=== PATIENT | female | born 1950 | race Caucasian/White ===

== ENCOUNTER 2021-04-09 13:44 | Emergency (ER) | payer MEDICARE, OTHER, SELFPAY ==
[2021-04-09 13:51] VITALS: BP 143/83; PULSE 114; RESP 16; TEMP 35.9; O2SAT 99; BMI 25.3
--- NOTE | 2021-04-09 14:45 | EKG12_ITS ---
Test Reason : DIZZINESS Blood Pressure : / mmHG Vent. Rate : 073 BPM Atrial Rate : 073 BPM P-R Int : 148 ms QRS Dur : 086 ms QT Int : 392 ms P-R-T Axes : 036 000 040 degrees QTc Int : 431 ms Normal sinus rhythm Low voltage QRS (Limb Leads) Confirmed by MARTIN WELSH, MARS ([id number]), social media editor RANCHO JULIAN ([id number]) on 04/13/2021 9:24:51 AM Referred By: BRANDEN Confirmed By:MARS SALAZAR MD
--- NOTE | 2021-04-09 14:46 | EX.ED.DYSGE1 ---
HPI History of Present Illness Chief Complaint: Dizziness Informant: patient Onset/Context/Timing Onset: Days (Approximately 10 days) Narrative Narrative: Patient presents with multiple complaints. She just moved from [place] to [place] 3 days ago. She reports a 10-day history of feeling lightheaded and dizzy. She reports a 20 pound weight loss and states that she has been eating well. She has noted increased urine output. She is on Lasix twice a day and this is unchanged. She complains of body pain. She denies fever, cough, congestion. Patient does state that she was packing boxes and carrying things heavier than what she should've been doing. [facility] Medical History (Updated 04/09/21 @ 16:[address] Beryl Wilde MD) Asthma Atrial fibrillation Diabetes Hypertension Allergy/AdvReac Type Severity Reaction Status Date / Time No Known Allergies Allergy Verified 04/09/21 15:09 Social History Smoking Status: Unknown if ever smoked ROS ROS ED Constitutional Constitutional ED: Denies chills or fever(s) Eyes Eyes: Denies change in vision ENT ENT ED: Denies sore throat Cardiovascular Cardiovascular: Denies chest pain Respiratory/Chest Respiratory/Chest: Reports dyspnea; Denies cough Gastrointestinal Gastrointestinal: Denies abdominal pain, diarrhea, nausea or vomiting Genitourinary Genitourinary ED: Denies dysuria Musculoskeletal Musculoskeletal: Reports arthralgias and myalgias; Denies back pain Integumentary Denies rash Neurologic Neurologic: Reports weakness; Denies headache(s) Allergic/Immunologic Allergic/Immunologic ED: Denies urticaria EXAM Physical Exam Const Vital Signs: 04/09/21 13:51 04/09/21 15:10 04/09/21 16:00 Temperature 96.6 F L Temperature Source Temporal Pulse Rate 114 H 71 Respiratory Rate 16 18 Respiratory Effort Short of Breath Blood Pressure 143/83 H 103/72 Blood Pressure Mean 103 82 Pulse Ox 99 93 Oxygen Delivery Method Room Air Room Air Positive well nourished and well developed General Appearance ED: well developed HEENT Reports normocephalic and head/scalp atraumatic Eyes PERRL and EOMs intact bilaterally Neck supple Chest Wall inspection of chest normal and palpation of chest normal Resp normal respiratory effort and clear to auscultation bilaterally Cardio regular rate and regular rhythm GI normal to inspection, nondistended, normoactive bowel sounds and non-tender Palpation: soft Extremity Extremity Narrative: Chronic venous skin changes to the bilateral lower extremity with no evidence of acute infection. No significant edema. No calf tenderness on exam. Neuro oriented x3 and no sensory deficits noted Sensorium / Orientation: alert Motor Exam: strength 5/5 throughout Psych mental status grossly normal Skin no rashes or lesions noted MDM MDM MDM Narrative Medical decision making narrative: Patient is placed on monitoring engineer. EKG, lab work, urinalysis obtained. Covid swab ordered. Lab Data Attestation: I reviewed the patient's lab results. Labs: Laboratory Results - last 24 hr 04/09/21 04/09/21 04/09/21 14:55 14:55 15:36 WBC 9.5 RBC 4.85 Hgb 13.9 Hct 42.9 MCV 88.5 MCH 28.7 MCHC 32.4 RDW Std Deviation 41.7 RDW Coeff of Dave 12.8 Plt Count 321 MPV 9.1 Immature Gran % (Auto) 0.200 Neut % (Auto) 75.8 H Lymph % (Auto) 15.[address] [facility] % (Auto) 7.6 Eos % (Auto) 0.4 Baso % (Auto) 0.4 Absolute Neuts (auto) 7.2 Absolute Lymphs (auto) 1.49 Nucleated RBC % 0 Sodium 136 Potassium 3.8 Chloride 100 Carbon Dioxide 30.0 Anion Gap 6 BUN 20 H Creatinine 0.91 Estim Creat Clear Calc 55.39 Est GFR (MDRD) Af Amer 79 Est GFR (MDRD) Non-Af 65 BUN/Creatinine Ratio 22.0 H Glucose 130 H Calcium 9.2 Total Bilirubin 0.30 Direct Bilirubin 0.09 AST 16 ALT 22 Alkaline Phosphatase 112 Total Protein 8.0 Albumin 3.7 Globulin 4.3 H Urine Color Yellow Urine Clarity Sl. Cloudy Urine pH 7.0 Ur Specific [place] 1.010 Urine Protein Negative Urine Glucose (UA) Normal Urine Ketones Negative Urine Occult Blood Negative Urine Nitrite Negative Urine Bilirubin Negative Urine Urobilinogen Normal Ur Leukocyte Esterase 25 H Urine RBC 0 SEEN Urine WBC 0-5 SEEN Ur Squamous Epith Cells 0 SEEN Urine Bacteria 0 SEEN Urine Mucus 0 SEEN Rapid Covid test negative. EKG Initial EKG: Attestation: I personally reviewed and interpreted this EKG as follows: Interpretation: Sinus Rhythm (Sinus at 73 with no acute ischemia.) Treatment and Re-Evaluation Comments:: Repeat evaluation patient resting comfortably. Test results discussed with her and she is reassured with these findings. She is scheduled to see Dr. Ludwig to establish local primary care. She is now complaining of a mild migraine. Should be given a small dose of Toradol and Benadryl prior to discharge. She is currently taking Tylenol No. 4. I cautioned her to try to avoid codeine or any other narcotic when treating headaches as this will likely cause a rebound headache. Discharge Plan Triage Chief Complaint: Dizziness ED Provider: Beryl Wilde Dx/Rx/DC Orders Clinical Impression: Weakness Instructions: ED Weakness (Uncertain Cause) Primary Care Provider: Care Physician,No Primary Referrals: Jazzy Ludwig MD [STAFF PHYSICIAN] - Keep Lisa appointment Care Physician,No Primary [Primary Care Provider] - Disposition Disposition: Home, Self Care
[2021-04-09 15:09] LABS: Absolute Lymphocyte Count 1.49 X10^3/uL (0.83-4.51); Absolute Neutrophil Count 7.2 X10^3/uL (2.0-7.7); Basophil# 0.04 X10^3/uL; Basophil% 0.4 % (0-1); Eosinophil# 0.04 X10^3/uL; Eosinophils% 0.4 % (0-5); Hematocrit 42.9 % (37-47); Hemoglobin 13.9 g/dL (12.0-15.0); Lymphocyte # 1.49 X10^3/ul (0.83-4.51); Lymphocyte % 15.6 % (19-41); Mean Corp Hgb Conc 32.4 g/dL (32-36); Mean Corpuscular Hgb 28.7 pg (27.0-32.0); Mean Corpuscular Volume 88.5 fL (81-99); Mean Platelet Vol. 9.1 fl (6.2-12.0); Monocyte# 0.72 X10^3/uL; Monocyte% 7.6 % (0-10); NRBC Flagged by Analyzer 0 % (0-5); Neutrophil # 7.22 X10^3/uL (2.7-7.7); Neutrophil % 75.8 % (47-70); Platelet Count 321 K/mm3 (150-450); RBC Distribution Width CV 12.8 % (11.6-14.6); RBC Distribution Width SD 41.7 fl (35.1-43.9); Red Blood Count 4.85 M/mm3 (4.2-5.4); White Blood Count 9.5 K/mm3 (4.4-11.0)
[2021-04-09 15:28] LABS: AST(SGOT) 16 U/L (15-37); Alanine Aminotransfer ALT/SGPT 22 U/L (13-56); Albumin, Serum 3.7 g/dL (3.2-5.0); Alkaline Phosphatase 112 U/L (45-117); Anion Gap 6 (5-15); BUN 20 mg/dL (7-18); Bilirubin, Direct 0.09 mg/dL (0.00-0.30); Calcium,Total 9.2 mg/dL (8.5-10.1); Chloride 100 mmol/L (98-107); Creatinine, Serum 0.91 mg/dL (0.55-1.02); EST Glomerular Filtration Rate 65 mL/min (>60); Est Glom Filt Rate - Afr Amer 79 mL/min (>60); Estimated Creatinine Clearance 55.39 ml/min; Globulin 4.3 g/dL (2.2-4.2); Glucose 130 mg/dL (74-106); Potassium 3.8 mmol/L (3.5-5.1); Sodium Level 136 mmol/L (136-145)
[2021-04-09 15:50] LABS: Bacteria 0 SEEN /hpf (None Seen); Mucous, Urine 0 SEEN /hpf (<or=2+); Red Blood Cells-Urine 0 SEEN /hpf (0-5); Squamous Epithelial Cells - UA 0 SEEN /hpf (5-10)
[2021-04-09 15:56] LABS: Color, Urine Yellow (Yellow); Glucose, Dipstick Normal (Normal); Ketone-Dipstick Negative (Negative); Leukocyte Esterase-Dipstick 25 /ul (Negative); Nitrite-Dipstick Negative (Negative); Occult Blood-Urine Negative /ul (Negative); Protein-Dipstick Negative (Negative); Urine Bilirubin Dipstick Negative (Negative); Urine Clarity Sl. Cloudy (Clear); Urine Urobilinogen Normal (Normal)
[2021-04-09 16:00] VITALS: BP 103/72; PULSE 71; RESP 18; O2SAT 93
[2021-04-09 16:16] LABS: White Blood Cells 0-5 SEEN /hpf (0-5)
[2021-04-09] MEDS: DiphenhydrAMINE 50 MG/ML Syringe 12.5 MG IV (16:53)
[2021-04-09] MEDS: Ketorolac 15 MG/ML Vial IV (16:53)
[2021-04-09 17:22] VITALS: BP 127/88; PULSE 70; RESP 16
== END 2021-04-09 17:30 | disposition home or self-care (01) ==
PROVIDERS: Emergency Provider Emergency Medicine
DX: R53.1 Weakness (principal); J45.909 Unspecified asthma, uncomplicated; I48.91 Unspecified atrial fibrillation; E11.9 Type 2 diabetes mellitus without complications; I10 Essential (primary) hypertension
CPT/HCPCS: 80048; 80076; 81001; 85025; 87426; 93005; 96374; 96375; 99284; A4216

== ENCOUNTER → 2021-05-05 15:25 | Outpatient (CLI) | payer MEDICARE, OTHER, SELFPAY ==
[2021-05-05 17:39] LABS: Amphetamine Urine VISTA NEGATIVE (<1000 ng/mL); Barbiturate Urine VISTA NEGATIVE (< 200 ng/mL); Benzodiazepine Urine VISTA NEGATIVE (< 200 ng/mL); Cocaine Urine VISTA NEGATIVE (< 300 ng/mL); Ecstacy Urine VISTA NEGATIVE (< 500 ng/mL); Methadone Urine VISTA NEGATIVE (< 300 ng/mL); PCP Urine VISTA NEGATIVE (< 25 ng/mL); THC Urine VISTA NEGATIVE (< 50 ng/mL); Vista UDS pH Range 7
== END ==
PROVIDERS: Visit Provider Anesthesiology Pain Medicine
DX: F11.20 Opioid dependence, uncomplicated (principal)
CPT/HCPCS: 80307

== ENCOUNTER 2021-06-16 18:11 | Emergency (ER) | payer MEDICARE, OTHER, SELFPAY ==
[2021-06-16 18:13] VITALS: BP 134/94; PULSE 121; RESP 16; TEMP 37.4; O2SAT 99; BMI 26.7
--- NOTE | 2021-06-16 19:07 | EKG12_ITS ---
Test Reason : NAUSEA Blood Pressure : / mmHG Vent. Rate : 102 BPM Atrial Rate : 102 BPM P-R Int : 134 ms QRS Dur : 086 ms QT Int : 346 ms P-R-T Axes : 033 -15 043 degrees QTc Int : 450 ms Sinus tachycardia Inferior infarct , age undetermined ,cannot be excluded Abnormal ECG Low voltage QRS (limb leads) Poor R wave Progression Confirmed by MARTIN WELSH, MARS ([id number]), editorial assistant SAW TROY ([id number]) on 06/17/2021 10:58:03 AM Referred By: NIKKI TRAVIS Confirmed By:MARS SALAZAR MD
--- NOTE | 2021-06-16 19:20 | RAD_ITS ---
INDICATION: chest pain EXAMINATION/TECHNIQUE: X-RAY - XR Chest 1 View COMPARISON: None. FINDINGS: LINES/DEVICES: None. LUNGS: Symmetric normal lung volumes. No airspace opacity or abnormal interstitial pattern. No nodule or mass. No pleural effusion or pneumothorax. MEDIASTINUM AND CARDIOVASCULAR STRUCTURES: Normal size and contour of the cardiomediastinal silhouette. No evidence of pulmonary vascular congestion. BONES AND SOFT TISSUES: Lateral curvature, convex left thoracolumbar spine. Moderate degenerative disc and endplate changes. No fracture or focal osseous lesion. Cholecystectomy surgical clips. RAD/Chest 1 View (Portable) IMPRESSION: 1. No radiographic evidence of acute cardiopulmonary disease. Electronically Signed: Donis Ochoa DO at 22:09 EST Tel , Service support ,
[2021-06-16 19:25] LABS: Absolute Lymphocyte Count 2.11 X10^3/uL (0.83-4.51); Absolute Neutrophil Count 8.2 X10^3/uL (2.0-7.7); Basophil# 0.06 X10^3/uL; Basophil% 0.5 % (0-1); Eosinophil# 0.02 X10^3/uL; Eosinophils% 0.2 % (0-5); Hematocrit 47.4 % (37-47); Hemoglobin 15.3 g/dL (12.0-15.0); Lymphocyte # 2.11 X10^3/ul (0.83-4.51); Lymphocyte % 18.6 % (19-41); Mean Corp Hgb Conc 32.3 g/dL (32-36); Mean Corpuscular Hgb 28.3 pg (27.0-32.0); Mean Corpuscular Volume 87.6 fL (81-99); Mean Platelet Vol. 8.8 fl (6.2-12.0); Monocyte# 0.85 X10^3/uL; Monocyte% 7.5 % (0-10); NRBC Flagged by Analyzer 0 % (0-5); Neutrophil # 8.24 X10^3/uL (2.7-7.7); Neutrophil % 72.8 % (47-70); Platelet Count 314 K/mm3 (150-450); RBC Distribution Width CV 13.1 % (11.6-14.6); RBC Distribution Width SD 42.3 fl (35.1-43.9); Red Blood Count 5.41 M/mm3 (4.2-5.4); White Blood Count 11.3 K/mm3 (4.4-11.0)
[2021-06-16 19:43] LABS: Anion Gap 12 (5-15); BUN 19 mg/dL (7-18); BUN/Creat Ratio 18.6 RATIO (10-20); Calcium,Total 10.5 mg/dL (8.5-10.1); Chloride 101 mmol/L (98-107); Creatinine, Serum 1.02 mg/dL (0.55-1.02); EST Glomerular Filtration Rate 57 mL/min (>60); Est Glom Filt Rate - Afr Amer 69 mL/min (>60); Estimated Creatinine Clearance 44.95 ml/min; Glucose 99 mg/dL (74-106); Potassium 3.8 mmol/L (3.5-5.1); Sodium Level 138 mmol/L (136-145); Troponin-I HS 7 pg/mL (3.0-54.0)
--- NOTE | 2021-06-16 20:21 | ED.VIS.GI ---
HPI HPI - GI History of Present Illness Chief Complaint: Nausea/Vomiting Informant: patient Abdominal Pain/Flank Pain Onset: Weeks Context: Gradual Onset Timing: Intermittent Quality: Cramping Current Severity: Mild Maximum Severity: Mild Worsened by: Nothing Relieved by: Nothing Nausea/Vomiting/Emesis GI Symptom: Positive for Nausea and Vomiting Onset: Days Quality: Negative for Blood streaks and Coffee ground Diarrhea/Melena/Hematochezia GI Symptom: Negative for Diarrhea, Melena and Hematochezia Associated Symptoms Associated Symptoms: Negative for Dysuria, Frequency, Hematuria and Urgency Narrative Narrative: 71-year-old female history of A. fib, hypertension, diabetes and renal insufficiency. States she has not felt well for the last 2 weeks. Symptoms began around May 28. States she had an ear infection was treated with a Z-Melvin. She thinks this caused her irritation of her stomach. Said it feels like when she had gastritis or colitis when she was 22 years old. Since that time she has had nausea and dry heaves. Denies any diarrhea no fever. Denies any dysuria. Prior similar symptoms: Yes Recent Illness/Hospitalization: No PFSH PFSH Medical History Arthritis Asthma Atrial fibrillation Diabetes Hypertension SOB (shortness of breath) Home Medications azithromycin 250 mg tablet See Rx Instructions PO .COMPLEX #6 tab 05/28/21 [Rx Last Taken Unknown] Allergy/AdvReac Type Severity Reaction Status Date / Time Sulfa (Sulfonamide Allergy Unknown unknown Verified 06/16/21 18:18 Antibiotics) Family History Other Cancer Diabetes Heart disease Social History Smoking Status: Former smoker ROS ROS ED ROS Narrative Abdominal pain. Nausea and dry heaves. Review of Systems ROS Unobtainable: Denies due to encephalopathy Constitutional Constitutional ED: Denies chills or fever(s) ENT ENT ED: Denies ear pain Cardiovascular Cardiovascular: Denies chest pain or palpitations Respiratory/Chest Respiratory/Chest: Denies cough or dyspnea Gastrointestinal Gastrointestinal: Reports abdominal pain, nausea and vomiting; Denies constipation or diarrhea Genitourinary Genitourinary ED: Denies dysuria or hematuria Musculoskeletal Musculoskeletal: Denies myalgias Integumentary Denies rash Neurologic Neurologic: Denies headache(s) Psychiatric Psychiatric: Denies depression Endocrine Endocrinology: Denies polyuria Hematologic/Lymphatic Hematologic/Lymphatic: Denies easy bruising Allergic/Immunologic Allergic/Immunologic ED: Denies urticaria EXAM Physical Exam Narrative Exam Narrative: 71-year-old female no acute distress. Vital signs are stable. She does not look septic or toxic. HEENT exam unremarkable. Neck nontender no lymphadenopathy. Lungs clear to auscultation. CV tachycardia rate about 102. Abdomen soft. Diffusely tender. No peritoneal signs. No signs of obstruction. No mass or pulsatile mass. She has had a prior hysterectomy, cholecystectomy and appendectomy. Moving all 4 extremities. No edema. Neurologically she is awake alert with no focal motor deficits. Back nontender. Skin unremarkable. Const Vital Signs: 06/16/21 18:13 06/16/21 20:47 06/16/21 21:46 Temperature 99.4 F H Temperature Source Oral Pulse Rate 121 H 109 H 91 Respiratory Rate 16 18 16 Blood Pressure 134/94 H 154/80 H 121/66 H Blood Pressure Mean 107 104 84 Pulse Ox 99 96 96 Oxygen Delivery Method Room Air Room Air Room Air Positive well nourished and well developed; Negative for contractures or unkempt General Appearance ED: well developed and NAD; Negative for unkempt, contractures or pallor HEENT Reports dry mucous membranes normocephalic and atraumatic Mouth ED: Yes dry mucous membranes Mouth: dry mucous membranes Eyes PERRL and EOMs intact bilaterally Neck no lymphadenopathy, supple and no JVD General: Negative for tenderness Resp normal respiratory effort and clear to auscultation bilaterally Auscultation: Negative for rales, rhonchi or wheezes Cardio regular rhythm, S1 normal heart sound, S2 normal heart sound and no murmurs Rate: tachycardic GI non-distended and no masses; Negative for non-tender Inspection: Negative for abdominal distention Auscultation: normoactive bowel sounds; Negative for hyperactive bowel sounds or hypoactive bowel sounds Palpation: soft and tender; Negative for guarding, rigid or rebound tenderness present Back/Spine no CVA tenderness General Back: Negative for CVA tenderness Extremity full ROM General Extremety ED: Negative for edema or tenderness General Extremity: Negative for edema Neuro moves all extremities Sensorium / Orientation: alert, oriented to person, oriented to place and oriented to time; Negative for orientation impaired, confused, lethargic or stuporous Motor Exam: strength 5/5 throughout Psych mental status grossly normal and thought process normal Appearance: Negative for unkempt Attitude: No agitated Mood & Affect: Negative for depressed or tearful Skin no wounds General Skin Exam: Negative for jaundice or pallor Lesions: no lesions Rashes: no rashes MDM MDM MDM Narrative Medical decision making narrative: Older female nausea vomiting for 2 weeks. Has diffuse nonspecific abdominal tenderness. Will be treated with IV fluids. Zofran. Labs and CT are pending. Patient's had a prior appendectomy, cholecystectomy and hysterectomy. Repeat exam patient doing well at 9:59 PM. Abdomen benign. Patient doing well. Awaiting CAT scan results. Repeat exam patient doing well at 10:25 PM. CAT scans unremarkable she will be discharged home. Lab Data Attestation: I reviewed the patient's lab results. Lab results narrative: CBC shows white count 9.3 hemoglobin of 15. 314 platelets. Electrolytes unremarkable gap of 12 BUN 19 and creatinine of 1. Glucose 99. Liver enzymes unremarkable. Troponin normal at 7. Urinalysis shows 5-10 white cells but no nitrites and no red cells nor bacteria. Labs: Laboratory Results - last 24 hr 06/16/21 06/16/21 06/16/21 19:15 19:15 19:15 WBC 11.3 H RBC 5.41 H Hgb 15.3 H Hct 47.4 H MCV 87.6 MCH 28.3 MCHC 32.3 RDW Std Deviation 42.3 RDW Coeff of Dave 13.1 Plt Count 314 MPV 8.8 Immature Gran % (Auto) 0.400 Neut % (Auto) 72.8 H Lymph % (Auto) 18.6 L [place] % (Auto) 7.5 Eos % (Auto) 0.2 Baso % (Auto) 0.5 Absolute Neuts (auto) 8.2 H Absolute Lymphs (auto) 2.11 Nucleated RBC % 0 Sodium 138 Potassium 3.8 Chloride 101 Carbon Dioxide 25.0 Anion Gap 12 BUN 19 H Creatinine 1.02 Estim Creat Clear Calc 44.95 Est GFR (MDRD) Af Amer 69 Est GFR (MDRD) Non-Af 57 L BUN/Creatinine Ratio 18.6 Glucose 99 Calcium 10.5 H Total Bilirubin 0.30 Direct Bilirubin 0.12 AST 25 ALT 28 Alkaline Phosphatase 126 H Troponin I High Sens 7 Total Protein 8.4 H Albumin 4.0 Globulin 4.4 H Lipase Urine Color Urine Clarity Urine pH Ur Specific [place] Urine Protein Urine Glucose (UA) Urine Ketones Urine Occult Blood Urine Nitrite Urine Bilirubin Urine Urobilinogen Ur Leukocyte Esterase Urine RBC Urine WBC Ur Squamous Epith Cells Urine Bacteria Hyaline Casts Urine Mucus 06/16/21 06/16/21 19:15 20:55 WBC RBC Hgb Hct MCV MCH MCHC RDW Std Deviation RDW Coeff of Dave Plt Count MPV Immature Gran % (Auto) Neut % (Auto) Lymph % (Auto) [place] % (Auto) Eos % (Auto) Baso % (Auto) Absolute Neuts (auto) Absolute Lymphs (auto) Nucleated RBC % Sodium Potassium Chloride Carbon Dioxide Anion Gap BUN Creatinine Estim Creat Clear Calc Est GFR (MDRD) Af Amer Est GFR (MDRD) Non-Af BUN/Creatinine Ratio Glucose Calcium Total Bilirubin Direct Bilirubin AST ALT Alkaline Phosphatase Troponin I High Sens Total Protein Albumin Globulin Lipase 69 L Urine Color Yellow Urine Clarity Clear Urine pH 5.0 Ur Specific [place] 1.020 Urine Protein Negative Urine Glucose (UA) Normal Urine Ketones 15 H Urine Occult Blood Negative Urine Nitrite Negative Urine Bilirubin Negative Urine Urobilinogen Normal Ur Leukocyte Esterase 500 H Urine RBC 0 SEEN Urine WBC 5-10 SEEN Ur Squamous Epith Cells 0 SEEN Urine Bacteria 0 SEEN Hyaline Casts 0-5 SEEN Urine Mucus 0 SEEN Radiography Diagnostic Testing: Clinical Impression(s) from Imaging Studies Chest X-Ray 06/16/21 19:20 IMPRESSION: 1. No radiographic evidence of acute cardiopulmonary disease. Electronically Signed: Donis Ochoa DO at 22:09 EST Tel , Service support , Abdomen/Pelvis CT 06/16/21 20:54 IMPRESSION: At least mild intrahepatic biliary ductal dilation with normal diameter common bile duct and no pancreatic ductal dilation. Correlate clinically for obstructive biliary pattern. Consider further evaluation with MRCP. Diverticulosis without diverticulitis. No other evidence of acute intra-abdominal pathology. Electronically Signed: Donis Ochoa DO at 22:20 EST Tel , Service support , Rhythm Strip Rhythm Strip: Sinus Rhythm Rate: 102 Ectopy: None EKG Initial EKG: Attestation: I personally reviewed and interpreted this EKG as follows: Interpretation: No Acute Injury Pattern and Sinus Tachycardia Comments: Sinus tachycardia rate of 102 no acute signs of CT nor ischemia. Discharge Plan Triage Chief Complaint: Nausea/Vomiting ED Provider: Nicolás Penn Dx/Rx/DC Orders Clinical Impression: Abdominal pain Instructions: Abdominal Pain Prescriptions: No Action azithromycin 250 mg tablet See Rx Instructions PO .COMPLEX Qty: 6 RF: 0 Primary Care Provider: Care Physician,No Primary Referrals: Anthony Terry MD [STAFF PHYSICIAN] - 3-5 Days Care Physician,No Primary [Primary Care Provider] - Activity Restrictions/Additional Instructions: Your blood work and CAT scan were unremarkable. Plenty of fluids and rest. Follow-up with your doctor if not improving or return if feeling worse. Disposition Disposition: Home, Self Care
[2021-06-16] MEDS: Ondansetron 4 MG/2 ML Vial IV (20:45)
[2021-06-16] MEDS: 0.9% Normal Saline 1,000 ML 999 ML IV (20:45)
[2021-06-16 20:47] VITALS: BP 154/80; PULSE 109; RESP 18; O2SAT 96; O2SAT 98
[2021-06-16 20:53] LABS: Lipase 69 U/L (73-393)
--- NOTE | 2021-06-16 20:54 | CT_ITS ---
INDICATION: abd pain EXAMINATION: CT ABDOMEN AND PELVIS WITH CONTRAST - CT Abdomen And Pelvis W/ Contrast Injection TECHNIQUE: Helically acquired images were obtained of the abdomen and pelvis following IV contrast. A radiation dose optimization technique was used for this scan. IV Contrast dosage and agent: 100 cc of [id number]. Oral contrast: None. COMPARISON: None. FINDINGS: LOWER CHEST: Lung bases are clear. No cardiomegaly or pericardial effusion. LIVER: Homogeneous. No focal mass. GALLBLADDER AND BILIARY TREE: Absent gallbladder. There is at least mild intrahepatic biliary ductal dilation. Visualized common bile duct appears to be within normal limits. PANCREAS: No focal cystic or solid mass. No ductal dilation. SPLEEN: Normal size without focal cystic or solid mass. ADRENAL GLANDS: No nodules. KIDNEYS AND URETERS: Normal renal size and position. No hydronephrosis. PERITONEUM: No ascites or free air. No other fluid collection. BOWEL: No evidence of acute appendicitis. No stomach or bowel distension. Diverticuli seen in the sigmoid colon. No diverticulitis. LYMPH NODES: No enlarged mesenteric or retroperitoneal lymph nodes. VESSELS: Moderate atherosclerosis abdominal aorta. No aneurysmal dilation or significant stenosis. URINARY BLADDER: Mostly collapsed, poorly evaluated. REPRODUCTIVE ORGANS: Likely surgically absent versus atrophic. ABDOMINAL WALL: No discrete abdominal or pelvic wall hernia. BONES: Dextroscoliotic curvature lumbar spine with associated moderately advanced degenerative disc and endplate changes. There is also moderate facet arthropathy. L4-5 disc protrusion and central canal stenosis. CT/Abdomen/Pelvis W IV Cont ONLY IMPRESSION: At least mild intrahepatic biliary ductal dilation with normal diameter common bile duct and no pancreatic ductal dilation. Correlate clinically for obstructive biliary pattern. Consider further evaluation with MRCP. Diverticulosis without diverticulitis. No other evidence of acute intra-abdominal pathology. Electronically Signed: Donis Ochoa DO at 22:20 EST Tel , Service support ,
[2021-06-16 20:56] LABS: AST(SGOT) 25 U/L (15-37); Alanine Aminotransfer ALT/SGPT 28 U/L (13-56); Alkaline Phosphatase 126 U/L (45-117); Bilirubin, Direct 0.12 mg/dL (0.00-0.30); Globulin 4.4 g/dL (2.2-4.2); Protein, Total 8.4 g/dL (6.4-8.2)
[2021-06-16 20:57] LABS: Bacteria 0 SEEN /hpf (None Seen); Mucous, Urine 0 SEEN /hpf (<or=2+); Red Blood Cells-Urine 0 SEEN /hpf (0-5); Squamous Epithelial Cells - UA 0 SEEN /hpf (5-10)
[2021-06-16 21:14] LABS: Color, Urine Yellow (Yellow); Glucose, Dipstick Normal (Normal); Ketone-Dipstick 15 mg/dl (Negative); Leukocyte Esterase-Dipstick 500 /ul (Negative); Nitrite-Dipstick Negative (Negative); Occult Blood-Urine Negative /ul (Negative); Protein-Dipstick Negative (Negative); Urine Bilirubin Dipstick Negative (Negative); Urine Clarity Clear (Clear); Urine Urobilinogen Normal (Normal)
[2021-06-16 21:21] LABS: Hyaline Cast 0-5 SEEN /lpf (0-5); White Blood Cells 5-10 SEEN /hpf (0-5)
[2021-06-16 21:46] VITALS: BP 121/66; PULSE 91; RESP 16; O2SAT 96
== END 2021-06-16 22:45 | disposition home or self-care (01) ==
PROVIDERS: Emergency Provider Emergency Medicine; Visit Provider Emergency Medicine
DX: R10.9 Unspecified abdominal pain (principal); I48.91 Unspecified atrial fibrillation; E11.9 Type 2 diabetes mellitus without complications; R11.2 Nausea with vomiting, unspecified; I10 Essential (primary) hypertension; Z87.891 Personal history of nicotine dependence; M19.90 Unspecified osteoarthritis, unspecified site; J45.909 Unspecified asthma, uncomplicated; Z90.49 Acquired absence of other specified parts of digestive tract
CPT/HCPCS: 71045; 74177; 80048; 80076; 81001; 83690; 84484; 85025; 93005; 96361; 96374; 99284; J7030; Q9967; J2405

== ENCOUNTER 2021-06-25 13:49 | Emergency (ER) | payer MEDICARE, OTHER, SELFPAY ==
[2021-06-25 13:49] VITALS: BP 134/62; PULSE 119; RESP 18; TEMP 36.8; O2SAT 98; BMI 25.7
--- NOTE | 2021-06-25 14:13 | RAD_ITS ---
STUDY: X-RAY CHEST REASON FOR EXAM: Female, 71 years old. Weakness TECHNIQUE: Single AP portable view of the chest. COMPARISON: Comparison is made with prior study dated 06/16/2019. FINDINGS: The lungs are clear and expanded. There is no demonstrated pleural abnormality. Normal size heart. Normal mediastinum and lorenzo. Normal visualized pulmonary arteries. There is atherosclerotic tortuosity of the aortic arch and descending thoracic aorta. There is a levoscoliosis of the thoracic spine. Normal visualized ribs, clavicles, and shoulders. There is no demonstrated abnormality of the visualized soft tissue structures of the upper abdomen. RAD/Chest 1 View (Portable) IMPRESSION: No acute abnormality is seen. Electronically Signed: Gus Ragland MD at 15:03 EST , Service support ,
--- NOTE | 2021-06-25 14:13 | EKG12_ITS ---
Test Reason : FALL Blood Pressure : / mmHG Vent. Rate : 114 BPM Atrial Rate : 114 BPM P-R Int : 146 ms QRS Dur : 086 ms QT Int : 330 ms P-R-T Axes : 043 006 048 degrees QTc Int : 454 ms Sinus tachycardia with occasional Premature ventricular complexes Low voltage QRS (Limb Leads) Confirmed by MARTIN WELSH, MARS ([id number]), make up editor RANCHO JULIAN ([id number]) on 06/28/2021 11:06:07 AM Referred By: CINDY Confirmed By:MARS SALAZAR MD
[2021-06-25 14:41] LABS: Color, Urine Yellow (Yellow); Glucose, Dipstick Normal (Normal); Leukocyte Esterase-Dipstick 500 /ul (Negative); Nitrite-Dipstick Negative (Negative); Occult Blood-Urine 10 /ul (Negative); Protein-Dipstick 30 mg/dl (Negative); Urine Bilirubin Dipstick Negative (Negative); Urine Clarity Cloudy (Clear); Urine Urobilinogen 1 mg/dl (Normal)
[2021-06-25 14:42] LABS: Absolute Lymphocyte Count 1.97 X10^3/uL (0.83-4.51); Absolute Neutrophil Count 10.1 X10^3/uL (2.0-7.7); Basophil# 0.07 X10^3/uL; Basophil% 0.5 % (0-1); Eosinophil# 0.02 X10^3/uL; Eosinophils% 0.2 % (0-5); Hematocrit 46.4 % (37-47); Hemoglobin 14.8 g/dL (12.0-15.0); Lymphocyte # 1.97 X10^3/ul (0.83-4.51); Lymphocyte % 14.9 % (19-41); Mean Corp Hgb Conc 31.9 g/dL (32-36); Mean Corpuscular Hgb 28.1 pg (27.0-32.0); Monocyte# 0.97 X10^3/uL; Monocyte% 7.4 % (0-10); NRBC Flagged by Analyzer 0 % (0-5); Neutrophil % 76.5 % (47-70); Platelet Count 354 K/mm3 (150-450); RBC Distribution Width CV 13.3 % (11.6-14.6); Red Blood Count 5.27 M/mm3 (4.2-5.4); White Blood Count 13.2 K/mm3 (4.4-11.0)
[2021-06-25 14:53] LABS: Ketone-Dipstick 150 mg/dl (Negative)
[2021-06-25 14:54] LABS: Bacteria 2+ /hpf (None Seen); Red Blood Cells-Urine 0-5 SEEN /hpf (0-5); Squamous Epithelial Cells - UA 0-5 SEEN /hpf (5-10); White Blood Cells 25-50 SEEN /hpf (0-5)
[2021-06-25 14:55] LABS: Mucous, Urine RARE /hpf (<or=2+)
[2021-06-25 14:59] LABS: ALB/GLOB Ratio 1.1 RATIO (0.9-2.4); AST(SGOT) 28 U/L (15-37); Alanine Aminotransfer ALT/SGPT 29 U/L (13-56); Alkaline Phosphatase 116 U/L (45-117); BUN 16 mg/dL (7-18); BUN/Creat Ratio 14.8 RATIO (10-20); Calcium,Total 9.6 mg/dL (8.5-10.1); Chloride 100 mmol/L (98-107); Creatinine, Serum 1.08 mg/dL (0.55-1.02); EST Glomerular Filtration Rate 53 mL/min (>60); Est Glom Filt Rate - Afr Amer 65 mL/min (>60); Estimated Creatinine Clearance 42.45 ml/min; Globulin 3.8 g/dL (2.2-4.2); Glucose 94 mg/dL (74-106); Potassium 3.5 mmol/L (3.5-5.1); Protein, Total 7.8 g/dL (6.4-8.2); Sodium Level 138 mmol/L (136-145); Troponin-I HS 8 pg/mL (3.0-54.0)
[2021-06-25 15:00] LABS: Anion Gap 15 (5-15)
--- NOTE | 2021-06-25 15:10 | EX.ED.DYSGE1 ---
HPI History of Present Illness Chief Complaint: Fatigue Narrative Narrative: 71-year-old female presenting with generalized weakness. She states has been like this for weeks. She was seen in the emergency room a couple of weeks ago and ultimately discharged home with a negative work-up. She states that she has intermittent episodes of nausea and vomiting. She is able to eat some toast and applesauce. She states she does not go to the store because her legs have been too weak since May of last year. Patient states her roommate goes to the store and buys her food but it usually for the microwave. She also relates that the microwave outlet is broken and they have not run an extension cord to the microwave because the 1 that they have is going to the freezer to keep that cold. [facility] Medical History Arthritis Asthma Atrial fibrillation Diabetes Hypertension SOB (shortness of breath) Home Medications azithromycin 250 mg tablet See Rx Instructions PO .COMPLEX #6 tab 05/28/21 [Rx Last Taken Unknown] cephalexin 500 mg PO Q12 #14 capsule 06/25/21 [Rx Last Taken Unknown] ondansetron 4 mg PO Q8H PRN PRN #20 tab 06/25/21 [Rx Last Taken Unknown] Allergy/AdvReac Type Severity Reaction Status Date / Time Sulfa (Sulfonamide Allergy Unknown unknown Verified 06/25/21 13:53 Antibiotics) Family History Other Cancer Diabetes Heart disease Social History Smoking Status: Former smoker ROS ROS ED Constitutional Constitutional ED: Denies chills, fever(s) or sweats Eyes Eyes: Denies blurry vision or diplopia ENT ENT ED: Denies rhinorrhea or sore throat Cardiovascular Cardiovascular: Denies chest pain or palpitations Respiratory/Chest Respiratory/Chest: Denies cough or dyspnea Gastrointestinal Gastrointestinal: Reports nausea and vomiting; Denies abdominal pain Genitourinary Genitourinary ED: Denies dysuria or hematuria Musculoskeletal Musculoskeletal: Denies arthralgias or myalgias Integumentary Denies abscess or rash Neurologic Neurologic: Denies headache(s) or paresthesias EXAM Physical Exam Const Vital Signs: 06/25/21 13:49 06/25/21 14:01 Temperature 98.2 F Temperature Source Oral Pulse Rate 119 H Respiratory Rate 18 Respiratory Effort Normal Non-Labored Respiratory Pattern Normal Blood Pressure 134/62 H Blood Pressure Mean 86 Pulse Ox 98 Oxygen Delivery Method Room Air Positive well nourished General Appearance ED: NAD; Negative for pallor HEENT Reports moist mucous membranes Negative for trauma Eyes PERRL and EOMs intact bilaterally Resp normal respiratory effort and clear to auscultation bilaterally GI normal to inspection, nondistended, normoactive bowel sounds Neuro oriented x3, CN's II-XII intact bilaterally and no sensory deficits noted Sensorium / Orientation: alert Motor Exam: strength 5/5 throughout Psych mental status grossly normal Skin General Skin Exam: Negative for jaundice or pallor MDM MDM MDM Narrative Medical decision making narrative: Patient presenting with nausea and vomiting which has been intermittent over weeks. She is previously been seen in the ER and had a negative work-up. Today her EKG on my interpretation shows sinus tachycardia ventricular rate of 114 bpm without sign of ischemic change. PVCs are noted. Chest x-ray my interpretation is no acute cardiopulmonary process and the radiologist does agree. High-sensitivity troponin is 8. Patient is not having any chest pain. CBC shows slight leukocytosis at 13.2 which could be from vomiting as she vomits intermittently. Hemoglobin hematocrit are stable. Prealbumin slightly elevated at 1.08. Electrolytes are normal. Patient given 500 cc of IV fluids and Zofran. I obtained a urinalysis which shows urine ketones of 150 as well as leukocyte esterase 500, white blood cells 25-50, 2+ bacteria with 0-5 squamous epithelial cells. I will send this for culture and given the symptoms of nausea I will treat her for UTI. Patient will be started on Keflex in the emergency room. Lab Data Attestation: I reviewed the patient's lab results. Labs: Laboratory Results - last 24 hr 06/25/21 06/25/21 06/25/21 14:20 14:30 14:30 WBC 13.2 H RBC 5.27 Hgb 14.8 Hct 46.4 MCV 88.0 MCH 28.1 MCHC 31.9 L RDW Std Deviation 43.0 RDW Coeff of Dave 13.3 Plt Count 354 MPV 9.0 Immature Gran % (Auto) 0.500 Neut % (Auto) 76.5 H Lymph % (Auto) 14.9 L Stephenson % (Auto) 7.4 Eos % (Auto) 0.2 Baso % (Auto) 0.5 Absolute Neuts (auto) 10.1 H Absolute Lymphs (auto) 1.97 Nucleated RBC % 0 Sodium 138 Potassium 3.5 Chloride 100 Carbon Dioxide 23.0 Anion Gap 15 BUN 16 Creatinine 1.08 H Estim Creat Clear Calc 42.45 Est GFR (MDRD) Af Amer 65 Est GFR (MDRD) Non-Af 53 L BUN/Creatinine Ratio 14.8 Glucose 94 Calcium 9.6 Total Bilirubin 0.30 AST 28 ALT 29 Alkaline Phosphatase 116 Troponin I High Sens 8 Total Protein 7.8 Albumin 4.0 Globulin 3.8 Albumin/Globulin Ratio 1.1 Urine Color Yellow Urine Clarity Cloudy Urine pH 5.0 Ur Specific [place] 1.030 Urine Protein 30 H Urine Glucose (UA) Normal Urine Ketones 150 A* Urine Occult Blood 10 H Urine Nitrite Negative Urine Bilirubin Negative Urine Urobilinogen 1 H Ur Leukocyte Esterase 500 H Urine RBC 0-5 SEEN Urine WBC 25-50 SEEN Ur Squamous Epith Cells 0-5 SEEN Urine Bacteria 2+ Urine Mucus RARE Radiography Diagnostic Testing: Clinical Impression(s) from Imaging Studies Chest X-Ray 06/25/21 14:13 IMPRESSION: No acute abnormality is seen. Electronically Signed: Gus Raglnad MD at 15:03 EST , Service support , Discharge Plan Triage Chief Complaint: Fatigue ED Provider: Shawn Avery Dx/Rx/DC Orders Prescriptions: New cephalexin 500 mg capsule 500 mg PO Q12 Qty: 14 RF: 0 ondansetron 4 mg tablet,disintegrating 4 mg PO Q8H PRN PRN (Reason: Nausea) Qty: 20 RF: 0 No Action azithromycin 250 mg tablet See Rx Instructions PO .COMPLEX Qty: 6 RF: 0 Primary Care Provider: Care Physician,No Primary Referrals: Anthony Terry MD [STAFF PHYSICIAN] - As soon as possible Care Physician,No Primary [Primary Care Provider] - Disposition Disposition: Home, Self Care
[2021-06-25] MEDS: Cephalexin 250 MG Capsule 500 MG PO (15:36)
[2021-06-25] MEDS: Ondansetron 4 MG/2 ML Vial IV (15:36)
[2021-06-25 15:48] VITALS: BP 128/74; PULSE 81; RESP 16; O2SAT 96
--- NOTE | 2021-06-27 12:12 | ED.RN ---
pt called on monday and rx was not received or filled. according to our database it was received. pt called back today and asked for rx to be sent to [facility] to be filled. Dr Avery whom seen the patient originally was able to complete this task for the pt.
== END 2021-06-25 15:49 | disposition home or self-care (01) ==
PROVIDERS: Emergency Provider Student in an Organized Health Care Education/Training Program; Visit Provider Student in an Organized Health Care Education/Training Program
DX: R53.83 Other fatigue (principal); N39.0 Urinary tract infection, site not specified; Z87.891 Personal history of nicotine dependence
CPT/HCPCS: 71045; 80053; 81001; 84484; 85025; 87426; 93005; 96361; 96374; 99285; J7040; A4216; J2405

== ENCOUNTER 2021-07-02 13:27 | Outpatient (CLI) | payer MEDICARE, OTHER, SELFPAY ==
--- NOTE | 2021-07-02 13:45 | RAD_ITS ---
STUDY: X-RAY - LUMBAR SPINE REASON FOR EXAM: Female, 71 years old. LOW BACK PAIN BACK PAIN TECHNIQUE: XR Spine Lumbar 2 or 3 Views COMPARISON: None FINDINGS: Normal lumbar lordosis. There is a dextroscoliosis of the lumbar spine. There is a normal alignment of the vertebrae. There are multiple metallic clips in the right upper quadrant. This is consistent for a cholecystectomy. Degenerative findings of the hips. There is multilevel endplate spondylosis of the lumbar vertebrae. There is multi-level degenerative disc disease with multi-level disc space narrowing. There are atherosclerotic vascular calcifications. Stool throughout the colon. RAD/Lumbar Spine 2 or 3 Views IMPRESSION: Degenerative changes of the spine, as detailed above. Constipation Electronically Signed: Yovani Kwon MD at 14:09 EST , Service support ,
== END 2021-07-02 23:59 | disposition short-term general hospital (02) ==
LOC: RAD 13:32
PROVIDERS: Referring Provider Anesthesiology Pain Medicine; Visit Provider Anesthesiology Pain Medicine
DX: M51.17 Intervertebral disc disorders with radiculopathy, lumbosacral region (principal); M47.26 Other spondylosis with radiculopathy, lumbar region; M51.16 Intervertebral disc disorders with radiculopathy, lumbar region; M48.061 Spinal stenosis, lumbar region without neurogenic claudication; K59.00 Constipation, unspecified
CPT/HCPCS: 72100

== ENCOUNTER 2021-09-20 12:30 | Outpatient (RCR) | payer MEDICARE, OTHER, SELFPAY ==
--- NOTE | 2021-08-18 16:38 | HP.PTEVAL_ITS ---
Patient's Visit Information ABIMAEL MALDONADO is a 71 year old F referred to Physical Therapy by Dr. Marisel Carter MD with a diagnosis of BACK PAIN AND NECK PAIN. Date of Evaluation: 08/18/21 Physical Therapist: Spencer Poole, PT, Cert MDT, OCS - Visit Plan Frequency: 2x /Week Duration: 4 Weeks Plan: PT INTERVETIONS POSTURAL ,CERVICAL ROM,STRENGTHENING,DLS , BLE STRENGTHENING AND MODALTIES PRN - Subjective This 71 y/o female presents to physical therapy with neck and back pain. Patient has had LBP and cervical pain for ~ 2years without predisposing factors . Patient has symmetrical low back and cervical spine to bilateral shoulders. Pat ugo has weakness in legs. Patient seen pain management had injections in neck and back last injection in the lumbar ~ 2weeks ago. MEDS: pain pain patch, narco. Aggravating symptoms in cervical sitting ,lifting. Alleviating factors rest. Denies paresthesia/tingling. Denies KAT/tinnitus/ some dizziness. Aggravating factors standing ,sitting, lifting ,bending and walking. Bowel/bladder -. Coughing/sneezing -. Patient pain affects sleeping. Patient has no h/o trauma. Patient has no prior treatment. Patient has had x-rays scoliosis. Patient also c/o weakness in legs affects balance. Patient condition affects QOL. SOCIAL: . VOCATION: retired - Pain Bilateral Back Pain Intensity (Out of 10): 6 Pain Intensity Range: 10 Neck Pain Intensity (Out of 10): 6 Pain Intensity Range: 10 - Objective POSTURE: mild forward posture. PALAPTION: tender /UT / levator. NUERO: c/o paresthesia/tingling ,reflexes C5-6-7 1/3 ,L3-4,L4-5,LL5 S1 1/3. GAIT: reciprocal pattern unsteady. SYMMTRIES: mild scoliosis. MMT(peak force ): quads 17.8/hams 15.2,hip flexion 10.2,ankle WFL. LUMBAR ROM: flexion WFL , extension mod loss, side glides mod loss,. FLEXABLITY : hamstrings min loss. CERVICAL ROM: flexion min loss ,extension mod loss , lateral flexion min loss ,rotation mod loss. BUE MMT: 4-/5 - Special Tests C/S Radiculapathy - Left Upper limb tension test: Negative C/S Radiculapathy - Right Upper limb tension test: Negative C/S Radiculapathy - Left Spurlings: Negative C/S Radiculapathy - Right Spurlings: Negative C/S Radiculapathy - Left Cervical distraction: Negative C/S Radiculapathy - Right Cervical distraction: Negative C/S Radiculapathy - Left Relief test: Negative C/S Radiculapathy - Right Relief test: Negative Sharp Jacquelin: Positive Vertebral Artery Test: Positive Alar Ligament Test: Positive L/S Slump test left side: Negative L/S Slump test right side: Negative L/S Left Straight Leg Raise: Negative L/S Right Straight Leg Raise: Negative - Balance/Special Test Scores Oswestry Low Back Score: 27 - Goals Goal 1:: I with HEP Goal Time Frame: 4-6 Weeks Goal 2:: Patient will demonstrate 50% improvement with neck and back with improved function with ADL along with decrease pain. Goal Time Frame: 4-6 Weeks Goal 3:: Patient will increase strength of quads/hams and hip 10.0 PEAK FORCE to improve gait Goal Time Frame: 4-6 Weeks Goal 4:: Patient to improve cervical and lumbar ROM for function of recovery to put on shoes and do dishes with ADL'S Goal Time Frame: 4-6 Weeks Goal 5:: Patient to improve back oswestry score by 5 points or to improve QOL and function Goal Time Frame: 4-6 Weeks - Rehabilitation Potential Physical Therapy Diagnosis: This patient has cervical pain and back pain without radiculopathy but has weakness in legs impairs gait pain with motion testing and positioning causes deficits for ADLS' and housework tasks Rehabilitation Potential: Good - Anticipated Interventions Patient/Client Instruction: Educate patient on: Condition, Plan of Care For the Purpose of:: To decrease pain, To increase ROM, To improve muscle performance and motor function, To improve ability to perform ADL's, To increase tolerance to activity/condition/position, To improve ability of physical actions for home/community/work/leisure, To improve health of tissue, To decrease soft tissue restriction, To increase flexibility/ROM, To prevent re-injury Therapeutic Exercise to Include: Strength training, Body mechanics, Postural training, Flexibilty training, Dynamic Lumbar Stabilization Comment: BLE For the Purpose of:: To decrease pain, To increase ROM, To improve muscle performance and motor function, To improve ability to perform ADL's, To increase tolerance to activity/condition/position, To improve performance and independence with ADL's, To improve ability of physical actions for home/community/work/leisure, To improve health of tissue, To decrease soft tissue restriction, To increase flexibility/ROM, To prevent re-injury TENS: Yes IF ES: Yes Cryotherapy (ice pack, ice massage): Yes Thermo therapy (hot pack): Yes For the Purpose of:: To decrease pain, To improve health of tissue, To decrease soft tissue restriction Thank you for the opportunity to evaluate your patient. For Medicare and Medicare HMO plans, please review the plan of care and approve it. It will need to be FAXED BACK to us at [phone] for Medicare purposes. For Medicare only, by signing this I certify the plan of care. Please let me know if there are questions or concerns regarding this plan of care. Physician Signature: Date:
--- NOTE | 2021-10-12 09:36 | HP.PTDCSUM ---
It has been my pleasure to treat ABIMAEL MALDONADO referred by Dr. Marisel Carter MD, with the diagnosis of BACK PAIN AND NECK PAIN for a total of 4 visit(s). Discharge Date: Please see the following information for a summary of their discharge status. Subjective: Ex's make symptoms worse Bilateral Back Pain Intensity (Out of 10): 4 Neck Pain Intensity (Out of 10): 5 Objective/Function: Modesta tx well with above ex's but modify to minimize symptoms. cont with graded ex's Goal 1:: I with HEP Goal 2:: Patient will demonstrate 50% improvement with neck and back with improved function with ADL along with decrease pain. Goal 3:: Patient will increase strength of quads/hams and hip 10.0 PEAK FORCE to improve gait Goal 4:: Patient to improve cervical and lumbar ROM for function of recovery to put on shoes and do dishes with ADL'S Goal 5:: Patient to improve back oswestry score by 5 points or to improve QOL and function Plan: PT INTERVETIONS - POSTURAL, CERVICAL ROM, STRENGTHENING, DLS, BLE STRENGTHENING AND MODALTIES PRN If there are questions or concerns regarding this patient's physical therapy, please feel free to call me at [phone]. Thank you for the referral of this patient. Sincerely, Spencer Poole, PT, Cert MDT, OCS Balance/Gait/Functional tests - Balance/Special Test Scores Oswestry Low Back Score: 27
== END 2021-09-20 19:00 | disposition home or self-care (01) ==
LOC: PT 12:30
PROVIDERS: Referring Provider Anesthesiology Pain Medicine; Visit Provider Anesthesiology Pain Medicine
DX: M54.9 Dorsalgia, unspecified (principal); M54.2 Cervicalgia
CPT/HCPCS: 97110; 97162

== ENCOUNTER 2021-10-13 16:23 | Emergency (ER) | payer MEDICARE, OTHER, SELFPAY ==
[2021-10-13 16:24] VITALS: BP 179/129; PULSE 88; RESP 16; TEMP 36.2; O2SAT 99; BMI 28.4
--- NOTE | 2021-10-13 16:36 | EX.ED.DYSGE1 ---
HPI History of Present Illness Chief Complaint: General Illness Informant: patient Onset/Context/Timing Onset: Hours Context: Sudden Onset Timing: Continuous Quality: Laceration anterior mid right leg with bleeding Current Severity: Gone Maximum Severity: Moderate Worsened by: Laceration and lymphedema Relieved by: Pressure applied by patient Associated Symptoms Associated Symptoms: None Narrative Narrative: Patient is a 71-year-old woman who has history of dependent lymphedema, congestive heart failure and what she describes as cellulitis. Patient actually has venous stasis dermatitis. Patient's tetanus status is unknown. She has a laceration the anterior mid right leg that is a back words L. She denies any paresthesia, anesthesia or motor weakness. Prior similar symptoms: No Recent Illness/Hospitalization: No PFSH PFS Medical History Arthritis Asthma Atrial fibrillation Diabetes Hypertension SOB (shortness of breath) Home Medications azithromycin 250 mg tablet See Rx Instructions PO .COMPLEX #6 tab 05/28/21 [Rx Last Taken Unknown] cephalexin 500 mg PO Q12 #14 capsule 06/25/21 [Rx Last Taken Unknown] ondansetron 4 mg PO Q8H PRN PRN #20 tab 06/25/21 [Rx Last Taken Unknown] cephalexin 500 mg PO Q12 #14 capsule 06/27/21 [Rx Last Taken Unknown] ondansetron 4 mg PO Q8H PRN PRN #14 tab 06/27/21 [Rx Last Taken Unknown] Allergy/AdvReac Type Severity Reaction Status Date / Time Sulfa (Sulfonamide Allergy Unknown unknown Verified 10/13/21 16:27 Antibiotics) Family History Other Cancer Diabetes Heart disease Social History (Updated 10/13/21 @ 16:[address] Alejandro Patel MD) household members: none Smoking Status: Former smoker substance use type: does not use ROS ROS ED Constitutional Constitutional ED: Denies chills, fever(s), subjective or sweats Musculoskeletal Musculoskeletal: Denies arthralgias, back pain, myalgias or neck pain Integumentary Reports rash and other Details: Laceration ; Denies abscess or Abrasions Neurologic Neurologic: Denies headache(s), paresthesias or weakness Hematologic/Lymphatic Hematologic/Lymphatic: Denies anemia, easy bleeding or easy bruising EXAM Physical Exam Const Vital Signs: 10/13/21 16:24 Temperature 97.2 F L Temperature Source Temporal Pulse Rate 88 Respiratory Rate 16 Blood Pressure 179/129 H Blood Pressure Mean 145 Pulse Ox 99 Oxygen Delivery Method Room Air Positive well nourished and well developed General Appearance ED: well developed and NAD; Negative for cyanotic, diaphoretic or pallor HEENT Negative for trauma or tenderness Eyes Negative for PERRL or EOMs intact bilaterally General Eye ED: Negative for pale conjunctiva Resp No normal respiratory effort Cardio regular rate and regular rhythm Neuro oriented x3, CN's II-XII intact bilaterally and no sensory deficits noted Sensorium / Orientation: alert Motor Exam: strength 5/5 throughout Psych mental status grossly normal Skin no rashes or lesions noted and No no wounds Skin Narrative: Patient has venous stasis dermatitis of the right and left leg. There is no evidence of cellulitis. There is no induration, warmth, lymphangitis, popliteal or inguinal lymphadenopathy. There is a laceration which will require repair. General Skin Exam: Negative for jaundice or pallor Procedures Other Procedures Procedure(s): Patient has a 2.5 cm laceration mid anterior right leg. Patient was prepped draped sterile manner. The wound was Nestabs without lidocaine. The wound was cleansed with serge cleansed and irrigated. A total of 4 simple interrupted sutures was placed using 5-0 Ethilon. Patient tolerated procedure well. Discharge Plan Triage Chief Complaint: General Illness ED Provider: Alejandro Patel Dx/Rx/DC Orders Clinical Impression: Laceration of right lower leg, Chronic venous stasis dermatitis Instructions: ED Laceration: All Closures Prescriptions: No Action azithromycin 250 mg tablet See Rx Instructions PO .COMPLEX Qty: 6 RF: 0 cephalexin 500 mg capsule 500 mg PO Q12 Qty: 14 RF: 0 ondansetron 4 mg tablet,disintegrating 4 mg PO Q8H PRN PRN (Reason: Nausea) Qty: 20 RF: 0 cephalexin 500 mg capsule 500 mg PO Q12 Qty: 14 RF: 0 ondansetron 4 mg tablet,disintegrating 4 mg PO Q8H PRN PRN (Reason: Nausea) Qty: 14 RF: 0 Primary Care Provider: Dajuan Eric Referrals: Dajuan Eric MD [Primary Care Provider] - 10-14 Days suture removal Disposition Disposition: Home, Self Care
[2021-10-13] MEDS: Lidocaine 1% (20 ml mdv) 20 ML Vial INFILT (17:14)
[2021-10-13] MEDS: Diphth,Pertuss(Acell),Tet Vac 0.5 ML Vial IM (17:27)
[2021-10-13 17:30] VITALS: BP 102/68; PULSE 77; RESP 16; O2SAT 95
== END 2021-10-13 17:39 | disposition home or self-care (01) ==
PROVIDERS: Emergency Provider Emergency Medicine; PCP Internal Medicine; Visit Provider Emergency Medicine
DX: S81.811A Laceration without foreign body, right lower leg, initial encounter (principal); I11.0 Hypertensive heart disease with heart failure; I50.9 Heart failure, unspecified; E11.59 Type 2 diabetes mellitus with other circulatory complications; I48.91 Unspecified atrial fibrillation; Z87.891 Personal history of nicotine dependence; I89.0 Lymphedema, not elsewhere classified; I87.8 Other specified disorders of veins; X58.XXXA Exposure to other specified factors, initial encounter
CPT/HCPCS: 12001; 90715; 99284

== ENCOUNTER → 2021-10-21 | Outpatient (CLI) | payer MEDICARE, OTHER, SELFPAY ==
[2021-10-21 11:35] LABS: Amphetamine Urine VISTA NEGATIVE (<1000 ng/mL); Barbiturate Urine VISTA NEGATIVE (< 200 ng/mL); Benzodiazepine Urine VISTA NEGATIVE (< 200 ng/mL); Cocaine Urine VISTA NEGATIVE (< 300 ng/mL); Ecstacy Urine VISTA NEGATIVE (< 500 ng/mL); Methadone Urine VISTA NEGATIVE (< 300 ng/mL); PCP Urine VISTA NEGATIVE (< 25 ng/mL); THC Urine VISTA NEGATIVE (< 50 ng/mL); Vista UDS pH Range 5
[2021-10-21 11:47] LABS: BUP Internal Control LINE = VALID (VALID); Buprenorphine Drug Screen Negative (<10 ng/mL)
== END | disposition home or self-care (01) ==
PROVIDERS: PCP Internal Medicine; Referring Provider Anesthesiology Pain Medicine; Visit Provider Anesthesiology Pain Medicine
DX: F11.20 Opioid dependence, uncomplicated (principal)
CPT/HCPCS: 80307

== ENCOUNTER → 2021-11-24 | Outpatient (CLI) | payer MEDICARE, OTHER, SELFPAY ==
--- NOTE | 2021-11-24 13:33 | STE_ITS ---
Reason For Study: CHRONIC AFIB Stress Results Protocol: Dobutamine Protocol Maximum Predicted HR: 151 bpm Target HR: 128 bpm % Maximum Predicted HR: 84 % DurationHeart Rate Stage (mm:ss) (bpm) BP Dose BASELINE 85 118/79 STAGE 1 3:00 90 122/7110.00 STAGE 2 3:00 116 144/7120.00 STAGE 3 3:00 122 135/5930.00 STAGE 4 2:10 127 125/6040.00 RECOVERY 107 132/76 Stress Duration: 11:10 mm:ss Maximum Stress HR: 127 bpm Baseline Echocardiogram Findings Stress Echo Wall motion Data Resting WM Intermediate WM Stress WM ECHO/Stress Test Echo w/o Contrast Interpretation Summary Dobutamine stress echocardiogram. Resting EKG demonstrates normal sinus rhythm with a rate of 86 bpm normal inter vals are noted. Resting blood pressure is 118/79 mmHg. Dobutamine was infused starting at 10 mc g/kg/min increasing in 3-minute aliquots to a peak of 40 mcg/kg/min. The maximum heart rate attaine d was 127 bpm which was 84% of max impacted heart rate the maximum workload was 1 metabolic equival ent. The patient maintained sinus rhythm throughout the recording. At rest there were no ST or T wave changes noted to suggest ischemia and at peak infusion nonspecific ST changes were noted. The final blood pressure was 132/76 mmHg. The test was terminated due to completion of the protocol. Stress echocardiogram. Resting echocardiographic evaluation demonstrated an ejection fraction of 50% w ith no wall motion abnormalities noted. At low dose and peak dose there was improvement in ejectio n fraction and thickening of all aguilar and reduction of ventricular cavity size. The peak ejec tion fraction was noted to be 65 to 70% with no wall motion abnormalities noted to suggest ischem ia. Conclusion: Normal dobutamine stress echocardiogram. Ordering Physician: DARRIUS ALFONSO Referring Physician: DARRIUS ALFONSO Performed By: Josiane Shaikh RDCS
== END | disposition home or self-care (01) ==
LOC: CVS 13:21
PROVIDERS: PCP Internal Medicine
DX: I48.20 Chronic atrial fibrillation, unspecified (principal); R07.9 Chest pain, unspecified
CPT/HCPCS: 93017; 93350; J7040; Q9957

== ENCOUNTER 2021-12-14 10:00 | Outpatient (RCR) | payer MEDICARE, OTHER, SELFPAY ==
--- NOTE | 2021-10-26 10:04 | HP.PTEVAL_ITS ---
Patient's Visit Information ABIMAEL MALDONADO is a 71 year old F referred to Physical Therapy by KEERTHI BOLAÑOS with a diagnosis of Vertigo. Date of Evaluation: 10/26/21 Physical Therapist: JANEL Tiwari - Visit Plan Frequency: 2x /Week Duration: 2 Months Plan: 2X/ week for 4-8 weeks for progressive VOR starting with smooth pursuit and moving toward head movements in seated and standing, vestibular inputs for balance on and off foam, functional strengthening, gait training, balance activities including gait with head turns with HEP. HEP: sitting smooth pursuit horizontal and vertical - Subjective Pt started having dizzy spells at first she would pass out and waking up 3 hours later. This happened right after October 2019. SHe did not know if it was due to stress of or something else. She chalked it up to emotions. It has lingered and it has not gone away. She had a walker and when she flew back form [place] it (rollator). She loved the rollator. She is in the process of getting a new rollator now. Dr Carter gave her the order to get a new rollator. She did not use the rollator to walk into the clinic today. Currently her symptoms are often being on a boat and she is moving up and down. Her walking had gone down hill from Jun. The Dr thinks that she had a TIA cause her L side went numb (Jun)...was not hospitalized. She feel that she is on the boat anytime of day. Sit to stand brings on the boat motion. Sometimes the room spinning will happen 4 times a week and it lasts about an hour and she sits down or holds onto things until she gets her breathing under control. She does have anxiety disorder. Her A-Fib does not help either cause her HR is all over the place. She has had 3 falls since September... Currently walking into the clinic she was a little dizzy but not dizzy sitting here in the chair. She has more dizziness in wide open spaces or busy places. She avoids the grass. She goes slow in parking lots due to uneven parking lots. Pt reports that she is af raid of falling. She does have a h/o of concussions. She lives on one floor with no stairs. She is a furniture walker. She reports that her balance is harder at night. She is always in pain.... with main pain sources in neck, thoracic, and back pain. She has lost 2 inches. November 30 pt is having cataract surgery in the R eye and L eye to follow. - Pain Spine Opdyke Pain Intensity (Out of 10): 5 Pain Intensity Range: 10 - Objective Gait: Walks with shorter strides and WBOS with increase veering. Pt would tend to lose balance if turns her head. FGA: 7. CATSIB: 95/120. VOR: Smooth Pursuit: horizontal for 30 seconds with some jumping of the eyes and increase dizziness in sitting, and vertical in sitting pt could not track the moving pen and would overshoot her gaze and did cause dizziness. LE MMT: B hip flex 3+/5, B knee ext 3+/5, B knee flex 3+/5, Supine hip abd 4-/5, Supine hip add 4-/5, Pt is able to do 1/2 normal ROM bridge. Sit to stand: ABle to stand with effort without using her arms on first attempt. Standing heel and toe raises pt is able with CGA X [address] - Balance/Special Test Scores Functional Gait Assessment Score: 7 % Disability: 76.6700 CATSIB Score (Max score 120 seconds): 95 Dizziness Score: 66 - Goals Goal 1:: I HEP Goal Time Frame: 6-8 Weeks Goal 2:: Increase CATSIB score by 10 points to decrease fall risk (score of 95 at eval) Goal Time Frame: 6-8 Weeks Goal 3:: Increase FGA score by 10 point to decrease fall risk (score of 7 at eval) Goal Time Frame: 6-8 Weeks Goal 4:: Be able to do standing smooth pursuit horizontal and vertical in standing for 30 seconds with no dizziness Goal Time Frame: 6-8 Weeks Goal 5:: Be able to sit to stand X 10 with no UE support and no dizziness with SBA Goal Time Frame: 6-8 Weeks - Rehabilitation Potential Rehabilitation Potential: Good - Anticipated Interventions Patient/Client Instruction: Educate patient on: Condition, Plan of Care For the Purpose of:: To improve muscle performance and motor function, To impr ove ability to perform ADL's, To increase tolerance to activity/condition/position, To improve performance and independence with ADL's, To improve gait and locomotor functions, To increase flexibility/ROM, To improve endurance, To improve balance, To improve safety with gait Therapeutic Exercise to Include: Strength training, Endurance training, Balance training, Coordination, Body mechanics, Postural training, Gait and locomotor training, Neuromotor development, Passive ROM, Active ROM For the Purpose of:: To improve muscle performance and motor function, To improve ability to perform ADL's, To increase tolerance to activity/condition/position, To improve performance and independence with ADL's, To decrease level of supervision to perform tasks, To improve ability of physical actions for home/community/work/leisure, To improve gait and locomotor functions, To improve health of tissue, To decrease soft tissue restriction, To increase flexibility/ROM, To improve endurance, To improve balance, To improve safety with gait Functional Training to Include: Gait training For the Purpose of:: To improve gait and locomotor functions, To improve safety with gait Thank you for the opportunity to evaluate your patient. For Medicare and Medicare HMO plans, please review the plan of care and approve it. It will need to be FAXED BACK to us at [phone] for Medicare purposes. For Medicare only, by signing this I certify the plan of care. Please let me know if there are questions or concerns regarding this plan of care. Physician Signature: Date:
--- NOTE | 2022-02-28 09:18 | HP.PT.NRP ---
ABIMAEL MALDONADO was seen in my office for initial evaluation on 10/26/21. The following Plan of Care was established for this patient: Initial Frequency: 2x /Week Initial Duration: 2 Months Patient/Client Instruction: Educate patient on: Condition, Plan of Care For the Purpose of:: To improve muscle performance and motor function, To improve ability to perform ADL's, To increase tolerance to activity/condition/position, To improve performance and independence with ADL's, To improve gait and locomotor functions, To increase flexibility/ROM, To improve endurance, To improve balance, To improve safety with gait Therapeutic Exercise to Include: Strength training, Endurance training, Balance training, Coordination, Body mechanics, Postural training, Gait and locomotor training, Neuromotor development, Passive ROM, Active ROM For the Purpose of:: To improve muscle performance and motor function, To improve ability to perform ADL's, To increase tolerance to activity/condition/position, To improve performance and independence with ADL's, To decrease level of supervision to perform tasks, To improve ability of physical actions for home/community/work/leisure, To improve gait and locomotor functions, To improve health of tissue, To decrease soft tissue restriction, To increase flexibility/ROM, To improve endurance, To improve balance, To improve safety with gait Functional Training to Include: Gait training For the Purpose of:: To improve gait and locomotor functions, To improve safety with gait This patient was last seen in our office 12/14/21. Pertinent comments regarding their Physical therapy will appear below: DC PT as pt as pt has not rescheduled since 12-14-21 At this point I will be discontinuing this patient from physical therapy. I would be happy to see this patient again in the future if found appropriate by the physician. Thank you! Carol Reina, MPT Balance/Gait/Functional tests - Balance/Special Test Scores Functional Gait Assessment Score: 7 % Disability: 76.6700 CATSIB Score (Max score 120 seconds): 95 Dizziness Score: 66
== END 2021-12-14 19:00 | disposition home or self-care (01) ==
LOC: PT 10:00
PROVIDERS: PCP Internal Medicine; Referring Provider Nurse Practitioner; Visit Provider Nurse Practitioner
DX: R42 Dizziness and giddiness (principal)
CPT/HCPCS: 97110; 97162

== ENCOUNTER 2022-08-19 20:18 | Emergency (ER) | payer MEDICARE, OTHER, SELFPAY ==
[2022-08-19 20:20] VITALS: BP 133/58; PULSE 89; RESP 16; TEMP 36.2; O2SAT 95; BMI 29.7
[2022-08-19 20:22] VITALS: BP 133/58; PULSE 89; RESP 16; TEMP 36.2; O2SAT 95
--- NOTE | 2022-08-19 20:26 | EDS_ITS ---
HPI <SUKHI Quevedo - Last Filed: 08/19/22 20:49> HPI - Female History of Present Illness Chief Complaint: Complaint Narrative Narrative: 72-year-old female has had 5 days of frequency and hematuria. She developed suprapubic and bilateral low back pain today which prompted her to come in. No fever chills or nausea or vomiting. She does have remote history of kidney stones. She is on aspirin 81 mg, no blood thinners. [facility] <SUKHI Quevedo - Last Filed: 08/19/22 20:49> [facility] Medical History ADD (attention deficit disorder) Arthritis Asthma Atrial fibrillation Chronic fatigue syndrome Diabetes Fibromyalgia Folic acid deficiency GERD (gastroesophageal reflux disease) Hypertension Hypothyroidism IBS (irritable bowel syndrome) Insomnia Intractable back pain Osteopenia SOB (shortness of breath) Type 2 diabetes mellitus without complication, with long-term current use of insulin Home Medications aspirin 81 mg tablet,delayed release 81 mg PO DAILY 01/13/22 [History Last Taken Unknown] cholecalciferol (vitamin D3) 125 mcg (5,000 unit) capsule 125 mcg PO DAILY 01/13/22 [History Last Taken Unknown] diphenoxylate-atropine 2.5 mg-0.025 mg tablet (Lomotil) 1 tab PO QHS PRN 01/13/22 [History Last Taken Unknown] famotidine 20 mg tablet 20 mg PO BID 01/13/22 [History Last Taken Unknown] furosemide 40 mg tablet 40 mg PO BID 01/13/22 [History Last Taken Unknown] gabapentin 300 mg capsule 300 mg PO TID 01/13/22 [History Last Taken Unknown] levomefolate calcium 7.5 mg tablet (L-Methylfolate) 7.5 mg PO DAILY 01/13/22 [History Last Taken Unknown] methylphenidate HCl 20 mg tablet 20 mg PO DAILY 01/13/22 [History Last Taken Unknown] montelukast 10 mg tablet 10 mg PO QPM 01/13/22 [History Last Taken Unknown] potassium chloride 20 mEq tablet,extended release 20 meq PO DAILY 01/13/22 [History Last Taken Unknown] selenium 200 mcg tablet 200 mcg PO DAILY 01/13/22 [History Last Taken Unknown] spironolactone 25 mg tablet 25 mg PO DAILY 01/13/22 [History Last Taken Unknown] tamsulosin 0.4 mg capsule 0.4 mg PO DAILY 01/13/22 [History Last Taken Unknown] thyroid (pork) 60 mg tablet ([employer] Thyroid) 60 mg PO DAILY 01/13/22 [History Last Taken Unknown] tizanidine 2 mg tablet 2 mg PO Q6H PRN 01/13/22 [History Last Taken Unknown] trazodone 50 mg tablet 50 mg PO DAILY 01/13/22 [History Last Taken Unknown] verapamil 120 mg tablet 120 mg PO BID 01/13/22 [History Last Taken Unknown] [id number] 18 mg-10 mg-45 mg-5 mg-250 mg tablet (B Complex w-Vit C) 1 tab PO DAILY 01/13/22 [History Last Taken Unknown] naloxegol 25 mg tablet (Movantik) 25 mg PO QAM #30 tabs 06/09/22 [Rx Last Taken Unknown] dicyclomine 20 mg tablet 20 mg PO BID #60 tabs 08/04/22 [Rx Last Taken Unknown] nitrofurantoin monohydrate/macrocrystals 100 mg capsule 100 mg PO Q12 #10 CAPSULES 08/19/22 [Rx Last Taken Unknown] Allergy/AdvReac Type Severity Reaction Status Date / Time Sulfa (Sulfonamide Allergy Unknown unknown Verified 10/13/21 16:27 Antibiotics) Family History Other Cancer Diabetes Heart disease Surgical History Hx of hysterectomy Hx of shoulder surgery Social History household members: none Smoking Status: Former smoker alcohol intake: former substance use type: does not use ROS <SUKHI Quevedo - Last Filed: 08/19/22 20:49> ROS ED ROS Narrative Constitutional: Negative for fever, chills, malaise. CVS: Negative for palpitations, chest pain, syncope. Respiratory: Negative for shortness of breath, cough. GI: Positive for abdominal pain. Negative for nausea, vomiting. Diarrhea, constipation, melena, hematochezia. : Positive for hematuria or frequency. Skin: Negative for rash, abscess, or wound. Musc: Negative for joint pain, swelling, trauma. EXAM <SUKHI Quevedo - Last Filed: 08/19/22 20:49> Physical Exam Narrative Exam Narrative: CONST: Patient sitting in no acute distress. EYES: Normal inspection. NECK: Normal inspection. RESP: No respiratory distress, CTAB. CVS: Regular rate and rhythm, no murmur, no gallop. ABD: Soft with suprapubic tenderness, no guarding or rebound, nondistended, no hepatosplenomegaly. Back: Normal inspection, no CVA tenderness. SKIN: Color normal, no rash, warm, dry, intact. EXTREMITIES: Normal appearance, no pedal edema. NEURO: Oriented x4. PSYCH: Normal affect. Const Vital Signs: 08/19/22 20:20 08/19/22 20:22 Temperature 97.2 F L 97.2 F L Temperature Source Oral Oral Pulse Rate 89 89 Respiratory Rate 16 16 Blood Pressure 133/58 H 133/58 H Blood Pressure Mean 83 83 Pulse Ox 95 95 Oxygen Delivery Method Room Air Room Air <Dr. Alejandro Patel MD - Last Filed: 08/19/22 21:51> Physical Exam Const Vital Signs: 08/19/22 20:20 08/19/22 20:22 Temperature 97.2 F L 97.2 F L Temperature Source Oral Oral Pulse Rate 89 89 Respiratory Rate 16 16 Blood Pressure 133/58 H 133/58 H Blood Pressure Mean 83 83 Pulse Ox 95 95 Oxygen Delivery Method Room Air Room Air MDM <SUKHI Quevedo - Last Filed: 08/19/22 20:49> [facility] Narrative Medical decision making narrative: Patient is having frequency and hematuria and today developed suprapubic and bilateral low back pain. She appears well and nontoxic with normal vital signs. On exam heart is regular with no murmurs. Lungs clear. Abdominal exam remarkable for mild suprapubic tenderness but no peritoneal signs. She has no CVA tenderness. Urinalysis is pending and case was signed over to my attending. I have personally performed a face to face assessment of the patient and have reviewed the INOCENCIO Note. I performed a substantive portion of the visit including all aspects of the following. My fitzgerald findings include: History is remarkable for hematuria, discomfort with urination and bilateral low back pain. She denies flank pain. She denies documented fever or subjective fever. She denies shaking chills. She denies nausea or vomiting. She does have history of diverticulosis and diverticulitis. She denies history of renal ureterolithiasis. Exam is patient appears in no distress. Vital signs reveal slight elevated blood pressure and temperature 97.2. HEENT was remarkable for poor dentition. Heart is regular. There is no murmur, gallop or rub. Lungs are clear auscultation. Abdomen reveals minimal tenderness suprapubic area. There is no right or left CVA tenderness. No dermatologic lesions noted. No evidence of abdominal wall trauma. Medical Decision Making patient presents with urinary tract symptoms. Will obtain UA. Patient did give a urine specimen. Urine has straw-colored appearance. Appears clear. Other additions or changes: [None] Lab Data Labs: Laboratory Results - last 24 hr 08/19/22 20:37 Urine Color Yellow Urine Clarity Clear Urine pH 7.0 Ur Specific Waldron 1.010 Urine Protein 30 H Urine Glucose (UA) 1000 H Urine Ketones Negative Urine Occult Blood 250 H Urine Nitrite Negative Urine Bilirubin Negative Urine Urobilinogen Normal Ur Leukocyte Esterase 500 H Urine RBC 0-5 SEEN Urine WBC 0-5 SEEN Ur Squamous Epith Cells 0 SEEN Urine Bacteria RARE Urine Mucus 0 SEEN <Dr. Alejandro Patel MD - Last Filed: 08/19/22 21:51> [facility] MDM Narrative Medical decision making narrative: AndPatient is having frequency and hematuria and today developed suprapubic and bilateral low back pain. She appears well and nontoxic with normal vital signs. On exam heart is regular with no murmurs. Lungs clear. Abdominal exam remarkable for mild suprapubic tenderness but no peritoneal signs. She has no CVA tenderness. Urinalysis is pending and case was signed over to my attending. I have personally performed a face to face assessment of the patient and have reviewed the INOCENCIO Note. I performed a substantive portion of the visit including all aspects of the following. My fitzgerald findings include: History is remarkable for hematuria, discomfort with urination and bilateral low back pain. She denies flank pain. She denies documented fever or subjective fever. She denies shaking chills. She denies nausea or vomiting. She does have history of diverticulosis and diverticulitis. She denies history of renal ureterolithiasis. Exam is patient appears in no distress. Vital signs reveal slight elevated blood pressure and temperature 97.2. HEENT was remarkable for poor dentition. Heart is regular. There is no murmur, gallop or rub. Lungs are clear auscultation. Abdomen reveals minimal tenderness suprapubic area. There is no right or left CVA tenderness. No dermatologic lesions noted. No evidence of abdominal wall trauma. Medical Decision Making patient presents with urinary tract symptoms. Will obtain UA. Patient did give a urine specimen. Urine has straw-colored appearance. Appears clear. Urine is positive for blood, leukoesterase or nitrites. There is glucose. There is rare bacteria with 0-5 WBCs. Since patient has frequency this may result in a unimpressive urinalysis. Since patient has allergy to sulfa with normal renal function we will treat with Macrobid. Will assess BG T to determine if blood work is needed. Other additions or changes: [None] Lab Data Labs: Laboratory Results - last 24 hr 08/19/22 20:37 Urine Color Yellow Urine Clarity Clear Urine pH 7.0 Ur Specific Waldron 1.010 Urine Protein 30 H Urine Glucose (UA) 1000 H Urine Ketones Negative Urine Occult Blood 250 H Urine Nitrite Negative Urine Bilirubin Negative Urine Urobilinogen Normal Ur Leukocyte Esterase 500 H Urine RBC 0-5 SEEN Urine WBC 0-5 SEEN Ur Squamous Epith Cells 0 SEEN Urine Bacteria RARE Urine Mucus 0 SEEN Discharge Plan Triage Chief Complaint: Complaint ED Midlevel Provider: Rebeca Prescott ED Provider: Alejandro Patel Dx/Rx/DC Orders Clinical Impression: Urinary tract infection, Hypertension, Hypothyroidism Instructions: ED Cystitis Female Adult Prescriptions: New nitrofurantoin monohyd/m-cryst [nitrofurantoin monohyd/m-cryst] 100 mg capsule 100 mg PO Q12 Qty: 10 0RF No Action trazodone 50 mg tablet 50 mg PO DAILY tamsulosin 0.4 mg capsule 0.4 mg PO DAILY montelukast 10 mg tablet 10 mg PO QPM thyroid (pork) [[employer] Thyroid] 60 mg tablet 60 mg PO DAILY furosemide 40 mg tablet 40 mg PO BID spironolactone 25 mg tablet 25 mg PO DAILY tizanidine 2 mg tablet 2 mg PO Q6H PRN verapamil 120 mg tablet 120 mg PO BID diphenoxylate-atropine [Lomotil] 2.5-0.025 mg tablet 1 tab PO QHS PRN methylphenidate HCl 20 mg tablet 20 mg PO DAILY aspirin 81 mg tablet,delayed release (DR/EC) 81 mg PO DAILY cholecalciferol (vitamin D3) 125 mcg (5,000 unit) capsule 125 mcg PO DAILY selenium 200 mcg tablet 200 mcg PO DAILY famotidine 20 mg tablet 20 mg PO BID B Complex w-Vit C [id number] mg tablet 1 tab PO DAILY levomefolate calcium [L-Methylfolate] 7.5 mg tablet 7.5 mg PO DAILY gabapentin 300 mg capsule 300 mg PO TID potassium chloride 20 mEq tablet extended release 20 meq PO DAILY Movantik 25 mg tablet 25 mg PO QAM Qty: 30 0RF Rx Instructions: must be taken on empty stomach; no food 1 hr after or 2-3 hrs before dose dicyclomine 20 mg tablet 20 mg PO BID Qty: 60 2RF Primary Care Provider: Dajuan Eric Referrals: Dajuan Eric MD [Primary Care Provider] - 3-5 Days if not improving Disposition Disposition: Home, Self Care
[2022-08-19 20:42] LABS: Mucous, Urine 0 SEEN /hpf (<or=2+); Squamous Epithelial Cells - UA 0 SEEN /hpf (5-10)
[2022-08-19 20:47] LABS: Color, Urine Yellow (Yellow); Glucose, Dipstick 1000 mg/dl (Normal); Ketone-Dipstick Negative (Negative); Leukocyte Esterase-Dipstick 500 /ul (Negative); Nitrite-Dipstick Negative (Negative); Occult Blood-Urine 250 /ul (Negative); Protein-Dipstick 30 mg/dl (Negative); Urine Bilirubin Dipstick Negative (Negative); Urine Clarity Clear (Clear); Urine Urobilinogen Normal (Normal)
[2022-08-19 20:57] LABS: Bacteria RARE /hpf (None Seen); Red Blood Cells-Urine 0-5 SEEN /hpf (0-5); White Blood Cells 0-5 SEEN /hpf (0-5)
[2022-08-19] MEDS: Nitrofurantoin Macrocrystals 100 MG Capsule PO (21:43)
[2022-08-19 22:00] VITALS: BP 124/73; PULSE 69; RESP 15; O2SAT 98
== END 2022-08-19 22:00 | disposition home or self-care (01) ==
PROVIDERS: Physician Assistant; Emergency Provider Emergency Medicine; PCP Internal Medicine; Visit Provider Emergency Medicine
DX: N39.0 Urinary tract infection, site not specified (principal); I48.91 Unspecified atrial fibrillation; E11.9 Type 2 diabetes mellitus without complications; E03.9 Hypothyroidism, unspecified; R31.9 Hematuria, unspecified; M54.50 Low back pain, unspecified; Z87.891 Personal history of nicotine dependence; I10 Essential (primary) hypertension; Z79.82 Long term (current) use of aspirin; Z87.442 Personal history of urinary calculi
CPT/HCPCS: 81001; 87086; 87088; 99284

== ENCOUNTER → 2022-09-02 | Outpatient (CLI) | payer MEDICARE, OTHER, SELFPAY ==
[2022-09-02 13:49] LABS: Bacteria 0 SEEN /hpf (None Seen); Mucous, Urine 0 SEEN /hpf (<or=2+); Red Blood Cells-Urine 0 SEEN /hpf (0-5)
[2022-09-02 14:35] LABS: Color, Urine Yellow (Yellow); Glucose, Dipstick 1000 mg/dl (Normal); Ketone-Dipstick Negative (Negative); Leukocyte Esterase-Dipstick 25 /ul (Negative); Nitrite-Dipstick Negative (Negative); Occult Blood-Urine Negative /ul (Negative); Protein-Dipstick Negative (Negative); Specific Gravity, Urine 1.005 (1.002-1.030); Urine Bilirubin Dipstick Negative (Negative); Urine Clarity Clear (Clear); Urine Urobilinogen Normal (Normal)
[2022-09-02 14:42] LABS: Squamous Epithelial Cells - UA 0-5 SEEN /hpf (5-10); White Blood Cells 0-5 SEEN /hpf (0-5)
== END | disposition home or self-care (01) ==
LOC: LAB 13:44
PROVIDERS: PCP Internal Medicine; Referring Provider Internal Medicine Gastroenterology; Visit Provider Internal Medicine Gastroenterology
DX: R19.8 Other specified symptoms and signs involving the digestive system and abdomen (principal)
CPT/HCPCS: 81001

== ENCOUNTER 2022-10-15 14:15 | Emergency (ER) | payer MEDICARE, OTHER, SELFPAY ==
[2022-10-15 14:15] VITALS: BP 98/58; PULSE 66; RESP 13; TEMP 36.4; O2SAT 96; BMI 29.1
--- NOTE | 2022-10-15 14:34 | EKG12_ITS ---
Test Reason : CHEST PAIN Blood Pressure : / mmHG Vent. Rate : 063 BPM Atrial Rate : 063 BPM P-R Int : 162 ms QRS Dur : 086 ms QT Int : 418 ms P-R-T Axes : 027 002 041 degrees QTc Int : 427 ms Normal sinus rhythm Normal ECG Confirmed by DIPAK WELSH, JESSIE ([id number]), senior technical editor RANCHO JULIAN ([id number]) on 10/17/2022 2:46:36 PM Referred By: DEDRICK Confirmed By:MARILYNN QUESADA MD
--- NOTE | 2022-10-15 14:34 | RAD_ITS ---
EXAM: XR CHEST, 1 VIEW CLINICAL INDICATION: chest pain TECHNIQUE: Frontal view of the chest. COMPARISON: XR Chest dated 06/25/2021 FINDINGS: LUNGS AND PLEURAL SPACES: Normal. No consolidation or edema. No pneumothorax. No effusion. HEART: Normal heart size. MEDIASTINUM: No mediastinal or hilar mass. BONES/JOINTS: Surgical resection of the distal portion of the right clavicle again noted. RAD/Chest 1 View (Portable) IMPRESSION: No acute cardiopulmonary abnormality. No interval change. Electronically Signed: Dylan Cantu MD at 15:25 EDT ,
--- NOTE | 2022-10-15 14:38 | ED.VIS.CHEST ---
HPI History of Present Illness Chief Complaint: Chest Pain Onset/Context/Timing Onset: Today and Hours (2) Activity at onset: sudden Timing: Continuous Quality: Positive for Heaviness Location: Left Chest and - (Left arm) Worsened By: Nothing Relieved By: NTG Associated Symptoms: Positive for Dyspnea, Lightheadedness and Palpitations; Negative for Nausea, Vomiting, Diaphoresis, Cough, Fever or Acid Reflux Narrative Narrative: Patient presents with chest pain that began today approximately 2 hours prior to arrival. Patient states she was having heaviness over the left side of her chest and pain going down into her left arm. Patient states she took some nitroglycerin at home which improved her chest pain. Patient states she is still having arm pain. Patient states her blood pressure did drop after taking the nitroglycerin tablets. Patient states nothing makes her pain worse. Patient admits to some shortness of breath with the pain. Patient states she also got very dizzy with the pain. Patient also admits to some palpitations. Patient denies any nausea or vomiting. Patient denies any diaphoresis. CVD Risk Factors: Positive for Hypertension and Family History 1' </=55; Negative for Diabetes, Hypercholesterolemia or Smoking PE Risk Factors: Positive for Recent Travel/Surgery (Patient had recent cataract surgery on her right eye.); Negative for Recent Immobilization, Prior DVT or PE, Cancer or OCP + Smoking + >/=35 PFSH PFSH Medical History ADD (attention deficit disorder) Arthritis Asthma Atrial fibrillation Chronic fatigue syndrome Essential hypertension Fibromyalgia Folic acid deficiency GERD (gastroesophageal reflux disease) Hypothyroidism IBS (irritable bowel syndrome) Insomnia Intractable back pain Osteopenia Paroxysmal atrial fibrillation SOB (shortness of breath) Type 2 diabetes mellitus without complication, with long-term current use of insulin Home Medications furosemide 40 mg tablet 40 mg PO BID 01/13/22 [History Last Taken Unknown] levomefolate calcium 7.5 mg tablet (L-Methylfolate) 7.5 mg PO DAILY 01/13/22 [History Last Taken Unknown] montelukast 10 mg tablet 10 mg PO QPM 01/13/22 [History Last Taken Unknown] potassium chloride 20 mEq tablet,extended release 20 meq PO DAILY 01/13/22 [History Last Taken Unknown] selenium 200 mcg tablet 200 mcg PO DAILY 01/13/22 [History Last Taken Unknown] spironolactone 25 mg tablet 25 mg PO DAILY 01/13/22 [History Last Taken Unknown] tamsulosin 0.4 mg capsule 0.4 mg PO DAILY 01/13/22 [History Last Taken Unknown] thyroid (pork) 60 mg tablet (KITCHEN [employer]OR Thyroid) 60 mg PO DAILY 01/13/22 [History Last Taken Unknown] dicyclomine 20 mg tablet 20 mg PO BID #60 tabs 08/04/22 [Rx Last Taken Unknown] ascorbate calcium (vitamin C) 500 mg tablet 500 mg PO DAILY 09/15/22 [History Last Taken Unknown] koayeeg-csrxscwqsmzyk-rliyseea 250 mg-250 mg-65 mg tablet (Excedrin Migraine) 1 tab PO Q6H PRN 09/15/22 [History Last Taken Unknown] buprenorphine 5 mcg/hour weekly transdermal patch 1 patch transdermal QWEEK 09/15/22 [History Last Taken Unknown] cyclobenzaprine 10 mg tablet 10 mg PO BID 09/15/22 [History Last Taken Unknown] empagliflozin 10 mg tablet (Jardiance) 10 mg PO QAM 09/15/22 [History Last Taken Unknown] gabapentin 300 mg capsule 600 mg PO TID 09/15/22 [History Last Taken Unknown] gabapentin 300 mg capsule 900 mg PO QHS 09/15/22 [History Last Taken Unknown] hydrocodone-acetaminophen 5-325mg 5mg-325mg 1 tab PO BID 09/15/22 [History Last Taken Unknown] multivitamin-ferrous fumarate-folic acid 18 mg-400 mcg tablet (Centrum Women) 1 tab PO DAILY 09/15/22 [History Last Taken Unknown] nitroglycerin 0.4 mg sublingual tablet 0.4 mg sublingual Q5-15M PRN 09/15/22 [History Last Taken Unknown] rosuvastatin 10 mg tablet 10 mg PO DAILY 09/15/22 [History Last Taken Unknown] verapamil 120 mg tablet 60 mg PO QPM 09/15/22 [History Last Taken Unknown] verapamil 120 mg tablet,extended release 120 mg PO QAM 09/15/22 [History Last Taken Unknown] albuterol sulfate 90 mcg/actuation aerosol inhaler (Ventolin HFA) 2 puff inhalation Q4H PRN shortness of breath or wheezing #18 grams 09/19/22 [Rx Last Taken Unknown] calcium carbonate 600 mg-vitamin D3 25 mcg (1,000 unit) tablet 2 tab PO Q OTHER DAY 10/05/22 [History Last Taken Unknown] dimenhydrinate 50 mg tablet (Dramamine) 50 mg PO Q4H PRN nausea and vomiting 10/05/22 [History Last Taken Unknown] diphenhydramine HCl 25 mg capsule (Allergy (diphenhydramine)) 25 mg PO ONCE PRN 10/05/22 [History Last Taken Unknown] diphenoxylate-atropine 2.5 mg-0.025 mg tablet 1 tab PO 4XD PRN 10/05/22 [History Last Taken Unknown] esomeprazole magnesium 20 mg capsule,delayed release (Nexium) 20 mg PO DAILY 10/05/22 [History Last Taken Unknown] guaifenesin 600 mg tablet, extended release 12 hr (Mucinex) 600 mg PO BID 10/05/22 [History Last Taken Unknown] lactulose 10 gram/15 mL oral solution 15 ml PO QHS 10/05/22 [History Last Taken Unknown] trazodone 150 mg tablet 150 mg PO QHS 10/05/22 [History Last Taken Unknown] vitamin B complex 1 cap PO DAILY 10/05/22 [History Last Taken Unknown] zinc sulfate 50 mg zinc (220 mg) tablet 50 mg PO DAILY 10/05/22 [History Last Taken Unknown] Allergy/AdvReac Type Severity Reaction Status Date / Time prochlorperazine Allergy Severe hallucinati Verified 10/15/22 14:18 [From Compazine] ons Sulfa (Sulfonamide Allergy Unknown unknown Verified 10/15/22 14:18 Antibiotics) Family History Other Cancer Diabetes Heart disease Surgical History History of appendectomy History of cholecystectomy History of colonoscopy History of tonsillectomy History of total abdominal hysterectomy and bilateral salpingo-oophorectomy Hx of shoulder surgery Social History household members: none Smoking Status: Former smoker how long ago did patient quit smokin alcohol intake: former year quit: 1995 substance use type: former substance user Date of last use: 1969 ROS ROS ED Constitutional Constitutional ED: Denies chills or fever(s) Eyes Eyes: Denies blurry vision or change in vision ENT ENT ED: Reports rhinorrhea; Denies sore throat Cardiovascular Cardiovascular: Reports chest pain and palpitations Respiratory/Chest Respiratory/Chest: Reports dyspnea; Denies cough Gastrointestinal Gastrointestinal: Denies abdominal pain, nausea or vomiting Genitourinary Genitourinary ED: Denies dysuria or hematuria Musculoskeletal Musculoskeletal: Reports neck pain; Denies back pain Integumentary Denies abscess or rash Neurologic Neurologic: Reports headache(s); Denies weakness Allergic/Immunologic Allergic/Immunologic ED: Denies mouth swelling or urticaria EXAM Physical Exam Const Vital Signs: 10/15/22 14:15 10/15/22 14:19 10/15/22 14:36 Temperature 97.5 F L Temperature Source Temporal Pulse Rate 66 Respiratory Rate 13 Respiratory Effort Normal Non-Labored Blood Pressure 98/58 L Blood Pressure Mean 71 Pulse Ox 96 Oxygen Delivery Method Room Air Room Air 10/15/22 15:33 Temperature Temperature Source Pulse Rate 71 Respiratory Rate 16 Respiratory Effort Blood Pressure 96/82 H Blood Pressure Mean 86 Pulse Ox 97 Oxygen Delivery Method Room Air Positive well nourished and well developed General Appearance ED: well developed and NAD HEENT normocephalic and atraumatic Neck supple and no JVD Chest Wall palpation of chest normal Resp normal respiratory effort and clear to auscultation bilaterally Effort and Inspection: Negative for respiratory distress Cardio regular rate, regular rhythm and no murmurs GI normal to inspection, nondistended, normoactive bowel sounds, soft to palpation, non-tender and non-distended Extremity normal to inspection General Extremety ED: Negative for edema or tenderness General Extremity: Negative for edema Neuro oriented x3, CN's II-XII intact bilaterally and no sensory deficits noted Sensorium / Orientation: awake and alert Motor Exam: strength 5/5 throughout Psych mental status grossly normal Heart Score History: Slightly/Non-Suspicious ECG: Normal Age: >/= 65 years Risk Factors: 1 or 2 Risk Factors Score: 3 MDM MDM MDM Narrative Medical decision making narrative: Differential diagnosis includes cardiac dysrhythmia, cardiac ischemia, pneumonia, pneumothorax, anxiety, electrolyte abnormality, and musculoskeletal pain. EKG will be obtained to assess for cardiac dysrhythmia and cardiac ischemia. Chest x-ray will be obtained to assess for pneumonia and pneumothorax. CBC will be obtained to assess for leukocytosis and anemia. Basic metabolic profile will be obtained to assess for electrolyte abnormality and renal function. High-sensitivity troponin will be obtained to assess for cardiac ischemia. 2-hour repeat high-sensitivity troponin will be obtained to assess for ongoing cardiac ischemia. Lab Data Attestation: I reviewed the patient's lab results. Lab results narrative: CBC was reviewed and was within normal limits. Basic metabolic profile was reviewed and was essentially within normal limits. High-sensitivity was reviewed and was normal at 3. Labs: Laboratory Results - last 24 hr 10/15/22 10/15/22 14:35 14:35 WBC 10.3 RBC 5.02 Hgb 14.5 Hct 44.8 MCV 89.2 MCH 28.9 MCHC 32.4 RDW Std Deviation 40.1 RDW Coeff of Dave 12.2 Plt Count 277 MPV 9.0 Immature Gran % (Auto) 0.100 Neut % (Auto) 73.5 H Lymph % (Auto) 16.7 L Linn % (Auto) 8.9 Eos % (Auto) 0.3 Baso % (Auto) 0.5 Absolute Neuts (auto) 7.6 Absolute Lymphs (auto) 1.71 Nucleated RBC % 0 Sodium 136 Potassium 4.4 Chloride 101 Carbon Dioxide 28.0 Anion Gap 7 BUN 18 Creatinine 0.93 Estim Creat Clear Calc 44.52 Est GFR (MDRD) Af Amer 77 Est GFR (MDRD) Non-Af 63 BUN/Creatinine Ratio 19.4 Glucose 122 H Calcium 9.5 Troponin I High Sens 3 Radiography Diagnostic Testing: Clinical Impression(s) from Imaging Studies Chest X-Ray 10/15/22 14:34 IMPRESSION: No acute cardiopulmonary abnormality. No interval change. Electronically Signed: Dylan Cantu MD at 15:25 EDT , Portable 1 view chest x-ray was obtained. On my independent interpretation, lung cunha are clear. There is normal cardiac silhouette. Bony thorax is normal. There is no acute process noted. Radiologist also interpreted the x-ray and agrees. EKG Initial EKG: Attestation: I personally reviewed and interpreted this EKG as follows: Interpretation: Sinus Rhythm (63) and No Acute Injury Pattern Prior EKG tracings: available for review Prior: Unchanged (10/05/2022) Treatment and Re-Evaluation :: Patient was given aspirin here. Patient was advised of her findings. Patient has a HEART score of 3. 2-hour repeat high-sensitivity troponin is pending. Care of the patient will be turned over to the oncoming physician pending results of this. If this is normal, I feel the patient could be safely discharged home. Patient was advised that she is low risk for acute cardiac event. Patient will be instructed to follow-up with her primary care physician in 5 to 7 days if her repeat troponin is normal. Patient understands and is agreeable with the plan. All questions were answered. Discharge Plan Triage Chief Complaint: Chest Pain ED Provider: Andrae Florez Dx/Rx/DC Orders Clinical Impression: Chest pain Instructions: ED Chest Pain, Uncertain Cause Prescriptions: No Action tamsulosin 0.4 mg capsule 0.4 mg PO DAILY montelukast 10 mg tablet 10 mg PO QPM thyroid (pork) [KITCHEN SUPER[employer]OR Thyroid] 60 mg tablet 60 mg PO DAILY furosemide 40 mg tablet 40 mg PO BID spironolactone 25 mg tablet 25 mg PO DAILY selenium 200 mcg tablet 200 mcg PO DAILY levomefolate calcium [L-Methylfolate] 7.5 mg tablet 7.5 mg PO DAILY potassium chloride 20 mEq tablet extended release 20 meq PO DAILY gabapentin 300 mg capsule 600 mg PO TID verapamil 120 mg tablet 60 mg PO QPM gabapentin 300 mg capsule 900 mg PO QHS cyclobenzaprine 10 mg tablet 10 mg PO BID nitroglycerin 0.4 mg tablet, sublingual 0.4 mg sublingual Q5-15M PRN Rx Instructions: do not exceed 3 doses per episode rosuvastatin 10 mg tablet 10 mg PO DAILY Centrum Women 18-400 mg-mcg tablet 1 tab PO DAILY buprenorphine 5 mcg/hour patch weekly 1 patch transdermal QWEEK Label Comments: APPLY 1 PATCH ONCE A WEEK FOR 4 WEEKS. hydrocodone-acetaminophen 5-325 mg tablet 1 tab PO BID Label Comments: TAKE 1 TABLET BY MOUTH TWICE DAILY FOR 28 DAYS Excedrin Migraine 250-250-65 mg tablet 1 tab PO Q6H PRN ascorbate calcium (vitamin C) 500 mg tablet 500 mg PO DAILY Jardiance 10 mg tablet 10 mg PO QAM Label Comments: TAKE 1 TABLET BY MOUTH ONCE DAILY WITH BREAKFAST verapamil 120 mg tablet extended release 120 mg PO QAM Label Comments: TAKE 1 TABLET BY MOUTH ONCE DAILY IN THE MORNING diphenhydramine HCl [Allergy (diphenhydramine)] 25 mg capsule 25 mg PO ONCE PRN diphenoxylate-atropine 2.5-0.025 mg tablet 1 tab PO 4XD PRN dimenhydrinate [Dramamine] 50 mg tablet 50 mg PO Q4H PRN (Reason: nausea and vomiting) guaifenesin [Mucinex] 600 mg tablet extended release 12hr 600 mg PO BID esomeprazole magnesium [Nexium] 20 mg capsule,delayed release(DR/EC) 20 mg PO DAILY trazodone 150 mg tablet 150 mg PO QHS vitamin B complex Capsule 1 cap PO DAILY zinc sulfate 50 mg zinc (220 mg) tablet 50 mg PO DAILY calcium carbonate-vitamin D3 600 mg-25 mcg (1,000 unit) tablet 2 tab PO Q OTHER DAY lactulose 10 gram/15 mL solution 15 ml PO QHS albuterol sulfate [Ventolin HFA] 90 mcg/actuation HFA aerosol inhaler 2 puff inhalation Q4H PRN (Reason: shortness of breath or wheezing) Qty: 18 6RF dicyclomine 20 mg tablet 20 mg PO BID Qty: 60 2RF Primary Care Provider: Dajuan Eric Referrals: Dajuan Eric MD [Primary Care Provider] - 5-7 Days
[2022-10-15 14:49] LABS: Absolute Lymphocyte Count 1.71 X10^3/uL (0.83-4.51); Absolute Neutrophil Count 7.6 X10^3/uL (2.0-7.7); Basophil# 0.05 X10^3/uL; Basophil% 0.5 % (0-1); Eosinophil# 0.03 X10^3/uL; Eosinophils% 0.3 % (0-5); Hematocrit 44.8 % (37-47); Hemoglobin 14.5 g/dL (12.0-15.0); Lymphocyte # 1.71 X10^3/ul (0.83-4.51); Lymphocyte % 16.7 % (19-41); Mean Corp Hgb Conc 32.4 g/dL (32-36); Mean Corpuscular Hgb 28.9 pg (27.0-32.0); Mean Corpuscular Volume 89.2 fL (81-99); Monocyte# 0.91 X10^3/uL; Monocyte% 8.9 % (0-10); NRBC Flagged by Analyzer 0 % (0-5); Neutrophil # 7.55 X10^3/uL (2.7-7.7); Neutrophil % 73.5 % (47-70); Platelet Count 277 K/mm3 (150-450); RBC Distribution Width CV 12.2 % (11.6-14.6); RBC Distribution Width SD 40.1 fl (35.1-43.9); Red Blood Count 5.02 M/mm3 (4.2-5.4); White Blood Count 10.3 K/mm3 (4.4-11.0)
[2022-10-15 15:07] LABS: Anion Gap 7 (5-15); BUN 18 mg/dL (7-18); BUN/Creat Ratio 19.4 RATIO (10-20); Calcium,Total 9.5 mg/dL (8.5-10.1); Chloride 101 mmol/L (98-107); Creatinine, Serum 0.93 mg/dL (0.55-1.02); EST Glomerular Filtration Rate 63 mL/min (>60); Est Glom Filt Rate - Afr Amer 77 mL/min (>60); Estimated Creatinine Clearance 44.52 ml/min; Glucose 122 mg/dL (74-106); Potassium 4.4 mmol/L (3.5-5.1); Sodium Level 136 mmol/L (136-145); Troponin-I HS (w/2H Reflex) 3 pg/mL (3.0-54.0)
[2022-10-15 15:33] VITALS: BP 96/82; PULSE 71; RESP 16; O2SAT 97
[2022-10-15 16:40] LABS: Reflex Troponin-HS? (from REC) Y
[2022-10-15 17:13] LABS: Troponin-I HS 4 pg/mL (3.0-54.0)
[2022-10-15 17:38] VITALS: BP 96/73; PULSE 66; RESP 16; O2SAT 95
== END 2022-10-15 17:40 | disposition home or self-care (01) ==
PROVIDERS: Emergency Medicine; Emergency Provider Emergency Medicine; PCP Internal Medicine; Visit Provider Emergency Medicine
DX: R07.9 Chest pain, unspecified (principal); E11.9 Type 2 diabetes mellitus without complications; R00.2 Palpitations; Z87.891 Personal history of nicotine dependence; I10 Essential (primary) hypertension; R06.02 Shortness of breath
CPT/HCPCS: 71045; 80048; 84484; 85025; 93005; 99285

== ENCOUNTER → 2022-11-01 | Outpatient (CLI) | payer MEDICARE, OTHER, SELFPAY | END | disposition home or self-care (01) | LOC: SL 20:13 | PROVIDERS: PCP Internal Medicine; Referring Provider Nurse Practitioner Acute Care; Visit Provider Nurse Practitioner Acute Care | DX: G47.30 Sleep apnea, unspecified (principal) | CPT/HCPCS: 95811 ==

== ENCOUNTER → 2022-11-02 | Outpatient (CLI) | payer MEDICARE, OTHER, SELFPAY ==
--- NOTE | 2022-11-02 07:59 | ECHOD_ITS ---
Reason For Study: ATRIAL FIBRILLATION Procedure This was a 2D Doppler, Color Flow transthoracic echocardiogram. The study was technically difficult. Exam performed in department. Left Ventricle Normal LV size. Left ventricular systolic function is normal. The estimated ejection fraction is 60 %. Stage 1 diastolic dysfunction. No regional wall motion abnormalities noted. Right Ventricle Normal RV size. Normal systolic function. Atria Normal left atrium. Normal right atrium. Mitral Valve There is mild to moderate mitral annular calcification. Tricuspid Valve Normal tricuspid valve. Aortic Valve Trisinus/trileaflet aortic valve. Pulmonic Valve Normal pulmonic valve. Great Vessels Normal aortic root. The pulmonary artery is normal size. Normal inferior vena cava. Pericardium/Pleural No pericardial effusion. MMode/2D Measurements & Calculations LVIDd: 3.1 cm IVSd: 0.87 cm LVOT diam: 1.8 cm LVIDs: 2.0 cm LVPWd: 0.64 cm LVOT area: 2.5 cm2 RVDd: 2.4 cm FS: 34.8 % Ao root diam: 3.4 cm LAV(MOD-bp): 21.5 ml LVAd ap4: 15.3 cm2 LAV(MOD-bp) Indexed: 12.8 ml/m2 LVLd ap4: 6.4 cm LAV(MOD-sp2): 29.7 ml EDV(MOD-sp4): 30.0 ml LAV(MOD-sp4): 14.3 ml EDV(sp4-el): 31.2 ml LVAs ap4: 9.6 cm2 LVLs ap4: 5.4 cm ESV(MOD-sp4): 13.9 ml ESV(sp4-el): 14.4 ml EF(MOD-sp4): 53.7 % EF(sp4-el): 53.8 % LVAd ap2: 17.7 cm2 SV(MOD-sp4): 16.1 ml SV(MOD-sp2): 23.7 ml LVLd ap2: 6.3 cm EDV(MOD-sp2): 41.5 ml EDV(sp2-el): 41.9 ml LVAs ap2: 10.6 cm2 LVLs ap2: 5.5 cm ESV(MOD-sp2): 17.8 ml ESV(sp2-el): 17.1 ml EF(MOD-sp2): 57.1 % SV(sp4-el): 16.8 ml LA dimension(2D): 2.6 cm LA A4 area: 7.9 cm2 RA A4 area: 9.7 cm2 Time Measurements MV dec time: 0.18 sec Doppler Measurements & Calculations MV E max naga: 67.1 cm/sec Lat Peak E' Naga: 11.2 cm/sec Med Peak E' Naga: 8.9 cm/sec MV A max naga: 102.2 cm/sec E/E' lat: 6.0 E/E' med: 7.5 MV E/A: 0.66 Ao V2 max: 94.1 cm/sec LV V1 max: 69.2 cm/sec MV dec slope: 370.3 cm/sec2 Ao max P.5 mmHg LV V1 max P.9 mmHg TELLO(V,D): 1.8 cm2 PA V2 max: 89.1 cm/sec PA max PG (full): 1.4 mmHg ECHO/Echo Complete Interpretation Summary Normal LV size. Left ventricular systolic function is normal. The estimated ejection fraction is 60 %. There is mild to moderate mitral annular calcification. Stage 1 diastolic dysfunction. Ordering Physician: Gio Villalba Referring Physician: Gio Villalba Performed By: Alicia Stephens RDCS
== END | disposition home or self-care (01) ==
LOC: CVS 07:58
PROVIDERS: PCP Internal Medicine; Referring Provider Internal Medicine Cardiovascular Disease; Visit Provider Internal Medicine Cardiovascular Disease
DX: I48.0 Paroxysmal atrial fibrillation (principal)
CPT/HCPCS: 93306

== ENCOUNTER → 2022-12-26 | Outpatient (CLI) | payer MEDICARE, OTHER, SELFPAY | END | disposition home or self-care (01) | LOC: PSN 09:12 | PROVIDERS: PCP Internal Medicine; Referring Provider Nurse Practitioner Gerontology; Visit Provider Nurse Practitioner Gerontology | DX: I48.0 Paroxysmal atrial fibrillation (principal) | CPT/HCPCS: 93225; 93226 ==

== ENCOUNTER → 2023-01-27 | Outpatient (CLI) | payer MEDICARE, OTHER, SELFPAY ==
--- NOTE | 2023-01-27 09:01 | BI_ITS ---
MAMMOGRAPHY - BILATERAL DIAGNOSTIC REASON FOR EXAM: Female, 72 years old. Right axillary lump. PERTINENT HISTORY: Non-contributory. TECHNIQUE: Digital bilateral breast jonathan (3D mammographic acquisition) in the CC and MLO projections. 2-D mediolateral oblique (MLO) and craniocaudad (CC) views of both breasts were obtained. CAD: Full Field Digital Mammography with Computer Added Detection was performed. COMPARISON: Comparison is made with prior outside examination dated September 29, 2021. FINDINGS: Breast Composition: The breasts are almost entirely fatty. There are no dominant masses or suspicious calcifications. Stable bilateral secretory calcifications. No other significant abnormalities are identified. There has been no significant change since the prior study. BI/DIAG MAMM W/CAD, BILAT IMPRESSION: Stable bilateral diagnostic mammogram. With the patient''s history of a palpable right axillary lump, correlation with ultrasound is recommended. ASSESSMENT CATEGORY: BIRADS Category 0: Incomplete. Need additional imaging evaluation. A letter regarding these results will be sent to the patient by the facility within 30 days. Approximately 10% of breast cancers are not detected by mammography. A normal mammogram should not delay biopsy of a clinically suspicious abnormality. Electronically Signed: Gus Ragland MD at 10:44 EDT ,
--- NOTE | 2023-01-27 09:02 | US_ITS ---
STUDY: ULTRASOUND BREAST - RIGHT REASON FOR EXAM: Female, 72 years old. Right axillary lump. TECHNIQUE: Axial and longitudinal images of the RIGHT breast were performed with a high resolution ultrasound transducer. # OF IMAGES: 31 COMPARISON: Comparison is made with prior mammogram done earlier in the day. FINDINGS: RIGHT Breast: The right axilla was examined with ultrasound. No sonographic abnormality is seen. US/Breast Limited Unilateral IMPRESSION: No sonographic abnormality is seen. ASSESSMENT CATEGORY: BIRADS Category 1: Negative. A letter regarding these results will be sent to the patient by the facility within 30 days. Electronically Signed: Gus Ragland MD at 11:22 EDT ,
== END | disposition home or self-care (01) ==
PROVIDERS: PCP Internal Medicine; Referring Provider Nurse Practitioner; Visit Provider Nurse Practitioner
DX: R23.1 Pallor (principal); N64.59 Other signs and symptoms in breast
CPT/HCPCS: 76642; 77062; 77066; G0279

== ENCOUNTER → 2023-01-27 | Outpatient (CLI) | payer MEDICARE, OTHER, SELFPAY | END | disposition home or self-care (01) | LOC: SL 09:09 | PROVIDERS: PCP Internal Medicine; Visit Provider Internal Medicine Critical Care Medicine | DX: G47.33 Obstructive sleep apnea (adult) (pediatric) (principal) | CPT/HCPCS: 94762 ==

== ENCOUNTER → 2023-04-04 | Outpatient (CLI) | payer MEDICARE, OTHER, SELFPAY ==
--- NOTE | 2023-04-04 10:22 | BD_ITS ---
STUDY: DUAL ENERGY X-RAY ABSORPTIOMETRY / DXA REASON FOR EXAM: Female, 72 years old. [id number] TECHNIQUE: Bone Mineral Density (BMD) measurements of lumbar spine and bilateral hips were obtained. COMPARISON: None. FINDINGS: Lumbar Spine (L1-L4): g/cm2 (1.134) / T-score (0.8) / Z-score (3.0) Findings are suggestive of normal bone density with a low fracture risk. Left Femur Total: g/cm2 (0.763) / T-score (-1.5) / Z-score (0.1) Left Femoral Neck: g/cm2 (0.616) / T-score (-2.1) / Z-score (-0.2) Right Femur Total: g/cm2 (0.753) / T-score (-1.6) / Z-score (0.0) Right Femoral Neck: g/cm2 (0.666) / T-score (-1.6) / Z-score (0.2) BD/Dexa Bone Density Study IMPRESSION: The patient is considered osteopenic as outlined below according to World Ross Organization (WHO) criteria with a high fracture risk. Reference Information: The T-score is the number of standard deviations above or below the standard which is normal for young adults at their peak bone mineral density. The World Health Organization (WHO) interprets the T-scores as follows: Above -1 Normal bone density Between -1 and -2.5 Osteopenia Equal to / or below -2.5 Osteoporosis As a practical clinical guideline, osteopenia may be graded as follows: Mild -1 through -1.5 Moderate -1.6 through -2.0 Severe -2.1 through -2.4 The Z-score is the number of standard deviations above or below age-matched controls. A Z-score of less than -1.5 would be considered abnormal. References: 1. NIH Osteoporosis and Related Bone Diseases www osteo.org 2. International Society for Clinical Densitometry www iscd.org 3. National Osteoporosis Foundation www nof.org Electronically Signed: Gus Ragland MD at 9:52 EDT ,
== END | disposition home or self-care (01) ==
LOC: OPBD 10:15
PROVIDERS: PCP Internal Medicine; Referring Provider Internal Medicine; Visit Provider Internal Medicine
DX: Z13.820 Encounter for screening for osteoporosis (principal); Z78.0 Asymptomatic menopausal state
CPT/HCPCS: 77080

== ENCOUNTER 2023-06-01 09:34 | Emergency (ER) | payer MEDICARE, OTHER, SELFPAY ==
[2023-06-01 09:35] VITALS: BP 127/109; PULSE 160; RESP 16; TEMP 36.2; O2SAT 92
--- NOTE | 2023-06-01 10:33 | RAD_ITS ---
STUDY: X-RAY CHEST REASON FOR EXAM: Female, 73 years old. Cough TECHNIQUE: PA and lateral views of the chest. COMPARISON: Comparison is made with prior study dated October 15, 2022. FINDINGS: EKG electrodes are seen. The lungs are clear and expanded. There is no demonstrated pleural abnormality. Normal size heart. Normal mediastinum and lorenzo. Normal visualized pulmonary arteries. There is atherosclerotic tortuosity of the aortic arch and descending thoracic aorta. There are degenerative changes of the visualized thoracic spine. Increased kyphosis. Stable surgical excision of the distal right clavicle. There is no demonstrated abnormality of the visualized soft tissue structures of the upper abdomen. RAD/Chest PA and Lateral IMPRESSION: No acute abnormality is present. Electronically Signed: Gus Ragland MD at 11:33 EST ,
[2023-06-01 10:51] LABS: Absolute Lymphocyte Count 2.02 X10^3/uL (0.83-4.51); Absolute Neutrophil Count 6.1 X10^3/uL (2.0-7.7); Basophil# 0.05 X10^3/uL; Basophil% 0.5 % (0-1); Eosinophil# 0.14 X10^3/uL; Eosinophils% 1.5 % (0-5); Hematocrit 46.7 % (37-47); Hemoglobin 15.2 g/dL (12.0-15.0); Lymphocyte # 2.02 X10^3/ul (0.83-4.51); Lymphocyte % 22.1 % (19-41); Mean Corp Hgb Conc 32.5 g/dL (32-36); Mean Corpuscular Hgb 29.8 pg (27.0-32.0); Mean Corpuscular Volume 91.6 fL (81-99); Mean Platelet Vol. 9.4 fl (6.2-12.0); Monocyte# 0.78 X10^3/uL; Monocyte% 8.5 % (0-10); NRBC Flagged by Analyzer 0 % (0-5); Neutrophil # 6.11 X10^3/uL (2.7-7.7); Neutrophil % 67.1 % (47-70); Platelet Count 289 K/mm3 (150-450); RBC Distribution Width CV 12.1 % (11.6-14.6); RBC Distribution Width SD 41.1 fl (35.1-43.9); White Blood Count 9.1 K/mm3 (4.4-11.0)
--- NOTE | 2023-06-01 10:53 | EKG12_ITS ---
Test Reason : REPEAT EKG Blood Pressure : / mmHG Vent. Rate : 088 BPM Atrial Rate : 088 BPM P-R Int : 144 ms QRS Dur : 088 ms QT Int : 364 ms P-R-T Axes : 044 021 041 degrees QTc Int : 440 ms Normal sinus rhythm Normal ECG Confirmed by RUMA SHAFER MD ([id number]), assistant production editor RANCHO JULIAN ([id number]) on 06/02/2023 1:57:03 PM Referred By: SHAISTA Confirmed By:RUMA SHAFER MD
--- NOTE | 2023-06-01 10:53 | EKG12_ITS ---
Test Reason : DYSRHYTHMIA Blood Pressure : / mmHG Vent. Rate : 153 BPM Atrial Rate : 000 BPM P-R Int : 000 ms QRS Dur : 086 ms QT Int : 294 ms P-R-T Axes : 000 036 051 degrees QTc Int : 469 ms Critical Test Result: High HR Atrial fibrillation with rapid ventricular response Abnormal ECG Confirmed by SONI WELSH, RUMA ([id number]), make up editor RANCHO JULIAN ([id number]) on 06/02/2023 1:57:17 PM Referred By: SHAISTA Confirmed By:RUMA SHAFER MD
[2023-06-01 10:56] VITALS: PULSE 75; RESP 11; O2SAT 91
--- NOTE | 2023-06-01 11:02 | RAD_ITS ---
STUDY: X-RAY - RIGHT HAND REASON FOR EXAM: Female, 73 years old. Pain, swelling TECHNIQUE: 3 view(s) of the hand. COMPARISON: None. FINDINGS: Normal radiocarpal articulation. Normal distal radioulnar joint. Normal visualized carpal bones. Normal carpal articulations Normal carpometacarpal articulation of the thumb. Normal second through fifth carpometacarpal joints. Normal metacarpi. Normal metacarpophalangeal joint of the thumb. Normal interphalangeal joint of the thumb. Normal proximal and distal phalanges of the thumb. Normal metacarpophalangeal joints of the second through fifth fingers. Normal proximal and distal interphalangeal joints of the second through fifth fingers. Normal phalanges of the second through fifth fingers. The soft tissue structures are unremarkable. RAD/Hand Min 3 Views IMPRESSION: Normal x-ray examination of the hand. Electronically Signed: Gus Ragland MD at 11:33 EST ,
--- NOTE | 2023-06-01 11:09 | EX.ED.UPPERE ---
HPI History of Present Illness Chief Complaint: Upper Extremity Injury Informant: patient Narrative Narrative: Patient is a 73-year-old female presenting for evaluation of unknown right hand injury with subsequent bruising and pain. It occurred sometime yesterday. She was on her way here from her cardiology office when she started feel dizzy in the elevator. She states that is consistent for when she goes in A-fib RVR. She was noted to be in A-fib with RVR. She did not take her medicines like she normally does at 9 AM this morning. Patient notes that she is not on any blood thinners because she has chronic pain and receives injections. Has been compliant with her medications. Is not sure how she actually injured her hand but think she might of hit on something. She has more pain in her wrist area but has bruising over the dorsal aspect of her right hand in the center. She does last night she felt a crunching in her hands and had to use her left hand to eat. She also notes that she has been coughing more recently. She denies any fever or chills. No significant nasal congestion. No she was exposed to COVID within the last week through a friend. Denies feeling short of breath. States she does have obstructive sleep apnea and wears CPAP at night with oxygen bleed in. She states that she does not normally wear oxygen during the day but last time she had a cold she did have to wear some supplemental oxygen during the day until she got better. Denies any abdominal pain. No other complaints or concerns at this time. [facility] Medical History Acute sinusitis, unspecified ADD (attention deficit disorder) Arthritis Asthma Atrial fibrillation Chronic fatigue syndrome Essential hypertension Fibromyalgia Folic acid deficiency GERD (gastroesophageal reflux disease) Hypothyroidism IBS (irritable bowel syndrome) Insomnia Intractable back pain Osteopenia Paroxysmal atrial fibrillation SOB (shortness of breath) Type 2 diabetes mellitus without complication, with long-term current use of insulin Home Medications levomefolate calcium 7.5 mg tablet (L-Methylfolate) 7.5 mg PO DAILY 01/13/22 [History Last Taken Unknown] montelukast 10 mg tablet 10 mg PO QPM 01/13/22 [History Last Taken Unknown] potassium chloride 20 mEq tablet,extended release 20 meq PO DAILY 01/13/22 [History Last Taken Unknown] selenium 200 mcg tablet 200 mcg PO DAILY 01/13/22 [History Last Taken Unknown] spironolactone 25 mg tablet 25 mg PO DAILY 01/13/22 [History Last Taken Unknown] tamsulosin 0.4 mg capsule 0.4 mg PO DAILY 01/13/22 [History Last Taken Unknown] thyroid (pork) 60 mg tablet (TESTING AND REGULATING TECHNICIAN Thyroid) 60 mg PO DAILY 01/13/22 [History Last Taken Unknown] ascorbate calcium (vitamin C) 500 mg tablet 500 mg PO DAILY 09/15/22 [History Last Taken Unknown] kqwtkpx-fjtesjxnzwoug-smqrzpqf 250 mg-250 mg-65 mg tablet (Excedrin Migraine) 1 tab PO Q6H PRN 09/15/22 [History Last Taken Unknown] buprenorphine 5 mcg/hour weekly transdermal patch 1 patch transdermal QWEEK 09/15/22 [History Last Taken Unknown] gabapentin 300 mg capsule 600 mg PO TID 09/15/22 [History Last Taken Unknown] gabapentin 300 mg capsule 900 mg PO QHS 09/15/22 [History Last Taken Unknown] hydrocodone-acetaminophen 5-325mg 5mg-325mg 1 tab PO BID 09/15/22 [History Last Taken Unknown] multivitamin-ferrous fumarate-folic acid 18 mg-400 mcg tablet (Centrum Women) 1 tab PO DAILY 09/15/22 [History Last Taken Unknown] nitroglycerin 0.4 mg sublingual tablet 0.4 mg sublingual Q5-15M PRN 09/15/22 [History Last Taken Unknown] rosuvastatin 10 mg tablet 10 mg PO DAILY 09/15/22 [History Last Taken Unknown] albuterol sulfate 90 mcg/actuation aerosol inhaler (Ventolin HFA) 2 puff inhalation Q4H PRN shortness of breath or wheezing #18 grams 09/19/22 [Rx Last Taken Unknown] calcium carbonate 600 mg-vitamin D3 25 mcg (1,000 unit) tablet 2 tab PO Q OTHER DAY 10/05/22 [History Last Taken Unknown] dimenhydrinate 50 mg tablet (Dramamine) 50 mg PO Q4H PRN nausea and vomiting 10/05/22 [History Last Taken Unknown] diphenhydramine HCl 25 mg capsule (Allergy (diphenhydramine)) 25 mg PO ONCE PRN 10/05/22 [History Last Taken Unknown] diphenoxylate-atropine 2.5 mg-0.025 mg tablet 1 tab PO 4XD PRN 10/05/22 [History Last Taken Unknown] esomeprazole magnesium 20 mg capsule,delayed release (Nexium) 20 mg PO DAILY 10/05/22 [History Last Taken Unknown] guaifenesin 600 mg tablet, extended release 12 hr (Mucinex) 600 mg PO BID 10/05/22 [History Last Taken Unknown] trazodone 150 mg tablet 150 mg PO QHS 10/05/22 [History Last Taken Unknown] vitamin B complex 1 cap PO DAILY 10/05/22 [History Last Taken Unknown] verapamil 120 mg tablet,extended release 120 mg PO QAM #90 tabs 11/21/22 [Rx Last Taken Unknown] verapamil 120 mg tablet 60 mg (1/2 x 120 mg) PO QPM #45 tabs 12/21/22 [Rx Last Taken Unknown] dicyclomine 20 mg tablet 20 mg PO BID #60 tabs 03/01/23 [Rx Last Taken Unknown] lactulose 10 gram/15 mL oral solution 15 ml PO QHS PRN constipation #473 mL 03/01/23 [Rx Last Taken Unknown] furosemide 40 mg tablet (Lasix) 40 mg PO DAILY #30 tabs 06/01/23 [Rx Last Taken Unknown] metoprolol tartrate 25 mg tablet 12.5 mg (1/2 x 25 mg) PO BID #30 tabs 06/01/23 [Rx Last Taken Unknown] ondansetron HCl 4 mg tablet 4 mg PO Q6H PRN 06/01/23 [History Last Taken Unknown] Allergy/AdvReac Type Severity Reaction Status Date / Time prochlorperazine Allergy Severe hallucinati Verified 06/01/23 09:46 [From Compazine] ons Sulfa (Sulfonamide Allergy Unknown unknown Verified 06/01/23 09:46 Antibiotics) ketorolac [From Toradol] Allergy Pain in Verified 06/01/23 09:46 joints Family History Other Cancer Diabetes Heart disease Surgical History H/O bilateral cataract extraction History of appendectomy History of cholecystectomy History of colonoscopy History of tonsillectomy History of total abdominal hysterectomy and bilateral salpingo-oophorectomy Hx of shoulder surgery Social History household members: none Smoking Status: Former smoker how long ago did patient quit smokin alcohol intake: former year quit: 1995 substance use type: former substance user Date of last use: 1969 ROS ROS ED Constitutional Constitutional ED: Reports other Details: + Dizziness ; Denies chills or fever(s) Eyes Eyes: Denies change in vision ENT ENT ED: Denies rhinorrhea or sore throat Cardiovascular Cardiovascular: Reports palpitations; Denies chest pain Respiratory/Chest Respiratory/Chest: Reports cough and dyspnea on exertion; Denies dyspnea Gastrointestinal Gastrointestinal: Denies abdominal pain, nausea or vomiting Musculoskeletal Musculoskeletal: Reports other Details: right hand/wrist pain ; Denies back pain or neck pain Integumentary Reports other Details: bruising to right hand Neurologic Neurologic: Denies headache(s), paresthesias or weakness Psychiatric Psychiatric: Denies anxiety Hematologic/Lymphatic Hematologic/Lymphatic: Denies easy bleeding or easy bruising EXAM Physical Exam Const Vital Signs: 06/01/23 09:35 06/01/23 10:56 Temperature 97.1 F L Temperature Source Temporal Pulse Rate 160 H 75 Respiratory Rate 16 11 L Blood Pressure 127/109 H Blood Pressure Mean 115 Pulse Ox 92 91 Oxygen Delivery Method Room Air Room Air Positive well nourished and well developed General Appearance ED: well developed and NAD HEENT Reports moist mucous membranes HEENT Narrative: Mild injection of the oropharynx with no exudate or tonsillar edema present. Normal phonation. Moist mucosal membranes. Eyes PERRL and EOMs intact bilaterally Neck full ROM and supple Neck Narrative: No JVD Chest Wall inspection of chest normal and palpation of chest normal Resp normal respiratory effort and clear to auscultation bilaterally Auscultation: Negative for rhonchi or wheezes Cardio regular rate, regular rhythm and no murmurs GI non-tender and non-distended Extremity normal to inspection and full ROM Extremity Narrative: No deformity. No pinpoint tenderness palpation and specifically of the right upper extremity. Normal range of motion of the hand. Patient does point to her right wrist and hand is a vague area of pain. Neuro oriented x3 and moves all extremities Sensorium / Orientation: alert Motor Exam: Negative for general weakness Psych mental status grossly normal Skin Skin Narrative: Approximately 3 cm circumferential area of ecchymosis noted to the dorsum of the mid right hand. No hematoma or crepitus appreciated. No active bleeding or break in the skin appreciated. MDM MDM MDM Narrative Medical decision making narrative: Patient presents to the ER for evaluation of bruising to her right hand. She started feel dizzy on her way to the ER from her cardiology office and is noted to be in atrial fibrillation with RVR upon triage. Patient did have initial EKG which did effectual A-fib RVR but self converted to normal sinus rhythm by the time I saw her. Has had some very mild cough and questionable URI symptoms and was exposed to COVID and will be tested for COVID. Will perform cardiac workup as well as evaluation for her hand with an x-ray. Suspect she sustained a contusion at some time which is what caused what appears to be bruising to the back of her hand. Patient's lab work consistent with a mildly elevation of her hemoglobin of 15.2 question she is hemoconcentrated. Her creatinine is mildly elevated from her baseline at 1.2 however she does not have an HARJINDER. TSH is normal. High since he troponin 6 and 7 respectively. X-ray of the hand as well as the chest reviewed by myself as well as radiology does not show any acute process. Patient's blood pressure is soft in the ER. She is able to walk to the bathroom however I do question if she could be intravascular depleted. She is given a 500 cc bolus and states she is feeling better. Blood pressures improved. Will discharge home. I also discussed the case with cardiology on-call given her transient episode of A-fib with RVR. He recommend starting the patient on metoprolol. Given her soft blood pressure will place her on 12.5 mg metoprolol tartrate twice daily. She is amenable to this. Again discussed with her risk and benefits of stroke and anticoagulation. She is more open to going on novel oral anticoagulation but is still concerned about bruising. Will discuss with her nurse practitioner. I did add on a BNP to her labs. I do have a page out to Karen, cardiology nurse practitioner. Patient encouraged to follow-up outpatient. She we will discuss stroke prevention with anticoagulation at her next appointment. Patient verbalized agreement understanding with this. Discharged home in stable and improved condition. After discussion with Karen, will decrease her Lasix to 40 mg daily. She will do blood pressure checks at home to keep a log and follow-up in 2 weeks for repeat check. Karen will also follow-up on the patient's BNP. Lab Data Attestation: I reviewed the patient's lab results. Lab results narrative: Laboratory Results - last 24 hr 06/01/23 06/01/23 10:12 12:55 WBC 9.1 RBC 5.10 Hgb 15.2 H Hct 46.7 MCV 91.6 MCH 29.8 MCHC 32.5 RDW Std Deviation 41.1 RDW Coeff of Dave 12.1 Plt Count 289 MPV 9.4 Immature Gran % (Auto) 0.300 Neut % (Auto) 67.1 Lymph % (Auto) 22.1 Sibley % (Auto) 8.5 Eos % (Auto) 1.5 Baso % (Auto) 0.5 Absolute Neuts (auto) 6.1 Absolute Lymphs (auto) 2.02 Nucleated RBC % 0 Sodium 138 Potassium 4.2 Chloride 100 Carbon Dioxide 29.0 Anion Gap 9 BUN 19 H Creatinine 1.20 H Est GFR (MDRD) Af Amer 57 L Est GFR (MDRD) Non-Af 47 L BUN/Creatinine Ratio 15.8 Glucose 119 H Calcium 10.2 H Total Bilirubin 0.40 AST 31 ALT 25 Alkaline Phosphatase 112 Troponin I High Sens 6 7 Total Protein 8.1 Albumin 4.0 Globulin 4.1 Albumin/Globulin Ratio 1.0 TSH 1.74 Radiography Diagnostic Testing: Diagnostic Data Chest X-Ray 06/01/23 10:33 IMPRESSION: No acute abnormality is present. Electronically Signed: Gus Ragland MD at 11:33 EST , Hand X-Ray 06/01/23 11:02 IMPRESSION: Normal x-ray examination of the hand. Electronically Signed: Gus Ragland MD at 11:33 EST , Rhythm Strip Rhythm Strip: Sinus Rhythm Rate: 88 Ectopy: None EKG Initial EKG: Attestation: I personally reviewed and interpreted this EKG as follows: Interpretation: Atrial Fibrillation Comments: Atrial fibrillation with rapid ventricular response at a rate of 153 bpm Normal axis Normal intervals Normal ST segments Compared to prior EKG on 10/15/2022 patient is now in A-fib with RVR compared to prior normal sinus rhythm Follow-up EKG: Attestation: I personally reviewed and interpreted this EKG as follows: Interpretation: Sinus Rhythm Comments: Normal sinus rhythm at a rate of 88 bpm Normal axis Normal intervals Normal ST segments Patient is no longer in atrial fibrillation compared to EKG obtained 20 minutes ago however compared to prior EKG from earlier this year, no acute changes Discharge Plan Triage Chief Complaint: Upper Extremity Injury ED Provider: Milli Jefferson Dx/Rx/DC Orders Clinical Impression: Contusion of dorsum of right hand, Paroxysmal atrial fibrillation Instructions: ED AFIB, ED Contusion, Upper Extremity Prescriptions: New metoprolol tartrate 25 mg tablet 12.5 mg PO BID Qty: 30 0RF furosemide [Lasix] 40 mg tablet 40 mg PO DAILY Qty: 30 0RF Discontinued furosemide 40 mg tablet 40 mg PO BID No Action tamsulosin 0.4 mg capsule 0.4 mg PO DAILY montelukast 10 mg tablet 10 mg PO QPM thyroid (pork) [TESTING AND REGULATING TECHNICIAN Thyroid] 60 mg tablet 60 mg PO DAILY spironolactone 25 mg tablet 25 mg PO DAILY selenium 200 mcg tablet 200 mcg PO DAILY levomefolate calcium [L-Methylfolate] 7.5 mg tablet 7.5 mg PO DAILY potassium chloride 20 mEq tablet extended release 20 meq PO DAILY gabapentin 300 mg capsule 600 mg PO TID gabapentin 300 mg capsule 900 mg PO QHS nitroglycerin 0.4 mg tablet, sublingual 0.4 mg sublingual Q5-15M PRN Rx Instructions: do not exceed 3 doses per episode rosuvastatin 10 mg tablet 10 mg PO DAILY Centrum Women 18-400 mg-mcg tablet 1 tab PO DAILY buprenorphine 5 mcg/hour patch weekly 1 patch transdermal QWEEK Patient Comments: APPLY 1 PATCH ONCE A WEEK FOR 4 WEEKS. hydrocodone-acetaminophen 5-325 mg tablet 1 tab PO BID Patient Comments: TAKE 1 TABLET BY MOUTH TWICE DAILY FOR 28 DAYS Excedrin Migraine 250-250-65 mg tablet 1 tab PO Q6H PRN ascorbate calcium (vitamin C) 500 mg tablet 500 mg PO DAILY diphenhydramine HCl [Allergy (diphenhydramine)] 25 mg capsule 25 mg PO ONCE PRN diphenoxylate-atropine 2.5-0.025 mg tablet 1 tab PO 4XD PRN dimenhydrinate [Dramamine] 50 mg tablet 50 mg PO Q4H PRN (Reason: nausea and vomiting) guaifenesin [Mucinex] 600 mg tablet extended release 12hr 600 mg PO BID esomeprazole magnesium [Nexium] 20 mg capsule,delayed release(DR/EC) 20 mg PO DAILY trazodone 150 mg tablet 150 mg PO QHS vitamin B complex Capsule 1 cap PO DAILY calcium carbonate-vitamin D3 600 mg-25 mcg (1,000 unit) tablet 2 tab PO Q OTHER DAY albuterol sulfate [Ventolin HFA] 90 mcg/actuation HFA aerosol inhaler 2 puff inhalation Q4H PRN (Reason: shortness of breath or wheezing) Qty: 18 6RF verapamil 120 mg tablet 60 mg PO QPM Qty: 45 3RF ondansetron HCl 4 mg tablet 4 mg PO Q6H PRN verapamil 120 mg tablet extended release 120 mg PO QAM Qty: 90 3RF lactulose 10 gram/15 mL solution 15 ml PO QHS PRN (Reason: constipation) Qty: 473 6RF dicyclomine 20 mg tablet 20 mg PO BID Qty: 60 6RF Primary Care Provider: Dajuan Eric Referrals: Gio Villalba MD [Med Staff - Active Staff] - 1-2 Weeks Dajuan Eric MD [Primary Care Provider] - Activity Restrictions/Additional Instructions: You do not need further labs done as they were all drawn here today. I spoke with Karen from the cardiology office. She would like to decrease her Lasix to 40 mg once a day. Please check your blood pressure at home and keep a log. Please follow-up with cardiology in 2 weeks. Please also discuss at your cardiology appointments anticoagulation for stroke prevention associated atrial fibrillation. If you have worsening symptoms please return to the emergency room.
[2023-06-01 11:15] LABS: AST(SGOT) 31 U/L (15-37); Alanine Aminotransfer ALT/SGPT 25 U/L (13-56); Alkaline Phosphatase 112 U/L (45-117); Anion Gap 9 (5-15); BUN 19 mg/dL (7-18); BUN/Creat Ratio 15.8 RATIO (10-20); Calcium,Total 10.2 mg/dL (8.5-10.1); Chloride 100 mmol/L (98-107); EST Glomerular Filtration Rate 47 mL/min (>60); Est Glom Filt Rate - Afr Amer 57 mL/min (>60); Globulin 4.1 g/dL (2.2-4.2); Glucose 119 mg/dL (74-106); Potassium 4.2 mmol/L (3.5-5.1); Protein, Total 8.1 g/dL (6.4-8.2); Sodium Level 138 mmol/L (136-145); Thyroid Stim Hormone (TSH) 1.74 uIU/mL (0.358-3.74); Troponin-I HS (w/2H Reflex) 6 pg/mL (3.0-54.0)
[2023-06-01 12:45] LABS: Reflex Troponin-HS? (from REC) Y
[2023-06-01 13:05] VITALS: BP 87/65; PULSE 88; RESP 13; O2SAT 97
[2023-06-01 13:23] LABS: Troponin-I HS 7 pg/mL (3.0-54.0)
[2023-06-01 13:58] VITALS: BP 94/67; PULSE 77
[2023-06-01 14:09] VITALS: BP 94/67; PULSE 67; RESP 26
[2023-06-01 15:26] VITALS: BP 98/60; PULSE 74; RESP 19
== END 2023-06-01 15:31 | disposition home or self-care (01) ==
PROVIDERS: Emergency Provider Emergency Medicine; PCP Internal Medicine; Visit Provider Emergency Medicine
DX: S60.221A Contusion of right hand, initial encounter (principal); I48.91 Unspecified atrial fibrillation; E11.9 Type 2 diabetes mellitus without complications; Z87.891 Personal history of nicotine dependence; I10 Essential (primary) hypertension; G89.29 Other chronic pain; E03.9 Hypothyroidism, unspecified; F98.8 Other specified behavioral and emotional disorders with onset usually occurring in childhood and adolescence; K21.9 Gastro-esophageal reflux disease without esophagitis; M79.7 Fibromyalgia; Z20.822 Contact with and (suspected) exposure to COVID-19; X58.XXXA Exposure to other specified factors, initial encounter; G47.33 Obstructive sleep apnea (adult) (pediatric); Z99.89 Dependence on other enabling machines and devices; R06.00 Dyspnea, unspecified
CPT/HCPCS: 71046; 73130; 80053; 83880; 84443; 84484; 85025; 87428; 93005; 99285; J7030; A4216

== ENCOUNTER → 2023-06-14 | Outpatient (CLI) | payer MEDICARE, OTHER, SELFPAY ==
--- NOTE | 2023-06-14 09:29 | CDU_ITS ---
Reason For Study: Dizziness Rt. Velocities/BP Lt. Velocities/BP Prox CCA 91.0/7.4 cm/sec. Prox CCA 90.4/14.2 cm/sec. Mid CCA 97.9/19.4 cm/sec. Mid CCA 90.8/18.2 cm/sec. Dist CCA 66.8/13.9 cm/sec. Dist CCA 101.8/24.8 cm/sec. Prox ICA 76.5/14.9 cm/sec. Prox ICA 88.7/19.7 cm/sec. Mid ICA 92.8/30.2 cm/sec. Mid ICA 91.9/16.0 cm/sec. Dist ICA 72.4/16.6 cm/sec. Dist ICA 97.9/22.7 cm/sec. Rt. ICA/CCA = 0.9. Lt. ICA/CCA = 1.1. Prox ECA 110.7/9.8 cm/sec. Prox ECA 74.3/9.5 cm/sec. Rt. Vert. 40.2/8.1 cm/sec. Lt. Vert. 47.4/14.2 cm/sec. Right Extracranial There is intimal thickening but no significant atherosclerotic plaque noted in the right common carotid artery. There is intimal thickening but no significant atherosclerotic plaque noted in the right internal carotid artery. There is intimal thickening but no significant atherosclerotic plaque noted in the right external carotid artery. Antegrade flow is noted in the right vertebral artery. Left Extracranial There is intimal thickening but no significant atherosclerotic plaque noted in the left common carotid artery. There is intimal thickening but no significant atherosclerotic plaque noted in the left internal carotid artery. The left internal carotid artery is very tortuous. There is intimal thickening but no significant atherosclerotic plaque noted in the left external carotid artery. Antegrade flow is noted in the left vertebral artery. Procedure Carotid Duplex [id number]. This is a Carotid Duplex examination using B-mode, color flow and specral Doppler. The exam was diagnostic. Exam performed in department. VL/Carotid Duplex Ultrasound Interpretation Summary Normal right extracranial internal carotid. Normal left extracranial internal carotid. Patent and antegrade vertebrals bilaterally. Ordering Physician: Karen Song Referring Physician: Dajuan Eric M.D. Performed By: Gian Delgado RVT
== END | disposition home or self-care (01) ==
LOC: CVS 09:28
PROVIDERS: PCP Internal Medicine; Referring Provider Nurse Practitioner Gerontology; Visit Provider Nurse Practitioner Gerontology
DX: R42 Dizziness and giddiness (principal)
CPT/HCPCS: 93880

== ENCOUNTER → 2023-06-26 | Outpatient (CLI) | payer MEDICARE, OTHER, SELFPAY ==
--- NOTE | 2023-06-26 09:00 | MRI_ITS ---
EXAM: MR LUMBAR SPINE WITHOUT INTRAVENOUS CONTRAST CLINICAL INDICATION: pain TECHNIQUE: Multiplanar and multisequence MR images of the lumbar spine without intravenous contrast. COMPARISON: Lumbar radiographs 06/08/2023, CT abdomen pelvis 06/16/2021 FINDINGS: VERTEBRAE: Accentuated lumbar lordosis unchanged from prior studies. Normal vertebral body height. No bone marrow edema. SPINAL CORD: Normal. Normal position and signal intensity of the conus medullaris. SOFT TISSUES: Normal. DISCS/SPINAL CANAL/NEURAL FORAMINA: L1-L2: Mild disc space narrowing. No disc herniation. Ligamentous hypertrophy and a set arthropathy without significant impingement on the spinal canal or neural foramina. L2-L3: Mild disc space narrowing. Mild disc protrusion, ligamentous hypertrophy and facet arthropathy results in mild narrowing of the spinal canal and moderate narrowing of the neural foramina. L3-L4: Prominent disc space narrowing with Modic type II endplate changes. Mildly prominent disc osteophyte complex, ligamentous hypertrophy and facet arthropathy results in moderate spinal stenosis and moderate right and severe left neural foraminal narrowing. L4-L5: Mild to moderate disc space narrowing. Disc bulging, prominent ligamentous hypertrophy and facet arthropathy results in severe spinal stenosis as well as severe bilateral neural foraminal narrowing. L5-S1: No significant disc space narrowing. No spinal stenosis. Moderate narrowing of the neural foramina related to uncinate joint hypertrophy. MRI/Spine Lumbar (Routine) IMPRESSION: 1. Moderate L3-4 and severe L4-5 spinal stenosis related to disc degeneration, ligamentous hypertrophy and facet arthropathy. 2. Significant neural foraminal stenoses at L3-4, L4-5 and L5-S1 related to lateral disc prominence and facet arthropathy. Electronically Signed: Dylan Cantu MD at 14:05 EST ,
--- OUTSIDE RECORDS SUMMARY | 2023-06-26 09:09 | XMS RPT_ITS | CCD ---
Author Name Unknown Address [address] [place] [address] Organization [facility] Care Team Providers Care Architect Internship Name Role Phone Unavailable Primary Care Provider Unavailleti Roach MD, Dajuan Andrew Primary Care Provider [phone] Doc WELSH, Dajuan Andrew Primary Care Provider [phone] Doc WELSH, Dajuan Andrew Primary Care Provider [phone] Darrius Alfonso APRN.CNP Unavailable DAJUAN ROACH Primary Care Unavailable KAYCE NIX Attending Unavailable DAJUAN ROACH Primary Care Unavailable DAJUAN ROACH Primary Care Unavailable DAJUAN ROACH Referring Unavailable DOC, DAJUAN Andrew Primary Care Unavailable DAJUAN ROACH Attending Unavailable DARRIUS ALFONSO Attending Unavailable DOC, DAJUAN Andrew Primary Care Unavailable DAJUAN ROACH Attending Unavailable DAJUAN ROACH Primary Care Unavailable DAJUAN ROACH Primary Care Unavailable DAJUAN ROACH Referring Unavailable DOC, DAJUAN Andrew Primary Care Unavailable DAJUAN ROACH Attending Unavailable DAJUAN ROACH Primary Care Unavailable DAJUAN ROACH Primary Care Unavailable KAYCE NIX Referring Unavailable Allergies Allergy Classification Reported Allergen(s) Allergy Type Date of Onset Reaction(s) Facility (20 sources) Sulfonamides (Antibiotic); Translations: [SULFA (SULFONAMIDE ANTIBIOTICS)] Drug Allergy 1 Anaphylaxis [facility] (16 sources) Prochlorperazine ; Translations: [PROCHLORPERAZIN E] Drug Allergy 3 Mental Status Change [facility] (13 sources) Ketorolac; Translations: [KETOROLAC] Drug Allergy 3 Other: See Comments [facility] (13 sources) pregabalin; Translations: [PREGABALIN] Drug Allergy 3 Mental Status Change [facility] (1 source) MOSQUITOS; Translations: [MOSQUITOS] Propensity to adverse reactions (disorder) 3 [facility] [place] [facility] Medications Current Medications Medication Drug Class(es) Dates Sig (Normalized) Sig (Original) amoxicillin 875 mg oral tablet (1 source) Penicillin-class Antibacterial Start: 12-26-2022 End: 12-31-2022 take 1 tablet by mouth twice daily amoxicillin (AMOXIL) 875 mg tablet Indications: Acute non-recurrent sinusitis, unspecified location Take 1 tablet by mouth twice daily for 5 days. 10 tablet 0 12/26/2022 12/31/2022 Active Completed/Discontinued Medications Medication Drug Class(es) Dates Sig (Normalized) Sig (Original) acetaminophen 250 mg / aspirin 250 mg / caffeine 65 mg oral tablet (20 sources) Platelet Aggregation Inhibitor, Nonsteroidal Anti-inflammatory Drug, Central Nervous System Stimulant, Methylxanthine take 1 tablet by mouth every six hours as needed Aspirin-Acetamino phen-Caffeine (EXCEDRIN MIGRAINE) 250-250-65 mg per tablet Take 1 tablet by mouth every 6 hours as needed for pain. 0 Active Problems Active Problems Problem Classification Problem Date Documented Da te Episodic/Chronic Abdominal pain (1 source) Pain in pelvis; Translations: [Pelvic and perineal pain] Episodic Anxiety disorders (20 sources) Mixed anxiety and depressive disorder; Translations: [Anxiety disorder, unspecified] Onset: 04-06-2022 Chronic Asthma (20 sources) Mild intermittent asthma; Translations: [Mild intermittent asthma, uncomplicated] Onset: 10-05-2021 Chronic Cardiac dysrhythmias (20 sources) Atrial fibrillation; Translations: [Unspecified atrial fibrillation] Onset: 09-08-2021 09-08-2021 Chronic Cataract (1 source) Bilateral senile combined form cataracts of eyes; Translations: [Combined forms of age-related cataract, bilateral] Chronic Chronic ulcer of skin (1 source) Pressure ulcer of sacral region, stage 1; Translations: [Pressure injury of sacral region, stage 1] Onset: 06-16-2023 Chronic Conditions associated with dizziness or vertigo (20 sources) Dizziness; Translations: [Dizziness and giddiness] Onset: 09-07-2021 Episodic Congestive heart failure; nonhypertensive (20 sources) Chronic diastolic heart failure; Translations: [Chronic diastolic (congestive) heart failure] Onset: 09-27-2021 Chronic Diabetes mellitus with complications (20 sources) Type 2 diabetes mellitus; Translations: [Type 2 diabetes mellitus with diabetic neuropathy, unspecified] Onset: 04-21-2021 Chronic Diabetes mellitus without complication (1 source) Diabetes mellitus type 2 without retinopathy; Translations: [Type 2 diabetes mellitus without complications] Chronic Disorders of lipid metabolism (20 sources) Mixed hyperlipidemia; Translations: [Mixed hyperlipidemia] Onset: 09-27-2021 Chronic Genitourinary symptoms and ill-defined conditions (1 source) Dysuria; Translations: [Dysuria] Onset: 06-16-2023 Episodic Headache; including migraine (1 source) Acute headache; Translations: [Acute nonintractable headache, unspecified headache type] Episodic Immunizations and screening for infectious disease (2 sources) Needs influenza immunization; Translations: [Encounter for immunization] Episodic Inflammation; infection of eye (except that caused by tuberculosis or sexually transmitteddisease) (1 source) Bilateral punctate keratitis of eyes; Translations: [Punctate keratitis, bilateral] Chronic Inflammation; infection of eye (except that caused by tuberculosis or sexually transmitteddisease) (1 source) Squamous blepharitis; Translations: [Squamous blepharitis right eye, upper and lower eyelids] Episodic Malaise and fatigue (1 source) Other malaise; Translations: [Malaise] Onset: 05-25-2023 Episodic Mood disorders (1 source) Mood disorders; Translations: [Anxiety and depression] Onset: 04-06-2022 Nonmalignant breast conditions (1 source) Breast problem; Translations: [Other signs and symptoms in breast] 01-24-2023 Episodic Other aftercare (1 source) Wound finding; Translations: [Encounter for other specified aftercare] Episodic Other circulatory disease (1 source) Hypotension, unspecified; Translations: [Hypotension, unspecified hypotension type] Onset: 06-16-2023 Episodic Other circulatory disease (1 source) Other specified symptoms and signs involving the circulatory and respiratory systems; Translations: [Sinus symptom] Onset: 06-16-2023 Episodic Other connective tissue disease (1 source) Swelling of lower limb; Translations: [Other specified soft tissue disorders] Episodic Other injuries and conditions due to external causes (1 source) Injury of left hand; Translations: [Unspecified injury of left wrist, hand and finger(s), initial encounter] Episodic Other injuries and conditions due to external causes (1 source) Abrasion; Translations: [Other injury of unspecified body region, initial encounter] 02-22-2023 Episodic Other skin disorders (1 source) Localized swelling, mass and lump, right upper limb; Translations: [Localized superficial swelling, mass, or lump] 01-24-2023 Episodic Other upper respiratory disease (1 source) Bleeding from nose; Translations: [Epistaxis] Episodic Other upper respiratory infections (1 source) Acute sinusitis; Translations: [Acute sinusitis, unspecified] 12-26-2022 Episodic Residual codes; unclassified (1 source) Insomnia; Translations: [Insomnia, unspecified] Episodic Residual codes; unclassified (1 source) Menopause present; Translations: [Asymptomatic menopausal state] Episodic Residual codes; unclassified (1 source) Postmenopausal state; Translations: [Asymptomatic menopausal state] Episodic Skin and subcutaneous tissue infections (1 source) Infection of skin; Translations: [Local infection of the skin and subcutaneous tissue, unspecified] 02-22-2023 Episodic Spondylosis; intervertebral disc disorders; other back problems (1 source) Degeneration of cervical intervertebral disc; Translations: [Other cervical disc degeneration, unspecified cervical region] Chronic Thyroid disorders (20 sources) Hypothyroidism; Translations: [Hypothyroidism, unspecified] Onset: 09-07-2021 09-07-2021 Chronic Transient cerebral ischemia (1 source) Cerebral ischemia; Translations: [Transient cerebral ischemic attack, unspecified] Chronic Past or Other Problems Problem Classification Problem Date Documented Da te Episodic/Chronic Other connective tissue disease (20 sources) Recurrent falls ; Translations: [Repeated falls] Onset: 09-07-2021 Episodic Other gastrointestinal disorders (16 sources) Constipation alternates with diarrhea; Translations: [Other specified symptoms and signs involving the digestive system and abdomen] Onset: 06-02-2022 Episodic Other gastrointestinal disorders (1 source) Other specified symptoms and signs involving the digestive system and abdomen; Translations: [Alternating constipation and diarrhea] Onset: 09-24-2022 Episodic Other screening for suspected conditions (not mental disorders or infectious disease) (12 sources) Patient encounter status; Translations: [Encounter for screening mammogram for malignant neoplasm of breast] Onset: 09-23-2022 Episodic Residual codes; unclassified (16 sources) Other specified personal risk factors, not elsewhere classified; Translations: [Other specified personal history presenting hazards to health] Onset: 08-07-2022 08-07-2022 Episodic Residual codes; unclassified (16 sources) Anticoagulation declined; Translations: [Procedure and treatment not carried out because of patient's decision for unspecified reasons] Onset: 08-07-2022 08-07-2022 Episodic Residual codes; unclassified (1 source) Asymptomatic menopausal state; Translations: [Asymptomatic postmenopausal status] Onset: 09-23-2022 Episodic Spondylosis; intervertebral disc disorders; other back problems (20 sources) Cervical radiculopathy; Translations: [Radiculopathy, cervical region] Onset: 09-07-2021 Episodic Results Test Name Value Interpretation Reference Range Facil ity Vital Signs Date Time Vital Sign Value Performing Clinician Nelson watson 02-22-2023 09:42-0400 Body temperature 98.29 [degF] Cindy Palmer APRN.CNP Work Phone: [facility] 02-22-2023 09:42-0400 Body weight 65.41 kg Cindy Palmer APRN.CNP Work Phone: [facility] 02-22-2023 09:42-0400 Diastolic blood pressure 76 mm[Hg] Cindy Palmer APRN.PATROL OFFICER Work Phone: [facility] 02-22-2023 09:42-0400 Heart rate 86 /min Cindy Palmer APRN.PATROL OFFICER Work Phone: [facility] 02-22-2023 09:42-0400 Respiratory rate 18 /min Cindy Palmer APRN.PATROL OFFICER Work Phone: [facility] 02-22-2023 09:42-0400 SaO2% (BldA) [Mass fraction] 96 % Cindy Palmer APRN.PATROL OFFICER Work Phone: [facility] 02-22-2023 09:42-0400 Systolic blood pressure 116 mm[Hg] Cindy Palmer CALCULATION CLERK.PATROL OFFICER Work Phone: [facility] 01-24-2023 10:00-0400 Body height 161 cm Kayce Older CALCULATION CLERK.PATROL OFFICER Work Phone: [facility] 01-24-2023 10:00-0400 Body weight 64.86 kg Kayce Older CALCULATION CLERK.PATROL OFFICER Work Phone: [facility] 01-24-2023 10:00-0400 Diastolic blood pressure 72 mm[Hg] Kayce Older CALCULATION CLERK.PATROL OFFICER Work Phone: [facility] 01-24-2023 10:00-0400 Heart rate 80 /min Kayce Older CALCULATION CLERK.PATROL OFFICER Work Phone: [facility] 01-24-2023 10:00-0400 Respiratory rate 18 /min Kayce Older CALCULATION CLERK.PATROL OFFICER Work Phone: [facility] 01-24-2023 10:00-0400 Systolic blood pressure 114 mm[Hg] Kayce Older CALCULATION CLERK.PATROL OFFICER Work Phone: [facility] 12-26-2022 10:50-0400 Body temperature 96.91 [degF] Filippo Boggs MD Work Phone: [facility] 12-26-2022 10:50-0400 Body weight 66.77 kg Filippo Boggs MD Work Phone: [facility] 12-26-2022 10:50-0400 Diastolic blood pressure 80 mm[Hg] Filippo Boggs MD Work Phone: [facility] 12-26-2022 10:50-0400 Heart rate 68 /min Filippo Boggs MD Work Phone: [facility] 12-26-2022 10:50-0400 Respiratory rate 21 /min Filippo Boggs MD Work Phone: [facility] 12-26-2022 10:50-0400 SaO2% (BldA) [Mass fraction] 98 % Filippo Boggs MD Work Phone: [facility] 12-26-2022 10:50-0400 Systolic blood pressure 120 mm[Hg] Filippo Boggs MD Work Phone: [facility] 05-25-2022 10:55-0500 Body temperature 97.39 [degF] Dajuan Roach MD Work Phone: [facility] 05-25-2022 10:55-0500 Body weight 72.12 kg Dajuan Roach MD Work Phone: [facility] 05-25-2022 10:55-0500 Diastolic blood pressure 74 mm[Hg] Dajuan Roach MD Work Phone: [facility] 05-25-2022 10:55-0500 Heart rate 104 /min Dajuan Roach MD Work Phone: [facility] 05-25-2022 10:55-0500 Respiratory rate 12 /min Dajuan Roach MD Work Phone: [facility] 05-25-2022 10:55-0500 Systolic blood pressure 120 mm[Hg] Dajuan Roach MD Work Phone: [facility] 04-06-2022 09:21-0400 Body height 160 cm Dajuan Roach MD Work Phone: [facility] 04-06-2022 09:21-0400 Body temperature 98.01 [degF] Dajuan Roach MD Work Phone: [facility] 04-06-2022 09:21-0400 Body weight 69.85 kg Dajuan Roach MD Work Phone: [facility] 04-06-2022 09:21-0400 Diastolic blood pressure 74 mm[Hg] Dajuan Roach MD Work Phone: [facility] 04-06-2022 09:21-0400 Respiratory rate 14 /min Dajuan Roach MD Work Phone: [facility] 04-06-2022 09:21-0400 Systolic blood pressure 118 mm[Hg] Dajuan Roach MD Work Phone: [facility] 01-04-2022 11:38-0400 Diastolic blood pressure 74 mm[Hg] Kayce Older CALCULATION CLERK.PATROL OFFICER Work Phone: [facility] 01-04-2022 11:38-0400 Systolic blood pressure 116 mm[Hg] Kayce Older CALCULATION CLERK.PATROL OFFICER Work Phone: [facility] 01-04-2022 11:23-0400 Body height 160.7 cm Kayce Older CALCULATION CLERK.PATROL OFFICER Work Phone: [facility] 01-04-2022 11:23-0400 Body weight 71.67 kg Kayce Older CALCULATION CLERK.PATROL OFFICER Work Phone: [facility] 01-04-2022 11:23-0400 Heart rate 88 /min Kayce Older CALCULATION CLERK.PATROL OFFICER Work Phone: [facility] 01-04-2022 11:23-0400 Respiratory rate 16 /min Kayce Older CALCULATION CLERK.PATROL OFFICER Work Phone: [facility] 10-18-2021 11:43-0400 Body temperature 98.1 [degF] Maci Athy PA-C Work Phone: [facility] 10-18-2021 11:43-0400 Body weight 72.03 kg Maci Athy PA-C Work Phone: [facility] 10-18-2021 11:43-0400 Diastolic blood pressure 68 mm[Hg] Maci Athy PA-C Work Phone: [facility] 10-18-2021 11:43-0400 Heart rate 100 /min Maci Athy PA-C Work Phone: [facility] 10-18-2021 11:43-0400 Respiratory rate 21 /min Maci Athy PA-C Work Phone: [facility] 10-18-2021 11:43-0400 SaO2% (BldA) [Mass fraction] 98 % Maci Athy PA-C Work Phone: [facility] 10-18-2021 11:43-0400 Systolic blood pressure 118 mm[Hg] Maci Athy PA-C Work Phone: [facility] 10-07-2021 08:51-0400 Body temperature 98.01 [degF] Emiliana Dahlhausen CALCULATION CLERK.PATROL OFFICER Work Phone: [facility] 10-07-2021 08:51-0400 Body weight 71.67 kg Emiliana Dahlhausen CALCULATION CLERK.PATROL OFFICER Work Phone: [facility] 10-07-2021 08:51-0400 Diastolic blood pressure 82 mm[Hg] Emiliana Dahlhausen CALCULATION CLERK.PATROL OFFICER Work Phone: [facility] 10-07-2021 08:51-0400 Heart rate 106 /min Emiliana Dahlhausen CALCULATION CLERK.PATROL OFFICER Work Phone: [facility] 10-07-2021 08:51-0400 Respiratory rate 18 /min Emiliana Dahlhausen CALCULATION CLERK.PATROL OFFICER Work Phone: [facility] 10-07-2021 08:51-0400 SaO2% (BldA) [Mass fraction] 97 % Emiliana Dahlhausen CALCULATION CLERK.PATROL OFFICER Work Phone: [facility] 10-07-2021 08:51-0400 Systolic blood pressure 132 mm[Hg] Emilaina Dahlhausen CALCULATION CLERK.PATROL OFFICER Work Phone: [facility] 10-05-2021 11:17-0400 Body temperature 97.39 [degF] Dajuan Roach MD Work Phone: [facility] 10-05-2021 11:17-0400 Body weight 72.3 kg Dajuan Roach MD Work Phone: [facility] 10-05-2021 11:17-0400 Diastolic blood pressure 74 mm[Hg] Dajuan Roach MD Work Phone: [facility] 10-05-2021 11:17-0400 Heart rate 92 /min Dajuan Roach MD Work Phone: [facility] 10-05-2021 11:17-0400 Respiratory rate 12 /min Dajuan Roach MD Work Phone: [facility] 10-05-2021 11:17-0400 SaO2% (BldA) [Mass fraction] 96 % Dajuan Roach MD Work Phone: [facility] 10-05-2021 11:17-0400 Systolic blood pressure 120 mm[Hg] Dajuan Roach MD Work Phone: [facility] 09-27-2021 09:01-0400 Body weight 72.12 kg Darriusleeann Alfonso CALCULATION CLERK.PATROL OFFICER Work Phone: [facility] 09-27-2021 09:01-0400 Diastolic blood pressure 80 mm[Hg] Darrius Alfonso CALCULATION CLERK.PATROL OFFICER Work Phone: [facility] 09-27-2021 09:01-0400 Heart rate 117 /min Darrius Alfonso CALCULATION CLERK.PATROL OFFICER Work Phone: [facility] 09-27-2021 09:01-0400 SaO2% (BldA) [Mass fraction] 96 % Darrius Alfonso CALCULATION CLERK.PATROL OFFICER Work Phone: [facility] 09-27-2021 09:01-0400 Systolic blood pressure 118 mm[Hg] Darrius Alfonso CALCULATION CLERK.PATROL OFFICER Work Phone: [facility] 09-07-2021 11:37-0400 Diastolic blood pressure 71 mm[Hg] Dajuan Roach MD Work Phone: [facility] 09-07-2021 11:37-0400 Heart rate 102 /min Dajuan Roach MD Work Phone: [facility] 09-07-2021 11:37-0400 Systolic blood pressure 108 mm[Hg] Dajuan Roach MD Work Phone: [facility] 09-07-2021 11:24-0400 Body height 162.6 cm Dajuan Roach MD Work Phone: [facility] 09-07-2021 11:24-0400 Body temperature 97.9 [degF] Dajuan Roach MD Work Phone: [facility] 09-07-2021 11:24-0400 Body weight 68.95 kg Dajuan Roach MD Work Phone: [facility] 09-07-2021 11:24-0400 Respiratory rate 16 /min Dajuan Roach MD Work Phone: [facility] Encounters Encounter Date Encounter Type Care Provider Facility Start: 06-16-2023 End: 06-17-2023 ambulatory DAJUAN ROACH Facility:[facility] Start: 05-25-2023 End: 05-26-2023 ambulatory DAJUAN ROACH Facility:[facility] Start: 05-17-2023 Refill Dajuan espinosa MD Work Phone: Internal [facility] Procedures Date Procedure Procedure Detail Performing Clinician Start: 04-06-2022 INFLUENZA SEASONAL QUADRIVALENT HIGH DOSE AGE 65+ Dajuan Roach MD Work Phone: Start: 04-06-2022 Hemoglobin A1c/Hemoglobin.total in Blood Dajuan Roach MD Work Phone: Start: 11-17-2021 Urine albumin quantitative Dajuan Roach MD Work Phone: Start: 11-17-2021 End: 11-17-2021 Comprehensive metabolic panel Darrius Alfonso CALCULATION CLERK.PATROL OFFICER Work Phone: Start: 11-17-2021 Hepatitis c antibody Vi ángel Roach MD Work Phone: Start: 10-18-2021 Urnls dip stick/tabl et rgnt auto w/o microscopy Cindy Palmer APRN.PATROL OFFICER Work Phone: Start: 09-29-2021 End: 09-29-2021 Mammography Dajuan Swift Work Phone: Start: 09-21-2021 Computerized ophthal ailyn imaging retina Theodora Rey OD Work Phone: Start: 07-14-2021 Adult depression scr eening assessment Dajuan Roach MD Work Phone: Plan of Treatment Date Care Activity Detail Author Start: 10-14-2031 Urine microalbumin profile [facility] Start: 03-07-2024 Hepatitis C antibody , confirmatory test Dilated Retinal Exam [facility] Start: 02-23-2024 Hepatitis B screening Urine Al bumin:Creatinine Ratio [facility] Start: 02-23-2024 Hepatitis B surface antibody level LDL Cholesterol [facility] Start: 01-25-2024 ANNUAL PCP TEAM [place] MADELINE DISEASE VISIT ANNUAL PCP TEAM CHRONIC DISEASE VISIT [facility] Start: 01-25-2024 SHINGRIX VACCINE (1 of 2) SAMUELS GRIX VACCINE (1 of 2) [facility] Immunizations Immunization Date Immunization Notes Care Provider Fa cili 04-06-2022 influenza, high-dose , quadrivalent vaccine (FLUZONE HIGH DOSE QUADRIVALENT) Dajuan Roach MD Work Phone: [facility] 04-06-2022 pneumococcal (PCV20) vaccine, 20 valent (PREVNAR 20) Dajuan Roach MD Work Phone: [facility] 04-06-2022 pneumococcal Conjuga te, unspecified formulation Dajuan Roach MD Work Phone: [facility] Work Phone: 04-06-2022 influenza virus vacc ine, unspecified formulation Cindy Palmer APRN.PATROL OFFICER Work Phone: [facility] 03-09-2022 COVID-19 booster vaccine, age 12+ yr, bivalent (MODERNA) Dajuan Roach MD Work Phone: [facility] Work Phone: 10-13-2021 tetanus toxoid, redu mao diphtheria toxoid, and acellular pertussis vaccine, adsorbed Darrius Alfonso CALCULATION CLERK.PATROL OFFICER Work Phone: [facility] Work Phone: 10-22-2020 COVID-19 original vaccine, booster dose, monovalent (MODERNA) Dajuan Roach MD Work Phone: [facility] Work Phone: 09-24-2020 COVID-19 original vaccine, booster dose, monovalent (MODERNA) Dajuan Roach MD Work Phone: [facility] Work Phone: 08-28-2001 TD(adult) unspecifie d formulation Darrius Daya CALCULATION CLERK.[facility] Work Phone: [facility] Work Phone: 05-17-2000 pneumococcal polysaccharide vaccine, 23 valent Darrius Daya CALCULATION CLERK.PATROL OFFICER Work Phone: [facility] Work Phone: 07-30-1993 hepatitis B vaccine, adult dosage Darrius Daya CALCULATION CLERK.PATROL OFFICER Work Phone: [facility] Work Phone: 03-04-1993 hepatitis B vaccine, adult dosage Darrius Daya CALCULATION CLERK.[facility] Work Phone: [facility] Work Phone: 02-04-1993 hepatitis B vaccine, adult dosage Darrius Daya CALCULATION CLERK.PATROL OFFICER Work Phone: [facility] Work Phone: 03-12-1992 TD(adult) unspecifie d formulation Darrius Daya CALCULATION CLERK.PATROL OFFICER Work Phone: [facility] Work Phone: Payers Date Payer Category Payer Medicare [id number] 2020 Private Health Insurance C[employer] C IGNA MEDICARE SUPPLEMENT [id number] 2020-Present [phone] [address] [place] [address] Indemnity [id number] 2020 Private Health Insurance [employer] C IGNA MEDICARE SUPPLEMENT [id number] 2020-Present [phone] [address] [place] [address] Indemnity [id number] 2017 Medicare MEDICARE MEDICAR E A AND B [id number] 2017-Present [phone] [place] [address] Medicare [id number] 2017 Medicare MEDICARE MEDICAR E A AND B [id number] 2017-Present [phone] [place] [address] Medicare [id number] 2017 Medicare [id number] Social History Date Type Detail Facility Start: 04-21-2021 End: 05-25-2022 Tobacco smoking status NHIS Ex-smoker [facility] Start: 1977 End: 12-10-1988 History of tobacco use Current smoker [facility] Start: 1977 End: 12-10-1988 History of tobacco use Cigarette Smoker [facility] Start: 04-21-2021 End: 01-24-2023 Cigarettes smoked current (pack per day) - Reported 2 [facility] Start: 04-21-2021 End: 05-25-2022 Tobacco use and exposure Smokeless tobacco non-user [facility] Start: 09-07-2021 End: 02-22-2023 Alcohol intake Ex-drinker (finding) [facility] Start: 09-07-2021 End: 01-04-2022 History SDOH Alcohol Frequency 1 [facility] Start: 09-07-2021 History SDOH Alcohol Comment none since 1995 [facility] Start: 09-07-2021 End: 05-25-2022 Tobacco Comment from age 27 [facility] Start: 1950 Sex Assigned At Not on file [facility] Start: 08-28-2021 End: 10-18-2021 Exposure to SARS-CoV-2 (event) Not sure [facility] Work Phone: Start: 1950 Sex Assigned At Female [facility] Start: 10-19-2021 End: 01-06-2022 Exposure to SARS-CoV-2 (event) Unable to assess [facility] Work Phone: Start: 01-04-2022 History SDOH Alcohol Std Drinks 98 [facility] Start: 01-04-2022 History SDOH Social Connections Phone 5 [facility] Start: 01-04-2022 End: 04-04-2022 History SDOH Social Connections Get Together 2 [facility] Start: 01-04-2022 History SDOH Social Connections Faith 3 [facility] Start: 01-04-2022 History SDOH Social Connections Living 4 [facility] Start: 01-04-2022 History SDOH Physical Activity DPW 0 [facility] Start: 01-04-2022 End: 01-24-2023 Social connection and isolation panel [facility] Do you belong to any clubs or organizations such as gnosticism groups, unions, fraternal or athletic groups, or school groups? Yes [facility] Are you now , , , , never or living with a partner? [facility] How often to you hav e a drink containing alcohol? Never [facility] How many standard dr inks containing alcohol do you have on a typical day? Patient refused [facility] How hard is it for y ou to pay for the very basics like food, housing, medical care, and heating Very hard [facility] Do you feel stress - tense, restless, nervous, or anxious, or unable to sleep at night because your mind is troubled all the time - these days [OSQ] Only a little [facility] (I/We) worried wheth er (my/our) food would run out before (I/we) got money to buy more. Sometimes true [facility] In the past 12 month s, was there a time when you were not able to pay the mortgage or rent on time? No [facility] Start: 10-07-2021 Gender identity Identifies as female gender (finding) [facility] Start: 10-07-2021 Sexual orientation Heterosexual (finding) [facility] Medical Equipment Procedure Code Equipment Code Equipment Origin al Text Equipment Identifier Dates Start: 01-04-2022 Clinical Notes 09-07-2021 to 06-16-2023 Telephone Encounter - Ree Langston LPN - 05/18/2023 12:40 PM ESTTelephone Encounter - Alex EppsJuanjoi - 05/18/2023 8:21 AM ESTTelephone Encounter - Frances Corrales - 05/17/2023 4:46 PM EST Note Date & Type Note Facility 06-16-2023 Note HNO ID: [id number] Author: DAJUAN ROACH MD Service: ? Author Type: Physician Type: Progress Notes Filed: 06/16/2023 23:04 Note Text: This note was created using [employer]riter. Subjective Patient presents with: Hospital F/U UTI Sinus Infection,frequent/recurring LESION, SKIN: fell - broke open skin between butt cheeks Abimael Nielsen is a 73 year old female here with multiple concerns. She had been getting dizzy since her ER visit 06/01 and blood pressure had been running low. She was there for right hand injury, dizziness from atrial fibrillation. She was started on metoprolol and furosemide was reduced to once daily. She developed significant edema shortly and went back to furosemide 40 mg BID. Now she was having urinary pressure. She also complained of sinus pressure and pain with nasal congestion for one week. She also fell 3 days ago and was concerned she reinjured the skin of her tailbone, where she had a prolonged wound before. Review of Systems Constitutional: Positive for fatigue. Negative for chills, fever and unexpected weight change. Eyes: Negative for visual disturbance. Respiratory: Positive for shortness of breath. Negative for cough and wheezing. Cardiovascular: Positive for leg swelling. Negative for chest pain and palpitations. Gastrointestinal: Negative for diarrhea, nausea and vomiting. Neurological: Positive for dizziness and light-headedness. Negative for syncope and headaches. ACTIVE PROBLEM LIST Type 2 Diabetes Mellitus With Diabetic Neuropathy, Without Long-Term Current Use of Insulin ([facility]) Lumbar Radiculopathy Cervical Radiculopathy Dizziness, Nonspecific Falls Frequently Hypothyroidism Paf (Paroxysmal Atrial Fibrillation) ([facility]) Mixed Hyperlipidemia Chronic Diastolic Chf (Congestive Heart Failure) ([facility]) Mild Intermittent Asthma Without Complication Anxiety and Depression At Risk for Stroke Anticoagulant Medication Declined By Patient Alternating Constipation and Diarrhea Cognitive Decline Current Outpatient Medications Medication Sig esomeprazole (NEXIUM) 20 mg capsule Take 20 mg by mouth daily at 6 am. montelukast (SINGULAIR) 10 mg tablet Take 1 tablet by mouth daily at bedtime. gabapentin (NEURONTIN) 300 mg capsule Take 2 capsules by mouth three times a day AND 3 capsules daily at bedtime. Do all this for 90 days. tamsulosin (FLOMAX) 0.4 mg Take 1 capsule by mouth once daily. ondansetron (ZOFRAN) 4 mg tablet Take 4 mg by mouth as needed. spironolactone (ALDACTONE) 25 mg tablet Take 1 tablet by mouth once daily. blood sugar diagnostic (BLOOD GLUCOSE TEST) test strip Test blood sugar(s) 1 times daily. Dx: Type 2 DM - Uncontrolled E11.65 Insulin: No dicyclomine (BENTYL) 20 mg tablet Take 1 tablet by mouth twice daily as needed. From [facility]. lactulose 10 gram/15 mL (15 mL) soln Take 10 g by mouth daily at bedtime. [facility] rosuvastatin (CRESTOR) 10 mg tablet Take 1 tablet by mouth daily at bedtime. verapamil SR (CALAN SR) 120 mg CR tablet Take 1 tablet by mouth every morning. Cholecalciferol, Vitamin D3, 125 mcg (5,000 unit) cap Take by mouth. furosemide (LASIX) 40 mg tablet Take 1 tablet by mouth twice daily. potassium chloride ER (K-DUR, KLOR-CON) 20 mEq tablet Take 1 tablet by mouth once daily. VP BIOLOGY THYROID 60 mg tablet Take 1 tablet by mouth once daily. traZODone (DESYREL) 150 mg tablet Take 2 tablets by mouth daily at bedtime. [facility] nitroglycerin sublingual (NITROSTAT) 0.4 mg SL tablet Dissolve 1 tablet under the tongue every 5 minutes as needed. Lancets lancets Test blood sugar(s) 100 times daily. Dx: Type 2 DM - Uncontrolled E11.65 Insulin: No diphenhydrAMINE (BENADRYL) 25 mg capsule Take 25 mg by mouth every 4 hours as needed. multivitamin/iron/folic acid (CENTRUM WOMEN ORAL) Take by mouth once daily. buprenorphine (BUTRANS) 5 mcg/hour Apply 1 Patch as directed one time a week. Per Dr. Carter HYDROcodone-acetaminophen (NORCO) 5-325 mg per tablet Take 1 tablet by mouth twice daily. dimenhyDRINATE (DRAMAMINE) 50 mg tablet Take 50 mg by mouth at bedtime as needed (nausea). Pplsuzs-Ewbeddvqbgboz-Mbcchgyv (EXCEDRIN MIGRAINE) 250-250-65 mg per tablet Take 1 tablet by mouth every 6 hours as needed for pain. aspirin, enteric coated (ASPIRIN, ENTERIC COATED) 81 mg EC tablet Take 1 tablet by mouth once daily. ascorbic acid, vitamin C, (VITAMIN C) 500 mg tablet Take 1 tablet by mouth once daily. selenium 200 mcg tablet Take 1 tablet by mouth once daily. metoprolol tartrate, short acting, (LOPRESSOR) 25 mg tablet Take 0.5 tablets by mouth two times a day. doxycycline (VIBRA-TABS) 100 mg tablet Take 1 tablet by mouth two times a day for 5 days. No current facility-administered medications for this visit. Objective BP 100/61 Pulse (!) 58 Resp 16 Wt 66.2 kg (146 lb) BMI 25.55 kg/m? Physical Exam Constitutional: General: She is not in acute distress. HENT (more content not included)... [facility] 05-25-2023 Note HNO ID: [id number] Author: Dajuan Roach MD Service: ? Author Type: Physician Type: Progress Notes Filed: 05/25/2023 10:14 AM Note Text: This note was created using [employer]. Subjective Abimael Nielsen is a 73 year old female. She gave a history of transient ischemic attack when she was in [place] and progressive cognitive decline since 2019. She stopped driving then because she got lost often. Memory difficulties continued and she was relying more on organization and reminders. She had burned food on the stove 2 times in the recent past, so she had to set a timer when cooking. She lived alone, and still managed her finances. She saw neurology once in 2021. Work up for TIA was negative. She could not get Jardiance due to lack of coverage and assistance. She got the RSV vaccine one week ago, and felt weak, vaguely ill, with loss of appetite. Review of Systems Constitutional: Positive for appetite change and fatigue. Negative for unexpected weight change. Respiratory: Negative for cough and shortness of breath. Cardiovascular: Positive for leg swelling. Negative for chest pain and palpitations. Gastrointestinal: Negative. Musculoskeletal: Positive for gait problem. Neurological: Negative for dizziness and headaches. ACTIVE PROBLEM LIST Type 2 Diabetes Mellitus With Diabetic Neuropathy, Without Long-Term Current Use of Insulin ([facility]) Lumbar Radiculopathy Cervical Radiculopathy Dizziness, Nonspecific Falls Frequently Hypothyroidism Paf (Paroxysmal Atrial Fibrillation) ([facility]) Mixed Hyperlipidemia Chronic Diastolic Chf (Congestive Heart Failure) ([facility]) Mild Intermittent Asthma Without Complication Anxiety and Depression At Risk for Stroke Anticoagulant Medication Declined By Patient Alternating Constipation and Diarrhea Social History Tobacco Use Smoking status: Former Packs/day: 2.00 Years: 12.00 Additional pack years: 0.00 Total pack years: 24.00 Types: Cigarettes Start date: 1977 Quit date: 12/10/1988 Years since quittin.4 Smokeless tobacco: Never Tobacco comments: from age 27 Substance Use Topics Alcohol use: Not Currently Comment: none since 1995 Drug use: Not Currently Types: Marijuana Comment: none since 1969 Current Outpatient Medications Medication Sig montelukast (SINGULAIR) 10 mg tablet Take 1 tablet by mouth daily at bedtime. gabapentin (NEURONTIN) 300 mg capsule Take 2 capsules by mouth three times a day AND 3 capsules daily at bedtime. Do all this for 90 days. tamsulosin (FLOMAX) 0.4 mg Take 1 capsule by mouth once daily. ondansetron (ZOFRAN) 4 mg tablet Take 4 mg by mouth as needed. spironolactone (ALDACTONE) 25 mg tablet Take 1 tablet by mouth once daily. verapamil 120 mg tablet Take 0.5 tablets by mouth every evening. blood sugar diagnostic (BLOOD GLUCOSE TEST) test strip Test blood sugar(s) 1 times daily. Dx: Type 2 DM - Uncontrolled E11.65 Insulin: No dicyclomine (BENTYL) 20 mg tablet Take 1 tablet by mouth twice daily as needed. From [facility] lactulose 10 gram/15 mL (15 mL) soln Take 10 g by mouth daily at bedtime. [facility] rosuvastatin (CRESTOR) 10 mg tablet Take 1 tablet by mouth daily at bedtime. verapamil SR (CALAN SR) 120 mg CR tablet Take 1 tablet by mouth every morning. Cholecalciferol, Vitamin D3, 125 mcg (5,000 unit) cap Take by mouth. famotidine (PEPCID) 20 mg tablet Take by mouth. furosemide (LASIX) 40 mg tablet Take 1 tablet by mouth twice daily. potassium chloride ER (K-DUR, KLOR-CON) 20 mEq tablet Take 1 tablet by mouth once daily. VP BIOLOGY THYROID 60 mg tablet Take 1 tablet by mouth once daily. traZODone (DESYREL) 150 mg tablet Take 2 tablets by mouth daily at bedtime. [facility]. cyclobenzaprine (FLEXERIL) 10 mg tablet Take 1 tablet by mouth twice daily. [facility] nitroglycerin sublingual (NITROSTAT) 0.4 mg SL tablet Dissolve 1 tablet under the tongue every 5 minutes as needed. Lancets lancets Test blood sugar(s) 100 times daily. Dx: Type 2 DM - Uncontrolled E11.65 Insulin: No diphenhydrAMINE (BENADRYL) 25 mg capsule Take 25 mg by mouth every 4 hours as needed. multivitamin/iron/folic acid (CENTRUM WOMEN ORAL) Take by mouth once daily. buprenorphine (BUTRANS) 5 mcg/hour Apply 1 Patch as directed one time a week. Per Dr. Carter HYDROcodone-acetaminophen (NORCO) 5-325 mg per tablet Take 1 tablet by mouth twice daily. Omeprazole Magnesium 20 mg tablet Take 20 mg by mouth once daily. dimenhyDRINATE (DRAMAMINE) 50 mg tablet Take 50 mg by mouth at bedtime as needed (nausea). guaiFENesin (MUCINEX) 600 mg 12 hr tablet Take 1,200 mg by mouth twice daily. Svfjfhu-Iqfdibclgedyd-Ryenjqop (EXCEDRIN MIGRAINE) 250-250-65 mg per tablet Take 1 tablet by mouth every 6 hours as needed for pain. aspirin, enteric coated (ASPIRIN, ENTERIC COATED) 81 mg EC tablet Take 1 tablet by mouth once daily. ascorbic acid, vitamin C, (VIT (more content not included)... [facility] 05-18-2023 Miscellaneous Notes Patient calling from pharmacy, aware rx not sent as yet. Patient does not drive, has to get a ride. Aware PCP is seeing patients may not be done until later today. She will check again tomorrow. GUNNAR: 01/24/2023 Last refill: 11/09/2022 QTY: 30 Refills: 5 Patient has been identified by name and date of : Yes Requested Prescriptions Pending Prescriptions Disp Refills montelukast (SINGULAIR) 10 mg tablet 30 tablet 5 Sig: Take 1 tablet by mouth daily at bedtime. RX INSTRUCTIONS: Patient requesting a call when RX is approved and sent to the pharmacy. Please call patient at: [phone] Frances Kathy Avery documented in this encounter [facility] 05-08-2023 Miscellaneous Notes Patient has been identified by name and date of : Yes Patient phones for refill(s): Requested Prescriptions Pending Prescriptions Disp Refills empagliflozin (JARDIANCE) 10 mg tablet 90 tablet 3 Sig: Take 1 tablet by mouth daily with breakfast. Date of last office visit in primary care: 01/24/2023 Date of next office visit in primary care: 05/25/2023 Last 2 Encounter Wt Readings: Date: Wt: 02/22/2023 65.4 kg (144 lb 3.2 oz) 01/24/2023 64.9 kg (143 lb) Previous labs/tests for medication: Diabetes: Hemoglobin A1C (%) Date Value 02/22/2023 7.1 09/23/2022 7.2 06/29/2021 6.7 04/30/2021 6.9 Hemoglobin A1C (POCT) (%) Date Value 04/06/2022 7.2 Please advise. Thank you. Bernadette Lora LPN. Abimael let her Jardiance script , because of cost. She was informed that she can get a card to help defray the cost and would like a new prescription sent in. Pharmacy verified in Epic Patient has been identified by name and date of : Yes Patient aware RX will be sent to pharmacy. No need to notify patient. Patient phones for refill(s): Requested Prescriptions Pending Prescriptions Disp Refills empagliflozin (JARDIANCE) 10 mg tablet 90 tablet 3 Sig: Take 1 tablet by mouth daily with breakfast. Date of last office visit : 01/24/2023 Date of next office visit : 05/25/2023 Last 2 Encounter Wt Readings: Date: Wt: 02/22/2023 65.4 kg (144 lb 3.2 oz) 01/24/2023 64.9 kg (143 lb) Not applicable Please advise. Beryl Avery documented in this encounter [facility] 04-14-2023 Miscellaneous Notes Patient has been identified by name and date of : Yes Patient phones for refill(s): Requested Prescriptions Pending Prescriptions Disp Refills tamsulosin (FLOMAX) 0.4 mg 90 capsule 3 Sig: Take 1 capsule by mouth once daily. Date of last office visit in primary care: 01/24/2023 Date of next office visit in primary care: 05/25/2023 Last 2 Encounter Wt Readings: Date: Wt: 02/22/2023 65.4 kg (144 lb 3.2 oz) 01/24/2023 64.9 kg (143 lb) Please advise. Thank you. YONATHAN Pozo. documented in this encounter [facility] 04-06-2023 Note HNO ID: [id number] Author: Maryjo Yarbrough LPN Service: ? Author Type: ? Type: Progress Notes Filed: 04/06/2023 12:37 PM Note Text: Scan on 04/06/2023 10:00 AM by Minal Newby PA-C: Bone Density Scan on 04/06/2023 11:04 AM by Minal Newby PA-C: Bone Density [facility] 04-06-2023 History of Present illness Narrative Scan on 04/06/2023 10:00 AM by Minal Newby PA-C: Bone Density Scan on 04/06/2023 11:04 AM by Minal Newby PA-C: Bone Density documented in this encounter [facility] 04-04-2023 Miscellaneous Notes Printed Orders faxed to [phone]. Bernadette Lora LPN Shweta from [facility] Scheduling dept calling patient has appt scheduled for Monday for mamm and bone density. They had the Mamm order but not correct, needs with micky order. And asking to have the bone density order and mamm both faxed to [phone]. Pending micky gera order needs filed and bone density order is in computer already. Please fax both when signed. Please advise documented in this encounter [facility] 02-27-2023 Miscellaneous Notes Patient notified of below results, verbalized understanding. Bernadette Lora LPN ----- Message from Kayce Jules APRN.PATROL OFFICER sent at 02/27/2023 2:01 PM EDT ----- HgbA1c 7.1, diabetes control slightly improved. The rest of her labs were normal Kayce Jules APRN.PATROL OFFICER documented in this encounter [facility] 02-24-2023 Miscellaneous Notes Patient given results and verbalized understanding of instructions given. Radha Howard Please let patient know that the wound culture revealed bacterial growth. Continue taking the antibiotic, as it is appropriate. Follow up with PCP documented in this encounter [facility] 02-22-2023 Note HNO ID: [id number] Author: Cindy Palmer APRN.GLO Service: ? Author Type: Nurse Practitioner Type: Progress Notes Filed: 02/22/2023 10:13 AM Note Text: This note was created using [employer]. Subjective Abimael Nielsen is a 72 year old female. Patient presents with ulceration and skin irritation of the gricelda cleft for two weeks. Pain is 6/10 and worse with extended periods of sitting. Patient has been using neosporin and hemorrhoid cream with no improvement of symptoms. She denies any fever, chills, or nausea. She reports that she had the same type of irritation 30 years ago that healed on its own with neosporin. She feels that today's presentation is more severe than that was. The history is provided by the patient. Review of Systems Constitutional: Negative for chills and fever. Gastrointestinal: Negative for diarrhea, nausea and vomiting. Skin: Positive for color change and wound. All other systems reviewed and are negative. Objective BP 116/76 Pulse 86 Temp 36.8 ?C (98.3 ?F) Resp 18 Wt 65.4 kg (144 lb 3.2 oz) SpO2 96% BMI 25.23 kg/m? Physical Exam Vitals reviewed. Constitutional: General: She is not in acute distress. Appearance: Normal appearance. She is normal weight. She is not ill-appearing or toxic-appearing. Cardiovascular: Rate and Rhythm: Normal rate and regular rhythm. Pulmonary: Effort: Pulmonary effort is normal. No respiratory distress. Breath sounds: Normal breath sounds. Skin: General: Skin is warm and dry. Findings: Erythema and wound present. No abscess, bruising or ecchymosis. Neurological: General: No focal deficit present. Mental Status: She is alert and oriented to person, place, and time. Mental status is at baseline. Psychiatric: Mood and Affect: Mood normal. Behavior: Behavior normal. Thought Content: Thought content normal. Judgment: Judgment normal. Assessment and Plan ASSESSMENT/PLAN: 1. Skin infection - ICD9: 686.9, ICD10: L08.9 (primary diagnosis) - Begin treatment with doxycycline - No lymphangetic streaking, this was defined for patient to watch for and to seek medical care immediately if appears - Follow up for recheck as needed - Will call with culture results - Red flags reviewed - Keep area clean and dry - NYSTATIN 100,000 UNIT/GRAM TOPICAL CREAM - DOXYCYCLINE MONOHYDRATE 100 MG TABLET - ABSCESS AND WOUND CULTURE WITH GRAM STAIN 2. Abrasion - ICD9: 919.0, ICD10: T14.8XXA - see above E Adrianna [employer] Student Supervising therapist was present and guided the care of the patient for the entire session on this date. All documentation was reviewed and agreed upon. Cindy Palmer APRN.[facility] 02-22-2023 History of Present illness Narrative Images from the original note were not included. This note was created using [employer]. Subjective Abimael Nielsen is a 72 year old female. Patient presents with ulceration and skin irritation of the gricelda cleft for two weeks. Pain is 6/10 and worse with extended periods of sitting. Patient has been using neosporin and hemorrhoid cream with no improvement of symptoms. She denies any fever, chills, or nausea. She reports that she had the same type of irritation 30 years ago that healed on its own with neosporin. She feels that today's presentation is more severe than that was. The history is provided by the patient. Review of Systems Constitutional: Negative for chills and fever. Gastrointestinal: Negative for diarrhea, nausea and vomiting. Skin: Positive for color change and wound. All other systems reviewed and are negative. Objective BP 116/76 Pulse 86 Temp 36.8 C (98.3 F) Resp 18 Wt 65.4 kg (144 lb 3.2 oz) SpO2 96% BMI 25.23 kg/m Physical Exam Vitals reviewed. Constitutional: General: She is not in acute distress. Appearance: Normal appearance. She is normal weight. She is not ill-appearing or toxic-appearing. Cardiovascular: Rate and Rhythm: Normal rate and regular rhythm. Pulmonary: Effort: Pulmonary effort is normal. No respiratory distress. Breath sounds: Normal breath sounds. Skin: General: Skin is warm and dry. Findings: Erythema and wound present. No abscess, bruising or ecchymosis. Neurological: General: No focal deficit present. Mental Status: She is alert and oriented to person, place, and time. Mental status is at baseline. Psychiatric: Mood and Affect: Mood normal. Behavior: Behavior normal. Thought Content: Thought content normal. Judgment: Judgment normal. Assessment and Plan ASSESSMENT/PLAN: 1. Skin infection - ICD9: 686.9, ICD10: L08.9 (primary diagnosis) - Begin treatment with doxycycline - No lymphangetic streaking, this was defined for patient to watch for and to seek medical care immediately if appears - Follow up for recheck as needed - Will call with culture results - Red flags reviewed - Keep area clean and dry - NYSTATIN 100,000 UNIT/GRAM TOPICAL CREAM - DOXYCYCLINE MONOHYDRATE 100 MG TABLET - ABSCESS AND WOUND CULTURE WITH GRAM STAIN 2. Abrasion - ICD9: 919.0, ICD10: T14.8XXA - see above E Adrianna [employer] Student Supervising therapist was present and guided the care of the patient for the entire session on this date. All documentation was reviewed and agreed upon. Cindy Palmer APRN.GLO documented in this encounter [facility] 01-24-2023 Note HNO ID: [id number] Author: Kayce Jules APRN.GLO Service: ? Author Type: Nurse Practitioner Type: Progress Notes Filed: 01/24/2023 10:38 AM Note Text: Abimael Nielsen is a 72 year old female here for a Medicare wellness visit. Health Risk Assessment In general, health is: Good Concerns with balance:More than half the days, ambulates with a walker Concerns with teeth or dentures:multiple missing teeth, issues with chewing Concerns with sexual function:prefers not to answer [place] anxious, stressed, angry, irritable, lonely, isolated, or had thoughts of hurting themself: More than half the days, sees psychiatry and will be seeing a counselor soon Has little interest or pleasure in doing things: Not at all Bothered by feeling down, depressed, or hopeless: Not at all Needs help with grocery shopping, cooking, housework, bathing, grooming, dressing, eating, sitting or standing, walking, using the toilet, handling finances, taking medications, using the telephone, or driving: No except she no longer drives Following safety precautions in the home environment and vehicle: removed throw rugs from floors, installed grab bars in the bathroom, handrails in stairwells, having adequate lighting, wearing seatbelt at all times?: Yes Smokes cigarettes, vapes, or chew tobacco: No Eats healthy foods including fruits, vegetables, whole grains, and fiber-rich foods: Nearly every day Number of days per week engages in exercise: limited mobility secondary to pain and vertigo. Stays as active as possible. Average alcohol consumption: Never Current Providers Specialists: I have reviewed specialist-related care of the patient in the medical record. Current care team: Patient Care Team: Dajuan Roach MD as PCP - General (Internal Medicine) Outside specialists seen: Cardiology- Dr. Villalba [facility] Immigration Associate- Dr. Arshad GI- Dr. Blas Psychiatry- [facility] Pain management- Dr. Carter Medical/Family history review Reviewed and updated problem list, medical/surgical/family/social history, medications, and allergies. Opioid use review Patient is currently using opioids. Prescribed Butrans patch and hydrocodone by Dr. Carter Does patient have risk factors for opioid abuse? No Pain overview Current pain concerns and treatment plan reviewed. Patient stable on current treatment plan. Depression screening Depression Screening PHQ-2 Score PHQ-9 Score CAROLYN-2 Total Score CAROLYN-7 Total Score 04/06/2022 0 - - - Depression screening tool completed and reviewed. Based on score and interview, patient is not at risk for depression. Screening tool discussed with patient, and I recommended no further intervention at this time. Cognitive screening Mini Cog Score: 3 Functional Observation Was the patient's timed Up AND Go test unsteady or ? 12 seconds? No Advance Care Planning End of Life planning discussed, including patient's advanced directive wishes: Yes Measurements BP 114/72 Pulse 80 Resp 18 Ht 5' 3.386 (1.61m) Wt 143 lb (64.9kg) BMI 25.02 kg/(m2). Visual acuity (required for Welcome to Medicare): follows with optometry/ophthalmology Hearing Evaluation: within normal limits Assessment/Plan Medicare annual wellness visit, subsequent (Z00.00) - Counseled on healthy diet and regular exercise - Fall avoidance - Vaccines recommended Shingrix at pharmacy - Colorectal cancer screening recommended - agrees to Cologuard - Bone density testing (scheduled at [facility]) - Opioid prescription and treatment plan review 2. Lump of axilla, right - ICD9: 782.2, ICD10: R22.31 Patient scheduled for mamm screening at [facility], will change to diagnostic mammogram with ultrasound and imaging of the right axilla 3. Type 2 diabetes mellitus with diabetic neuropathy, without long-term current use of insulin (HCC) - ICD9: 250.60, 357.2, ICD10: E11.40 - ALBUMIN/CREAT RATIO RND UR - HGB A1C - COMP METABOLIC PANEL 4. Mixed hyperlipidemia - ICD9: 272.2, ICD10: E78.2 - LIPID PANEL BASIC - COMP METABOLIC PANEL 5. Colon cancer screening - ICD9: V76.51, ICD10: Z12.11 - COLOGUARD 6. Hypothyroidism, unspecified type - ICD9: 244.9, ICD10: E03.9 - TSH BLD 7. Abnormal breast fingind See #2 Kayce Jules APRN.CNP [facility] 01-24-2023 Instructions Kayce Jules APRN.CNP - 01/24/2023 10:12 AM EDT Screening schedule The following prevention plan is recommended: SHINGRIX VACCINE(1 of 2) Never done BONE DENSITY Never done MAMMOGRAM due on 09/29/2022 COLORECTAL CANCER SCREENING due on 10/18/2022 DILATED RETINAL EXAM due on 10/19/2022 WHAT YOU CAN DO TO PREVENT FALLS Many falls can be prevented. By making some changes, you can lower your chances of falling. Four things YOU can do to prevent falls for you* and your caregiver 1. Begin a regular exercise program Exercise is one of the most important ways to lower your chances of falling. It makes you stronger and helps you feel better. Exercises that improve balance and coordination (like Conrad Chi) are the most helpful. Lack of exercise leads to weakness and increases your chances of falling. Ask your doctor or health care provider about the best type of exercise program for you. 2. Have your health care provider review your medicines Have your doctor or pharmacist review all the medicines you take, even deff-tac-tucuajv medicines. As you get older, the way medicines work in your body can change. Some medicines, or combinations of medicines, can make you sleepy or dizzy and can cause you to fall. 3. Have your vision checked Have your eyes checked by an eye doctor at least once a year. You may be wearing the wrong glasses or have a condition like glaucoma or cataracts that limits your vision. Poor vision can increase your chances of falling. 4. Make your home safer About half of all falls happen at home. To make your home safer: Remove things you can trip over (like papers, books, clothes, and shoes) from stairs and places where you walk. Remove small throw rugs or use double-sided tape to keep the rugs from slipping. Keep items you use often in cabinets you can reach easily without using a step stool. Have grab bars put in next to your toilet and in the tub or shower. Use non-slip mats in the bathtub and on shower floors. Improve the lighting in your home. As you get older, you need brighter lights to see well. Hang light-weight curtains or shades to reduce glare. Have handrails and lights put in on all staircases. Wear shoes both inside and outside the house. Avoid going barefoot or wearing slippers. For more information, contact: Centers for Disease Control and Prevention www.cdc.gov/injury * This information may not apply if you have certain medical conditions. documented in this encounter [facility] 01-24-2023 History of Present illness Narrative Abimael Nielsen is a 72 year old female here for a Medicare wellness visit. Health Risk Assessment In general, health is: Good Concerns with balance:More than half the days, ambulates with a walker Concerns with teeth or dentures:multiple missing teeth, issues with chewing Concerns with sexual function:prefers not to answer [place] anxious, stressed, angry, irritable, lonely, isolated, or had thoughts of hurting themself: More than half the days, sees psychiatry and will be seeing a counselor soon Has little interest or pleasure in doing things: Not at all Bothered by feeling down, depressed, or hopeless: Not at all Needs help with grocery shopping, cooking, housework, bathing, grooming, dressing, eating, sitting or standing, walking, using the toilet, handling finances, taking medications, using the telephone, or driving: No except she no longer drives Following safety precautions in the home environment and vehicle: removed throw rugs from floors, installed grab bars in the bathroom, handrails in stairwells, having adequate lighting, wearing seatbelt at all times?: Yes Smokes cigarettes, vapes, or chew tobacco: No Eats healthy foods including fruits, vegetables, whole grains, and fiber-rich foods: Nearly every day Number of days per week engages in exercise: limited mobility secondary to pain and vertigo. Stays as active as possible. Average alcohol consumption: Never Current Providers Specialists: I have reviewed specialist-related care of the patient in the medical record. Current care team: Patient Care Team: Dajuan Roach MD as PCP - General (Internal Medicine) Outside specialists seen: Cardiology- Dr. Villalba [facility] Immigration Associate- Dr. Arshad GI- Dr. Blas Psychiatry- [facility] Pain management- Dr. Carter Medical/Family history review Reviewed and updated problem list, medical/surgical/family/social history, medications, and allergies. Opioid use review Patient is currently using opioids. Prescribed Butrans patch and hydrocodone by Dr. Carter Does patient have risk factors for opioid abuse? No Pain overview Current pain concerns and treatment plan reviewed. Patient stable on current treatment plan. Depression screening Depression Screening PHQ-2 Score PHQ-9 Score CAROLYN-2 Total Score CAROLYN-7 Total Score 04/06/2022 0 - - - Depression screening tool completed and reviewed. Based on score and interview, patient is not at risk for depression. Screening tool discussed with patient, and I recommended no further intervention at this time. Cognitive screening Mini Cog Score: 3 Functional Observation Was the patient's timed Up & Go test unsteady or ? 12 seconds? No Advance Care Planning End of Life planning discussed, including patient's advanced directive wishes: Yes Measurements BP 114/72 Pulse 80 Resp 18 Ht 5' 3.386 (1.61m) Wt 143 lb (64.9kg) BMI 25.02 kg/(m^2). Visual acuity (required for Welcome to Medicare): follows with optometry/ophthalmology Hearing Evaluation: within normal limits Assessment/Plan Medicare annual wellness visit, subsequent (Z00.00) - Counseled on healthy diet and regular exercise - Fall avoidance - Vaccines recommended Shingrix at pharmacy - Colorectal cancer screening recommended - agrees to Cologuard - Bone density testing (scheduled at [facility]) - Opioid prescription and treatment plan review 2. Lump of axilla, right - ICD9: 782.2, ICD10: R22.31 Patient scheduled for mamm screening at [facility], will change to diagnostic mammogram with ultrasound and imaging of the right axilla 3. Type 2 diabetes mellitus with diabetic neuropathy, without long-term current use of insulin (HCC) - ICD9: 250.60, 357.2, ICD10: E11.40 - ALBUMIN/CREAT RATIO RND UR - HGB A1C - COMP METABOLIC PANEL 4. Mixed hyperlipidemia - ICD9: 272.2, ICD10: E78.2 - LIPID PANEL BASIC - COMP METABOLIC PANEL 5. Colon cancer screening - ICD9: V76.51, ICD10: Z12.11 - COLOGUARD 6. Hypothyroidism, unspecified type - ICD9: 244.9, ICD10: E03.9 - TSH BLD 7. Abnormal breast fingind See #2 Kayce Jules APRN.GLO documented in this encounter [facility] 01-06-2023 Miscellaneous Notes Patient's request for medication is as follows Requested Prescriptions Signed Prescriptions Disp Refills gabapentin (NEURONTIN) 300 mg capsule 270 capsule 2 Sig: Take 2 capsules by mouth three times daily AND 3 capsules daily at bedtime. Do all this for 90 days. Authorizing Provider: DAJUAN ROACH MD Patient has been identified by name and date of : Yes Patient phones for refill(s): Requested Prescriptions Pending Prescriptions Disp Refills gabapentin (NEURONTIN) 300 mg capsule 270 capsule 2 Sig: Take 2 capsules by mouth three times daily AND 3 capsules daily at bedtime. Do all this for 90 days. Date of last office visit in primary care: 09/23/2022 Annual Medicare: 01/24/2023 Last 2 Encounter Wt Readings: Date: Wt: 12/26/2022 66.8 kg (147 lb 3.2 oz) 07/18/2022 75.8 kg (167 lb) Previous labs/tests for medication: Not applicable Please advise. Thank you. Bernadette Lora LPN documented in this encounter [facility] 12-26-2022 Note HNO ID: [id number] Author: Filippo Boggs MD Service: ? Author Type: Physician Type: Progress Notes Filed: 12/26/2022 11:25 AM Note Text: Patient presents with: Nausea: Dizziness, fever, KAT, congestion, shaky legs, right ear pain, lump under right armpit x 1 week HPI: Feeling sick for 9 days. Positive symptoms: right Earache, sinus pressure, Fever (<100), Whole head Headache, Nausea, dizziness worse than normal, right mouth sores a couple weeks ago, Cough, Sore throat, Nasal Congestion, sneezing, body aches, lump in right axilla today Negative symptoms: Shortness of breath, Wheezing, Vomiting, Diarrhea, OTC: Ibuprofen, excedrin, dramamine, benadryl PAST MEDICAL HISTORY Diagnosis Date ADD (attention deficit disorder) Alternating constipation and diarrhea 06/02/2022 Dr. Chantell Blas, [facility] Anticoagulant medication declined by patient Anxiety and depression At risk for stroke Atrial fibrillation ([facility]) 08/30 Cellulitis of lower extremity 2019 Chronic fatigue syndrome Dizziness, nonspecific 09/07/2021 Falls frequently 09/07/2021 Fibromyalgia Folic acid deficiency GERD (gastroesophageal reflux disease) Hypothyroidism Insomnia Intractable back pain Mild intermittent asthma without complication 10/05/2021 Osteopenia Type 2 diabetes mellitus without complication, without long-term current use of insulin ([facility]) 04/21/2021 MEDICATIONS: Current Outpatient Medications Medication Sig verapamil 120 mg tablet Take 0.5 tablets by mouth every evening. blood sugar diagnostic (BLOOD GLUCOSE TEST) test strip Test blood sugar(s) 1 times daily. Dx: Type 2 DM - Uncontrolled E11.65 Insulin: No montelukast (SINGULAIR) 10 mg tablet Take 1 tablet by mouth daily at bedtime. gabapentin (NEURONTIN) 300 mg capsule Take 2 capsules by mouth three times daily AND 3 capsules daily at bedtime. Do all this for 90 days. dicyclomine (BENTYL) 20 mg tablet Take 1 tablet by mouth twice daily as needed. From [facility]. lactulose 10 gram/15 mL (15 mL) soln Take 10 g by mouth daily at bedtime. [facility]. rosuvastatin (CRESTOR) 10 mg tablet Take 1 tablet by mouth daily at bedtime. verapamil SR (CALAN SR) 120 mg CR tablet Take 1 tablet by mouth every morning. Cholecalciferol, Vitamin D3, 125 mcg (5,000 unit) cap Take by mouth. famotidine (PEPCID) 20 mg tablet Take by mouth. empagliflozin (JARDIANCE) 10 mg tablet Take 1 tablet by mouth daily with breakfast. furosemide (LASIX) 40 mg tablet Take 1 tablet by mouth twice daily. potassium chloride ER (K-DUR, KLOR-CON) 20 mEq tablet Take 1 tablet by mouth once daily. [facility] THYROID 60 mg tablet Take 1 tablet by mouth once daily. traZODone (DESYREL) 150 mg tablet Take 2 tablets by mouth daily at bedtime. [facility] cyclobenzaprine (FLEXERIL) 10 mg tablet Take 1 tablet by mouth twice daily. From [facility]. tamsulosin (FLOMAX) 0.4 mg Take 1 capsule by mouth once daily. nitroglycerin sublingual (NITROSTAT) 0.4 mg SL tablet Dissolve 1 tablet under the tongue every 5 minutes as needed. Lancets lancets Test blood sugar(s) 100 times daily. Dx: Type 2 DM - Uncontrolled E11.65 Insulin: No diphenhydrAMINE (BENADRYL) 25 mg capsule Take 25 mg by mouth every 4 hours as needed. multivitamin/iron/folic acid (CENTRUM WOMEN ORAL) Take by mouth once daily. buprenorphine (BUTRANS) 5 mcg/hour Apply 1 Patch as directed one time a week. Per Dr. Carter HYDROcodone-acetaminophen (NORCO) 5-325 mg per tablet Take 1 tablet by mouth twice daily. Omeprazole Magnesium 20 mg tablet Take 20 mg by mouth once daily. dimenhyDRINATE (DRAMAMINE) 50 mg tablet Take 50 mg by mouth at bedtime as needed (nausea). guaiFENesin (MUCINEX) 600 mg 12 hr tablet Take 1,200 mg by mouth twice daily. Rwoupkl-Ujmdlyxdzfxos-Qqygxyfx (EXCEDRIN MIGRAINE) 250-250-65 mg per tablet Take 1 tablet by mouth every 6 hours as needed for pain. aspirin, enteric coated (ASPIRIN, ENTERIC COATED) 81 mg EC tablet Take 1 tablet by mouth once daily. ascorbic acid, vitamin C, (VITAMIN C) 500 mg tablet Take 1 tablet by mouth once daily. selenium 200 mcg tablet Take 1 tablet by mouth once daily. spironolactone (ALDACTONE) 25 mg tablet Take 1 tablet by mouth once daily. methylnaltrexone 150 mg tab Take by mouth. (Patient not taking: Reported on 12/26/2022) No current facility-administered medications for this visit. ALLERGIES: ALLERGIES Allergen Reactions Sulfa (Sulfonamide * Anaphylaxis Compazine [Prochlor* Mental Status Change Lyrica [Pregabalin] Mental Status Change Toradol [Ketorolac] Other: See Comments Causes pain VITALS: BP 120/80 Pulse 68 Temp 36.1 ?C (96.9 ?F) Resp 21 Wt 66.8 kg (147 lb 3.2 oz) SpO2 98% BMI 26.08 kg/m? PHYSICAL EXAM: GEN: mildly ill appearing HEENT: PERRL, EOMI, conjunctiva clear Ears: canals clear. TMs without erythema, bulge, or effusion Sinuses: non-tender frontal sinus, tender maxillary (more content not included)... [facility] 12-26-2022 History of Present illness Narrative Patient presents with: Nausea: Dizziness, fever, KAT, congestion, shaky legs, right ear pain, lump under right armpit x 1 week HPI: Feeling sick for 9 days. Positive symptoms: right Earache, sinus pressure, Fever (<100), Whole head Headache, Nausea, dizziness worse than normal, right mouth sores a couple weeks ago, Cough, Sore throat, Nasal Congestion, sneezing, body aches, lump in right axilla today Negative symptoms: Shortness of breath, Wheezing, Vomiting, Diarrhea, OTC: Ibuprofen, excedrin, dramamine, benadryl PAST MEDICAL HISTORY Diagnosis Date ADD (attention deficit disorder) Alternating constipation and diarrhea 06/02/2022 Dr. Chantell Blas, [facility] Anticoagulant medication declined by patient Anxiety and depression At risk for stroke Atrial fibrillation (HCC) 08/30 Cellulitis of lower extremity 2019 Chronic fatigue syndrome Dizziness, nonspecific 09/07/2021 Falls frequently 09/07/2021 Fibromyalgia Folic acid deficiency GERD (gastroesophageal reflux disease) Hypothyroidism Insomnia Intractable back pain Mild intermittent asthma without complication 10/05/2021 Osteopenia Type 2 diabetes mellitus without complication, without long-term current use of insulin ([facility]) 04/21/2021 MEDICATIONS: Current Outpatient Medications Medication Sig verapamil 120 mg tablet Take 0.5 tablets by mouth every evening. blood sugar diagnostic (BLOOD GLUCOSE TEST) test strip Test blood sugar(s) 1 times daily. Dx: Type 2 DM - Uncontrolled E11.65 Insulin: No montelukast (SINGULAIR) 10 mg tablet Take 1 tablet by mouth daily at bedtime. gabapentin (NEURONTIN) 300 mg capsule Take 2 capsules by mouth three times daily AND 3 capsules daily at bedtime. Do all this for 90 days. dicyclomine (BENTYL) 20 mg tablet Take 1 tablet by mouth twice daily as needed. From [facility]. lactulose 10 gram/15 mL (15 mL) soln Take 10 g by mouth daily at bedtime. [facility]. rosuvastatin (CRESTOR) 10 mg tablet Take 1 tablet by mouth daily at bedtime. verapamil SR (CALAN SR) 120 mg CR tablet Take 1 tablet by mouth every morning. Cholecalciferol, Vitamin D3, 125 mcg (5,000 unit) cap Take by mouth. famotidine (PEPCID) 20 mg tablet Take by mouth. empagliflozin (JARDIANCE) 10 mg tablet Take 1 tablet by mouth daily with breakfast. furosemide (LASIX) 40 mg tablet Take 1 tablet by mouth twice daily. potassium chloride ER (K-DUR, KLOR-CON) 20 mEq tablet Take 1 tablet by mouth once daily. [facility] THYROID 60 mg tablet Take 1 tablet by mouth once daily. traZODone (DESYREL) 150 mg tablet Take 2 tablets by mouth daily at bedtime. [facility]. cyclobenzaprine (FLEXERIL) 10 mg tablet Take 1 tablet by mouth twice daily. From [facility]. tamsulosin (FLOMAX) 0.4 mg Take 1 capsule by mouth once daily. nitroglycerin sublingual (NITROSTAT) 0.4 mg SL tablet Dissolve 1 tablet under the tongue every 5 minutes as needed. Lancets lancets Test blood sugar(s) 100 times daily. Dx: Type 2 DM - Uncontrolled E11.65 Insulin: No diphenhydrAMINE (BENADRYL) 25 mg capsule Take 25 mg by mouth every 4 hours as needed. multivitamin/iron/folic acid (CENTRUM WOMEN ORAL) Take by mouth once daily. buprenorphine (BUTRANS) 5 mcg/hour Apply 1 Patch as directed one time a week. Per Dr. Carter HYDROcodone-acetaminophen (NORCO) 5-325 mg per tablet Take 1 tablet by mouth twice daily. Omeprazole Magnesium 20 mg tablet Take 20 mg by mouth once daily. dimenhyDRINATE (DRAMAMINE) 50 mg tablet Take 50 mg by mouth at bedtime as needed (nausea). guaiFENesin (MUCINEX) 600 mg 12 hr tablet Take 1,200 mg by mouth twice daily. Cdfhqgk-Gpwemuzqdxxlj-Liqcmdbr (EXCEDRIN MIGRAINE) 250-250-65 mg per tablet Take 1 tablet by mouth every 6 hours as needed for pain. aspirin, enteric coated (ASPIRIN, ENTERIC COATED) 81 mg EC tablet Take 1 tablet by mouth once daily. ascorbic acid, vitamin C, (VITAMIN C) 500 mg tablet Take 1 tablet by mouth once daily. selenium 200 mcg tablet Take 1 tablet by mouth once daily. spironolactone (ALDACTONE) 25 mg tablet Take 1 tablet by mouth once daily. methylnaltrexone 150 mg tab Take by mouth. (Patient not taking: Reported on 12/26/2022) No current facility-administered medications for this visit. ALLERGIES: ALLERGIES Allergen Reactions Sulfa (Sulfonamide * Anaphylaxis Compazine [Prochlor* Mental Status Change Lyrica [Pregabalin] Mental Status Change Toradol [Ketorolac] Other: See Comments Causes pain VITALS: BP 120/80 Pulse 68 Temp 36.1 C (96.9 F) Resp 21 Wt 66.8 kg (147 lb 3.2 oz) SpO2 98% BMI 26.08 kg/m PHYSICAL EXAM: GEN: mildly ill appearing HEENT: PERRL, EOMI, conjunctiva clear Ears: canals clear. TMs without erythema, bulge, or effusion Sinuses: non-tender frontal sinus, tender maxillary sinuses Throat: moist mucous membranes, mild erythema, no exudate Neck: supple, no thyromegaly, no lymphadenopathy HEART: regular rate and rhythm, no murmurs LUNGS: clear to auscultation, no wheezes or crackles, no increased WOB EXT: tender mid right axilla without appreciable mass ASSESSMENT/PLAN: 1. Acute non-recurrent sinusitis, unspecified location - ICD9: 461.9, ICD10: J01.90 - suspect viral URI and/or seasonal allergies with secondary bacterial sinusitis. - Discussed supportive care treatment. - AMOXICILLIN 875 MG TABLET Follow up with primary care if axillary mass does not resolve with resolution of this illness. Filippo Boggs MD documented in this encounter [facility] 11-08-2022 Miscellaneous Notes GUNNAR: 09/23/2022 Last refill: 05/13/2022 QTY: 30 Refills: 5 Patient's request for medication is as follows: Requested Prescriptions Pending Prescriptions Disp Refills montelukast (SINGULAIR) 10 mg tablet 30 tablet 5 Sig: Take 1 tablet by mouth daily at bedtime. Please approve the above prescription(s) to electronically send to pharmacy. Clive Johnson Ma Patient has been identified by name and date of : Yes Requested Prescriptions Pending Prescriptions Disp Refills montelukast (SINGULAIR) 10 mg tablet 30 tablet 5 Sig: Take 1 tablet by mouth daily at bedtime. RX INSTRUCTIONS: Patient aware RX will be sent to pharmacy. No need to notify patient. Mahi Glynn documented in this encounter [facility] 10-10-2022 Miscellaneous Notes Last seen pcp 09/23/22. Next appt with [facility] 01/25/23. Patient has been identified by name and date of : Yes Requested Prescriptions Pending Prescriptions Disp Refills gabapentin (NEURONTIN) 300 mg capsule 270 capsule 2 Sig: Take 2 capsules by mouth three times daily AND 3 capsules daily at bedtime. Do all this for 90 days. spironolactone (ALDACTONE) 25 mg tablet 90 tablet 0 Sig: Take 1 tablet by mouth once daily. RX INSTRUCTIONS: PLEASE send RX today for both of these as patient is completely out of this medication Please call patient to advise this has been sent to her pharmacy at [phone] Amber [employer] Electronically signed by [facility] at 10/10/2022 10:23 AM EDT documented in this encounter [facility] 09-23-2022 Miscellaneous Notes Addended by: DAJUAN ROACH on: 09/23/2022 11:40 PM Modules accepted: Orders documented in this encounter [facility] 09-23-2022 Note HNO ID: [id number] Author: Dajuan Roach MD Service: ? Author Type: Physician Type: Progress Notes Filed: 09/23/2022 11:39 PM Note Text: This note was created using Wanny[employer]. Subjective Abimael Nielsen is a 72 year old female. She transferred cardiology to Dr. Villalba. No new medications have been added to date. Her epistaxis resolved with cautery. She continued to decline anticoagulation. She sees Dr. Blas for constipation and diarrhea. There has been no discussion about colon cancer screening. Her dizziness stopped for a time but was recurring again. She preferred to do her mammogram and bone density at the local hospital. Review of Systems Constitutional: Negative for chills and fever. HENT: Negative. Respiratory: Negative for cough, shortness of breath and wheezing. Cardiovascular: Positive for leg swelling. Negative for chest pain and palpitations. Neurological: Positive for dizziness. ACTIVE PROBLEM LIST Type 2 Diabetes Mellitus With Diabetic Neuropathy, Without Long-Term Current Use of Insulin ([facility]) Lumbar Radiculopathy Cervical Radiculopathy Dizziness, Nonspecific Falls Frequently Hypothyroidism Paf (Paroxysmal Atrial Fibrillation) ([facility]) Mixed Hyperlipidemia Chronic Diastolic Chf (Congestive Heart Failure) ([facility]) Mild Intermittent Asthma Without Complication Anxiety and Depression At Risk for Stroke Anticoagulant Medication Declined By Patient Alternating Constipation and Diarrhea Current Outpatient Medications Medication Sig rosuvastatin (CRESTOR) 10 mg tablet Take 1 tablet by mouth daily at bedtime. verapamil SR (CALAN SR) 120 mg CR tablet Take 1 tablet by mouth every morning. verapamil (CALAN, ISOPTIN) 120 mg tablet Take 0.5 tablets by mouth every evening. Cholecalciferol, Vitamin D3, 125 mcg (5,000 unit) cap Take by mouth. famotidine (PEPCID) 20 mg tablet Take by mouth. methylnaltrexone 150 mg tab Take by mouth. spironolactone (ALDACTONE) 25 mg tablet Take 1 tablet by mouth once daily. empagliflozin (JARDIANCE) 10 mg tablet Take 1 tablet by mouth daily with breakfast. furosemide (LASIX) 40 mg tablet Take 1 tablet by mouth twice daily. potassium chloride ER (K-DUR, KLOR-CON) 20 mEq tablet Take 1 tablet by mouth once daily. VP BIOLOGY THYROID 60 mg tablet Take 1 tablet by mouth once daily. gabapentin (NEURONTIN) 300 mg capsule Take 2 capsules by mouth three times daily AND 3 capsules daily at bedtime. Do all this for 90 days. traZODone (DESYREL) 150 mg tablet Take 2 tablets by mouth daily at bedtime. [facility] cyclobenzaprine (FLEXERIL) 10 mg tablet Take 1 tablet by mouth twice daily. From [facility]. montelukast (SINGULAIR) 10 mg tablet Take 1 tablet by mouth daily at bedtime. tamsulosin (FLOMAX) 0.4 mg Take 1 capsule by mouth once daily. nitroglycerin sublingual (NITROSTAT) 0.4 mg SL tablet Dissolve 1 tablet under the tongue every 5 minutes as needed. Lancets lancets Test blood sugar(s) 100 times daily. Dx: Type 2 DM - Uncontrolled E11.65 Insulin: No blood sugar diagnostic (BLOOD GLUCOSE TEST) test strip Test blood sugar(s) 1 times daily. Dx: Type 2 DM - Uncontrolled E11.65 Insulin: No diphenhydrAMINE (BENADRYL) 25 mg capsule Take 25 mg by mouth every 4 hours as needed. multivitamin/iron/folic acid (CENTRUM WOMEN ORAL) Take by mouth once daily. buprenorphine (BUTRANS) 5 mcg/hour Apply 1 Patch as directed one time a week. Per Dr. Carter HYDROcodone-acetaminophen (NORCO) 5-325 mg per tablet Take 1 tablet by mouth twice daily. Omeprazole Magnesium 20 mg tablet Take 20 mg by mouth once daily. dimenhyDRINATE (DRAMAMINE) 50 mg tablet Take 50 mg by mouth at bedtime as needed (nausea). guaiFENesin (MUCINEX) 600 mg 12 hr tablet Take 1,200 mg by mouth twice daily. Wyepuoz-Qodoeujplwoku-Ejzegyiy (EXCEDRIN MIGRAINE) 250-250-65 mg per tablet Take 1 tablet by mouth every 6 hours as needed for pain. aspirin, enteric coated (ASPIRIN, ENTERIC COATED) 81 mg EC tablet Take 1 tablet by mouth once daily. ascorbic acid, vitamin C, (VITAMIN C) 500 mg tablet Take 1 tablet by mouth once daily. selenium 200 mcg tablet Take 1 tablet by mouth once daily. dicyclomine (BENTYL) 20 mg tablet Take 1 tablet by mouth twice daily as needed. From [facility]. lactulose 10 gram/15 mL (15 mL) soln Take 10 g by mouth daily at bedtime. [facility]. No current facility-administered medications for this visit. Objective BP (P) 112/70 (BP Site: Left Arm, BP Position: Sitting, BP Cuff Size: Regular Adult) Pulse (P) 78 Wt (P) 68.5 kg (151 lb) BMI (P) 26.76 kg/m? Physical Exam Constitutional: General: She is not in acute distress. HENT: Head: Normocephalic. Eyes: Conjunctiva/sclera: Conjunctivae normal. Cardiovascular: Comments: Stasis pigmentation. Abdominal: Palpations: Abdomen is soft. Tenderness: There is no abdominal tenderness. Musculoskeletal: Right lower le+ Pitting Edema present. (more content not included)... [facility] 09-23-2022 Instructions Dajuan Roach MD - 09/23/2022 11:57 AM EDT Recombinant shingles vaccine (Shingrix) is recommended; 2 doses 2-6 months apart. Please read information, check with your insurance, and schedule vaccination at your local pharmacy. A prescription is not required. If you are certain you have coverage to receive this vaccine in the office, we can schedule this for you. Non fasting blood work today. documented in this encounter [facility] 09-23-2022 History of Present illness Narrative This note was created using NoteWriter. Subjective Abimael Nielsen is a 72 year old female. She transferred cardiology to Dr. Villalba. No new medications have been added to date. Her epistaxis resolved with cautery. She continued to decline anticoagulation. She sees Dr. Blas for constipation and diarrhea. There has been no discussion about colon cancer screening. Her dizziness stopped for a time but was recurring again. She preferred to do her mammogram and bone density at the local hospital. Review of Systems Constitutional: Negative for chills and fever. HENT: Negative. Respiratory: Negative for cough, shortness of breath and wheezing. Cardiovascular: Positive for leg swelling. Negative for chest pain and palpitations. Neurological: Positive for dizziness. ACTIVE PROBLEM LIST Type 2 Diabetes Mellitus With Diabetic Neuropathy, Without Long-Term Current Use of Insulin ([facility]) Lumbar Radiculopathy Cervical Radiculopathy Dizziness, Nonspecific Falls Frequently Hypothyroidism Paf (Paroxysmal Atrial Fibrillation) ([facility]) Mixed Hyperlipidemia Chronic Diastolic Chf (Congestive Heart Failure) ([facility]) Mild Intermittent Asthma Without Complication Anxiety and Depression At Risk for Stroke Anticoagulant Medication Declined By Patient Alternating Constipation and Diarrhea Current Outpatient Medications Medication Sig rosuvastatin (CRESTOR) 10 mg tablet Take 1 tablet by mouth daily at bedtime. verapamil SR (CALAN SR) 120 mg CR tablet Take 1 tablet by mouth every morning. verapamil (CALAN, ISOPTIN) 120 mg tablet Take 0.5 tablets by mouth every evening. Cholecalciferol, Vitamin D3, 125 mcg (5,000 unit) cap Take by mouth. famotidine (PEPCID) 20 mg tablet Take by mouth. methylnaltrexone 150 mg tab Take by mouth. spironolactone (ALDACTONE) 25 mg tablet Take 1 tablet by mouth once daily. empagliflozin (JARDIANCE) 10 mg tablet Take 1 tablet by mouth daily with breakfast. furosemide (LASIX) 40 mg tablet Take 1 tablet by mouth twice daily. potassium chloride ER (K-DUR, KLOR-CON) 20 mEq tablet Take 1 tablet by mouth once daily. VP BIOLOGY THYROID 60 mg tablet Take 1 tablet by mouth once daily. gabapentin (NEURONTIN) 300 mg capsule Take 2 capsules by mouth three times daily AND 3 capsules daily at bedtime. Do all this for 90 days. traZODone (DESYREL) 150 mg tablet Take 2 tablets by mouth daily at bedtime. [facility] cyclobenzaprine (FLEXERIL) 10 mg tablet Take 1 tablet by mouth twice daily. From [facility]. montelukast (SINGULAIR) 10 mg tablet Take 1 tablet by mouth daily at bedtime. tamsulosin (FLOMAX) 0.4 mg Take 1 capsule by mouth once daily. nitroglycerin sublingual (NITROSTAT) 0.4 mg SL tablet Dissolve 1 tablet under the tongue every 5 minutes as needed. Lancets lancets Test blood sugar(s) 100 times daily. Dx: Type 2 DM - Uncontrolled E11.65 Insulin: No blood sugar diagnostic (BLOOD GLUCOSE TEST) test strip Test blood sugar(s) 1 times daily. Dx: Type 2 DM - Uncontrolled E11.65 Insulin: No diphenhydrAMINE (BENADRYL) 25 mg capsule Take 25 mg by mouth every 4 hours as needed. multivitamin/iron/folic acid (CENTRUM WOMEN ORAL) Take by mouth once daily. buprenorphine (BUTRANS) 5 mcg/hour Apply 1 Patch as directed one time a week. Per Dr. Carter HYDROcodone-acetaminophen (NORCO) 5-325 mg per tablet Take 1 tablet by mouth twice daily. Omeprazole Magnesium 20 mg tablet Take 20 mg by mouth once daily. dimenhyDRINATE (DRAMAMINE) 50 mg tablet Take 50 mg by mouth at bedtime as needed (nausea). guaiFENesin (MUCINEX) 600 mg 12 hr tablet Take 1,200 mg by mouth twice daily. Mfbywql-Zigauoyvsddyp-Utnpmmfv (EXCEDRIN MIGRAINE) 250-250-65 mg per tablet Take 1 tablet by mouth every 6 hours as needed for pain. aspirin, enteric coated (ASPIRIN, ENTERIC COATED) 81 mg EC tablet Take 1 tablet by mouth once daily. ascorbic acid, vitamin C, (VITAMIN C) 500 mg tablet Take 1 tablet by mouth once daily. selenium 200 mcg tablet Take 1 tablet by mouth once daily. dicyclomine (BENTYL) 20 mg tablet Take 1 tablet by mouth twice daily as needed. From [facility]. lactulose 10 gram/15 mL (15 mL) soln Take 10 g by mouth daily at bedtime. [facility]. No current facility-administered medications for this visit. Objective BP (P) 112/70 (BP Site: Left Arm, BP Position: Sitting, BP Cuff Size: Regular Adult) Pulse (P) 78 Wt (P) 68.5 kg (151 lb) BMI (P) 26.76 kg/m Physical Exam Constitutional: General: She is not in acute distress. HENT: Head: Normocephalic. Eyes: Conjunctiva/sclera: Conjunctivae normal. Cardiovascular: Comments: Stasis pigmentation. Abdominal: Palpations: Abdomen is soft. Tenderness: There is no abdominal tenderness. Musculoskeletal: Right lower le+ Pitting Edema present. Left lower le+ Pitting Edema present. Neurological: General: No focal deficit present. Mental Status: She is alert and oriented to person, place, and time. Comments: Ambulatory with rollator. Psychiatric: Attention and Perception: Attention normal. Mood and Affect: Mood is elated. Speech: Speech normal. Feet:Shoes and socks removed, No deformities, ulcers, calluses, normal distal pulses, and sensitive to 10 gm monofilament Assessment and Plan 1. Dizziness, nonspecific - ICD9: 780.4, ICD10: R42 (primary diagnosis) Stable. 2. Anxiety and depression - ICD9: 300.00, 311, ICD10: F41.9, F32.A Stable, [facility]. 3. Type 2 diabetes mellitus with diabetic neuropathy, without long-term current use of insulin (HCC) - ICD9: 250.60, 357.2, ICD10: E11.40 - Controlled - Continue current medications 4. Hypothyroidism, unspecified type - ICD9: 244.9, ICD10: E03.9 - continue current dose of Synthroid 5. Encounter for screening mammogram for malignant neoplasm of breast - ICD9: V76.12, ICD10: Z12.31 - GERA SCREENING 6. Encounter for screening for osteoporosis - ICD9: V82.81, ICD10: Z13.820 - DXA-AXIAL SKELETON 7. Asymptomatic postmenopausal status - ICD9: V49.81, ICD10: Z78.0 - DXA-AXIAL SKELETON Dajuan Roach MD documented in this encounter [facility] 09-05-2022 Miscellaneous Notes Last office visit: 05/25/22 Next appointment scheduled: 09/23/22 Last labs: 11/17/21 last lipid panel Patient has been identified by name and date of : Yes Requested Prescriptions Pending Prescriptions Disp Refills rosuvastatin (CRESTOR) 10 mg tablet 90 tablet 3 Sig: Take 1 tablet by mouth daily at bedtime. RX INSTRUCTIONS: Please send to [facility] Patient aware RX will be sent to pharmacy. No need to notify patient. Mahi Glynn documented in this encounter [facility] 07-18-2022 Miscellaneous Notes Refilled in another encounter Kayce Jules APRN.CNP She would like to restart due to insurance change. Patient had stopped Jardiance due to cost, noted in March. Is she going back on this? Kayce Jules APRN.CNP Patient's request for medication is as follows: Requested Prescriptions Pending Prescriptions Disp Refills empagliflozin (JARDIANCE) 10 mg tablet 30 tablet 5 Sig: Take 1 tablet by mouth once daily. Take 1 tablet once daily in the morning Please approve the above prescription(s) to electronically send to pharmacy. Clive Johnson Ma empagliflozin (JARDIANCE) 10 mg tablet (Discontinued) 30 tablet 5 02/18/2022 04/06/2022 Sig: Take 1 tablet by mouth once daily. Take 1 tablet once daily in the morning Sent to pharmacy as: empagliflozin (JARDIANCE) 10 mg tablet Class: Normal Route: ORAL Patient has changed insurance and would like Jardiance prescribed for her again. [facility] [place]. documented in this encounter [facility] 07-18-2022 Note HNO ID: [id number] Author: Darrius Alfonso APRN.PATROL OFFICER Service: ? Author Type: Nurse Practitioner Type: Progress Notes Filed: 07/18/2022 12:06 PM Note Text: Chief Complaint Patient presents with: Established Patient Follow-Up History of Present Illness: Abimael Nielsen is a pleasant 72 year old female who presents for routine follow up. She has a PMhx of chronic a-fib, fibromyalgia, hypothyroid, HTN, HLD, DM2. She was last seen in office on 09/27/2021. She continues to have intermittent palpitations she associates with A-fib. Home heart rate monitoring ranges 50s to 120s. She also endorses shortness of breath and mild chest discomfort she associates with fibromyalgia and scoliosis. She completed a recent ischemic evaluation via stress testing at [facility]. Results were requested for our records and without suggestion of ischemia. She has chronic LE swelling well controlled with diuretic therapy. We reviewed cardiac risks and modifications. We reviewed A. fib as a diagnosis, possible underlying causes and options for treatment including rate control and stroke risk reduction, antiarrhythmic medication therapy, cardioversion, ablation. She is aware she is at risk for stroke currently only taking baby ASA. PAST MEDICAL HISTORY Diagnosis Date ADD (attention deficit disorder) Anxiety and depression Atrial fibrillation (HCC) 08/30 Cellulitis of lower extremity 2019 Chronic fatigue syndrome Dizziness, nonspecific 09/07/2021 Falls frequently 09/07/2021 Fibromyalgia Folic acid deficiency GERD (gastroesophageal reflux disease) Hypothyroidism Insomnia Intractable back pain Mild intermittent asthma without complication 10/05/2021 Osteopenia Type 2 diabetes mellitus without complication, without long-term current use of insulin (HCC) 04/21/2021 PAST SURGICAL HISTORY Procedure Laterality Date APPENDECTOMY 1973 COLONOSCOPY SCREENING 08/2020, 08/2020 EXTRACTION ERUPTED TOOTH/EXR 1973 HYSTERECTOMY HX 1989 Endometriosis. Adenomyosis. Total hysterectomy, BSO LAPAROSCOPIC CHOLECYSTECTOMY 1997 LIGATE FALLOPIAN TUBE Bilateral 1989 SHOULDER SURGERY HX Right 1984 right shoulder X 3. 1978,1980,1983 TONSILLECTOMY HX 1972 FAMILY HISTORY Problem Relation Age of Onset Depression Mother Depression Father Anxiety disorder Father Social History Tobacco Use Smoking status: Former Packs/day: 2.00 Years: 12.00 Pack years: 24.00 Types: Cigarettes Start date: 1977 Quit date: 12/10/1988 Years since quittin.6 Smokeless tobacco: Never Tobacco comments: from age 27 Substance Use Topics Alcohol use: Not Currently Comment: none since 1995 Drug use: Not Currently Types: Marijuana Comment: none since 1969 ALLERGIES Allergen Reactions Sulfa (Sulfonamide * Anaphylaxis Medications: Current Outpatient Medications Medication Sig Dispense Refill VP BIOLOGY THYROID 60 mg tablet Take 1 tablet by mouth once daily. 90 tablet 3 gabapentin (NEURONTIN) 300 mg capsule Take 2 capsules by mouth three times daily AND 3 capsules daily at bedtime. Do all this for 90 days. 270 capsule 2 verapamil SR (CALAN SR) 120 mg CR tablet Take 1 tablet by mouth every morning. 90 tablet 0 verapamil (CALAN, ISOPTIN) 120 mg tablet Take 0.5 tablets by mouth every evening. 45 tablet 0 traZODone (DESYREL) 150 mg tablet Take 2 tablets by mouth daily at bedtime. [facility]. cyclobenzaprine (FLEXERIL) 10 mg tablet Take 1 tablet by mouth twice daily. From [facility]. montelukast (SINGULAIR) 10 mg tablet Take 1 tablet by mouth daily at bedtime. 30 tablet 5 tamsulosin (FLOMAX) 0.4 mg Take 1 capsule by mouth once daily. 90 capsule 3 nitroglycerin sublingual (NITROSTAT) 0.4 mg SL tablet Dissolve 1 tablet under the tongue every 5 minutes as needed. 25 tablet 2 Lancets lancets Test blood sugar(s) 100 times daily. Dx: Type 2 DM - Uncontrolled E11.65 Insulin: No 100 Each 11 blood sugar diagnostic (BLOOD GLUCOSE TEST) test strip Test blood sugar(s) 1 times daily. Dx: Type 2 DM - Uncontrolled E11.65 Insulin: No 100 Strip 3 rosuvastatin (CRESTOR) 10 mg tablet Take 1 tablet by mouth daily at bedtime. 90 tablet 3 potassium chloride ER (K-DUR, KLOR-CON) 20 mEq tablet Take 1 tablet by mouth once daily. 90 tablet 3 diphenhydrAMINE (BENADRYL) 25 mg capsule Take 25 mg by mouth every 4 hours as needed. multivitamin/iron/folic acid (CENTRUM WOMEN ORAL) Take by mouth once daily. buprenorphine (BUTRANS) 5 mcg/hour Apply 1 Patch as directed one time a week. Per Dr. Carter HYDROcodone-acetaminophen (NORCO) 5-325 mg per tablet Take 1 tablet by mouth twice daily. Omeprazole Magnesium 20 mg tablet Take 20 mg by mouth once daily. dimenhyDRINATE (DRAMAMINE) 50 mg tablet Take 50 mg by mouth at bedtime as needed (nausea). guaiFENesin (MUCINEX) 600 mg 12 hr tablet Take 1,200 mg by mouth twice daily. Ovwznag-Rijtvlwiiuyoc-Gneewwjr (EXCEDRIN MIGRAINE (more content not included)... [facility] 07-14-2022 Miscellaneous Notes Patient has been identified by name and date of : Yes, Patient phones for refill(s): Requested Prescriptions Pending Prescriptions Disp Refills VP BIOLOGY THYROID 60 mg tablet 90 tablet 1 Sig: Take 1 tablet by mouth once daily. Date of last office visit in primary care: 05/25/2022 4 month follow-up: 09/23/2022 Last 2 Encounter Wt Readings: Date: Wt: 05/25/2022 72.1 kg (159 lb) 04/06/2022 69.9 kg (154 lb) Previous labs/tests for medication: Thyroid: TSH Date Value 09/07/2021 1.290 mIU/L 06/29/2021 5.190 uU/mL Please advise. Thank you. Bernadette Lora LPN Patient has been identified by name and date of : Yes Requested Prescriptions Pending Prescriptions Disp Refills VP BIOLOGY THYROID 60 mg tablet 90 tablet 1 Sig: Take 1 tablet by mouth once daily. RX INSTRUCTIONS: Patient aware RX will be sent to pharmacy. No need to notify patient. Adrianne Werner Pss documented in this encounter [facility] 07-04-2022 Miscellaneous Notes GUNNAR: 05/25/2022 Last refill: 03/25/2022 QTY: 270 Refills: 2 Patient stated she is out of medication. Wants to know if rx can be sent today. Patient has been identified by name and date of : Yes Requested Prescriptions Pending Prescriptions Disp Refills gabapentin (NEURONTIN) 300 mg capsule 270 capsule 2 Sig: Take 2 capsules by mouth three times daily AND 3 capsules daily at bedtime. Do all this for 90 days. RX INSTRUCTIONS: Patient aware RX will be sent to pharmacy. No need to notify patient. Camille Cao Pss documented in this encounter [facility] 05-25-2022 Instructions Dajuan Roach MD - 05/25/2022 11:44 AM EST BLOOD WORK TODAY. SEE [facility]. documented in this encounter [facility] 05-25-2022 History of Present illness Narrative This note was created using Wannyi. Subjective Abimael Nielsen is a 72 year old female. She's been having recurrent nosebleeds for the past month, associated with headaches. She did not go to the ER, but she reported seeing Dr. Rdz at some point who recommended she increase fluids. She was here with a freezer bag full of blood soaked tissues, reportedly all from this morning. [facility] and I reconciled her medications. We clarified how she was taking 2 verapamil preparations. Review of Systems Constitutional: Negative for chills and fever. HENT: Negative for sinus pain and sore throat. Respiratory: Positive for cough. Negative for shortness of breath and wheezing. Cardiovascular: Negative for chest pain, palpitations and leg swelling. Gastrointestinal: Negative for blood in stool. Genitourinary: Negative for hematuria. Hematological: Does not bruise/bleed easily. ACTIVE PROBLEM LIST Type 2 Diabetes Mellitus With Diabetic Neuropathy, Without Long-Term Current Use of Insulin (Hcc) Lumbar Radiculopathy Cervical Radiculopathy Dizziness, Nonspecific Falls Frequently Hypothyroidism Paf (Paroxysmal Atrial Fibrillation) ([facility]) Mixed Hyperlipidemia Chronic Diastolic Chf (Congestive Heart Failure) ([facility]) Mild Intermittent Asthma Without Complication Anxiety and Depression Current Outpatient Medications Medication Sig montelukast (SINGULAIR) 10 mg tablet Take 1 tablet by mouth daily at bedtime. tamsulosin (FLOMAX) 0.4 mg Take 1 capsule by mouth once daily. spironolactone (ALDACTONE) 25 mg tablet Take 1 tablet by mouth once daily. gabapentin (NEURONTIN) 300 mg capsule Take 2 capsules by mouth three times daily AND 3 capsules daily at bedtime. Do all this for 90 days. nitroglycerin sublingual (NITROSTAT) 0.4 mg SL tablet Dissolve 1 tablet under the tongue every 5 minutes as needed. VP BIOLOGY THYROID 60 mg Take 1 tablet by mouth once daily. Lancets lancets Test blood sugar(s) 100 times daily. Dx: Type 2 DM - Uncontrolled E11.65 Insulin: No blood sugar diagnostic (BLOOD GLUCOSE TEST) test strip Test blood sugar(s) 1 times daily. Dx: Type 2 DM - Uncontrolled E11.65 Insulin: No rosuvastatin (CRESTOR) 10 mg tablet Take 1 tablet by mouth daily at bedtime. potassium chloride ER (K-DUR, KLOR-CON) 20 mEq tablet Take 1 tablet by mouth once daily. diphenhydrAMINE (BENADRYL) 25 mg capsule Take 25 mg by mouth every 4 hours as needed. multivitamin/iron/folic acid (CENTRUM WOMEN ORAL) Take by mouth once daily. buprenorphine (BUTRANS) 5 mcg/hour Apply 1 Patch as directed one time a week. Per Dr. Carter HYDROcodone-acetaminophen (NORCO) 5-325 mg per tablet Take 1 tablet by mouth twice daily. furosemide (LASIX) 40 mg tablet Take 1 tablet by mouth twice daily. Omeprazole Magnesium 20 mg tablet Take 20 mg by mouth once daily. dimenhyDRINATE (DRAMAMINE) 50 mg tablet Take 50 mg by mouth at bedtime as needed (nausea). guaiFENesin (MUCINEX) 600 mg 12 hr tablet Take 1,200 mg by mouth twice daily. Vpkqjpf-Wikfqxupxouqh-Tyskoyzb (EXCEDRIN MIGRAINE) 250-250-65 mg per tablet Take 1 tablet by mouth every 6 hours as needed for pain. aspirin, enteric coated (ASPIRIN, ENTERIC COATED) 81 mg EC tablet Take 1 tablet by mouth once daily. ascorbic acid, vitamin C, (VITAMIN C) 500 mg tablet Take 1 tablet by mouth once daily. selenium 200 mcg tablet Take 1 tablet by mouth once daily. verapamil SR (CALAN SR) 120 mg CR tablet Take 1 tablet by mouth every morning. verapamil (CALAN, ISOPTIN) 120 mg tablet Take 0.5 tablets by mouth every evening. traZODone (DESYREL) 150 mg tablet Take 2 tablets by mouth daily at bedtime. [facility]. methylphenidate (RITALIN) 20 mg tablet 20 mg in AM. 10 mg in PM. Per [facility]. cyclobenzaprine (FLEXERIL) 10 mg tablet Take 1 tablet by mouth twice daily. From [facility]. Current Facility-Administered Medications Medication Dose Route Frequency perflutren lipid microspheres 1.3 mL in NaCl (PF) 0.9% 10 mL injection (DEFINITY) INTRAVENOUS DIRECTED PRN sodium chloride 0.9 % (flush) 10 mL (BD POSIFLUSH) 10 mL INTRAVENOUS DIRECTED PRN Objective BP 120/74 (BP Site: Left Arm, BP Position: Sitting, BP Cuff Size: Large Adult) Pulse 104 Temp 36.3 C (97.4 F) (Temporal) Resp 12 Wt 72.1 kg (159 lb) BMI 28.17 kg/m Physical Exam Constitutional: General: She is not in acute distress. Appearance: She is not ill-appearing. HENT: Head: Atraumatic. Nose: Right Nostril: No epistaxis. Left Nostril: No epistaxis. Right Sinus: No maxillary sinus tenderness or frontal sinus tenderness. Left Sinus: No maxillary sinus tenderness or frontal sinus tenderness. Comments: Superficial erosions, no active bleeding. Mouth/Throat: Mouth: Mucous membranes are moist. Pharynx: Oropharynx is clear. Eyes: Extraocular Movements: Extraocular movements intact. Conjunctiva/sclera: Conjunctivae normal. Cardiovascular: Rate and Rhythm: Regular rhythm. Tachycardia present. Heart sounds: No murmur heard. No gallop. Pulmonary: Effort: No respiratory distress. Breath sounds: Normal breath sounds. No wheezing or rales. Neurological: General: No focal deficit present. Mental Status: She is alert. Gait: Gait normal. Assessment and Plan 1. Epistaxis - ICD9: 784.7, ICD10: R04.0 (primary diagnosis) Rule out anemia. - CBC - BASIC METABOLIC PNL - CONSULT TO ENT 2. Cervical radiculopathy - ICD9: 723.4, ICD10: M54.12 Gabapentin not due for refill. She will change pharmacies next month due to plan change. 3. Lumbar radiculopathy - ICD9: 724.4, ICD10: M54.16 See above. 4. Acute nonintractable headache, unspecified headache type - ICD9: 784.0, ICD10: R51.9 Symptom care. 5. PAF (paroxysmal atrial fibrillation) (HCC) - ICD9: 427.31, ICD10: I48.0 Refilled. - VERAPAMIL ER (SR) 120 MG TABLET,EXTENDED RELEASE. Take one(1) tablet daily in the morning. - VERAPAMIL 120 MG TABLET. Take 1/2 tablet in the evening. Dajuan Roach MD documented in this encounter [facility] 05-13-2022 Miscellaneous Notes GUNNAR: 04/06/2022 Last refill: 10/05/2021 QTY: 30 Refills: 5 Patient's request for medication is as follows: Requested Prescriptions Pending Prescriptions Disp Refills montelukast (SINGULAIR) 10 mg tablet 30 tablet 5 Sig: Take 1 tablet by mouth daily at bedtime. Please approve the above prescription(s) to electronically send to pharmacy. Clive Johnson Ma documented in this encounter [facility] 04-06-2022 History of Present illness Narrative This note was created using Wannyi. Subjective Abimael Nielsen is a 71 year old female. She was monitoring her glucose which was more or less stable. She stopped Jardiance due to cost. She was taking Verapamil SR 120 mg one and one half tablet daily reportedly per cardiology PATROL OFFICER. Her hypertension was controlled. Her asthma was stable and she needed immunizations updated. I convinced her her BMD is better done here, as well as her spirometry. [facility] and was tried on Ritalin. This is being weaned now. Review of Systems Constitutional: Negative. Respiratory: Negative. Cardiovascular: Negative. Gastrointestinal: Negative. Neurological: Negative. ACTIVE PROBLEM LIST Type 2 Diabetes Mellitus With Diabetic Neuropathy, Without Long-Term Current Use of Insulin ([facility]) Lumbar Radiculopathy Cervical Radiculopathy Dizziness, Nonspecific Falls Frequently Hypothyroidism Paf (Paroxysmal Atrial Fibrillation) ([facility]) Mixed Hyperlipidemia Chronic Diastolic Chf (Congestive Heart Failure) ([facility]) Mild Intermittent Asthma Without Complication Anxiety and Depression Current Outpatient Medications Medication Sig tamsulosin (FLOMAX) 0.4 mg Take 1 capsule by mouth once daily. spironolactone (ALDACTONE) 25 mg tablet Take 1 tablet by mouth once daily. gabapentin (NEURONTIN) 300 mg capsule Take 2 capsules by mouth three times daily AND 3 capsules daily at bedtime. Do all this for 90 days. nitroglycerin sublingual (NITROSTAT) 0.4 mg SL tablet Dissolve 1 tablet under the tongue every 5 minutes as needed. VP BIOLOGY THYROID 60 mg Take 1 tablet by mouth once daily. empagliflozin (JARDIANCE) 10 mg tablet Take 1 tablet by mouth once daily. Take 1 tablet once daily in the morning Lancets lancets Test blood sugar(s) 100 times daily. Dx: Type 2 DM - Uncontrolled E11.65 Insulin: No blood sugar diagnostic (BLOOD GLUCOSE TEST) test strip Test blood sugar(s) 1 times daily. Dx: Type 2 DM - Uncontrolled E11.65 Insulin: No rosuvastatin (CRESTOR) 10 mg tablet Take 1 tablet by mouth daily at bedtime. potassium chloride ER (K-DUR, KLOR-CON) 20 mEq tablet Take 1 tablet by mouth once daily. montelukast (SINGULAIR) 10 mg tablet Take 1 tablet by mouth daily at bedtime. diphenhydrAMINE (BENADRYL) 25 mg capsule Take 25 mg by mouth every 4 hours as needed. multivitamin/iron/folic acid (CENTRUM WOMEN ORAL) Take by mouth once daily. buprenorphine (BUTRANS) 5 mcg/hour Apply 1 Patch as directed one time a week. Per Dr. Carter HYDROcodone-acetaminophen (NORCO) 5-325 mg per tablet Take 1 tablet by mouth twice daily. cyclobenzaprine (FLEXERIL) 5 mg tablet Take 1 tablet by mouth three times daily as needed. verapamil SR (CALAN SR) 120 mg CR tablet Take 1 tablet by mouth once daily. (Patient taking differently: Take 120 mg by mouth once daily. Patient taking 1 1/2 tablets once daily to equal 180mg. ) furosemide (LASIX) 40 mg tablet Take 1 tablet by mouth twice daily. Omeprazole Magnesium (PRILOSEC OTC) 20 mg tablet Take 20 mg by mouth once daily. dimenhyDRINATE (DRAMAMINE) 50 mg tablet Take 50 mg by mouth at bedtime as needed (nausea). guaiFENesin (MUCUS RELIEF ER) 600 mg 12 hr tablet Take 1,200 mg by mouth twice daily. Hkgqnbs-Dosfteasfhldl-Ojdnhgdt (EXCEDRIN MIGRAINE) 250-250-65 mg per tablet Take 1 tablet by mouth every 6 hours as needed for pain. traZODone (DESYREL) 100 mg tablet Take 150 mg by mouth daily at bedtime. 150-200mg at bedtime diphenoxylate-atropine (LOMOTIL) 2.5-0.025 mg per tablet Take 1 tablet by mouth four times daily as needed for diarrhea for up to 30 days. aspirin, enteric coated (ASPIRIN, ENTERIC COATED) 81 mg EC tablet Take 1 tablet by mouth once daily. ascorbic acid, vitamin C, (VITAMIN C) 500 mg tablet Take 1 tablet by mouth once daily. selenium 200 mcg tablet Take 1 tablet by mouth once daily. L-Methylfolate (L-METHYLFOLATE) 7.5 mg tab Take 1 tablet by mouth once daily. Current Facility-Administered Medications Medication Dose Route Frequency perflutren lipid microspheres 1.3 mL in NaCl (PF) 0.9% 10 mL injection (DEFINITY) INTRAVENOUS DIRECTED PRN sodium chloride 0.9 % (flush) 10 mL (BD POSIFLUSH) 10 mL INTRAVENOUS DIRECTED PRN Objective BP 118/74 Temp 36.7 C (98 F) Resp 14 Ht 160 cm (5' 2.99 ) Wt 69.9 kg (154 lb) BMI 27.29 kg/m Physical Exam Constitutional: General: She is not in acute distress. Appearance: She is not diaphoretic. Cardiovascular: Rate and Rhythm: Normal rate and regular rhythm. Heart sounds: No murmur heard. No gallop. Pulmonary: Breath sounds: Normal breath sounds. No wheezing or rales. Abdominal: Palpations: Abdomen is soft. Tenderness: There is no abdominal tenderness. Musculoskeletal: Right lower leg: No edema. Left lower leg: No edema. Neurological: General: No focal deficit present. Mental Status: She is alert. Psychiatric: Attention and Perception: Attention normal. Mood and Affect: Mood is anxious. Speech: Speech is tangential. Behavior: Behavior normal. Cognition and Memory: Cognition is impaired. Assessment and Plan 1. Type 2 diabetes mellitus with diabetic neuropathy, without long-term current use of insulin ([facility]) - ICD9: 250.60, 357.2, ICD10: E11.40 (primary diagnosis) Controlled. - HEMOGLOBIN A1C (POC) - BASIC METABOLIC PNL - HGB A1C 2. PAF (paroxysmal atrial fibrillation) ([facility]) - ICD9: 427.31, ICD10: I48.0 Medication list updated as patient is taking. - VERAPAMIL ER (SR) 120 MG TABLET,EXTENDED RELEASE - CBC 3. Chronic diastolic CHF (congestive heart failure) ([facility]) - ICD9: 428.32, 428.0, ICD10: I50.32 Stable. Follow up with cardiology. 4. Mild intermittent asthma without complication - ICD9: 493.90, ICD10: J45.20 Mild intermittent Asthma stable - SPIROMETRY - BASELINE AND POST DILATOR - LUNG VOLUMES 5. Need for influenza vaccination - ICD9: V04.81, ICD10: Z23 - INFLUENZA SEASONAL QUADRIVALENT HIGH DOSE AGE 65+ 6. Need for vaccination - ICD9: V05.9, ICD10: Z23 - INFLUENZA SEASONAL QUADRIVALENT HIGH DOSE AGE 65+ - PNEUMOCOCCAL VACCINE (PREVNAR 20) 7. Hypothyroidism, unspecified type - ICD9: 244.9, ICD10: E03.9 - TSH BLD 8. Anxiety and depression - ICD9: 300.00, 311, ICD10: F41.9, F32.A [facility]. Dajuan Roach MD documented in this encounter [facility] 04-04-2022 Miscellaneous Notes Pharmacy verified in [facility] Patient has been identified by name and date of : Yes Patient aware RX will be sent to pharmacy. No need to notify patient. Patient phones for refill(s): Requested Prescriptions Pending Prescriptions Disp Refills spironolactone (ALDACTONE) 25 mg tablet 90 tablet 0 Sig: Take 1 tablet by mouth once daily. Date of last office visit : 01/04/2022 Date of next office visit : 04/06/2022 Last 2 Encounter Wt Readings: Date: Wt: 01/04/2022 71.7 kg (158 lb) 10/23/2021 71.2 kg (157 lb) Not applicable Please advise. Beryl Cooper Pss documented in this encounter [facility] 04-04-2022 Miscellaneous Notes Patient has been identified by name and date of : Yes Requested Prescriptions Pending Prescriptions Disp Refills tamsulosin (FLOMAX) 0.4 mg 90 capsule 3 Sig: Take 1 capsule by mouth once daily. RX INSTRUCTIONS: Patient aware RX will be sent to pharmacy. No need to notify patient. Frances Chavez Pss documented in this encounter [facility] 03-25-2022 Miscellaneous Notes Patient has been identified by name and date of : Yes Patient phones for refill(s): Requested Prescriptions Pending Prescriptions Disp Refills gabapentin (NEURONTIN) 300 mg capsule 270 capsule 2 Sig: Take 2 capsules by mouth three times daily AND 3 capsules daily at bedtime. Do all this for 90 days. Date of last office visit in primary care: 01/04/2022 6 month follow-up: 04/06/2022 Last 2 Encounter Wt Readings: Date: Wt: 01/04/2022 71.7 kg (158 lb) 10/23/2021 71.2 kg (157 lb) Previous labs/tests for medication: Not applicable Please advise. Thank you. Bernadette Lora LPN Patient has been identified by name and date of : Yes Last office visit in this department: 01/04/2022 RX INSTRUCTIONS: Patient aware RX will be sent to pharmacy. No need to notify patient. Pt is out of this medication, does not think she has enough for tomorrow. Patient phones requesting refills as follows: Requested Prescriptions Pending Prescriptions Disp Refills gabapentin (NEURONTIN) 300 mg capsule 270 capsule 2 Sig: Take 2 capsules by mouth three times daily AND 3 capsules daily at bedtime. Do all this for 90 days. Please review and advise. Beryl Aragon documented in this encounter [facility] 02-24-2022 Miscellaneous Notes Patient lost the bottle of Nitro in friend's car. Patient has been identified by name and date of : Yes Patient phones for refill(s): Requested Prescriptions Pending Prescriptions Disp Refills nitroglycerin sublingual (NITROSTAT) 0.4 mg SL tablet 25 tablet 2 Sig: Dissolve 1 tablet under the tongue every 5 minutes as needed. Date of last office visit in primary care: 01/04/2022 6 month follow-up: 04/06/2022 Last 2 Encounter Wt Readings: Date: Wt: 01/04/2022 71.7 kg (158 lb) 10/23/2021 71.2 kg (157 lb) Previous labs/tests for medication: Not applicable Please advise. Thank you. Bernadette Lora LPN Patient has been identified by name and date of : Yes Requested Prescriptions Pending Prescriptions Disp Refills nitroglycerin sublingual (NITROSTAT) 0.4 mg SL tablet 25 tablet 2 Sig: Dissolve 1 tablet under the tongue every 5 minutes as needed. RX INSTRUCTIONS: Patient aware RX will be sent to pharmacy. No need to notify patient. Amber M[facility] documented in this encounter [facility] 02-24-2022 Miscellaneous Notes Patient would like Dr. Roach know she can no longer afford JARDIANCE documented in this encounter [facility] 02-17-2022 Miscellaneous Notes Patient has been identified by name and date of : Yes Patient phones for refill(s): Requested Prescriptions Pending Prescriptions Disp Refills empagliflozin (JARDIANCE) 10 mg tablet 30 tablet 1 Sig: Take 1 tablet by mouth once daily. Take 1 tablet once daily in the morning Date of last office visit in primary care: 01/04/2022 6 month follow-up: 04/06/2022 Last 2 Encounter Wt Readings: Date: Wt: 01/04/2022 71.7 kg (158 lb) 10/23/2021 71.2 kg (157 lb) Previous labs/tests for medication: Diabetes: Hemoglobin A1C (%) Date Value 11/17/2021 7.2 06/29/2021 6.7 04/30/2021 6.9 Please advise. Thank you. Bernadette Lora LPN documented in this encounter [facility] 02-17-2022 Miscellaneous Notes [facility] pharmacy delivered Nitro & test strips to Patient on 01/06/2022. Patient has refills on test strips. Patient has been identified by name and date of : Yes Patient phones for refill(s): Requested Prescriptions Pending Prescriptions Disp Refills VP BIOLOGY THYROID 60 mg 90 tablet 0 Sig: Take 1 tablet by mouth once daily. Date of last office visit in primary care: 01/04/2022 6 month follow-up: 04/06/2022 Last 2 Encounter Wt Readings: Date: Wt: 01/04/2022 71.7 kg (158 lb) 10/23/2021 71.2 kg (157 lb) Previous labs/tests for medication: Thyroid: TSH Date Value 09/07/2021 1.290 mIU/L 06/29/2021 5.190 uU/mL Please advise. Thank you. Bernadette Lora LPN documented in this encounter [facility] 01-06-2022 Miscellaneous Notes Pt scheduled future appt in hopes to get moved up sooner. She said she sometimes feels as though her BP and heart rate go up and down a lot. She is fatigued a lot just getting out to an appt. She wants to be sure Darrius Alfonso was aware of how she has been feeling. documented in this encounter [facility] 01-04-2022 Instructions Kayce Jules APRN.GLO - 01/04/2022 11:40 AM EDT Recombinant shingles vaccine (Shingrix) is recommended; 2 doses 2-6 months apart. Please read information, check with your insurance, and schedule vaccination at your local pharmacy. A prescription is not required. If you are certain you have coverage to receive this vaccine in the office, we can schedule this for you. documented in this encounter [facility] 01-04-2022 History of Present illness Narrative CC: Patient presents with: Recheck: routine follow up HPI Abimael Nielsen is a 71 year old female who presents today for above. Diabetes: worsening control. She is not on diabetic medications. Previously took Metformin but made her very ill. Home blood sugar readings: patient does not have meter to check Reports increased thirst, urinary frequency, increased hunger and chronic numbness/tingling pain in BLE. Denies nocturia, fatigue, unintentional weight loss, blurred vision, ulcers or sores on feet Last Ophthalmology exam was within the past 12 months Patient's last HgA1C was Hemoglobin A1C (%) Date Value 11/17/2021 7.2 06/29/2021 6.7 04/30/2021 6.9 REVIEW OF SYSTEMS See HPI PAST MEDICAL HISTORY Diagnosis Date ADD (attention deficit disorder) Anxiety and depression Atrial fibrillation (HCC) 08/30 Cellulitis of lower extremity 2019 Chronic fatigue syndrome Dizziness, nonspecific 09/07/2021 Falls frequently 09/07/2021 Fibromyalgia Folic acid deficiency GERD (gastroesophageal reflux disease) Hypothyroidism Insomnia Intractable back pain Mild intermittent asthma without complication 10/05/2021 Osteopenia Type 2 diabetes mellitus without complication, without long-term current use of insulin (HCC) 04/21/2021 PAST SURGICAL HISTORY Procedure Laterality Date APPENDECTOMY 1973 COLONOSCOPY SCREENING 08/2020, 08/2020 EXTRACTION ERUPTED TOOTH/EXR 1973 HYSTERECTOMY HX 1989 Endometriosis. Adenomyosis. Total hysterectomy, BSO LAPAROSCOPIC CHOLECYSTECTOMY 1998 LIGATE FALLOPIAN TUBE Bilateral 1989 SHOULDER SURGERY HX Right 1984 right shoulder X 3. 1978,1980,1983 TONSILLECTOMY HX 1972 ALLERGIES Sulfa (Sulfonamide Antibiotics) MEDICATIONS spironolactone (ALDACTONE) 25 mg tablet Take 1 tablet by mouth once daily. tamsulosin (FLOMAX) 0.4 mg Take 1 capsule by mouth once daily. gabapentin (NEURONTIN) 300 mg capsule Take 2 capsules by mouth three times daily AND 3 capsules daily at bedtime. Do all this for 90 days. rosuvastatin (CRESTOR) 10 mg tablet Take 1 tablet by mouth daily at bedtime. potassium chloride ER (K-DUR, KLOR-CON) 20 mEq tablet Take 1 tablet by mouth once daily. montelukast (SINGULAIR) 10 mg tablet Take 1 tablet by mouth daily at bedtime. VP BIOLOGY THYROID 60 mg Take 1 tablet by mouth once daily. diphenhydrAMINE (BENADRYL) 25 mg capsule Take 25 mg by mouth every 4 hours as needed. multivitamin/iron/folic acid (CENTRUM WOMEN ORAL) Take by mouth once daily. buprenorphine (BUTRANS) 5 mcg/hour Apply 1 Patch as directed one time a week. Per Dr. Carter HYDROcodone-acetaminophen (NORCO) 5-325 mg per tablet Take 1 tablet by mouth twice daily. nitroglycerin sublingual (NITROSTAT) 0.4 mg SL tablet Dissolve 0.4 mg under the tongue every 5 minutes as needed. cyclobenzaprine (FLEXERIL) 5 mg tablet Take 1 tablet by mouth three times daily as needed. verapamil SR (CALAN SR) 120 mg CR tablet Take 1 tablet by mouth once daily. furosemide (LASIX) 40 mg tablet Take 1 tablet by mouth twice daily. Omeprazole Magnesium (PRILOSEC OTC) 20 mg tablet Take 20 mg by mouth once daily. dimenhyDRINATE (DRAMAMINE) 50 mg tablet Take 50 mg by mouth at bedtime as needed (nausea). guaiFENesin (MUCUS RELIEF ER) 600 mg 12 hr tablet Take 1,200 mg by mouth twice daily. Jktgutc-Bsbtzaitaknyk-Qxzarnge (EXCEDRIN MIGRAINE) 250-250-65 mg per tablet Take 1 tablet by mouth every 6 hours as needed for pain. traZODone (DESYREL) 100 mg tablet Take 150 mg by mouth daily at bedtime. 150-200mg at bedtime aspirin, enteric coated (ASPIRIN, ENTERIC COATED) 81 mg EC tablet Take 1 tablet by mouth once daily. ascorbic acid, vitamin C, (VITAMIN C) 500 mg tablet Take 1 tablet by mouth once daily. selenium 200 mcg tablet Take 1 tablet by mouth once daily. L-Methylfolate (L-METHYLFOLATE) 7.5 mg tab Take 1 tablet by mouth once daily. Cholecalciferol, Vitamin D3, 125 mcg (5,000 unit) cap Take 1 capsule by mouth once daily. albuterol HFA (VENTOLIN HFA) 90 mcg/actuation inhaler Inhale 2 Puffs as instructed every 6 hours as needed for wheezing/shortness of breath. diphenoxylate-atropine (LOMOTIL) 2.5-0.025 mg per tablet Take 1 tablet by mouth four times daily as needed for diarrhea for up to 30 days. FAMILY HISTORY Problem Relation Age of Onset Depression Mother Depression Father Anxiety disorder Father Social History Tobacco Use Smoking status: Former Smoker Packs/day: 2.00 Years: 12.00 Pack years: 24.00 Types: Cigarettes Start date: 1977 Quit date: 12/10/1988 Years since quittin.0 Smokeless tobacco: Never Used Tobacco comment: from age 27 Substance Use Topics Alcohol use: Not Currently Comment: none since 1995 Drug use: Not Currently Types: Marijuana Comment: none since 1969 PHYSICAL EXAM BP 116/74 Pulse 88 Resp 16 Ht 160.7 cm (5' 3.25 ) Wt 71.7 kg (158 lb) BMI 27.77 kg/m General Appearance: well appearing, in no acute distress, alert Lungs: Lungs clear to auscultation. No wheezing, rhonchi, rales. Heart: RRR without murmur, gallop, or rubs. No ectopy Health maintenance reviewed with patient: SPIROMETRY Never done PNEUMOCOCCAL: 65+(2 - PCV) due on 05/17/2001 SHINGRIX VACCINE(1 of 2) Never done BONE DENSITY Never done ADVANCE DIRECTIVE DISCUSSION Never done COVID-19 VACCINE(2 - Moderna series) due on 01/04/2023 INFLUENZA(1) due on 02/10/2022 HBA1C due on 05/19/2022 DEPRESSION SCREENING due on 07/14/2022 DIABETIC FOOT EXAM due on 09/07/2022 MAMMOGRAM due on 09/29/2022 COLORECTAL CANCER SCREENING due on 10/18/2022 DILATED RETINAL EXAM due on 10/19/2022 ANNUAL PCP TEAM CHRONIC DISEASE VISIT due on 10/23/2022 URINE ALBUMIN:CREATININE RATIO due on 11/17/2022 LDL CHOLESTEROL due on 11/17/2022 DTAP,TDAP,TD(2 - Td or Tdap) due on 10/14/2031 HEPATITIS C SCREENING Completed DATA REVIEWED: Most recent labs ASSESSMENT/PLAN: 1. Type 2 diabetes mellitus with diabetic neuropathy, without long-term current use of insulin (HCC) - ICD9: 250.60, 357.2, ICD10: E11.40 (primary diagnosis) worsening control - Begin Jardiance 10 mg daily. Shared Medical Decision Making was done: Benefits: Medication may help diabetes in the short term and CKD in the care home. Risks: Possible side effects were discussed including fungal infection and UTI. Possible interactions: n/a. Warnings: lower limb amputations. Approved use or off label use: n/a. Options: n/a. Cost: high, may be prohibitive. Prior approval may be needed. Duration: terminal carman. - Blood glucose monitoring on a once a day schedule - Follow up in 3 months as scheduled, sooner should any other issues arise. - Discussed diabetic education issues of care home diabetic complications, hypoglycemic symptoms, hyperglycemic symptoms, diet and medications- side effects and need for compliance with patient. 2. Screening for osteoporosis - ICD9: V82.81, ICD10: Z13.820 - DXA-AXIAL SKELETON 3. Asymptomatic menopause - ICD9: V49.81, ICD10: Z78.0 - DXA-AXIAL SKELETON Prescription instructions reviewed with patient as applicable. Potential red flag symptoms discussed with the patient. Reviewed appropriate action plan to take if red flag symptoms occur. Patient agreeable to treatment plan. Kayce Jules APRN.CNP documented in this encounter [facility] 12-28-2021 Miscellaneous Notes GUNNAR: 10/23/2021 flomax Last refill: 09/29/2021 QTY: 90 Refills: 0 aldactone Last refill: 09/29/2021 QTY: 90 Refills: 0 documented in this encounter [facility] 12-15-2021 Miscellaneous Notes Spoke with patient who informed me that she had not been experiencing rectal bleeding. I informed her that there was also a consultation to speak with a dry talc racker in her chart. The patient stated that she would prefer to speak with them instead of general surgery at this time. I informed her that [facility] no longer has gastro providers in the facility. The patient stated that she prefers to stay in [place] as she has to take public transportation. I informed her that I would send the referral over to [facility]. The patient agreed and thanked me. Referral sent to [facility] Patient is needing consult for rectal bleeding . Patient is not appropriate for open access. Please schedule office consult Asim Phan documented in this encounter [facility] 11-18-2021 Miscellaneous Notes Pt. notified of test results as per doctors interpretation. Pt having stress test on 11/24 at [facility]. Await results. Anne Jones ----- Message from Darrius Alfonso APRN.PATROL OFFICER sent at 11/18/2021 8:03 AM EDT ----- Please call patient and notify them of results. Cholesterol with much better control LDL (bad cholesterol) 91 (previously 175). Kidney function, electrolytes and liver function are stable. Thank you! documented in this encounter [facility] 11-18-2021 Miscellaneous Notes Please call patient and notify them of results. Cholesterol with much better control LDL (bad cholesterol) 91 (previously 175). Kidney function, electrolytes and liver function are stable. Thank you! documented in this encounter [facility] 10-28-2021 Miscellaneous Notes Images from the original note were not included. Iman Mendoza APRN.PATROL OFFICER You 42 minutes ago (12:30 PM) Patient had less that 1% burden of A. Fib on her recent monitor results. Stress Echo ordered due to ongoing shortness of breath and fatigue for further ischemic and heart failure evaluation. Thanks, Iman Mendoza APRN.PATROL OFFICER Message text Called and gave Jaylin message, states that they will keep order as is and nurses will assess as test is done and notify of updates. Ondina Matta LPN Dana called to clarify diagnosis for stress echo. They are unable to do test with chronic a-fib but needs nuclear instead if chronic a-fib. Please advise. Ondina Matta LPN documented in this encounter [facility] 10-18-2021 Miscellaneous Notes ASSESSMENT/PLAN: 1. Screening for colon cancer - ICD9: V76.51, ICD10: Z12.11 - FECAL OCCULT BLOOD TEST Dajuan Roach MD Patient dropped off iFobt sample, order pending. Bernadette Lora LPN documented in this encounter [facility] 10-18-2021 History of Present illness Narrative This note was created using NoteWriter. Subjective Abimael Nielsen is a 71 year old female. HPI Patient presents with multiple complaints. First she would like her sutures located on her right lower leg. On October she was seen at [facility] and had sutures placed. She just 1 to make sure it was not getting infected. No increased pain or redness. No significant drainage. Patient also would like checked for UTI. She states sometimes she gets cramping pains in her lower abdomen and wanted to make sure she did not have an infection. No frequency or urgency. She states she feels like maybe when her bladder is full she gets this pain. No blood in urine. No increased back pain. She also would like her left hand looked at. She states she had hit the hand when she was trying to put a air mattress away. She did mention at the ER but did not get an x-ray at that time. Review of Systems HENT: Negative. Gastrointestinal: Negative. Genitourinary: Positive for pelvic pain. Negative for dysuria, frequency, hematuria and urgency. Musculoskeletal: Left hand pain Skin: Suture check right lower leg All other systems reviewed and are negative. PAST MEDICAL HISTORY Diagnosis Date ADD (attention deficit disorder) Anxiety and depression Atrial fibrillation ([facility] [facility] 08/30 Cellulitis of lower extremity 2019 Chronic fatigue syndrome Dizziness, nonspecific 09/07/2021 Falls frequently 09/07/2021 Fibromyalgia Folic acid deficiency GERD (gastroesophageal reflux disease) Hypothyroidism Insomnia Intractable back pain Mild intermittent asthma without complication 10/05/2021 Osteopenia Type 2 diabetes mellitus without complication, without long-term current use of insulin ([facility]) 04/21/2021 Current Outpatient Medications Medication Sig Dispense Refill montelukast (SINGULAIR) 10 mg tablet Take 1 tablet by mouth daily at bedtime. 30 tablet 5 VP BIOLOGY THYROID 60 mg Take 1 tablet by mouth once daily. 90 tablet 0 spironolactone (ALDACTONE) 25 mg tablet Take 1 tablet by mouth once daily. 90 tablet 0 tamsulosin (FLOMAX) 0.4 mg Take 1 capsule by mouth once daily. 90 capsule 0 albuterol HFA (VENTOLIN HFA) 90 mcg/actuation inhaler Inhale 2 Puffs as instructed every 6 hours as needed for wheezing/shortness of breath. 1 Each 2 diphenhydrAMINE (BENADRYL) 25 mg capsule Take 25 mg by mouth every 4 hours as needed. multivitamin/iron/folic acid (CENTRUM WOMEN ORAL) Take by mouth once daily. buprenorphine (BUTRANS) 5 mcg/hour Apply 1 Patch as directed one time a week. Per Dr. Crater atorvastatin (LIPITOR) 20 mg tablet Take 1 tablet by mouth once daily. 90 tablet 3 HYDROcodone-acetaminophen (NORCO) 5-325 mg per tablet Take 1 tablet by mouth twice daily. nitroglycerin sublingual (NITROSTAT) 0.4 mg SL tablet Dissolve 0.4 mg under the tongue every 5 minutes as needed. gabapentin (NEURONTIN) 300 mg capsule Take 2 capsules by mouth three times daily AND 3 capsules daily at bedtime. Do all this for 90 days. 270 capsule 2 cyclobenzaprine (FLEXERIL) 5 mg tablet Take 1 tablet by mouth three times daily as needed. 90 tablet 0 potassium chloride ER (K-DUR, KLOR-CON) 20 mEq tablet Take 1 tablet by mouth once daily. 90 tablet 0 verapamil SR (CALAN SR) 120 mg CR tablet Take 1 tablet by mouth once daily. (Patient taking differently: Take 120 mg by mouth once daily. Patient taking 1 1/2 tablets once daily to equal 180mg. ) 90 tablet 3 furosemide (LASIX) 40 mg tablet Take 1 tablet by mouth twice daily. 180 tablet 3 Omeprazole Magnesium (PRILOSEC OTC) 20 mg tablet Take 20 mg by mouth once daily. dimenhyDRINATE (DRAMAMINE) 50 mg tablet Take 50 mg by mouth at bedtime as needed (nausea). guaiFENesin (MUCUS RELIEF ER) 600 mg 12 hr tablet Take 1,200 mg by mouth twice daily. Wezxkdn-Jfkrsgpwsvide-Xmnowflg (EXCEDRIN MIGRAINE) 250-250-65 mg per tablet Take 1 tablet by mouth every 6 hours as needed for pain. traZODone (DESYREL) 100 mg tablet Take 150 mg by mouth daily at bedtime. 150-200mg at bedtime aspirin, enteric coated (ASPIRIN, ENTERIC COATED) 81 mg EC tablet Take 1 tablet by mouth once daily. ascorbic acid, vitamin C, (VITAMIN C) 500 mg tablet Take 1 tablet by mouth once daily. selenium 200 mcg tablet Take 1 tablet by mouth once daily. L-Methylfolate (L-METHYLFOLATE) 7.5 mg tab Take 1 tablet by mouth once daily. diphenoxylate-atropine (LOMOTIL) 2.5-0.025 mg per tablet Take 1 tablet by mouth four times daily as needed for diarrhea for up to 30 days. Cholecalciferol, Vitamin D3, 125 mcg (5,000 unit) cap Take 1 capsule by mouth once daily. (Patient not taking: Reported on 10/07/2021 ) Current Facility-Administered Medications Medication Dose Route Frequency Provider Last Rate Last Admin perflutren lipid microspheres 1.3 mL in NaCl (PF) 0.9% 10 mL injection (DEFINITY) INTRAVENOUS DIRECTED PRN Darrius Alfonso APRN.CNP sodium chloride 0.9 % (flush) 10 mL (BD POSIFLUSH) 10 mL INTRAVENOUS DIRECTED PRN Darrius Alfonso APRN.CNP PAST SURGICAL HISTORY Procedure Laterality Date APPENDECTOMY 1973 COLONOSCOPY SCREENING 08/2020, 08/2020 EXTRACTION ERUPTED TOOTH/EXR 1973 HYSTERECTOMY HX 1989 Endometriosis. Adenomyosis. Total hysterectomy, BSO LAPAROSCOPIC CHOLECYSTECTOMY 1997 LIGATE FALLOPIAN TUBE Bilateral 1988 SHOULDER SURGERY HX Right 1983 right shoulder X 3. 1978,1980,1983 TONSILLECTOMY HX 1972 FAMILY HISTORY Problem Relation Age of Onset Depression Mother Depression Father Anxiety disorder Father Social History Tobacco Use Smoking status: Former Smoker Packs/day: 2.00 Years: 12.00 Pack years: 24.00 Types: Cigarettes Start date: 1977 Quit date: 12/10/1988 Years since quittin.8 Smokeless tobacco: Never Used Tobacco comment: from age 27 Substance Use Topics Alcohol use: Not Currently Comment: none since 1995 Drug use: Not Currently Types: Marijuana Comment: none since 1969 Objective BP 118/68 Pulse 100 Temp 36.7 C (98.1 F) Resp 21 Wt 72 kg (158 lb 12.8 oz) SpO2 98% BMI 27.26 kg/m Physical Exam Vitals reviewed. Constitutional: Appearance: Normal appearance. HENT: Head: Normocephalic and atraumatic. Cardiovascular: Rate and Rhythm: Normal rate and regular rhythm. Heart sounds: Normal heart sounds. Pulmonary: Effort: Pulmonary effort is normal. Breath sounds: Normal breath sounds. Abdominal: Comments: Mild suprapubic tenderness on palpation, no guarding or rebound. Musculoskeletal: Cervical back: Neck supple. Comments: Exam of the left hand reveals tenderness to palpation to the third MCP with pain on flexion and extension of the third digit. Normal strength and sensation against resistance on flexion extension. Cap refill brisk less than 2 seconds. No other tenderness of the hand. Skin: General: Skin is warm and dry. Comments: Exam of the right lower leg reveals a 2 and half centimeter healing laceration with sutures present in the anterior mid samuels. No sign of infection. No redness or swelling. No drainage. Appears clean. Neurological: General: No focal deficit present. Mental Status: She is alert and oriented to person, place, and time. Assessment and Plan ASSESSMENT/PLAN: ASSESSMENT/PLAN: 1. Pelvic cramping - ICD9: 625.9, ICD10: R10.2 (primary diagnosis) -Urine dip negative. Discussed follow-up with PCP if not improving. Red flags for ER discussed. Patient agreeable. - UA DIP, URINE (POC) 2. Hand injury, left, initial encounter - ICD9: 959.4, ICD10: S69.92XA X-rays negative for fracture. Likely contusion. Rest, ice, Tylenol for pain. Follow-up if not improving. Patient agreeable. - XR HAND GENERAL 3V PA/LAT/OBL LEFT 3. Visit for wound check - ICD9: V58.89, ICD10: Z51.89 Sutures appear to be in place and wound does not appear infected. Discussed keeping the sutures in 5-7 more days. She will return to have them removed. Maci Alegria PA-C documented in this encounter [facility] 10-12-2021 Miscellaneous Notes Orders for Vestibular therapy F[facility]ed to [facility] [place] patient request. Patient update via [employer]. Honey Smith LPN documented in this encounter [facility] 10-07-2021 History of Present illness Narrative Images from the original note were not included. [facility] [place] New Patient visit New Patient Consultation October 07, 2021 HPI: Ms. Nielsen presents today secondary to issues of dizziness. She states that dizziness began around 2019. Describes this is as the bed spinning such as when drinking too much. Sometimes will feel like she is on a boat moving up and down. Other times will feel like it just rushes over her and will have to hold onto something. Occasional lightheadedness. Unsure which direction the room spins. Can last for a few seconds to a half an hour. Will have to sit down or lay down. Occurs once to multiple times per day. States it depends on how tired she is as well. No known trigger and can happen at any time. Not specifically when rolling over. Has to make slow position changes. Turning head right or left does not cause worsening of symptoms. No dizziness with watching tv or watching images move. Used to use a walker with a seat to help with stability. This broke when moving to [place] from [place] and no longer uses. No workup for dizziness thus far. Hx of chronic neck pain. Upper and lower scoliosis; states she has lost 2 inches in height since 2019. Has not passed out during an event except for once in early 2020. Hx of vertigo when younger. States when she would have her menstrual cycle the pain would be so severe that she would have a syncopal episode. Also with hx of anemia at that time. Had total hysterectomy and anemia improved. Reports hearing loss and pain/pressure in her ears. Has constant tinnitus. Denies pulsatile tinnitus. States this started in the 70's. Has gotten worse over time. Hx of four concussions. First two with LOC around age 17. Most recent concussion was 2019 when she hit her head on a table. She did go to [facility] ED. Had dizziness for a few weeks following concussion. Denies COVID or other infection at onset of dizziness. Has had two falls in the past two weeks due to the dizziness. States she got up quickly. Sometimes feels lightheaded but not all the time. Notes weakness to the left arm and leg. Reports difficulty with speech; states she will forget what she is talking about. Did have a period of time where she states she was unable to talk. Will sometimes have difficulty with recall. Hx of jaw spasms during time of stress. Would have stuttering when her jaw would spasm. Currently taking gabapentin 600mg in AM, afternoon, and evening, and 900 at bedtime. Without medication states nerves are bad and would have vomiting. Has been taking since 1995. Reports hx of tension migraine headaches. Dx in 1991. Still gets migraines; not often and occur maybe once per month. Will take 2 Excedrin and a dramamine to resolve headaches. Hx of afib; dx in 2019. Taking 325mg ASA. No other anticoags d/t hx of GI bleed. Alcohol: Quit in 1995 Tobacco: Quit in 1988 Drug: Denies PAST MEDICAL HISTORY Diagnosis Date ADD (attention deficit disorder) Anxiety and depression Atrial fibrillation (HCC) 08/30 Cellulitis of lower extremity 2019 Chronic fatigue syndrome Dizziness, nonspecific 09/07/2021 Falls frequently 09/07/2021 Fibromyalgia Folic acid deficiency GERD (gastroesophageal reflux disease) Hypothyroidism Insomnia Intractable back pain Osteopenia Type 2 diabetes mellitus without complication, without long-term current use of insulin ([facility]) 04/21/2021 PAST SURGICAL HISTORY Procedure Laterality Date APPENDECTOMY 1973 COLONOSCOPY SCREENING 08/2020, 08/2020 EXTRACTION ERUPTED TOOTH/EXR 1973 HYSTERECTOMY HX 1989 Endometriosis. Adenomyosis. Total hysterectomy, BSO LAPAROSCOPIC CHOLECYSTECTOMY 1997 LIGATE FALLOPIAN TUBE Bilateral 1988 SHOULDER SURGERY HX Right 1984 right shoulder X 3. 1978,1980,1983 TONSILLECTOMY HX 1972 Current Outpatient Medications on File Prior to Visit Medication Sig albuterol HFA (VENTOLIN HFA) 90 mcg/actuation inhaler Inhale 2 Puffs as instructed every 6 hours as needed for wheezing/shortness of breath. methylphenidate (RITALIN) 20 mg tablet Take 20 mg by mouth once daily. diphenhydrAMINE (BENADRYL) 25 mg capsule Take 25 mg by mouth every 4 hours as needed. multivitamin/iron/folic acid (CENTRUM WOMEN ORAL) Take by mouth once daily. montelukast (SINGULAIR) 10 mg tablet Take 1 tablet by mouth daily at bedtime. buprenorphine (BUTRANS) 5 mcg/hour Apply 1 Patch as directed one time a week. Per Dr. Carter atorvastatin (LIPITOR) 20 mg tablet Take 1 tablet by mouth once daily. omeprazole 20 mg disintegrating tablet (PriLOSEC) Take 20 mg by mouth once daily. (Patient not taking: Reported on 09/27/2021 ) HYDROcodone-acetaminophen (NORCO) 5-325 mg per tablet Take 1 tablet by mouth twice daily. nitroglycerin sublingual (NITROSTAT) 0.4 mg SL tablet Dissolve 0.4 mg under the tongue every 5 minutes as needed. gabapentin (NEURONTIN) 300 mg capsule Take 2 capsules by mouth three times daily AND 3 capsules daily at bedtime. Do all this for 90 days. cyclobenzaprine (FLEXERIL) 5 mg tablet Take 1 tablet by mouth three times daily as needed. tamsulosin (FLOMAX) 0.4 mg Take 1 capsule by mouth once daily. potassium chloride ER (K-DUR, KLOR-CON) 20 mEq tablet Take 1 tablet by mouth once daily. VP BIOLOGY THYROID 60 mg Take 1 tablet by mouth once daily. verapamil SR (CALAN SR) 120 mg CR tablet Take 1 tablet by mouth once daily. furosemide (LASIX) 40 mg tablet Take 1 tablet by mouth twice daily. Omeprazole Magnesium (PRILOSEC OTC) 20 mg tablet Take 20 mg by mouth once daily. dimenhyDRINATE (DRAMAMINE) 50 mg tablet Take 50 mg by mouth at bedtime as needed (nausea). guaiFENesin (MUCUS RELIEF ER) 600 mg 12 hr tablet Take 1,200 mg by mouth twice daily. Enapnyw-Amsdyixtuguxo-Ftmqjpwn (EXCEDRIN MIGRAINE) 250-250-65 mg per tablet Take 1 tablet by mouth every 6 hours as needed for pain. traZODone (DESYREL) 100 mg tablet Take 150 mg by mouth daily at bedtime. 150-200mg at bedtime spironolactone (ALDACTONE) 25 mg tablet Take 1 tablet by mouth once daily. diphenoxylate-atropine (LOMOTIL) 2.5-0.025 mg per tablet Take 1 tablet by mouth four times daily as needed for diarrhea for up to 30 days. aspirin, enteric coated (ASPIRIN, ENTERIC COATED) 81 mg EC tablet Take 1 tablet by mouth once daily. Cholecalciferol, Vitamin D3, 125 mcg (5,000 unit) cap Take 1 capsule by mouth once daily. ascorbic acid, vitamin C, (VITAMIN C) 500 mg tablet Take 1 tablet by mouth once daily. selenium 200 mcg tablet Take 1 tablet by mouth once daily. L-Methylfolate (L-METHYLFOLATE) 7.5 mg tab Take 1 tablet by mouth once daily. Current Facility-Administered Medications on File Prior to Visit Medication perflutren lipid microspheres 1.3 mL in NaCl (PF) 0.9% 10 mL injection (DEFINITY) sodium chloride 0.9 % (flush) 10 mL (BD POSIFLUSH) Social History Tobacco Use Smoking status: Former Smoker Packs/day: 2.00 Years: 12.00 Pack years: 24.00 Types: Cigarettes Start date: 1977 Quit date: 12/10/1988 Years since quittin.8 Smokeless tobacco: Never Used Tobacco comment: from age 27 Substance Use Topics Alcohol use: Not Currently Comment: none since 1995 Drug use: Not Currently Types: Marijuana Comment: none since 1969 ALLERGIES Allergen Reactions Sulfa (Sulfonamide * Anaphylaxis Review of Systems: ENT: + loss of hearing, + vertigo Vision: denies + blurring vison (cataracts), double vision/diplopia Cardiopulmonary: denies + chest pain, palpitations Respiratory: denies shortness of breath Psych: denies + depression, + anxiety, +ADD Musculoskeletal: Denies + weakness, + joint ache/pain Back/spine: + low back or + cervical pains Neuro: denies tremors, loss of feeling, + dizziness, seizure, blackout, + paresthesia, facial paresthesia, facial weakness, + difficulty in speech, slurring of words, dysarthria, dysphagia, + memory concerns, + headache Physical Exam: 10/07/21 0851 BP: 132/82 Pulse: 106 Resp: 18 Temp: 36.7 C (98 F) SpO2: 97% Weight: 71.7 kg (158 lb) Orthostatic VS: Laying 145/84, HR 98 Sitting 131/85, HR 99 Standing 134/85, 106 Patient is alert and in no distress. Dress is appropriate. Mood is appropriate Breathing appears regular and unstressed Neurologic examination: Cognitively intact. No deficits. No formal MMSE performed. CN: Pupils equal and reactive to light, extraocular movements intact with no nystagmus, face is symmetric with no facial droop, facial sensation intact bilaterally to light touch. V1-3, hearing intact bilaterally, symmetric evaluation of the soft palate, tongue is midline with no deviation, shoulder shrug is symmetric. Motor exam shows 5/5 strength symmetric through the upper and lower extremities in all groups tested. Sensory intact to light touch in all extremities. Vibratory sensation is intact and symmetric all extremities. Deep tendon reflexes are symmetric at the biceps, brachioradialis, triceps, patella, and achilles bilaterally. Negative Johnson's bilaterally. Coordination: No dysmetria on finger to nose. No tremors noted. No drift seen. Gait normal in stance and pattern. Tandem with imbalance. Positive Romberg. Difficulty walking on heels and toes. Labs/studies: Outpatient Sill Worker 08/17/21: Patient had a min HR of 49 bpm, max HR of 240 bpm, and avg HR of 81 bpm. Predominant underlying rhythm was Sinus Rhythm. 9 Ventricular Tachycardia runs occurred, the run with the fastest interval lasting 6 beats with a max rate of 240 bpm, the longest lasting 7 beats with an avg rate of 194 bpm. 1 run of Supraventricular Tachycardia occurred lasting 4 beats with a max rate of 130 bpm (avg 118 bpm). Atrial Fibrillation occurred (1% burden), ranging from 100-233 bpm (avg of 168 bpm), the longest lasting 4 hours 35 mins with an avg rate of 168 bpm. Atrial Fibrillation was detected within +/- 45 seconds of symptomatic patient event(s). Isolated SVEs were rare (<1.0%), SVE Couplets were rare (<1.0%), and SVE Triplets were rare (<1.0%). Isolated VEs were rare (<1.0%, 182), VE Couplets were rare (<1.0%, 39), and VE Triplets were rare (<1.0%, 6). MD notification criteria for Rapid Atrial Fibrillation and Ventricular Tachycardia met - multiple notification attempts made and left messages on 08/17/21 ([place]). XR Cervical Spine 04/01/20: Marked reversal of the normal cervical lordosis with opening of the posterior C4-5 disc space which could indicate ligamentous injury. Degenerative disc changes from C4-5 and C6-7. Mild spondylolisthesis of C3 on C4 and C4 on C5. Right C5-6 and C6-7 mild foraminal impingement. Component Latest Ref Rng & Units 06/29/2021 09/07/2021 WBC 3.70 - 11.00 k/uL 10.86 RBC 3.90 - 5.20 m/uL 5.22 (H) Hemoglobin 11.5 - 15.5 g/dL 14.8 Hematocrit 36.0 - 46.0 % 46.9 (H) MCV 80.0 - 100.0 fL 89.8 MCH 26.0 - 34.0 pG 28.4 MCHC 30.5 - 36.0 g/dL 31.6 RDW-CV 11.5 - 15.0 % 13.5 Platelet Count 150 - 400 k/uL 384 MPV 9.0 - 12.7 fL 9.1 Neut% % 74.6 Abs Neut (ANC) 1.45 - 7.50 k/uL 8.11 (H) Lymph% % 16.8 Abs Lymph 1.00 - 4.00 k/uL 1.82 Red Willow% % 7.6 Abs [place]ow <0.87 k/uL 0.82 Eosin% % 0.4 Abs Eosin <0.46 k/uL 0.04 Baso% % 0.6 Abs Baso <0.11 k/uL 0.07 Nucleated Reds 0 /100 WBC 0.0 Absolute nRBC <0.01 k/uL <0.01 Diff Type Auto Diff Protein, Total 6.3 - 8.0 g/dL 7.4 Albumin 3.9 - 4.9 g/dL 4.3 Calcium 8.5 - 10.2 mg/dL 10.2 Bilirubin, Total 0.2 - 1.3 mg/dL <0.2 (L) Alkaline Phosphatase 34 - 123 U/L 96 AST 13 - 35 U/L 28 Glucose 74 - 99 mg/dL 90 BUN 7 - 21 mg/dL 12 Creatinine 0.58 - 0.96 mg/dL 0.94 Sodium 136 - 144 mmol/L 141 Potassium 3.7 - 5.1 mmol/L 3.6 (L) Chloride 97 - 105 mmol/L 101 CO2 22 - 30 mmol/L 29 Anion Gap 9 - 18 mmol/L 11 ALT 7 - 38 U/L 15 eGFR- >60 eGFR-All Other Races . 59 Cholesterol, Total <200 mg/dL 262 (H) Triglyceride <150 mg/dL 123 HDL Cholesterol >39 mg/dL 62 Non HDL Cholesterol <130 mg/dL 200 (H) Fasting Time hrs 15 VLDL Cholesterol <30 mg/dL 25 TC:HDL Ratio <5.10 4.23 LDL Cholesterol <100 mg/dL 175 (H) LDL:HDL Ratio <2.54 2.82 (H) Vitamin D 25 Hydroxy 31.0 - 80.0 ng/mL 61.6 TSH 0.270 - 4.200 mIU/L 1.290 Free T4 0.9 - 1.7 ng/dL 1.2 T3 79 - 165 ng/dL 168 (H) Assessment/Plan: R42 Vertigo (primary encounter diagnosis) M50.30 DDD (degenerative disc disease), cervical R42 Dizziness Comment: Patient presenting today for dizziness since 2019. Dizziness is described as a spinning sensation, sensation of being on a boat, and an occasional lightheaded feeling. Episodes can happen multiple times per day and typically last for anywhere from a few seconds to a half hour. No known triggers and no significant event or illness at time of onset. She also reports left UE and LE weakness and speech disturbance as well as pressure in the ears and constant tinnitus. Notable history of vertigo, migraine, scoliosis, DDD cervical spine, anemia, concussion x4, afib, fibromyalgia, hypothyroidism, DM 2, asthma, anxiety/depression. Exam with finding of imbalance with tandem walking. No focal weakness noted. Orthostatic VS essentially unremarkable. At this time workup will be as follows. - MRI brain WO/W to evaluate for stroke/lesion given recent afib dx at onset of symptoms as well as IAC abnormality given tinnitus, hearing loss, and fullness/pressure in the ears. - XR of cervical spine to evaluate for degree of degenerative changes (since previous imaging completed in 2019) possibly contributing to dizziness. - Vestibular therapy for possible improvement of symptoms. Note, she is currently taking gabapentin 2700mg daily, which can be used to improve vertigo sx, and at this time will not make any changes to medications. Will await above testing/interventions. If unremarkable, or no improvement after completion of vestibular therapy, will consider vestibular battery testing. Office Visit on 10/07/21 MRI BRAIN WO/W IVCON XR CERV OTHER 4V AP/LAT/OBL CONSULT TO VESTIBULAR REHAB PT Emiliana Goldman APRN.PATROL OFFICER I spent a total of 60 minutes on the date of the service which included preparing to see the patient, [id number] patient care, completing clinical documentation, obtaining and/or reviewing separately obtained history, performing a medically appropriate examination, counseling and educating the patient/family/caregiver and ordering medications, tests, or procedures. documented in this encounter [facility] 10-05-2021 History of Present illness Narrative This note was created using NoteWriter. Subjective Abimael Nielsen is a 71 year old female for follow up and 2nd visit with me. She gave a longstanding history of asthma, generally controlled. She needed refills of montelukast. ASTHMA CONTROL TEST Date: 10/05/2021 1. In the last 4 weeks, how much of the time did your asthma keep you from getting as much done at work or home that you wanted to do? A little of the time (4) 2. In the last 4 weeks, how often have you had shortness of breath? Once a day (2) 3. In the last 4 weeks, how often did your asthma symptoms (wheezing, coughing, shortness of breath, chest tightness or pain) wake you up at night or earlier than usual? Not at all (5) 4. In the last 4 weeks, how often have you used your rescue inhaler or nebulizer medication (such as Albuterol, Proventil, Ventolin, Maxair, Xoponex, or Primatene Mist)? 3 or more times per day (1) 5. In the last 4 weeks, how would you rate your asthma control? Well controlled (4) Total: 16-19 Her diabetes mellitus was diet managed and due for a recheck. She was scheduled to see neurology for dizziness and falls. ACTIVE PROBLEM LIST Type 2 Diabetes Mellitus With Diabetic Neuropathy, Without Long-Term Current Use of Insulin ([facility]) Lumbar Radiculopathy Cervical Radiculopathy Dizziness, Nonspecific Falls Frequently Hypothyroidism Paf (Paroxysmal Atrial Fibrillation) ([facility]) Mixed Hyperlipidemia Chronic Diastolic Chf (Congestive Heart Failure) ([facility]) Current Outpatient Medications Medication Sig VP BIOLOGY THYROID 60 mg Take 1 tablet by mouth once daily. spironolactone (ALDACTONE) 25 mg tablet Take 1 tablet by mouth once daily. tamsulosin (FLOMAX) 0.4 mg Take 1 capsule by mouth once daily. albuterol HFA (VENTOLIN HFA) 90 mcg/actuation inhaler Inhale 2 Puffs as instructed every 6 hours as needed for wheezing/shortness of breath. diphenhydrAMINE (BENADRYL) 25 mg capsule Take 25 mg by mouth every 4 hours as needed. multivitamin/iron/folic acid (CENTRUM WOMEN ORAL) Take by mouth once daily. montelukast (SINGULAIR) 10 mg tablet Take 1 tablet by mouth daily at bedtime. buprenorphine (BUTRANS) 5 mcg/hour Apply 1 Patch as directed one time a week. Per Dr. Carter atorvastatin (LIPITOR) 20 mg tablet Take 1 tablet by mouth once daily. HYDROcodone-acetaminophen (NORCO) 5-325 mg per tablet Take 1 tablet by mouth twice daily. nitroglycerin sublingual (NITROSTAT) 0.4 mg SL tablet Dissolve 0.4 mg under the tongue every 5 minutes as needed. gabapentin (NEURONTIN) 300 mg capsule Take 2 capsules by mouth three times daily AND 3 capsules daily at bedtime. Do all this for 90 days. cyclobenzaprine (FLEXERIL) 5 mg tablet Take 1 tablet by mouth three times daily as needed. potassium chloride ER (K-DUR, KLOR-CON) 20 mEq tablet Take 1 tablet by mouth once daily. verapamil SR (CALAN SR) 120 mg CR tablet Take 1 tablet by mouth once daily. (Patient taking differently: Take 120 mg by mouth once daily. Patient taking 1 1/2 tablets once daily to equal 180mg. ) furosemide (LASIX) 40 mg tablet Take 1 tablet by mouth twice daily. Omeprazole Magnesium (PRILOSEC OTC) 20 mg tablet Take 20 mg by mouth once daily. dimenhyDRINATE (DRAMAMINE) 50 mg tablet Take 50 mg by mouth at bedtime as needed (nausea). guaiFENesin (MUCUS RELIEF ER) 600 mg 12 hr tablet Take 1,200 mg by mouth twice daily. Fnuzviy-Wlrenwxartqyn-Ufcgwmkk (EXCEDRIN MIGRAINE) 250-250-65 mg per tablet Take 1 tablet by mouth every 6 hours as needed for pain. traZODone (DESYREL) 100 mg tablet Take 150 mg by mouth daily at bedtime. 150-200mg at bedtime diphenoxylate-atropine (LOMOTIL) 2.5-0.025 mg per tablet Take 1 tablet by mouth four times daily as needed for diarrhea for up to 30 days. aspirin, enteric coated (ASPIRIN, ENTERIC COATED) 81 mg EC tablet Take 1 tablet by mouth once daily. Cholecalciferol, Vitamin D3, 125 mcg (5,000 unit) cap Take 1 capsule by mouth once daily. ascorbic acid, vitamin C, (VITAMIN C) 500 mg tablet Take 1 tablet by mouth once daily. selenium 200 mcg tablet Take 1 tablet by mouth once daily. L-Methylfolate (L-METHYLFOLATE) 7.5 mg tab Take 1 tablet by mouth once daily. methylphenidate (RITALIN) 20 mg tablet Take 20 mg by mouth once daily. (Patient not taking: Reported on 10/05/2021) omeprazole 20 mg disintegrating tablet (PriLOSEC) Take 20 mg by mouth once daily. (Patient not taking: Reported on 09/27/2021 ) Current Facility-Administered Medications Medication Dose Route Frequency perflutren lipid microspheres 1.3 mL in NaCl (PF) 0.9% 10 mL injection (DEFINITY) INTRAVENOUS DIRECTED PRN sodium chloride 0.9 % (flush) 10 mL (BD POSIFLUSH) 10 mL INTRAVENOUS DIRECTED PRN Objective BP 120/74 (BP Site: Left Arm, BP Position: Sitting, BP Cuff Size: Large Adult) Pulse 92 Temp 36.3 C (97.4 F) (Temporal Artery) Resp 12 Wt 72.3 kg (159 lb 6.4 oz) SpO2 96% BMI 27.36 kg/m Physical Exam Constitutional: Appearance: She is not ill-appearing. Cardiovascular: Rate and Rhythm: Normal rate and regular rhythm. Pulmonary: Effort: No respiratory distress. Breath sounds: No wheezing or rales. Musculoskeletal: Right lower leg: No edema. Left lower leg: No edema. Neurological: Mental Status: She is alert. Test results pertinent to today's visit were reviewed and discussed with the patient. Assessment and Plan 1. Encounter for hepatitis C screening test for low risk patient - ICD9: V73.89, ICD10: Z11.59 (primary diagnosis) - HEP C AB IA W/CONF SCRN 2. Mild intermittent asthma without complication - ICD9: 493.90, ICD10: J45.20 PMH, problem list updated. - MONTELUKAST 10 MG TABLET 3. Type 2 diabetes mellitus with diabetic neuropathy, without long-term current use of insulin (HCC) - ICD9: 250.60, 357.2, ICD10: E11.40 Diet controlled. - BASIC METABOLIC PNL - HGB A1C - ALBUMIN/CREAT RATIO RND UR I spent 20 mostly for discussion and care coordination. Dajuan Roach MD documented in this encounter [facility] 09-29-2021 History of Present illness Narrative Radiology Service Progress Note PATIENT NAME: Abimael Nielsen DATE OF SERVICE: September 29, 2021 TIME: 9:51 AM PATIENT IDENTITY VERIFICATION COMPLETED USING TWO (2) IDENTIFIERS: Name and Date of confirmed by patient verbally. FALL SCREENING: Has the patient had 2 falls in the last year or 1 fall with injury or currently using an Ambulatory Assistive Device (Walker, Cane, Wheelchair, Crutches, etc.)? No PATIENT GENDER DATA: Female. status: : No status: NO. PATIENT RELEVANT IMPLANT DATA REVIEWED: Not Applicable RADIOLOGY DEPARTMENT: Mammography PERIPHERAL IV DATA: Not applicable SIGNED BY: RT Henrique(R) September 29, 2021 9:51 AM documented in this encounter [facility] 09-28-2021 Miscellaneous Notes Last appt with pcp 09/07/21. Next is 10/05/21 Patient is aware that there is an active script at [facility] for her spironolactone. She has requested for them to transfer it to [facility], but they haven't. Choco has requested from [facility] as well, but they won't reply to request. Wants a new script sent to [facility] in [place]. Patient has been identified by name and date of : Yes Pending Prescriptions Disp Refills [facility] THYROID 60 MG TABLET 30 tablet 0 Sig: Take 1 tablet by mouth once daily. VENTURA: Yes SPIRONOLACTONE 25 MG TABLET 90 tablet 3 Sig: Take 1 tablet by mouth once daily. VENTURA: No TAMSULOSIN 0.4 MG CAPSULE 30 capsule 0 Sig: Take 1 capsule by mouth once daily. VENTURA: No RX INSTRUCTIONS: Patient aware RX will be sent to pharmacy. No need to notify patient. Camille Avery documented in this encounter [facility] 04-18-2022 Instructions Darrius Alfonso APRN.PATROL OFFICER - 09/27/2021 9:30 AM EDT Heart Disease in Women Is heart disease a problem for women? Heart disease is the leading cause of of [place] women. More women from heart disease than from cancer. A heart attack can happen when there are problems with the blood vessels that bring blood to the heart (the coronary arteries). For example, fatty deposits called plaque may build up in the coronary arteries and make them narrower. The narrowing decreases blood flow to the heart. Plaque also increases the chance that blood clots may form and block a blood vessel, which can cause a heart attack or stroke. In the first year after a heart attack, women have an increased risk of . In the first 6 years after a heart attack, they also have a higher risk of a second heart attack. Women are at high risk often because they are older at the time of the heart attack and have other medical problems. Not everyone has the same symptoms. The most common symptoms of a heart attack include: Chest pain or pressure, squeezing, or fullness in the center of your chest that lasts more than a few minutes, or goes away and comes back (may feel like indigestion or heartburn) Pain or discomfort in one or both arms or shoulders, or in your back, neck, jaw, or stomach Trouble breathing Breaking out in a cold sweat for no known reason Along with these symptoms, you may also feel very tired, faint, or be sick to your stomach. Sometimes you can be having a heart attack and not know it. Many women have chest pain or pressure, but sometimes symptoms in women are different from men s symptoms. Or women may have additional symptoms, such as: Unexplained anxiety and nervousness Swelling of the ankles or lower legs Because they may not feel the typical pain in the left side of their chest, many women may ignore the symptoms of a heart attack. Call 911 for emergency help right away if you have these symptoms. Do not drive yourself to the hospital. Immediate emergency care improves your chances of survival and may help avoid damage to your heart. How can women lower their risk for heart disease? If you have high blood pressure, carefully follow your healthcare provider's instructions for keeping it under control. If you are a smoker, stop smoking. Try to keep a healthy weight. If you are overweight, talk to your provider about ways to lose weight. Eat a healthy diet that includes: ?Avoiding salty foods and not adding salt to food ?Increasing fiber, fruits, and vegetables ?Avoiding foods high in fat, cholesterol, and sugar Exercise according to your healthcare provider's instructions. Get enough rest and learn to use relaxation methods to help reduce stress. Treat and control medical conditions such as diabetes and high cholesterol. If you are taking hormone therapy, you and your healthcare provider should discuss the risks and benefits. Hormone therapy may increase the risk for heart disease or stroke. Talk with your provider about taking aspirin. Low-dose aspirin therapy reduces the risk of stroke for women. But it helps to lower a woman s risk of heart attack and other heart problems only if she is 65 or older. Make sure that your provider knows about any other medicines you are taking. If you decide you need to make changes in the way you live, you probably won't be able to turn your life around all at once. Try to develop healthy habits that incorporate your lifestyle goals. If you do, you will greatly decrease your chances for developing heart disease. You can get more information from: [place] [facility] Ealcrpedntm8-614-JQG-USA-1 ( )www.heart.org Developed by [employer]. Published by [employer]. Copyright 2014 [employer] and/or one of its subsidiaries. All rights reserved. documented in this encounter [facility] 09-27-2021 History of Present illness Narrative Chief Complaint Patient presents with: 6 week follow up heart monitor History of Present Illness: Abimael Nielsen is a 71 year old female who presents for routine follow up. She has a PMhx of chronic a-fib, fibromyalgia, hypothyroid, HTN, HLD. DM. She explains she has been moving her roommate out which has been physical and stressful. She continues to notice on her home pulse ox high and low heart rates. She has increased her dose of verapamil to 180 mg for better heart rate control but feels like she hasn't been taking it long enough to notice a symptom difference. She continues to endorse palpitations, fatigue, intermittent lightheadedness, shortness of breath, chronic LE swelling. Generalized pain associated with fibromyalgia. She has stress testing pending for further evaluation. We reviewed risk factors and modifications. We reviewed monitor results and risks benefits of OAC for stroke reduction in the setting of a-fib. She is high risk for bleeding d/t hx of GI bleeding. She admits to some minimal blood in stool currently. She plans to have a GI evaluation this Summer but is overwhelmed by scheduling other appointments at this time. PAST MEDICAL HISTORY Diagnosis Date ADD (attention deficit disorder) Anxiety and depression Atrial fibrillation (HCC) 08/30 Cellulitis of lower extremity 2019 Chronic fatigue syndrome Dizziness, nonspecific 09/07/2021 Falls frequently 09/07/2021 Fibromyalgia Folic acid deficiency GERD (gastroesophageal reflux disease) Hypothyroidism Insomnia Intractable back pain Osteopenia Type 2 diabetes mellitus without complication, without long-term current use of insulin ([facility]) 04/21/2021 PAST SURGICAL HISTORY Procedure Laterality Date APPENDECTOMY 1973 COLONOSCOPY SCREENING 08/2020, 08/2020 EXTRACTION ERUPTED TOOTH/EXR 1972 HYSTERECTOMY HX 1989 Endometriosis. Adenomyosis. Total hysterectomy, BSO LAPAROSCOPIC CHOLECYSTECTOMY 1997 LIGATE FALLOPIAN TUBE Bilateral 1988 SHOULDER SURGERY HX Right 1984 right shoulder X 3. 1978,1980,1983 TONSILLECTOMY HX 1972 FAMILY HISTORY Problem Relation Age of Onset Depression Mother Depression Father Anxiety disorder Father Social History Tobacco Use Smoking status: Former Smoker Packs/day: 2.00 Years: 12.00 Pack years: 24.00 Types: Cigarettes Start date: 1977 Quit date: 12/10/1988 Years since quittin.8 Smokeless tobacco: Never Used Tobacco comment: from age 27 Substance Use Topics Alcohol use: Not Currently Comment: none since 1995 Drug use: Not Currently Types: Marijuana Comment: none since 1969 ALLERGIES Allergen Reactions Sulfa (Sulfonamide * Anaphylaxis Medications: Current Outpatient Medications Medication Sig Dispense Refill albuterol HFA (VENTOLIN HFA) 90 mcg/actuation inhaler Inhale 2 Puffs as instructed every 6 hours as needed for wheezing/shortness of breath. methylphenidate (RITALIN) 20 mg tablet Take 20 mg by mouth once daily. diphenhydrAMINE (BENADRYL) 25 mg capsule Take 25 mg by mouth every 4 hours as needed. multivitamin/iron/folic acid (CENTRUM WOMEN ORAL) Take by mouth once daily. montelukast (SINGULAIR) 10 mg tablet Take 1 tablet by mouth daily at bedtime. 30 tablet 0 buprenorphine (BUTRANS) 5 mcg/hour Apply 1 Patch as directed one time a week. Per Dr. Carter atorvastatin (LIPITOR) 20 mg tablet Take 1 tablet by mouth once daily. 90 tablet 3 HYDROcodone-acetaminophen (NORCO) 5-325 mg per tablet Take 1 tablet by mouth twice daily. nitroglycerin sublingual (NITROSTAT) 0.4 mg SL tablet Dissolve 0.4 mg under the tongue every 5 minutes as needed. gabapentin (NEURONTIN) 300 mg capsule Take 2 capsules by mouth three times daily AND 3 capsules daily at bedtime. Do all this for 90 days. 270 capsule 2 cyclobenzaprine (FLEXERIL) 5 mg tablet Take 1 tablet by mouth three times daily as needed. 90 tablet 0 tamsulosin (FLOMAX) 0.4 mg Take 1 capsule by mouth once daily. 30 capsule 0 potassium chloride ER (K-DUR, KLOR-CON) 20 mEq tablet Take 1 tablet by mouth once daily. 90 tablet 0 [facility] THYROID 60 mg Take 1 tablet by mouth once daily. 30 tablet 0 verapamil SR (CALAN SR) 120 mg CR tablet Take 1 tablet by mouth once daily. 90 tablet 3 furosemide (LASIX) 40 mg tablet Take 1 tablet by mouth twice daily. 180 tablet 3 Omeprazole Magnesium (PRILOSEC OTC) 20 mg tablet Take 20 mg by mouth once daily. dimenhyDRINATE (DRAMAMINE) 50 mg tablet Take 50 mg by mouth at bedtime as needed (nausea). guaiFENesin (MUCUS RELIEF ER) 600 mg 12 hr tablet Take 1,200 mg by mouth twice daily. Lzdryfg-Orbbkokgnbvxw-Jubgxhds (EXCEDRIN MIGRAINE) 250-250-65 mg per tablet Take 1 tablet by mouth every 6 hours as needed for pain. traZODone (DESYREL) 100 mg tablet Take 150 mg by mouth daily at bedtime. 150-200mg at bedtime spironolactone (ALDACTONE) 25 mg tablet Take 1 tablet by mouth once daily. 90 tablet 3 aspirin, enteric coated (ASPIRIN, ENTERIC COATED) 81 mg EC tablet Take 1 tablet by mouth once daily. Cholecalciferol, Vitamin D3, 125 mcg (5,000 unit) cap Take 1 capsule by mouth once daily. ascorbic acid, vitamin C, (VITAMIN C) 500 mg tablet Take 1 tablet by mouth once daily. selenium 200 mcg tablet Take 1 tablet by mouth once daily. L-Methylfolate (L-METHYLFOLATE) 7.5 mg tab Take 1 tablet by mouth once daily. omeprazole 20 mg disintegrating tablet (PriLOSEC) Take 20 mg by mouth once daily. (Patient not taking: Reported on 09/27/2021 ) diphenoxylate-atropine (LOMOTIL) 2.5-0.025 mg per tablet Take 1 tablet by mouth four times daily as needed for diarrhea for up to 30 days. Current Facility-Administered Medications Medication Dose Route Frequency Provider Last Rate Last Admin perflutren lipid microspheres 1.3 mL in NaCl (PF) 0.9% 10 mL injection (DEFINITY) INTRAVENOUS DIRECTED PRN Drarius Alfonso APRN.CNP sodium chloride 0.9 % (flush) 10 mL (BD POSIFLUSH) 10 mL INTRAVENOUS DIRECTED PRN Darrius Alfonso APRN.GLO Review of Systems Constitutional: Positive for malaise/fatigue. Negative for chills, diaphoresis, fever and weight loss. HENT: Negative for congestion, ear pain, nosebleeds, sinus pain and sore throat. Eyes: Negative for pain. Respiratory: Positive for shortness of breath. Negative for cough and wheezing. Cardiovascular: Positive for palpitations and leg swelling. Negative for chest pain, orthopnea, claudication and PND. Gastrointestinal: Positive for blood in stool. Negative for abdominal pain and melena. Genitourinary: Negative for hematuria. Musculoskeletal: Positive for back pain and myalgias. Negative for falls. Neurological: Positive for dizziness (lightheaded ). Negative for tingling, sensory change, speech change, focal weakness, loss of consciousness, weakness and headaches. Brain fog Endo/Heme/Allergies: Does not bruise/bleed easily. Psychiatric/Behavioral: Negative for depression, memory loss and suicidal ideas. The patient is nervous/anxious. The patient does not have insomnia. Physical Examination: Vitals:BP 118/80 Pulse 117 Wt 159 lb (72.1kg) SpO2 96% BP w/Orthostatic Vitals Date and Time Orthostatic BP Orthostatic Pulse BP Pulse BP Position BP Site BP Cuff Size 09/27/21 0901 -- -- 118/80 117 -- -- -- Last 2 Encounter Wt Readings: Date: Wt: 09/27/2021 159 lb (72.1 kg) 09/07/2021 152 lb (68.9 kg) Physical Exam HENT: Head: Normocephalic. Eyes: Pupils: Pupils are equal, round, and reactive to light. Cardiovascular: Rate and Rhythm: Regular rhythm. Tachycardia present. Pulses: Radial pulses are 2+ on the right side and 2+ on the left side. Dorsalis pedis pulses are 2+ on the right side and 2+ on the left side. Heart sounds: Normal heart sounds, S1 normal and S2 normal. Comments: Chronic LE discoloration Pulmonary: Effort: Pulmonary effort is normal. No accessory muscle usage or respiratory distress. Breath sounds: Normal breath sounds. Abdominal: General: Bowel sounds are normal. Palpations: Abdomen is soft. Musculoskeletal: General: Normal range of motion. Cervical back: Normal range of motion. Right lower le+ Pitting Edema present. Left lower le+ Pitting Edema present. Skin: General: Skin is warm and dry. Neurological: Mental Status: She is alert and oriented to person, place, and time. Gait: Gait is intact. Psychiatric: Mood and Affect: Affect normal. Cognition and Memory: Memory normal. Judgment: Judgment normal. Most Recent Cardiac Testing Stress testing pending Monitor 07/26/2021 Patient had a min HR of 49 bpm, max HR of 240 bpm, and avg HR of 81 bpm. Predominant underlying rhythm was Sinus Rhythm. 9 Ventricular Tachycardia runs occurred, the run with the fastest interval lasting 6 beats with a max rate of 240 bpm, the longest lasting 7 beats with an avg rate of 194 bpm. 1 run of Supraventricular Tachycardia occurred lasting 4 beats with a max rate of 130 bpm (avg 118 bpm). Atrial Fibrillation occurred (1% burden), ranging from 100-233 bpm (avg of 168 bpm), the longest lasting 4 hours 35 mins with an avg rate of 168 bpm. Atrial Fibrillation was detected within +/- 45 seconds of symptomatic patient event(s). Isolated SVEs were rare (<1.0%), SVE Couplets were rare (<1.0%), and SVE Triplets were rare (<1.0%). Isolated VEs were rare (<1.0%, 182), VE Couplets were rare (<1.0%, 39), and VE Triplets were rare (<1.0%, 6). MD notification criteria for Rapid Atrial Fibrillation and Ventricular Tachycardia met Assessment and Plan: PAF -monitor completed: Atrial Fibrillation occurred (1% burden), ranging from 100-233 bpm (avg of 168 bpm), the longest lasting 4 hours 35 mins with an avg rate of 168 bpm -verapamil increased from 120 to 180 mg -CHADSVASC elevated, reviewed the risks and benefits of OAC for stroke reduction in the setting of a-fib. She will consider eliquis after GI evaluation- continues to have bleeding. Reports a hx of GI bleeding as well. filled the toilet with blood she would like to continue full strength ASA for now -TSH 06/29/21 5.190 Chest pain -atypical but has risk factors for CAD so will complete a stress echo for risk stratification HTN -118/80 -Continue current medication(s) -Encouraged dietary sodium restriction/DASH diet -Recommended regular aerobic exercise. -Recommend home blood pressure monitoring, to bring results in on next visit -Discussed need and benefit for weight loss. -Goal of BP <130/80 Chronic diastolic HF -chronic LE swelling per patient -recent BNP 152 -obtain recent echocardiogram records from [facility] -lasix 40 mg, aldactone 25 mg -recommended heart healthy, 2g low sodium diet, daily weights HLD -lipid panel 08/2021 LDL 175 -started on Lipitor 20 mg -repeat FLP/CMP in 12 weeks DM2 -A1C 04/2021 6.9 Follow up as scheduled. Patient to call with any issues or concerns prior to then. Some elements were copied from my note dated 07/26/2021, which have been updated where appropriate, and all reflect current medical decision making from today. Electronically signed by Darrius Alfonso APRN.CNP on September 27, 2021, 9:09 AM documented in this encounter [facility] 09-22-2021 Miscellaneous Notes Patient has been identified by name and date of : Yes Patient phones for refill(s): Pending Prescriptions Disp Refills MONTELUKAST 10 MG TABLET 30 tablet 0 Sig: Take 1 tablet by mouth daily at bedtime. VENTURA: No Date of last office visit in primary care: 09/07/2021 Hospital follow-up: 10/05/2021 Last 2 Encounter Wt Readings: Date: Wt: 09/07/2021 68.9 kg (152 lb) 08/27/2021 72.1 kg (159 lb) Previous labs/tests for medication: Not applicable Please advise. Thank you. Bernadette Lora LPN documented in this encounter [facility] 09-21-2021 History of Present illness Narrative 1. Type 2 diabetes mellitus without retinopathy (HCC) Risk of diabetic changes and vision loss can be minimized by tight control of blood sugar, blood pressure, and cholesterol levels. Educated patient to continue care with primary care doctor and/or readers' advisory service librarian to maintain optimum levels as they are important to avoid ocular complications. Encouraged patient to call the office immediately with any changes to vision or visual concerns. Advised to not wait until the next scheduled exam. Subtle foveal change on mac OCT left eye- possible impending lamellar hole? Will monitor 2. Squamous blepharitis of upper and lower eyelids of both eyes Advised to use lid wipes or lid scrubs twice daily 3. Punctate keratitis, bilateral Advised to use gel twice daily 4. Combined forms of age-related cataract of both eyes +visual significance -refer to Dr. Garcia for surgery evaluation Theodora Rey, OD September 21, 2021 10:49 AM documented in this encounter [facility] 09-21-2021 Instructions Theodora Rey, OD - 09/21/2021 10:41 AM EDT Use Ocusoft or Systane lid wipes 1-2x daily -OR can use Ocusoft or alternative hypochlorous spray Use Systane or Refresh gel 2-3x daily in both eyes documented in this encounter [facility] 09-09-2021 Miscellaneous Notes [facility] pharmacy called back in and notified of Darrius's response. Pharmacist voiced understanding and will prepare script. Darrius Del Real LPN Images from the original note were not included. Darrius Alfonso APRN.PATROL OFFICER Camille Faye RN 18 hours ago (2:43 PM) JN Ok thank you for the notification. She is on a lower dose of atorvastatin so we will continue with medication therapy Message text Received a call from pharmacist at [facility] sent to pharmacy today. Pharmacist indicates there is a drug interaction between atorvastatin and verapamil. Verapamil will increase the effects of atorvastatin. Camille Faye RN documented in this encounter [facility] 09-07-2021 History of Present illness Narrative This note was created using [employer]riter. Subjective Patient presents with: Establish Care: moved back from [place] last year Abimael Nielsen was here to establish formally. She had been getting medication refills here thru the family practice [facility]. She moved here from [place] last March. Her records from [place] were requested previously but I did not find any scanned records. Electronic permissions have . She was seeing Dr. Carter for pain management. She sees Joss Green for mental health. She was being evaluated by cardiology here. Her medication list was updated. She was chronically on high doses of gabapentin. She was on armour thyroid on a chronic basis as synthetic synthroid did not work for her. Review of Systems Constitutional: Negative. HENT: Negative. Eyes: Negative. Respiratory: Negative. Cardiovascular: Positive for leg swelling. Negative for chest pain and palpitations. Gastrointestinal: Negative. Genitourinary: Negative. Musculoskeletal: Positive for arthralgias, back pain, gait problem and neck pain. Neurological: Positive for numbness. Psychiatric/Behavioral: Positive for sleep disturbance. PAST MEDICAL HISTORY Diagnosis Date ADD (attention deficit disorder) Anxiety and depression Atrial fibrillation (HCC) 08/30 Cellulitis of lower extremity 2019 Chronic fatigue syndrome Dizziness, nonspecific 09/07/2021 Falls frequently 09/07/2021 Fibromyalgia Folic acid deficiency GERD (gastroesophageal reflux disease) Hypothyroidism Insomnia Intractable back pain Osteopenia Type 2 diabetes mellitus without complication, without long-term current use of insulin ([facility]) 04/21/2021 PAST SURGICAL HISTORY Procedure Laterality Date APPENDECTOMY 1973 COLONOSCOPY SCREENING 08/2020, 08/2020 EXTRACTION ERUPTED TOOTH/EXR 1973 HYSTERECTOMY HX 1989 Endometriosis. Adenomyosis. Total hysterectomy, BSO LAPAROSCOPIC CHOLECYSTECTOMY 1997 LIGATE FALLOPIAN TUBE Bilateral 1988 SHOULDER SURGERY HX Right 1984 right shoulder X 3. 1978,1980,1983 TONSILLECTOMY HX 1972 FAMILY HISTORY Problem Relation Age of Onset Depression Mother Depression Father Anxiety disorder Father Social History Tobacco Use Smoking status: Former Smoker Packs/day: 2.00 Years: 12.00 Pack years: 24.00 Types: Cigarettes Start date: 1977 Quit date: 12/10/1988 Years since quittin.7 Smokeless tobacco: Never Used Tobacco comment: from age 27 Substance Use Topics Alcohol use: Not Currently Comment: none since 1995 Drug use: Not Currently Types: Marijuana Comment: none since 1969 There is no immunization history on file for this patient. ALLERGIES Allergen Reactions Sulfa (Sulfonamide * Anaphylaxis Current Outpatient Medications Medication Sig HYDROcodone-acetaminophen (NORCO) 5-325 mg per tablet Take 1 tablet by mouth twice daily. nitroglycerin sublingual (NITROSTAT) 0.4 mg SL tablet Dissolve 0.4 mg under the tongue every 5 minutes as needed. gabapentin (NEURONTIN) 300 mg capsule Take 2 capsules by mouth three times daily AND 3 capsules daily at bedtime. Do all this for 90 days. cyclobenzaprine (FLEXERIL) 5 mg tablet Take 1 tablet by mouth three times daily as needed. tamsulosin (FLOMAX) 0.4 mg Take 1 capsule by mouth once daily. potassium chloride ER (K-DUR, KLOR-CON) 20 mEq tablet Take 1 tablet by mouth once daily. VP BIOLOGY THYROID 60 mg Take 1 tablet by mouth once daily. triamcinolone acetonide (KENALOG) 0.1 % ointment Apply to affected area twice daily. Up to 30 days. montelukast (SINGULAIR) 10 mg tablet Take 1 tablet by mouth daily at bedtime. verapamil SR (CALAN SR) 120 mg CR tablet Take 1 tablet by mouth once daily. furosemide (LASIX) 40 mg tablet Take 1 tablet by mouth twice daily. Omeprazole Magnesium (PRILOSEC OTC) 20 mg tablet Take 20 mg by mouth once daily. dimenhyDRINATE (DRAMAMINE) 50 mg tablet Take 50 mg by mouth at bedtime as needed (nausea). guaiFENesin (MUCUS RELIEF ER) 600 mg 12 hr tablet Take 1,200 mg by mouth twice daily. Lbtatxh-Jmgukdefhhemn-Yqpkyswd (EXCEDRIN MIGRAINE) 250-250-65 mg per tablet Take 1 tablet by mouth every 6 hours as needed for pain. traZODone (DESYREL) 100 mg tablet spironolactone (ALDACTONE) 25 mg tablet Take 1 tablet by mouth once daily. diphenoxylate-atropine (LOMOTIL) 2.5-0.025 mg per tablet Take 1 tablet by mouth four times daily as needed for diarrhea for up to 30 days. aspirin, enteric coated (ASPIRIN, ENTERIC COATED) 81 mg EC tablet Take 1 tablet by mouth once daily. Cholecalciferol, Vitamin D3, 125 mcg (5,000 unit) cap Take 1 capsule by mouth once daily. ascorbic acid, vitamin C, (VITAMIN C) 500 mg tablet Take 1 tablet by mouth once daily. selenium 200 mcg tablet Take 1 tablet by mouth once daily. L-Methylfolate (L-METHYLFOLATE) 7.5 mg tab Take 1 tablet by mouth once daily. buprenorphine (BUTRANS) 5 mcg/hour Apply 1 Patch as directed one time a week. Per Dr. Carter omeprazole 20 mg disintegrating tablet (PriLOSEC) Take 20 mg by mouth once daily. Current Facility-Administered Medications Medication Dose Route Frequency perflutren lipid microspheres 1.3 mL in NaCl (PF) 0.9% 10 mL injection (DEFINITY) INTRAVENOUS DIRECTED PRN sodium chloride 0.9 % (flush) 10 mL (BD POSIFLUSH) 10 mL INTRAVENOUS DIRECTED PRN Objective BP 108/71 (BP Site: Left Arm, BP Position: Supine, BP Cuff Size: Large Adult) Pulse 102 Temp 36.6 C (97.9 F) (Temporal Artery) Resp 16 Ht 162.6 cm (5' 4 ) Wt 68.9 kg (152 lb) BMI 26.09 kg/m Physical Exam Constitutional: General: She is not in acute distress. Appearance: She is not ill-appearing. HENT: Head: Normocephalic. Nose: Nose normal. Mouth/Throat: Pharynx: Oropharynx is clear. Comments: Poor dentition. Eyes: Extraocular Movements: Extraocular movements intact. Conjunctiva/sclera: Conjunctivae normal. Cardiovascular: Rate and Rhythm: Regular rhythm. Tachycardia present. Heart sounds: No murmur heard. No gallop. Pulmonary: Effort: No respiratory distress. Breath sounds: No wheezing or rales. Abdominal: Palpations: Abdomen is soft. Tenderness: There is no abdominal tenderness. Musculoskeletal: Right lower leg: No edema. Left lower leg: No edema. Lymphadenopathy: Cervical: No cervical adenopathy. Skin: Comments: Venous stasis pigmentation and wrinkly skin of both distal lower extremities. Neurological: General: No focal deficit present. Mental Status: She is alert and oriented to person, place, and time. Cranial Nerves: No cranial nerve deficit. Sensory: No sensory deficit. Motor: No weakness. Gait: Gait abnormal. Psychiatric: Mood and Affect: Mood normal. Behavior: Behavior normal. Feet:Shoes and socks removed, No deformities, ulcers, calluses, normal distal pulses and not sensitive to monofilament in some toes of both feet. Assessment and Plan 1. Cervical radiculopathy - ICD9: 723.4, ICD10: M54.12 (primary diagnosis) Refilled. Chronic high dose verified. - GABAPENTIN 300 MG CAPSULE 2. Lumbar radiculopathy - ICD9: 724.4, ICD10: M54.16 - GABAPENTIN 300 MG CAPSULE 3. Insomnia, unspecified type - ICD9: 780.52, ICD10: G47.00 [facility]. 4. Dizziness, nonspecific - ICD9: 780.4, ICD10: R42 Chronic. Scheduled to see neurology. 5. Falls frequently - ICD9: V15.88, ICD10: R29.6 As per #4. 6. Type 2 diabetes mellitus with diabetic neuropathy, without long-term current use of insulin (HCC) - ICD9: 250.60, 357.2, ICD10: E11.40 The patient is new to me. - CONSULT TO OPHTHALMOLOGY 7. Encounter for screening mammogram for malignant neoplasm of breast - ICD9: V76.12, ICD10: Z12.31 - [facility] SCREENING Dajuan Roach MD documented in this encounter [facility] Diagnosis Type 2 diabetes mellitus without retinopathy (HCC)- Primary Type II or unspecified type diabetes mellitus without mention of complication, not stated as uncontrolled Squamous blepharitis of upper and lower eyelids of both eyes Punctate keratitis, bilateral Combined forms of age-related cataract of both eyes Other and combined forms of senile cataract [facility] Diagnosis Mixed hyperlipidemia- Primary PAF (paroxysmal atrial fibrillation) (HCC) Atrial fibrillation Leg swelling Swelling of limb Chronic diastolic CHF (congestive heart failure) (HCC) Chronic diastolic heart failure Type 2 diabetes mellitus with diabetic neuropathy, without long-term current use of insulin (HCC) [facility] Diagnosis Hypothyroidism, acquired Unspecified hypothyroidism [facility]* Diagnosis Encounter for screening mammogram for malignant neoplasm of breast Other screening mammogram [facility] Diagnosis Encounter for hepatitis C screening test for low risk patient- Primary Mild intermittent asthma without complication Unspecified asthma Type 2 diabetes mellitus with diabetic neuropathy, without long-term current use of insulin ([facility]) [facility]* Diagnosis Vertigo- Primary Dizziness and giddiness Transient cerebral ischemia, unspecified type DDD (degenerative disc disease), cervical Degeneration of cervical intervertebral disc Dizziness Dizziness and giddiness [facility]* Diagnosis Pelvic cramping- Primary Unspecified symptom associated with female genital organs Hand injury, left, initial encounter Visit for wound check Encounter for other specified aftercare [facility] Diagnosis Screening for colon cancer- Primary Special screening for malignant neoplasms, colon [facility] Diagnosis Mixed hyperlipidemia Type 2 diabetes mellitus with diabetic neuropathy, without long-term current use of insulin (HCC) Encounter for hepatitis C screening test for low risk patient Combined forms of age-related cataract of both eyes Other and combined forms of senile cataract [facility] Diagnosis Type 2 diabetes mellitus with diabetic neuropathy, without long-term current use of insulin (HCC)- Primary Screening for osteoporosis Special screening for osteoporosis Asymptomatic menopause documented in this encounter [facility] note* Diagnosis Hypothyroidism, acquired Unspecified hypothyroidism documented in this encounter [facility] note* Diagnosis Hypothyroidism, acquired Unspecified hypothyroidism documented in this encounter [facility] note* Diagnosis Cervical radiculopathy Brachial neuritis or radiculitis nos Lumbar radiculopathy Thoracic or lumbosacral neuritis or radiculitis, unspecified documented in this encounter [facility] note* Diagnosis Type 2 diabetes mellitus with diabetic neuropathy, without long-term current use of insulin ([facility])- Primary PAF (paroxysmal atrial fibrillation) ([facility]) Atrial fibrillation Chronic diastolic CHF (congestive heart failure) ([facility]) Chronic diastolic heart failure Mild intermittent asthma without complication Unspecified asthma Need for influenza vaccination Need for prophylactic vaccination and inoculation against influenza Need for vaccination Need for prophylactic vaccination and inoculation against unspecified single disease Hypothyroidism, unspecified type Anxiety and depression Dysthymic disorder documented in this encounter [facility] note* Diagnosis Mild intermittent asthma without complication Unspecified asthma documented in this encounter [facility] note* Diagnosis Epistaxis- Primary Cervical radiculopathy Brachial neuritis or radiculitis nos Lumbar radiculopathy Thoracic or lumbosacral neuritis or radiculitis, unspecified Acute nonintractable headache, unspecified headache type PAF (paroxysmal atrial fibrillation) ([facility]) Atrial fibrillation documented in this encounter [facility] note* Diagnosis Cervical radiculopathy Brachial neuritis or radiculitis nos Lumbar radiculopathy Thoracic or lumbosacral neuritis or radiculitis, unspecified documented in this encounter [facility] note* Diagnosis Hypothyroidism, acquired Unspecified hypothyroidism documented in this encounter [facility] note* Diagnosis Dizziness, nonspecific- Primary Dizziness and giddiness Anxiety and depression Dysthymic disorder Type 2 diabetes mellitus with diabetic neuropathy, without long-term current use of insulin ([facility]) Hypothyroidism, unspecified type Encounter for screening mammogram for malignant neoplasm of breast Other screening mammogram Encounter for screening for osteoporosis Special screening for osteoporosis Asymptomatic postmenopausal status Alternating constipation and diarrhea Other symptoms involving digestive system documented in this encounter [facility] note* Diagnosis Cervical radiculopathy Brachial neuritis or radiculitis nos Lumbar radiculopathy Thoracic or lumbosacral neuritis or radiculitis, unspecified PAF (paroxysmal atrial fibrillation) (HCC) Atrial fibrillation [facility]* Diagnosis Mild intermittent asthma without complication Unspecified asthma [facility]* Diagnosis Acute non-recurrent sinusitis, unspecified location- Primary documented in this encounter [facility] note* Diagnosis Cervical radiculopathy Brachial neuritis or radiculitis nos Lumbar radiculopathy Thoracic or lumbosacral neuritis or radiculitis, unspecified documented [facility]* Diagnosis Medicare annual wellness visit, subsequent- Primary Routine general medical examination at a health care facility Lump of axilla, right Type 2 diabetes mellitus with diabetic neuropathy, without long-term current use of insulin (HCC) Mixed hyperlipidemia Colon cancer screening Special screening for malignant neoplasms, colon Hypothyroidism, unspecified type Abnormal breast finding Other abnormal clinical finding documented in this encounter [facility] note* Diagnosis Skin infection- Primary Unspecified local infection of skin and subcutaneous tissue Abrasion Abrasion or friction burn of other, multiple, and unspecified sites, without mention of infection documented in this encounter [facility] note* Diagnosis Screening mammogram for breast cancer- Primary documented in this encounter [facility] note* Diagnosis PAF (paroxysmal atrial fibrillation) (HCC) Atrial fibrillation documented in this encounter [facility] note* Diagnosis Mild intermittent asthma without complication Unspecified asthma documented in this encounter [facility] for referral (narrative)* Diagnostic Procedure Only (Routine) - Closed Specialty Diagnoses / Procedures Referred By Angyac t Referred To Contact [facility] Diagnoses Encounter for screening mammogram for malignant neoplasm of breast Procedures GERA SCREENING SCREENING MAMMOGRAPHY BI 2-VIEW BREAST INC CAD Dajuan Roach MD [address] [place] [address] [facility] [address] [place] [address] Referral ID Status Reason Start Date Expiration Date V isits Requested Visits Authorized [id number] Closed Auto-Generate d Referral 09/07/2021 10/07/2022 1 1 [facility] for referral (narrative)* Diagnostic Procedure Only (Routine) - Closed Specialty Diagnoses / Procedures Referred By Contac t Referred To Contact XR IMAGING Diagnoses Vertigo DDD (degenerative disc disease), cervical Procedures XR CERV OTHER 4V AP/LAT/OBL RADEX SPINE CERVICAL 4 OR 5 VIEWS Emiliana Goldman APRN.PATROL OFFICER [address] [place] [place] [id number] Xr Imaging Referral ID Status Reason Start Date Expiration Date V isits Requested Visits Authorized [id number] Closed Auto-Generate d Referral 10/07/2021 11/06/2022 1 1 * MRI/CT (Routine) - Authorized Specialty Diagnoses / Procedures Referred By Contac t Referred To Contact MR IMAGING Diagnoses Transient cerebral ischemia, unspecified type Procedures MRI BRAIN WO/W IVCON MRI BRAIN BRAIN STEM W/O W/CONTRAST MATERIAL Emiliana Goldman APRN.PATROL OFFICER [address] [place] [place] [id number] Mr Imaging Referral ID Status Reason Start Date Expiration Date Visits Requested Visits Authorized [id number] Authorized Auto-Generat ed Referral 10/07/2021 11/06/2022 1 1 [facility] for referral (narrative)* Diagnostic Procedure Only (Urgent) - Closed Specialty Diagnoses / Procedures Referred By Contac t Referred To Contact XR IMAGING Diagnoses Hand injury, left, initial encounter Procedures XR HAND GENERAL 3V PA/LAT/OBL LEFT RADEX HAND MINIMUM 3 VIEWS Maci Alegria PA-C [address] [place] [address] Xr Imaging Referral ID Status Reason Start Date Expiration Date V isits Requested Visits Authorized [id number] Closed Auto-Generate d Referral 10/18/2021 11/17/2022 1 1 [facility] for referral (narrative)* Outpatient Procedure (Routine) - Pending Review Specialty Diagnoses / Procedures Referred By Lionel donovan Referred To [facility] Diagnoses Mild intermittent asthma without complication Procedures LUNG VOLUMES Dajuan Roach MD [address] [place] [address] [address] Referral ID Status Reason Start Date Expiration Date Visits Requested Visits Authorized [id number] Pending Review Auto-Generat ed Referral 2 05/06/2023 1 1 * Outpatient Procedure (Routine) - Pending Review Specialty Diagnoses / Procedures Referred By Lionel donovan Referred [facility] Diagnoses Mild intermittent asthma without complication Procedures SPIROMETRY - BASELINE AND POST DILATOR BRNCDILAT RSPSE SPMTRY PRE&[place] [address] [place] [address] [address] Referral ID Status Reason Start Date Expiration Date Visits Requested Visits Authorized [id number] Pending Review Auto-Generat ed Referral 2 05/06/2023 1 1 [facility] for referral (narrative)* Diagnostic Procedure Only (Routine) - Pending Review Specialty Diagnoses / Procedures Referred By Lionel donovan Referred To Contact [facility] Diagnoses Encounter for screening mammogram for malignant neoplasm of breast Procedures GERA SCREENING SCREENING MAMMOGRAPHY BI 2-VIEW BREAST INC CAD Dajuan Roach MD [address] [place] [address] [facility] [address] [place] [id number] Referral ID Status Reason Start Date Expiration Date Visits Requested Visits Authorized [id number] Pending Review Auto-Generat ed Referral 09/23/2022 10/23/2023 1 1 [facility] for referral (narrative)* Diagnostic Procedure Only (Routine) - Pending Review Specialty Diagnoses / Procedures Referred By Angyac t Referred To Contact [facility] Diagnoses Lump of axilla, right Abnormal breast finding Procedures US BREAST LTD RIGHT US BREAST UNI REAL TIME WITH IMAGE LIMITED Kayce Jules APRN.PATROL OFFICER [address] [place] [address] [facility] [address] [place] [address] Referral ID Status Reason Start Date Expiration Date Visits Requested Visits Authorized [id number] Pending Review Auto-Generat ed Referral 01/24/2023 02/23/2024 1 1 * Diagnostic Procedure Only (Routine) - Pending Review Specialty Diagnoses / Procedures Referred By Lionel t Referred To Contact [facility] Diagnoses Lump of axilla, right Abnormal breast finding Procedures GERA DIAGNOSTIC BILATERAL DIAGNOSTIC MAMMOGRAPHY COMPUTER-AIDED DETCJ BI Kayce Jules APRN.PATROL OFFICER [address] [place] [address] [facility] [address] [place] [address] Referral ID Status Reason Start Date Expiration Date Visits Requested Visits Authorized [id number] Pending Review Auto-Generat ed Referral 01/24/2023 02/23/2024 1 1 [facility] for referral (narrative)* Diagnostic Procedure Only (Routine) - Pending Review Specialty Diagnoses / Procedures Referred By Lionel t Referred To Contact [facility] Diagnoses Screening mammogram for breast cancer Procedures GERA SCREENING W MICKY SCREENING DIGITAL BREAST TOMOSYNTHESIS BI SCREENING MAMMOGRAPHY BI 2-VIEW BREAST INC CAD Kayce Jules APRN.PATROL OFFICER [address] [place] [address] [facility] [address] [place] [address] Referral ID Status Reason Start Date Expiration Date Visits Requested Visits Authorized [id number] Pending Review Auto-Generat ed Referral 3 04/29/2024 1 1 [facility] Diagnostic Procedure Only (Routine) - Closed Specialty Diagnoses / Procedures Referred By Lionel donovan Referred To Contact [facility] Diagnoses Encounter for screening mammogram for malignant neoplasm of breast Procedures GERA SCREENING SCREENING MAMMOGRAPHY BI 2-VIEW BREAST INC Dajuan Kwon MD [address] [place] [address] [facility] [address] [place] [address] Referral ID Status Reason Start Date Expiration Date V isits Requested Visits Authorized [id number] Closed Auto-Generate d Referral 09/07/2021 10/07/2022 1 1 [facility] Reason for Referral Specialty Diagnoses / Procedures Referred By Lionel donovan Referred To Contact Ophthalmology Diagnoses Type 2 diabetes mellitus with diabetic neuropathy, without long-term current use of insulin (HCC) Procedures CONSULT TO OPHTHALMOLOGY OFFICE/OUTPATIENT NEW HIGH MDM 60-74 MINUTES Dajuan Roach MD [address] [place] [address] Referral ID Status Reason Start Date Expiration Date Visits Requested Visits Authorized [id number] Authorized PCP Requested Referral 09/07/2021 09/07/2022 1 1 Specialty Diagnoses / Procedures Referred By Lionel donovan Referred To Contact [facility] Diagnoses Encounter for screening mammogram for malignant neoplasm of breast Procedures GERA SCREENING SCREENING MAMMOGRAPHY BI 2-VIEW BREAST INC Dajuan Kwon MD [address] [place] [address] [place] [address] Referral ID Status Reason Start Date Expiration Date Visits Requested Visits Authorized [id number] Pending Review Auto-Generat ed Referral 09/07/2021 10/07/2022 1 1 Specialty Diagnoses / Procedures Referred By Lionel donovan Referred To Contact Ent - Otolaryngology Diagnoses Epistaxis Procedures CONSULT TO ENT Dajuan Roach MD [address] [place] [address] Referral ID Status Reason Start Date Expiration Date Visits Requested Visits Authorized [id number] Ref Not Required PCP Requested Referral 2 05/25/2023 1 1 Summary Purpose Family History No Family History Records FoundNo Family History Records Found Advance Directives No Advanced Directives Records FoundNo Advanced Directives Records Found Medications Administered Section Active Administered Medications - up to 3 most recent administrations Medication Order MAR Action Action Date Dose Rate Site fluorescein-benoxinate 0.25-0.4 % 1 Drop (FLURESS) 1 Drop, BOTH EYES, DIRECTED, Starting on Mon09/21/21 at 1000, Until Mon09/21/21 at 2159, Administer for applanation tonometry. In the event of a Fluress shortage, administer Kasson-Fluor 1 drop into both eyes as directed for applanation tonometry Given 09/21/2021 10:00 AM EDT 1 Drop PHENYLephrine 2.5 % 1 Drop (AK-DILATE, KRYSTAL-SYNEPHRINE) 1 Drop, BOTH EYES, DIRECTED, Starting on Mon09/21/21 at 1000, Until Mon09/21/21 at 2159, Administer for dilation PROTECT FROM LIGHT Given 09/21/2021 10:00 AM EDT 1 Drop tropicamide 1 % 1 Drop (MYDRIACYL) 1 Drop, BOTH EYES, DIRECTED, Starting on Mon09/21/21 at 1000, Until Mon09/21/21 at 2159, Administer for dilation Given 09/21/2021 10:00 AM EDT 1 Drop Additional Source Comments Source Comments (unrecognize d section and content) In the event this informatio n is protected by the Federal Confidentiality of Alcohol and Drug Abuse Patient Records regulations: The Federal rules restrict any use of the information to criminally investigate or prosecute any alcohol or drug abuse patient.[facility] event this information is protected by the Federal Confidentiality of Alcohol and Drug Abuse Patient Records regulations: The Federal rules restrict any use of the information to criminally investigate or prosecute any alcohol or drug abuse patient.[facility] the event this information is protected by the Federal Confidentiality of Alcohol and Drug Abuse Patient Records regulations: The Federal rules restrict any use of the information to criminally investigate or prosecute any alcohol or drug abuse patient.[facility] the event this information is protected by the Federal Confidentiality of Alcohol and Drug Abuse Patient Records regulations: The Federal rules restrict any use of the information to criminally investigate or prosecute any alcohol or drug abuse patient.[facility] the event this information is protected by the Federal Confidentiality of Alcohol and Drug Abuse Patient Records regulations: The Federal rules restrict any use of the information to criminally investigate or prosecute any alcohol or drug abuse patient.[facility] the event this information is protected by the Federal Confidentiality of Alcohol and Drug Abuse Patient Records regulations: The Federal rules restrict any use of the information to criminally investigate or prosecute any alcohol or drug abuse patient.[facility] the event this information is protected by the Federal Confidentiality of Alcohol and Drug Abuse Patient Records regulations: The Federal rules restrict any use of the information to criminally investigate or prosecute any alcohol or drug abuse patient.[facility] the event this information is protected by the Federal Confidentiality of Alcohol and Drug Abuse Patient Records regulations: The Federal rules restrict any use of the information to criminally investigate or prosecute any alcohol or drug abuse patient.[facility] HospitalIn the event this information is protected by the Federal Confidentiality of Alcohol and Drug Abuse Patient Records regulations: The Federal rules restrict any use of the information to criminally investigate or prosecute any alcohol or drug abuse patient.[facility] HospitalIn the event this information is protected by the Federal Confidentiality of Alcohol and Drug Abuse Patient Records regulations: The Federal rules restrict any use of the information to criminally investigate or prosecute any alcohol or drug abuse patient.[facility] HospitalIn the event this information is protected by the Federal Confidentiality of Alcohol and Drug Abuse Patient Records regulations: The Federal rules restrict any use of the information to criminally investigate or prosecute any alcohol or drug abuse patient.[facility] HospitalIn the event this information is protected by the Federal Confidentiality of Alcohol and Drug Abuse Patient Records regulations: The Federal rules restrict any use of the information to criminally investigate or prosecute any alcohol or drug abuse patient.[facility] HospitalIn the event this information is protected by the Federal Confidentiality of Alcohol and Drug Abuse Patient Records regulations: The Federal rules restrict any use of the information to criminally investigate or prosecute any alcohol or drug abuse patient.[facility] HospitalIn the event this information is protected by the Federal Confidentiality of Alcohol and Drug Abuse Patient Records regulations: The Federal rules restrict any use of the information to criminally investigate or prosecute any alcohol or drug abuse patient.[facility] HospitalIn the event this information is protected by the Federal Confidentiality of Alcohol and Drug Abuse Patient Records regulations: The Federal rules restrict any use of the information to criminally investigate or prosecute any alcohol or drug abuse patient.[facility] HospitalIn the event this information is protected by the Federal Confidentiality of Alcohol and Drug Abuse Patient Records regulations: The Federal rules restrict any use of the information to criminally investigate or prosecute any alcohol or drug abuse patient.[facility] HospitalIn the event this information is protected by the Federal Confidentiality of Alcohol and Drug Abuse Patient Records regulations: The Federal rules restrict any use of the information to criminally investigate or prosecute any alcohol or drug abuse patient.[facility] HospitalIn the event this information is protected by the Federal Confidentiality of Alcohol and Drug Abuse Patient Records regulations: The Federal rules restrict any use of the information to criminally investigate or prosecute any alcohol or drug abuse patient.[facility] HospitalIn the event this information is protected by the Federal Confidentiality of Alcohol and Drug Abuse Patient Records regulations: The Federal rules restrict any use of the information to criminally investigate or prosecute any alcohol or drug abuse patient.[facility] HospitalIn the event this information is protected by the Federal Confidentiality of Alcohol and Drug Abuse Patient Records regulations: The Federal rules restrict any use of the information to criminally investigate or prosecute any alcohol or drug abuse patient.[facility] HospitalIn the event this information is protected by the Federal Confidentiality of Alcohol and Drug Abuse Patient Records regulations: The Federal rules restrict any use of the information to criminally investigate or prosecute any alcohol or drug abuse patient.[facility] HospitalIn the event this information is protected by the Federal Confidentiality of Alcohol and Drug Abuse Patient Records regulations: The Federal rules restrict any use of the information to criminally investigate or prosecute any alcohol or drug abuse patient.[facility] HospitalIn the event this information is protected by the Federal Confidentiality of Alcohol and Drug Abuse Patient Records regulations: The Federal rules restrict any use of the information to criminally investigate or prosecute any alcohol or drug abuse patient.[facility] HospitalIn the event this information is protected by the Federal Confidentiality of Alcohol and Drug Abuse Patient Records regulations: The Federal rules restrict any use of the information to criminally investigate or prosecute any alcohol or drug abuse patient.[facility] HospitalIn the event this information is protected by the Federal Confidentiality of Alcohol and Drug Abuse Patient Records regulations: The Federal rules restrict any use of the information to criminally investigate or prosecute any alcohol or drug abuse patient.[facility] HospitalIn the event this information is protected by the Federal Confidentiality of Alcohol and Drug Abuse Patient Records regulations: The Federal rules restrict any use of the information to criminally investigate or prosecute any alcohol or drug abuse patient.[facility] HospitalIn the event this information is protected by the Federal Confidentiality of Alcohol and Drug Abuse Patient Records regulations: The Federal rules restrict any use of the information to criminally investigate or prosecute any alcohol or drug abuse patient.[facility] HospitalIn the event this information is protected by the Federal Confidentiality of Alcohol and Drug Abuse Patient Records regulations: The Federal rules restrict any use of the information to criminally investigate or prosecute any alcohol or drug abuse patient.[facility] HospitalIn the event this information is protected by the Federal Confidentiality of Alcohol and Drug Abuse Patient Records regulations: The Federal rules restrict any use of the information to criminally investigate or prosecute any alcohol or drug abuse patient.[facility] HospitalIn the event this information is protected by the Federal Confidentiality of Alcohol and Drug Abuse Patient Records regulations: The Federal rules restrict any use of the information to criminally investigate or prosecute any alcohol or drug abuse patient.[facility] HospitalIn the event this information is protected by the Federal Confidentiality of Alcohol and Drug Abuse Patient Records regulations: The Federal rules restrict any use of the information to criminally investigate or prosecute any alcohol or drug abuse patient.[facility] HospitalIn the event this information is protected by the Federal Confidentiality of Alcohol and Drug Abuse Patient Records regulations: The Federal rules restrict any use of the information to criminally investigate or prosecute any alcohol or drug abuse patient.[facility] HospitalIn the event this information is protected by the Federal Confidentiality of Alcohol and Drug Abuse Patient Records regulations: The Federal rules restrict any use of the information to criminally investigate or prosecute any alcohol or drug abuse patient.[facility] HospitalIn the event this information is protected by the Federal Confidentiality of Alcohol and Drug Abuse Patient Records regulations: The Federal rules restrict any use of the information to criminally investigate or prosecute any alcohol or drug abuse patient.[facility] HospitalIn the event this information is protected by the Federal Confidentiality of Alcohol and Drug Abuse Patient Records regulations: The Federal rules restrict any use of the information to criminally investigate or prosecute any alcohol or drug abuse patient.[facility] HospitalIn the event this information is protected by the Federal Confidentiality of Alcohol and Drug Abuse Patient Records regulations: The Federal rules restrict any use of the information to criminally investigate or prosecute any alcohol or drug abuse patient.[facility] HospitalIn the event this information is protected by the Federal Confidentiality of Alcohol and Drug Abuse Patient Records regulations: The Federal rules restrict any use of the information to criminally investigate or prosecute any alcohol or drug abuse patient.[facility] HospitalIn the event this information is protected by the Federal Confidentiality of Alcohol and Drug Abuse Patient Records regulations: The Federal rules restrict any use of the information to criminally investigate or prosecute any alcohol or drug abuse patient.[facility] HospitalIn the event this information is protected by the Federal Confidentiality of Alcohol and Drug Abuse Patient Records regulations: The Federal rules restrict any use of the information to criminally investigate or prosecute any alcohol or drug abuse patient.[facility] HospitalIn the event this information is protected by the Federal Confidentiality of Alcohol and Drug Abuse Patient Records regulations: The Federal rules restrict any use of the information to criminally investigate or prosecute any alcohol or drug abuse patient.[facility] HospitalIn the event this information is protected by the Federal Confidentiality of Alcohol and Drug Abuse Patient Records regulations: The Federal rules restrict any use of the information to criminally investigate or prosecute any alcohol or drug abuse patient.[facility] HospitalIn the event this information is protected by the Federal Confidentiality of Alcohol and Drug Abuse Patient Records regulations: The Federal rules restrict any use of the information to criminally investigate or prosecute any alcohol or drug abuse patient.[facility] HospitalIn the event this information is protected by the Federal Confidentiality of Alcohol and Drug Abuse Patient Records regulations: The Federal rules restrict any use of the information to criminally investigate or prosecute any alcohol or drug abuse patient.[facility] HospitalIn the event this information is protected by the Federal Confidentiality of Alcohol and Drug Abuse Patient Records regulations: The Federal rules restrict any use of the information to criminally investigate or prosecute any alcohol or drug abuse patient.[facility] HospitalIn the event this information is protected by the Federal Confidentiality of Alcohol and Drug Abuse Patient Records regulations: The Federal rules restrict any use of the information to criminally investigate or prosecute any alcohol or drug abuse patient.[facility] HospitalIn the event this information is protected by the Federal Confidentiality of Alcohol and Drug Abuse Patient Records regulations: The Federal rules restrict any use of the information to criminally investigate or prosecute any alcohol or drug abuse patient.[facility] HospitalIn the event this information is protected by the Federal Confidentiality of Alcohol and Drug Abuse Patient Records regulations: The Federal rules restrict any use of the information to criminally investigate or prosecute any alcohol or drug abuse patient.[facility] HospitalIn the event this information is protected by the Federal Confidentiality of Alcohol and Drug Abuse Patient Records regulations: The Federal rules restrict any use of the information to criminally investigate or prosecute any alcohol or drug abuse patient.[facility] HospitalIn the event this information is protected by the Federal Confidentiality of Alcohol and Drug Abuse Patient Records regulations: The Federal rules restrict any use of the information to criminally investigate or prosecute any alcohol or drug abuse patient.[facility] HospitalIn the event this information is protected by the Federal Confidentiality of Alcohol and Drug Abuse Patient Records regulations: The Federal rules restrict any use of the information to criminally investigate or prosecute any alcohol or drug abuse patient.[facility] HospitalIn the event this information is protected by the Federal Confidentiality of Alcohol and Drug Abuse Patient Records regulations: The Federal rules restrict any use of the information to criminally investigate or prosecute any alcohol or drug abuse patient.[facility] HospitalIn the event this information is protected by the Federal Confidentiality of Alcohol and Drug Abuse Patient Records regulations: The Federal rules restrict any use of the information to criminally investigate or prosecute any alcohol or drug abuse patient.[facility] HospitalIn the event this information is protected by the Federal Confidentiality of Alcohol and Drug Abuse Patient Records regulations: The Federal rules restrict any use of the information to criminally investigate or prosecute any alcohol or drug abuse patient.[facility] Reason for Visit (unrecogniz ed section and content) Reason Comments Medication Problem Reason Comments Diabetes Specialty Diagnoses / Procedures Referred By Contac t Referred To Contact Ophthalmology Diagnoses Type 2 diabetes mellitus with diabetic neuropathy, without long-term current use of insulin (HCC) Procedures CONSULT TO OPHTHALMOLOGY OFFICE/OUTPATIENT NEW HIGH MDM 60-74 MINUTES Dajuan Roach MD [address] [place] [address] Referral ID Status Reason Start Date Expiration Date V isits Requested Visits Authorized [id number] Closed PCP Requested Referral 09/07/2021 09/07/2022 1 1 Reason Comments Prescription Refills Reason Comments 6 week follow up heart monitor Reason Onset Date Comments Opened In Error 09/28/2021 Reason Onset Date Comments Refill Request 09/28/2021 Reason Comments F/U 1 month Reason Comments New Neur [place] Patient Consult for dizzines s Reason Comments Vestibular therapy Reason Comments UTI painful and frequent urination x 1 week Acute Visit left hand middle fin elida injury x 10 days Acute Visit check stitches on ri ght lower leg 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 Results Reason Comments Outpatient Colonoscopy Reason Onset Date Comments Refill Request 12/14/2021 Reason Onset Date Comments Refill Request 12/28/2021 Reason Comments Recheck routine follow up Reason Onset Date Comments Refill Request 02/17/2022 Reason Comments Patient Update Reason Comments Refill Request Reason Onset Date Comments Refill Request 04/04/2022 Reason Onset Date Comments F/U 6 months Immunizations 04/06/2022 Flu vaccination Reason Onset Date Comments Refill Request 05/13/2022 Reason Comments Epistaxis Reason Onset Date Comments Refill Request 07/04/2022 Refill Request 07/06/2022 Reason Onset Date Comments Refill Request 07/14/2022 Reason Onset Date Comments Refill Request 07/15/2022 Reason Onset Date Comments Refill Request 09/05/2022 Reason Comments Follow Up 4 month follow up Reason Onset Date Comments Refill Request 11/08/2022 Reason Comments Nausea Dizziness, fever, KAT , congestion, shaky legs, right ear pain, lump under right armpit x 1 week Reason Onset Date Comments Refill Request 01/04/2023 Reason Comments Medicare Wellness Exam With follow up - c/o lump under right armpit Reason Comments Derm Problem Skin irritation on b uttocks x2 weeks Reason Comments Orders Reason Comments outside bone density Reason Onset Date Comments Refill Request 04/13/2023 Reason Onset Date Comments Refill Request 05/08/2023 Care Teams (unrecognized sec tion and content) Architect Internship Relationship Specialty Start Date End Date Dajuan Roach MD [address] [place] [address] PCP - General Internal Medicine 09/07/21 Architect Internship Relationship Specialty Start Date End Date Dajuan Roach MD [address] [place] [address] PCP - General Internal Medicine 09/07/21 Architect Internship Relationship Specialty Start Date End Date Dajuan Roach MD [address] [place] [address] PCP - General Internal Medicine 09/07/21 Architect Internship Relationship Specialty Start Date End Date Dajuan Roach MD [address] [place] [address] PCP - General Internal Medicine 09/07/21 Architect Internship Relationship Specialty Start Date End Date Dajuan Roach MD [address] [facility] [place] [address] PCP - General Internal Medicine 09/07/21 Architect Internship Relationship Specialty Start Date End Date Dajuan Roach MD [address] [facility] [place] [address] PCP - General Internal Medicine 09/07/21 Architect Internship Relationship Specialty Start Date End Date Dajuan Roach MD [address] [facility] [place] [address] PCP - General Internal Medicine 09/07/21 Architect Internship Relationship Specialty Start Date End Date Dajuan Roach MD [address] [place] [address], [place] [address] PCP - General Internal Medicine 09/07/21 Architect Internship Relationship Specialty Start Date End Date Dajuan Roach MD [address] [facility] [place] [address] PCP - General Internal Medicine 09/07/21 Architect Internship Relationship Specialty Start Date End Date Dajuan Roach MD [facility] [place] [address] PCP - General Internal Medicine 09/07/21 Architect Internship Relationship Specialty Start Date End Date Dajuan Roach MD [address] [facility] [address] PCP - General Internal Medicine 09/07/21 Architect Internship Relationship Specialty Start Date End Date Dajuan Roach MD [address] [place] [address], [place] [address] PCP - General Internal Medicine 09/07/21 Architect Internship Relationship Specialty Start Date End Date Dajuan Roach MD [address] [facility] [place] [address] PCP - General Internal Medicine 09/07/21 Architect Internship Relationship Specialty Start Date End Date Dajuan Roach MD [facility] [place] [address] PCP - General Internal Medicine 09/07/21 Architect Internship Relationship Specialty Start Date End Date Dajuan Roach MD [facility] [place] [address] PCP - General Internal Medicine 09/07/21 Architect Internship Relationship Specialty Start Date End Date Dajuan Roach MD [address] [place] [address] PCP - General Internal Medicine 09/07/21 Architect Internship Relationship Specialty Start Date End Date Dajuan Roach MD [address] [place] [address] PCP - General Internal Medicine 09/07/21 Architect Internship Relationship Specialty Start Date End Date Dajuan Roach MD [facility] [place] [address] PCP - General Internal Medicine 09/07/21 Architect Internship Relationship Specialty Start Date End Date Dajuan Roach MD [facility] [place] [address] PCP - General Internal Medicine 09/07/21 Architect Internship Relationship Specialty Start Date End Date Dajuan Roach MD [facility] [place] [address] PCP - General Internal Medicine 09/07/21 Darrius Alfonso, CALCULATION CLERK.PATROL OFFICER [address] [address] Nurse Practitioner Cardiology 08/07/22 Architect Internship Relationship Specialty Start Date End Date Dajuan Roach MD [address] [facility] [place] [address] PCP - General Internal Medicine 09/07/21 Darrius Alfonso, CALCULATION CLERK.PATROL OFFICER [address] [place] [address] Nurse Practitioner Cardiology 08/07/22 Architect Internship Relationship Specialty Start Date End Date Dajuan Roach MD [address] [place] [address] PCP - General Internal Medicine 09/07/21 Darrius Alfonso, CALCULATION CLERK.PATROL OFFICER [address] [place] [address] Nurse Practitioner Cardiology 08/07/22 Architect Internship Relationship Specialty Start Date End Date Dajuan Roach MD [address] [place] [address] PCP - General Internal Medicine 09/07/21 Darrius Alfonso, CALCULATION CLERK.PATROL OFFICER [address] [place] [address] Nurse Practitioner Cardiology 08/07/22 Architect Internship Relationship Specialty Start Date End Date Dajuan Roach MD [address] [place] [address] PCP - General Internal Medicine 09/07/21 Darrius Alfonso, CALCULATION CLERK.PATROL OFFICER [address] [place] [address] Nurse Practitioner Cardiology 08/07/22 Architect Internship Relationship Specialty Start Date End Date Dajuan Roach MD [address] [place] [address] PCP - General Internal Medicine 09/07/21 Darrius Alfonso CALCULATION CLERK.PATROL OFFICER [address] [phone] (Fax) Nurse Practitioner Cardiology 08/07/22 Architect Internship Relationship Specialty Start Date End Date Dajuan Roach MD [address] [place] [address] PCP - General Internal Medicine 09/07/21 Darrius Alfonso, CALCULATION CLERK.PATROL OFFICER [address] [address] (Fax) Nurse Practitioner Cardiology 08/07/22 Architect Internship Relationship Specialty Start Date End Date Dajuan Roach MD [address] [place] [address] PCP - General Internal Medicine 09/07/21 Darrius Alfonso, CALCULATION CLERK.PATROL OFFICER [address] [phone] (Fax) Nurse Practitioner Cardiology 08/07/22 Architect Internship Relationship Specialty Start Date End Date Dajuan Roach MD [address] [place] [address] PCP - General Internal Medicine 09/07/21 Darrius Alfonso, CALCULATION CLERK.PATROL OFFICER [address] [phone] (Fax) Nurse Practitioner Cardiology 08/07/22 Architect Internship Relationship Specialty Start Date End Date Dajuan Roach MD [address] [place] [address] PCP - General Internal Medicine 09/07/21 Darrius Alfonso CALCULATION CLERK.PATROL OFFICER [address] [place] [phone] (Fax) Nurse Practitioner Cardiology 08/07/22 Architect Internship Relationship Specialty Start Date End Date Dajuan Roach MD [address] [place] [address] PCP - General Internal Medicine 09/07/21 Darrius Alfonso, CALCULATION CLERK.PATROL OFFICER [address] [place] [phone] (Fax) Nurse Practitioner Cardiology 08/07/22 Architect Internship Relationship Specialty Start Date End Date Dajuan Roach MD [address] [place] [address] PCP - General Internal Medicine 09/07/21 Darrius Alfonso, CALCULATION CLERK.PATROL OFFICER [address] [phone] (Fax) Nurse Practitioner Cardiology 08/07/22 Architect Internship Relationship Specialty Start Date End Date Dajuan Roach MD [address] [place] [address] PCP - General Internal Medicine 09/07/21 Darrius Alfonso, CALCULATION CLERK.PATROL OFFICER [address] [place] [phone] (Fax) Nurse Practitioner Cardiology 08/07/22 INFORMATION SOURCE (unrecogn ized section and content) DATE CREATED AUTHOR AUTHOR'S ORGANIZ ATION 06/20/2023 [facility] FOR RECORDS PERTAINING TO PATIENTS WHO ARE OR HAVE BEEN ENROLLED IN A CHEMICAL DEPENDENCY/SUBSTANCEABUSE PROGRAM, SOME INFORMATION MAY BE OMITTED. This clinical summary was aggregated from multiple sources. Caution should be exercised in using it in the provision of clinical care. This summary normalizes information from multiple sources, and as a consequence, information in this document may materially change the coding, format and clinical context of patient data. In addition, data may be omitted in some cases. CLINICAL DECISIONS SHOULD BE BASED ON THE PRIMARY CLINICAL RECORDS. [facility]. provides no warranty or guarantee of the accuracy or completeness of information in this document.
== END | disposition home or self-care (01) ==
LOC: MRI 08:40
PROVIDERS: PCP Internal Medicine; Referring Provider Orthopaedic Surgery Orthopaedic Surgery of the Spine; Visit Provider Orthopaedic Surgery Orthopaedic Surgery of the Spine
DX: M41.9 Scoliosis, unspecified (principal); M48.061 Spinal stenosis, lumbar region without neurogenic claudication
CPT/HCPCS: 72148

== ENCOUNTER 2023-08-07 07:20 | Day surgery (SDC) | payer MEDICARE, OTHER, SELFPAY ==
[2023-08-07] VITALS (29 sets, daily range): BP systolic 63–112; BP diastolic 48–79; PULSE 79–147; RESP 14–18; TEMP 36.2–36.4; O2SAT 91–99; BMI 26.2
--- OUTSIDE RECORDS SUMMARY | 2023-08-07 07:44 | XMS RPT_ITS | CCD ---
Author Name Unknown Address [address] [place] [address] Organization [facility] Care Team Providers Care Drupal Php Developer Name Role Phone Unavailable Primary Care Provider Unavailleti Roach MD, Dajuan Andrew Primary Care Provider [phone] [place] WELSH, Dajuan Andrew Primary Care Provider [phone] [place] WELSH, Dajuan Andrew Primary Care Provider [phone] Daya SOLIMAN.Taylor CODY Unavailable DAJUAN ROACH Primary Care Unavailable KAYCE NIX Attending Unavailable HERNESTO, DAJUAN Andrew Primary Care Unavailable HERNESTO, DAJUAN Andrew Primary Care Unavailable DAJUAN ROACH Referring Unavailable HERNESTO, DAJUAN Andrew Primary Care Unavailable HERNESTO, DAJUAN Andrew Attending Unavailable TAYLOR ALFONSO Attending Unavailable ROACH, DAJUAN Andrew Primary Care Unavailable ROACH, DAJUAN Andrew Attending Unavailable HERNESTO, DAJUAN Andrew Primary Care Unavailable HERNESTO, DAJUAN Andrew Primary Care Unavailable HERNESTO, DAJUAN Andrew Referring Unavailable HERNESTO, DAJUAN Andrew Primary Care Unavailable HERNESTO, DAJUAN Andrew Attending Unavailable HERNESTO, DAJUAN Andrew Primary Care Unavailable HERNESTO, DAJUAN Andrew Primary Care Unavailable KAYCE NIX Referring Unavailable Allergies Allergy Classification Reported Allergen(s) Allergy Type Date of Onset Reaction(s) Facility (20 sources) Sulfonamides (Antibiotic); Translations: [SULFA (SULFONAMIDE ANTIBIOTICS)] Drug Allergy 1 Anaphylaxis [facility] (17 sources) Prochlorperazine ; Translations: [PROCHLORPERAZIN E] Drug Allergy 3 Mental Status Change [facility] (14 sources) Ketorolac; Translations: [KETOROLAC] Drug Allergy 3 Other: See Comments [facility] (14 sources) pregabalin; Translations: [PREGABALIN] Drug Allergy 3 Mental Status Change [facility] (2 sources) MOSQUITOS; Translations: [MOSQUITOS] Propensity to adverse reactions (disorder) 3 Anaphylaxis [facility] Repository Medications Current Medications Medication Drug Class(es) [...] sacral region, stage 1] Onset: 06-16-2023 Chronic Congestive heart failure; nonhypertensive (20 sources) Chronic [...] body region, initial encounter] 02-22-2023 Episodic Other nervous system disorders (1 source) Impaired cognition; Translations: [Other symptoms and signs involving cognitive functions and awareness] Onset: 05-25-2023 05-25-2023 Episodic Other skin disorders (1 source) Localized [...] Classification Problem Date Documented Da te Episodic/Chronic Conditions associated with dizziness or vertigo (20 sources) Dizziness; Translations: [Dizziness and giddiness] Onset: 09-07-2021 Episodic Other connective tissue disease (20 sources) Recurrent falls ; Translations: [Repeated falls] Onset: 09-07-2021 Episodic Other gastrointestinal disorders (17 sources) Constipation alternates with diarrhea; Translations: [Other [...] breast] Onset: 09-23-2022 Episodic Residual codes; unclassified (17 sources) Other specified personal risk factors, not elsewhere classified; Translations: [Other specified personal history presenting hazards to health] Onset: 08-07-2022 08-07-2022 Episodic Residual codes; unclassified (17 sources) Anticoagulation declined; Translations: [Procedure and treatment [...] 98.29 [degF] Cindy Palmer APRN.CNP Work Phone: [facility] 02-22-2023 09:42-0400 Body weight 65.41 kg Cindy Palmer APRN.CNP Work Phone: [facility] 02-22-2023 09:42-0400 Diastolic blood pressure 76 mm[Hg] Cindy Palmer APRN.CNP Work Phone: [facility] 02-22-2023 09:42-0400 Heart rate 86 /min Cindy Palmer APRN.CNP Work Phone: [facility] 02-22-2023 09:42-0400 Respiratory rate 18 /min Cindy Palmer APRN.CNP Work Phone: [facility] 02-22-2023 09:42-0400 SaO2% (BldA) [Mass fraction] 96 % Cindy Palmer APRN.CNP Work Phone: [facility] 02-22-2023 09:42-0400 Systolic blood pressure 116 mm[Hg] Cindy Palmer SPEECH ASSISTANT.CONTROL MANAGER Work Phone: [facility] 01-24-2023 10:00-0400 Body height 161 cm Kayce Older SPEECH ASSISTANT.CONTROL MANAGER Work Phone: [facility] 01-24-2023 10:00-0400 Body weight 64.86 kg Kayce Older SPEECH ASSISTANT.CONTROL MANAGER Work Phone: [facility] 01-24-2023 10:00-0400 Diastolic blood pressure 72 mm[Hg] Kayce Older SPEECH ASSISTANT.CONTROL MANAGER Work Phone: [facility] 01-24-2023 10:00-0400 Heart rate 80 /min Kayce Older SPEECH ASSISTANT.CONTROL MANAGER Work Phone: [facility] 01-24-2023 10:00-0400 Respiratory rate 18 /min Kayce Older SPEECH ASSISTANT.CONTROL MANAGER Work Phone: [facility] 01-24-2023 10:00-0400 Systolic blood pressure 114 mm[Hg] Kayce Older SPEECH ASSISTANT.CONTROL MANAGER Work Phone: [facility] 12-26-2022 10:50-0400 Body temperature 96.91 [degF] Filippo Boggs MD Work Phone: [facility] 12-26-2022 10:50-0400 Body weight 66.77 kg Filippo Boggs MD Work Phone: [facility] 12-26-2022 10:50-0400 Diastolic blood pressure 80 mm[Hg] Filippo Boggs MD Work Phone: [facility] 12-26-2022 10:50-0400 Heart rate 68 /min Filippo Boggs MD Work Phone: [facility] 12-26-2022 10:50-0400 Respiratory rate 21 /min Filippo Boggs MD Work Phone: [facility] 12-26-2022 10:50-0400 SaO2% (BldA) [Mass fraction] 98 % Filippo Boggs MD Work Phone: [facility] 12-26-2022 10:50-0400 Systolic blood pressure 120 mm[Hg] Filippo Boggs MD Work Phone: [facility] 05-25-2022 10:55-0500 Body temperature 97.39 [degF] Dajuan Roach MD Work Phone: [facility] 05-25-2022 10:55-0500 Body weight 72.12 kg Dajuan Roach MD Work Phone: [facility] 05-25-2022 10:55-0500 Diastolic blood pressure 74 mm[Hg] Dajuan Roach MD Work Phone: [facility] 05-25-2022 10:55-0500 Heart rate 104 /min Dajuan Roach MD Work Phone: [facility] 05-25-2022 10:55-0500 Respiratory rate 12 /min Dajuan Roach MD Work Phone: [facility] 05-25-2022 10:55-0500 Systolic blood pressure 120 mm[Hg] Dajuan Roach MD Work Phone: [facility] 04-06-2022 09:21-0400 Body height 160 cm Dajuan Roach MD Work Phone: [facility] 04-06-2022 09:21-0400 Body temperature 98.01 [degF] Dajuan Roach MD Work Phone: [facility] 04-06-2022 09:21-0400 Body weight 69.85 kg Dajuan Roach MD Work Phone: [facility] 04-06-2022 09:21-0400 Diastolic blood pressure 74 mm[Hg] Dajuan Roach MD Work Phone: [facility] 04-06-2022 09:21-0400 Respiratory rate 14 /min Dajuan Roach MD Work Phone: [facility] 04-06-2022 09:21-0400 Systolic blood pressure 118 mm[Hg] Dajuan Roach MD Work Phone: [facility] 01-04-2022 11:38-0400 Diastolic blood pressure 74 mm[Hg] Kayce Older SPEECH ASSISTANT.CONTROL MANAGER Work Phone: [facility] 01-04-2022 11:38-0400 Systolic blood pressure 116 mm[Hg] Kayce Older SPEECH ASSISTANT.CONTROL MANAGER Work Phone: [facility] 01-04-2022 11:23-0400 Body height 160.7 cm Kayce Older SPEECH ASSISTANT.CONTROL MANAGER Work Phone: [facility] 01-04-2022 11:23-0400 Body weight 71.67 kg Kayce Older SPEECH ASSISTANT.CONTROL MANAGER Work Phone: [facility] 01-04-2022 11:23-0400 Heart rate 88 /min Kayce Older SPEECH ASSISTANT.CONTROL MANAGER Work Phone: [facility] 01-04-2022 11:23-0400 Respiratory rate 16 /min Kayce Older SPEECH ASSISTANT.CONTROL MANAGER Work Phone: [facility] 10-18-2021 11:43-0400 Body temperature 98.1 [degF] Maci Athy PA-C Work Phone: [facility] 10-18-2021 11:43-0400 Body weight 72.03 kg Maci Athy PA-C Work Phone: [facility] 10-18-2021 11:43-0400 Diastolic blood pressure 68 mm[Hg] Maci Athy PA-C Work Phone: [facility] 10-18-2021 11:43-0400 Heart rate 100 /min Maci Athy PA-C Work Phone: [facility] 10-18-2021 11:43-0400 Respiratory rate 21 /min Maci Athy PA-C Work Phone: [facility] 10-18-2021 11:43-0400 SaO2% (BldA) [Mass fraction] 98 % Maci Athy PA-C Work Phone: [facility] 10-18-2021 11:43-0400 Systolic blood pressure 118 mm[Hg] Maci Alegria PA-C Work Phone: [facility] 10-07-2021 08:51-0400 Body temperature 98.01 [degF] Emiliana Dahlhausen SPEECH ASSISTANT.CONTROL MANAGER Work Phone: [facility] 10-07-2021 08:51-0400 Body weight 71.67 kg Emiliana Dahlhausen SPEECH ASSISTANT.CONTROL MANAGER Work Phone: [facility] 10-07-2021 08:51-0400 Diastolic blood pressure 82 mm[Hg] Emiliana Dahlhausen SPEECH ASSISTANT.CONTROL MANAGER Work Phone: [facility] 10-07-2021 08:51-0400 Heart rate 106 /min Emiliana Dahlhausen SPEECH ASSISTANT.CONTROL MANAGER Work Phone: [facility] 10-07-2021 08:51-0400 Respiratory rate 18 /min Emiliana Dahlhausen SPEECH ASSISTANT.CONTROL MANAGER Work Phone: [facility] 10-07-2021 08:51-0400 SaO2% (BldA) [Mass fraction] 97 % Emiliana Dahlhausen SPEECH ASSISTANT.CONTROL MANAGER Work Phone: [facility] 10-07-2021 08:51-0400 Systolic blood pressure 132 mm[Hg] Emiliana Dahlhausen SPEECH ASSISTANT.CONTROL MANAGER Work Phone: [facility] 10-05-2021 11:17-0400 Body temperature 97.39 [degF] Dajuan Roach MD Work Phone: [facility] 10-05-2021 11:17-0400 Body weight 72.3 kg Dajuan Roach MD Work Phone: [facility] 10-05-2021 11:17-0400 Diastolic blood pressure 74 mm[Hg] Dajuan Roach MD Work Phone: [facility] 10-05-2021 11:17-0400 Heart rate 92 /min Dajuan Roach MD Work Phone: [facility] 10-05-2021 11:17-0400 Respiratory rate 12 /min Dajuan Roach MD Work Phone: [facility] 10-05-2021 11:17-0400 SaO2% (BldA) [Mass fraction] 96 % Dajuan Roach MD Work Phone: [facility] 10-05-2021 11:17-0400 Systolic blood pressure 120 mm[Hg] Dajuan Roach MD Work Phone: [facility] 09-27-2021 09:01-0400 Body weight 72.12 kg Taylor Alfonso APRN.CONTROL MANAGER Work Phone: [facility] 09-27-2021 09:01-0400 Diastolic blood pressure 80 mm[Hg] Taylor Alfonso APRN.CONTROL MANAGER Work Phone: [facility] 09-27-2021 09:01-0400 Heart rate 117 /min Taylor Alfonso APRN.CONTROL MANAGER Work Phone: [facility] 09-27-2021 09:01-0400 SaO2% (BldA) [Mass fraction] 96 % Taylor Alfnoso APRN.CONTROL MANAGER Work Phone: [facility] 09-27-2021 09:01-0400 Systolic blood pressure 118 mm[Hg] Taylor Alfonso APRN.CONTROL MANAGER Work Phone: [facility] 09-07-2021 11:37-0400 Diastolic blood pressure 71 mm[Hg] Dajuan Roach MD Work Phone: [facility] 09-07-2021 11:37-0400 Heart rate 102 /min Dajuan Roach MD Work Phone: [facility] 09-07-2021 11:37-0400 Systolic blood pressure 108 mm[Hg] Dajuan Roach MD Work Phone: [facility] 09-07-2021 11:24-0400 Body height 162.6 cm Dajuan Roach MD Work Phone: [facility] 09-07-2021 11:24-0400 Body temperature 97.9 [degF] Dajuan Roach MD Work Phone: [facility] 09-07-2021 11:24-0400 Body weight 68.95 kg Dajuan Roach MD Work Phone: [facility] 09-07-2021 11:24-0400 Respiratory rate 16 /min Dajuan Roach MD Work Phone: [facility] Encounters Encounter Date Encounter Type Care Provider Facility Start: 07-28-2023 Refill Taylor metzger SPEECH ASSISTANT.CONTROL MANAGER Work Phone: Cardiology Procedures Date Procedure Procedure Detail Performing Clinician Start: 04-06-2022 INFLUENZA SEASONAL QUADRIVALENT HIGH DOSE AGE 65+ Dajuan Roach MD Work Phone: Start: 04-06-2022 Hemoglobin A1c/Hemoglobin.total in Blood Dajuan Roach MD Work Phone: Start: 11-17-2021 Urine albumin quantitative Dajuan Roach MD Work Phone: Start: 11-17-2021 End: 11-17-2021 Comprehensive metabolic panel Taylor Alfonso SPEECH ASSISTANT.CONTROL MANAGER Work Phone: Start: 11-17-2021 Hepatitis c antibody Vi ángel Roach MD Work Phone: Start: 10-18-2021 Urnls dip stick/tabl et rgnt auto w/o microscopy Cindy Palmer SPEECH ASSISTANT.CONTROL MANAGER Work Phone: Start: 09-29-2021 End: 09-29-2021 Mammography Dajuan Swift Work Phone: Start: 09-21-2021 Computerized ophthal ailyn imaging retina Theodora Rey OD Work Phone: Start: 07-14-2021 Adult depression scr eening assessment Dajuan Roach MD Work Phone: Plan of Treatment Date Care Activity Detail Author Start: 10-14-2031 Urine microalbumin profile [facility] Start: 06-16-2024 Annual PCP Team Costume Maker alondra Disease Visit Annual PCP Team Chronic Disease Visit [facility] Start: 03-07-2024 Glaucoma screening Dilated Retinal E xam [facility] Start: 03-07-2024 Hepatitis C antibody , confirmatory test Dilated Retinal Exam [facility] Start: 02-23-2024 Hepatitis B screening Urine Al bumin:Creatinine Ratio [facility] Start: 02-23-2024 Hepatitis B surface antibody level LDL Cholesterol [facility] Start: 01-25-2024 ANNUAL PCP TEAM CROP AND SOIL TECHNICIAN ALONDRA DISEASE VISIT ANNUAL PCP TEAM CHRONIC DISEASE VISIT [facility] Start: 01-25-2024 SHINGRIX VACCINE (1 of 2) SAMUELS GRIX VACCINE (1 of 2) [facility] Immunizations Immunization Date Immunization Notes Care Provider Ann miller 05-18-2023 respiratory syncytia l virus (RSV) vaccine, bivalent (ABRYSVO) Taylor Alfonso APRN.[facility] Work Phone: [facility] Work Phone: 04-21-2023 influenza (HD-IIV4) vaccine, age 65+ yr, high dose, quadrivalent, PF (FLUZONE HIGH-DOSE) Taylor Alfonso APRN.[facility] Work Phone: [facility] Work Phone: 04-06-2022 influenza, high-dose , quadrivalent vaccine (FLUZONE HIGH DOSE QUADRIVALENT) Dajuan Roach MD Work Phone: [facility] 04-06-2022 pneumococcal (PCV20) vaccine, 20 valent (PREVNAR 20) Dajuan Roach MD Work Phone: [facility] 04-06-2022 pneumococcal Conjuga te, unspecified formulation Dajuan Roach MD Work Phone: [facility] Work Phone: 04-06-2022 influenza virus vacc ine, unspecified formulation Cindy Palmer APRN.CONTROL MANAGER Work Phone: [facility] 03-09-2022 COVID-19 booster vaccine, age 12+ yr, bivalent (MODERNA) Dajuan Roach MD Work Phone: [facility] Work Phone: 10-13-2021 tetanus toxoid, redu mao diphtheria toxoid, and acellular pertussis vaccine, adsorbed Taylor Daya SPEECH ASSISTANT.[facility] Work Phone: [facility] Work Phone: 10-22-2020 COVID-19 original vaccine, booster dose, monovalent (MODERNA) Dajuan Roach MD Work Phone: [facility] Work Phone: 09-24-2020 COVID-19 original vaccine, booster dose, monovalent (MODERNA) Dajuan Roach MD Work Phone: [facility] Work Phone: 08-28-2001 TD(adult) unspecifie d formulation Taylor Daya SPEECH ASSISTANT.[facility] Work Phone: [facility] Work Phone: 05-17-2000 pneumococcal polysaccharide vaccine, 23 valent Taylor Daya SPEECH ASSISTANT.[facility] Work Phone: [facility] Work Phone: 07-30-1993 hepatitis B vaccine, adult dosage Taylor Daya SPEECH ASSISTANT.[facility] Work Phone: [facility] Work Phone: 03-04-1993 hepatitis B vaccine, adult dosage Taylor Daya SPEECH ASSISTANT.[facility] Work Phone: [facility] Work Phone: 02-04-1993 hepatitis B vaccine, adult dosage Taylor Daya SPEECH ASSISTANT.[facility] Work Phone: [facility] Work Phone: 03-12-1992 TD(adult) unspecifie d formulation Taylor Daya SPEECH ASSISTANT.CONTROL MANAGER Work Phone: [facility] Work Phone: Payers Date Payer Category Payer Medicare [id number] 2020 Private Health Insurance [employer] MEDICARE SUPPLEMENT [id number] 2020-Present [phone] [address] [place] [address] Indemnity [id number] 2020 Private Health Insurance [employer] MEDICARE SUPPLEMENT [id number] 2020-Present [phone] [address] [place] [address] Indemnity [id number] 2017 Medicare MEDICARE MEDICAR E A AND B [id number] 2017-Present [phone] [address] [address] [place] [address] Medicare [id number] 2017 Medicare MEDICARE MEDICAR E A AND B [id number] 2017-Present [phone] [place] [address] Medicare [id number] 2017 Medicare [id number] Social History Date Type Detail Facility Start: 04-21-2021 End: 05-25-2022 Tobacco smoking status NHIS Ex-smoker [facility] Start: 1977 End: 12-10-1988 History of tobacco use Current smoker [facility] Start: 1977 End: 12-10-1988 History of tobacco use Cigarette Smoker [facility] Start: 04-21-2021 End: 01-24-2023 Cigarettes smoked current (pack per day) - Reported 2 [facility] Start: 04-21-2021 End: 05-25-2022 Tobacco use and exposure Smokeless tobacco non-user [facility] Start: 09-07-2021 End: 06-16-2023 Alcohol intake Ex-drinker (finding) [facility] Start: 09-07-2021 End: 01-04-2022 History SDOH Alcohol Frequency 1 [facility] Start: 09-07-2021 History SDOH Alcohol Comment none since 1995 [facility] Start: 09-07-2021 End: 05-25-2022 Tobacco Comment from age 27 [facility] Start: 1950 Sex Assigned At Not on file [facility] Start: 08-28-2021 End: 10-18-2021 Exposure to SARS-CoV-2 (event) Not sure [facility] Work Phone: Start: 1950 Sex Assigned At Female [facility] Start: 10-19-2021 End: 01-06-2022 Exposure to SARS-CoV-2 (event) Unable to assess [facility] Work Phone: Start: 01-04-2022 History SDOH Alcohol Std Drinks 98 [facility] Start: 01-04-2022 History SDOH Social Connections Phone 5 [facility] Start: 01-04-2022 End: 04-04-2022 History SDOH Social Connections Get Together 2 [facility] Start: 01-04-2022 History SDOH Social Connections [facility] 3 [facility] Start: 01-04-2022 History SDOH Social Connections Living 4 [facility] Start: 01-04-2022 History SDOH Physical Activity DPW 0 [facility] Start: 01-04-2022 End: 01-24-2023 Social connection and isolation panel [facility] Do you belong to any clubs or organizations such as sabianism groups, unions, fraternal or athletic groups, or school groups? Yes [facility] Are you now , , , , never or living with a partner? [facility] How often to you hav e a drink containing alcohol? Never [facility] How many standard dr inks containing alcohol do you have on a typical day? Patient refused [facility] How hard is it for y ou to pay for the very basics like food, housing, medical care, and heating Very hard [facility] Do you feel stress - tense, restless, nervous, or anxious, or unable to sleep at night because your mind is troubled all the time - these days [OSQ] Only a little [facility] (I/We) worried wheth er (my/our) food would run out before (I/we) got money to buy more. Sometimes true [facility] In the past 12 month s, was there a time when you were not able to pay the mortgage or rent on time? No [facility] Start: 10-07-2021 Gender identity Identifies as female gender (finding) [facility] Start: 10-07-2021 Sexual orientation Heterosexual (finding) [facility] Medical Equipment Procedure Code Equipment Code Equipment Origin al Text Equipment Identifier Dates Start: 01-04-2022 Clinical Notes 09-07-2021 to 07-28-2023 Telephone Encounter - Beryl Herrera LPN - 07/28/2023 10:07 AM ESTTelephone Encounter - Ree Langston LPN - 05/18/2023 12:40 PM ESTTelephone Encounter - Clive Johnson Ma - 05/18/2023 8:21 AM EST Note Date & Type Note Facility 07-28-2023 Miscellaneous Notes Patient's request for medication is as follows: Requested Prescriptions Pending Prescriptions Disp Refills potassium chloride ER (KLOR-CON) 20 mEq tablet 90 tablet 0 Sig: Take 1 tablet by mouth once daily. Last seen 07/18/2022. Follow up appointment for 01/16/2023 [place] was canceled. Prescription(s) as above. Please process accordingly. Beryl Herrera LPN documented in this encounter [facility] 06-16-2023 Note HNO ID: [id number] Author: DAJUAN ROACH MD Service: ? Author Type: Physician Type: Progress Notes Filed: 06/16/2023 23:04 Note Text: This note was created using NoteWriter. Subjective Patient presents with: Hospital F/U UTI Sinus Infection,frequent/recurring LESION, SKIN: fell - broke open skin between butt cheeks Ember Nielsen is a 73 year old female [...] Neuropathy, Without Long-Term Current Use of Insulin ([facility]) Lumbar Radiculopathy Cervical Radiculopathy Dizziness, Nonspecific Falls Frequently Hypothyroidism Paf (Paroxysmal Atrial Fibrillation) ([facility]) Mixed Hyperlipidemia Chronic Diastolic Chf (Congestive Heart Failure) ([facility]) Mild Intermittent Asthma Without Complication Anxiety and [...] by mouth twice daily as needed. From [facility] lactulose 10 gram/15 mL (15 mL) soln Take 10 g by mouth daily at bedtime. [facility] rosuvastatin (CRESTOR) 10 mg tablet Take [...] Take 1 tablet by mouth once daily. AUTO DESIGN DETAILER THYROID 60 mg tablet Take 1 tablet [...] by mouth at bedtime as needed (nausea). Kcxkrkc-Fwwxdovscnayc-Rqldzpgq (EXCEDRIN MIGRAINE) 250-250-65 mg per tablet Take [...] acute distress. HENT (more content not included)... [facility] 05-25-2023 Note HNO ID: [id number] Author: Dajuan Roach MD Service: ? Author Type: Physician Type: Progress Notes Filed: 05/25/2023 10:14 AM Note Text: This note was created using [employer] ([employer]). Subjective Ember Nielsen is a 73 year old female. She gave a history of transient ischemic attack when she was in [place] and progressive cognitive decline since 2019. She [...] Neuropathy, Without Long-Term Current Use of Insulin ([facility]) Lumbar Radiculopathy Cervical Radiculopathy Dizziness, Nonspecific Falls Frequently Hypothyroidism Paf (Paroxysmal Atrial Fibrillation) ([facility]) Mixed Hyperlipidemia Chronic Diastolic Chf (Congestive Heart Failure) ([facility]) Mild Intermittent Asthma Without Complication Anxiety and [...] by mouth twice daily as needed. From [facility] lactulose 10 gram/15 mL (15 mL) soln Take 10 g by mouth daily at bedtime. [facility] rosuvastatin (CRESTOR) 10 mg tablet Take [...] Take 1 tablet by mouth once daily. [employer] DESIGN DETAILER THYROID 60 mg tablet Take 1 tablet [...] Take 1,200 mg by mouth twice daily. Eiyuehw-Zjqoqkvzpatbd-Jxihrtzg (EXCEDRIN MIGRAINE) 250-250-65 mg per tablet Take 1 tablet by mouth every 6 hours as needed for pain. aspirin, enteric coated (ASPIRIN, ENTERIC COATED) 81 mg EC tablet Take 1 tablet by mouth once daily. ascorbic acid, vitamin C, (VIT (more content not included)... [facility] 05-18-2023 Miscellaneous Notes Patient calling from pharmacy, [...] to the pharmacy. Please call patient at: [phone] Frances Avery documented in this encounter [facility] 05-08-2023 Miscellaneous Notes Patient has been [...] Please advise. Thank you. Bernadette Lora LPN. Ember let her Jardiance script , because of cost. She was informed that she can get a card to help defray the cost and would like a new prescription sent in. Pharmacy verified in [facility] Patient has been identified by name [...] advise. Beryl Avery documented in this encounter [facility] 04-14-2023 Miscellaneous Notes Patient has been [...] you. YONATHAN Pozo. documented in this encounter [facility] 04-06-2023 Note HNO ID: [id number] Author: Maryjo Yarbrough LPN Service: ? Author Type: ? Type: Progress Notes Filed: 04/06/2023 12:37 PM Note Text: Scan on 04/06/2023 10:00 AM by ProviderMinal PA-C: Bone Density Scan on 04/06/2023 11:04 AM by ProviderMinal PA-C: Bone Density [facility] 04-06-2023 History of Present illness Narrative Scan on 04/06/2023 10:00 AM by ProviderMinal PA-C: Bone Density Scan on 04/06/2023 11:04 AM by ProviderMinal PA-C: Bone Density documented in this encounter [facility] 04-04-2023 Miscellaneous Notes Printed Orders faxed to [phone]. Bernadette Lora LPN Shweta from [facility] Scheduling dept calling patient has appt scheduled for Monday for mamm and bone density. They had the Mamm order but not correct, needs with micky order. And asking to have the bone density order and mamm both faxed to [phone]. Pending micky gera order needs filed and bone density order is in computer already. Please fax both when signed. Please advise documented in this encounter [facility] 02-27-2023 Miscellaneous Notes Patient notified of below results, verbalized understanding. Bernadette Lora LPN ----- Message from Kayce Jules APRN.CNP sent at 02/27/2023 2:01 PM EDT ----- HgbA1c 7.1, diabetes control slightly improved. The rest of her labs were normal Kayce Jules APRN.CNP documented in this encounter [facility] 02-24-2023 Miscellaneous Notes Patient given results and verbalized understanding of instructions given. Radha Howard Please let patient know that the wound culture revealed bacterial growth. Continue taking the antibiotic, as it is appropriate. Follow up with PCP documented in this encounter [facility] 02-22-2023 Note HNO ID: [id number] Author: Cindy Palmer APRN.GLO Service: ? Author Type: Nurse Practitioner Type: Progress Notes Filed: 02/22/2023 10:13 AM Note Text: This note was created using FightMeriter. Subjective Ember Nielsen is a 72 year old female. [...] T14.8XXA - see above E Adrianna [employer] Student Supervising therapist was present and guided the care of the patient for the entire session on this date. All documentation was reviewed and agreed upon. Cindy Palmer APRN.[facility] 02-22-2023 History of Present illness Narrative Images from the original note were not included. This note was created using FightMeriter. Caitlin Nielsen is a 72 year old female. Patient presents with ulceration and skin irritation of the cleft for two weeks. Pain is 6/10 [...] T14.8XXA - see above E Adrianna [employer] Student Supervising therapist was present and guided the care of the patient for the entire session on this date. All documentation was reviewed and agreed upon. Cindy Palmer APRN.CNP documented in this encounter [facility] 01-24-2023 Note HNO ID: [id number] Author: Kayce Jules APRN.CNP Service: ? Author Type: Nurse Practitioner Type: Progress Notes Filed: 01/24/2023 10:38 AM Note Text: Ember Nielsen is a 72 year old female here for a Medicare wellness visit. Health Risk Assessment In general, health is: Good Concerns with balance:More than half the days, ambulates with a walker Concerns with teeth or dentures:multiple missing teeth, issues with chewing Concerns with sexual function:prefers not to answer [place] anxious, stressed, angry, irritable, lonely, isolated, or [...] Medicine) Outside specialists seen: Cardiology- Dr. Villalba [facility] Boat Tester- Dr. Arshad GI- [facility]- [facility] Pain management- Dr. Carter Medical/Family history review [...] Cologuard - Bone density testing (scheduled at [facility]) - Opioid prescription and treatment plan review 2. Lump of axilla, right - ICD9: 782.2, ICD10: R22.31 Patient scheduled for mamm screening at [facility], will change to diagnostic mammogram with ultrasound [...] 7. Abnormal breast fingind See #2 Kayce Older, SPEECH ASSISTANT.CONTROL MANAGER [facility] 01-24-2023 Instructions Kayce JulesJOURDAN.GLO - 01/24/2023 10:12 AM EDT Screening schedule [...] review all the medicines you take, even bygt-grb-aoqyycv medicines. As you get older, the way [...] certain medical conditions. documented in this encounter [facility] 01-24-2023 History of Present illness Narrative Ember Nielsen is a 72 year old female here for a Medicare wellness visit. Health Risk Assessment In general, health is: Good Concerns with balance:More than half the days, ambulates with a walker Concerns with teeth or dentures:multiple missing teeth, issues with chewing Concerns with sexual function:prefers not to answer [place] anxious, stressed, angry, irritable, lonely, isolated, or [...] Medicine) Outside specialists seen: Cardiology- Dr. Villalba [facility] Boat Tester- Dr. Arshad GI- Dr. Blas Psychiatry- [facility] Pain management- Dr. Carter Medical/Family history review [...] Cologuard - Bone density testing (scheduled at [facility]) - Opioid prescription and treatment plan review 2. Lump of axilla, right - ICD9: 782.2, ICD10: R22.31 Patient scheduled for mamm screening at [facility], will change to diagnostic mammogram with ultrasound [...] Abnormal breast fingind See #2 Kayce Jules APRN.CONTROL MANAGER documented in this encounter [facility] 01-06-2023 Miscellaneous Notes Patient's request for [...] Bernadette Lora LPN documented in this encounter [facility] 12-26-2022 Note HNO ID: [id number] Author: Filippo Boggs MD Service: ? Author [...] constipation and diarrhea 06/02/2022 Dr. Chantell Blas, [facility] Anticoagulant medication declined by patient Anxiety and depression At risk for stroke Atrial fibrillation ([facility]) 08/30 Cellulitis of lower extremity 2019 Chronic fatigue syndrome Dizziness, nonspecific 09/07/2021 Falls frequently 09/07/2021 Fibromyalgia Folic acid deficiency GERD (gastroesophageal reflux disease) Hypothyroidism Insomnia Intractable back pain Mild intermittent asthma without complication 10/05/2021 Osteopenia Type 2 diabetes mellitus without complication, without long-term current use of insulin ([facility]) 04/21/2021 MEDICATIONS: Current Outpatient Medications Medication Sig [...] by mouth twice daily as needed. From [facility]. lactulose 10 gram/15 mL (15 mL) soln Take 10 g by mouth daily at bedtime. [facility]. rosuvastatin (CRESTOR) 10 mg tablet Take [...] Take 1 tablet by mouth once daily. AUTO DESIGN DETAILER THYROID 60 mg tablet Take 1 tablet [...] Take 1,200 mg by mouth twice daily. Kofahbi-Xwfqbpfxdvvzf-Smhqasxt (EXCEDRIN MIGRAINE) 250-250-65 mg per tablet Take [...] sinus, tender maxillary (more content not included)... [facility] 12-26-2022 History of Present illness Narrative Patient [...] constipation and diarrhea 06/02/2022 Dr. Chantell Blas, [facility] Anticoagulant medication declined by patient Anxiety and depression At risk for stroke Atrial fibrillation ([facility]) 08/30 Cellulitis of lower extremity 2019 Chronic fatigue syndrome Dizziness, nonspecific 09/07/2021 Falls frequently 09/07/2021 Fibromyalgia Folic acid deficiency GERD (gastroesophageal reflux disease) Hypothyroidism Insomnia Intractable back pain Mild intermittent asthma without complication 10/05/2021 Osteopenia Type 2 diabetes mellitus without complication, without long-term current use of insulin ([facility]) 04/21/2021 MEDICATIONS: Current Outpatient Medications Medication Sig [...] by mouth twice daily as needed. From [facility]. lactulose 10 gram/15 mL (15 mL) soln Take 10 g by mouth daily at bedtime. [facility] rosuvastatin (CRESTOR) 10 mg tablet Take [...] Take 1 tablet by mouth once daily. AUTO DESIGN DETAILER THYROID 60 mg tablet Take 1 tablet [...] Take 1,200 mg by mouth twice daily. Btiacvf-Slcuducbnfxhu-Icowkjgj (EXCEDRIN MIGRAINE) 250-250-65 mg per tablet Take [...] Filippo Boggs MD documented in this encounter [facility] 11-08-2022 Miscellaneous Notes GUNNAR: 09/23/2022 Last [...] patient. Mahi Glynn documented in this encounter [facility] 10-10-2022 Miscellaneous Notes Last seen pcp 09/23/22. Next appt with AUTO DESIGN DETAILER 01/25/23. Patient has been identified by name [...] has been sent to her pharmacy at [phone] [facility] documented in this encounter [facility] 09-23-2022 Miscellaneous Notes Addended by: DAJUAN ROACH on: 09/23/2022 11:40 PM Modules accepted: Orders documented in this encounter [facility] 09-23-2022 Note HNO ID: [id number] Author: Dajuan Roach MD Service: ? Author Type: Physician Type: Progress Notes Filed: 09/23/2022 11:39 PM Note Text: This note was created using FightMeriter. Subjective Ember Nielsen is a 72 year old female. [...] Neuropathy, Without Long-Term Current Use of Insulin ([facility]) Lumbar Radiculopathy Cervical Radiculopathy Dizziness, Nonspecific Falls Frequently Hypothyroidism Paf (Paroxysmal Atrial Fibrillation) ([facility]) Mixed Hyperlipidemia Chronic Diastolic Chf (Congestive Heart Failure) ([facility]) Mild Intermittent Asthma Without Complication Anxiety and [...] Take 1 tablet by mouth once daily. AUTO DESIGN DETAILER THYROID 60 mg tablet Take 1 tablet [...] Take 1,200 mg by mouth twice daily. Qvflbcj-Rdjsvaoewdjij-Xskpfrpz (EXCEDRIN MIGRAINE) 250-250-65 mg per tablet Take [...] by mouth twice daily as needed. From [facility] lactulose 10 gram/15 mL (15 mL) soln Take 10 g by mouth daily at bedtime. [facility]. No current facility-administered medications for this [...] Pitting Edema present. (more content not included)... [facility] 09-23-2022 Instructions aDjuan Roach MD - 09/23/2022 11:57 AM EDT [...] blood work today. documented in this encounter [facility] 09-23-2022 History of Present illness Narrative This note was created using Moncaiter. Subjective Ember Nielsen is a 72 year old female. [...] Falls Frequently Hypothyroidism Paf (Paroxysmal Atrial Fibrillation) ([facility]) Mixed Hyperlipidemia Chronic Diastolic Chf (Congestive Heart Failure) ([facility]) Mild Intermittent Asthma Without Complication Anxiety and [...] Take 1 tablet by mouth once daily. AUTO DESIGN DETAILER THYROID 60 mg tablet Take 1 tablet [...] Take 1,200 mg by mouth twice daily. Igniqdr-Cqrwboplobbbe-Xgbiwqgp (EXCEDRIN MIGRAINE) 250-250-65 mg per tablet Take [...] by mouth twice daily as needed. From [facility] lactulose 10 gram/15 mL (15 mL) soln Take 10 g by mouth daily at bedtime. [facility]. No current facility-administered medications for this [...] Dajuan Roach MD documented in this encounter [facility] 09-05-2022 Miscellaneous Notes Last office visit: 05/25/22 Next appointment scheduled: 09/23/22 Last labs: 11/17/21 last lipid panel Patient has been identified by name and date of : Yes Requested Prescriptions Pending Prescriptions Disp Refills rosuvastatin (CRESTOR) 10 mg tablet 90 tablet 3 Sig: Take 1 tablet by mouth daily at bedtime. RX INSTRUCTIONS: Please send to [facility] Patient aware RX will be sent to pharmacy. No need to notify patient. Mahi Glynn documented in this encounter [facility] 07-18-2022 Miscellaneous Notes Refilled in another [...] for her again. Please send to the [facility] in [place]. documented in this encounter [facility] 07-18-2022 Note HNO ID: [id number] Author: Taylor Alfonso APRN.CNP Service: ? Author Type: Nurse Practitioner Type: Progress Notes Filed: 07/18/2022 12:06 PM Note Text: Chief Complaint Patient presents with: Established Patient Follow-Up History of Present Illness: Ember Nielsen is a pleasant 72 year old [...] recent ischemic evaluation via stress testing at [facility]. Results were requested for our records and [...] complication, without long-term current use of insulin ([facility]) 04/21/2021 PAST SURGICAL HISTORY Procedure Laterality Date [...] Current Outpatient Medications Medication Sig Dispense Refill AUTO DESIGN DETAILER THYROID 60 mg tablet Take 1 tablet [...] Take 1,200 mg by mouth twice daily. Iieodfx-Gzdzqclosxnkl-Osxofydh (EXCEDRIN MIGRAINE (more content not included)... [facility] 07-14-2022 Miscellaneous Notes Patient has been identified by name and date of : Yes, Patient phones for refill(s): Requested Prescriptions Pending Prescriptions Disp Refills AUTO DESIGN DETAILER THYROID 60 mg tablet 90 tablet 1 [...] Yes Requested Prescriptions Pending Prescriptions Disp Refills AUTO DESIGN DETAILER THYROID 60 mg tablet 90 tablet 1 Sig: Take 1 tablet by mouth once daily. RX INSTRUCTIONS: Patient aware RX will be sent to pharmacy. No need to notify patient. Adrianne Werner Pss documented in this encounter [facility] 07-04-2022 Miscellaneous Notes GUNNAR: 05/25/2022 Last [...] Camille Cao Pss documented in this encounter [facility] 05-25-2022 Instructions Dajuan Roach MD - 05/25/2022 11:44 AM EST BLOOD WORK TODAY. SEE JACK[facility] E[facility]. documented in this encounter [facility] 05-25-2022 History of Present illness Narrative This note was created using FightMeriter. Subjective Ember Nielsen is a 72 year old female. [...] Falls Frequently Hypothyroidism Paf (Paroxysmal Atrial Fibrillation) ([facility]) Mixed Hyperlipidemia Chronic Diastolic Chf (Congestive Heart Failure) ([facility]) Mild Intermittent Asthma Without Complication Anxiety and [...] the tongue every 5 minutes as needed. AUTO DESIGN DETAILER THYROID 60 mg Take 1 tablet by [...] Take 1,200 mg by mouth twice daily. Rlcmtqf-Wxinbtqjgghqc-Folqzzuc (EXCEDRIN MIGRAINE) 250-250-65 mg per tablet Take [...] Dajuan Roach MD documented in this encounter [facility] 05-13-2022 Miscellaneous Notes GUNNAR: 04/06/2022 Last refill: 10/05/2021 QTY: 30 Refills: 5 Patient's request for medication is as follows: Requested Prescriptions Pending Prescriptions Disp Refills montelukast (SINGULAIR) 10 mg tablet 30 tablet 5 Sig: Take 1 tablet by mouth daily at bedtime. Please approve the above prescription(s) to electronically send to pharmacy. Clive Johnson Ma documented in this encounter [facility] 04-06-2022 History of Present illness Narrative This note was created using [employer] ([employer]). Subjective Ember Nielsen is a 71 year old female. She was monitoring her glucose which was more or less stable. She stopped Jardiance due to cost. She was taking Verapamil SR 120 mg one and one half tablet daily reportedly per cardiology CONTROL MANAGER. Her hypertension was controlled. Her asthma was [...] Neuropathy, Without Long-Term Current Use of Insulin ([facility]) Lumbar Radiculopathy Cervical Radiculopathy Dizziness, Nonspecific Falls Frequently Hypothyroidism Paf (Paroxysmal Atrial Fibrillation) ([facility]) Mixed Hyperlipidemia Chronic Diastolic Chf (Congestive Heart Failure) ([facility]) Mild Intermittent Asthma Without Complication Anxiety and [...] the tongue every 5 minutes as needed. AUTO DESIGN DETAILER THYROID 60 mg Take 1 tablet by [...] Take 1,200 mg by mouth twice daily. Bwwdpde-Isfxqctsvkugn-Qzlflipi (EXCEDRIN MIGRAINE) 250-250-65 mg per tablet Take [...] neuropathy, without long-term current use of insulin ([facility]) - ICD9: 250.60, 357.2, ICD10: E11.40 (primary diagnosis) Controlled. - HEMOGLOBIN A1C (POC) - BASIC METABOLIC PNL - HGB A1C 2. PAF (paroxysmal atrial fibrillation) ([facility]) - ICD9: 427.31, ICD10: I48.0 Medication list updated as patient is taking. - VERAPAMIL ER (SR) 120 MG TABLET,EXTENDED RELEASE - CBC 3. Chronic diastolic CHF (congestive heart failure) ([facility]) - ICD9: 428.32, 428.0, ICD10: I50.32 Stable. [...] Dajuan Roach MD documented in this encounter [facility] 04-04-2022 Miscellaneous Notes Pharmacy verified in Epic Patient has been [...] Beryl Cooper Pss documented in this encounter [facility] 04-04-2022 Miscellaneous Notes Patient has been identified by name and date of : Yes Requested Prescriptions Pending Prescriptions Disp Refills tamsulosin (FLOMAX) 0.4 mg 90 capsule 3 Sig: Take 1 capsule by mouth once daily. RX INSTRUCTIONS: Patient aware RX will be sent to pharmacy. No need to notify patient. Frances Chavez Pss documented in this encounter [facility] 03-25-2022 Miscellaneous Notes Patient has been [...] advise. Beryl Aragon documented in this encounter [facility] 02-24-2022 Miscellaneous Notes Patient lost the [...] to pharmacy. No need to notify patient. Anaquasec documented in this encounter [facility] 02-24-2022 Miscellaneous Notes Patient would like Dr. Roach know she can no longer afford JARDIANCE documented in this encounter [facility] 02-17-2022 Miscellaneous Notes Patient has been [...] Bernadette Lora LPN documented in this encounter [facility] 02-17-2022 Miscellaneous Notes [facility] delivered Nitro & test strips to Patient on 01/06/2022. Patient has refills on test strips. Patient has been identified by name and date of : Yes Patient phones for refill(s): Requested Prescriptions Pending Prescriptions Disp Refills AUTO DESIGN DETAILER THYROID 60 mg 90 tablet 0 Sig: [...] Bernadette Lora LPN documented in this encounter [facility] 01-06-2022 Miscellaneous Notes Pt scheduled future appt in hopes to get moved up sooner. She said she sometimes feels as though her BP and heart rate go up and down a lot. She is fatigued a lot just getting out to an appt. She wants to be sure Taylor Alfonso was aware of how she has been feeling. documented in this encounter [facility] 01-04-2022 Instructions Kayce Jules APRN.GLO - [...] this for you. documented in this encounter [facility] 01-04-2022 History of Present illness Narrative CC: Patient presents with: Recheck: routine follow up HPI Ember Nielsen is a 71 year old female [...] deficit disorder) Anxiety and depression Atrial fibrillation ([facility]) 08/30 Cellulitis of lower extremity 2019 Chronic fatigue syndrome Dizziness, nonspecific 09/07/2021 Falls frequently 09/07/2021 Fibromyalgia Folic acid deficiency GERD (gastroesophageal reflux disease) Hypothyroidism Insomnia Intractable back pain Mild intermittent asthma without complication 10/05/2021 Osteopenia Type 2 diabetes mellitus without complication, without long-term current use of insulin ([facility]) 04/21/2021 PAST SURGICAL HISTORY Procedure Laterality Date [...] 1 tablet by mouth daily at bedtime. AUTO DESIGN DETAILER THYROID 60 mg Take 1 tablet by [...] Take 1,200 mg by mouth twice daily. Buuojam-Onqzctjxbsaly-Jkmfbsss (EXCEDRIN MIGRAINE) 250-250-65 mg per tablet Take [...] the short term and CKD in the intermediate frame tender. Risks: Possible side effects were discussed including fungal infection and UTI. Possible interactions: n/a. Warnings: lower limb amputations. Approved use or off label use: n/a. Options: n/a. Cost: high, may be prohibitive. Prior approval may be needed. Duration: intermediate frame tender. - Blood glucose monitoring on a once a day schedule - Follow up in 3 months as scheduled, sooner should any other issues arise. - Discussed diabetic education issues of intermediate frame tender diabetic complications, hypoglycemic symptoms, hyperglycemic symptoms, diet [...] Patient agreeable to treatment plan. Kayce Jules APRN.GLO documented in this encounter [facility] 12-28-2021 Miscellaneous Notes GUNNAR: 10/23/2021 flomax Last refill: 09/29/2021 QTY: 90 Refills: 0 aldactone Last refill: 09/29/2021 QTY: 90 Refills: 0 documented in this encounter [facility] 12-15-2021 Miscellaneous Notes Spoke with patient who informed me that she had not been experiencing rectal bleeding. I informed her that there was also a consultation to speak with a fish cleaner in her chart. The patient stated that she would prefer to speak with them instead of general surgery at this time. I informed her that [facility] no longer has gastro providers in the facility. The patient stated that she prefers to stay in [place] as she has to take public transportation. I informed her that I would send the referral over to [facility]. The patient agreed and thanked me. Referral sent to [facility] Patient is needing consult for rectal bleeding . Patient is not appropriate for open access. Please schedule office consult Asim Phan documented in this encounter [facility] 11-18-2021 Miscellaneous Notes Pt. notified of test results as per doctors interpretation. Pt having stress test on 11/24 at [facility]. Await results. Anne Jones ----- Message from Taylor Alfonso APRN.CONTROL MANAGER sent at 11/18/2021 8:03 AM EDT ----- Please call patient and notify them of results. Cholesterol with much better control LDL (bad cholesterol) 91 (previously 175). Kidney function, electrolytes and liver function are stable. Thank you! documented in this encounter [facility] 11-18-2021 Miscellaneous Notes Please call patient and notify them of results. Cholesterol with much better control LDL (bad cholesterol) 91 (previously 175). Kidney function, electrolytes and liver function are stable. Thank you! documented in this encounter [facility] 10-28-2021 Miscellaneous Notes Images from the original note were not included. Iman Mendoza APRN.CONTROL MANAGER You 42 minutes ago (12:30 PM) Patient had less that 1% burden of A. Fib on her recent monitor results. Stress Echo ordered due to ongoing shortness of breath and fatigue for further ischemic and heart failure evaluation. Thanks, Iman Mendoza APRN.CONTROL MANAGER Message text Called and gave Jaylin message, states that they will keep order as is and nurses will assess as test is done and notify of updates. Ondina Matta LPN Dana called to clarify diagnosis for stress echo. They are unable to do test with chronic a-fib but needs nuclear instead if chronic a-fib. Please advise. Ondina Matta LPN documented in this encounter [facility] 10-18-2021 Miscellaneous Notes ASSESSMENT/PLAN: 1. Screening for colon cancer - ICD9: V76.51, ICD10: Z12.11 - FECAL OCCULT BLOOD TEST Dajuan Roach MD Patient dropped off iFobt sample, order pending. Bernadette Lora LPN documented in this encounter [facility] 10-18-2021 History of Present illness Narrative This note was created using Moncaiter. Subjective Ember Nielsen is a 71 year old female. HPI Patient presents with multiple complaints. First she would like her sutures located on her right lower leg. On October she was seen at [facility] and had sutures placed. She just 1 [...] deficit disorder) Anxiety and depression Atrial fibrillation ([facility]) 08/30 Cellulitis of lower extremity 2019 Chronic fatigue syndrome Dizziness, nonspecific 09/07/2021 Falls frequently 09/07/2021 Fibromyalgia Folic acid deficiency GERD (gastroesophageal reflux disease) Hypothyroidism Insomnia Intractable back pain Mild intermittent asthma without complication 10/05/2021 Osteopenia Type 2 diabetes mellitus without complication, without long-term current use of insulin ([facility]) 04/21/2021 Current Outpatient Medications Medication Sig Dispense Refill montelukast (SINGULAIR) 10 mg tablet Take 1 tablet by mouth daily at bedtime. 30 tablet 5 AUTO DESIGN DETAILER THYROID 60 mg Take 1 tablet by [...] Take 1,200 mg by mouth twice daily. Yvyefum-Hqxlbvnhwcbqt-Dbdlsoba (EXCEDRIN MIGRAINE) 250-250-65 mg per tablet Take [...] 10 mL injection (DEFINITY) INTRAVENOUS DIRECTED PRN Taylor Alfonso APRN.CONTROL MANAGER sodium chloride 0.9 % (flush) 10 mL (BD POSIFLUSH) 10 mL INTRAVENOUS DIRECTED PRN Taylor Alfonso APRN.CONTROL MANAGER PAST SURGICAL HISTORY Procedure Laterality Date APPENDECTOMY 1973 COLONOSCOPY SCREENING 08/2020, 08/2020 EXTRACTION ERUPTED TOOTH/EXR 1973 HYSTERECTOMY HX 1989 Endometriosis. Adenomyosis. Total hysterectomy, BSO LAPAROSCOPIC CHOLECYSTECTOMY 1997 LIGATE FALLOPIAN TUBE Bilateral 1988 SHOULDER SURGERY HX Right 1984 right shoulder X 3. 1978,1980,1984 TONSILLECTOMY HX 1972 FAMILY HISTORY Problem Relation [...] Maci Alegria PA-C documented in this encounter [facility] 10-12-2021 Miscellaneous Notes Orders for Vestibular therapy Faxed to [facility] Synerscope per patient request. Patient update via [employer]. Honey Smith LPN documented in this encounter [facility] 10-07-2021 History of Present illness Narrative Images from the original note were not included. [facility] [place] New Patient visit [...] with stability. This broke when moving to [place] from [place] and no longer uses. No workup for [...] on a table. She did go to [facility] ED. Had dizziness for a few weeks [...] complication, without long-term current use of insulin ([facility]) 04/21/2021 PAST SURGICAL HISTORY Procedure Laterality Date [...] Take 1 tablet by mouth once daily. AUTO DESIGN DETAILER THYROID 60 mg Take 1 tablet by [...] Take 1,200 mg by mouth twice daily. Ahoxppu-Vfyzbsgzwogqw-Zmprtejz (EXCEDRIN MIGRAINE) 250-250-65 mg per tablet Take [...] walking on heels and toes. Labs/studies: Outpatient Lidding Machine Operator 08/17/21: Patient had a min HR of [...] Abs Lymph 1.00 - 4.00 k/uL 1.82 Dickinson% % 7.6 Abs Dickinson <0.87 k/uL 0.82 Eosin% % 0.4 Abs [...] CONSULT TO VESTIB[facility] REHAB PT Emiliana Goldman APRN.CONTROL MANAGER I spent a total of 60 minutes on the date of the service which included preparing to see the patient, gwyt-go-lnyt patient care, completing clinical documentation, obtaining and/or reviewing separately obtained history, performing a medically appropriate examination, counseling and educating the patient/family/caregiver and ordering medications, tests, or procedures. documented in this encounter [facility] 10-05-2021 History of Present illness Narrative This note was created using [employer] ([employer]). Subjective Ember Nielsen is a 71 year old female [...] Neuropathy, Without Long-Term Current Use of Insulin ([facility]) Lumbar Radiculopathy Cervical Radiculopathy Dizziness, Nonspecific Falls Frequently Hypothyroidism Paf (Paroxysmal Atrial Fibrillation) ([facility]) Mixed Hyperlipidemia Chronic Diastolic Chf (Congestive Heart Failure) ([facility]) Current Outpatient Medications Medication Sig AUTO DESIGN DETAILER THYROID 60 mg Take 1 tablet by [...] Take 1,200 mg by mouth twice daily. Quqxsop-Bklibbrculmqa-Giwcwxhx (EXCEDRIN MIGRAINE) 250-250-65 mg per tablet Take [...] - HGB A1C - ALBUMIN/CREAT RATIO RND CHERI I spent 20 mostly for discussion and care coordination. Dajuan Roach MD documented in this encounter [facility] 09-29-2021 History of Present illness Narrative Radiology Service Progress Note PATIENT NAME: Ember Nielsen DATE OF SERVICE: September 29, 2021 [...] 2021 9:51 AM documented in this encounter [facility] 09-28-2021 Miscellaneous Notes Last appt with pcp 09/07/21. Next is 10/05/21 Patient is aware that there is an active script at [facility] for her spironolactone. She has requested for them to transfer it to [facility], but they haven't. [facility] has requested from [facility] as well, but they won't reply to request. Wants a new script sent to [facility] in [place]. Patient has been identified by name and date of : Yes Pending Prescriptions Disp Refills AUTO DESIGN DETAILER THYROID 60 MG TABLET 30 tablet 0 [...] patient. Camille Avery documented in this encounter [facility] 09-27-2021 Instructions Taylor Alfonso APRN.[facility] - 09/27/2021 9:30 AM EDT Heart Disease in Women Is heart disease a problem for women? Heart disease is the leading cause of of [place] women. More women from heart disease than [...] disease. You can get more information from: [place] [facility] Nyujlqqsidi5-080-NWX-USA-1 ( )www.heart.org Developed by [employer]. Published by [employer]. Copyright 2014 [employer] and/or one of its subsidiaries. All rights reserved. documented in this encounter [facility] 09-27-2021 History of Present illness Narrative Chief Complaint Patient presents with: 6 week follow up heart monitor History of Present Illness: Ember Nielsen is a 71 year old female [...] by mouth once daily. 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 Zuobjvd-Osponfzyjygft-Yenmotrq (EXCEDRIN MIGRAINE) 250-250-65 mg per tablet Take [...] 10 mL injection (DEFINITY) INTRAVENOUS DIRECTED PRN Taylor Alfonso APRN.GLO sodium chloride 0.9 % (flush) 10 mL (BD POSIFLUSH) 10 mL INTRAVENOUS DIRECTED PRN Taylor Alfonso, JOURDAN.CONTROL MANAGER Review of Systems Constitutional: Positive for malaise/fatigue. [...] BNP 152 -obtain recent echocardiogram records from [facility] -lasix 40 mg, aldactone 25 mg [...] decision making from today. Electronically signed by Taylor Alfonso APRN.CNP on September 27, 2021, 9:09 AM documented in this encounter [facility] 09-22-2021 Miscellaneous Notes Patient has been [...] Bernadette Lora LPN documented in this encounter [facility] 09-21-2021 History of Present illness Narrative 1. Type 2 diabetes mellitus without retinopathy (HCC) Risk of diabetic changes and vision loss can be minimized by tight control of blood sugar, blood pressure, and cholesterol levels. Educated patient to continue care with primary care doctor and/or canteen attendant to maintain optimum levels as they are [...] 2021 10:49 AM documented in this encounter [facility] 09-21-2021 Instructions Theodora Rey, OD - 09/21/2021 10:41 AM EDT Use Ocusoft or Systane lid wipes 1-2x daily -OR can use Ocusoft or alternative hypochlorous spray Use Systane or Refresh gel 2-3x daily in both eyes documented in this encounter [facility] 09-09-2021 Miscellaneous Notes [facility] pharmacy called back in and notified of Taylor's response. Pharmacist voiced understanding and will prepare script. Taylor Del Real LPN Images from the original note were not included. Taylor Alfonso APRN.CONTROL MANAGER Camille Faye RN 18 hours ago (2:43 PM) JN [place] thank you for the notification. She is on a lower dose of atorvastatin so we will continue with medication therapy Message text Received a call from pharmacist at [facility] sent to pharmacy today. Pharmacist indicates there is a drug interaction between atorvastatin and verapamil. Verapamil will increase the effects of atorvastatin. Camille Faye RN documented in this encounter [facility] 09-07-2021 History of Present illness Narrative This note was created using [employer]. Subjective Patient presents with: Establish Care: moved back from [place] last year Ember Nielsen was here to establish formally. 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 She moved here from [place] last March. Her records from [place] were requested previously but I did not [...] deficit disorder) Anxiety and depression Atrial fibrillation ([facility]) 08/30 Cellulitis of lower extremity 2019 Chronic fatigue syndrome Dizziness, nonspecific 09/07/2021 Falls frequently 09/07/2021 Fibromyalgia Folic acid deficiency GERD (gastroesophageal reflux disease) Hypothyroidism Insomnia Intractable back pain Osteopenia Type 2 diabetes mellitus without complication, without long-term current use of insulin ([facility]) 04/21/2021 PAST SURGICAL HISTORY Procedure Laterality Date [...] Take 1 tablet by mouth once daily. AUTO DESIGN DETAILER THYROID 60 mg Take 1 tablet by [...] Take 1,200 mg by mouth twice daily. Icmshjv-Dmbklvcyfsrhi-Roxafywg (EXCEDRIN MIGRAINE) 250-250-65 mg per tablet Take [...] neuropathy, without long-term current use of insulin ([facility]) - ICD9: 250.60, 357.2, ICD10: E11.40 The patient is new to me. - CONSULT TO OPHTHALMOLOGY 7. Encounter for screening mammogram for malignant neoplasm of breast - ICD9: V76.12, ICD10: Z12.31 - [facility] SCREENING Dajuan Roach MD documented in this encounter [facility]* Diagnosis Type 2 diabetes mellitus without retinopathy (HCC)- Primary Type II or unspecified type diabetes mellitus without mention of complication, not stated as uncontrolled Squamous blepharitis of upper and lower eyelids of both eyes Punctate keratitis, bilateral Combined forms of age-related cataract of both eyes Other and combined forms of senile cataract [facility] Diagnosis Mixed hyperlipidemia- Primary PAF (paroxysmal atrial fibrillation) ([facility]) Atrial fibrillation Leg swelling Swelling of limb Chronic diastolic CHF (congestive heart failure) (HCC) Chronic diastolic heart failure Type 2 diabetes mellitus with diabetic neuropathy, without long-term current use of insulin ([facility]) [facility] Diagnosis Hypothyroidism, acquired Unspecified hypothyroidism [facility]* Diagnosis Encounter for screening mammogram for malignant neoplasm of breast Other screening mammogram [facility] Diagnosis Encounter for hepatitis C screening test for low risk patient- Primary Mild intermittent asthma without complication Unspecified asthma Type 2 diabetes mellitus with diabetic neuropathy, without long-term current use of insulin (HCC) [facility] Diagnosis Vertigo- Primary Dizziness and giddiness Transient cerebral ischemia, unspecified type DDD (degenerative disc disease), cervical Degeneration of cervical intervertebral disc Dizziness Dizziness and giddiness [facility] Diagnosis Pelvic cramping- Primary Unspecified symptom associated with female genital organs Hand injury, left, initial encounter Visit for wound check Encounter for other specified aftercare [facility] Diagnosis Screening for colon cancer- Primary Special screening for malignant neoplasms, colon [facility] Diagnosis Mixed hyperlipidemia Type 2 diabetes mellitus with diabetic neuropathy, without long-term current use of insulin (HCC) Encounter for hepatitis C screening test for low risk patient Combined forms of age-related cataract of both eyes Other and combined forms of senile cataract [facility] Diagnosis Type 2 diabetes mellitus with diabetic neuropathy, without long-term current use of insulin (HCC)- Primary Screening for osteoporosis Special screening for osteoporosis Asymptomatic menopause [facility] Diagnosis Hypothyroidism, acquired Unspecified hypothyroidism [facility] Diagnosis Hypothyroidism, acquired Unspecified hypothyroidism [facility] Diagnosis Cervical radiculopathy Brachial neuritis or radiculitis nos Lumbar radiculopathy Thoracic or lumbosacral neuritis or radiculitis, unspecified [facility] Diagnosis Type 2 diabetes mellitus with diabetic neuropathy, without long-term current use of insulin (HCC)- Primary PAF (paroxysmal atrial fibrillation) (HCC) Atrial fibrillation Chronic diastolic CHF (congestive heart failure) (HCC) Chronic diastolic heart failure Mild intermittent asthma without complication Unspecified asthma Need for influenza vaccination Need for prophylactic vaccination and inoculation against influenza Need for vaccination Need for prophylactic vaccination and inoculation against unspecified single disease Hypothyroidism, unspecified type Anxiety and depression Dysthymic disorder [facility] Diagnosis Mild intermittent asthma without complication Unspecified asthma [facility]* Diagnosis Epistaxis- Primary Cervical radiculopathy Brachial neuritis or radiculitis nos Lumbar radiculopathy Thoracic or lumbosacral neuritis or radiculitis, unspecified Acute nonintractable headache, unspecified headache type PAF (paroxysmal atrial fibrillation) ([facility]) Atrial fibrillation [facility]* Diagnosis Cervical radiculopathy Brachial neuritis or radiculitis nos Lumbar radiculopathy Thoracic or lumbosacral neuritis or radiculitis, unspecified [facility]* Diagnosis Hypothyroidism, acquired Unspecified hypothyroidism [facility]* Diagnosis Dizziness, nonspecific- Primary Dizziness and giddiness Anxiety and depression Dysthymic disorder Type 2 diabetes mellitus with diabetic neuropathy, without long-term current use of insulin (HCC) Hypothyroidism, unspecified type Encounter for screening mammogram for malignant neoplasm of breast Other screening mammogram Encounter for screening for osteoporosis Special screening for osteoporosis Asymptomatic postmenopausal status Alternating constipation and diarrhea Other symptoms involving digestive system documented [facility]* Diagnosis Cervical radiculopathy Brachial neuritis or radiculitis nos Lumbar radiculopathy Thoracic or lumbosacral neuritis or radiculitis, unspecified PAF (paroxysmal atrial fibrillation) (HCC) Atrial fibrillation documented in this encounter [facility] note* Diagnosis Mild intermittent asthma without complication Unspecified asthma [facility]* Diagnosis Acute non-recurrent sinusitis, unspecified location- Primary documented [facility]* Diagnosis Cervical radiculopathy Brachial neuritis or radiculitis nos Lumbar radiculopathy Thoracic or lumbosacral neuritis or radiculitis, unspecified documented [facility]* Diagnosis Medicare annual wellness visit, subsequent- Primary Routine general medical examination at a health care facility Lump of axilla, right Type 2 diabetes mellitus with diabetic neuropathy, without long-term current use of insulin (HCC) Mixed hyperlipidemia Colon cancer screening Special screening for malignant neoplasms, colon Hypothyroidism, unspecified type Abnormal breast finding Other abnormal clinical finding [facility]* Diagnosis Skin infection- Primary Unspecified local infection of skin and subcutaneous tissue Abrasion Abrasion or friction burn of other, multiple, and unspecified sites, without mention of infection documented [facility]* Diagnosis Screening mammogram for breast cancer- Primary documented in this encounter [facility] note* Diagnosis PAF (paroxysmal atrial fibrillation) (HCC) Atrial fibrillation documented in this encounter [facility] note* Diagnosis Mild intermittent asthma without complication Unspecified asthma documented in this encounter [facility] for referral (narrative)* Diagnostic Procedure Only (Routine) - Closed Specialty Diagnoses / Procedures Referred By Contac t Referred To Contact [facility] IM[facility] Diagnoses Encounter for screening mammogram for malignant neoplasm of breast Procedures GERA SCREENING SCREENING MAMMOGRAPHY BI 2-VIEW BREAST INC CAD Dajuan Roach MD [address] [place] [address] [facility] [address] [place] [address] Referral ID Status Reason Start Date Expiration Date V isits Requested Visits Authorized [id number] Closed Auto-Generate d Referral 09/07/2021 10/07/2022 1 1 [facility] for referral (narrative)* Diagnostic Procedure Only (Routine) - Closed Specialty Diagnoses / Procedures Referred By Contac t Referred To Contact XR IMAGING Diagnoses Vertigo DDD (degenerative disc disease), cervical Procedures XR CERV OTHER 4V AP/LAT/OBL RADEX SPINE CERVICAL 4 OR 5 VIEWS Emiliana Goldman APRN.CONTROL MANAGER [address] [place] [address] Xr Imaging Referral ID Status Reason Start Date Expiration Date V isits Requested Visits Authorized [id number] Closed Auto-Generate d Referral 10/07/2021 11/06/2022 1 1 * MRI/CT (Routine) - Authorized Specialty Diagnoses / Procedures Referred By Contac t Referred To Contact MR IMAGING Diagnoses Transient cerebral ischemia, unspecified type Procedures MRI BRAIN WO/W IVCON MRI BRAIN BRAIN STEM W/O W/CONTRAST MATERIAL Emiliana Goldman APRN.CONTROL MANAGER [address] [place] [address] Mr Imaging Referral ID Status Reason Start Date Expiration Date Visits Requested Visits Authorized [id number] Authorized Auto-Generat ed Referral 10/07/2021 11/06/2022 1 1 [facility] for referral (narrative)* Diagnostic Procedure Only (Urgent) - Closed Specialty Diagnoses / Procedures Referred By Contac t Referred To Contact XR IMAGING Diagnoses Hand injury, left, initial encounter Procedures XR HAND GENERAL 3V PA/LAT/OBL LEFT RADEX HAND MINIMUM 3 VIEWS Maci Alegria PA-C [address] [place] [address] Xr Imaging Referral ID Status Reason Start Date Expiration Date V isits Requested Visits Authorized [id number] Closed Auto-Generate d Referral 10/18/2021 11/17/2022 1 1 [facility] for referral (narrative)* Outpatient Procedure (Routine) - Pending Review Specialty Diagnoses / Procedures Referred By Contac t Referred To Contact [facility] Diagnoses Mild intermittent asthma without complication Procedures LUNG VOLUMES Dajuan Roach MD [address] [place] [address] [facility] [place] [address] [place] [address] Referral ID Status Reason Start Date Expiration Date Visits Requested Visits Authorized [id number] Pending Review Auto-Generat ed Referral 05/06/2023 1 1 * Outpatient Procedure (Routine) - Pending Review Specialty Diagnoses / Procedures Referred By Contac t Referred To [facility] Diagnoses Mild intermittent asthma without complication Procedures SPIROMETRY - BASELINE AND POST DILATOR BRNCDILAT RSPSE SPMTRY PRE&POST-BRNCDILAT ADMN Dajuan Roach MD [address] [place] [address] [facility] [place] [address] [place] [address] Referral ID Status Reason Start Date Expiration Date Visits Requested Visits Authorized [id number] Pending Review Auto-Generat ed Referral 05/06/2023 1 1 [facility] for referral (narrative)* Diagnostic Procedure Only (Routine) - Pending Review Specialty Diagnoses / Procedures Referred By Lionel t Referred To Contact BR IMAGING Diagnoses Encounter for screening mammogram for malignant neoplasm of breast Procedures GERA SCREENING SCREENING MAMMOGRAPHY BI 2-VIEW BREAST INC CAD Dajuan Roach MD [address] [place] [address] [facility] [address] [place] [address] Referral ID Status Reason Start Date Expiration Date Visits Requested Visits Authorized [id number] Pending Review Auto-Generat ed Referral 09/23/2022 10/23/2023 1 1 [facility] for referral (narrative)* Diagnostic Procedure Only (Routine) - Pending Review Specialty Diagnoses / Procedures Referred By Lionel donovan Referred To Contact [facility] IMAG[facility] Diagnoses Lump of axilla, right Abnormal breast finding Procedures US BREAST LTD RIGHT US BREAST UNI REAL TIME WITH IMAGE LIMITED Kayce Jules APRN.CNP [address] [place] [address] [facility] [address] [place] [address] Referral ID Status Reason Start Date Expiration Date Visits Requested Visits Authorized [id number] Pending Review Auto-Generat ed Referral 01/24/2023 02/23/2024 1 1 * Diagnostic Procedure Only (Routine) - Pending Review Specialty Diagnoses / Procedures Referred By Lionel t Referred To Contact [facility] IMAG[facility] Diagnoses Lump of axilla, right Abnormal breast finding Procedures GERA DIAGNOSTIC BILATERAL DIAGNOSTIC MAMMOGRAPHY COMPUTER-AIDED DETCJ BI Kayce Jules, SPEECH ASSISTANT.CONTROL MANAGER [address] [place] [address] [facility] [address] [place] [address] Referral ID Status Reason Start Date Expiration Date Visits Requested Visits Authorized [id number] Pending Review Auto-Generat ed Referral 01/24/2023 02/23/2024 1 1 [facility] for referral (narrative)* Diagnostic Procedure Only (Routine) - Pending Review Specialty Diagnoses / Procedures Referred By Lionel donovan Referred To Contact [facility] Diagnoses Screening mammogram for breast cancer Procedures GERA SCREENING W MICKY SCREENING DIGITAL BREAST TOMOSYNTHESIS BI SCREENING MAMMOGRAPHY BI 2-VIEW BREAST INC CAD Kayce Jules APRN.CNP [address] [place] [address] [facility] [address] [place] [address] Referral ID Status Reason Start Date Expiration Date Visits Requested Visits Authorized [id number] Pending Review Auto-Generat ed Referral 3 04/29/2024 1 1 [facility] for visit Narrative* Diagnostic Procedure Only (Routine) - Closed Specialty Diagnoses / Procedures Referred By Lionel donovan Referred To Contact [facility] IMAGING Diagnoses Encounter for screening mammogram for malignant neoplasm of breast Procedures GERA SCREENING SCREENING MAMMOGRAPHY BI 2-VIEW BREAST INC CAD Dajuan Roach MD [address] [place] [address] [facility] [address] [place] [place] [address] Referral ID Status Reason Start Date Expiration Date V isits Requested Visits Authorized [id number] Closed Auto-Generate d Referral 09/07/2021 10/07/2022 1 1 [facility] Reason for Referral Specialty Diagnoses / Procedures Referred By Lionel donovan Referred To Contact Ophthalmology Diagnoses Type 2 diabetes mellitus with diabetic neuropathy, without long-term current use of insulin (HCC) Procedures CONSULT TO OPHTHALMOLOGY OFFICE/OUTPATIENT [facility] MDM 60-74 MINUTES Dajuan Roach MD [address] [place] [address] Referral ID Status Reason Start Date Expiration Date Visits Requested Visits Authorized [id number] Authorized PCP Requested Referral 09/07/2021 09/07/2022 1 1 Specialty Diagnoses / Procedures Referred By Lionel donovan Referred To Contact [facility] Diagnoses Encounter for screening mammogram for malignant neoplasm of breast Procedures GERA SCREENING SCREENING MAMMOGRAPHY BI 2-VIEW BREAST INC CAD Dajuan Roach MD [address] [place] [address] [facility] [address] [place] [address] Referral ID Status Reason Start Date Expiration Date Visits Requested Visits Authorized [id number] Pending Review Auto-Generat ed Referral 09/07/2021 10/07/2022 1 1 Specialty Diagnoses / Procedures Referred By Lionel donovan Referred To Contact Ent - Otolaryngology Diagnoses Epistaxis Procedures CONSULT TO ENT Dajuan Roach MD [address] [place] [address] Referral ID Status Reason Start Date Expiration Date Visits Requested Visits Authorized [id number] Ref Not Required PCP Requested Referral 2 [...] the event of a Fluress shortage, administer Williams-Fluor 1 drop into both eyes as directed [...] or prosecute any alcohol or drug abuse patient.[facility] the event this information is protected by the Federal Confidentiality of Alcohol and Drug Abuse Patient Records regulations: The Federal rules restrict any use of the information to criminally investigate or prosecute any alcohol or drug abuse patient.[facility] HospitalIn the event this information is protected by the Federal Confidentiality of Alcohol and Drug Abuse Patient Records regulations: The Federal rules restrict any use of the information to criminally investigate or prosecute any alcohol or drug abuse patient.[facility]In the event this information is protected by the Federal Confidentiality of Alcohol and Drug Abuse Patient Records regulations: The Federal rules restrict any use of the information to criminally investigate or prosecute any alcohol or drug abuse patient.[facility] HospitalIn the event this information is protected by the Federal Confidentiality of Alcohol and Drug Abuse Patient Records regulations: The Federal rules restrict any use of the information to criminally investigate or prosecute any alcohol or drug abuse patient.[facility] HospitalIn the event this information is protected by the Federal Confidentiality of Alcohol and Drug Abuse Patient Records regulations: The Federal rules restrict any use of the information to criminally investigate or prosecute any alcohol or drug abuse patient.[facility] HospitalIn the event this information is protected by the Federal Confidentiality of Alcohol and Drug Abuse Patient Records regulations: The Federal rules restrict any use of the information to criminally investigate or prosecute any alcohol or drug abuse patient.[facility] HospitalIn the event this information is protected by the Federal Confidentiality of Alcohol and Drug Abuse Patient Records regulations: The Federal rules restrict any use of the information to criminally investigate or prosecute any alcohol or drug abuse patient.[facility] HospitalIn the event this information is protected by the Federal Confidentiality of Alcohol and Drug Abuse Patient Records regulations: The Federal rules restrict any use of the information to criminally investigate or prosecute any alcohol or drug abuse patient.[facility] HospitalIn the event this information is protected by the Federal Confidentiality of Alcohol and Drug Abuse Patient Records regulations: The Federal rules restrict any use of the information to criminally investigate or prosecute any alcohol or drug abuse patient.[facility] HospitalIn the event this information is protected by the Federal Confidentiality of Alcohol and Drug Abuse Patient Records regulations: The Federal rules restrict any use of the information to criminally investigate or prosecute any alcohol or drug abuse patient.[facility] HospitalIn the event this information is protected by the Federal Confidentiality of Alcohol and Drug Abuse Patient Records regulations: The Federal rules restrict any use of the information to criminally investigate or prosecute any alcohol or drug abuse patient.[facility] HospitalIn the event this information is protected by the Federal Confidentiality of Alcohol and Drug Abuse Patient Records regulations: The Federal rules restrict any use of the information to criminally investigate or prosecute any alcohol or drug abuse patient.[facility] HospitalIn the event this information is protected by the Federal Confidentiality of Alcohol and Drug Abuse Patient Records regulations: The Federal rules restrict any use of the information to criminally investigate or prosecute any alcohol or drug abuse patient.[facility] HospitalIn the event this information is protected by the Federal Confidentiality of Alcohol and Drug Abuse Patient Records regulations: The Federal rules restrict any use of the information to criminally investigate or prosecute any alcohol or drug abuse patient.[facility] HospitalIn the event this information is protected by the Federal Confidentiality of Alcohol and Drug Abuse Patient Records regulations: The Federal rules restrict any use of the information to criminally investigate or prosecute any alcohol or drug abuse patient.[facility] HospitalIn the event this information is protected by the Federal Confidentiality of Alcohol and Drug Abuse Patient Records regulations: The Federal rules restrict any use of the information to criminally investigate or prosecute any alcohol or drug abuse patient.[facility] HospitalIn the event this information is protected by the Federal Confidentiality of Alcohol and Drug Abuse Patient Records regulations: The Federal rules restrict any use of the information to criminally investigate or prosecute any alcohol or drug abuse patient.[facility] HospitalIn the event this information is protected by the Federal Confidentiality of Alcohol and Drug Abuse Patient Records regulations: The Federal rules restrict any use of the information to criminally investigate or prosecute any alcohol or drug abuse patient.[facility] HospitalIn the event this information is protected by the Federal Confidentiality of Alcohol and Drug Abuse Patient Records regulations: The Federal rules restrict any use of the information to criminally investigate or prosecute any alcohol or drug abuse patient.[facility] HospitalIn the event this information is protected by the Federal Confidentiality of Alcohol and Drug Abuse Patient Records regulations: The Federal rules restrict any use of the information to criminally investigate or prosecute any alcohol or drug abuse patient.[facility] HospitalIn the event this information is protected by the Federal Confidentiality of Alcohol and Drug Abuse Patient Records regulations: The Federal rules restrict any use of the information to criminally investigate or prosecute any alcohol or drug abuse patient.[facility] HospitalIn the event this information is protected by the Federal Confidentiality of Alcohol and Drug Abuse Patient Records regulations: The Federal rules restrict any use of the information to criminally investigate or prosecute any alcohol or drug abuse patient.[facility] HospitalIn the event this information is protected by the Federal Confidentiality of Alcohol and Drug Abuse Patient Records regulations: The Federal rules restrict any use of the information to criminally investigate or prosecute any alcohol or drug abuse patient.[facility] HospitalIn the event this information is protected by the Federal Confidentiality of Alcohol and Drug Abuse Patient Records regulations: The Federal rules restrict any use of the information to criminally investigate or prosecute any alcohol or drug abuse patient.[facility] HospitalIn the event this information is protected by the Federal Confidentiality of Alcohol and Drug Abuse Patient Records regulations: The Federal rules restrict any use of the information to criminally investigate or prosecute any alcohol or drug abuse patient.[facility] HospitalIn the event this information is protected by the Federal Confidentiality of Alcohol and Drug Abuse Patient Records regulations: The Federal rules restrict any use of the information to criminally investigate or prosecute any alcohol or drug abuse patient.[facility] HospitalIn the event this information is protected by the Federal Confidentiality of Alcohol and Drug Abuse Patient Records regulations: The Federal rules restrict any use of the information to criminally investigate or prosecute any alcohol or drug abuse patient.[facility] HospitalIn the event this information is protected by the Federal Confidentiality of Alcohol and Drug Abuse Patient Records regulations: The Federal rules restrict any use of the information to criminally investigate or prosecute any alcohol or drug abuse patient.[facility] HospitalIn the event this information is protected by the Federal Confidentiality of Alcohol and Drug Abuse Patient Records regulations: The Federal rules restrict any use of the information to criminally investigate or prosecute any alcohol or drug abuse patient.[facility] HospitalIn the event this information is protected by the Federal Confidentiality of Alcohol and Drug Abuse Patient Records regulations: The Federal rules restrict any use of the information to criminally investigate or prosecute any alcohol or drug abuse patient.[facility] HospitalIn the event this information is protected by the Federal Confidentiality of Alcohol and Drug Abuse Patient Records regulations: The Federal rules restrict any use of the information to criminally investigate or prosecute any alcohol or drug abuse patient.[facility] HospitalIn the event this information is protected by the Federal Confidentiality of Alcohol and Drug Abuse Patient Records regulations: The Federal rules restrict any use of the information to criminally investigate or prosecute any alcohol or drug abuse patient.[facility] HospitalIn the event this information is protected by the Federal Confidentiality of Alcohol and Drug Abuse Patient Records regulations: The Federal rules restrict any use of the information to criminally investigate or prosecute any alcohol or drug abuse patient.[facility] HospitalIn the event this information is protected by the Federal Confidentiality of Alcohol and Drug Abuse Patient Records regulations: The Federal rules restrict any use of the information to criminally investigate or prosecute any alcohol or drug abuse patient.[facility] HospitalIn the event this information is protected by the Federal Confidentiality of Alcohol and Drug Abuse Patient Records regulations: The Federal rules restrict any use of the information to criminally investigate or prosecute any alcohol or drug abuse patient.[facility] HospitalIn the event this information is protected by the Federal Confidentiality of Alcohol and Drug Abuse Patient Records regulations: The Federal rules restrict any use of the information to criminally investigate or prosecute any alcohol or drug abuse patient.[facility] HospitalIn the event this information is protected by the Federal Confidentiality of Alcohol and Drug Abuse Patient Records regulations: The Federal rules restrict any use of the information to criminally investigate or prosecute any alcohol or drug abuse patient.[facility] HospitalIn the event this information is protected by the Federal Confidentiality of Alcohol and Drug Abuse Patient Records regulations: The Federal rules restrict any use of the information to criminally investigate or prosecute any alcohol or drug abuse patient.[facility] HospitalIn the event this information is protected by the Federal Confidentiality of Alcohol and Drug Abuse Patient Records regulations: The Federal rules restrict any use of the information to criminally investigate or prosecute any alcohol or drug abuse patient.[facility] HospitalIn the event this information is protected by the Federal Confidentiality of Alcohol and Drug Abuse Patient Records regulations: The Federal rules restrict any use of the information to criminally investigate or prosecute any alcohol or drug abuse patient.[facility] HospitalIn the event this information is protected by the Federal Confidentiality of Alcohol and Drug Abuse Patient Records regulations: The Federal rules restrict any use of the information to criminally investigate or prosecute any alcohol or drug abuse patient.[facility] HospitalIn the event this information is protected by the Federal Confidentiality of Alcohol and Drug Abuse Patient Records regulations: The Federal rules restrict any use of the information to criminally investigate or prosecute any alcohol or drug abuse patient.[facility] HospitalIn the event this information is protected by the Federal Confidentiality of Alcohol and Drug Abuse Patient Records regulations: The Federal rules restrict any use of the information to criminally investigate or prosecute any alcohol or drug abuse patient.[facility] HospitalIn the event this information is protected by the Federal Confidentiality of Alcohol and Drug Abuse Patient Records regulations: The Federal rules restrict any use of the information to criminally investigate or prosecute any alcohol or drug abuse patient.[facility] HospitalIn the event this information is protected by the Federal Confidentiality of Alcohol and Drug Abuse Patient Records regulations: The Federal rules restrict any use of the information to criminally investigate or prosecute any alcohol or drug abuse patient.[facility] HospitalIn the event this information is protected by the Federal Confidentiality of Alcohol and Drug Abuse Patient Records regulations: The Federal rules restrict any use of the information to criminally investigate or prosecute any alcohol or drug abuse patient.[facility] HospitalIn the event this information is protected by the Federal Confidentiality of Alcohol and Drug Abuse Patient Records regulations: The Federal rules restrict any use of the information to criminally investigate or prosecute any alcohol or drug abuse patient.[facility] HospitalIn the event this information is protected by the Federal Confidentiality of Alcohol and Drug Abuse Patient Records regulations: The Federal rules restrict any use of the information to criminally investigate or prosecute any alcohol or drug abuse patient.[facility] HospitalIn the event this information is protected by the Federal Confidentiality of Alcohol and Drug Abuse Patient Records regulations: The Federal rules restrict any use of the information to criminally investigate or prosecute any alcohol or drug abuse patient.[facility] HospitalIn the event this information is protected by the Federal Confidentiality of Alcohol and Drug Abuse Patient Records regulations: The Federal rules restrict any use of the information to criminally investigate or prosecute any alcohol or drug abuse patient.[facility] HospitalIn the event this information is protected by the Federal Confidentiality of Alcohol and Drug Abuse Patient Records regulations: The Federal rules restrict any use of the information to criminally investigate or prosecute any alcohol or drug abuse patient.[facility] HospitalIn the event this information is protected by the Federal Confidentiality of Alcohol and Drug Abuse Patient Records regulations: The Federal rules restrict any use of the information to criminally investigate or prosecute any alcohol or drug abuse patient.[facility] HospitalIn the event this information is protected by the Federal Confidentiality of Alcohol and Drug Abuse Patient Records regulations: The Federal rules restrict any use of the information to criminally investigate or prosecute any alcohol or drug abuse patient.[facility] Reason for Visit (unrecogniz ed section and content) Reason Comments Medication Problem Reason Comments Diabetes Specialty Diagnoses / Procedures Referred By Lionel donovan Referred To Contact Ophthalmology Diagnoses Type 2 diabetes mellitus with diabetic neuropathy, without long-term current use of insulin (HCC) Procedures CONSULT TO OPHTHALMOLOGY OFFICE/OUTPATIENT NEW HIGH MDM 60-74 MINUTES Dajuan Roach MD [address] [place] [address] Referral ID Status Reason Start Date Expiration Date V isits Requested Visits Authorized [id number] Closed PCP Requested Referral 09/07/2021 09/07/2022 1 1 Reason Comments Prescription Refills Reason Comments 6 week follow up heart monitor Reason Onset Date Comments Opened In Error 09/28/2021 Reason Onset Date Comments Refill Request 09/28/2021 Reason Comments F/U 1 month Reason Comments New Neur MD Patient Consult for dizzines s Reason Comments Vestibular therapy Reason Comments UTI painful and frequent urination x 1 week Acute Visit left hand middle fin elida injury x 10 days Acute Visit check stitches on ri ght lower leg Reason Comments Lab Orders Reason Comments Ccnp - Other Reason Comments Results Reason Comments [...] Reason Onset Date Comments Refill Request 05/08/2023 Reason Onset Date Comments Refill Request 07/28/2023 Care Teams (unrecognized sec tion and content) Drupal Php Developer Relationship Specialty Start Date End Date Dajuan Roach MD [address] [place] [address] PCP - General Internal Medicine 09/07/21 Drupal Php Developer Relationship Specialty Start Date End Date Dajuan Roach MD [address] [place] [address] PCP - General Internal Medicine 09/07/21 Drupal Php Developer Relationship Specialty Start Date End Date Dajuan Roach MD [address] [place] [address] PCP - General Internal Medicine 09/07/21 Drupal Php Developer Relationship Specialty Start Date End Date Dajuan Roach MD [address] [place] [address] PCP - General Internal Medicine 09/07/21 Drupal Php Developer Relationship Specialty Start Date End Date Dajuan Roach MD [address] [place] [address] PCP - General Internal Medicine 09/07/21 Drupal Php Developer Relationship Specialty Start Date End Date Dajuan Roach MD [address] [facility] [place] [address] PCP - General Internal Medicine 09/07/21 Drupal Php Developer Relationship Specialty Start Date End Date Dajuan Roach MD [address] [facility] [place] [address] PCP - General Internal Medicine 09/07/21 Drupal Php Developer Relationship Specialty Start Date End Date Dajuan Roach MD [address] [facility] [place] [address] PCP - General Internal Medicine 09/07/21 Drupal Php Developer Relationship Specialty Start Date End Date Dajuan Roach MD [address] [facility] [place] [address] PCP - General Internal Medicine 09/07/21 Drupal Php Developer Relationship Specialty Start Date End Date Dajuan Roach MD [address] [facility] [place] [address] PCP - General Internal Medicine 09/07/21 Drupal Php Developer Relationship Specialty Start Date End Date Dajuan Roach MD [address] [facility] [place] [address] PCP - General Internal Medicine 09/07/21 Drupal Php Developer Relationship Specialty Start Date End Date Dajuan Roach MD [address] [facility] [place] [address] PCP - General Internal Medicine 09/07/21 Drupal Php Developer Relationship Specialty Start Date End Date Dajuan Roach MD [address] [facility] [place] [address] PCP - General Internal Medicine 09/07/21 Drupal Php Developer Relationship Specialty Start Date End Date Dajuan Roach MD [address] [facility] [place] [address] PCP - General Internal Medicine 09/07/21 Drupal Php Developer Relationship Specialty Start Date End Date Dajuan Roach MD [address] [place] [address] PCP - General Internal Medicine 09/07/21 Drupal Php Developer Relationship Specialty Start Date End Date Dajuan Roach MD [address] [place] [address] PCP - General Internal Medicine 09/07/21 Drupal Php Developer Relationship Specialty Start Date End Date Dajuan Roach MD [address] [place] [address] PCP - General Internal Medicine 09/07/21 Drupal Php Developer Relationship Specialty Start Date End Date Dajuan Roach MD [address] [place] [address] PCP - General Internal Medicine 09/07/21 Drupal Php Developer Relationship Specialty Start Date End Date Dajuan Roach MD [address] [place] [address] PCP - General Internal Medicine 09/07/21 Drupal Php Developer Relationship Specialty Start Date End Date Dajuan Roach MD [address] [place] [address] PCP - General Internal Medicine 09/07/21 Taylor Alfonso, SPEECH ASSISTANT.CONTROL MANAGER [address] [place] [id number] Nurse Practitioner Cardiology 08/07/22 Drupal Php Developer Relationship Specialty Start Date End Date Dajuan Roach MD [address] [place] [address] PCP - General Internal Medicine 09/07/21 Taylor Alfonso, SPEECH ASSISTANT.CONTROL MANAGER [address] [place] [address] Nurse Practitioner Cardiology 08/07/22 Drupal Php Developer Relationship Specialty Start Date End Date Dajuan Roach MD [address] [place] [address] PCP - General Internal Medicine 09/07/21 Taylor Alfonso, SPEECH ASSISTANT.CONTROL MANAGER [address] [phone] (Fax) Nurse Practitioner Cardiology 08/07/22 Drupal Php Developer Relationship Specialty Start Date End Date Dajuan Roach MD [address] [place] [address] PCP - General Internal Medicine 09/07/21 Taylor Alfonso, SPEECH ASSISTANT.CONTROL MANAGER [address] [address] (Fax) Nurse Practitioner Cardiology 08/07/22 Drupal Php Developer Relationship Specialty Start Date End Date Dajuan Roach MD [address] [place] [address] PCP - General Internal Medicine 09/07/21 Taylor Alfonso, SPEECH ASSISTANT.CONTROL MANAGER [address] [phone] (Fax) Nurse Practitioner Cardiology 08/07/22 Drupal Php Developer Relationship Specialty Start Date End Date Dajuan Roach MD [address] [place] [address] PCP - General Internal Medicine 09/07/21 Taylor Alfonso, SPEECH ASSISTANT.CONTROL MANAGER [address] [place] [id number] Nurse Practitioner Cardiology 08/07/22 Drupal Php Developer Relationship Specialty Start Date End Date Dajuan Roach MD [address] [place] [address] PCP - General Internal Medicine 09/07/21 Taylor Alfonso, SPEECH ASSISTANT.CONTROL MANAGER [address] [address] (Fax) Nurse Practitioner Cardiology 08/07/22 Drupal Php Developer Relationship Specialty Start Date End Date Dajuan Roach MD [address] [place] [address] PCP - General Internal Medicine 09/07/21 Taylor Alfonso, SPEECH ASSISTANT.CONTROL MANAGER [address] [phone] (Fax) Nurse Practitioner Cardiology 08/07/22 Drupal Php Developer Relationship Specialty Start Date End Date Dajuan Roach MD [address] [place] [address] PCP - General Internal Medicine 09/07/21 Taylor Alfonso, SPEECH ASSISTANT.CONTROL MANAGER [address] [address] (Fax) Nurse Practitioner Cardiology 08/07/22 Drupal Php Developer Relationship Specialty Start Date End Date Dajuan Roach MD [address] [place] [address] PCP - General Internal Medicine 09/07/21 Taylor Alfonso SPEECH ASSISTANT.CONTROL MANAGER [address] [address] Nurse Practitioner Cardiology 08/07/22 Drupal Php Developer Relationship Specialty Start Date End Date Dajuan Roach MD [address] [place] [address] PCP - General Internal Medicine 09/07/21 Taylor Alfonso APRN.CONTROL MANAGER [address] [address] Nurse Practitioner Cardiology 08/07/22 Drupal Php Developer Relationship Specialty Start Date End Date Dajuan Roach MD [address] [place] [address] PCP - General Internal Medicine 09/07/21 Taylor Alfonso APRN.CONTROL MANAGER [address] [address] Nurse Practitioner Cardiology 08/07/22 Drupal Php Developer Relationship Specialty Start Date End Date Dajuan Roach MD [address] [place] [address] PCP - General Internal Medicine 09/07/21 Taylor Alfonso APRN.CONTROL MANAGER [address] [address] Nurse Practitioner Cardiology 08/07/22 INFORMATION SOURCE (unrecogn ized section and content) DATE CREATED AUTHOR AUTHOR'S NELSONIZ ATION 06/20/2023 [facility] FOR RECORDS PERTAINING TO PATIENTS WHO ARE [...] BE BASED ON THE PRIMARY CLINICAL RECORDS. [employer] provides no warranty or guarantee of the accuracy or completeness of information in this document.
[2023-08-07] MEDS: Lactated Ringers 1,000 ML 15 ML IV ×3 (07:58→11:55)
[2023-08-07 08:18] LABS: Bedside Glucose 81 mg/dL (74-106)
--- NOTE | 2023-08-07 08:44 | PCM.HP.BLA ---
History and Physical Date of Admission: 08/07/23 73 F who presents to the office today for PMH a-fib (baby aspirin); ADD; chronic fatigue; fibromyalgia; GERD; folic acid deficiency; hypothyroid; DMII; migraines. CT abd/pel for abdominal pain 06.16.21 with mild intrahepatic biliary ductal dilation. Diverticulosis without diverticulitis. Outside ED presentation 06.25.21 with generalized weakness for several week with nausea and emesis with weight loss and loose stools that are black and contain bright red blood with a history of a GIB s/p colonoscopy that she reported could not pass into her ?upper colon?. ? MRCP for Dilated bile duct 07.08.21 with mildly dilated intrahepatic biliary duct. *BGI established 06.02.22 with referral from PCP for evaluation of a GIB; denies issue with GIB. Several times a week she will experience abdominal spasms with subsequent loose stools which relieves discomfort. When not having this she has hard stools that she then strains to produce which will the produce a ?fissure? and will have blood. Contact start Relistor 450mg QD; not covered by ins. Start Movantik 25mg QAM per formulary. Not started r/t cost. OV 09.02.22 continues to have symptoms as noted at initial consult. She recently had steroid injections and has had increased GERD following this; Nexium OTC previously helpful and is no longer as helpful following injections. ? Urine glucose H1000, leukocyte esterase H25 OV 07.05.23 since start of Eliquis she has been having blood in her stool. History of GIB. BM have improved to daily with incomplete evacuation with use of stool to set feet upon; will have intermittent loose stools. Reports she ate an entire large cheese pizza yesterday and it will take until Monday for her body to digest this. Lactulose taken once or so a week. ROS Const Constitutional: Positive for other (Six system ROS completed with pertinent findings in HPI otherwise normal.) Exam Const General: cooperative, healthy appearing and no acute distress Nutritional Appearance: average body habitus Orientation: alert, awake and oriented x3 HENMT Head: normal to inspection Ears: hearing grossly normal bilaterally, external ears normal, TM's normal bilaterally and EAC's normal Nose: external nose normal, nares normal, septum normal and no nasal discharge Face and sinus: normal facial exam, face symmetric and sinus tenderness maxillary Mouth: oral mucosae normal, lip normal, tongue normal and oropharynx normal Throat: posterior oropharynx normal, tonsils normal, uvula midline and postnasal drainage (Purulent) Eyes General: appearance normal, both eyes and all related structures Neck Neck: normal visual inspection, full ROM, no lymphadenopathy, no meningeal signs and supple Chest Chest palpation & inspection: normal inspection of the chest Resp Effort & Inspection: normal respiratory effort, able to speak in complete sentences and no cough Auscultation: Bilateral: Clear to Auscultation Cardio Palpation: normal PMI Rate: regular rate Rhythm: regular rhythm Heart Sounds: S1 normal and S2 normal Pulses: radial pulses present Skin General: no rashes or lesions noted Neuro General: patient alert, patient awake and patient oriented x3 Cognition: normal cognition Speech: speech normal Psych Appearance: grossly normal Mental Status: mental status grossly normal Mood: congruent mood Affect: normal affect Speech and Movement: speech and movement normal Attitude: cooperative Quality Reporting Tobacco Screening ([facility] 138) Smoking Status: Former smoker Assessment and Plan Assessment and Plan (1) Alternating constipation and diarrhea: Status: Chronic Plan: She has been more constipated. I think it is been secondary to intermittent diverticular spasms in her colon associated with medication side effects that induced constipation and her. We will give her lactulose 10 mL at night. She was told if it starts to make her stools too soft she is to back off to every other day. She is okay with this plan. (2) Lower GI bleeding: Status: Acute Plan: She is having an persistent lower GI bleeding. She has a history of anal fissures and likely hemorrhoids due to the history that she provided today. Since has been over 10 years since she has had a colonoscopy we will do colonoscopy with possible biopsy injections and/or banding. She was explained alternatives, risk, benefits including outstanding bleeding, infection, sepsis, perforation, need for emergent surgery . She will have an ASA of 3. Orders: Orders Colonoscopy 07/19/23 R19.8 - Other specified symptoms and signs involving the digestive system and abdomen Medications: New ondansetron HCl 4 mg PO Q6H 30 tabs 0RF amoxicillin-pot clavulanate 500-125 mg 1 TAB PO BID 14 tabs 0RF I have examined the patient and the H&P has been reviewed. There are no clinical changes since date of exam.
[2023-08-07] MEDS: 0.9% Saline Lock 10 ML Syringe IV (09:12)
[2023-08-07] MEDS: 0.9% Normal Saline (Pres. free 10 ML Vial (09:12)
[2023-08-07] MEDS: Botulinum Toxin A 100 Units Vial IJ (09:12)
--- NOTE | 2023-08-07 09:28 | OP.CCLET_ITS ---
08/07/2023 Dajuan Eric [address] [place] [address] Re : Colonoscopy procedure for Ember Nielsen Dear Dr. Eric This procedure was performed on Monday, August 07, 2023. My impressions and recommendations are as follows: Impressions : - Anal fissure found on perianal exam. - Diverticulosis in the recto-sigmoid colon and in the sigmoid colon. - Anal fissure. Injected with botulinum toxin. - Non-bleeding internal hemorrhoids. - The examination was otherwise normal on direct and retroflexion views. - No specimens collected. Recommendations : - Discharge patient to home. - Resume previous diet. - Continue present medications. - Repeat colonoscopy in 5 years for surveillance. My findings are described in the full procedure note, which is enclosed. If I can be of further assistance, please feel free to contact me at . Sincerely, Berry Friend, 08/07/2023 9:27:47 AM This report has been signed electronically.
--- NOTE | 2023-08-07 09:28 | OP.COLON_ITS ---
Patient Name: Ember Nielsen Procedure Date: 08/07/2023 8:51 AM Date of : 1950 Age: 73 Procedure: Colonoscopy Indications: Screening for colorectal malignant neoplasm Providers: Berry Blas DO Medicines: Monitored Anesthesia Care Patient Profile: This is a 73 year old female. Refer to note in patient chart for documentation of history and physical. Last Colonoscopy: several years ago. Complications: No immediate complications. Procedure: Pre-Anesthesia Assessment: - Prior to the procedure, a History and Physical was performed, and patient medications and allergies were reviewed. The patient is competent. The risks and benefits of the procedure and the sedation options and risks were discussed with the patient. All questions were answered and informed consent was obtained. Patient identification and proposed procedure were verified by the physician in the pre-procedure area. Mental Status Examination: alert and oriented. Airway Examination: normal oropharyngeal airway and neck mobility. Respiratory Examination: clear to auscultation. CV Examination: normal. Prophylactic Antibiotics: The patient does not require prophylactic antibiotics. Prior Anticoagulants: The patient has taken no anticoagulant or antiplatelet agents. ASA Grade Assessment: III - A patient with severe systemic disease. After reviewing the risks and benefits, the patient was deemed in satisfactory condition to undergo the procedure. The anesthesia plan was to use monitored anesthesia care (MAC). Immediately prior to administration of medications, the patient was re-assessed for adequacy to receive sedatives. The heart rate, respiratory rate, oxygen saturations, blood pressure, adequacy of pulmonary ventilation, and response to care were monitored throughout the procedure. The physical status of the patient was re-assessed after the procedure. After I obtained informed consent, the scope was passed under direct vision. Throughout the procedure, the patient's blood pressure, pulse, and oxygen saturations were monitored continuously. The Colonoscope was introduced through the anus and advanced to the cecum, identified by appendiceal orifice and ileocecal valve. The colonoscopy was performed without difficulty. The patient tolerated the procedure well. The quality of the bowel preparation was adequate. The ileocecal valve, appendiceal orifice, and rectum were photographed. Scope In: 8:56:26 AM Scope Withdrawal Time 0 hours 9 minutes 52 seconds Scope Out: 9:22:09 AM Total Procedure Duration Time 0 hours 25 minutes 43 seconds Findings: An anal fissure was found on perianal exam. A few small-mouthed diverticula were found in the recto-sigmoid colon and sigmoid colon. A 7 mm anal fissure was found in the anal canal. Area was successfully injected with 100 units botulinum toxin. Non-bleeding internal hemorrhoids were found during retroflexion. The hemorrhoids were Grade I (internal hemorrhoids that do not prolapse). The exam was otherwise without abnormality on direct and retroflexion views. Impression: - Anal fissure found on perianal exam. - Diverticulosis in the recto-sigmoid colon and in the sigmoid colon. - Anal fissure. Injected with botulinum toxin. - Non-bleeding internal hemorrhoids. - The examination was otherwise normal on direct and retroflexion views. - No specimens collected. Recommendation: - Discharge patient to home. - Resume previous diet. - Continue present medications. - Repeat colonoscopy in 5 years for surveillance. Procedure Code(s): --- Professional --- 57924, Colonoscopy, flexible; with directed submucosal injection(s), any substance CPT copyright 2021 [employer]. All rights reserved. The codes documented in this report are preliminary and upon forest engineer review may be revised to meet current compliance requirements. Berry Blas DO 08/07/2023 9:27:47 AM This report has been signed electronically. Number of Addenda: 0 Note Initiated On: 08/07/2023 8:51 AM
--- NOTE | 2023-08-07 10:01 | SUR.PHASEI ---
heart rate continues to be 120s-150. Dr nichols aware, ordered EKG. Dr Nichols to consult Dr Villalba
--- NOTE | 2023-08-07 10:17 | SUR.PHASEI ---
500cc lr bolus being given, ordered per Dr Faustin
--- NOTE | 2023-08-07 10:53 | EKG12_ITS ---
Test Reason : Blood Pressure : / mmHG Vent. Rate : 134 BPM Atrial Rate : 133 BPM P-R Int : 000 ms QRS Dur : 088 ms QT Int : 346 ms P-R-T Axes : 000 029 013 degrees QTc Int : 516 ms Atrial fibrillation Low voltage QRS Abnormal ECG When compared with ECG of 01-JUN-2023 10:12, Atrial fibrillation has replaced Sinus rhythm Vent. rate has increased BY 46 BPM Confirmed by DIPAK WELSH, JESSIE ([id number]), business editor RANCHO JULIAN ([id number]) on 08/14/2023 2:12:53 PM Referred By: Berry Blas Confirmed By:MARILYNN QUESADA MD
[2023-08-07] MEDS: Metoprolol Tartrate 25 MG Tablet 12.5 MG PO (11:03)
[2023-08-07] MEDS: dilTIAZem 25 MG/5 ML Vial 5 MG IV BOLUS (11:09)
== END 2023-08-07 14:14 | disposition home or self-care (01) ==
LOC: EN 07:21 → AC 07:22
PROVIDERS: PCP Internal Medicine; Referring Provider Internal Medicine Gastroenterology; Visit Provider Internal Medicine Gastroenterology
PROC: 0DJD8ZZ Inspection of Lower Intestinal Tract, Via Natural or Artificial Opening Endoscopic (ICD-10-PCS; CPT 45378; principal; 2023-08-07 08:25)
DX: K92.2 Gastrointestinal hemorrhage, unspecified (principal); I48.91 Unspecified atrial fibrillation; E11.9 Type 2 diabetes mellitus without complications; Z79.4 Long term (current) use of insulin; R19.7 Diarrhea, unspecified; K64.0 First degree hemorrhoids; K60.2 Anal fissure, unspecified; K57.30 Diverticulosis of large intestine without perforation or abscess without bleeding; K59.09 Other constipation; Z87.891 Personal history of nicotine dependence; R19.8 Other specified symptoms and signs involving the digestive system and abdomen; G47.33 Obstructive sleep apnea (adult) (pediatric); Z79.01 Long term (current) use of anticoagulants; R23.3 Spontaneous ecchymoses; Z90.49 Acquired absence of other specified parts of digestive tract; Z98.42 Cataract extraction status, left eye; I95.9 Hypotension, unspecified
CPT/HCPCS: 45381; 82962; 93005; J7120; A4216; J0585; J2405; J3490

== ENCOUNTER → 2023-11-28 | Outpatient (CLI) | payer MEDICARE, OTHER, MEDICAID, SELFPAY ==
[2023-11-28 10:29] LABS: Absolute Lymphocyte Count 1.94 X10^3/uL (0.83-4.51); Absolute Neutrophil Count 8.5 X10^3/uL (2.0-7.7); Basophil# 0.06 X10^3/uL; Basophil% 0.5 % (0-1); Eosinophil# 0.09 X10^3/uL; Eosinophils% 0.8 % (0-5); Hematocrit 44.9 % (37-47); Hemoglobin 13.9 g/dL (12.0-15.0); Lymphocyte # 1.94 X10^3/ul (0.83-4.51); Lymphocyte % 16.5 % (19-41); Mean Corpuscular Hgb 29.4 pg (27.0-32.0); Mean Corpuscular Volume 94.9 fL (81-99); Monocyte% 9.4 % (0-10); NRBC Flagged by Analyzer 0 % (0-5); Neutrophil # 8.49 X10^3/uL (2.7-7.7); Neutrophil % 72.3 % (47-70); Platelet Count 298 K/mm3 (150-450); RBC Distribution Width SD 41.8 fl (35.1-43.9); Red Blood Count 4.73 M/mm3 (4.2-5.4); White Blood Count 11.7 K/mm3 (4.4-11.0)
[2023-11-28 10:45] LABS: BNP,B-Type NATRIURETIC PEPTIDE 78.1 pg/mL (0-100)
[2023-11-28 11:14] LABS: Anion Gap 5 (5-15); BUN 25 mg/dL (7-18); BUN/Creat Ratio 27.2 RATIO (10-20); Calcium,Total 10.3 mg/dL (8.5-10.1); Chloride 107 mmol/L (98-107); Creatinine, Serum 0.92 mg/dL (0.55-1.02); EST Glomerular Filtration Rate 64 mL/min (>60); Est Glom Filt Rate - Afr Amer 77 mL/min (>60); Glucose 147 mg/dL (74-106); Potassium 5.3 mmol/L (3.5-5.1); Sodium Level 141 mmol/L (136-145)
== END | disposition home or self-care (01) ==
PROVIDERS: PCP Internal Medicine; Referring Provider Nurse Practitioner Gerontology; Visit Provider Nurse Practitioner Gerontology
DX: R06.09 Other forms of dyspnea (principal)
CPT/HCPCS: 36415; 80048; 83880; 85025

== ENCOUNTER → 2023-12-05 | Outpatient (CLI) | payer MEDICARE, MEDICAID, SELFPAY | END | disposition home or self-care (01) | PROVIDERS: PCP Internal Medicine; Referring Provider Anesthesiology Pain Medicine; Visit Provider Anesthesiology Pain Medicine | DX: F11.20 Opioid dependence, uncomplicated (principal) ==

== ENCOUNTER → 2023-12-06 | Outpatient (REF) | payer MEDICARE, OTHER, MEDICAID, SELFPAY ==
[2023-12-06 07:43] LABS: Hematocrit 38.6 % (37-47); Hemoglobin 11.8 g/dL (12.0-15.0); Mean Corp Hgb Conc 30.6 g/dL (32-36); Mean Corpuscular Hgb 29.3 pg (27.0-32.0); Mean Corpuscular Volume 95.8 fL (81-99); Mean Platelet Vol. 9.2 fl (6.2-12.0); Platelet Count 232 K/mm3 (150-450); RBC Distribution Width CV 12.2 % (11.6-14.6); RBC Distribution Width SD 42.2 fl (35.1-43.9); Red Blood Count 4.03 M/mm3 (4.2-5.4); White Blood Count 8.5 K/mm3 (4.4-11.0)
[2023-12-06 08:07] LABS: Anion Gap 3 (5-15); BUN 21 mg/dL (7-18); BUN/Creat Ratio 25.7 RATIO (10-20); Chloride 107 mmol/L (98-107); Creatinine, Serum 0.82 mg/dL (0.55-1.02); EST Glomerular Filtration Rate 73 mL/min (>60); Est Glom Filt Rate - Afr Amer 89 mL/min (>60); Glucose 132 mg/dL (74-106); Potassium 4.5 mmol/L (3.5-5.1); Sodium Level 139 mmol/L (136-145)
== END ==
LOC: OLS.SWAL 05:00
PROVIDERS: PCP Internal Medicine; Visit Provider Nurse Practitioner Gerontology
DX: I48.91 Unspecified atrial fibrillation (principal); I10 Essential (primary) hypertension
CPT/HCPCS: 36415; 80048; 85027

== ENCOUNTER → 2024-04-29 | Outpatient (CLI) | payer MEDICARE, MEDICAID, SELFPAY ==
--- NOTE | 2024-04-29 14:32 | MRI_ITS ---
STUDY: MRI CERVICAL SPINE WITHOUT CONTRAST REASON FOR EXAM: Female, 74 years old. Radiculopathy TECHNIQUE: Standardized fat and water weighted pulse sequences were obtained in the sagittal and axial planes. COMPARISON: None FINDINGS: Normal foramen magnum and brainstem-cervical cord junction. Normal craniovertebral junction. Normal anterior atlantoaxial articulation. Normal odontoid process. There is reversal of the normal cervical lordosis. No fracture or compression deformity is present. No aggressive lesions are seen. There is no evidence of infection. C2-3: Normal endplates. Diffuse disc desiccation with mild posterior disc space narrowing and slight annular bulging with mass effect on the thecal sac and cord and mild central canal stenosis. Mild right foraminal stenosis. Normal left neural foramen. C3-4: Diffuse disc desiccation with mild posterior disc space narrowing and annular bulging causing compression across the anterior aspect of the cord and combined with moderate hypertrophy of the ligamenta flava causing moderate central canal stenosis and slight flattening of the cord. Severe left foraminal stenosis with nerve root compression due to severe facet joint hypertrophy. Normal right neural foramen. C4-5: Moderate to severe disc space narrowing with a diffuse disc bulge/spur complex causing compression on anterior aspect of the cord a superimposed large left paracentral disc protrusion is present measuring 8.6 mm in diameter with additional compression on left anterior aspect of the cord and flattening of the cord. Mild to moderate central canal stenosis is present. Severe left foraminal stenosis due to severe facet joint hypertrophy and mild uncovertebral hypertrophy. Mild right foraminal stenosis. Anterolisthesis of C4 on C5 of 2 to 3 mm. C5-6: Severe disc space narrowing without posterior disc herniation or bulging. Mild anterior endplate spurring. Moderate bilateral foraminal stenosis with nerve root compression due to uncovertebral facet joint hypertrophy. Normal central canal. C6-7: Diffuse disc desiccation with moderate disc space narrowing and a diffuse disc bulge/spur complex with mild central canal stenosis. Mild right foraminal stenosis. Moderate to severe left foraminal stenosis with nerve root compression due to severe facet joint and uncovertebral hypertrophy. C7-T1: Normal endplates. Normal disc height, signal and morphology. Normal central canal and intervertebral neural foramina. Normal cervical cord. No demyelinating lesions or syrinx formation of the cord are present. No intramedullary tumor or cyst is present. Normal visualized soft tissue structures. MRI/Spine Cervical (Routine) IMPRESSION: 1. Multilevel degenerative changes, as described above. Electronically Signed: Ted Lai MD at 9:32 EST ,
== END | disposition home or self-care (01) ==
PROVIDERS: PCP Internal Medicine; Referring Provider Anesthesiology Pain Medicine; Visit Provider Anesthesiology Pain Medicine
DX: M54.12 Radiculopathy, cervical region (principal)
CPT/HCPCS: 72141

== ENCOUNTER → 2024-05-13 | Outpatient (REF) | payer MEDICARE, OTHER, MEDICAID, SELFPAY ==
[2024-05-14 08:11] LABS: Bacteria 0 SEEN /hpf (None Seen); Mucous, Urine 0 SEEN /hpf (<or=2+); Red Blood Cells-Urine 0 SEEN /hpf (0-5); Squamous Epithelial Cells - UA 0 SEEN /hpf (5-10)
[2024-05-14 08:29] LABS: Color, Urine Yellow (Yellow); Glucose, Dipstick 1000 mg/dl (Normal); Ketone-Dipstick Negative (Negative); Leukocyte Esterase-Dipstick 25 /ul (Negative); Nitrite-Dipstick Negative (Negative); Occult Blood-Urine Negative /ul (Negative); Protein-Dipstick 15 mg/dl (Negative); Urine Bilirubin Dipstick Negative (Negative); Urine Clarity Sl. Cloudy (Clear); Urine Urobilinogen Normal (Normal); Urine pH 6.5 (5.0 - 8.0)
[2024-05-14 08:38] LABS: White Blood Cells 5-10 SEEN /hpf (0-5)
== END ==
LOC: OLS.SWAL 20:00
PROVIDERS: PCP Internal Medicine; Visit Provider Internal Medicine
DX: N39.0 Urinary tract infection, site not specified (principal)
CPT/HCPCS: 81001; 87086; 87088; 87186

== ENCOUNTER → 2024-06-04 | Outpatient (CLI) | payer MEDICARE, MEDICAID, SELFPAY ==
--- NOTE | 2024-06-04 10:24 | RAD_ITS ---
STUDY: X-RAY CHEST REASON FOR EXAM: Female, 74 years old. shorntess of breath TECHNIQUE: PA and lateral views of the chest. COMPARISON: 06/01/2023 FINDINGS: The lungs are clear and expanded. There is no demonstrated pleural abnormality. Normal size heart. Normal mediastinum and lorenzo. Normal visualized pulmonary arteries. Normal visualized aortic arch and descending thoracic aorta. There is a levoscoliosis of the thoracic spine. Normal visualized ribs, clavicles, and shoulders. There is no demonstrated abnormality of the visualized soft tissue structures of the upper abdomen. RAD/Chest PA and Lateral IMPRESSION: No active disease. Electronically Signed: Mono Leary MD at 14:13 EST ,
[2024-06-04 11:08] LABS: Absolute Lymphocyte Count 1.73 X10^3/uL (0.83-4.51); Absolute Neutrophil Count 7.8 X10^3/uL (2.0-7.7); Basophil# 0.06 X10^3/uL; Basophil% 0.6 % (0-1); Eosinophil# 0.05 X10^3/uL; Eosinophils% 0.5 % (0-5); Hematocrit 42.6 % (37-47); Hemoglobin 13.3 g/dL (12.0-15.0); Lymphocyte # 1.73 X10^3/ul (0.83-4.51); Lymphocyte % 15.9 % (19-41); Mean Corp Hgb Conc 31.2 g/dL (32-36); Mean Corpuscular Hgb 29.2 pg (27.0-32.0); Mean Corpuscular Volume 93.4 fL (81-99); Mean Platelet Vol. 9.3 fl (6.2-12.0); Monocyte# 1.23 X10^3/uL; Monocyte% 11.3 % (0-10); NRBC Flagged by Analyzer 0 % (0-5); Neutrophil # 7.75 X10^3/uL (2.7-7.7); Neutrophil % 71.4 % (47-70); Platelet Count 257 K/mm3 (150-450); RBC Distribution Width CV 12.5 % (11.6-14.6); RBC Distribution Width SD 42.9 fl (35.1-43.9); Red Blood Count 4.56 M/mm3 (4.2-5.4); White Blood Count 10.9 K/mm3 (4.4-11.0)
[2024-06-04 11:35] LABS: BNP,B-Type NATRIURETIC PEPTIDE 76.4 pg/mL (0-100)
[2024-06-04 14:40] LABS: Anion Gap 1 (5-15); BUN 26 mg/dL (7-18); BUN/Creat Ratio 29.9 RATIO (10-20); Calcium,Total 9.3 mg/dL (8.5-10.1); Chloride 106 mmol/L (98-107); Creatinine, Serum 0.87 mg/dL (0.55-1.02); EST Glomerular Filtration Rate 68 mL/min (>60); Est Glom Filt Rate - Afr Amer 82 mL/min (>60); Glucose 123 mg/dL (74-106); Potassium 4.4 mmol/L (3.5-5.1); Sodium Level 140 mmol/L (136-145)
== END | disposition home or self-care (01) ==
PROVIDERS: PCP Internal Medicine; Referring Provider Nurse Practitioner Family; Visit Provider Nurse Practitioner Family
DX: R06.02 Shortness of breath (principal); I48.0 Paroxysmal atrial fibrillation; R06.09 Other forms of dyspnea; R00.2 Palpitations; I10 Essential (primary) hypertension
CPT/HCPCS: 36415; 71046; 80048; 83880; 84443; 85025

== ENCOUNTER → 2024-07-23 | Outpatient (CLI) | payer MEDICARE, MEDICAID, SELFPAY ==
--- NOTE | 2024-07-23 12:57 | ECHOCS_ITS ---
Reason For Study Reason For Study: Dyspnea/SOB Procedure This was a 2D Doppler, Color Flow transthoracic echocardiogram. Contrast injection was performed. Exam performed in department. Left Ventricle Normal LV size. Left ventricular systolic function is normal. The left ventricular ejection fraction is 60 %. No regional wall motion abnormalities noted. Right Ventricle Normal RV size. Normal systolic function. Atria Normal left atrium. Normal right atrium. Mitral Valve There is mild to moderate mitral annular calcification. Tricuspid Valve Normal tricuspid valve. Aortic Valve Trisinus/trileaflet aortic valve. Mild focal aortic valve calcification. Pulmonic Valve Normal pulmonic valve. Great Vessels Mildly calcified aortic root. The pulmonary artery is normal size. Inferior vena cava collapse with respiration. Pericardium/Pleural No pericardial effusion. Medication Diluted definity 2ml given slow IV push to enhance endocardial definition. MMode/2D Measurements & Calculations LVIDd: 3.5 cm IVSd: 1.0 cm Ao root diam: 2.8 cm LVIDs: 2.4 cm LVPWd: 0.89 cm RVDd: 2.7 cm FS: 32.2 % LAV(MOD-bp): 41.1 ml LVAd ap4: 24.0 cm2 SV(MOD-sp4): 47.0 ml LAV(MOD-bp) Indexed: 24.3 ml/m2 LVLd ap4: 6.8 cm SI(MOD-sp4): 27.8 ml/m2 LAV(MOD-sp2): 39.0 ml EDV(MOD-sp4): 69.3 ml LAV(MOD-sp4): 36.8 ml EDV(sp4-el): 71.6 ml LVAs ap4: 12.0 cm2 LVLs ap4: 5.4 cm ESV(MOD-sp4): 22.3 ml ESV(sp4-el): 22.5 ml EF(MOD-sp4): 67.8 % EF(sp4-el): 68.6 % SV(sp4-el): 49.2 ml LA A4 area: 17.0 cm2 LA dimension(2D): 4.2 cm RA A4 area: 13.6 cm2 TAPSE: 2.2 cm Time Measurements MV dec time: 0.28 sec Doppler Measurements & Calculations MV E max naga: 74.8 cm/sec Lat Peak E' Naga: 12.0 cm/sec Med Peak E' Naga: 8.1 cm/sec MV A max naga: 87.6 cm/sec E/E' lat: 6.2 E/E' med: 9.2 MV E/A: 0.85 MV dec slope: 263.7 cm/sec2 Ao V2 max: 166.4 cm/sec LV V1 max: 106.7 cm/sec Ao max P.1 mmHg LV V1 max P.6 mmHg Ao V2 mean: 108.2 cm/sec LV V1 mean P.4 mmHg Ao mean P.4 mmHg LV V1 mean: 71.3 cm/sec Ao V2 VTI: 37.1 cm LV V1 VTI: 24.9 cm AV (velocity ratio): 0.67 PA V2 max: 76.4 cm/sec PI end-d naga: 84.3 cm/sec TR max naga: 192.9 cm/sec TR max P.9 mmHg ECHO/Echo Complete W/ Contrast Interpretation Summary Normal LV size. Left ventricular systolic function is normal. The left ventricular ejection fraction is 60 %. Mildly calcified aortic root. Ordering Physician: Anthony Juarez Referring Physician: Anthony Juarez Performed By: Vicky Juarez, DULCE, RVT
== END | disposition home or self-care (01) ==
LOC: CVS 12:57
PROVIDERS: PCP Internal Medicine; Referring Provider Nurse Practitioner Family; Visit Provider Nurse Practitioner Family
DX: R06.02 Shortness of breath (principal)
CPT/HCPCS: 93306; Q9957; A4216; C8929

== ENCOUNTER → 2024-08-27 | Outpatient (CLI) | payer MEDICARE, MEDICAID, SELFPAY ==
[2024-08-27 13:02] LABS: Absolute Lymphocyte Count 2.06 X10^3/uL (0.83-4.51); Absolute Neutrophil Count 9.2 X10^3/uL (2.0-7.7); Basophil# 0.06 X10^3/uL; Basophil% 0.5 % (0-1); Eosinophil# 0.07 X10^3/uL; Eosinophils% 0.6 % (0-5); Hematocrit 41.5 % (37-47); Hemoglobin 13.3 g/dL (12.0-15.0); Lymphocyte # 2.06 X10^3/ul (0.83-4.51); Lymphocyte % 16.3 % (19-41); Mean Corpuscular Hgb 29.5 pg (27.0-32.0); Mean Platelet Vol. 9.3 fl (6.2-12.0); Monocyte% 9.5 % (0-10); NRBC Flagged by Analyzer 0 % (0-5); Neutrophil # 9.18 X10^3/uL (2.7-7.7); Neutrophil % 72.8 % (47-70); Platelet Count 256 K/mm3 (150-450); RBC Distribution Width CV 12.1 % (11.6-14.6); Red Blood Count 4.51 M/mm3 (4.2-5.4); White Blood Count 12.6 K/mm3 (4.4-11.0)
[2024-08-27 13:38] LABS: Anion Gap 6 (5-15); BUN 24 mg/dL (4-19); BUN/Creat Ratio 34.1 RATIO (10-20); Calcium,Total 9.3 mg/dL (7.6-11.0); Carbon Dioxide 28.1 mmol/L (21.0-32.0); Chloride 104 mmol/L (98-108); Creatinine, Serum 0.71 mg/dL (0.70-1.20); EST Glomerular Filtration Rate 90 (>60); Glucose 120 mg/dL (70-99); Magnesium 2.2 mg/dL (1.5-2.2); Potassium 4.2 mmol/L (3.3-5.1); Sodium Level 139 mmol/L (133-145)
== END | disposition home or self-care (01) ==
LOC: LAB 12:27
PROVIDERS: PCP Internal Medicine; Referring Provider Nurse Practitioner Family; Visit Provider Nurse Practitioner Family
DX: I10 Essential (primary) hypertension (principal); I48.0 Paroxysmal atrial fibrillation
CPT/HCPCS: 36415; 80048; 83735; 84439; 84443; 85025

== ENCOUNTER → 2024-09-02 | Outpatient (CLI) | payer MEDICARE, MEDICAID, SELFPAY | END | disposition home or self-care (01) | PROVIDERS: PCP Internal Medicine; Referring Provider Nurse Practitioner Family; Visit Provider Nurse Practitioner Family | DX: R05.9 Cough, unspecified (principal) | CPT/HCPCS: 94060; 94726; 94729 ==

== ENCOUNTER → 2024-09-04 | Outpatient (REF) | payer MEDICARE, MEDICAID, SELFPAY ==
[2024-09-04 17:15] LABS: Color, Urine Yellow (Yellow); Glucose, Dipstick 1000 mg/dl (Normal); Ketone-Dipstick Negative (Negative); Leukocyte Esterase-Dipstick 25 /ul (Negative); Nitrite-Dipstick Negative (Negative); Occult Blood-Urine 10 /ul (Negative); Protein-Dipstick 15 mg/dl (Negative); Urine Bilirubin Dipstick Negative (Negative); Urine Clarity Clear (Clear); Urine Urobilinogen Normal (Normal)
== END ==
LOC: OLS.SWAL 16:47
PROVIDERS: PCP Internal Medicine; Referring Provider Internal Medicine; Visit Provider Internal Medicine
DX: N39.0 Urinary tract infection, site not specified (principal)
CPT/HCPCS: 81002; 87086; 87088; 87186

== ENCOUNTER 2024-09-05 19:24 | Observation (INO) | payer MEDICARE, MEDICAID, SELFPAY ==
[2024-09-05] VITALS (7 sets, daily range): BP systolic 89–119; BP diastolic 64–91; PULSE 113–141; RESP 12–22; TEMP 36.9; O2SAT 94–98; BMI 26.8
--- NOTE | 2024-09-05 20:02 | EKG12_ITS ---
Test Reason : PALPITATIONS Blood Pressure : */* mmHG Vent. Rate : 133 BPM Atrial Rate : * BPM P-R Int : * ms QRS Dur : 86 ms QT Int : 274 ms P-R-T Axes : * -7 9 degrees QTcB Int : 407 ms Atrial fibrillation with rapid ventricular response Inferior infarct , age undetermined Anterior infarct , age undetermined Abnormal ECG Confirmed by SONI WELSH, RUMA ([id number]), editor book SAW TROY ([id number]) on 09/06/2024 8:22:06 AM Referred By: NIKKI PHYS Confirmed By: RUMA SHAFER MD
--- NOTE | 2024-09-05 20:02 | RAD_ITS ---
PROCEDURE: CHEST 1 VIEW (PORTABLE) 09/05/2024 REASON FOR EXAM: 74-year-old female, chest pain. TECHNIQUE: Frontal view of the chest. COMPARISON: Chest radiograph 06/04/2024. FINDINGS: The patient is slightly rotated. Hardware: None. Heart: Cardiac and mediastinal contours are stable. Lungs: No focal consolidation, pleural effusion or pneumothorax. Bones: Degenerative changes are identified within the thoracic spine. RAD/Chest 1 View (Portable) IMPRESSION: No Acute Findings. Reading Location: [id number]
[2024-09-05 20:12] LABS: Absolute Lymphocyte Count 2.18 X10^3/uL (0.83-4.51); Absolute Neutrophil Count 6.1 X10^3/uL (2.0-7.7); Basophil# 0.04 X10^3/uL; Basophil% 0.4 % (0-1); Eosinophil# 0.07 X10^3/uL; Eosinophils% 0.7 % (0-5); Hematocrit 41.4 % (37-47); Hemoglobin 13.4 g/dL (12.0-15.0); Lymphocyte # 2.18 X10^3/ul (0.83-4.51); Lymphocyte % 23.2 % (19-41); Mean Corp Hgb Conc 32.4 g/dL (32-36); Mean Corpuscular Hgb 29.9 pg (27.0-32.0); Mean Corpuscular Volume 92.4 fL (81-99); Mean Platelet Vol. 9.4 fl (6.2-12.0); Monocyte# 0.98 X10^3/uL; Monocyte% 10.4 % (0-10); NRBC Flagged by Analyzer 0 % (0-5); Neutrophil # 6.08 X10^3/uL (2.7-7.7); Platelet Count 225 K/mm3 (150-450); RBC Distribution Width SD 41.4 fl (35.1-43.9); Red Blood Count 4.48 M/mm3 (4.2-5.4); White Blood Count 9.4 K/mm3 (4.4-11.0)
--- NOTE | 2024-09-05 20:12 | ED.VIS.CHEST ---
HPI History of Present Illness Chief Complaint: Palpitations Informant: patient Onset/Context/Timing Onset: Today and Hours Timing: Continuous Current Severity: Mild Maximum Severity: Mild Narrative Narrative: 74-year-old female history of A-fib TIA currently on Eliquis and metoprolol for A-fib. Sees cardiology at the hospital. States she has had palpitations since about 1 PM today. She has had intermittent A-fib the last several days. Denies any significant chest pain just feels weak and intermittently short of breath. Prior Similar Symptoms: Yes Recent Illness/Hospitalization: No CVD Risk Factors: Negative for Hypertension, Diabetes or Hypercholesterolemia PE Risk Factors: Negative for Recent Travel/Surgery, Recent Immobilization, Prior DVT or PE, Cancer or OCP + Smoking + >/=35 TAD Risk Factors: Negative for Marfan's Syndrome or Hypertension [facility] Medical History Atelectasis Wears glasses Depression Anxiety Easy bruising TIA (transient ischemic attack) Difficulty swallowing Chronic cough Former smoker CPAP (continuous positive airway pressure) dependence History of echocardiogram History of stress test Cardiology follow-up encounter Acute sinusitis, unspecified Paroxysmal atrial fibrillation Essential hypertension IBS (irritable bowel syndrome) Type 2 diabetes mellitus without complication, with long-term current use of insulin Osteopenia Intractable back pain Insomnia Hypothyroidism GERD (gastroesophageal reflux disease) Folic acid deficiency Fibromyalgia Chronic fatigue syndrome ADD (attention deficit disorder) SOB (shortness of breath) Arthritis Asthma Atrial fibrillation Home Medications ?Medication ?Instructions ?Recorded ?Last Taken ?Type montelukast 10 mg tablet 10 mg PO QPM 01/13/22 Unknown History tamsulosin 0.4 mg capsule 0.4 mg PO DAILY 01/13/22 Unknown History thyroid (pork) 60 mg tablet ([employer] 60 mg PO DAILY 01/13/22 Unknown History Thyroid) ascorbate calcium (vitamin C) 500 500 mg PO DAILY 09/15/22 Unknown History mg tablet gsapzdc-exaecylgthtdo-ttrklqfc 250 1 tab PO Q6H PRN pain 09/15/22 Unknown History mg-250 mg-65 mg tablet (Excedrin Migraine) gabapentin 300 mg capsule 600 mg PO TID 09/15/22 Unknown History gabapentin 300 mg capsule 900 mg PO QHS 09/15/22 Unknown History multivitamin-ferrous 1 tab PO DAILY 09/15/22 07/16/23 History fumarate-folic acid 18 mg-400 mcg tablet (Centrum Women) nitroglycerin 0.4 mg sublingual 0.4 mg sublingual Q5-15M PRN chest 09/15/22 Unknown History tablet pain rosuvastatin 10 mg tablet 10 mg PO DAILY 09/15/22 Unknown History albuterol sulfate 90 mcg/actuation 2 puff inhalation Q4H PRN 09/19/22 Unknown Rx aerosol inhaler (Ventolin HFA) shortness of breath or wheezing #18 grams apixaban 5 mg tablet (Eliquis) 5 mg PO BID #60 tabs 06/23/23 08/03/23 Rx metoprolol tartrate 25 mg tablet 12.5 mg PO BID 07/17/23 Unknown History dicyclomine 20 mg tablet 20 mg PO BID #60 tabs 09/18/23 Unknown Rx esomeprazole magnesium 40 mg 40 mg PO QDAY #90 caps 04/10/24 Unknown Rx capsule,delayed release linaclotide 290 mcg capsule 290 mcg PO QAM #90 caps 04/10/24 Unknown Rx (Linzess) ondansetron 4 mg disintegrating 4 mg PO Q8H PRN nausea and 04/10/24 Unknown Rx tablet vomiting #20 tabs acetaminophen 325 mg tablet 650 mg PO Q4H PRN 06/04/24 Unknown History bisacodyl 10 mg rectal suppository 10 mg OK QDAY PRN 06/04/24 Unknown History buprenorphine 10 mcg/hour weekly 1 patch topical QWEEK 06/04/24 Unknown History transdermal patch cholecalciferol (vitamin D3) 125 125 mcg PO QDAY 06/04/24 Unknown History mcg (5,000 unit) tablet dimenhydrinate 50 mg tablet 50 mg PO ONCE PRN nausea and 06/04/24 Unknown History (Dramamine) vomiting diphenhydramine HCl 25 mg capsule 25 mg PO Q4H PRN allergic reaction 06/04/24 Unknown History (Allergy (diphenhydramine)) empagliflozin 25 mg tablet 25 mg PO QDAY 06/04/24 Unknown History (Jardiance) furosemide 40 mg tablet (Lasix) 40 mg PO QDAY PRN SOB, Edema 06/04/24 Unknown History glipizide 2.5 mg tablet, extended 2.5 mg PO QDAY 06/04/24 Unknown History release 24 hr hydrocodone-acetaminophen 5-325mg 1 tab PO TID 06/04/24 Unknown History 5mg-325mg ipratropium 0.5 mg-albuterol 3 mg 3 ml inhalation Q6H PRN 06/04/24 Unknown History (2.5 mg base)/3 mL nebulization soln levomefolate 7.5 mg-algal oil 2 cap PO QDAY 06/04/24 Unknown History 90.314 mg capsule (Deplin (algal oil)) magnesium oxide 400 mg PO QDAY 06/04/24 Unknown History simethicone 80 mg chewable tablet 80 mg PO 4-6XD PRN 06/04/24 Unknown History (Gas Relief (simethicone)) tizanidine 2 mg capsule 4 mg PO QHS 06/04/24 Unknown History trazodone 150 mg tablet 300 mg PO QHS 06/04/24 Unknown History acetaminophen 500 mg tablet 1,000 mg PO Q12H PRN 07/26/24 Unknown History (Tylenol Extra Strength) aluminum-mag hydroxide-simethicone 30 ml PO Q4H PRN 07/26/24 Unknown History 200 mg-200 mg-20 mg/5 mL oral susp amoxicillin 875 mg tablet mg PO 07/26/24 07/26/24 08:00 History dextrose 40 % oral gel (Glucose 10 g PO Q15M PRN 07/26/24 Unknown History Gel) fluticasone furoate 200 1 inh inhalation Q24H #30 ea 07/26/24 Unknown Rx mcg/actuation blister powder for inhalation (Arnuity Ellipta) guaifenesin 1,200 mg tablet, 1,200 mg PO .QD #30 tabs 07/26/24 Unknown Rx extended release 12 hr (Mucinex) magnesium hydroxide 400 mg/5 mL 30 ml PO ONCE PRN 07/26/24 Unknown History oral suspension (Milk of Magnesia) potassium chloride 20 mEq 20 meq PO ONCE With Lasix 07/26/24 Unknown History tablet,extended release Allergy/AdvReac Type Severity Reaction Status Date / Time Environmental Allergies: Allergy Severe Anaphylaxis Verified 09/05/24 19:34 Uncoded pregabalin (From Lyrica) Allergy Severe Suicidal Verified 09/05/24 19:34 ideations prochlorperazine (From Allergy Severe hallucinati Verified 09/05/24 19:34 Compazine) ons metformin Allergy Unknown stomach Verified 09/05/24 19:34 cramping Sulfa (Sulfonamide Allergy Unknown unknown Verified 09/05/24 19:34 Antibiotics) ketorolac (From Toradol) Allergy Pain in Verified 09/05/24 19:34 joints doxycycline AdvReac Unknown Nausea/Vom/ Verified 09/05/24 19:34 Diarrhea Family History Other Cancer Diabetes Heart disease Surgical History H/O bilateral cataract extraction History of tonsillectomy History of total abdominal hysterectomy and bilateral salpingo-oophorectomy History of cholecystectomy History of colonoscopy History of appendectomy Hx of shoulder surgery Social History household members: none Smoking Status: Former smoker how long ago did patient quit smokin alcohol intake: former year quit: 1995 substance use type: former substance user Date of last use: 1969 ROS ROS ED ROS Narrative Denies recent illness. Palpitations. Accelerated heart rate. Shortness of breath. Constitutional Constitutional ED: Denies chills or fever(s) Eyes Eyes: Reports none ENT ENT ED: Denies ear pain Cardiovascular Cardiovascular: Reports as per HPI, palpitations and racing heartbeat Respiratory/Chest Respiratory/Chest: Reports dyspnea; Denies cough Gastrointestinal Gastrointestinal: Denies abdominal pain Genitourinary Genitourinary ED: Denies dysuria or hematuria Musculoskeletal Musculoskeletal: Denies arthralgias or back pain Integumentary Denies abscess Neurologic Neurologic: Denies headache(s) Psychiatric Psychiatric: Denies anxiety Endocrine Endocrinology: Denies cold intolerance Hematologic/Lymphatic Hematologic/Lymphatic: Denies easy bleeding, easy bruising or lymphadenopathy Allergic/Immunologic Allergic/Immunologic ED: Denies mouth swelling, tongue swelling or urticaria EXAM Physical Exam Narrative Exam Narrative: 74-year-old female in A-fib rate 1 40-1 50 on the monitor. Otherwise sitting upright in bed. No acute distress otherwise. No family present in room. H EENT exam pupils round reactive light. Moist mucous membranes. Neck nontender no JVD. Lungs clear to auscultation bilaterally. Heart A-fib RVR rate about 150. Chest wall ribs nontender. Abdomen soft nontender. Moving all 4 extremities. Normal strength. Nontender no edema. Neurologically she is awake and alert no focal motor deficits. Back nontender. Const Vital Signs: 09/05/24 19:24 09/05/24 19:25 09/05/24 20:05 Temperature 98.4 F Temperature Source Oral Pulse Rate 140 H Respiratory Rate 19 H Blood Pressure 119/91 H Blood Pressure Mean 100 Pulse Ox 96 Oxygen Delivery Method Room Air Room Air Room Air Oxygen Flow Rate (L/min) 94 09/05/24 20:20 09/05/24 21:00 09/05/24 22:00 Temperature Temperature Source Pulse Rate 134 H 113 H 123 H Respiratory Rate 20 H 18 22 H Blood Pressure 100/64 103/64 97/68 Blood Pressure Mean 76 77 77 Pulse Ox 98 95 97 Oxygen Delivery Method Room Air Room Air Room Air Oxygen Flow Rate (L/min) 09/05/24 22:42 Temperature Temperature Source Pulse Rate 136 H Respiratory Rate 12 Blood Pressure 99/81 H Blood Pressure Mean 87 Pulse Ox 94 Oxygen Delivery Method Oxygen Flow Rate (L/min) Positive well nourished and well developed; Negative for cachectic, contractures or unkempt General Appearance ED: well developed; Negative for unkempt, cachectic, contractures or pallor Nutritional Appearance: Negative for cachectic HEENT Reports moist mucous membranes normocephalic and atraumatic Eyes PERRL and EOMs intact bilaterally Neck no lymphadenopathy, supple and no JVD Chest Wall inspection of chest normal and palpation of chest normal Resp normal respiratory effort and clear to auscultation bilaterally Cardio S1 normal heart sound, S2 normal heart sound and no murmurs; Negative for regular rate Rate: tachycardic and other Other Details: A-fib RVR rate 150. GI normal to inspection, nondistended, normoactive bowel sounds, soft to palpation, non-tender, non-distended and no masses Back/Spine no CVA tenderness and no thoracic nor lumbar tenderness Extremity normal to inspection General Extremety ED: Negative for edema or tenderness General Extremity: Negative for edema Neuro oriented x3 and CN's II-XII intact bilaterally Sensorium / Orientation: awake, alert, oriented to person, oriented to place and oriented to time; Negative for confused, lethargic or stuporous Psych mental status grossly normal Appearance: Negative for unkempt Attitude: No agitated Mood & Affect: Negative for depressed, anxious or tearful Skin no rashes or lesions noted and no wounds General Skin Exam: Negative for jaundice or pallor Rashes: No rashes noted Trauma: Negative for abrasion or laceration MDM MDM MDM Narrative Medical decision making narrative: 74-year-old female history of A-fib on Eliquis currently in A-fib RVR. Will be given IV Cardizem 20 mg slow push. Undergo cardiac workup. If we get her A-fib controlled under 100 consistently she may be able to be discharged home if we cannot she will go on a Cardizem drip and be admitted. Repeat exam the initial dose of Cardizem brought her heart rate down a little bit but she still in the 07/02/1927 range. She was started on Cardizem drip. She was given fluid bolus due to her borderline hypotension. Patient is tolerating this well at 10:45 PM. She understands she will be admitted. History & Record Review Discussion w/independent historian: Patient Additional record(s) reviewed:: Prior inpatient record, Prior outpatient record, Prior ED visit and Prior labs Lab Data Attestation: I reviewed the patient's lab results. Lab results narrative: CBC shows white count 9. H&H 13 and 41. Platelets 225. Electrolytes show gap 14. Normal BUN of 19 creatinine of 1. Glucose 157. Initial troponin 13. Chest x-ray negative. Labs: Laboratory Results - last 24 hr 09/05/24 19:33 WBC 9.4 RBC 4.48 Hgb 13.4 Hct 41.4 MCV 92.4 MCH 29.9 MCHC 32.4 RDW Std Deviation 41.4 RDW Coeff of Dave 12.0 Plt Count 225 MPV 9.4 Immature Gran % (Auto) 0.300 Neut % (Auto) 65.0 Lymph % (Auto) 23.2 [place] % (Auto) 10.4 H Eos % (Auto) 0.7 Baso % (Auto) 0.4 Absolute Neuts (auto) 6.1 Absolute Lymphs (auto) 2.18 Nucleated RBC % 0 Sodium 139 Potassium 4.2 Chloride 104 Carbon Dioxide 21.6 Anion Gap 14 BUN 19 Creatinine 1.01 Estim Creat Clear Calc 46.80 L Est GFR (MDRD) Non-Af 59 L BUN/Creatinine Ratio 18.3 Glucose 157 H Calcium 8.7 Troponin T High Sens 13 Radiography Chest X-Ray - ED: 1 View, Read by ED Physician, Read by Radiologist, Normal, Heart, Lungs, Mediastinum, Bony Structures, No Acute Disease and Chronic Changes Diagnostic Testing: Clinical Impression(s) from Imaging Studies Chest X-Ray 09/05/24 20:02 IMPRESSION: No Acute Findings. Reading Location: [facility] Chest x-ray, portable, single view, interpreted by myself and radiologist shows no acute abnormality. Normal cardiac silhouette. Normal lung cunha. Chronic changes. Rhythm Strip Rhythm Strip: A-fib Rate: 133 Ectopy: None EKG Initial EKG: Attestation: I personally reviewed and interpreted this EKG as follows: Interpretation: No Acute Injury Pattern and Atrial Fibrillation Comments: A-fib RVR rate 133. No acute signs of TN. Critical Care Time Critical Care Time: Yes Critical care time (excluding procedures): 30-74 minutes, Including time spent:, Discussing w/Patient &/or Family/Professional Tutor, Discussing w/Consultants, Arranging Admission or Transfer, Performing Direct Patient Care at Bedside and - (36 minutes) Discharge Plan Triage Chief Complaint: Palpitations ED Provider: Nicolás Penn Dx/Rx/DC Orders Clinical Impression: Atrial fibrillation with rapid ventricular response, Chronic anticoagulation, History of TIAs Prescriptions: No Action tamsulosin 0.4 mg capsule 0.4 mg PO DAILY montelukast 10 mg tablet 10 mg PO QPM thyroid (pork) [[employer] Thyroid] 60 mg tablet 60 mg PO DAILY gabapentin 300 mg capsule 600 mg PO TID gabapentin 300 mg capsule 900 mg PO QHS nitroglycerin 0.4 mg tablet, sublingual 0.4 mg sublingual Q5-15M PRN (Reason: chest pain) Rx Instructions: do not exceed 3 doses per episode rosuvastatin 10 mg tablet 10 mg PO DAILY Centrum Women 18-400 mg-mcg tablet 1 tab PO DAILY Excedrin Migraine 250-250-65 mg tablet 1 tab PO Q6H PRN (Reason: pain) ascorbate calcium (vitamin C) 500 mg tablet 500 mg PO DAILY diphenhydramine HCl [Allergy (diphenhydramine)] 25 mg capsule 25 mg PO Q4H PRN (Reason: allergic reaction) dimenhydrinate [Dramamine] 50 mg tablet 50 mg PO ONCE PRN (Reason: nausea and vomiting) hydrocodone-acetaminophen 5-325 mg tablet 1 tab PO TID Patient Comments: TAKE 1 TABLET BY MOUTH TWICE DAILY FOR 28 DAYS trazodone 150 mg tablet 300 mg PO QHS albuterol sulfate [Ventolin HFA] 90 mcg/actuation HFA aerosol inhaler 2 puff inhalation Q4H PRN (Reason: shortness of breath or wheezing) Qty: 18 6RF Eliquis 5 mg tablet 5 mg PO BID Qty: 60 11RF furosemide [Lasix] 40 mg tablet 40 mg PO QDAY PRN (Reason: SOB, Edema) amoxicillin 875 mg tablet PO dextrose [Glucose Gel] 40 % gel 10 g PO Q15M PRN Rx Instructions: until symptoms of low blood sugar are controlled acetaminophen [Tylenol Extra Strength] 500 mg tablet 1,000 mg PO Q12H PRN magnesium hydroxide [Milk of Magnesia] 400 mg/5 mL suspension 30 ml PO ONCE PRN alum-mag hydroxide-simeth 200-200-20 mg/5 mL suspension 30 ml PO Q4H PRN potassium chloride 20 mEq tablet extended release 20 meq PO ONCE guaifenesin [Mucinex] 1,200 mg tablet extended release 12hr 1,200 mg PO .QD Qty: 30 1RF Arnuity Ellipta 200 mcg/actuation blister with device 1 inh inhalation Q24H Qty: 30 5RF acetaminophen 325 mg tablet 650 mg PO Q4H PRN bisacodyl 10 mg suppository 10 mg OK QDAY PRN cholecalciferol (vitamin D3) 125 mcg (5,000 unit) tablet 125 mcg PO QDAY buprenorphine 10 mcg/hour patch weekly 1 patch topical QWEEK Deplin (algal oil) 7.5-90.314 mg capsule 2 cap PO QDAY glipizide 2.5 mg tablet extended release 24hr 2.5 mg PO QDAY ipratropium-albuterol 0.5 mg-3 mg(2.5 mg base)/3 mL solution for nebulization 3 ml inhalation Q6H PRN Jardiance 25 mg tablet 25 mg PO QDAY magnesium oxide 400 mg magnesium tablet 400 mg PO QDAY simethicone [Gas Relief (simethicone)] 80 mg tablet,chewable 80 mg PO 4-6XD PRN tizanidine 2 mg capsule 4 mg PO QHS esomeprazole magnesium 40 mg capsule,delayed release(DR/EC) 40 mg PO QDAY Qty: 90 3RF Linzess 290 mcg capsule 290 mcg PO QAM Qty: 90 3RF ondansetron 4 mg tablet,disintegrating 4 mg PO Q8H PRN (Reason: nausea and vomiting) Qty: 20 3RF metoprolol tartrate 25 mg tablet 12.5 mg PO BID dicyclomine 20 mg tablet 20 mg PO BID Qty: 60 6RF Primary Care Provider: Dajuan Eric Referrals: Dajuan Eric MD [Primary Care Provider] - Print Language: Polish Disposition Disposition: Acute Care Hospital [facility]
[2024-09-05] MEDS: 0.9% Normal Saline (250mL Bag) 250 ML 999 ML IV (20:20)
[2024-09-05] MEDS: dilTIAZem 25 MG/5 ML Vial 20 MG IV BOLUS (20:22)
[2024-09-05 20:39] LABS: Anion Gap 14 (5-15); BUN 19 mg/dL (4-19); BUN/Creat Ratio 18.3 RATIO (10-20); Calcium,Total 8.7 mg/dL (7.6-11.0); Carbon Dioxide 21.6 mmol/L (21.0-32.0); Chloride 104 mmol/L (98-108); Creatinine, Serum 1.01 mg/dL (0.70-1.20); EST Glomerular Filtration Rate 59 (>60); Glucose 157 mg/dL (70-99); Potassium 4.2 mmol/L (3.3-5.1); Sodium Level 139 mmol/L (133-145); Troponin T High Sensitivity 13 ng/L (<=14)
[2024-09-05] MEDS: Diltiazem 125 MG in Dextrose 5%-Water (100mL Bag) 100 ML IV (22:42)
[2024-09-05] MEDS: 0.9% Normal Saline (500mL Bag) 500 ML 999 ML IV (22:42)
--- NOTE | 2024-09-05 22:49 | ED.RN ---
HS MEDICATIONS SENT WITH PATIENT FROM [facility]. ALL MEDICATIONS WASTED IN PHARMACEUTICAL WASTE CONTAINER, NORCO TABLET WASTED IN CONTROLLED SUBSTANCE WASTE CONTAINER WITH NARGIS MARSH RN WITNESS.
--- NOTE | 2024-09-05 22:53 | ED.RN ---
This nurse witnessed Whitney Doherty RN waste narcotic tablet sent from patient's snf.
--- NOTE | 2024-09-05 22:54 | PCM.HP.STD ---
[facility] - General General Date of Admission: 09/05/24 Date of Service: 09/05/24 Chief Complaint: Palpitations. HPI Narrative ABIMAEL MALDONADO, is a 74 F with a past medical history of essential hypertension; on metoprolol and furosemide, hyperlipidemia; on rosuvastatin, hypothyroidism; on replacement, overweight; with BMI of 26.8 this admission, RIVKA; on CPAP, former tobacco abuse (quit 1988), history of asthma (since age 25); on montelukast, fluticasone and prn albuterol, DM-2; on empagliflozin and glipizide, diabetic neuropathy and fibromyalgia; on gabapentin TID/HS, paroxysmal atrial fibrillation; on apixaban followed by [facility], history of TIA (2020), history of ADD, history of migraine headaches; on prn Excedrin q. 6 hours, history of folate deficiency; on replacement, history of Right shoulder surgery x 3, history of LINH-BSO, history of cholecystectomy, history of appendectomy, history of IBS; primarily of constipation-type on linaclotide, GERD; on esomeprazole, depression with anxiety; on trazodone, history of muscle spasms; on prn tizanidine, osteoporosis and OA; with chronic back pain syndrome on hydrocodone-acetaminophen TID who presents to [facility] ER complaining of palpitations. Ms. Maldonado reports her acute symptoms began at ~1:00 PM today with the abrupt-onset of palpitations that have been persistent since that time so she decided to come in for further evaluation and treatment. She admits to intermittently going in and out of atrial fibrillation for the past few days. She also endorses a history of generalized weakness and SEYMOUR that are typical of her previous bouts of atrial fibrillation; with RVR. She denies associated chest pain, fever, chills, nausea, vomiting, diarrhea, constipation, abdominal pain, chest pain, lower extremity edema, headache or rash. In the ER she was noted to have EKG evidence of Atrial Fibrillation; with RVR at ~140 bpm and she was then admitted to the PCU under observation status for ongoing care for a stay that is expected to be less than 2 midnights. [facility] Medical History Atelectasis Wears glasses Depression Anxiety Easy bruising TIA (transient ischemic attack) Difficulty swallowing Chronic cough Former smoker CPAP (continuous positive airway pressure) dependence History of echocardiogram History of stress test Cardiology follow-up encounter Acute sinusitis, unspecified Paroxysmal atrial fibrillation Essential hypertension IBS (irritable bowel syndrome) Type 2 diabetes mellitus without complication, with long-term current use of insulin Osteopenia Intractable back pain Insomnia Hypothyroidism GERD (gastroesophageal reflux disease) Folic acid deficiency Fibromyalgia Chronic fatigue syndrome ADD (attention deficit disorder) SOB (shortness of breath) Arthritis Asthma Atrial fibrillation Home Medications ?Medication ?Instructions ?Recorded ?Last Taken ?Type thyroid (pork) 60 mg tablet (LAP WINDER 60 mg PO DAILY 01/13/22 Unknown History Thyroid) ascorbate calcium (vitamin C) 500 500 mg PO DAILY 09/15/22 Unknown History mg tablet tlktaxv-foploppxdoqgh-lewcrjmx 250 1 tab PO Q6H PRN pain 09/15/22 Unknown History mg-250 mg-65 mg tablet (Excedrin Migraine) gabapentin 300 mg capsule 600 mg PO TID 09/15/22 Unknown History gabapentin 300 mg capsule 900 mg PO QHS 09/15/22 09/05/24 History multivitamin-ferrous 1 tab PO DAILY 09/15/22 07/16/23 History fumarate-folic acid 18 mg-400 mcg tablet (Centrum Women) albuterol sulfate 90 mcg/actuation 2 puff inhalation Q4H PRN 09/19/22 Unknown Rx aerosol inhaler (Ventolin HFA) shortness of breath or wheezing #18 grams apixaban 5 mg tablet (Eliquis) 5 mg PO BID #60 tabs 06/23/23 08/03/23 Rx metoprolol tartrate 25 mg tablet 12.5 mg PO BID 07/17/23 Unknown History dicyclomine 20 mg tablet 20 mg PO BID #60 tabs 09/18/23 Unknown Rx esomeprazole magnesium 40 mg 40 mg PO QDAY #90 caps 04/10/24 Unknown Rx capsule,delayed release linaclotide 290 mcg capsule 290 mcg PO QAM #90 caps 04/10/24 Unknown Rx (Linzess) acetaminophen 325 mg tablet 650 mg PO Q4H PRN fever or pain 06/04/24 Unknown History buprenorphine 10 mcg/hour weekly 1 patch topical QWEEK 06/04/24 08/31/24 History transdermal patch dimenhydrinate 50 mg tablet 50 mg PO ONCE PRN nausea and 06/04/24 Unknown History (Dramamine) vomiting empagliflozin 25 mg tablet 25 mg PO QDAY 06/04/24 Unknown History (Jardiance) furosemide 40 mg tablet (Lasix) 40 mg PO QDAY PRN SOB, Edema 06/04/24 Unknown History glipizide 2.5 mg tablet, extended 2.5 mg PO QDAY 06/04/24 09/05/24 History release 24 hr hydrocodone-acetaminophen 5-325mg 1 tab PO TID 06/04/24 09/05/24 History 5mg-325mg ipratropium 0.5 mg-albuterol 3 mg 3 ml inhalation Q6H PRN shortness 06/04/24 Unknown History (2.5 mg base)/3 mL nebulization of breath or wheezing soln levomefolate 7.5 mg-algal oil 1 cap PO QDAY 06/04/24 Unknown History 90.314 mg capsule (Deplin (algal oil)) magnesium oxide 400 mg PO QDAY 06/04/24 Unknown History simethicone 80 mg chewable tablet 80 mg PO 4-6XD PRN abdominal 06/04/24 Unknown History (Gas Relief (simethicone)) distention tizanidine 2 mg capsule 4 mg PO QHS 06/04/24 Unknown History trazodone 150 mg tablet 300 mg PO QHS 06/04/24 Unknown History aluminum-mag hydroxide-simethicone 30 ml PO Q4H PRN dyspepsia 07/26/24 Unknown History 200 mg-200 mg-20 mg/5 mL oral susp dextrose 40 % oral gel (Glucose 10 g PO Q15M PRN hypoglycemia 07/26/24 Unknown History Gel) fluticasone furoate 200 1 inh inhalation Q24H #30 ea 07/26/24 Unknown Rx mcg/actuation blister powder for inhalation (Arnuity Ellipta) magnesium hydroxide 400 mg/5 mL 30 ml PO ONCE PRN stomach upset 07/26/24 Unknown History oral suspension (Milk of Magnesia) ascorbic acid (vitamin C) 500 mg 1 g PO DAILY 09/05/24 Unknown History chewable tablet (Acerola C) diphenhydramine HCl 25 mg capsule 25 mg PO Q4H PRN allergy symptoms 09/05/24 Unknown History (Allergy (diphenhydramine)) fluticasone furoate 200 1 inh inhalation DAILY 09/05/24 Unknown History mcg/actuation blister powder for inhalation montelukast 10 mg tablet 10 mg PO QHS 09/05/24 Unknown History (Singulair) ondansetron HCl 8 mg tablet 8 mg PO Q8H 09/05/24 Unknown History potassium chloride 20 mEq 20 meq PO DAILY PRN supplement 09/05/24 Unknown History tablet,extended release(part/cryst) (Klor-Con M) rosuvastatin 10 mg tablet (Crestor) 10 mg PO QHS 09/05/24 Unknown History tamsulosin 0.4 mg capsule (Flomax) 0.4 mg PO DAILY 09/05/24 Unknown History guaifenesin 1,200 mg tablet, 1,200 mg PO DAILY 09/06/24 09/05/24 History extended release 12 hr (Mucinex) Allergy/AdvReac Type Severity Reaction Status Date / Time Environmental Allergies: Allergy Severe Anaphylaxis Verified 09/05/24 19:34 Uncoded pregabalin (From Lyrica) Allergy Severe Suicidal Verified 09/05/24 19:34 ideations prochlorperazine (From Allergy Severe hallucinati Verified 09/05/24 19:34 Compazine) ons metformin Allergy Unknown stomach Verified 09/05/24 19:34 cramping Sulfa (Sulfonamide Allergy Unknown unknown Verified 09/05/24 19:34 Antibiotics) ketorolac (From Toradol) Allergy Pain in Verified 09/05/24 19:34 joints doxycycline AdvReac Unknown Nausea/Vom/ Verified 09/05/24 19:34 Diarrhea Family History Other Cancer Diabetes Heart disease Surgical History H/O bilateral cataract extraction History of tonsillectomy History of total abdominal hysterectomy and bilateral salpingo-oophorectomy History of cholecystectomy History of colonoscopy History of appendectomy Hx of shoulder surgery Social History household members: none Smoking Status: Former smoker how long ago did patient quit smokin alcohol intake: former year quit: 1995 substance use type: former substance user Date of last use: 1969 ROS ROS Narrative Review of Systems: Constitutional: Patient denies fever or chills. Eyes: Patient denies changes in vision or discharge from eyes. ENT: Patient denies runny nose, sore throat or ear pain. Resp: Patient admits to SEYMOUR with chronic cough. CV: Patient admits to palpitations but she denies chest pain or LE edema. GI: Patient denies abdominal pain, nausea, vomiting, diarrhea or constipation. : Patient denies dysuria or hematuria. MSK: Patient admits to generalized weakness but she denies arthralgias or myalgias. Skin: Patient denies rash, abscess, wounds or jaundice. Psych: Patient denies symptoms of uncontrolled depression or anxiety. Neuro: Patient denies headache, paresthesias or focal neurologic deficits. Allergy: Patient denies lip swelling, tongue swelling or urticaria. Hematology: Patient admits to easy bleeding and bruising on apixaban. Endocrinology: Patient denies polyuria, polydipsia, polyphagia or heat/cold intolerance. 14 point ROS otherwise negative except for positives noted above in HPI. Vital Signs Vital Signs Vital Signs: 09/05/24 19:24 09/05/24 19:25 09/05/24 20:05 Temperature 98.4 F Temperature Source Oral Pulse Rate 140 H Respiratory Rate 19 H Blood Pressure 119/91 H Blood Pressure Mean 100 Pulse Ox 96 Oxygen Delivery Method Room Air Room Air Room Air Oxygen Flow Rate (L/min) 94 09/05/24 20:20 09/05/24 21:00 09/05/24 22:00 Temperature Temperature Source Pulse Rate 134 H 113 H 123 H Respiratory Rate 20 H 18 22 H Blood Pressure 100/64 103/64 97/68 Blood Pressure Mean 76 77 77 Pulse Ox 98 95 97 Oxygen Delivery Method Room Air Room Air Room Air Oxygen Flow Rate (L/min) 09/05/24 22:42 Temperature Temperature Source Pulse Rate 136 H Respiratory Rate 12 Blood Pressure 99/81 H Blood Pressure Mean 87 Pulse Ox 94 Oxygen Delivery Method Oxygen Flow Rate (L/min) Weight Weight: 151 lb 3.794 oz Body Mass Index (BMI) 26.8 Physical Exam Const alert, oriented x3, no apparent distress, average body habitus and healthy appearing General Appearance: cooperative HEENT normocephalic, head/scalp atraumatic, hearing grossly normal bilaterally and moist oral mucous membranes Eyes PERRL and EOMs intact bilaterally Neck no lymphadenopathy and supple Resp normal respiratory effort, no retractions, no use of accessory muscles and clear to auscultation bilaterally Cardio Cardio Narrative: Irregularly irregular. GI normal to inspection, nondistended, normoactive bowel sounds, soft to palpation, non-tender and non-distended Extremity normal to inspection, full ROM and no clubbing, cyanosis or edema Skin Skin Narrative: Patient has no evidence of rash, abscess, wounds or jaundice. Neuro oriented x3, CN's II-XII intact bilaterally, moves all extremities and no focal motor deficits Sensorium / Orientation: awake, alert, oriented to person, oriented to place and oriented to time Speech: speech normal Psych affect normal Results Medical Records Data Attestation: I reviewed the patient's medical records Lab / Micro Data Attestation: I reviewed the patient's lab results. 09/06/24 02:54 09/06/24 02:54 Labs: Laboratory Results - last 24 hr 09/05/24 19:33: WBC 9.4, RBC 4.48, Hgb 13.4, Hct 41.4, MCV 92.4, MCH 29.9, MCHC 32.4, RDW Std Deviation 41.4, RDW Coeff of Dave 12.0, Plt Count 225, MPV 9.4, Immature Gran % (Auto) 0.300, Neut % (Auto) 65.0, Lymph % (Auto) 23.2, Marshall % (Auto) 10.4 H, Eos % (Auto) 0.7, Baso % (Auto) 0.4, Absolute Neuts (auto) 6.1, Absolute Lymphs (auto) 2.18, Nucleated RBC % 0, Sodium 139, Potassium 4.2, Chloride 104, Carbon Dioxide 21.6, Anion Gap 14, BUN 19, Creatinine 1.01, Estim Creat Clear Calc 46.80 L, Est GFR (MDRD) Non-Af 59 L, BUN/Creatinine Ratio 18.3, Glucose 157 H, Calcium 8.7, Troponin T High Sens 13 Rhythm Strip Rhythm Strip: A-fib Rate: 133 Ectopy: None Imaging Radiology Impression Chest X-Ray 09/05/24 20:02 IMPRESSION: No Acute Findings. Reading Location: [facility] Assessment & Plan Assessment/Plan (1) Atrial fibrillation with rapid ventricular response: (2) Chronic anticoagulation: (3) Generalized weakness: (4) Dyspnea on exertion: (5) Essential hypertension: PLAN: Plan 1. Atrial Fibrillation; with RVR at ~140 bpm; recurrent and paroxysmal in nature - Admit to PCU under observation status. We had to stop IV diltiazem begun in the ER due to hypotension so she was treated with one dose of IV digoxin with conversion back to NSR. Resume apixaban as previous. Check TSH and serialize troponin. Give acetaminophen prn for [id number] (level 1-5/10) pain or fever. Finally, we will consult [facility] to see this patient on-rounds in the AM for further recommendations with help appreciated in advance. 2. Generalized Weakness with SEYMOUR due to #1 - PT/OT and Case Management to consult and treat on-rounds in the AM for further recommendations with help appreciated in advance. 3. Essential Hypertension; on metoprolol and furosemide - Maintain current regimen. 4. Hyperlipidemia; on rosuvastatin - Resume statin and check Lipid Profile. 5. Hypothyroidism; on replacement - Continue current therapy plus check TSH. 6. Overweight; with BMI of 26.8 this admission plus RIVKA; on CPAP - Weight loss will be recommended. Resume nocturnal CPAP. 7. Former tobacco abuse (quit 1988) - Noted. 8. History of asthma (since age 25); on montelukast, fluticasone and prn albuterol - Maintain current treatment. 9. DM-2; on empagliflozin and glipizide - Hold oral hypoglycemics. Give ADA/cardiac diet. FSBS q. AC/HS plus lowest-intensity SSI. Check HgbA1c to objectively assess quality of diabetic control. 10. Diabetic neuropathy and fibromyalgia; on gabapentin TID/HS - Continue gabapentin as before. 11. History of TIA (2020) - Noted. 12. History of ADD - Noted with patient currently not on treatment. 13. History of migraine headaches; on prn Excedrin q. 6 hours - Stable with no complaints of headache at this time. 14. History of folate deficiency; on replacement - Check folic acid level and continue replacement. 15. History of Right shoulder surgery x 3 - Noted. 16. History of LINH-BSO - Noted for the sake of completeness. 17. History of cholecystectomy - Noted. 18. History of appendectomy - Noted. 19. History of IBS; primarily of constipation-type on linaclotide - Maintain current treatment. 20. GERD; on esomeprazole - Continue PPI as before. 21. Depression with anxiety; on trazodone - Resume trazodone as previous. 22. History of muscle spasms; on prn tizanidine - Maintain current regimen. 23. Osteoporosis - Stable. 24. OA; with chronic back pain syndrome on hydrocodone-acetaminophen TID - Continue this agent for severe (level 6-10/10) pain. 25. DVT prophylaxis - Patient already on apixaban for #1 which will be continued. Total time: Approximately (but not less than) 70 minutes. Charges/Coding Visit Charges OBSV E&M: 38758 Observ/hosp same date L2
[2024-09-05 23:19] LABS: Troponin T High Sens 2 HR 14 ng/L (<=14)
[2024-09-06] VITALS (9 sets, daily range): BP systolic 85–125; BP diastolic 54–83; PULSE 57–140; RESP 14–18; TEMP 36.2–36.8; O2SAT 93–98; BMI 26.7; BMI 26.8
[2024-09-06] MEDS: Digoxin 250 MCG/ML Ampul IV (00:06)
--- NOTE | 2024-09-06 00:14 | ED.RN ---
Notified Dr. Deleon for pt BP 84/56 HR 140s. Given order to Ford Hussein RN for 250mg digoxin IVP and to discontinue cartcaterinam erma.
[2024-09-06] MEDS: APIXABAN 5 MG TABLET PO ×2 (01:41→10:30)
[2024-09-06] MEDS: traZODone 100 MG Tablet 300 MG PO (01:42)
[2024-09-06] MEDS: Metoprolol Tartrate 25 MG Tablet 12.5 MG PO ×2 (01:43→10:30)
[2024-09-06] MEDS: Tamsulosin HCl 0.4 MG Capsule PO (01:43)
[2024-09-06 01:46] LABS: Bedside Glucose 132 mg/dL (74-106)
[2024-09-06] MEDS: Montelukast 10 MG Tablet PO (01:46)
[2024-09-06] MEDS: tiZANidine HCl 2 MG Tablet 4 MG PO (01:46)
[2024-09-06] MEDS: Gabapentin 300 MG Capsule 900 MG PO (01:52)
[2024-09-06] MEDS: 0.9% Normal Saline (1000mL) 1,000 ML 50 ML IV (01:54)
[2024-09-06 02:15] LABS: Hemoglobin A1c 6.7 % (<=5.6)
[2024-09-06 03:30] LABS: Basophil# 0.05 X10^3/uL; Basophil% 0.6 % (0-1); Eosinophil# 0.07 X10^3/uL; Eosinophils% 0.8 % (0-5); Hematocrit 38.1 % (37-47); Hemoglobin 12.3 g/dL (12.0-15.0); Lymphocyte % 18.6 % (19-41); Mean Corp Hgb Conc 32.3 g/dL (32-36); Mean Corpuscular Hgb 29.4 pg (27.0-32.0); Mean Corpuscular Volume 91.1 fL (81-99); Mean Platelet Vol. 9.1 fl (6.2-12.0); Monocyte# 0.83 X10^3/uL; Monocyte% 9.7 % (0-10); NRBC Flagged by Analyzer 0 % (0-5); Neutrophil # 6.01 X10^3/uL (2.7-7.7); Neutrophil % 70.1 % (47-70); Platelet Count 206 K/mm3 (150-450); RBC Distribution Width CV 12.1 % (11.6-14.6); RBC Distribution Width SD 40.6 fl (35.1-43.9); Red Blood Count 4.18 M/mm3 (4.2-5.4); White Blood Count 8.6 K/mm3 (4.4-11.0)
[2024-09-06 03:36] LABS: Troponin T High Sens 4 HR 14 ng/L (<=14)
[2024-09-06 05:40] LABS: AST(SGOT) 17 U/L (<=31); Alanine Aminotransfer ALT/SGPT 19 U/L (<=34); Albumin, Serum 3.1 g/dL (3.4-4.8); Alkaline Phosphatase 77 U/L (35-104); Anion Gap 11 (5-15); BUN 19 mg/dL (4-19); BUN/Creat Ratio 24.7 RATIO (10-20); Calcium,Total 8.1 mg/dL (7.6-11.0); Carbon Dioxide 22.2 mmol/L (21.0-32.0); Chloride 107 mmol/L (98-108); Creatinine, Serum 0.77 mg/dL (0.70-1.20); EST Glomerular Filtration Rate 82 (>60); Estimated Creatinine Clearance 56.82 ml/min (50-250); Globulin 1.6 g/dL (2.2-4.2); Glucose 146 mg/dL (70-99); Potassium 4.2 mmol/L (3.3-5.1); Protein, Total 4.7 g/dL (5.9-8.4); Sodium Level 141 mmol/L (133-145); Total Bilirubin < 0.15 mg/dL (0.00-1.30)
[2024-09-06 06:06] LABS: Cholesterol 129 mg/dL (<=200); High Density Lipoprotein 58 mg/dL; Low Density Lipoprotein Calc. 59 mg/dL; Phosphorus 2.8 mg/dL (2.7-4.5); Triglycerides 63 mg/dL; Very Low Density Lipoprotein 13 mg/dL (5-40); cholesterol:hdl ratio screen 2.24
[2024-09-06 06:45] LABS: Bedside Glucose 122 mg/dL (74-106)
[2024-09-06] MEDS: HYDROcodone Bitartrate/Apap 5/325 Tablet PO ×2 (08:06→14:35)
[2024-09-06] MEDS: Gabapentin 600 MG Tablet PO ×3 (08:06→16:28)
[2024-09-06] MEDS: Pantoprazole Sodium 40 MG Tablet PO (08:07)
[2024-09-06] MEDS: Thyroid 60 MG Tablet PO (08:07)
[2024-09-06] MEDS: Dicyclomine 10 MG Capsule 20 MG PO (08:07)
--- NOTE | 2024-09-06 09:05 | PCM.CONS.C ---
Documented by User: Jodie ISBELL, PA 09/06/24 09:15 Assessment & Plan Assessment/Plan (1) Chronic anticoagulation: (2) Atrial fibrillation with rapid ventricular response: HPI Consult Data Date of Consult: 09/06/24 HPI Narrative HPI Narrative: ABIMAEL MALDONADO, is a 74 F who presented to [facility] yesterday with atrial fibrillation with RVR. Troponins were negative. Patient's heart rates were in the 140s. She was given IV diltiazem however she became hypotensive. She was then given 1 dose of digoxin and she did convert to normal sinus rhythm. She has a cardiac history of hypertension and paroxysmal atrial fibrillation. She had undergone a dobutamine stress echo in November of 2021 which was noted to be normal. She did have a 14-day event monitor placed which demonstrated a minimum heart rate of 49 bpm and maximum of 240 bpm which was an atrial tachycardia and an average heart rate of 81 bpm in sinus rhythm. Atrial fibrillation burden occurred at approximately 1%. Echocardiogram in July 2024 demonstrated a preserved ejection fraction of 60%. Mildly calcified aortic root. She currently resides at [facility]. [facility] Medical History Atelectasis Wears glasses Depression Anxiety Easy bruising TIA (transient ischemic attack) Difficulty swallowing Chronic cough Former smoker CPAP (continuous positive airway pressure) dependence History of echocardiogram History of stress test Cardiology follow-up encounter Acute sinusitis, unspecified Paroxysmal atrial fibrillation Essential hypertension IBS (irritable bowel syndrome) Type 2 diabetes mellitus without complication, with long-term current use of insulin Osteopenia Intractable back pain Insomnia Hypothyroidism GERD (gastroesophageal reflux disease) Folic acid deficiency Fibromyalgia Chronic fatigue syndrome ADD (attention deficit disorder) SOB (shortness of breath) Arthritis Asthma Atrial fibrillation Home Medications ?Medication ?Instructions ?Recorded ?Last Taken ?Type thyroid (pork) 60 mg tablet (DRAFTER MARINE 60 mg PO DAILY 01/13/22 Unknown History Thyroid) ascorbate calcium (vitamin C) 500 500 mg PO DAILY 09/15/22 Unknown History mg tablet qxooqaz-ddehchlvbstxe-btypxecb 250 1 tab PO Q6H PRN pain 09/15/22 Unknown History mg-250 mg-65 mg tablet (Excedrin Migraine) gabapentin 300 mg capsule 600 mg PO TID 09/15/22 Unknown History gabapentin 300 mg capsule 900 mg PO QHS 09/15/22 09/05/24 History multivitamin-ferrous 1 tab PO 1700 Supplement 09/15/22 07/16/23 History fumarate-folic acid 18 mg-400 mcg tablet (Centrum Women) albuterol sulfate 90 mcg/actuation 2 puff inhalation Q4H PRN 09/19/22 Unknown Rx aerosol inhaler (Ventolin HFA) shortness of breath or wheezing #18 grams apixaban 5 mg tablet (Eliquis) 5 mg PO BID #60 tabs 06/23/23 08/03/23 Rx metoprolol tartrate 25 mg tablet 12.5 mg PO BID 07/17/23 Unknown History dicyclomine 20 mg tablet 20 mg PO BID #60 tabs 09/18/23 Unknown Rx linaclotide 290 mcg capsule 290 mcg PO QAM #90 caps 04/10/24 Unknown Rx (Linzess) acetaminophen 325 mg tablet 650 mg PO Q4H PRN fever or pain 06/04/24 Unknown History buprenorphine 10 mcg/hour weekly 1 patch topical QWEEK 06/04/24 08/31/24 History transdermal patch dimenhydrinate 50 mg tablet 50 mg PO ONCE PRN nausea and 06/04/24 Unknown History (Dramamine) vomiting empagliflozin 25 mg tablet 25 mg PO QDAY 06/04/24 Unknown History (Jardiance) furosemide 40 mg tablet (Lasix) 40 mg PO QDAY PRN SOB, Edema 06/04/24 Unknown History glipizide 2.5 mg tablet, extended 2.5 mg PO QDAY 06/04/24 09/05/24 History release 24 hr hydrocodone-acetaminophen 5-325mg 1 tab PO TID 06/04/24 09/05/24 History 5mg-325mg ipratropium 0.5 mg-albuterol 3 mg 3 ml inhalation Q6H PRN shortness 06/04/24 Unknown History (2.5 mg base)/3 mL nebulization of breath or wheezing soln levomefolate 7.5 mg-algal oil 1 cap PO QDAY 06/04/24 Unknown History 90.314 mg capsule (Deplin (algal oil)) magnesium oxide 400 mg PO QHS Supplement 06/04/24 Unknown History simethicone 80 mg chewable tablet 80 mg PO 4-6XD PRN abdominal 06/04/24 Unknown History (Gas Relief (simethicone)) distention tizanidine 2 mg capsule 4 mg PO QHS 06/04/24 Unknown History trazodone 150 mg tablet 300 mg PO QHS 06/04/24 Unknown History aluminum-mag hydroxide-simethicone 30 ml PO Q4H PRN dyspepsia 07/26/24 Unknown History 200 mg-200 mg-20 mg/5 mL oral susp dextrose 40 % oral gel (Glucose 10 g PO Q15M PRN hypoglycemia 07/26/24 Unknown History Gel) fluticasone furoate 200 1 inh inhalation Q24H #30 ea 07/26/24 Unknown Rx mcg/actuation blister powder for inhalation (Arnuity Ellipta) magnesium hydroxide 400 mg/5 mL 30 ml PO ONCE PRN stomach upset 07/26/24 Unknown History oral suspension (Milk of Magnesia) ascorbic acid (vitamin C) 500 mg 1 g PO 1700 Supplement 09/05/24 Unknown History chewable tablet (Acerola C) diphenhydramine HCl 25 mg capsule 25 mg PO Q4H PRN allergy symptoms 09/05/24 Unknown History (Allergy (diphenhydramine)) fluticasone furoate 200 1 inh inhalation DAILY 09/05/24 Unknown History mcg/actuation blister powder for inhalation montelukast 10 mg tablet 10 mg PO QHS 09/05/24 Unknown History (Singulair) ondansetron HCl 8 mg tablet 8 mg PO Q8H 09/05/24 Unknown History potassium chloride 20 mEq 20 meq PO DAILY PRN supplement 09/05/24 Unknown History tablet,extended release(part/cryst) (Klor-Con M) rosuvastatin 10 mg tablet (Crestor) 10 mg PO QHS 09/05/24 Unknown History tamsulosin 0.4 mg capsule (Flomax) 0.4 mg PO DAILY 09/05/24 Unknown History esomeprazole magnesium 40 mg 40 mg PO DAILY Supplement 09/06/24 Unknown History capsule,delayed release guaifenesin 1,200 mg tablet, 1,200 mg PO DAILY 09/06/24 09/05/24 History extended release 12 hr (Mucinex) Allergy/AdvReac Type Severity Reaction Status Date / Time Environmental Allergies: Allergy Severe Anaphylaxis Verified 09/05/24 19:34 Uncoded pregabalin (From Lyrica) Allergy Severe Suicidal Verified 09/05/24 19:34 ideations prochlorperazine (From Allergy Severe hallucinati Verified 09/05/24 19:34 Compazine) ons metformin Allergy Unknown stomach Verified 09/05/24 19:34 cramping Sulfa (Sulfonamide Allergy Unknown unknown Verified 09/05/24 19:34 Antibiotics) ketorolac (From Toradol) Allergy Pain in Verified 09/05/24 19:34 joints doxycycline AdvReac Unknown Nausea/Vom/ Verified 09/05/24 19:34 Diarrhea Family History Other Cancer Diabetes Heart disease Surgical History H/O bilateral cataract extraction History of tonsillectomy History of total abdominal hysterectomy and bilateral salpingo-oophorectomy History of cholecystectomy History of colonoscopy History of appendectomy Hx of shoulder surgery Social History household members: none Smoking Status: Former smoker how long ago did patient quit smokin alcohol intake: former year quit: 1995 substance use type: former substance user Date of last use: 1969 ROS ROS Narrative Review of Systems: Constitutional: Patient denies fever or chills. Eyes: Patient denies changes in vision or discharge from eyes. ENT: Patient denies runny nose, sore throat or ear pain. Resp: Patient admits to [facility] with chronic cough. CV: Patient admits to palpitations but she denies chest pain or LE edema. GI: Patient denies abdominal pain, nausea, vomiting, diarrhea or constipation. : Patient denies dysuria or hematuria. MSK: Patient admits to generalized weakness but she denies arthralgias or myalgias. Skin: Patient denies rash, abscess, wounds or jaundice. Psych: Patient denies symptoms of uncontrolled depression or anxiety. Neuro: Patient denies headache, paresthesias or focal neurologic deficits. Hematology: Patient admits to easy bleeding and bruising on apixaban. Risk Stratification Risk Stratification Applicable: No Objective Data Vital Signs: Vital Signs Temp Pulse Resp BP Pulse Ox O2 Del Method O2 Flow Rate 97.1 F L 57 L 18 116/65 93 Room Air 94 09/06/24 07:06 09/06/24 07:06 09/06/24 07:06 09/06/24 07:06 09/06/24 07:06 09/06/24 08:10 09/05/24 20:05 Oxygen Flow Rate (L/min) 94 Oxygen Delivery Method Room Air Weight: 146 lb 13.246 oz Body Mass Index (BMI) 26.8 Intake & Output: Intake and Output for Last 24 Hours 09/04/24 09/05/24 09/06/24 23:59 23:59 23:59 Intake Total 753.17 / 759.84 315.84 / 315.84 Output Total 500 / 500 Balance 753.17 / 759.84 -184.16 / -184.16 Lab / Micro Data 09/06/24 02:54 09/06/24 02:54 Labs: Laboratory Results - last 24 hr 09/05/24 19:13: Hemoglobin A1c 6.7 09/05/24 19:33: WBC 9.4, RBC 4.48, Hgb 13.4, Hct 41.4, MCV 92.4, MCH 29.9, MCHC 32.4, RDW Std Deviation 41.4, RDW Coeff of Dave 12.0, Plt Count 225, MPV 9.4, Immature Gran % (Auto) 0.300, Neut % (Auto) 65.0, Lymph % (Auto) 23.2, Cascade % (Auto) 10.4 H, Eos % (Auto) 0.7, Baso % (Auto) 0.4, Absolute Neuts (auto) 6.1, Absolute Lymphs (auto) 2.18, Nucleated RBC % 0, Sodium 139, Potassium 4.2, Chloride 104, Carbon Dioxide 21.6, Anion Gap 14, BUN 19, Creatinine 1.01, Estim Creat Clear Calc 46.80 L, Est GFR (MDRD) Non-Af 59 L, BUN/Creatinine Ratio 18.3, Glucose 157 H, Calcium 8.7, Troponin T High Sens 13 09/05/24 22:16: Magnesium 2.0, Troponin T Hi Sens 2 Hr 14, TSH 1.550 09/06/24 00:12: Serum Folate 19.00 09/06/24 01:27: POC Glucose 132 H 09/06/24 02:54: WBC 8.6, RBC 4.18 L, Hgb 12.3, Hct 38.1, MCV 91.1, MCH 29.4, MCHC 32.3, RDW Std Deviation 40.6, RDW Coeff of Dave 12.1, Plt Count 206, MPV 9.1, Immature Gran % (Auto) 0.200, Neut % (Auto) 70.1 H, Lymph % (Auto) 18.6 L, Cascade % (Auto) 9.7, Eos % (Auto) 0.8, Baso % (Auto) 0.6, Absolute Neuts (auto) 6.0, Absolute Lymphs (auto) 1.60, Nucleated RBC % 0, Sodium 141, Potassium 4.2, Chloride 107, Carbon Dioxide 22.2, Anion Gap 11, BUN 19, Creatinine 0.77, Estim Creat Clear Calc 56.82, Est GFR (MDRD) Non-Af 82, BUN/Creatinine Ratio 24.7 H, Glucose 146 H, Calcium 8.1, Phosphorus 2.8, Total Bilirubin < 0.15, AST 17, ALT 19, Alkaline Phosphatase 77, Troponin T Hi Sens 4Hr 14, Total Protein 4.7 L, Albumin 3.1 L, Globulin 1.6 L, Albumin/Globulin Ratio 2.0, Triglycerides 63, Cholesterol 129, LDL Cholesterol, Calc 59, VLDL Cholesterol 13, HDL Cholesterol 58, Cholesterol/HDL Ratio 2.24 09/06/24 06:24: POC Glucose 122 H Rhythm Strip Rhythm Strip: A-fib Rate: 133 Ectopy: None Cardiology Labs/Tests 09/05/24 19:13: Hemoglobin A1c 6.7 09/05/24 19:33: WBC 9.4, RBC 4.48, Hgb 13.4, Hct 41.4, MCV 92.4, MCH 29.9, MCHC 32.4, Plt Count 225, MPV 9.4, Immature Gran % (Auto) 0.300, Neut % (Auto) 65.0, Lymph % (Auto) 23.2, Cascade % (Auto) 10.4 H, Eos % (Auto) 0.7, Baso % (Auto) 0.4, Absolute Neuts (auto) 6.1, Nucleated RBC % 0, Sodium 139, Potassium 4.2, Chloride 104, Carbon Dioxide 21.6, Anion Gap 14, BUN 19, Creatinine 1.01, Est GFR (MDRD) Non-Af 59 L, BUN/Creatinine Ratio 18.3, Glucose 157 H, Calcium 8.7 09/05/24 22:16: Magnesium 2.0 09/06/24 02:54: WBC 8.6, RBC 4.18 L, Hgb 12.3, Hct 38.1, MCV 91.1, MCH 29.4, MCHC 32.3, Plt Count 206, MPV 9.1, Immature Gran % (Auto) 0.200, Neut % (Auto) 70.1 H, Lymph % (Auto) 18.6 L, Cascade % (Auto) 9.7, Eos % (Auto) 0.8, Baso % (Auto) 0.6, Absolute Neuts (auto) 6.0, Nucleated RBC % 0, Sodium 141, Potassium 4.2, Chloride 107, Carbon Dioxide 22.2, Anion Gap 11, BUN 19, Creatinine 0.77, Est GFR (MDRD) Non-Af 82, BUN/Creatinine Ratio 24.7 H, Glucose 146 H, Calcium 8.1, Phosphorus 2.8, Total Bilirubin < 0.15, Triglycerides 63, Cholesterol 129, VLDL Cholesterol 13, HDL Cholesterol 58, Cholesterol/HDL Ratio 2.24 Rhythm: EKG: ECHO: Stress Test: Cardiac Cath: PCI: CT Surgery: Holter monitor: EPS: PPM: CXR: Chest CT Scan: Radiography Diagnostic Testing: Radiology Impression Chest X-Ray 09/05/24 20:02 IMPRESSION: No Acute Findings. Reading Location: [id number] Documented by User: Dr. John Fofana MD 09/06/24 13:19 Assessment & Plan Assessment/Plan (1) Chronic anticoagulation: (2) Atrial fibrillation with rapid ventricular response: PLAN: Plan 74-year-old patient Brought into ED from assisted-living facility With palpitation Noted patient is in atrial fibrillation with rapid ventricular rate Started on diltiazem which dropped her blood pressure And subsequently given digoxin and converted to normal sinus rhythm She is known to have history of paroxysmal A-fib and she was on anticoagulation with Eliquis As well she follow-up with her primary dye feeder at [facility] 1 Other medical problem include history of GERD Obstructive sleep apnea Essential hypertension Cardiac care plan; Patient has been in sinus rhythm and stable clinically She can be discharged With the plan of follow-up with her primary dye feeder for continuation of cardiac care. HPI Consult Data Date of Consult: 09/06/24 [facility] Medical History Atelectasis Wears glasses Depression Anxiety Easy bruising TIA (transient ischemic attack) Difficulty swallowing Chronic cough Former smoker CPAP (continuous positive airway pressure) dependence History of echocardiogram History of stress test Cardiology follow-up encounter Acute sinusitis, unspecified Paroxysmal atrial fibrillation Essential hypertension IBS (irritable bowel syndrome) Type 2 diabetes mellitus without complication, with long-term current use of insulin Osteopenia Intractable back pain Insomnia Hypothyroidism GERD (gastroesophageal reflux disease) Folic acid deficiency Fibromyalgia Chronic fatigue syndrome ADD (attention deficit disorder) SOB (shortness of breath) Arthritis Asthma Atrial fibrillation Home Medications ?Medication ?Instructions ?Recorded ?Last Taken ?Type thyroid (pork) 60 mg tablet (DRAFTER MARINE 60 mg PO DAILY 01/13/22 Unknown History Thyroid) ascorbate calcium (vitamin C) 500 500 mg PO DAILY 09/15/22 Unknown History mg tablet lvlksac-nawugoboyyjnm-lneenvev 250 1 tab PO Q6H PRN pain 09/15/22 Unknown History mg-250 mg-65 mg tablet (Excedrin Migraine) gabapentin 300 mg capsule 600 mg PO TID 09/15/22 Unknown History gabapentin 300 mg capsule 900 mg PO QHS 09/15/22 09/05/24 History multivitamin-ferrous 1 tab PO 1700 Supplement 09/15/22 07/16/23 History fumarate-folic acid 18 mg-400 mcg tablet (Centrum Women) albuterol sulfate 90 mcg/actuation 2 puff inhalation Q4H PRN 09/19/22 Unknown Rx aerosol inhaler (Ventolin HFA) shortness of breath or wheezing #18 grams apixaban 5 mg tablet (Eliquis) 5 mg PO BID #60 tabs 06/23/23 08/03/23 Rx metoprolol tartrate 25 mg tablet 12.5 mg PO BID 07/17/23 Unknown History dicyclomine 20 mg tablet 20 mg PO BID #60 tabs 09/18/23 Unknown Rx linaclotide 290 mcg capsule 290 mcg PO QAM #90 caps 04/10/24 Unknown Rx (Linzess) acetaminophen 325 mg tablet 650 mg PO Q4H PRN fever or pain 06/04/24 Unknown History buprenorphine 10 mcg/hour weekly 1 patch topical QWEEK 06/04/24 08/31/24 History transdermal patch dimenhydrinate 50 mg tablet 50 mg PO ONCE PRN nausea and 06/04/24 Unknown History (Dramamine) vomiting empagliflozin 25 mg tablet 25 mg PO QDAY 06/04/24 Unknown History (Jardiance) furosemide 40 mg tablet (Lasix) 40 mg PO QDAY PRN SOB, Edema 06/04/24 Unknown History glipizide 2.5 mg tablet, extended 2.5 mg PO QDAY 06/04/24 09/05/24 History release 24 hr hydrocodone-acetaminophen 5-325mg 1 tab PO TID 06/04/24 09/05/24 History 5mg-325mg ipratropium 0.5 mg-albuterol 3 mg 3 ml inhalation Q6H PRN shortness 06/04/24 Unknown History (2.5 mg base)/3 mL nebulization of breath or wheezing soln levomefolate 7.5 mg-algal oil 1 cap PO QDAY 06/04/24 Unknown History 90.314 mg capsule (Deplin (algal oil)) magnesium oxide 400 mg PO QHS Supplement 06/04/24 Unknown History simethicone 80 mg chewable tablet 80 mg PO 4-6XD PRN abdominal 06/04/24 Unknown History (Gas Relief (simethicone)) distention tizanidine 2 mg capsule 4 mg PO QHS 06/04/24 Unknown History trazodone 150 mg tablet 300 mg PO QHS 06/04/24 Unknown History aluminum-mag hydroxide-simethicone 30 ml PO Q4H PRN dyspepsia 07/26/24 Unknown History 200 mg-200 mg-20 mg/5 mL oral susp dextrose 40 % oral gel (Glucose 10 g PO Q15M PRN hypoglycemia 07/26/24 Unknown History Gel) fluticasone furoate 200 1 inh inhalation Q24H #30 ea 07/26/24 Unknown Rx mcg/actuation blister powder for inhalation (Arnuity Ellipta) magnesium hydroxide 400 mg/5 mL 30 ml PO ONCE PRN stomach upset 07/26/24 Unknown History oral suspension (Milk of Magnesia) ascorbic acid (vitamin C) 500 mg 1 g PO 1700 Supplement 09/05/24 Unknown History chewable tablet (Acerola C) diphenhydramine HCl 25 mg capsule 25 mg PO Q4H PRN allergy symptoms 09/05/24 Unknown History (Allergy (diphenhydramine)) fluticasone furoate 200 1 inh inhalation DAILY 09/05/24 Unknown History mcg/actuation blister powder for inhalation montelukast 10 mg tablet 10 mg PO QHS 09/05/24 Unknown History (Singulair) ondansetron HCl 8 mg tablet 8 mg PO Q8H 09/05/24 Unknown History potassium chloride 20 mEq 20 meq PO DAILY PRN supplement 09/05/24 Unknown History tablet,extended release(part/cryst) (Klor-Con M) rosuvastatin 10 mg tablet (Crestor) 10 mg PO QHS 09/05/24 Unknown History tamsulosin 0.4 mg capsule (Flomax) 0.4 mg PO DAILY 09/05/24 Unknown History esomeprazole magnesium 40 mg 40 mg PO DAILY Supplement 09/06/24 Unknown History capsule,delayed release guaifenesin 1,200 mg tablet, 1,200 mg PO DAILY 09/06/24 09/05/24 History extended release 12 hr (Mucinex) Allergy/AdvReac Type Severity Reaction Status Date / Time Environmental Allergies: Allergy Severe Anaphylaxis Verified 09/05/24 19:34 Uncoded pregabalin (From Lyrica) Allergy Severe Suicidal Verified 09/05/24 19:34 ideations prochlorperazine (From Allergy Severe hallucinati Verified 09/05/24 19:34 Compazine) ons metformin Allergy Unknown stomach Verified 09/05/24 19:34 cramping Sulfa (Sulfonamide Allergy Unknown unknown Verified 09/05/24 19:34 Antibiotics) ketorolac (From Toradol) Allergy Pain in Verified 09/05/24 19:34 joints doxycycline AdvReac Unknown Nausea/Vom/ Verified 09/05/24 19:34 Diarrhea Family History Other Cancer Diabetes Heart disease Surgical History H/O bilateral cataract extraction History of tonsillectomy History of total abdominal hysterectomy and bilateral salpingo-oophorectomy History of cholecystectomy History of colonoscopy History of appendectomy Hx of shoulder surgery Social History household members: none Smoking Status: Former smoker how long ago did patient quit smokin alcohol intake: former year quit: 1995 substance use type: former substance user Date of last use: 1969 Physical Exam Cardio Cardio Narrative: Patient seen and evaluated and examined in the progressive care unit Review of the cardiac telemetry showed normal sinus rhythm She had an episode of atrial fibrillation on admission Cardiac exam essentially normal S1-S2 is regular Chest exam clear to auscultation bilateral Examination lower extremity no lower extremity edema. Lab / Micro Data 09/06/24 02:54 09/06/24 02:54
--- NOTE | 2024-09-06 09:29 | CASEMGMT ---
Discharge Planning Per clary Springer resides at [facility]. SW updated. Rosalia Paulino DC Planning Asst.
[2024-09-06] MEDS: guaiFENesin 1,200 MG Tablet 1200 MG PO (10:30)
[2024-09-06] MEDS: Empagliflozin 25 MG Tablet PO (10:30)
--- NOTE | 2024-09-06 11:14 | CASEMGMT ---
Discharge Planning Updates sent to [facility] with not that pt could possibly return today. Rosalia Paulino DC Planning Asst
--- NOTE | 2024-09-06 11:45 | CASEMGMT ---
Per physician patient plans on returning to [facility] at d/c. Patient also said she will need transportation back. Mary BEASLEY
[2024-09-06] MEDS: Insulin Lispro 100 UNIT/ML INSULN.PEN SC (12:02)
[2024-09-06 12:11] LABS: Bedside Glucose 232 mg/dL (74-106)
--- NOTE | 2024-09-06 13:33 | PCM.DC.SUM ---
Providers Date of Admission: 09/05/24 Date of Discharge: 09/06/24 Primary Care Physician: Dr. Dajuan Eric MD Consultations 09/06/24 00:33 Consult: Cardiology Routine Consulting Provider: [facility] Reason for Consult: AFIB; with RVR - recurrent and paroxysmal in nature. EMERGENT Consult: No MD Notified: Yes Date Notified: 09/06/24 Time Notified: 07:10 Method of Notification: Text Method of Consult:: In-Person Reason For Visit: AFIB WITH RVR, RECURRENT & PAROXMYSMAL IN Diagnosis Discharge Diagnosis (1) Chronic anticoagulation: Status: Acute Code(s): Z79.01 - prison (current) use of anticoagulants (2) Atrial fibrillation with rapid ventricular response: Status: Acute Code(s): I48.91 - Unspecified atrial fibrillation Medications at Discharge Home Medications thyroid (pork) 60 mg tablet (PIERCING MACHINE OPERATOR Thyroid) 60 mg PO DAILY 01/13/22 ascorbate calcium (vitamin C) 500 mg tablet 500 mg PO DAILY 09/15/22 flllmzq-ksxuklipkonfw-nkdsiici 250 mg-250 mg-65 mg tablet (Excedrin Migraine) 1 tab PO Q6H PRN pain 09/15/22 gabapentin 300 mg capsule 600 mg PO TID 09/15/22 gabapentin 300 mg capsule 900 mg PO QHS 09/15/22 multivitamin-ferrous fumarate-folic acid 18 mg-400 mcg tablet (Centrum Women) 1 tab PO 1700 Supplement 09/15/22 albuterol sulfate 90 mcg/actuation aerosol inhaler (Ventolin HFA) 2 puff inhalation Q4H PRN shortness of breath or wheezing #18 grams 09/19/22 apixaban 5 mg tablet (Eliquis) 5 mg PO BID #60 tabs 06/23/23 metoprolol tartrate 25 mg tablet 12.5 mg PO BID 07/17/23 dicyclomine 20 mg tablet 20 mg PO BID #60 tabs 09/18/23 linaclotide 290 mcg capsule (Linzess) 290 mcg PO QAM #90 caps 04/10/24 acetaminophen 325 mg tablet 650 mg PO Q4H PRN fever or pain 06/04/24 buprenorphine 10 mcg/hour weekly transdermal patch 1 patch topical QWEEK 06/04/24 dimenhydrinate 50 mg tablet (Dramamine) 50 mg PO ONCE PRN nausea and vomiting 06/04/24 empagliflozin 25 mg tablet (Jardiance) 25 mg PO QDAY 06/04/24 furosemide 40 mg tablet (Lasix) 40 mg PO QDAY PRN SOB, Edema 06/04/24 glipizide 2.5 mg tablet, extended release 24 hr 2.5 mg PO QDAY 06/04/24 hydrocodone-acetaminophen 5-325mg 5mg-325mg 1 tab PO TID 06/04/24 ipratropium 0.5 mg-albuterol 3 mg (2.5 mg base)/3 mL nebulization soln 3 ml inhalation Q6H PRN shortness of breath or wheezing 06/04/24 levomefolate 7.5 mg-algal oil 90.314 mg capsule (Deplin (algal oil)) 1 cap PO QDAY 06/04/24 magnesium oxide 400 mg PO QHS Supplement 06/04/24 simethicone 80 mg chewable tablet (Gas Relief (simethicone)) 80 mg PO 4-6XD PRN abdominal distention 06/04/24 tizanidine 2 mg capsule 4 mg PO QHS 06/04/24 trazodone 150 mg tablet 300 mg PO QHS 06/04/24 aluminum-mag hydroxide-simethicone 200 mg-200 mg-20 mg/5 mL oral susp 30 ml PO Q4H PRN dyspepsia 07/26/24 dextrose 40 % oral gel (Glucose Gel) 10 g PO Q15M PRN hypoglycemia 07/26/24 fluticasone furoate 200 mcg/actuation blister powder for inhalation (Arnuity Ellipta) 1 inh inhalation Q24H #30 ea 07/26/24 magnesium hydroxide 400 mg/5 mL oral suspension (Milk of Magnesia) 30 ml PO ONCE PRN stomach upset 07/26/24 ascorbic acid (vitamin C) 500 mg chewable tablet (Acerola C) 1 g PO 1700 Supplement 09/05/24 diphenhydramine HCl 25 mg capsule (Allergy (diphenhydramine)) 25 mg PO Q4H PRN allergy symptoms 09/05/24 fluticasone furoate 200 mcg/actuation blister powder for inhalation 1 inh inhalation DAILY 09/05/24 montelukast 10 mg tablet (Singulair) 10 mg PO QHS 03/27/25 ondansetron HCl 8 mg tablet 8 mg PO Q8H 09/05/24 potassium chloride 20 mEq tablet,extended release(part/cryst) (Klor-Con M) 20 meq PO DAILY PRN supplement 09/05/24 rosuvastatin 10 mg tablet (Crestor) 10 mg PO QHS 09/05/24 tamsulosin 0.4 mg capsule (Flomax) 0.4 mg PO DAILY 09/05/24 esomeprazole magnesium 40 mg capsule,delayed release 40 mg PO DAILY Supplement 09/06/24 guaifenesin 1,200 mg tablet, extended release 12 hr (Mucinex) 1,200 mg PO DAILY 09/06/24 Hospital Course Operations None Procedures EKG and - (Chest x-ray) Summary of Care Provided Minutes Spent on Discharge: 25 Hospital Course: Mrs. Nielsen is a 19-year-old female who presented emergency department [facility] on 09/05/2024 with a chief complaint of palpitations. Patient has a history of atrial fibrillation with RVR and is on metoprolol and Eliquis at baseline. She reported she began having palpitations about 1 PM and they did not go away so she decided to present to the emergency department. It was abrupt onset. She feels that she has been intermittently going in and out of atrial fibrillation for the past few days. She also complained of generalized weakness and some dyspnea on exertion when she was having her palpitations. She denied chest pain. EKG in the emergency department showed A-fib with RVR with a heart rate of about 140 bpm. Vital signs otherwise showed a temperature of 98.4, respiratory rate is 19, blood pressure was 119/91, and pulse ox of 96% on room air. CBC was unremarkable. Chemistry panel was unremarkable. Liver functions were normal. Lipids were normal. TSH 1.55. Folate was 19. Chest x-ray was unremarkable. She was initially placed on a Cardizem drip in the emergency department however this dropped her blood pressure. She was given a one-time dose of digoxin which helped bring her blood pressure down and then she spontaneously converted back to normal sinus rhythm. Cardiology was consulted and felt no changes were required at this time and she could be discharged back home on her's same medications. She will need follow-up with cardiology within the next 1 to 2 weeks and that this was indicated on her discharge paperwork. Patient is to call Monday to set up an appointment. I have also asked that she follow-up with her primary care physician within the next 1 to 2 weeks. Patient was able to be discharged home in stable condition on 09/06/2024. Discharge diagnoses: A-fib with RVR-resolved History of paroxysmal atrial fibrillation Shortness of breath-resolved Fatigue-resolved Chronic anticoagulation for A-fib Essential hypertension Hyperlipidemia Hypothyroidism History of tobacco abuse Asthma DM-2 Diabetic neuropathy Fibromyalgia TIA History of ADD Migraine headaches History IBS GERD Depression/anxiety Osteoporosis Physical Exam Const alert, oriented x3, no apparent distress, no limitations and well nourished Constitutional Narrative: Overweight, older, white female, sitting up in bed, appears comfortable, nontoxic, nursing at bedside General Appearance: cooperative, comfortable, well kempt and well developed Exam Limitations: no limitations Nutritional Appearance: overweight HEENT normocephalic, hearing grossly normal bilaterally and moist oral mucous membranes HEENT Narrative: Dentition is poor, Mallampati 2, no thrush Resp normal respiratory effort, no retractions, no use of accessory muscles and clear to auscultation bilaterally Auscultation: Negative for rales, rhonchi or wheezes Cardio regular rate, regular rhythm, S1 normal heart sound, S2 normal heart sound, no murmurs, no rub, no gallops and no clicks GI normal to inspection, nondistended, normoactive bowel sounds, soft to palpation and non-tender Extremity no clubbing, cyanosis or edema Extremity Narrative: Pedal and radial pulses are 2+ Neuro oriented x3, moves all extremities and no focal motor deficits Speech: speech normal Psych affect normal Psych Narrative: Very pleasant, eye contact is good, patient interacts appropriately Weight / BMI Weight Weight: 66.6 kg Body Mass Index (BMI) 26.8 ABG / Lab / Microbiology Data 09/06/24 02:54 09/06/24 02:54 Laboratory: Laboratory Results - last 24 hr 09/05/24 19:13: Hemoglobin A1c 6.7 09/05/24 19:33: WBC 9.4, RBC 4.48, Hgb 13.4, Hct 41.4, MCV 92.4, MCH 29.9, MCHC 32.4, RDW Std Deviation 41.4, RDW Coeff of Dave 12.0, Plt Count 225, MPV 9.4, Immature Gran % (Auto) 0.300, Neut % (Auto) 65.0, Lymph % (Auto) 23.2, Sharp % (Auto) 10.4 H, Eos % (Auto) 0.7, Baso % (Auto) 0.4, Absolute Neuts (auto) 6.1, Absolute Lymphs (auto) 2.18, Nucleated RBC % 0, Sodium 139, Potassium 4.2, Chloride 104, Carbon Dioxide 21.6, Anion Gap 14, BUN 19, Creatinine 1.01, Estim Creat Clear Calc 46.80 L, Est GFR (MDRD) Non-Af 59 L, BUN/Creatinine Ratio 18.3, Glucose 157 H, Calcium 8.7, Troponin T High Sens 13 09/05/24 22:16: Magnesium 2.0, Troponin T Hi Sens 2 Hr 14, TSH 1.550 09/06/24 00:12: Serum Folate 19.00 09/06/24 01:27: POC Glucose 132 H 09/06/24 02:54: WBC 8.6, RBC 4.18 L, Hgb 12.3, Hct 38.1, MCV 91.1, MCH 29.4, MCHC 32.3, RDW Std Deviation 40.6, RDW Coeff of Dave 12.1, Plt Count 206, MPV 9.1, Immature Gran % (Auto) 0.200, Neut % (Auto) 70.1 H, Lymph % (Auto) 18.6 L, Sharp % (Auto) 9.7, Eos % (Auto) 0.8, Baso % (Auto) 0.6, Absolute Neuts (auto) 6.0, Absolute Lymphs (auto) 1.60, Nucleated RBC % 0, Sodium 141, Potassium 4.2, Chloride 107, Carbon Dioxide 22.2, Anion Gap 11, BUN 19, Creatinine 0.77, Estim Creat Clear Calc 56.82, Est GFR (MDRD) Non-Af 82, BUN/Creatinine Ratio 24.7 H, Glucose 146 H, Calcium 8.1, Phosphorus 2.8, Total Bilirubin < 0.15, AST 17, ALT 19, Alkaline Phosphatase 77, Troponin T Hi Sens 4Hr 14, Total Protein 4.7 L, Albumin 3.1 L, Globulin 1.6 L, Albumin/Globulin Ratio 2.0, Triglycerides 63, Cholesterol 129, LDL Cholesterol, Calc 59, VLDL Cholesterol 13, HDL Cholesterol 58, Cholesterol/HDL Ratio 2.24 09/06/24 06:24: POC Glucose 122 H 09/06/24 11:48: POC Glucose 232 H Radiography Diagnostic Testing: Radiology Impression Chest X-Ray 09/05/24 20:02 IMPRESSION: No Acute Findings. Reading Location: [facility] D/C Instructions Discharge Diet: Low fat / Low cholesterol and 1800 Calorie Control Diet Discharge Activity: Return to Normal Activity DC O2, CPAP, BIPAP Needs Home O2 Discharge instructions: No Meaningful Use Info Meaningful Use Meaningful Use Diagnoses (Choose all that apply): None applicable Ischemic Stroke Statin Dosing Therapy Reference: STATIN DOSE THERAPY REFERENCE: * Patients > 75 years receive moderate or high dose statin therapy. * Patients 75 years or YOUNGER should receive HIGH intensity statin dose unless contraindicated. You will be required to document reason for non-treatment if statin daily dose does not meet guidelines. HIGH DOSE STATIN THERAPY DAILY Atorvastatin > than or = to 40 mg Rosuvastatin > than or = to 20 mg Amlodipine + Atorvastatin > than or = to 2.5/40 mg Ezetimibe + Simvastatin 10/80 mg Simvastatin 80mg Discharge Plan Admission Admit Date/Time: 09/05/24 23:40 Primary Reason for Your Visit: Palpitations Attending Provider: Karine Naranjo Primary Care Provider: Dajuan Eric Consulting Providers: Jairo Ram; Morena Cruz; Judd Higgins; Dorita Mcmanus; Vidal Wang; Gio Villalba; John Fofana; Donis Schmitz; Sae Tam; Harry Guzman; Kendall Jack; Anthony Juarez NP; Jodie Whitaker PA; Arvin Verdin Instructions Additional Instructions / Restrictions: 1. At cardiology did not recommend any changes in medication at this time 2. Please follow-up with cardiology as noted below if you have any more symptoms please call the office Discharge Orders/Prescriptions Prescriptions: Continued thyroid (pork) [PIERCING MACHINE OPERATOR Thyroid] 60 mg tablet 60 mg PO DAILY gabapentin 300 mg capsule 600 mg PO TID gabapentin 300 mg capsule 900 mg PO QHS Centrum Women 18-400 mg-mcg tablet 1 tab PO 1700 Excedrin Migraine 250-250-65 mg tablet 1 tab PO Q6H PRN (Reason: pain) ascorbate calcium (vitamin C) 500 mg tablet 500 mg PO DAILY dimenhydrinate [Dramamine] 50 mg tablet 50 mg PO ONCE PRN (Reason: nausea and vomiting) hydrocodone-acetaminophen 5-325 mg tablet 1 tab PO TID Patient Comments: TAKE 1 TABLET BY MOUTH TWICE DAILY FOR 28 DAYS trazodone 150 mg tablet 300 mg PO QHS albuterol sulfate [Ventolin HFA] 90 mcg/actuation HFA aerosol inhaler 2 puff inhalation Q4H PRN (Reason: shortness of breath or wheezing) Qty: 18 6RF Eliquis 5 mg tablet 5 mg PO BID Qty: 60 11RF furosemide [Lasix] 40 mg tablet 40 mg PO QDAY PRN (Reason: SOB, Edema) dextrose [Glucose Gel] 40 % gel 10 g PO Q15M PRN (Reason: hypoglycemia) Rx Instructions: until symptoms of low blood sugar are controlled magnesium hydroxide [Milk of Magnesia] 400 mg/5 mL suspension 30 ml PO ONCE PRN (Reason: stomach upset) alum-mag hydroxide-simeth 200-200-20 mg/5 mL suspension 30 ml PO Q4H PRN (Reason: dyspepsia) Arnuity Ellipta 200 mcg/actuation blister with device 1 inh inhalation Q24H Qty: 30 5RF acetaminophen 325 mg tablet 650 mg PO Q4H PRN (Reason: fever or pain) buprenorphine 10 mcg/hour patch weekly 1 patch topical QWEEK Patient Comments: next dose on monday Deplin (algal oil) 7.5-90.314 mg capsule 1 cap PO QDAY glipizide 2.5 mg tablet extended release 24hr 2.5 mg PO QDAY ipratropium-albuterol 0.5 mg-3 mg(2.5 mg base)/3 mL solution for nebulization 3 ml inhalation Q6H PRN (Reason: shortness of breath or wheezing) Jardiance 25 mg tablet 25 mg PO QDAY magnesium oxide 400 mg magnesium tablet 400 mg PO QHS simethicone [Gas Relief (simethicone)] 80 mg tablet,chewable 80 mg PO 4-6XD PRN (Reason: abdominal distention) tizanidine 2 mg capsule 4 mg PO QHS Linzess 290 mcg capsule 290 mcg PO QAM Qty: 90 3RF metoprolol tartrate 25 mg tablet 12.5 mg PO BID fluticasone furoate 200 mcg/actuation blister with device 1 inh inhalation DAILY ascorbic acid (vitamin C) [Acerola C] 500 mg tablet,chewable 1 g PO 1700 diphenhydramine HCl [Allergy (diphenhydramine)] 25 mg capsule 25 mg PO Q4H PRN (Reason: allergy symptoms) rosuvastatin [Crestor] 10 mg tablet 10 mg PO QHS tamsulosin [Flomax] 0.4 mg capsule 0.4 mg PO DAILY potassium chloride [Klor-Con M20] 20 mEq tablet,ER particles/crystals 20 meq PO DAILY PRN (Reason: supplement) Patient Comments: only when pt takes lasix. montelukast [Singulair] 10 mg tablet 10 mg PO QHS ondansetron HCl 8 mg tablet 8 mg PO Q8H Rx Instructions: 1st dose 1-2 hr before radiation guaifenesin [Mucinex] 1,200 mg tablet extended release 12hr 1,200 mg PO DAILY esomeprazole magnesium 40 mg capsule,delayed release(DR/EC) 40 mg PO DAILY dicyclomine 20 mg tablet 20 mg PO BID Qty: 60 6RF Referrals / Follow Up: Dajuan Eric MD [Primary Care Provider] - Jodie Whitaker PA [Med Staff - [facility] Practice Prof] - 09/26/24 1:30 pm Disposition Disposition (needs filled in before D/C Order can be placed): Home, Self Care Charges/Coding Visit Charges Inpatient E&M: 15168 Disch Hosp
--- NOTE | 2024-09-06 14:26 | CASEMGMT ---
SHAHRAM met with patient and confirmed her plans is to return to [facility]. Patient does need transport. SHAHRAM asked Rosalia to check in with [facility] to see if they can molded goods spot picker patient and if not could she set up transport. Mary Mayo FIREWORKS ASSEMBLY SUPERVISOR RAMOS
--- NOTE | 2024-09-06 14:48 | CASEMGMT ---
Discharge Planning Discharge summary and transport time sent to [facility]. [facility] will transport pt by wheelchair at 5:30. Pt states that she will update her family. SW and nursing updated. Rosalia Paulino DC Planning Asst.
[2024-09-06 14:55] LABS: Bedside Glucose 139 mg/dL (74-106)
--- NOTE | 2024-09-06 15:28 | CHAPLAIN ---
Type of Pastoral Visit _x__ Initial Visit ___ Follow-up Visit ___ On-call Visit ___ General Patient Visit ___ Spiritual Assessment ___ Family Conference ___ Bereavement ___ Rapid Response ___ Code Blue ___ Other (describe below) Pastoral Care Referral From _x__ Patient ___ Family ___ Nurse ___ Physician ___ Mixing Picker Tender ___ Civil Preparedness Officer ___ Other (describe below) Sacrament/Intervention _x__ Active listening ___ Anointing ___ Yazidi ___ Bereavement ___ Communion _x__ Cami exploration ___ _x__ Life review _x__ Prayer ___ Reconciliation ___ Sacrament of Sick ___ Supportive presence ___ Wedding ___ Other (describe below) Pastoral Comments patient gives some life review and speaks of how much better she is feeling today than yesterday; pt is expecting to be discharged and is looking forward to returning to her group home community; pt has a strong cami in God and this provides her with encouragement and strength; pt is given presence, time to be heard, and prayer
--- NOTE | 2024-09-06 15:55 | NURSING ---
Called Jean Garcia in attempt to give report on patient. No answer, voicemail left at this time.
--- NOTE | 2024-09-06 18:41 | NURSING ---
Report called to ROHIT Xiao. [facility] here to transport patient back to [facility] at this time.
== END 2024-09-06 14:05 | disposition home or self-care (01) ==
LOC: ED 22:54 → PCU 09-06 00:02
PROVIDERS: Admitting Provider Internal Medicine; Emergency Provider Emergency Medicine; PCP Internal Medicine; Visit Provider Internal Medicine
DX: I48.91 Unspecified atrial fibrillation (principal); E11.40 Type 2 diabetes mellitus with diabetic neuropathy, unspecified; M79.7 Fibromyalgia; G47.00 Insomnia, unspecified; E66.3 Overweight; I95.9 Hypotension, unspecified; E78.5 Hyperlipidemia, unspecified; M54.9 Dorsalgia, unspecified; G89.29 Other chronic pain; I10 Essential (primary) hypertension; Z68.26 Body mass index [BMI] 26.0-26.9, adult; I47.19 Other supraventricular tachycardia; E03.9 Hypothyroidism, unspecified; J45.909 Unspecified asthma, uncomplicated; M81.0 Age-related osteoporosis without current pathological fracture; G43.909 Migraine, unspecified, not intractable, without status migrainosus; K58.0 Irritable bowel syndrome with diarrhea; K21.9 Gastro-esophageal reflux disease without esophagitis; G47.33 Obstructive sleep apnea (adult) (pediatric); F32.A Depression, unspecified; F41.9 Anxiety disorder, unspecified; Z79.01 Long term (current) use of anticoagulants; Z79.84 Long term (current) use of oral hypoglycemic drugs; Z79.890 Hormone replacement therapy; Z86.73 Personal history of transient ischemic attack (TIA), and cerebral infarction without residual deficits; Z87.891 Personal history of nicotine dependence
CPT/HCPCS: 36415; 71045; 80048; 80053; 80061; 82746; 82962; 83036; 83735; 84100; 84443; 84484; 85025; 93005; 94640; 94668; 96365; 96366; 96375; 96376; 97161; 99221; 99285; A4216; G0378

== ENCOUNTER → 2024-09-17 10:45 | Outpatient (REF) | payer MEDICARE, MEDICAID, SELFPAY ==
[2024-09-18 08:05] LABS: Bacteria 0 SEEN /hpf (None Seen); Mucous, Urine 0 SEEN /hpf (<or=2+); Red Blood Cells-Urine 0 SEEN /hpf (0-5); Squamous Epithelial Cells - UA 0 SEEN /hpf (5-10)
[2024-09-18 09:46] LABS: Color, Urine Yellow (Yellow); Glucose, Dipstick 1000 mg/dl (Normal); Ketone-Dipstick Negative (Negative); Leukocyte Esterase-Dipstick 25 /ul (Negative); Nitrite-Dipstick Negative (Negative); Occult Blood-Urine Negative /ul (Negative); Protein-Dipstick 15 mg/dl (Negative); Urine Bilirubin Dipstick Negative (Negative); Urine Clarity Clear (Clear); Urine Urobilinogen Normal (Normal)
[2024-09-18 10:52] LABS: White Blood Cells 0-5 SEEN /hpf (0-5)
== END ==
LOC: OLS.SWAL 10:45
PROVIDERS: PCP Internal Medicine; Visit Provider Internal Medicine
DX: N39.0 Urinary tract infection, site not specified (principal)
CPT/HCPCS: 81001; 87086

== ENCOUNTER → 2024-10-03 | Outpatient (CLI) | payer MEDICARE, MEDICAID, SELFPAY ==
[2024-10-03 13:10] LABS: Amphetamine Urine NEGATIVE (<1000 ng/mL); Barbiturate Urine NEGATIVE (< 200 ng/mL); Benzodiazepine Urine NEGATIVE (< 200 ng/mL); Buprenorphine Urine NEGATIVE (< 200 ng/mL); Cocaine Urine NEGATIVE (< 300 ng/mL); Fentanyl, Urine NEGATIVE; Methadone Urine NEGATIVE (< 300 ng/mL); Opiates Urine PRESUMPTIVE POSITIVE (< 300 ng/mL); Oxycodone, Urine NEGATIVE (< 100 ng/mL); PCP Urine NEGATIVE (< 25 ng/mL); THC Urine NEGATIVE (< 50 ng/mL)
== END | disposition home or self-care (01) ==
LOC: LAB 11:07
PROVIDERS: PCP Internal Medicine; Referring Provider Anesthesiology Pain Medicine; Visit Provider Anesthesiology Pain Medicine
DX: F11.20 Opioid dependence, uncomplicated (principal)
CPT/HCPCS: 80307

== ENCOUNTER → 2024-12-18 | Outpatient (CLI) | payer MEDICARE, MEDICAID, SELFPAY ==
--- NOTE | 2024-12-18 07:59 | CT_ITS ---
PROCEDURE: BRAIN/HEAD WITHOUT CONTRAST 12/18/2024 REASON FOR EXAM: DIZZINESS TECHNIQUE: BRAIN/HEAD WITHOUT CONTRAST Coronal and Sagittal reconstruction series were provided. One or more dose reduction techniques were used (e.g., Automated exposure control, adjustment of the mA and/or kV according to patient size, use of iterative reconstruction technique. RADIATION DOSE SUMMARY: CTDlvol: 44.99 mGy DLP: 812.98 mGycm COMPARISON: None FINDINGS: Brain: Low density in the periventricular white matter suggests mild chronic small vessel ischemic changes. CSF Spaces: Mild generalized cerebral atrophy Sinuses/Mastoids: 10.4 mm polyp or retention cyst in the anterior aspect of the left sphenoid sinus. Bones: Unremarkable CT/Brain/Head without Contrast IMPRESSION: CHRONIC CHANGES. NO ACUTE FINDINGS. Reading Location: [place] [id number]
== END | disposition home or self-care (01) ==
LOC: CT 07:57
PROVIDERS: PCP Internal Medicine; Referring Provider Internal Medicine; Visit Provider Internal Medicine
DX: R47.89 Other speech disturbances (principal); R42 Dizziness and giddiness
CPT/HCPCS: 70450

== ENCOUNTER → 2025-03-02 | Outpatient (REF) | payer MEDICARE, MEDICAID, SELFPAY ==
[2025-03-06 08:41] LABS: Mucous, Urine 0 SEEN /hpf (<or=2+); Red Blood Cells-Urine 0 SEEN /hpf (0-5)
[2025-03-06 09:29] LABS: Color, Urine Yellow (Yellow); Glucose, Dipstick 1000 mg/dl (Normal); Ketone-Dipstick Negative (Negative); Leukocyte Esterase-Dipstick 25 /ul (Negative); Nitrite-Dipstick Negative (Negative); Occult Blood-Urine Negative /ul (Negative); Protein-Dipstick 15 mg/dl (Negative); Specific Gravity, Urine 1.010 (1.002-1.030); Urine Bilirubin Dipstick Negative (Negative)
[2025-03-06 09:37] LABS: Squamous Epithelial Cells - UA 0-5 SEEN /hpf (5-10)
== END ==
LOC: OLS.SWAL 18:30
PROVIDERS: PCP Internal Medicine; Visit Provider Internal Medicine
DX: N39.0 Urinary tract infection, site not specified (principal)
CPT/HCPCS: 81001; 87077; 87086; 87088; 87186

== ENCOUNTER 2025-03-14 00:01 | Emergency (ER) | payer MEDICARE, MEDICAID, SELFPAY ==
[2025-03-14] VITALS (10 sets, daily range): BP systolic 91–132; BP diastolic 50–76; PULSE 48–84; RESP 12–25; TEMP 36.6; O2SAT 91–100; BMI 25.6
[2025-03-14] MEDS: 0.9% Normal Saline (1000mL) 1,000 ML 999 ML IV (00:36)
[2025-03-14 00:40] LABS: Hematocrit 39.0 % (37-47); Hemoglobin 12.3 g/dL (12.0-15.0); Immature Granulocytes Count 0.030 X10^3/uL (0.0-0.0); Mean Corp Hgb Conc 31.5 g/dL (32-36); Mean Corpuscular Volume 92.0 fL (81-99); Mean Platelet Vol. 9.1 fl (6.2-12.0); NRBC Flagged by Analyzer 0 % (0-5); Platelet Count 179 K/mm3 (150-450); RBC Distribution Width CV 12.7 % (11.6-14.6); RBC Distribution Width SD 42.6 fl (35.1-43.9); Red Blood Count 4.24 M/mm3 (4.2-5.4); White Blood Count 7.9 K/mm3 (4.4-11.0)
--- OUTSIDE RECORDS SUMMARY | 2025-03-14 01:03 | XMS RPT_ITS | CCD ---
Author Organization [facility] Care Team Providers Care Furniture Repair Technician Name Role Phone Unavailable Primary Care Provider Dajuan Chadwick MD Primary Care Provider Dr. Dajuan Eric Primary Care Provider Dr. Gio Villalba Attending Provider [phone] Dajuan Eric MD Primary Care Provider Dajuan Eric MD Primary Care Provider Dr. Dajuan Eric Primary Care Provider Dr. Dajuan Eric Referring Provider Dr. Berry Blas Attending Provider Daya BAG WORKER.TECHNICAL SERVICES COORDINATOR, Taylor E Unavailable Dr. Dajuan Eric Primary Care Provider Dr. Dajuan Eric Referring Provider Dr. Berry Blas Attending Provider Dr. Dajuan Eric Primary Care Provider Dr. Dajuan Eric Referring Provider Dr. Berry Blas Attending Provider David PREDATOR CONTROL TRAPPER, BEATRIZ Wade Attending Provider Dr. Gio Villalba Attending Provider Dr. Gio Villalba Referring Provider Duncan PREDATOR CONTROL TRAPPER, PREDATOR CONTROL TRAPPER-C Karen Attending Provider Dr. Dajuan Eric Primary Care Provider Dr. Dajuan Eric Referring Provider Lawanda ISBELL PA Wade Ferro Attending Provider Dr. Rafi Arshad Attending Provider Dr. Dajuan Eric Primary Care Provider Dr. Dajuan Eric Referring Provider Lawanda ISBELL PA Wade Ferro Attending Provider Hernesto, Dr. Graff Primary Care Provider Hernesto, Dr. Graff Referring Provider Duncan BYRD, PREDATOR CONTROL TRAPPER-C Karen Attending Provider Dr. Saji Parker Attending Provider Dr. Gio Villalba Attending Provider Dr. Andrae Seaman Attending Provider Dajuan Eric MD Primary Care Provider Unavailable Primary Care Provider Unavailleti Nix APRN.GLO, Kayce M Unavailable Dr. Dajuan Eric MD Primary Care Provider Dajuan Eric MD Attending Provider Unavaila ble Dr. Dajuan Eric MD Referring Provider Roof PREDATOR CONTROL TRAPPER-C, Anthony H Attending Provider Ann PREDATOR CONTROL TRAPPER-C, Anthony H Referring Provider Di Jefferson Attending Provider Dr. Saji Parker MD Attending Provider Dr. Gio Villalba MD Attending Provider Tiff BYRD-CChio Attending Provider Tiff BYRD-CChio Referring Provider Fili WELSH Dr. Nicolás Emergency Provider de Lew DO, Dr. Gill Admit Provider Unavail able de Lew AUGUST, Dr. Gill Attending Provider Unav ailable de Lew AUGUST, Dr. Gill Other Provider Unavail able Jose A AUGUST, Dr. Milton Attending Provider Anthony WELSH, Dr. Berg Other Provider Unavailable Ronaldo WELSH, Dr. Whaley Other Provider Yonathan WELSH, Dr. Kevin Other Provider Felipe WELSH, Dr. Drake Other Provider Orly WELSH, Dr. Powers Other Provider Ct WELSH, Dr. Lopez Other Provider Nadir WELSH, Dr. Dykes Other Provider Yonatan WELSH, Dr. Quevedo Other Provider Megan WELSH, Dr. Mcdonald Other Provider Marcie WELSH, Dr. Argueta Other Provider Roof PREDATOR CONTROL TRAPPER-C, Anthony H Other Provider Jodie Couch Other Provider Arvin Rosado Other Provider Jose A AUGUST, Dr. Milotn Other Provider Hernesto WELSH, Dr. Graff Primary Care Provider Herensto WELSH, Dr. Graff Referring Provider Roof PREDATOR CONTROL TRAPPER-C, Anthony H Attending Provider Roof PREDATOR CONTROL TRAPPER-C, Anthony H Referring Provider Dajuan Eric MD Attending Provider Unavaila sandhya Eric MD, Dajuan Referring Provider Unavaila ble Jose A AUGUST, Dr. Milton Other Provider Ct WELSH, Dr. Lopez Attending Provider Jodie Couch Attending Provider Raul WELSH, Dr. Joiner Attending Provider Raul WELSH, Dr. Joiner Referring Provider Hernesto WELSH, Dr. Graff Primary Care Provider Hernesto WELSH, Dr. Graff Referring Provider Roof PREDATOR CONTROL TRAPPER-C, Anthony Kamran Attending Provider Roof PREDATOR CONTROL TRAPPER-C, Anthony Kamran Referring Provider [facility] PREDATOR CONTROL TRAPPER-C, Chio Ferro Attending Provider Jeancarlos AUGUST, Dr. Mckee Attending Provider Ct WELSH, Dr. Lopez Other Provider Ct WELSH, Dr. Lopez Attending Provider Wallace Giles MD Attending Provider Orly WELSH, Dr. Powers Attending Provider Di Jefferson Attending Provider Hernesto WELSH, Dr. Graff Attending Provider HERNESTO, DAJUAN Andrew Primary Care Unavailable EZIO, HONEY Referring Unavailable ERIC, GUEVARA Primary Care Unavailable KNOBLE, HONEY Referring Unavailable ERIC, GUEVARA Primary Care Unavailable GEORGIAOBLE, HONEY Attending Unavailable ERIC, GUEVARA Referring Unavailable ERIC, GUEVARA Primary Care Unavailable ERIC, GUEVARA Attending Unavailable ERIC, GUEVARA Primary Care Unavailable ERIC, GUEVARA Attending Unavailable ERIC, GUEVARA Primary Care Unavailable ERIC, GUEVARA Attending Unavailable ERIC, GUEVARA Primary Care Unavailable ERIC, GUEVARA Primary Care Unavailable ERIC, GUEVARA Primary Care Unavailable KAYCE NIX Referring Unavailable ERIC, DAJUAN Andrew Attending Unavailable ERIC, GUEVARA Primary Care Unavailable ERIC, GUEVARA Attending Unavailable ERIC, GUEVARA Primary Care Unavailable ERIC, GUEVARA Primary Care Unavailable Hernesto WELSH, Dr. Graff Primary Care Physician Hernesto WELSH, Dr. Graff Referring Provider Wallace Giles MD Attending Physician Orly WELSH, Dr. Powers Attending Physician Di Jefferson Attending Physician [phone] Hernesto WELSH, Dr. Graff Attending Physician Ann PREDATOR CONTROL TRAPPER-C, Anthony Andrew Attending Physician Dajuan Barba Attending Unavailabl e Eric, Dajuan Primary Care Unavailable Eric, Dajuan Primary Care Unavailable Saji Parker Attending Unavailable Karine Naranjo Attending Unavailable Eric, Dajuan Primary Care Unavailable Jairo Ram Consulting Unavailable Jairo Ram Admitting Unavailable Amro, Ahmed Consulting Unavailable Mostafa, Judd Consulting Unavailable Yonathan, Dorita Consulting Unavailable Vidal Wang Consulting Unavailable Orly, Lawnside Consulting Unavailable Belbabak, Adityaouk Consulting Unavailable Donis Schmitz Consulting Unavailable PhillipaPhillip oglesbyapradee Consulting UnavailLizette Olivonivasa Consulting Unavailable Kendall Jack Consulting Unavailable Ann PREDATOR CONTROL TRAPPER, Anthony Andrew Consulting Unavailable Jodie Couch Consulting Unavail able Arvin Verdin Consulting Unavailable Dajuan Barba Referring Unavailleti e Hernesto HALE, Dajuan Attending Unavailabl e Eric, Dajuan Primary Care Unavailable Roof PREDATOR CONTROL TRAPPER, Anthony Andrew Referring Unavailable Ann PREDATOR CONTROL TRAPPER, Anthony Andrew Attending Unavailable Eric, Dajuan Primary Care Unavailable Marisel Carter Referring Unavailable Eric, Dajuan Primary Care Unavailable Marisel Carter Attending Unavailable Gio Villalba Attending Unavailable Eric, Dajuan Primary Care Unavailable Chio Matthew Referring Unavailable Rafi Arshad Attending Unavailable Eric, Dajuan Primary Care Unavailable Eric, Dajuan Primary Care Unavailable Eric, Dajuan Referring Unavailable Saji Parker Attending Unavailable Karine Naranjo Attending Unavailable Jairo Ram Admitting Unavailable Eric, Dajuan Primary Care Unavailable Jairo Ram Consulting Unavailable Amrmaria ines, Ahmed Consulting Unavailable Mostafa, Judd Consulting Unavailable Yonathan, Dorita Consulting Unavailable Vidal Wang Consulting Unavailable Orly, Gio Consulting Unavailable Belal, Farouk Consulting Unavailable Donis Schmitz Consulting Unavailable Nagajothi, Nagapradee Consulting Unavailabl e Satmari, Harry Consulting Unavailable Kendall Jack Consulting Unavailable Roof PREDATOR CONTROL TRAPPER, Anthony Andrew Consulting Unavailable Julianne ISBELL, Jodie Ferro Consulting Unavail able Arvin Verdin Consulting Unavailable Karine Naranjo Consulting Unavailable Eric OLS, Dajuan Attending Unavailabl e Eric, Dajuan Primary Care Unavailable Chio Matthew Attending Unavailable Chio Matthew Referring Unavailable Eric, Dajuan Primary Care Unavailable Eric, Dajuan Primary Care Unavailable Eric Dajuan HALE Attending Unavailabl e Roof PREDATOR CONTROL TRAPPER, Anthony Andrew Referring Unavailable Roof PREDATOR CONTROL TRAPPER, Anthony Andrew Attending Unavailable Eric, Dajuan Primary Care Unavailable Roof PREDATOR CONTROL TRAPPER, Anthony Andrew Attending Unavailable Eric, Dajuan Primary Care Unavailable Eric, Dajuan Referring Unavailable Eric, Dajuan Primary Care Unavailable Eric, Dajuan Referring Unavailable Saji Parker Attending Unavailable Eric, Dajuan Primary Care Unavailable Eric, Dajuan Referring Unavailable iD Nina Attending Unavailable Eric, Dajuan Primary Care Unavailable Di Nina Attending Unavailable EricDajuan espinosa Referring Unavailable Roof PREDATOR CONTROL TRAPPER, Anthony Andrew Attending Unavailable Eric, Dajuan Primary Care Unavailable Eric, Dajuan Referring Unavailable Eric, Dajuan Primary Care Unavailable Eric, Dajuan Referring Unavailable Chio Matthew Attending Unavailable Roof PREDATOR CONTROL TRAPPER, Anthony Andrew Referring Unavailable Roof PREDATOR CONTROL TRAPPER, Anthony Andrew Attending Unavailable Eric, Dajuan Primary Care Unavailable Eric, Victor Attending Unavailable Eric, Dajuan Primary Care Unavailable EricDajuan espinosa Referring Unavailable BasaliMarisel Referring Unavailable BasalMarisel martinez Attending Unavailable Eric, Dajuan Primary Care Unavailable John Fofana Attending Unavailable Jairo Ram Attending Unavailable Gio Villalba Attending Unavailable Eric, Dajuan Primary Care Unavailable Roof PREDATOR CONTROL TRAPPER, Anthony Andrew Attending Unavailable Dajuan Eric Referring Unavailable Eric, Dajuan Primary Care Unavailable Gio Villalba Attending Unavailable Eric, Dajuan Primary Care Unavailable Eric, Dajuan Referring Unavailable Wallace Giles Attending Unavailable Eric, Dajuan Primary Care Unavailable Di Nina Attending Unavailable Eric, Dajuan Primary Care Unavailable Eric, Dajuan Referring Unavailable Julianne ISBELL, Jodie Ferro Attending Unavail able Dajuan Eric Referring Unavailable Dajuan Eric Primary Care Unavailable Dajuan Eric Referring Unavailable Hernesto, Dajuan Primary Care Unavailable Jodie Couch Attending Unavail able Chio Matthew Referring Unavailable Hernesto, Dajuan Primary Care Unavailable Chio Matthew Attending Unavailable Dajuan Eric Primary Care Unavailable Dajuan Eric Referring Unavailable Chio Matthew Attending Unavailable Allergies Allergy Classification Reported Allergen(s) Allergy Type Date of Onset Reaction(s) Facility (20 sources) Sulfonamides (Antibiotic); Translations: [SULFA (SULFONAMIDE ANTIBIOTICS)] Drug Allergy 04-21-20 21 Anaphylaxis [facility] (20 sources) Sulfonamides (Antibiotic) Allergy to substance 10-14-19 22 unknown [facility] (20 sources) Prochlorperazine; Translations: [PROCHLORPERAZINE] Drug Allergy 09-24-19 23 Mental Status Change [facility] (20 sources) Ketorolac; Translations: [KETOROLAC] Drug Allergy 12-22-19 23 Other: See Comments [facility] (20 sources) pregabalin; Translations: [PREGABALIN] Drug Allergy 12-27-19 23 Mental Status Change [facility] (20 sources) Mosquitos; Translations: [MOSQUITOS] Allergy to substance 05-25-20 23 Anaphylaxis [facility] (20 sources) metFORMIN; Translations: [METFORMIN] Drug Allergy 09-22-19 24 GI Upset [facility] (10 sources) Doxycycline Drug Allergy 08-28-19 25 Nausea/Vom/Danyelle rrhea [facility] (11 sources) Environmental Allergies: Uncoded; Translations: [Environmental Allergies: Uncoded] Allergy to substance 08-28-19 25 Anaphylaxis [facility] Comment on above: Certain mosquitoes (1 source) Doxycycline Drug Allergy 02-28-20 25 [facility] (1 source) Ketorolac Drug Allergy 02-28-20 25 [facility] (1 source) metFORMIN Drug Allergy 02-28-20 25 [facility] (1 source) pregabalin Drug Allergy 02-28-20 25 [facility] (1 source) Prochlorperazine Drug Allergy 02-28-20 25 [facility] (1 source) Sulfonamides (Antibiotic) Drug allergy (disorder) 02-28-20 [facility] Medications Current Medications Medication Drug Class(es) Dates Sig (Normalized) Sig (Original) acetaminophen 250 mg / aspirin 250 mg / caffeine 65 mg oral tablet (20 sources) Platelet Aggregation Inhibitor, Nonsteroidal Anti-inflammatory Drug, Central Nervous System Stimulant, Methylxanthine Start: 09-15-2022 Aspirin-Acetamin ophen-Caffeine (Excedrin Migraine) 250-250-65 mg tablet Active 1 {tbl} PO EVERY 6 HOURS as needed for pain September 15, 2022 12:00am Complies with drug therapy Comment on above: Take 1 tablet by stoney th every 6 hours as needed for pain. acetaminophen 325 mg / HYDROcodone bitartrate 5 mg oral tablet (20 sources) Opioid Agonist Start: 02-27-2025 Hydrocodone-Acet aminophen 5-325 mg tablet Active 1 {tbl} PO 4 TIMES DAILY 0 February 27, 2025 9:44am pain Complies with drug therapy Start: 01-16-2025 take 1 tablet by stoney th every twelve hours HYDROcodone-acetaminophen (NORCO) 5-325 mg per tablet Indications: Cervical radiculopathy Take 1 tablet by mouth every [address] Diana Carter. 01/16/2025 Active Start: 06-04-2024 End: 02-27-2025 Hydrocodone-Acetaminophen 5- 325 mg tablet Discontinued 1 {tbl} PO THREE TIMES A DAY 0 June 04, 2024 10:16am February 27, 2025 9:46am pain Start: 09-15-2022 End: 09-13-2024 Hydrocodone-Acetaminophen 5- 325 mg tablet Discontinued 1 {tbl} PO TWICE A DAY 0 September 15, 2022 12:00am June 04, 2024 10:23am Start: 09-15-2022 take 1 tablet by stoney th twice daily Hydrocodone-Acetaminophen Active 1 TABLE T PO TWICE A DAY September 14, 2022 11:00pm Comment on above: Take 1 tablet by stoney th twice daily. [id number] 200 actuat albuterol 0.09 mg/actuat metered dose inhaler (20 sources) beta2-Adrenergic Agonist Start: End: take 2 puff(s) by inhalation every six hours as needed for wheezing albuterol HFA (PROVENTIL HFA, VENTOLIN HFA) 90 mcg/actuation inhaler Indications: Mild intermittent asthma without complication (HCC) Inhale 2 Puffs as instructed every 6 hours as needed for wheezing/shortness of breath. 1 Each 3 07/18/2024 Active Start: 09-19-2022 End: 02-23-2024 albuterol HFA (PROVENTIL HFA , VENTOLIN HFA) 90 mcg/actuation inhaler Inhale as instructed. 09/19/2022 02/23/2024 Discontinued Start: 09-19-2022 Albuterol Sulf ate (Ventolin Hfa) 90 mcg/actuation HFA aerosol inhaler Active 2 NMA INHALATION Q4H as needed for shortness of breath or wheezing 27 11September 19, 2022 12:00am Complies with drug therapy Start: 09-19-2022 take 1 puff(s) by in halation every four hours Albuterol Sulfate (Ventolin Hfa) 90 mcg/actuation HFA aerosol inhaler Active 2 PUFF INHALATION Q4H September 18, 2022 11:00pm Start: 09-29-2021 End: 01-04-2022 take 2 puff(s) by inhalation every six hours as needed for wheezing albuterol HFA (VENTOLIN HFA) 90 mcg/actuation inhaler Inhale 2 Puffs as instructed every 6 hours as needed for wheezing/shortness of breath. 1 Each 2 09/29/2021 01/04/2022 Discontinued (Course of therapy completed) Comment on above: Inhale 2 Puffs as in structed every 6 hours as needed for wheezing/shortness of breath. Inhale as instructed . albuterol 0.833 mg/ml / ipratropium bromide 0.167 mg/ml inhalation solution (20 sources) Anticholinergic, beta2-Adrenergic Agonist Start: take 1 mL by inhalation every six hours as needed for wheezing Ipratropium-Albute rol 0.5 mg-3 mg(2.5 mg base)/3 mL solution for nebulization Active 3 mL INHALATION EVERY 6 HOURS as needed for shortness of breath or wheezing June 04, 2024 1:00am Complies with drug therapy Alum-Mag Hydroxide-Simeth 200-200-20 mg/5 mL suspension (9 sources) Start: take 1 mL by mouth every four hours as needed Alum-Mag Hydroxide-Simeth 200-200-20 mg/5 mL suspension Active 30 mL PO Q4H as needed for dyspepsia July 26, 2024 1:00am Start: 07-26-2024 take 1 mL by mouth e very four hours as needed Alum-Mag Hydroxide-Simeth 200-200-20 mg/5 mL suspension Active 30 mL PO Q4H as needed July 26, 2024 1:00am aluminum hydroxide 40 mg/ml / magnesium hydroxide 40 mg/ml oral suspension (13 sources) Start: 05-29-2024 take 30 mL by mouth every four hours as needed aluminum-magnesium hydroxide (MAG-AL) 200-200 mg/5 mL suspension Take 30 mL by mouth every 4 hours as needed (GI distress). 05/29/2024 Active aluminum hydroxide 40 mg/ml / magnesium hydroxide 40 mg/ml / simethicone 4 mg/ml oral suspension (12 sources) Start: 07-26-2024 take 1 mL by mouth every four hours as needed Alum-Mag Hydroxide-Simeth 200-200-20 mg/5 mL suspension Active 30 mL PO Q4H as needed for dyspepsia July 26, 2024 1:00am Complies with drug therapy End: 05-29-2024 take 30 mL by mouth every four hours as needed aluminum-magnesium hydroxide-simethicone (MAALOX,MYLANTA,MAG-AL PLUS) 200-200-20 mg/5 mL suspension Take 30 mL by mouth every 4 hours as needed. 05/29/2024 Discontinued (Erroneous entry) amiodarone hydrochloride 200 mg oral tablet (11 sources) Antiarrhythmic Start: 10-22-2024 take 1 tablet by mouth once daily amiodarone (PACERONE) 200 mg tablet Indications: PAF (paroxysmal atrial fibrillation) ([facility]) Take 200 mg by mouth once daily. 10/22/2024 Active Start: 09-26-2024 Amiodarone 200 mg tablet Active 100 mg PO daily 26 04September 26, 2024 12:00am Complies with drug therapy amoxicillin 875 mg oral tablet (16 sources) Penicillin-class Antibacterial Start: 11-06-2024 End: 11-13-2024 take 1 tablet by mouth twice daily amoxicillin (AMOXIL) 875 mg tablet Indications: Acute non-recurrent maxillary sinusitis Take 1 tablet by mouth two times a day for 7 days. 14 tablet 11/06/2024 11/13/2024 Active Start: 07-18-2024 End: 09-06-2024 Amoxicillin 875 mg tablet Discontinued mg PO July 26, 2024 1:00am September 06, 2024 12:40am Start: 04-09-2024 End: 04-19-2024 take 1 tablet by mouth twice daily amoxicillin (AMOXIL) 875 mg tablet Indications: Acute non-recurrent sinusitis, unspecified location Take 1 tablet by mouth two times a day for 10 days. 20 tablet 04/09/2024 04/19/2024 Active Start: 12-26-2022 End: 12-31-2022 take 1 tablet by mouth twice daily amoxicillin (AMOXIL) 875 mg tablet Indications: Acute non-recurrent sinusitis, unspecified location Take 1 tablet by mouth twice daily for 5 days. 10 tablet 0 12/26/2022 12/31/2022 Active Comment on above: Take 1 tablet by [facility] twice daily for 5 days. amoxicillin 875 mg / clavulanate 125 mg oral tablet (20 sources) Penicillin-class Antibacterial Start: End: take 1 tablet by mouth twice daily amoxicillin-clavul anate potassium (AUGMENTIN) 875-125 mg per tablet Indications: Dental infection Take 1 tablet by mouth two times a day for 5 days. 10 tablet 0 09/22/2023 09/27/2023 Active Start: 07-05-2023 End: 07-17-2023 Amoxicillin-Pot Clavulanate 500-125 mg tablet Discontinued 1 {tbl} PO TWICE A DAY July 05, 2023 1:00am July 17, 2023 10:36am Start: 01-03-2023 End: 01-20-2023 Amoxicillin-Pot Clavulanate 875-125 mg tablet Discontinued 1 {tbl} PO TWICE A DAY January 03, 2023 12:00am January 20, 2023 10:20am Start: 01-03-2023 End: 01-20-2023 take 1 tablet by mouth twice daily Amoxicillin-Pot Clavulanate Discontinued 1 TABLET PO TWICE A DAY January 02, 2023 11:00pm January 20, 2023 9:20am Comment on above: Take 1 tablet by stoney th two times a day for 5 days. apixaban 5 mg oral tablet (20 sources) Factor Xa Inhibitor Start: 06-23-2023 take 1 tablet by mouth twice daily Apixaban (Eliquis) 5 mg tablet Active 5 mg PO TWICE A DAY 60 June 23, 2023 1:00am blood thinner Complies with drug therapy Comment on above: Take 1 tablet by stoney th two times a day. [facility] ascorbic acid 500 mg chewable tablet (20 sources) Vitamin C Start: 09-05-2024 End: 02-27-2025 Ascorbic Acid (Vitamin C) (Acerola C) 500 mg tablet,chewable Active 500 mg PO 1699February 27, 2025 9:27am Supplement Complies with drug therapy Start: 04-21-2021 take 1 tablet by stoney th once daily ascorbic acid, vitamin C, (VITAMIN C) 500 mg tablet Take 1 tablet by mouth once daily. 04/21/2021 Active Comment on above: Take 1 tablet by stoney once daily. benoxinate hydrochloride 4 mg/ml / fluorescein sodium 2.5 mg/ml ophthalmic solution (1 source) Diagnostic Dye Start: 09-21-2021 End: 09-21-2021 fluorescein-benoxinate 0.25-0.4 % 1 Drop (FLURESS) bisacodyl 10 mg rectal suppository (20 sources) Stimulant Laxative Start: 10-10-2024 Bisacodyl 10 mg suppository Active 10 mg RC daily as needed October 10, 2024 12:00am Complies with drug therapy Start: 05-29-2024 End: 09-06-2024 Bisacodyl 10 mg suppository Discontinued 10 mg RC daily as needed for constipation June 04, 2024 1:00am September 06, 2024 12:42am Start: 11-23-2023 End: 06-04-2024 take 1 tablet by mouth once daily as needed for constipation Bisacodyl 5 mg tablet,delayed release (DR/EC) Discontinued 5 mg PO DAILY as needed for constipation November 23, 2023 12:00am June 04, 2024 10:23am Blood-Glucose Meter monitoring kit (1 source) Start: 01-04-2022 End: 01-05-2022 Blood-Glucose Meter monitoring kit Glucose Meter Kit (choose brand covered by insurance) - Dx: Type 2 DM - Uncontrolled E11.65 1 Each 0 01/04/2022 01/05/2022 Active Comment on above: Glucose Meter Kit (c hoose brand covered by insurance) - Dx: Type 2 DM - Uncontrolled E11.65 168 hr buprenorphine 0.01 mg/hr transdermal system (20 sources) Partial Opioid Agonist Start: 09-13-2024 apply 1 dose transdermal route every week buprenorphine (BUTRANS) 10 mcg/hour transdermal patch Apply 1 patch as directed one time a week. 09/13/2024 Active Start: 06-04-2024 End: 02-27-2025 apply 10 ug topically every week Buprenorphine 10 mcg/ hour patch weekly Discontinued 1 NMA TOPICAL EVERY WEEK June 04, 2024 1:00am February 27, 2025 9:44am Start: 09-15-2022 End: 06-04-2024 apply 5 ug transdermal route every week Buprenorphine 5 mcg/hour patch weekly Discontinued 1 NMA TD EVERY WEEK September 15, 2022 12:00am June 04, 2024 10:17am Start: 08-27-2021 End: 09-13-2024 apply 1 dose transdermal route every hour buprenorphine (BUTRANS) 5 mcg/hour Apply 1 Patch as directed one time a week. Per Dr. Carter 08/27/2021 09/13/2024 Discontinued (Duplicate Entry) Comment on above: Apply 1 Patch as dir ected one time a week. Per Dr. Carter Calcium Carbonate / vitamin D3 (8 sources) Start: 10-05-2022 take 2 tablets by mouth every other day Calcium Carbonate-Vitamin D3 Active 2 TABLET PO every other day October 04, 2022 11:00pm Start: 10-05-2022 take 2 tablets by mo uth every other day Calcium Carbonate-Vitamin D3 Active 2 TABLET PO every other day October 05, 2022 12:00am Diaper,Brief, Adult,Disposab le (20 sources) Start: 12-13-2023 Diaper,Brief, Adult,Disposable Indications: Incontinence without sensory awareness Size Medium, 1-2 times a day 60 Each 11 12/13/2023 Active dimenhyDRINATE 50 mg oral ta blet (20 sources) Start: 10-10-2024 Dimenhydrinate (Dramamine) 50 mg tablet Active 50 mg PO .COMPLEX as needed for nausea and vomiting October 10, 2024 9:54am 50 mg orally Q18 hours PRN; Complies with drug therapy Start: 06-04-2024 End: 10-10-2024 take 1 tablet by mouth once as needed for nausea and vomiting Dimenhydrinate (Dramamine) 50 mg tablet Discontinued 50 mg PO ONCE as needed for nausea and vomiting June 04, 2024 10:13am October 10, 2024 10:02am Start: 09-15-2022 End: 10-05-2022 take 1 tablet by mouth at bedtime as needed for nausea and vomiting Dimenhydrinate (Dramamine) 50 mg tablet Discontinued 50 mg PO AT BEDTIME as needed for nausea and vomiting September 15, 2022 12:00am October 05, 2022 1:42pm Start: 09-15-2022 End: 06-04-2024 take 1 tablet by mouth every four hours as needed for nausea and vomiting Dimenhydrinate (Dramamine) 50 mg tablet Discontinued 50 mg PO Q4H as needed for nausea and vomiting October 05, 2022 1:32pm June 04, 2024 10:23am Comment on above: Take 50 mg by mouth at bedtime as needed (nausea). diphenhydrAMINE hydrochloride 25 mg oral capsule (20 sources) Histamine-1 Receptor Antagonist Start: 06-04-20 End: 09-07-19 take 1 capsule by mouth every four hours as needed Diphenhydramine Hcl (Allergy (Diphenhydramine)) 25 mg capsule Active 25 mg PO Q4H as needed for allergy symptoms September 05, 2024 12:00am Complies with drug therapy Start: 10-05-2022 End: 06-04-2024 take 1 capsule by mouth once as needed Diphenhydramine Hcl (Allergy (Diphenhydramine)) 25 mg capsule Discontinued 25 mg PO ONCE as needed for allergic reaction October 05, 2022 1:31pm June 04, 2024 10:23am Start: 09-15-2022 End: 10-05-2022 take 1 capsule by mouth every four hours as needed Diphenhydramine Hcl (Allergy (Diphenhydramine)) 25 mg capsule Discontinued 25 mg PO Q4H as needed September 15, 2022 12:00am October 05, 2022 1:42pm Comment on above: Take 25 mg by mouth every 4 hours as needed. doxycycline hyclate 100 mg oral tablet (4 sources) Tetracycline-clas s Drug Start: 03-27-2024 End: 04-03-2024 take 1 tablet by mouth twice daily doxycycline (VIBRA-TABS) 100 mg tablet Take 1 tablet by mouth two times a day for 7 days. 14 tablet 03/27/2024 04/03/2024 Active Start: 02-22-2023 End: 03-01-2023 take 1 tablet by mouth twice daily doxycycline monohydrate 100 mg tablet Indications: Skin infection Take 1 tablet by mouth twice daily for 7 days. 14 tablet 0 02/22/2023 03/01/2023 Active Comment on above: Take 1 tablet by stoney th twice daily for 7 days. empagliflozin 25 mg oral tablet (20 sources) Sodium-Glucose Cotransporter 2 Inhibitor Start: 06-04-20 take 1 tablet by mouth once daily Empagliflozin (Jardiance) 25 mg tablet Active 25 mg PO daily June 04, 2024 1:00am diabetes Complies with drug therapy Start: 05-29-2024 End: 05-29-2024 take 1 tablet by mouth once daily Empagliflozin (Jardiance) 25 mg tablet Active 25 mg PO daily June 04, 2024 1:00am diabetes Start: 07-18-2022 End: 06-04-2024 take 1 tablet by mouth once daily Empagliflozin (Jardiance) 10 mg tablet Discontinued 10 mg PO DAILY November 28, 2023 12:00am June 04, 2024 10:17am Start: 01-04-2022 End: 04-06-2022 take 1 tablet by mouth once daily, then take 1 tablet by mouth once daily in the morning empagliflozin (JARDIANCE) 10 mg tablet Take 1 tablet by mouth once daily. Take 1 tablet once daily in the morning 30 tablet 5 02/18/2022 04/06/2022 Discontinued (Cost of medication) Comment on above: Take 1 tablet by stoney th once daily. Take 1 tablet once daily in the morning Take 1 tablet by stoney th daily with breakfast. esomeprazole 40 mg delayed release oral capsule (20 sources) Proton Pump Inhibitor Start: End: take 1 capsule by mouth once daily esomeprazole (NEXIUM) 40 mg capsule Take 1 capsule by mouth once daily. 09/13/2024 Active Start: 10-05-2022 End: 09-13-2024 take 1 capsule by mouth once daily Esomeprazole Magnesium (Nexium) 20 mg capsule,delayed release(DR/EC) Discontinued 20 mg PO DAILY October 05, 2022 12:00am June 04, 2024 10:20am Comment on above: Take 20 mg by mouth daily at 6 am. 30 actuat fluticasone furoate 0.2 mg/actuat dry powder inhaler (20 sources) Corticosteroid Start: 09-14-19 take 1 puff(s) by inhalation once daily fluticasone furoate (ARNUITY ELLIPTA) 200 mcg/actuation inhaler Inhale 1 puff as instructed once daily. 09/13/2024 Active Start: 09-05-2024 End: 02-27-2025 Fluticasone Furoate 200 mcg/actuation blister with device Discontinued 1 NMA INHALATION DAILY September 05, 2024 12:00am February 27, 2025 9:46am breathing Start: 09-05-2024 Fluticasone Fu roate 200 mcg/actuation blister with device Active 1 NMA INHALATION DAILY September 05, 2024 12:00am breathing Start: 09-05-2024 Fluticasone Fu roate 200 mcg/actuation blister with device Active 1 NMA INHALATION DAILY September 05, 2024 12:00am Start: 07-26-2024 take 200 ug by inhal ation every twenty-four hours Fluticasone Furoate (Arnuity Ellipta) 200 mcg/actuation blister with device Active 1 NMA INHALATION Q24H 30 July 26, 2024 1:00am Cough Cough, unspecified Complies with drug therapy Start: 07-26-2024 take 200 ug by inhal ation every twenty-four hours Fluticasone Furoate (Arnuity Ellipta) 200 mcg/actuation blister with device Active 1 NMA INHALATION Q24H 30 July 26, 2024 1:00am Cough Cough, unspecified Start: 07-26-2024 take 200 ug by inhal ation every twenty-four hours Fluticasone Furoate (Arnuity Ellipta) 200 mcg/actuation blister with device Active 1 NMA INHALATION Q24H July 26, 2024 1:00am gabapentin 300 mg oral capsule (20 sources) Anti-epileptic Agent Start: 09-15-2022 take 600 mg by mouth three times daily Gabapentin Active 600 MG PO THREE TIMES A DAY September 15, 2022 2:00pm Start: 09-15-2022 take 3 capsules by m outh at bedtime Gabapentin 300 mg capsule Active 900 mg PO AT BEDTIME September 15, 2022 12:00am nerve pain Complies with drug therapy Start: 09-15-2022 take 900 mg by mouth at bedtim e Gabapentin Active 900 MG PO AT BEDTIME September 14, 2022 11:00pm Start: 07-06-2022 End: 07-15-2025 take 2 capsules by mouth three times daily Gabapentin 300 mg capsule Active 600 mg PO THREE TIMES A DAY September 15, 2022 3:00pm Complies with drug therapy Start: 01-13-2022 End: 09-15-2022 take 1 capsule by mouth three times daily Gabapentin 300 mg capsule Discontinued 300 mg PO THREE TIMES A DAY January 13, 2022 12:00am September 15, 2022 3:14pm Start: 09-07-2021 End: 07-04-2022 take 2 capsules by mouth three times daily, then take 3 capsules by mouth once daily at bedtime gabapentin (NEURONTIN) 300 mg capsule Indications: Cervical radiculopathy , Lumbar radiculopathy Take 2 capsules by mouth three times daily AND 3 capsules daily at bedtime. Do all this for 90 days. 270 capsule 2 03/25/2022 07/04/2022 Discontinued Start: 08-02-2021 End: 09-07-2021 gabapentin (NEURONTIN) 300 m g capsule Take 1 tablets three times a day and 3 tablets at bedtime 270 capsule 0 08/02/2021 09/07/2021 Discontinued Comment on above: Take 2 capsules by m outh three times daily AND 3 capsules daily at bedtime. Do all this for 90 days. Take 1 tablets three times a day and 3 tablets at bedtime Take 2 capsules by m outh three times a day AND 3 capsules daily at bedtime. Do all this for 90 days. glipiZIDE er 2.5 mg 24 hr extended release oral tablet (20 sources) Sulfonylurea Start: 06-04-2024 take 1 tablet by mouth once daily Glipizide 2.5 mg tablet extended release 24hr Active 2.5 mg PO daily June 04, 2024 1:00am diabetes Complies with drug therapy take 2.5 mg by mouth once daily GLIPIZIDE ORAL Take 2.5 mg by mouth once daily. Active GLIPIZIDE ORAL [place] by mouth. Active glucose 0.4 mg/mg oral gel (10 sources) Start: 07-26-2024 Dextrose (Gluc ose Gel) 40 % gel Active 10 g PO Q15M as needed for hypoglycemia July 26, 2024 1:00am until symptoms of low blood sugar are controlled Complies with drug therapy 12 hr guaiFENesin 600 mg extended release oral tablet (20 sources) Start: 02-27-2025 take 1 tablet by mouth twice daily, then take 1 tablet by mouth every twelve hours Guaifenesin (Mucinex) 600 mg tablet extended release 12hr Active 600 mg PO TWICE A DAY February 27, 2025 12:00am Complies with drug therapy Start: 11-26-2024 End: 02-27-2025 take 1 tablet by mouth once daily, then take 1 tablet by mouth every twelve hours Guaifenesin (Mucinex) 1,200 mg tablet extended release 12hr Discontinued 1200 mg PO .QD 90 3 November 26, 2024 12:00am February 27, 2025 9:30am Start: 07-26-2024 End: 10-10-2024 take 1 tablet by mouth once daily, then take 1 tablet by mouth every twelve hours Guaifenesin (Mucinex) 1,200 mg tablet extended release 12hr Discontinued 1200 mg PO DAILY September 06, 2024 12:00am October 10, 2024 10:00am cough Start: 06-04-2024 End: 07-26-2024 take 200 mg by mouth every four hours as needed Guaifenesin 100 mg/5 mL liquid Discontinued 200 mg PO Q4H as needed June 04, 2024 1:00am July 26, 2024 10:19am Start: 10-05-2022 End: 06-23-2023 take 1 tablet by mouth twice daily, then take 1 tablet by mouth every twelve hours Guaifenesin (Mucinex) 600 mg tablet extended release 12hr Discontinued 600 mg PO TWICE A DAY October 05, 2022 1:35pm June 23, 2023 3:18pm Start: 09-15-2022 End: 10-05-2022 take 2 tablets by mouth twice daily, then take 1 tablet by mouth every twelve hours Guaifenesin (Mucinex) 600 mg tablet extended release 12hr Discontinued 1200 mg PO TWICE A DAY September 15, 2022 12:00am October 05, 2022 1:42pm take 10 mL by mouth every four hours as needed GUAIFENESIN ORAL Take 10 mL by mouth every 4 hours as needed. Active End: 06-16-2023 guaiFENesin (MUCINEX) 600 mg 12 hr tablet Take 1,200 mg by mouth twice daily. 06/16/2023 Discontinued Comment on above: Take 1,200 mg by stoney th twice daily. Inhalational Spacing Device (1 source) Start: End: Inhalational Spacing Device Indications: SEYMOUR (dyspnea on exertion) , Sore throat 1 Device one time only for 1 dose. 1 Each 02/23/2024 02/23/2024 Active levomefolate (DEPLIN) 7.5 mg capsule (20 sources) Start: take 2 capsules by mouth once daily levomefolate (DEPLIN) 7.5 mg capsule Take 2 capsules by mouth once daily. 09/15/2023 Active Start: 09-15-2023 take 2 capsules by m outh once daily levomefolate (DEPLIN) 7.5 mg capsule Take 2 capsules by mouth once daily. 0 09/15/2023 Active Comment on above: Take 2 capsules by m outh once daily. Levomefolate-Algal Oil (Deplin (Algal Oil)) 7.5-90.314 mg capsule (11 sources) Start: 02-27-2025 take 7.5-90.314 mg by mouth once daily Levomefolate-Algal Oil (Deplin (Algal Oil)) 7.5-90.314 mg capsule Active 2 NMA PO daily February 27, 2025 9:28am Complies with drug therapy Start: 06-04-2024 End: 02-27-2025 take 7.5-90.314 mg by mouth once daily Levomefolate-Algal Oil (Deplin (Algal Oil)) 7.5-90.314 mg capsule Discontinued 1 NMA PO daily June 04, 2024 1:00am February 27, 2025 9:36am Start: 06-04-2024 take 7.5-90.314 mg b y mouth once daily Levomefolate-Algal Oil (Deplin (Algal Oil)) 7.5-90.314 mg capsule Active 1 NMA PO daily June 04, 2024 1:00am Start: 06-04-2024 take 7.5-90.314 mg b y mouth once daily Levomefolate-Algal Oil (Deplin (Algal Oil)) 7.5-90.314 mg capsule Active 2 NMA PO daily June 04, 2024 1:00am lidocaine 0.04 mg/mg medicated patch (13 sources) Antiarrhythmic, Amide Local Anesthetic Start: 09-20-2024 Lidocaine 4 % adhesi ve patch,medicated Active 1 NMA TOPICAL daily September 20, 2024 12:00am Complies with drug therapy Start: 09-13-2024 apply 1 dose transde rmal route once daily, then apply 1 dose transdermal route every twelve hours lidocaine (LIDODERM) 5 % Apply 1 patch as directed once daily. to affected area. Remove patch after 12 hours. 09/13/2024 Active linaclotide 0.29 mg oral capsule (20 sources) Guanylate Cyclase-C Agonist Start: 04-10-2024 End: 12-04-2024 take 1 capsule by mouth once daily in the morning Linaclotide (Linzess) 290 mcg capsule Active 290 ug PO EVERY MORNING 90 December 04, 2024 9:49am stomach Complies with drug therapy Start: 11-28-2023 End: 09-13-2024 take 1 capsule by mouth once daily Linaclotide (Linzess) 145 mcg capsule Discontinued 145 ug PO DAILY 90 December 07, 2023 8:42am June 04, 2024 10:18am magnesium hydroxide 80 mg/ml oral suspension (20 sources) Start: 07-26-2024 take 1 mL by mouth once as needed Magnesium Hydroxide (Milk Of Magnesia) 400 mg/5 mL suspension Active 30 mL PO ONCE as needed for stomach upset July 26, 2024 1:00am Complies with drug therapy Start: 07-26-2024 take 1 mL by mouth o nce as needed Magnesium Hydroxide (Milk Of Magnesia) 400 mg/5 mL suspension Active 30 mL PO ONCE as needed for stomach upset July 26, 2024 1:00am Start: 07-26-2024 take 1 mL by mouth o nce as needed Magnesium Hydroxide (Milk Of Magnesia) 400 mg/5 mL suspension Active 30 mL PO ONCE as needed July 26, 2024 1:00am take 30 mL by mouth once daily as needed magnesium hydroxide (MILK OF MAGNESIA) 400 mg/5 mL suspension Take 30 mL by mouth once daily as needed. Active magnesium oxide 400 mg oral tablet (20 sources) Start: 06-04-2024 take 1 tablet by mouth at bedtime Magnesium Oxide 400 mg magnesium tablet Active 400 mg PO AT BEDTIME June 04, 2024 1:00am Supplement Complies with drug therapy meloxicam 7.5 mg oral tablet (20 sources) Nonsteroidal Anti-inflammatory Drug Start: 10-10-2024 End: 02-27-2025 take 1 tablet by mouth once daily Meloxicam 7.5 mg tablet Active 7.5 mg PO daily February 27, 2025 9:32am Complies with drug therapy Start: 09-05-2024 End: 09-06-2024 take 1 tablet by mouth at bedtime Meloxicam 7.5 mg tablet Discontinued 7.5 mg PO AT BEDTIME September 05, 2024 12:00am September 06, 2024 12:52am Start: 05-29-2024 End: 07-26-2024 take 1 tablet by mouth once daily Meloxicam 7.5 mg tablet Discontinued 7.5 mg PO daily June 04, 2024 1:00am July 26, 2024 9:54am Qfkwuxoswicj-Ofer-Kxvwf Acid (Centrum Women) 18-400 mg-mcg tablet (18 sources) Start: 09-15-2022 Multivitamin-I jennifer-Folic Acid (Centrum Women) 18-400 mg-mcg tablet Active 1 {tbl} PO 1699September 15, 2022 12:00am Supplement Complies with drug therapy Start: 09-15-2022 Multivitamin-I jennifer-Folic Acid (Centrum Women) 18-400 mg-mcg tablet Active 1 {tbl} PO 1699September 15, 2022 12:00am Supplement Start: 09-15-2022 Multivitamin-I jennifer-Folic Acid (Centrum Women) 18-400 mg-mcg tablet Active 1 {tbl} PO 1700 September 15, 2022 12:00am Start: 09-15-2022 Multivitamin-I jennifer-Folic Acid (Centrum Women) 18-400 mg-mcg tablet Active 1 {tbl} PO DAILY September 15, 2022 12:00am Start: 09-15-2022 take 1 tablet by stoney th once daily Fwdgbpzpufab-Nxmv-Hrttk Acid (Centrum Women) 18-400 mg-mcg tablet Active 1 TABLET PO DAILY September 14, 2022 11:00pm Start: 09-15-2022 take 1 tablet by stoney th once daily Nfbgeglgbfdy-Vwuf-Pqadk Acid (Centrum Women) 18-400 mg-mcg tablet Active 1 TABLET PO DAILY September 15, 2022 12:00am multivitamin/iron/folic acid (CENTRUM WOMEN ORAL) (20 sources) multivitamin/iro n/folic acid (CENTRUM WOMEN ORAL) Take by mouth once daily. Active multivitamin/iro n/folic acid (CENTRUM WOMEN ORAL) Take by mouth once daily. 0 Active Comment on above: Take by mouth once d aily. nitroglycerin 0.4 mg sublingual tablet (20 sources) Nitrate Vasodilator Start: 09-20-2024 Nitroglycerin 0.4 mg tablet, sublingual Active 0.4 mg SL Q5M as needed September 20, 2024 12:00am do not exceed 3 doses per episode Complies with drug therapy Start: 01-04-2022 End: 09-06-2024 Nitroglycerin 0.4 mg tablet, sublingual Discontinued 0.4 mg SL every 5 to 15 minutes as needed for chest pain September 15, 2022 12:00am September 06, 2024 12:54am do not exceed 3 doses per episode Comment on above: Dissolve 0.4 mg unde r the tongue every 5 minutes as needed. Dissolve 1 tablet un isabella the tongue every 5 minutes as needed. nystatin [id number] unt/ml topical cream (3 sources) Polyene Antifungal Start: 3 End: 3 nystatin (MYCOSTATIN) cream Indications: Skin infection Apply to affected area twice daily for 14 days. 30 g 0 02/22/2023 03/08/2023 Active Comment on above: Apply to affected ar ea twice daily for 14 days. ondansetron 4 mg oral tablet (20 sources) Serotonin-3 Receptor Antagonist Start: take 1 tablet by mouth every eight hours as needed Ondansetron Hcl 4 mg tablet Active 4 mg PO Q8H as needed February 27, 2025 12:00am Complies with drug therapy Start: 09-05-2024 End: 02-27-2025 take 1 tablet by mouth every eight hours Ondansetron Hcl 8 mg tablet Discontinued 8 mg PO Q8H September 05, 2024 12:00am February 27, 2025 9:33am 1st dose 1-2 hr before radiation Start: 05-29-2024 ondansetron (Z OFRAN) 4 mg tablet Take by mouth every 8 hours as needed for nausea/vomiting. 05/29/2024 Active Start: 04-10-2024 End: 09-05-2024 take 1 tablet by mouth every eight hours as needed for nausea and vomiting Ondansetron 4 mg tablet,disintegrating Discontinued 4 mg PO Q8H as needed for nausea and vomiting 29 08April 10, 2024 12:00am September 05, 2024 11:36pm Start: 01-12-2023 End: 11-28-2023 take 1 tablet by mouth every six hours as needed for nausea and vomiting Ondansetron Hcl 4 mg tablet Discontinued 4 mg PO EVERY 6 HOURS as needed for nausea and vomiting June 01, 2023 9:53am November 28, 2023 9:25am Comment on above: Take 4 mg by mouth a s needed. phenylephrine hydrochloride 25 mg/ml ophthalmic solution (1 source) alpha-1 Adrenergic Agonist Start: 09-21-2021 End: 09-21-2021 PHENYLephrine 2.5 % 1 Drop (AK-DILATE, KRYSTAL-SYNEPHRINE) microencapsulated potassium chloride 20 meq extended release oral tablet (20 sources) Start: 09-05-2024 Potassium Chloride (Klor-Con M20) 20 mEq tablet,ER particles/crystals Active 20 meq PO DAILY as needed for supplement September 05, 2024 12:00am Complies with drug therapy Start: 11-28-2023 End: 09-05-2024 take 1 tablet by mouth once as needed Potassium Chloride 20 mEq tablet extended release Discontinued 20 meq PO ONCE as needed for With Lasix 30 0 November 28, 2023 2:23pm July 26, 2024 9:59am Start: 01-13-2022 End: 11-23-2023 take 1 tablet by mouth once daily Potassium Chloride 20 mEq tablet extended release Discontinued 20 meq PO DAILY January 13, 2022 12:00am November 23, 2023 10:52am Start: 08-27-2021 End: 05-29-2024 Potassium Chloride (Klor-Con M20) 20 mEq tablet,ER particles/crystals Active 20 meq PO DAILY as needed for supplement September 05, 2024 12:00am Comment on above: Take 1 tablet by stoney th once daily. Selenium (11 sources) Start: 01-13-2022 take 200 ug by mouth once daily Selenium Active 200 MCG PO DAILY January 12, 2022 11:00pm Start: 01-13-2022 take 200 ug by mouth once cleve y Selenium Active 200 MCG PO DAILY January 13, 2022 12:00am simethicone 80 mg chewable tablet (20 sources) Start: 06-04-2024 End: 12-04-2024 Simethicone (Gas Relief (Simethicone)) 80 mg tablet,chewable Active 80 mg PO 4 to 6 times per day as needed for abdominal distention 60 0 December 04, 2024 9:50am Complies with drug therapy Start: 05-29-2024 take 1 tablet by stoney th every six hours as needed simethicone, chewable (MYLICON) 80 mg chewable tablet Take 1 tablet by mouth four times a day as needed (gas, bloating). 05/29/2024 Active Thyroid (Pork) (Track Moving Machine Operator Thyroid) 60 mg tablet (7 sources) Start: 01-13-2022 take 1 tablet by mouth once daily Thyroid (Pork) (Track Moving Machine Operator Thyroid) 60 mg tablet Active 60 mg PO DAILY January 13, 2022 12:00am thyroid Start: 01-13-2022 take 1 tablet by mouth once da inderjit Thyroid (Pork) (Track Moving Machine Operator Thyroid) 60 mg tablet Active 60 mg PO DAILY January 13, 2022 12:00am thyroid (assisted) 60 mg oral tablet (20 sources) Start: 01-16-2025 take 1 tablet by mouth once daily PREDATOR CONTROL TRAPPER THYROID 60 mg tablet Indications: Hypothyroidism, unspecified type Take 1 tablet by mouth once daily. 90 tablet 3 01/16/2025 Active Start: 08-27-2021 End: 07-14-2022 take 1 tablet by mouth once daily PREDATOR CONTROL TRAPPER THYROID 60 mg tablet Indications: Hypothyroidism, acquired Take 1 tablet by mouth once daily. 90 tablet 3 07/05/2023 Active Comment on above: Take 1 tablet by stoney once daily. tiZANidine 2 mg oral capsule (20 sources) Central alpha-2 Adrenergic Agonist Start: take 2 capsules by mouth at bedtime Tizanidine 2 mg capsule Active 4 mg PO AT BEDTIME June 04, 2024 1:00am muscle spasms Complies with drug therapy Start: 01-13-2022 End: 09-23-2022 take 1 tablet by mouth every six hours as needed Tizanidine 2 mg tablet Discontinued 2 mg PO EVERY 6 HOURS as needed January 13, 2022 12:00am September 02, 2022 12:56pm Comment on above: Take by mouth. traZODone hydrochloride 150 mg oral tablet (20 sources) Serotonin Reuptake Inhibitor Start: take 2 tablets by mouth at bedtime Trazodone 150 mg tablet Active 300 mg PO AT BEDTIME June 04, 2024 10:21am sleep Complies with drug therapy Start: 10-05-2022 End: 06-04-2024 Trazodone 150 mg tablet Disc ontinued 150 mg PO AT BEDTIME August 04, 2023 12:26pm June 04, 2024 10:23am Takes 1 and 2/3 of a tablet Start: 09-15-2022 End: 10-05-2022 take 300 mg by mouth at bedtime Trazodone Discontinued 300 MG PO AT BEDTIME September 14, 2022 11:00pm October 05, 2022 12:42pm Start: 09-02-2022 End: 09-15-2022 take 4 tablets by mouth once daily Trazodone 50 mg tablet Discontinued 200 mg PO DAILY September 02, 2022 12:56pm September 15, 2022 3:03pm Start: 09-02-2022 End: 09-15-2022 take 200 mg by mouth once daily Trazodone Discontinued 200 MG PO DAILY September 02, 2022 11:56am September 15, 2022 2:03pm Start: 05-25-2022 End: 10-05-2022 take 2 tablets by mouth at bedtime Trazodone 150 mg tablet Discontinued 300 mg PO AT BEDTIME September 15, 2022 12:00am October 05, 2022 1:42pm Start: 01-13-2022 End: 09-02-2022 take 1 tablet by mouth once daily Trazodone 50 mg tablet Discontinued 50 mg PO DAILY January 13, 2022 12:00am September 02, 2022 12:57pm Start: 07-13-2021 End: 05-25-2022 traZODone (DESYREL) 100 mg t ablet Take 150 mg by mouth daily at bedtime. 150-200mg at bedtime 07/13/2021 05/25/2022 Discontinued (Duplicate Entry) Start: 07-13-2021 traZODone (MELI YREL) 100 mg tablet Start: 06-25-2021 End: 09-07-2021 take 1 tablet by mouth once daily at bedtime traZODone (DESYREL) 50 mg tablet Take 1 tablet by mouth daily at bedtime. 30 tablet 0 06/25/2021 09/07/2021 Discontinued (Discontinued by another Health Care Provider) Comment on above: Take 1 tablet by stoney th daily at bedtime. Take 150 mg by mouth daily at bedtime. 150-200mg at bedtime Take 2 tablets by mo uth daily at bedtime. [facility] triamcinolone acetonide 0.001 mg/mg topical ointment (4 sources) Corticosteroid Start: End: triamcinolone acetonide (KENALOG) 0.1 % ointment Apply to affected area twice daily. Up to 30 days. 15 g 0 08/27/2021 09/26/2021 Active Comment on above: Apply to affected ar ea twice daily. Up to 30 days. tropicamide 10 mg/ml ophthalmic solution (1 source) Anticholinergic Start: End: tropicamide 1 % 1 Drop (MYDRIACYL) Vitamin B Complex (8 sources) Start: take 1 capsule by mouth once daily Vitamin B Complex Active 1 CAP PO DAILY October 04, 2022 11:00pm Start: 10-05-2022 take 1 capsule by mouth once d aily Vitamin B Complex Active 1 CAP PO DAILY October 05, 2022 12:00am Completed/Discontinued Medications Medication Drug Class(es) Dates Sig (Normalized) Sig (Original) acetaminophen 500 mg oral tablet (20 sources) Start: 09-20-2024 End: 09-26-2024 take 2 tablets by mouth twice daily as needed for pain Acetaminophen (Tylenol Extra Strength) 500 mg tablet Discontinued 1000 mg PO TWICE A DAY as needed for pain September 20, 2024 12:00am September 26, 2024 1:10pm Start: 07-26-2024 End: 09-06-2024 take 2 tablets by mouth every twelve hours as needed Acetaminophen (Tylenol Extra Strength) 500 mg tablet Discontinued 1000 mg PO Q12H as needed July 26, 2024 1:00am September 06, 2024 12:38am Start: 06-04-2024 take 2 tablets by mo ut every four hours as needed for pain Acetaminophen 325 mg tablet Active 650 mg PO Q4H as needed for fever or pain June 04, 2024 1:00am Complies with drug therapy Start: 11-28-2023 End: 06-04-2024 take 1 capsule by mouth once as needed Acetaminophen 325 mg capsule Discontinued 325 mg PO ONCE as needed November 28, 2023 12:00am June 04, 2024 10:05am End: 11-06-2024 acetaminophen (TYLENOL) 325 mg tablet 650 mg every 4 hours. As needed for elevated temperature DO NOT EXCEED 4GM in 24 HOURS 11/06/2024 Discontinued aspirin 81 mg delayed release oral tablet (20 sources) Platelet Aggregation Inhibitor, Nonsteroidal Anti-inflammatory Drug Start: 04-21-2021 End: 09-15-2023 take 1 tablet by mouth once daily Aspirin 81 mg tablet,delayed release (DR/EC) Discontinued 81 mg PO DAILY January 13, 2022 12:00am October 05, 2022 2:26pm Comment on above: Take 1 tablet by stoney once daily. atorvastatin 20 mg oral tablet (20 sources) HMG-CoA Reductase Inhibitor Start: 09-08-2021 End: 09-08-2022 take 1 tablet by mouth once daily atorvastatin (LIPITOR) 20 mg tablet Indications: Mixed hyperlipidemia Take 1 tablet by mouth once daily. 90 tablet 3 09/08/2021 12/02/2021 Discontinued Comment on above: Take 1 tablet by stoney th once daily. atropine sulfate 0.025 mg / diphenoxylate hydrochloride 2.5 mg oral tablet (20 sources) Anticholinergic, Cholinergic Muscarinic Antagonist, Antidiarrheal Start: 10-05-2022 End: 07-05-2023 Diphenoxylate-Atrop ine 2.5-0.025 mg tablet Discontinued 1 {tbl} PO 4 times daily as needed October 05, 2022 12:00am July 05, 2023 12:12pm Start: 10-05-2022 take 1 tablet by stoney th four times daily Diphenoxylate-Atropine Active 1 TABLET P O 4 times daily October 04, 2022 11:00pm Start: 01-13-2022 End: 09-23-2022 diphenoxylate-atropine (LOMO TIL) 2.5-0.025 mg per tablet Take by mouth. 0 01/13/2022 09/23/2022 Discontinued Start: 01-13-2022 End: 09-02-2022 Diphenoxylate-Atropine (Lomo til) 2.5-0.025 mg tablet Discontinued 1 {tbl} PO AT BEDTIME as needed January 13, 2022 12:00am September 02, 2022 12:55pm Start: 04-21-2021 End: 05-25-2022 take 1 tablet by mouth every six hours as needed diphenoxylate-atropine (LOMOTIL) 2.5-0.025 mg per tablet Take 1 tablet by mouth four times daily as needed for diarrhea for up to 30 days. 04/21/2021 05/25/2022 Discontinued Comment on above: Take 1 tablet by stoney th four times daily as needed for diarrhea for up to 30 days. Take by mouth. calcium ascorbate 500 mg oral tablet (18 sources) Start: 09-15-2022 End: 09-20-2024 take 1 tablet by mouth once daily Ascorbate Calcium (Vitamin C) 500 mg tablet Discontinued 500 mg PO DAILY September 15, 2022 12:00am September 20, 2024 1:26pm Calcium Carbonate-Vitamin D3 600 mg-25 mcg (1,000 unit) tablet (20 sources) Start: 06-23-2023 End: 06-04-2024 Calcium Carbonate-Vitamin D3 600 mg-25 mcg (1,000 unit) tablet Discontinued 1 {tbl} PO every other day June 23, 2023 3:12pm June 04, 2024 10:22am Start: 10-05-2022 End: 06-23-2023 Calcium Carbonate-Vitamin D3 600 mg-25 mcg (1,000 unit) tablet Discontinued 2 {tbl} PO every other day October 05, 2022 12:00am June 23, 2023 3:23pm cetirizine hydrochloride 10 mg oral tablet (6 sources) Histamine-1 Receptor Antagonist Start: 09-20-2024 End: 10-10-2024 take 1 tablet by mouth once daily as needed Cetirizine (Zyrtec) 10 mg tablet Discontinued 10 mg PO daily as needed for allergy symptoms 30 September 20, 2024 12:00am October 10, 2024 10:02am Cough Chronic cough cholecalciferol 0.125 mg oral tablet (20 sources) Vitamin D Start: 06-04-2024 End: 09-06-2024 take 1 tablet by mouth once daily Cholecalciferol (Vitamin D3) 125 mcg (5,000 unit) tablet Discontinued 125 ug PO daily June 04, 2024 1:00am September 06, 2024 12:44am Start: 01-13-2022 End: 09-13-2024 take 1 capsule by mouth once daily Cholecalciferol (Vitamin D3) 125 mcg (5,000 unit) capsule Discontinued 125 ug PO DAILY January 13, 2022 12:00am October 05, 2022 1:41pm Start: 04-21-2021 End: 01-04-2022 take 1 capsule by mouth once daily Cholecalciferol, Vitamin D3, 125 mcg (5,000 unit) cap Take 1 capsule by mouth once daily. 04/21/2021 12/14/2021 Discontinued Comment on above: [facility] Take by mouth. clindamycin 300 mg oral capsule (1 source) Lincosamide Antibacterial Start: End: take 1 capsule by mouth twice daily clindamycin (CLEOCIN) 300 mg capsule Indications: Cellulitis of skin Take 1 capsule by mouth twice daily. 14 capsule 0 07/27/2021 09/07/2021 Discontinued Comment on above: Take 1 capsule by [facility] twice daily. cyclobenzaprine hydrochloride 10 mg oral tablet (20 sources) Muscle Relaxant Start: 022 End: 023 take 1 tablet by mouth twice daily Cyclobenzaprine 10 mg tablet Discontinued 10 mg PO TWICE A DAY September 15, 2022 12:00am December 21, 2022 8:37am Start: 09-01-2021 End: 05-25-2022 take 1 tablet by mouth every eight hours as needed cyclobenzaprine (FLEXERIL) 5 mg tablet Take 1 tablet by mouth three times daily as needed. 90 tablet 09/01/2021 05/25/2022 Discontinued (Discontinued by another Health Care Provider) Comment on above: Take 1 tablet by stoney three times daily as needed. Take 1 tablet by stoney twice daily. From [facility]. dicyclomine hydrochloride 20 mg oral tablet (20 sources) Anticholinergic Start: 06-02-20 End: 09-18-19 take 1 tablet by mouth twice daily Dicyclomine 20 mg tablet Discontinued 20 mg PO TWICE A DAY 60 6 March 01, 2023 3:28pm September 18, 2023 11:07am Comment on above: [facility] From [facility]. famotidine 20 mg oral tablet (20 sources) Histamine-2 Receptor Antagonist Start: 01-14-20 End: 09-03-19 take 1 tablet by mouth twice daily Famotidine 20 mg tablet Discontinued 20 mg PO TWICE A DAY January 13, 2022 12:00am September 02, 2022 12:55pm Start: 04-21-2021 End: 09-07-2021 take 1 tablet by mouth twice daily famotidine (PEPCID) 20 mg tablet Take 1 tablet by mouth twice daily. 0 04/21/2021 09/07/2021 Discontinued Comment on above: Take 1 tablet by stoney twice daily. Take by mouth. furosemide 40 mg oral tablet (20 sources) Loop Diuretic Start: 07-05-2023 End: 07-18-2024 Furosemide (Lasix) 40 mg tablet Discontinued 40 mg PO .PRN as needed for SOB, Edema August 04, 2023 12:41pm June 04, 2024 10:23am Start: 06-01-2023 End: 06-23-2023 take 1 tablet by mouth once daily Furosemide (Lasix) 40 mg tablet Discontinued 40 mg PO DAILY June 23, 2023 3:15pm June 23, 2023 3:39pm Has been taking it twice a day since 06/02/23 Start: 08-10-2021 End: 09-15-2023 take 1 tablet by mouth twice daily Furosemide (Lasix) 40 mg tablet Discontinued 40 mg PO TWICE A DAY June 23, 2023 4:00pm July 05, 2023 1:47pm Comment on above: Take 1 tablet by stoney th twice daily. Take 1 tablet by stoney th once daily as needed. iv contrast (will be provided with radiology test) (2 sources) Start: 2 End: 2 inject 1 dose intravenously once iv contrast (will be provided with radiology test) MRI Brain Inject, intravenously, once for 1 dose.No IV access, insert saline lock prior to beginning of sedation, infusion, injection of imaging exam.Discontinue saline lock post exam. If Pt. has a central line or IVAD, may access for administration according to line specific nursing protocol.Once exam is complete flush line and de-access according to line specific nursing protocol in the MR contrast administration guidelines link 1 Each 10/07/2021 10/08/2021 Start: 10-07-2021 End: 10-08-2021 inject 1 dose intravenously once iv contrast (will be provided with radiology test) MRI Brain Inject, intravenously, once for 1 dose.No IV access, insert saline lock prior to beginning of sedation, infusion, injection of imaging exam.Discontinue saline lock post exam. If Pt. has a central line or IVAD, may access for administration according to line specific nursing protocol.Once exam is complete flush line and de-access according to line specific nursing protocol in the MR contrast administration guidelines link 1 Each 0 10/07/2021 10/08/2021 Active Comment on above: MRI Brain Inject, intravenously, once fo r 1 dose.No IV access, insert saline lock prior to beginning of sedation, infusion, injection of imaging exam.Discontinue saline lock post exam. If Pt. has a central line or IVAD, may access for administration according to line specific nursing protocol.Once exam is complete flush line and de-access according to line specific nursing protocol in the MR contrast administration guidelines link L-Methylfolate (L-METHYLFOLATE) 7.5 mg tab (20 sources) Start: End: 2 take 1 tablet by mouth once daily L-Methylfolate (L-METHYLFOLATE) 7.5 mg tab Take 1 tablet by mouth once daily. 04/21/2021 05/25/2022 Discontinued Start: 04-21-2021 End: 05-25-2022 take 1 tablet by mouth once daily L-Methylfolate (L-METHYLFOLATE) 7.5 mg tab Take 1 tablet by mouth once daily. 0 04/21/2021 05/25/2022 Discontinued Start: 04-21-2021 take 1 tablet by stoney th once daily L-Methylfolate (L-METHYLFOLATE) 7.5 mg tab Take 1 tablet by mouth once daily. 0 04/21/2021 Active Comment on above: Take 1 tablet by stoney th once daily. lactulose 667 mg/ml oral solution (20 sources) Osmotic Laxative Start: 3 End: take 1 mL by mouth at bedtime as needed for constipation Lactulose 10 gram/15 mL solution Discontinued 15 mL PO AT BEDTIME as needed for constipation 473 6 March 01, 2023 3:27pm November 23, 2023 10:50am Start: 03-01-2023 End: 11-23-2023 take 1 mL by mouth at bedtime as needed for constipation Lactulose 10 gram/15 mL solution Discontinued 15 mL PO AT BEDTIME as needed for constipation 473 March 01, 2023 3:27pm November 23, 2023 10:50am Start: 03-01-2023 take 1 mL by mouth at bedtime Lactulose Active 15 ML PO AT BEDTIME 473 March 01, 2023 2:27pm Start: 03-01-2023 take 1 mL by mouth at bedtime Lactulose Active 15 ML PO AT BEDTIME 473 March 01, 2023 3:27pm Start: 09-02-2022 End: 11-23-2023 take 1 mL by mouth at bedtime as needed for constipation Lactulose 10 gram/15 mL solution Discontinued 15 mL PO AT BEDTIME as needed for constipation 473 6 March 01, 2023 3:27pm November 23, 2023 10:50am Comment on above: Take 10 g by mouth d aily at bedtime. [facility]. levomefolate (20 sources) Start: 11-28-2023 End: 06-04-2024 take 1 tablet by mouth once daily Levomefolate Calcium 7.5 mg tablet Discontinued 7.5 mg PO DAILY November 28, 2023 12:00am June 04, 2024 10:12am Start: 01-13-2022 End: 11-23-2023 take 1 tablet by mouth once daily Levomefolate Calcium (L-Methylfolate) 7.5 mg tablet Discontinued 7.5 mg PO DAILY January 13, 2022 12:00am November 23, 2023 10:51am Start: 01-13-2022 take 1 tablet by stoney th once daily Levomefolate Calcium (L-Methylfolate) 7.5 mg tablet Active 7.5 MG PO DAILY January 12, 2022 11:00pm Start: 01-13-2022 take 1 tablet by stoney th once daily Levomefolate Calcium (L-Methylfolate) 7.5 mg tablet Active 7.5 MG PO DAILY January 13, 2022 12:00am methylnaltrexone bromide 150 mg oral tablet (20 sources) Opioid Antagonist Start: 06-02-2022 End: 01-24-2023 take 1 tablet by mouth once daily in the morning Methylnaltrexone (Relistor) 150 mg tablet Discontinued 450 mg PO EVERY MORNING 90 30 0 June 02, 2022 1:00am July 01, 2022 1:00am June 09, 2022 11:05am Comment on above: Take by mouth. methylphenidate hydrochloride 20 mg oral tablet (20 sources) Central Nervous System Stimulant Start: 09-15-2022 End: 10-05-2022 take 1 tablet by mouth once daily in the evening Methylphenidate Hcl (Ritalin) 10 mg tablet Discontinued 10 mg PO EVERY EVENING 0 September 15, 2022 12:00am October 05, 2022 1:42pm Start: 09-15-2022 End: 10-05-2022 take 1 tablet by mouth once daily in the morning Methylphenidate Hcl (Ritalin) 20 mg tablet Discontinued 20 mg PO EVERY MORNING 0 September 15, 2022 12:00am October 05, 2022 1:42pm Start: 01-13-2022 End: 09-02-2022 take 1 tablet by mouth once daily Methylphenidate Hcl 20 mg tablet Discontinued 20 mg PO DAILY 0 January 13, 2022 12:00am September 02, 2022 12:56pm End: 10-05-2021 take 1 tablet by mouth once daily methylphenidate (RITALIN) 20 mg tablet Take 20 mg by mouth once daily. 0 10/05/2021 Discontinued Comment on above: Take 20 mg by mouth once daily. 20 mg in AM. 10 mg i n PM[facility] metoprolol tartrate 25 mg oral tablet (20 sources) beta-Adrenergic Alana Start: 07-17-2023 End: 02-27-2025 Metoprolol Tartrate 25 mg tablet Discontinued 12.5 mg PO TWICE A DAY July 17, 2023 1:00am February 27, 2025 9:45am blood pressure Start: 06-23-2023 End: 07-17-2023 Metoprolol Tartrate 25 mg ta blet Discontinued 12.5 mg PO DAILY 45 90 July 05, 2023 1:50pm July 17, 2023 10:41am Has only been taking it daily Start: 06-01-2023 End: 11-06-2024 take 0.5 tablet by mouth twice daily metoprolol tartrate, short acting, (LOPRESSOR) 25 mg tablet Indications: PAF (paroxysmal atrial fibrillation) (HCC) Take 0.5 tablets by mouth two times a day. 06/01/2023 11/06/2024 Discontinued (Discontinued by another Health Care Provider) Start: 06-01-2023 End: 06-23-2023 Metoprolol Tartrate 25 mg ta blet Discontinued 12.5 mg PO TWICE A DAY June 23, 2023 3:18pm June 23, 2023 3:37pm Has only been taking it daily Start: 06-01-2023 take 12.5 mg by mout h twice daily Metoprolol Tartrate Active 12.5 MG PO TWICE A DAY June 01, 2023 12:00am Comment on above: Take 0.5 tablets by mouth two times a day. mfolate calcium-mecobalamin 25,000 mcg DFE- 2,000 mcg cap (1 source) Start: 09-15-19 End: 09-15-19 mfolate calcium-mecobalamin 25,000 mcg DFE- 2,000 mcg cap Take by mouth. 0 09/15/2023 09/15/2023 Discontinued (Duplicate Entry) Comment on above: Take by mouth. montelukast 10 mg oral tablet (20 sources) Leukotriene Receptor Antagonist Start: 08-26-19 End: 11-07-19 take 1 tablet by mouth once daily in the evening Montelukast 10 mg tablet Discontinued 10 mg PO EVERY EVENING January 13, 2022 12:00am September 05, 2024 11:37pm Comment on above: Take 1 tablet by stoney th daily at bedtime. naloxegol 25 mg oral tablet (20 sources) Opioid Antagonist Start: 06-09-20 End: 09-03-19 take 1 tablet by mouth once daily in the morning Naloxegol (Movantik) 25 mg tablet Discontinued 25 mg PO EVERY MORNING 30 0 June 09, 2022 1:00am September 02, 2022 12:54pm must be taken on empty stomach; no food 1 hr after or 2-3 hrs before dose nitrofurantoin, macrocrystals 25 mg / nitrofurantoin, monohydrate 75 mg oral capsule (20 sources) Nitrofuran Antibacterial Start: 08-20-19 End: 09-03-19 take 1 capsule by mouth every twelve hours Nitrofurantoin Monohyd/M-Cryst 100 mg capsule Discontinued 100 mg PO EVERY 12 HOURS 10 August 19, 2022 1:00am September 02, 2022 12:56pm omeprazole 20 mg delayed release oral capsule (20 sources) Proton Pump Inhibitor Start: 09-16-19 End: 10-06-19 take 1 capsule by mouth once daily Omeprazole 20 mg capsule,delayed release(DR/EC) Discontinued 20 mg PO DAILY September 15, 2022 12:00am October 05, 2022 1:35pm End: 06-16-2023 take 1 tablet by mouth once daily Omeprazole Magnesium 20 mg tablet Take 20 mg by mouth once daily. 06/16/2023 Discontinued End: 10-05-2021 take 1 tablet by mouth once daily omeprazole 20 mg disintegrating tablet (PriLOSEC) Take 20 mg by mouth once daily. 0 10/05/2021 Discontinued Comment on above: Take 20 mg by mouth once daily. perflutren lipid microspheres 1.3 mL in NaCl (PF) 0.9% 10 mL injection (DEFINITY) (20 sources) Start: 07-26-2021 End: 09-23-2022 perflutren lipid microspheres 1.3 mL in NaCl (PF) 0.9% 10 mL injection (DEFINITY) Start: 07-26-2021 End: 10-25-2022 perflutren lipid microsphere s 1.3 mL in NaCl (PF) 0.9% 10 mL injection (DEFINITY) polyethylene glycol 3350 976214 mg / potassium chloride 2970 mg / sodium bicarbonate 6740 mg / sodium chloride 5860 mg / sodium sulfate 23693 mg powder for oral solution (10 sources) Osmotic Laxative Start: 07-05-2023 End: 11-23-2023 Peg 3350-Electrolytes (Golytely) 236-22.74-6.74 -5.86 gram recon soln Discontinued 240 mL PO Q10M 4000 0 July 05, 2023 1:00am November 23, 2023 10:52am until fecal effluent is clear rosuvastatin calcium 10 mg oral tablet (20 sources) HMG-CoA Reductase Inhibitor Start: 12-02-2021 End: 07-18-2025 take 1 tablet by mouth once daily Rosuvastatin 10 mg tablet Discontinued 10 mg PO DAILY September 15, 2022 12:00am September 05, 2024 11:36pm Comment on above: Take 1 tablet by stoney th daily at bedtime. selenium 200 mcg tablet (20 sources) Start: 04-21-2021 End: 01-16-2024 take 1 tablet by mouth once daily selenium 200 mcg tablet Take 1 tablet by mouth once daily. 04/21/2021 01/16/2024 Discontinued Start: 04-21-2021 End: 01-16-2024 take 1 tablet by mouth once daily selenium 200 mcg tablet Take 1 tablet by mouth once daily. 0 04/21/2021 01/16/2024 Discontinued Start: 04-21-2021 take 1 tablet by stoney th once daily selenium 200 mcg tablet Take 1 tablet by mouth once daily. 0 04/21/2021 Active Comment on above: Take 1 tablet by stoney th once daily. Selenium 200 mcg tablet (10 sources) Start: 01-14-20 End: 06-04-20 take 1 tablet by mouth once daily Selenium 200 mcg tablet Discontinued 200 ug PO DAILY January 13, 2022 12:00am June 04, 2024 10:23am 125 ml sodium chloride 9 mg/ml prefilled syringe (20 sources) Start: 07-26-19 End: 10-26-19 sodium chloride 0.9 % (flush) 10 mL (BD POSIFLUSH) spironolactone 25 mg oral tablet (20 sources) Aldosterone Antagonist Start: 04-30-20 End: 09-15-19 24 take 1 tablet by mouth once daily Spironolactone 25 mg tablet Discontinued 25 mg PO DAILY January 13, 2022 12:00am June 23, 2023 4:00pm Comment on above: Take 1 tablet by [facility] once daily. tamsulosin hydrochloride 0.4 mg oral capsule (20 sources) alpha-Adrenergic Alana Start: 08-28-19 End: 09-06-19 take 1 capsule by mouth once daily Tamsulosin 0.4 mg capsule Discontinued 0.4 mg PO DAILY January 13, 2022 12:00am September 05, 2024 11:36pm Comment on above: [facility]. verapamil hydrochloride 120 mg oral tablet (20 sources) Calcium Channel Alana Start: 12-16-19 take 0.5 tablet by mouth once daily in the evening verapamil 120 mg tablet Indications: PAF (paroxysmal atrial fibrillation) (HCC) Take 0.5 tablets by mouth every evening. 45 tablet 1 12/15/2022 Active Start: 09-15-2022 End: 06-23-2023 Verapamil 120 mg tablet Disc ontinued 60 mg PO EVERY EVENING 45 3 December 21, 2022 8:48am June 23, 2023 3:39pm Start: 09-15-2022 End: 09-15-2022 take 1 tablet by mouth once daily in the morning, then take 0.5 tablet by mouth once daily in the evening Verapamil 120 mg tablet Discontinued 0 PO .COMPLEX September 15, 2022 3:01pm September 15, 2022 3:19pm Take 1 tablet QAM, 0.5 tablet QPM orally; Start: 09-15-2022 End: 12-21-2022 take 60 mg by mouth once daily in the evening Verapamil Discontinued 60 MG PO EVERY EVENING September 15, 2022 2:18pm December 21, 2022 7:49am Start: 08-16-2022 End: 09-15-2022 take 1 tablet by mouth once daily in the morning, then take 0.5 tablet by mouth once daily in the evening Verapamil Discontinued 0 PO .COMPLEX September 15, 2022 2:01pm September 15, 2022 2:19pm Take 1 tablet QAM, 0.5 tablet QPM orally; Start: 05-25-2022 take 0.5 tablet by m outh once daily in the evening verapamil (CALAN, ISOPTIN) 120 mg tablet Indications: PAF (paroxysmal atrial fibrillation) ([facility]) Take 0.5 tablets by mouth every evening. 45 tablet 0 05/25/2022 Active Start: 04-06-2022 End: 04-06-2023 take 1.5 tablets by mouth once daily verapamil SR (CALAN SR) 120 mg CR tablet Indications: PAF (paroxysmal atrial fibrillation) ([facility]) Take 1.5 tablets by mouth once daily. 0 04/06/2022 05/25/2022 Discontinued (Duplicate Entry) Start: 01-13-2022 End: 09-15-2022 take 1 tablet by mouth twice daily Verapamil 120 mg tablet Discontinued 120 mg PO TWICE A DAY January 13, 2022 12:00am September 15, 2022 3:14pm Start: 08-19-2021 End: 09-15-2023 take 1 tablet by mouth once daily in the morning Verapamil 120 mg tablet extended release Discontinued 120 mg PO EVERY MORNING 90 3 November 21, 2022 4:16pm July 05, 2023 1:47pm Comment on above: Take 1 tablet by stoney th once daily. Take 1.5 tablets by mouth once daily. Take 1 tablet by stoney th every morning. Take 0.5 tablets by mouth every evening. vit B1 [id number]-C-F A (B COMPLEX W-VIT C) 05-85-44-5-250 mg tab (1 source) Start: 04-21-2021 End: 09-07-2021 vit B1 [id number]-C-FA (B COMPLEX W-VIT C) 38-87-79-5-250 mg tab Take 1 tablet by mouth once daily. 0 04/21/2021 09/07/2021 Discontinued Comment on above: Take 1 tablet by stoney th once daily. Vit B1 [id number]-J4-O7-R76-C-F a (B Complex W-Vit C) 20-70-21-5-250 mg tablet (20 sources) Start: 01-13-2022 End: 09-15-2022 Vit B1 Lw-U4-B3-O1-U6-R72-C-Fa (B Complex W-Vit C) 61-53-91-5-250 mg tablet Discontinued 1 {tbl} PO DAILY January 13, 2022 12:00am September 15, 2022 3:11pm Start: 01-13-2022 End: 09-15-2022 Vit B1 Dv-Y0-P4-H4-R8-V33-C- Fa (B Complex W-Vit C) 83-12-35-5-250 mg tablet Discontinued 1 TABLET PO DAILY January 12, 2022 11:00pm September 15, 2022 2:11pm Start: 01-13-2022 End: 09-15-2022 Vit B1 Ii-C0-T8-Z4-K4-D51-C- Fa (B Complex W-Vit C) 80-07-50-5-250 mg tablet Discontinued 1 TABLET PO DAILY January 13, 2022 12:00am September 15, 2022 3:11pm Start: 01-13-2022 Vit B1 Mn-B2-B 3-M5-O5-J72-P-Ti (B Complex W-Vit C) 33-66-32-5-250 mg tablet Active 1 TABLET PO DAILY January 12, 2022 11:00pm Start: 01-13-2022 Vit B1 Mn-B2-B 3-V8-U1-Z99-U-Tp (B Complex W-Vit C) 18-58-11-5-250 mg tablet Active 1 TABLET PO DAILY January 13, 2022 12:00am Vitamin B Complex capsule (20 sources) Start: 08-04-2023 End: 11-28-2023 Vitamin B Complex capsule Discontinued 1 NMA PO TWICE A WEEK August 04, 2023 12:27pm November 28, 2023 9:25am Start: 07-25-2023 End: 08-04-2023 Vitamin B Complex capsule Di scontinued 1 NMA PO 3 TIMES A WEEK July 25, 2023 10:40am August 04, 2023 12:28pm Start: 06-23-2023 End: 07-25-2023 Vitamin B Complex capsule Di scontinued 1 NMA PO 4 times per week June 23, 2023 3:22pm July 25, 2023 10:40am Start: 10-05-2022 End: 06-23-2023 Vitamin B Complex capsule Di scontinued 1 NMA PO DAILY October 05, 2022 12:00am June 23, 2023 3:23pm zinc sulfate 220 mg oral tablet (18 sources) Start: 10-05-2022 End: 12-21-2022 take 1 tablet by mouth once daily Zinc Sulfate 50 mg zinc (220 mg) tablet Discontinued 50 mg PO DAILY October 05, 2022 12:00am December 21, 2022 8:38am Problems Active Problems Problem Classification Problem Date Documented Da te Episodic/Chronic Abdominal pain (20 sources) Abdominal pain; Translations: [Unspecified abdominal pain] Episodic Anxiety disorders (20 sources) Mixed anxiety and depressive disorder; Translations: [Anxiety disorder, unspecified] Onset: 2 Chronic Asthma (20 sources) Mild intermittent asthma; Translations: [Mild intermittent asthma, uncomplicated] Onset: 2 Chronic Cardiac dysrhythmias (20 sources) Atrial fibrillation; Translations: [Unspecified atrial fibrillation] Onset: 2 09-08-2021 Chronic Cataract (1 source) Bilateral senile combined form cataracts of eyes; Translations: [Combined forms of age-related cataract, bilateral] Chronic Congestive heart failure; nonhypertensive (20 sources) Chronic diastolic heart failure; Translations: [Chronic diastolic (congestive) heart failure] Onset: 2 Chronic Developmental disorders (2 sources) 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 Diabetes mellitus with complications (20 sources) Type 2 diabetes mellitus; Translations: [Type 2 diabetes mellitus with diabetic neuropathy, unspecified] Onset: 1 Chronic Diabetes mellitus without complication (1 source) Diabetes mellitus type 2 without retinopathy; Translations: [Type 2 diabetes mellitus without complications] Chronic Disorders of lipid metabolism (20 sources) Mixed hyperlipidemia; Translations: [Mixed hyperlipidemia] Onset: 2 Chronic Disorders of teeth and jaw (1 source) Infection of tooth; Translations: [Periapical abscess without sinus] 09-22-2023 Episodic Esophageal disorders (20 sources) Gastroesophageal reflux disease; Translations: [Gastro-esophageal reflux disease without esophagitis] Onset: 5 06-25-2024 Chronic Essential hypertension (20 sources) Hypertensive disorder; Translations: [Essential (primary) hypertension] Onset: 5 08-19-2022 Chronic Gastrointestinal hemorrhage (10 sources) Lower gastrointestinal hemorrhage; Translations: [Gastrointestinal hemorrhage, unspecified] 07-05-2023 Episodic Genitourinary symptoms and ill-defined conditions (20 sources) Incontinence without sensory awareness; Translations: [Incontinence without sensory awareness] Onset: 4 12-13-2023 Chronic Headache; including migraine (1 source) Acute headache; Translations: [Acute nonintractable headache, unspecified headache type] Episodic Immunizations and screening for infectious disease (4 sources) Needs influenza immunization; Translations: [Encounter for immunization] Episodic Inflammation; infection of eye (except that caused by tuberculosis or sexually transmitteddisease) (1 source) Bilateral punctate keratitis of eyes; Translations: [Punctate keratitis, bilateral] Chronic Inflammation; infection of eye (except that caused by tuberculosis or sexually transmitteddisease) (1 source) Squamous blepharitis; Translations: [Squamous blepharitis right eye, upper and lower eyelids] Episodic Mood disorders (1 source) Mood disorders; Translations: [Anxiety and depression] Onset: 2 Nonmalignant breast conditions (1 source) Breast problem; Translations: [Other signs and symptoms in breast] 01-24-2023 Episodic Nonspecific chest pain (18 sources) Chest pain; Translations: [Chest pain, unspecified] 10-15-2022 Episodic Nutritional deficiencies (2 sources) Vitamin D deficiency; Translations: [Vitamin D deficiency, unspecified] Onset: 5 07-18-2024 Chronic Open wounds of extremities (20 sources) Laceration of right lower leg; Translations: [Laceration without foreign body, right lower leg, initial encounter] 10-21-2021 Episodic Other acquired deformities (11 sources) Scoliosis of lumbar spine; Translations: [Scoliosis, unspecified] 06-08-2023 Chronic Other acquired deformities (11 sources) Kyphosis of thoracic spine; Translations: [Unspecified kyphosis, thoracic region] 06-08-2023 Chronic Other acquired deformities (1 source) Scoliosis, unspecified; Translations: [Scoliosis [and kyphoscoliosis], idiopathic] 06-08-2023 Chronic Other acquired deformities (1 source) Unspecified kyphosis, thoracic region; Translations: [Kyphosis (acquired) (postural)] 06-08-2023 Chronic Other acquired deformities (15 sources) Cervical kyphosis; Translations: [Unspecified kyphosis, cervical region] 07-09-2024 Chronic Other aftercare (1 source) Wound finding; Translations: [Encounter for other specified aftercare] Episodic Other aftercare (17 sources) Long-term current use of anticoagulant; Translations: [assisted (current) use of anticoagulants] 09-05-2024 Episodic Other bone disease and musculoskeletal deformities (6 sources) Costal chondritis; Translations: [Chondrocostal junction syndrome [Tietze]] 09-26-2024 Episodic Other circulatory disease (10 sources) Low blood pressure; Translations: [Hypotension, unspecified] 06-23-2023 Episodic Other circulatory disease (9 sources) History of transient ischemic attack; Translations: [Personal history of transient ischemic attack (TIA), and cerebral infarction without residual deficits] 09-05-2024 Episodic Other connective tissue disease (1 source) Swelling of lower limb; Translations: [Other specified soft tissue disorders] Episodic Other connective tissue disease (1 source) Pain in both feet; Translations: [Pain in right foot] 08-03-2024 Episodic Other diseases of veins and lymphatics (20 sources) Stasis dermatitis; Translations: [Venous insufficiency (chronic) (peripheral)] 10-21-2021 Episodic Other gastrointestinal disorders (20 sources) Constipation alternates with diarrhea; Translations: [Other specified symptoms and signs involving the digestive system and abdomen] Onset: 06-02-2022 Episodic Other gastrointestinal disorders (7 sources) Other specified symptoms and signs involving the digestive system and abdomen; Translations: [Other symptoms involving digestive system] 06-02-2022 Episodic Other gastrointestinal disorders (18 sources) Constipation; Translations: [Constipation, unspecified] 04-10-2024 Episodic Other injuries and conditions due to external causes (2 sources) Injury of left hand; Translations: [Unspecified injury of left wrist, hand and finger(s), initial encounter] Episodic Other injuries and conditions due to external causes (1 source) Abrasion; Translations: [Other injury of unspecified body region, initial encounter] 02-22-2023 Episodic Other lower respiratory disease (20 sources) Dyspnea on exertion; Translations: [Other forms of dyspnea] 06-01-2023 Episodic Other lower respiratory disease (12 sources) Dyspnea; Translations: [Shortness of breath] 02-23-2024 Episodic Other lower respiratory disease (15 sources) Cough; Translations: [Cough] 07-26-2024 Episodic Other nervous system disorders (15 sources) Cervical myelopathy; Translations: [Disease of spinal cord, unspecified] 07-09-2024 Chronic Other nervous system disorders (1 source) Articulatory dyspraxia; 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] 11-06-2024 Episodic Other nervous system disorders (2 sources) Other speech disturbances; Translations: [Articulatory dyspraxia] Onset: Episodic Other nutritional; endocrine; and metabolic disorders (18 sources) Overweight in adulthood with body mass index of 25 or more but less than 30; Translations: [Body mass index (BMI) 27.0-27.9, adult] 09-19-2022 Episodic Other nutritional; endocrine; and metabolic disorders (4 sources) Body mass index (BMI) 27.0-27.9, adult; Translations: [Body Mass Index 27.0-27.9, adult] 09-19-2022 Episodic Other nutritional; endocrine; and metabolic disorders (1 source) Weight loss; Translations: [Abnormal weight loss] 04-21-2021 Episodic Other screening for suspected conditions (not mental disorders or infectious disease) (11 sources) Patient encounter status; Translations: [Encounter for screening mammogram for malignant neoplasm of breast] Episodic Other skin disorders (1 source) Localized swelling, mass and lump, right upper limb; Translations: [Localized superficial swelling, mass, or lump] 01-24-2023 Episodic Other upper respiratory disease (1 source) Bleeding from nose; Translations: [Epistaxis] Episodic Other upper respiratory infections (1 source) Bacterial sinusitis; Translations: [Chronic sinusitis, unspecified] 03-27-2024 Chronic Other upper respiratory infections (20 sources) Acute upper respiratory infection; Translations: [Acute upper respiratory infection, unspecified] Onset: 05-28-2021 Episodic Residual codes; unclassified (20 sources) Sleep apnea; Translations: [Sleep apnea, unspecified] 09-19-2022 Chronic Residual codes; unclassified (10 sources) Sleep apnea, unspecified; Translations: [Unspecified sleep apnea] Onset: 5 09-19-2022 Chronic Residual codes; unclassified (20 sources) Obstructive sleep apnea syndrome; Translations: [Obstructive sleep apnea (adult) (pediatric)] 01-20-2023 Chronic Comment on above: AHI is 15 Residual codes; unclassified (2 sources) Obstructive sleep apnea (adult) (pediatric); Translations: [Obstructive sleep apnea (adult)(pediatric)] 01-20-2023 Chronic Residual codes; unclassified (1 source) Insomnia; Translations: [Insomnia, unspecified] Episodic Residual codes; unclassified (1 source) Menopause present; Translations: [Asymptomatic menopausal state] Episodic Residual codes; unclassified (1 source) Postmenopausal state; Translations: [Asymptomatic menopausal state] Episodic Skin and subcutaneous tissue infections (1 source) Infection of skin; Translations: [Local infection of the skin and subcutaneous tissue, unspecified] 02-22-2023 Episodic Spondylosis; intervertebral disc disorders; other back problems (2 sources) Degeneration of cervical intervertebral disc; Translations: [Other cervical disc degeneration, unspecified cervical region] Chronic Substance-related disorders (1 source) Opioid dependence, uncomplicated; Translations: [Opioid dependence, uncomplicated] Onset: 5 Chronic Superficial injury; contusion (12 sources) Contusion of right hand, initial encounter; Translations: [Contusion of dorsum of right hand] 06-01-2023 Episodic Thyroid disorders (20 sources) Hypothyroidism; Translations: [Hypothyroidism, unspecified] Onset: 2 09-07-2021 Chronic Transient cerebral ischemia (1 source) Cerebral ischemia; Translations: [Transient cerebral ischemic attack, unspecified] Chronic Unclassified (2 sources) Cough, unspecified; Translations: [Cough, unspecified] Onset: 5 Past or Other Problems Problem Classification Problem Date Documented Da te Episodic/Chronic Cardiac dysrhythmias (1 source) Palpitations; Translations: [Palpitations] Onset: 06-13-2024 Episodic Conditions associated with dizziness or vertigo (20 sources) Dizziness; Translations: [Dizziness and giddiness] Onset: 09-07-2021 Episodic Malaise and fatigue (20 sources) Asthenia; Translations: [Weakness] Onset: 02-23-2024 04-17-2021 Episodic Nausea and vomiting (1 source) Nausea with vomiting, unspecified; Translations: [Nausea with vomiting, unspecified] Onset: 04-30-2024 Episodic Other aftercare (1 source) Encounter for therapeutic drug level monitoring; Translations: [Encounter for therapeutic drug level monitoring] Onset: 10-10-2024 Episodic Other aftercare (1 source) assisted (current) use of anticoagulants; Translations: [assisted (current) use of anticoagulants] Onset: 09-16-2024 Episodic Other bone disease and musculoskeletal deformities (20 sources) Osteopenia; Translations: [Other specified disorders of bone density and structure, unspecified site] Onset: 01-16-2024 01-16-2024 Episodic Other circulatory disease (1 source) Personal history of transient ischemic attack (TIA), and cerebral infarction without residual deficits; Translations: [Personal history of transient ischemic attack (TIA), and cerebral infarction without residual deficits] Onset: 09-16-2024 Episodic Other connective tissue disease (20 sources) Recurrent falls ; Translations: [Repeated falls] Onset: 09-07-2021 Episodic Other connective tissue disease (1 source) Repeated falls; Translations: [Frequent falls] Onset: 02-23-2024 Episodic Other gastrointestinal disorders (1 source) Constipation, unspecified; Translations: [Constipation, unspecified] Onset: 12-04-2024 Episodic Other lower respiratory disease (5 sources) Other forms of dyspnea; Translations: [Other respiratory abnormalities] Onset: 02-23-2024 06-01-2023 Episodic Other lower respiratory disease (2 sources) Shortness of breath; Translations: [SOB (shortness of breath)] Onset: 02-23-2024 Episodic Other lower respiratory disease (1 source) Chronic cough; Translations: [Chronic cough] Onset: 09-20-2024 Episodic Other nervous system disorders (20 sources) Impaired cognition; Translations: [Other symptoms and signs involving cognitive functions and awareness] Onset: 05-25-2023 05-25-2023 Episodic Other nervous system disorders (1 source) Other symptoms and signs involving cognitive functions and awareness; Translations: [Cognitive decline] Onset: 12-14-2023 Episodic Other non-traumatic joint disorders (11 sources) Pain in right shoulder; Translations: [Right shoulder pain] Onset: 12-02-2024 12-02-2024 Episodic Residual codes; unclassified (20 sources) Other specified personal risk factors, not elsewhere classified; Translations: [Other specified personal history presenting hazards to health] Onset: 08-07-2022 Resolved: 09-16-2023 08-07-2022 Episodic Residual codes; unclassified (20 sources) Anticoagulation declined; Translations: [Procedure and treatment not carried out because of patient's decision for unspecified reasons] Onset: 08-07-2022 Resolved: 09-16-2023 08-07-2022 Episodic Spondylosis; intervertebral disc disorders; other back problems (20 sources) Cervical radiculopathy; Translations: [Radiculopathy, cervical region] Onset: 09-07-2021 Episodic Urinary tract infections (20 sources) Urinary tract infectious disease; Translations: [Urinary tract infection, site not specified] Onset: 09-17-2024 08-19-2022 Episodic Results Test Name Value Interpretation Reference Range Facility Urine Cultureon 03-07-2025 U[facility] Identification and sensitivity to follow. GNR lactose vice president network [place] Count >100,000 Normal [facility] Comment on above: Performed By: #### M 100.2200, L400.0001 ####[facility] [address], [address] Urinalysis, Completeon 03-06 EPI,SQUAMOUS 0-5 SEEN Normal 5-10 [facility] Comment on above: Order Comment: CLEAN CATCH Performed By: #### M 100.2200, L400.0001 ####[facility] [address] [place], [address] WBC 0-5 SEEN Normal 0-5 [facility] Comment on above: Order Comment: CLEAN CATCH Performed By: #### M 100.2200, L400.0001 ####[facility] [address] [place], [address] BACTERIA 0 SEEN Normal None Seen [facility] Comment on above: Order Comment: CLEAN CATCH Performed By: #### M 100.2200, L400.0001 ####[facility] [address] [place], [address] Mucus Ql (Urine sed) 0 SEEN Normal [facility] Comment on above: Order Comment: CLEAN CATCH Performed By: #### M 100.2200, L400.0001 ####[facility] [address] [place], [address] RBC 0 SEEN Normal 0-5 [facility] Comment on above: Order Comment: CLEAN CATCH Performed By: #### M 100.2200, L400.0001 ####[facility] [address] [place], [address] Cardiology Visit Reporton Cardiology Visit Report Normal [facility] ALBUMIN/CREATININE RATIO, UR INEon 01-16-2025 Albumin DL <= 20 mg/L (U) [Mass/Vol] 16.1 mg/L Normal [facility] Comment on above: Order Comment: Speci men Type: URINE SPECIMENOrdering Facility: [facility] Address: [address] [place] [address] Performed By: #### U ACR ####[facility] [id number] [place] [address] [place] Albumin/Creatinine (U) [Mass ratio] 22 mg/g Normal <30 [facility] Comment on above: Order Comment: Speci men Type: URINE SPECIMENOrdering Facility: [facility] Address: [address] [place] [address] Result Comment: Adul t Male and Female Nephrotic Criteria: <30 mg/g is considered normal to mildly increased 30-300 mg/g is considered moderately increased >300 mg/g is considered severely increased KDIGO. (2013). KDIGO 2012 Clinical Practice Guideline for the Evaluation and Management of Chronic Kidney Disease. Official Journal of the International Society of Nephrology, 3(1), 1-150. Performed By: #### U ACR ####[facility] [id number] [address] [place] Creatinine (U) [Mass/Vol] 72.9 mg/dL Normal 20.0-300.0 [facility] Comment on above: Order Comment: Speci men Type: URINE SPECIMENOrdering Facility: [facility] Address: [address] [place] [address] Performed By: #### U ACR ####[facility] [id number] [place] [address] [place] CBC panel Auto (Bld)on 01-16 Erythrocyte distribution width (RBC) [Ratio] 12.3 % Normal 11.5-15.0 [facility] Comment on above: Order Comment: Speci men Type: BLOOD SPECIMEN Ordering Facility: [facility] Address: [address] [place] [address] Performed By: #### 5 5454-3 #### [facility] CLIA [id number] [address] [place] [address] [place] Hematocrit (Bld) [Volume fraction] 43.2 % Normal 36.0-46.0 [facility] Comment on above: Order Comment: Speci men Type: BLOOD SPECIMEN Ordering Facility: [facility] Address: [address] [place] [address] Performed By: #### 5 5454-3 #### [facility] CLIA [id number] [address] [place] [address] [place] Hemoglobin (Bld) [Mass/Vol] 13.4 g/dL Normal 11.5-15.5 [facility] Comment on above: Order Comment: Speci men Type: BLOOD SPECIMEN Ordering Facility: [facility] Address: [address] [place] [address] Performed By: #### 5 5454-3 #### [facility] CLIA [id number] [address] [place] [address] [place] MCH (RBC) [Entitic mass] 29.1 pg Normal 26.0-34.0 [facility] Comment on above: Order Comment: Speci men Type: BLOOD SPECIMEN Ordering Facility: [facility] Address: [address] [place] [address] Performed By: #### 5 5454-3 #### [facility] CLIA [id number] [address] [place] [address] [place] MCHC (RBC) [Mass/Vol] 31.0 g/dL Normal 30.5-36.0 [facility] Comment on above: Order Comment: Speci men Type: BLOOD SPECIMEN Ordering Facility: [facility] Address: [address] [place] [address] Performed By: #### 5 5454-3 #### [facility] CLIA [id number] [address] [place] [address] [place] MCV (RBC) [Entitic vol] 93.7 fL Normal 80.0-100.0 [facility] Comment on above: Order Comment: Speci men Type: BLOOD SPECIMEN Ordering Facility: [facility] Address: [address] [place] [address] Performed By: #### 5 5454-3 #### [facility] CLIA [id number] [address] [place] [address] [place] Nucleated RBC (Bld) [#/Vol] 10*3/uL Normal <0.01 [facility] Comment on above: Order Comment: Speci men Type: BLOOD SPECIMEN Ordering Facility: [facility] Address: [address] [place] [address] Performed By: #### 5 5454-3 #### [facility] CLIA [id number] [address] [place] [address] [place] Platelet mean volume (Bld) [Entitic vol] 9.4 fL Normal 9.0-12.7 [facility] Comment on above: Order Comment: Speci men Type: BLOOD SPECIMEN Ordering Facility: [facility] Address: [address] [place] [address] Performed By: #### 5 5454-3 #### [facility] CLIA [id number] [address] [place] [address] [place] Platelets (Bld) [#/Vol] 297 10*3/uL Normal 150-400 [facility] Comment on above: Order Comment: Speci men Type: BLOOD SPECIMEN Ordering Facility: [facility] Address: [address] [place] [address] Performed By: #### 5 5454-3 #### [facility] CLIA [id number] [address] [place] [address] [place] RBC (Bld) [#/Vol] 4.61 10*6/uL Normal 3.90-5.20 [facility] Comment on above: Order Comment: Speci men Type: BLOOD SPECIMEN Ordering Facility: [facility] Address: [address] [place] [address] Performed By: #### 5 5454-3 #### [facility] CLIA [id number] [address] [place] [address] [place] WBC (Bld) [#/Vol] 10.05 10*3/uL Normal 3.70-11.00 [facility] Comment on above: Order Comment: Speci men Type: BLOOD SPECIMEN Ordering Facility: [facility] Address: [address] [place] [address] Performed By: #### 5 5454-3 #### [facility] CLIA [id number] [address] [place] [address] [place] CNOVon 01-16-2025 CNOV Office Visit (INTMWS ) ERICA,EMBER ([id number]) 1950 F Date Time Provider Department 01/16/25 9:20 AM DAJUAN ERIC INTMWS During your visit today, we recorded the following information about you: Pulse Respiration Blood pressure Weight 60/minute 16/minute 104/60 66.6 kg Height 1.626 m Dajuan Eric MD 01/16/2025 10:07 AM Signed Ember Maldonado is a 74 year old female here for a Medicare wellness visit. Medicare Health Risk Assessment General Health Fair Exercise: Minutes/Day 30 min Exercise: Days/Week 5 days Alcohol: Daily Use Never Alcohol: Drinks/Day Patient does not drink Alcohol: 6 or more drinks Never Feel off balance Yes Concerns: Teeth/Dentures No Concerns: Sexual function No Troubled by feelings Anxious; Stressed; Angry; Irritable Frequency: Eating healthy diet Several days ADLs requiring help Grocery shopping; Cooking; Housework; Managing urine leakage; Handling finances; Driving Safety precautions in home/vehicle Yes Smoke, vape, chews tobacco No Difficulty hearing No Difficulty seeing No Current Providers Specialists: I have reviewed specialist-related care of the patient in the medical record. Current care team: Patient Care Team: Dajuan Eric MD as PCP - General (Internal Medicine) Taylor Alfonso APRN.TECHNICAL SERVICES COORDINATOR as Nurse Practitioner (Cardiology) Kayce Nix APRN.CNP as Reroller Hand (Internal Medicine) Outside specialists seen: Cardiology- Dr. Powers [facility] [place]- Dr. Scotty Jackson. Environmental Safety Specialist- Dr. Rafi Arshad - Dr. Charles Blas Pain management- Dr. Marisel Carter Orthopedics: Dr. Saji Parker. Neurology: Dr. John Mills. Medical/Family history review Reviewed and updated problem list, medical/surgical/family/soc ial history, medications, and allergies. Opioid use review Opioid Medications (last 90 days) 11/06/2024 10:21 01/16/2025 09:06 Opioid Medications hydrocodone/acetaminophen Take 1 tablet by mouth three times a day. From Dr. Diana Carter. [address] Diana Carter. PO Patient taking differently: 1 Tab BID as of 01/16/2025 9:06 AM buprenorphine Apply 1 patch as directed one time a week. 1 patch 1/WK TD Details Medication marked as long-term Patient taking differently or Patient-reported Prescribed No opioid use on file in the last 90 days Does patient have risk factors for opioid abuse? No Pain overview Current pain concerns and treatment plan reviewed. Patient under the care of a specialist. Anxiety/Depression screening Recommendation: continuing current treatment plan Cognitive screening Mini Cog Score: 3 Cognitive screening reviewed and No further action needed (score 3-5). Functional Observation Was the patient's Timed Up AND Go test unsteady or >= 12 seconds? No Advance Care Planning Patient did not wish or was not able to name a surrogate decision maker or provide an advance care plan Measurements BP 104/60 (BP Site: Left Arm, BP Position: Sitting, BP Cuff Size: Large Adult) Pulse 60 Resp 16 Ht 162.6 cm (5' 4) Wt 66.6 kg (146 lb 13.2 oz) BMI 25.20 kg/m? Vision Screening: Follows with optometry/ophthalmology Right: 20/40 Left: 20/ 40 Both: 20/50 Assessment/Plan Medicare annual wellness visit, subsequent (Z00.00) - Counseled on healthy diet and regular exercise - Fall avoidance information provided - Personalized prevention plan provided Dajuna Eric MD 01/16/2025 9:44 AM Signed Screening schedule The following prevention plan is recommended: Mammogram Screening due on 09/29/2022 Shingrix Vaccine(2 of 2) due on 02/23/2024 Advance Directive Discussion due on 06/12/2024 Medicare Advantage Annual Wellness Visit due on 06/12/2024 HbA1C due on 01/15/2025 Urine Albumin:Creatinine Ratio due on 01/15/2025 LDL Cholesterol due on 01/15/2025 Diabetic Foot Exam due on 01/15/2025 WHAT YOU CAN DO TO PREVENT FALLS [...] review all the medicines you take, even [id number]-[id number] medicines. As you get older, the way medicines work in your body can change. Some medicines, or combinations of medicines, can make you sleepy or dizzy and can cause you to fall. 3. Have your vision checked Have your eyes checked by an (more content not included)... Normal [facility] Comprehensive metabolic 2000 panelon 01-16-2025 Albumin [Mass/Vol] 3.8 g/dL Low 3.9-4.9 [facility] Comment on above: Order Comment: Speci men Type: BLOOD SPECIMEN [facility] Address: [address] [place] [address] Performed By: #### 5 5454-3 #### [facility] CLIA [id number] [address] [place] [address] [place] ALP [Catalytic activity/Vol] 96 U/L Normal 34-123 [facility] Comment on above: Order Comment: Speci men Type: BLOOD SPECIMEN [facility]: [facility] Address: [address] [place] [address] Performed By: #### 5 5454-3 #### [facility] CLIA [id number] [address] [place] [address] [place] ALT [Catalytic activity/Vol] 28 U/L Normal 7-38 [facility] Comment on above: Order Comment: Speci men Type: BLOOD SPECIMEN Ordering Facility: [facility] Address: [address] [place] [address] Performed By: #### 5 5454-3 #### [facility] CLIA [id number] [address] [place] [address] [place] Anion gap [Moles/Vol] 9 mmol/L Normal 8-15 [facility] Comment on above: Order Comment: Speci men Type: BLOOD SPECIMEN Ordering Facility: [facility] Address: [address] [place] [address] Performed By: #### 5 5454-3 #### [facility] CLIA [id number] [address] [place] [address] [place] AST [Catalytic activity/Vol] 31 U/L Normal 13-35 [facility] Comment on above: Order Comment: Speci men Type: BLOOD SPECIMEN Order[facility]: [facility] Address: [address] [place] [address] Performed By: #### 5 5454-3 #### [facility] CLIA [id number] [address] [place] [address] [place] Bilirubin [Mass/Vol] 0.2 mg/dL Normal 0.2-1.3 [facility] Comment on above: Order Comment: Speci men Type: BLOOD SPECIMEN Ordering Facility: [facility] Address: [address] [place] [address] Performed By: #### 5 5454-3 #### [facility] CLIA [id number] [address] [place] [address] [place] Calcium [Mass/Vol] 9.3 mg/dL Normal 8.5-10.2 [facility] Comment on above: Order Comment: Speci men Type: BLOOD SPECIMEN Order[facility] Facility: [facility] Address: [address] [place] [address] Performed By: #### 5 5454-3 #### [facility] CLIA [id number] [address] [place], [place] [id number] [place] Chloride [Moles/Vol] 103 mmol/L Normal 98-107 [facility] Comment on above: Order Comment: Speci men Type: BLOOD SPECIMEN Order[facility] Facility: [facility] Address: [address] [place] [address] Performed By: #### 5 5454-3 #### [facility] CLIA [id number] [address] [place] [address] [place] CO2 [Moles/Vol] 27 mmol/L Normal 22-30 [facility] Comment on above: Order Comment: Speci men Type: BLOOD SPECIMEN Ordering Facility: [facility] Address: [address] [place] [address] Performed By: #### 5 5454-3 #### [facility] CLIA [id number] [address] [place] [address] [place] Creatinine [Mass/Vol] 0.73 mg/dL Normal 0.58-0.96 [facility] Comment on above: Order Comment: Speci men Type: BLOOD SPECIMEN Ordering Facility: [facility] Address: [address] [place] [address] Performed By: #### 5 5454-3 #### [facility] CLIA [id number] [address] [place] [address] [place] eGFRcr SerPlBld CKD-EPI 2020 88 mL/min/1.73m??? Normal >=60 [facility] Comment on above: Order Comment: Speci men Type: BLOOD SPECIMEN Ordering Facility: [facility] Address: [address] [place] [address] Result Comment: Trang mated Glomerular Filtration Rate (eGFR) is calculated using the 2020 CKD-EPI creatinine equation. This equation utilizes serum creatinine, sex, and age as parameters. The creatinine assay has traceable calibration to isotope dilution-mass spectrometry. Refer to KDIGO guidelines for clinical interpretation. In patients with unstable renal function, e.g. those with acute kidney injury, the eGFR may not accurately reflect actual GFR. Performed By: #### 5 5454-3 #### [facility] CLIA [id number] [address] [place] [address] [place] Glucose [Mass/Vol] 130 mg/dL High 74-99 [facility] Comment on above: Order Comment: Speci men Type: BLOOD SPECIMEN Ordering Facility: [facility] Address: [address] [place] [address] Result Comment: The [place] Diabetes Association (ADA) provides guidance for cutoff values for fasting glucose and random glucose. The ADA defines fasting as no caloric intake for at least 8 hours. Fasting plasma glucose results between 100 to 125 mg/dL indicate increased risk for diabetes (prediabetes). Fasting plasma glucose results greater than or equal to 126 mg/dL meet the criteria for diagnosis of diabetes. In the absence of unequivocal hyperglycemia, results should be confirmed by repeat testing. In a patient with classic symptoms of hyperglycemia or hyperglycemic crisis, random plasma glucose results greater than or equal to 200 mg/dL meet the criteria for diagnosis of diabetes. Reference: Standards of Medical Care in Diabetes 2016, [place] Diabetes Association. Diabetes Care. 2016.39(Suppl 1). Performed By: #### 5 5454-3 #### [facility] CLIA [id number] [address] [place] [address] [place] Potassium [Moles/Vol] 4.2 mmol/L Normal 3.7-5.1 [facility] Comment on above: Order Comment: Speci men Type: BLOOD SPECIMEN Ordering Facility: [facility] Address: [address] [place] [address] Performed By: #### 5 5454-3 #### [facility] CLIA [id number] [address] [place] [address] [place] Protein [Mass/Vol] 6.4 g/dL Normal 6.3-8.0 [facility] Comment on above: Order Comment: Speci men Type: BLOOD SPECIMEN Ordering Facility: [facility] Address: [address] [place] [address] Performed By: #### 5 5454-3 #### [facility] CLIA [id number] [address] [place] [address] [place] Sodium [Moles/Vol] 139 mmol/L Normal 136-144 [facility] Comment on above: Order Comment: Speci men Type: BLOOD SPECIMEN Ordering Facility: [facility] Address: [address] [place] [address] Performed By: #### 5 5454-3 #### [facility] CLIA [id number] [address] [place] [address] [place] Urea nitrogen [Mass/Vol] 16 mg/dL Normal 7-21 [facility] Comment on above: Order Comment: Jorge Luis coreas Type: BLOOD SPECIMEN Ordering Facility: [facility] Address: [address] [place] [address] Performed By: #### 5 5454-3 #### [facility] CLIA [id number] [address] [place] [address] [place] HbA1c (Bld)on 01-16-2025 Average glucose Estimated from glycated hemoglobin (Bld) [Mass/Vol] 151 mg/dL Normal [facility] Comment on above: Order Comment: Jorge Luis coreas Type: BLOOD SPECIMEN Ordering Facility: [facility] Address: [address] [place] [address] Result Comment: eAG: (Estimated average glucose) is a calculated value from HgbA1c and is manufacturers service representative of the average blood glucose level in the last 2-3 month period. Performed By: #### 5 5454-3 #### [facility] CLIA [id number] [address] [place] [address] [place] HbA1c (Bld) [Mass fraction] 6.9 % High 4.3-5.6 [facility] Comment on above: Order Comment: Jorge Luis coreas Type: BLOOD SPECIMEN Ordering Facility: [facility] Address: [address] [place] [address] Result Comment: [place] Diabetes Association guidelines indicate that patients with HgbA1c in the range 5.7-6.4% are at increased risk for development of diabetes, and intervention by lifestyle modification may be beneficial. HgbA1c greater or equal to 6.5% is considered diagnostic of diabetes. Performed By: #### 5 5454-3 #### [facility] CLIA [id number] [address] [place], [place] [id number] [place] LIPID PANEL, NONFASTINGon Cholesterol [Mass/Vol] 144 mg/dL Normal <200 [facility] Comment on above: Order Comment: Speci men Type: BLOOD SPECIMEN Ordering Facility: [facility] Address: [address] [place] [address] Result Comment: <200 mg/dL, Desirable 200-239 mg/dL, Borderline high >239 mg/dL, High Performed By: #### 5 5454-3 #### [facility] CLIA [id number] [address] [place] [address] [place] HDL CHOLESTEROL, NF 58 mg/dL Normal >39 [facility] Comment on above: Order Comment: Speci men Type: BLOOD SPECIMEN Ordering Facility: [facility] Address: [address] [place] [address] Result Comment: 40-5 9 mg/dL, Acceptable >59 mg/dL, High: Negative risk factor for coronary heart disease <40 mg/dL, Low: Positive risk factor for coronary heart disease Performed By: #### 5 5454-3 #### [facility] CLIA [id number] [address] [place] [address] LDL CHOLESTEROL CALCULATED, NF 70 mg/dL Normal <100 [facility] Comment on above: Order Comment: Jorge Luis lyudmila Type: BLOOD SPECIMEN Ordering Facility: [facility] Address: [address] [place] [address] Result Comment: <100 mg/dL, Optimal 100-129 mg/dL, Near optimal/above optimal 130-159 mg/dL, Borderline high 160-189 mg/dL, High >189 mg/dL, Very high Secondary prevention optimal LDL Cholesterol levels are recommended to be <70 mg/dL LDL cholesterol is calculated using the Kendrick-NIH equation. Performed By: #### 5 5454-3 #### [facility] CLIA [id number] [address] [place] [address] [place] LDL/HDL RATIO, NF 1.21 mg/dL Normal <2.54 [facility] Comment on above: Order Comment: Jorge Luis coreas Type: BLOOD SPECIMEN Ordering Facility: [facility] Address: [address] [place] [address] Result Comment: Refe rence: 1. National Cholesterol Education Program ATP III Guideline At-A-Glance Quick Desk Reference: National Heart, Lung, and Blood [place]. National Institutes of Health. 2001: NIH Publication No. 01-3305. 2. An International Atherosclerosis Society position paper: global recommendations for the management of dyslipidemia: executive summary, Atherosclerosis. 2014: 232(2):410-413. Performed By: #### 5 5454-3 #### [facility] CLIA [id number] [address] [place] [address] [place] NON HDL CHOL, NF 86 mg/dL Normal <130 [facility] Comment on above: Order Comment: Speci men Type: BLOOD SPECIMEN Ordering Facility: [facility] Address: [address] [place] [address] Result Comment: <130 mg/dL, Optimal 130-159 mg/dL, Near optimal/above optimal 160-189 mg/dL, Borderline high 190-219 mg/dL, High >219 mg/dL, Very high Secondary prevention optimal non HDL Cholesterol levels are recommended to be <100 mg/dL Performed By: #### 5 5454-3 #### [facility] CLIA [id number] [address] [place] [address] [place] T CHOL/HDL RATIO NF 2.48 mg/dL Normal <5.10 [facility] Comment on above: Order Comment: Jorge Luis coreas Type: BLOOD SPECIMEN Ordering Facility: [facility] Address: [address] [place] [address] Performed By: #### 5 5454-3 #### [facility] CLIA [id number] [address] [place] [address] [place] TRIGLYCERIDES, NF 83 mg/dL Normal <150 [facility] Comment on above: Order Comment: Jorge Luis coreas Type: BLOOD SPECIMEN Ordering Facility: [facility] Address: [address] [place] [address] Result Comment: <150 mg/dL, Normal 150-199 mg/dL, Borderline high 200-499 mg/dL, High >499 mg/dL, Very high Performed By: #### 5 5454-3 #### [facility] CLIA [id number] [address] [place] [address] [place] VLDL CHOLESTEROL, NF 12 mg/dL Normal <30 [facility] Comment on above: Order Comment: Speci men Type: BLOOD SPECIMEN Ordering Facility: [facility] Address: [address] [place] [address] Performed By: #### 5 5454-3 #### [facility] IA [id number] [address] [place] [address] [place] T4 Free SerPl-mCncon 025 Free T4 [Mass/Vol] 1.3 ng/dL Normal 0.9-1.7 [facility] Comment on above: Order Comment: Speci men Type: BLOOD SPECIMEN Ordering Facility: [facility] Address: [address] [place] [address] Performed By: #### 5 5454-3 #### [facility] IA [id number] [address] [place] [address] [place] TSH SerPl-aCncon 01-16-2025 TSH Qn 1.770 m[IU]/L Normal 0.270-4.200 [facility] Comment on above: Order Comment: Speci men Type: BLOOD SPECIMEN Ordering Facility: [facility] Address: [address] [place] [address] Performed By: #### 5 5454-3 #### [facility] IA [id number] [address] [place] [address] [place] Brain/Head without Contrasto n 12-18-2024 Brain/Head without Contrast Normal [facility] CNPRita 12-18-2024 CNPN Telephone (INTMWS) EMBER MALDONADO ([id number]) 1950 F Date Time Provider Department 12/18/24 DAJUAN ERIC INTMWS During your visit today, we recorded the following information about you: Summer Hood LPN 12/18/2024 11:44 AM Addendum Pt completed CT at [facility]. Please review. View External Imaging - CT Scan [ID [id number]] Dajuan Eric MD 12/19/2024 12:[address] scan with no acute findings of concern. Did she see neurology? Bernadette Lora LPN 12/19/2024 1:28 PM Signed Patient notified of results. Scheduled to see Dr. Mills/[facility] @ 04/22 Bernadette Lora LPN Allergies As of Date: 12/18/2024 Noted Allergy Reaction SULFA (SULFONAMIDE ANTIBIOTICS) 04/21/2021 10 - Anaphylaxis COMPAZINE (PROCHLORPERAZINE) 09/23/2022 1 - Mental Status Change LYRICA (PREGABALIN) 12/26/2022 1 - Mental Status Change METFORMIN 09/22/2023 8 - GI Upset Comments: Severe stomach pain MOSQUITOS 05/25/2023 10 - Anaphylaxis TORADOL (KETOROLAC) 12/26/2022 14 - Other: See Comments Comments: Causes pain Date Reviewed: 11/06/2024 Reviewed by: Bernadette Lora LPN - Fully Assessed Reason for Visit: Results [95] Prescriptions as of 12/19/2024 - amiodarone (PACERONE) 200 mg tablet Take 200 mg by mouth once daily. - gabapentin (NEURONTIN) 300 mg capsule Take 2 capsules by mouth three times a day AND 3 capsules daily at bedtime. Do all this for 90 days. - montelukast (SINGULAIR) 10 mg tablet Take 1 tablet by mouth daily at bedtime. - linaCLOtide (LINZESS) 290 mcg capsule Take 1 capsule by mouth daily at 6 am. Take capsule on an empty stomach at least 30 minutes before a meal at the same time each day. Capsule should be swallowed whole. DO NOT chew or crush. - HYDROcodone-acetaminophen (NORCO) 5-325 mg per tablet Take 1 tablet by mouth three times a day. From Dr. Diana Carter. - buprenorphine (BUTRANS) 10 mcg/hour transdermal patch Apply 1 patch as directed one time a week. - esomeprazole (NEXIUM) 40 mg capsule Take 1 capsule by mouth once daily. - lidocaine (LIDODERM) 5 % Apply 1 patch as directed once daily. to affected area. Remove patch after 12 hours. - fluticasone furoate (ARNUITY ELLIPTA) 200 mcg/actuation inhaler Inhale 1 puff as instructed once daily. - GUAIFENESIN ORAL Take 10 mL by mouth every 4 hours as needed. - rosuvastatin (CRESTOR) 10 mg tablet Take 1 tablet by mouth daily at bedtime. - furosemide (LASIX) 40 mg tablet Take 1 tablet by mouth once daily as needed. - albuterol HFA (PROVENTIL HFA, VENTOLIN HFA) 90 mcg/actuation inhaler Inhale 2 Puffs as instructed every 6 hours as needed for wheezing/shortness of breath. - empagliflozin (JARDIANCE) 25 mg tablet Take 1 tablet by mouth daily with breakfast. - potassium chloride ER (KLOR-CON) 20 mEq tablet Take 1 tablet by mouth once daily as needed (with furosemide). - ondansetron (ZOFRAN) 4 mg tablet Take by mouth every 8 hours as needed for nausea/vomiting. - tiZANidine HCl (ZANAFLEX) 2 mg capsule Take 1 capsule by mouth daily at bedtime. For muscle spasms. - bisacodyl (DULCOLAX) 10 mg supp 1 Suppository by RECTAL route once daily as needed for constipation. If MOM ineffective. - aluminum-magnesium hydroxide (MAG-AL) 200-200 mg/5 mL suspension Take 30 mL by mouth every 4 hours as needed (GI distress). - simethicone, chewable (MYLICON) 80 mg chewable tablet Take 1 tablet by mouth four times a day as needed (gas, bloating). - tamsulosin (FLOMAX) 0.4 mg Take 1 capsule by mouth once daily. - GLIPIZIDE ORAL Take 2.5 mg by mouth once daily. - ipratropium-albuterol (DUONEB) 0.5 mg-3 mg(2.5 mg base)/3 mL nebu Inhale 3 mL as instructed every 6 hours as needed for wheezing/shortness of breath. - magnesium oxide 400 mg magnesium tab Take 1 tablet by mouth at bedtime as needed (for leg cramps). - magnesium hydroxide (MILK OF MAGNESIA) 400 mg/5 mL suspension Take 30 mL by mouth once daily as needed. - Diaper,Brief, Adult,Disposable Size Medium, 1-2 times a day - apixaban (ELIQUIS) 5 mg tab(s) Take 1 tablet by mouth two times a day. [facility] - levomefolate (DEPLIN) 7.5 mg capsule Take 2 capsules by mouth once daily. - PREDATOR CONTROL TRAPPER THYROID 60 mg tablet Take 1 tablet by mouth once daily. - blood sugar diagnostic (BLOOD GLUCOSE TEST) test strip Test blood sugar(s) 1 times daily. Dx: Type 2 DM - Uncontrolled E11.65 Insulin: No - dicyclomine (BENTYL) 20 mg tablet Take 1 tablet by mouth twice daily as needed. From [facility]. - traZODone (DESYREL) 150 mg tablet Take 2 tablets by mouth daily at bedtime. [facility] - nitroglycerin sublingual (NITROSTAT) 0.4 mg SL tablet Dissolve 1 tablet under the tongue every 5 minutes as needed. - Lancets lancets Test blood sugar(s) 100 times daily. Dx: Type 2 DM - Uncontrolled E11.65 Insulin: No - diphenhydrAMINE (BENADRYL) 25 mg capsu (more content not included)... Normal [facility] Gastroenterology Visit Repor ton 12-04-2024 Gastroenterology Visit Report Normal [facility] Orthopedic Visit Reporton Orthopedic Visit Report Normal [facility] Shoulder min 2 Viewson 12-02 Shoulder min 2 Views Normal [facility] CNPNon 11-18-2024 CNPN Telephone (INTMWS) EMBER MALDONADO ([id number]) 1950 F Date Time Provider Department 11/18/24 DAJUAN ERIC INTMWS During your visit today, we recorded the following information about you: Kenyatta Rolle RN 11/18/2024 1:37 PM Signed Radha from [facility] calls and states that patient had the first shingle shot December 2023. Radha asking if patient will have to start series over or can they just give patient the send immunization? Please review and advise, Can leave a detailed message on phone MELANY Baxter Victor H, MD 11/19/2024 1:13 PM Signed Give 2nd dose. Andressa Ceballos MA 11/19/2024 5:24 PM Signed Left detailed message on confidential vm at nurse station Andressa Ceballos MA Allergies As of Date: 11/18/2024 Noted Allergy Reaction SULFA (SULFONAMIDE ANTIBIOTICS) 04/21/2021 10 - Anaphylaxis COMPAZINE (PROCHLORPERAZINE) 09/23/2022 1 - Mental Status Change LYRICA (PREGABALIN) 12/26/2022 1 - Mental Status Change METFORMIN 09/22/2023 8 - GI Upset Comments: Severe stomach pain MOSQUITOS 05/25/2023 10 - Anaphylaxis TORADOL (KETOROLAC) 12/26/2022 14 - Other: See Comments Comments: Causes pain Date Reviewed: 11/06/2024 Reviewed by: Bernadette Lora LPN - Fully Assessed Reason for Visit: Patient Question [1097] Prescriptions as of 11/19/2024 - amiodarone (PACERONE) 200 mg tablet Take 200 mg by mouth once daily. - gabapentin (NEURONTIN) 300 mg capsule Take 2 capsules by mouth three times a day AND 3 capsules daily at bedtime. Do all this for 90 days. - montelukast (SINGULAIR) 10 mg tablet Take 1 tablet by mouth daily at bedtime. - linaCLOtide (LINZESS) 290 mcg capsule Take 1 capsule by mouth daily at 6 am. Take capsule on an empty stomach at least 30 minutes before a meal at the same time each day. Capsule should be swallowed whole. DO NOT chew or crush. - HYDROcodone-acetaminophen (NORCO) 5-325 mg per tablet Take 1 tablet by mouth three times a day. From Dr. Diana Carter. - buprenorphine (BUTRANS) 10 mcg/hour transdermal patch Apply 1 patch as directed one time a week. - esomeprazole (NEXIUM) 40 mg capsule Take 1 capsule by mouth once daily. - lidocaine (LIDODERM) 5 % Apply 1 patch as directed once daily. to affected area. Remove patch after 12 hours. - fluticasone furoate (ARNUITY ELLIPTA) 200 mcg/actuation inhaler Inhale 1 puff as instructed once daily. - GUAIFENESIN ORAL Take 10 mL by mouth every 4 hours as needed. - rosuvastatin (CRESTOR) 10 mg tablet Take 1 tablet by mouth daily at bedtime. - furosemide (LASIX) 40 mg tablet Take 1 tablet by mouth once daily as needed. - albuterol HFA (PROVENTIL HFA, VENTOLIN HFA) 90 mcg/actuation inhaler Inhale 2 Puffs as instructed every 6 hours as needed for wheezing/shortness of breath. - empagliflozin (JARDIANCE) 25 mg tablet Take 1 tablet by mouth daily with breakfast. - potassium chloride ER (KLOR-CON) 20 mEq tablet Take 1 tablet by mouth once daily as needed (with furosemide). - ondansetron (ZOFRAN) 4 mg tablet Take by mouth every 8 hours as needed for nausea/vomiting. - tiZANidine HCl (ZANAFLEX) 2 mg capsule Take 1 capsule by mouth daily at bedtime. For muscle spasms. - bisacodyl (DULCOLAX) 10 mg supp 1 Suppository by RECTAL route once daily as needed for constipation. If MOM ineffective. - aluminum-magnesium hydroxide (MAG-AL) 200-200 mg/5 mL suspension Take 30 mL by mouth every 4 hours as needed (GI distress). - simethicone, chewable (MYLICON) 80 mg chewable tablet Take 1 tablet by mouth four times a day as needed (gas, bloating). - tamsulosin (FLOMAX) 0.4 mg Take 1 capsule by mouth once daily. - GLIPIZIDE ORAL Take 2.5 mg by mouth once daily. - ipratropium-albuterol (DUONEB) 0.5 mg-3 mg(2.5 mg base)/3 mL nebu Inhale 3 mL as instructed every 6 hours as needed for wheezing/shortness of breath. - magnesium oxide 400 mg magnesium tab Take 1 tablet by mouth at bedtime as needed (for leg cramps). - magnesium hydroxide (MILK OF MAGNESIA) 400 mg/5 mL suspension Take 30 mL by mouth once daily as needed. - Diaper,Brief, Adult,Disposable Size Medium, 1-2 times a day - apixaban (ELIQUIS) 5 mg tab(s) Take 1 tablet by mouth two times a day. [facility] - levomefolate (DEPLIN) 7.5 mg capsule Take 2 capsules by mouth once daily. - PREDATOR CONTROL TRAPPER THYROID 60 mg tablet Take 1 tablet by mouth once daily. - blood sugar diagnostic (BLOOD GLUCOSE TEST) test strip Test blood sugar(s) 1 times daily. Dx: Type 2 DM - Uncontrolled E11.65 Insulin: No - dicyclomine (BENTYL) 20 mg tablet Take 1 tablet by mouth twice daily as needed. From [facility]. - traZODone (DESYREL) 150 mg tablet Take 2 tablets by mouth daily at bedtime. [facility]. - nitroglycerin sublingual (NITROSTAT) 0.4 mg SL tablet Dissolve 1 tablet under the tongue every 5 minutes as needed. - L (more content not included)... [facility] E[facility] MAL[facility] ([id number]) 1950 F Date Time Provider Department 11/12/24 DAJUAN ERIC INTMWS During your visit today, we recorded the following information about you: Mary Jo Gonzalez RN 11/12/2024 10:57 AM Signed Patient calls to request referral to neurology and CT Brain be faxed to [facility]. Faxed as requested to [facility] and referral to neurology to [facility]. Submitted Prior Auth for Brain CT Scan. Mary Jo Gonzalez RN Allergies As of Date: 11/12/2024 Noted Allergy Reaction SULFA (SULFONAMIDE ANTIBIOTICS) 04/21/2021 10 - Anaphylaxis COMPAZINE (PROCHLORPERAZINE) 09/23/2022 1 - Mental Status Change LYRICA (PREGABALIN) 12/26/2022 1 - Mental Status Change METFORMIN 09/22/2023 8 - GI Upset Comments: Severe stomach pain MOSQUITOS 05/25/2023 10 - Anaphylaxis TORADOL (KETOROLAC) 12/26/2022 14 - Other: See Comments Comments: Causes pain Date Reviewed: 11/06/2024 Reviewed by: Bernadette Lora LPN - Fully Assessed Reason for Visit: Orders [681] Prescriptions as of 11/12/2024 - amiodarone (PACERONE) 200 mg tablet Take 200 mg by mouth once daily. - gabapentin (NEURONTIN) 300 mg capsule Take 2 capsules by mouth three times a day AND 3 capsules daily at bedtime. Do all this for 90 days. - montelukast (SINGULAIR) 10 mg tablet Take 1 tablet by mouth daily at bedtime. - amoxicillin (AMOXIL) 875 mg tablet Take 1 tablet by mouth two times a day for 7 days. - linaCLOtide (LINZESS) 290 mcg capsule Take 1 capsule by mouth daily at 6 am. Take capsule on an empty stomach at least 30 minutes before a meal at the same time each day. Capsule should be swallowed whole. DO NOT chew or crush. - HYDROcodone-acetaminophen (NORCO) 5-325 mg per tablet Take 1 tablet by mouth three times a day. From Dr. Diana Carter. - buprenorphine (BUTRANS) 10 mcg/hour transdermal patch Apply 1 patch as directed one time a week. - esomeprazole (NEXIUM) 40 mg capsule Take 1 capsule by mouth once daily. - lidocaine (LIDODERM) 5 % Apply 1 patch as directed once daily. to affected area. Remove patch after 12 hours. - fluticasone furoate (ARNUITY ELLIPTA) 200 mcg/actuation inhaler Inhale 1 puff as instructed once daily. - GUAIFENESIN ORAL Take 10 mL by mouth every 4 hours as needed. - rosuvastatin (CRESTOR) 10 mg tablet Take 1 tablet by mouth daily at bedtime. - furosemide (LASIX) 40 mg tablet Take 1 tablet by mouth once daily as needed. - albuterol HFA (PROVENTIL HFA, VENTOLIN HFA) 90 mcg/actuation inhaler Inhale 2 Puffs as instructed every 6 hours as needed for wheezing/shortness of breath. - empagliflozin (JARDIANCE) 25 mg tablet Take 1 tablet by mouth daily with breakfast. - potassium chloride ER (KLOR-CON) 20 mEq tablet Take 1 tablet by mouth once daily as needed (with furosemide). - ondansetron (ZOFRAN) 4 mg tablet Take by mouth every 8 hours as needed for nausea/vomiting. - tiZANidine HCl (ZANAFLEX) 2 mg capsule Take 1 capsule by mouth daily at bedtime. For muscle spasms. - bisacodyl (DULCOLAX) 10 mg supp 1 Suppository by RECTAL route once daily as needed for constipation. If MOM ineffective. - aluminum-magnesium hydroxide (MAG-AL) 200-200 mg/5 mL suspension Take 30 mL by mouth every 4 hours as needed (GI distress). - simethicone, chewable (MYLICON) 80 mg chewable tablet Take 1 tablet by mouth four times a day as needed (gas, bloating). - tamsulosin (FLOMAX) 0.4 mg Take 1 capsule by mouth once daily. - GLIPIZIDE ORAL Take 2.5 mg by mouth once daily. - ipratropium-albuterol (DUONEB) 0.5 mg-3 mg(2.5 mg base)/3 mL nebu Inhale 3 mL as instructed every 6 hours as needed for wheezing/shortness of breath. - magnesium oxide 400 mg magnesium tab Take 1 tablet by mouth at bedtime as needed (for leg cramps). - magnesium hydroxide (MILK OF MAGNESIA) 400 mg/5 mL suspension Take 30 mL by mouth once daily as needed. - Diaper,Brief, Adult,Disposable Size Medium, 1-2 times a day - apixaban (ELIQUIS) 5 mg tab(s) Take 1 tablet by mouth two times a day. [facility] - levomefolate (DEPLIN) 7.5 mg capsule Take 2 capsules by mouth once daily. - PREDATOR CONTROL TRAPPER THYROID 60 mg tablet Take 1 tablet by mouth once daily. - blood sugar diagnostic (BLOOD GLUCOSE TEST) test strip Test blood sugar(s) 1 times daily. Dx: Type 2 DM - Uncontrolled E11.65 Insulin: No - dicyclomine (BENTYL) 20 mg tablet Take 1 tablet by mouth twice daily as needed. From [facility]. - traZODone (DESYREL) 150 mg tablet Take 2 tablets by mouth daily at bedtime. [facility] - nitroglycerin sublingual (NITROSTAT) 0.4 mg SL tablet Dissolve 1 tablet under the tongue every 5 minutes as needed. - Lancets lancets Test blood sugar(s) 100 times daily. Dx: Type 2 DM - Uncontrolled E11.65 Insulin: No - diphenhydrAMINE (BENADRYL) 25 mg capsule Take 25 mg by mouth every 4 hours as needed. - multiv (more content not included)... Normal [facility] CNOVon 11-06-2024 CNOV Office Visit (INTMWS ) EMBER MALDONADO ([id number]) 1950 F Date Time Provider Department 11/06/24 10:20 AM DAJUAN ERIC INTMWS During your visit today, we recorded the following information about you: Pulse Respiration Blood pressure Weight 68/minute 16/minute 106/58 68.8 kg Dajuan Eric MD 11/06/2024 12:57 PM Signed This note was created using [employer]. Subjective Patient presents with: Preop clearance Consultation requested by Dr. Parker for an opinion regarding preoperative examination and optimization. My final recommendations will be communicated back to the requesting physician by way of shared Medical record or facsimile with accompanying form. Recording using [employer] software for draft documentation of the visit was discussed with the patient/authorized manufacturers service representative; all questions welcomed and answered. Patient/authorized manufacturers service representative agreed to proceed Patient is scheduled for anterior cervical disc fusion C3-C4 and C4-C5 on November 27. Anesthesia: general anesthesia I. Cardiovascular risk factors: Hypertension? 2. Smoking? 3. High cholesterol? 4. Diabetes? 5. Obesity? 6. Family history of premature CAD? Yes II. Cardiovascular Disease or Symptoms? Yes CAD? No CHF? Yes PAD? No CVA? Yes If I and II NEGATIVE, okay to proceed with surgery. If POSITIVE, step III. III. If POSITIVE, does patient have any of the following? Acute coronary syndrome? Unstable arrhythmias? Decompensated CHF? Yes. Recent If III POSITIVE, refer for consultation(s) and multidisciplinary team discussion. If III NEGATIVE, step IV. IV. Does patient have any of the following risk modifiers? Severe valvular heart disease. Severe pulmonary hypertension . Elevated risk congenital heart disease. Prior coronary stents or CABG. Recent stroke. CIED (Pacemaker/ICD) Frailty. Yes If risk modifiers POSITIVE, refer for consultation(s), multidisciplinary team discussion. REFERRED TO NEUROLOGY. REFERRED TO CARDIOLOGY. Ember is a 74-year-old female presenting for a pre-operative evaluation, with additional concerns about a possible TIA and sinus infection. Ember reports experiencing symptoms she attributes to a possible TIA, including tremors, jaw tremors, and dysarthria, which began in early October. She did not seek medical attention at the time, hoping the symptoms would resolve on their own. She also reports nausea and jaw locking, as well as increased drooling. She notes a significant worsening of her speech and tremors, which are noticeable to others. She denies facial or eyelid ptosis, but reports a decline in vision. She also reports intermittent weakness, primarily on the right side, and occasional numbness in the right hand. She has a history of vertigo, which has worsened this month. She also reports increased sensitivity to cold temperatures. Ember also reports a sinus infection, with symptoms of a bubble sensation in her head, hearing loss, and nausea. She has been experiencing yellow mucus and occasional epistaxis since early October. She denies fever. Ember has a history of severe headaches, which have worsened this month. She previously had nerve ablation in the occipital region, which provided temporary relief. She also reports a recent tooth loss and soreness in the area. Ember was recently admitted in late August for atrial fibrillation with RVR. She saw cardiology for follow up on October 10, and metoprolol was discontinued, since she was back in sinus rhythm. There was no statement about cardiac clearance for surgery. Review of Systems Constitutional: (-) fever Head: (+) headaches Eyes: (+) visual disturbances Ears/Nose/Mouth/Throat: (+) hearing changes, (+) congestion, (+) bloody nasal discharge, (+) jaw locking Gastrointestinal: (+) nausea Neurological: (+) tremors, (+) speech disturbance, (+) right-sided weakness, (+) left-sided weakness, (+) right-sided numbness, (+) vertigo Endocrine: (+) cold intolerance Objective BP 106/58 Pulse 68 Resp 16 Wt 68.8 kg (151 lb 10.8 oz) BMI 27.74 kg/m? Physical Exam Constitutional: General: She is not in acute distress. Appearance: She is not ill-appearing. HENT: Head: Atraumatic. Right Ear: Tympanic membrane normal. Left Ear: Tympanic membrane normal. Nose: Congestion and rhinorrhea present. Rhinorrhea is bloody. Left Nostril: Epistaxis present. Right Turbinates: Swollen. Left Turbinates: Swollen. Right Sinus: Maxillary sinus tenderness present. Left Sinus: Maxillary sinus tenderness present. Mouth/Throat: Pharynx: Oropharynx is clear. Uvula midline. No oropharyngeal exudate or posterior oropharyngeal erythema. Eyes: General: No visual field deficit. Neck: Vascular: No carotid bruit. Cardiovascular: Rate and Rhythm: Normal rate and regular rhythm. Heart sounds: S1 norm (more content not included)... Normal [facility] Cardiology Visit Reporton Cardiology Visit Report Normal [facility] [id number] 10-08-2024 [facility] Misc. COMMENT Normal . [facility] Comment on above: Order Comment: [id number] Result Comment: Test Ordered: [id number] K73-Oxjwgp+XV3Tgbnxefsystg Screen, Urine Negative ng/mL UI Reference Range: Lhynqi=471Lsbnokfcbfa test includes Amphetamine and Methamphetamine.Barbiturates Negative ng/mL UI Reference Range: Cfnwcs=179Lcfrzkejywfinko Negative ng/mL UI Reference Range: Zcvrnw=319Oprjzkg (Metab.), Urine Negative ng/mL UI Reference Range: Pxawjf=351Idkvwft Note: ng/mL UI See Final Results Reference Range: Ymblxj=565Amxjtu test includes Codeine, Morphine, Hydromorphone, Hydrocodone.Opiates Positive [A ] UI Reference Range: Pyzwio=127Bjaypi test includes Codeine, Morphine, Hydromorphone, Hydrocodone.Codeine Negative UI Reference Range: Enpmoz=440Mgrtycag Negative UI Reference Range: Gfadgz=279Gxbefctjuecxk Negative UI Reference Range: Wuoavg=375Dypgoxfdnds Positive [A ] UI Reference Range: .Hydrocodone Conf, MS, UR 1079 ng/mL UI Reference Range: Uiuscm=9135-Xxuuuptzfsdhbr, Urine Negative ng/mL UI Reference Range: Cutoff=10Oxycodone/Oxymorphone, Urine Negative ng/mL UI Reference Range: Oegtgh=856Gzib includes Oxycodone and OxymorphonePCP, Urine Negative ng/mL UI Reference Range: Cutoff=25Methadone Screen, Urine Negative ng/mL UI Reference Range: Qhsywh=096Tgqmnccxbthb, Urine Negative ng/mL UI Reference Range: Ymjcvs=859Qdbghkok, Urine Negative ng/mL UI Reference Range: Cutoff=2.0Test includes Fentanyl and NorfentanylThis test was developed and its performance characteristicsdetermined by [facility]. It has not been cleared orapproved by the Food and Drug Administration.Tramadol Negative ng/mL UI Reference Range: Rsgnen=470Nkwmkvhwvwifg, Urine Negative ng/mL UI Reference Range: Cutoff=10Creatinine, Urine 46.7 mg/dL UI Reference Range: 20.0-300.0pH, Urine 5.3 UI Reference Range: 4.5-8.9Performed at: - [facility] [id number] [place], [place] [id number] Director: Rohit Urena PhD, Phone: [phone] at: [facility] [id number] Director: Michael Parra PhD, Phone: [phone] Performed By: #### L 505.5000, L3410.9992 ####[facility] [address] [place], [address] Amphetamine detection with 1 000 ng/mL as cutoffOrdered By: Marisel Carter on 10-03-2024 Amphetamines Screen method >1000 ng/mL Ql (U) Negative < 200 ng/mL [facility] Amphetamines Screen method > 1000 ng/mL Ql (U)Ordered By: Marisel Carter on 10-03-2024 Amphetamines Ql (U) Negative <1000 ng/mL [facility] Urine Barbiturates Screen Negative < 200 ng/mL [facility] Methadone, urineOrdered By: Marisel Carter on 10-03-2024 Urine Methadone Screen Negative < 300 ng/mL [facility] Miscellaneous procedureOrder ed By: Marisel Carter on 10-03-2024 Miscellaneous Test COMMENT . [facility] Comment on above: Test Ordered: [id number] D52-Ihzjqi+TE2Ldvblrozwpot Screen, Urine Negative ng/mL UI Reference Range: Pefqyy=561Nswvoprdqvl test includes Amphetamine and Methamphetamine.Barbiturates Negative ng/mL UI Reference Range: Juzcof=865Kmtqdggcljpclnu Negative ng/mL UI Reference Range: Gcosou=552Mvmsfcd (Metab.), Urine Negative ng/mL UI Reference Range: Wlyltl=006Nzbsymz Note: ng/mL UI See Final Results Reference Range: Eefgqi=146Acutzp test includes Codeine, Morphine, Hydromorphone, Hydrocodone.Opiates Positive [A ] UI Reference Range: Ueiucs=120Nfpnjq test includes Codeine, Morphine, Hydromorphone, Hydrocodone.Codeine Negative UI Reference Range: Wnbkpf=741Rystesbo Negative UI Reference Range: Hbcjme=160Odnzwceqflwxd Negative UI Reference Range: Uttmfk=069Mmnknnhmxuh Positive [A ] UI Reference Range: .Hydrocodone Conf, MS, UR 1079 ng/mL UI Reference Range: Keovxo=5611-Esuihdfcykafkf, Urine Negative ng/mL UI Reference Range: Cutoff=10Oxycodone/Oxymorphone, Urine Negative ng/mL UI Reference Range: Tclqkj=268Gozx includes Oxycodone and OxymorphonePCP, Urine Negative ng/mL UI Reference Range: Cutoff=25Methadone Screen, Urine Negative ng/mL UI Reference Range: Itlfgm=143Dgxytdqdbwlv, Urine Negative ng/mL UI Reference Range: Vkqcix=721Ynumojag, Urine Negative ng/mL UI Reference Range: Cutoff=2.0Test includes Fentanyl and NorfentanylThis test was developed and its performance characteristicsdetermined by [facility]. It has not been cleared orapproved by the Food and Drug Administration.Tramadol Negative ng/mL UI Reference Range: Vzkbmo=949Gjtonbxawezom, Urine Negative ng/mL UI Reference Range: Cutoff=10Creatinine, Urine 46.7 mg/dL UI Reference Range: 20.0-300.0pH, Urine 5.3 UI Reference Range: 4.5-8.9Performed at: UI - [facility] [id number] [place], [place] [id number] Director: Rohit Urena PhD, Phone: [phone] at: - [facility] [id number] Director: Michael Parra PhD, Phone: [phone] No Panel InformationOrdered By: Marisel Carter on 10-03-2024 Urine Buprenorphine Qualitative Negative < 200 ng/mL [facility] Urine Oxycodone Screen Negative < 100 ng/mL [facility] Quantitative urine opiates m easurementOrdered By: Marisel Carter on 10-03-2024 Opiates Ql (U) Positive < 300 ng/mL [facility] Comment on above: If confirmation test ing is needed, a separate order will be required to send out testing to the reference laboratory. Screening urine fentanyl ismael surementOrdered By: Marisel Carter on 10-03-2024 fentaNYL Screen Ql (U) Negative [facility] Urine Drug Screen (VISTA)on 10-03-2024 AMPHETAMINES Negative Normal <1000 ng/mL [facility] Comment on above: Order Comment: MEDTO X Performed By: #### L 505.5000, L3410.9992 ####[facility] [address] [facility] [id number] BARBITIURATES Negative Normal < 200 ng/mL [facility] Comment on above: Order Comment: MEDTO X Performed By: #### L 505.5000, L3410.9992 ####[facility] [address] [facility] [id number] BENZODIAZIPINE Negative Normal < 200 ng/mL [facility] Comment on above: Order Comment: MEDTO X Performed By: #### L 505.5000, L3410.9992 ####[facility] [address] [place], [address] BUP Ur Drug Scr Negative Normal < 200 ng/mL [facility] Comment on above: Order Comment: MEDTO X Performed By: #### L 505.5000, L3410.9992 ####[facility] [address] [place], [address] COCAINE Negative Normal < 300 ng/mL [facility] Comment on above: Order Comment: MEDTO X Performed By: #### L 505.5000, L3410.9992 ####[facility] [address] [place], [address] Fentanyl Negative Normal [facility] Comment on above: Order Comment: MEDTO X Performed By: #### L 505.5000, L3410.9992 ####[facility] [address] [place], [address] METHADONE Negative Normal < 300 ng/mL [facility] Comment on above: Order Comment: MEDTO X Performed By: #### L 505.5000, L3410.9992 ####[facility] [address] [place], [address] OPIATES Positive Normal < 300 ng/mL [facility] Comment on above: Order Comment: MEDTO X Result Comment: If c onfirmation testing is needed, a separate order will berequired to send out testing to the reference laboratory. Performed By: #### L 505.5000, L3410.9992 ####[facility] [address] [place], [address] OXYCODONE Negative Normal < 100 ng/mL [facility] Comment on above: Order Comment: MEDTO X Performed By: #### L 505.5000, L3410.9992 ####[facility] [address] [place], [address] PCP Negative Normal < 25 ng/mL [facility] Comment on above: Order Comment: MEDTO X Performed By: #### L 505.5000, L3410.9992 ####[facility] [address] [place], [address] THC Negative Normal < 50 ng/mL [facility] Comment on above: Order Comment: MEDTO X Performed By: #### L 505.5000, L3410.9992 ####[facility] [address] [place], [address] Urine benzodiazepine levelOr dered By: Ayman Basali on 10-03-2024 Benzodiazepines Ql (U) Negative < 200 ng/mL [facility] Urine cocaine levelOrdered B y: Ayman Basali on 10-03-2024 Cocaine Ql (U) Negative < 300 ng/mL [facility] Urine fnkvo-3-pfwebqohptivib abinol (THC) measurementOrdered By: Marisel Basali on 10-03-2024 Cannabinoids Screen Ql (U) Negative < 50 ng/mL [facility] Urine phencyclidine (PCP) de tectionOrdered By: Marisel Basali on 10-03-2024 Phencyclidine Ql (U) Negative < 25 ng/mL [facility] fentaNYL Screen Ql (U)Ordere d By: Ayman Basali on 10-03-2024 Urine Fentanyl Screen Negative [facility] Cardiology Visit Reporton Cardiology Visit Report Normal [facility] Pulmonary Visit Reporton Pulmonary Visit Report Normal [facility] Urine Cultureon 09-19-2024 [facility] Culture exhibits no growth. Normal [facility] Comment on above: Performed By: #### M 100.2200, L400.0001 ####[facility] [address] [place], [address] Urinalysis, Completeon 09-18 WBC 0-5 SEEN Normal 0-5 [facility] Comment on above: Order Comment: CLEAN CATCH Performed By: #### M 100.2200, L400.0001 ####[facility] [address] [place], [address] BACTERIA 0 SEEN Normal None Seen [facility] Comment on above: Order Comment: CLEAN CATCH Performed By: #### M 100.2200, L400.0001 ####[facility] [address] [place], [address] EPI,SQUAMOUS 0 SEEN Normal 5-10 [facility] Comment on above: Order Comment: CLEAN CATCH Performed By: #### M 100.2200, L400.0001 ####[facility] [address] [place], [address] Mucus Ql (Urine sed) 0 SEEN Normal [facility] Comment on above: Order Comment: CLEAN CATCH Performed By: #### M 100.2200, L400.0001 ####[facility] [address] [place], [address] RBC 0 SEEN Normal 0-5 [facility] Comment on above: Order Comment: CLEAN CATCH Performed By: #### M 100.2200, L400.0001 ####[facility] [address] [place], [address] Bilirubin Test strip Ql (U)O rdered By: Dajuan Eric on 09-17-2024 Bilirubin Ql (U) Negative Negative [facility] Epithelial cells.squamous LM Ql (Urine sed)Ordered By: Dajuan Eric on 09-17-2024 Epithelial cells.squamous LM.HPF (Urine sed) [#/Area] 0 /[HPF] 5-10 [facility] Glucose Ql (U)Ordered By: Michelle Eric on 09-17-2024 Glucose (U) [Mass/Vol] 1000 mg/dL High Normal [facility] Ketones Test strip Ql (U)Ord ered By: Dajuan Eric on 09-17-2024 Ketones Ql (U) Negative Negative [facility] Microscopic analysis of urin e for red blood cells (RBC)Ordered By: Dajuan Eric on 09-17-2024 Microscopic analysis of urine for red blood cells (RBC) 0 SEEN /hpf 0-5 [facility] Urine RBC 0 SEEN /hpf 0-5 [facility] Mucus LM Ql (Urine sed)Order ed By: Dajuan Eric on 09-17-2024 Mucus Ql (Urine sed) 0 SEEN /hpf [facility] Nitrite Test strip Ql (U)Ord ered By: Dajuan Eric on 09-17-2024 Nitrite Ql (U) Negative Negative [facility] Protein Test strip Ql (U)Ord ered By: Dajuan Eric on 09-17-2024 Protein Ql (U) 15 mg/dl High Negative [facility] Squamous epithelial cells de tection in urine sediment by light microscopyOrdered By: Dajuan Eric on 09-17-2024 Epithelial cells.squamous LM Ql (Urine sed) 0 SEEN /hpf 5-10 [facility] Urine blood detectionOrdered By: Dajuan Eric on 09-17-2024 Urine Occult Blood Negative Negative [facility] Urine clarityOrdered By: Cesar Eric on 09-17-2024 Clarity (U) Clear Clear [facility] Urine color determinationOrd ered By: Dajuan Eric on 09-17-2024 Color (U) Yellow Yellow [facility] Urine cultureOrdered By: Cesar Eric on 09-17-2024 Bacteria identified Cx Nom (U) Culture exhibits no growth. [facility] Urine glucose detectionOrder ed By: Daujan Eric on 09-17-2024 Glucose Ql (U) 1000 mg/dl High Normal [facility] Urine leukocyte esterase det ection by dipstickOrdered By: Dajuan Eric on 09-17-2024 Leukocyte esterase Test strip Ql (U) 25 /ul High Negative [facility] Urine pHOrdered By: Dajuan jasmine on 09-17-2024 pH (U) 6.0 [pH] 5.0 - 8.0 [facility] Urine sediment bacteria coun t by microscopy (number/high power field)Ordered By: Dajuan Eric on 09-17-2024 Bacteria LM.HPF (Urine sed) [#/Area] 0 /[HPF] None Seen [facility] Urine specific gravity measu rementOrdered By: Dajuan Eric on 09-17-2024 Specific gravity (U) [Rel density] 1.010 1.002-1.030 [facility] Urine urobilinogen measureme ntOrdered By: Dajuan Eric on 09-17-2024 Urobilinogen Ql (U) Normal mg/dl Normal [facility] Urobilinogen Ql (U)Ordered B y: Dajuan Eric on 09-17-2024 Urine Urobilinogen Normal mg/dl Normal [facility] White blood cell countOrdere d By: Dajuan Eric on 09-17-2024 Urine WBC 0-5 SEEN /hpf 0-5 [facility] White blood cell count 0-5 SEEN /hpf 0-5 [facility] CNPNon 09-16-2024 CNPN Telephone (FAMPWS) EMBER MALDONADO ([id number]) 1950 F Date Time Provider Department 09/16/24 DAJUAN ERIC [facility] During your visit today, we recorded the following information about you: Sylvia Harley LPN 09/16/2024 11:16 AM Signed Radha with [facility] calls to report that pt has been complaining over the weekend of burning and itching with urination. Radha reports she did a multi-stick on pt and urine was positive for leuks and neg for blood and nitrates. Radha report on 09/02 urine was neg for leuks and positive for blood. Radha is asking what dr would like them to do. Call Radha with 's message. Ok to leave detailed message on nurse's vm. ROHIT Doherty Victor H, MD 09/16/2024 1:05 PM Signed Send urine for culture and sensitivity. Bernadette Lora LPN 09/16/2024 3:39 PM Signed Below recommendation left on identified nurse vm. Will wait for the results. Bernadette Lora LPN Allergies As of Date: 09/16/2024 Noted Allergy Reaction SULFA (SULFONAMIDE ANTIBIOTICS) 04/21/2021 10 - Anaphylaxis COMPAZINE (PROCHLORPERAZINE) 09/23/2022 1 - Mental Status Change LYRICA (PREGABALIN) 12/26/2022 1 - Mental Status Change METFORMIN 09/22/2023 8 - GI Upset Comments: Severe stomach pain MOSQUITOS 05/25/2023 10 - Anaphylaxis TORADOL (KETOROLAC) 12/26/2022 14 - Other: See Comments Comments: Causes pain Date Reviewed: 09/13/2024 Reviewed by: Fransisca Jordan LPN - Fully Assessed Reason for Visit: Dysuria [1085] Prescriptions as of 09/17/2024 - linaCLOtide (LINZESS) 290 mcg capsule Take 1 capsule by mouth daily at 6 am. Take capsule on an empty stomach at least 30 minutes before a meal at the same time each day. Capsule should be swallowed whole. DO NOT chew or crush. - HYDROcodone-acetaminophen (NORCO) 5-325 mg per tablet Take 1 tablet by mouth three times a day. From Dr. Diana Carter. - buprenorphine (BUTRANS) 10 mcg/hour transdermal patch Apply 1 patch as directed one time a week. - esomeprazole (NEXIUM) 40 mg capsule Take 1 capsule by mouth once daily. - lidocaine (LIDODERM) 5 % Apply 1 patch as directed once daily. to affected area. Remove patch after 12 hours. - fluticasone furoate (ARNUITY ELLIPTA) 200 mcg/actuation inhaler Inhale 1 puff as instructed once daily. - GUAIFENESIN ORAL Take 10 mL by mouth every 4 hours as needed. - rosuvastatin (CRESTOR) 10 mg tablet Take 1 tablet by mouth daily at bedtime. - furosemide (LASIX) 40 mg tablet Take 1 tablet by mouth once daily as needed. - albuterol HFA (PROVENTIL HFA, VENTOLIN HFA) 90 mcg/actuation inhaler Inhale 2 Puffs as instructed every 6 hours as needed for wheezing/shortness of breath. - empagliflozin (JARDIANCE) 25 mg tablet Take 1 tablet by mouth daily with breakfast. - potassium chloride ER (KLOR-CON) 20 mEq tablet Take 1 tablet by mouth once daily as needed (with furosemide). - ondansetron (ZOFRAN) 4 mg tablet Take by mouth every 8 hours as needed for nausea/vomiting. - tiZANidine HCl (ZANAFLEX) 2 mg capsule Take 1 capsule by mouth daily at bedtime. For muscle spasms. - bisacodyl (DULCOLAX) 10 mg supp 1 Suppository by RECTAL route once daily as needed for constipation. If MOM ineffective. - aluminum-magnesium hydroxide (MAG-AL) 200-200 mg/5 mL suspension Take 30 mL by mouth every 4 hours as needed (GI distress). - simethicone, chewable (MYLICON) 80 mg chewable tablet Take 1 tablet by mouth four times a day as needed (gas, bloating). - gabapentin (NEURONTIN) 300 mg capsule Take 2 capsules by mouth three times a day AND 3 capsules daily at bedtime. Do all this for 90 days. Patient should start on May 02, 2024. - tamsulosin (FLOMAX) 0.4 mg Take 1 capsule by mouth once daily. - GLIPIZIDE ORAL Take 2.5 mg by mouth once daily. - ipratropium-albuterol (DUONEB) 0.5 mg-3 mg(2.5 mg base)/3 mL nebu Inhale 3 mL as instructed every 6 hours as needed for wheezing/shortness of breath. - acetaminophen (TYLENOL) 325 mg tablet 650 mg every 4 hours. As needed for elevated temperature DO NOT EXCEED 4GM in 24 HOURS - magnesium oxide 400 mg magnesium tab Take 1 tablet by mouth at bedtime as needed (for leg cramps). - magnesium hydroxide (MILK OF MAGNESIA) 400 mg/5 mL suspension Take 30 mL by mouth once daily as needed. - Diaper,Brief, Adult,Disposable Size Medium, 1-2 times a day - apixaban (ELIQUIS) 5 mg tab(s) Take 1 tablet by mouth two times a day. [facility] - levomefolate (DEPLIN) 7.5 mg capsule Take 2 capsules by mouth once daily. - PREDATOR CONTROL TRAPPER THYROID 60 mg tablet Take 1 tablet by mouth once daily. - metoprolol tartrate, short acting, (LOPRESSOR) 25 mg tablet Take 0.5 tablets by mouth two times a day. - montelukast (SINGULAIR) 10 mg tablet Take 1 tablet by mouth daily at bedtime. - blood sugar diagnostic (BLOOD GLUCOSE TEST) test strip Test blood sugar(s) 1 ti (more content not included)... Normal [facility] CNOVon 09-13-2024 CNOV Office Visit (INTMWS ) EMBER MALDONADO ([id number]) 1950 F Date Time Provider Department 09/13/24 11:00 AM DAJUAN ERIC INTMWS During your visit today, we recorded the following information about you: Temperature Pulse Respiration Blood pressure 98 degrees 57/minute 12/minute 100/52 Weight Height 66.6 kg 1.575 m Dajuan Eric MD 09/13/2024 1:41 PM Signed This note was created using Presstler[employer]. Subjective Patient presents with: Hospital F/U: Chris Maldonado is a 74 year old female. She was admitted 09/05 to 09/06/24 for atrial fibrillation with RVR. She was given IV diltiazem with no improvement and with hypotension, and converted to NSR with IV digoxin. She was seen by Dr. Fofana (cardiology), and no medication changes were made. She was much better. Occasional palpitations was still noted. Outside specialists seen: Cardiology- Dr. Powers [facility]- Dr. Scotty Jackson. Pulmonary/Sleep Medicine- Dr. Rafi Arshad GI- Dr. Charles Blas Pain management- Dr. Marisel Carter Spine surgery- Dr. Saji Parker DME: [employer]. Review of Systems Constitutional: Negative for fatigue, fever and unexpected weight change. Respiratory: Negative for cough, shortness of breath and wheezing. Cardiovascular: Positive for palpitations and leg swelling. Negative for chest pain. Gastrointestinal: Negative for abdominal pain, diarrhea, nausea and vomiting. Neurological: Negative for dizziness and headaches. ACTIVE PROBLEM LIST Type 2 Diabetes Mellitus With Diabetic Neuropathy, Without Long-Term Current Use of Insulin (Hcc) Lumbar Radiculopathy Cervical Radiculopathy Dizziness, Nonspecific Falls Frequently Hypothyroidism Paf (Paroxysmal Atrial Fibrillation) (Hcc) Mixed Hyperlipidemia Chronic Diastolic Chf (Congestive Heart Failure) ([facility]) Mild Intermittent Asthma Without Complication ([facility]) Anxiety and Depression Alternating Constipation and Diarrhea Cognitive Decline Mixed Incontinence Osteopenia Social History Tobacco Use Smoking status: Former Current packs/day: 0.00 Average packs/day: 2.0 packs/day for 12.0 years (24.1 ttl pk-yrs) Types: Cigarettes Start date: 1977 Quit date: 12/10/1988 Years since quittin.7 Smokeless tobacco: Never Tobacco comments: from age 27 Substance Use Topics Alcohol use: Not Currently Comment: none since 1995 Drug use: Not Currently Types: Marijuana Comment: none since 1969 Current Outpatient Medications Medication Sig GUAIFENESIN ORAL Take 10 mL by mouth every 4 hours as needed. rosuvastatin (CRESTOR) 10 mg tablet Take 1 tablet by mouth daily at bedtime. furosemide (LASIX) 40 mg tablet Take 1 tablet by mouth once daily as needed. albuterol HFA (PROVENTIL HFA, VENTOLIN HFA) 90 mcg/actuation inhaler Inhale 2 Puffs as instructed every 6 hours as needed for wheezing/shortness of breath. empagliflozin (JARDIANCE) 25 mg tablet Take 1 tablet by mouth daily with breakfast. potassium chloride ER (KLOR-CON) 20 mEq tablet Take 1 tablet by mouth once daily as needed (with furosemide). ondansetron (ZOFRAN) 4 mg tablet Take by mouth every 8 hours as needed for nausea/vomiting. tiZANidine HCl (ZANAFLEX) 2 mg capsule Take 1 capsule by mouth daily at bedtime. For muscle spasms. bisacodyl (DULCOLAX) 10 mg supp 1 Suppository by RECTAL route once daily as needed for constipation. If MOM ineffective. simethicone, chewable (MYLICON) 80 mg chewable tablet Take 1 tablet by mouth four times a day as needed (gas, bloating). gabapentin (NEURONTIN) 300 mg capsule Take 2 capsules by mouth three times a day AND 3 capsules daily at bedtime. Do all this for 90 days. Patient should start on May 02, 2024. tamsulosin (FLOMAX) 0.4 mg Take 1 capsule by mouth once daily. GLIPIZIDE ORAL Take 2.5 mg by mouth once daily. ipratropium-albuterol (DUONEB) 0.5 mg-3 mg(2.5 mg base)/3 mL nebu Inhale 3 mL as instructed every 6 hours as needed for wheezing/shortness of breath. acetaminophen (TYLENOL) 325 mg tablet 650 mg every 4 hours. As needed for elevated temperature DO NOT EXCEED 4GM in 24 HOURS magnesium oxide 400 mg magnesium tab Take 1 tablet by mouth at bedtime as needed (for leg cramps). magnesium hydroxide (MILK OF MAGNESIA) 400 mg/5 mL suspension Take 30 mL by mouth once daily as needed. Diaper,Brief, Adult,Disposable Size Medium, 1-2 times a day apixaban (ELIQUIS) 5 mg tab(s) Take 1 tablet by mouth two times a day. [facility] levomefolate (DEPLIN) 7.5 mg capsule Take 2 capsules by mouth once daily. PREDATOR CONTROL TRAPPER THYROID 60 mg tablet Take 1 tablet by mouth once daily. metoprolol tartrate, short acting, (LOPRESSOR) 25 mg tablet Take 0.5 tablets by mouth two times a day. montelukast (SINGULAIR) 10 mg tablet Take 1 tablet by mouth daily at bedtime. blood sugar diagnostic (BLOOD GLUCOSE TEST) test strip Test bloo (more content not included)... Normal [facility] Urine Cultureon 09-07-2024 URC Normal [facility] Comment on above: Performed By: #### M 100.2200, L400.2010 ####[facility] [address] [place], [address] Absolute lymphocyte countOrd ered By: Jairo Hackett on 09-06-2024 Lymphocytes Auto (Unsp spec) [#/Vol] 1.60 10*3/uL 0.83-4.51 [facility] Absolute neutrophil countOrd ered By: Jairo Hackett on 09-06-2024 Neutrophils (Bld) [#/Vol] 6.0 10*3/uL 2.0-7.7 [facility] Anion gap in Serum or Plasma Ordered By: Jairo Hackett on 09-06-2024 Anion gap [Moles/Vol] 11 mmol/L 5-15 [facility] Automated lymphocyte count a s percentage of total leukocytesOrdered By: Jairo Hackett on 09-06-2024 Lymphocytes/100 WBC Auto (Unsp spec) 18.6 % Low 19-41 [facility] BUN/creatinine ratioOrdered By: Jairo Ochoaenzo on 09-06-2024 Urea nitrogen/Creatinine [Mass ratio] 24.7 mg/mg High 10-20 [facility] Basophil percentageOrdered B y: Jairo Hackett on 09-06-2024 Basophils/100 WBC (Bld) 0.6 % 0-1 [facility] Bedside Glucoseon 09-06-2024 FINGERSTICK GLU 139 mg/dL High 74-106 [facility] Comment on above: Result Comment: SHORTY GEMENT OF PATIENT CARE PER NURSING PROTOCOL Performed By: #### L 501.080 ####[facility] [address] [facility] [address] FINGERSTICK GLU 232 mg/dL High [facility]106 [facility] Comment on above: Result Comment: SHORTY GEMENT OF PATIENT CARE PER NURSING PROTOCOL Performed By: #### L 501.080 ####[facility] [address] [facility] [address] FINGERSTICK GLU 122 mg/dL High [facility]106 [facility] Comment on above: Result Comment: SHORTY GEMENT OF PATIENT CARE PER NURSING PROTOCOL Performed By: #### L 501.080 ####[facility] [address] [place], [address] FINGERSTICK GLU 132 mg/dL High [facility]106 [facility] Comment on above: Result Comment: SHORTY GEMENT OF PATIENT CARE PER NURSING PROTOCOL Performed By: #### L 501.080 ####[facility] [address] [facility] [address] Bilirubin, totalOrdered By: Jairo Hackett on 09-06-2024 Bilirubin [Mass/Vol] mg/dL 0.00-1.30 [facility] CBC W/Diff, Automatedon 08-11 Absolute Lymph 1.60 X10 3/uL Normal 0.83-4.51 [facility] Comment on above: Performed By: #### L 100.0100, L501.2300, L500.4100, L500.4050 ####[facility] [address] [place], [address] Absolute Neut 6.0 X10 3/uL Normal 2.0-7.7 [facility] Comment on above: Performed By: #### L 100.0100, L501.2300, L500.4100, L500.4050 ####[facility] [address] [place], [address] Basophils/100 WBC (Bld) 0.6 % Normal 0-1 [facility] Comment on above: Performed By: #### L 100.0100, L501.2300, L500.4100, L500.4050 ####[facility] [address] [place], [address] Eosinophils/100 WBC (Bld) 0.8 % Normal 0-5 [facility] Comment on above: Performed By: #### L 100.0100, L501.2300, L500.4100, L500.4050 ####[facility] [address] [place], [address] Erythrocyte distribution width (RBC) [Ratio] 12.1 % Normal 11.6-14.6 [facility] Comment on above: Performed By: #### L 100.0100, L501.2300, L500.4100, L500.4050 ####[facility] [address] [place], [address] Hematocrit (Bld) [Volume fraction] 38.1 % Normal 37-47 [facility] Comment on above: Performed By: #### L 100.0100, L501.2300, L500.4100, L500.4050 ####[facility] [address] [place], [address] Hemoglobin (Bld) [Mass/Vol] 12.3 g/dL Normal 12.0-15.0 [facility] Comment on above: Performed By: #### L 100.0100, L501.2300, L500.4100, L500.4050 ####[facility] [address] [place], [address] IG% 0.200 Normal 0.0-0.9 [facility] Comment on above: Result Comment: IG% - Immature Granulocytes (promyelocytes, myelocytes andmetamyelocytes) > 1% indicates that a LEFT SHIFT is Present. Performed By: #### L 100.0100, L501.2300, L500.4100, L500.4050 ####[facility] [address] [place], [address] Lymphocytes/100 WBC (Bld) 18.6 % Low 19-41 [facility] Comment on above: Performed By: #### L 100.0100, L501.2300, L500.4100, L500.4050 ####[facility] [address] [place], [address] MCH (RBC) [Entitic mass] 29.4 pg Normal 27.0-32.0 [facility] Comment on above: Performed By: #### L 100.0100, L501.2300, L500.4100, L500.4050 ####[facility] [address] [place], [address] MCHC (RBC) [Mass/Vol] 32.3 g/dL Normal 32-36 [facility] Comment on above: Performed By: #### L 100.0100, L501.2300, L500.4100, L500.4050 ####[facility] [address] [place], [address] MCV (RBC) [Entitic vol] 91.1 fL Normal 81-99 [facility] Comment on above: Performed By: #### L 100.0100, L501.2300, L500.4100, L500.4050 ####[facility] [address] [place], [address] Monocytes/100 WBC (Bld) 9.7 % Normal 0-10 [facility] Comment on above: Performed By: #### L 100.0100, L501.2300, L500.4100, L500.4050 ####[facility] [address] [place], [address] Neutrophils/100 WBC (Bld) 70.1 % High 47-70 [facility] Comment on above: Performed By: #### L 100.0100, L501.2300, L500.4100, L500.4050 ####[facility] [address] [place], [address] Nucleated RBC (Bld) [#/Vol] 0 10*3/uL Normal 0-5 [facility] Comment on above: Performed By: #### L 100.0100, L501.2300, L500.4100, L500.4050 ####[facility] [address] [place], [address] Platelet mean volume (Bld) [Entitic vol] 9.1 fL Normal 6.2-12.0 [facility] Comment on above: Performed By: #### L 100.0100, L501.2300, L500.4100, L500.4050 ####[facility] [address] [place], [address] Platelets (Bld) [#/Vol] 206 10*3/uL Normal 150-450 [facility] Comment on above: Performed By: #### L 100.0100, L501.2300, L500.4100, L500.4050 ####[facility] [address] [place], [address] RBC (Bld) [#/Vol] 4.18 10*6/uL Low 4.2-5.4 [facility] Comment on above: Performed By: #### L 100.0100, L501.2300, L500.4100, L500.4050 ####[facility] [address] [place], [address] RDW SD 40.6 fl Normal 35.1-43.9 [facility] Comment on above: Performed By: #### L 100.0100, L501.2300, L500.4100, L500.4050 ####[facility] [address] [place], [address] WBC (Bld) [#/Vol] 8.6 10*3/uL Normal 4.4-11.0 [facility] Comment on above: Performed By: #### L 100.0100, L501.2300, L500.4100, L500.4050 ####[facility] [address] [place], [address] Calculated very low density lipoprotein (VLDL) cholesterol measurementOrdered By: Jairo Hackett on 09-06-2024 Calculated very low density lipoprotein (VLDL) cholesterol measurement 13 mg/dL [facility] VLDL Cholesterol 13 mg/dL [facility] Carbon dioxide, total [Moles /volume] in Central venous bloodOrdered By: Jairo Hackett on 09-06-2024 CO2 [Moles/Vol] 22.2 mmol/L 21.0-32.0 [facility] Chloride assayOrdered By: Kole Hackett on 09-06-2024 Chloride [Moles/Vol] 107 mmol/L 98-108 [facility] Comprehensive Metabolic Prof ilon 09-06-2024 Albumin [Mass/Vol] 3.1 g/dL Low 3.4-4.8 [facility] Comment on above: Performed By: #### L 100.0100, L501.2300, L500.4100, L500.4050 ####[facility] [address] [place], [address] Albumin/Globulin [Mass ratio] 2.0 {ratio} Normal 0.9-2.4 [facility] Comment on above: Performed By: #### L 100.0100, L501.2300, L500.4100, L500.4050 ####[facility] [address] [place], [address] ALK PHOS 77 U/L Normal 35-104 [facility] Comment on above: Performed By: #### L 100.0100, L501.2300, L500.4100, L500.4050 ####[facility] [address] [place], [address] ALT [Catalytic activity/Vol] 19 U/L Normal <=34 [facility] Comment on above: Performed By: #### L 100.0100, L501.2300, L500.4100, L500.4050 ####[facility] [address] [place], [address] AST [Catalytic activity/Vol] 17 U/L Normal <=31 [facility] Comment on above: Performed By: #### L 100.0100, L501.2300, L500.4100, L500.4050 ####[facility] [address] [place], [address] BUN/CRE 24.7 RATIO High 10-20 [facility] Comment on above: Performed By: #### L 100.0100, L501.2300, L500.4100, L500.4050 ####[facility] [address] [place], [address] Calcium [Mass/Vol] 8.1 mg/dL Normal 7.6-11.0 [facility] Comment on above: Performed By: #### L 100.0100, L501.2300, L500.4100, L500.4050 ####[facility] [address] [place], [address] Chloride [Moles/Vol] 107 mmol/L Normal 98-108 [facility] Comment on above: Performed By: #### L 100.0100, L501.2300, L500.4100, L500.4050 ####[facility] [address] [place], [address] CO2 [Moles/Vol] 22.2 mmol/L Normal 21.0-32.0 [facility] Comment on above: Performed By: #### L 100.0100, L501.2300, L500.4100, L500.4050 ####[facility] [address] [place], [address] Creatinine [Mass/Vol] 0.77 mg/dL Normal 0.70-1.20 [facility] Comment on above: Performed By: #### L 100.0100, L501.2300, L500.4100, L500.4050 ####[facility] [address] [place], [address] ECRCL 56.82 ml/min Normal 50-250 [facility] Comment on above: Performed By: #### L 100.0100, L501.2300, L500.4100, L500.4050 ####[facility] [address] [place], [address] GAP 11 Normal 5-15 [facility] Comment on above: Performed By: #### L 100.0100, L501.2300, L500.4100, L500.4050 ####[facility] [address] [place], [address] GFR/1.73 sq M.predicted among non-blacks MDRD (S/P/Bld) [Vol rate/Area] 82 mL/min/{1.73_m2} Normal >60 [facility] Comment on above: Result Comment: mL/m in/1.73m2 CKD-EPI Creatinine Equation (2020) Performed By: #### L 100.0100, L501.2300, L500.4100, L500.4050 ####[facility] [address] [place], [address] Globulin (S) [Mass/Vol] 1.6 g/dL Low 2.2-4.2 [facility] Comment on above: Performed By: #### L 100.0100, L501.2300, L500.4100, L500.4050 ####[facility] [address] [place], [address] Glucose [Mass/Vol] 146 mg/dL High 70-99 [facility] Comment on above: Performed By: #### L 100.0100, L501.2300, L500.4100, L500.4050 ####[facility] [address] [place], [address] Potassium [Moles/Vol] 4.2 mmol/L Normal 3.3-5.1 [facility] Comment on above: Performed By: #### L 100.0100, L501.2300, L500.4100, L500.4050 ####[facility] [address] [place], [address] Sodium [Moles/Vol] 141 mmol/L Normal 133-145 [facility] Comment on above: Performed By: #### L 100.0100, L501.2300, L500.4100, L500.4050 ####[facility] [address] [place], [address] T BILI < 0.15 Normal 0.00-1.30 [facility] Comment on above: Performed By: #### L 100.0100, L501.2300, L500.4100, L500.4050 ####[facility] [address] [place], [address] T PROT 4.7 g/dL Low 5.9-8.4 [facility] Comment on above: Performed By: #### L 100.0100, L501.2300, L500.4100, L500.4050 ####[facility] [address] [place], [address] Urea nitrogen [Mass/Vol] 19 mg/dL Normal 4-19 [facility] Comment on above: Performed By: #### L 100.0100, L501.2300, L500.4100, L500.4050 ####[facility] [address] [place], [address] Consultation - Cardiologyon 09-06-2024 Consultation - Cardiology Normal [facility] Electrocardiogram reportOrde red By: Gio Villalba on 09-06-2024 EKG study [facility] Cardiovascular Services [address] [place] [address] 12 Lead EKG 09/05/243 MR#: [id number] Acct: [id number] Name: EMBER MALDONADO Rep #:[id number] : 1950 74 From: Gio Villalba MD Attending Dr: DO Meidna Villagomez tatus: ADM JESSICA Ordering Dr: Nicolás Penn MD Date: Location: U Sex: F C Admitted: 09/05/24 Test Reason : PALPITATIONS Blood Pressure : */* mmHG Vent. Rate : 133 BPM Atrial Rate : * BPM P-R Int : * ms QRS Dur : 86 ms QT Int : 274 ms P-R-T Axes : * -7 9 degrees QTcB Int : 407 ms Atrial fibrillation with rapid ventricular response Inferior infarct , age undetermined Anterior infarct , age undetermined Abnormal ECG Confirmed by GIO VILLALBA MD ([id number]), fashion editor SAW TROY ([id number]) on 09/06/2024 8:22:06 AM Referred By: NIKKI TRAVIS Confirmed By: GIO VILLALBA MD 09/06/24 0822 Date _ Gio Villalba MD CC: Dr. Nicolás Penn MD; Dr. Karine Naranjo DO; Dr. Dajuan Eric MD ~ Signed [facility] Work Phone: Eosinophil percentageOrdered By: Jairo Hackett on 09-06-2024 Eosinophils/100 WBC (Bld) 0.8 % 0-5 [facility] Erythrocyte distribution wid th ratioOrdered By: Jairo Hackett on 09-06-2024 Erythrocyte distribution width (RBC) [Ratio] 12.1 % 11.6-14.6 [facility] Erythrocyte distribution wid th standard deviationOrdered By: Jairo Hackett on 09-06-2024 Erythrocyte distribution width (RBC) [Entitic vol] 40.6 fL 35.1-43.9 [facility] Erythrocyte distribution width (RBC) [Ratio] 40.6 fl 35.1-43.9 [facility] Estimation of creatinine nichelle aranceOrdered By: Jairo Hackett on 09-06-2024 Estimated Creatinine Clearance Calc 56.82 ml/min 50-250 [facility] FOLATES,SERUM (FOLIC ACID)on 09-06-2024 FOLATES,SERUM 19.00 ng/mL Normal 4.60-34.80 [facility] Comment on above: Result Comment: Hemo lysis, Results will be affected, Requires Recollection. Performed By: #### L 501.5200, L506.0200 ####[facility] [address], [place], [id number] Folate [Moles/Vol]Ordered By : Jairo Hackett on 09-06-2024 Serum Folate 19.00 ng/mL 4.60-34.80 [facility] Comment on above: Hemolysis, Results w ill be affected, Requires Recollection. Folate [Moles/volume] in Ser um or PlasmaOrdered By: Jairo Hackett on 09-06-2024 Folate [Moles/Vol] 19.00 ng/mL 4.60-34.80 [facility] Comment on above: Hemolysis, Results w ill be affected, Requires Recollection. GFR/1.73 sq M.predicted areli g non-blacks MDRD (S/P/Bld) [Vol rate/Area]Ordered By: Jairo Hackett on 09-06-2024 Estimated GFR (MDRD) Non-Af Amer 82 >60 [facility] Comment on above: mL/min/1.73m2 CKD-EP I Creatinine Equation (2020) Glomerular filtration rate ( GFR) estimation/1.73 sq m using serum, plasma, or whole bOrdered By: Jairo Hackett on 09-06-2024 GFR/1.73 sq M.predicted among non-blacks MDRD (S/P/Bld) [Vol rate/Area] 82 mL/min/{1.73_m2} >60 [facility] Comment on above: mL/min/1.73m2 CKD-EP I Creatinine Equation (2020) [facility] deOrdered By: Karine Naranjo on 09-06-2024 Bedside Glucose (Misc Panel) 139 mg/dL [facility] 74-106 [facility] Comment on above: MANAGEMENT OF PATIEN T CARE PER NURSING PROTOCOL Glucose [Mass/Vol] 139 mg/dL High 74-106 [facility] Comment on above: MANAGEMENT OF PATIEN T CARE PER NURSING PROTOCOL Hematocrit Auto (Bld) [Volum e fraction]Ordered By: Jairo Hackett on 09-06-2024 Hematocrit (Bld) [Volume fraction] 38.1 % 37-47 [facility] Hemoglobin A1con 09-06-2024 HbA1c (Bld) [Mass fraction] 6.7 % Normal <=5.6 [facility] Comment on above: Performed By: #### L 501.9520, L501.9985 ####[facility] [address] [place], [place], [id number] Hemoglobin measurementOrdere d By: Jairo Hackett on 09-06-2024 Hemoglobin (Bld) [Mass/Vol] 12.3 g/dL 12.0-15.0 [facility] Immature granulocytes/100 WB C Auto (Bld)Ordered By: Jairo Hackett on 09-06-2024 Immature granulocytes/100 WBC (Bld) 0.200 % 0.0-0.9 [facility] Comment on above: IG% - Immature Granu locytes (promyelocytes, myelocytes and metamyelocytes) > 1% indicates that a LEFT SHIFT is Present. L499.0043on 09-06-2024 Trop T High Sen 14 ng/L Normal <=14 [facility] Comment on above: Performed By: #### L 499.0043 ####[facility] [address] [place], [address] LDL calc ser/plasOrdered By: Jairo Hackett on 09-06-2024 Cholesterol in LDL [Mass/Vol] 59 mg/dL [facility] Comment on above: Edzumnfzzz=202-796 m g/dL & Higher Viik=881 mg/dL or greater LDL Cholesterol, Calculated 59 mg/dL [facility] Comment on above: Cktrcrrpeq=400-993 m g/dL & Higher Dvhk=612 mg/dL or greater Laboratory - Chemistry and C hemistry - challengeOrdered By: Jairo Hackett on 09-06-2024 AST [Catalytic activity/Vol] 17 U/L <32 [facility] Lipid Profileon 09-06-2024 CHOL:HDL 2.24 Normal [facility] Comment on above: Performed By: #### L 100.0100, L501.2300, L500.4100, L500.4050 ####[facility] [address] [place], [address] Cholesterol [Mass/Vol] 129 mg/dL Normal <=200 [facility] Comment on above: Result Comment: Chol esterol level, Desirable <200 mg/dLBorderline high cholesterol 200-239 mg/dLHigh cholesterol >=240 mg/dLRecommendations of the NCEP Adult Treatment Panel for thefollowing risk-cutoff thresholds for the [place] Americanpopulation. Performed By: #### L 100.0100, L501.2300, L500.4100, L500.4050 ####[facility] [address] [place], [address] Cholesterol in HDL [Mass/Vol] 58 mg/dL Normal [facility] Comment on above: Result Comment: Dagmar onal Cholesterol Education Program (NCEP) guidelines:<40 mg/dL: Low HDL-cholesterol (major risk factor for CHD)>= 60 mg/dL: High HDL-cholesterol (negative risk factor forCHD)HDL-cholesterol is affected by a number of factors, e.g.smoking, exercise, hormones, sex and age. Performed By: #### L 100.0100, L501.2300, L500.4100, L500.4050 ####[facility] [address] [place], [address] Cholesterol in LDL [Mass/Vol] 59 mg/dL Normal [facility] Comment on above: Result Comment: Bord dyvtht=669-407 mg/dL Higher Kqtz=765 mg/dL or greater Performed By: #### L 100.0100, L501.2300, L500.4100, L500.4050 ####[facility] [address] [place], [address] Cholesterol in VLDL [Mass/Vol] 13 mg/dL Normal 5-40 [facility] Comment on above: Performed By: #### L 100.0100, L501.2300, L500.4100, L500.4050 ####[facility] [address] [place], [address] Triglyceride [Mass/Vol] 63 mg/dL Normal [facility] Comment on above: Result Comment: The drugs N-Acetylcysteine and Metamizole may falselydepress this assay.Normal range: <150 mg/dLBorderline High: 150-199 mg/dLHigh: 200-499 mg/dLVery High: >500 mg/dL Performed By: #### L 100.0100, L501.2300, L500.4100, L500.4050 ####[facility] [address] [place], [address] Lymphocytes Auto (Unsp spec) [#/Vol]Ordered By: Jairo Hackett on 09-06-2024 Lymphocytes (Bld) [#/Vol] 1.60 10*3/uL 0.83-4.51 [facility] Lymphocytes/100 WBC Auto (Un sp spec)Ordered By: Jairo Hackett on 09-06-2024 Lymphocytes/100 WBC (Bld) 18.6 % Low 19-41 [facility] MCV (mean corpuscular volume ) determinationOrdered By: Jairo Hackett on 09-06-2024 MCV (RBC) [Entitic vol] 91.1 fL 81-99 [facility] Magnesiumon 09-06-2024 Magnesium [Mass/Vol] 2.0 mg/dL Normal 1.5-2.2 [facility] Comment on above: Performed By: #### L 501.5200, L506.0200 ####[facility] [address] [place], [address] Mean corpuscular hemoglobin (MCH) determinationOrdered By: Jairo Hackett on 09-06-2024 MCH (RBC) [Entitic mass] 29.4 pg 27.0-32.0 [facility] Mean corpuscular hemoglobin concentration (MCHC) determinationOrdered By: Jairo Hackett on 09-06-2024 MCHC (RBC) [Mass/Vol] 32.3 g/dL 32-36 [facility] Mean platelet volume determi nationOrdered By: Jairo Hackett on 09-06-2024 Platelet mean volume (Bld) [Entitic vol] 9.1 fL 6.2-12.0 [facility] Monocyte percentageOrdered B y: Jairo Hackett on 09-06-2024 Monocytes/100 WBC (Bld) 9.7 % 0-10 [facility] Neutrophil percentageOrdered By: Jairo Hackett on 09-06-2024 Neutrophils/100 WBC (Bld) 70.1 % High 47-70 [facility] Nucleated red blood cell per centageOrdered By: Jairo Hackett on 09-06-2024 Nucleated RBC/100 WBC (Bld) [Ratio] 0 % 0-5 [facility] Phosphoruson 09-06-2024 Phosphate [Mass/Vol] 2.8 mg/dL Normal 2.7-4.5 [facility] Comment on above: Result Comment: AMENDED REPORT 09/06/24 0606 PHOS previously reported as: 2.6 L mg/dL Performed By: #### L 100.0100, L501.2300, L500.4100, L500.4050 ####[facility] [address] [place], [address] Platelet countOrdered By: Kole Hackett on 09-06-2024 Platelets (Bld) [#/Vol] 206 10*3/uL 150-450 [facility] Potassium (Unsp spec) [Mass/ Vol]Ordered By: Jairo Hackett on 09-06-2024 Potassium [Moles/Vol] 4.2 mmol/L 3.3-5.1 [facility] Potassium measurement (mass/ volume)Ordered By: Jairo Hackett on 09-06-2024 Potassium (Unsp spec) [Mass/Vol] 4.2 mmol/L 3.3-5.1 [facility] RBC Auto (Bld) [#/Vol]Ordere d By: Jairo Hackett on 09-06-2024 RBC (Bld) [#/Vol] 4.18 10*6/uL Low 4.2-5.4 [facility] Screening total cholesterol/ high density lipoprotein (HDL) cholesterol ratioOrdered By: Jairo Hackett on 09-06-2024 Cholesterol.total/Chol esterol in HDL [Mass ratio] 2.24 {ratio} [facility] Serum creatinine measurement (mass/volume)Ordered By: Jairo Hackett on 09-06-2024 Creatinine [Mass/Vol] 0.77 mg/dL 0.70-1.20 [facility] Serum globulin measurementOr dered By: Jairo Hackett on 09-06-2024 Globulin (S) [Mass/Vol] 1.6 g/dL Low 2.2-4.2 [facility] Serum glucose measurement (m ass/volume)Ordered By: Jairo Hackett on 09-06-2024 Glucose [Mass/Vol] 146 mg/dL High 70-99 [facility] Serum or plasma alanine cruz otransferase (ALT) measurementOrdered By: Jairo Hackett on 09-06-2024 ALT [Catalytic activity/Vol] 19 U/L <35 [facility] Serum or plasma albumin garrett urement (mass/volume)Ordered By: Jairo Hackett on 09-06-2024 Albumin [Mass/Vol] 3.1 g/dL Low 3.4-4.8 [facility] Serum or plasma albumin/glob ulin mass ratioOrdered By: Jairo Hackett on 09-06-2024 Albumin/Globulin [Mass ratio] 2.0 {ratio} 0.9-2.4 [facility] Serum or plasma alkaline rosette sphatase measurementOrdered By: Jairo Hackett on 09-06-2024 ALP [Catalytic activity/Vol] 77 U/L 35-104 [facility] Serum or plasma calcium garrett urement (mass/volume)Ordered By: Jairo Hackett on 09-06-2024 Calcium [Mass/Vol] 8.1 mg/dL 7.6-11.0 [facility] Serum or plasma cholesterol in HDL measurement (mass/volume)Ordered By: Jairo Hackett on 09-06-2024 Cholesterol in HDL [Mass/Vol] 58 mg/dL >40 [facility] Comment on above: National Cholesterol Education Program (NCEP) guidelines:<40 mg/dL: Low HDL-cholesterol (major risk factor for CHD)>= 60 mg/dL: High HDL-cholesterol (negative risk factor for CHD)HDL-cholesterol is affected by a number of factors, e.g. smoking, exercise, hormones, sex and age. Serum or plasma cholesterol measurement (mass/volume)Ordered By: Jairo Hackett on 09-06-2024 Cholesterol [Mass/Vol] 129 mg/dL <201 [facility] Comment on above: Cholesterol level, D esirable <200 mg/dLBorderline high cholesterol 200-239 mg/dLHigh cholesterol >=240 mg/dLRecommendations of the NCEP Adult Treatment Panel for the following risk-cutoff thresholds for the [place] population. Serum or plasma urea nitroge n measurement (mass/volume)Ordered By: Jairo Hackett on 09-06-2024 Urea nitrogen [Mass/Vol] 19 mg/dL 4-19 [facility] Serum phosphorus measurement Ordered By: Jairo Hackett on 09-06-2024 Phosphorus Level 2.8 mg/dL 2.7-4.5 [facility] Comment on above: Previous reported re sult: 2.6 mg/dLEdited by: AUTOINS on 09/06/24:0606 AMENDED REPORT 09/06/24 0606 PHOS previously reported as: 2.6 L mg/dL Sodium levelOrdered By: Wang Hackett on 09-06-2024 Sodium [Moles/Vol] 141 mmol/L 133-145 [facility] Thyroid Stim Hormone (TSH)on 09-06-2024 TSH 1.550 uIU/mL Normal 0.300-4.200 [facility] Comment on above: Performed By: #### L 501.9520, L501.9985 ####[facility] [address] [place], [place], [address] Total proteinOrdered By: Byron Hackett on 09-06-2024 Protein [Mass/Vol] 4.7 g/dL Low 5.9-8.4 [facility] Triglycerides measurementOrd ered By: Jairo Hackett on 09-06-2024 Triglyceride [Mass/Vol] 63 mg/dL <199 [facility] Comment on above: The drugs N-Acetylcy steine and Metamizole may falsely depress this assay. Normal range: <150 mg/dLBorderline High: 150-199 mg/dLHigh: 200-499 mg/dLVery High: >500 mg/dL Troponin T.cardiac High sens itivity method [Mass/Vol]Ordered By: Nicolás Penn on 09-06-2024 Troponin T High Sensitivity 4 Hour 14 ng/L <14 [facility] Troponin T.cardiac [Mass/vol ume] in Serum or Plasma by High sensitivity methodOrdered By: Nicolás Penn on 09-06-2024 Troponin T.cardiac High sensitivity method [Mass/Vol] 14 ng/L <14 [facility] White blood cell (WBC) count Ordered By: Jairo Hackett on 09-06-2024 WBC (Bld) [#/Vol] 8.6 10*3/uL 4.4-11.0 [facility] 12 Lead EKGon 09-05-2024 12 Lead EKG Normal [facility] Absolute neutrophil countOrd ered By: Nicolás Penn on 09-05-2024 Neutrophils (Bld) [#/Vol] 6.1 10*3/uL 2.0-7.7 [facility] Anion gap in Serum or Plasma Ordered By: Nicolás Penn on 09-05-2024 Anion gap [Moles/Vol] 14 mmol/L 10-24 [facility] BUN/creatinine ratioOrdered By: Nicolás Penn on 09-05-2024 Urea nitrogen/Creatinine [Mass ratio] 18.3 mg/mg 03-31 [facility] Basic Metabolic Profile (BMP )on 09-05-2024 BUN/CRE 18.3 RATIO Normal 03-31 [facility] Comment on above: Performed By: #### L 100.0100, L501.4021, L500.2500 ####[facility] [address] [place], [address] Calcium [Mass/Vol] 8.7 mg/dL Normal 7.6-11.0 [facility] Comment on above: Performed By: #### L 100.0100, L501.4021, L500.2500 ####[facility] [address] [place], [address] Chloride [Moles/Vol] 104 mmol/L Normal 98-108 [facility] Comment on above: Performed By: #### L 100.0100, L501.4021, L500.2500 ####[facility] [address] [place], [address] CO2 [Moles/Vol] 21.6 mmol/L Normal 21.0-32.0 [facility] Comment on above: Performed By: #### L 100.0100, L501.4021, L500.2500 ####[facility] [address] [place], [address] Creatinine [Mass/Vol] 1.01 mg/dL Normal 0.70-1.20 [facility] Comment on above: Performed By: #### L 100.0100, L501.4021, L500.2500 ####[facility] [address] [place], [address] ECRCL 46.80 ml/min Low 50-250 [facility] Comment on above: Performed By: #### L 100.0100, L501.4021, L500.2500 ####[facility] [address] [place], [address] GAP 14 Normal 5-15 [facility] Comment on above: Performed By: #### L 100.0100, L501.4021, L500.2500 ####[facility] [address] [place], [address] GFR/1.73 sq M.predicted among non-blacks MDRD (S/P/Bld) [Vol rate/Area] 59 mL/min/{1.73_m2} Low >60 [facility] Comment on above: Result Comment: mL/m in/1.73m2 CKD-EPI Creatinine Equation (2020) Performed By: #### L 100.0100, L501.4021, L500.2500 ####[facility] [address] [place], [address] Glucose [Mass/Vol] 157 mg/dL High 70-99 [facility] Comment on above: Performed By: #### L 100.0100, L501.4021, L500.2500 ####[facility] [address] [place], [address] Potassium [Moles/Vol] 4.2 mmol/L Normal 3.3-5.1 [facility] Comment on above: Performed By: #### L 100.0100, L501.4021, L500.2500 ####[facility] [address] [place], [address] Sodium [Moles/Vol] 139 mmol/L Normal 133-145 [facility] Comment on above: Performed By: #### L 100.0100, L501.4021, L500.2500 ####[facility] [address] [place], [address] Urea nitrogen [Mass/Vol] 19 mg/dL Normal 4-19 [facility] Comment on above: Performed By: #### L 100.0100, L501.4021, L500.2500 ####[facility] [address] [place], [address] Basophil percentageOrdered B y: Nicolás Penn on 09-05-2024 Basophils/100 WBC (Bld) 0.4 % 0-1 [facility] CBC W/Diff, Automatedon 08-11 Absolute Lymph 2.18 X10 3/uL Normal 0.83-4.51 [facility] Comment on above: Performed By: #### L 100.0100, L501.4021, L500.2500 ####[facility] [address] [place], [address] Absolute Neut 6.1 X10 3/uL Normal 2.0-7.7 [facility] Comment on above: Performed By: #### L 100.0100, L501.4021, L500.2500 ####[facility] [address] [place], [address] Basophils/100 WBC (Bld) 0.4 % Normal 0-1 [facility] Comment on above: Performed By: #### L 100.0100, L501.4021, L500.2500 ####[facility] [address] [place], [address] Eosinophils/100 WBC (Bld) 0.7 % Normal 0-5 [facility] Comment on above: Performed By: #### L 100.0100, L501.4021, L500.2500 ####[facility] [address] [place], [address] Erythrocyte distribution width (RBC) [Ratio] 12.0 % Normal 11.6-14.6 [facility] Comment on above: Performed By: #### L 100.0100, L501.4021, L500.2500 ####[facility] [address] [place], [address] Hematocrit (Bld) [Volume fraction] 41.4 % Normal 37-47 [facility] Comment on above: Performed By: #### L 100.0100, L501.4021, L500.2500 ####[facility] [address] [place], [address] Hemoglobin (Bld) [Mass/Vol] 13.4 g/dL Normal 12.0-15.0 [facility] Comment on above: Performed By: #### L 100.0100, L501.4021, L500.2500 ####[facility] [address] [place], [address] IG% 0.300 Normal 0.0-0.9 [facility] Comment on above: Result Comment: IG% - Immature Granulocytes (promyelocytes, myelocytes andmetamyelocytes) > 1% indicates that a LEFT SHIFT is Present. Performed By: #### L 100.0100, L501.4021, L500.2500 ####[facility] [address] [place], [address] Lymphocytes/100 WBC (Bld) 23.2 % Normal 19-41 [facility] Comment on above: Performed By: #### L 100.0100, L501.4021, L500.2500 ####[facility] [address] [place], [address] MCH (RBC) [Entitic mass] 29.9 pg Normal 27.0-32.0 [facility] Comment on above: Performed By: #### L 100.0100, L501.4021, L500.2500 ####[facility] [address] [place], [address] MCHC (RBC) [Mass/Vol] 32.4 g/dL Normal 32-36 [facility] Comment on above: Performed By: #### L 100.0100, L501.4021, L500.2500 ####[facility] [address] [place], [address] MCV (RBC) [Entitic vol] 92.4 fL Normal 81-99 [facility] Comment on above: Performed By: #### L 100.0100, L501.4021, L500.2500 ####[facility] [address] [place], [address] Monocytes/100 WBC (Bld) 10.4 % High 0-10 [facility] Comment on above: Performed By: #### L 100.0100, L501.4021, L500.2500 ####[facility] [address] [place], [address] Neutrophils/100 WBC (Bld) 65.0 % Normal 47-70 [facility] Comment on above: Performed By: #### L 100.0100, L501.4021, L500.2500 ####[facility] [address] [place], [address] Nucleated RBC (Bld) [#/Vol] 0 10*3/uL Normal 0-5 [facility] Comment on above: Performed By: #### L 100.0100, L501.4021, L500.2500 ####[facility] [address] [place], [address] Platelet mean volume (Bld) [Entitic vol] 9.4 fL Normal 6.2-12.0 [facility] Comment on above: Performed By: #### L 100.0100, L501.4021, L500.2500 ####[facility] [address] [place], [address] Platelets (Bld) [#/Vol] 225 10*3/uL Normal 150-450 [facility] Comment on above: Performed By: #### L 100.0100, L501.4021, L500.2500 ####[facility] [address] [place], [address] RBC (Bld) [#/Vol] 4.48 10*6/uL Normal 4.2-5.4 [facility] Comment on above: Performed By: #### L 100.0100, L501.4021, L500.2500 ####[facility] [address] [place], [address] RDW SD 41.4 fl Normal 35.1-43.9 [facility] Comment on above: Performed By: #### L 100.0100, L501.4021, L500.2500 ####[facility] [address] [place], [address] WBC (Bld) [#/Vol] 9.4 10*3/uL Normal 4.4-11.0 [facility] Comment on above: Performed By: #### L 100.0100, L501.4021, L500.2500 ####[facility] [address] [place], [address] Carbon dioxide, total [Moles /volume] in Central venous bloodOrdered By: Nicolás Penn on 09-05-2024 CO2 [Moles/Vol] 21.6 mmol/L 21.0-32.0 [facility] Chest 1 View (Portable)on Chest 1 View (Portable) Normal [facility] Chloride assayOrdered By: José Miguel Penn on 09-05-2024 Chloride [Moles/Vol] 104 mmol/L 98-108 [facility] Emergency Department Summary on 09-05-2024 Emergency Department Summary Normal [facility] Eosinophil percentageOrdered By: Nicolás Penn on 09-05-2024 Eosinophils/100 WBC (Bld) 0.7 % 0-5 [facility] Erythrocyte distribution wid th ratioOrdered By: Nicolás Penn on 09-05-2024 Erythrocyte distribution width (RBC) [Ratio] 12.0 % 11.6-14.6 [facility] Erythrocyte distribution wid th standard deviationOrdered By: Nicolás Penn on 09-05-2024 Erythrocyte distribution width (RBC) [Entitic vol] 41.4 fL 35.1-43.9 [facility] Estimation of creatinine nichelle aranceOrdered By: Nicolás Penn on 09-05-2024 Estimated Creatinine Clearance Calc 46.80 ml/min Low 50-250 [facility] GFR/1.73 sq M.predicted areli g non-blacks MDRD (S/P/Bld) [Vol rate/Area]Ordered By: Nicolás Penn on 09-05-2024 Estimated GFR (MDRD) Non-Af Amer 59 Low >60 [facility] Comment on above: mL/min/1.73m2 CKD-EP I Creatinine Equation (2020) H AND P Exam - Hospital[facility] 09-05-2024 H&P Exam - Hospitalist Normal [facility] Hematocrit Auto (Bld) [Volum e fraction]Ordered By: Nicolás Penn on 09-05-2024 Hematocrit (Bld) [Volume fraction] 41.4 % 37-47 [facility] Hemoglobin A1c percentageOrd ered By: Jairo Hackett on 09-05-2024 HbA1c (Bld) [Mass fraction] 6.7 % >5.7 [facility] Hemoglobin measurementOrdere d By: Nicolás Penn on 09-05-2024 Hemoglobin (Bld) [Mass/Vol] 13.4 g/dL 12.0-15.0 [facility] Immature granulocytes/100 WB C Auto (Bld)Ordered By: Nicolás Penn on 09-05-2024 Immature granulocytes/100 WBC (Bld) 0.300 % 0.0-0.9 [facility] Comment on above: IG% - Immature Granu locytes (promyelocytes, myelocytes and metamyelocytes) > 1% indicates that a LEFT SHIFT is Present. L499.0042on 09-05-2024 Trop T High Sen 14 ng/L Normal <=14 [facility] Comment on above: Performed By: #### L 499.0042 ####[facility] [address] [place], [address] L501.4021on 09-05-2024 Trop T High Sen 13 ng/L Normal <=14 [facility] Comment on above: Performed By: #### L 100.0100, L501.4021, L500.2500 ####[facility] [address] [place], [address] Lymphocytes Auto (Unsp spec) [#/Vol]Ordered By: Nicolás Penn on 09-05-2024 Lymphocytes (Bld) [#/Vol] 2.18 10*3/uL 0.83-4.51 [facility] Lymphocytes/100 WBC Auto (Un sp spec)Ordered By: Nicolás Penn on 09-05-2024 Lymphocytes/100 WBC (Bld) 23.2 % 19-41 [facility] MCV (mean corpuscular volume ) determinationOrdered By: Nicolás Penn on 09-05-2024 MCV (RBC) [Entitic vol] 92.4 fL 81-99 [facility] Magnesium (Unsp spec) [Mass/ Vol]Ordered By: Jairo Hackett on 09-05-2024 Magnesium [Mass/Vol] 2.0 mg/dL 1.5-2.2 [facility] Magnesium measurement (mass/ volume)Ordered By: Jairo Hackett on 09-05-2024 Magnesium (Unsp spec) [Mass/Vol] 2.0 mg/dL 1.5-2.2 [facility] Mean corpuscular hemoglobin (MCH) determinationOrdered By: Nicolás Penn on 09-05-2024 MCH (RBC) [Entitic mass] 29.9 pg 27.0-32.0 [facility] Mean corpuscular hemoglobin concentration (MCHC) determinationOrdered By: Nicolás Penn on 09-05-2024 MCHC (RBC) [Mass/Vol] 32.4 g/dL 32-36 [facility] Mean platelet volume determi nationOrdered By: Nicolás Penn on 09-05-2024 Platelet mean volume (Bld) [Entitic vol] 9.4 fL 6.2-12.0 [facility] Monocyte percentageOrdered B y: Nicolás Penn on 09-05-2024 Monocytes/100 WBC (Bld) 10.4 % High 0-10 [facility] Neutrophil percentageOrdered By: Nicolás Penn on 09-05-2024 Neutrophils/100 WBC (Bld) 65.0 % 47-70 [facility] No Panel InformationOrdered By: Nicolás Penn on 09-05-2024 Troponin T High Sensitivity 13 ng/L <14 [facility] Nucleated red blood cell per centageOrdered By: Nicolás Penn on 09-05-2024 Nucleated RBC/100 WBC (Bld) [Ratio] 0 % 0-5 [facility] Platelet countOrdered By: José Miguel Penn on 09-05-2024 Platelets (Bld) [#/Vol] 225 10*3/uL 150-450 [facility] Potassium (Unsp spec) [Mass/ Vol]Ordered By: Nicolás Penn on 09-05-2024 Potassium [Moles/Vol] 4.2 mmol/L 3.3-5.1 [facility] RBC Auto (Bld) [#/Vol]Ordere d By: Nicolás Penn on 09-05-2024 RBC (Bld) [#/Vol] 4.48 10*6/uL 4.2-5.4 [facility] Serum creatinine measurement (mass/volume)Ordered By: Nicolás Penn on 09-05-2024 Creatinine [Mass/Vol] 1.01 mg/dL 0.70-1.20 [facility] Serum glucose measurement (m ass/volume)Ordered By: Nicolás Penn on 09-05-2024 Glucose [Mass/Vol] 157 mg/dL High 70-99 [facility] Serum or plasma calcium garrett urement (mass/volume)Ordered By: Nicolás Penn on 09-05-2024 Calcium [Mass/Vol] 8.7 mg/dL 7.6-11.0 [facility] Serum or plasma urea nitroge n measurement (mass/volume)Ordered By: Nicolás Penn on 09-05-2024 Urea nitrogen [Mass/Vol] 19 mg/dL 4-19 [facility] Sodium levelOrdered By: Nicolás Penn on 09-05-2024 Sodium [Moles/Vol] 139 mmol/L 133-145 [facility] TSH DL <= 0.005 mIU/L QnOrde red By: Jairo Hackett on 09-05-2024 Thyroid Stimulating Hormone (TSH) 1.550 uIU/mL 0.300-4.200 [facility] TSH Qn 1.550 uIU/mL 0.300-4.200 [facility] Troponin T.cardiac High sens itivity method [Mass/Vol]Ordered By: Nicolás Penn on 09-05-2024 Troponin T High Sensitivity 2 Hour 14 ng/L <14 [facility] Troponin T.cardiac [Mass/vol ume] in Serum or Plasma by High sensitivity methodOrdered By: Nicolás Penn on 09-05-2024 Troponin T.cardiac High sensitivity method [Mass/Vol] 14 ng/L <14 [facility] White blood cell (WBC) count Ordered By: Nicolás Penn on 09-05-2024 WBC (Bld) [#/Vol] 9.4 10*3/uL 4.4-11.0 [facility] Bilirubin Test strip Ql (U)O rdered By: Dajuan Eric on 09-04-2024 Bilirubin Ql (U) Negative Negative [facility] Glucose Ql (U)Ordered By: Michelle Eric on 09-04-2024 Glucose (U) [Mass/Vol] 1000 mg/dL High Normal [facility] Ketones Test strip Ql (U)Ord ered By: Dajuan Eric on 09-04-2024 Ketones Ql (U) Negative Negative [facility] Nitrite Test strip Ql (U)Ord ered By: Dajuan Eric on 09-04-2024 Nitrite Ql (U) Negative Negative [facility] Protein Test strip Ql (U)Ord ered By: Dajuan Eric on 09-04-2024 Protein Ql (U) 15 mg/dl High Negative [facility] Urinalysis, Routine (Dipstic k)on 09-04-2024 BILIRUBIN URINE Negative Normal Negative [facility] Comment on above: Order Comment: Urine , Random Performed By: #### M 100.0, L4 ####[facility] [address] [place], [place], [address] Clarity (U) Clear Normal Clear [facility] Comment on above: Order Comment: Urine , Random Performed By: #### M 100.0, L4 ####[facility] [address] [place], [address] Color (U) Yellow Normal Yellow [facility] Comment on above: Order Comment: Urine , Random Performed By: #### M .2199, ####[facility] [address] [place], [address] GLUCOSE, UR 1000 mg/dl Abnormal Normal [facility] Comment on above: Order Comment: Urine , Random Performed By: #### M , ####[facility] [address] [place], [address] KETONE UR Negative Normal Negative [facility] Comment on above: Order Comment: Urine , Random Performed By: #### M , ####[facility] [address] [place], [address] LEUK ESTERASE 25 /ul Abnormal Negative [facility] Comment on above: Order Comment: Urine , Random Performed By: #### M , ####[facility] [address] [place], [address] Nitrite Ql (U) Negative Normal Negative [facility] Comment on above: Order Comment: Urine , Random Performed By: #### M , ####[facility] [address] [place], [address] OCCULT BLOOD-UR 10 /ul Abnormal Negative [facility] Comment on above: Order Comment: Urine , Random Performed By: #### M , L4 ####[facility] [address] [place], [address] pH UR 6.0 Normal 5.0 - 8.0 [facility] Comment on above: Order Comment: Urine , Random Performed By: #### M , L4 ####[facility] [address] [place], [address] PROT DIPSTX 15 mg/dl Abnormal Negative [facility] Comment on above: Order Comment: Urine , Random Performed By: #### M 100.2200, L4.2010 ####[facility] [address] [place], [address] SP.GR. DIPSTX 1.010 Normal 1.002-1.030 [facility] Comment on above: Order Comment: Urine , Random Performed By: #### M 100.2200, L4.2010 ####[facility] [address] [place], [address] UROBILI Normal Normal Normal [facility] Comment on above: Order Comment: Urine , Random Performed By: #### M 100.0, L4.2010 ####[facility] [address] [place], [address] Urine blood detectionOrdered By: Dajuan Eric on 09-04-2024 Urine Occult Blood 10 /ul High Negative [facility] Urine clarityOrdered By: Cesar rEic on 09-04-2024 Clarity (U) Clear Clear [facility] Urine color determinationOrd ered By: Dajuan Eric on 09-04-2024 Color (U) Yellow Yellow [facility] Urine cultureOrdered By: Cesar Eric on 09-04-2024 Bacteria identified Cx Nom (U) Presumptive E. coli Abnormal [facility] Urine glucose detectionOrder ed By: Dajuan Eric on 09-04-2024 Glucose Ql (U) 1000 mg/dl High Normal [facility] Urine leukocyte esterase det ection by dipstickOrdered By: Dajuan Eric on 09-04-2024 Leukocyte esterase Test strip Ql (U) 25 /ul High Negative [facility] Urine pHOrdered By: Dajuan jasmine on 09-04-2024 pH (U) 6.0 [pH] 5.0 - 8.0 [facility] Urine specific gravity measu rementOrdered By: Dajuan Eric on 09-04-2024 Specific gravity (U) [Rel density] 1.010 1.002-1.030 [facility] Urine urobilinogen measureme ntOrdered By: Dajuan Hernesto on 09-04-2024 Urobilinogen Ql (U) Normal mg/dl Normal [facility] Urobilinogen Ql (U)Ordered B y: Dajuan Hernesto on 09-04-2024 Urine Urobilinogen Normal mg/dl Normal [facility] 12 Lead EKG performed by BMS on 08-27-2024 12 Lead EKG performed by [facility] Normal [facility] Absolute lymphocyte countOrd ered By: Anthony Juarez on 08-27-2024 Lymphocytes Auto (Unsp spec) [#/Vol] 2.06 10*3/uL 0.83-4.51 [facility] Absolute neutrophil countOrd ered By: Anthony Juarez on 08-27-2024 Neutrophils (Bld) [#/Vol] 9.2 10*3/uL High 2.0-7.7 [facility] Anion gap in Serum or Plasma Ordered By: Anthony Juarez on 08-27-2024 Anion gap [Moles/Vol] 6 mmol/L 5-15 [facility] Automated lymphocyte count a s percentage of total leukocytesOrdered By: Anthony Juarez on 08-27-2024 Lymphocytes/100 WBC Auto (Unsp spec) 16.3 % Low 19-41 [facility] BUN/creatinine ratioOrdered By: Anthony Juarez on 08-27-2024 Urea nitrogen/Creatinine [Mass ratio] 34.1 mg/mg High 10-20 [facility] Basic Metabolic Profile (BMP )on 08-27-2024 BUN/CRE 34.1 RATIO High 10-20 [facility] Comment on above: Performed By: #### L 506.0400, L500.2500, L100.0100, L501.5200, L501.9520 ####[facility] [address] [place], [place], [id number] Calcium [Mass/Vol] 9.3 mg/dL Normal 7.6-11.0 [facility] Comment on above: Performed By: #### L 506.0400, L500.2500, L100.0100, L501.5200, L501.9520 ####[facility] [address] [place], [address] Chloride [Moles/Vol] 104 mmol/L Normal 98-108 [facility] Comment on above: Performed By: #### L 506.0400, L500.2500, L100.0100, L501.5200, L501.9520 ####[facility] [address] [place], [address] CO2 [Moles/Vol] 28.1 mmol/L Normal 21.0-32.0 [facility] Comment on above: Performed By: #### L 506.0400, L500.2500, L100.0100, L501.5200, L501.9520 ####[facility] [address] [place], [address] Creatinine [Mass/Vol] 0.71 mg/dL Normal 0.70-1.20 [facility] Comment on above: Performed By: #### L 506.0400, L500.2500, L100.0100, L501.5200, L501.9520 ####[facility] [address] [place], [address] GAP 6 Normal 5-15 [facility] Comment on above: Performed By: #### L 506.0400, L500.2500, L100.0100, L501.5200, L501.9520 ####[facility] [address] [place], [address] GFR/1.73 sq M.predicted among non-blacks MDRD (S/P/Bld) [Vol rate/Area] 90 mL/min/{1.73_m2} Normal >60 [facility] Comment on above: Result Comment: mL/m in/1.73m2 CKD-EPI Creatinine Equation (2020) Performed By: #### L 506.0400, L500.2500, L100.0100, L501.5200, L501.9520 ####[facility] [address] [place], [address] Glucose [Mass/Vol] 120 mg/dL High 70-99 [facility] Comment on above: Performed By: #### L 506.0400, L500.2500, L100.0100, L501.5200, L501.9520 ####[facility] [address] [place], [address] Potassium [Moles/Vol] 4.2 mmol/L Normal 3.3-5.1 [facility] Comment on above: Performed By: #### L 506.0400, L500.2500, L100.0100, L501.5200, L501.9520 ####[facility] [address] [place], [address] Sodium [Moles/Vol] 139 mmol/L Normal 133-145 [facility] Comment on above: Performed By: #### L 506.0400, L500.2500, L100.0100, L501.5200, L501.9520 ####[facility] [address] [place], [address] Urea nitrogen [Mass/Vol] 24 mg/dL High 4-19 [facility] Comment on above: Performed By: #### L 506.0400, L500.2500, L100.0100, L501.5200, L501.9520 ####[facility] [address] [place], [address] Basophil percentageOrdered B y: Anthony Juarez on 08-27-2024 Basophils/100 WBC (Bld) 0.5 % 0- [facility] CBC W/Diff, Automatedon 08-10 Absolute Lymph 2.06 X10 3/uL Normal 0.83-4.51 [facility] Comment on above: Performed By: #### L 506.0400, L500.2500, L100.0100, L501.5200, L501.9520 ####[facility] [address] [place], [address] Absolute Neut 9.2 X10 3/uL High 2.0-7.7 [facility] Comment on above: Performed By: #### L 506.0400, L500.2500, L100.0100, L501.5200, L501.9520 ####[facility] [address] [place], [address] Basophils/100 WBC (Bld) 0.5 % Normal 0-1 [facility] Comment on above: Performed By: #### L 506.0400, L500.2500, L100.0100, L501.5200, L501.9520 ####[facility] [address] [place], [address] Eosinophils/100 WBC (Bld) 0.6 % Normal 0-5 [facility] Comment on above: Performed By: #### L 506.0400, L500.2500, L100.0100, L501.5200, L501.9520 ####[facility] [address] [place], [address] Erythrocyte distribution width (RBC) [Ratio] 12.1 % Normal 11.6-14.6 [facility] Comment on above: Performed By: #### L 506.0400, L500.2500, L100.0100, L501.5200, L501.9520 ####[facility] [address] [place], [address] Hematocrit (Bld) [Volume fraction] 41.5 % Normal 37-47 [facility] Comment on above: Performed By: #### L 506.0400, L500.2500, L100.0100, L501.5200, L501.9520 ####[facility] [address] [place], [address] Hemoglobin (Bld) [Mass/Vol] 13.3 g/dL Normal 12.0-15.0 [facility] Comment on above: Performed By: #### L 506.0400, L500.2500, L100.0100, L501.5200, L501.9520 ####[facility] [address] [place], [address] IG% 0.300 Normal 0.0-0.9 [facility] Comment on above: Result Comment: IG% - Immature Granulocytes (promyelocytes, myelocytes andmetamyelocytes) > 1% indicates that a LEFT SHIFT is Present. Performed By: #### L 506.0400, L500.2500, L100.0100, L501.5200, L501.9520 ####[facility] [address] [place], [address] Lymphocytes/100 WBC (Bld) 16.3 % Low 19-41 [facility] Comment on above: Performed By: #### L 506.0400, L500.2500, L100.0100, L501.5200, L501.9520 ####[facility] [address] [place], [address] MCH (RBC) [Entitic mass] 29.5 pg Normal 27.0-32.0 [facility] Comment on above: Performed By: #### L 506.0400, L500.2500, L100.0100, L501.5200, L501.9520 ####[facility] [address] [place], [address] MCHC (RBC) [Mass/Vol] 32.0 g/dL Normal 32-36 [facility] Comment on above: Performed By: #### L 506.0400, L500.2500, L100.0100, L501.5200, L501.9520 ####[facility] [address] [place], [address] MCV (RBC) [Entitic vol] 92.0 fL Normal 81-99 [facility] Comment on above: Performed By: #### L 506.0400, L500.2500, L100.0100, L501.5200, L501.9520 ####[facility] [address] [place], [address] Monocytes/100 WBC (Bld) 9.5 % Normal 0-10 [facility] Comment on above: Performed By: #### L 506.0400, L500.2500, L100.0100, L501.5200, L501.9520 ####[facility] [address] [place], [address] Neutrophils/100 WBC (Bld) 72.8 % High 47-70 [facility] Comment on above: Performed By: #### L 506.0400, L500.2500, L100.0100, L501.5200, L501.9520 ####[facility] [address] [place], [address] Nucleated RBC (Bld) [#/Vol] 0 10*3/uL Normal 0-5 [facility] Comment on above: Performed By: #### L 506.0400, L500.2500, L100.0100, L501.5200, L501.9520 ####[facility] [address] [place], [address] Platelet mean volume (Bld) [Entitic vol] 9.3 fL Normal 6.2-12.0 [facility] Comment on above: Performed By: #### L 506.0400, L500.2500, L100.0100, L501.5200, L501.9520 ####[facility] [address] [place], [address] Platelets (Bld) [#/Vol] 256 10*3/uL Normal 150-450 [facility] Comment on above: Performed By: #### L 506.0400, L500.2500, L100.0100, L501.5200, L501.9520 ####[facility] [address] [place], [address] RBC (Bld) [#/Vol] 4.51 10*6/uL Normal 4.2-5.4 [facility] Comment on above: Performed By: #### L 506.0400, L500.2500, L100.0100, L501.5200, L501.9520 ####[facility] [address] [place], [address] RDW SD 41.0 fl Normal 35.1-43.9 [facility] Comment on above: Performed By: #### L 506.0400, L500.2500, L100.0100, L501.5200, L501.9520 ####[facility] [address] [place], [address] WBC (Bld) [#/Vol] 12.6 10*3/uL High 4.4-11.0 [facility] Comment on above: Performed By: #### L 506.0400, L500.2500, L100.0100, L501.5200, L501.9520 ####[facility] [address] [place], [address] Carbon dioxide, total [Moles /volume] in Central venous bloodOrdered By: Anthony Juarez on 08-27-2024 CO2 [Moles/Vol] 28.1 mmol/L 21.0-32.0 [facility] Cardiology Visit Reporton Cardiology Visit Report Normal [facility] Chloride assayOrdered By: Joanne Juarez on 08-27-2024 Chloride [Moles/Vol] 104 mmol/L 98-108 [facility] Eosinophil percentageOrdered By: Anthony Juarez on 08-27-2024 Eosinophils/100 WBC (Bld) 0.6 % 0-5 [facility] Erythrocyte distribution wid th ratioOrdered By: Anthony Juarez on 08-27-2024 Erythrocyte distribution width (RBC) [Ratio] 12.1 % 11.6-14.6 [facility] Erythrocyte distribution wid th standard deviationOrdered By: Anthony Juarez on 08-27-2024 Erythrocyte distribution width (RBC) [Entitic vol] 41.0 fL 35.1-43.9 [facility] Erythrocyte distribution width (RBC) [Ratio] 41.0 fl 35.1-43.9 [facility] GFR/1.73 sq M.predicted areli g non-blacks MDRD (S/P/Bld) [Vol rate/Area]Ordered By: Anthony Juarez on 08-27-2024 Estimated GFR (MDRD) Non-Af Amer 90 >60 [facility] Comment on above: mL/min/1.73m2 CKD-EP I Creatinine Equation (2020) Glomerular filtration rate ( GFR) estimation/1.73 sq m using serum, plasma, or whole bOrdered By: Anthony Juarez on 08-27-2024 GFR/1.73 sq M.predicted among non-blacks MDRD (S/P/Bld) [Vol rate/Area] 90 mL/min/{1.73_m2} >60 [facility] Comment on above: mL/min/1.73m2 CKD-EP I Creatinine Equation (2020) Hematocrit Auto (Bld) [Volum e fraction]Ordered By: Anthony Juarez on 08-27-2024 Hematocrit (Bld) [Volume fraction] 41.5 % 37-47 [facility] Hemoglobin measurementOrdere d By: Anthony Juarez on 08-27-2024 Hemoglobin (Bld) [Mass/Vol] 13.3 g/dL 12.0-15.0 [facility] Immature granulocytes/100 WB C Auto (Bld)Ordered By: Anthony Juarez on 08-27-2024 Immature granulocytes/100 WBC (Bld) 0.300 % 0.0-0.9 [facility] Comment on above: IG% - Immature Granu locytes (promyelocytes, myelocytes and metamyelocytes) > 1% indicates that a LEFT SHIFT is Present. Lymphocytes Auto (Unsp spec) [#/Vol]Ordered By: Anthony Juarez on 08-27-2024 Lymphocytes (Bld) [#/Vol] 2.06 10*3/uL 0.83-4.51 [facility] Lymphocytes/100 WBC Auto (Un sp spec)Ordered By: Anthony Juarez on 08-27-2024 Lymphocytes/100 WBC (Bld) 16.3 % Low 19-41 [facility] MCV (mean corpuscular volume ) determinationOrdered By: Anthony Juarez on 08-27-2024 MCV (RBC) [Entitic vol] 92.0 fL 81-99 [facility] Magnesiumon 08-27-2024 Magnesium [Mass/Vol] 2.2 mg/dL Normal 1.5-2.2 [facility] Comment on above: Performed By: #### L 506.0400, L500.2500, L100.0100, L501.5200, L501.9520 ####[facility] [address] [place], [place], [id number] Magnesium (Unsp spec) [Mass/ Vol]Ordered By: Anthony Juarez on 08-27-2024 Magnesium [Mass/Vol] 2.2 mg/dL 1.5-2.2 [facility] Magnesium measurement (mass/ volume)Ordered By: Anthony Juarez on 08-27-2024 Magnesium (Unsp spec) [Mass/Vol] 2.2 mg/dL 1.5-2.2 [facility] Mean corpuscular hemoglobin (MCH) determinationOrdered By: Anthony Juarez on 08-27-2024 MCH (RBC) [Entitic mass] 29.5 pg 27.0-32.0 [facility] Mean corpuscular hemoglobin concentration (MCHC) determinationOrdered By: Anthony Juarez on 08-27-2024 MCHC (RBC) [Mass/Vol] 32.0 g/dL 32-36 [facility] Mean platelet volume determi nationOrdered By: Anthony Juarez on 08-27-2024 Platelet mean volume (Bld) [Entitic vol] 9.3 fL 6.2-12.0 [facility] Monocyte percentageOrdered B y: Anthony Juarez on 08-27-2024 Monocytes/100 WBC (Bld) 9.5 % 0-10 [facility] Neutrophil percentageOrdered By: Anthony Juarez on 08-27-2024 Neutrophils/100 WBC (Bld) 72.8 % High 47-70 [facility] Nucleated red blood cell per centageOrdered By: Anthony Juarez on 08-27-2024 Nucleated RBC/100 WBC (Bld) [Ratio] 0 % 0-5 [facility] Platelet countOrdered By: Joanne Juarez on 08-27-2024 Platelets (Bld) [#/Vol] 256 10*3/uL 150-450 [facility] Potassium (Unsp spec) [Mass/ Vol]Ordered By: Anthony Juarez on 08-27-2024 Potassium [Moles/Vol] 4.2 mmol/L 3.3-5.1 [facility] Potassium measurement (mass/ volume)Ordered By: Anthony Juarez on 08-27-2024 Potassium (Unsp spec) [Mass/Vol] 4.2 mmol/L 3.3-5.1 [facility] RBC Auto (Bld) [#/Vol]Ordere d By: Anthony Juarez on 08-27-2024 RBC (Bld) [#/Vol] 4.51 10*6/uL 4.2-5.4 [facility] Serum creatinine measurement (mass/volume)Ordered By: Anthony Juarez on 08-27-2024 Creatinine [Mass/Vol] 0.71 mg/dL 0.70-1.20 [facility] Serum glucose measurement (m ass/volume)Ordered By: Anthony Juarez on 08-27-2024 Glucose [Mass/Vol] 120 mg/dL High 70-99 [facility] Serum or plasma calcium garrett urement (mass/volume)Ordered By: Anthony Juarez on 08-27-2024 Calcium [Mass/Vol] 9.3 mg/dL 7.6-11.0 [facility] Serum or plasma urea nitroge n measurement (mass/volume)Ordered By: Anthony Juarez on 08-27-2024 Urea nitrogen [Mass/Vol] 24 mg/dL High 4-19 [facility] Sodium levelOrdered By: Anthony Juarez on 08-27-2024 Sodium [Moles/Vol] 139 mmol/L 133-145 [facility] T4 Free Directon 08-27-2024 T4 FREE DIRECT 1.10 ng/dL Normal 0.76-1.46 [facility] Comment on above: Performed By: #### L 506.0400, L500.2500, L100.0100, L501.5200, L501.9520 ####[facility] [address] [place], [place], [id number] T4 freeOrdered By: Anthony Juarez on 08-27-2024 Free T4 [Mass/Vol] 1.10 ng/dL 0.76-1.46 [facility] TSH DL <= 0.005 mIU/L QnOrde red By: Anthony Juarez on 08-27-2024 Thyroid Stimulating Hormone (TSH) 1.090 uIU/mL 0.300-4.200 [facility] TSH Qn 1.090 uIU/mL 0.300-4.200 [facility] Thyroid Stim Hormone (TSH)on 08-27-2024 TSH 1.090 uIU/mL Normal 0.300-4.200 [facility] Comment on above: Performed By: #### L 506.0400, L500.2500, L100.0100, L501.5200, L501.9520 ####[facility] [address] [place], [place], [id number] White blood cell (WBC) count Ordered By: Anthony Juarez on 08-27-2024 WBC (Bld) [#/Vol] 12.6 10*3/uL High 4.4-11.0 [facility] CNOVon 08-03-2024 CNOV Office Visit (UCWSTR ) ERICAEMBER Latham ([id number]) 1950 F Date Time Provider Department 08/03/24 1:30 PM [place] [facility] During your visit today, we recorded the following information about you: Temperature Pulse Respiration Blood pressure 98.7 degrees 65/minute 20/minute 120/58 Weight 69 kg Thompson Pedraza APRN.TECHNICAL SERVICES COORDINATOR 08/03/2024 1:58 PM Signed This note was created using NoteWriter. Subjective Ember Maldonado is a 74 year old female. HPI Pt had been walking with no difficulty but about three days ago developed stabbing pain in her bilateral feet. It feels like here previous episodes of nerve damage. Currently taking Neurontin and also [place] 3 times a day. She denies any recent strain or trauma to her feet. Review of Systems As above Objective BP 120/58 Pulse 65 Temp 37.1 ?C (98.7 ?F) Resp 20 Wt 69 kg (152 lb 1.9 oz) SpO2 95% BMI 27.29 kg/m? Physical Exam Vitals and nursing note reviewed. Constitutional: General: She is not in acute distress. Appearance: Normal appearance. She is not ill-appearing. HENT: Head: Normocephalic. Pulmonary: Effort: Pulmonary effort is normal. Musculoskeletal: Cervical back: Normal range of motion. Comments: Diffuse tenderness across patient's bilateral feet with no obvious swelling, deformities, or erythema noted. Skin: General: Skin is warm and dry. Neurological: General: No focal deficit present. Mental Status: She is alert. Psychiatric: Mood and Affect: Mood normal. Behavior: Behavior normal. Assessment and Plan ASSESSMENT/PLAN: 1. Foot pain, bilateral - ICD9: 729.5, ICD10: M79.671, M79.672 No obvious concerning issues noted on physical exam. I did discuss with patient whether her shoes are no longer giving her appropriate support in her feet and I recommended follow-up podiatry. Patient is known to local podiatry and will follow-up with them. I also recommended follow-up with her PCP to discuss her current gabapentin dosing. Patient comfortable with plan. TRAM Johnson Tim, APRN.CNP 08/03/2024 1:55 PM Signed I am concerned that possibly your shoes are not as supportive as they should be causing a flareup of your nerve pain in your feet. I would recommend that you follow-up with your family doctor and discuss the dosing of your gabapentin and I would also recommend a follow-up with podiatry, a foot doctor, to see if whether inserts in your shoes may help with the symptoms. Allergies As of Date: 08/03/2024 Noted Allergy Reaction SULFA (SULFONAMIDE ANTIBIOTICS) 04/21/2021 10 - Anaphylaxis COMPAZINE (PROCHLORPERAZINE) 09/23/2022 1 - Mental Status Change LYRICA (PREGABALIN) 12/26/2022 1 - Mental Status Change METFORMIN 09/22/2023 8 - GI Upset Comments: Severe stomach pain MOSQUITOS 05/25/2023 10 - Anaphylaxis TORADOL (KETOROLAC) 12/26/2022 14 - Other: See Comments Comments: Causes pain Date Reviewed: 08/03/2024 Reviewed by: Thompson Pedraza APRN.TECHNICAL SERVICES COORDINATOR - Fully Assessed Reason for Visit: Pain (foot) [760] Cmt: DORIAN foot pain, trouble walking x 3-5 days Primary Visit Diagnosis:Foot pain, bilateral [M79.671, M79.672] Prescriptions as of 08/03/2024 - GUAIFENESIN ORAL Take 10 mL by mouth every 4 hours as needed. - rosuvastatin (CRESTOR) 10 mg tablet Take 1 tablet by mouth daily at bedtime. - furosemide (LASIX) 40 mg tablet Take 1 tablet by mouth once daily as needed. - albuterol HFA (PROVENTIL HFA, VENTOLIN HFA) 90 mcg/actuation inhaler Inhale 2 Puffs as instructed every 6 hours as needed for wheezing/shortness of breath. - empagliflozin (JARDIANCE) 25 mg tablet Take 1 tablet by mouth daily with breakfast. - potassium chloride ER (KLOR-CON) 20 mEq tablet Take 1 tablet by mouth once daily as needed (with furosemide). - ondansetron (ZOFRAN) 4 mg tablet Take by mouth every 8 hours as needed for nausea/vomiting. - tiZANidine HCl (ZANAFLEX) 2 mg capsule Take 1 capsule by mouth daily at bedtime. For muscle spasms. - bisacodyl (DULCOLAX) 10 mg supp 1 Suppository by RECTAL route once daily as needed for constipation. If MOM ineffective. - aluminum-magnesium hydroxide (MAG-AL) 200-200 mg/5 mL suspension Take 30 mL by mouth every 4 hours as needed (GI distress). - simethicone, chewable (MYLICON) 80 mg chewable tablet Take 1 tablet by mouth four times a day as needed (gas, bloating). - gabapentin (NEURONTIN) 300 mg capsule Take 2 capsules by mouth three times a day AND 3 capsules daily at bedtime. Do all this for 90 days. Patient should start on May 02, 2024. - tamsulosin (FLOMAX) 0.4 mg Take 1 capsule by mouth once daily. - GLIPIZIDE ORAL Take 2.5 mg by mouth once daily. - ipratropium-albuterol (DUONEB) 0.5 mg-3 mg(2.5 mg base)/3 mL nebu Inhale 3 mL as instructed every 6 hours as needed for wheezing/shortness of breath. - acetaminophen (TYLENOL) 325 mg tablet 650 mg every 4 hours. As nee (more content not included)... Normal [facility] Pulmonary Visit Reporton Pulmonary Visit Report Normal [facility] CNPNon 07-24-2024 CNPN Telephone (INTMWS) EMBER MALDONADO ([id number]) 1950 F Date Time Provider Department 07/24/24 DAJUAN ERIC INTMWS During your visit today, we recorded the following information about you: Summer Hood LPN 07/24/2024 12:04 PM Signed Fax rec'd from Dr. Parker's office.pt has been scheduled for anterior disc fusion C3-4 and C4-5. This is scheduled for 09/25/24. Pt will need a 40 minute pre op appt with pcp or [facility] [employer] within 30 days of scheduled surgery. Called pt's home number with no answer. Summer Hood LPN 07/25/2024 10:37 AM Signed Called pt's home number with no answer. Called pts mobile and message left to return call to arrange 40 minute pre op clearance appt with in 30 days of scheduled surgery Summer Hood LPN 08/09/2024 11:06 AM Signed Called pt again and appt with pcp arranged for 09/09/24. Allergies As of Date: 07/24/2024 Noted Allergy Reaction SULFA (SULFONAMIDE ANTIBIOTICS) 04/21/2021 10 - Anaphylaxis COMPAZINE (PROCHLORPERAZINE) 09/23/2022 1 - Mental Status Change LYRICA (PREGABALIN) 12/26/2022 1 - Mental Status Change METFORMIN 09/22/2023 8 - GI Upset Comments: Severe stomach pain MOSQUITOS 05/25/2023 10 - Anaphylaxis TORADOL (KETOROLAC) 12/26/2022 14 - Other: See Comments Comments: Causes pain Date Reviewed: 07/18/2024 Reviewed by: Bernadette Lora LPN - Fully Assessed Reason for Visit: Pre-Op Exam [87] Prescriptions as of 08/09/2024 - GUAIFENESIN ORAL Take 10 mL by mouth every 4 hours as needed. - rosuvastatin (CRESTOR) 10 mg tablet Take 1 tablet by mouth daily at bedtime. - furosemide (LASIX) 40 mg tablet Take 1 tablet by mouth once daily as needed. - albuterol HFA (PROVENTIL HFA, VENTOLIN HFA) 90 mcg/actuation inhaler Inhale 2 Puffs as instructed every 6 hours as needed for wheezing/shortness of breath. - empagliflozin (JARDIANCE) 25 mg tablet Take 1 tablet by mouth daily with breakfast. - potassium chloride ER (KLOR-CON) 20 mEq tablet Take 1 tablet by mouth once daily as needed (with furosemide). - ondansetron (ZOFRAN) 4 mg tablet Take by mouth every 8 hours as needed for nausea/vomiting. - tiZANidine HCl (ZANAFLEX) 2 mg capsule Take 1 capsule by mouth daily at bedtime. For muscle spasms. - bisacodyl (DULCOLAX) 10 mg supp 1 Suppository by RECTAL route once daily as needed for constipation. If MOM ineffective. - aluminum-magnesium hydroxide (MAG-AL) 200-200 mg/5 mL suspension Take 30 mL by mouth every 4 hours as needed (GI distress). - simethicone, chewable (MYLICON) 80 mg chewable tablet Take 1 tablet by mouth four times a day as needed (gas, bloating). - gabapentin (NEURONTIN) 300 mg capsule Take 2 capsules by mouth three times a day AND 3 capsules daily at bedtime. Do all this for 90 days. Patient should start on May 02, 2024. - tamsulosin (FLOMAX) 0.4 mg Take 1 capsule by mouth once daily. - GLIPIZIDE ORAL Take 2.5 mg by mouth once daily. - ipratropium-albuterol (DUONEB) 0.5 mg-3 mg(2.5 mg base)/3 mL nebu Inhale 3 mL as instructed every 6 hours as needed for wheezing/shortness of breath. - acetaminophen (TYLENOL) 325 mg tablet 650 mg every 4 hours. As needed for elevated temperature DO NOT EXCEED 4GM in 24 HOURS - linaclotide (LINZESS) 145 mcg capsule Take 145 mcg by mouth daily at 6 am. - magnesium oxide 400 mg magnesium tab Take 1 tablet by mouth at bedtime as needed (for leg cramps). - magnesium hydroxide (MILK OF MAGNESIA) 400 mg/5 mL suspension Take 30 mL by mouth once daily as needed. - Diaper,Brief, Adult,Disposable Size Medium, 1-2 times a day - apixaban (ELIQUIS) 5 mg tab(s) Take 1 tablet by mouth two times a day. [facility] - levomefolate (DEPLIN) 7.5 mg capsule Take 2 capsules by mouth once daily. - [facility] [employer] TRAPPER THYROID 60 mg tablet Take 1 tablet by mouth once daily. - esomeprazole (NEXIUM) 20 mg capsule Take 20 mg by mouth daily at 6 am. - metoprolol tartrate, short acting, (LOPRESSOR) 25 mg tablet Take 0.5 tablets by mouth two times a day. - montelukast (SINGULAIR) 10 mg tablet Take 1 tablet by mouth daily at bedtime. - blood sugar diagnostic (BLOOD GLUCOSE TEST) test strip Test blood sugar(s) 1 times daily. Dx: Type 2 DM - Uncontrolled E11.65 Insulin: No - dicyclomine (BENTYL) 20 mg tablet Take 1 tablet by mouth twice daily as needed. From [facility]. - Cholecalciferol, Vitamin D3, 125 mcg (5,000 unit) cap Take by mouth. - traZODone (DESYREL) 150 mg tablet Take 2 tablets by mouth daily at bedtime. [facility]. - nitroglycerin sublingual (NITROSTAT) 0.4 mg SL tablet Dissolve 1 tablet under the tongue every 5 minutes as needed. - Lancets lancets Test blood sugar(s) 100 times daily. Dx: Type 2 DM - Uncontrolled E11.65 Insulin: No - diphenhydrAMINE (BENADRYL) 25 mg capsule Take 25 mg by mouth every 4 hours as needed. - multivitamin/iron/folic acid (CENTRUM WOMEN ORAL) (more content not included)... Normal [facility] Echo Complete W/ Contraston 07-23-2024 Echo Complete W/ Contrast Normal [facility] 25(OH)D3 SerPl-mCncon 2024 25-hydroxyvitamin D3 [Mass/Vol] 112.0 ng/mL High 31.0-80.0 [facility] Comment on above: Order Comment: Speci men Type: BLOOD SPECIMEN Ordering Facility: [facility] Address: [address] [place] [address] Result Comment: Clas sification of 25 [place] Vitamin D status: Deficiency/Insufficiency: < or = 30 ng/ml. Sufficiency/Optimal Levels: 31-80 ng/mL Toxicity: > 100 ng/mL. Test performed by chemiluminescent immunoassay. Performed By: #### 5 [id number] #### [facility] CLIA [id number] [address] [place] [address] OF [facility] CNOVon 07-18-2024 CNOV Office Visit (INTMWS ) EMBER MALDONADO ([id number]) 1950 F Date Time Provider Department 07/18/24 9:00 AM DAJUAN ERIC INTMWS During your visit today, we recorded the following information about you: Temperature Pulse Blood pressure Weight 97.6 degrees 53/minute 92/58 68.3 kg Dajuan Eric MD 07/18/2024 10:55 AM Signed This note was created using NoteWriter. Subjective Ember Maldonado is a 74 year old female. She was scheduled for an echocardiogram and A1C. She was scheduled to see cardiology ([facility]) and Dr. Parker (spine surgery). There was discussion about possible cervical spine surgery. She complained of ongoing sinus pain, yellow drainage, nosebleeds, and sneezing since June and requested another course of antibiotic similar to March. She declined referral to ENT. She gave a history of vitamin D deficiency, not checked recently. She has osteopenia. Review of Systems Constitutional: Negative for chills and fever. HENT: Negative for sore throat. Respiratory: Negative for cough and shortness of breath. Cardiovascular: Negative for chest pain, palpitations and leg swelling. Gastrointestinal: Negative. Musculoskeletal: Positive for neck pain. ACTIVE PROBLEM LIST Type 2 Diabetes Mellitus With Diabetic Neuropathy, Without Long-Term Current Use of Insulin ([facility]) Lumbar Radiculopathy Cervical Radiculopathy Dizziness, Nonspecific Falls Frequently Hypothyroidism Paf (Paroxysmal Atrial Fibrillation) ([facility]) Mixed Hyperlipidemia Chronic Diastolic Chf (Congestive Heart Failure) ([facility]) Mild Intermittent Asthma Without Complication Anxiety and Depression Alternating Constipation and Diarrhea Cognitive Decline Mixed Incontinence Osteopenia Social History Tobacco Use Smoking status: Former Current packs/day: 0.00 Average packs/day: 2.0 packs/day for 12.0 years (24.1 ttl pk-yrs) Types: Cigarettes Start date: 1977 Quit date: 12/10/1988 Years since quittin.6 Smokeless tobacco: Never Tobacco comments: from age 27 Substance Use Topics Alcohol use: Not Currently Comment: none since 1995 Drug use: Not Currently Types: Marijuana Comment: none since 1969 Current Outpatient Medications Medication Sig GUAIFENESIN ORAL Take 10 mL by mouth every 4 hours as needed. empagliflozin (JARDIANCE) 25 mg tablet Take 1 tablet by mouth daily with breakfast. potassium chloride ER (KLOR-CON) 20 mEq tablet Take 1 tablet by mouth once daily as needed (with furosemide). ondansetron (ZOFRAN) 4 mg tablet Take by mouth every 8 hours as needed for nausea/vomiting. tiZANidine HCl (ZANAFLEX) 2 mg capsule Take 1 capsule by mouth daily at bedtime. For muscle spasms. bisacodyl (DULCOLAX) 10 mg supp 1 Suppository by RECTAL route once daily as needed for constipation. If MOM ineffective. aluminum-magnesium hydroxide (MAG-AL) 200-200 mg/5 mL suspension Take 30 mL by mouth every 4 hours as needed (GI distress). simethicone, chewable (MYLICON) 80 mg chewable tablet Take 1 tablet by mouth four times a day as needed (gas, bloating). gabapentin (NEURONTIN) 300 mg capsule Take 2 capsules by mouth three times a day AND 3 capsules daily at bedtime. Do all this for 90 days. Patient should start on May 02, 2024. tamsulosin (FLOMAX) 0.4 mg Take 1 capsule by mouth once daily. GLIPIZIDE ORAL Take 2.5 mg by mouth once daily. ipratropium-albuterol (DUONEB) 0.5 mg-3 mg(2.5 mg base)/3 mL nebu Inhale 3 mL as instructed every 6 hours as needed for wheezing/shortness of breath. albuterol HFA (PROVENTIL HFA, VENTOLIN HFA) 90 mcg/actuation inhaler Inhale 2 Puffs as instructed every 6 hours as needed for wheezing/shortness of breath. acetaminophen (TYLENOL) 325 mg tablet 650 mg every 4 hours. As needed for elevated temperature DO NOT EXCEED 4GM in 24 HOURS linaclotide (LINZESS) 145 mcg capsule Take 145 mcg by mouth daily at 6 am. magnesium oxide 400 mg magnesium tab Take 1 tablet by mouth at bedtime as needed (for leg cramps). magnesium hydroxide (MILK OF MAGNESIA) 400 mg/5 mL suspension Take 30 mL by mouth once daily as needed. Diaper,Brief, Adult,Disposable Size Medium, 1-2 times a day furosemide (LASIX) 40 mg tablet Take 1 tablet by mouth once daily as needed. apixaban (ELIQUIS) 5 mg tab(s) Take 1 tablet by mouth two times a day. [facility] levomefolate (DEPLIN) 7.5 mg capsule Take 2 capsules by mouth once daily. rosuvastatin (CRESTOR) 10 mg tablet Take 1 tablet by mouth daily at bedtime. PREDATOR CONTROL TRAPPER THYROID 60 mg tablet Take 1 tablet by mouth once daily. esomeprazole (NEXIUM) 20 mg capsule Take 20 mg by mouth daily at 6 am. metoprolol tartrate, short acting, (LOPRESSOR) 25 mg tablet Take 0.5 tablets by mouth two times a day. montelukast (SINGULAIR) 10 mg tablet Take 1 tablet by mouth daily at bedtime. blood sugar diagnostic (BLOOD GLUCOSE TEST) test strip Test blood sugar(s) (more content not included)... Normal [facility] HbA1c (Bld)on 07-18-2024 Average glucose Estimated from glycated hemoglobin (Bld) [Mass/Vol] 146 mg/dL Normal [facility] Comment on above: Order Comment: Jorge Luis coreas Type: BLOOD SPECIMEN Ordering Facility: [facility] Address: [address] [place] [address] Result Comment: eAG: (Estimated average glucose) is a calculated value from HgbA1c and is manufacturers service representative of the average blood glucose level in the last 2-3 month period. Performed By: #### 5 5454-3 #### [facility] CLIA [id number] [address] [place] [address] [place] HbA1c (Bld) [Mass fraction] 6.7 % High 4.3-5.6 [facility] Comment on above: Order Comment: Jorge Luis coreas Type: BLOOD SPECIMEN Ordering Facility: [facility] Address: [address] [place] [address] Result Comment: Ramandeep ican Diabetes Association guidelines indicate that patients with HgbA1c in the range 5.7-6.4% are at increased risk for development of diabetes, and intervention by lifestyle modification may be beneficial. HgbA1c greater or equal to 6.5% is considered diagnostic of diabetes. Performed By: #### 5 5454-3 #### [facility] CLIA [id number] [address] [place] [address] [place] Paulina 07-08-2024 CNPN Telephone (INTMWS) EMBER MALDONADO ([id number]) 1950 F Date Time Provider Department 07/08/24 DAJUAN ERIC INTMWS During your visit today, we recorded the following information about you: Dana Abrams, MELANY 07/08/2024 4:20 PM Signed Paula with [facility] called in to see what Pts most recent A1C was and I let her know on 01/16/24 it was 6.6. She was asking if provider had an upcoming appointment with Pt, and I told her she has a 6 month f/u on 07/18/24. She was asking if provider would be able to put in an A1C for Pt or if they could send orders over for it. Provider over there wants a more recent one for upcoming surgery. Please add any other labs provider would like done. Please call Pt once labs are ordered. Dana Abrams RN 07/09/2024 9:16 AM Signed Called Pt and no answer. Pt did not have voicemail set up. Will need to call back and let Pt know that A1C was ordered. MLEANY Mayes Helen E, LPN 07/09/2024 1:56 PM Signed Patient notified, she is wanting A1C order to be faxed to [facility], Patient is in Assisted Living. Order printed/faxed. Bernadette Lora LPN Allergies As of Date: 07/08/2024 Noted Allergy Reaction SULFA (SULFONAMIDE ANTIBIOTICS) 04/21/2021 10 - Anaphylaxis COMPAZINE (PROCHLORPERAZINE) 09/23/2022 1 - Mental Status Change LYRICA (PREGABALIN) 12/26/2022 1 - Mental Status Change METFORMIN 09/22/2023 8 - GI Upset Comments: Severe stomach pain MOSQUITOS 05/25/2023 10 - Anaphylaxis TORADOL (KETOROLAC) 12/26/2022 14 - Other: See Comments Comments: Causes pain Date Reviewed: 04/09/2024 Reviewed by: Bernadette Lora LPN - Fully Assessed Reason for Visit: Results [95] Primary Visit Diagnosis:Type 2 diabetes mellitus with diabetic neuropathy, without long-term current use of insulin (HCC) [E11.40] Order(s):HEMOGLOBIN A1C [DZGTH8V] Order #: [id number] FUTURE Prescriptions as of 07/09/2024 - empagliflozin (JARDIANCE) 25 mg tablet Take 1 tablet by mouth daily with breakfast. - potassium chloride ER (KLOR-CON) 20 mEq tablet Take 1 tablet by mouth once daily as needed (with furosemide). - meloxicam (MOBIC) 7.5 mg tablet Take 1 tablet by mouth daily at bedtime. For pain. - ondansetron (ZOFRAN) 4 mg tablet Take by mouth every 8 hours as needed for nausea/vomiting. - tiZANidine HCl (ZANAFLEX) 2 mg capsule Take 1 capsule by mouth daily at bedtime. For muscle spasms. - bisacodyl (DULCOLAX) 10 mg supp 1 Suppository by RECTAL route once daily as needed for constipation. If MOM ineffective. - aluminum-magnesium hydroxide (MAG-AL) 200-200 mg/5 mL suspension Take 30 mL by mouth every 4 hours as needed (GI distress). - simethicone, chewable (MYLICON) 80 mg chewable tablet Take 1 tablet by mouth four times a day as needed (gas, bloating). - gabapentin (NEURONTIN) 300 mg capsule Take 2 capsules by mouth three times a day AND 3 capsules daily at bedtime. Do all this for 90 days. Patient should start on May 02, 2024. - tamsulosin (FLOMAX) 0.4 mg Take 1 capsule by mouth once daily. - GLIPIZIDE ORAL Take 2.5 mg by mouth once daily. - ipratropium-albuterol (DUONEB) 0.5 mg-3 mg(2.5 mg base)/3 mL nebu Inhale 3 mL as instructed every 6 hours as needed for wheezing/shortness of breath. - albuterol HFA (PROVENTIL HFA, VENTOLIN HFA) 90 mcg/actuation inhaler Inhale 2 Puffs as instructed every 6 hours as needed for wheezing/shortness of breath. - acetaminophen (TYLENOL) 325 mg tablet 650 mg every 4 hours. As needed for elevated temperature DO NOT EXCEED 4GM in 24 HOURS - linaclotide (LINZESS) 145 mcg capsule Take 145 mcg by mouth daily at 6 am. - magnesium oxide 400 mg magnesium tab Take 1 tablet by mouth at bedtime as needed (for leg cramps). - magnesium hydroxide (MILK OF MAGNESIA) 400 mg/5 mL suspension Take 30 mL by mouth once daily as needed. - Diaper,Brief, Adult,Disposable Size Medium, 1-2 times a day - furosemide (LASIX) 40 mg tablet Take 1 tablet by mouth once daily as needed. - apixaban (ELIQUIS) 5 mg tab(s) Take 1 tablet by mouth two times a day. [facility] - levomefolate (DEPLIN) 7.5 mg capsule Take 2 capsules by mouth once daily. - rosuvastatin (CRESTOR) 10 mg tablet Take 1 tablet by mouth daily at bedtime. - PREDATOR CONTROL TRAPPER THYROID 60 mg tablet Take 1 tablet by mouth once daily. - esomeprazole (NEXIUM) 20 mg capsule Take 20 mg by mouth daily at 6 am. - metoprolol tartrate, short acting, (LOPRESSOR) 25 mg tablet Take 0.5 tablets by mouth two times a day. - montelukast (SINGULAIR) 10 mg tablet Take 1 tablet by mouth daily at bedtime. - blood sugar diagnostic (BLOOD GLUCOSE TEST) test strip Test blood sugar(s) 1 times daily. Dx: Type 2 DM - Uncontrolled E11.65 Insulin: No - dicyclomine (BENTYL) 20 mg tablet Take 1 tablet by mouth twice daily as needed. From [facility]. - Cholecalciferol, Vitamin D3, 125 mcg (5,0 (more content not included)... Normal [facility] Cerv Spine 4 or 5 Viewson Cerv Spine 4 or 5 Views Normal [facility] Orthopedic Visit Reporton Orthopedic Visit Report Normal [facility] Gastroenterology Visit Repor ton 06-25-2024 Gastroenterology Visit Report Normal [facility] 12 Lead EKG performed by [facility] [place] 06-04-2024 12 Lead EKG performed by [facility] Absolute neutrophil countOrd ered By: Anthony Juarez on 06-04-2024 Neutrophils (Bld) [#/Vol] 7.8 10*3/uL High 2.0-7.7 [facility] BNP (brain natriuretic pepti de measurement)Ordered By: Anthony Juarez on 06-04-2024 Natriuretic peptide B (Bld) [Mass/Vol] 76.4 pg/mL 0-100 [facility] BNP,B-Type NATRIURETIC PEPTI Anay 06-04-2024 Natriuretic peptide B (Bld) [Mass/Vol] 76.4 pg/mL Normal 0-100 [facility] Comment on above: Performed By: #### L 500.2500, L501.9520, L100.0100, L503.6620 ####[facility] [address] [place], [address] Basic Metabolic Profile (BMP )on 06-04-2024 BUN/CRE 29.9 RATIO High 10-20 [facility] Comment on above: Performed By: #### L 500.2500, L501.9520, L100.0100, L503.6620 ####[facility] [address] [place], [address] CA,Total 9.3 mg/dL Normal 8.5-10.1 [facility] Comment on above: Performed By: #### L 500.2500, L501.9520, L100.0100, L503.6620 ####[facility] [address] [place], [address] Chloride [Moles/Vol] 106 mmol/L Normal 98-107 [facility] Comment on above: Performed By: #### L 500.2500, L501.9520, L100.0100, L503.6620 ####[facility] [address] [place], [address] CO2 [Moles/Vol] 33.0 mmol/L High 21.0-32.0 [facility] Comment on above: Performed By: #### L 500.2500, L501.9520, L100.0100, L503.6620 ####[facility] [address] [place], [address] Creatinine [Mass/Vol] 0.87 mg/dL Normal 0.55-1.02 [facility] Comment on above: Result Comment: The validity of the calculated GFR GFRAA in patients over70 years has not been determined. Clinical correlation isessential. Performed By: #### L 500.2500, L501.9520, L100.0100, L503.6620 ####[facility] [address] [place], [address] EST GFR - AA 82 mL/min Normal >60 [facility] Comment on above: Result Comment: Afri can [place] GFR Calc Performed By: #### L 500.2500, L501.9520, L100.0100, L503.6620 ####[facility] [address] [place], [address] GAP 1 Low 5-15 [facility] Comment on above: Performed By: #### L 500.2500, L501.9520, L100.0100, L503.6620 ####[facility] [address] [place], [address] GFR/1.73 sq M.predicted among non-blacks MDRD (S/P/Bld) [Vol rate/Area] 68 mL/min/{1.73_m2} Normal >60 [facility] Comment on above: Result Comment: Non- GFR Calc Performed By: #### L 500.2500, L501.9520, L100.0100, L503.6620 ####[facility] [address] [place], [address] Glucose [Mass/Vol] 123 mg/dL High 74-106 [facility] Comment on above: Result Comment: Fast ing Glucose result from 100 to 125 mg/dLsuggests IMPAIRED HOMEOSTASIS per A.D.A. criteria. Performed By: #### L 500.2500, L501.9520, L100.0100, L503.6620 ####[facility] [address] [place], [address] Potassium [Moles/Vol] 4.4 mmol/L Normal 3.5-5.1 [facility] Comment on above: Performed By: #### L 500.2500, L501.9520, L100.0100, L503.6620 ####[facility] [address] [place], [address] Sodium [Moles/Vol] 140 mmol/L Normal 136-145 [facility] Comment on above: Performed By: #### L 500.2500, L501.9520, L100.0100, L503.6620 ####[facility] [address] [place], [address] Urea nitrogen [Mass/Vol] 26 mg/dL High - [facility] Comment on above: Performed By: #### L 500.2500, L501.9520, L100.0100, L503.6620 ####[facility] [address] [place], [address] Basophil percentageOrdered B y: Anthony Juarez on 06-04-2024 Basophils/100 WBC (Bld) 0.6 % 0-1 [facility] Blood urea nitrogen (BUN)/cr eatinine ratioOrdered By: Anthony Juarez on 06-04-2024 Urea nitrogen/Creatinine [Mass ratio] 29.9 mg/mg High - [facility] CBC W/Diff, Automatedon 05-13 Absolute Lymph 1.73 X10 3/uL Normal 0.83-4.51 [facility] Comment on above: Performed By: #### L 500.2500, L501.9520, L100.0100, L503.6620 ####[facility] [address] [place], [address] Absolute Neut 7.8 X10 3/uL High 2.0-7.7 [facility] Comment on above: Performed By: #### L 500.2500, L501.9520, L100.0100, L503.6620 ####[facility] [address] [place], [address] Basophils/100 WBC (Bld) 0.6 % Normal 0-1 [facility] Comment on above: Performed By: #### L 500.2500, L501.9520, L100.0100, L503.6620 ####[facility] [address] [place], [address] Eosinophils/100 WBC (Bld) 0.5 % Normal 0-5 [facility] Comment on above: Performed By: #### L 500.2500, L501.9520, L100.0100, L503.6620 ####[facility] [address] [place], [address] Erythrocyte distribution width (RBC) [Ratio] 12.5 % Normal 11.6-14.6 [facility] Comment on above: Performed By: #### L 500.2500, L501.9520, L100.0100, L503.6620 ####[facility] [address] [place], [address] Hematocrit (Bld) [Volume fraction] 42.6 % Normal 37-47 [facility] Comment on above: Performed By: #### L 500.2500, L501.9520, L100.0100, L503.6620 ####[facility] [address] [place], [address] Hemoglobin (Bld) [Mass/Vol] 13.3 g/dL Normal 12.0-15.0 [facility] Comment on above: Performed By: #### L 500.2500, L501.9520, L100.0100, L503.6620 ####[facility] [address] [place], [address] IG% 0.300 Normal 0.0-0.9 [facility] Comment on above: Result Comment: IG% - Immature Granulocytes (promyelocytes, myelocytes andmetamyelocytes) > 1% indicates that a LEFT SHIFT is Present. Performed By: #### L 500.2500, L501.9520, L100.0100, L503.6620 ####[facility] [address] [place], [address] Lymphocytes/100 WBC (Bld) 15.9 % Low 19-41 [facility] Comment on above: Performed By: #### L 500.2500, L501.9520, L100.0100, L503.6620 ####[facility] [address] [place], [address] MCH (RBC) [Entitic mass] 29.2 pg Normal 27.0-32.0 [facility] Comment on above: Performed By: #### L 500.2500, L501.9520, L100.0100, L503.6620 ####[facility] [address] [place], [address] MCHC (RBC) [Mass/Vol] 31.2 g/dL Low 32-36 [facility] Comment on above: Performed By: #### L 500.2500, L501.9520, L100.0100, L503.6620 ####[facility] [address] [place], [address] MCV (RBC) [Entitic vol] 93.4 fL Normal 81-99 [facility] Comment on above: Performed By: #### L 500.2500, L501.9520, L100.0100, L503.6620 ####[facility] [address] [place], [address] Monocytes/100 WBC (Bld) 11.3 % High 0-10 [facility] Comment on above: Performed By: #### L 500.2500, L501.9520, L100.0100, L503.6620 ####[facility] [address] [place], [address] Neutrophils/100 WBC (Bld) 71.4 % High 47-70 [facility] Comment on above: Performed By: #### L 500.2500, L501.9520, L100.0100, L503.6620 ####[facility] [address] [place], [address] Nucleated RBC (Bld) [#/Vol] 0 10*3/uL Normal 0-5 [facility] Comment on above: Performed By: #### L 500.2500, L501.9520, L100.0100, L503.6620 ####[facility] [address] [place], [address] Platelet mean volume (Bld) [Entitic vol] 9.3 fL Normal 6.2-12.0 [facility] Comment on above: Performed By: #### L 500.2500, L501.9520, L100.0100, L503.6620 ####[facility] [address] [place], [address] Platelets (Bld) [#/Vol] 257 10*3/uL Normal 150-450 [facility] Comment on above: Performed By: #### L 500.2500, L501.9520, L100.0100, L503.6620 ####[facility] [address] [place], [address] RBC (Bld) [#/Vol] 4.56 10*6/uL Normal 4.2-5.4 [facility] Comment on above: Performed By: #### L 500.2500, L501.9520, L100.0100, L503.6620 ####[facility] [address] [place], [address] RDW SD 42.9 fl Normal 35.1-43.9 [facility] Comment on above: Performed By: #### L 500.2500, L501.9520, L100.0100, L503.6620 ####[facility] [address] [place], [address] WBC (Bld) [#/Vol] 10.9 10*3/uL Normal 4.4-11.0 [facility] Comment on above: Performed By: #### L 500.2500, L501.9520, L100.0100, L503.6620 ####[facility] [address] [place], [address] Carbon dioxide measurementOr dered By: Anthony Juarez on 06-04-2024 CO2 [Moles/Vol] 33.0 mmol/L High 21.0-32.0 [facility] Cardiology Visit Reporton Cardiology Visit Report Normal [facility] Chest PA and Lateralon 06-04 Chest PA and Lateral Normal [facility] Chloride measurementOrdered By: Anthony Juarez on 06-04-2024 Chloride [Moles/Vol] 106 mmol/L 98-107 [facility] Eosinophil percentageOrdered By: Anthony Juarez on 06-04-2024 Eosinophils/100 WBC (Bld) 0.5 % 0-5 [facility] Erythrocyte distribution wid th ratioOrdered By: Anthony Juarez on 06-04-2024 Erythrocyte distribution width (RBC) [Ratio] 12.5 % 11.6-14.6 [facility] Erythrocyte distribution wid th standard deviationOrdered By: Anthony Juarez on 06-04-2024 Erythrocyte distribution width (RBC) [Entitic vol] 42.9 fL 35.1-43.9 [facility] Estimated glomerular filtrat ion rate (GFR) AmericanOrdered By: Anthony Juarez on 06-04-2024 Estimated GFR (MDRD) Amer 82 mL/min >60 [facility] Comment on above: GFR Calc Glomerular filtration rate ( GFR) estimationOrdered By: Anthony Juarez on 06-04-2024 Estimated GFR (MDRD) Non-Af Amer 68 mL/min >60 [facility] Comment on above: Non- GFR Calc Glucose measurementOrdered B y: Anthony Juarez on 06-04-2024 Glucose [Mass/Vol] 123 mg/dL High 74-106 [facility] Comment on above: Fasting Glucose resu lt from 100 to 125 mg/dL suggests IMPAIRED HOMEOSTASIS per A.D.A. criteria. Hematocrit Auto (Bld) [Volum e fraction]Ordered By: Anthony Juarez on 06-04-2024 Hematocrit (Bld) [Volume fraction] 42.6 % 37-47 [facility] Hemoglobin measurementOrdere d By: Anthony Juarez on 06-04-2024 Hemoglobin (Bld) [Mass/Vol] 13.3 g/dL 12.0-15.0 [facility] Immature granulocytes/100 WB C Auto (Bld)Ordered By: Anthony Juarez on 06-04-2024 Immature granulocytes/100 WBC (Bld) 0.300 % 0.0-0.9 [facility] Comment on above: IG% - Immature Granu locytes (promyelocytes, myelocytes and metamyelocytes) > 1% indicates that a LEFT SHIFT is Present. Lymphocytes Auto (Unsp spec) [#/Vol]Ordered By: Anthony Juarez on 06-04-2024 Lymphocytes (Bld) [#/Vol] 1.73 10*3/uL 0.83-4.51 [facility] Lymphocytes/100 WBC Auto (Un sp spec)Ordered By: Anthony Juarez on 06-04-2024 Lymphocytes/100 WBC (Bld) 15.9 % Low 19-41 [facility] MCV (mean corpuscular volume ) determinationOrdered By: Anthony Juarez on 06-04-2024 MCV (RBC) [Entitic vol] 93.4 fL 81-99 [facility] Mean corpuscular hemoglobin (MCH) determinationOrdered By: Anthony Juarez on 06-04-2024 MCH (RBC) [Entitic mass] 29.2 pg 27.0-32.0 [facility] Mean corpuscular hemoglobin concentration (MCHC) determinationOrdered By: Anthony Juarez on 06-04-2024 MCHC (RBC) [Mass/Vol] 31.2 g/dL Low 32-36 [facility] Mean platelet volume determi nationOrdered By: Anthony Juarez on 06-04-2024 Platelet mean volume (Bld) [Entitic vol] 9.3 fL 6.2-12.0 [facility] Monocyte percentageOrdered B y: Anthony Juarez on 06-04-2024 Monocytes/100 WBC (Bld) 11.3 % High 0-10 [facility] Neutrophil percentageOrdered By: Anthony Juarez on 06-04-2024 Neutrophils/100 WBC (Bld) 71.4 % High 47-70 [facility] Nucleated red blood cell per centageOrdered By: Anthony Juarez on 06-04-2024 Nucleated RBC/100 WBC (Bld) [Ratio] 0 % 0-5 [facility] Platelet countOrdered By: Joanne Juarez on 06-04-2024 Platelets (Bld) [#/Vol] 257 10*3/uL 150-450 [facility] Potassium measurementOrdered By: Anthony Juarez on 06-04-2024 Potassium [Moles/Vol] 4.4 mmol/L 3.5-5.1 [facility] RBC Auto (Bld) [#/Vol]Ordere d By: Anthony Juarez on 06-04-2024 RBC (Bld) [#/Vol] 4.56 10*6/uL 4.2-5.4 [facility] Serum anion gap measurementO rdered By: Anthony Juarez on 06-04-2024 Anion gap [Moles/Vol] 1 mmol/L Low 5-15 [facility] Serum or plasma calcium garrett urement (mass/volume)Ordered By: Anthony Juarez on 06-04-2024 Calcium [Mass/Vol] 9.3 mg/dL 8.5-10.1 [facility] Serum or plasma creatinine m easurement (mass/volume)Ordered By: Anthony Juarez on 06-04-2024 Creatinine [Mass/Vol] 0.87 mg/dL 0.55-1.02 [facility] Comment on above: The validity of the calculated GFR & GFRAA in patients over 70 years has not been determined. Clinical correlation is essential. Serum or plasma urea nitroge n measurement (mass/volume)Ordered By: Anthony Juarez on 06-04-2024 Urea nitrogen [Mass/Vol] 26 mg/dL High 7-18 [facility] Sodium levelOrdered By: Anthony Juarez on 06-04-2024 Sodium [Moles/Vol] 140 mmol/L 136-145 [facility] TSH QnOrdered By: Anthony Juarez on 06-04-2024 Thyroid Stimulating Hormone (TSH) 1.460 uIU/mL 0.358-3.740 [facility] Thyroid Stim Hormone (TSH)on 06-04-2024 TSH 1.460 uIU/mL Normal 0.358-3.740 [facility] Comment on above: Performed By: #### L 500.2500, L501.9520, L100.0100, L503.6620 ####[facility] [id number] [place], [place], [id number] White blood cell (WBC) count Ordered By: Anthony Juarez on 06-04-2024 WBC (Bld) [#/Vol] 10.9 10*3/uL 4.4-11.0 [facility] 05-29-2024 CNPN Telephone (INTMWS) EMBER MALDONADO ([id number]) 1950 F Date Time Provider Department 05/29/24 DAJUAN ERIC INTMWS During your visit today, we recorded the following information about you: Mary Jo Gonzalez RN 05/29/2024 12:51 PM Signed Patient calls to ask if provider's office has received order request for simethicone that was faxed from [facility] for gas and bloating. She reports they are not able to provide her with medication without the order from provider and she is in need. Patient has been taking medication as needed for years. MELANY Loomis Elizabeth, MA 05/29/2024 1:15 PM Signed Please see patient message no does not appear recent order received and do not see medication ever prescribed by pcp. Please send rx and have staff print TE and will fax to [phone]. HALEY Klein Victor H, MD 05/29/2024 6:03 PM Signed Ordered via fax. Allergies As of Date: 05/29/2024 Noted Allergy Reaction SULFA (SULFONAMIDE ANTIBIOTICS) 04/21/2021 10 - Anaphylaxis COMPAZINE (PROCHLORPERAZINE) 09/23/2022 1 - Mental Status Change LYRICA (PREGABALIN) 12/26/2022 1 - Mental Status Change METFORMIN 09/22/2023 8 - GI Upset Comments: Severe stomach pain MOSQUITOS 05/25/2023 10 - Anaphylaxis TORADOL (KETOROLAC) 12/26/2022 14 - Other: See Comments Comments: Causes pain Date Reviewed: 04/09/2024 Reviewed by: Bernadette Lora LPN - Fully Assessed Reason for Visit: Orders [681] Primary Visit Diagnosis:Type 2 diabetes mellitus with diabetic neuropathy, without long-term current use of insulin (HCC) [E11.40] Order(s):empagliflozin (JARDIANCE) 25 mg tabletTake 1 tablet by mouth daily with breakfast.Disp: Rfl: simethicone, chewable (MYLICON) 80 mg chewable tabletTake 1 tablet by mouth four times a day as needed (gas, bloating).Disp: Rfl: Prescriptions as of 05/29/2024 - empagliflozin (JARDIANCE) 25 mg tablet Take 1 tablet by mouth daily with breakfast. - potassium chloride ER (KLOR-CON) 20 mEq tablet Take 1 tablet by mouth once daily as needed (with furosemide). - meloxicam (MOBIC) 7.5 mg tablet Take 1 tablet by mouth daily at bedtime. For pain. - ondansetron (ZOFRAN) 4 mg tablet Take by mouth every 8 hours as needed for nausea/vomiting. - tiZANidine HCl (ZANAFLEX) 2 mg capsule Take 1 capsule by mouth daily at bedtime. For muscle spasms. - bisacodyl (DULCOLAX) 10 mg supp 1 Suppository by RECTAL route once daily as needed for constipation. If MOM ineffective. - aluminum-magnesium hydroxide (MAG-AL) 200-200 mg/5 mL suspension Take 30 mL by mouth every 4 hours as needed (GI distress). - simethicone, chewable (MYLICON) 80 mg chewable tablet Take 1 tablet by mouth four times a day as needed (gas, bloating). - gabapentin (NEURONTIN) 300 mg capsule Take 2 capsules by mouth three times a day AND 3 capsules daily at bedtime. Do all this for 90 days. Patient should start on May 02, 2024. - tamsulosin (FLOMAX) 0.4 mg Take 1 capsule by mouth once daily. - GLIPIZIDE ORAL Take 2.5 mg by mouth once daily. - ipratropium-albuterol (DUONEB) 0.5 mg-3 mg(2.5 mg base)/3 mL nebu Inhale 3 mL as instructed every 6 hours as needed for wheezing/shortness of breath. - albuterol HFA (PROVENTIL HFA, VENTOLIN HFA) 90 mcg/actuation inhaler Inhale 2 Puffs as instructed every 6 hours as needed for wheezing/shortness of breath. - acetaminophen (TYLENOL) 325 mg tablet 650 mg every 4 hours. As needed for elevated temperature DO NOT EXCEED 4GM in 24 HOURS - linaclotide (LINZESS) 145 mcg capsule Take 145 mcg by mouth daily at 6 am. - magnesium oxide 400 mg magnesium tab Take 1 tablet by mouth at bedtime as needed (for leg cramps). - magnesium hydroxide (MILK OF MAGNESIA) 400 mg/5 mL suspension Take 30 mL by mouth once daily as needed. - Diaper,Brief, Adult,Disposable Size Medium, 1-2 times a day - furosemide (LASIX) 40 mg tablet Take 1 tablet by mouth once daily as needed. - apixaban (ELIQUIS) 5 mg tab(s) Take 1 tablet by mouth two times a day. [facility] - levomefolate (DEPLIN) 7.5 mg capsule Take 2 capsules by mouth once daily. - rosuvastatin (CRESTOR) 10 mg tablet Take 1 tablet by mouth daily at bedtime. - PREDATOR CONTROL TRAPPER THYROID 60 mg tablet Take 1 tablet by mouth once daily. - esomeprazole (NEXIUM) 20 mg capsule Take 20 mg by mouth daily at 6 am. - metoprolol tartrate, short acting, (LOPRESSOR) 25 mg tablet Take 0.5 tablets by mouth two times a day. - montelukast (SINGULAIR) 10 mg tablet Take 1 tablet by mouth daily at bedtime. - blood sugar diagnostic (BLOOD GLUCOSE TEST) test strip Test blood sugar(s) 1 times daily. Dx: Type 2 DM - Uncontrolled E11.65 Insulin: No - dicyclomine (BENTYL) 20 mg tablet Take 1 tablet by mouth twice daily as needed. From [facility]. - Cholecalciferol, Vitamin D3, 125 mcg (5,000 unit) cap Take by mouth (more content not included)... Normal [facility] Urine Cultureon 05-16-2024 URC Normal [facility] Comment on above: Performed By: #### L 400.0001, M100.2200 ####[facility] [address] [place], [place], [id number] Urinalysis, Completeon 05-14 WBC 5-10 SEEN Normal 0-5 [facility] Comment on above: Order Comment: CLEAN CATCH Performed By: #### L 400.0001, M100.2200 ####[facility] [address] [place], [address] BACTERIA 0 SEEN Normal None Seen [facility] Comment on above: Order Comment: CLEAN CATCH Performed By: #### L 400.0001, M100.2200 ####[facility] [address] [place], [address] EPI,SQUAMOUS 0 SEEN Normal 5-10 [facility] Comment on above: Order Comment: CLEAN CATCH Performed By: #### L 400.0001, M100.2200 ####[facility] [address] [place], [address] Mucus Ql (Urine sed) 0 SEEN Normal [facility] Comment on above: Order Comment: CLEAN CATCH Performed By: #### L 400.0001, M100.2200 ####[facility] [address] [place], [address] RBC 0 SEEN Normal 0-5 [facility] Comment on above: Order Comment: CLEAN CATCH Performed By: #### L 400.0001, M100.2200 ####[facility] [address] [place], [address] Bilirubin Test strip Ql (U)O rdered By: Dajuan Eric on 05-13-2024 Bilirubin Ql (U) Negative Negative [facility] Epithelial cells.squamous LM Ql (Urine sed)Ordered By: Dajuan Eric on 05-13-2024 Epithelial cells.squamous LM.HPF (Urine sed) [#/Area] 0 /[HPF] 5-10 [facility] Glucose Ql (U)Ordered By: Michelle Eric on 05-13-2024 Glucose (U) [Mass/Vol] 1000 mg/dL High Normal [facility] Ketones Test strip Ql (U)Ord ered By: Dajuan Eric on 05-13-2024 Ketones Ql (U) Negative Negative [facility] Microscopic analysis of urin e for red blood cells (RBC)Ordered By: Dajuan Eric on 05-13-2024 Urine RBC 0 SEEN /hpf 0-5 [facility] Mucus LM Ql (Urine sed)Order ed By: Dajuan Eric on 05-13-2024 Mucus Ql (Urine sed) 0 SEEN /hpf [facility] Nitrite Test strip Ql (U)Ord ered By: Dajuan Eric on 05-13-2024 Nitrite Ql (U) Negative Negative [facility] Protein Test strip Ql (U)Ord ered By: Dajuan Eric on 05-13-2024 Protein Ql (U) 15 mg/dl High Negative [facility] Urine blood detectionOrdered By: Dajuan Eric on 05-13-2024 Urine Occult Blood Negative Negative [facility] Urine clarityOrdered By: Cesar Eric on 05-13-2024 Clarity (U) Sl. Cloudy Clear [facility] Urine color determinationOrd ered By: Dajuan Eric on 05-13-2024 Color (U) Yellow Yellow [facility] Urine cultureOrdered By: Cesar Eric on 05-13-2024 Bacteria identified Cx Nom (U) Presumptive E. coli Abnormal [facility] Urine leukocyte esterase det ection by dipstickOrdered By: Dajuan Eric on 05-13-2024 Leukocyte esterase Test strip Ql (U) 25 /ul High Negative [facility] Urine pHOrdered By: Dajuan jasmine on 05-13-2024 pH (U) 6.5 [pH] 5.0 - 8.0 [facility] Urine sediment bacteria coun t by microscopy (number/high power field)Ordered By: Dajuan Eric on 05-13-2024 Bacteria LM.HPF (Urine sed) [#/Area] 0 /[HPF] None Seen [facility] Urine specific gravity measu rementOrdered By: Dajuan Eric on 05-13-2024 Specific gravity (U) [Rel density] 1.010 1.002-1.030 [facility] Urobilinogen Ql (U)Ordered B y: Dajuan Eric on 05-13-2024 Urine Urobilinogen Normal mg/dl Normal [facility] White blood cell countOrdere d By: Dajuan Eric on 05-13-2024 Urine WBC 5-10 SEEN /hpf 0-5 [facility] Spine Cervical (Routine)on 06-29-2023 Spine Cervical (Routine) Normal [facility] Gastroenterology Visit Repor ton 04-10-2024 Gastroenterology Visit Report Normal [facility] CNOVon 04-09-2024 CNOV Office Visit (INTMWS ) EMBER MALDONADO ([id number]) 1950 F Date Time Provider Department 04/09/24 11:00 AM DAJUAN ERIC INTMWS During your visit today, we recorded the following information about you: Temperature Pulse Blood pressure Weight 98.5 degrees 60/minute 126/64 70.6 kg Dajuan Eric MD 04/09/2024 12:59 PM Signed This note was created using [employer]. Subjective Ember Maldonado is a 73 year old female. She had sinus symptoms for almost one month now. She had frontal and maxillary pressure, brown nasal drainage, occasional nosebleeds, postnasal drainage related cough. She was treated at 03/27/24 with temporary improvement, but symptoms recurred shortly after doxycycline finished. Review of Systems Constitutional: Positive for fatigue. Negative for chills, diaphoresis and fever. HENT: Negative for ear pain, sore throat and trouble swallowing. Eyes: Negative for visual disturbance. Respiratory: Negative for cough, shortness of breath and wheezing. Gastrointestinal: Negative for diarrhea, nausea and vomiting. Genitourinary: Negative for difficulty urinating. Neurological: Negative for dizziness. ACTIVE PROBLEM LIST Type 2 Diabetes Mellitus With Diabetic Neuropathy, Without Long-Term Current Use of Insulin ([facility]) Lumbar Radiculopathy Cervical Radiculopathy Dizziness, Nonspecific Falls Frequently Hypothyroidism Paf (Paroxysmal Atrial Fibrillation) ([facility]) Mixed Hyperlipidemia Chronic Diastolic Chf (Congestive Heart Failure) ([facility]) Mild Intermittent Asthma Without Complication Anxiety and Depression Alternating Constipation and Diarrhea Cognitive Decline Mixed Incontinence Osteopenia Current Outpatient Medications Medication Sig GLIPIZIDE ORAL Take 2.5 mg by mouth once daily. ipratropium-albuterol (DUONEB) 0.5 mg-3 mg(2.5 mg base)/3 mL nebu Inhale 3 mL as instructed every 6 hours as needed for wheezing/shortness of breath. albuterol HFA (PROVENTIL HFA, VENTOLIN HFA) 90 mcg/actuation inhaler Inhale 2 Puffs as instructed every 6 hours as needed for wheezing/shortness of breath. acetaminophen (TYLENOL) 325 mg tablet 650 mg every 4 hours. As needed for elevated temperature DO NOT EXCEED 4GM in 24 HOURS aluminum-magnesium hydroxide-simethicone (MAALOX,MYLANTA,MAG-AL PLUS) 200-200-20 mg/5 mL suspension Take 30 mL by mouth every 4 hours as needed. linaclotide (LINZESS) 145 mcg capsule Take 145 mcg by mouth daily at 6 am. magnesium oxide 400 mg magnesium tab Take 1 tablet by mouth at bedtime as needed (for leg cramps). magnesium hydroxide (MILK OF MAGNESIA) 400 mg/5 mL suspension Take 30 mL by mouth once daily as needed. Diaper,Brief, Adult,Disposable Size Medium, 1-2 times a day furosemide (LASIX) 40 mg tablet Take 1 tablet by mouth once daily as needed. apixaban (ELIQUIS) 5 mg tab(s) Take 1 tablet by mouth two times a day. [facility] levomefolate (DEPLIN) 7.5 mg capsule Take 2 capsules by mouth once daily. potassium chloride ER (KLOR-CON) 20 mEq tablet Take 1 tablet by mouth once daily. rosuvastatin (CRESTOR) 10 mg tablet Take 1 tablet by mouth daily at bedtime. PREDATOR CONTROL TRAPPER THYROID 60 mg tablet Take 1 tablet by mouth once daily. esomeprazole (NEXIUM) 20 mg capsule Take 20 mg by mouth daily at 6 am. metoprolol tartrate, short acting, (LOPRESSOR) 25 mg tablet Take 0.5 tablets by mouth two times a day. montelukast (SINGULAIR) 10 mg tablet Take 1 tablet by mouth daily at bedtime. blood sugar diagnostic (BLOOD GLUCOSE TEST) test strip Test blood sugar(s) 1 times daily. Dx: Type 2 DM - Uncontrolled E11.65 Insulin: No dicyclomine (BENTYL) 20 mg tablet Take 1 tablet by mouth twice daily as needed. From [facility]. Cholecalciferol, Vitamin D3, 125 mcg (5,000 unit) cap Take by mouth. traZODone (DESYREL) 150 mg tablet Take 2 [...] by mouth at bedtime as needed (nausea). Dmrjwkj-Bxwehcmrkncie-Tpxui ine (EXCEDRIN MIGRAINE) 250-250-65 mg per tablet Take 1 tablet by mouth every 6 hours as needed for pain. ascorbic acid, vitamin C, (VITAMIN C) 500 mg tablet Take 1 tablet by mouth once daily. [START ON 05/02/2024] gabapentin (NEURONTIN) 300 mg capsule Take 2 capsules by mouth three times a day AND 3 capsu (more content not included)... Normal [facility] CNOVon 03-27-2024 CNOV Office Visit (UCWSTR ) EMBER MALDONADO ([id number]) 1950 F Date Time Provider Department 03/27/24 2:00 PM SCOTTY BAEZ [facility] During your visit today, we recorded the following information about you: Temperature Pulse Respiration Blood pressure 98.2 degrees 68/minute 18/minute 128/78 Weight 73.5 kg Scotty Baez APRN.CNP 03/27/2024 2:33 PM Signed Subjective HPI Nontoxic-appearing female presents urgent care chief plaint possible sinus infection. Duration of symptoms 2 weeks. Associated symptoms sinus pressure drainage. History of sinus infections this feels similar. OTC medication little to no success. Denies any fevers. Past medical history prescription medications allergies reviewed. .Patient presents with: Cough: Cough, KAT, sinus, nausea x 2 weeks PAST MEDICAL HISTORY Diagnosis Date ADD (attention deficit disorder) Alternating constipation and diarrhea 06/02/2022 Dr. Chantell Blas, [facility] Anticoagulant medication declined by patient Anxiety and depression At risk for stroke Atrial fibrillation (HCC) 08/30 Cellulitis of lower extremity 2019 Chronic fatigue syndrome Dizziness, nonspecific 09/07/2021 Falls frequently 09/07/2021 Fibromyalgia Folic acid deficiency GERD (gastroesophageal reflux disease) Hypothyroidism Insomnia Intractable back pain Mild intermittent asthma without complication 10/05/2021 Mixed incontinence 12/13/2023 Osteopenia Type 2 diabetes mellitus without complication, without long-term current use of insulin (HCC) 04/21/2021 PAST SURGICAL HISTORY Procedure Laterality Date APPENDECTOMY 1973 COLONOSCOPY SCREENING 08/2020, 08/2020 COLONOSCOPY SCREENING 08/07/2023 Dr. Blas. Recheck 5 years. No biopsy. EXTRACTION ERUPTED TOOTH/EXR 1972 HYSTERECTOMY HX 1989 Endometriosis. Adenomyosis. Total hysterectomy, BSO LAPAROSCOPIC CHOLECYSTECTOMY 1997 LIGATE FALLOPIAN TUBE Bilateral 1988 SHOULDER SURGERY HX Right 1983 right shoulder X 3. 1978,1980,1983 TONSILLECTOMY HX 1971 ALLERGIES Sulfa (Sulfonamide Antibiotics), Compazine [Prochlorperazine], Lyrica [Pregabalin], Metformin, Mosquitos, and Toradol [Ketorolac] MEDICATIONS GLIPIZIDE ORAL Take by mouth. ipratropium-albuterol (DUONEB) 0.5 mg-3 mg(2.5 mg base)/3 mL nebu Inhale 3 mL as instructed every 6 hours as needed for wheezing/shortness of breath. albuterol HFA (PROVENTIL HFA, VENTOLIN HFA) 90 mcg/actuation inhaler Inhale 2 Puffs as instructed every 6 hours as needed for wheezing/shortness of breath. acetaminophen (TYLENOL) 325 mg tablet 650 mg every 4 hours. As needed for elevated temperature DO NOT EXCEED 4GM in 24 HOURS aluminum-magnesium hydroxide-simethicone (MAALOX,MYLANTA,MAG-AL PLUS) 200-200-20 mg/5 mL suspension Take 30 mL by mouth every 4 hours as needed. linaclotide (LINZESS) 145 mcg capsule Take 145 mcg by mouth daily at 6 am. magnesium oxide 400 mg magnesium tab Take 1 tablet by mouth at bedtime as needed (for leg cramps). magnesium hydroxide (MILK OF MAGNESIA) 400 mg/5 mL suspension Take 30 mL by mouth once daily as needed. Diaper,Brief, Adult,Disposable Size Medium, 1-2 times a day furosemide (LASIX) 40 mg tablet Take 1 tablet by mouth once daily as needed. apixaban (ELIQUIS) 5 mg tab(s) Take 1 tablet by mouth two times a day. [facility] levomefolate (DEPLIN) 7.5 mg capsule Take 2 capsules by mouth once daily. potassium chloride ER (KLOR-CON) 20 mEq tablet Take 1 tablet by mouth once daily. rosuvastatin (CRESTOR) 10 mg tablet Take 1 tablet by mouth daily at bedtime. PREDATOR CONTROL TRAPPER THYROID 60 mg tablet Take 1 tablet by mouth once daily. esomeprazole (NEXIUM) 20 mg capsule Take 20 mg by mouth daily at 6 am. metoprolol tartrate, short acting, (LOPRESSOR) 25 mg tablet Take 0.5 tablets by mouth two times a day. montelukast (SINGULAIR) 10 mg tablet Take 1 tablet by mouth daily at bedtime. tamsulosin (FLOMAX) 0.4 mg Take 1 capsule by mouth once daily. blood sugar diagnostic (BLOOD GLUCOSE TEST) test strip Test blood sugar(s) 1 times daily. Dx: Type 2 DM - Uncontrolled E11.65 Insulin: No dicyclomine (BENTYL) 20 mg tablet Take 1 tablet by mouth twice daily as needed. From [facility]. Cholecalciferol, Vitamin D3, 125 mcg (5,000 unit) cap Take by mouth. traZODone (DESYREL) 150 mg tablet Take 2 [...] time a week. Per Dr. Carter HYDROcodone-acetaminophen (N (more content not included)... Normal [facility] 03-25-2024 [facility] Telephone (FAMP) EMBER MALDONADO ([id number]) 1950 F Date Time Provider Department 03/25/24 DAJUAN ERIC [facility] During your visit today, we recorded the following information about you: Camille Diane LPN 03/25/2024 11:29 AM Signed Pt. has facial pain ,headache, nasal congestion x 2 weeks. She would like antibiotic called in. Reminded her that Express care is available. Kayce Nix APRN.[facility] 03/25/2024 11:39 AM Signed Needs to be seen in office or Express [facility] Kayce Nix APRN.[facility] Clive Johnson MA 03/25/2024 11:53 AM Signed Patient notified, verbalized understanding. States she will call for a ride and go to express care. Allergies As of Date: 03/25/2024 Noted Allergy Reaction SULFA (SULFONAMIDE ANTIBIOTICS) 04/21/2021 10 - Anaphylaxis COMPAZINE (PROCHLORPERAZINE) 09/23/2022 1 - Mental Status Change LYRICA (PREGABALIN) 12/26/2022 1 - Mental Status Change METFORMIN 09/22/2023 8 - GI Upset Comments: Severe stomach pain MOSQUITOS 05/25/2023 10 - Anaphylaxis TORADOL (KETOROLAC) 12/26/2022 14 - Other: See Comments Comments: Causes pain Date Reviewed: 02/23/2024 Reviewed by: Arely Mcdermott MA - Fully Assessed Reason for Visit: Sinusitis [127] Prescriptions as of 03/25/2024 - ipratropium-albuterol (DUONEB) 0.5 mg-3 mg(2.5 mg base)/3 mL nebu Inhale 3 mL as instructed every 6 hours as needed for wheezing/shortness of breath. - albuterol HFA (PROVENTIL HFA, VENTOLIN HFA) 90 mcg/actuation inhaler Inhale 2 Puffs as instructed every 6 hours as needed for wheezing/shortness of breath. - acetaminophen (TYLENOL) 325 mg tablet 650 mg every 4 hours. As needed for elevated temperature DO NOT EXCEED 4GM in 24 HOURS - aluminum-magnesium hydroxide-simethicone (MAALOX,MYLANTA,MAG-AL PLUS) 200-200-20 mg/5 mL suspension Take 30 mL by mouth every 4 hours as needed. - empagliflozin (JARDIANCE) 25 mg tablet Take 25 mg by mouth daily with breakfast. - linaclotide (LINZESS) 145 mcg capsule Take 145 mcg by mouth daily at 6 am. - magnesium oxide 400 mg magnesium tab Take 1 tablet by mouth at bedtime as needed (for leg cramps). - magnesium hydroxide (MILK OF MAGNESIA) 400 mg/5 mL suspension Take 30 mL by mouth once daily as needed. - Diaper,Brief, Adult,Disposable Size Medium, 1-2 times a day - furosemide (LASIX) 40 mg tablet Take 1 tablet by mouth once daily as needed. - apixaban (ELIQUIS) 5 mg tab(s) Take 1 tablet by mouth two times a day. [facility] - levomefolate (DEPLIN) 7.5 mg capsule Take 2 capsules by mouth once daily. - potassium chloride ER (KLOR-CON) 20 mEq tablet Take 1 tablet by mouth once daily. - rosuvastatin (CRESTOR) 10 mg tablet Take 1 tablet by mouth daily at bedtime. - gabapentin (NEURONTIN) 300 mg capsule Take 2 capsules by mouth three times a day AND 3 capsules daily at bedtime. Do all this for 90 days. - PREDATOR CONTROL TRAPPER THYROID 60 mg tablet Take 1 tablet by mouth once daily. - esomeprazole (NEXIUM) 20 mg capsule Take 20 mg by mouth daily at 6 am. - metoprolol tartrate, short acting, (LOPRESSOR) 25 mg tablet Take 0.5 tablets by mouth two times a day. - montelukast (SINGULAIR) 10 mg tablet Take 1 tablet by mouth daily at bedtime. - tamsulosin (FLOMAX) 0.4 mg Take 1 capsule by mouth once daily. - blood sugar diagnostic (BLOOD GLUCOSE TEST) test strip Test blood sugar(s) 1 times daily. Dx: Type 2 DM - Uncontrolled E11.65 Insulin: No - dicyclomine (BENTYL) 20 mg tablet Take 1 tablet by mouth twice daily as needed. From [facility]. - Cholecalciferol, Vitamin D3, 125 mcg (5,000 unit) cap Take by mouth. - traZODone (DESYREL) 150 mg tablet Take 2 tablets by mouth daily at bedtime. [facility] - nitroglycerin sublingual (NITROSTAT) 0.4 mg SL tablet Dissolve 1 tablet under the tongue every 5 minutes as needed. - Lancets lancets Test blood sugar(s) 100 times daily. Dx: Type 2 DM - Uncontrolled E11.65 Insulin: No - diphenhydrAMINE (BENADRYL) 25 mg capsule Take 25 mg by mouth every 4 hours as needed. - multivitamin/iron/folic acid (CENTRUM WOMEN ORAL) Take by mouth once daily. - buprenorphine (BUTRANS) 5 mcg/hour Apply 1 Patch as directed one time a week. Per Dr. Carter - HYDROcodone-acetaminophen (NORCO) 5-325 mg per tablet Take 1 tablet by mouth twice daily. - dimenhyDRINATE (DRAMAMINE) 50 mg tablet Take 50 mg by mouth at bedtime as needed (nausea). - Uidpebj-Ldqyqvvmhaujf-Iegpl ine (EXCEDRIN MIGRAINE) 250-250-65 mg per tablet Take 1 tablet by mouth every 6 hours as needed for pain. - ascorbic acid, vitamin C, (VITAMIN C) 500 mg tablet Take 1 tablet by mouth once daily. 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 Normal [facility]ina 02-26-2024 [facility] Telephone (FAMWS) EMBER MALDONADO ([id number]) 1950 F Date Time Provider Department 02/26[facility] During your visit today, we recorded the following information about you: Annamaria Morgan MA 02/26/2024 10:57 AM Signed ----- Message from Honey Holguin APRN.TECHNICAL SERVICES COORDINATOR sent at 02/26/2024 10:51 AM EDT ----- Please let patient know her strep and viral panel are negative Annamaria Morgan MA 02/26/2024 11:09 AM Addendum Call to pt and notified of results below. Pt has question about her lungs, feels she has a lot of mucous or a plug. Is requesting a Rx for her Nebulizer machine to use to help break things up. Feels she needs this. Requesting this to go to [facility] through [facility]. Asking for x-ray order to be faxed to [facility] for her to complete there, due to difficulty with transportation. Asked for fax number, gave [phone] ATTN: Donis Tamayo who's the Director where she lives. This has been faxed within [employer]. Annamaria Morgan MA Notified her of this as well. Honey Holguin APRN.TECHNICAL SERVICES COORDINATOR [address] [facility] Please let patient know her BNP is slightly elevated but still acceptable. Allergies As of Date: 02/26/2024 Noted Allergy Reaction SULFA (SULFONAMIDE ANTIBIOTICS) 04/21/2021 10 - Anaphylaxis COMPAZINE (PROCHLORPERAZINE) 09/23/2022 1 - Mental Status Change LYRICA (PREGABALIN) 12/26/2022 1 - Mental Status Change METFORMIN 09/22/2023 8 - GI Upset Comments: Severe stomach pain MOSQUITOS 05/25/2023 10 - Anaphylaxis TORADOL (KETOROLAC) 12/26/2022 14 - Other: See Comments Comments: Causes pain Date Reviewed: 02/23/2024 Reviewed by: Arely Mcdermott MA - Fully Assessed Reason for Visit: Results [95] Primary Visit Diagnosis:Mild intermittent asthma without complication [J45.20] Order(s):ipratropium-albute rol (DUONEB) 0.5 mg-3 mg(2.5 mg base)/3 mL nebuInhale 3 mL as instructed every 6 hours as needed for wheezing/shortness of breath.Disp: 300 mLRfl: 0 Prescriptions as of 02/26/2024 - ipratropium-albuterol (DUONEB) 0.5 mg-3 mg(2.5 mg base)/3 mL nebu Inhale 3 mL as instructed every 6 hours as needed for wheezing/shortness of breath. - albuterol HFA (PROVENTIL HFA, VENTOLIN HFA) 90 mcg/actuation inhaler Inhale 2 Puffs as instructed every 6 hours as needed for wheezing/shortness of breath. - acetaminophen (TYLENOL) 325 mg tablet 650 mg every 4 hours. As needed for elevated temperature DO NOT EXCEED 4GM in 24 HOURS - aluminum-magnesium hydroxide-simethicone (MAALOX,MYLANTA,MAG-AL PLUS) 200-200-20 mg/5 mL suspension Take 30 mL by mouth every 4 hours as needed. - empagliflozin (JARDIANCE) 25 mg tablet Take 25 mg by mouth daily with breakfast. - linaclotide (LINZESS) 145 mcg capsule Take 145 mcg by mouth daily at 6 am. - magnesium oxide 400 mg magnesium tab Take 1 tablet by mouth at bedtime as needed (for leg cramps). - magnesium hydroxide (MILK OF MAGNESIA) 400 mg/5 mL suspension Take 30 mL by mouth once daily as needed. - Diaper,Brief, Adult,Disposable Size Medium, 1-2 times a day - furosemide (LASIX) 40 mg tablet Take 1 tablet by mouth once daily as needed. - apixaban (ELIQUIS) 5 mg tab(s) Take 1 tablet by mouth two times a day. [facility] - levomefolate (DEPLIN) 7.5 mg capsule Take 2 capsules by mouth once daily. - potassium chloride ER (KLOR-CON) 20 mEq tablet Take 1 tablet by mouth once daily. - rosuvastatin (CRESTOR) 10 mg tablet Take 1 tablet by mouth daily at bedtime. - gabapentin (NEURONTIN) 300 mg capsule Take 2 capsules by mouth three times a day AND 3 capsules daily at bedtime. Do all this for 90 days. - PREDATOR CONTROL TRAPPER THYROID 60 mg tablet Take 1 tablet by mouth once daily. - esomeprazole (NEXIUM) 20 mg capsule Take 20 mg by mouth daily at 6 am. - metoprolol tartrate, short acting, (LOPRESSOR) 25 mg tablet Take 0.5 tablets by mouth two times a day. - montelukast (SINGULAIR) 10 mg tablet Take 1 tablet by mouth daily at bedtime. - tamsulosin (FLOMAX) 0.4 mg Take 1 capsule by mouth once daily. - blood sugar diagnostic (BLOOD GLUCOSE TEST) test strip Test blood sugar(s) 1 times daily. Dx: Type 2 DM - Uncontrolled E11.65 Insulin: No - dicyclomine (BENTYL) 20 mg tablet Take 1 tablet by mouth twice daily as needed. From [facility]. - Cholecalciferol, Vitamin D3, 125 mcg (5,000 unit) cap Take by mouth. - traZODone (DESYREL) 150 mg tablet Take 2 tablets by mouth daily at bedtime. [facility] - nitroglycerin sublingual (NITROSTAT) 0.4 mg SL tablet Dissolve 1 tablet under the tongue every 5 minutes as needed. - Lancets lancets Test blood sugar(s) 100 times daily. Dx: Type 2 DM - Uncontrolled E11.65 Insulin: No - diphenhydrAMINE (BENADRYL) 25 mg capsule Take 25 mg by mouth every 4 hours as needed. - multivitamin/iron/folic acid (CENTRUM WOMEN ORAL) Take by mouth once daily. - buprenorphine (BUTRANS) 5 mcg/h (more content not included)... Normal [facility] CNOVon 02-23-2024 CNOV Office Visit (FAMPWS ) EMBER MALDONADO ([id number]) 1950 F Date Time Provider Department 02/23/24 11:00 AM HONEY HOLGUIN During your visit today, we recorded the following information about you: Temperature Pulse Respiration Blood pressure 98 degrees 59/minute 14/minute 108/66 Weight 73 kg Honey Holguin, BAG WORKER.TECHNICAL SERVICES COORDINATOR 02/23/2024 11:34 AM Signed Chief Complaint Patient presents with: Sore Throat: X 5 days falls: More frequent fallsX 1 week HPI Ember Maldonado is a 73 year old female who presents here today for Above Complaints.. Patient presents for sore throat, congestion, cough, and increased falls x 1 week. Patient concerned for strep throat. Patient also reports generalized weakness to bilat lower legs. Also reports increased edema to bilat lower legs. Hx of CHF. Past medical history, appointments, medications, allergies reviewed. Previous Medical History PAST MEDICAL HISTORY Diagnosis Date ADD (attention deficit disorder) Alternating constipation and diarrhea 06/02/2022 Dr. Chantell Blas, [place] [facility] Anticoagulant medication declined by patient Anxiety and depression At risk for stroke Atrial fibrillation ([facility]) 08/30 Cellulitis of lower extremity 2019 Chronic fatigue syndrome Dizziness, nonspecific 09/07/2021 Falls frequently 09/07/2021 Fibromyalgia Folic acid deficiency GERD (gastroesophageal reflux disease) Hypothyroidism Insomnia Intractable back pain Mild intermittent asthma without complication 10/05/2021 Mixed incontinence 12/13/2023 Osteopenia Type 2 diabetes mellitus without complication, without long-term current use of insulin ([facility]) 04/21/2021 Previous Surgical History PAST SURGICAL HISTORY Procedure Laterality Date APPENDECTOMY 1973 COLONOSCOPY SCREENING 08/2020, 08/2020 COLONOSCOPY SCREENING 08/07/2023 Dr. Blas. Recheck 5 years. No biopsy. EXTRACTION ERUPTED TOOTH/EXR 1973 HYSTERECTOMY HX 1989 Endometriosis. Adenomyosis. Total hysterectomy, BSO LAPAROSCOPIC CHOLECYSTECTOMY 1997 LIGATE FALLOPIAN TUBE Bilateral 1988 SHOULDER SURGERY HX Right 1984 right shoulder X 3. 1978,1980,1983 TONSILLECTOMY HX 1971 Family History FAMILY HISTORY Problem Relation Age of Onset Depression Mother Depression Father Anxiety disorder Father Patient Allergies ALLERGIES Allergen Reactions Sulfa (Sulfonamide * Anaphylaxis Compazine [Prochlor* Mental Status Change Lyrica [Pregabalin] Mental Status Change Metformin GI Upset Severe stomach pain [place] Anaphylaxis Toradol [Ketorolac] Other: See Comments Causes pain Current Medications Current Outpatient Medications on File Prior to Visit Medication Sig acetaminophen (TYLENOL) 325 mg tablet 650 mg every 4 hours. As needed for elevated temperature DO NOT EXCEED 4GM in 24 HOURS aluminum-magnesium hydroxide-simethicone (MAALOX,MYLANTA,MAG-AL PLUS) 200-200-20 mg/5 mL suspension Take 30 mL by mouth every 4 hours as needed. empagliflozin (JARDIANCE) 25 mg tablet Take 25 mg by mouth daily with breakfast. linaclotide (LINZESS) 145 mcg capsule Take 145 mcg by mouth daily at 6 am. magnesium oxide 400 mg magnesium tab Take 1 tablet by mouth at bedtime as needed (for leg cramps). magnesium hydroxide (MILK OF MAGNESIA) 400 mg/5 mL suspension Take 30 mL by mouth once daily as needed. Diaper,Brief, Adult,Disposable Size Medium, 1-2 times a day furosemide (LASIX) 40 mg tablet Take 1 tablet by mouth once daily as needed. apixaban (ELIQUIS) 5 mg tab(s) Take 1 tablet by mouth two times a day. [facility] albuterol HFA (PROVENTIL HFA, VENTOLIN HFA) 90 mcg/actuation inhaler Inhale as instructed. levomefolate (DEPLIN) 7.5 mg capsule Take 2 capsules by mouth once daily. potassium chloride ER (KLOR-CON) 20 mEq tablet Take 1 tablet by mouth once daily. rosuvastatin (CRESTOR) 10 mg tablet Take 1 tablet by mouth daily at bedtime. gabapentin (NEURONTIN) 300 mg capsule Take 2 capsules by mouth three times a day AND 3 capsules daily at bedtime. Do all this for 90 days. PREDATOR CONTROL TRAPPER THYROID 60 mg tablet Take 1 tablet by mouth once daily. esomeprazole (NEXIUM) 20 mg capsule Take 20 mg by mouth daily at 6 am. metoprolol tartrate, short acting, (LOPRESSOR) 25 mg tablet Take 0.5 tablets by mouth two times a day. montelukast (SINGULAIR) 10 mg tablet Take 1 tablet by mouth daily at bedtime. tamsulosin (FLOMAX) 0.4 mg Take 1 capsule by mouth once daily. blood sugar diagnostic (BLOOD GLUCOSE TEST) test strip Test blood sugar(s) 1 times daily. Dx: Type 2 DM - Uncontrolled E11.65 Insulin: No dicyclomine (BENTYL) 20 mg tablet Take 1 tablet by mouth twice daily as needed. From [facility]. Cholecalciferol, Vitamin D3, 125 mcg (5,000 unit) cap Take by mouth. traZODone (DESYREL) 150 mg tablet Take 2 tablets by mouth daily at bedtime. [facility]. nitroglycerin sublingual (NITROSTAT) 0.4 (more content not included)... [facility] EMB[facility] MALDONADO ([id number]) 1950 F Date Time Provider Department 02/23/24 HONEY HOLGUIN [facility] During your visit today, we recorded the following information about you: Honey Holguin APRN.[facility] 02/23/2024 3:14 PM Signed Please let patient know her xray shows focal atelectasis in her left lung. I would encourage her to cough and deep breath 10 times an hour while awake. I also sent in a prescription for an inhaler. I would like to have her repeat her chest xray in 1 week. Karine Hurtado MA 02/23/2024 3:45 PM Signed Pt notified and voiced understanding. Karine Hurtado MA Allergies As of Date: 02/23/2024 Noted Allergy Reaction SULFA (SULFONAMIDE ANTIBIOTICS) 04/21/2021 10 - Anaphylaxis COMPAZINE (PROCHLORPERAZINE) 09/23/2022 1 - Mental Status Change LYRICA (PREGABALIN) 12/26/2022 1 - Mental Status Change METFORMIN 09/22/2023 8 - GI Upset Comments: Severe stomach pain MOSQUITOS 05/25/2023 10 - Anaphylaxis TORADOL (KETOROLAC) 12/26/2022 14 - Other: See Comments Comments: Causes pain Date Reviewed: 02/23/2024 Reviewed by: Arely Mcdermott MA - Fully Assessed Reason for Visit: Results [95] Primary Visit Diagnosis:SEYMOUR (dyspnea on exertion) [R06.09] Other Visit Diagnosis:Sore throat [J02.9] Order(s):albuterol HFA (PROVENTIL HFA, VENTOLIN HFA) 90 mcg/actuation inhalerInhale 2 Puffs as instructed every 6 hours as needed for wheezing/shortness of breath.Disp: 1 EachRfl: 0 Inhalational Spacing Device1 Device one time only for 1 dose.Disp: 1 EachRfl: 0 XR CHEST 2V FRONTAL/LAT [[id number]] Order #: [id number] FUTURE Prescriptions as of 02/23/2024 - albuterol HFA (PROVENTIL HFA, VENTOLIN HFA) 90 mcg/actuation inhaler Inhale 2 Puffs as instructed every 6 hours as needed for wheezing/shortness of breath. - Inhalational Spacing Device 1 Device one time only for 1 dose. - acetaminophen (TYLENOL) 325 mg tablet 650 mg every 4 hours. As needed for elevated temperature DO NOT EXCEED 4GM in 24 HOURS - aluminum-magnesium hydroxide-simethicone (MAALOX,MYLANTA,MAG-AL PLUS) 200-200-20 mg/5 mL suspension Take 30 mL by mouth every 4 hours as needed. - empagliflozin (JARDIANCE) 25 mg tablet Take 25 mg by mouth daily with breakfast. - linaclotide (LINZESS) 145 mcg capsule Take 145 mcg by mouth daily at 6 am. - magnesium oxide 400 mg magnesium tab Take 1 tablet by mouth at bedtime as needed (for leg cramps). - magnesium hydroxide (MILK OF MAGNESIA) 400 mg/5 mL suspension Take 30 mL by mouth once daily as needed. - Diaper,Brief, Adult,Disposable Size Medium, 1-2 times a day - furosemide (LASIX) 40 mg tablet Take 1 tablet by mouth once daily as needed. - apixaban (ELIQUIS) 5 mg tab(s) Take 1 tablet by mouth two times a day. [facility] - levomefolate (DEPLIN) 7.5 mg capsule Take 2 capsules by mouth once daily. - potassium chloride ER (KLOR-CON) 20 mEq tablet Take 1 tablet by mouth once daily. - rosuvastatin (CRESTOR) 10 mg tablet Take 1 tablet by mouth daily at bedtime. - gabapentin (NEURONTIN) 300 mg capsule Take 2 capsules by mouth three times a day AND 3 capsules daily at bedtime. Do all this for 90 days. - PREDATOR CONTROL TRAPPER THYROID 60 mg tablet Take 1 tablet by mouth once daily. - esomeprazole (NEXIUM) 20 mg capsule Take 20 mg by mouth daily at 6 am. - metoprolol tartrate, short acting, (LOPRESSOR) 25 mg tablet Take 0.5 tablets by mouth two times a day. - montelukast (SINGULAIR) 10 mg tablet Take 1 tablet by mouth daily at bedtime. - tamsulosin (FLOMAX) 0.4 mg Take 1 capsule by mouth once daily. - blood sugar diagnostic (BLOOD GLUCOSE TEST) test strip Test blood sugar(s) 1 times daily. Dx: Type 2 DM - Uncontrolled E11.65 Insulin: No - dicyclomine (BENTYL) 20 mg tablet Take 1 tablet by mouth twice daily as needed. From [facility]. - Cholecalciferol, Vitamin D3, 125 mcg (5,000 unit) cap Take by mouth. - traZODone (DESYREL) 150 mg tablet Take 2 tablets by mouth daily at bedtime. [facility]. - nitroglycerin sublingual (NITROSTAT) 0.4 mg SL tablet Dissolve 1 tablet under the tongue every 5 minutes as needed. - Lancets lancets Test blood sugar(s) 100 times daily. Dx: Type 2 DM - Uncontrolled E11.65 Insulin: No - diphenhydrAMINE (BENADRYL) 25 mg capsule Take 25 mg by mouth every 4 hours as needed. - multivitamin/iron/folic acid (CENTRUM WOMEN ORAL) Take by mouth once daily. - buprenorphine (BUTRANS) 5 mcg/hour Apply 1 Patch as directed one time a week. Per Dr. Carter - HYDROcodone-acetaminophen (NORCO) 5-325 mg per tablet Take 1 tablet by mouth twice daily. - dimenhyDRINATE (DRAMAMINE) 50 mg tablet Take 50 mg by mouth at bedtime as needed (nausea). - Aqphxcy-Mvjziswxdcrdp-Jrwab ine (EXCEDRIN MIGRAINE) 250-250-65 mg per tablet Take 1 tablet by mouth every 6 hours as needed for pain. - ascorbic acid, vitamin C, (VITAMIN C) 500 mg tab (more content not included)... Normal [facility] COVID AND INFLUENZA A/B AND RSV PCR, ROUTINEon 02-23-2024 SARS-CoV-2 (COVID-19) RNA KAYLYNN+probe Ql (Unsp spec) SARS-COV-2 (AGENT OF COVID-19) RNA: Not detected INFLUENZA A RNA: Not detected INFLUENZA B RNA: Not detected RESPIRATORY SYNCYTIAL VIRUS (RSV) RNA: Not detected Normal [facility] Comment on above: Performed By: #### C VFLRS ####[facility] LABIA [id number] [place] [address] [place] NT-proBNP [facility] Natriuretic peptide.B prohormone N-Terminal [Mass/Vol] 344 pg/mL High <125 [facility] Comment on above: Order Comment: Speci men Type: BLOOD SPECIMENOrdering Facility: [facility] Address: [address] [place] [address] Performed By: #### 3 [id number] ####[facility] LABIA [id number] [place] [address] [place] STREP A MOLECULAR (POC)on Procedural Control Valid [facility] Strep A (POCT) Negative Negative [facility] UA DIP, URINE (POC)on 2023 BILIRUBIN UA (POCT) Negative Negative [facility] CLARITY UA (POCT) [facility] COLOR UA (POCT) Yellow [facility] GLUCOSE UA (POCT) 500 mg/dL [facility]normal [facility] Hemoglobin Ql (U) Negative [facility] Interpretation and review of laboratory results Abnormal [facility] KETONE UA (POCT) Negative Negative mg/dL [facility] LEUKOCYTES UA (POCT) Negative Negative [facility] NITRITE UA (POCT) Negative Negative [facility] PH UA (POCT) 6.0 4.5 - 8.0 [facility] Protein Ql (U) Negative Negative mg/dL [facility] SPECIFIC GRAVITY UA (POCT) 1.010 1.005 - 1.030 [facility] UROBILINOGEN UA (POCT) 0.2 Edie l E.U./dL [facility] Location:[facility], [address] [place] [address], [place], [place], [id number] [place] [address] POINT OF CARE [facility] XR CHEST 2V FRONTAL/LATon XR CHEST 2V FRONTAL/LAT * * *Final Report* * * DATE OF EXAM: Feb 23 2024 12:09PM WOX [id number] - XR CHEST 2V FRONTAL/LAT / PROCEDURE REASON: multiple diagnoses * * * * Physician Interpretation * * * * EXAMINATION: CHEST RADIOGRAPH (2 VIEW FRONTAL and LATERAL) CLINICAL HISTORY: SOB (shortness of breath) SEYMOUR (dyspnea on exertion) MQ: XC2_6 EXAM DATE/TIME: 02/23/2024 12:09 PM COMPARISON: Chest x-ray on 04/21/2021 RESULT: Lines, tubes, and devices: None. Lungs and pleura: Focal atelectasis seen in the left lower lung. No consolidation. No lung mass. No pleural effusion. No pneumothorax. Cardiomediastinal silhouette: Normal cardiomediastinal silhouette. Bones and soft tissues: There are degenerative changes in the spine. IMPRESSION: Focal atelectasis in the left lower lung. Banquet Manager: [place] Transcribe Date/Time: Feb 23 2024 12:33P Dictated by : DORIS JHA MD This examination was interpreted and the report reviewed and electronically signed by: DORIS JHA MD on Feb 23 2024 12:34PM EST [id number] Normal [facility] XR Chest PA and Lateralon IMPRESSION: Focal atelectasis in the left lower lung. Banquet Manager: PSCB Transcribe Date/Time: Feb 23 2024 12:33P Dictated by : DORIS JHA MD This examination was interpreted and the report reviewed and electronically signed by: DORIS JHA MD on Feb 23 2024 12:34PM EST DIVISION OF RADIOLOGY * * *Final Report* * * DATE OF EXAM: Feb 23 2024 12:09PM WOX [id number] - XR CHEST 2V FRONTAL/LAT / PROCEDURE REASON: multiple diagnoses * * * * Physician Interpretation * * * * EXAMINATION: CHEST RADIOGRAPH (2 VIEW FRONTAL & LATERAL) CLINICAL HISTORY: SOB (shortness of breath) SEYMOUR (dyspnea on exertion) MQ: XC2_6 EXAM DATE/TIME: 02/23/2024 12:09 PM COMPARISON: Chest x-ray on 04/21/2021 RESULT: Lines, tubes, and devices: None. Lungs and pleura: Focal atelectasis seen in the left lower lung. No consolidation. No lung mass. No pleural effusion. No pneumothorax. Cardiomediastinal silhouette: Normal cardiomediastinal silhouette. Bones and soft tissues: There are degenerative changes in the spine. DIVISION OF RADIOLOGY Provider, [facility] - 02/23/2024 * * *Final Report* * * DATE OF EXAM: Feb 23 2024 12:09PM WOX [id number] - XR CHEST 2V FRONTAL/LAT / PROCEDURE REASON: multiple diagnoses * * * * Physician Interpretation * * * * EXAMINATION: CHEST RADIOGRAPH (2 VIEW FRONTAL & LATERAL) CLINICAL HISTORY: SOB (shortness of breath) SEYMOUR (dyspnea on exertion) MQ: XC2_6 EXAM DATE/TIME: 02/23/2024 12:09 PM COMPARISON: Chest x-ray on 04/21/2021 RESULT: Lines, tubes, and devices: None. Lungs and pleura: Focal atelectasis seen in the left lower lung. No consolidation. No lung mass. No pleural effusion. No pneumothorax. Cardiomediastinal silhouette: Normal cardiomediastinal silhouette. Bones and soft tissues: There are degenerative changes in the spine. IMPRESSION IMPRESSION: Focal atelectasis in the left lower lung. Banquet Manager: PSCB Transcribe Date/Time: Feb 23 2024 12:33P Dictated by : DORIS JHA MD This examination was interpreted and the report reviewed and electronically signed by: DORIS JHA MD on Feb 23 2024 12:34PM EST [facility] Radiology Study observation (narrative) [facility] XR Chest PA and LateralOrder ed By: [facility] Provider on 02-23-2024 [facility] Basic metabolic 2000 panelon 09-15-2023 Anion gap [Moles/Vol] 13 mmol/L 9 - 18 mmol/L [facility] Calcium [Mass/Vol] 9.9 mg/dL 8.5 - 10. 2 mg/dL [facility] Chloride [Moles/Vol] 95 mmol/L Low 97 - 10 5 mmol/L [facility] CO2 [Moles/Vol] 26 mmol/L 22 - 30 mmol/L [facility] Creatinine [Mass/Vol] 0.93 mg/dL 0.58 - 0.96 mg/dL [facility] Estimated Glomerular Filtration Rate 66 mL/min/1.73m >=60 mL/min/1.73 m [facility] Glucose [Mass/Vol] 103 mg/dL High 74 - 99 mg/dL [facility] Potassium [Moles/Vol] 4.6 mmol/L 3.7 - 5.1 mmol/L [facility] Sodium [Moles/Vol] 134 mmol/L Low 136 - 144 mmol/L [facility] Urea nitrogen [Mass/Vol] 20 mg/dL 7 - 21 mg/dL [facility] HbA1c (Bld)on 09-15-2023 Average glucose Estimated from glycated hemoglobin (Bld) [Mass/Vol] 154 mg/dL [facility] HbA1c (Bld) [Mass fraction] 7.0 % High 4.3 - 5.6 % [facility] Absolute lymphocyte countOrd ered By: Millinegrita Jefferson on 06-01-2023 Lymphocytes Auto (Unsp spec) [#/Vol] 2.02 10*3/uL 0.83-4.51 [facility] Basophil percentageOrdered B y: Milli Sharmaelsa on 06-01-2023 Basophils/100 WBC (Bld) 0.5 % 0-1 [facility] Bilirubin [Mass/Vol] 0.40 mg/dL 0.20-1.00 [facility] Comment on above: For patients on eltr ombopag therapy, use of Dimension [place] TBIL is not recommended. Chloride [Moles/Vol] 100 mmol/L 98-107 [facility] Eosinophils/100 WBC (Bld) 1.5 % 0-5 [facility] Glucose [Mass/Vol] 119 mg/dL 74-106 [facility] Comment on above: Fasting Glucose resu lt from 100 to 125 mg/dL suggests IMPAIRED HOMEOSTASIS per A.D.A. criteria. Neutrophils (Bld) [#/Vol] 6.1 10*3/uL 2.0-7.7 [facility] Neutrophils/100 WBC (Bld) 67.1 % 47-70 [facility] Potassium [Moles/Vol] 4.2 mmol/L 3.5-5.1 [facility] Comment on above: Moderate Hemolysis, Result may be falsely increased. Protein [Mass/Vol] 8.1 g/dL 6.4-8.2 [facility] Sodium [Moles/Vol] 138 mmol/L 136-145 [facility] WBC (Bld) [#/Vol] 9.1 10*3/uL 4.4-11.0 [facility] Blood erythrocytes count (nu mber/volume)Ordered By: Milli Jefferson on 06-01-2023 RBC (Bld) [#/Vol] 5.10 10*6/uL 4.2-5.4 [facility] Blood hemoglobin measurement (mass/volume)Ordered By: Milli Jefferson on 06-01-2023 Hemoglobin (Bld) [Mass/Vol] 15.2 g/dL 12.0-15.0 [facility] Blood lymphocytes/100 leukoc ytesOrdered By: Milli Jefferson on 06-01-2023 Lymphocytes/100 WBC (Bld) 22.1 % 19-41 [facility] Blood monocytes/100 leukocyt esOrdered By: Milli Jefferson on 06-01-2023 Monocytes/100 WBC (Bld) 8.5 % 0-10 [facility] Blood platelet mean volumeOr dered By: Milli Jefferson on 06-01-2023 Platelet mean volume (Bld) [Entitic vol] 9.4 fL 6.2-12.0 [facility] Determination of erythrocyte mean corpuscular volume (MCV)Ordered By: Milli Jefferson on 06-01-2023 MCV (RBC) [Entitic vol] 91.6 fL 81-99 [facility] Hematocrit Auto (Bld) [Volum e fraction]Ordered By: Milli Jefferson on 06-01-2023 Hematocrit (Bld) [Volume fraction] 46.7 % 37-47 [facility] Influenza virus A and B and SARS-CoV-2 (COVID-19) Ag panel - Upper respiratory specimOrdered By: Milli Jefferson on 06-01-2023 SARS-CoV-2 (COVID-19) RNA KAYLYNN+probe Ql (Resp) [facility] Laboratory - Chemistry and C hemistry - challengeOrdered By: Milli Jefferson on 06-01-2023 ALP [Catalytic activity/Vol] 112 U/L 45-117 [facility] ALT [Catalytic activity/Vol] 25 U/L 13-56 [facility] CO2 [Moles/Vol] 29.0 mmol/L 21.0-32.0 [facility] Globulin (S) [Mass/Vol] 4.1 g/dL 2.2-4.2 [facility] Natriuretic peptide B (Bld) [Mass/Vol] 32.0 pg/mL 0-100 [facility] Urea nitrogen/Creatinine [Mass ratio] 15.8 mg/mg 10-20 [facility] - Hematology and Cell countsOrdered By: Milli Jefferson on 06-01-2023 Erythrocyte distribution width (RBC) [Entitic vol] 41.1 fL 35.1-43.9 [facility] Erythrocyte distribution width (RBC) [Ratio] 12.1 % 11.6-14.6 [facility] Immature granulocytes/100 WBC (Bld) 0.300 % 0.0-0.9 [facility] Comment on above: IG% - Immature Granu locytes (promyelocytes, myelocytes and metamyelocytes) > 1% indicates that a LEFT SHIFT is Present. MCH (RBC) [Entitic mass] 29.8 pg 27.0-32.0 [facility] Nucleated RBC/100 WBC (Bld) [Ratio] 0 % 0-5 [facility] MCHC Auto (RBC) [Mass/Vol]Or dered By: Milli Jefferson on 06-01-2023 MCHC (RBC) [Mass/Vol] 32.5 g/dL 32-36 [facility] No Panel InformationOrdered By: Milli Jefferson on 06-01-2023 Troponin I High Sensitivity 7 pg/mL 3.0-54.0 [facility] Comment on above: Please Note: New Bruno t Units and Gender Specific Reference Ranges. For more information see Policy Stat Procedure [facility] High Sensitivity Troponin (TNIH) and attachments. Estimated GFR (MDRD) Amer 57 mL/min >60 [facility] Comment on above: GFR Calc Estimated GFR (MDRD) Non-Af Amer 47 mL/min >60 [facility] Comment on above: Non- GFR Calc Thyroid Stimulating Hormone (TSH) 1.74 uIU/mL 0.358-3.74 [facility] Platelets bldOrdered By: Mavis Jefferson on 06-01-2023 Platelets (Bld) [#/Vol] 289 10*3/uL 150-450 [facility] Serum or plasma albumin garrett urement (mass/volume)Ordered By: Milli Jefferson on 06-01-2023 Albumin [Mass/Vol] 4.0 g/dL 3.2-5.0 [facility] Serum or plasma albumin/glob ulin mass ratioOrdered By: Milli Jefferson on 06-01-2023 Albumin/Globulin [Mass ratio] 1.0 {ratio} 0.9-2.4 [facility] Serum or plasma calcium garrett urement (mass/volume)Ordered By: Milli Jefferson on 06-01-2023 Calcium [Mass/Vol] 10.2 mg/dL 8.5-10.1 [facility] Serum or plasma creatinine m easurement (mass/volume)Ordered By: Milli Jefferson on 06-01-2023 Creatinine [Mass/Vol] 1.20 mg/dL 0.55-1.02 [facility] Comment on above: The validity of the calculated GFR & GFRAA in patients over 70 years has not been determined. Clinical correlation is essential. Serum or plasma urea nitroge n measurement (mass/volume)Ordered By: Milli Jefferson on 06-01-2023 Urea nitrogen [Mass/Vol] 19 mg/dL 7-18 [facility] Thin prep Papanicolaou smear with manual screeningOrdered By: Milli Jefferson on 06-01-2023 Thin prep Papanicolaou smear with manual screening 31 U/L 15-37 [facility] Comment on above: Moderate Hemolysis, Result may be falsely increased. Thin prep Papanicolaou smear with manual screening 9 5-15 [facility] Absolute lymphocyte countOrd ered By: Dr. Florez on 10-15-2022 Lymphocytes Auto (Unsp spec) [#/Vol] 1.71 10*3/uL 0.83-4.51 [facility] Basophil percentageOrdered B y: Dr. Florez on 10-15-2022 Basophils/100 WBC (Bld) 0.5 % 0-1 [facility] Chloride [Moles/Vol] 101 mmol/L 98-107 [facility] Eosinophils/100 WBC (Bld) 0.3 % 0-5 [facility] Glucose [Mass/Vol] 122 mg/dL 74-106 [facility] Comment on above: Fasting Glucose resu lt from 100 to 125 mg/dL suggests IMPAIRED HOMEOSTASIS per A.D.A. criteria. Neutrophils (Bld) [#/Vol] 7.6 10*3/uL 2.0-7.7 [facility] Neutrophils/100 WBC (Bld) 73.5 % 47-70 [facility] Potassium [Moles/Vol] 4.4 mmol/L 3.5-5.1 [facility] Sodium [Moles/Vol] 136 mmol/L 136-145 [facility] WBC (Bld) [#/Vol] 10.3 10*3/uL 4.4-11.0 [facility] Blood erythrocytes count (nu mber/volume)Ordered By: Dr. Florez on 10-15-2022 RBC (Bld) [#/Vol] 5.02 10*6/uL 4.2-5.4 [facility] Blood hemoglobin measurement (mass/volume)Ordered By: Dr. Florze on 10-15-2022 Hemoglobin (Bld) [Mass/Vol] 14.5 g/dL 12.0-15.0 [facility] Blood lymphocytes/100 leukoc ytesOrdered By: Dr. Florez on 10-15-2022 Lymphocytes/100 WBC (Bld) 16.7 % 19-41 [facility] Blood monocytes/100 leukocyt esOrdered By: Dr. Florez on 10-15-2022 Monocytes/100 WBC (Bld) 8.9 % 0-10 [facility] Blood platelet mean volumeOr dered By: Dr. Florez on 10-15-2022 Platelet mean volume (Bld) [Entitic vol] 9.0 fL 6.2-12.0 [facility] Determination of erythrocyte mean corpuscular volume (MCV)Ordered By: Dr. Florez on 10-15-2022 MCV (RBC) [Entitic vol] 89.2 fL 81-99 [facility] Hematocrit Auto (Bld) [Volum e fraction]Ordered By: Dr. Florez on 10-15-2022 Hematocrit (Bld) [Volume fraction] 44.8 % 37-47 [facility] Laboratory - Chemistry and C hemistry - challengeOrdered By: Dr. Florez on 10-15-2022 CO2 [Moles/Vol] 28.0 mmol/L 21.0-32.0 [facility] Urea nitrogen/Creatinine [Mass ratio] 19.4 mg/mg 10-20 [facility] - Hematology and Cell countsOrdered By: Dr. Florez on 10-15-2022 Erythrocyte distribution width (RBC) [Entitic vol] 40.1 fL 35.1-43.9 [facility] Erythrocyte distribution width (RBC) [Ratio] 12.2 % 11.6-14.6 [facility] Immature granulocytes/100 WBC (Bld) 0.100 % 0.0-0.9 [facility] Comment on above: IG% - Immature Granu locytes (promyelocytes, myelocytes and metamyelocytes) > 1% indicates that a LEFT SHIFT is Present. MCH (RBC) [Entitic mass] 28.9 pg 27.0-32.0 [facility] Nucleated RBC/100 WBC (Bld) [Ratio] 0 % 0-5 [facility] MCHC Auto (RBC) [Mass/Vol]Or dered By: Dr. Florez on 10-15-2022 MCHC (RBC) [Mass/Vol] 32.4 g/dL 32-36 [facility] No Panel InformationOrdered By: Dr. Florez on 10-15-2022 Troponin I High Sensitivity 4 pg/mL 3.0-54.0 [facility] Comment on above: Please Note: New Bruno t Units and Gender Specific Reference Ranges. For more information see Policy Stat Procedure [place] High Sensitivity Troponin (TNIH) and attachments. Estimated Creatinine Clearance Calc 44.52 ml/min [facility] Estimated GFR (MDRD) Amer 77 mL/min >60 [facility] Comment on above: GFR Calc Estimated GFR (MDRD) Non-Af Amer 63 mL/min >60 [facility] Comment on above: Non- GFR Calc Platelets bldOrdered By: Dr. Florez on 10-15-2022 Platelets (Bld) [#/Vol] 277 10*3/uL 150-450 [facility] Serum or plasma calcium garrett urement (mass/volume)Ordered By: Dr. Florez on 10-15-2022 Calcium [Mass/Vol] 9.5 mg/dL 8.5-10.1 [facility] Serum or plasma creatinine m easurement (mass/volume)Ordered By: Dr. Florez on 10-15-2022 Creatinine [Mass/Vol] 0.93 mg/dL 0.55-1.02 [facility] Comment on above: The validity of the calculated GFR & GFRAA in patients over 70 years has not been determined. Clinical correlation is essential. Serum or plasma urea nitroge n measurement (mass/volume)Ordered By: Dr. Florez on 10-15-2022 Urea nitrogen [Mass/Vol] 18 mg/dL 7-18 [facility] Thin prep Papanicolaou smear with manual screeningOrdered By: Dr. Florez on 10-15-2022 Thin prep Papanicolaou smear with manual screening 7 5-15 [facility] Basophil percentageOrdered B y: Berry Blas on 09-02-2022 Basophil percentage 0-5 SEEN /hpf 0-5 [facility] Bilirubin Test strip Ql (U)O rdered By: Berry Blas on 09-02-2022 Bilirubin Ql (U) Negative Negative [facility] Ketones Test strip Ql (U)Ord ered By: Berry Blas on 09-02-2022 Ketones Ql (U) Negative Negative [facility] Mucus LM Ql (Urine sed)Order ed By: Berry Blas on 09-02-2022 Mucus Ql (Urine sed) 0 SEEN /hpf [facility] Nitrite Test strip Ql (U)Ord ered By: Berry Blas on 09-02-2022 Nitrite Ql (U) Negative Negative [facility] Protein Test strip Ql (U)Ord ered By: Berry Blas on 09-02-2022 Protein Ql (U) Negative Negative [facility] Squamous epithelial cells de tection in urine sediment by light microscopyOrdered By: Berry Blas on 09-02-2022 Epithelial cells.squamous LM Ql (Urine sed) 0-5 SEEN /hpf 5-10 [facility] Urine blood detectionOrdered By: Berry Blas on 09-02-2022 RBC Ql (U) Negative Negative [facility] RBC Ql (U) 0 SEEN /hpf 0-5 [facility] Urine clarityOrdered By: Guerrero Blas on 09-02-2022 Clarity (U) Clear Clear [facility] Urine color determinationOrd ered By: Berry Blas on 09-02-2022 Color (U) Yellow Yellow [facility] Urine glucose detectionOrder ed By: Berry Blas on 09-02-2022 Glucose Ql (U) 1000 mg/dl Normal [facility] Urine leukocyte esterase det ection by dipstickOrdered By: Berry Blas on 09-02-2022 Leukocyte esterase Test strip Ql (U) 25 /ul Negative [facility] Urine pHOrdered By: Berry Blas on 09-02-2022 pH (U) 7.0 [pH] 5.0 - 8.0 [facility] Urine sediment bacteria coun t by microscopy (number/high power field)Ordered By: Berry Blas on 09-02-2022 Bacteria LM.HPF (Urine sed) [#/Area] 0 /[HPF] None Seen [facility] Urine specific gravity measu rementOrdered By: Berry Blas on 09-02-2022 Specific gravity (U) [Rel density] 1.005 1.002-1.030 [facility] Urobilinogen Auto test strip Ql (U)Ordered By: Berry Blas on 09-02-2022 Urobilinogen Ql (U) Normal mg/dl Normal [facility] Culture, urineOrdered By: Dr Harjinder Patel on 08-21-2022 Bacteria identified Cx Nom (U) Positive [facility] Basophil percentageOrdered B y: Rebeca Prescott on 08-19-2022 Basophil percentage 0-5 SEEN /hpf 0-5 [facility] Bilirubin Test strip Ql (U)O rdered By: Rebeca Prescott on 08-19-2022 Bilirubin Ql (U) Negative Negative [facility] Ketones Test strip Ql (U)Ord ered By: Rebeca Prescott on 08-19-2022 Ketones Ql (U) Negative Negative [facility] Mucus LM Ql (Urine sed)Order ed By: Rebeca Prescott on 08-19-2022 Mucus Ql (Urine sed) 0 SEEN /hpf [facility] Nitrite Test strip Ql (U)Ord ered By: Rebeca Prescott on 08-19-2022 Nitrite Ql (U) Negative Negative [facility] Protein Test strip Ql (U)Ord ered By: Rebeca Prescott on 08-19-2022 Protein Ql (U) 30 mg/dl Negative [facility] Squamous epithelial cells de tection in urine sediment by light microscopyOrdered By: Rebeca Prescott on 08-19-2022 Epithelial cells.squamous LM Ql (Urine sed) 0 SEEN /hpf 5-10 [facility] Urine blood detectionOrdered By: Rebeca Prescott on 08-19-2022 RBC Ql (U) 250 /ul Negative [facility] RBC Ql (U) 0-5 SEEN /hpf 0-5 [facility] Urine clarityOrdered By: Silvana Prescott on 08-19-2022 Clarity (U) Clear Clear [facility] Urine color determinationOrd ered By: Rebeca Prescott on 08-19-2022 Color (U) Yellow Yellow [facility] Urine glucose detectionOrder ed By: Rebeca Prescott on 08-19-2022 Glucose Ql (U) 1000 mg/dl Normal [facility] Urine leukocyte esterase det ection by dipstickOrdered By: Rebeca Prescott on 08-19-2022 Leukocyte esterase Test strip Ql (U) 500 /ul Negative [facility] Urine pHOrdered By: Rebeca farnsworth on 08-19-2022 pH (U) 7.0 [pH] 5.0 - 8.0 [facility] Urine sediment bacteria coun t by microscopy (number/high power field)Ordered By: Rebeca Prescott on 08-19-2022 Bacteria LM.HPF (Urine sed) [#/Area] RARE /hpf None Seen [facility] Urine specific gravity measu rementOrdered By: Rebeca Prescott on 08-19-2022 Specific gravity (U) [Rel density] 1.010 1.002-1.030 [facility] Urobilinogen Auto test strip Ql (U)Ordered By: Rebeca Prescott on 08-19-2022 Urobilinogen Ql (U) Normal mg/dl Normal [facility] HEMOGLOBIN A1C (POC)on 04-06 HbA1c (Bld) [Mass fraction] 7.2 % Abnormal 4.2 - 5.6 % [facility] ALBUMIN/CREAT RATIO RND URon 11-17-2021 Albumin DL <= 20 mg/L (U) [Mass/Vol] mg/dL [facility] Albumin/Creatinine (U) [Mass ratio] <19 <30 mg/g [facility] Creatinine (U) [Mass/Vol] 62.5 mg/dL 20.0 - 300.0 mg/dL [facility] Comprehensive metabolic 2000 panelon 11-17-2021 Albumin [Mass/Vol] 4.2 g/dL 3.9 - 4.9 g/dL [facility] ALP [Catalytic activity/Vol] 108 U/L 34 - 123 U/L [facility] ALT [Catalytic activity/Vol] 23 U/L 7 - 38 U/L [facility] Anion gap [Moles/Vol] 9 mmol/L 9 - 18 mmol/L [facility] AST [Catalytic activity/Vol] 26 U/L 13 - 35 U/L [facility] Bilirubin [Mass/Vol] 0.2 mg/dL 0.2 - 1 .3 mg/dL [facility] Calcium [Mass/Vol] 9.9 mg/dL 8.5 - 10. 2 mg/dL [facility] Chloride [Moles/Vol] 97 mmol/L 97 - 10 5 mmol/L [facility] CO2 [Moles/Vol] 33 mmol/L High 22 - 30 mmol/L [facility] Creatinine [Mass/Vol] 0.66 mg/dL 0.58 - 0.96 mg/dL [facility] Estimated Glomerular Filtration Rate 95 mL/min/1.73m >=60 mL/min/1.73 m [facility] Glucose [Mass/Vol] 117 mg/dL High 74 - 99 mg/dL [facility] Potassium [Moles/Vol] 4.1 mmol/L 3.7 - 5.1 mmol/L [facility] Protein [Mass/Vol] 7.3 g/dL 6.3 - 8.0 g/dL [facility] Sodium [Moles/Vol] 139 mmol/L 136 - 144 mmol/L [facility] Urea nitrogen [Mass/Vol] 14 mg/dL 7 - 21 mg/dL [facility] HEP C AB IA W/CONF SCRNon HCV Ab Ql (S) Negative Negative [facility] HbA1c (Bld)on 11-17-2021 Average glucose Estimated from glycated hemoglobin (Bld) [Mass/Vol] 160 mg/dL [facility] HbA1c (Bld) [Mass fraction] 7.2 % High 4.3 - 5.6 % [facility] Lipid 1996 panelon Cholesterol [Mass/Vol] 168 mg/dL <200 mg/dL [facility] Cholesterol in HDL [Mass/Vol] 53 mg/dL >39 mg/dL [facility] Cholesterol in LDL [Mass/Vol] 91 mg/dL <100 mg/dL [facility] Cholesterol in LDL/Cholesterol in HDL [Mass ratio] 1.72 {ratio} <2.54 [facility] Cholesterol in VLDL [Mass/Vol] 24 mg/dL <30 mg/dL [facility] Cholesterol non HDL [Mass/Vol] 115 mg/dL <130 mg/dL [facility] Cholesterol.total/Chol esterol in HDL [Mass ratio] 3.17 {ratio} <5.10 [facility] Fasting Time 12 hrs [facility] Triglyceride [Mass/Vol] 118 mg/dL <150 mg/dL [facility] Laboratory - Drug toxicology on 10-21-2021 Amphetamines Ql (U) Negative <1000 ng/mL [facility] Work Phone: Benzodiazepines Ql (U) Negative < 200 ng/mL [facility] Work Phone: Cannabinoids Screen Ql (U) Negative < 50 ng/mL [facility] Work Phone: Cocaine Ql (U) Negative < 300 ng/mL [facility] Work Phone: Opiates Ql (U) Positive < 300 ng/mL [facility] Work Phone: No Panel Informationon 10-21 MDMA (Ecstasy) Screen Negative < 500 ng/mL [facility] Work Phone: Miscellaneous Test See comment [facility] Work Phone: Comment on above: [id number]+OXYCODONE-B UND (ng/mL) DRUG RESULT SCREEN CUTOFF____ Amphetamines,Urine Negative ng/mL 1000 Amphetamine test includes Amphetamine and Methamphetamine.Barbiturates Negative ng/mL 200Benzodiazepines Negative ng/mL 200Cannabinoid Negative ng/mL 20Cocaine (Metab) Negative ng/mL 300Opiates Positive ng/mL 300 Opiates test includes Codeine, Morphine, Hydromorphone, Hydrocodone. Please Note: Confirmation performed by Mass Spectrometry Codeine Negative 300 Morphine Negative 300 Hydromorphone Negative 300 Hydrocodone Positive Hydrocodone Conf, MS, UR 768 ng/mL 300 Oxycodone/Oxymorphone,Urine Negative ng/mL 300 Test includes Oxydodone and Oxymorphone. TESTING PERFORMED AT [facility]. ORIGINAL REPORT ON FILE IN LAB CONTAINS ADDITIONAL TEST SITE INFORMATION. Urine Barbiturates Screen Negative < 200 ng/mL [facility] Work Phone: Urine Drug Screen Comment [facility] Work Phone: Comment on above: CONFIRMATORY TESTING FOR ALL POSITIVE URINE DRUG SCREENRESULTS WILL ONLY BE SENT OUT UPON PHYSICIAN ORDER. The results of Urine Drug Screen methods provide only preliminary analytical test results. A more specific alternate chemical method must be used in order to obtain a confirmed analytical result. Gas chromatography/mass spectrometery (GC/MS) is the preferred confirmatory method. Clinical consideration and professional judgement should be applied to any drug of abuse test result, particularly whenpreliminary positive results are used. Urine Methadone Screen Negative < 300 ng/mL [facility] Work Phone: Screening buprenorphine dete ctionon 10-21-2021 Buprenorphine Screen Ql (Unsp spec) Negative <10 ng/mL [facility] Work Phone: Urine phencyclidine (PCP) de tectionon 10-21-2021 Phencyclidine Ql (U) Negative < 25 ng/mL [facility] Work Phone: UA DIP, URINE (POC)on 2021 BILIRUBIN UA (POCT) Negative Negative [facility] CLARITY UA (POCT) Clear [facility] COLOR UA (POCT) Yellow [facility] GLUCOSE UA (POCT) Negative Negative mg/dL [facility] HEMOGLOBIN/BLOOD UA (POCT) Negative Negative [facility] KETONE UA (POCT) Negative Negative mg/dL [facility] LEUKOCYTES UA (POCT) Negative Negative [facility] NITRITE UA (POCT) Negative Negative [facility] PH UA (POCT) 5.5 4.5 - 8.0 [facility] Protein Ql (U) Negative Negative mg/dL [facility] SPECIFIC GRAVITY UA (POCT) 1.020 1.005 - 1.030 [facility] UROBILINOGEN UA (POCT) 0.2 E.U./dL Edie l E.U./dL [facility] XR HAND GENERAL 3V PA/LAT/OB L LEFTon 10-18-2021 [facility] XR Hand - left PA and Latera l and Obliqueon 10-18-2021 * * *Final Report* * * DATE OF EXAM: Oct 18 2021 12:12PM WOX [id number] - XR HAND 3V PA/LAT/OBL LT / PROCEDURE REASON: Hand injury, left, initial encounter * * * * Physician Interpretation * * * * Indication: Left hand pain after injury Comparison: None 3 views of the left hand are obtained. There is no acute fracture or dislocation. 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 Impression: 1. No acute fracture or dislocation. Banquet Manager: [place] Transcribe Date/Time: Oct 18 2021 12:16P Dictated by : MEGA DUNCAN MD This examination was interpreted and the report reviewed and electronically signed by: MEGA DUNCAN MD on Oct 18 2021 12:21PM EST KEYSHA_DO_NOT _USE_DIVIS ION OF RADIOLOGY Provider, nabila Philip - 10/18/2021 * * *Final Report* * * DATE OF EXAM: Oct 18 2021 12:12PM WOX [id number] - XR HAND 3V PA/LAT/OBL LT / PROCEDURE REASON: Hand injury, left, initial encounter * * * * Physician Interpretation * * * * Indication: Left hand pain after injury Comparison: None 3 views of the left hand are obtained. There is no acute fracture or dislocation. 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 Impression: 1. No acute fracture or dislocation. Banquet Manager: [place] Transcribe Date/Time: Oct 18 2021 12:16P Dictated by : MEGA DUNCAN MD This examination was interpreted and the report reviewed and electronically signed by: MEGA DUNCAN MD on Oct 18 2021 12:21PM EST [facility] Radiology Study observation (narrative) [facility] XR Hand - left PA and Latera l and ObliqueOrdered By: Ccf Provider on 10-18-2021 [facility] XR CERV OTHER 4V AP/LAT/OBLo n 10-07-2021 [facility] XR Cervical spine AP and Lat eral and obliqueon 10-07-2021 IMPRESSION: 1. No acute fracture 2. Grade 1 anterolisthesis of C4 on C5. Reversal of cervical lordosis. 3. Degenerative disease of the cervical spine Banquet Manager: PSCB Transcribe Date/Time: Oct 07 2021 1:35P Dictated by : MEGA DUNCAN MD This examination was interpreted and the report reviewed and electronically signed by: MEGA DUNCAN MD on Oct 07 2021 1:37PM EST KEYSHA_DO_NOT _USE_DIVIS ION OF RADIOLOGY * * *Final Report* * * DATE OF EXAM: Oct 07 2021 10:17AM WOX [id number] - XR CERVICAL 4V AP/LAT/OBL / PROCEDURE REASON: multiple diagnoses * * * * Physician Interpretation * * * * X-ray cervical spine, AP, lateral and oblique views Indication: Neck pain Counting reference: Craniocervical junction Anatomic variant: None No acute fracture or destructive osseous lesion. Grade 1 anterolisthesis of C4 on C5. Reversal of cervical lordosis. Degenerative disc disease at multiple levels of the cervical spine with endplate sclerosis, intervertebral disc space narrowing and osteophyte formation. There is no prevertebral soft tissue swelling. ZZZ_DO_NOT _USE_DIVIS ION OF RADIOLOGY Provider, Itzel Philip - 10/07/2021 * * *Final Report* * * DATE OF EXAM: Oct 07 2021 10:17AM WOX [id number] - XR CERVICAL 4V AP/LAT/OBL / PROCEDURE REASON: multiple diagnoses * * * * Physician Interpretation * * * * X-ray cervical spine, AP, lateral and oblique views Indication: Neck pain Counting reference: Craniocervical junction Anatomic variant: None No acute fracture or destructive osseous lesion. Grade 1 anterolisthesis of C4 on C5. Reversal of cervical lordosis. Degenerative disc disease at multiple levels of the cervical spine with endplate sclerosis, intervertebral disc space narrowing and osteophyte formation. There is no prevertebral soft tissue swelling. IMPRESSION IMPRESSION: 1. No acute fracture 2. Grade 1 anterolisthesis of C4 on C5. Reversal of cervical lordosis. 3. Degenerative disease of the cervical spine Banquet Manager: [facility] Transcribe Date/Time: Oct 07 2021 1:35P Dictated by : MEGA DUNCAN MD This examination was interpreted and the report reviewed and electronically signed by: MEGA DUNCAN MD on Oct 07 2021 1:37PM EST [facility] Radiology Study observation (narrative) [facility] XR Cervical spine AP and Lat eral and obliqueOrdered By: Ccf Provider on 10-07-2021 [facility] GERA SCREENINGon 09-29-2021 [facility] CNPNon 09-08-2021 CNPN Telephone (AGCARDPOB ) EMBER MALDONADO ([id number]) 1950 F Date Time Provider Department 09/08/21 TAYLOR ALFONSO During your visit today, we recorded the following information about you: Camille Faye RN 09/08/2021 1:24 PM Signed Received a call from pharmacist at [facility] sent to pharmacy today. Pharmacist indicates there is a drug interaction between atorvastatin and verapamil. Verapamil will increase the effects of atorvastatin. MELANY Ng LPN 09/09/2021 9:18 AM Signed Taylor Alfonso APRN.TECHNICAL SERVICES COORDINATOR Camille Faye RN 18 hours ago (2:43 PM) JN Dillon thank you for the notification. She is on a lower dose of atorvastatin so we will continue with medication therapy Message text Taylor March LPN 09/09/2021 9:18 AM Signed [facility] pharmacy called back in and notified of Taylor's response. Pharmacist voiced understanding and will prepare script. Taylor March LPN Allergies As of Date: 09/08/2021 Noted Allergy Reaction SULFA (SULFONAMIDE ANTIBIOTICS) 04/21/2021 10 - Anaphylaxis Date Reviewed: 09/07/2021 Reviewed by: Bernadette Lora LPN - Fully Assessed Reason for Visit: Medication Problem [65] Prescriptions as of 09/09/2021 - buprenorphine (BUTRANS) 5 mcg/hour Apply 1 Patch as directed one time a week. Per Dr. Carter - atorvastatin (LIPITOR) 20 mg tablet Take 1 tablet by mouth once daily. - omeprazole 20 mg disintegrating tablet (PriLOSEC) Take 20 mg by mouth once daily. - HYDROcodone-acetaminophen (NORCO) 5-325 mg per tablet Take 1 tablet by mouth twice daily. - nitroglycerin sublingual (NITROSTAT) 0.4 mg SL tablet Dissolve 0.4 mg under the tongue every 5 minutes as needed. - gabapentin (NEURONTIN) 300 mg capsule Take 2 capsules by mouth three times daily AND 3 capsules daily at bedtime. Do all this for 90 days. - cyclobenzaprine (FLEXERIL) 5 mg tablet Take 1 tablet by mouth three times daily as needed. - tamsulosin (FLOMAX) 0.4 mg Take 1 capsule by mouth once daily. - potassium chloride ER (K-DUR, KLOR-CON) 20 mEq tablet Take 1 tablet by mouth once daily. - PREDATOR CONTROL TRAPPER THYROID 60 mg Take 1 tablet by mouth once daily. - triamcinolone acetonide (KENALOG) 0.1 % ointment Apply to affected area twice daily. Up to 30 days. - montelukast (SINGULAIR) 10 mg tablet Take 1 tablet by mouth daily at bedtime. - verapamil SR (CALAN SR) 120 mg CR tablet Take 1 tablet by mouth once daily. - furosemide (LASIX) 40 mg tablet Take 1 tablet by mouth twice daily. - Omeprazole Magnesium (PRILOSEC OTC) 20 mg tablet Take 20 mg by mouth once daily. - dimenhyDRINATE (DRAMAMINE) 50 mg tablet Take 50 mg by mouth at bedtime as needed (nausea). - guaiFENesin (MUCUS RELIEF ER) 600 mg 12 hr tablet Take 1,200 mg by mouth twice daily. - Jlxjmhl-Vaiwzpgapheyu-Psief ine (EXCEDRIN MIGRAINE) 250-250-65 mg per tablet Take 1 tablet by mouth every 6 hours as needed for pain. - traZODone (DESYREL) 100 mg tablet - spironolactone (ALDACTONE) 25 mg tablet Take 1 tablet by mouth once daily. - diphenoxylate-atropine (LOMOTIL) 2.5-0.025 mg per tablet Take 1 tablet by mouth four times daily as needed for diarrhea for up to 30 days. - aspirin, enteric coated (ASPIRIN, ENTERIC COATED) 81 mg EC tablet Take 1 tablet by mouth once daily. - Cholecalciferol, Vitamin D3, 125 mcg (5,000 unit) cap Take 1 capsule by mouth once daily. - ascorbic acid, vitamin C, (VITAMIN C) 500 mg tablet Take 1 tablet by mouth once daily. - selenium 200 mcg tablet Take 1 tablet by mouth once daily. - L-Methylfolate (L-METHYLFOLATE) 7.5 mg tab Take 1 tablet by mouth once daily. 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 Lumbar radiculopathy [M54.16] 09/07/2021 Cervical radiculopathy [M54.12] 09/07/2021 Dizziness, nonspecific [R42] 09/07/2021 Falls frequently [R29.6] 09/07/2021 Hypothyroidism [E03.9] 09/07/2021 Atrial fibrillation (HCC) [I48.91] 09/08/2021 Encounter Status:Closed by TAYLOR MARCH on 09/09/21 Normal [facility] Absolute lymphocyte counton 06-25-2021 Lymphocytes Auto (Unsp spec) [#/Vol] 1.97 10*3/uL 0.83-4.51 [facility] Work Phone: Basophil percentageon 2021 Basophils/100 WBC (Bld) 0.5 % 0-1 [facility] Work Phone: Bilirubin [Mass/Vol] 0.30 mg/dL 0.20-1.00 [facility] Work Phone: Comment on above: For patients on eltr ombopag therapy, use of Dimension Blanchard TBIL is not recommended. Chloride [Moles/Vol] 100 mmol/L 98-107 [facility] Work Phone: Eosinophils/100 WBC (Bld) 0.2 % 0-5 [facility] Work Phone: Glucose [Mass/Vol] 94 mg/dL 74-106 [facility] Work Phone: Neutrophils (Bld) [#/Vol] 10.1 10*3/uL 2.0-7.7 [facility] Work Phone: Neutrophils/100 WBC (Bld) 76.5 % 47-70 [facility] Work Phone: Potassium [Moles/Vol] 3.5 mmol/L 3.5-5.1 [facility] Work Phone: Protein [Mass/Vol] 7.8 g/dL 6.4-8.2 [facility] Work Phone: [phone] Sodium [Moles/Vol] 138 mmol/L 136-145 [facility] Work Phone: WBC (Bld) [#/Vol] 13.2 10*3/uL 4.4-11.0 [facility] Work Phone: [phone] Basophil percentage 25-50 SEEN /hpf [facility] Work Phone: [phone] Bilirubin Test strip Ql (U)o n 06-25-2021 Bilirubin Ql (U) Negative Negative [facility] Work Phone: [phone] Blood erythrocytes count (nu mber/volume)on 06-25-2021 RBC (Bld) [#/Vol] 5.27 10*6/uL 4.2-5.4 [facility] Work Phone: [phone] Blood hemoglobin measurement (mass/volume)on 06-25-2021 Hemoglobin (Bld) [Mass/Vol] 14.8 g/dL 12.0-15.0 [facility] Work Phone: Blood lymphocytes/100 leukoc yteson 06-25-2021 Lymphocytes/100 WBC (Bld) 14.9 % 19-41 [facility] Work Phone: Blood monocytes/100 leukocyt eson 06-25-2021 Monocytes/100 WBC (Bld) 7.4 % 0-10 [facility] Work Phone: Blood platelet mean volumeon 06-25-2021 Platelet mean volume (Bld) [Entitic vol] 9.0 fL 6.2-12.0 [facility] Work Phone: [phone] Determination of erythrocyte mean corpuscular volume (MCV)on 06-25-2021 MCV (RBC) [Entitic vol] 88.0 fL 81-99 [facility] Work Phone: Hematocrit Auto (Bld) [Volum e fraction]on 06-25-2021 Hematocrit (Bld) [Volume fraction] 46.4 % 37-47 [facility] Work Phone: Ketones Test strip Ql (U)on 06-25-2021 Ketones Ql (U) 150 mg/dl Negative [facility] Work Phone: Comment on above: CRITICAL VALUE VERIF IED. CALLED TO NAI CADET06/25/21 1453 Marcial Guerra.RESULTS READ BACK BY SAME . CRITICAL VALUE *H Laboratory - Chemistry and C hemistry - challengeon 06-25-2021 ALP [Catalytic activity/Vol] 116 U/L 45-117 [facility] Work Phone: ALT [Catalytic activity/Vol] 29 U/L 13-56 [facility] Work Phone: [phone] CO2 [Moles/Vol] 23.0 mmol/L 21.0-32.0 [facility] Work Phone: Globulin (S) [Mass/Vol] 3.8 g/dL 2.2-4.2 [facility] Work Phone: Urea nitrogen/Creatinine [Mass ratio] 14.8 mg/mg 10-20 [facility] Work Phone: Laboratory - Hematology and Cell countson 06-25-2021 Erythrocyte distribution width (RBC) [Entitic vol] 43.0 fL 35.1-43.9 [facility] Work Phone: Erythrocyte distribution width (RBC) [Ratio] 13.3 % 11.6-14.6 [facility] Work Phone: Immature granulocytes/100 WBC (Bld) 0.500 % 0.0-0.9 [facility] Work Phone: Comment on above: IG% - Immature Granu locytes (promyelocytes, myelocytes and metamyelocytes) > 1% indicates that a LEFT SHIFT is Present. MCH (RBC) [Entitic mass] 28.1 pg 27.0-32.0 [facility] Work Phone: Nucleated RBC/100 WBC (Bld) [Ratio] 0 % 0-5 [facility] Work Phone: MCHC Auto (RBC) [Mass/Vol]on 06-25-2021 MCHC (RBC) [Mass/Vol] 31.9 g/dL 32-36 [facility] Work Phone: Mucus LM Ql (Urine sed)on Mucus Ql (Urine sed) RARE /hpf os [facility] Work Phone: Nitrite Test strip Ql (U)on 06-25-2021 Nitrite Ql (U) Negative Negative [facility] Work Phone: No Panel Informationon 06-25 Estimated Creatinine Clearance Calc 42.45 ml/min [facility] Work Phone: Estimated GFR (MDRD) Amer 65 mL/min >60 [facility] Work Phone: Comment on above: GFR Calc Estimated GFR (MDRD) Non-Af Amer 53 mL/min >60 [facility] Work Phone: Comment on above: Non- GFR Calc Troponin I High Sensitivity 8 pg/mL 3.0-54.0 [facility] Work Phone: Comment on above: Please Note: New Bruno t Units and Gender Specific Reference Ranges. For more information see Policy Stat Procedure Blanchard High Sensitivity Troponin (TNIH) and attachments. SARS-CoV-2 Antigen (Rapid) [facility] Work Phone: Platelets bldon 06-25-2021 Platelets (Bld) [#/Vol] 354 10*3/uL 150-450 [facility] Work Phone: Protein Test strip Ql (U)on 06-25-2021 Protein Ql (U) 30 mg/dl Negative [facility] Work Phone: Serum or plasma albumin garrett urement (mass/volume)on 06-25-2021 Albumin [Mass/Vol] 4.0 g/dL 3.2-5.0 [facility] Work Phone: Serum or plasma albumin/glob ulin mass ratioon 06-25-2021 Albumin/Globulin [Mass ratio] 1.1 {ratio} 0.9-2.4 [facility] Work Phone: Serum or plasma calcium garrett urement (mass/volume)on 06-25-2021 Calcium [Mass/Vol] 9.6 mg/dL 8.5-10.1 [facility] Work Phone: Serum or plasma creatinine m easurement (mass/volume)on 06-25-2021 Creatinine [Mass/Vol] 1.08 mg/dL 0.55-1.02 [facility] Work Phone: Comment on above: The validity of the calculated GFR & GFRAA in patients over 70 years has not been determined. Clinical correlation is essential. Serum or plasma urea nitroge n measurement (mass/volume)on 06-25-2021 Urea nitrogen [Mass/Vol] 16 mg/dL 7-18 [facility] Work Phone: Squamous epithelial cells de tection in urine sediment by light microscopyon 06-25-2021 Epithelial cells.squamous LM Ql (Urine sed) 0-5 SEEN /hpf [facility] Work Phone: Thin prep Papanicolaou smear with manual screeningon 06-25-2021 Thin prep Papanicolaou smear with manual screening 28 U/L 15-37 [facility] Work Phone: Thin prep Papanicolaou smear with manual screening 15 5-15 [facility] Work Phone: Urine blood detectionon 06-12 RBC Ql (U) 10 /ul Negative [facility] Work Phone: RBC Ql (U) 0-5 SEEN /hpf [facility] Work Phone: Urine clarityon 06-25-2021 Clarity (U) Cloudy Clear [facility] Work Phone: Urine color determinationon 06-25-2021 Color (U) Yellow Yellow [facility] Work Phone: Urine glucose detectionon Glucose Ql (U) Normal mg/dl Normal [facility] Work Phone: Urine leukocyte esterase det ection by dipstickon 01-14-2022 Leukocyte esterase Test strip Ql (U) 500 /ul Negative [facility] Work Phone: [phone] Urine pHon 06-25-2021 pH (U) 5.0 [pH] [facility] Work Phone: Urine sediment bacteria coun t by microscopy (number/high power field)on 06-25-2021 Bacteria LM.HPF (Urine sed) [#/Area] 2 /[HPF] None Seen [facility] Work Phone: [phone] Urine specific gravity measu rementon 06-25-2021 Specific gravity (U) [Rel density] 1.030 [facility] Work Phone: [phone] Urobilinogen Auto test strip Ql (U)on 06-25-2021 Urobilinogen Ql (U) 1 mg/dl Normal [facility] Work Phone: Absolute lymphocyte counton 06-16-2021 Lymphocytes Auto (Unsp spec) [#/Vol] 2.11 10*3/uL 0.83-4.51 [facility] Work Phone: Basophil percentageon 2021 Basophil percentage 5-10 SEEN /hpf [facility] Work Phone: [phone] Basophils/100 WBC (Bld) 0.5 % 0-1 [facility] Work Phone: Bilirubin [Mass/Vol] 0.30 mg/dL 0.20-1.00 [facility] Work Phone: Comment on above: For patients on eltr ombopag therapy, use of Dimension Blanchard TBIL is not recommended. Chloride [Moles/Vol] 101 mmol/L 98-107 [facility] Work Phone: Eosinophils/100 WBC (Bld) 0.2 % 0-5 [facility] Work Phone: Glucose [Mass/Vol] 99 mg/dL 74-106 [facility] Work Phone: Comment on above: Please note revised GLUCOSE reference range effective 2017. Neutrophils (Bld) [#/Vol] 8.2 10*3/uL 2.0-7.7 [facility] Work Phone: Neutrophils/100 WBC (Bld) 72.8 % 47-70 [facility] Work Phone: Potassium [Moles/Vol] 3.8 mmol/L 3.5-5.1 [facility] Work Phone: Protein [Mass/Vol] 8.4 g/dL 6.4-8.2 [facility] Work Phone: Sodium [Moles/Vol] 138 mmol/L 136-145 [facility] Work Phone: WBC (Bld) [#/Vol] 11.3 10*3/uL 4.4-11.0 [facility] Work Phone: [phone] Bilirubin Test strip Ql (U)o n 06-16-2021 Bilirubin Ql (U) Negative Negative [facility] Work Phone: [phone] Blood erythrocytes count (nu mber/volume)on 06-16-2021 RBC (Bld) [#/Vol] 5.41 10*6/uL 4.2-5.4 [facility] Work Phone: [phone] Blood hemoglobin measurement (mass/volume)on 06-16-2021 Hemoglobin (Bld) [Mass/Vol] 15.3 g/dL 12.0-15.0 [facility] Work Phone: Blood lymphocytes/100 leukoc yteson 06-16-2021 Lymphocytes/100 WBC (Bld) 18.6 % 19-41 [facility] Work Phone: Blood monocytes/100 leukocyt eson 06-16-2021 Monocytes/100 WBC (Bld) 7.5 % 0-10 [facility] Work Phone: Blood platelet mean volumeon 06-16-2021 Platelet mean volume (Bld) [Entitic vol] 8.8 fL 6.2-12.0 [facility] Work Phone: [phone] Determination of erythrocyte mean corpuscular volume (MCV)on 06-16-2021 MCV (RBC) [Entitic vol] 87.6 fL 81-99 [facility] Work [phone] Direct bilirubinon 2 Bilirubin.direct [Mass/Vol] 0.12 mg/dL 0.00-0.30 [facility] Work Phone: Hematocrit Auto (Bld) [Volum e fraction]on 06-16-2021 Hematocrit (Bld) [Volume fraction] 47.4 % 37-47 [facility] Work Phone: Hyaline casts LM.LPF (Urine sed) [#/Area]on 06-16-2021 Hyaline casts (Urine sed) [#/Area] 0 /[LPF] [facility] Work Phone: [phone] Ketones Test strip Ql (U)on 06-16-2021 Ketones Ql (U) 15 mg/dl Negative [facility] Work Phone: [phone] Laboratory - Chemistry and C hemistry - challengeon 06-16-2021 ALP [Catalytic activity/Vol] 126 U/L 45-117 [facility] Work Phone: [phone] ALT [Catalytic activity/Vol] 28 U/L 13-56 [facility] Work Phone: [phone] CO2 [Moles/Vol] 25.0 mmol/L 21.0-32.0 [facility] Work Phone: [phone] Globulin (S) [Mass/Vol] 4.4 g/dL 2.2-4.2 [facility] Work Phone: [phone] Lipase [Catalytic activity/Vol] 69 U/L 73-393 [facility] Work Phone: [phone] Urea nitrogen/Creatinine [Mass ratio] 18.6 mg/mg 10-20 [facility] Work Phone: [phone] Laboratory - Hematology and Cell countson 06-16-2021 Erythrocyte distribution width (RBC) [Entitic vol] 42.3 fL 35.1-43.9 [facility] Work Phone: [phone] Erythrocyte distribution width (RBC) [Ratio] 13.1 % 11.6-14.6 [facility] Work Phone: Immature granulocytes/100 WBC (Bld) 0.400 % 0.0-0.9 [facility] Work Phone: Comment on above: IG% - Immature Granu locytes (promyelocytes, myelocytes and metamyelocytes) > 1% indicates that a LEFT SHIFT is Present. MCH (RBC) [Entitic mass] 28.3 pg 27.0-32.0 [facility] Work Phone: Nucleated RBC/100 WBC (Bld) [Ratio] 0 % 0-5 [facility] Work Phone: MCHC Auto (RBC) [Mass/Vol]on 06-16-2021 MCHC (RBC) [Mass/Vol] 32.3 g/dL 32-36 [facility] Work Phone: Mucus LM Ql (Urine sed)on Mucus Ql (Urine sed) 0 SEEN /hpf [facility] Work Phone: Nitrite Test strip Ql (U)on 06-16-2021 Nitrite Ql (U) Negative Negative [facility] Work Phone: No Panel Informationon 06-16 Estimated Creatinine Clearance Calc 44.95 ml/min [facility] Work Phone: Estimated GFR (MDRD) Amer 69 mL/min >60 [facility] Work Phone: Comment on above: GFR Calc Estimated GFR (MDRD) Non-Af Amer 57 mL/min >60 [facility] Work Phone: Comment on above: Non- GFR Calc Troponin I High Sensitivity 7 pg/mL 3.0-54.0 [facility] Work Phone: Comment on above: Please Note: New Bruno t Units and Gender Specific Reference Ranges. For more information see Policy Stat Procedure Blanchard High Sensitivity Troponin (TNIH) and attachments. Platelets bldon 06-16-2021 Platelets (Bld) [#/Vol] 314 10*3/uL 150-450 [facility] Work Phone: Protein Test strip Ql (U)on 06-16-2021 Protein Ql (U) Negative Negative [facility] Work Phone: Serum or plasma albumin garrett urement (mass/volume)on 06-16-2021 Albumin [Mass/Vol] 4.0 g/dL 3.2-5.0 [facility] Work Phone: Serum or plasma calcium garrett urement (mass/volume)on 06-16-2021 Calcium [Mass/Vol] 10.5 mg/dL 8.5-10.1 [facility] Work Phone: Serum or plasma creatinine m easurement (mass/volume)on 06-16-2021 Creatinine [Mass/Vol] 1.02 mg/dL 0.55-1.02 [facility] Work Phone: Comment on above: The validity of the calculated GFR & GFRAA in patients over 70 years has not been determined. Clinical correlation is essential. Serum or plasma urea nitroge n measurement (mass/volume)on 06-16-2021 Urea nitrogen [Mass/Vol] 19 mg/dL 7-18 [facility] Work Phone: Squamous epithelial cells de tection in urine sediment by light microscopyon 06-16-2021 Epithelial cells.squamous LM Ql (Urine sed) 0 SEEN /hpf [facility] Work Phone: Thin prep Papanicolaou smear with manual screeningon 06-16-2021 Thin prep Papanicolaou smear with manual screening 25 U/L 15-37 [facility] Work Phone: Thin prep Papanicolaou smear with manual screening 12 5-15 [facility] Work Phone: Urine blood detectionon RBC Ql (U) Negative Negative [facility] Work Phone: RBC Ql (U) 0 SEEN /hpf [facility] Work Phone: Urine clarityon 06-16-2021 Clarity (U) Clear Clear [facility] Work Phone: Urine color determinationon 06-16-2021 Color (U) Yellow Yellow [facility] Work Phone: Urine glucose detectionon Glucose Ql (U) Normal mg/dl Normal [facility] Work Phone: Urine leukocyte esterase det ection by dipstickon 06-16-2021 Leukocyte esterase Test strip Ql (U) 500 /ul Negative [facility] Work Phone: [phone] Urine pHon 06-16-2021 pH (U) 5.0 [pH] [facility] Work Phone: Urine sediment bacteria coun t by microscopy (number/high power field)on 06-16-2021 Bacteria LM.HPF (Urine sed) [#/Area] 0 /[HPF] None Seen [facility] Work Phone: Urine specific gravity measu rementon 06-16-2021 Specific gravity (U) [Rel density] 1.020 [facility] Work Phone: Urobilinogen Auto test strip Ql (U)on 06-16-2021 Urobilinogen Ql (U) Normal mg/dl Normal [facility] Work Phone: XR Chest PA and Lateralon IMPRESSION: No acute radiographic abnormality. Banquet Manager: FRANCE Transcribe Date/Time: Apr 21 2021 10:43A Dictated by : ELIZABETH GROVES MD This examination was interpreted and the report reviewed and electronically signed by: ELIZABETH GROVES MD on Apr 21 2021 10:44AM [facility] DIVISION OF RADIOLOGY * * *Final Report* * * DATE OF EXAM: Apr 21 2021 9:33AM WOX [id number] - XR CHEST 2V FRONTAL/LAT / PROCEDURE REASON: Weight loss * * * * Physician Interpretation * * * * EXAMINATION: CHEST RADIOGRAPH (2 VIEW FRONTAL & LATERAL) CLINICAL HISTORY: Weight loss MQ: XC2_6 EXAM DATE/TIME: 04/21/2021 9:33 AM COMPARISON: No relevant prior studies available. RESULT: Lines, tubes, and devices: None. Lungs and pleura: No consolidation. No lung mass. No pleural effusion. No pneumothorax. Cardiomediastinal silhouette: Normal cardiomediastinal silhouette. Bones and soft tissues: Kyphosis of the thoracic spine with mild midthoracic intervertebral joint space narrowing and marginal spurring. DIVISION OF RADIOLOGY Provider, Itzel Philip - 04/21/2021 * * *Final Report* * * DATE OF EXAM: Apr 21 2021 9:33AM WOX [id number] - XR CHEST 2V FRONTAL/LAT / PROCEDURE REASON: Weight loss * * * * Physician Interpretation * * * * EXAMINATION: CHEST RADIOGRAPH (2 VIEW FRONTAL & LATERAL) CLINICAL HISTORY: Weight loss MQ: XC2_6 EXAM DATE/TIME: 04/21/2021 9:33 AM COMPARISON: No relevant prior studies available. RESULT: Lines, tubes, and devices: None. Lungs and pleura: No consolidation. No lung mass. No pleural effusion. No pneumothorax. Cardiomediastinal silhouette: Normal cardiomediastinal silhouette. Bones and soft tissues: Kyphosis of the thoracic spine with mild midthoracic intervertebral joint space narrowing and marginal spurring. IMPRESSION IMPRESSION: No acute radiographic abnormality. Banquet Manager: PSCB Transcribe Date/Time: Apr 21 2021 10:43A Dictated by : ELIZABETH GROVES MD This examination was interpreted and the report reviewed and electronically signed by: ELIZABETH GROVES MD on Apr 21 2021 10:44AM EST [facility] Radiology Study observation (narrative) [facility] XR Chest PA and LateralOrder ed By: [facility] Provider on 04-21-2021 [facility] OCT MACULA CIRRUS OU (BOTH E YES) [facility] Vital Signs Date Time Vital Sign Value Performing Clinician Facility 02-27-2025 09:26-0400 Body height 160.[address] Dajuan Eric MD Work Phone: [facility] 02-27-2025 09:26-0400 Body mass index (BMI) [Ratio] 25.4 kg/m2 Dr. Dajuan Eric MD Work Phone: [facility] 02-27-2025 09:26-0400 Body weight 65.[address] Dajuan Eric MD Work Phone: [facility] 02-27-2025 09:26-0400 Diastolic blood pressure 70 mm[Hg] Dr. Dajuan Eric MD Work Phone: [facility] 02-27-2025 09:26-0400 Heart rate 79 /min Dr. Dajuan Eric MD Work Phone: [facility] 02-27-2025 09:26-0400 Respiratory rate 16 /min Dr. Dajuan Eric MD Work Phone: [facility] 02-27-2025 09:26-0400 Systolic blood pressure 115 mm[Hg] Dr. Dajuan Eric MD Work Phone: 8(741)983-426248 [address] 12-02-2024 09:24-0400 Body height 160.[address] Dajuan Eric MD Work Phone: 9(908)471-506824 [place] [address] 12-02-2024 09:24-0400 Body mass index (BMI) [Ratio] 26.4 kg/m2 Dr. Dajuan Eric MD Work Phone: [facility] 12-02-2024 09:24-0400 Body weight 67.[address] Dajuan Eric MD Work Phone: [facility] 11-06-2024 10:26-0400 Body mass index (BMI) [Ratio] 27.74 kg/m2 Dajuan Eric MD Work Phone: [facility] 11-06-2024 10:26-0400 Body weight 68.8 kg Dajuan Eric MD Work Phone: [facility] 11-06-2024 10:26-0400 Diastolic blood pressure 58 mm[Hg] Dajuan Eric MD Work Phone: [facility] 11-06-2024 10:26-0400 Heart rate 68 /min Dajuan Eric MD Work Phone: [facility] 11-06-2024 10:26-0400 Respiratory rate 16 /min Dajuan Eric MD Work Phone: [facility] 11-06-2024 10:26-0400 Systolic blood pressure 106 mm[Hg] Dajuan Eric MD Work Phone: [facility] 10-10-2024 09:46-0400 Body mass index (BMI) [Ratio] 26.7 kg/m2 Dr. Dajuan Eric MD Work Phone: [facility] 10-10-2024 09:46-0400 Body weight 68.[address] Dajuan Eric MD Work Phone: [facility] 10-10-2024 09:46-0400 Diastolic blood pressure 59 mm[Hg] Dr. Dajuan Eric MD Work Phone: 3(572)810-439024 [place] [address] 10-10-2024 09:46-0400 Heart rate 60 /min Dr. Dajuan Eric MD Work Phone: 8(308)283-675924 [place] [address] 10-10-2024 09:46-0400 Respiratory rate 16 /min Dr. Dajuan Eric MD Work Phone: 6(599)839-147948 [address] 10-10-2024 09:46-0400 Systolic blood pressure 106 mm[Hg] Dr. Dajuan Eric MD Work Phone: 0(508)081-188624 [place] [address] 09-26-2024 11:53-0400 Body height 160.[address] Dajuan Eric MD Work Phone: 7(712)887-100124 [place] [address] 09-26-2024 11:53-0400 Body mass index (BMI) [Ratio] 26.2 kg/m2 Dr. Dajuan Eric MD Work Phone: 0(236)380-404164 [place] [address] 09-26-2024 11:53-0400 Body weight 67.[address] Dajuan Eric MD Work Phone: 9(272)988-435024 [place] [address] 09-26-2024 11:53-0400 Diastolic blood pressure 64 mm[Hg] Dr. Dajuan Eric MD Work Phone: 4(064)989-248324 [place] [address] 09-26-2024 11:53-0400 Heart rate 56 /min Dr. Dajuan Eric MD Work Phone: 4(374)157-123624 [place] [address] 09-26-2024 11:53-0400 Respiratory rate 16 /min Dr. Dajuan Eric MD Work Phone: [facility] 09-26-2024 11:53-0400 Systolic blood pressure 114 mm[Hg] Dr. Dajuan Eric MD Work Phone: [facility] 09-20-2024 09:37-0400 Body mass index (BMI) [Ratio] 25.7 kg/m2 Dr. Dajuan Eric MD Work Phone: [facility] 09-20-2024 09:37-0400 Body temperature 97.3 [degF] Dr. Dajuan Eric MD Work Phone: 3(257)292-588164 [place] [address] 09-20-2024 09:37-0400 Body weight 65.[address] Dajuan Eric MD Work Phone: 3(630)228-049524 [place] [address] 09-20-2024 09:37-0400 Diastolic blood pressure 52 mm[Hg] Dr. Dajuan Eric MD Work Phone: 8(574)487-407038 [place] [address] 09-20-2024 09:37-0400 Heart rate 59 /min Dr. Dajuan Eric MD Work Phone: [facility] 09-20-2024 09:37-0400 Respiratory rate 20 /min Dr. Dajuan Eric MD Work Phone: [facility] 09-20-2024 09:37-0400 SaO2% (BldA) [Mass fraction] 94 % Dr. Dajuan Eric MD Work Phone: [facility] 09-20-2024 09:37-0400 Systolic blood pressure 107 mm[Hg] Dr. Dajuan Eric MD Work Phone: [facility] 09-13-2024 10:54-0400 Body height 157.5 cm Dajuan Eric MD Work Phone: [facility] 09-13-2024 10:54-0400 Body mass index (BMI) [Ratio] 26.85 kg/m2 Dajuan Eric MD Work Phone: [facility] 09-13-2024 10:54-0400 Body temperature 98.01 [degF] Dajuan Eric MD Work Phone: [facility] 09-13-2024 10:54-0400 Body weight 66.6 kg Dajuan Eric MD Work Phone: [facility] 09-13-2024 10:54-0400 Diastolic blood pressure 52 mm[Hg] Dajuan Eric MD Work Phone: [facility] 09-13-2024 10:54-0400 Heart rate 57 /min Dajuan Eric MD Work Phone: [facility] 09-13-2024 10:54-0400 Respiratory rate 12 /min Dajuan Eric MD Work Phone: [facility] 09-13-2024 10:54-0400 SaO2% (BldA) [Mass fraction] 95 % Dajuan Eric MD Work Phone: [facility] 09-13-2024 10:54-0400 Systolic blood pressure 100 mm[Hg] Dajuan Eric MD Work Phone: [facility] 09-06-2024 14:33-0400 Body temperature 98.3 [degF] Dr. Dajuan Eric MD Work Phone: [facility] 09-06-2024 14:33-0400 Diastolic blood pressure 57 mm[Hg] Dr. Dajuan Eric MD Work Phone: [facility] 09-06-2024 14:33-0400 Heart rate 61 /min Dr. Dajuan Eric MD Work Phone: [facility] 09-06-2024 14:33-0400 Respiratory rate 16 /min Dr. Dajuan Eric MD Work Phone: [facility] 09-06-2024 14:33-0400 SaO2% (BldA) [Mass fraction] 95 % Dr. Dajuan Eric MD Work Phone: 0(751)783-024724 [place] [address] 09-06-2024 14:33-0400 Systolic blood pressure 108 mm[Hg] Dr. Dajuan Eric MD Work Phone: 6(876)015-65[address] [place] [address] 09-06-2024 06:00-0400 Body mass index (BMI) [Ratio] 26.8 kg/m2 Dr. Dajuan Eric MD Work Phone: 0(637)691-161524 [place] [address] 09-06-2024 06:00-0400 Body weight 66.[address] Dajuan Eric MD Work Phone: 1(478)904-405524 [place] [address] 09-06-2024 00:07-0400 Body temperature 97.6 [degF] Dr. Dajuan Eric MD Work Phone: 7(187)604-055724 [place] [address] 09-06-2024 00:07-0400 Diastolic blood pressure 54 mm[Hg] Dr. Dajuan Eric MD Work Phone: 1(216)653-766924 [place] [address] 09-06-2024 00:07-0400 Heart rate 130 /min Dr. Dajuan Eric MD Work Phone: 8(216)790-048624 [place] [address] 09-06-2024 00:07-0400 Respiratory rate 17 /min Dr. Dajuan Eric MD Work Phone: 1(433)564-808224 [place] [address] 09-06-2024 00:07-0400 SaO2% (BldA) [Mass fraction] 97 % Dr. Dajuan Eric MD Work Phone: 5(095)081-751124 [place] [address] 09-06-2024 00:07-0400 Systolic blood pressure 85 mm[Hg] Dr. aDjuan Eric MD Work Phone: 1(484)099-118824 [place] [address] 09-05-2024 20:05-0400 Inhaled oxygen flow rate 94 L/min Dr. Dajuan Eric MD Work Phone: 5(223)358-838924 [place] [address] 09-05-2024 19:25-0400 Body height 160.[address] Dajuan Eric MD Work Phone: 1(434)876-926824 [place] [address] 09-05-2024 19:25-0400 Body mass index (BMI) [Ratio] 26.8 kg/m2 Dr. Dajuan Eric MD Work Phone: 4(802)239-388564 [place] [address] 09-05-2024 19:25-0400 Body weight 68.[address] Dajuan Eric MD Work Phone: 5(778)067-568124 [place] [address] 08-27-2024 10:21-0400 Body mass index (BMI) [Ratio] 26 kg/m2 Dr. Dajuan Eric MD Work Phone: 4(541)025-738448 [address] 08-27-2024 10:21-0400 Body weight 66.[address] Dajuan Eric MD Work Phone: 1(896)038-945624 [place] [address] 08-27-2024 10:21-0400 Diastolic blood pressure 71 mm[Hg] Dr. Dajuan Eric MD Work Phone: 1(744)999-175424 [place] [address] 08-27-2024 10:21-0400 Heart rate 56 /min Dr. Dajuan Eric MD Work Phone: 3(058)412-999264 [place] [address] 08-27-2024 10:21-0400 Respiratory rate 18 /min Dr. Dajuan Eric MD Work Phone: 5(807)135-079464 [place] [address] 08-27-2024 10:21-0400 SaO2% (BldA) [Mass fraction] 94 % Dr. Dajuan Eric MD Work Phone: [facility] 08-27-2024 10:21-0400 Systolic blood pressure 116 mm[Hg] Dr. Dajuan Eric MD Work Phone: [facility] 08-03-2024 13:46-0500 Body mass index (BMI) [Ratio] 27.29 kg/m2 Thompson Moomaw BAG WORKER.TECHNICAL SERVICES COORDINATOR Work Phone: [facility] 08-03-2024 13:46-0500 Body temperature 98.71 [degF] Thompson Moomaw BAG WORKER.TECHNICAL SERVICES COORDINATOR Work Phone: [facility] 08-03-2024 13:46-0500 Body weight 69 kg Thompson Moomaw BAG WORKER.TECHNICAL SERVICES COORDINATOR Work Phone: [facility] 08-03-2024 13:46-0500 Diastolic blood pressure 58 mm[Hg] Thompson Moomaw BAG WORKER.TECHNICAL SERVICES COORDINATOR Work Phone: [facility] 08-03-2024 13:46-0500 Heart rate 65 /min Thompson Moomaw BAG WORKER.TECHNICAL SERVICES COORDINATOR Work Phone: [facility] 08-03-2024 13:46-0500 Respiratory rate 20 /min Thompson Moomaw BAG WORKER.TECHNICAL SERVICES COORDINATOR Work Phone: [facility] 08-03-2024 13:46-0500 SaO2% (BldA) [Mass fraction] 95 % Thompson Moomaw BAG WORKER.TECHNICAL SERVICES COORDINATOR Work Phone: [facility] 08-03-2024 13:46-0500 Systolic blood pressure 120 mm[Hg] Thompson Moomaw BAG WORKER.TECHNICAL SERVICES COORDINATOR Work Phone: [facility] 07-26-2024 07:50-0500 Body mass index (BMI) [Ratio] 26.4 kg/m2 Dr. Dajuan Eric MD Work Phone: [facility] 07-26-2024 07:50-0500 Body temperature 97.4 [degF] Dr. Dajuan Eric MD Work Phone: [facility] 07-26-2024 07:50-0500 Body weight 67.[address] Dajuan Eric MD Work Phone: [facility] 07-26-2024 07:50-0500 Diastolic blood pressure 50 mm[Hg] Dr. Dajuan Eric MD Work Phone: [facility] 07-26-2024 07:50-0500 Heart rate 67 /min Dr. Dajuan Eric MD Work Phone: [facility] 07-26-2024 07:50-0500 Respiratory rate 18 /min Dr. Dajuan Eric MD Work Phone: [facility] 07-26-2024 07:50-0500 SaO2% (BldA) [Mass fraction] 95 % Dr. Dajuan Eric MD Work Phone: [facility] 07-26-2024 07:50-0500 Systolic blood pressure 108 mm[Hg] Dr. Dajuan Eric MD Work Phone: [facility] 07-18-2024 10:15-0500 Diastolic blood pressure 58 mm[Hg] Dajuan Eric MD Work Phone: [facility] 07-18-2024 10:15-0500 Heart rate 53 /min Dajuan Eric MD Work Phone: [facility] 07-18-2024 10:15-0500 Systolic blood pressure 92 mm[Hg] Dajuan Eric MD Work Phone: [facility] 07-18-2024 10:02-0500 Body mass index (BMI) [Ratio] 27.02 kg/m2 Dajuan Eric MD Work Phone: [facility] 07-18-2024 10:02-0500 Body temperature 97.59 [degF] Dajuan Eric MD Work Phone: [facility] 07-18-2024 10:02-0500 Body weight 68.3 kg Dajuan Eric MD Work Phone: [facility] 06-04-2024 09:31-0500 Body height 160.[address] Dajuan Eric MD Work Phone: [facility] 06-04-2024 09:31-0500 Body mass index (BMI) [Ratio] 27.1 kg/m2 Dr. Dajuan Eric MD Work Phone: [facility] 06-04-2024 09:31-0500 Body weight 69.[address] Dajuan Eric MD Work Phone: [facility] 06-04-2024 09:31-0500 Diastolic blood pressure 60 mm[Hg] Dr. Dajuan Eric MD Work Phone: [facility] 06-04-2024 09:31-0500 Heart rate 60 /min Dr. Dajuan Eric MD Work Phone: [facility] 06-04-2024 09:31-0500 Respiratory rate 16 /min Dr. Dajuan Eric MD Work Phone: [facility] 06-04-2024 09:31-0500 Systolic blood pressure 98 mm[Hg] Dr. Dajuan Eric MD Work Phone: [facility] 04-09-2024 11:19-0400 Body mass index (BMI) [Ratio] 27.92 kg/m2 Dajuan Eric MD Work Phone: [facility] 04-09-2024 11:19-0400 Body temperature 98.49 [degF] Dajuan Eric MD Work Phone: [facility] 04-09-2024 11:19-0400 Body weight 70.6 kg Dajuan Eric MD Work Phone: [facility] 04-09-2024 11:19-0400 Diastolic blood pressure 64 mm[Hg] Dajuan Eric MD Work Phone: [facility] 04-09-2024 11:19-0400 Heart rate 60 /min Dajuan Erci MD Work Phone: [facility] 04-09-2024 11:19-0400 Systolic blood pressure 126 mm[Hg] Dajuan Eric MD Work Phone: [facility] 03-27-2024 14:05-0400 Body mass index (BMI) [Ratio] 29.07 kg/m2 Scotty Baez APRN.TECHNICAL SERVICES COORDINATOR Work Phone: [facility] 03-27-2024 14:05-0400 Body temperature 98.2 [degF] Scotty Baez APRN.TECHNICAL SERVICES COORDINATOR Work Phone: [facility] 03-27-2024 14:05-0400 Body weight 73.5 kg Scotty Baez APRN.TECHNICAL SERVICES COORDINATOR Work Phone: [facility] 03-27-2024 14:05-0400 Diastolic blood pressure 78 mm[Hg] Scotty Baez BAG WORKER.TECHNICAL SERVICES COORDINATOR Work Phone: [facility] 03-27-2024 14:05-0400 Heart rate 68 /min Scotty Baez BAG WORKER.TECHNICAL SERVICES COORDINATOR Work Phone: [facility] 03-27-2024 14:05-0400 Respiratory rate 18 /min Scotty Baez BAG WORKER.TECHNICAL SERVICES COORDINATOR Work Phone: [facility] 03-27-2024 14:05-0400 SaO2% (BldA) [Mass fraction] 98 % Scotty Baez BAG WORKER.TECHNICAL SERVICES COORDINATOR Work Phone: [facility] 03-27-2024 14:05-0400 Systolic blood pressure 128 mm[Hg] Scotty Baez BAG WORKER.TECHNICAL SERVICES COORDINATOR Work Phone: [facility] 02-23-2024 10:51-0400 Body mass index (BMI) [Ratio] 28.89 kg/m2 Honey Holguin APRN.TECHNICAL SERVICES COORDINATOR Work Phone: [facility] 02-23-2024 10:51-0400 Body temperature 98.01 [degF] Honey Holguin APRN.TECHNICAL SERVICES COORDINATOR Work Phone: [facility] 02-23-2024 10:51-0400 Body weight 73.03 kg Honey Holguin APRN.TECHNICAL SERVICES COORDINATOR Work Phone: [facility] 02-23-2024 10:51-0400 Diastolic blood pressure 66 mm[Hg] Honey Holguin APRN.TECHNICAL SERVICES COORDINATOR Work Phone: [facility] 02-23-2024 10:51-0400 Heart rate 59 /min Honey Holguin APRN.TECHNICAL SERVICES COORDINATOR Work Phone: [facility] 02-23-2024 10:51-0400 Respiratory rate 14 /min Honey Holguin APRN.TECHNICAL SERVICES COORDINATOR Work Phone: [facility] 02-23-2024 10:51-0400 Systolic blood pressure 108 mm[Hg] Honey Holguin APRN.TECHNICAL SERVICES COORDINATOR Work Phone: [facility] 01-16-2024 10:11-0400 Body height 159 cm Dajuan Eric MD Work Phone: [facility] 01-16-2024 [id number] Body mass index (BMI) [Ratio] 28.72 kg/m2 Dajuan Eric MD Work Phone: [facility] 01-16-2024 10:11-0400 Body temperature 97.7 [degF] Dajuan Eric MD Work Phone: [facility] 01-16-2024 [id number] Body weight 72.6 kg Dajuan Eric MD Work Phone: [facility] 01-16-2024 [id number] Diastolic blood pressure 60 mm[Hg] Dajuan Eric MD Work Phone: [facility] 01-16-2024 10:11-0400 Heart rate 60 /min Dajuan Eric MD Work Phone: [facility] 01-16-2024 10:11-0400 Respiratory rate 12 /min Dajuan Eric MD Work Phone: [facility] 01-16-2024 10:11-0400 Systolic blood pressure 98 mm[Hg] Dajuan Eric MD Work Phone: [facility] 09-22-2023 11:29-0400 Body temperature 97.39 [degF] Dajuan Eric MD Work Phone: [facility] 09-22-2023 11:29-0400 Body weight 67.13 kg Dajuan Eric MD Work Phone: [facility] 09-22-2023 11:29-0400 Diastolic blood pressure 70 mm[Hg] Dajuan Eric MD Work Phone: [facility] 09-22-2023 11:29-0400 Heart rate 56 /min Dajuan Eric MD Work Phone: [facility] 09-22-2023 11:29-0400 Respiratory rate 16 /min Dajuan Eric MD Work Phone: [facility] 09-22-2023 11:29-0400 SaO2% (BldA) [Mass fraction] 94 % Dajuan Eric MD Work Phone: [facility] 09-22-2023 11:29-0400 Systolic blood pressure 104 mm[Hg] Dajuan Eric MD Work Phone: [facility] 09-15-2023 09:44-0400 Body temperature 97.3 [degF] Dajuan Eric MD Work Phone: [facility] 09-15-2023 09:44-0400 Body weight 67.13 kg Dajuan Eric MD Work Phone: [facility] 09-15-2023 09:44-0400 Diastolic blood pressure 78 mm[Hg] Dajuan Eric MD Work Phone: [facility] 09-15-2023 09:44-0400 Heart rate 57 /min Dajuan Eric MD Work Phone: [facility] 09-15-2023 09:44-0400 Respiratory rate 16 /min Dajuan Eric MD Work Phone: [facility] 09-15-2023 09:44-0400 SaO2% (BldA) [Mass fraction] 92 % Dajuan Eric MD Work Phone: [facility] 09-15-2023 09:44-0400 Systolic blood pressure 128 mm[Hg] Dajuan Eric MD Work Phone: [facility] 06-08-2023 08:36-0500 Body height 160.[address] Dajuan Eric Work Phone: [facility] 06-08-2023 08:36-0500 Body mass index (BMI) [Ratio] 25.8 kg/m2 Dr. Dajuan Eric Work Phone: [facility] 06-08-2023 08:36-0500 Body weight 66.[address] Dajuan Eric Work Phone: [facility] 06-01-2023 15:26-0500 Diastolic blood pressure 60 mm[Hg] Dr. Dajuan Eric Work Phone: 4(368)536-283024 [place] [address] 06-01-2023 15:26-0500 Heart rate 74 /min Dr. Dajuan Eric Work Phone: 5(858)800-662124 [place] [address] 06-01-2023 15:26-0500 Respiratory rate 19 /min Dr. Dajuan Eric Work Phone: 3(707)686-358124 [place] [address] 06-01-2023 15:26-0500 Systolic blood pressure 98 mm[Hg] Dr. Dajuan Eric Work Phone: 3(256)546-967024 [place] [address] 06-01-2023 13:05-0500 SaO2% (BldA) [Mass fraction] 97 % Dr. Dajuan Eric Work Phone: 7(035)494-823424 [place] [address] 06-01-2023 09:35-0500 Body height 160.[address] Dajuan Eric Work Phone: 8(539)514-630124 [place] [address] 06-01-2023 09:35-0500 Body temperature 97.1 [degF] Dr. Dajuan Eric Work Phone: 2(501)934-808624 [place] [address] 06-01-2023 08:33-0500 Body mass index (BMI) [Ratio] 25.9 kg/m2 Dr. Dajuan Eric Work Phone: 4(384)284-881724 [place] [address] 06-01-2023 08:33-0500 Body weight 64.[address] Dajuan Eric Work Phone: 3(401)656-098424 [place] [address] 06-01-2023 08:33-0500 Diastolic blood pressure 72 mm[Hg] Dr. Dajuan Eric Work Phone: 4(048)918-619224 [place] [address] 06-01-2023 08:33-0500 Heart rate 96 /min Dr. Dajuan Eric Work Phone: 8(215)466-912224 [place] [address] 06-01-2023 08:33-0500 Respiratory rate 16 /min Dr. Dajuan Eric Work Phone: 7(806)586-071724 [place] [address] 06-01-2023 08:33-0500 Systolic blood pressure 110 mm[Hg] Dr. Dajuan Eric Work Phone: [facility] 02-22-2023 09:42-0400 Body temperature 98.29 [degF] Cindy Palmer APRN.TECHNICAL SERVICES COORDINATOR Work Phone: [facility] 02-22-2023 09:42-0400 Body weight 65.41 kg Cindy Palmer APRN.TECHNICAL SERVICES COORDINATOR Work Phone: [facility] 02-22-2023 09:42-0400 Diastolic blood pressure 76 mm[Hg] Cindy Palmer APRN.TECHNICAL SERVICES COORDINATOR Work Phone: [facility] 02-22-2023 09:42-0400 Heart rate 86 /min Cindy Palmer APRN.TECHNICAL SERVICES COORDINATOR Work Phone: [facility] 02-22-2023 09:42-0400 Respiratory rate 18 /min Cindy Palmer APRN.TECHNICAL SERVICES COORDINATOR Work Phone: [facility] 02-22-2023 09:42-0400 SaO2% (BldA) [Mass fraction] 96 % Cindy Palmer APRN.TECHNICAL SERVICES COORDINATOR Work Phone: [facility] 02-22-2023 09:42-0400 Systolic blood pressure 116 mm[Hg] Cindy Palmer APRN.TECHNICAL SERVICES COORDINATOR Work Phone: [facility] 01-24-2023 10:00-0400 Body height 161 cm Kayce Older BAG WORKER.TECHNICAL SERVICES COORDINATOR Work Phone: [facility] 01-24-2023 10:00-0400 Body weight 64.86 kg Kayce Older BAG WORKER.TECHNICAL SERVICES COORDINATOR Work Phone: [facility] 01-24-2023 10:00-0400 Diastolic blood pressure 72 mm[Hg] Kayce Older BAG WORKER.TECHNICAL SERVICES COORDINATOR Work Phone: [facility] 01-24-2023 10:00-0400 Heart rate 80 /min Kayce Older BAG WORKER.TECHNICAL SERVICES COORDINATOR Work Phone: [facility] 01-24-2023 10:00-0400 Respiratory rate 18 /min Kayce Older BAG WORKER.TECHNICAL SERVICES COORDINATOR Work Phone: [facility] 01-24-2023 10:00-0400 Systolic blood pressure 114 mm[Hg] Kayce Older BAG WORKER.TECHNICAL SERVICES COORDINATOR Work Phone: [facility] 01-20-2023 07:46-0400 Body height 157.[address] Dajuan Eric Work Phone: [facility] 01-20-2023 07:46-0400 Body mass index (BMI) [Ratio] 26.5 kg/m2 Dr. Dajuan Eric Work Phone: 4(579)468-409664 [place] [address] 01-20-2023 07:46-0400 Body temperature 97.6 [degF] Dr. Dajuan Eric Work Phone: [facility] 01-20-2023 07:46-0400 Body weight 65.[address] Dajuan Eric Work Phone: 4(332)886-244364 [place] [address] 01-20-2023 07:46-0400 Diastolic blood pressure 60 mm[Hg] Dr. Dajuan Eric Work Phone: 8(485)720-432964 [place] [address] 01-20-2023 07:46-0400 Heart rate 74 /min Dr. Dajuan Eric Work Phone: [facility] 01-20-2023 07:46-0400 Respiratory rate 18 /min Dr. Dajuan Eric Work Phone: [facility] 01-20-2023 07:46-0400 SaO2% (BldA) [Mass fraction] 95 % Dr. Dajuan Eric Work Phone: [facility] 01-20-2023 07:46-0400 Systolic blood pressure 101 mm[Hg] Dr. Dajuan Eric Work Phone: 4(488)135-968164 [place] [address] 01-03-2023 16:35-0400 Body mass index (BMI) [Ratio] 26.3 kg/m2 Dr. Dajuan Eric Work Phone: 9(030)713-395564 [place] [address] 01-03-2023 16:35-0400 Body temperature 98.4 [degF] Dr. Dajuan Eric Work Phone: 5(600)832-568364 [place] [address] 01-03-2023 16:35-0400 Body weight 65.[address] Dajuan Eric Work Phone: 8(873)688-023764 [place] [address] 01-03-2023 16:35-0400 Diastolic blood pressure 64 mm[Hg] Dr. Dajuan Eric Work Phone: 1(832)195-573964 [place] [address] 01-03-2023 16:35-0400 Heart rate 78 /min Dr. Dajuan Eric Work Phone: 1(438)272-896064 [place] [address] 01-03-2023 16:35-0400 Respiratory rate 16 /min Dr. Dajuan Eric Work Phone: 6(111)212-779364 [place] [address] 01-03-2023 16:35-0400 SaO2% (BldA) [Mass fraction] 99 % Dr. Dajuan Erci Work Phone: 4(582)224-305864 [place] [address] 01-03-2023 16:35-0400 Systolic blood pressure 122 mm[Hg] Dr. Dajuan Eric Work Phone: 2(823)689-642264 [place] [address] 12-26-2022 10:50-0400 Body temperature 96.91 [degF] Filippo Boggs MD Work Phone: [facility] 12-26-2022 10:50-0400 Body weight 66.77 kg Filippo Boggs MD Work Phone: [facility] 12-26-2022 10:50-0400 Diastolic blood pressure 80 mm[Hg] Filippo Boggs MD Work Phone: [facility] 12-26-2022 10:50-0400 Heart rate 68 /min Fiilppo Boggs MD Work Phone: [facility] 12-26-2022 10:50-0400 Respiratory rate 21 /min Filippo Boggs MD Work Phone: [facility] 12-26-2022 10:50-0400 SaO2% (BldA) [Mass fraction] 98 % Filippo Boggs MD Work Phone: [facility] 12-26-2022 10:50-0400 Systolic blood pressure 120 mm[Hg] Filippo Boggs MD Work Phone: [facility] 12-21-2022 08:29-0400 Body height 157.[address] Dajuan Eric Work Phone: 5(622)926-271764 [place] [address] 12-21-2022 08:29-0400 Body mass index (BMI) [Ratio] 26.5 kg/m2 Dr. Dajuan Eric Work Phone: 6(346)252-632224 [place] [address] 12-21-2022 08:29-0400 Body weight 65.[address] Dajuan Eric Work Phone: 4(760)694-042624 [place] [address] 12-21-2022 08:29-0400 Diastolic blood pressure 70 mm[Hg] Dr. Dajuan Eric Work Phone: 9(276)193-365124 [place] [address] 12-21-2022 08:29-0400 Heart rate 81 /min Dr. Dajuan Eric Work Phone: 9(190)856-562524 [place] [address] 12-21-2022 08:29-0400 Respiratory rate 16 /min Dr. Dajuan Eric Work Phone: 1(738)680-084924 [place] [address] 12-21-2022 08:29-0400 SaO2% (BldA) [Mass fraction] 95 % Dr. Dajuan Eric Work Phone: 1(505)745-063264 [place] [address] 12-21-2022 08:29-0400 Systolic blood pressure 108 mm[Hg] Dr. Dajuan Eric Work Phone: 7(707)961-236624 [place] [address] 10-15-2022 17:38-0400 Diastolic blood pressure 73 mm[Hg] Dr. Dajuan Eric Work Phone: 0(543)541-276524 [place] [address] 10-15-2022 17:38-0400 Heart rate 66 /min Dr. Dajuan Eric Work Phone: 4(550)428-806424 [place] [address] 10-15-2022 17:38-0400 Respiratory rate 16 /min Dr. Dajuan Eric Work Phone: 4(832)727-575264 [place] [address] 10-15-2022 17:38-0400 SaO2% (BldA) [Mass fraction] 95 % Dr. Dajuan Eric Work Phone: 0(133)772-754824 [place] [address] 10-15-2022 17:38-0400 Systolic blood pressure 96 mm[Hg] Dr. Dajaun Eric Work Phone: 9(144)846-040324 [place] [address] 10-15-2022 14:15-0400 Body height 157.[address] Dajuan Eric Work Phone: 6(810)081-983624 [place] [address] 10-15-2022 14:15-0400 Body mass index (BMI) [Ratio] 29.1 kg/m2 Dr. Dajuan Eric Work Phone: 5(664)233-084824 [place] [address] 10-15-2022 14:15-0400 Body temperature 97.5 [degF] Dr. Dajuan Eric Work Phone: 6(948)099-443024 [place] [address] 10-15-2022 14:15-0400 Body weight 72.[address] Dajuan Eric Work Phone: 8(684)239-237124 [place] [address] 10-05-2022 13:17-0400 Body mass index (BMI) [Ratio] 27.8 kg/m2 Dr. Dajuan Eric Work Phone: 6(962)486-879524 [place] [address] 10-05-2022 13:17-0400 Body weight 71.[address] Dajuan Eric Work Phone: 0(721)754-298024 [place] [address] 10-05-2022 13:17-0400 Diastolic blood pressure 55 mm[Hg] Dr. Dajuan Eric Work Phone: 8(341)871-116124 [place] [address] 10-05-2022 13:17-0400 Heart rate 64 /min Dr. Dajuan Eric Work Phone: 5(886)061-190224 [place] [address] 10-05-2022 13:17-0400 Respiratory rate 18 /min Dr. Dajuan Eric Work Phone: 1(440)672-858324 [place] [address] 10-05-2022 13:17-0400 Systolic blood pressure 99 mm[Hg] Dr. Dajuan Eric Work Phone: 7(657)822-638924 [place] [address] 09-19-2022 09:12-0400 Body mass index (BMI) [Ratio] 27.3 kg/m2 Dr. Dajuan Eric Work Phone: 3(467)566-176224 [place] [address] 09-19-2022 09:12-0400 Body temperature 95.8 [degF] Dr. Dajuan Eric Work Phone: 3(999)767-596624 [place] [address] 09-19-2022 09:12-0400 Body weight 69.[address] Dajuan Eric Work Phone: 0(899)527-640524 [place] [address] 09-19-2022 09:12-0400 Diastolic blood pressure 75 mm[Hg] Dr. Dajuan Eric Work Phone: 0(597)476-456524 [place] [address] 09-19-2022 09:12-0400 Heart rate 92 /min Dr. Dajuan Eric Work Phone: 4(339)630-069624 [place] [address] 09-19-2022 09:12-0400 Respiratory rate 18 /min Dr. Dajuan Eric Work Phone: 6(123)460-978324 [place] [address] 09-19-2022 09:12-0400 SaO2% (BldA) [Mass fraction] 95 % Dr. Dajuan Eric Work Phone: 6(165)165-804824 [place] [address] 09-19-2022 09:12-0400 Systolic blood pressure 120 mm[Hg] Dr. Dajuan Eric Work Phone: 0(318)216-229124 [place] [address] 08-19-2022 22:00-0500 Diastolic blood pressure 73 mm[Hg] Dr. Dajuan Eric Work Phone: 6(811)452-468324 [place] [address] 08-19-2022 22:00-0500 Heart rate 69 /min Dr. Dajuan Eric Work Phone: 2(857)417-487224 [place] [address] 08-19-2022 22:00-0500 Respiratory rate 15 /min Dr. Dajuan Eric Work Phone: 7(281)967-582324 [place] [address] 08-19-2022 22:00-0500 SaO2% (BldA) [Mass fraction] 98 % Dr. Dajuan Eric Work Phone: [facility] 08-19-2022 22:00-0500 Systolic blood pressure 124 mm[Hg] Dr. Dajuan Eric Work Phone: [facility] 08-19-2022 20:22-0500 Body temperature 97.2 [degF] Dr. Dajuan Eric Work Phone: [facility] 08-19-2022 20:20-0500 Body height 160.[address] Dajuan Eric Work Phone: [facility] 08-19-2022 20:20-0500 Body mass index (BMI) [Ratio] 29.7 kg/m2 Dr. Dajuan Eric Work Phone: [facility] 08-19-2022 20:20-0500 Body weight [address] Dajuan Eric Work Phone: [facility] 05-25-2022 10:55-0500 Body temperature 97.39 [degF] Dajuan Eric MD Work Phone: [facility] 05-25-2022 10:55-0500 Body weight 72.12 kg Dajuan Eric MD Work Phone: [facility] 05-25-2022 10:55-0500 Diastolic blood pressure 74 mm[Hg] Dajuan Eric MD Work Phone: [facility] 05-25-2022 10:55-0500 Heart rate 104 /min Dajuan Eric MD Work Phone: [facility] 05-25-2022 10:55-0500 Respiratory rate 12 /min Dajuan Eric MD Work Phone: [facility] 05-25-2022 10:55-0500 Systolic blood pressure 120 mm[Hg] Dajuan Eric MD Work Phone: [facility] 04-06-2022 09:21-0400 Body height 160 cm Dajuan Eric MD Work Phone: [facility] 04-06-2022 09:21-0400 Body temperature 98.01 [degF] Dajuan Eric MD Work Phone: [facility] 04-06-2022 09:21-0400 Body weight 69.85 kg Dajuan Eric MD Work Phone: [facility] 04-06-2022 09:21-0400 Diastolic blood pressure 74 mm[Hg] Dajuan Eric MD Work Phone: [facility] 04-06-2022 09:21-0400 Respiratory rate 14 /min Dajuan Eric MD Work Phone: [facility] 04-06-2022 09:21-0400 Systolic blood pressure 118 mm[Hg] Dajuan Eric MD Work Phone: [facility] 01-04-2022 11:38-0400 Diastolic blood pressure 74 mm[Hg] Kayce Older BAG WORKER.TECHNICAL SERVICES COORDINATOR Work Phone: [facility] 01-04-2022 11:38-0400 Systolic blood pressure 116 mm[Hg] Kayce Older BAG WORKER.TECHNICAL SERVICES COORDINATOR Work Phone: [facility] 01-04-2022 11:23-0400 Body height 160.7 cm Kayce Older BAG WORKER.TECHNICAL SERVICES COORDINATOR Work Phone: [facility] 01-04-2022 11:23-0400 Body weight 71.67 kg Kayce Older BAG WORKER.TECHNICAL SERVICES COORDINATOR Work Phone: [facility] 01-04-2022 11:23-0400 Heart rate 88 /min Kayce Older BAG WORKER.TECHNICAL SERVICES COORDINATOR Work Phone: [facility] 01-04-2022 11:23-0400 Respiratory rate 16 /min Kayce Older BAG WORKER.TECHNICAL SERVICES COORDINATOR Work Phone: [facility] 10-18-2021 11:43-0400 Body temperature 98.1 [degF] Maci Alegria PA-C Work Phone: [facility] 10-18-2021 11:43-0400 Body weight 72.03 kg Maci Athy PA-C Work Phone: [facility] 10-18-2021 11:43-0400 Diastolic blood pressure 68 mm[Hg] Maci Athy PA-C Work Phone: [facility] 10-18-2021 11:43-0400 Heart rate 100 /min Maci Athy PA-C Work Phone: [facility] 10-18-2021 11:43-0400 Respiratory rate 21 /min Maci Athy PA-C Work Phone: [facility] 10-18-2021 11:43-0400 SaO2% (BldA) [Mass fraction] 98 % Maci Athy PA-C Work Phone: [facility] 10-18-2021 11:43-0400 Systolic blood pressure 118 mm[Hg] Maci Athy PA-C Work Phone: [facility] 10-13-2021 17:30-0400 Diastolic blood pressure 68 mm[Hg] [facility] Work Phone: 10-13-2021 17:30-0400 Heart rate 77 /min [facility] Work Phone: 10-13-2021 17:30-0400 Respiratory rate 16 /min [facility] Work Phone: 10-13-2021 17:30-0400 SaO2% (BldA) [Mass fraction] 95 % [facility] Work Phone: 10-13-2021 17:30-0400 Systolic blood pressure 102 mm[Hg] [facility] Work Phone: 10-13-2021 16:24-0400 Body height 162.56 cm [facility] Work Phone: 10-13-2021 16:24-0400 Body mass index (BMI) [Ratio] 28.4 kg/m2 [facility] Work Phone: 10-13-2021 16:24-0400 Body temperature 97.2 [degF] [facility] Work Phone: 10-13-2021 16:24-0400 Body weight 75.2 kg [facility] Work Phone: 10-07-2021 08:51-0400 Body temperature 98.01 [degF] Emiliana Dahlhausen BAG WORKER.TECHNICAL SERVICES COORDINATOR Work Phone: [facility] 10-07-2021 08:51-0400 Body weight 71.67 kg Emiliana Dahlhausen BAG WORKER.TECHNICAL SERVICES COORDINATOR Work Phone: [facility] 10-07-2021 08:51-0400 Diastolic blood pressure 82 mm[Hg] Emiliana Dahlhausen BAG WORKER.TECHNICAL SERVICES COORDINATOR Work Phone: [facility] 10-07-2021 08:51-0400 Heart rate 106 /min Emiliana Dahlhausen BAG WORKER.TECHNICAL SERVICES COORDINATOR Work Phone: [facility] 10-07-2021 08:51-0400 Respiratory rate 18 /min Emiliana Dahlhausen BAG WORKER.TECHNICAL SERVICES COORDINATOR Work Phone: [facility] 10-07-2021 08:51-0400 SaO2% (BldA) [Mass fraction] 97 % Emiliana Dahlhausen BAG WORKER.TECHNICAL SERVICES COORDINATOR Work Phone: [facility] 10-07-2021 08:51-0400 Systolic blood pressure 132 mm[Hg] Emiliana Dahlhausen BAG WORKER.TECHNICAL SERVICES COORDINATOR Work Phone: [facility] 10-05-2021 11:17-0400 Body temperature 97.39 [degF] Dajuan Eric MD Work Phone: [facility] 10-05-2021 11:17-0400 Body weight 72.3 kg Dajuan Eric MD Work Phone: [facility] 10-05-2021 11:17-0400 Diastolic blood pressure 74 mm[Hg] Dajuan Eric MD Work Phone: [facility] 10-05-2021 11:17-0400 Heart rate 92 /min Dajuan Eric MD Work Phone: [facility] 10-05-2021 11:17-0400 Respiratory rate 12 /min Dajuan Eric MD Work Phone: [facility] 10-05-2021 11:17-0400 SaO2% (BldA) [Mass fraction] 96 % Dajuan Eric MD Work Phone: [facility] 10-05-2021 11:17-0400 Systolic blood pressure 120 mm[Hg] Dajuan Eric MD Work Phone: [facility] 09-27-2021 09:01-0400 Body weight 72.12 kg Taylor Alfonso APRN.TECHNICAL SERVICES COORDINATOR Work Phone: [facility] 09-27-2021 09:01-0400 Diastolic blood pressure 80 mm[Hg] Taylor Alfonso APRN.TECHNICAL SERVICES COORDINATOR Work Phone: [facility] 09-27-2021 09:01-0400 Heart rate 117 /min Taylor Alfonso APRN.TECHNICAL SERVICES COORDINATOR Work Phone: [facility] 09-27-2021 09:01-0400 SaO2% (BldA) [Mass fraction] 96 % Taylor Alfonso APRN.TECHNICAL SERVICES COORDINATOR Work Phone: [facility] 09-27-2021 09:01-0400 Systolic blood pressure 118 mm[Hg] Taylor Alfonso APRN.TECHNICAL SERVICES COORDINATOR Work Phone: [facility] 09-07-2021 11:37-0400 Diastolic blood pressure 71 mm[Hg] Dajuan Eric MD Work Phone: [facility] 09-07-2021 11:37-0400 Heart rate 102 /min Dajuan Eric MD Work Phone: [facility] 09-07-2021 11:37-0400 Systolic blood pressure 108 mm[Hg] Dajuan Eric MD Work Phone: [facility] 09-07-2021 11:24-0400 Body height 162.6 cm Dajuan Eric MD Work Phone: [facility] 09-07-2021 11:24-0400 Body temperature 97.9 [degF] Dajuan Eric MD Work Phone: [facility] 09-07-2021 11:24-0400 Body weight 68.95 kg Dajuan Eric MD Work Phone: [facility] 09-07-2021 11:24-0400 Respiratory rate 16 /min Dajuan Eric MD Work Phone: [facility] 06-25-2021 14:48-0500 Diastolic blood pressure 74 mm[Hg] [facility] Work Phone: 06-25-2021 14:48-0500 Heart rate 81 /min [facility] Work Phone: 06-25-2021 14:48-0500 Respiratory rate 16 /min [facility] Work Phone: 06-25-2021 14:48-0500 SaO2% (BldA) [Mass fraction] 96 % [facility] Work Phone: 06-25-2021 14:48-0500 Systolic blood pressure 128 mm[Hg] [facility] Work Phone: 06-25-2021 12:49-0500 Body mass index (BMI) [Ratio] 25.7 kg/m2 [facility] Work Phone: 06-25-2021 12:49-0500 Body temperature 98.2 [degF] [facility] Work Phone: 06-25-2021 12:49-0500 Body weight 67.9 kg [facility] Work Phone: 06-16-2021 20:46-0500 Diastolic blood pressure 66 mm[Hg] [facility] Work Phone: 06-16-2021 20:46-0500 Heart rate 91 /min [facility] Work Phone: 06-16-2021 20:46-0500 Respiratory rate 16 /min [facility] Work Phone: 06-16-2021 20:46-0500 SaO2% (BldA) [Mass fraction] 96 % [facility] Work Phone: 06-16-2021 20:46-0500 Systolic blood pressure 121 mm[Hg] [facility] Work Phone: 06-16-2021 17:13-0500 Body mass index (BMI) [Ratio] 26.7 kg/m2 [facility] Work Phone: 06-16-2021 17:13-0500 Body temperature 99.4 [degF] [facility] Work Phone: 06-16-2021 17:13-0500 Body weight 70.76 kg [facility] Work Phone: Encounters Encounter Date Encounter Type Care Provider Facility Start: 03-02-2025 ambulatory Dajuan HALE Facility:[facility] Start: 02-27-2025 End: 02-27-2025 Patient encounter procedure Anthony Juarez NP-Elijah -[facility] Work Phone: Start: 02-27-2025 End: 02-27-[address] Dajuan Eric MD Work Phone: -[facility] Start: 01-23-2025 End: 01-23-2025 Follow-up encounter Dajuan Eric MD Work Phone: [facility] [place] Start: 01-16-2025 End: 01-16-2025 ambulatory DAJUAN ERIC Facility:[facility] Start: 01-16-2025 End: 01-16-2025 ambulatory DAJUAN ERIC Facility:[facility] Start: 01-16-2025 Patient encounter procedure DAJUAN ERIC [facility] Start: 12-18-2024 End: 12-19-2024 Telephone encounter Dajuan Eric MD Work Phone: [facility] [place] Comment on above: Results Start: 12-18-2024 End: 12-18-[address] Dajuan Eric MD Work Phone: -[facility] Start: 12-18-2024 End: 12-18-[address] Dajuan Eric MD -[facility] Work Phone: Start: 12-18-2024 End: 12-18-2024 ambulatory Dajuan Eric Facility:[facility] Start: 12-04-2024 End: 12-04-2024 Patient encounter procedure Di ISBELL -[facility] Work Phone: Start: 12-04-2024 End: 12-04-[address] Dajuan Eric MD Work Phone: [facility] [employer] Work Phone: Start: 12-02-2024 End: 12-02-[address] Gio Villalba MD -[facility] Start: 12-02-2024 End: 12-02-[address] Dajuan Eric MD Work Phone: [place] [facility] Work Phone: Start: 11-21-2024 ambulatory Dajuan Florence ty:[facility] Start: 11-18-2024 End: 11-19-2024 Telephone encounter Dajuan Eric MD Work Phone: [facility] [place] Comment on above: Patient Question Start: 11-13-2024 ambulatory Dajuan Florence ty:[facility] Start: 11-12-2024 End: 11-12-2024 Telephone encounter Dajuan Eric MD Work Phone: [facility] [place] Comment on above: Orders Start: 11-06-2024 End: 11-06-2024 Office outpatient visit 25 minutes Dajuan Eric MD Work Phone: [facility] [place] Comment on above: Articulatory dysprax ia (Primary Dx); Cervical radiculopathy; Lumbar radiculopathy; Mild intermittent asthma without complication ([facility]); Dizziness, nonspecific; Acute non-recurrent maxillary sinusitis; PAF (paroxysmal atrial fibrillation) ([facility]) Start: 11-06-2024 End: 11-06-2024 ambulatory DAJUAN ERIC Facility:[facility] Start: 10-10-2024 End: 10-10-2024 Patient encounter procedure Jodie ISBELL -[facility] Work Phone: Start: 10-10-2024 End: 10-10-2024 ambulatory Jodie ISBELL [facility] Start: 10-03-2024 End: 10-03-[address] Dajuan Eric MD Work Phone: [facility] Work Phone: Start: 10-03-2024 End: 10-03-[address] Marisel Carter MD -Laboratory Work Phone: Start: 10-03-2024 End: 10-03-2024 ambulatory Mairsel Carter Facility:[facility] Start: 09-26-2024 End: 09-26-2024 Patient encounter procedure Jodie ISBELL -[facility] Work Phone: Start: 09-26-2024 End: 09-26-2024 ambulatory Dajuan Eric Facility[facility] Start: 09-20-2024 End: 09-20-2024 Patient encounter procedure CARSON Matthew [facility] Pulmonary [facility] Work Phone: Start: 09-20-2024 End: 09-20-2024 ambulatory Dajuan Eric Facility:[facility] Start: 09-17-2024 ambulatory Dajuan HALE Facility:[facility] Start: 09-17-2024 Registered Referred Dajuan Eric MD -[facility] Work Phone: Start: 09-16-2024 End: 09-17-2024 Telephone encounter Dajuan Eric MD Work Phone: [facility] Comment on above: Dysuria Start: 09-13-2024 End: 09-13-2024 ambulatory DAJUAN ERIC Facility:[facility] Start: 09-13-2024 End: 09-13-2024 Office outpatient visit 25 minutes Dajuan Eric MD Work Phone: [facility] [place] Comment on above: Atrial fibrillation with RVR (HCC) (Primary Dx); PAF (paroxysmal atrial fibrillation) (HCC); Type 2 diabetes mellitus with diabetic neuropathy, without long-term current use of insulin (HCC); Cervical radiculopathy; Lumbar radiculopathy; Gastroesophageal reflux disease, unspecified whether esophagitis present; Mild intermittent asthma without complication ([facility]) Start: 09-10-2024 ambulatory Chio Landeros ty:[facility] Start: 09-06-2024 Non-patient / Non-visit Dr. Karine Naranjo -[facility] Work Phone: Start: 09-06-2024 Non-patient / Non-visit Dr. John watts MD -[facility] Start: 09-05-2024 End: 09-06-2024 ambulatory Karine Naranjo Facility:[facility] Start: 09-05-2024 End: 09-06-2024 Evaluation and management of inpatient Dr. Jairo Ram DO [facility] Work Phone: Start: 09-05-2024 End: 09-06-[address] Dajuan Eric MD Work Phone: [facility] Work Phone: Start: 09-04-2024 End: 09-04-2024 Departed Referred Dajuan Eric MD -[facility] Work Phone: Start: 09-04-2024 Registered Referred Dajuan Eric MD -[facility] Work Phone: Start: 09-04-2024 End: 09-04-2024 ambulatory Dajuan HALE Facility:[facility] Start: 09-02-2024 Non-patient / Non-visit Dr. Rafi najera DO -[facility] Start: 09-02-2024 End: 09-02-[address] Dajuan Eric MD Work Phone: [facility] Work Phone: Start: 09-02-2024 End: 09-02-2024 Patient encounter procedure PREDATOR CONTROL TRAPPER Chio Matthew -Pulmonary Services/Neurology Work Phone: Start: 09-02-2024 End: 09-02-2024 ambulatory Chio Matthew Facility:[facility] Start: 08-27-2024 End: 08-27-2024 Patient encounter procedure Anthony Juarez PREDATOR CONTROL TRAPPER-C -[facility] Work Phone: Start: 08-27-2024 End: 08-27-[address] Dajuan Eric MD Work Phone: [facility] Work Phone: Start: 08-27-2024 End: 08-27-2024 ambulatory Anthony Juarez NP Facility:[facility] Start: 08-03-2024 End: 08-03-2024 ambulatory DAJUAN ERIC Facility:[facility] Start: 08-03-2024 End: 08-03-2024 Patient encounter procedure Thompson Pedraza TECHNICAL SERVICES COORDINATOR Work Phone: [facility] Comment on above: Foot pain, bilateral (Primary Dx) Start: 07-26-2024 End: 07-26-2024 Patient encounter procedure CARSON Matthew -[facility] Work Phone: Start: 07-26-2024 End: 07-26-2024 ambulatory Dajuan Eric Facility:[facility] Start: 07-24-2024 End: 08-09-2024 Telephone encounter Dajuan Eric MD Work Phone: [facility] [place] Comment on above: Pre-Op Exam Start: 07-23-2024 ambulatory Gio Villalba Facility:[facility] Start: 07-23-2024 Non-patient / Non-visit Dr. Kwesi WELSH -[facility] Start: 07-23-2024 End: 07-23-2024 Patient encounter procedure Anthony Juarez PREDATOR CONTROL TRAPPER-C -Cardiovascular Services Work Phone: Start: 07-23-2024 End: 07-23-2024 ambulatory Anthony Juarez NP Facility:[facility] Start: 07-22-2024 End: 09-21-2024 Follow-up encounter Dajuan Eric MD Work Phone: [facility] [place] Start: 07-18-2024 End: 07-18-2024 ambulatory DAJUAN ERIC Facility:[facility] Start: 07-18-2024 End: 07-18-2024 Office outpatient visit 25 minutes Dajuan Eric MD Work Phone: [facility] [place] Comment on above: Mild intermittent as thma without complication (Primary Dx); Chronic diastolic CHF (congestive heart failure) ([facility]); Mixed hyperlipidemia; Type 2 diabetes mellitus with diabetic neuropathy, without long-term current use of insulin (HCC); PAF (paroxysmal atrial fibrillation) ([facility]); Dizziness, nonspecific; Cervical radiculopathy; Hypothyroidism, unspecified type; Vitamin D deficiency; Subacute sinusitis, unspecified location Start: 07-08-2024 End: 07-09-2024 Telephone encounter Dajuan Eric MD Work Phone: [facility] [place] Comment on above: Results Start: 07-08-2024 End: 07-08-[address] Saji Parker MD -[facility] Work Phone: Start: 07-08-2024 End: 07-08-2024 ambulatory Dajuan Eric Facility:[facility] Start: 06-25-2024 End: 06-25-2024 Patient encounter procedure Di ISBELL -[facility] Work Phone: Start: 06-25-2024 End: 06-25-2024 ambulatory Dajuan Eric Facility:[facility] Start: 06-04-2024 End: 06-04-2024 Patient encounter procedure Anthony Juarez NP-C -Radiology, [facility] Work Phone: Start: 06-04-2024 End: 06-04-2024 Patient encounter procedure Anthony Juarez NP-C -[facility] Work Phone: Start: 06-04-2024 End: 06-04-2024 ambulatory Anthony H Roof PREDATOR CONTROL TRAPPER [facility] Start: 06-04-2024 End: 06-04-2024 ambulatory Anthony H Roof PREDATOR CONTROL TRAPPER Facility:[facility] Start: 05-29-2024 End: 05-29-2024 Telephone encounter Dajuan Eric MD Work Phone: [facility] [place] Comment on above: Orders Start: 05-13-2024 End: 05-13-2024 Departed Referred Dajuan Eric MD -[facility] Work Phone: Start: 05-13-2024 End: 05-13-2024 ambulatory Dajuan Eric Facility:[facility] Start: 04-29-2024 End: 04-29-2024 [facility] Start: 04-16-2024 End: 04-16-2024 Refill Dajuan Eric MD Work Phone: [facility] [place] Comment on above: Refill Request Start: 04-10-2024 End: 04-10-2024 ambulatory Dajuan Eric [facility] Start: 04-09-2024 End: 04-09-2024 ambulatory DAJUAN ERIC Facility:[facility] Start: 04-09-2024 End: 04-09-2024 Office outpatient visit 25 minutes Dajuan Eric MD Work Phone: [facility] [place] Comment on above: Acute non-recurrent sinusitis, unspecified location (Primary Dx); Cervical radiculopathy; Lumbar radiculopathy; Mixed incontinence; Need for influenza vaccination Start: 03-27-2024 End: 03-27-2024 ambulatory DAJUAN ERIC Facility:[facility] Start: 03-27-2024 End: 03-27-2024 Office outpatient visit 25 minutes Scotty Baez APRN.CNP Work Phone: [facility] Comment on above: Bacterial sinusitis (Primary Dx) Start: 03-25-2024 End: 03-25-2024 Telephone encounter Dajuan Eric MD Work Phone: [facility] [place] Comment on above: Sinusitis Start: 03-13-2024 End: 03-18-2024 ambulatory Dajuan Eric MD Work Phone: [facility] [place] Start: 02-26-2024 End: 02-26-2024 Telephone encounter Honey Holguin APRN.TECHNICAL SERVICES COORDINATOR Work Phone: [facility] Comment on above: Results Start: 02-23-2024 End: 02-23-2024 Telephone encounter Honey Holguin APRN.TECHNICAL SERVICES COORDINATOR Work Phone: [facility] Comment on above: Results Start: 02-23-2024 End: 02-23-2024 Subsequent hospital visit by physician Raul [facility] Work Phone: Radiology Comment on above: SOB (shortness of br eath) [R06.02] Start: 02-23-2024 End: 02-23-2024 Patient encounter procedure Honey Holguin APRN.TECHNICAL SERVICES COORDINATOR Work Phone: [facility] Comment on above: Sore throat (Primary Dx); Generalized weakness; Frequent falls; SOB (shortness of breath); SEYMOUR (dyspnea on exertion) Start: 02-23-2024 End: 02-23-2024 ambulatory DAJUAN ERIC Facility:[facility] Start: 01-16-2024 End: 01-16-2024 Patient encounter procedure Dajuan Eric MD Work Phone: [facility] [place] Comment on above: Medicare annual well ness visit, subsequent (Primary Dx); Type 2 diabetes mellitus with diabetic neuropathy, without long-term current use of insulin (HCC); Hypothyroidism, unspecified type; Mixed hyperlipidemia; Chronic diastolic CHF (congestive heart failure) ([facility]); Mild intermittent asthma without complication; Need for COVID-19 vaccine; Osteopenia, unspecified location Start: 12-13-2023 Telephone encounter Dajuan jasmine MD Work Phone: [facility] [place] Comment on above: Orders Start: 09-28-2023 Telephone encounter Dajuan jasmine MD Work Phone: [facility] [place] Comment on above: Forms Start: 09-22-2023 End: 09-22-2023 Patient encounter procedure Dajuan Eric MD Work Phone: [facility] [place] Comment on above: Cognitive decline (P rimary Dx); Falls frequently; Chronic diastolic CHF (congestive heart failure) ([facility]); Type 2 diabetes mellitus with diabetic neuropathy, without long-term current use of insulin ([facility]); Dental infection Start: 09-18-2023 Telephone encounter Dajuan jasmine MD Work Phone: [facility] Comment on above: Results; gum swellin g; Sore Throat Start: 09-15-2023 End: 09-15-2023 Patient encounter procedure Dajuan Eric MD Work Phone: [facility] [place] Comment on above: Cognitive decline (P rimary Dx); Falls frequently; Dizziness, nonspecific; Lumbar radiculopathy; Chronic diastolic CHF (congestive heart failure) ([facility]); PAF (paroxysmal atrial fibrillation) ([facility]); Type 2 diabetes mellitus with diabetic neuropathy, without long-term current use of insulin ([facility]) Start: 07-28-2023 Refill Taylor metzger APRN.CNP Work Phone: Cardiology Comment on above: Refill Request Start: 06-15-2023 Non-patient / Non-visit Dr. Michelle Eric Work Phone: [facility] Work Phone: Start: 06-15-2023 Non-patient / Non-visit Dr. Michelle Eric Work Phone: [facility] Work Phone: Start: 06-14-2023 Non-patient / Non-visit Dr. Michelle Eric Work Phone: [facility] Start: 06-14-2023 End: 06-14-[address] Dajuan Eric Work Phone: [facility] Work Phone: Start: 06-14-2023 End: 06-14-[address] [facility] Start: 06-08-2023 End: 06-08-[address] Dajuan Eric Work Phone: [facility] Work Phone: Start: 06-01-2023 End: 06-01-2023 Emergency department patient visit Dr. Dajuan Eric Work Phone: [facility]-Emergency Department Work Phone: Start: 06-01-2023 End: 06-01-[address] Dajuan Eric Work Phone: [facility] Work Phone: Start: 05-17-2023 Refill Dajuan espinosa MD Work Phone: [facility] [place] Comment on above: Refill Request Start: 05-08-2023 Refill Dajuan espinosa MD Work Phone: [facility] [place] Comment on above: Refill Request Start: 04-13-2023 Refill Kayce GrandeTECHNICAL SERVICES COORDINATOR Work Phone: [facility] [place] Comment on above: Refill Request Start: 04-06-2023 Chart abstracting Dajuan Wahl MD Work Phone: [facility] [place] Comment on above: outside bone density Start: 04-04-2023 End: 04-04-[address] Dajuan Eric Work Phone: [facility] Work Phone: Start: 04-04-2023 End: 04-04-[address] Dajuan Eric Work Phone: [facility]-Outpatient Bone Densitometry Work Phone: Start: 03-31-2023 Telephone encounter Dajuan jasmine MD Work Phone: [facility] [place] Comment on above: Orders Start: 02-27-2023 Telephone encounter Dajuan jasmine MD Work Phone: [facility] [place] Comment on above: Results Start: 02-24-2023 Telephone encounter Taylor Silva glenny BAG WORKER.TECHNICAL SERVICES COORDINATOR Work Phone: [facility] Comment on above: Results Start: 02-22-2023 End: 02-22-2023 Patient encounter procedure Cindy Palmer BAG WORKER.TECHNICAL SERVICES COORDINATOR Work Phone: [facility] Comment on above: Skin infection (Prim jarad Dx); Abrasion Start: 01-30-2023 ambulatory Kayce Jules BAG WORKER .TECHNICAL SERVICES COORDINATOR Work Phone: [facility] [place] Comment on above: mammogram/ultrasound results Start: 01-30-2023 E-mail encounter fro m caregiver Kayce Jules BAG WORKER.TECHNICAL SERVICES COORDINATOR [facility] Start: 01-27-2023 End: 01-27-[address] Dajuan Eric Work Phone: [facility] Work Phone: Start: 01-27-2023 End: 01-27-[address] Dajuan Eric Work Phone: [facility]-Sleep Lab Work Phone: Start: 01-24-2023 End: 01-24-2023 Patient encounter procedure Kayce Jules APRN.TECHNICAL SERVICES COORDINATOR Work Phone: [facility] [place] Comment on above: Medicare annual well ness visit, subsequent (Primary Dx); Lump of axilla, right; Type 2 diabetes mellitus with diabetic neuropathy, without long-term current use of insulin (HCC); Mixed hyperlipidemia; Colon cancer screening; Hypothyroidism, unspecified type; Abnormal breast finding Start: 01-20-2023 End: 01-20-[address] Dajuan Eric Work Phone: [facility]-Pulmonary Medicine [facility] Work Phone: Start: 01-04-2023 Refill Kayce Jules APRN HarjinderTECHNICAL SERVICES COORDINATOR Work Phone: [facility] [place] Comment on above: Refill Request Start: 01-03-2023 End: 01-03-[address] Dajuan Eric Work Phone: [facility] Work Phone: Start: 12-26-2022 End: 12-26-2022 Patient encounter procedure Filippo Boggs MD Work Phone: [facility] Comment on above: Acute non-recurrent sinusitis, unspecified location (Primary Dx) Start: 12-26-2022 End: 12-26-[address] Dajuan Eric Work Phone: [facility] Work Phone: Start: 12-26-2022 End: 12-26-[address] Dajuan Eric Work Phone: [facility]-Pulmonary Services/Neurology Work Phone: Start: 12-21-2022 End: 12-21-[address] Dajuan Eric Work Phone: [facility] Work Phone: Start: 11-08-2022 Refill Dajuan espinosa MD Work Phone: [facility] [place] Comment on above: Refill Request Start: 11-02-2022 Non-patient / Non-visit Dr. Michelle Eric Work Phone: [facility] Start: 11-02-2022 End: 11-02-[address] Dajuan Eric Work Phone: [facility] Work Phone: Start: 11-02-2022 End: 11-02-[address] Dajuan Eric Work Phone: [facility]Cardi[facility] Services Start: 11-01-2022 End: 11-01-[address] Dajuan Eric Work Phone: [facility] Work Phone: Start: 11-01-2022 End: 11-01-[address] Dajuan Eric Work Phone: [facility]-Sleep [facility] Start: 10-15-2022 End: 10-15-2022 Emergency department patient visit Dr. Dajuan Eric Work Phone: [facility] [facility] Start: 10-10-2022 Refill Dajuan espinosa MD Work Phone: [facility] Comment on above: Refill Request Start: 10-05-2022 End: 10-05-2022 Admission to same day surgery center Dr. Dajuan Eric Work Phone: [facility] Start: 10-05-2022 End: 10-05-[address] Dajuan Eric Work Phone: [facility] Start: 10-05-[address] Dajuan Eric Work Phone: [facility] Start: 09-23-2022 End: 09-23-2022 Patient encounter procedure Dajuan Eric MD Work Phone: [facility] [place] Comment on above: Dizziness, nonspecif ic (Primary Dx); Anxiety and depression; Type 2 diabetes mellitus with diabetic neuropathy, without long-term current use of insulin (HCC); Hypothyroidism, unspecified type; Encounter for screening mammogram for malignant neoplasm of breast; Encounter for screening for osteoporosis; Asymptomatic postmenopausal status; Alternating constipation and diarrhea Start: 09-19-2022 End: 09-19-[address] Dajuan Eric Work Phone: [facility] Start: 09-05-2022 Refill Dajuan espinosa MD Work Phone: [facility] [place] Comment on above: Refill Request Start: 09-02-2022 End: 09-02-[address] Dajuan Eric Work Phone: [facility] Work Phone: Start: 09-02-2022 End: 09-02-[address] Dajuan Eric Work Phone: [facility] Start: 09-02-2022 End: 09-02-[address] Dajuan Eric Work Phone: [facility] Start: 08-19-2022 End: 08-19-2022 Emergency department patient visit Dr. Dajuan Eric Work Phone: [facility] Start: 07-15-2022 Refill Dajuan espinosa MD Work Phone: [facility] [place] Comment on above: Refill Request Start: 07-14-2022 Refill Dajuan espinosa MD Work Phone: [facility] [place] Comment on above: Refill Request Start: 07-04-2022 Refill Dajuan espinosa MD Work Phone: [facility] [place] Comment on above: Refill Request; Refi ll Request Start: 06-02-2022 End: 06-02-[address] Dajuan Eric Work Phone: [facility] Start: 05-25-2022 End: 05-25-2022 Patient encounter procedure Dajuan Eric MD Work Phone: [facility] [place] Comment on above: Epistaxis (Primary D x); Cervical radiculopathy; Lumbar radiculopathy; Acute nonintractable headache, unspecified headache type; PAF (paroxysmal atrial fibrillation) ([facility]) Start: 05-13-2022 Refill Dajuan espinosa MD Work Phone: [facility] [place] Comment on above: Refill Request Start: 04-06-2022 End: 04-06-2022 Patient encounter procedure Dajuan Eric MD Work Phone: [facility] [place] Comment on above: Type 2 diabetes buatista itus with diabetic neuropathy, without long-term current use of insulin ([facility]) (Primary Dx); PAF (paroxysmal atrial fibrillation) ([facility]); Chronic diastolic CHF (congestive heart failure) ([facility]); Mild intermittent asthma without complication; Need for influenza vaccination; Need for vaccination; Hypothyroidism, unspecified type; Anxiety and depression Start: 04-04-2022 Refill Dajuan espinosa MD Work Phone: [facility] [place] Comment on above: Refill Request Start: 03-25-2022 Refill Dajuan espinosa MD Work Phone: [facility] [place] Comment on above: Refill Request Start: 02-24-2022 Telephone encounter Dajuan jasmine MD Work Phone: [facility] Comment on above: Patient Update Refill Request Start: 02-17-2022 Refill Kayce Older BAG WORKER .TECHNICAL SERVICES COORDINATOR Work Phone: [facility] [place] Comment on above: Refill Request Start: 01-06-2022 Telephone encounter [place] Alfonso BAG WORKER.TECHNICAL SERVICES COORDINATOR Work Phone: Cardiology Comment on above: Patient Update Start: 01-04-2022 End: 01-04-2022 Patient encounter procedure Kayce Older BAG WORKER.TECHNICAL SERVICES COORDINATOR Work Phone: [facility] [place] Comment on above: Type 2 diabetes bautista itus with diabetic neuropathy, without long-term current use of insulin ([facility]) (Primary Dx); Screening for osteoporosis; Asymptomatic menopause Start: 12-28-2021 Refill Kayce Older BAG WORKER .TECHNICAL SERVICES COORDINATOR Work Phone: [facility] [place] Comment on above: Refill Request Start: 12-15-2021 Telephone encounter Dajuan jasmine MD Work Phone: General Surgery Comment on above: Outpatient [place] [facility] Start: 12-14-2021 End: 12-14-2021 Refill Lurdes Marie BAG WORKER.TECHNICAL SERVICES COORDINATOR Work Phone: [facility] [place] Comment on above: Refill Request Start: 12-14-2021 End: 12-14-[address] [facility] Start: 12-14-[address] Ciarra [facility] Start: 11-30-2021 ambulatory Taylortony Aparicio y BAG WORKER.TECHNICAL SERVICES COORDINATOR Work Phone: Cardiology Comment on above: Atorvastatin Calcium 20mg caplets Start: 11-28-2021 ambulatory [place] E Markus y BAG WORKER.TECHNICAL SERVICES COORDINATOR Work Phone: Cardiology Comment on above: Dobutin Echo Stress Start: 11-24-2021 Non-patient / Non-visit Dr. Michelle Eric Work Phone: [facility] Start: 11-24-2021 End: 11-24-[address] Dajuan Eric Work Phone: [facility] Start: 11-18-2021 Telephone encounter [place] Alfonso APRN.TECHNICAL SERVICES COORDINATOR Work Phone: Cardiology Comment on above: Results Start: 11-17-2021 End: 11-17-2021 Patient encounter procedure Lab [facility] Work Phone: Laboratory Medicine Comment on above: Mixed hyperlipidemia ; Type 2 diabetes mellitus with diabetic neuropathy, without long-term current use of insulin (HCC); Encounter for hepatitis C screening test for low risk patient Start: 11-11-[address] Ciarra [facility] Start: 10-28-2021 Telephone encounter [place] Alfonso APRN.TECHNICAL SERVICES COORDINATOR Work Phone: Cardiology Comment on above: Borderer - O ther Start: 10-21-2021 End: 10-21-2021 Patient encounter procedure [facility] Start: 10-18-2021 Telephone encounter Dajuan jasmine MD Work Phone: [facility] [place] Comment on above: Lab Orders Start: 10-18-2021 End: 10-18-2021 Subsequent hospital visit by physician Xr [facility] Work Phone: Radiology Comment on above: Hand injury, left, i nitial encounter [S69.92XA] Start: 10-18-2021 End: 10-18-2021 Patient encounter procedure Maci Alegria PA-C Work Phone: [facility] Comment on above: Pelvic cramping (Felicia suraj Dx); Hand injury, left, initial encounter; Visit for wound check Start: 10-17-2021 ambulatory Dajuan espinosa MD Work Phone: [facility] [place] Comment on above: Stitches in leg at [facility], on October 13. Start: 10-13-2021 End: 10-13-2021 Emergency department patient visit [facility] Start: 10-12-2021 Telephone encounter Emiliana Robins APRN.TECHNICAL SERVICES COORDINATOR Work Phone: Neurology Comment on above: Vestibular therapy Start: 10-07-2021 End: 10-07-2021 Subsequent hospital visit by physician Raul [facility] Work Phone: Radiology Comment on above: Vertigo [R42] Start: 10-07-2021 End: 10-07-2021 Patient encounter procedure Emiliana Goldman APRN.TECHNICAL SERVICES COORDINATOR Work Phone: Neurology Comment on above: Vertigo (Primary Dx) ; Transient cerebral ischemia, unspecified type; DDD (degenerative disc disease), cervical; Dizziness Start: 10-05-2021 End: 10-05-2021 Patient encounter procedure Dajuan Eric MD Work Phone: [facility] [place] Comment on above: Encounter for hepati tis C screening test for low risk patient (Primary Dx); Mild intermittent asthma without complication; Type 2 diabetes mellitus with diabetic neuropathy, without long-term current use of insulin (HCC) Start: 09-29-2021 End: 09-29-2021 Subsequent hospital visit by physician Screen Mammo [facility] Comment on above: Encounter for screen ing mammogram for malignant neoplasm of breast [Z12.31] Start: 09-28-2021 Refill Dajuan espinosa MD Work Phone: [facility] [place] Comment on above: Opened In Error Refill Request Start: 09-27-2021 End: 09-27-2021 Patient encounter procedure [place] Alfonso APRN.TECHNICAL SERVICES COORDINATOR Work Phone: Cardiology Comment on above: Mixed hyperlipidemia (Primary Dx); PAF (paroxysmal atrial fibrillation) (HCC); Leg swelling; Chronic diastolic CHF (congestive heart failure) (HCC); Type 2 diabetes mellitus with diabetic neuropathy, without long-term current use of insulin (HCC) Start: 09-22-2021 Refill Dajuan espinosa MD Work Phone: [facility] [place] Comment on above: Prescription Refills Start: 09-21-2021 End: 09-21-2021 Patient encounter procedure Theodora Rey OD Work Phone: Ophthalmology Comment on above: Type 2 diabetes bautista itus without retinopathy (HCC) (Primary Dx); Squamous blepharitis of upper and lower eyelids of both eyes; Punctate keratitis, bilateral; Combined forms of age-related cataract of both eyes Start: 09-20-2021 End: 09-20-[address] [facility] Start: 09-20-2021 [facility] Start: 09-08-2021 Telephone encounter [place] Alfonso APRN.TECHNICAL SERVICES COORDINATOR Work Phone: [facility] Cardiology [place] Comment on above: Medication Problem Start: 09-07-2021 End: 09-07-2021 Patient encounter procedure Dajuan Eric MD Work Phone: [facility] [place] Comment on above: Cervical radiculopat hy (Primary Dx); Lumbar radiculopathy; Insomnia, unspecified type; Dizziness, nonspecific; Falls frequently; Type 2 diabetes mellitus with diabetic neuropathy, without long-term current use of insulin ([facility]); Encounter for screening mammogram for malignant neoplasm of breast Start: 07-02-2021 End: 07-02-2021 Patient encounter procedure [facility], [facility] Start: 06-25-2021 End: 06-25-2021 Emergency department patient visit [facility] Start: 06-16-2021 End: 06-16-2021 Emergency department patient visit [facility] Start: 04-21-2021 End: 04-21-2021 Subsequent hospital visit by physician Xr [facility] Work Phone: Radiology Comment on above: Weight loss [R63.4] Procedures Date Procedure Procedure Detail Performing Clinician Start: 12-18-2024 CT of head without contrast Dr. Dajuan Eric MD Work Phone: Start: 12-02-2024 Plain X-ray of shoulder Dr. Dajuan Eric MD Work Phone: Start: 10-03-2024 Methadone measurement, urine Dr. Dajuan Eric MD Work Phone: Start: 10-03-[address] Dajuan Eric MD Work Phone: Comment on above: Test Ordered: [id number] Z06-Xlqfpr+YV4Ixovgpnaoebd Screen, Urine Negative ng/mL UI Reference Range: Tvzvzy=288Akljjbltdhj test includes Amphetamine and Methamphetamine.Barbiturates Negative ng/mL UI Reference Range: Xlmqjy=433Qdurddljyjgtcrs Negative ng/mL UI Reference Range: Osvgfp=815Vrvhulp (Metab.), Urine Negative ng/mL UI Reference Range: Ggwbsy=769Qmssqeb Note: ng/mL UI See Final Results Reference Range: Lrhnbg=221Thnhxg test includes Codeine, Morphine, Hydromorphone, Hydrocodone.Opiates Positive [A ] UI Reference Range: Wztqze=780Gozaqi test includes Codeine, Morphine, Hydromorphone, Hydrocodone.Codeine Negative UI Reference Range: Xdhqkr=673Ggnogdum Negative UI Reference Range: Lcsmyt=874Daqpwkdomaipq Negative UI Reference Range: Uxegir=054Qsxdgnbfedw Positive [A ] UI Reference Range: .Hydrocodone Conf, MS, UR 1079 ng/mL UI Reference Range: Cebjip=3924-Xkhwchmjyqxbzv, Urine Negative ng/mL UI Reference Range: Cutoff=10Oxycodone/Oxymorphone, Urine Negative ng/mL UI Reference Range: Gfmntu=778Fssz includes Oxycodone and OxymorphonePCP, Urine Negative ng/mL UI Reference Range: Cutoff=25Methadone Screen, Urine Negative ng/mL UI Reference Range: Byxete=121Ftkrcypddhjh, Urine Negative ng/mL UI Reference Range: Bmnscp=175Hcontkwp, Urine Negative ng/mL UI Reference Range: Cutoff=2.0Test includes Fentanyl and NorfentanylThis test was developed and its performance characteristicsdetermined by [facility]. It has not been cleared orapproved by the Food and Drug Administration.Tramadol Negative ng/mL UI Reference Range: Olrkjs=062Pnupqudcgnmsd, Urine Negative ng/mL UI Reference Range: Cutoff=10Creatinine, Urine 46.7 mg/dL UI Reference Range: 20.0-300.0pH, Urine 5.3 UI Reference Range: 4.5-8.9Performed at: [facility] [id number] [place], [place] [id number] Director: Rohit Urena PhD, Phone: [phone] at: [address] [id number] Director: Michael Parra PhD, Phone: [phone] Start: 09-17-[address] Ciarra Eric MD Work Phone: Start: 09-17-2024 Urnls dip stick/tabl et reagent auto microscopy Dr. Dajuan Eric MD Work Phone: Start: 09-06-[address] Dajuan Eric MD Work Phone: Start: 09-06-2024 Serum inorganic phos phate measurement Dr. Dajuan Eric MD Work Phone: Comment on above: Previous reported re sult: 2.6 mg/dLEdited by: AUTOINS on 09/06/24:0606 AMENDED REPORT 09/06/24 0606 PHOS previously reported as: 2.6 L mg/dL Start: 09-05-2024 Plain chest X-ray Dr. Deandra Eric MD Work Phone: Start: 09-04-2024 Urnls dip stick/tabl et reagent auto microscopy Dr. Dajuan Eric MD Work Phone: Start: 09-04-[address] Ciarra Eric MD Work Phone: Start: 08-27-2024 Evaluation of diagno stic study results Dr. Dajuan Eric MD Work Phone: Start: 07-08-2024 X-ray of cervical spine Dr. Dajuan Eric MD Work Phone: Start: 06-04-2024 X-ray of chest, PA a nd lateral views Dr. Dajuan Eric MD Work Phone: Start: 06-04-2024 Evaluation of diagno stic study results Dr. Dajuan Eric MD Work Phone: Start: 05-13-[address] Ciarra Eric MD Work Phone: Start: 02-23-2024 Radiologic exam ches t 2 views Honey Holguin BAG WORKER.TECHNICAL SERVICES COORDINATOR Work Phone: Start: 02-23-2024 Urnls dip stick/tabl et rgnt auto w/o microscopy Honey Holguin BAG WORKER.TECHNICAL SERVICES COORDINATOR Work Phone: Start: 02-23-2024 STREP A MOLECULAR (POC) Honey Holguin APRN.TECHNICAL SERVICES COORDINATOR Work Phone: Start: 01-16-2024 [email or web address] COVI D-19 VACCINE ( SEASON) AGE 12+ YR Dajuan Eric MD Work Phone: Start: 06-08-2023 Complete x-ray serie s of lumbar spine with bending views Dr. Dajuan Eric Work Phone: Start: 06-01-2023 SARS-CoV-2 & FLU Ant igen (Rapid) Dr. Dajuan Eric Work Phone: Start: 06-01-2023 Plain x-ray of hand Dr. Dajuan Eric Work Phone: Start: 06-01-2023 Plain chest X-ray Dr. Deandra Eric Work Phone: Start: 04-04-2023 Dual energy X-ray absorptiometry Dr. Dajuan Eric Work Phone: Start: 01-27-[address] Dajuan Eric Work Phone: Start: 01-27-2023 Bilateral mammography Jamison Eric Work Phone: Start: 10-15-2022 Plain chest X-ray Dr. Deandra Eric Work Phone: Start: 04-06-2022 INFLUENZA SEASONAL QUADRIVALENT HIGH DOSE AGE 65+ Dajuan Eric MD Work Phone: Start: 04-06-2022 Hemoglobin A1c/Hemoglobin.total in Blood Dajuan Eric MD Work Phone: Start: 11-17-2021 Urine albumin quantitative Dajuan Eric MD Work Phone: Start: 11-17-2021 End: 11-17-2021 Comprehensive metabolic panel [place] Alfonso BAG WORKER.TECHNICAL SERVICES COORDINATOR Work Phone: Start: 11-17-2021 Hepatitis c antibody Vi ángel Eric MD Work Phone: Start: 10-18-2021 Radex hand minimum 3 views Maci Bambi Alegria PA-C Work Phone: Start: 10-18-2021 Urnls dip stick/tabl et rgnt auto w/o microscopy Cindy Palmer BAG WORKER.TECHNICAL SERVICES COORDINATOR Work Phone: Start: 10-07-2021 Radex spine cervical 4 or 5 views Emiliana Goldman BAG WORKER.TECHNICAL SERVICES COORDINATOR Work Phone: Start: 09-29-2021 End: 09-29-2021 Mammography Dajuan Swift Work Phone: Start: 09-21-2021 Computerized ophthal ailyn imaging retina Theodora Rey OD Work Phone: Start: 07-14-2021 Adult depression scr eening assessment Dajuan Eric MD Work Phone: Start: 07-02-2021 X-ray of lumbar spin e, two or three views Start: 06-25-2021 Plain chest X-ray Start: 06-25-2021 SARS-CoV-2 Antigen (Rapid) Start: 06-16-2021 Computed tomography of abdomen and pelvis with intravenous contrast Start: 06-16-2021 Plain chest X-ray Start: 04-21-2021 Radiologic exam ches t 2 views Lurdes Marie BAG WORKER.TECHNICAL SERVICES COORDINATOR Work Phone: Urine culture Dr. Dajuan Wahl Work Phone: Plan of Treatment Date Care Activity Detail Author Start: 10-14-2031 Urine microalbumin profile [facility] Start: 08-07-2028 Screening for malign ant neoplasm of colon [facility] Start: 01-16-2026 Annual PCP Team Account Services Manager alondra Disease Visit Annual PCP Team Chronic Disease Visit [facility] Start: 01-16-2026 Diabetic foot examination Diabetic F oot Exam [facility] Start: 01-16-2026 Hepatitis B screening Urine Albumin:Creatinine Ratio [facility] Start: 01-16-2026 Hepatitis B surface antibody level LDL Cholesterol [facility] Start: 01-16-2026 Medicare Annual Well ness Visit Medicare Annual Wellness Visit [facility] Start: 11-22-2025 Glaucoma screening Dilated Retinal E xam [facility] Start: 11-06-2025 Annual PCP Team Account Services Manager alondra Disease Visit Annual PCP Team Chronic Disease Visit [facility] Start: 09-13-2025 Annual PCP Team Account Services Manager alondra Disease Visit Annual PCP Team Chronic Disease Visit [facility] Start: 07-19-2025 Hemoglobin A1c measurement HbA1C [facility] Start: 07-18-2025 Annual PCP Team Account Services Manager alondra Disease Visit Annual PCP Team Chronic Disease Visit [facility] Start: 07-17-2025 End: 07-17-2025 Patient encounter procedure 07/17/2025 10:40 AM EST Office Visit [facility] [address] [place] [address] Dajuan Eric MD [address] [place] [address] 6 month follow-up [facility] Comment on above: 6 month follow-up Start: 04-09-2025 Annual PCP Team Account Services Manager alondra Disease Visit Annual PCP Team Chronic Disease Visit [facility] Start: 04-09-2025 Covid-19 Vaccine () Covid-19 Vaccine () [facility] Comment on above: Postponed from 03/12 (Declined at this time) Start: 02-27-2025 End: 02-27-2025 Evaluation of diagnostic study results [facility] Start: 02-22-2025 Annual PCP Team Account Services Manager alondra Disease Visit Annual PCP Team Chronic Disease Visit [facility] Start: 02-10-2025 Influenza vaccination Influenza Vacc ine (#1) [facility] Start: 01-28-2025 End: 01-28-2025 Patient encounter procedure 01/28/2025 7:30 AM EDT Office Visit Neurology [address] [place] [address] Jenae Gutierrez PA-C [address] [place] [address] 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] Neurology Comment on above: Articulatory dysprax ia [R47.89] Start: 01-16-2025 End: 01-16-2025 Patient encounter procedure 01/16/2025 9:20 AM EDT Office Visit [facility] [address] [place] [address] Dajuan Eric MD [address] [place], [place] [id number] Annual Medicare w/6 month follow-up [facility] Comment on above: Annual Medicare w/6 month follow-up Start: 01-15-2025 Annual PCP Team Account Services Manager alondra Disease Visit Annual PCP Team Chronic Disease Visit [facility] Start: 01-15-2025 Diabetic foot examination Diabetic F oot Exam [facility] Start: 01-15-2025 Hemoglobin A1c measurement HbA1C [facility] Start: 01-15-2025 Hepatitis B screening Urine Albumin:Creatinine Ratio [facility] Start: 01-15-2025 Hepatitis B surface antibody level LDL Cholesterol [facility] Start: 01-10-2025 End: 04-11-2025 Comprehensive metabolic 2000 panel - Serum or Plasma COMPREHENSIVE METABOLIC PANEL Lab Routine Mixed hyperlipidemia Expected: 01/10/2025, Expires: 04/11/2025 [facility] Comment on above: Expected: 01/10/2025 , Expires: 04/11/2025 Start: 01-10-2025 End: 04-11-2025 Hemoglobin A1c in Blood HEMOGLOBIN A1C Lab Routine Type 2 diabetes mellitus with diabetic neuropathy, without long-term current use of insulin (HCC) Expected: 01/10/2025, Expires: 04/11/2025 [facility] Comment on above: Expected: 01/10/2025 , Expires: 04/11/2025 Start: 01-10-2025 End: 04-11-2025 Lipid 1996 panel - Serum or Plasma LIPID PANEL BASIC Lab Routine Mixed hyperlipidemia Expected: 01/10/2025, Expires: 04/11/2025 [facility] Comment on above: Expected: 01/10/2025 , Expires: 04/11/2025 Start: 01-10-2025 End: 04-11-2025 Microalbumin/Creatinine [Mass Ratio] in Urine ALBUMIN/CREATININE RATIO, URINE Lab Routine Type 2 diabetes mellitus with diabetic neuropathy, without long-term current use of insulin (HCC) Expected: 01/10/2025, Expires: 04/11/2025 [facility] Comment on above: Expected: 01/10/2025 , Expires: 04/11/2025 Start: 01-10-2025 End: 04-11-2025 Thyrotropin [Units/volume] in Serum or Plasma THYROID STIMULATING HORMONE Lab Routine Hypothyroidism, unspecified type Expected: 01/10/2025, Expires: 04/11/2025 [facility] Comment on above: Expected: 01/10/2025 , Expires: 04/11/2025 Start: 12-02-2024 Plain X-ray of shoulder Shoulder min 2 Views [facility] Start: 12-02-2024 XR Shoulder GE 2 Views [facility] Start: 11-12-2024 End: 11-12-2024 Patient encounter procedure 11/12/2024 11:40 AM EDT Appointment Cat Scan [address] [place] [address] 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] Cat Scan Comment on above: Articulatory dysprax ia [R47.89] Start: 11-06-2024 End: 11-06-2024 Patient encounter procedure 11/06/2024 10:20 AM EDT [facility] [place] [address] [facility] [place] [address] Dajuan Eric MD [address] [place] [address] preop clearance for surgery on November 27 neck sugery [facility] [place] Comment on above: preop clearance for surgery on November 27, neck sugery Start: 10-10-2024 Evaluation of diagno stic study results [facility] Start: 09-21-2024 Annual PCP Team Account Services Manager alondra Disease Visit Annual PCP Team Chronic Disease Visit [facility] Start: 09-14-2024 Annual PCP Team Account Services Manager alondra Disease Visit Annual PCP Team Chronic Disease Visit [facility] Start: 09-10-2024 Walking distance 6 minutes [facility] Start: 09-09-2024 End: 09-09-2024 Patient encounter procedure 09/09/2024 1:00 PM EDT Office Visit [facility] [place] [address] [facility] [place] [address] Dajuan Eric MD [address] [place] [address] D eLa Cruz surgery is 09/25/24. [facility] [place] Comment on above: pre op per Dr. De La Cruz surgery is 09/25/24. Start: 09-07-2024 Serum inorganic phos phate measurement [facility] Start: 09-07-2024 [facility] Start: 09-06-2024 Patient discharge [facility] Start: 09-06-2024 Serum inorganic phos phate measurement [facility] Start: 09-06-2024 Following clinical p athway protocol [facility] Start: 09-06-2024 Assessment of risk o f venous thromboembolism [facility] Start: 09-06-2024 Care regimes management [facility] Start: 09-06-2024 Incentive spirometry [facility] Start: 09-06-2024 Insertion of cathete r into peripheral vein [facility] Start: 09-06-2024 Measuring intake and output [facility] Start: 09-06-2024 Notification of physician [facility] Start: 09-06-2024 Oxygen therapy [facility] Start: 09-06-2024 Providing care accor ding to standard [facility] Start: 09-06-2024 Provision of activit y privileges [facility] Start: 09-06-2024 Referral to steak sauce maker [facility] Start: 09-06-2024 Referral to service [facility] Start: 09-06-2024 Thyroid stimulating hormone measurement [facility] Start: 09-06-2024 End: 09-06-2024 [facility] Start: 09-05-2024 Verification routine [facility] Start: 09-05-2024 Admission procedure [facility] Start: 09-05-2024 [facility] Start: 09-05-2024 End: 09-06-2024 [facility] Start: 09-04-2024 Bacteria identified in Urine by Culture Urine Culture [facility] Start: 09-04-2024 Urine culture Urine Culture [facility] Start: 09-04-2024 [facility] Start: 07-18-2024 End: 10-17-2024 25-hydroxyvitamin D3 [Mass/volume] in Serum or Plasma [facility] Work Phone: Comment on above: Expected: 07/18/2024 , Expires: 10/17/2024 Start: 07-18-2024 Hemoglobin A1c measurement HbA1C [facility] Start: 07-18-2024 End: 07-18-2024 Patient encounter procedure 07/18/2024 9:00 AM EST Office Visit Internal Medicine [facility] [address] [place] [id number] Dajuan Eric MD [address] [facility] [place] [address] 6 mo recheck follow up [facility] Comment on above: 6 mo recheck follow up Start: 07-09-2024 End: 10-08-2024 Hemoglobin A1c in Blood HEMOGLOBIN A1C Lab Routine Type 2 diabetes mellitus with diabetic neuropathy, without long-term current use of insulin (HCC) Expected: 07/09/2024, Expires: 10/08/2024 [facility] Work Phone: Comment on above: Expected: 07/09/2024 , Expires: 10/08/2024 Start: 06-16-2024 Annual PCP Team Account Services Manager alondra Disease Visit Annual PCP Team Chronic Disease Visit [facility] Start: 06-12-2024 Advance Directive Discussion Advance Directive Discussion [facility] Start: 06-12-2024 Medicare Advantage A nnual Wellness Visit Medicare Advantage Annual Wellness Visit [facility] Start: 03-16-2024 Hemoglobin A1c measurement HbA1C [facility] Start: 03-12-2024 Covid-19 Vaccine ( season) Covid-19 Vaccine () [facility] Start: 03-07-2024 Glaucoma screening Dilated Retinal E xam [facility] Start: 03-07-2024 Hepatitis C antibody , confirmatory test Dilated Retinal Exam [facility] Start: 03-01-2024 End: 03-24-2025 XR Chest PA and Lateral XR CHEST 2V FRONTAL/LAT Radiology Routine [place] (dyspnea on exertion) Expected: 03/01/2024, Expires: 03/24/2025 [facility] Work Phone: Comment on above: Expected: 03/01/2024 , Expires: 03/24/2025 Start: 02-23-2024 Hepatitis B screening Urine Albumin:Creatinine Ratio [facility] Start: 02-23-2024 Hepatitis B surface antibody level LDL Cholesterol [facility] Start: 02-23-2024 End: 05-24-2024 Natriuretic peptide.B prohormone N-Terminal [Mass/volume] in Serum or Plasma [facility] Comment on above: Expected: 02/23/2024 , Expires: 05/24/2024 Start: 02-23-2024 Shingrix Vaccine (2 of 2) Malagon grix Vaccine (2 of 2) [facility] Start: 02-11-2024 Influenza vaccination Influenza Vacc ine (#1) [facility] Start: 01-25-2024 ANNUAL PCP TEAM [employer] ALONDRA DISEASE VISIT ANNUAL PCP TEAM CHRONIC DISEASE VISIT [facility] Start: 01-25-2024 SHINGRIX VACCINE (1 of 2) MALAGON GRIX VACCINE (1 of 2) [facility] Comment on above: Postponed from 04/23 (Declined at this time) Start: 01-16-2024 End: 04-16-2024 Comprehensive metabolic 2000 panel - Serum or Plasma [facility] Work Phone: Comment on above: Expected: 01/16/2024 , Expires: 04/16/2024 Start: 01-16-2024 End: 04-16-2024 Hemoglobin A1c in Blood [facility] Comment on above: Expected: 01/16/2024 , Expires: 04/16/2024 Start: 01-16-2024 End: 04-16-2024 LIPID PANEL, NONFASTING [facility] Comment on above: Expected: 01/16/2024 , Expires: 04/16/2024 Start: 01-16-2024 End: 04-16-2024 Microalbumin/Creatinine [Mass Ratio] in Urine [facility] Comment on above: Expected: 01/16/2024 , Expires: 04/16/2024 Start: 01-16-2024 End: 04-16-2024 Thyrotropin [Units/volume] in Serum or Plasma [facility] Comment on above: Expected: 01/16/2024 , Expires: 04/16/2024 Start: 01-16-2024 End: 01-16-2024 Patient encounter procedure 01/16/2024 10:00 AM EDT Office Visit Internal Medicine [facility] [address] [place] [id number] Dajuan Eric MD [address] [place] [address] Medicare Wellness/4 month follow up [facility] Comment on above: Medicare Wellness/4 month follow up Start: 11-24-2023 Hemoglobin A1c measurement HbA1C [facility] Start: 09-24-2023 3 comp foot exam completed DIABETIC FOOT EXAM [facility] Start: 09-24-2023 ANNUAL PCP TEAM [employer] ALONDRA DISEASE VISIT ANNUAL PCP TEAM CHRONIC DISEASE VISIT [facility] Start: 09-24-2023 Diabetic foot examination Diabetic F oot Exam [facility] Start: 09-19-2023 End: 12-19-2023 CBC panel - Blood by Automated count CBC Lab Routine Sorethroat Expected: 09/19/2023, Expires: 12/19/2023 [facility] Work Phone: Comment on above: Expected: 09/19/2023 , Expires: 12/19/2023 Start: 08-23-2023 Hemoglobin A1c/Hemoglobin.total in Blood HbA1C [facility] Start: 08-12-2023 Covid-19 Vaccine () Covid-19 Vaccine () [facility] Start: 06-12-2023 Advance Directive Discussion Advance Directive Discussion [facility] Start: 06-01-2023 [facility] Start: 06-01-2023 Brain natriuretic pe ptide measurement [facility] Start: 05-25-2023 ANNUAL PCP TEAM [employer] ALONDRA DISEASE VISIT ANNUAL PCP TEAM CHRONIC DISEASE VISIT [facility] Start: 04-20-2023 Screening for malign ant neoplasm of colon Cologuard (FIT-DNA) [facility] Start: 04-06-2023 ANNUAL PCP TEAM [employer] ALONDRA DISEASE VISIT ANNUAL PCP TEAM CHRONIC DISEASE VISIT [facility] Start: 03-25-2023 Hemoglobin A1c/Hemoglobin.total in Blood HBA1C [facility] Start: 03-09-2023 COVID-19 VACCINE (2 - Moderna series) COVID-19 VACCINE (2 - Moderna series) [facility] Comment on above: Postponed from 03/09 (Not Currently Available) Start: 03-09-2023 COVID-19 VACCINE (3 - Moderna series) COVID-19 VACCINE (3 - Moderna series) [facility] Comment on above: Postponed from 07/09 (Not Currently Available) Start: 02-22-2023 End: 04-24-2023 Bacteria identified in Wound by Culture [facility] Work Phone: Comment on above: Expected: 02/22/2023 , Expires: 04/24/2023 Start: 02-10-2023 Covid-19 Vaccine () Covid-19 Vaccine () [facility] Start: 02-10-2023 Influenza vaccination [facility] Start: 01-24-2023 End: 03-26-2023 ALBUMIN/CREAT RATIO RND UR ALBUMIN/CREAT RATIO RND UR Lab Routine Type 2 diabetes mellitus with diabetic neuropathy, without long-term current use of insulin (HCC) Expected: 01/24/2023, Expires: 03/26/2023 [facility] Work Phone: Comment on above: Expected: 01/24/2023 , Expires: 03/26/2023 Start: 01-24-2023 End: 03-26-2023 Comprehensive metabolic 2000 panel - Serum or Plasma COMP METABOLIC PANEL Lab Routine Type 2 diabetes mellitus with diabetic neuropathy, without long-term current use of insulin (HCC) Mixed hyperlipidemia Expected: 01/24/2023, Expires: 03/26/2023 [facility] Work Phone: Comment on above: Expected: 01/24/2023 , Expires: 03/26/2023 Start: 01-24-2023 End: 03-26-2023 Hemoglobin A1c in Blood HGB A1C Lab Routine Type 2 diabetes mellitus with diabetic neuropathy, without long-term current use of insulin (HCC) Expected: 01/24/2023, Expires: 03/26/2023 [facility] Work Phone: Comment on above: Expected: 01/24/2023 , Expires: 03/26/2023 Start: 01-24-2023 End: 03-26-2023 Lipid 1996 panel - Serum or Plasma LIPID PANEL BASIC Lab Routine Mixed hyperlipidemia Expected: 01/24/2023, Expires: 03/26/2023 [facility] Work Phone: Comment on above: Expected: 01/24/2023 , Expires: 03/26/2023 Start: 01-24-2023 End: 03-26-2023 Thyrotropin [Units/volume] in Serum or Plasma TSH BLD Lab Routine Hypothyroidism, unspecified type Expected: 01/24/2023, Expires: 03/26/2023 [facility] Work Phone: Comment on above: Expected: 01/24/2023 , Expires: 03/26/2023 Start: 01-04-2023 ANNUAL PCP TEAM [employer] ALONDRA DISEASE VISIT ANNUAL PCP TEAM CHRONIC DISEASE VISIT [facility] Start: 01-04-2023 COVID-19 VACCINE (2 - Moderna series) COVID-19 VACCINE (2 - Moderna series) [facility] Comment on above: Postponed from 06/16 (Declined at this time) Start: 01-04-2023 PNEUMOCOCCAL: 65+ (2 - PCV) PNEUMOCOCCAL: 65+ (2 - PCV) [facility] Comment on above: Postponed from 05/17 (Declined at this time) Start: 01-04-2023 SHINGRIX VACCINE (1 of 2) MALAGON GRIX VACCINE (1 of 2) [facility] Comment on above: Postponed from 04/23 (Declined at this time) Start: 11-17-2022 Hepatitis B screening URINE ALBUMIN:CREATININE RATIO [facility] Start: 11-17-2022 Hepatitis B surface antibody level LDL CHOLESTEROL [facility] Start: 10-23-2022 ANNUAL PCP TEAM [employer] ALONDRA DISEASE VISIT ANNUAL PCP TEAM CHRONIC DISEASE VISIT [facility] Start: 10-19-2022 Hepatitis C antibody , confirmatory test DILATED RETINAL EXAM [facility] Start: 10-18-2022 COLORECTAL CANCER SCREENING COLORECTAL CANCER SCREENING [facility] Start: 10-18-2022 FECAL OCCULT BLOOD FECAL OCCULT BLOO D [facility] Start: 10-18-2022 Screening for malign ant neoplasm of colon [facility] Start: 10-15-2022 [facility] Start: 10-05-2022 ANNUAL PCP TEAM [employer] ALONDRA DISEASE VISIT ANNUAL PCP TEAM CHRONIC DISEASE VISIT [facility] Start: 10-05-2022 End: 12-05-2022 Basic metabolic 2000 panel - Serum or Plasma BASIC METABOLIC PNL Lab Routine Type 2 diabetes mellitus with diabetic neuropathy, without long-term current use of insulin (HCC) Expected: 10/05/2022, Expires: 12/05/2022 [facility] Work Phone: Comment on above: Expected: 10/05/2022 , Expires: 12/05/2022 Start: 10-05-2022 End: 12-05-2022 CBC panel - Blood by Automated count CBC Lab Routine PAF (paroxysmal atrial fibrillation) (HCC) Expected: 10/05/2022, Expires: 12/05/2022 [facility] Work Phone: Comment on above: Expected: 10/05/2022 , Expires: 12/05/2022 Start: 10-05-2022 End: 12-05-2022 Hemoglobin A1c in Blood HGB A1C Lab Routine Type 2 diabetes mellitus with diabetic neuropathy, without long-term current use of insulin ([facility]) Expected: 10/05/2022, Expires: 12/05/2022 [facility] Work Phone: Comment on above: Expected: 10/05/2022 , Expires: 12/05/2022 Start: 10-05-2022 Hemoglobin A1c/Hemoglobin.total in Blood HBA1C [facility] Start: 10-05-2022 End: 12-05-2022 Thyrotropin [Units/volume] in Serum or Plasma TSH BLD Lab Routine Hypothyroidism, unspecified type Expected: 10/05/2022, Expires: 12/05/2022 [facility] Work Phone: Comment on above: Expected: 10/05/2022 , Expires: 12/05/2022 Start: 09-29-2022 Mammography [facility] Start: 09-29-2022 Screening for malign ant neoplasm of breast Mammogram Screening [facility] Start: 09-21-2022 Hepatitis C antibody , confirmatory test DILATED RETINAL EXAM [facility] Start: 09-07-2022 3 comp foot exam completed DIABETIC FOOT EXAM [facility] Start: 09-07-2022 ANNUAL PCP TEAM [employer] ALONDRA DISEASE VISIT ANNUAL PCP TEAM CHRONIC DISEASE VISIT [facility] Start: 09-07-2022 Hepatitis B surface antibody level LDL CHOLESTEROL [facility] Start: 08-19-2022 [facility] Start: 07-14-2022 Adult depression scr eening assessment DEPRESSION SCREENING [facility] Start: 06-12-2022 ADVANCE DIRECTIVE DISCUSSION ADVANCE DIRECTIVE DISCUSSION [facility] Start: 05-25-2022 End: 07-25-2022 Basic metabolic 2000 panel - Serum or Plasma [facility] Work Phone: Comment on above: Expected: 05/25/2022 , Expires: 07/25/2022 Start: 05-25-2022 End: 07-25-2022 CBC panel - Blood by Automated count [facility] Work Phone: Comment on above: Expected: 05/25/2022 , Expires: 07/25/2022 Start: 05-19-2022 Hemoglobin A1c/Hemoglobin.total in Blood HBA1C [facility] Start: 03-09-2022 COVID-19 VACCINE (2 - Moderna series) COVID-19 VACCINE (2 - Moderna series) [facility] Start: 02-10-2022 Influenza vaccination [facility] Start: 12-27-2021 Hemoglobin A1c/Hemoglobin.total in Blood HBA1C [facility] Start: 10-19-2021 Screening for malign ant neoplasm of colon Colorectal Cancer Screening [facility] Start: 10-13-2021 Simple repair scalp/neck/ax/genit/trunk 2.5cm/< RPR S/N/AX/GEN/TRNK 2.5CM/< [facility] Work Phone: Start: 10-05-2021 End: 12-05-2021 ALBUMIN/CREAT RATIO RND UR ALBUMIN/CREAT RATIO RND UR Lab Routine Type 2 diabetes mellitus with diabetic neuropathy, without long-term current use of insulin (HCC) Expected: 10/05/2021, Expires: 12/05/2021 [facility] Work Phone: Comment on above: Expected: 10/05/2021 , Expires: 12/05/2021 Start: 10-05-2021 End: 12-05-2021 Basic metabolic 2000 panel - Serum or Plasma BASIC METABOLIC PNL Lab Routine Type 2 diabetes mellitus with diabetic neuropathy, without long-term current use of insulin (HCC) Expected: 10/05/2021, Expires: 12/05/2021 [facility] Work Phone: Comment on above: Expected: 10/05/2021 , Expires: 12/05/2021 Start: 10-05-2021 End: 06-26-2022 Hemoglobin A1c/Hemoglobin.total in Blood HGB A1C Lab Routine Type 2 diabetes mellitus with diabetic neuropathy, without long-term current use of insulin (HCC) Expected: 10/05/2021, Expires: 12/05/2021 [facility] Work Phone: Comment on above: Expected: 10/05/2021 , Expires: 12/05/2021 Start: 10-05-2021 End: 12-05-2021 Hepatitis C virus Ab [Presence] in Serum HEP C AB IA W/CONF SCRN Lab Routine Encounter for hepatitis C screening test for low risk patient Expected: 10/05/2021, Expires: 12/05/2021 [facility] Work Phone: Comment on above: Expected: 10/05/2021 , Expires: 12/05/2021 Start: 06-16-2021 COVID-19 VACCINE (2 - Moderna series) COVID-19 VACCINE (2 - Moderna series) [facility] Start: 06-12-2021 ADVANCE DIRECTIVE DISCUSSION ADVANCE DIRECTIVE DISCUSSION [facility] Start: 06-12-2021 DEPRESSION ASSESSMENT DEPRESSION ASS ESSMENT [facility] Start: 02-10-2021 Influenza vaccination INFLUENZA (#1) [facility] Start: 2017 BONE DENSITY BONE DENSITY [facility] Start: 2017 Bone Density Screening Bone Density Screening [facility] Start: 2017 PNEUMOVAX AGE 65 AND OVER WITH 5YR LOOKBACK (#1) PNEUMOVAX AGE 65 AND OVER WITH 5YR LOOKBACK (#1) [facility] Start: 2017 Screening for osteoporosis Bone Dens ity Screening [facility] Start: 2012 RSV Vaccine (1 - 1-d ose 60+ series) RSV Vaccine (1 - 1-dose 60+ series) [facility] Start: 2002 SHINGRIX VACCINE (1 of 2) MALAGON GRIX VACCINE (1 of 2) [facility] Start: 05-17-2001 PNEUMOCOCCAL: 65+ (2 - PCV) PNEUMOCOCCAL: 65+ (2 - PCV) [facility] Start: 1997 COLOGUARD (FIT-DNA) COLOGUARD (FIT-D NA) [facility] Start: 1997 Colonoscopy COLONOSCOPY [facility] Start: 1997 COLORECTAL CANCER SCREENING COLORECTAL CANCER SCREENING [facility] Start: [address] COLONOGRAPHY [facility] Start: 1997 FECAL OCCULT BLOOD FECAL OCCULT BLOO D [facility] Start: 1997 Screening for malign ant neoplasm of colon [facility] Start: 1997 SIGMOIDOSCOPY SIGMOIDOSCOPY [facility] Start: 1992 Mammography MAMMOGRAM [facility] Start: 1971 Urine microalbumin profile DTAP,TDAP ,TD (1 - Tdap) [facility] Start: 1970 ANNUAL PCP TEAM [employer] ALONDRA DISEASE VISIT ANNUAL PCP TEAM CHRONIC DISEASE VISIT [facility] Start: 1970 HEPATITIS C SCREENING HEPATITIS C SC REENING [facility] Start: 1970 SPIROMETRY SPIROMETRY [facility] Start: 1962 Hepatitis B screening URINE ALBUMIN:CREATININE RATIO [facility] Start: 1962 Hepatitis C antibody , confirmatory test DILATED RETINAL EXAM [facility] Start: 1957 COVID-19 VACCINE (#1) COVID-19 VACCI NE (#1) [facility] Start: 1957 COVID-19 VACCINE (1) COVID-19 VACCIN E (1) [facility] Alanine aminotransfe rase [Enzymatic activity/volume] in Serum or Plasma [facility] Albumin [Mass/volume ] in Serum or Plasma [facility] Alkaline phosphatase [Enzymatic activity/volume] in Serum or Plasma [facility] Anion gap in Serum o r Plasma [facility] Bacteria identified in Urine by Culture Urine Culture [facility] Bilirubin, total measurement [facility] Blood chemistry [facility] Brain natriuretic pe ptide measurement [facility] BUN/Creatinine ratio [facility] Calcium [Mass/volume ] in Serum or Plasma [facility] Carbon dioxide, tota l [Moles/volume] in Central venous blood [facility] CBC W Auto Different ial panel - Blood [facility] Cholesterol [Mass/vo lume] in Serum or Plasma [facility] Cholesterol in HDL [Mass/volume] in Serum or Plasma [facility] COLOGUARD COLOGUARD Lab Ro utine Colon cancer screening Ordered: 01/24/2023 [facility] Work Phone: Comment on above: Ordered: 01/24/2023 COVID & INFLUENZA A/ B & RSV PCR, ROUTINE COVID & INFLUENZA A/B & RSV PCR, ROUTINE Microbiology Routine Sore throat Ordered: 02/23/2024 [facility] Work Phone: Comment on above: Ordered: 02/23/2024 Creatinine [Mass/vol ume] in Serum or Plasma [facility] End: 12-06-2025 CT Head WO contrast CT BRAIN WO IVCON Radiology Routine Articulatory dyspraxia Dizziness, nonspecific 1 Occurrences starting 11/06/2024 until 12/06/2025 [facility] Work Phone: Comment on above: 1 Occurrences starti ng 11/06/2024 until 12/06/2025 End: 04-12-2025 DBT Breast - bilateral screening GERA SCREENING W MICKY Radiology Routine Encounter for screening mammogram for breast cancer 1 Occurrences starting 03/13/2024 until 04/12/2025 [facility] Work Phone: Comment on above: 1 Occurrences starti ng 03/13/2024 until 04/12/2025 End: 02-03-2023 Dxa bone density study 1/> sites axial skel DXA-AXIAL SKELETON Radiology Routine Screening for osteoporosis Asymptomatic menopause 1 Occurrences starting 01/04/2022 until 02/03/2023 [facility] Work Phone: Comment on above: 1 Occurrences starti ng 01/04/2022 until 02/03/2023 End: 10-23-2023 DXA-AXIAL SKELETON DXA-AXIAL SKELETON Radiology Routine Encounter for screening for osteoporosis Asymptomatic postmenopausal status 1 Occurrences starting 09/23/2022 until 10/23/2023 [facility] Work Phone: Comment on above: 1 Occurrences starti ng 09/23/2022 until 10/23/2023 Erythrocyte mean corpuscular volume determination [facility] Folate [Moles/volume ] in Serum or Plasma [facility] Glucose [Mass/volume ] in Serum or Plasma [facility] Hematocrit [Volume Fraction] of Blood [facility] Hemoglobin [Mass/vol ume] in Blood [facility] Hemoglobin A1c/Hemoglobin.total in Blood [facility] Hemoglobin.gastroint estina l.lower [Presence] in Stool by Immunoassay FECAL OCCULT BLOOD TEST Lab Routine Screening for colon cancer 10/18/2021 1:34 PM EDT [facility] Work Phone: Leukocytes [#/volume ] in Blood [facility] Low density lipoprot ein cholesterol measurement [facility] End: 05-06-2023 LUNG VOLUMES LUNG VOLUMES PFT Routine Mild intermittent asthma without complication 1 Occurrences starting 04/06/2022 until 05/06/2023 [facility] Work Phone: Comment on above: 1 Occurrences starti ng 04/06/2022 until 05/06/2023 End: 02-23-2024 GERA DIAGNOSTIC BILATERAL GERA DIAGNOSTIC BILATERAL Radiology Routine Lump of axilla, right Abnormal breast finding 1 Occurrences starting 01/24/2023 until 02/23/2024 [facility] Work Phone: Comment on above: 1 Occurrences starti ng 01/24/2023 until 02/23/2024 End: 10-23-2023 GERA SCREENING GERA SCREENING Radiology Routine Encounter for screening mammogram for malignant neoplasm of breast 1 Occurrences starting 09/23/2022 until 10/23/2023 [facility] Work Phone: Comment on above: 1 Occurrences starti ng 09/23/2022 until 10/23/2023 End: 04-29-2024 GERA SCREENING W MICKY GERA SCREENING W MICKY Radiology Routine Screening mammogram for breast cancer 1 Occurrences starting 04/04/2023 until 04/29/2024 [facility] Work Phone: Comment on above: 1 Occurrences starti ng 04/04/2023 until 04/29/2024 Mean corpuscular hemoglobin concentration determination [facility] Mean corpuscular hemoglobin determination [facility] Measurement of renal function [facility] MR Lumbar spine [facility] End: 11-06-2022 Mri brain brain stem w/o w/contrast material MRI BRAIN WO/W IVCON Radiology Routine Transient cerebral ischemia, unspecified type 1 Occurrences starting 10/07/2021 until 11/06/2022 [facility] Work Phone: Comment on above: 1 Occurrences starti ng 10/07/2021 until 11/06/2022 Neutrophil count [facility] Neutrophil percent differential count [facility] Patient Education [facility] Work Phone: Patient referral [facility] Work Phone: Platelets [#/volume] in Blood [facility] Potassium measurement [facility] Red blood cell count [facility] Red cell distributio n width determination [facility] End: 10-07-2022 Screening mammography bi 2-view breast inc cad GERA SCREENING Radiology Routine Encounter for screening mammogram for malignant neoplasm of breast 1 Occurrences starting 09/07/2021 until 10/07/2022 [facility] Work Phone: Comment on above: 1 Occurrences starti ng 09/07/2021 until 10/07/2022 Serum chloride measurement [facility] Sodium measurement [facility] End: 05-06-2023 SPIROMETRY - BASELINE AND POST DILATOR SPIROMETRY - BASELINE AND POST DILATOR PFT Routine Mild intermittent asthma without complication 1 Occurrences starting 04/06/2022 until 05/06/2023 [facility] Work Phone: Comment on above: 1 Occurrences starti ng 04/06/2022 until 05/06/2023 Thyroid stimulating hormone measurement [facility] Total cholesterol:HD L ratio measurement [facility] Total protein measurement [facility] Triglycerides measurement [facility] Troponin T.cardiac [Mass/volume] in Serum or Plasma by High sensitivity method [facility] Urea nitrogen [Mass/volume] in Serum or Plasma [facility] Urine culture [facility] End: 02-23-2024 US BREAST LTD RIGHT US BREAST LTD RIGHT Radiology Routine Lump of axilla, right Abnormal breast finding 1 Occurrences starting 01/24/2023 until 02/23/2024 [facility] Work Phone: Comment on above: 1 Occurrences starti ng 01/24/2023 until 02/23/2024 US Carotid arteries [facility] US Heart [facility] VLDL cholesterol measurement [facility] Walking distance 6 minutes [facility] [place] [facility] Immunizations Immunization Date Immunization Notes Care Provider [facility] 04-09-2024 influenza, high dose seasonal, preservative-free Dajuan Eric MD Work Phone: [facility] 04-09-2024 influenza virus vacc ine, unspecified formulation Dajuan Eric MD Work Phone: [facility] 01-16-2024 COVID-19 vaccine, ag e 12+ yr, season (FlowBelow Aero) Dajuan Eric MD Work Phone: [facility] 12-29-2023 zoster vaccine recombinant Dajuan Eric MD Work Phone: [facility] 12-13-2023 zoster RZV vaccine, PF, (SHINGRIX, PF,) 50 mcg/0.5 mL injection Dajuan Eric MD Work Phone: [facility] 05-18-2023 respiratory syncytia l virus (RSV) vaccine, bivalent (ABRYSVO) Taylor Alfonso APRN.[facility] Work Phone: [facility] Work Phone: 04-21-2023 influenza (HD-IIV4) vaccine, age 65+ yr, high dose, quadrivalent, PF (FLUZONE HIGH-DOSE) Taylor Alfonso APRN.TECHNICAL SERVICES COORDINATOR Work Phone: [facility] Work Phone: 04-21-2023 influenza virus vacc ine, unspecified formulation Dajuan Eric MD Work Phone: [facility] 04-06-2022 influenza, high-dose , quadrivalent vaccine (FLUZONE HIGH DOSE QUADRIVALENT) Dajuan Eric MD Work Phone: [facility] 04-06-2022 pneumococcal (PCV20) vaccine, 20 valent (PREVNAR 20) Dajuan Eric MD Work Phone: [facility] 04-06-2022 pneumococcal Conjuga te, unspecified formulation Dajuan Eric MD Work Phone: [facility] Work Phone: 04-06-2022 influenza virus vacc ine, unspecified formulation Cindy Palmer APRN.TECHNICAL SERVICES COORDINATOR Work Phone: [facility] 03-09-2022 COVID-19 booster vaccine, age 12+ yr, bivalent (MODERNA) Dajuan Eric MD Work Phone: [facility] Work Phone: 10-13-2021 tetanus toxoid, redu mao diphtheria toxoid, and acellular pertussis vaccine, adsorbed [facility] Work Phone: 10-22-2020 COVID-19 original vaccine, booster dose, monovalent (MODERNA) Dajuan Eric MD Work Phone: [facility] Work Phone: 09-24-2020 COVID-19 original vaccine, booster dose, monovalent (MODERNA) Dajuan Eric MD Work Phone: [facility] Work Phone: 08-28-2001 TD(adult) unspecifie d formulation Taylor Alfonso APRN.TECHNICAL SERVICES COORDINATOR Work Phone: [facility] Work Phone: 05-17-2000 pneumococcal polysaccharide vaccine, 23 valent Taylor Alfonso APRN.TECHNICAL SERVICES COORDINATOR Work Phone: [facility] Work Phone: 07-30-1993 hepatitis B vaccine, adult dosage Taylor Alfonso APRN.TECHNICAL SERVICES COORDINATOR Work Phone: [facility] Work Phone: 03-04-1993 hepatitis B vaccine, adult dosage Taylor Alfonso APRN.TECHNICAL SERVICES COORDINATOR Work Phone: [facility] Work Phone: 02-04-1993 hepatitis B vaccine, adult dosage Taylor Alfonso BAG WORKER.TECHNICAL SERVICES COORDINATOR Work Phone: [facility] Work Phone: 03-12-1992 TD(adult) unspecifie d formulation Taylor Alfonso BAG WORKER.TECHNICAL SERVICES COORDINATOR Work Phone: [facility] Work Phone: Payers Date Payer Category Payer Unknown 2024 Self-pay [id number] 2024 Medicaid [id number] 2024 Medicaid [id number] 2024 Medicare (Managed Care) [facility] [id number] 2024 Unknown [id number] 2020 Private Health Insurance [employer]ET[employer]A [employer] MEDICARE SUPPLEMENT [id number] 2020-Present [phone] [address] [place] [address] Indemnity [id number] 2020 Private Health Insurance [id number] 2017 Medicare MEDICARE MEDICAR E A AND B [id number] 2017-Present [phone] [place] [address] Medicare [id number] 2017 Medicare [id number]. [id number] Medicare [id number] Private Health Insurance [id number] Unknown [id number] 2.16.840.1.081062.3.579.2. 462 Unknown [id number] 2.16.840.1.004153.3.579.2. 462 Unknown [id number] 2.16.840.1.236467.3.579.2. 462 Unknown [id number] 2.16.840.1.178513.3.579.2. 462 Unknown [id number] 2.16.840.1.410846.3.579.2. 462 Unknown [id number] 2.16.840.1.968868.3.579.2. 462 Unknown [id number] 2.16.840.1.198839.3.579.2. 462 Unknown [id number] 2.16.840.1.022811.3.579.2. 462 Unknown [id number] 2.16.840.1.090474.3.579.2. 462 Unknown [id number] 2.16.840.1.117987.3.579.2. 462 Unknown [id number] 2.16.840.1.465277.3.579.2. 462 Unknown [id number] 2.16.840.1.309327.3.579.2. 462 Unknown [id number] 2.16.840.1.618743.3.579.2. 462 Unknown [id number] 2.16.840.1.498765.3.579.2. 462 Unknown [id number] 2.16.840.1.881056.3.579.2. 462 Unknown [id number] 2.16.840.1.025004.3.579.2. 462 Unknown [id number] 2.16.840.1.853371.3.579.2. 462 Unknown [id number] 2.16.840.1.529074.3.579.2. 462 Unknown [id number] 2.16.840.1.099431.3.579.2. 462 Unknown [id number] 2.16.840.1.651605.3.579.2. 462 Unknown [id number] 2.16.840.1.884161.3.579.2. 462 Unknown [id number] 2.16.840.1.563848.3.579.2. 462 Unknown [id number] 2.16.840.1.263111.3.579.2. 462 Unknown [id number] 2.16.840.1.440639.3.579.2. 462 Unknown [id number] 2.16.840.1.407566.3.579.2. 462 Unknown [id number] 2.16.840.1.193982.3.579.2. 462 Unknown [id number] 2.16.840.1.687735.3.579.2. 462 Unknown [id number] 2.16.840.1.110816.3.579.2. 462 Unknown [id number] 2.16.840.1.261666.3.579.2. 462 Unknown [id number] 2.16.840.1.448615.3.579.2. 462 Unknown [id number] 2.16.840.1.127913.3.579.2. 462 Unknown [id number] 2.16840.1.760210.3.579.2. 462 Unknown [id number] 2.16.840.1.420515.3.579.2. 462 Unknown [id number] 2.840.1.371066.3.579.2. 462 Social History Date Type Detail Facility Start: 04-21-2021 End: 09-06-2024 Tobacco smoking status NHIS Ex-smoker [facility] Start: 1977 End: 12-10-1988 History of tobacco use Current smoker [facility] Start: 1977 End: 12-10-1988 History of tobacco use Cigarette Smoker [facility] Start: 04-21-2021 End: 01-24-2023 Cigarettes smoked current (pack per day) - Reported 2 [facility] Start: 04-21-2021 End: 03-27-2024 Tobacco use and exposure Smokeless tobacco non-user [facility] Start: 09-07-2021 End: 11-06-2024 Alcohol intake Ex-drinker (finding) [facility] Start: 09-07-2021 End: 01-04-2022 History SDOH Alcohol Frequency 1 [facility] Start: 09-07-2021 History SDOH Alcohol Comment none since 1995 [facility] Start: 09-07-2021 End: 05-25-2022 Tobacco Comment from age 27 [facility] Start: 1950 Sex Assigned At Not on file [facility] Start: 03-22-2021 End: 10-18-2021 Exposure to SARS-CoV-2 (event) Not sure [facility] Work Phone: Start: 1950 Sex Assigned At Female [facility] Start: 10-13-2021 End: 06-08-2023 Tobacco smoking status [facility] Unknown if ever smoked [facility] Start: 10-19-2021 End: 01-06-2022 Exposure to SARS-CoV-2 (event) Unable to assess [facility] Work Phone: Start: 01-04-2022 History SDOH Alcohol Std Drinks 98 [facility] Start: 01-04-2022 History SDOH Social Connections Phone 5 [facility] Start: 01-04-2022 End: 04-04-2022 History SDOH Social Connections Get Together 2 [facility] Start: 01-04-2022 History SDOH Social Connections Jainism 3 [facility] Start: 01-04-2022 History SDOH Social Connections Living 4 [facility] Start: 01-04-2022 History SDOH Physical Activity DPW 0 [facility] Start: 01-04-2022 End: 01-24-2023 Social connection and isolation panel [facility] Do you belong to any clubs or organizations such as oriental orthodox groups, unions, fraternal or athletic groups, or school groups? Yes [facility] Are you now , , , , never or living with a partner? [facility] How often to you hav e a drink containing alcohol? Never [facility] Start: 05-13-2012 How many standard drinks containing alcohol do you have on a typical day? Patient refused [facility] How hard is it for y ou to pay for the very basics like food, housing, medical care, and heating Very hard [facility] Do you feel stress - tense, restless, nervous, or anxious, or unable to sleep at night because your mind is troubled all the time - these days [OSQ] Only a little [facility] (I/We) worried wheth er (my/our) food would run out before (I/we) got money to buy more. Sometimes true [facility] In the past 12 month s, was there a time when you were not able to pay the mortgage or rent on time? No [facility] Start: 10-07-2021 Gender identity Identifies as female gender (finding) [facility] Start: 10-07-2021 Sexual orientation Heterosexual (finding) [facility] Start: 09-05-2024 End: 10-08-2024 Sex Female (finding) [facility] Medical Equipment Procedure Code Equipment Code Equipment Original Text Equipment Identifier Dates [id number], [id number] Start: 01-04-2022 Comment on above: Test blood sugar(s) 1 times daily. Dx: Type 2 DM - Uncontrolled E11.65 Insulin: No Test blood sugar(s) 100 times daily. Dx: Type 2 DM - Uncontrolled E11.65 Insulin: No Functional Status Date Assessment Result Facility 09-06-2024 Functional status Activity Abili ty Standby Assist [facility] Work Phone: Mental Status Date Assessment Result Facility 09-06-2024 Cognitive function Voice/Name [facility] Work Phone: 09-05-2024 Cognitive function Voice/Name [facility] Work Phone: 10-15-2022 Cognitive function Awake;Alert;Appropriat e [facility] Work Phone: 10-13-2021 Cognitive function Level Of Cons ciousness Awake;Alert;Appropriate;Follow s Commands [facility] Work Phone: 06-25-2021 Cognitive function Level Of Cons ciousness Awake;Appropriate;Follows Commands [facility] Work Phone: Clinical Notes 04-21-2021 to 01-16-2025 Telephone Encounter - Bernadette Lora DEMONSTRATOR KNITTING - 12/19/2024 1:27 PM EDTTelephone Encounter - Bernadette Lora DEMONSTRATOR KNITTING - 12/19/2024 1:27 PM EDT Note Date & Type Note Facility 01-16-2025 Note HNO ID: [id number] Author: DAJUAN ERIC MD Service: ? Author Type: Physician Type: Progress Notes Filed: 01/16/2025 10:07 Note Text: Caitlin Maldonado is a 74 year old female. She was doing reasonably well. Neck fusion was postponed. She was scheduled to see Dr. Mills in April. She had no recent TIA symptoms or headache. Her chronic conditions appeared to be stable. She will have laser surgery for some build up on her intraocular lens. ACTIVE PROBLEM LIST Type 2 Diabetes Mellitus With Diabetic Neuropathy, Without Long-Term Current Use of Insulin ([facility]) Lumbar Radiculopathy Cervical Radiculopathy Dizziness, Nonspecific Falls Frequently Hypothyroidism Paf (Paroxysmal Atrial Fibrillation) ([facility]) Mixed Hyperlipidemia Chronic Diastolic Chf (Congestive Heart Failure) ([facility]) Mild Intermittent Asthma Without Complication ([facility]) Anxiety and Depression Alternating Constipation and Diarrhea Cognitive Decline Mixed Incontinence Osteopenia Gerd (Gastroesophageal Reflux Disease) Current Outpatient Medications Medication Sig amiodarone (PACERONE) 200 mg tablet Take 200 mg by mouth once daily. linaCLOtide (LINZESS) 290 mcg capsule Take 1 capsule by mouth daily at 6 am. Take capsule on an empty stomach at least 30 minutes before a meal at the same time each day. Capsule should be swallowed whole. DO NOT chew or crush. buprenorphine (BUTRANS) 10 mcg/hour transdermal patch Apply 1 patch as directed one time a week. esomeprazole (NEXIUM) 40 mg capsule Take 1 capsule by mouth once daily. lidocaine (LIDODERM) 5 % Apply 1 patch as directed once daily. to affected area. Remove patch after 12 hours. fluticasone furoate (ARNUITY ELLIPTA) 200 mcg/actuation inhaler Inhale 1 puff as instructed once daily. GUAIFENESIN ORAL Take 10 mL by mouth every 4 hours as needed. rosuvastatin (CRESTOR) 10 mg tablet Take 1 tablet by mouth daily at bedtime. furosemide (LASIX) 40 mg tablet Take 1 tablet by mouth once daily as needed. albuterol HFA (PROVENTIL HFA, VENTOLIN HFA) 90 mcg/actuation inhaler Inhale 2 Puffs as instructed every 6 hours as needed for wheezing/shortness of breath. empagliflozin (JARDIANCE) 25 mg tablet Take 1 tablet by mouth daily with breakfast. potassium chloride ER (KLOR-CON) 20 mEq tablet Take 1 tablet by mouth once daily as needed (with furosemide). ondansetron (ZOFRAN) 4 mg tablet Take by mouth every 8 hours as needed for nausea/vomiting. tiZANidine HCl (ZANAFLEX) 2 mg capsule Take 1 capsule by mouth daily at bedtime. For muscle spasms. bisacodyl (DULCOLAX) 10 mg supp 1 Suppository by RECTAL route once daily as needed for constipation. If MOM ineffective. aluminum-magnesium hydroxide (MAG-AL) 200-200 mg/5 mL suspension Take 30 mL by mouth every 4 hours as needed (GI distress). simethicone, chewable (MYLICON) 80 mg chewable tablet Take 1 tablet by mouth four times a day as needed (gas, bloating). GLIPIZIDE ORAL Take 2.5 mg by mouth once daily. ipratropium-albuterol (DUONEB) 0.5 mg-3 mg(2.5 mg base)/3 mL nebu Inhale 3 mL as instructed every 6 hours as needed for wheezing/shortness of breath. magnesium oxide 400 mg magnesium tab Take 1 tablet by mouth at bedtime as needed (for leg cramps). magnesium hydroxide (MILK OF MAGNESIA) 400 mg/5 mL suspension Take 30 mL by mouth once daily as needed. Diaper,Brief, Adult,Disposable Size Medium, 1-2 times a day apixaban (ELIQUIS) 5 mg tab(s) Take 1 tablet by mouth two times a day. [facility] levomefolate (DEPLIN) 7.5 mg capsule Take 2 capsules by mouth once daily. blood sugar diagnostic (BLOOD GLUCOSE TEST) test strip Test blood sugar(s) 1 times daily. Dx: Type 2 DM - Uncontrolled E11.65 Insulin: No dicyclomine (BENTYL) 20 mg tablet Take 1 tablet by mouth twice daily as needed. From [facility]. traZODone (DESYREL) 150 mg tablet Take 2 [...] WOMEN ORAL) Take by mouth once daily. dimenhyDRINATE (DRAMAMINE) 50 mg tablet Take 50 mg by mouth at bedtime as needed (nausea). Zmyvour-Apuwiarzfhapc-Olgwcsuj (EXCEDRIN MIGRAINE) 250-250-65 mg per tablet Take 1 tablet by mouth every 6 hours as needed for pain. ascorbic acid, vitamin C, (VITAMIN C) 500 mg tablet Take 1 tablet by mouth once daily. gabapentin (NEURONTIN) 300 mg capsule Take 2 capsules by mouth three times a day AND 3 capsules daily at bedtime. Do all this for 180 days. PREDATOR CONTROL TRAPPER THYROID 60 mg tablet Take 1 tablet by mouth once daily. tamsulosin (FLOMAX) 0.4 mg Take 1 capsule by mouth once daily. montelukast (SINGULAIR) 10 mg tablet Take 1 tablet by (more content not included)... [facility] 01-16-2025 Note HNO ID: [id number] Author: DAJUAN ERIC MD Service: ? Author Type: Physician Type: Progress Notes Filed: 01/16/2025 10:07 Note Text: Ember Maldonado is a 74 year old female here for a Medicare wellness visit. Medicare Health Risk Assessment General Health Fair Exercise: Minutes/Day 30 min Exercise: Days/Week 5 days Alcohol: Daily Use Never Alcohol: Drinks/Day Patient does not drink Alcohol: 6 or more drinks Never Feel off balance Yes Concerns: Teeth/Dentures No Concerns: Sexual function No Troubled by feelings Anxious; Stressed; Angry; Irritable Frequency: Eating healthy diet Several days ADLs requiring help Grocery shopping; Cooking; Housework; Managing urine leakage; Handling finances; Driving Safety precautions in home/vehicle Yes Smoke, vape, chews tobacco No Difficulty hearing No Difficulty seeing No Current Providers Specialists: I have reviewed specialist-related care of the patient in the medical record. Current care team: Patient Care Team: Dajuan Eric MD as PCP - General (Internal Medicine) Taylor Alfonso APRN.CNP as Nurse Practitioner (Cardiology) Kayce Nix APRN.CNP as Reroller Hand (Internal Medicine) Outside specialists seen: Cardiology- Dr. Powers [facility]- Dr. Scotty Jackson. Environmental Safety Specialist- Dr. Rafi Arshad - Dr. Charles Blas Pain management- Dr. Marisel Carter Orthopedics: Dr. Saji Parker. Neurology: Dr. John Mills. Medical/Family history review Reviewed and updated problem list, medical/surgical/family/social history, medications, and allergies. Opioid use review Opioid Medications (last 90 days) 11/06/2024 10:21 01/16/2025 09:06 Opioid Medications hydrocodone/acetaminophen Take 1 tablet by mouth three times a day. From Dr. Diana Carter. [address] Diana Carter. PO Patient taking differently: 1 Tab BID as of 01/16/2025 9:06 AM buprenorphine Apply 1 patch as directed one time a week. 1 patch 1/WK TD Details Medication marked as long-term Patient taking differently or Patient-reported Prescribed No opioid use on file in the last 90 days Does patient have risk factors for opioid abuse? No Pain overview Current pain concerns and treatment plan reviewed. Patient under the care of a specialist. Anxiety/Depression screening Recommendation: continuing current treatment plan Cognitive screening Mini Cog Score: 3 Cognitive screening reviewed and No further action needed (score 3-5). Functional Observation Was the patient's Timed Up AND Go test unsteady or >= 12 seconds? No Advance Care Planning Patient did not wish or was not able to name a surrogate decision maker or provide an advance care plan Measurements BP 104/60 (BP Site: Left Arm, BP Position: Sitting, BP Cuff Size: Large Adult) Pulse 60 Resp 16 Ht 162.6 cm (5' 4) Wt 66.6 kg (146 lb 13.2 oz) BMI 25.20 kg/m? Vision Screening: Follows with optometry/ophthalmology Right: 2040 Left: 20/ 40 Both: 2050 Assessment/Plan Medicare annual wellness visit, subsequent (Z00.00) - Counseled on healthy diet and regular exercise - Fall avoidance information provided - Personalized prevention plan provided [facility] 12-19-2024 Telephone encounter Note Patient notified of results. Scheduled to see Dr. Mills/[facility] @ 04/22 Bernadette Lora LPN [facility] 12-19-2024 Miscellaneous Notes Patient notified of results. Scheduled to see Dr. Mills/[facility] @ 04/[address] scan with no acute findings of concern. Did she see neurology? Pt completed CT at [facility]. Please review. View External Imaging - CT Scan [ID [id number]] documented in this encounter [facility] 12-19-[address] scan with no acute findings of concern. Did she see neurology? [facility] 12-18-2024 Telephone encounter Note Pt completed CT at [facility]. Please review. View External Imaging - CT Scan [ID [id number]] [facility] 12-18-2024 Radiology Diagnostic study note [facility] Imaging Services [address] [place] [address] [id number] Brain/Head without Contrast MR#: [id number] Acct: [id number] Name: EMBER MALDONADO Rep #: [id number] : 1950 F 74 From: Doroteo Ragland MD PCP: Dr. Dajuan Eric MD Status: R EG CLI Study:Brain/Head without Contrast Date of Exa m: 12/18/24 Exam# [id number] Ordering Dr: Dajuan Cassidy MD PROCEDURE: BRAIN/HEAD WITHOUT CONTRAST 12/18/2024 REASON FOR EXAM: DIZZINESS TECHNIQUE: BRAIN/HEAD WITHOUT CONTRAST Coronal and Sagittal reconstruction series were provided. One or more dose reduction techniques were used (e.g., Automated exposure control, adjustment of the mA and/or kV according to patient size, use of iterative reconstruction technique. RADIATION DOSE SUMMARY: CTDlvol: 44.99 mGy DLP: 812.98 mGycm COMPARISON: None FINDINGS: Brain: Low density in the periventricular white matter suggests mild chronic small vessel ischemic changes. CSF Spaces: Mild generalized cerebral atrophy Sinuses/Mastoids: 10.4 mm polyp or retention cyst in the anterior aspect of the left sphenoid sinus. Bones: Unremarkable CT/Brain/Head without Contrast IMPRESSION: CHRONIC CHANGES. NO ACUTE FINDINGS. Reading Location: [facility] CC: Dr. Dajuan Eric MD ~ Banquet Manager: Signed [facility] 12-04-2024 Progress note [facility] 12-02-2024 Evaluation note Diagnosis Onset Date Resolution Right shoulder pain acute December 02, 2024 9:22am Constipation acute December 04, 2 025 9:11am GERD (gastroesophageal reflux disease) acute December 04, 2024 9:11am Hyperlipidemia acute February 27, 2025 8:46am Paroxysmal atrial fibrillation acute February 27, 2025 8:46am Sleep apnea chronic February 8:46am [facility] Work Phone: 1(145) 997-798906-23-2025 Progress [facility] [address] [place] [address] [address] [place] [address] OFFICE VISIT Date of Service: 12/02/24 MR#: [id number] Acct: [id number] Name: EMBER MALDONADO Rep #: [id number] : 1950 Provider: Dr. Kalyan Giles MD Age/Sex: 74/F Location[place] [facility] Status: Signed Intake Vital Signs 10/10/24 09:46 12/02/24 09:24 Height 5 ft 3 in 5 ft 3 in Weight: 151 lb 149 lb BMI 26.7 26.4 BP 106/59 L Blood Pressure Location Lt brachial Position Sitting Respiration 16 Pulse 60 Pulse Source NIBP Intake Visit Reasons: RIGHT SHOULDER Chief Complaint: Right shoulder and elbow pain Accompanied by: Self Is patient in pain?: Yes Pain scale (1-10): 6 Allergies Environmental Allergies: Uncoded Allergy (Severe, Verified 12/02/24 09:27) Anaphylaxis pregabalin (From Lyrica) Allergy (Severe, Verified 12/02/24 09:27) Suicidal ideations prochlorperazine (From Compazine) Allergy (Severe, Verified 12/02/24 09:27) hallucinations metformin Allergy (Unknown, Verified 12/02/24 09:27) stomach cramping Sulfa (Sulfonamide Antibiotics) Allergy (Unknown, Verified 12/02/24 09:27) unknown ketorolac (From Toradol) Allergy (Verified 12/02/24 09:27) Pain in joints doxycycline Adverse Reaction (Unknown, Verified 12/02/24 09:27) Nausea/Vom/Diarrhea Medications ?Medication ?Instructions ?Recorded ?Confirmed ?Type thyroid (pork) 60 mg tablet (PREDATOR CONTROL TRAPPER 60 mg PO DAILY thyroid 01/13/22 12/02/24 History Thyroid) ejhsndc-tkglnadfmjgmt-ugkzcdww 250 1 tab PO Q6H PRN pa in 09/15/22 12/02/24 History mg-250 mg-65 mg tablet (Excedrin Migraine) gabapentin 300 mg capsule 600 mg PO TID 09/15/2212/02 History gabapentin 300 mg capsule 900 mg PO QHS nerve pain 12/0212/02/24 History multivitamin-ferrous 1 tab PO 1700 Supplement 12/0212/02/24 History fumarate-folic acid 18 mg-400 mcg tablet (Centrum Women) albuterol sulfate 90 mcg/actuation 2 puff inhalation Q 4H PRN 09/19/22 12/02/24 Rx aerosol inhaler (Ventolin HFA) shortness of breath or wheezing #18 grams apixaban 5 mg tablet (Eliquis) 5 mg PO BID blood thinn er #60 tabs 06/23/23 12/02/24 Rx metoprolol tartrate 25 mg tablet 12.5 mg PO BID blood pressure 07/17/23 12/02/24 History dicyclomine 20 mg tablet 20 mg PO BID stomach #60 tab s 09/18/23 12/02/24 Rx linaclotide 290 mcg capsule 290 mcg PO QAM stomach #90 caps 04/10/24 12/02/24 Rx (Linzess) acetaminophen 325 mg tablet 650 mg PO Q4H PRN fever or pain 06/04/24 12/02/24 History buprenorphine 10 mcg/hour weekly 1 patch topical QWEEK 06/04/24 12/02/24 History transdermal patch empagliflozin 25 mg tablet 25 mg PO QDAY diabetes 05/1312/02/24 History (Jardiance) furosemide 40 mg tablet (Lasix) 40 mg PO QDAY PRN SOB, Edema 06/04/24 12/02/24 History glipizide 2.5 mg tablet, extended 2.5 mg PO QDAY diabe bruno 06/04/24 12/02/24 History release 24 hr hydrocodone-acetaminophen 5-325mg 1 tab PO TID pain 12/02/24 History 5mg-325mg ipratropium 0.5 mg-albuterol 3 mg 3 ml inhalation Q6H PRN shortness 06/04/24 12/02/24 History (2.5 mg base)/3 mL nebulization of breath or wheezing soln levomefolate 7.5 mg-algal oil 1 cap PO QDAY 06/04/24 0 12/02/24 History 90.314 mg capsule (Deplin (algal oil)) magnesium oxide 400 mg PO QHS Supplement 12/02/24 History simethicone 80 mg chewable tablet 80 mg PO 4-6XD PRN a bdominal 06/04/24 12/02/24 History (Gas Relief (simethicone)) distention tizanidine 2 mg capsule 4 mg PO QHS muscle spasms 12/02/24 History trazodone 150 mg tablet 300 mg PO QHS sleep 06/04/24 12/02/24 History aluminum-mag hydroxide-simethicone 30 ml PO Q4H PRN dy spepsia 07/26/24 12/02/24 History 200 mg-200 mg-20 mg/5 mL oral susp dextrose 40 % oral gel (Glucose 10 g PO Q15M PRN hypog lycemia 07/26/24 12/02/24 History Gel) fluticasone furoate 200 1 inh inhalation Q24H #30 ea 07/26/24 12/02/24 Rx mcg/actuation blister powder for inhalation (Arnuity Ellipta) magnesium hydroxide 400 mg/5 mL 30 ml PO ONCE PRN stom ach upset 07/26/24 12/02/24 History oral suspension (Milk of Magnesia) ascorbic acid (vitamin C) 500 mg 1 g PO 1700 Supplemen t 09/05/24 12/02/24 History chewable tablet (Acerola C) diphenhydramine HCl 25 mg capsule 25 mg PO Q4H PRN all ergy symptoms 09/05/24 12/02/24 History (Allergy (diphenhydramine)) fluticasone furoate 200 1 inh inhalation DAILY breat melly 09/05/24 12/02/24 History mcg/actuation blister powder for inhalation montelukast 10 mg tablet 10 mg PO QHS allergies 09/0512/02/24 History (Singulair) ondansetron HCl 8 mg tablet 8 mg PO Q8H 09/05/2412/02 History potassium chloride 20 mEq 20 meq PO DAILY PRN suppleme nt 09/05/24 12/02/24 History tablet,extended release(part/cryst) (Klor-Con M) rosuvastatin 10 mg tablet (Crestor) 10 mg PO QHS trevor sterol 09/05/24 12/02/24 History tamsulosin 0.4 mg capsule (Flomax) 0.4 mg PO DAILY pro state 09/05/24 12/02/24 History esomeprazole magnesium 40 mg 40 mg PO DAILY Supplement 09/06/24 12/02/24 History capsule,delayed release lidocaine 4 % topical patch 1 patch topical QDAY 09/2012/02/24 History nitroglycerin 0.4 mg sublingual 0.4 mg sublingual Q5M PRN 09/20/24 12/02/24 History tablet amiodarone 200 mg tablet 100 mg (1/2 x 200 mg) PO QDA Y #15 09/26/24 12/02/24 Rx tabs bisacodyl 10 mg rectal suppository 10 mg UT QDAY PRN 0 10/10/24 12/02/24 History dimenhydrinate 50 mg tablet 50 mg PO .COMPLEX PRN naus ea and 10/10/24 12/02/24 History (Dramamine) vomiting meloxicam 7.5 mg tablet 7.5 mg PO QDAY PRN 10/10/24 12/02/24 History guaifenesin 1,200 mg tablet, 1,200 mg PO .QD #90 tabs 11/26/24 12/02/24 Rx extended release 12 hr (Mucinex) Have you fallen in the past year?: Yes [facility] Medical History Right shoulder pain Hyperlipidemia Costochondritis Chronic anticoagulation Atelectasis Wears glasses Depression Anxiety Easy bruising TIA (transient ischemic attack) Difficulty swallowing Chronic cough Former smoker CPAP (continuous positive airway pressure) dependence History of echocardiogram History of stress test Cardiology follow-up encounter Acute sinusitis, unspecified Paroxysmal atrial fibrillation Essential hypertension IBS (irritable bowel syndrome) Type 2 diabetes mellitus without complication, with long-term current use of insulin Osteopenia Intractable back pain Insomnia Hypothyroidism GERD (gastroesophageal reflux disease) Folic acid deficiency Fibromyalgia Chronic fatigue syndrome ADD (attention deficit disorder) SOB (shortness of breath) Arthritis Asthma Atrial fibrillation Surgical History H/O bilateral cataract extraction History of tonsillectomy History of total abdominal hysterectomy and bilateral salpingo-oophorectomy History of cholecystectomy History of colonoscopy History of appendectomy Hx of shoulder surgery Family History Other Cancer Diabetes Heart disease Social History household members: none Smoking Status: Former smoker how long ago did patient quit smokin alcohol intake: former year quit: 1995 substance use type: former substance user Date of last use: 1969 HPI RIGHT SHOULDER Details: This documentation accurately reflects the service provided and the decisions made by me, Dr. Phyllis MD 12/02/24 0826. Part of today?s visit was documented by [ ], acting as scribe. EMBER MALDONADO is a 74 year old F here today for R shoulder pain. RHD. Patient was putting together some0 gravity chair as the shoulder began hurting no pop no acute injury patient has had chronic pain in the shoulder has had 3 shoulder operations in the past open surgeries the last 1 was in the 1980s.Has pain laterally and anteriorly worse with lifting. The patient [id number]. Lives in a assisted in [facility]. No recent treatments. Supplemental Info xr 4 view R shoulder -joint space well-maintained. Signs of a prior decompression and distal clavicle excision. No acute abnormalities. Coding Level of Care Code Attention Lens Blocker Diagnoses Right shoulder pain M25.511 Comment 78265 and CPT inject major joint Assessment and Plan Assessment and Plan (1) Right shoulder pain: Status: Acute Plan: EMBER MALDONADO is a 74 year old F here today for R shoulder pain. Wide differentialfor diagnosis for this could be impingement syndrome bursitis tendinitis tendinosis or pain from rotator cuff tear given the patient's age as well as prior 3 surgeries on the shoulder. I suggested conservative management andrés morales is on Eliquis with diabetes and lives in a assisted fairly low demand patient. They would like to start with cortisone injection will follow-up in 6 weeks timeor as needed we can do these every 3 months she understands no further questionsor concerns. Pros and cons risks and benefits of a right shoulder subacromial steroid injection were discussed. Patient wished to proceed. Risks include but not limited to infection, pain, stiffness, damage to other structures, neurovascularinjury, wear further tear of the tendon and other structures such as the skin, bleeding, allergic reaction, acute flare reaction and other risks. Obtained informed consent for injection. Posterior lateral aspect of the shoulder was prepped with chlorhexidine solutionallowed to thoroughly dry over 3 minutes. Used Gebauer spray per bottle instructions. Using sterile technique, injectedthe right subacromial joint with a 4cc 0.25% bupivacaine and 2cc 40 mg/mL kenalog. Bandage placed. The patient tolerated the injection well without any noted complication. Red flag symptoms were discussed such as redness, swelling, discharge, drainage, pain worsens or if they have any concerns to present to the ED or to call the clinic immediately. Patient counselled on non-operative and operative means of treating shoulder pain. Conservative options include but not limited to: 1. Rest and Activity Modification: Giving your shoulder time to heal by avoidingmovements that cause pain can help. This may involve limiting overhead activities or heavy lifting. 2. Physical Therapy: A physical therapist can guide you through exercises that strengthen the muscles around the shoulder, improve flexibility, and reduce strain on the rotator cuff tendon. 3. Ice and Heat Therapy: Applying ice to the shoulder can help reduce swelling and pain, especiallyafter activity. Heat can be helpful to relax tense muscles and improve blood flow before exercises. 4. Anti-Inflammatory Medications: Hcmk-qwc-hrzjibj medications like ibuprofen ornaproxen can help reduce pain and inflammation in the tendon. 5. Corticosteroid Injections: If the pain is more severe, a steroid injection can reduce inflammation in the shoulder and provide relief for a longer period. 6. Platelet-Rich Plasma (PRP) Injection: This treatment involves using your own blood to promote healing in the tendon. The plasma is rich in growth factors that can encourage tissue repair. 7. TENS (Transcutaneous Electrical Nerve Stimulation): This therapy uses a smallelectrical current to help manage pain and promote healing by stimulating nerves. Orders: Orders Shoulder min 2 Views Today M25.511 - Pain in right shoulder Clinical Quality Measures Falls Risk Screening/Assistive Devices Have you fallen in the past year?: Yes Ortho Exam General General: Yes no acute distress Neurologic: Yes alert and Yes oriented x3 Psychologic: Yes reasonable and appropriate Right Shoulder Skin/Wound: Yes CDI, No ecchymosis, No erythema and No swelling Testing: Positive Hawkin's, Neer's, empty can and belly press normal; Negative Speed's, TTP Biceps, TTP AC Joint, Drop Arm, cross arm or scapular winging SHOULDER: normal motor and sens to ax nerve, and MRU and AIN/PIN Active forward elevation 90 degrees passively 120 degrees. External rotation 35degrees. Strength inforward elevation 4+ strength in external rotation 5. Positive painful arc. 12/02/24 0955 n MD> Date _ Wallace Giles [facility] Signature: Date (if applicable) CC: ~ [facility]06-23-2025 Progress note Author Wallace Giles [facility] Note Date/Time December 02, 2024 9:[address] [facility] [address] [place] [address] [place] [id number] OFFICE VISIT Date of Service: 12/02/24 MR#: [id number] Acct: [id number] Name: EMBER MALDONADO Rep #: [id number] : 1950 Provider: Dr. Kalyan Giles MD Age/Sex: 74/F Location[place] [facility] Status: Signed Intake Vital Signs 10/10/24 09:46 12/02/24 09:24 Height 5 ft 3 in 5 ft 3 in Weight: 151 lb 149 lb BMI 26.7 26.4 BP 106/59 L Blood Pressure Location Lt brachial Position Sitting Respiration 16 Pulse 60 Pulse Source NIBP Intake Visit Reasons: RIGHT SHOULDER Chief Complaint: Right shoulder and elbow pain Accompanied by: Self Is patient in pain?: Yes Pain scale (1-10): 6 Allergies Environmental Allergies: Uncoded Allergy (Severe, Verified 12/02/24 09:27) Anaphylaxis pregabalin (From Lyrica) Allergy (Severe, Verified 12/02/24 09:27) Suicidal ideations prochlorperazine (From Compazine) Allergy (Severe, Verified 12/02/24 09:27) hallucinations metformin Allergy (Unknown, Verified 12/02/24 09:27) stomach cramping Sulfa (Sulfonamide Antibiotics) Allergy (Unknown, Verified 12/02/24 09:27) unknown ketorolac (From Toradol) Allergy (Verified 12/02/24 09:27) Pain in joints doxycycline Adverse Reaction (Unknown, Verified 12/02/24 09:27) Nausea/Vom/Diarrhea Medications ?Medication ?Instructions ?Recorded ?Confirmed ?Type thyroid (pork) 60 mg tablet (PREDATOR CONTROL TRAPPER 60 mg PO DAILY thyroid 01/13/22 12/02/24 History Thyroid) rzawkpg-ttfqdhhaoncmf-tixqpqsy 250 1 tab PO Q6H PRN pa in 09/15/22 12/02/24 History mg-250 mg-65 mg tablet (Excedrin Migraine) gabapentin 300 mg capsule 600 mg PO TID 09/15/2212/02 History gabapentin 300 mg capsule 900 mg PO QHS nerve pain 12/0212/02/24 History multivitamin-ferrous 1 tab PO 1700 Supplement 12/0212/02/24 History fumarate-folic acid 18 mg-400 mcg tablet (Centrum Women) albuterol sulfate 90 mcg/actuation 2 puff inhalation Q 4H PRN 09/19/22 12/02/24 Rx aerosol inhaler (Ventolin HFA) shortness of breath or wheezing #18 grams apixaban 5 mg tablet (Eliquis) 5 mg PO BID blood thinn er #60 tabs 06/23/23 12/02/24 Rx metoprolol tartrate 25 mg tablet 12.5 mg PO BID blood pressure 07/17/23 12/02/24 History dicyclomine 20 mg tablet 20 mg PO BID stomach #60 tab s 09/18/23 12/02/24 Rx linaclotide 290 mcg capsule 290 mcg PO QAM stomach #90 caps 04/10/24 12/02/24 Rx (Linzess) acetaminophen 325 mg tablet 650 mg PO Q4H PRN fever or pain 06/04/24 12/02/24 History buprenorphine 10 mcg/hour weekly 1 patch topical QWEEK 06/04/24 12/02/24 History transdermal patch empagliflozin 25 mg tablet 25 mg PO QDAY diabetes 05/1312/02/24 History (Jardiance) furosemide 40 mg tablet (Lasix) 40 mg PO QDAY PRN SOB, Edema 06/04/24 12/02/24 History glipizide 2.5 mg tablet, extended 2.5 mg PO QDAY diabe bruno 06/04/24 12/02/24 History release 24 hr hydrocodone-acetaminophen 5-325mg 1 tab PO TID pain 12/02/24 History 5mg-325mg ipratropium 0.5 mg-albuterol 3 mg 3 ml inhalation Q6H PRN shortness 06/04/24 12/02/24 History (2.5 mg base)/3 mL nebulization of breath or wheezing soln levomefolate 7.5 mg-algal oil 1 cap PO QDAY 06/04/24 0 12/02/24 History 90.314 mg capsule (Deplin (algal oil)) magnesium oxide 400 mg PO QHS Supplement 12/02/24 History simethicone 80 mg chewable tablet 80 mg PO 4-6XD PRN a bdominal 06/04/24 12/02/24 History (Gas Relief (simethicone)) distention tizanidine 2 mg capsule 4 mg PO QHS muscle spasms 12/02/24 History trazodone 150 mg tablet 300 mg PO QHS sleep 06/04/24 12/02/24 History aluminum-mag hydroxide-simethicone 30 ml PO Q4H PRN dy spepsia 07/26/24 12/02/24 History 200 mg-200 mg-20 mg/5 mL oral susp dextrose 40 % oral gel (Glucose 10 g PO Q15M PRN hypog lycemia 07/26/24 12/02/24 History Gel) fluticasone furoate 200 1 inh inhalation Q24H #30 ea 07/26/24 12/02/24 Rx mcg/actuation blister powder for inhalation (Arnuity Ellipta) magnesium hydroxide 400 mg/5 mL 30 ml PO ONCE PRN stom ach upset 07/26/24 12/02/24 History oral suspension (Milk of Magnesia) ascorbic acid (vitamin C) 500 mg 1 g PO 1700 Supplemen t 09/05/24 12/02/24 History chewable tablet (Acerola C) diphenhydramine HCl 25 mg capsule 25 mg PO Q4H PRN all ergy symptoms 09/05/24 12/02/24 History (Allergy (diphenhydramine)) fluticasone furoate 200 1 inh inhalation DAILY breat melly 09/05/24 12/02/24 History mcg/actuation blister powder for inhalation montelukast 10 mg tablet 10 mg PO QHS allergies 09/0512/02/24 History (Singulair) ondansetron HCl 8 mg tablet 8 mg PO Q8H 09/05/2412/02 History potassium chloride 20 mEq 20 meq PO DAILY PRN suppleme nt 09/05/24 12/02/24 History tablet,extended release(part/cryst) (Klor-Con M) rosuvastatin 10 mg tablet (Crestor) 10 mg PO QHS trevor sterol 09/05/24 12/02/24 History tamsulosin 0.4 mg capsule (Flomax) 0.4 mg PO DAILY pro state 09/05/24 12/02/24 History esomeprazole magnesium 40 mg 40 mg PO DAILY Supplement 09/06/24 12/02/24 History capsule,delayed release lidocaine 4 % topical patch 1 patch topical QDAY 09/2012/02/24 History nitroglycerin 0.4 mg sublingual 0.4 mg sublingual Q5M PRN 09/20/24 12/02/24 History tablet amiodarone 200 mg tablet 100 mg (1/2 x 200 mg) PO QDA Y #15 09/26/24 12/02/24 Rx tabs bisacodyl 10 mg rectal suppository 10 mg UT QDAY PRN 0 10/10/24 12/02/24 History dimenhydrinate 50 mg tablet 50 mg PO .COMPLEX PRN naus ea and 10/10/24 12/02/24 History (Dramamine) vomiting meloxicam 7.5 mg tablet 7.5 mg PO QDAY PRN 10/10/24 12/02/24 History guaifenesin 1,200 mg tablet, 1,200 mg PO .QD #90 tabs 11/26/24 12/02/24 Rx extended release 12 hr (Mucinex) Have you fallen in the past year?: Yes PFSH Medical History Right shoulder pain Hyperlipidemia Costochondritis Chronic anticoagulation Atelectasis Wears glasses Depression Anxiety Easy bruising TIA (transient ischemic attack) Difficulty swallowing Chronic cough Former smoker CPAP (continuous positive airway pressure) dependence History of echocardiogram History of stress test Cardiology follow-up encounter Acute sinusitis, unspecified Paroxysmal atrial fibrillation Essential hypertension IBS (irritable bowel syndrome) Type 2 diabetes mellitus without complication, with long-term current use of insulin Osteopenia Intractable back pain Insomnia Hypothyroidism GERD (gastroesophageal reflux disease) Folic acid deficiency Fibromyalgia Chronic fatigue syndrome ADD (attention deficit disorder) SOB (shortness of breath) Arthritis Asthma Atrial fibrillation Surgical History H/O bilateral cataract extraction History of tonsillectomy History of total abdominal hysterectomy and bilateral salpingo-oophorectomy History of cholecystectomy History of colonoscopy History of appendectomy Hx of shoulder surgery Family History Other Cancer Diabetes Heart disease Social History household members: none Smoking Status: Former smoker how long ago did patient quit smokin alcohol intake: former year quit: 1995 substance use type: former substance user Date of last use: 1969 HPI RIGHT SHOULDER Details: This documentation accurately reflects the service provided and the decisions made by me, Dr. Wallace Giles MD 12/02/24 8254. Part of today?s visit was documented by [ ], acting as scribe. EMBER MALDONADO is a 74 year old F here today for R shoulder pain. RHD. Patient was putting together some 0 gravity chair as the shoulder began hurting no pop no acute injury patient has had chronic pain in the shoulder has had 3 shoulder operations in the past open surgeries the last 1 was in the 1980s. Has pain laterally and anteriorly worse with lifting. The patient [id number]. Lives in a assisted in [facility]. No recent treatments. Supplemental Info xr 4 view R shoulder -joint space well-maintained. Signs of a prior decompression and distal clavicle excision. No acute abnormalities. Coding Level of Care Code Attention Lens Blocker Diagnoses Right shoulder pain M25.511 Comment 50432 and CPT inject major joint Assessment and Plan Assessment and Plan (1) Right shoulder pain: Status: Acute Plan: EMBER MALDONADO is a 74 year old F here today for R shoulder pain. Wide differentialfor diagnosis for this could be impingement syndrome bursitis tendinitis tendinosis or pain from rotator cuff tear given the patient's age as well as prior 3 surgeries on the shoulder. I suggested conservative management patient is on Eliquis with diabetes and lives in a assisted fairly low demand patient. They would like to start with cortisone injection will follow-up in 6 weeks timeor as needed we can do these every 3 months she understands no further questionsor concerns. Pros and cons risks and benefits of a right shoulder subacromial steroid injection were discussed. Patient wished to proceed. Risks include but not limited to infection, pain, stiffness, damage to other structures, neurovascularinjury, wear further tear of the tendon and other structures such as the skin, bleeding, allergic reaction, acute flare reaction and other risks. Obtained informed consent for injection. Posterior lateral aspect of the shoulder was prepped with chlorhexidine solutionallowed to thoroughly dry over 3 minutes. Used Gebauer spray per bottle instructions. Using sterile technique, injected the right subacromial joint with a 4cc 0.25% bupivacaine and 2cc 40 mg/mL kenalog. Bandage placed. The patient tolerated the injection well without any noted complication. Red flag symptoms were discussed such as redness, swelling, discharge, drainage, pain worsens or if they have any concerns to present to the ED or to call the clinic immediately. Patient counselled on non-operative and operative means of treating shoulder pain. Conservative options include but not limited to: 1. Rest and Activity Modification: Giving your shoulder time to heal by avoidingmovements that cause pain can help. This may involve limiting overhead activities or heavy lifting. 2. Physical Therapy: A physical therapist can guide you through exercises that strengthen the muscles around the shoulder, improve flexibility, and reduce strain on the rotator cuff tendon. 3. Ice and Heat Therapy: Applying ice to the shoulder can help reduce swelling and pain, especially after activity. Heat can be helpful to relax tense muscles and improve blood flow before exercises. 4. Anti-Inflammatory Medications: Wrem-arv-qjxcsao medications like ibuprofen ornaproxen can help reduce pain and inflammation in the tendon. 5. Corticosteroid Injections: If the pain is more severe, a steroid injection can reduce inflammation in the shoulder and provide relief for a longer period. 6. Platelet-Rich Plasma (PRP) Injection: This treatment involves using your own blood to promote healing in the tendon. The plasma is rich in growth factors that can encourage tissue repair. 7. TENS (Transcutaneous Electrical Nerve Stimulation): This therapy uses a smallelectrical current to help manage pain and promote healing by stimulating nerves. Orders: Orders Shoulder min 2 Views Today M25.511 - Pain in right shoulder Clinical Quality Measures Falls Risk Screening/Assistive Devices Have you fallen in the past year?: Yes Ortho Exam General General: Yes no acute distress Neurologic: Yes alert and Yes oriented x3 Psychologic: Yes reasonable and appropriate Right Shoulder Skin/Wound: Yes CDI, No ecchymosis, No erythema and No swelling Testing: Positive Hawkin's, Neer's, empty can and belly press normal; Negative Speed's, TTP Biceps, TTP AC Joint, Drop Arm, cross arm or scapular winging SHOULDER: normal motor and sens to ax nerve, and MRU and AIN/PIN Active forward elevation 90 degrees passively 120 degrees. External rotation 35degrees. Strength in forward elevation 4+ strength in external rotation 5. Positive painful arc. 12/02/24 0955 <Electronically signed by Wallace watson MD> Date _ Wallace Giles MD Cosigner Signature: Date (if applicable) CC: ~ [facility] [employer] [facility] Work Phone: [phone] Telephone encounter Note* Telephone Encounter - Andressa Ceballos MA - 11/19/2024 5:24 PM EDT Left detailed message on confidential vm at nurse station Andressa Ceballos MA [facility]06-10-2025 Miscellaneous Notes* Telephone Encounter - Andressa Ceballos MA - 11/19/2024 5:24 PM EDT Left detailed message on confidential vm at nurse station Andressa Ceballos MA * Telephone Encounter - Dajuan Eric MD - 11/19/2024 1:13 PM EDT Give 2nd dose. * Telephone Encounter - Kenyatta Rolle RN - 11/18/2024 1:35 PM EDT Radha from [facility] calls and states that patient had the first shingle shot December 2023. Radha asking if patient will have to start series over or can they just give patient thesend immunization? Please review and advise, Can leave a detailed message on phone Kenyatta Rolle RN [facility] Telephone encounter Note * Telephone Encounter - Dajuan Eric MD - 11/19/2024 1:13 PM EDT Give 2nd dose. [facility]06-09-2025 Telephone encounter Note* Telephone Encounter - Kenyatta Rolle RN - 11/18/2024 1:35 PM EDT Radha from [facility] calls and states that patient had the first shingle shot December 2023. Radha asking if patient will have to start series over or can they just give patient thesend immunization? Please review and advise, Can leave a detailed message on phone Kenyatta Rolle RN [facility]06-03-2025 Telephone encounter Note* Telephone Encounter - Mary Jo Gonzalez RN - 11/12/2024 10:49 AM EDT Patient calls to request referral to neurology and CT Brain be faxed to [facility]. Faxed as requested to [facility] and referral to neurology to [facility]. Submitted Prior Auth for Brain CT Scan. Mary Jo Gonzalez RN [facility]06-03-2025 Miscellaneous Notes* Telephone Encounter - Mary Jo Gonzalez RN - 11/12/2024 10:49 AM EDT Patient calls to request referral to neurology and CT Brain be faxed to [facility]. Faxed as requested to [facility] and referral to neurology to [facility]. Submitted Prior Auth for Brain CT Scan. Mary Jo Gonzalez RN documented in [facility] NoteHNO ID: [id number] Author: DAJUAN ERIC MD Service: ? Author Type: Physician Type: Progress Notes Filed: 11/06/2024 12:57 Note Text: This note was created using NoteWriter. Subjective Patient presents with: Preop clearance Consultation requested by Dr. Parker for an opinion regarding preoperative examination and optimization. My final recommendations will be communicated back to the requesting physician by way of shared Medical record or facsimile with accompanying form. Recording using [employer]-TEX software for draft documentation of the visit was discussed with the patient/authorized manufacturers service representative; all questions welcomed and answered. Patient/authorized manufacturers service representative agreed to proceed Patient is scheduled for anterior cervical disc fusion C3-C4 and C4-C5 on November 27. Anesthesia: general anesthesia I. Cardiovascular risk factors: Hypertension? 2. Smoking? 3. High cholesterol? 4. Diabetes? 5. Obesity? 6. Family history of premature CAD? Yes II. Cardiovascular Disease or Symptoms? Yes CAD? No CHF? Yes PAD? No CVA? Yes If I and II NEGATIVE, okay to proceed with surgery. If POSITIVE, step III. III. If POSITIVE, does patient have any of the following? Acute coronary syndrome? Unstable arrhythmias? Decompensated CHF? Yes. Recent If III POSITIVE, refer for consultation(s) and multidisciplinary team discussion. If III NEGATIVE, step IV. IV. Does patient have any of the following risk modifiers? Severe valvular heart disease. Severe pulmonary hypertension . Elevated risk congenital heart disease. Prior coronary stents or CABG. Recent stroke. CIED (Pacemaker/ICD) Frailty. Yes If risk modifiers POSITIVE, refer for consultation(s), multidisciplinary team discussion. REFERRED TO NEUROLOGY. REFERRED TO CARDIOLOGY. Ember is a 74-year-old female presenting for a pre-operative evaluation, with additional concerns about a possible TIA and sinus infection. Ember reports experiencing symptoms she attributes to a possible TIA, including tremors, jaw tremors, and dysarthria, which began in early October. She did not seek medical attention at the time, hoping the symptoms would resolve on their own. She also reports nausea and jaw locking, as well as increased drooling. She notes a significant worsening of her speech and tremors, which are noticeable to others. She denies facial or eyelid ptosis, but reports a decline in vision. She also reports intermittent weakness, primarily on the right side, and occasional numbness in the right hand. She has a history of vertigo, which has worsened this month. She also reports increased sensitivity to cold temperatures. Ember also reports a sinus infection, with symptoms of a bubble sensation in her head, hearing loss, and nausea. She has been experiencing yellow mucus and occasional epistaxis since early October. She denies fever. Ember has a history of severe headaches, which have worsened this month. She previously had nerve ablation in the occipital region, which provided temporary relief. She also reports a recent tooth loss and soreness in the area. Ember was recently admitted in late August for atrial fibrillation with RVR. She saw cardiology for follow up on October 10, and metoprolol was discontinued, since she was back in sinus rhythm. There was no statement about cardiac clearance for surgery. Review of Systems Constitutional: (-) fever Head: (+) headaches Eyes: (+) visual disturbances Ears/Nose/Mouth/Throat: (+) hearing changes, (+) congestion, (+) bloody nasal discharge, (+) jaw locking Gastrointestinal: (+) nausea Neurological: (+) tremors, (+) speech disturbance, (+) right-sided weakness, (+) left-sided weakness, (+) right-sided numbness, (+) vertigo Endocrine: (+) cold intolerance Objective BP 106/58 Pulse 68 Resp 16 Wt 68.8 kg (151 lb 10.8 oz) BMI 27.74 kg/m? Physical Exam Constitutional: General: She is not in acute distress. Appearance: She is not ill-appearing. HENT: Head: Atraumatic. Right Ear: Tympanic membrane normal. Left Ear: Tympanic membrane normal. Nose: Congestion and rhinorrhea present. Rhinorrhea is bloody. Left Nostril: Epistaxis present. Right Turbinates: Swollen. Left Turbinates: Swollen. Right Sinus: Maxillary sinus tenderness present. Left Sinus: Maxillary sinus tenderness present. Mouth/Throat: Pharynx: Oropharynx is clear. Uvula midline. No oropharyngeal exudate or posterior oropharyngeal erythema. Eyes: General: No visual field deficit. Neck: Vascular: No carotid bruit. Cardiovascular: Rate and Rhythm: Normal rate and regular rhythm. Heart sounds: S1 normal and S2 normal. No murmur heard. Pulmonary: Effort: No respiratory distress. Breath sounds: No wheezing or rales. Musculoskeletal: Right lower leg: No edema. Left lower leg: No edema. Lymphadenopathy: Cervical: No cervical adenopathy. Neurological: Menta (more content not included)...[facility]05-28-2025 History of Present illness Narrative* Dajuan Eric MD - 11/06/2024 10:54 AM EDT This note was created using Presstlerriter. Subjective Patient presents with: Preop clearance Consultation requested by Dr. Parker for an opinion regarding preoperative examination and optimization. My final recommendations will be communicated back to the requesting physician by way of sharedMedical record or facsimile with accompanying form. Recording using A-TEX software for draft documentation of the visit was discussed with the patient/authorized manufacturers service representative; all questions welcomed and answered. Patient/authorized manufacturers service representative agreed to proceed Patient is scheduled for anterior cervical disc fusion C3-C4 and C4-C5 on November 27. Anesthesia: general anesthesia I. Cardiovascular risk factors: Hypertension? 2. Smoking? 3. High cholesterol? 4. Diabetes? 5. Obesity? 6. Family history of premature CAD? Yes II. Cardiovascular Disease or Symptoms? Yes CAD? No CHF? Yes PAD? No CVA? Yes If I and II NEGATIVE, okay to proceed with surgery. If POSITIVE, step III. III. If POSITIVE, does patient have any of the following? Acute coronary syndrome? Unstable arrhythmias? Decompensated CHF? Yes. Recent If III POSITIVE, refer for consultation(s) and multidisciplinary team discussion. If III NEGATIVE, step IV. IV. Does patient have any of the following risk modifiers? Severe valvular heart disease. Severe pulmonary hypertension . Elevated risk congenital heart disease. Prior coronary stents or CABG. Recent stroke. CIED (Pacemaker/ICD) Frailty. Yes If risk modifiers POSITIVE, refer for consultation(s), multidisciplinary team discussion. REFERRED TO NEUROLOGY. REFERRED TO CARDIOLOGY. Ember is a 74-year-old female presenting for a pre-operative evaluation, with additional concerns about a possible TIA and sinus infection. Ember reports experiencing symptoms she attributes to a possible TIA, including tremors, jaw tremors, and dysarthria, which began in early October. She did not seek medical attention at the time, hoping the symptoms would resolve on their own. She also reports nausea and jaw locking, as well as increased drooling. She notes a significant worsening of her speech and tremors, which are noticeable to others. She denies facial or eyelid ptosis, but reports a decline in vision. She also reports intermittent weakness, primarily on the right side, and occasional numbness in the right hand. She has a history of vertigo, which has worsened this month. She also reports increased sensitivity to cold temperatures. Ember also reports a sinus infection, with symptoms of a bubble sensation in her head, hearing loss, and nausea. She has been experiencing yellow mucus and occasional epistaxis since early October. Shedenies fever. Ember has a history of severe headaches, which have worsened this month. She previously had nerve ablation in the occipital region, which provided temporary relief. She also reports a recent tooth loss and soreness in the area. Ember was recently admitted in late August for atrial fibrillation with RVR. She saw cardiology for follow up on October 10, and metoprolol was discontinued, since she was back in sinus rhythm. There was no statement about cardiac clearance for surgery. Review of Systems Constitutional: (-) fever Head: (+) headaches Eyes: (+) visual disturbances Ears/Nose/Mouth/Throat: (+) hearing changes, (+) congestion, (+) bloody nasal discharge, (+) jaw locking Gastrointestinal: (+) nausea Neurological: (+) tremors, (+) speech disturbance, (+) right-sided weakness, (+) left-sided weakness, (+) right-sided numbness, (+) vertigo Endocrine: (+) cold intolerance Objective BP 106/58 Pulse 68 Resp 16 Wt 68.8 kg (151 lb 10.8 oz) BMI 27.74 kg/m Physical Exam Constitutional: General: She is not in acute distress. Appearance: She is not ill-appearing. HENT: Head: Atraumatic. Right Ear: Tympanic membrane normal. Left Ear: Tympanic membrane normal. Nose: Congestion and rhinorrhea present. Rhinorrhea is bloody. Left Nostril: Epistaxis present. Right Turbinates: Swollen. Left Turbinates: Swollen. Right Sinus: Maxillary sinus tenderness present. Left Sinus: Maxillary sinus tenderness present. Mouth/Throat: Pharynx: Oropharynx is clear. Uvula midline. No oropharyngeal exudate or posterior oropharyngeal erythema. Eyes: General: No visual field deficit. Neck: Vascular: No carotid bruit. Cardiovascular: Rate and Rhythm: Normal rate and regular rhythm. Heart sounds: S1 normal and S2 normal. No murmur heard. Pulmonary: Effort: No respiratory distress. Breath sounds: No wheezing or rales. Musculoskeletal: Right lower leg: No edema. Left lower leg: No edema. Lymphadenopathy: Cervical: No cervical adenopathy. Neurological: Mental Status: She is alert and oriented to person, place, and time. Cranial Nerves: Dysarthria present. No cranial nerve deficit or facial asymmetry. Sensory: Sensory deficit (subjective decreased sensation in right upper and lower extremities.) present. Motor: No weakness, tremor, abnormal muscle tone or pronator drift. Coordination: Romberg sign positive. Frwbpo-Inft-Yqssns Test and Heel to [place] Test normal. Gait: Gait abnormal. Deep Tendon Reflexes: Reflexes are normal and symmetric. Babinski sign absent on the right side. Babinski sign absent on the left side. Comments: Using a rollator walker. 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 Cervical radiculopathy - ICD9: 723.4, ICD10: M54.12 Stable. - GABAPENTIN 300 MG CAPSULE 3. Lumbar radiculopathy - ICD9: 724.4, ICD10: M54.16 Chronic low back pain Stable. - GABAPENTIN 300 MG CAPSULE 4. Mild intermittent asthma without complication (HCC) - ICD9: 493.90, ICD10: J45.20 - Mild intermittent asthma stable - MONTELUKAST 10 MG TABLET 5. Dizziness, nonspecific - ICD9: 780.4, ICD10: R42 Worse. - CT BRAIN WO IVCON - CONSULT TO NEUROLOGY 6. Acute non-recurrent maxillary sinusitis - ICD9: 461.0, ICD10: J01.00 - Will begin treatment with as per antibiotic as written, see orders - AMOXICILLIN 875 MG TABLET 7. PAF (paroxysmal atrial fibrillation) ([facility]) - ICD9: 427.31, ICD10: I48.0 - Patient will need CARDIOLOGY CLEARANCE as well. - AMIODARONE 200 MG TABLET We discussed your concerns about a possible mini-stroke and associated symptoms: - I am ordering a CT scan of your brain to evaluate your symptoms. This is the quickest imaging option available. - I am referring you to a neurologist for further evaluation of your symptoms, including shaking, difficulty speaking, vertigo, and headaches. - Please monitor your symptoms closely. If you experience worsening weakness, facial drooping, or other concerning changes, go to the emergency room immediately. We discussed your sinus infection: - I am prescribing Amoxicillin for 7 days to treat your sinus infection. [facility] - Please take the medication as directed and let me know if your symptoms do not improve or worsen. We discussed your pre-operative evaluation: - Due to your recent symptoms and history of atrial fibrillation (AFib), I cannot clear you for surgery at this time. - I recommend that you follow up with your steak sauce maker for a pre-operative assessment. Next steps: - Complete the CT scan as soon as it is scheduled. - Follow up with the neurologist for further evaluation of your symptoms. - Contact your steak sauce maker to discuss your pre-operative clearance. - Take Amoxicillin as prescribed for your sinus infection. Please let us know if you have any new or worsening symptoms or if you have difficulty scheduling your appointments. Dajuan Eric MD [facility] encounter Note * Telephone Encounter - Bernadette Lora LPN - 09/16/2024 3:38 PM EDT Below recommendation left on identified nurse vm. Will wait for the results. Bernadette Lora LPN [facility]04-07-2025 Miscellaneous Notes* Telephone Encounter - Bernadette Lora LPN - 09/16/2024 3:38 PM EDT Below recommendation left on identified nurse vm. Will wait for the results. Bernadette Lora LPN * Telephone Encounter - Dajuan Eric MD - 09/16/2024 1:05 PM EDT Send urine for culture and sensitivity. * Telephone Encounter - Sylvia Harley LPN - 09/16/2024 11:12 AM EDT Radha with [facility] calls to report that pt has been complaining over the weekend of burning and itching with urination. Radha reports she did a multi-stick on pt and urine was positive forleuks and neg for blood and nitrates. Radha report on 3/24 urine was neg for leuks and positive for blood. Radha is asking what dr would like them to do. Call Radha with 's message. Ok to leave detailed message on nurse's vm. Sylvia Harley LPN [facility] Telephone encounter Note * Telephone Encounter - Dajuan Eric MD - 09/16/2024 1:05 PM EDT Send urine for culture and sensitivity. [facility]04-07[facility] Telephone encounter Note* Telephone Encounter - Sylvia Harley LPN - 09/16/2024 11:12 AM EDT Radha with [facility] calls to report that pt has been complaining over the weekend of burning and itching with urination. Radha reports she did a multi-stick on pt and urine was positive forleuks and neg for blood and nitrates. Radha report on 324 urine was neg for leuks and positive for blood. Radha is asking what dr would like them to do. Call Radha with 's message. Ok to leave detailed message on nurse's vm. Sylvia Harley LPN [facility]04-04-[facility]25 NoteHNO ID: [id number] Author: DAJUAN ERIC MD Service: ? Author Type: Physician Type: Progress Notes Filed: 09/13/2024 13:41 Note Text: This note was created using Presstlerriter. Subjective Patient presents with: Hospital F/U: Chris Maldonado is a 74 year old female. She was admitted 09/05 to 09/06/24 for atrial fibrillation with RVR. She was given IV diltiazem with no improvement and with hypotension, and converted to NSR with IV digoxin. She was seen by Dr. Fofana (cardiology), and no medication changes were made. She was much better. Occasional palpitations was still noted. Outside specialists seen: Cardiology- Dr. Powers [facility]- Dr. Scotty Jackson. Pulmonary/Sleep Medicine- Dr. Rafi Arshad GI- Dr. Soto Friend Pain management- Dr. Marisel Carter Spine surgery- Dr. Saji Parker DME: [employer]. Review of Systems Constitutional: Negative for fatigue, fever and unexpected weight change. Respiratory: Negative for cough, shortness of breath and wheezing. Cardiovascular: Positive for palpitations and leg swelling. Negative for chest pain. Gastrointestinal: Negative for abdominal pain, diarrhea, nausea and vomiting. Neurological: Negative for dizziness and headaches. ACTIVE PROBLEM LIST Type 2 Diabetes Mellitus With Diabetic Neuropathy, Without Long-Term Current Use of Insulin (Hcc) Lumbar Radiculopathy Cervical Radiculopathy Dizziness, Nonspecific Falls Frequently Hypothyroidism Paf (Paroxysmal Atrial Fibrillation) ([facility]) Mixed Hyperlipidemia Chronic Diastolic Chf (Congestive Heart Failure) (Hcc) Mild Intermittent Asthma Without Complication (Hcc) Anxiety and Depression Alternating Constipation and Diarrhea Cognitive Decline Mixed Incontinence Osteopenia Social History Tobacco Use Smoking status: Former Current packs/day: 0.00 Average packs/day: 2.0 packs/day for 12.0 years (24.1 ttl pk-yrs) Types: Cigarettes Start date: 1977 Quit date: 12/10/1988 Years since quittin.7 Smokeless tobacco: Never Tobacco comments: from age 27 Substance Use Topics Alcohol use: Not Currently Comment: none since 1995 Drug use: Not Currently Types: Marijuana Comment: none since 1969 Current Outpatient Medications Medication Sig GUAIFENESIN ORAL Take 10 mL by mouth every 4 hours as needed. rosuvastatin (CRESTOR) 10 mg tablet Take 1 tablet by mouth daily at bedtime. furosemide (LASIX) 40 mg tablet Take 1 tablet by mouth once daily as needed. albuterol HFA (PROVENTIL HFA, VENTOLIN HFA) 90 mcg/actuation inhaler Inhale 2 Puffs as instructed every 6 hours as needed for wheezing/shortness of breath. empagliflozin (JARDIANCE) 25 mg tablet Take 1 tablet by mouth daily with breakfast. potassium chloride ER (KLOR-CON) 20 mEq tablet Take 1 tablet by mouth once daily as needed (with furosemide). ondansetron (ZOFRAN) 4 mg tablet Take by mouth every 8 hours as needed for nausea/vomiting. tiZANidine HCl (ZANAFLEX) 2 mg capsule Take 1 capsule by mouth daily at bedtime. For muscle spasms. bisacodyl (DULCOLAX) 10 mg supp 1 Suppository by RECTAL route once daily as needed for constipation. If MOM ineffective. simethicone, chewable (MYLICON) 80 mg chewable tablet Take 1 tablet by mouth four times a day as needed (gas, bloating). gabapentin (NEURONTIN) 300 mg capsule Take 2 capsules by mouth three times a day AND 3 capsules daily at bedtime. Do all this for 90 days. Patient should start on May 02, 2024. tamsulosin (FLOMAX) 0.4 mg Take 1 capsule by mouth once daily. GLIPIZIDE ORAL Take 2.5 mg by mouth once daily. ipratropium-albuterol (DUONEB) 0.5 mg-3 mg(2.5 mg base)/3 mL nebu Inhale 3 mL as instructed every 6 hours as needed for wheezing/shortness of breath. acetaminophen (TYLENOL) 325 mg tablet 650 mg every 4 hours. As needed for elevated temperature DO NOT EXCEED 4GM in 24 HOURS magnesium oxide 400 mg magnesium tab Take 1 tablet by mouth at bedtime as needed (for leg cramps). magnesium hydroxide (MILK OF MAGNESIA) 400 mg/5 mL suspension Take 30 mL by mouth once daily as needed. Diaper,Brief, Adult,Disposable Size Medium, 1-2 times a day apixaban (ELIQUIS) 5 mg tab(s) Take 1 tablet by mouth two times a day. [facility] levomefolate (DEPLIN) 7.5 mg capsule Take 2 capsules by mouth once daily. PREDATOR CONTROL TRAPPER THYROID 60 mg tablet Take 1 tablet by mouth once daily. metoprolol tartrate, short acting, (LOPRESSOR) 25 mg tablet Take 0.5 tablets by mouth two times a day. montelukast (SINGULAIR) 10 mg tablet Take 1 tablet by mouth daily at bedtime. blood sugar diagnostic (BLOOD GLUCOSE TEST) test strip Test blood sugar(s) 1 times daily. Dx: Type 2 DM - Uncontrolled E11.65 Insulin: No dicyclomine (BENTYL) 20 mg tablet Take 1 tablet by mouth twice daily as needed. From [facility]. traZODone (DESYREL) 150 mg tablet Take 2 tablets by mouth daily at bedtime. [facility] nitroglycerin sublingual (N (more content not included)...[facility]04-04-[facility] History of Present illness Narrative* Dajuan Eric MD - 09/13/2024 11:23 AM EDT This note was created using Presstlerriter. Subjective Patient presents with: Hospital F/U: Chris Maldonado is a 74 year old female. She was admitted 09/05 to 09/06/24 for atrial fibrillation with RVR. She was given IV diltiazem with no improvement and with hypotension, and converted to NSR with IVdigoxin. She was seen by Dr. Fofana (cardiology), and no medication changes were made. She was much better. Occasional palpitations was still noted. Outside specialists seen: Cardiology- Dr. Powers [facility]- Dr. Scotty Jackson. Pulmonary/Sleep Medicine- Dr. Rafi Arshad GI- Dr. Charles Blas Pain management- Dr. Marisel Carter Spine surgery- Dr. Saji Parker DME: [employer]. Review of Systems Constitutional: Negative for fatigue, fever and unexpected weight change. Respiratory: Negative for cough, shortness of breath and wheezing. Cardiovascular: Positive for palpitations and leg swelling. Negative for chest pain. Gastrointestinal: Negative for abdominal pain, diarrhea, nausea and vomiting. Neurological: Negative for dizziness and headaches. ACTIVE PROBLEM LIST Type 2 Diabetes Mellitus With Diabetic Neuropathy, Without Long-Term Current Use of Insulin (Hcc) Lumbar Radiculopathy Cervical Radiculopathy Dizziness, Nonspecific Falls Frequently Hypothyroidism Paf (Paroxysmal Atrial Fibrillation) ([facility]) Mixed Hyperlipidemia Chronic Diastolic Chf (Congestive Heart Failure) (Hcc) Mild Intermittent Asthma Without Complication (Hcc) Anxiety and Depression Alternating Constipation and Diarrhea Cognitive Decline Mixed Incontinence Osteopenia Social History Tobacco Use Smoking status: Former Current packs/day: 0.00 Average packs/day: 2.0 packs/day for 12.0 years (24.1 ttl pk-yrs) Types: Cigarettes Start date: 1977 Quit date: 12/10/1988 Years since quittin.7 Smokeless tobacco: Never Tobacco comments: from age 27 Substance Use Topics Alcohol use: Not Currently Comment: none since 1995 Drug use: Not Currently Types: Marijuana Comment: none since 1969 Current Outpatient Medications Medication Sig GUAIFENESIN ORAL Take 10 mL by mouth every 4 hours as needed. rosuvastatin (CRESTOR) 10 mg tablet Take 1 tablet by mouth daily at bedtime. furosemide (LASIX) 40 mg tablet Take 1 tablet by mouth once daily as needed. albuterol HFA (PROVENTIL HFA, VENTOLIN HFA) 90 mcg/actuation inhaler Inhale 2 Puffs as instructed every 6 hours as needed for wheezing/shortness of breath. empagliflozin (JARDIANCE) 25 mg tablet Take 1 tablet by mouth daily with breakfast. potassium chloride ER (KLOR-CON) 20 mEq tablet Take 1 tablet by mouth once daily as needed (with furosemide). ondansetron (ZOFRAN) 4 mg tablet Take by mouth every 8 hours as needed for nausea/vomiting. tiZANidine HCl (ZANAFLEX) 2 mg capsule Take 1 capsule by mouth daily at bedtime. For muscle spasms. bisacodyl (DULCOLAX) 10 mg supp 1 Suppository by RECTAL route once daily as needed for constipation. If MOM ineffective. simethicone, chewable (MYLICON) 80 mg chewable tablet Take 1 tablet by mouth four times a day as needed (gas, bloating). gabapentin (NEURONTIN) 300 mg capsule Take 2 capsules by mouth three times a day AND 3 capsules daily at bedtime. Do all this for 90 days. Patient should start on May 02, 2024. tamsulosin (FLOMAX) 0.4 mg Take 1 capsule by mouth once daily. GLIPIZIDE ORAL Take 2.5 mg by mouth once daily. ipratropium-albuterol (DUONEB) 0.5 mg-3 mg(2.5 mg base)/3 mL nebu Inhale 3 mL as instructed every 6hours as needed for wheezing/shortness of breath. acetaminophen (TYLENOL) 325 mg tablet 650 mg every 4 hours. As needed for elevated temperature DO NOT EXCEED 4GM in 24 HOURS magnesium oxide 400 mg magnesium tab Take 1 tablet by mouth at bedtime as needed (for leg cramps). magnesium hydroxide (MILK OF MAGNESIA) 400 mg/5 mL suspension Take 30 mL by mouth once daily as needed. Diaper,Brief, Adult,Disposable Size Medium, 1-2 times a day apixaban (ELIQUIS) 5 mg tab(s) Take 1 tablet by mouth two times a day. [facility] levomefolate (DEPLIN) 7.5 mg capsule Take 2 capsules by mouth once daily. PREDATOR CONTROL TRAPPER THYROID 60 mg tablet Take 1 tablet by mouth once daily. metoprolol tartrate, short acting, (LOPRESSOR) 25 mg tablet Take 0.5 tablets by mouth two times a day. montelukast (SINGULAIR) 10 mg tablet Take 1 tablet by mouth daily at bedtime. blood sugar diagnostic (BLOOD GLUCOSE TEST) test strip Test blood sugar(s) 1 times daily. Dx: Type 2 DM - Uncontrolled E11.65 Insulin: No dicyclomine (BENTYL) 20 mg tablet Take 1 tablet by mouth twice daily as needed. From [facility]. traZODone (DESYREL) 150 mg tablet Take 2 [...] WOMEN ORAL) Take by mouth once daily. dimenhyDRINATE (DRAMAMINE) 50 mg tablet Take 50 mg by mouth at bedtime as needed (nausea). Cqzlkau-Gawsndpardlhw-Ikpjzomo (EXCEDRIN MIGRAINE) 250-250-65 mg per tablet Take 1 tablet by mouth every 6 hours as needed for pain. ascorbic acid, vitamin C, (VITAMIN C) 500 mg tablet Take 1 tablet by mouth once daily. linaCLOtide (LINZESS) 290 mcg capsule Take 1 capsule by mouth daily at 6 am. Take capsule on an empty stomach at least 30 minutes before a meal at the same time each day. Capsule should be swallowed whole. DO NOT chew or crush. HYDROcodone-acetaminophen (NORCO) 5-325 mg per tablet Take 1 tablet by mouth three times a day. From Dr. Diana Carter. buprenorphine (BUTRANS) 10 mcg/hour transdermal patch Apply 1 patch as directed one time a week. esomeprazole (NEXIUM) 40 mg capsule Take 1 capsule by mouth once daily. lidocaine (LIDODERM) 5 % Apply 1 patch as directed once daily. to affected area. Remove patch after12 hours. fluticasone furoate (ARNUITY ELLIPTA) 200 mcg/actuation inhaler Inhale 1 puff as instructed once daily. aluminum-magnesium hydroxide (MAG-AL) 200-200 mg/5 mL suspension Take 30 mL by mouth every 4 hours as needed (GI distress). Cholecalciferol, Vitamin D3, 125 mcg (5,000 unit) cap Take by mouth. (Patient not taking: Reported on 09/13/2024) No current facility-administered medications for this visit. Objective BP 100/52 (BP Site: Left Arm, BP Position: Sitting, BP Cuff Size: Large Adult) Pulse (!) 57 Temp 36.7 C (98 F) (Temporal) Resp 12 Ht 157.5 cm (5' 2) Wt 66.6 kg (146 lb 13.2 oz) SpO2 95% BMI 26.85 kg/m Physical Exam Constitutional: General: She is not in acute distress. Appearance: She is not ill-appearing. HENT: Nose: No congestion or rhinorrhea. Eyes: Conjunctiva/sclera: Conjunctivae normal. Cardiovascular: Rate and Rhythm: Normal rate and regular rhythm. Heart sounds: No murmur heard. No gallop. Pulmonary: Breath sounds: Normal breath sounds. Abdominal: Tenderness: There is no abdominal tenderness. Musculoskeletal: Right lower leg: No edema. Left lower leg: No edema. Neurological: General: No focal deficit present. Mental Status: She is alert. Comments: Ambulatory with walker. Assessment and Plan 1. Atrial fibrillation with RVR ([facility]) - ICD9: 427.31, ICD10: I48.91 (primary diagnosis) Resolved. 2. PAF (paroxysmal atrial fibrillation) ([facility]) - ICD9: 427.31, ICD10: I48.0 Continue medications. 3. Type 2 diabetes mellitus with diabetic neuropathy, without long-term current use of insulin ([facility]) - ICD9: 250.60, 357.2, ICD10: E11.40 - Controlled - Continue current medications 4. Cervical radiculopathy - ICD9: 723.4, ICD10: M54.12 Medication list updated. - HYDROCODONE 5 MG-ACETAMINOPHEN 325 MG TABLET 5. Lumbar radiculopathy - ICD9: 724.4, ICD10: M54.16 Chronic low back pain Medication list updated. 6. Gastroesophageal reflux disease, unspecified whether esophagitis present - ICD9: 530.81, ICD10: K21.9 Medication list updated. 7. Mild intermittent asthma without complication (HCC) - ICD9: 493.90, ICD10: J45.20 - Mild intermittent asthma stable Medication list updated. On medication reconciliation, a fair number of her historical medications and specialty medicationshave transitioned to being refilled under my name at pharmacy used by [facility]. Dajuan Eric MD [facility] Discharge summary Author Karine Naranjo [facility] Note Date/Time September 06, 2024 2:0 5pm [facility] Medical Records Department [address] [place] [address] Discharge Summary 09/06/24 1333 MR#: [id number] Acct: [id number] Name: EMBER MALDONADO Rep #:[id number] : 1950 74 From: Karine Naranjo DO PCP: Dr. Dajuan Eric MD Status:A DM [facility] Location: [place] [address] 1 Providers Date of Admission: 09/05/24 Date of Discharge: 09/06/24 Primary Care Physician: Dr. Dajuan Eric MD Consultations 09/06/24 00:33 Consult: Cardiology Routine Consulting Provider: [facility] Reason for Consult: AFIB; with RVR - recurrent and paroxysmal in nature. EMERGENT Consult: No MD Notified: Yes Date Notified: 09/06/24 Time Notified: 07:10 Method of Notification: Text Method of Consult:: In-Person Reason For Visit: AFIB WITH RVR, RECURRENT & PAROXMYSMAL IN Diagnosis Discharge Diagnosis (1) Chronic anticoagulation: Status: Acute Code(s): Z79.01 - emt intermediate (current) use of anticoagulants (2) Atrial fibrillation with rapid ventricular response: Status: Acute Code(s): I48.91 - Unspecified atrial fibrillation Medications at Discharge Home Medications thyroid (pork) 60 mg tablet (PREDATOR CONTROL TRAPPER Thyroid) 60 mg PO DAILY 01/13/22 ascorbate calcium (vitamin C) 500 mg tablet 500 mg PO DAILY 09/15/22 oeswhde-wbdoyybvbeoiw-yzpbhzbv 250 mg-250 mg-65 mg tablet (Excedrin Migraine) 1 tab PO Q6H PRN pain 09/15/22 gabapentin 300 mg capsule 600 mg PO TID 09/15/22 gabapentin 300 mg capsule 900 mg PO QHS 09/15/22 multivitamin-ferrous fumarate-folic acid 18 mg-400 mcg tablet (Centrum Women) 1 tab PO 1700 Supplement 09/15/22 albuterol sulfate 90 mcg/actuation aerosol inhaler (Ventolin HFA) 2 puff inhalation Q4H PRN shortness of breath or wheezing #18 grams 09/19/22 apixaban 5 mg tablet (Eliquis) 5 mg PO BID #60 tabs 06/23/23 metoprolol tartrate 25 mg tablet 12.5 mg PO BID 07/17/23 dicyclomine 20 mg tablet 20 mg PO BID #60 tabs 09/18/23 linaclotide 290 mcg capsule (Linzess) 290 mcg PO QAM #90 caps 04/10/24 acetaminophen 325 mg tablet 650 mg PO Q4H PRN fever or pain 06/04/24 buprenorphine 10 mcg/hour weekly transdermal patch 1 patch topical QWEEK 06/04/24 dimenhydrinate 50 mg tablet (Dramamine) 50 mg PO ONCE PRN nausea and vomiting 06/04/24 empagliflozin 25 mg tablet (Jardiance) 25 mg PO QDAY 06/04/24 furosemide 40 mg tablet (Lasix) 40 mg PO QDAY PRN SOB, Edema 06/04/24 glipizide 2.5 mg tablet, extended release 24 hr 2.5 mg PO QDAY 06/04/24 hydrocodone-acetaminophen 5-325mg 5mg-325mg 1 tab PO TID 06/04/24 ipratropium 0.5 mg-albuterol 3 mg (2.5 mg base)/3 mL nebulization soln 3 ml inhalation Q6H PRN shortness of breath or wheezing 06/04/24 levomefolate 7.5 mg-algal oil 90.314 mg capsule (Deplin (algal oil)) 1 cap PO QDAY 06/04/24 magnesium oxide 400 mg PO QHS Supplement 06/04/24 simethicone 80 mg chewable tablet (Gas Relief (simethicone)) 80 mg PO 4-6XD PRN abdominal distention 06/04/24 tizanidine 2 mg capsule 4 mg PO QHS 06/04/24 trazodone 150 mg tablet 300 mg PO QHS 06/04/24 aluminum-mag hydroxide-simethicone 200 mg-200 mg-20 mg/5 mL oral susp 30 ml PO Q4H PRN dyspepsia 07/26/24 dextrose 40 % oral gel (Glucose Gel) 10 g PO Q15M PRN hypoglycemia 07/26/24 fluticasone furoate 200 mcg/actuation blister powder for inhalation (Arnuity Ellipta) 1 inh inhalation Q24H #30 ea 07/26/24 magnesium hydroxide 400 mg/5 mL oral suspension (Milk of Magnesia) 30 ml PO ONCEPRN stomach upset 07/26/24 ascorbic acid (vitamin C) 500 mg chewable tablet (Acerola C) 1 g PO 1700 Supplement 09/05/24 diphenhydramine HCl 25 mg capsule (Allergy (diphenhydramine)) 25 mg PO Q4H PRN allergy symptoms 09/05/24 fluticasone furoate 200 mcg/actuation blister powder for inhalation 1 inh inhalation DAILY 09/05/24 montelukast 10 mg tablet (Singulair) 10 mg PO QHS 09/05/24 ondansetron HCl 8 mg tablet 8 mg PO Q8H 09/05/24 potassium chloride 20 mEq tablet,extended release(part/cryst) (Klor-Con M) 20 meq PO DAILY PRN supplement 09/05/24 rosuvastatin 10 mg tablet (Crestor) 10 mg PO QHS 09/05/24 tamsulosin 0.4 mg capsule (Flomax) 0.4 mg PO DAILY 09/05/24 esomeprazole magnesium 40 mg capsule,delayed release 40 mg PO DAILY Supplement 09/06/24 guaifenesin 1,200 mg tablet, extended release 12 hr (Mucinex) 1,200 mg PO DAILY 09/06/24 Hospital Course Operations None Procedures EKG and - (Chest x-ray) Summary of Care Provided Minutes Spent on Discharge: 25 Hospital Course: Mrs. Maldonado is a 19-year-old female who presented emergency department [facility] on 09/05/2024 with a chief complaint of palpitations. Patienthas a history of atrial fibrillation with RVR and is on metoprolol and Eliquis at baseline. She reported she began having palpitations about 1 PM and they didnot go away so she decided to present to the emergency department. It was abrupt onset. She feels that she has been intermittently going in and out of atrial fibrillation for the past few days. She also complained of generalized weakness and some dyspnea on exertion when she was having her palpitations. Shedenied chest pain. EKG in the emergency department showed A-fib with RVR with aheart rate of about 140 bpm. Vital signs otherwise showed a temperature of 98.4, respiratory rate is 19, blood pressure was 119/91, and pulse ox of 96% on room air. CBC was unremarkable. Chemistry panel was unremarkable. Liver functions were normal. Lipids were normal. TSH 1.55. Folate was 19. Chest x-raywas unremarkable. She was initially placed on a Cardizem drip in the emergency department however this dropped her blood pressure. She was given a one-time dose of digoxin which helped bring her blood pressure down and then she spontaneously converted back to normal sinus rhythm. Cardiology was consulted and felt no changes were required at this time and she could be discharged back home on her's same medications. She will need follow-up with cardiology within the next 1 to 2 weeks and that this was indicated on her discharge paperwork. Patient is to call Monday to set up an appointment. I have also asked that she follow-up with her primary care physician within the next 1 to 2 weeks. Patientwas able to be discharged home in stable condition on 09/06/2024. Discharge diagnoses: A-fib with RVR-resolved History of paroxysmal atrial fibrillation Shortness of breath-resolved Fatigue-resolved Chronic anticoagulation for A-fib Essential hypertension Hyperlipidemia Hypothyroidism History of tobacco abuse Asthma DM-2 Diabetic neuropathy Fibromyalgia TIA History of ADD Migraine headaches History IBS GERD Depression/anxiety Osteoporosis Physical Exam Const alert, oriented x3, no apparent distress, no limitations and well nourished Constitutional Narrative: Overweight, older, white female, sitting up in bed, appears comfortable, nontoxic, nursing at bedside General Appearance: cooperative, comfortable, well kempt and well developed Exam Limitations: no limitations Nutritional Appearance: overweight HEENT normocephalic, hearing grossly normal bilaterally and moist oral mucous membranes HEENT Narrative: Dentition is poor, Mallampati 2, no thrush Resp normal respiratory effort, no retractions, no use of accessory muscles and clearto auscultation bilaterally Auscultation: Negative for rales, rhonchi or wheezes Cardio regular rate, regular rhythm, S1 normal heart sound, S2 normal heart sound, no murmurs, no rub, no gallops and no clicks GI normal to inspection, nondistended, normoactive bowel sounds, soft to palpation and non-tender Extremity no clubbing, cyanosis or edema Extremity Narrative: Pedal and radial pulses are 2+ Neuro oriented x3, moves all extremities and no focal motor deficits Speech: speech normal Psych affect normal Psych Narrative: Very pleasant, eye contact is good, patient interacts appropriately Weight / BMI Weight Weight: 66.6 kg Body Mass Index (BMI) 26.8 ABG / Lab / Microbiology Data 09/06/24 02:54 09/06/24 02:54 Laboratory: Laboratory Results - last 24 hr 09/05/24 19:13: Hemoglobin A1c 6.7 09/05/24 19:33: WBC 9.4, RBC 4.48, Hgb 13.4, Hct 41.4, MCV 92.4, MCH 29.9, MCHC 32.4, RDW Std Deviation 41.4, RDW Coeff of Dave 12.0, Plt Count 225, MPV 9.4, Immature Gran % (Auto) 0.300, Neut % (Auto) 65.0, Lymph % (Auto) 23.2, [place] % (Auto) 10.4 H, Eos % (Auto) 0.7, Baso % (Auto) 0.4, Absolute Neuts (auto) 6.1, Absolute Lymphs (auto) 2.18, Nucleated RBC % 0, Sodium 139, Potassium 4.2, Chloride 104, Carbon Dioxide 21.6, Anion Gap 14, BUN 19, Creatinine 1.01, Estim Creat Clear Calc 46.80 L, Est GFR (MDRD) Non-Af 59 L, BUN/Creatinine Ratio 18.3,Glucose 157 H, Calcium 8.7, Troponin T High Sens 13 09/05/24 22:16: Magnesium 2.0, Troponin T Hi Sens 2 Hr 14, TSH 1.550 09/06/24 00:12: Serum Folate 19.00 09/06/24 01:27: POC Glucose 132 H 09/06/24 02:54: WBC 8.6, RBC 4.18 L, Hgb 12.3, Hct 38.1, MCV 91.1, MCH 29.4, MCHC 32.3, RDW Std Deviation 40.6, RDW Coeff of Dave 12.1, Plt Count 206, MPV 9.1, Immature Gran % (Auto) 0.200, Neut % (Auto) 70.1 H, Lymph % (Auto) 18.6 L, [place] % (Auto) 9.7, Eos % (Auto) 0.8, Baso % (Auto) 0.6, Absolute Neuts (auto) 6.0, Absolute Lymphs (auto) 1.60, Nucleated RBC % 0, Sodium 141, Potassium 4.2, Chloride 107, Carbon Dioxide 22.2, Anion Gap 11, BUN 19, Creatinine 0.77, Estim Creat Clear Calc 56.82, Est GFR (MDRD) Non-Af 82, BUN/Creatinine Ratio 24.7 H, Glucose 146 H, Calcium 8.1, Phosphorus 2.8, Total Bilirubin < 0.15, AST 17, ALT 19, Alkaline Phosphatase 77, Troponin T Hi Sens 4Hr 14, Total Protein 4.7 L, Albumin 3.1 L, Globulin 1.6 L, Albumin/Globulin Ratio 2.0, Triglycerides 63, Cholesterol 129, LDL Cholesterol, Calc 59, VLDL Cholesterol 13, HDL Cholesterol 58, Cholesterol/HDL Ratio 2.24 09/06/24 06:24: POC Glucose 122 H 09/06/24 11:48: POC Glucose 232 H Radiography Diagnostic Testing: Radiology Impression Chest X-Ray 09/05/24 20:02 IMPRESSION: No Acute Findings. Reading Location: [id number] D/C Instructions Discharge Diet: Low fat / Low cholesterol and 1800 Calorie Control Diet Discharge Activity: Return to Normal Activity DC O2, CPAP, BIPAP Needs Home O2 Discharge instructions: No Meaningful Use Info Meaningful Use Meaningful Use Diagnoses (Choose all that apply): None applicable Ischemic Stroke Statin Dosing Therapy Reference: STATIN DOSE THERAPY REFERENCE: * Patients > 75 years receive moderate or high dose statin therapy. * Patients 75 years or YOUNGER should receive HIGH intensity statin dose unless contraindicated. You will be required to document reason for non-treatment if statin daily dose does not meet guidelines. HIGH DOSE STATIN THERAPY DAILY Atorvastatin > than or = to 40 mg Rosuvastatin > than or = to 20 mg Amlodipine + Atorvastatin > than or = to 2.5/40 mg Ezetimibe + Simvastatin 10/80 mg Simvastatin 80mg Discharge Plan Admission Admit Date/Time: 09/05/24 23:40 Primary Reason for Your Visit: Palpitations Attending Provider: Karine Naranjo Primary Care Provider: Dajuan Eric Consulting Providers: Jairo Ram; Morena Cruz; Judd Higgins; Dorita Mcmanus; Vidal Wang; Gio Villalba; John Fofana; Donis Schmitz; Sae Tam; Harry Guzman; Kendall Jack; Anthony Juarez NP; Jodie Whitaker PA; Arvin Verdin Instructions Additional Instructions / Restrictions: 1. At cardiology did not recommend any changes in medication at this time 2. Please follow-up with cardiology as noted below if you have any more symptoms please call the office Discharge Orders/Prescriptions Prescriptions: Continued thyroid (pork) [PREDATOR CONTROL TRAPPER Thyroid] 60 mg tablet 60 mg PO DAILY gabapentin 300 mg capsule 600 mg PO TID gabapentin 300 mg capsule 900 mg PO QHS Centrum Women 18-400 mg-mcg tablet 1 tab PO 1700 Excedrin Migraine 250-250-65 mg tablet 1 tab PO Q6H PRN (Reason: pain) ascorbate calcium (vitamin C) 500 mg tablet 500 mg PO DAILY dimenhydrinate [Dramamine] 50 mg tablet 50 mg PO ONCE PRN (Reason: nausea and vomiting) hydrocodone-acetaminophen 5-325 mg tablet 1 tab PO TID Patient Comments: TAKE 1 TABLET BY MOUTH TWICE DAILY FOR 28 DAYS trazodone 150 mg tablet 300 mg PO QHS albuterol sulfate [Ventolin HFA] 90 mcg/actuation HFA aerosol inhaler 2 puff inhalation Q4H PRN (Reason: shortness of breath or wheezing) Qty: 18 6RF Eliquis 5 mg tablet 5 mg PO BID Qty: 60 11RF furosemide [Lasix] 40 mg tablet 40 mg PO QDAY PRN (Reason: SOB, Edema) dextrose [Glucose Gel] 40 % gel 10 g PO Q15M PRN (Reason: hypoglycemia) Rx Instructions: until symptoms of low blood sugar are controlled magnesium hydroxide [Milk of Magnesia] 400 mg/5 mL suspension 30 ml PO ONCE PRN (Reason: stomach upset) alum-mag hydroxide-simeth 200-200-20 mg/5 mL suspension 30 ml PO Q4H PRN (Reason: dyspepsia) Arnuity Ellipta 200 mcg/actuation blister with device 1 inh inhalation Q24H Qty: 30 5RF acetaminophen 325 mg tablet 650 mg PO Q4H PRN (Reason: fever or pain) buprenorphine 10 mcg/hour patch weekly 1 patch topical QWEEK Patient Comments: next dose on monday Deplin (algal oil) 7.5-90.314 mg capsule 1 cap PO QDAY glipizide 2.5 mg tablet extended release 24hr 2.5 mg PO QDAY ipratropium-albuterol 0.5 mg-3 mg(2.5 mg base)/3 mL solution for nebulization 3 ml inhalation Q6H PRN (Reason: shortness of breath or wheezing) Jardiance 25 mg tablet 25 mg PO QDAY magnesium oxide 400 mg magnesium tablet 400 mg PO QHS simethicone [Gas Relief (simethicone)] 80 mg tablet,chewable 80 mg PO 4-6XD PRN (Reason: abdominal distention) tizanidine 2 mg capsule 4 mg PO QHS Linzess 290 mcg capsule 290 mcg PO QAM Qty: 90 3RF metoprolol tartrate 25 mg tablet 12.5 mg PO BID fluticasone furoate 200 mcg/actuation blister with device 1 inh inhalation DAILY ascorbic acid (vitamin C) [Acerola C] 500 mg tablet,chewable 1 g PO 1700 diphenhydramine HCl [Allergy (diphenhydramine)] 25 mg capsule 25 mg PO Q4H PRN (Reason: allergy symptoms) rosuvastatin [Crestor] 10 mg tablet 10 mg PO QHS tamsulosin [Flomax] 0.4 mg capsule 0.4 mg PO DAILY potassium chloride [Klor-Con M20] 20 mEq tablet,ER particles/crystals 20 meq PO DAILY PRN (Reason: supplement) Patient Comments: only when pt takes lasix. montelukast [Singulair] 10 mg tablet 10 mg PO QHS ondansetron HCl 8 mg tablet 8 mg PO Q8H Rx Instructions: 1st dose 1-2 hr before radiation guaifenesin [Mucinex] 1,200 mg tablet extended release 12hr 1,200 mg PO DAILY esomeprazole magnesium 40 mg capsule,delayed release(DR/EC) 40 mg PO DAILY dicyclomine 20 mg tablet 20 mg PO BID Qty: 60 6RF Referrals / Follow Up: Dajuan Eric MD [Primary Care Provider] - Jodie Whitaker PA [Med Staff - [facility]] - 09/26/24 1:30 pm Disposition Disposition (needs filled in before D/C Order can be placed): Home, Self Care Charges/Coding Visit Charges Inpatient E&M: 80162 Disch Hosp 09/06/24 1404 <Electronically signed by Karine Naranjo DO> Cosigner Signature (if applicable): CC: Dr. Karine Naranjo DO; Dr. Dajuan Eric MD; SUKHI Novak~ Signed [facility] Work Phone: [phone] Discharge summary [facility] Medical Records Department [address] [place] [address] Discharge Summary 09/06/24 1333 MR#: [id number] Acct: [id number] Name: EMBER MALDONADO Rep #:[id number] : 1950 74 From: Karine Naranjo DO PCP: Dr. Dajuan Eric MD Status:A DM [facility] Location: [place] [address] Providers Date of Admission: 09/05/24 Date of Discharge: 09/06/24 Primary Care Physician: Dr. Dajuan Eric MD Consultations 09/06/24 00:33 Consult: Cardiology Routine Consulting Provider: [facility] Reason for Consult: AFIB; with RVR - recurrent and paroxysmal in nature. EMERGENT Consult: No MD Notified: Yes Date Notified: 09/06/24 Time Notified: 07:10 Method of Notification: Text Method of Consult:: In-Person Reason For Visit: AFIB WITH RVR, RECURRENT & PAROXMYSMAL IN Diagnosis Discharge Diagnosis (1) Chronic anticoagulation: Status: Acute Code(s): Z79.01 - emt intermediate (current) use of anticoagulants (2) Atrial fibrillation with rapid ventricular response: Status: Acute Code(s): I48.91 - Unspecified atrial fibrillation Medications at Discharge Home Medications thyroid (pork) 60 mg tablet (PREDATOR CONTROL TRAPPER Thyroid) 60 mg PO DAILY 01/13/22 ascorbate calcium (vitamin C) 500 mg tablet 500 mg PO DAILY 09/15/22 senqisp-pblsfavxjfvvg-lscdmjze 250 mg-250 mg-65 mg tablet (Excedrin Migraine) 1 tab PO Q6H PRN pain09/15/22 gabapentin 300 mg capsule 600 mg PO TID 09/15/22 gabapentin 300 mg capsule 900 mg PO QHS 09/15/22 multivitamin-ferrous fumarate-folic acid 18 mg-400 mcg tablet (Centrum Women) 1 tab PO 1700 Supplement 09/15/22 albuterol sulfate 90 mcg/actuation aerosol inhaler (Ventolin HFA) 2 puff inhalation Q4H PRN shortness of breath or wheezing #18 grams 09/19/22 apixaban 5 mg tablet (Eliquis) 5 mg PO BID #60 tabs 06/23/23 metoprolol tartrate 25 mg tablet 12.5 mg PO BID 07/17/23 dicyclomine 20 mg tablet 20 mg PO BID #60 tabs 09/18/23 linaclotide 290 mcg capsule (Linzess) 290 mcg PO QAM #90 caps 04/10/24 acetaminophen 325 mg tablet 650 mg PO Q4H PRN fever or pain 06/04/24 buprenorphine 10 mcg/hour weekly transdermal patch 1 patch topical QWEEK 06/04/24 dimenhydrinate 50 mg tablet (Dramamine) 50 mg PO ONCE PRN nausea and vomiting 06/04/24 empagliflozin 25 mg tablet (Jardiance) 25 mg PO QDAY 06/04/24 furosemide 40 mg tablet (Lasix) 40 mg PO QDAY PRN SOB, Edema 06/04/24 glipizide 2.5 mg tablet, extended release 24 hr 2.5 mg PO QDAY 06/04/24 hydrocodone-acetaminophen 5-325mg 5mg-325mg 1 tab PO TID 06/04/24 ipratropium 0.5 mg-albuterol 3 mg (2.5 mg base)/3 mL nebulization soln 3 ml inhalation Q6H PRN shortness of breath or wheezing 06/04/24 levomefolate 7.5 mg-algal oil 90.314 mg capsule (Deplin (algal oil)) 1 cap PO QDAY 06/04/24 magnesium oxide 400 mg PO QHS Supplement 06/04/24 simethicone 80 mg chewable tablet (Gas Relief (simethicone)) 80 mg PO 4-6XD PRN abdominal distention 06/04/24 tizanidine 2 mg capsule 4 mg PO QHS 06/04/24 trazodone 150 mg tablet 300 mg PO QHS 06/04/24 aluminum-mag hydroxide-simethicone 200 mg-200 mg-20 mg/5 mL oral susp 30 ml PO Q4H PRN dyspepsia 07/26/24 dextrose 40 % oral gel (Glucose Gel) 10 g PO Q15M PRN hypoglycemia 07/26/24 fluticasone furoate 200 mcg/actuation blister powder for inhalation (Arnuity Ellipta) 1 inh inhalation Q24H #30 ea 07/26/24 magnesium hydroxide 400 mg/5 mL oral suspension (Milk of Magnesia) 30 ml PO ONCEPRN stomach upset 07/26/24 ascorbic acid (vitamin C) 500 mg chewable tablet (Acerola C) 1 g PO 1700 Supplement 09/05/24 diphenhydramine HCl 25 mg capsule (Allergy (diphenhydramine)) 25 mg PO Q4H PRN allergy symptoms 09/05/24 fluticasone furoate 200 mcg/actuation blister powder for inhalation 1 inh inhalation DAILY 09/05/24 montelukast 10 mg tablet (Singulair) 10 mg PO QHS 09/05/24 ondansetron HCl 8 mg tablet 8 mg PO Q8H 09/05/24 potassium chloride 20 mEq tablet,extended release(part/cryst) (Klor-Con M) 20 meq PO DAILY PRN supplement 09/05/24 rosuvastatin 10 mg tablet (Crestor) 10 mg PO QHS 09/05/24 tamsulosin 0.4 mg capsule (Flomax) 0.4 mg PO DAILY 09/05/24 esomeprazole magnesium 40 mg capsule,delayed release 40 mg PO DAILY Supplement 09/06/24 guaifenesin 1,200 mg tablet, extended release 12 hr (Mucinex) 1,200 mg PO DAILY 09/06/24 Hospital Course Operations None Procedures EKG and - (Chest x-ray) Summary of Care Provided Minutes Spent on Discharge: 25 Hospital Course: Mrs. Maldonado is a 19-year-old female who presented emergency department [facility] on 09/05/2024 with a chief complaint of palpitations. Patienthas a history of atrial fibrillation with RVR and is on metoprolol and Eliquis at baseline. She reported she began having palpitations about 1 PM and they didnot go away so she decided to present to the emergency department. It was abrupt onset. She feels that she has been intermittently going in and out of atrial fibrillation for the past few days. She also complained of generalized weakness and some dyspnea on exertion when she was havingher palpitations. Shedenied chest pain. EKG in the emergency department showed A-fib with RVR with aheart rate of about 140 bpm. Vital signs otherwise showed a temperature of 98.4, respiratory rate is 19, blood pressure was 119/91, and pulse ox of 96% on room air. CBC was unremarkable. Chemistry panel was unremarkable. Liver functions were normal. Lipids were normal. TSH 1.55. Folate was 19. Chest x- raywas unremarkable. She was initially placed on a Cardizem drip in the emergency department however this dropped her blood pressure. She was given a one-time dose of digoxin which helped bring her blood pressure down and then she spontaneously converted back to normal sinus rhythm. Cardiology was consulted and felt no changes were required at this time and she could be discharged back home onher's same medications. She will need follow-up with cardiology within the next 1 to 2 weeks and that this was indicated on her discharge paperwork. Patient is to call Monday to set up an appointment. I have also asked that she follow-up with her primary care physician within the next 1 to 2 weeks. Patientwas able to be discharged home in stable condition on 09/06/2024. Discharge diagnoses: A-fib with RVR-resolved History of paroxysmal atrial fibrillation Shortness of breath-resolved Fatigue-resolved Chronic anticoagulation for A-fib Essential hypertension Hyperlipidemia Hypothyroidism History of tobacco abuse Asthma DM-2 Diabetic neuropathy Fibromyalgia TIA History of ADD Migraine headaches History IBS GERD Depression/anxiety Osteoporosis Physical Exam Const alert, oriented x3, no apparent distress, no limitations and well nourished Constitutional Narrative: Overweight, older, white female, sitting up in bed, appears comfortable, nontoxic, nursing at bedside General Appearance: cooperative, comfortable, well kempt and well developed Exam Limitations: no limitations Nutritional Appearance: overweight HEENT normocephalic, hearing grossly normal bilaterally and moist oral mucous membranes HEENT Narrative: Dentition is poor, Mallampati 2, no thrush Resp normal respiratory effort, no retractions, no use of accessory muscles and clearto auscultation bilaterally Auscultation: Negative for rales, rhonchi or wheezes Cardio regular rate, regular rhythm, S1 normal heart sound, S2 normal heart sound, no murmurs, no rub, no gallops and no clicks GI normal to inspection, nondistended, normoactive bowel sounds, soft to palpation and non-tender Extremity no clubbing, cyanosis or edema Extremity Narrative: Pedal and radial pulses are 2+ Neuro oriented x3, moves all extremities and no focal motor deficits Speech: speech normal Psych affect normal Psych Narrative: Very pleasant, eye contact is good, patient interacts appropriately Weight / BMI Weight Weight: 66.6 kg Body Mass Index (BMI) 26.8 ABG / Lab / Microbiology Data 09/06/24 02:54 09/06/24 02:54 Laboratory: Laboratory Results - last 24 hr 09/05/24 19:13: Hemoglobin A1c 6.7 09/05/24 19:33: WBC 9.4, RBC 4.48, Hgb 13.4, Hct 41.4, MCV 92.4, MCH 29.9, MCHC 32.4, RDW Std Deviation 41.4, RDW Coeff of Dave 12.0, Plt Count 225, MPV 9.4, Immature Gran % (Auto) 0.300, Neut % (Auto) 65.0, Lymph % (Auto) 23.2, [place] % (Auto) 10.4 H, Eos % (Auto) 0.7, Baso % (Auto) 0.4, Absolute Neuts (auto) 6.1, Absolute Lymphs (auto) 2.18, Nucleated RBC % 0, Sodium 139, Potassium 4.2, Chloride 104, Carbon Dioxide 21.6, Anion Gap 14, BUN 19, Creatinine 1.01, Estim Creat Clear Calc 46.80 L, Est GFR (MDRD) Non-Af 59 L, BUN/Creatinine Ratio 18.3,Glucose 157 H, Calcium 8.7, Troponin T High Sens 13 09/05/24 22:16: Magnesium 2.0, Troponin T Hi Sens 2 Hr 14, TSH 1.550 09/06/24 00:12: Serum Folate 19.00 09/06/24 01:27: POC Glucose 132 H 09/06/24 02:54: WBC 8.6, RBC 4.18 L, Hgb 12.3, Hct 38.1, MCV 91.1, MCH 29.4, MCHC 32.3, RDW Std Deviation 40.6, RDW Coeff of Dave 12.1, Plt Count 206, MPV 9.1, Immature Gran % (Auto) 0.200, Neut % (Auto) 70.1 H, Lymph % (Auto) 18.6 L, [place] % (Auto) 9.7, Eos % (Auto) 0.8, Baso % (Auto) 0.6, Absolute Neuts (auto) 6.0, Absolute Lymphs (auto) 1.60, Nucleated RBC % 0, Sodium 141, Potassium 4.2, Chloride 107, Carbon Dioxide 22.2, Anion Gap 11, BUN 19, Creatinine 0.77, Estim Creat Clear Calc 56.82, EstGFR (MDRD) Non-Af 82, BUN/Creatinine Ratio 24.7 H, Glucose 146 H, Calcium 8.1, Phosphorus 2.8, Total Bilirubin < 0.15, AST 17, ALT 19, Alkaline Phosphatase 77, Troponin T Hi Sens 4Hr 14, Total Protein 4.7 L, Albumin 3.1 L, Globulin 1.6 L, Albumin/Globulin Ratio 2.0, Triglycerides 63, [id number], LDL Cholesterol, Calc 59, VLDL Cholesterol 13, HDL Cholesterol 58, Cholesterol/HDL Ratio 2.24 09/06/24 06:24: POC Glucose 122 H 09/06/24 11:48: POC Glucose 232 H Radiography Diagnostic Testing: Radiology Impression Chest X-Ray 09/05/24 20:02 IMPRESSION: No Acute Findings. Reading Location: [facility] D/C Instructions Discharge Diet: Low fat / Low cholesterol and 1800 Calorie Control Diet Discharge Activity: Return to Normal Activity DC O2, CPAP, BIPAP Needs Home O2 Discharge instructions: No Meaningful Use Info Meaningful Use Meaningful Use Diagnoses (Choose all that apply): None applicable Ischemic Stroke Statin Dosing Therapy Reference: STATIN DOSE THERAPY REFERENCE: * Patients > 75 years receive moderate or high dose statin therapy. * Patients 75 years or YOUNGER should receive HIGH intensity statin dose unless contraindicated. You will be required to document reason for non-treatment if statin daily dose does not meet guidelines. HIGH DOSE STATIN THERAPY DAILY Atorvastatin > than or = to 40 mg Rosuvastatin > than or = to 20 mg Amlodipine + Atorvastatin > than or = to 2.5/40 mg Ezetimibe + Simvastatin 10/80 mg Simvastatin 80mg Discharge Plan Admission Admit Date/Time: 09/05/24 23:40 Primary Reason for Your Visit: Palpitations Attending Provider: Karine Naranjo Primary Care Provider: Dajuan Eric Consulting Providers: Jairo Ram; Morena Cruz; Judd Higgins; Dorita Mcmanus; Vidal Wang; Gio Villalba; John Fofana; Donis Schmitz; Sae Tam; Harry Guzman; Kendall Jack; Anthony Juarez [employer]ATOR [employer]PER; Jodie Whitaker PA; Arvin Verdin Instructions Additional Instructions / Restrictions: 1. At cardiology did not recommend any changes in medication at this time 2. Please follow-up with cardiology as noted below if you have any more symptoms please call the office Discharge Orders/Prescriptions Prescriptions: Continued thyroid (pork) [PREDATOR [employer] TRAPPER Thyroid] 60 mg tablet 60 mg PO DAILY gabapentin 300 mg capsule 600 mg PO TID gabapentin 300 mg capsule 900 mg PO QHS Centrum Women 18-400 mg-mcg tablet 1 tab PO 1700 Excedrin Migraine 250-250-65 mg tablet 1 tab PO Q6H PRN (Reason: pain) ascorbate calcium (vitamin C) 500 mg tablet 500 mg PO DAILY dimenhydrinate [Dramamine] 50 mg tablet 50 mg PO ONCE PRN (Reason: nausea and vomiting) hydrocodone-acetaminophen 5-325 mg tablet 1 tab PO TID Patient Comments: TAKE 1 TABLET BY MOUTH TWICE DAILY FOR 28 DAYS trazodone 150 mg tablet 300 mg PO QHS albuterol sulfate [Ventolin HFA] 90 mcg/actuation HFA aerosol inhaler 2 puff inhalation Q4H PRN (Reason: shortness of breath or wheezing) Qty: 18 6RF Eliquis 5 mg tablet 5 mg PO BID Qty: 60 11RF furosemide [Lasix] 40 mg tablet 40 mg PO QDAY PRN (Reason: SOB, Edema) dextrose [Glucose Gel] 40 % gel 10 g PO Q15M PRN (Reason: hypoglycemia) Rx Instructions: until symptoms of low blood sugar are controlled magnesium hydroxide [Milk of Magnesia] 400 mg/5 mL suspension 30 ml PO ONCE PRN (Reason: stomach upset) alum-mag hydroxide-simeth 200-200-20 mg/5 mL suspension 30 ml PO Q4H PRN (Reason: dyspepsia) Arnuity Ellipta 200 mcg/actuation blister with device 1 inh inhalation Q24H Qty: 30 5RF acetaminophen 325 mg tablet 650 mg PO Q4H PRN (Reason: fever or pain) buprenorphine 10 mcg/hour patch weekly 1 patch topical QWEEK Patient Comments: next dose on monday Deplin (algal oil) 7.5-90.314 mg capsule 1 cap PO QDAY glipizide 2.5 mg tablet extended release 24hr 2.5 mg PO QDAY ipratropium-albuterol 0.5 mg-3 mg(2.5 mg base)/3 mL solution for nebulization 3 ml inhalation Q6H PRN (Reason: shortness of breath or wheezing) Jardiance 25 mg tablet 25 mg PO QDAY magnesium oxide 400 mg magnesium tablet 400 mg PO QHS simethicone [Gas Relief (simethicone)] 80 mg tablet,chewable 80 mg PO 4-6XD PRN (Reason: abdominal distention) tizanidine 2 mg capsule 4 mg PO QHS Linzess 290 mcg capsule 290 mcg PO QAM Qty: 90 3RF metoprolol tartrate 25 mg tablet 12.5 mg PO BID fluticasone furoate 200 mcg/actuation blister with device 1 inh inhalation DAILY ascorbic acid (vitamin C) [Acerola C] 500 mg tablet,chewable 1 g PO 1700 diphenhydramine HCl [Allergy (diphenhydramine)] 25 mg capsule 25 mg PO Q4H PRN (Reason: allergy symptoms) rosuvastatin [Crestor] 10 mg tablet 10 mg PO QHS tamsulosin [Flomax] 0.4 mg capsule 0.4 mg PO DAILY potassium chloride [Klor-Con M20] 20 mEq tablet,ER particles/crystals 20 meq PO DAILY PRN (Reason: supplement) Patient Comments: only when pt takes lasix. montelukast [Singulair] 10 mg tablet 10 mg PO QHS ondansetron HCl 8 mg tablet 8 mg PO Q8H Rx Instructions: 1st dose 1-2 hr before radiation guaifenesin [Mucinex] 1,200 mg tablet extended release 12hr 1,200 mg PO DAILY esomeprazole magnesium 40 mg capsule,delayed release(DR/EC) 40 mg PO DAILY dicyclomine 20 mg tablet 20 mg PO BID Qty: 60 6RF Referrals / Follow Up: Dajuan Eric MD [Primary Care Provider] - Jodie Whitaker PA [Med Staff - [facility]] - 09/26/24 1:30 pm Disposition Disposition (needs filled in before D/C Order can be placed): Home, Self Care Charges/Coding Visit Charges Inpatient E&M: 23547 Disch Hosp 09/06/24 1405 Cosigner Signature (if applicable): CC: Dr. Karine Naranjo DO; Dr. Dajuan Eric MD; SUKHI Novak~ Signed [facility]03-28-[address] [facility] History and physical note Author Jairo Hackett [facility] Note Date/Time September 06, 2024 6:3 4am [facility] Medical Records Department [address] [place] [address] H&P Exam - Hospitalist 09/05/24 4558 MR#: [id number] Acct: [id number] Name: EMBER MALDONADO Rep #:[id number] : 1950 74 From: Jairo Jones DO PCP: Dr. Dajuan Eric MD Status:A DM [facility] Location: [place] [address] HPI - General General Date of Admission: 09/05/24 Date of Service: 09/05/24 Chief Complaint: Palpitations. MACIE MALDONADO, is a 74 F with a past medical history of essential hypertension; on metoprolol and furosemide, hyperlipidemia; on rosuvastatin, hypothyroidism; on replacement, overweight; with BMI of 26.8 this admission, RIVKA; on CPAP, former tobacco abuse (quit 1988), history of asthma (since age 25); on montelukast, fluticasone and prn albuterol, DM-2; on empagliflozin and glipizide, diabetic neuropathy and fibromyalgia; on gabapentin TID/HS, paroxysmal atrial fibrillation; on apixaban followed by [facility], history of TIA (2020), history of ADD, history of migraine headaches; on prn Excedrin q. 6 hours, history of folate deficiency; on replacement, history of Right shoulder surgery x 3, history of LINH-BSO, history of cholecystectomy, history of appendectomy, history of IBS; primarily of constipation-type on linaclotide, GERD; on esomeprazole, depression with anxiety; on trazodone, history of muscle spasms; on prn tizanidine, osteoporosis and OA; with chronic back pain syndrome on hydrocodone-acetaminophen TID who presents to [facility] ER complaining of palpitations. Ms. Maldonado reports her acute symptoms began at ~1:00 PM today with the abrupt- onsetof palpitations that have been persistent since that time so she decided to comein for further evaluation and treatment. She admits to intermittently going in and out of atrial fibrillation for the past few days. She also endorses a history of generalized weakness and SEYMOUR that are typical of her previous bouts of atrial fibrillation; with RVR. She denies associated chest pain, fever, chills, nausea, vomiting, diarrhea, constipation, abdominal pain, chest pain, lower extremity edema, headache or rash. In the ER she was noted to have EKG evidence of Atrial Fibrillation; with RVR at ~140 bpm and she was then admitted to the PCU under observation status for ongoing care for a stay that is expectedto be less than 2 midnights. [facility] Medical History Atelectasis Wears glasses Depression Anxiety Easy bruising TIA (transient ischemic attack) Difficulty swallowing Chronic cough Former smoker CPAP (continuous positive airway pressure) dependence History of echocardiogram History of stress test Cardiology follow-up encounter Acute sinusitis, unspecified Paroxysmal atrial fibrillation Essential hypertension IBS (irritable bowel syndrome) Type 2 diabetes mellitus without complication, with long-term current use of insulin Osteopenia Intractable back pain Insomnia Hypothyroidism GERD (gastroesophageal reflux disease) Folic acid deficiency Fibromyalgia Chronic fatigue syndrome ADD (attention deficit disorder) SOB (shortness of breath) Arthritis Asthma Atrial fibrillation Home Medications ?Medication ?Instructions ?Recorded ?Last Taken ?Type thyroid (pork) 60 mg tablet ([employer] TRAPPER 60 mg PO DAILY 2 Unknown History Thyroid) ascorbate calcium (vitamin C) 500 500 mg PO DAILY 12/02 Unknown History mg tablet [id number]-agueiqifreahb-beiabvwa 250 1 tab PO Q6H PRN pa in 09/15/22 Unknown History mg-250 mg-65 mg tablet (Excedrin Migraine) gabapentin 300 mg capsule 600 mg PO TID 09/15/22 Unkno wn History gabapentin 300 mg capsule 900 mg PO QHS 09/15/2209/05 History multivitamin-ferrous 1 tab PO DAILY 09/15/2210/03 History fumarate-folic acid 18 mg-400 mcg tablet (Centrum Women) albuterol sulfate 90 mcg/actuation 2 puff inhalation Q 4H PRN 09/19/22 Unknown Rx aerosol inhaler (Ventolin HFA) shortness of breath or wheezing #18 grams apixaban 5 mg tablet (Eliquis) 5 mg PO BID #60 tabs 08/03/23 Rx metoprolol tartrate 25 mg tablet 12.5 mg PO BID Unknown History dicyclomine 20 mg tablet 20 mg PO BID #60 tabs Unknown Rx esomeprazole magnesium 40 mg 40 mg PO QDAY #90 caps Unknown Rx capsule,delayed release linaclotide 290 mcg capsule 290 mcg PO QAM #90 caps Unknown Rx (Linzess) acetaminophen 325 mg tablet 650 mg PO Q4H PRN fever or pain 06/04/24 Unknown History buprenorphine 10 mcg/hour weekly 1 patch topical QWEEK 06/04/24 08/31/24 History transdermal patch dimenhydrinate 50 mg tablet 50 mg PO ONCE PRN nausea a nd 06/04/24 Unknown History (Dramamine) vomiting empagliflozin 25 mg tablet 25 mg PO QDAY 06/04/24 Unkn own History (Jardiance) furosemide 40 mg tablet (Lasix) 40 mg PO QDAY PRN SOB, Edema 06/04/24 Unknown History glipizide 2.5 mg tablet, extended 2.5 mg PO QDAY 06/0409/05/24 History release 24 hr hydrocodone-acetaminophen 5-325mg 1 tab PO TID 4 09/05/24 History 5mg-325mg ipratropium 0.5 mg-albuterol 3 mg 3 ml inhalation Q6H PRN shortness 06/04/24 Unknown History (2.5 mg base)/3 mL nebulization of breath or wheezing soln levomefolate 7.5 mg-algal oil 1 cap PO QDAY 06/04/24 U nknown History 90.314 mg capsule (Deplin (algal oil)) magnesium oxide 400 mg PO QDAY 06/04/24 Unkn own History simethicone 80 mg chewable tablet 80 mg PO 4-6XD PRN a bdominal 06/04/24 Unknown History (Gas Relief (simethicone)) distention tizanidine 2 mg capsule 4 mg PO QHS 06/04/24 Unknown History trazodone 150 mg tablet 300 mg PO QHS 06/04/24 Unkno wn History aluminum-mag hydroxide-simethicone 30 ml PO Q4H PRN dy spepsia 07/26/24 Unknown History 200 mg-200 mg-20 mg/5 mL oral susp dextrose 40 % oral gel (Glucose 10 g PO Q15M PRN hypog lycemia 07/26/24 Unknown History Gel) fluticasone furoate 200 1 inh inhalation Q24H #30 ea 07/26/24 Unknown Rx mcg/actuation blister powder for inhalation (Arnuity Ellipta) magnesium hydroxide 400 mg/5 mL 30 ml PO ONCE PRN stom ach upset 07/26/24 Unknown History oral suspension (Milk of Magnesia) ascorbic acid (vitamin C) 500 mg 1 g PO DAILY 09/05/24 Unknown History chewable tablet (Acerola C) diphenhydramine HCl 25 mg capsule 25 mg PO Q4H PRN all ergy symptoms 09/05/24 Unknown History (Allergy (diphenhydramine)) fluticasone furoate 200 1 inh inhalation DAILY 09/05 Unknown History mcg/actuation blister powder for inhalation montelukast 10 mg tablet 10 mg PO QHS 09/05/24 Unknow n History (Singulair) ondansetron HCl 8 mg tablet 8 mg PO Q8H 09/05/24 Unkno wn History potassium chloride 20 mEq 20 meq PO DAILY PRN suppleme nt 09/05/24 Unknown History tablet,extended release(part/cryst) (Klor-Con M) rosuvastatin 10 mg tablet (Crestor) 10 mg PO QHS 09/05 Unknown History tamsulosin 0.4 mg capsule (Flomax) 0.4 mg PO DAILY Unknown History guaifenesin 1,200 mg tablet, 1,200 mg PO DAILY 5 09/05/24 History extended release 12 hr (Mucinex) Allergy/AdvReac Type Severity Reaction Status Date / Time Environmental Allergies: Allergy Severe Anaphylaxis Verified 09/05/24 19:34 Uncoded pregabalin (From Lyrica) Allergy Severe Suicidal Verified 09/05/24 19:34 ideations prochlorperazine (From Allergy Severe hallucinati Verified 09/05/24 19:34 Compazine) ons metformin Allergy Unknown stomach Verified 09/05/24 19:34 cramping Sulfa (Sulfonamide Allergy Unknown unknown Verified 09/05/24 19:34 Antibiotics) ketorolac (From Toradol) Allergy Pain in Verified 09/05/24 19:34 joints doxycycline AdvReac Unknown Nausea/Vom/ Verified 09/05/24 19:34 Diarrhea Family History Other Cancer Diabetes Heart disease Surgical History H/O bilateral cataract extraction History of tonsillectomy History of total abdominal hysterectomy and bilateral salpingo-oophorectomy History of cholecystectomy History of colonoscopy History of appendectomy Hx of shoulder surgery Social History household members: none Smoking Status: Former smoker how long ago did patient quit smokin alcohol intake: former year quit: 1995 substance use type: former substance user Date of last use: 1969 ROS ROS Narrative Review of Systems: Constitutional: Patient denies fever or chills. Eyes: Patient denies changes in vision or discharge from eyes. ENT: Patient denies runny nose, sore throat or ear pain. Resp: Patient admits to SEYMOUR with chronic cough. CV: Patient admits to palpitations but she denies chest pain or LE edema. GI: Patient denies abdominal pain, nausea, vomiting, diarrhea or constipation. : Patient denies dysuria or hematuria. MSK: Patient admits to generalized weakness but she denies arthralgias or myalgias. Skin: Patient denies rash, abscess, wounds or jaundice. Psych: Patient denies symptoms of uncontrolled depression or anxiety. Neuro: Patient denies headache, paresthesias or focal neurologic deficits. Allergy: Patient denies lip swelling, tongue swelling or urticaria. Hematology: Patient admits to easy bleeding and bruising on apixaban. Endocrinology: Patient denies polyuria, polydipsia, polyphagia or heat/cold intolerance. 14 point ROS otherwise negative except for positives noted above in HPI. Vital Signs Vital Signs Vital Signs: 09/05/24 19:24 09/05/24 19:25 09/05/24 20:05 Temperature 98.4 F Temperature Source Oral Pulse Rate 140 H Respiratory Rate 19 H Blood Pressure 119/91 H Blood Pressure Mean 100 Pulse Ox 96 Oxygen Delivery Method Room Air Room Air Room Air Oxygen Flow Rate (L/min) 94 09/05/24 20:20 09/05/24 21:00 09/05/24 22:00 Temperature Temperature Source Pulse Rate 134 H 113 H 123 H Respiratory Rate 20 H 18 22 H Blood Pressure 100/64 103/64 97/68 Blood Pressure Mean 76 77 77 Pulse Ox 98 95 97 Oxygen Delivery Method Room Air Room Air Room Air Oxygen Flow Rate (L/min) 09/05/24 22:42 Temperature Temperature Source Pulse Rate 136 H Respiratory Rate 12 Blood Pressure 99/81 H Blood Pressure Mean 87 Pulse Ox 94 Oxygen Delivery Method Oxygen Flow Rate (L/min) Weight Weight: 151 lb 3.794 oz Body Mass Index (BMI) 26.8 Physical Exam Const alert, oriented x3, no apparent distress, average body habitus and healthy appearing General Appearance: cooperative HEENT normocephalic, head/scalp atraumatic, hearing grossly normal bilaterally and moist oral mucous membranes Eyes PERRL and EOMs intact bilaterally Neck no lymphadenopathy and supple Resp normal respiratory effort, no retractions, no use of accessory muscles and clearto auscultation bilaterally Cardio Cardio Narrative: Irregularly irregular. GI normal to inspection, nondistended, normoactive bowel sounds, soft to palpation,non-tender and non-distended Extremity normal to inspection, full ROM and no clubbing, cyanosis or edema Skin Skin Narrative: Patient has no evidence of rash, abscess, wounds or jaundice. Neuro oriented x3, CN's II-XII intact bilaterally, moves all extremities and no focal motor deficits Sensorium / Orientation: awake, alert, oriented to person, oriented to place andoriented to time Speech: speech normal Psych affect normal Results Medical Records Data Attestation: I reviewed the patient's medical records Lab / Micro Data Attestation: I reviewed the patient's lab results. 09/06/24 02:54 09/06/24 02:54 Labs: Laboratory Results - last 24 hr 09/05/24 19:33: WBC 9.4, RBC 4.48, Hgb 13.4, Hct 41.4, MCV 92.4, MCH 29.9, MCHC 32.4, RDW Std Deviation 41.4, RDW Coeff of Dave 12.0, Plt Count 225, MPV 9.4, Immature Gran % (Auto) 0.300, Neut % (Auto) 65.0, Lymph % (Auto) 23.2, [place] % (Auto) 10.4 H, Eos % (Auto) 0.7, Baso % (Auto) 0.4, Absolute Neuts (auto) 6.1, Absolute Lymphs (auto) 2.18, Nucleated RBC % 0, Sodium 139, Potassium 4.2, Chloride 104, Carbon Dioxide 21.6, Anion Gap 14, BUN 19, Creatinine 1.01, Estim Creat Clear Calc 46.80 L, Est GFR (MDRD) Non-Af 59 L, BUN/Creatinine Ratio 18.3,Glucose 157 H, Calcium 8.7, Troponin T High Sens 13 Rhythm Strip Rhythm Strip: A-fib Rate: 133 Ectopy: None Imaging Radiology Impression Chest X-Ray 09/05/24 20:02 IMPRESSION: No Acute Findings. Reading Location: [facility] Assessment & Plan Assessment/Plan (1) Atrial fibrillation with rapid ventricular response: (2) Chronic anticoagulation: (3) Generalized weakness: (4) Dyspnea on exertion: (5) Essential hypertension: PLAN: Plan 1. Atrial Fibrillation; with RVR at ~140 bpm; recurrent and paroxysmal in nature - Admit to PCU under observation status. We had to stop IV diltiazem begun in the ER due to hypotension so she was treated with one dose of IV digoxin with conversion back to NSR. Resume apixaban as previous. Check TSH and serialize troponin. Give acetaminophen prn for [id number] (level 1-5/10) pain or fever. Finally, we will consult [facility] to see this patient on-rounds in the AM for further recommendations with help appreciated inadvance. 2. Generalized Weakness with SEYMOUR due to #1 - PT/OT and Case Management to consult and treat on-rounds in the AM for further recommendations with help appreciated in advance. 3. Essential Hypertension; on metoprolol and furosemide - Maintain current regimen. 4. Hyperlipidemia; on rosuvastatin - Resume statin and check Lipid Profile. 5. Hypothyroidism; on replacement - Continue current therapy plus check TSH. 6. Overweight; with BMI of 26.8 this admission plus RIVKA; on CPAP - Weight loss will be recommended. Resume nocturnal CPAP. 7. Former tobacco abuse (quit 1988) - Noted. 8. History of asthma (since age 25); on montelukast, fluticasone and prn albuterol - Maintain current treatment. 9. DM-2; on empagliflozin and glipizide - Hold oral hypoglycemics. Give ADA/cardiac diet. FSBS q. AC/HS plus lowest-intensity SSI. Check HgbA1c to objectively assess quality of diabetic control. 10. Diabetic neuropathy and fibromyalgia; on gabapentin TID/HS - Continue gabapentin as before. 11. History of TIA (2020) - Noted. 12. History of ADD - Noted with patient currently not on treatment. 13. History of migraine headaches; on prn Excedrin q. 6 hours - Stable with no complaints of headache at this time. 14. History of folate deficiency; on replacement - Check folic acid level and continue replacement. 15. History of Right shoulder surgery x 3 - Noted. 16. History of LINH-BSO - Noted for the sake of completeness. 17. History of cholecystectomy - Noted. 18. History of appendectomy - Noted. 19. History of IBS; primarily of constipation-type on linaclotide - Maintain current treatment. 20. GERD; on esomeprazole - Continue PPI as before. 21. Depression with anxiety; on trazodone - Resume trazodone as previous. 22. History of muscle spasms; on prn tizanidine - Maintain current regimen. 23. Osteoporosis - Stable. 24. OA; with chronic back pain syndrome on hydrocodone-acetaminophen TID - Continue this agent for severe (level 6-10/10) pain. 25. DVT prophylaxis - Patient already on apixaban for #1 which will be continued. Total time: Approximately (but not less than) 70 minutes. Charges/Coding Visit Charges OBSV E&M: 64483 Observ/hosp same date L2 09/06/24 0634 <Electronically signed by Jairo Ram DO> Cosigner Signature (if applicable): CC: Dr. Jairo Ram DO; Dr. Dajuan Eric MD~ Signed [facility] Work Phone: [phone] 317-153603-28-2025 History and physical note [facility] Medical Records Department [address] [place] [id number] H&P Exam - Hospitalist 09/05/24 3588 MR#: [id number] Acct: [id number] Name: EMBER MALDONADO Rep #:[id number] : 1950 74 From: Jairo Jones DO PCP: Dr. Dajuan Eric MD Status:A DM JESSICA Location: [place] [address] HPI - General General Date of Admission: 09/05/24 Date of Service: 09/05/24 Chief Complaint: Palpitations. HPI Narrative EMBER MALDONADO, is a 74 F with a past medical history of essential hypertension; on metoprolol and furosemide, hyperlipidemia; on rosuvastatin, hypothyroidism; on replacement, overweight; with BMI of 26.8this admission, RIVKA; on CPAP, former tobacco abuse (quit 1988), history of asthma (since age 25); on montelukast, fluticasone and prn albuterol, DM-2; on empagliflozin and glipizide, diabetic neuropathy and fibromyalgia; on gabapentin TID/HS, paroxysmal atrial fibrillation; on apixaban followed by [facility], history of TIA (2020), history of ADD, history of migraine headaches; on prn Excedrin q. 6 hours, history of folate deficiency; on replacement, history of Right shoulder surgery x3, history of LINH-BSO, history of cholecystectomy, history of appendectomy, history of IBS; primarily of constipation-type on linaclotide, GERD; on esomeprazole, depression with anxiety; on trazodone, history of muscle spasms; on prn tizanidine, osteoporosis and OA; with chronic back pain syndrome on hydrocodone-acetaminophen TID who presents to [facility] ER complaining of palpitations. Ms. Maldonado reports her acute symptoms began at ~1:00 PM today with the abrupt- onsetof palpitations that have been persistent since that time so she decided to comein for further evaluation and treatment. She admits to intermittently going in and out of atrial fibrillation for the past few days. She also endorses a history of generalized weakness and SEYMOUR that are typical of her previous bouts of atrial fibrillation; with RVR. She denies associated chest pain, fever, chills, nausea, vomiting, diarrhea, constipation, abdominal pain, chest pain, lower extremity edema, headache or rash. In the ER shewas noted to have EKG evidence of Atrial Fibrillation; with RVR at ~140 bpm and she was then admitted to the PCU under observation status for ongoing care for a stay that is expectedto be less than 2midnights. [facility] Medical History Atelectasis Wears glasses Depression Anxiety Easy bruising TIA (transient ischemic attack) Difficulty swallowing Chronic cough Former smoker CPAP (continuous positive airway pressure) dependence History of echocardiogram History of stress test Cardiology follow-up encounter Acute sinusitis, unspecified Paroxysmal atrial fibrillation Essential hypertension IBS (irritable bowel syndrome) Type 2 diabetes mellitus without complication, with long-term current use of insulin Osteopenia Intractable back pain Insomnia Hypothyroidism GERD (gastroesophageal reflux disease) Folic acid deficiency Fibromyalgia Chronic fatigue syndrome ADD (attention deficit disorder) SOB (shortness of breath) Arthritis Asthma Atrial fibrillation Home Medications ?Medication ?Instructions ?Recorded ?Last Taken ?Type thyroid (pork) 60 mg tablet (PREDATOR CONTROL TRAPPER 60 mg PO DAILY 2 Unknown History Thyroid) ascorbate calcium (vitamin C) 500 500 mg PO DAILY 12/02 Unknown History mg tablet pdvwzck-lpfaeywkzyoch-phhpbvdn 250 1 tab PO Q6H PRN pa in 09/15/22 Unknown History mg-250 mg-65 mg tablet (Excedrin Migraine) gabapentin 300 mg capsule 600 mg PO TID 09/15/22 Unkno wn History gabapentin 300 mg capsule 900 mg PO QHS 09/15/2209/05 History multivitamin-ferrous 1 tab PO DAILY 09/15/2210/03 History fumarate-folic acid 18 mg-400 mcg tablet (Centrum Women) albuterol sulfate 90 mcg/actuation 2 puff inhalation Q 4H PRN 09/19/22 Unknown Rx aerosol inhaler (Ventolin HFA) shortness of breath or wheezing #18 grams apixaban 5 mg tablet (Eliquis) 5 mg PO BID #60 tabs 08/03/23 Rx metoprolol tartrate 25 mg tablet 12.5 mg PO BID Unknown History dicyclomine 20 mg tablet 20 mg PO BID #60 tabs Unknown Rx esomeprazole magnesium 40 mg 40 mg PO QDAY #90 caps Unknown Rx capsule,delayed release linaclotide 290 mcg capsule 290 mcg PO QAM #90 caps Unknown Rx (Linzess) acetaminophen 325 mg tablet 650 mg PO Q4H PRN fever or pain 06/04/24 Unknown History buprenorphine 10 mcg/hour weekly 1 patch topical QWEEK 06/04/24 08/31/24 History transdermal patch dimenhydrinate 50 mg tablet 50 mg PO ONCE PRN nausea a nd 06/04/24 Unknown History (Dramamine) vomiting empagliflozin 25 mg tablet 25 mg PO QDAY 06/04/24 Unkn own History (Jardiance) furosemide 40 mg tablet (Lasix) 40 mg PO QDAY PRN SOB, Edema 06/04/24 Unknown History glipizide 2.5 mg tablet, extended 2.5 mg PO QDAY 06/0409/05/24 History release 24 hr hydrocodone-acetaminophen 5-325mg 1 tab PO TID 4 09/05/24 History 5mg-325mg ipratropium 0.5 mg-albuterol 3 mg 3 ml inhalation Q6H PRN shortness 06/04/24 Unknown History (2.5 mg base)/3 mL nebulization of breath or wheezing soln levomefolate 7.5 mg-algal oil 1 cap PO QDAY 06/04/24 U nknown History 90.314 mg capsule (Deplin (algal oil)) magnesium oxide 400 mg PO QDAY 06/04/24 Unkn own History simethicone 80 mg chewable tablet 80 mg PO 4-6XD PRN a bdominal 06/04/24 Unknown History (Gas Relief (simethicone)) distention tizanidine 2 mg capsule 4 mg PO QHS 06/04/24 Unknown History trazodone 150 mg tablet 300 mg PO QHS 06/04/24 Unkno wn History aluminum-mag hydroxide-simethicone 30 ml PO Q4H PRN dy spepsia 07/26/24 Unknown History 200 mg-200 mg-20 mg/5 mL oral susp dextrose 40 % oral gel (Glucose 10 g PO Q15M PRN hypog lycemia 07/26/24 Unknown History Gel) fluticasone furoate 200 1 inh inhalation Q24H #30 ea 07/26/24 Unknown Rx mcg/actuation blister powder for inhalation (Arnuity Ellipta) magnesium hydroxide 400 mg/5 mL 30 ml PO ONCE PRN stom ach upset 07/26/24 Unknown History oral suspension (Milk of Magnesia) ascorbic acid (vitamin C) 500 mg 1 g PO DAILY 09/05/24 Unknown History chewable tablet (Acerola C) diphenhydramine HCl 25 mg capsule 25 mg PO Q4H PRN all ergy symptoms 09/05/24 Unknown History (Allergy (diphenhydramine)) fluticasone furoate 200 1 inh inhalation DAILY 09/05 Unknown History mcg/actuation blister powder for inhalation montelukast 10 mg tablet 10 mg PO QHS 09/05/24 Unknow n History (Singulair) ondansetron HCl 8 mg tablet 8 mg PO Q8H 09/05/24 Unkno wn History potassium chloride 20 mEq 20 meq PO DAILY PRN suppleme nt 09/05/24 Unknown History tablet,extended release(part/cryst) (Klor-Con M) rosuvastatin 10 mg tablet (Crestor) 10 mg PO QHS 09/05 Unknown History tamsulosin 0.4 mg capsule (Flomax) 0.4 mg PO DAILY Unknown History guaifenesin 1,200 mg tablet, 1,200 mg PO DAILY 5 09/05/24 History extended release 12 hr (Mucinex) Allergy/AdvReac Type Severity Reaction Status Date / Time Environmental Allergies: Allergy Severe Anaphylaxis Verified 09/05/24 19:34 Uncoded pregabalin (From Lyrica) Allergy Severe Suicidal Verified 09/05/24 19:34 ideations prochlorperazine (From Allergy Severe hallucinati Verified 09/05/24 19:34 Compazine) ons metformin Allergy Unknown stomach Verified 09/05/24 19:34 cramping Sulfa (Sulfonamide Allergy Unknown unknown Verified 09/05/24 19:34 Antibiotics) ketorolac (From Toradol) Allergy Pain in Verified 09/05/24 19:34 joints doxycycline AdvReac Unknown Nausea/Vom/ Verified 09/05/24 19:34 Diarrhea Family History Other Cancer Diabetes Heart disease Surgical History H/O bilateral cataract extraction History of tonsillectomy History of total abdominal hysterectomy and bilateral salpingo-oophorectomy History of cholecystectomy History of colonoscopy History of appendectomy Hx of shoulder surgery Social History household members: none Smoking Status: Former smoker how long ago did patient quit smokin alcohol intake: former year quit: 1995 substance use type: former substance user Date of last use: 1969 ROS ROS Narrative Review of Systems: Constitutional: Patient denies fever or chills. Eyes: Patient denies changes in vision or discharge from eyes. ENT: Patient denies runny nose, sore throat or ear pain. Resp: Patient admits to SEYMOUR with chronic cough. CV: Patient admits to palpitations but she denies chest pain or LE edema. GI: Patient denies abdominal pain, nausea, vomiting, diarrhea or constipation. : Patient denies dysuria or hematuria. MSK: Patient admits to generalized weakness but she denies arthralgias or myalgias. Skin: Patient denies rash, abscess, wounds or jaundice. Psych: Patient denies symptoms of uncontrolled depression or anxiety. Neuro: Patient denies headache, paresthesias or focal neurologic deficits. Allergy: Patient denies lip swelling, tongue swelling or urticaria. Hematology: Patient admits to easy bleeding and bruising on apixaban. Endocrinology: Patient denies polyuria, polydipsia, polyphagia or heat/cold intolerance. 14 point ROS otherwise negative except for positives noted above in HPI. Vital Signs Vital Signs Vital Signs: 09/05/24 19:24 09/05/24 19:25 09/05/24 20:05 Temperature 98.4 F Temperature Source Oral Pulse Rate 140 H Respiratory Rate 19 H Blood Pressure 119/91 H Blood Pressure Mean 100 Pulse Ox 96 Oxygen Delivery Method Room Air Room Air Room Air Oxygen Flow Rate (L/min) 94 09/05/24 20:20 09/05/24 21:00 09/05/24 22:00 Temperature Temperature Source Pulse Rate 134 H 113 H 123 H Respiratory Rate 20 H 18 22 H Blood Pressure 100/64 103/64 97/68 Blood Pressure Mean 76 77 77 Pulse Ox 98 95 97 Oxygen Delivery Method Room Air Room Air Room Air Oxygen Flow Rate (L/min) 09/05/24 22:42 Temperature Temperature Source Pulse Rate 136 H Respiratory Rate 12 Blood Pressure 99/81 H Blood Pressure Mean 87 Pulse Ox 94 Oxygen Delivery Method Oxygen Flow Rate (L/min) Weight Weight: 151 lb 3.794 oz Body Mass Index (BMI) 26.8 Physical Exam Const alert, oriented x3, no apparent distress, average body habitus and healthy appearing General Appearance: cooperative HEENT normocephalic, head/scalp atraumatic, hearing grossly normal bilaterally and moist oral mucous membranes Eyes PERRL and EOMs intact bilaterally Neck no lymphadenopathy and supple Resp normal respiratory effort, no retractions, no use of accessory muscles and clearto auscultation bilaterally Cardio Cardio Narrative: Irregularly irregular. GI normal to inspection, nondistended, normoactive bowel sounds, soft to palpation,non-tender and non-distended Extremity normal to inspection, full ROM and no clubbing, cyanosis or edema Skin Skin Narrative: Patient has no evidence of rash, abscess, wounds or jaundice. Neuro oriented x3, CN's II-XII intact bilaterally, moves all extremities and no focal motor deficits Sensorium / Orientation: awake, alert, oriented to person, oriented to place andoriented to time Speech: speech normal Psych affect normal Results Medical Records Data Attestation: I reviewed the patient's medical records Lab / Micro Data Attestation: I reviewed the patient's lab results. 09/06/24 02:54 09/06/24 02:54 Labs: Laboratory Results - last 24 hr 09/05/24 19:33: WBC 9.4, RBC 4.48, Hgb 13.4, Hct 41.4, MCV 92.4, MCH 29.9, MCHC 32.4, RDW Std Deviation 41.4, RDW Coeff of Dave 12.0, Plt Count 225, MPV 9.4, Immature Gran % (Auto) 0.300, Neut % (Auto) 65.0, Lymph % (Auto) 23.2, [place] % (Auto) 10.4 H, Eos % (Auto) 0.7, Baso % (Auto) 0.4, Absolute Neuts (auto) 6.1, Absolute Lymphs (auto) 2.18, Nucleated RBC % 0, Sodium 139, Potassium 4.2, Chloride 104, Carbon Dioxide 21.6, Anion Gap 14, BUN 19, Creatinine 1.01, Estim Creat Clear Calc 46.80 L, Est GFR (MDRD) Non-Af 59 L, BUN/Creatinine Ratio 18.3,Glucose 157 H, Calcium 8.7, Troponin T High Sens 13 Rhythm Strip Rhythm Strip: A-fib Rate: 133 Ectopy: None Imaging Radiology Impression Chest X-Ray 09/05/24 20:02 IMPRESSION: No Acute Findings. Reading Location: [facility] Assessment & Plan Assessment/Plan (1) Atrial fibrillation with rapid ventricular response: (2) Chronic anticoagulation: (3) Generalized weakness: (4) Dyspnea on exertion: (5) Essential hypertension: PLAN: Plan 1. Atrial Fibrillation; with RVR at ~140 bpm; recurrent and paroxysmal in nature - Admit to PCU under observation status. We had to stop IV diltiazem begun in the ER due to hypotension so she was treated with one dose of IV digoxin with conversion back to NSR. Resume apixaban as previous. Check TSHand serialize troponin. Give acetaminophen prn for pnvk-iz-czrecjyt (level 1-5/10) pain or fever. Finally, we will consult [facility] to see this patient on- rounds in the AM for further recommendations with help appreciated inadvance. 2. Generalized Weakness with SEYMOUR due to #1 - PT/OT and Case Management to consult and treat on-rounds in the AM for further recommendations with help appreciated in advance. 3. Essential Hypertension; on metoprolol and furosemide - Maintain current regimen. 4. Hyperlipidemia; on rosuvastatin - Resume statin and check Lipid Profile. 5. Hypothyroidism; on replacement - Continue current therapy plus check TSH. 6. Overweight; with BMI of 26.8 this admission plus RIVKA; on CPAP - Weight loss will be recommended.Resume nocturnal CPAP. 7. Former tobacco abuse (quit 1988) - Noted. 8. History of asthma (since age 25); on montelukast, fluticasone and prn albuterol - Maintain current treatment. 9. DM-2; on empagliflozin and glipizide - Hold oral hypoglycemics. Give ADA/cardiac diet. FSBS q. AC/HS plus lowest-intensity SSI. Check HgbA1c to objectively assess quality of diabetic control. 10. Diabetic neuropathy and fibromyalgia; on gabapentin TID/HS - Continue gabapentin as before. 11. History of TIA (2020) - Noted. 12. History of ADD - Noted with patient currently not on treatment. 13. History of migraine headaches; on prn Excedrin q. 6 hours - Stable with no complaints of headache at this time. 14. History of folate deficiency; on replacement - Check folic acid level and continue replacement. 15. History of Right shoulder surgery x 3 - Noted. 16. History of LINH-BSO - Noted for the sake of completeness. 17. History of cholecystectomy - Noted. 18. History of appendectomy - Noted. 19. History of IBS; primarily of constipation-type on linaclotide - Maintain current treatment. 20. GERD; on esomeprazole - Continue PPI as before. 21. Depression with anxiety; on trazodone - Resume trazodone as previous. 22. History of muscle spasms; on prn tizanidine - Maintain current regimen. 23. Osteoporosis - Stable. 24. OA; with chronic back pain syndrome on hydrocodone-acetaminophen TID - Continue this agent for severe (level 6-10/10) pain. 25. DVT prophylaxis - Patient already on apixaban for #1 which will be continued. Total time: Approximately (but not less than) 70 minutes. Charges/Coding Visit Charges OBSV E&M: 44290 Observ/hosp same date L2 09/06/24 0634 Cosigner Signature (if applicable): CC: Dr. Jairo Ram DO; Dr. Dajuan Eric MD~ Signed [facility]03-28-2025 Discharge summary Author Nicolás Penn [facility] Note Date/Time September 05, 2024 10: 53pm [facility] Medical Records Department [address] [place] [address] Emergency Department Summary 09/05/24 MR#: [id number] Acct: [id number] Name: EMBER MALDONADO Rep #:[id number] : 1950 74 From: Nicolás Penn MD PCP: Dr. Dajuan Eric MD Status:R EG ER Location: ED HPI History of Present Illness Chief Complaint: Palpitations Informant: patient Onset/Context/Timing Onset: Today and Hours Timing: Continuous Current Severity: Mild Maximum Severity: Mild Narrative Narrative: 74-year-old female history of A-fib TIA currently on Eliquis and metoprolol for A-fib. Sees cardiology at the hospital. States she has had palpitations since about 1 PM today. She has had intermittent A-fib the last several days. Deniesany significant chest pain just feels weak and intermittently short of breath. Prior Similar Symptoms: Yes Recent Illness/Hospitalization: No CVD Risk Factors: Negative for Hypertension, Diabetes or Hypercholesterolemia PE Risk Factors: Negative for Recent Travel/Surgery, Recent Immobilization, Prior DVT or PE, Cancer or OCP + Smoking + >/=35 TAD Risk Factors: Negative for Marfan's Syndrome or Hypertension [facility] Medical History Atelectasis Wears glasses Depression Anxiety Easy bruising TIA (transient ischemic attack) Difficulty swallowing Chronic cough Former smoker CPAP (continuous positive airway pressure) dependence History of echocardiogram History of stress test Cardiology follow-up encounter Acute sinusitis, unspecified Paroxysmal atrial fibrillation Essential hypertension IBS (irritable bowel syndrome) Type 2 diabetes mellitus without complication, with long-term current use of insulin Osteopenia Intractable back pain Insomnia Hypothyroidism GERD (gastroesophageal reflux disease) Folic acid deficiency Fibromyalgia Chronic fatigue syndrome ADD (attention deficit disorder) SOB (shortness of breath) Arthritis Asthma Atrial fibrillation Home Medications ?Medication ?Instructions ?Recorded ?Last Taken ?Type montelukast 10 mg tablet 10 mg PO QPM 01/13/22 Unknow n History tamsulosin 0.4 mg capsule 0.4 mg PO DAILY 01/13/22 Unk nown History thyroid (pork) 60 mg tablet (PREDATOR CONTROL TRAPPER 60 mg PO DAILY 2 Unknown History Thyroid) ascorbate calcium (vitamin C) 500 500 mg PO DAILY 12/02 Unknown History mg tablet vjvpwsl-cejhdnycigchi-okfxafcq 250 1 tab PO Q6H PRN pa in 09/15/22 Unknown History mg-250 mg-65 mg tablet (Excedrin Migraine) gabapentin 300 mg capsule 600 mg PO TID 09/15/22 Unkno wn History gabapentin 300 mg capsule 900 mg PO QHS 09/15/22 Unkno wn History multivitamin-ferrous 1 tab PO DAILY 09/15/2210/03 History fumarate-folic acid 18 mg-400 mcg tablet (Centrum Women) nitroglycerin 0.4 mg sublingual 0.4 mg sublingual Q5-1 5M PRN chest 09/15/22 Unknown History tablet pain rosuvastatin 10 mg tablet 10 mg PO DAILY 09/15/22 Unkn own History albuterol sulfate 90 mcg/actuation 2 puff inhalation Q 4H PRN 09/19/22 Unknown Rx aerosol inhaler (Ventolin HFA) shortness of breath or wheezing #18 grams apixaban 5 mg tablet (Eliquis) 5 mg PO BID #60 tabs 08/03/23 Rx metoprolol tartrate 25 mg tablet 12.5 mg PO BID Unknown History dicyclomine 20 mg tablet 20 mg PO BID #60 tabs Unknown Rx esomeprazole magnesium 40 mg 40 mg PO QDAY #90 caps Unknown Rx capsule,delayed release linaclotide 290 mcg capsule 290 mcg PO QAM #90 caps Unknown Rx (Linzess) ondansetron 4 mg disintegrating 4 mg PO Q8H PRN nausea and 04/10/24 Unknown Rx tablet vomiting #20 tabs acetaminophen 325 mg tablet 650 mg PO Q4H PRN 06/04/24 Unknown History bisacodyl 10 mg rectal suppository 10 mg UT QDAY PRN 1 08/05/23 Unknown History buprenorphine 10 mcg/hour weekly 1 patch topical QWEEK 06/04/24 Unknown History transdermal patch cholecalciferol (vitamin D3) 125 125 mcg PO QDAY 06/04 Unknown History mcg (5,000 unit) tablet dimenhydrinate 50 mg tablet 50 mg PO ONCE PRN nausea a nd 06/04/24 Unknown History (Dramamine) vomiting diphenhydramine HCl 25 mg capsule 25 mg PO Q4H PRN all ergic reaction 06/04/24 Unknown History (Allergy (diphenhydramine)) empagliflozin 25 mg tablet 25 mg PO QDAY 06/04/24 Unkn own History (Jardiance) furosemide 40 mg tablet (Lasix) 40 mg PO QDAY PRN SOB, Edema 06/04/24 Unknown History glipizide 2.5 mg tablet, extended 2.5 mg PO QDAY 06/04 Unknown History release 24 hr hydrocodone-acetaminophen 5-325mg 1 tab PO TID 4 Unknown History 5mg-325mg ipratropium 0.5 mg-albuterol 3 mg 3 ml inhalation Q6H PRN 06/04/24 Unknown History (2.5 mg base)/3 mL nebulization soln levomefolate 7.5 mg-algal oil 2 cap PO QDAY 06/04/24 U nknown History 90.314 mg capsule (Deplin (algal oil)) magnesium oxide 400 mg PO QDAY 06/04/24 Unkn own History simethicone 80 mg chewable tablet 80 mg PO 4-6XD PRN 1 08/05/23 Unknown History (Gas Relief (simethicone)) tizanidine 2 mg capsule 4 mg PO QHS 06/04/24 Unknown History trazodone 150 mg tablet 300 mg PO QHS 06/04/24 Unkno wn History acetaminophen 500 mg tablet 1,000 mg PO Q12H PRN 07/26 Unknown History (Tylenol Extra Strength) aluminum-mag hydroxide-simethicone 30 ml PO Q4H PRN Unknown History 200 mg-200 mg-20 mg/5 mL oral susp amoxicillin 875 mg tablet mg PO 07/26/24 07/26/24 08:0 0 History dextrose 40 % oral gel (Glucose 10 g PO Q15M PRN 07/26 Unknown History Gel) fluticasone furoate 200 1 inh inhalation Q24H #30 ea 07/26/24 Unknown Rx mcg/actuation blister powder for inhalation (Arnuity Ellipta) guaifenesin 1,200 mg tablet, 1,200 mg PO .QD #30 tabs 07/26/24 Unknown Rx extended release 12 hr (Mucinex) magnesium hydroxide 400 mg/5 mL 30 ml PO ONCE PRN 07/13 10/04 Unknown History oral suspension (Milk of Magnesia) potassium chloride 20 mEq 20 meq PO ONCE With Lasix Unknown History tablet,extended release Allergy/AdvReac Type Severity Reaction Status Date / Time Environmental Allergies: Allergy Severe Anaphylaxis Verified 09/05/24 19:34 Uncoded pregabalin (From Lyrica) Allergy Severe Suicidal Verified 09/05/24 19:34 ideations prochlorperazine (From Allergy Severe hallucinati Verified 09/05/24 19:34 Compazine) ons metformin Allergy Unknown stomach Verified 09/05/24 19:34 cramping Sulfa (Sulfonamide Allergy Unknown unknown Verified 09/05/24 19:34 Antibiotics) ketorolac (From Toradol) Allergy Pain in Verified 09/05/24 19:34 joints doxycycline AdvReac Unknown Nausea/Vom/ Verified 09/05/24 19:34 Diarrhea Family History Other Cancer Diabetes Heart disease Surgical History H/O bilateral cataract extraction History of tonsillectomy History of total abdominal hysterectomy and bilateral salpingo-oophorectomy History of cholecystectomy History of colonoscopy History of appendectomy Hx of shoulder surgery Social History household members: none Smoking Status: Former smoker how long ago did patient quit smokin alcohol intake: former year quit: 1995 substance use type: former substance user Date of last use: 1969 ROS ROS ED ROS Narrative Denies recent illness. Palpitations. Accelerated heart rate. Shortness of breath. Constitutional Constitutional ED: Denies chills or fever(s) Eyes Eyes: Reports none ENT ENT ED: Denies ear pain Cardiovascular Cardiovascular: Reports as per HPI, palpitations and racing heartbeat Respiratory/Chest Respiratory/Chest: Reports dyspnea; Denies cough Gastrointestinal Gastrointestinal: Denies abdominal pain Genitourinary Genitourinary ED: Denies dysuria or hematuria Musculoskeletal Musculoskeletal: Denies arthralgias or back pain Integumentary Denies abscess Neurologic Neurologic: Denies headache(s) Psychiatric Psychiatric: Denies anxiety Endocrine Endocrinology: Denies cold intolerance Hematologic/Lymphatic Hematologic/Lymphatic: Denies easy bleeding, easy bruising or lymphadenopathy Allergic/Immunologic Allergic/Immunologic ED: Denies mouth swelling, tongue swelling or urticaria EXAM Physical Exam Narrative Exam Narrative: 74-year-old female in A-fib rate 1 40-1 50 on the monitor. Otherwise sitting upright in bed. No acute distress otherwise. No family present in room. H EENT exam pupils round reactive light. Moist mucous membranes. Neck nontender no JVD. Lungs clear to auscultation bilaterally. Heart A-fib RVR rate about 150. Chest wall ribs nontender. Abdomen soft nontender. Moving all 4 extremities. Normal strength. Nontender no edema. Neurologically she is awakeand alert no focal motor deficits. Back nontender. Const Vital Signs: 09/05/24 19:24 09/05/24 19:25 09/05/24 20:05 Temperature 98.4 F Temperature Source Oral Pulse Rate 140 H Respiratory Rate 19 H Blood Pressure 119/91 H Blood Pressure Mean 100 Pulse Ox 96 Oxygen Delivery Method Room Air Room Air Room Air Oxygen Flow Rate (L/min) 94 09/05/24 20:20 09/05/24 21:00 09/05/24 22:00 Temperature Temperature Source Pulse Rate 134 H 113 H 123 H Respiratory Rate 20 H 18 22 H Blood Pressure 100/64 103/64 97/68 Blood Pressure Mean 76 77 77 Pulse Ox 98 95 97 Oxygen Delivery Method Room Air Room Air Room Air Oxygen Flow Rate (L/min) 09/05/24 22:42 Temperature Temperature Source Pulse Rate 136 H Respiratory Rate 12 Blood Pressure 99/81 H Blood Pressure Mean 87 Pulse Ox 94 Oxygen Delivery Method Oxygen Flow Rate (L/min) Positive well nourished and well developed; Negative for cachectic, contracturesor unkempt General Appearance ED: well developed; Negative for unkempt, cachectic, contractures or pallor Nutritional Appearance: Negative for cachectic HEENT Reports moist mucous membranes normocephalic and atraumatic Eyes PERRL and EOMs intact bilaterally Neck no lymphadenopathy, supple and no JVD Chest Wall inspection of chest normal and palpation of chest normal Resp normal respiratory effort and clear to auscultation bilaterally Cardio S1 normal heart sound, S2 normal heart sound and no murmurs; Negative for regular rate Rate: tachycardic and other Other Details: A-fib RVR rate 150. GI normal to inspection, nondistended, normoactive bowel sounds, soft to palpation,non-tender, non-distended and no masses Back/Spine no CVA tenderness and no thoracic nor lumbar tenderness Extremity normal to inspection General Extremety ED: Negative for edema or tenderness General Extremity: Negative for edema Neuro oriented x3 and CN's II-XII intact bilaterally Sensorium / Orientation: awake, alert, oriented to person, oriented to place andoriented to time; Negative for confused, lethargic or stuporous Psych mental status grossly normal Appearance: Negative for unkempt Attitude: No agitated Mood & Affect: Negative for depressed, anxious or tearful Skin no rashes or lesions noted and no wounds General Skin Exam: Negative for jaundice or pallor Rashes: No rashes noted Trauma: Negative for abrasion or laceration MDM MDM MDM Narrative Medical decision making narrative: 74-year-old female history of A-fib on Eliquis currently in A-fib RVR. Will be given IV Cardizem 20 mg slow push. Undergo cardiac workup. If we get her A- fibcontrolled under 100 consistently she may be able to be discharged home if we cannot she will go on a Cardizem drip and be admitted. Repeat exam the initial dose of Cardizem brought her heart rate down a little bit but she still in the 07/02/1929 range. She was started on Cardizem drip. She was given fluid bolus due to her borderline hypotension. Patient is tolerating this well at 10:45 PM. She understands she will be admitted. History & Record Review Discussion w/independent historian: Patient Additional record(s) reviewed:: Prior inpatient record, Prior outpatient record,Prior ED visit and Prior labs Lab Data Attestation: I reviewed the patient's lab results. Lab results narrative: CBC shows white count 9. H&H 13 and 41. Platelets 225. Electrolytes show gap 14. Normal BUN of 19 creatinine of 1. Glucose 157. Initial troponin 13. Chest x-ray negative. Labs: Laboratory Results - last 24 hr 09/05/24 19:33 WBC 9.4 RBC 4.48 Hgb 13.4 Hct 41.4 MCV 92.4 MCH 29.9 MCHC 32.4 RDW Std Deviation 41.4 RDW Coeff of Dave 12.0 Plt Count 225 MPV 9.4 Immature Gran % (Auto) 0.300 Neut % (Auto) 65.0 Lymph % (Auto) 23.2 [place] % (Auto) 10.4 H Eos % (Auto) 0.7 Baso % (Auto) 0.4 Absolute Neuts (auto) 6.1 Absolute Lymphs (auto) 2.18 Nucleated RBC % 0 Sodium 139 Potassium 4.2 Chloride 104 Carbon Dioxide 21.6 Anion Gap 14 BUN 19 Creatinine 1.01 Estim Creat Clear Calc 46.80 L Est GFR (MDRD) Non-Af 59 L BUN/Creatinine Ratio 18.3 Glucose 157 H Calcium 8.7 Troponin T High Sens 13 Radiography Chest X-Ray - ED: 1 View, Read by ED Physician, Read by Radiologist, Normal, Heart, Lungs, Mediastinum, Bony Structures, No Acute Disease and Chronic Changes Diagnostic Testing: Clinical Impression(s) from Imaging Studies Chest X-Ray 09/05/24 20:02 IMPRESSION: No Acute Findings. Reading Location: [facility] Chest x-ray, portable, single view, interpreted by myself and radiologist shows no acute abnormality. Normal cardiac silhouette. Normal lung cunha. Chronic changes. Rhythm Strip Rhythm Strip: A-fib Rate: 133 Ectopy: None EKG Initial EKG: Attestation: I personally reviewed and interpreted this EKG as follows: Interpretation: No Acute Injury Pattern and Atrial Fibrillation Comments: A-fib RVR rate 133. No acute signs of OR. Critical Care Time Critical Care Time: Yes Critical care time (excluding procedures): 30-74 minutes, Including time spent:,Discussing w/Patient &/or Family/Sales Representative [employer], Discussing w/Consultants, ArrangingAdmission or Transfer, Performing Direct Patient Care at Bedside and - (36 minutes) Discharge Plan Triage Chief Complaint: Palpitations ED Provider: Nicolás Penn Dx/Rx/DC Orders Clinical Impression: Atrial fibrillation with rapid ventricular response, Chronic anticoagulation, History of TIAs Prescriptions: No Action tamsulosin 0.4 mg capsule 0.4 mg PO DAILY montelukast 10 mg tablet 10 mg PO QPM thyroid (pork) [PREDATOR CONTROL TRAPPER Thyroid] 60 mg tablet 60 mg PO DAILY gabapentin 300 mg capsule 600 mg PO TID gabapentin 300 mg capsule 900 mg PO QHS nitroglycerin 0.4 mg tablet, sublingual 0.4 mg sublingual Q5-15M PRN (Reason: chest pain) Rx Instructions: do not exceed 3 doses per episode rosuvastatin 10 mg tablet 10 mg PO DAILY Centrum Women 18-400 mg-mcg tablet 1 tab PO DAILY Excedrin Migraine 250-250-65 mg tablet 1 tab PO Q6H PRN (Reason: pain) ascorbate calcium (vitamin C) 500 mg tablet 500 mg PO DAILY diphenhydramine HCl [Allergy (diphenhydramine)] 25 mg capsule 25 mg PO Q4H PRN (Reason: allergic reaction) dimenhydrinate [Dramamine] 50 mg tablet 50 mg PO ONCE PRN (Reason: nausea and vomiting) hydrocodone-acetaminophen 5-325 mg tablet 1 tab PO TID Patient Comments: TAKE 1 TABLET BY MOUTH TWICE DAILY FOR 28 DAYS trazodone 150 mg tablet 300 mg PO QHS albuterol sulfate [Ventolin HFA] 90 mcg/actuation HFA aerosol inhaler 2 puff inhalation Q4H PRN (Reason: shortness of breath or wheezing) Qty: 18 6RF Eliquis 5 mg tablet 5 mg PO BID Qty: 60 11RF furosemide [Lasix] 40 mg tablet 40 mg PO QDAY PRN (Reason: SOB, Edema) amoxicillin 875 mg tablet PO dextrose [Glucose Gel] 40 % gel 10 g PO Q15M PRN Rx Instructions: until symptoms of low blood sugar are controlled acetaminophen [Tylenol Extra Strength] 500 mg tablet 1,000 mg PO Q12H PRN magnesium hydroxide [Milk of Magnesia] 400 mg/5 mL suspension 30 ml PO ONCE PRN alum-mag hydroxide-simeth 200-200-20 mg/5 mL suspension 30 ml PO Q4H PRN potassium chloride 20 mEq tablet extended release 20 meq PO ONCE guaifenesin [Mucinex] 1,200 mg tablet extended release 12hr 1,200 mg PO .QD Qty: 30 1RF Arnuity Ellipta 200 mcg/actuation blister with device 1 inh inhalation Q24H Qty: 30 5RF acetaminophen 325 mg tablet 650 mg PO Q4H PRN bisacodyl 10 mg suppository 10 mg UT QDAY PRN cholecalciferol (vitamin D3) 125 mcg (5,000 unit) tablet 125 mcg PO QDAY buprenorphine 10 mcg/hour patch weekly 1 patch topical QWEEK Deplin (algal oil) 7.5-90.314 mg capsule 2 cap PO QDAY glipizide 2.5 mg tablet extended release 24hr 2.5 mg PO QDAY ipratropium-albuterol 0.5 mg-3 mg(2.5 mg base)/3 mL solution for nebulization 3 ml inhalation Q6H PRN Jardiance 25 mg tablet 25 mg PO QDAY magnesium oxide 400 mg magnesium tablet 400 mg PO QDAY simethicone [Gas Relief (simethicone)] 80 mg tablet,chewable 80 mg PO 4-6XD PRN tizanidine 2 mg capsule 4 mg PO QHS esomeprazole magnesium 40 mg capsule,delayed release(DR/EC) 40 mg PO QDAY Qty: 90 3RF Linzess 290 mcg capsule 290 mcg PO QAM Qty: 90 3RF ondansetron 4 mg tablet,disintegrating 4 mg PO Q8H PRN (Reason: nausea and vomiting) Qty: 20 3RF metoprolol tartrate 25 mg tablet 12.5 mg PO BID dicyclomine 20 mg tablet 20 mg PO BID Qty: 60 6RF Primary Care Provider: Dajuan Eric Referrals: Dajuan Eric MD [Primary Care Provider] - Print Language: Syrian Disposition Disposition: Acute Care Hospital [facility] What to do if you have Problems For any increased pain, shortness of breath, bleeding, nausea or vomiting, chestpain, or any unexpected problems, contact your Primary Care Provider. Call [facility] ([phone]) or report to the closest Emergency Room. Call 911 if necessary. 09/05/24 3148 <Electronically signed by Nicolás Penn MD> Cosigner Signature (if applicable): CC: Dr. Dajuan Eric MD ~ Signed [facility] Work Phone: [phone] Discharge summary [facility] Medical Records Department [address] [place] [address] Emergency Department Summary 09/05/24 MR#: [id number] Acct: [id number] Name: EMBER MALDONADO Rep #:[id number] : 1950 74 From: Nicolás Penn MD PCP: Dr. Dajuan Eric MD Status:R EG ER Location: ED HPI History of Present Illness Chief Complaint: Palpitations Informant: patient Onset/Context/Timing Onset: Today and Hours Timing: Continuous Current Severity: Mild Maximum Severity: Mild Narrative Narrative: 74-year-old female history of A-fib TIA currently on Eliquis and metoprolol for A-fib. Sees cardiology at the hospital. States she has had palpitations since about 1 PM today. She has had intermittent A-fib the last several days. Deniesany significant chest pain just feels weak and intermittently short of breath. Prior Similar Symptoms: Yes Recent Illness/Hospitalization: No CVD Risk Factors: Negative for Hypertension, Diabetes or Hypercholesterolemia PE Risk Factors: Negative for Recent Travel/Surgery, Recent Immobilization, Prior DVT or PE, Canceror OCP + Smoking + >/=35 TAD Risk Factors: Negative for Marfan's Syndrome or Hypertension [facility] Medical History Atelectasis Wears glasses Depression Anxiety Easy bruising TIA (transient ischemic attack) Difficulty swallowing Chronic cough Former smoker CPAP (continuous positive airway pressure) dependence History of echocardiogram History of stress test Cardiology follow-up encounter Acute sinusitis, unspecified Paroxysmal atrial fibrillation Essential hypertension IBS (irritable bowel syndrome) Type 2 diabetes mellitus without complication, with long-term current use of insulin Osteopenia Intractable back pain Insomnia Hypothyroidism GERD (gastroesophageal reflux disease) Folic acid deficiency Fibromyalgia Chronic fatigue syndrome ADD (attention deficit disorder) SOB (shortness of breath) Arthritis Asthma Atrial fibrillation Home Medications ?Medication ?Instructions ?Recorded ?Last Taken ?Type montelukast 10 mg tablet 10 mg PO QPM 01/13/22 Unknow n History tamsulosin 0.4 mg capsule 0.4 mg PO DAILY 01/13/22 Unk nown History thyroid (pork) 60 mg tablet (PREDATOR CONTROL TRAPPER 60 mg PO DAILY 2 Unknown History Thyroid) ascorbate calcium (vitamin C) 500 500 mg PO DAILY 12/02 Unknown History mg tablet [id number] 250 1 tab PO Q6H PRN pa in 09/15/22 Unknown History mg-250 mg-65 mg tablet (Excedrin Migraine) gabapentin 300 mg capsule 600 mg PO TID 09/15/22 Unkno wn History gabapentin 300 mg capsule 900 mg PO QHS 09/15/22 Unkno wn History multivitamin-ferrous 1 tab PO DAILY 09/15/2210/03 History fumarate-folic acid 18 mg-400 mcg tablet (Centrum Women) nitroglycerin 0.4 mg sublingual 0.4 mg sublingual Q5-1 5M PRN chest 09/15/22 Unknown History tablet pain rosuvastatin 10 mg tablet 10 mg PO DAILY 09/15/22 Unkn own History albuterol sulfate 90 mcg/actuation 2 puff inhalation Q 4H PRN 09/19/22 Unknown Rx aerosol inhaler (Ventolin HFA) shortness of breath or wheezing #18 grams apixaban 5 mg tablet (Eliquis) 5 mg PO BID #60 tabs 08/03/23 Rx metoprolol tartrate 25 mg tablet 12.5 mg PO BID Unknown History dicyclomine 20 mg tablet 20 mg PO BID #60 tabs Unknown Rx esomeprazole magnesium 40 mg 40 mg PO QDAY #90 caps Unknown Rx capsule,delayed release linaclotide 290 mcg capsule 290 mcg PO QAM #90 caps Unknown Rx (Linzess) ondansetron 4 mg disintegrating 4 mg PO Q8H PRN nausea and 04/10/24 Unknown Rx tablet vomiting #20 tabs acetaminophen 325 mg tablet 650 mg PO Q4H PRN 06/04/24 Unknown History bisacodyl 10 mg rectal suppository 10 mg UT QDAY PRN 1 08/05/23 Unknown History buprenorphine 10 mcg/hour weekly 1 patch topical QWEEK 06/04/24 Unknown History transdermal patch cholecalciferol (vitamin D3) 125 125 mcg PO QDAY 06/04 Unknown History mcg (5,000 unit) tablet dimenhydrinate 50 mg tablet 50 mg PO ONCE PRN nausea a nd 06/04/24 Unknown History (Dramamine) vomiting diphenhydramine HCl 25 mg capsule 25 mg PO Q4H PRN all ergic reaction 06/04/24 Unknown History (Allergy (diphenhydramine)) empagliflozin 25 mg tablet 25 mg PO QDAY 06/04/24 Unkn own History (Jardiance) furosemide 40 mg tablet (Lasix) 40 mg PO QDAY PRN SOB, Edema 06/04/24 Unknown History glipizide 2.5 mg tablet, extended 2.5 mg PO QDAY 06/04 Unknown History release 24 hr hydrocodone-acetaminophen 5-325mg 1 tab PO TID 4 Unknown History 5mg-325mg ipratropium 0.5 mg-albuterol 3 mg 3 ml inhalation Q6H PRN 06/04/24 Unknown History (2.5 mg base)/3 mL nebulization soln levomefolate 7.5 mg-algal oil 2 cap PO QDAY 06/04/24 U nknown History 90.314 mg capsule (Deplin (algal oil)) magnesium oxide 400 mg PO QDAY 06/04/24 Unkn own History simethicone 80 mg chewable tablet 80 mg PO 4-6XD PRN 1 08/05/23 Unknown History (Gas Relief (simethicone)) tizanidine 2 mg capsule 4 mg PO QHS 06/04/24 Unknown History trazodone 150 mg tablet 300 mg PO QHS 06/04/24 Unkno wn History acetaminophen 500 mg tablet 1,000 mg PO Q12H PRN 07/26 Unknown History (Tylenol Extra Strength) aluminum-mag hydroxide-simethicone 30 ml PO Q4H PRN Unknown History 200 mg-200 mg-20 mg/5 mL oral susp amoxicillin 875 mg tablet mg PO 07/26/24 07/26/24 08:0 0 History dextrose 40 % oral gel (Glucose 10 g PO Q15M PRN 07/26 Unknown History Gel) fluticasone furoate 200 1 inh inhalation Q24H #30 ea 07/26/24 Unknown Rx mcg/actuation blister powder for inhalation (Arnuity Ellipta) guaifenesin 1,200 mg tablet, 1,200 mg PO .QD #30 tabs 07/26/24 Unknown Rx extended release 12 hr (Mucinex) magnesium hydroxide 400 mg/5 mL 30 ml PO ONCE PRN 07/13 10/04 Unknown History oral suspension (Milk of Magnesia) potassium chloride 20 mEq 20 meq PO ONCE With Lasix Unknown History tablet,extended release Allergy/AdvReac Type Severity Reaction Status Date / Time Environmental Allergies: Allergy Severe Anaphylaxis Verified 09/05/24 19:34 Uncoded pregabalin (From Lyrica) Allergy Severe Suicidal Verified 09/05/24 19:34 ideations prochlorperazine (From Allergy Severe hallucinati Verified 09/05/24 19:34 Compazine) ons metformin Allergy Unknown stomach Verified 09/05/24 19:34 cramping Sulfa (Sulfonamide Allergy Unknown unknown Verified 09/05/24 19:34 Antibiotics) ketorolac (From Toradol) Allergy Pain in Verified 09/05/24 19:34 joints doxycycline AdvReac Unknown Nausea/Vom/ Verified 09/05/24 19:34 Diarrhea Family History Other Cancer Diabetes Heart disease Surgical History H/O bilateral cataract extraction History of tonsillectomy History of total abdominal hysterectomy and bilateral salpingo-oophorectomy History of cholecystectomy History of colonoscopy History of appendectomy Hx of shoulder surgery Social History household members: none Smoking Status: Former smoker how long ago did patient quit smokin alcohol intake: former year quit: 1995 substance use type: former substance user Date of last use: 1969 ROS ROS ED ROS Narrative Denies recent illness. Palpitations. Accelerated heart rate. Shortness of breath. Constitutional Constitutional ED: Denies chills or fever(s) Eyes Eyes: Reports none ENT ENT ED: Denies ear pain Cardiovascular Cardiovascular: Reports as per HPI, palpitations and racing heartbeat Respiratory/Chest Respiratory/Chest: Reports dyspnea; Denies cough Gastrointestinal Gastrointestinal: Denies abdominal pain Genitourinary Genitourinary ED: Denies dysuria or hematuria Musculoskeletal Musculoskeletal: Denies arthralgias or back pain Integumentary Denies abscess Neurologic Neurologic: Denies headache(s) Psychiatric Psychiatric: Denies anxiety Endocrine Endocrinology: Denies cold intolerance Hematologic/Lymphatic Hematologic/Lymphatic: Denies easy bleeding, easy bruising or lymphadenopathy Allergic/Immunologic Allergic/Immunologic ED: Denies mouth swelling, tongue swelling or urticaria EXAM Physical Exam Narrative Exam Narrative: 74-year-old female in A-fib rate 1 40-1 50 on the monitor. Otherwise sitting upright in bed. No acute distress otherwise. No family present in room. H EENT exam pupils round reactive light. Moist mucous membranes. Neck nontender no JVD. Lungs clear to auscultation bilaterally. Heart A-fib RVR rate about 150. Chest wall ribs nontender. Abdomen soft nontender. Moving all 4 extremities. Normal strength. Nontender no edema. Neurologically she is awakeand alert no focal motor deficits. Back nontender. Const Vital Signs: 09/05/24 19:24 09/05/24 19:25 09/05/24 20:05 Temperature 98.4 F Temperature Source Oral Pulse Rate 140 H Respiratory Rate 19 H Blood Pressure 119/91 H Blood Pressure Mean 100 Pulse Ox 96 Oxygen Delivery Method Room Air Room Air Room Air Oxygen Flow Rate (L/min) 94 09/05/24 20:20 09/05/24 21:00 09/05/24 22:00 Temperature Temperature Source Pulse Rate 134 H 113 H 123 H Respiratory Rate 20 H 18 22 H Blood Pressure 100/64 103/64 97/68 Blood Pressure Mean 76 77 77 Pulse Ox 98 95 97 Oxygen Delivery Method Room Air Room Air Room Air Oxygen Flow Rate (L/min) 09/05/24 22:42 Temperature Temperature Source Pulse Rate 136 H Respiratory Rate 12 Blood Pressure 99/81 H Blood Pressure Mean 87 Pulse Ox 94 Oxygen Delivery Method Oxygen Flow Rate (L/min) Positive well nourished and well developed; Negative for cachectic, contracturesor unkempt General Appearance ED: well developed; Negative for unkempt, cachectic, contractures or pallor Nutritional Appearance: Negative for cachectic HEENT Reports moist mucous membranes normocephalic and atraumatic Eyes PERRL and EOMs intact bilaterally Neck no lymphadenopathy, supple and no JVD Chest Wall inspection of chest normal and palpation of chest normal Resp normal respiratory effort and clear to auscultation bilaterally Cardio S1 normal heart sound, S2 normal heart sound and no murmurs; Negative for regular rate Rate: tachycardic and other Other Details: A-fib RVR rate 150. GI normal to inspection, nondistended, normoactive bowel sounds, soft to palpation,non-tender, non-distended and no masses Back/Spine no CVA tenderness and no thoracic nor lumbar tenderness Extremity normal to inspection General Extremety ED: Negative for edema or tenderness General Extremity: Negative for edema Neuro oriented x3 and CN's II-XII intact bilaterally Sensorium / Orientation: awake, alert, oriented to person, oriented to place andoriented to time; Negative for confused, lethargic or stuporous Psych mental status grossly normal Appearance: Negative for unkempt Attitude: No agitated Mood & Affect: Negative for depressed, anxious or tearful Skin no rashes or lesions noted and no wounds General Skin Exam: Negative for jaundice or pallor Rashes: No rashes noted Trauma: Negative for abrasion or laceration MDM MDM MDM Narrative Medical decision making narrative: 74-year-old female history of A-fib on Eliquis currently in A-fib RVR. Will be given IV Cardizem 20mg slow push. Undergo cardiac workup. If we get her A- fibcontrolled under 100 consistently she may be able to be discharged home if we cannot she will go on a Cardizem drip and be admitted. Repeat exam the initial dose of Cardizem brought her heart rate down a little bit but she still in the 07/02/1929 range. She was started on Cardizem drip. She was given fluid bolus due to her borderline hypotension. Patient is tolerating this well at 10:45 PM. She understands she will be admitted. History & Record Review Discussion w/independent historian: Patient Additional record(s) reviewed:: Prior inpatient record, Prior outpatient record,Prior ED visit and Prior labs Lab Data Attestation: I reviewed the patient's lab results. Lab results narrative: CBC shows white count 9. H&H 13 and 41. Platelets 225. Electrolytes show gap 14. Normal BUN of 19 creatinine of 1. Glucose 157. Initial troponin 13. Chest x-ray negative. Labs: Laboratory Results - last 24 hr 09/05/24 19:33 WBC 9.4 RBC 4.48 Hgb 13.4 Hct 41.4 MCV 92.4 MCH 29.9 MCHC 32.4 RDW Std Deviation 41.4 RDW Coeff of Dave 12.0 Plt Count 225 MPV 9.4 Immature Gran % (Auto) 0.300 Neut % (Auto) 65.0 Lymph % (Auto) 23.2 [place] % (Auto) 10.4 H Eos % (Auto) 0.7 Baso % (Auto) 0.4 Absolute Neuts (auto) 6.1 Absolute Lymphs (auto) 2.18 Nucleated RBC % 0 Sodium 139 Potassium 4.2 Chloride 104 Carbon Dioxide 21.6 Anion Gap 14 BUN 19 Creatinine 1.01 Estim Creat Clear Calc 46.80 L Est GFR (MDRD) Non-Af 59 L BUN/Creatinine Ratio 18.3 Glucose 157 H Calcium 8.7 Troponin T High Sens 13 Radiography Chest X-Ray - ED: 1 View, Read by ED Physician, Read by Radiologist, Normal, Heart, Lungs, Mediastinum, Bony Structures, No Acute Disease and Chronic Changes Diagnostic Testing: Clinical Impression(s) from Imaging Studies Chest X-Ray 09/05/24 20:02 IMPRESSION: No Acute Findings. Reading Location: [facility] Chest x-ray, portable, single view, interpreted by myself and radiologist shows no acute abnormality. Normal cardiac silhouette. Normal lung cunha. Chronic changes. Rhythm Strip Rhythm Strip: A-fib Rate: 133 Ectopy: None EKG Initial EKG: Attestation: I personally reviewed and interpreted this EKG as follows: Interpretation: No Acute Injury Pattern and Atrial Fibrillation Comments: A-fib RVR rate 133. No acute signs of OR. Critical Care Time Critical Care Time: Yes Critical care time (excluding procedures): 30-74 minutes, Including time spent:,Discussing w/Patient &/or Family/Sales Representative [employer], Discussing w/Consultants, ArrangingAdmission or Transfer, Performing Direct Patient Care at Bedside and - (36 minutes) Discharge Plan Triage Chief Complaint: Palpitations ED Provider: Nicolás Penn Dx/Rx/DC Orders Clinical Impression: Atrial fibrillation with rapid ventricular response, Chronic anticoagulation, History of TIAs Prescriptions: No Action tamsulosin 0.4 mg capsule 0.4 mg PO DAILY montelukast 10 mg tablet 10 mg PO QPM thyroid (pork) [PREDATOR CONTROL TRAPPER Thyroid] 60 mg tablet 60 mg PO DAILY gabapentin 300 mg capsule 600 mg PO TID gabapentin 300 mg capsule 900 mg PO QHS nitroglycerin 0.4 mg tablet, sublingual 0.4 mg sublingual Q5-15M PRN (Reason: chest pain) Rx Instructions: do not exceed 3 doses per episode rosuvastatin 10 mg tablet 10 mg PO DAILY Centrum Women 18-400 mg-mcg tablet 1 tab PO DAILY Excedrin Migraine 250-250-65 mg tablet 1 tab PO Q6H PRN (Reason: pain) ascorbate calcium (vitamin C) 500 mg tablet 500 mg PO DAILY diphenhydramine HCl [Allergy (diphenhydramine)] 25 mg capsule 25 mg PO Q4H PRN (Reason: allergic reaction) dimenhydrinate [Dramamine] 50 mg tablet 50 mg PO ONCE PRN (Reason: nausea and vomiting) hydrocodone-acetaminophen 5-325 mg tablet 1 tab PO TID Patient Comments: TAKE 1 TABLET BY MOUTH TWICE DAILY FOR 28 DAYS trazodone 150 mg tablet 300 mg PO QHS albuterol sulfate [Ventolin HFA] 90 mcg/actuation HFA aerosol inhaler 2 puff inhalation Q4H PRN (Reason: shortness of breath or wheezing) Qty: 18 6RF Eliquis 5 mg tablet 5 mg PO BID Qty: 60 11RF furosemide [Lasix] 40 mg tablet 40 mg PO QDAY PRN (Reason: SOB, Edema) amoxicillin 875 mg tablet PO dextrose [Glucose Gel] 40 % gel 10 g PO Q15M PRN Rx Instructions: until symptoms of low blood sugar are controlled acetaminophen [Tylenol Extra Strength] 500 mg tablet 1,000 mg PO Q12H PRN magnesium hydroxide [Milk of Magnesia] 400 mg/5 mL suspension 30 ml PO ONCE PRN alum-mag hydroxide-simeth 200-200-20 mg/5 mL suspension 30 ml PO Q4H PRN potassium chloride 20 mEq tablet extended release 20 meq PO ONCE guaifenesin [Mucinex] 1,200 mg tablet extended release 12hr 1,200 mg PO .QD Qty: 30 1RF Arnuity Ellipta 200 mcg/actuation blister with device 1 inh inhalation Q24H Qty: 30 5RF acetaminophen 325 mg tablet 650 mg PO Q4H PRN bisacodyl 10 mg suppository 10 mg UT QDAY PRN cholecalciferol (vitamin D3) 125 mcg (5,000 unit) tablet 125 mcg PO QDAY buprenorphine 10 mcg/hour patch weekly 1 patch topical QWEEK Deplin (algal oil) 7.5-90.314 mg capsule 2 cap PO QDAY glipizide 2.5 mg tablet extended release 24hr 2.5 mg PO QDAY ipratropium-albuterol 0.5 mg-3 mg(2.5 mg base)/3 mL solution for nebulization 3 ml inhalation Q6H PRN Jardiance 25 mg tablet 25 mg PO QDAY magnesium oxide 400 mg magnesium tablet 400 mg PO QDAY simethicone [Gas Relief (simethicone)] 80 mg tablet,chewable 80 mg PO 4-6XD PRN tizanidine 2 mg capsule 4 mg PO QHS esomeprazole magnesium 40 mg capsule,delayed release(DR/EC) 40 mg PO QDAY Qty: 90 3RF Linzess 290 mcg capsule 290 mcg PO QAM Qty: 90 3RF ondansetron 4 mg tablet,disintegrating 4 mg PO Q8H PRN (Reason: nausea and vomiting) Qty: 20 3RF metoprolol tartrate 25 mg tablet 12.5 mg PO BID dicyclomine 20 mg tablet 20 mg PO BID Qty: 60 6RF Primary Care Provider: Dajuan Eric Referrals: Dajuan Eric MD [Primary Care Provider] - Print Language: Syrian Disposition Disposition: Acute Care Hospital [facility] What to do if you have Problems For any increased pain, shortness of breath, bleeding, nausea or vomiting, chestpain, or any unexpected problems, contact your Primary Care Provider. Call [facility] ([phone]) or report tothe closest Emergency Room. Call 911 if necessary. 09/05/24 [id number] Cosigner Signature (if applicable): CC: Dr. Dajuan Eric MD ~ Signed [facility]03-27-2025 Radiology Diagnostic study note [facility] Imaging Services [address] [place], [place] [id number] Chest 1 View (Portable) MR#: [id number] Acct: [id number] Name: EMBER MALDONADO Rep #: [id number] : 1950 F 74 From: Lorri Templeton MD PCP: Dr. Dajuan Eric MD Status: R EG ER Study:Chest 1 View (Portable) Date of Exam: 09/05/24 Exam# [id number] Ordering Dr: Yimi Penn MD PROCEDURE: CHEST 1 VIEW (PORTABLE) 09/05/2024 REASON FOR EXAM: 74-year-old female, chest pain. TECHNIQUE: Frontal view of the chest. COMPARISON: Chest radiograph 06/04/2024. FINDINGS: The patient is slightly rotated. Hardware: None. Heart: Cardiac and mediastinal contours are stable. Lungs: No focal consolidation, pleural effusion or pneumothorax. Bones: Degenerative changes are identified within the thoracic spine. RAD/Chest 1 View (Portable) IMPRESSION: No Acute Findings. Reading Location: [id number] CC: Dr. Nicolás Penn MD; Dr. Dajuan Eric MD ~ Banquet Manager: Signed [facility]03-18-2025 Evaluation note* Diagnosis Onset Date Resolution Status Admit Date Paroxysmal atrial fibrillation acute August 27, 2024 11:23am Sleep apnea chronic August 27 11:23am Essential hypertension inactive [facility] 2024 11:23am Atrial fibrillation with rap id ventricular response resolved September 05, 2024 11:40pm Dyspnea on exertion resolved September 05, 2024 11:40pm Generalized weakness resolved [facility] 2024 11:40pm Chronic anticoagulation inactive [facility] 2024 11:40pm Essential hypertension inactive [facility] 2024 11:40pm Asthma acute September 20 12:31pm RIVKA (obstructive sleep apnea) chroni c September 20, 2024 12:31pm Hyperlipidemia acute September 12:53pm Paroxysmal atrial fibrillation acute September 26, 2024 12:53pm Sleep apnea chronic September 26 12:53pm Essential hypertension inactive [facility] 2024 12:53pm Hyperlipidemia acute October 10 9:14am Paroxysmal atrial fibrillation acute October 10, 2024 9:14am Sleep apnea chronic October 10, 2024 9:14am Right shoulder pain acute December 02, 2024 9:22am [facility] Work Phone: 1(448) 780-878003-18-2025 Evaluation note* Diagnosis Onset Date Resolution Status Admit Date Paroxysmal atrial fibrillation acute August 27, 2024 11:23am Sleep apnea chronic August 27, 2 025 11:23am Essential hypertension inactive [facility] 2024 11:23am Atrial fibrillation with rap id ventricular response resolved September 05, 2024 11:40pm Dyspnea on exertion resolved September 05, 2024 11:40pm Generalized weakness resolved [facility] 2024 11:40pm Chronic anticoagulation inactive [facility] 2024 11:40pm Essential hypertension inactive [facility] 2024 11:40pm Asthma acute September 20 12:31pm RIVKA (obstructive sleep apnea) chroni c September 20, 2024 12:31pm Hyperlipidemia acute September 12:53pm Paroxysmal atrial fibrillation acute September 26, 2024 12:53pm Sleep apnea chronic September 26 025 12:53pm Essential hypertension inactive [facility] 2024 12:53pm Hyperlipidemia acute October 10, 025 9:14am Paroxysmal atrial fibrillation acute October 10, 2024 9:14am Sleep apnea chronic October 10, 2024 9:14am Right shoulder pain acute December 02, 2024 9:22am Constipation acute December 04, 025 9:11am GERD (gastroesophageal reflu x disease) acute December 04, 2024 9:11am [facility] Work Phone: 1(168) 141-751502-28-2025 Telephone encounter Note* Telephone Encounter - Summer Hood LPN - 08/09/2024 11:06 AM EST Called pt again and appt with pcp arranged for 09/09/24. [facility]02-28-2025 Miscellaneous Notes* Telephone Encounter - Summer Hood LPN - 08/09/2024 11:06 AM EST Called pt again and appt with pcp arranged for 09/09/24. * Telephone Encounter - Summer Hood LPN - 07/25/2024 10:37 AM EST Called pt's home number with no answer. Called pts mobile and message left to return call to arrange 40 minute pre op clearance appt with in 30 days of scheduled surgery * Telephone Encounter - Summer Hood LPN - 07/24/2024 11:58 AM EST Fax rec'd from Dr. Parker's office.pt has been scheduled for anterior disc fusion C3-4 and C4-5. This is scheduled for 09/25/24. Pt will need a 40 minute pre op appt with pcp or [facility] within 30 days of scheduled surgery. Called pt's home number with no answer. documented in this encounter[facility] Instructions* Patient Instructions* Thompson Pedraza APRN.CNP - 08/03/2024 1:55 PM EST I am concerned that possibly your shoes are not as supportive as they should be causing a flareup of your nerve pain in your feet. I would recommend that you follow-up with your family doctor and discuss the dosing of your gabapentin and I would also recommend a follow-up with podiatry, a foot doctor, to see if whether inserts in your shoes may help with the symptoms. documented in this encounterMercy [facility]02-22-2025 NoteHNO ID: [id number] Author: THOMPSON PEDRAZA APRN.GLO Service: ? Author Type: Nurse Practitioner Type: Progress Notes Filed: 08/03/2024 13:58 Note Text: This note was created using Presstlerriter. Caitlin Maldonado is a 74 year old female. HPI Pt had been walking with no difficulty but about three days ago developed stabbing pain in her bilateral feet. It feels like here previous episodes of nerve damage. Currently taking Neurontin and also [place] 3 times a day. She denies any recent strain or trauma to her feet. Review of Systems As above Objective BP 120/58 Pulse 65 Temp 37.1 ?C (98.7 ?F) Resp 20 Wt 69 kg (152 lb 1.9 oz) SpO2 95% BMI 27.29 kg/m? Physical Exam Vitals and nursing note reviewed. Constitutional: General: She is not in acute distress. Appearance: Normal appearance. She is not ill-appearing. HENT: Head: Normocephalic. Pulmonary: Effort: Pulmonary effort is normal. Musculoskeletal: Cervical back: Normal range of motion. Comments: Diffuse tenderness across patient's bilateral feet with no obvious swelling, deformities, or erythema noted. Skin: General: Skin is warm and dry. Neurological: General: No focal deficit present. Mental Status: She is alert. Psychiatric: Mood and Affect: Mood normal. Behavior: Behavior normal. Assessment and Plan ASSESSMENT/PLAN: 1. Foot pain, bilateral - ICD9: 729.5, ICD10: M79.671, M79.672 No obvious concerning issues noted on physical exam. I did discuss with patient whether her shoes are no longer giving her appropriate support in her feet and I recommended follow-up podiatry. Patient is known to local podiatry and will follow-up with them. I also recommended follow-up with her PCP to discuss her current gabapentin dosing. Patient comfortable with plan. [facility] History of Present illness Narrative* Thompson Pedraza APRN.GLO - 08/03/2024 1:48 PM EST This note was created using Presstlerriter. Subjective Ember Maldonado is a 74 year old female. HPI Pt had been walking with no difficulty but about three days ago developed stabbing pain in her bilateral feet. It feels like here previous episodes of nerve damage. Currently taking Neurontin and also [place] 3 times a day. She denies any recent strain or trauma to her feet. Review of Systems As above Objective BP 120/58 Pulse 65 Temp 37.1 C (98.7 F) Resp 20 Wt 69 kg (152 lb 1.9 oz) SpO2 95% BMI 27.29 kg/m Physical Exam Vitals and nursing note reviewed. Constitutional: General: She is not in acute distress. Appearance: Normal appearance. She is not ill-appearing. HENT: Head: Normocephalic. Pulmonary: Effort: Pulmonary effort is normal. Musculoskeletal: Cervical back: Normal range of motion. Comments: Diffuse tenderness across patient's bilateral feet with no obvious swelling, deformities,or erythema noted. Skin: General: Skin is warm and dry. Neurological: General: No focal deficit present. Mental Status: She is alert. Psychiatric: Mood and Affect: Mood normal. Behavior: Behavior normal. Assessment and Plan ASSESSMENT/PLAN: 1. Foot pain, bilateral - ICD9: 729.5, ICD10: M79.671, M79.672 No obvious concerning issues noted on physical exam. I did discuss with patient whether her shoes are no longer giving her appropriate support in her feet and I recommended follow-up podiatry. Patient is known to local podiatry and will follow-up with them. I also recommended follow-up with her PCPto discuss her current gabapentin dosing. Patient comfortable with plan. Thompson Pedraza APRN.GLO documented in this encounterMer[facility]02-13-2025 Telephone encounter Note * Telephone Encounter - Summer Hood LPN - 07/25/2024 10:37 AM EST Called pt's home number with no answer. Called pts mobile and message left to return call to arrange 40 minute pre op clearance appt with in 30 days of scheduled surgery [facility]02-12-2025 Telephone encounter Note* Telephone Encounter - Summer Hood LPN - 07/24/2024 11:58 AM EST Fax rec'd from Dr. Parker's office.pt has been scheduled for anterior disc fusion C3-4 and C4-5. This is scheduled for 09/25/24. Pt will need a 40 minute pre op appt with pcp or [facility] within 30 days of scheduled surgery. Called pt's home number with no answer. [facility]02-06-2025 NoteHNO ID: [id number] Author: DAJUAN ERIC MD Service: ? Author Type: Physician Type: Progress Notes Filed: 07/18/2024 10:55 Note Text: This note was created using Presstlerriter. Subjective Ember Maldonado is a 74 year old female. She was scheduled for an echocardiogram and A1C. She was scheduled to see [facility]ology ([facility]) and Dr. Parker (spine surgery). There was discussion about possible cervical spine surgery. She complained of ongoing sinus pain, yellow drainage, nosebleeds, and sneezing since June and requested another course of antibiotic similar to March. She declined referral to ENT. She gave a history of vitamin D deficiency, not checked recently. She has osteopenia. Review of Systems Constitutional: Negative for chills and fever. HENT: Negative for sore throat. Respiratory: Negative for cough and shortness of breath. Cardiovascular: Negative for chest pain, palpitations and leg swelling. Gastrointestinal: Negative. Musculoskeletal: Positive for neck pain. ACTIVE PROBLEM LIST Type 2 Diabetes Mellitus With Diabetic Neuropathy, Without Long-Term Current Use of Insulin ([facility]) Lumbar Radiculopathy Cervical Radiculopathy Dizziness, Nonspecific Falls Frequently Hypothyroidism Paf (Paroxysmal Atrial Fibrillation) ([facility]) Mixed Hyperlipidemia Chronic Diastolic Chf (Congestive Heart Failure) ([facility]) Mild Intermittent Asthma Without Complication Anxiety and Depression Alternating Constipation and Diarrhea Cognitive Decline Mixed Incontinence Osteopenia Social History Tobacco Use Smoking status: Former Current packs/day: 0.00 Average packs/day: 2.0 packs/day for 12.0 years (24.1 ttl pk-yrs) Types: Cigarettes Start date: 1977 Quit date: 12/10/1988 Years since quittin.6 Smokeless tobacco: Never Tobacco comments: from age 27 Substance Use Topics Alcohol use: Not Currently Comment: none since 1995 Drug use: Not Currently Types: Marijuana Comment: none since 1969 Current Outpatient Medications Medication Sig GUAIFENESIN ORAL Take 10 mL by mouth every 4 hours as needed. empagliflozin (JARDIANCE) 25 mg tablet Take 1 tablet by mouth daily with breakfast. potassium chloride ER (KLOR-CON) 20 mEq tablet Take 1 tablet by mouth once daily as needed (with furosemide). ondansetron (ZOFRAN) 4 mg tablet Take by mouth every 8 hours as needed for nausea/vomiting. tiZANidine HCl (ZANAFLEX) 2 mg capsule Take 1 capsule by mouth daily at bedtime. For muscle spasms. bisacodyl (DULCOLAX) 10 mg supp 1 Suppository by RECTAL route once daily as needed for constipation. If MOM ineffective. aluminum-magnesium hydroxide (MAG-AL) 200-200 mg/5 mL suspension Take 30 mL by mouth every 4 hours as needed (GI distress). simethicone, chewable (MYLICON) 80 mg chewable tablet Take 1 tablet by mouth four times a day as needed (gas, bloating). gabapentin (NEURONTIN) 300 mg capsule Take 2 capsules by mouth three times a day AND 3 capsules daily at bedtime. Do all this for 90 days. Patient should start on May 02, 2024. tamsulosin (FLOMAX) 0.4 mg Take 1 capsule by mouth once daily. GLIPIZIDE ORAL Take 2.5 mg by mouth once daily. ipratropium-albuterol (DUONEB) 0.5 mg-3 mg(2.5 mg base)/3 mL nebu Inhale 3 mL as instructed every 6 hours as needed for wheezing/shortness of breath. albuterol HFA (PROVENTIL HFA, VENTOLIN HFA) 90 mcg/actuation inhaler Inhale 2 Puffs as instructed every 6 hours as needed for wheezing/shortness of breath. acetaminophen (TYLENOL) 325 mg tablet 650 mg every 4 hours. As needed for elevated temperature DO NOT EXCEED 4GM in 24 HOURS linaclotide (LINZESS) 145 mcg capsule Take 145 mcg by mouth daily at 6 am. magnesium oxide 400 mg magnesium tab Take 1 tablet by mouth at bedtime as needed (for leg cramps). magnesium hydroxide (MILK OF MAGNESIA) 400 mg/5 mL suspension Take 30 mL by mouth once daily as needed. Diaper,Brief, Adult,Disposable Size Medium, 1-2 times a day furosemide (LASIX) 40 mg tablet Take 1 tablet by mouth once daily as needed. apixaban (ELIQUIS) 5 mg tab(s) Take 1 tablet by mouth two times a day. [facility] levomefolate (DEPLIN) 7.5 mg capsule Take 2 capsules by mouth once daily. rosuvastatin (CRESTOR) 10 mg tablet Take 1 tablet by mouth daily at bedtime. PREDATOR CONTROL TRAPPER THYROID 60 mg tablet Take 1 tablet by mouth once daily. esomeprazole (NEXIUM) 20 mg capsule Take 20 mg by mouth daily at 6 am. metoprolol tartrate, short acting, (LOPRESSOR) 25 mg tablet Take 0.5 tablets by mouth two times a day. montelukast (SINGULAIR) 10 mg tablet Take 1 tablet by mouth daily at bedtime. blood sugar diagnostic (BLOOD GLUCOSE TEST) test strip Test blood sugar(s) 1 times daily. Dx: Type 2 DM - Uncontrolled E11.65 Insulin: No dicyclomine (BENTYL) 20 mg tablet Take 1 tablet by mouth twice daily as needed. From [facility]. Cholecalciferol, Vitamin D3, 125 mcg (5,000 unit) cap Take by mouth. traZODone (DESYREL) 150 mg ta (more content not included)...[facility]02-06-2025 History of Present illness Narrative* Dajuan Eric MD - 07/18/2024 9:48 AM EST This note was created using Presstlerriter. Subjective Ember Maldonado is a 74 year old female. She was scheduled for an echocardiogram and A1C. She was scheduled to see cardiology ([facility]) and Dr. Parker (spine surgery). There was discussion about possible cervical spine surgery. She complained of ongoing sinus pain, yellow drainage, nosebleeds, and sneezing since June and requested another course of antibiotic similar to March. She declined referral to ENT. She gave a history of vitamin D deficiency, not checked recently. She has osteopenia. Review of Systems Constitutional: Negative for chills and fever. HENT: Negative for sore throat. Respiratory: Negative for cough and shortness of breath. Cardiovascular: Negative for chest pain, palpitations and leg swelling. Gastrointestinal: Negative. Musculoskeletal: Positive for neck pain. ACTIVE PROBLEM LIST Type 2 Diabetes Mellitus With Diabetic Neuropathy, Without Long-Term Current Use of Insulin ([facility]) Lumbar Radiculopathy Cervical Radiculopathy Dizziness, Nonspecific Falls Frequently Hypothyroidism Paf (Paroxysmal Atrial Fibrillation) ([facility]) Mixed Hyperlipidemia Chronic Diastolic Chf (Congestive Heart Failure) ([facility]) Mild Intermittent Asthma Without Complication Anxiety and Depression Alternating Constipation and Diarrhea Cognitive Decline Mixed Incontinence Osteopenia Social History Tobacco Use Smoking status: Former Current packs/day: 0.00 Average packs/day: 2.0 packs/day for 12.0 years (24.1 ttl pk-yrs) Types: Cigarettes Start date: 1977 Quit date: 12/10/1988 Years since quittin.6 Smokeless tobacco: Never Tobacco comments: from age 27 Substance Use Topics Alcohol use: Not Currently Comment: none since 1995 Drug use: Not Currently Types: Marijuana Comment: none since 1969 Current Outpatient Medications Medication Sig GUAIFENESIN ORAL Take 10 mL by mouth every 4 hours as needed. empagliflozin (JARDIANCE) 25 mg tablet Take 1 tablet by mouth daily with breakfast. potassium chloride ER (KLOR-CON) 20 mEq tablet Take 1 tablet by mouth once daily as needed (with furosemide). ondansetron (ZOFRAN) 4 mg tablet Take by mouth every 8 hours as needed for nausea/vomiting. tiZANidine HCl (ZANAFLEX) 2 mg capsule Take 1 capsule by mouth daily at bedtime. For muscle spasms. bisacodyl (DULCOLAX) 10 mg supp 1 Suppository by RECTAL route once daily as needed for constipation. If MOM ineffective. aluminum-magnesium hydroxide (MAG-AL) 200-200 mg/5 mL suspension Take 30 mL by mouth every 4 hours as needed (GI distress). simethicone, chewable (MYLICON) 80 mg chewable tablet Take 1 tablet by mouth four times a day as needed (gas, bloating). gabapentin (NEURONTIN) 300 mg capsule Take 2 capsules by mouth three times a day AND 3 capsules daily at bedtime. Do all this for 90 days. Patient should start on May 02, 2024. tamsulosin (FLOMAX) 0.4 mg Take 1 capsule by mouth once daily. GLIPIZIDE ORAL Take 2.5 mg by mouth once daily. ipratropium-albuterol (DUONEB) 0.5 mg-3 mg(2.5 mg base)/3 mL nebu Inhale 3 mL as instructed every 6hours as needed for wheezing/shortness of breath. albuterol HFA (PROVENTIL HFA, VENTOLIN HFA) 90 mcg/actuation inhaler Inhale 2 Puffs as instructed every 6 hours as needed for wheezing/shortness of breath. acetaminophen (TYLENOL) 325 mg tablet 650 mg every 4 hours. As needed for elevated temperature DO NOT EXCEED 4GM in 24 HOURS linaclotide (LINZESS) 145 mcg capsule Take 145 mcg by mouth daily at 6 am. magnesium oxide 400 mg magnesium tab Take 1 tablet by mouth at bedtime as needed (for leg cramps). magnesium hydroxide (MILK OF MAGNESIA) 400 mg/5 mL suspension Take 30 mL by mouth once daily as needed. Diaper,Brief, Adult,Disposable Size Medium, 1-2 times a day furosemide (LASIX) 40 mg tablet Take 1 tablet by mouth once daily as needed. apixaban (ELIQUIS) 5 mg tab(s) Take 1 tablet by mouth two times a day. [facility] levomefolate (DEPLIN) 7.5 mg capsule Take 2 capsules by mouth once daily. rosuvastatin (CRESTOR) 10 mg tablet Take 1 tablet by mouth daily at bedtime. PREDATOR CONTROL TRAPPER THYROID 60 mg tablet Take 1 tablet by mouth once daily. esomeprazole (NEXIUM) 20 mg capsule Take 20 mg by mouth daily at 6 am. metoprolol tartrate, short acting, (LOPRESSOR) 25 mg tablet Take 0.5 tablets by mouth two times a day. montelukast (SINGULAIR) 10 mg tablet Take 1 tablet by mouth daily at bedtime. blood sugar diagnostic (BLOOD GLUCOSE TEST) test strip Test blood sugar(s) 1 times daily. Dx: Type 2 DM - Uncontrolled E11.65 Insulin: No dicyclomine (BENTYL) 20 mg tablet Take 1 tablet by mouth twice daily as needed. From [facility]. Cholecalciferol, Vitamin D3, 125 mcg (5,000 unit) cap Take by mouth. traZODone (DESYREL) 150 mg tablet Take 2 [...] by mouth at bedtime as needed (nausea). Zqqetlj-Bfleiyysoaadd-Qtsrxbvc (EXCEDRIN MIGRAINE) 250-250-65 mg per tablet Take 1 tablet by mouth every 6 hours as needed for pain. ascorbic acid, vitamin C, (VITAMIN C) 500 mg tablet Take 1 tablet by mouth once daily. No current facility-administered medications for this visit. Objective BP 92/58 (BP Site: Left Arm, BP Position: Sitting, BP Cuff Size: Large Adult) Pulse (!) 53 Temp36.4 C (97.6 F) (Temporal) Wt 68.3 kg (150 lb 9.2 oz) BMI 27.02 kg/m Physical Exam Constitutional: General: She is not in acute distress. Appearance: She is not ill-appearing or diaphoretic. HENT: Nose: Congestion present. No rhinorrhea. Right Nostril: No epistaxis. Left Nostril: No epistaxis. Right Turbinates: Not swollen or pale. Left Turbinates: Not swollen or pale. Right Sinus: No maxillary sinus tenderness or frontal sinus tenderness. Left Sinus: No maxillary sinus tenderness or frontal sinus tenderness. Mouth/Throat: Pharynx: Oropharynx is clear. No oropharyngeal exudate or posterior oropharyngeal erythema. Cardiovascular: Rate and Rhythm: Normal rate and regular rhythm. Heart sounds: No murmur heard. Pulmonary: Breath sounds: Normal breath sounds. No wheezing or rales. Musculoskeletal: Right lower leg: No edema. Left lower leg: No edema. Neurological: Mental Status: She is alert. Assessment and Plan 1. Mild intermittent asthma without complication - ICD9: 493.90, ICD10: J45.20 (primary diagnosis) - Mild intermittent asthma stable - ALBUTEROL SULFATE HFA 90 MCG/ACTUATION AEROSOL INHALER 2. Chronic diastolic CHF (congestive heart failure) (HCC) - ICD9: 428.32, 428.0, ICD10: I50.32 - Compensated - Continue current medications - FUROSEMIDE 40 MG TABLET 3. Mixed hyperlipidemia - ICD9: 272.2, ICD10: E78.2 - Controlled - Continue current medications - Counseled on healthy diet and regular exercise - ROSUVASTATIN 10 MG TABLET - COMPREHENSIVE METABOLIC PANEL - LIPID PANEL BASIC 4. Type 2 diabetes mellitus with diabetic neuropathy, without long-term current use of insulin (HCC) - ICD9: 250.60, 357.2, ICD10: E11.40 - Controlled - Continue current medications - HEMOGLOBIN A1C - ALBUMIN/CREATININE RATIO, URINE 5. PAF (paroxysmal atrial fibrillation) (HCC) - ICD9: 427.31, ICD10: I48.0 - Controlled. Anticoagulated per [facility]. 6. Dizziness, nonspecific - ICD9: 780.4, ICD10: R42 - Chronic, stable. She will review blood pressure with her steak sauce maker. 7. Cervical radiculopathy - ICD9: 723.4, ICD10: M54.12 - Seeing Dr. Saji Parker. 8. Hypothyroidism, unspecified type - ICD9: 244.9, ICD10: E03.9 - continue current dose of Synthroid - THYROID STIMULATING HORMONE 9. Vitamin D deficiency - ICD9: 268.9, ICD10: E55.9 - Check. - VITAMIN D 25 HYDROXY 10. Subacute sinusitis, unspecified location - ICD9: 461.9, ICD10: J01.90 - Shared medical decision making was done. ENT referral declined. We agreed to empiric 7 days of amoxicillin. Findings were not as notable as before. - AMOXICILLIN 875 MG TABLET Dajuan Eric MD documented in [facility] encounter[facility] Telephone encounter Note * Telephone Encounter - Bernadette Lora LPN - 07/09/2024 1:55 PM EST Patient notified, she is wanting A1C order to be faxed to [facility], Patient is in Assisted Living. Order printed/faxed. Bernadette Lora LPN [facility]01-28-2025 Miscellaneous Notes* Telephone Encounter - Bernadette Lora LPN - 07/09/2024 1:55 PM EST Patient notified, she is wanting A1C order to be faxed to [facility], Patient is in Assisted Living. Order printed/faxed. Bernadette Lora LPN * Telephone Encounter - Dana Abrams RN - 07/09/2024 9:15 AM EST Called Pt and no answer. Pt did not have voicemail set up. Will need to call back and let Pt know that A1C was ordered. Dana Abrams RN * Telephone Encounter - Dana Abrams RN - 07/08/2024 4:17 PM EST Paula with [facility] called in to see what Pts most recent A1C was and I let her know on 01/16/24 it was 6.6. She was asking if provider had an upcoming appointment with Pt, and I told hershe has a 6 month f/u on 07/18/24. She was asking if provider would be able to put in an A1C for Pt or if they could send orders over for it. Provider over there wants a more recent one for upcoming surgery. Please add any other labs provider would like done. Please call Pt once labs are ordered. [facility] Telephone encounter Note * Telephone Encounter - Dana Abrams RN - 07/09/2024 9:15 AM EST Called Pt and no answer. Pt did not have voicemail set up. Will need to call back and let Pt know that A1C was ordered. Dana Abrams RN [facility]01-27-[facility] Telephone encounter Note* Telephone Encounter - Dana Abrams RN - 07/08/2024 4:17 PM EST Paula with [facility] called in to see what Pts most recent A1C was and I let her know on 01/16/24 it was 6.6. She was asking if provider had an upcoming appointment with Pt, and I told hershe has a 6 month f/u on 07/18/24. She was asking if provider would be able to put in an A1C for Pt or if they could send orders over for it. Provider over there wants a more recent one for upcoming surgery. Please add any other labs provider would like done. Please call Pt once labs are ordered. [facility] Evaluation note* Diagnosis Onset Date Resolution Status Admit Date Constipation acute June 8:42am GERD (gastroesophageal reflu x disease) acute June 25 8:42am Cervical kyphosis acute July 08, 2024 1:59pm Cervical myelopathy acute 2024 1:59pm Cough acute July 26, 2024 8:31am RIVKA (obstructive sleep apnea) chroni c July 26, 2024 8:31am Paroxysmal atrial fibrillation acute August 27, 2024 11:23am Sleep apnea chronic August 27 025 11:23am Essential hypertension inactive [facility] 2024 11:23am Atrial fibrillation with rap id ventricular response resolved September 05, 2024 11:40pm Dyspnea on exertion resolved September 05, 2024 11:40pm Generalized weakness resolved [facility] 2024 11:40pm Chronic anticoagulation inactive [facility] 2024 11:40pm Essential hypertension inactive [facility] 2024 11:40pm Asthma acute September 20 12:31pm RIVKA (obstructive sleep apnea) chroni c September 20, 2024 12:31pm Hyperlipidemia acute September 12:53pm Paroxysmal atrial fibrillation acute September 26, 2024 12:53pm Sleep apnea chronic September 26 025 12:53pm Essential hypertension inactive [facility] 2024 12:53pm [facility] Work Phone: 1(350) 934-192212-24-2024 Evaluation note* Diagnosis Onset Date Resolution Status Admit Date Paroxysmal atrial fibrillation acute June 04, 2024 8:39am SEYMOUR (dyspnea on exertion) chronic June 04, 2024 8:39am Essential hypertension chronic 2023 8:39am Sleep apnea chronic May 8:39am Constipation acute June 8:42am GERD (gastroesophageal reflu x disease) acute June 25 8:42am Cervical kyphosis acute July 08, 2024 1:59pm Cervical myelopathy acute 2024 1:59pm Cough acute July 26, 2024 8:31am RIVKA (obstructive sleep apnea) chroni c July 26, 2024 8:31am Paroxysmal atrial fibrillation acute August 27, 2024 11:23am Essential hypertension chronic [facility] 2024 11:23am Sleep apnea chronic August 27 025 11:23am [facility] Work Phone: 1(699) 869-946312-24-2024 Evaluation note* Diagnosis Onset Date Resolution Status Admit Date Paroxysmal atrial fibrillation acute June 04, 2024 8:39am SEYMOUR (dyspnea on exertion) chronic June 04, 2024 8:39am Essential hypertension 2023 8:39am Sleep apnea chronic May 8:39am Constipation acute June 8:42am GERD (gastroesophageal reflu x disease) acute June 25 8:42am Cervical kyphosis acute July 08, 2024 1:59pm Cervical myelopathy acute 2024 1:59pm Cough acute July 26, 2024 8:31am RIVKA (obstructive sleep apnea) chroni c July 26, 2024 8:31am Paroxysmal atrial fibrillation acute August 27, 2024 11:23am Essential hypertension chronic [facility] 2024 11:23am Sleep apnea chronic August 27, 2 025 11:23am Atrial fibrillation with rap id ventricular response acute September 05, 2024 11:40pm Chronic anticoagulation acute [facility] 2024 11:40pm Dyspnea on exertion acute September 05, 2024 11:40pm Generalized weakness acute [facility] 2024 11:40pm Essential hypertension chronic [facility] 2024 11:40pm [facility] Work Phone: 1(535) 597-508412-18-2024 Telephone encounter Note* Telephone Encounter - Dajuan Eric MD - 05/29/2024 6:02 PM EST Ordered via fax. [facility] Miscellaneous Notes* Telephone Encounter - Dajuan Eric MD - 05/29/2024 6:02 PM EST Ordered via fax. * Telephone Encounter - Andressa Ceballos MA - 05/29/2024 1:11 PM EST Please see patient message no does not appear recent order received and do not see medication ever prescribed by pcp. Please send rx and have staff print TE and will fax to [phone]. Andressa Ceballos MA * Telephone Encounter - Mary Jo Gonzalez RN - 05/29/2024 12:48 PM EST Patient calls to ask if provider's office has received order request for simethicone that was faxedfrom [facility] for gas and bloating. She reports they are not able to provide her with medication without the order from provider and she is in need. Patient has been taking medication as needed for years. Mary Jo Gonzalez RN documented [facility]12-[facility]24 Telephone encounter Note * Telephone Encounter - Andressa Ceballos MA - 05/29/2024 1:11 PM EST Please see patient message no does not appear recent order received and do not see medication ever prescribed by pcp. Please send rx and have staff print TE and will fax to [phone]. Andressa Ceballos MA [facility]12-18-[facility]24 Telephone encounter Note* Telephone Encounter - Mary Jo Gonzalez RN - 05/29/2024 12:48 PM EST Patient calls to ask if provider's office has received order request for simethicone that was fax[facility]from [facility] for gas and bloating. She reports they are not able to provide her with medication without the order from provider and she is in need. Patient has been taking medication as needed for years. Mary Jo Gonzalez RN [facility]11-05-[facility]24 Telephone encounter Note* Telephone Encounter - Anne Chavez LPN - 04/16/2024 3:53 PM EST Left a detailed message at the nurses station with message below. Called [phone] call went to [facility] and they transferred me to [facility] and got a voicemail. Anne Chavez LPN [facility]11-05-[facility]24 Miscellaneous Notes* Telephone Encounter - Anne Chavez LPN - 04/16/2024 3:53 PM EST Left a detailed message at the nurses station with message below. Called [phone] call went to [facility] and they transferred me to [facility] and got a voicemail. Anne Chavez LPN * Telephone Encounter - Kayce Nix APRN.TECHNICAL SERVICES COORDINATOR - 04/16/2024 1:20 PM EST This is prescribed by Dr. Raul Nix APRN.TECHNICAL SERVICES COORDINATOR * Telephone Encounter - Bernadette Lora LPN - 04/16/2024 12:26 PM EST [facility] asking for new RX for Hydrocodone-Acetaminophen ([place]) 5-325mg to be escripted to [facility]illed [facility]. Bernadette Lora LPN documented in [facility]11-[facility]-2024 Telephone encounter Note * Telephone Encounter - Kayce Nix APRN.CNP - 04/16/2024 1:20 PM EST This is prescribed by Dr. Raul Nix APRN.TECHNICAL SERVICES COORDINATOR [facility] Telephone encounter Note* Telephone Encounter - Bernadette Lora LPN - 04/16/2024 12:26 PM EST [facility] asking for new RX for Hydrocodone-Acetaminophen ([place]) 5-325mg to be escripted to [facility]. Bernadette Lora LPN [facility]10-29-[facility]24 NoteHNO ID: [id number] Author: DAJUAN ERIC MD Service: ? Author Type: Physician Type: Progress Notes Filed: 04/09/2024 12:59 Note Text: This note was created using [employer]. Subjective Ember Maldonado is a 73 year old female. She had sinus symptoms for almost one month now. She had frontal and maxillary pressure, brown nasal drainage, occasional nosebleeds, postnasal drainage related cough. She was treated at 03/27/24 with temporary improvement, but symptoms recurred shortly after doxycycline finished. Review of Systems Constitutional: Positive for fatigue. Negative for chills, diaphoresis and fever. HENT: Negative for ear pain, sore throat and trouble swallowing. Eyes: Negative for visual disturbance. Respiratory: Negative for cough, shortness of breath and wheezing. Gastrointestinal: Negative for diarrhea, nausea and vomiting. Genitourinary: Negative for difficulty urinating. Neurological: Negative for dizziness. ACTIVE PROBLEM LIST Type 2 Diabetes Mellitus With Diabetic Neuropathy, Without Long-Term Current Use of Insulin ([facility]) Lumbar Radiculopathy Cervical Radiculopathy Dizziness, Nonspecific Falls Frequently Hypothyroidism Paf (Paroxysmal Atrial Fibrillation) ([facility]) Mixed Hyperlipidemia Chronic Diastolic Chf (Congestive Heart Failure) ([facility]) Mild Intermittent Asthma Without Complication Anxiety and Depression Alternating Constipation and Diarrhea Cognitive Decline Mixed Incontinence Osteopenia Current Outpatient Medications Medication Sig GLIPIZIDE ORAL Take 2.5 mg by mouth once daily. ipratropium-albuterol (DUONEB) 0.5 mg-3 mg(2.5 mg base)/3 mL nebu Inhale 3 mL as instructed every 6 hours as needed for wheezing/shortness of breath. albuterol HFA (PROVENTIL HFA, VENTOLIN HFA) 90 mcg/actuation inhaler Inhale 2 Puffs as instructed every 6 hours as needed for wheezing/shortness of breath. acetaminophen (TYLENOL) 325 mg tablet 650 mg every 4 hours. As needed for elevated temperature DO NOT EXCEED 4GM in 24 HOURS aluminum-magnesium hydroxide-simethicone (MAALOX,MYLANTA,MAG-AL PLUS) 200-200-20 mg/5 mL suspension Take 30 mL by mouth every 4 hours as needed. linaclotide (LINZESS) 145 mcg capsule Take 145 mcg by mouth daily at 6 am. magnesium oxide 400 mg magnesium tab Take 1 tablet by mouth at bedtime as needed (for leg cramps). magnesium hydroxide (MILK OF MAGNESIA) 400 mg/5 mL suspension Take 30 mL by mouth once daily as needed. Diaper,Brief, Adult,Disposable Size Medium, 1-2 times a day furosemide (LASIX) 40 mg tablet Take 1 tablet by mouth once daily as needed. apixaban (ELIQUIS) 5 mg tab(s) Take 1 tablet by mouth two times a day. [facility] levomefolate (DEPLIN) 7.5 mg capsule Take 2 capsules by mouth once daily. potassium chloride ER (KLOR-CON) 20 mEq tablet Take 1 tablet by mouth once daily. rosuvastatin (CRESTOR) 10 mg tablet Take 1 tablet by mouth daily at bedtime. PREDATOR CONTROL TRAPPER THYROID 60 mg tablet Take 1 tablet by mouth once daily. esomeprazole (NEXIUM) 20 mg capsule Take 20 mg by mouth daily at 6 am. metoprolol tartrate, short acting, (LOPRESSOR) 25 mg tablet Take 0.5 tablets by mouth two times a day. montelukast (SINGULAIR) 10 mg tablet Take 1 tablet by mouth daily at bedtime. blood sugar diagnostic (BLOOD GLUCOSE TEST) test strip Test blood sugar(s) 1 times daily. Dx: Type 2 DM - Uncontrolled E11.65 Insulin: No dicyclomine (BENTYL) 20 mg tablet Take 1 tablet by mouth twice daily as needed. From [facility]. Cholecalciferol, Vitamin D3, 125 mcg (5,000 unit) cap Take by mouth. traZODone (DESYREL) 150 mg tablet Take 2 [...] by mouth at bedtime as needed (nausea). Bjpzfvt-Zgnnnmqoypgib-Tmxduaxu (EXCEDRIN MIGRAINE) 250-250-65 mg per tablet Take 1 tablet by mouth every 6 hours as needed for pain. ascorbic acid, vitamin C, (VITAMIN C) 500 mg tablet Take 1 tablet by mouth once daily. [START ON 05/02/2024] gabapentin (NEURONTIN) 300 mg capsule Take 2 capsules by mouth three times a day AND 3 capsules daily at bedtime. Do all this for 90 days. Patient should start on May 02, 2024. tamsulosin (FLOMAX) 0.4 mg Take 1 capsule by mouth once daily. amoxicillin (AMOXIL) 875 mg tablet Take 1 tablet by mouth two times a day for 10 days. empagliflozin (JARDIANCE) 25 (more content not included)...[facility]10-29-2024 History of Present illness Narrative* Dajuan Eric MD - 04/09/2024 12:04 PM EDT This note was created using [employer]. Subjective Ember Maldonado is a 73 year old female. She had sinus symptoms for almost one month now. She had frontal and maxillary pressure, brown nasal drainage, occasional nosebleeds, postnasal drainage related cough. She was treated at 03/27/24 with temporary improvement, but symptoms recurred shortly after doxycycline finished. Review of Systems Constitutional: Positive for fatigue. Negative for chills, diaphoresis and fever. HENT: Negative for ear pain, sore throat and trouble swallowing. Eyes: Negative for visual disturbance. Respiratory: Negative for cough, shortness of breath and wheezing. Gastrointestinal: Negative for diarrhea, nausea and vomiting. Genitourinary: Negative for difficulty urinating. Neurological: Negative for dizziness. ACTIVE PROBLEM LIST Type 2 Diabetes Mellitus With Diabetic Neuropathy, Without Long-Term Current Use of Insulin ([facility]) Lumbar Radiculopathy Cervical Radiculopathy Dizziness, Nonspecific Falls Frequently Hypothyroidism Paf (Paroxysmal Atrial Fibrillation) ([facility]) Mixed Hyperlipidemia Chronic Diastolic Chf (Congestive Heart Failure) ([facility]) Mild Intermittent Asthma Without Complication Anxiety and Depression Alternating Constipation and Diarrhea Cognitive Decline Mixed Incontinence Osteopenia Current Outpatient Medications Medication Sig GLIPIZIDE ORAL Take 2.5 mg by mouth once daily. ipratropium-albuterol (DUONEB) 0.5 mg-3 mg(2.5 mg base)/3 mL nebu Inhale 3 mL as instructed every 6hours as needed for wheezing/shortness of breath. albuterol HFA (PROVENTIL HFA, VENTOLIN HFA) 90 mcg/actuation inhaler Inhale 2 Puffs as instructed every 6 hours as needed for wheezing/shortness of breath. acetaminophen (TYLENOL) 325 mg tablet 650 mg every 4 hours. As needed for elevated temperature DO NOT EXCEED 4GM in 24 HOURS aluminum-magnesium hydroxide-simethicone (MAALOX,MYLANTA,MAG-AL PLUS) 200-200-20 mg/5 mL suspensionTake 30 mL by mouth every 4 hours as needed. linaclotide (LINZESS) 145 mcg capsule Take 145 mcg by mouth daily at 6 am. magnesium oxide 400 mg magnesium tab Take 1 tablet by mouth at bedtime as needed (for leg cramps). magnesium hydroxide (MILK OF MAGNESIA) 400 mg/5 mL suspension Take 30 mL by mouth once daily as needed. Diaper,Brief, Adult,Disposable Size Medium, 1-2 times a day furosemide (LASIX) 40 mg tablet Take 1 tablet by mouth once daily as needed. apixaban (ELIQUIS) 5 mg tab(s) Take 1 tablet by mouth two times a day. [facility] levomefolate (DEPLIN) 7.5 mg capsule Take 2 capsules by mouth once daily. potassium chloride ER (KLOR-CON) 20 mEq tablet Take 1 tablet by mouth once daily. rosuvastatin (CRESTOR) 10 mg tablet Take 1 tablet by mouth daily at bedtime. PREDATOR CONTROL TRAPPER THYROID 60 mg tablet Take 1 tablet by mouth once daily. esomeprazole (NEXIUM) 20 mg capsule Take 20 mg by mouth daily at 6 am. metoprolol tartrate, short acting, (LOPRESSOR) 25 mg tablet Take 0.5 tablets by mouth two times a day. montelukast (SINGULAIR) 10 mg tablet Take 1 tablet by mouth daily at bedtime. blood sugar diagnostic (BLOOD GLUCOSE TEST) test strip Test blood sugar(s) 1 times daily. Dx: Type 2 DM - Uncontrolled E11.65 Insulin: No dicyclomine (BENTYL) 20 mg tablet Take 1 tablet by mouth twice daily as needed. From [facility]. Cholecalciferol, Vitamin D3, 125 mcg (5,000 unit) cap Take by mouth. traZODone (DESYREL) 150 mg tablet Take 2 [...] by mouth at bedtime as needed (nausea). Orjhdza-Nolxtzqcakplp-Stlvwfgp (EXCEDRIN MIGRAINE) 250-250-65 mg per tablet Take 1 tablet by mouth every 6 hours as needed for pain. ascorbic acid, vitamin C, (VITAMIN C) 500 mg tablet Take 1 tablet by mouth once daily. [START ON 05/02/2024] gabapentin (NEURONTIN) 300 mg capsule Take 2 capsules by mouth three times a day AND 3 capsules daily at bedtime. Do all this for 90 days. Patient should start on May 02, 2024. tamsulosin (FLOMAX) 0.4 mg Take 1 capsule by mouth once daily. amoxicillin (AMOXIL) 875 mg tablet Take 1 tablet by mouth two times a day for 10 days. empagliflozin (JARDIANCE) 25 mg tablet Take 25 mg by mouth daily with breakfast. (Patient not taking: Reported on 03/27/2024) No current facility-administered medications for this visit. Objective BP 126/64 (BP Site: Left Arm, BP Position: Sitting, BP Cuff Size: Large Adult) Pulse 60 Temp 36.9 C (98.5 F) (Temporal) Wt 70.6 kg (155 lb 10.3 oz) BMI 27.92 kg/m Physical Exam Constitutional: General: She is not in acute distress. Appearance: She is not ill-appearing or diaphoretic. HENT: Right Ear: Tympanic membrane and ear canal normal. Left Ear: Tympanic membrane and ear canal normal. Nose: Congestion present. Right Nostril: No epistaxis. Left Nostril: No epistaxis. Right Turbinates: Swollen. Left Turbinates: Swollen. Right Sinus: Maxillary sinus tenderness and frontal sinus tenderness present. Left Sinus: Maxillary sinus tenderness and frontal sinus tenderness present. Mouth/Throat: Mouth: Mucous membranes are moist. Pharynx: Posterior oropharyngeal erythema present. No oropharyngeal exudate. Cardiovascular: Rate and Rhythm: Normal rate and regular rhythm. Heart sounds: No murmur heard. No gallop. Pulmonary: Breath sounds: Normal breath sounds. Musculoskeletal: Cervical back: No tenderness. Lymphadenopathy: Cervical: No cervical adenopathy. Neurological: Mental Status: She is alert. Assessment and Plan 1. Acute non-recurrent sinusitis, unspecified location - ICD9: 461.9, ICD10: J01.90 (primary diagnosis) - Will begin treatment with as per antibiotic as written, see orders - AMOXICILLIN 875 MG TABLET 2. Cervical radiculopathy - ICD9: 723.4, ICD10: M54.12 Stable. Refilled. - GABAPENTIN 300 MG CAPSULE 3. Lumbar radiculopathy - ICD9: 724.4, ICD10: M54.16 Chronic low back pain Stable. Refilled. Follows with pain management as well. - GABAPENTIN 300 MG CAPSULE 4. Mixed incontinence - ICD9: 788.33, ICD10: N39.46 Controlled. Refilled. - TAMSULOSIN 0.4 MG CAPSULE 5. Need for influenza vaccination - ICD9: V04.81, ICD10: Z23 - INFLUENZA VACCINE, PRSV FREE, AGE 65+ YR, HIGH DOSE, TRIVALENT (FLUZONE HIGH-DOSE) Dajuan Eric MD documented in this encounter[facility]10-[facility]24 NoteHNO ID: [id number] Author: SCOTTY BAEZ APRN.TECHNICAL SERVICES COORDINATOR Service: ? Author Type: Nurse Practitioner Type: Progress Notes Filed: 03/27/2024 14:33 Note Text: Subjective HPI Nontoxic-appearing female presents urgent care chief plaint possible sinus infection. Duration of symptoms 2 weeks. Associated symptoms sinus pressure drainage. History of sinus infections this feels similar. OTC medication little to no success. Denies any fevers. Past medical history prescription medications allergies reviewed. .Patient presents with: Cough: Cough, KAT, sinus, nausea x 2 weeks PAST MEDICAL HISTORY Diagnosis Date ADD (attention deficit disorder) Alternating constipation and diarrhea 06/02/2022 Dr. Chantell Blas, [facility] Anticoagulant medication declined by patient Anxiety and depression At risk for stroke Atrial fibrillation (HCC) 08/30 Cellulitis of lower extremity 2019 Chronic fatigue syndrome Dizziness, nonspecific 09/07/2021 Falls frequently 09/07/2021 Fibromyalgia Folic acid deficiency GERD (gastroesophageal reflux disease) Hypothyroidism Insomnia Intractable back pain Mild intermittent asthma without complication 10/05/2021 Mixed incontinence 12/13/2023 Osteopenia Type 2 diabetes mellitus without complication, without long-term current use of insulin ([facility]) 04/21/2021 PAST SURGICAL HISTORY Procedure Laterality Date APPENDECTOMY 1973 COLONOSCOPY SCREENING 08/2020, 08/2020 COLONOSCOPY SCREENING 08/07/2023 Dr. Blas. [place] 5 years. No biopsy. EXTRACTION ERUPTED TOOTH/EXR 1973 HYSTERECTOMY HX 1989 Endometriosis. Adenomyosis. Total hysterectomy, BSO LAPAROSCOPIC CHOLECYSTECTOMY 1997 LIGATE FALLOPIAN TUBE Bilateral 1989 SHOULDER SURGERY HX Right 1984 right shoulder X 3. 1978,1980,1983 TONSILLECTOMY HX 1971 ALLERGIES Sulfa (Sulfonamide Antibiotics), Compazine [Prochlorperazine], Lyrica [Pregabalin], Metformin, [place], and Toradol [Ketorolac] MEDICATIONS GLIPIZIDE ORAL Take by mouth. ipratropium-albuterol (DUONEB) 0.5 mg-3 mg(2.5 mg base)/3 mL nebu Inhale 3 mL as instructed every 6 hours as needed for wheezing/shortness of breath. albuterol HFA (PROVENTIL HFA, VENTOLIN HFA) 90 mcg/actuation inhaler Inhale 2 Puffs as instructed every 6 hours as needed for wheezing/shortness of breath. acetaminophen (TYLENOL) 325 mg tablet 650 mg every 4 hours. As needed for elevated temperature DO NOT EXCEED 4GM in 24 HOURS aluminum-magnesium hydroxide-simethicone (MAALOX,MYLANTA,MAG-AL PLUS) 200-200-20 mg/5 mL suspension Take 30 mL by mouth every 4 hours as needed. linaclotide (LINZESS) 145 mcg capsule Take 145 mcg by mouth daily at 6 am. magnesium oxide 400 mg magnesium tab Take 1 tablet by mouth at bedtime as needed (for leg cramps). magnesium hydroxide (MILK OF MAGNESIA) 400 mg/5 mL suspension Take 30 mL by mouth once daily as needed. Diaper,Brief, Adult,Disposable Size Medium, 1-2 times a day furosemide (LASIX) 40 mg tablet Take 1 tablet by mouth once daily as needed. apixaban (ELIQUIS) 5 mg tab(s) Take 1 tablet by mouth two times a day. [facility] levomefolate (DEPLIN) 7.5 mg capsule Take 2 capsules by mouth once daily. potassium chloride ER (KLOR-CON) 20 mEq tablet Take 1 tablet by mouth once daily. rosuvastatin (CRESTOR) 10 mg tablet Take 1 tablet by mouth daily at bedtime. PREDATOR CONTROL TRAPPER THYROID 60 mg tablet Take 1 tablet by mouth once daily. esomeprazole (NEXIUM) 20 mg capsule Take 20 mg by mouth daily at 6 am. metoprolol tartrate, short acting, (LOPRESSOR) 25 mg tablet Take 0.5 tablets by mouth two times a day. montelukast (SINGULAIR) 10 mg tablet Take 1 tablet by mouth daily at bedtime. tamsulosin (FLOMAX) 0.4 mg Take 1 capsule by mouth once daily. blood sugar diagnostic (BLOOD GLUCOSE TEST) test strip Test blood sugar(s) 1 times daily. Dx: Type 2 DM - Uncontrolled E11.65 Insulin: No dicyclomine (BENTYL) 20 mg tablet Take 1 tablet by mouth twice daily as needed. From [facility]. Cholecalciferol, Vitamin D3, 125 mcg (5,000 unit) cap Take by mouth. traZODone (DESYREL) 150 mg tablet Take 2 [...] by mouth at bedtime as needed (nausea). Pqrglii-Ryniskkwxgjyt-Zjmfhmyk (EXCEDRIN MIGRAINE) 250-250-65 mg per tablet Take 1 tablet by mouth every 6 hours as needed for pa (more content not included)...[facility]10-16-2024 History of Present illness Narrative* Scotty Baez, JOURDAN.TECHNICAL SERVICES COORDINATOR - 03/27/2024 2:15 PM EDT Subjective HPI Nontoxic-appearing female presents urgent care chief plaint possible sinus infection. Duration of symptoms 2 weeks. Associated symptoms sinus pressure drainage. History of sinus infections this feelssimilar. OTC medication little to no success. Denies any fevers. Past medical history prescription medications allergies reviewed. .Patient presents with: Cough: Cough, KAT, sinus, nausea x 2 weeks PAST MEDICAL HISTORY Diagnosis Date ADD (attention deficit disorder) Alternating constipation and diarrhea 06/02/2022 Dr. Chantell Blas, [facility] Anticoagulant medication declined by patient Anxiety and depression At risk for stroke Atrial fibrillation (HCC) 08/30 Cellulitis of lower extremity 2019 Chronic fatigue syndrome Dizziness, nonspecific 09/07/2021 Falls frequently 09/07/2021 Fibromyalgia Folic acid deficiency GERD (gastroesophageal reflux disease) Hypothyroidism Insomnia Intractable back pain Mild intermittent asthma without complication 10/05/2021 Mixed incontinence 12/13/2023 Osteopenia Type 2 diabetes mellitus without complication, without long-term current use of insulin (HCC) 04/21/2021 PAST SURGICAL HISTORY Procedure Laterality Date APPENDECTOMY 1973 COLONOSCOPY SCREENING 08/2020, 08/2020 COLONOSCOPY SCREENING 08/07/2023 Dr. Blas. Recheck 5 years. No biopsy. EXTRACTION ERUPTED TOOTH/EXR 1972 HYSTERECTOMY HX 1989 Endometriosis. Adenomyosis. Total hysterectomy, BSO LAPAROSCOPIC CHOLECYSTECTOMY 1997 LIGATE FALLOPIAN TUBE Bilateral 1988 SHOULDER SURGERY HX Right 1984 right shoulder X 3. 1978,1980,1983 TONSILLECTOMY HX 1972 ALLERGIES Sulfa (Sulfonamide Antibiotics), Compazine [Prochlorperazine], Lyrica [Pregabalin], Metformin, Mosquitos, and Toradol [Ketorolac] MEDICATIONS GLIPIZIDE ORAL Take by mouth. ipratropium-albuterol (DUONEB) 0.5 mg-3 mg(2.5 mg base)/3 mL nebu Inhale 3 mL as instructed every 6hours as needed for wheezing/shortness of breath. albuterol HFA (PROVENTIL HFA, VENTOLIN HFA) 90 mcg/actuation inhaler Inhale 2 Puffs as instructed every 6 hours as needed for wheezing/shortness of breath. acetaminophen (TYLENOL) 325 mg tablet 650 mg every 4 hours. As needed for elevated temperature DO NOT EXCEED 4GM in 24 HOURS aluminum-magnesium hydroxide-simethicone (MAALOX,MYLANTA,MAG-AL PLUS) 200-200-20 mg/5 mL suspensionTake 30 mL by mouth every 4 hours as needed. linaclotide (LINZESS) 145 mcg capsule Take 145 mcg by mouth daily at 6 am. magnesium oxide 400 mg magnesium tab Take 1 tablet by mouth at bedtime as needed (for leg cramps). magnesium hydroxide (MILK OF MAGNESIA) 400 mg/5 mL suspension Take 30 mL by mouth once daily as needed. Diaper,Brief, Adult,Disposable Size Medium, 1-2 times a day furosemide (LASIX) 40 mg tablet Take 1 tablet by mouth once daily as needed. apixaban (ELIQUIS) 5 mg tab(s) Take 1 tablet by mouth two times a day. [facility] levomefolate (DEPLIN) 7.5 mg capsule Take 2 capsules by mouth once daily. potassium chloride ER (KLOR-CON) 20 mEq tablet Take 1 tablet by mouth once daily. rosuvastatin (CRESTOR) 10 mg tablet Take 1 tablet by mouth daily at bedtime. PREDATOR CONTROL TRAPPER THYROID 60 mg tablet Take 1 tablet by mouth once daily. esomeprazole (NEXIUM) 20 mg capsule Take 20 mg by mouth daily at 6 am. metoprolol tartrate, short acting, (LOPRESSOR) 25 mg tablet Take 0.5 tablets by mouth two times a day. montelukast (SINGULAIR) 10 mg tablet Take 1 tablet by mouth daily at bedtime. tamsulosin (FLOMAX) 0.4 mg Take 1 capsule by mouth once daily. blood sugar diagnostic (BLOOD GLUCOSE TEST) test strip Test blood sugar(s) 1 times daily. Dx: Type 2 DM - Uncontrolled E11.65 Insulin: No dicyclomine (BENTYL) 20 mg tablet Take 1 tablet by mouth twice daily as needed. From [facility]. Cholecalciferol, Vitamin D3, 125 mcg (5,000 unit) cap Take by mouth. traZODone (DESYREL) 150 mg tablet Take 2 [...] by mouth at bedtime as needed (nausea). Siiqzpo-Rnbqkhtydriso-Jgqowwff (EXCEDRIN MIGRAINE) 250-250-65 mg per tablet Take 1 tablet by mouth every 6 hours as needed for pain. ascorbic acid, vitamin C, (VITAMIN C) 500 mg tablet Take 1 tablet by mouth once daily. empagliflozin (JARDIANCE) 25 mg tablet Take 25 mg by mouth daily with breakfast. (Patient not taking: Reported on 03/27/2024) gabapentin (NEURONTIN) 300 mg capsule Take 2 capsules by mouth three times a day AND 3 capsules daily at bedtime. Do all this for 90 days. FAMILY HISTORY Problem Relation Age of Onset Depression Mother Depression Father Anxiety disorder Father Social History Tobacco Use Smoking status: Former Current packs/day: 0.00 Average packs/day: 2.0 packs/day for 12.0 years (24.1 ttl pk-yrs) Types: Cigarettes Start date: 1977 Quit date: 12/10/1988 Years since quittin.3 Smokeless tobacco: Never Tobacco comments: from age 27 Substance Use Topics Alcohol use: Not Currently Comment: none since 1995 Drug use: Not Currently Types: Marijuana Comment: none since 1969 BP 128/78 Pulse 68 Temp 36.8 C (98.2 F) (Tympanic) Resp 18 Wt 73.5 kg (162 lb 0.6 oz) SpO2 98% BMI 29.07 kg/m Review of Systems Constitutional: Negative for chills, fever and malaise/fatigue. HENT: Positive for congestion and sinus pain. Negative for ear discharge, ear pain and sore throat. Eyes: Negative for blurred vision, pain, discharge and redness. Respiratory: Negative for cough, hemoptysis, sputum production, shortness of breath, wheezing and stridor. Cardiovascular: Negative for chest pain. Gastrointestinal: Negative for abdominal pain, diarrhea, nausea and vomiting. Musculoskeletal: Negative for myalgias. Skin: Negative for itching and rash. Neurological: Negative for dizziness and headaches. Objective Physical Exam Constitutional: General: She is not in acute distress. Appearance: She is not diaphoretic. HENT: Head: Normocephalic. Jaw: No trismus, tenderness, swelling or pain on movement. Nose: Congestion present. Right Sinus: Maxillary sinus tenderness and frontal sinus tenderness present. Left Sinus: Maxillary sinus tenderness and frontal sinus tenderness present. Mouth/Throat: Mouth: Mucous membranes are moist. Pharynx: Oropharynx is clear. Uvula midline. No pharyngeal swelling, oropharyngeal exudate, posterior oropharyngeal erythema or uvula swelling. Eyes: Conjunctiva/sclera: Conjunctivae normal. Pupils: Pupils are equal, round, and reactive to light. Cardiovascular: Rate and Rhythm: Normal rate and regular rhythm. Heart sounds: Normal heart sounds. Pulmonary: Effort: Pulmonary effort is normal. No tachypnea, accessory muscle usage or respiratory distress. Breath sounds: Normal breath sounds. No stridor. No wheezing, rhonchi or rales. Musculoskeletal: Cervical back: Normal range of motion and neck supple. No edema, erythema, rigidity or tenderness. No pain with movement. Normal range of motion. Lymphadenopathy: Cervical: No cervical adenopathy. Skin: General: Skin is warm and dry. Neurological: Mental Status: She is alert and oriented to person, place, and time. ASSESSMENT/PLAN: 1. Bacterial sinusitis - ICD9: 473.9, 041.9, ICD10: J32.9, B96.89 Diagnosed with bacterial sinusitis. Placed on doxycycline. Patient was educated on supportive therapies. Patient will follow up with primary care provider 2 to 3 days symptoms do not improve. Patientwas instructed to immediately proceed to emergency room for any new, worsening, or symptoms lastinglonger than anticipated. The patient's clinical presentation is otherwise unremarkable at this time. Based on exam and clinical finding, the patient is stable for discharge. Plan of care was discussed with patient. Patient verbalizes understanding and agrees to plan of care. This note was generatedusing Corpora software. It may contain errors in wording, punctuation, or spelling. Scotty Baez APRN.TECHNICAL SERVICES COORDINATOR documented in [facility] encounterMer[facility] Telephone encounter Note * Telephone Encounter - Clive Johnson MA - 03/25/2024 11:53 AM EDT Patient notified, verbalized understanding. States she will call for a ride and go to express care. [facility] Miscellaneous Notes* Telephone Encounter - Clive Johnson MA - 03/25/2024 11:53 AM EDT Patient notified, verbalized understanding. States she will call for a ride and go to express care. * Telephone Encounter - Kayce Nix APRN.CNP - 03/25/2024 11:39 AM EDT Needs to be seen in office or Express Care Kayce Nix APRN.TECHNICAL SERVICES COORDINATOR * Telephone Encounter - Camille Diane LPN - 03/25/2024 11:26 AM EDT Pt. has facial pain ,headache, nasal congestion x 2 weeks. She would like antibiotic called in. Reminded her that Express care is available. documented in this encounterMer[facility]10-14-2024 Telephone encounter Note * Telephone Encounter - Kayce Nix APRN.CNP - 03/25/2024 11:39 AM EDT Needs to be seen in office or Express Care Kayce Nix APRN.TECHNICAL SERVICES COORDINATOR [facility] Telephone encounter Note* Telephone Encounter - Camille Diane LPN - 03/25/2024 11:26 AM EDT Pt. has facial pain ,headache, nasal congestion x 2 weeks. She would like antibiotic called in. Reminded her that Express care is available. [facility] Work Phone: 1(727) 510-256910-02-2024 NotePatient Outreach (INTMMN) EMBER MALDONADO ([id number]) 1950 F Date Time Provider Department 03/13/24 DAJUAN ERIC INTMMN During your visit today, we recorded the following information about you: Allergies As of Date: 03/13/2024 Noted Allergy Reaction SULFA (SULFONAMIDE ANTIBIOTICS) 04/21/2021 10 - Anaphylaxis COMPAZINE (PROCHLORPERAZINE) 09/23/2022 1 - Mental Status Change LYRICA (PREGABALIN) 12/26/2022 1 - Mental Status Change METFORMIN 09/22/2023 8 - GI Upset Comments: Severe stomach pain MOSQUITOS 05/25/2023 10 - Anaphylaxis TORADOL (KETOROLAC) 12/26/2022 14 - Other: See Comments Comments: Causes pain Date Reviewed: 02/23/2024 Reviewed by: Arely Mcdermott MA - Fully Assessed Visit Diagnosis:Encounter for screening mammogram for breast cancer [Z12.31] Order(s):GERA SCREENING W MICKY [[id number]] Order #: [id number] FUTURE Prescriptions as of 03/18/2024 - ipratropium-albuterol (DUONEB) 0.5 mg-3 mg(2.5 mg base)/3 mL nebu Inhale 3 mL as instructed every 6 hours as needed for wheezing/shortness of breath. - albuterol HFA (PROVENTIL HFA, VENTOLIN HFA) 90 mcg/actuation inhaler Inhale 2 Puffs as instructed every 6 hours as needed for wheezing/shortness of breath. - acetaminophen (TYLENOL) 325 mg tablet 650 mg every 4 hours. As needed for elevated temperature DO NOT EXCEED 4GM in 24 HOURS - aluminum-magnesium hydroxide-simethicone (MAALOX,MYLANTA,MAG-AL PLUS) 200-200-20 mg/5 mL suspension Take 30 mL by mouth every 4 hours as needed. - empagliflozin (JARDIANCE) 25 mg tablet Take 25 mg by mouth daily with breakfast. - linaclotide (LINZESS) 145 mcg capsule Take 145 mcg by mouth daily at 6 am. - magnesium oxide 400 mg magnesium tab Take 1 tablet by mouth at bedtime as needed (for leg cramps). - magnesium hydroxide (MILK OF MAGNESIA) 400 mg/5 mL suspension Take 30 mL by mouth once daily as needed. - Diaper,Brief, Adult,Disposable Size Medium, 1-2 times a day - furosemide (LASIX) 40 mg tablet Take 1 tablet by mouth once daily as needed. - apixaban (ELIQUIS) 5 mg tab(s) Take 1 tablet by mouth two times a day. [facility] - levomefolate (DEPLIN) 7.5 mg capsule Take 2 capsules by mouth once daily. - potassium chloride ER (KLOR-CON) 20 mEq tablet Take 1 tablet by mouth once daily. - rosuvastatin (CRESTOR) 10 mg tablet Take 1 tablet by mouth daily at bedtime. - gabapentin (NEURONTIN) 300 mg capsule Take 2 capsules by mouth three times a day AND 3 capsules daily at bedtime. Do all this for 90 days. - PREDATOR CONTROL TRAPPER THYROID 60 mg tablet Take 1 tablet by mouth once daily. - esomeprazole (NEXIUM) 20 mg capsule Take 20 mg by mouth daily at 6 am. - metoprolol tartrate, short acting, (LOPRESSOR) 25 mg tablet Take 0.5 tablets by mouth two times a day. - montelukast (SINGULAIR) 10 mg tablet Take 1 tablet by mouth daily at bedtime. - tamsulosin (FLOMAX) 0.4 mg Take 1 capsule by mouth once daily. - blood sugar diagnostic (BLOOD GLUCOSE TEST) test strip Test blood sugar(s) 1 times daily. Dx: Type 2 DM - Uncontrolled E11.65 Insulin: No - dicyclomine (BENTYL) 20 mg tablet Take 1 tablet by mouth twice daily as needed. From [facility]. - Cholecalciferol, Vitamin D3, 125 mcg (5,000 unit) cap Take by mouth. - traZODone (DESYREL) 150 mg tablet Take 2 tablets by mouth daily at bedtime. [facility] - nitroglycerin sublingual (NITROSTAT) 0.4 mg SL tablet Dissolve 1 tablet under the tongue every 5 minutes as needed. - Lancets lancets Test blood sugar(s) 100 times daily. Dx: Type 2 DM - Uncontrolled E11.65 Insulin: No - diphenhydrAMINE (BENADRYL) 25 mg capsule Take 25 mg by mouth every 4 hours as needed. - multivitamin/iron/folic acid (CENTRUM WOMEN ORAL) Take by mouth once daily. - buprenorphine (BUTRANS) 5 mcg/hour Apply 1 Patch as directed one time a week. Per Dr. Carter - HYDROcodone-acetaminophen (NORCO) 5-325 mg per tablet Take 1 tablet by mouth twice daily. - dimenhyDRINATE (DRAMAMINE) 50 mg tablet Take 50 mg by mouth at bedtime as needed (nausea). - Nvswjgb-Asdzkjbrtqiyz-Wwratkgw (EXCEDRIN MIGRAINE) 250-250-65 mg per tablet Take 1 tablet by mouth every 6 hours as needed for pain. - ascorbic acid, vitamin C, (VITAMIN C) 500 mg tablet Take 1 tablet by mouth once daily. 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 Lumbar radiculopathy [M54.16] 09/07/2021 Cervical radiculopathy [M54.12] 09/07/2021 Dizziness, nonspecific [R42] 09/07/2021 Falls frequently [R29.6] 09/07/2021 Hypothyroidism [E03.9] 09/07/2021 PAF (paroxysmal atrial fibrillation) (HCC) [I48*09/08/2021 Mixed hyperlipidemia [E78.2] 09/27/2021 Chronic diastolic CHF (congestive heart failure*09/27/2021 Mild intermittent asthma without complication [*10/05/2021 Anxiety and depression [F41.9, F32.A] 04/06/2022 At risk for stroke (more content not included)...[facility] 02-26-2024 Telephone encounter Note* Telephone Encounter - Annamaria Morgan MA - 02/26/2024 10:58 AM EDT Images from the original note were not included. Call to pt and notified of results below. Pt has question about her lungs, feels she has a lot of mucous or a plug. Is requesting a Rx for her Nebulizer machine to use to help break things up. Feels she needs this. Requesting this to go to [facility] through [employer]. Asking for x-ray order to be fax[facility] to [facility] for her to complete there, due to difficulty with transportation. Asked for fax number, gave [phone] ATTN: Donis Tamayo who's the Director where she lives. This has been faxed within [employer]. Annamaria Morgan MA Notified her of this as well. Honey Holguin, JOURDAN.TECHNICAL SERVICES COORDINATOR [facility] Please let patient know her BNP is slightly elevated but still acceptable. [facility]09-16-[facility] Miscellaneous Notes* Telephone Encounter - Annamaria Morgan MA - 02/26/2024 10:58 AM EDT Images from the original note were not included. Call to pt and notified of results below. Pt has question about her lungs, feels she has a lot of mucous or a plug. Is requesting a Rx for her Nebulizer machine to use to help break things up. Feels she needs this. Requesting this to go to [facility] through [facility]. Asking for x-ray order to be faxed to [facility] for her to complete there, due to difficulty with transportation. Asked for fax number, gave [phone] ATTN: Donis Tamayo who's the Director where she lives. This has been faxed within [employer]. Annamaria Morgan MA Notified her of this as well. Honey Holguin APRN.CNP [facility] Please let patient know her BNP is slightly elevated but still acceptable. * Telephone Encounter - Annamaria Morgan MA - 02/26/2024 10:57 AM EDT ----- Message from Honey Holguin APRN.TECHNICAL SERVICES COORDINATOR sent at 02/26/2024 10:51 AM EDT ----- Please let patient know her strep and viral panel are negative documented in this encounterMer[facility]09-16-2024 Telephone encounter Note * Telephone Encounter - Annamaria Morgan MA - 02/26/2024 10:57 AM EDT ----- Message from Honey Holguin APRN.TECHNICAL SERVICES COORDINATOR sent at 02/26/2024 10:51 AM EDT ----- Please let patient know her strep and viral panel are negative [facility]09-13-[facility] Telephone encounter Note* Telephone Encounter - Karine Hurtado MA - 02/23/2024 3:44 PM EDT Pt notified and voiced understanding. Karine Hurtado MA [facility]09-13-2024 Miscellaneous Notes* Telephone Encounter - Karine Hurtado MA - 02/23/2024 3:44 PM EDT Pt notified and voiced understanding. Karine Hurtado MA * Telephone Encounter - Honey Holguin APRN.CNP - 02/23/2024 3:04 PM EDT Please let patient know her xray shows focal atelectasis in her left lung. I would encourage her tocough and deep breath 10 times an hour while awake. I also sent in a prescription for an inhaler. Iwould like to have her repeat her chest xray in 1 week. documented in this encounterMer[facility]09-13-2024 Telephone encounter Note * Telephone Encounter - Honey Holguin APRN.CNP - 02/23/2024 3:04 PM EDT Please let patient know her xray shows focal atelectasis in her left lung. I would encourage her tocough and deep breath 10 times an hour while awake. I also sent in a prescription for an inhaler. Iwould like to have her repeat her chest xray in 1 week. [facility]09-13-[facility] History of Present illness Narrative* Judy Lu, RT(R) - 02/23/2024 12:00 PM EDT Radiology Service Progress Note PATIENT NAME: Ember Maldonado DATE OF SERVICE: February 23, 2024 TIME: 12:01 PM PATIENT IDENTITY VERIFICATION COMPLETED USING TWO (2) IDENTIFIERS: Name and Date of confirmedby patient verbally. FALL SCREENING: Has the patient had 2 falls in the last year or 1 fall with injury or currently using an Ambulatory Assistive Device (Walker, Cane, Wheelchair, Crutches, etc.)? Yes, Patient High Riskfor Falls What interventions were put in place to prevent falls during this visit? Instructed Patient to Callfor Help if Needed, Offered Assistance with Transfers/Clothing, and Increased Observations by Caregivers PATIENT GENDER DATA: Female. status: : No status: NO. PATIENT RELEVANT IMPLANT DATA REVIEWED: Yes PATIENT PRESENTS WITH AN IMPLANTABLE OR ATTACHED WORKFORCE SERVICES REPRESENTATIVE: No RADIOLOGY DEPARTMENT: General X-ray: Exam(s) Completed: Chest X-Ray PERIPHERAL IV DATA: Not applicable SIGNED BY: RT Paulina(R) February 23, 2024 12:01 PM documented in this encounterMercy [facility]09-13-2024 NoteHNO ID: [id number] Author: JUDY LU RT(R) Service: Radiology Author Type: Technologist Type: Progress Notes Filed: 02/23/2024 12:09 Note Text: Radiology Service Progress Note PATIENT NAME: Ember Maldonado DATE OF SERVICE: February 23, 2024 TIME: 12:01 PM PATIENT IDENTITY VERIFICATION COMPLETED USING TWO (2) IDENTIFIERS: Name and Date of confirmed by patient verbally. FALL SCREENING: Has the patient had 2 falls in the last year or 1 fall with injury or currently using an Ambulatory Assistive Device (Walker, Cane, Wheelchair, Crutches, etc.)? Yes, Patient High Risk for Falls What interventions were put in place to prevent falls during this visit? Instructed Patient to Call for Help if Needed, Offered Assistance with Transfers/Clothing, and Increased Observations by Caregivers PATIENT GENDER DATA: Female. status: : No status: NO. PATIENT RELEVANT IMPLANT DATA REVIEWED: Yes PATIENT PRESENTS WITH AN IMPLANTABLE OR ATTACHED WORKFORCE SERVICES REPRESENTATIVE: No RADIOLOGY DEPARTMENT: General X-ray: Exam(s) Completed: Chest X-Ray PERIPHERAL IV DATA: Not applicable SIGNED BY: RT Paulina(Bambi) February 23, 2024 12:01 [facility]09-13-2024 NoteHNO ID: [id number] Author: HONEY HOLGUIN APRN.TECHNICAL SERVICES COORDINATOR Service: ? Author Type: Nurse Practitioner Type: Progress Notes Filed: 02/23/2024 11:34 Note Text: Chief Complaint Patient presents with: Sore Throat: X 5 days falls: More frequent fallsX 1 week HPI Ember Maldonado is a 73 year old female who presents here today for Above Complaints.. Patient presents for sore throat, congestion, cough, and increased falls x 1 week. Patient concerned for strep throat. Patient also reports generalized weakness to bilat lower legs. Also reports increased edema to bilat lower legs. Hx of CHF. Past medical history, appointments, medications, allergies reviewed. Previous Medical History PAST MEDICAL HISTORY Diagnosis Date ADD (attention deficit disorder) Alternating constipation and diarrhea 06/02/2022 Dr. Chantell Blas, [place] [facility] Anticoagulant medication declined by patient Anxiety and depression At risk for stroke Atrial fibrillation ([facility]) 08/30 Cellulitis of lower extremity 2019 Chronic fatigue syndrome Dizziness, nonspecific 09/07/2021 Falls frequently 09/07/2021 Fibromyalgia Folic acid deficiency GERD (gastroesophageal reflux disease) Hypothyroidism Insomnia Intractable back pain Mild intermittent asthma without complication 10/05/2021 Mixed incontinence 12/13/2023 Osteopenia Type 2 diabetes mellitus without complication, without long-term current use of insulin ([facility]) 04/21/2021 Previous Surgical History PAST SURGICAL HISTORY Procedure Laterality Date APPENDECTOMY 1973 COLONOSCOPY SCREENING 08/2020, 08/2020 COLONOSCOPY SCREENING 08/07/2023 Dr. Blas. Recheck 5 years. No biopsy. EXTRACTION ERUPTED TOOTH/EXR 1972 HYSTERECTOMY HX 1989 Endometriosis. Adenomyosis. Total hysterectomy, BSO LAPAROSCOPIC CHOLECYSTECTOMY 1997 LIGATE FALLOPIAN TUBE Bilateral 1988 SHOULDER SURGERY HX Right 1983 right shoulder X 3. 1978,1980,1983 TONSILLECTOMY HX 1972 Family History FAMILY HISTORY Problem Relation Age of Onset Depression Mother Depression Father Anxiety disorder Father Patient Allergies ALLERGIES Allergen Reactions Sulfa (Sulfonamide * Anaphylaxis Compazine [Prochlor* Mental Status Change Lyrica [Pregabalin] Mental Status Change Metformin GI Upset Severe stomach pain Mosquitos Anaphylaxis Toradol [Ketorolac] Other: See Comments Causes pain Current Medications Current Outpatient Medications on File Prior to Visit Medication Sig acetaminophen (TYLENOL) 325 mg tablet 650 mg every 4 hours. As needed for elevated temperature DO NOT EXCEED 4GM in 24 HOURS aluminum-magnesium hydroxide-simethicone (MAALOX,MYLANTA,MAG-AL PLUS) 200-200-20 mg/5 mL suspension Take 30 mL by mouth every 4 hours as needed. empagliflozin (JARDIANCE) 25 mg tablet Take 25 mg by mouth daily with breakfast. linaclotide (LINZESS) 145 mcg capsule Take 145 mcg by mouth daily at 6 am. magnesium oxide 400 mg magnesium tab Take 1 tablet by mouth at bedtime as needed (for leg cramps). magnesium hydroxide (MILK OF MAGNESIA) 400 mg/5 mL suspension Take 30 mL by mouth once daily as needed. Diaper,Brief, Adult,Disposable Size Medium, 1-2 times a day furosemide (LASIX) 40 mg tablet Take 1 tablet by mouth once daily as needed. apixaban (ELIQUIS) 5 mg tab(s) Take 1 tablet by mouth two times a day. [facility] albuterol HFA (PROVENTIL HFA, VENTOLIN HFA) 90 mcg/actuation inhaler Inhale as instructed. levomefolate (DEPLIN) 7.5 mg capsule Take 2 capsules by mouth once daily. potassium chloride ER (KLOR-CON) 20 mEq tablet Take 1 tablet by mouth once daily. rosuvastatin (CRESTOR) 10 mg tablet Take 1 tablet by mouth daily at bedtime. gabapentin (NEURONTIN) 300 mg capsule Take 2 capsules by mouth three times a day AND 3 capsules daily at bedtime. Do all this for 90 days. PREDATOR CONTROL TRAPPER THYROID 60 mg tablet Take 1 tablet by mouth once daily. esomeprazole (NEXIUM) 20 mg capsule Take 20 mg by mouth daily at 6 am. metoprolol tartrate, short acting, (LOPRESSOR) 25 mg tablet Take 0.5 tablets by mouth two times a day. montelukast (SINGULAIR) 10 mg tablet Take 1 tablet by mouth daily at bedtime. tamsulosin (FLOMAX) 0.4 mg Take 1 capsule by mouth once daily. blood sugar diagnostic (BLOOD GLUCOSE TEST) test strip Test blood sugar(s) 1 times daily. Dx: Type 2 DM - Uncontrolled E11.65 Insulin: No dicyclomine (BENTYL) 20 mg tablet Take 1 tablet by mouth twice daily as needed. From [facility]. Cholecalciferol, Vitamin D3, 125 mcg (5,000 unit) cap Take by mouth. traZODone (DESYREL) 150 mg tablet Take 2 [...] by mouth every 4 hours as needed. multivitamin (more content not included)...[facility]09-13-2024 History of Present illness Narrative* Honey Holguin APRN.TECHNICAL SERVICES COORDINATOR - 02/23/2024 10:54 AM EDT Chief Complaint Patient presents with: Sore Throat: X 5 days falls: More frequent fallsX 1 week HPI Ember Maldonado is a 73 year old female who presents here today for Above Complaints.. Patient presents for sore throat, congestion, cough, and increased falls x 1 week. Patient concerned for strep throat. Patient also reports generalized weakness to bilat lower legs. Also reports increased edema to bilat lower legs. Hx of CHF. Past medical history, appointments, medications, allergies reviewed. Previous Medical History PAST MEDICAL HISTORY Diagnosis Date ADD (attention deficit disorder) Alternating constipation and diarrhea 06/02/2022 Dr. Chantell Blas, [place] [facility] Anticoagulant medication declined by patient Anxiety and depression At risk for stroke Atrial fibrillation ([facility]) 08/30 Cellulitis of lower extremity 2019 Chronic fatigue syndrome Dizziness, nonspecific 09/07/2021 Falls frequently 09/07/2021 Fibromyalgia Folic acid deficiency GERD (gastroesophageal reflux disease) Hypothyroidism Insomnia Intractable back pain Mild intermittent asthma without complication 10/05/2021 Mixed incontinence 12/13/2023 Osteopenia Type 2 diabetes mellitus without complication, without long-term current use of insulin ([facility]) 04/21/2021 Previous Surgical History PAST SURGICAL HISTORY Procedure Laterality Date APPENDECTOMY 1973 COLONOSCOPY SCREENING 08/2020, 08/2020 COLONOSCOPY SCREENING 08/07/2023 Dr. Blas. Recheck 5 years. No biopsy. EXTRACTION ERUPTED TOOTH/EXR 1972 HYSTERECTOMY HX 1989 Endometriosis. Adenomyosis. Total hysterectomy, BSO LAPAROSCOPIC CHOLECYSTECTOMY 1997 LIGATE FALLOPIAN TUBE Bilateral 1988 SHOULDER SURGERY HX Right 1984 right shoulder X 3. 1978,1980,1983 TONSILLECTOMY HX 1972 Family History FAMILY HISTORY Problem Relation Age of Onset Depression Mother Depression Father Anxiety disorder Father Patient Allergies ALLERGIES Allergen Reactions Sulfa (Sulfonamide * Anaphylaxis Compazine [Prochlor* Mental Status Change Lyrica [Pregabalin] Mental Status Change Metformin GI Upset Severe stomach pain [place] Anaphylaxis Toradol [Ketorolac] Other: See Comments Causes pain Current Medications Current Outpatient Medications on File Prior to Visit Medication Sig acetaminophen (TYLENOL) 325 mg tablet 650 mg every 4 hours. As needed for elevated temperature DO NOT EXCEED 4GM in 24 HOURS aluminum-magnesium hydroxide-simethicone (MAALOX,MYLANTA,MAG-AL PLUS) 200-200-20 mg/5 mL suspensionTake 30 mL by mouth every 4 hours as needed. empagliflozin (JARDIANCE) 25 mg tablet Take 25 mg by mouth daily with breakfast. linaclotide (LINZESS) 145 mcg capsule Take 145 mcg by mouth daily at 6 am. magnesium oxide 400 mg magnesium tab Take 1 tablet by mouth at bedtime as needed (for leg cramps). magnesium hydroxide (MILK OF MAGNESIA) 400 mg/5 mL suspension Take 30 mL by mouth once daily as needed. Diaper,Brief, Adult,Disposable Size Medium, 1-2 times a day furosemide (LASIX) 40 mg tablet Take 1 tablet by mouth once daily as needed. apixaban (ELIQUIS) 5 mg tab(s) Take 1 tablet by mouth two times a day. [facility] albuterol HFA (PROVENTIL HFA, VENTOLIN HFA) 90 mcg/actuation inhaler Inhale as instructed. levomefolate (DEPLIN) 7.5 mg capsule Take 2 capsules by mouth once daily. potassium chloride ER (KLOR-CON) 20 mEq tablet Take 1 tablet by mouth once daily. rosuvastatin (CRESTOR) 10 mg tablet Take 1 tablet by mouth daily at bedtime. gabapentin (NEURONTIN) 300 mg capsule Take 2 capsules by mouth three times a day AND 3 capsules daily at bedtime. Do all this for 90 days. PREDATOR CONTROL TRAPPER THYROID 60 mg tablet Take 1 tablet by mouth once daily. esomeprazole (NEXIUM) 20 mg capsule Take 20 mg by mouth daily at 6 am. metoprolol tartrate, short acting, (LOPRESSOR) 25 mg tablet Take 0.5 tablets by mouth two times a day. montelukast (SINGULAIR) 10 mg tablet Take 1 tablet by mouth daily at bedtime. tamsulosin (FLOMAX) 0.4 mg Take 1 capsule by mouth once daily. blood sugar diagnostic (BLOOD GLUCOSE TEST) test strip Test blood sugar(s) 1 times daily. Dx: Type 2 DM - Uncontrolled E11.65 Insulin: No dicyclomine (BENTYL) 20 mg tablet Take 1 tablet by mouth twice daily as needed. From [facility]. Cholecalciferol, Vitamin D3, 125 mcg (5,000 unit) cap Take by mouth. traZODone (DESYREL) 150 mg tablet Take 2 [...] by mouth at bedtime as needed (nausea). Tyaoafg-Yfkkotqrbvsti-Ozywsppk (EXCEDRIN MIGRAINE) 250-250-65 mg per tablet Take 1 tablet by mouth every 6 hours as needed for pain. ascorbic acid, vitamin C, (VITAMIN C) 500 mg tablet Take 1 tablet by mouth once daily. No current facility-administered medications on file prior to visit. Social History Social History Tobacco Use Smoking status: Former Current packs/day: 0.00 Average packs/day: 2.0 packs/day for 12.0 years (24.1 ttl pk-yrs) Types: Cigarettes Start date: 1977 Quit date: 12/10/1988 Years since quittin.2 Smokeless tobacco: Never Tobacco comments: from age 27 Substance Use Topics Alcohol use: Not Currently Comment: none since 1995 Drug use: Not Currently Types: Marijuana Comment: none since 1969 Review of Symptoms REVIEW OF SYSTEMS SEE HPI EXAM: BP 108/66 Pulse (!) 59 Temp 36.7 C (98 F) Resp 14 Wt 73 kg (161 lb) BMI 28.89 kg/m General Appearance: Well appearing, alert, in no acute distress, well-hydrated, well nourished.. Lungs: Lungs clear to auscultation. No wheezing, rhonchi, rales.. Heart: RRR without murmur, gallop, or rubs. No ectopy. Extremities: Pulses: 2+, Edema: 1+ pitting edema to bilateral lower legs. Peripheral Pulses: Normal. Health Maintenance List Colorectal Cancer Screening due on 10/19/2021 Mammogram Screening due on 09/29/2022 Influenza Vaccine(1) due on 02/11/2024 Shingrix Vaccine(2 of 2) due on 02/23/2024 Dilated Retinal Exam due on 03/07/2024 HbA1C due on 07/18/2024 Urine Albumin:Creatinine Ratio due on 01/15/2025 LDL Cholesterol due on 01/15/2025 Diabetic Foot Exam due on 01/15/2025 Annual PCP Team Chronic Disease Visit due on 01/15/2025 DTaP,Tdap,Td Vaccine(2 - Td or Tdap) due on 10/14/2031 Bone Density Screening Completed Advance Directive Discussion Completed RSV Vaccine Completed Hepatitis C Screening Completed Covid-19 Vaccine Completed Pneumococcal Vaccine: 65+ Completed Spirometry Discontinued ASSESSMENT/PLAN: 1. Sore throat - ICD9: 462, ICD10: J02.9 (primary diagnosis) - RAPID STREP TEST B/O - COVID & INFLUENZA A/B & RSV PCR, ROUTINE 2. Generalized weakness - ICD9: 780.79, ICD10: R53.1 - UA DIP, URINE (POC) 3. Frequent falls - ICD9: V15.88, ICD10: R29.6 - UA DIP, URINE (POC) 4. SOB (shortness of breath) - ICD9: 786.05, ICD10: R06.02 - XR CHEST 2V FRONTAL/LAT 5. [place] (dyspnea on exertion) - ICD9: 786.09, ICD10: R06.09 - XR CHEST 2V FRONTAL/LAT - NT PRO BNP Honey Holguin APRN.TECHNICAL SERVICES COORDINATOR documented in this encounterMer[facility]24 Instructions* Patient Instructions* Dajuan Eric MD - 01/16/2024 10:59 AM EDT BLOOD WORK TODAY. documented in this encounterMercy [facility]08-06-2024 History of Present illness Narrative* Dajuan Eric MD - 01/16/2024 10:44 AM EDT This note was created using NoteWriter. Caitlin Maldonado is a 73 year old female was here for follow up. She was doing well at this time, and the move to [facility] has been good for her QOL. She reported occasional falls, but I do not recall any faxed reports of falls. She participated in activities in the [facility]. Review of Systems Constitutional: Negative for appetite change, fatigue, fever and unexpected weight change. HENT: Positive for congestion and sinus pressure. Negative for sore throat. Respiratory: Negative for cough and shortness of breath. Cardiovascular: Negative for chest pain, palpitations and leg swelling. Gastrointestinal: Negative for abdominal pain and constipation. Genitourinary: Positive for urgency. Negative for dysuria and flank pain. Musculoskeletal: Positive for back pain and gait problem. Neurological: Positive for numbness. Psychiatric/Behavioral: Negative. ACTIVE PROBLEM LIST Type 2 Diabetes Mellitus With Diabetic Neuropathy, Without Long-Term Current Use of Insulin ([facility]) Lumbar Radiculopathy Cervical Radiculopathy Dizziness, Nonspecific Falls Frequently Hypothyroidism Paf (Paroxysmal Atrial Fibrillation) ([facility]) Mixed Hyperlipidemia Chronic Diastolic Chf (Congestive Heart Failure) ([facility]) Mild Intermittent Asthma Without Complication Anxiety and Depression Alternating Constipation and Diarrhea Cognitive Decline Mixed Incontinence Social History Tobacco Use Smoking status: Former Packs/day: 2.00 Years: 12.00 Additional pack years: 0.00 Total pack years: 24.00 Types: Cigarettes Start date: 1977 Quit date: 12/10/1988 Years since quittin.1 Smokeless tobacco: Never Tobacco comments: from age 27 Substance Use Topics Alcohol use: Not Currently Comment: none since 1995 Drug use: Not Currently Types: Marijuana Comment: none since 1969 Current Outpatient Medications Medication Sig acetaminophen (TYLENOL) 325 mg tablet 650 mg every 4 hours. As needed for elevated temperature DO NOT EXCEED 4GM in 24 HOURS empagliflozin (JARDIANCE) 25 mg tablet Take 25 mg by mouth daily with breakfast. linaclotide (LINZESS) 145 mcg capsule Take 145 mcg by mouth daily at 6 am. Diaper,Brief, Adult,Disposable Size Medium, 1-2 times a day furosemide (LASIX) 40 mg tablet Take 1 tablet by mouth once daily as needed. apixaban (ELIQUIS) 5 mg tab(s) Take 1 tablet by mouth two times a day. [facility] albuterol HFA (PROVENTIL HFA, VENTOLIN HFA) 90 mcg/actuation inhaler Inhale as instructed. levomefolate (DEPLIN) 7.5 mg capsule Take 2 capsules by mouth once daily. potassium chloride ER (KLOR-CON) 20 mEq tablet Take 1 tablet by mouth once daily. rosuvastatin (CRESTOR) 10 mg tablet Take 1 tablet by mouth daily at bedtime. gabapentin (NEURONTIN) 300 mg capsule Take 2 capsules by mouth three times a day AND 3 capsules daily at bedtime. Do all this for 90 days. PREDATOR CONTROL TRAPPER THYROID 60 mg tablet Take 1 tablet by mouth once daily. esomeprazole (NEXIUM) 20 mg capsule Take 20 mg by mouth daily at 6 am. metoprolol tartrate, short acting, (LOPRESSOR) 25 mg tablet Take 0.5 tablets by mouth two times a day. montelukast (SINGULAIR) 10 mg tablet Take 1 tablet by mouth daily at bedtime. tamsulosin (FLOMAX) 0.4 mg Take 1 capsule by mouth once daily. blood sugar diagnostic (BLOOD GLUCOSE TEST) test strip Test blood sugar(s) 1 times daily. Dx: Type 2 DM - Uncontrolled E11.65 Insulin: No dicyclomine (BENTYL) 20 mg tablet Take 1 tablet by mouth twice daily as needed. From [facility]. Cholecalciferol, Vitamin D3, 125 mcg (5,000 unit) cap Take by mouth. traZODone (DESYREL) 150 mg tablet Take 2 [...] by mouth at bedtime as needed (nausea). Koigbsw-Pdzupoduncayp-Ztsqolcw (EXCEDRIN MIGRAINE) 250-250-65 mg per tablet Take 1 tablet by mouth every 6 hours as needed for pain. ascorbic acid, vitamin C, (VITAMIN C) 500 mg tablet Take 1 tablet by mouth once daily. aluminum-magnesium hydroxide-simethicone (MAALOX,MYLANTA,MAG-AL PLUS) 200-200-20 mg/5 mL suspensionTake 30 mL by mouth every 4 hours as needed. magnesium oxide 400 mg magnesium tab Take 1 tablet by mouth at bedtime as needed (for leg cramps). magnesium hydroxide (MILK OF MAGNESIA) 400 mg/5 mL suspension Take 30 mL by mouth once daily as needed. No current facility-administered medications for this visit. Objective BP 98/60 (BP Site: Left Arm, BP Position: Sitting, BP Cuff Size: Large Adult) Pulse 60 Temp 36.5 C (97.7 F) (Temporal) Resp 12 Ht 159 cm (5' 2.6) Wt 72.6 kg (160 lb 0.9 oz) BMI 28.72 kg/m Physical Exam HENT: Head: Normocephalic. Nose: No mucosal edema, congestion or rhinorrhea. Right Turbinates: Swollen and pale. Left Turbinates: Swollen and pale. Right Sinus: No maxillary sinus tenderness or frontal sinus tenderness. Left Sinus: No maxillary sinus tenderness or frontal sinus tenderness. Mouth/Throat: Pharynx: Oropharynx is clear. Cardiovascular: Rate and Rhythm: Normal rate and regular rhythm. Heart sounds: No murmur heard. No gallop. Pulmonary: Breath sounds: Normal breath sounds. Abdominal: Tenderness: There is no abdominal tenderness. Musculoskeletal: Right lower le+ Pitting Edema present. Left lower le+ Pitting Edema present. Neurological: General: No focal deficit present. Mental Status: She is alert. Gait: Gait abnormal. Comments: Ambulatory with rollator walker. Psychiatric: Mood and Affect: Mood normal. Behavior: Behavior normal. Feet:Shoes and socks removed, No deformities, ulcers, calluses, normal distal pulses, not sensitiveto monofilament in toes and forefeet, and nails notable for Hypertrophic Assessment and Plan 1. Medicare annual wellness visit, subsequent - ICD9: V70.0, ICD10: Z00.00 (primary diagnosis) - See wellness note. 2. Type 2 diabetes mellitus with diabetic neuropathy, without long-term current use of insulin (HCC) - ICD9: 250.60, 357.2, ICD10: E11.40 - Control undetermined, due for labs - Continue current medications - COMPREHENSIVE METABOLIC PANEL - HEMOGLOBIN A1C - ALBUMIN/CREATININE RATIO, URINE 3. Hypothyroidism, unspecified type - ICD9: 244.9, ICD10: E03.9 - continue current dose of Synthroid. - THYROID STIMULATING HORMONE 4. Mixed hyperlipidemia - ICD9: 272.2, ICD10: E78.2 - Control undetermined, due for labs - Continue current medications - LIPID PANEL, NONFASTING 5. Chronic diastolic CHF (congestive heart failure) (HCC) - ICD9: 428.32, 428.0, ICD10: I50.32 - Compensated. - Continue current medications 6. Mild intermittent asthma without complication - ICD9: 493.90, ICD10: J45.20 - Mild intermittent asthma stable - Continue current medications 7. Need for COVID-19 vaccine - ICD9: V04.89, ICD10: Z23 - [email or web address] COVID-19 VACCINE ( SEASON) AGE 12+ YR 8. Osteopenia, unspecified location - ICD9: 733.90, ICD10: M85.80 - Reviewed the need for Calcium and Vitamin D supplements and weight bearing exercise as tolerated Dajuan Eric MD * Dajuan Eric MD - 01/16/2024 10:26 AM EDT Images from the original note were not included. Ember Maldonado is a 73 year old female here for a Medicare wellness visit. Medicare Health Risk Assessment General Health Good Exercise: Minutes/Day 10 min Exercise: Days/Week 7 days Alcohol: Daily Use Never Alcohol: Drinks/Day Patient does not drink Alcohol: 6 or more drinks Never Feel off balance Yes Concerns: Teeth/Dentures No Concerns: Sexual function No Troubled by feelings Anxious; Irritable Frequency: Eating healthy diet More than half the days ADLs requiring help Grocery shopping; Cooking; Housework; Managing urine leakage; Taking medications; Driving; Handling finances Safety precautions in home/vehicle Yes Smoke, vape, chews tobacco No Difficulty hearing No Difficulty seeing No Current Providers Specialists: I have reviewed specialist-related care of the patient in the medical record. Current care team: Patient Care Team: Dajuan Eric MD as PCP - General (Internal Medicine) Outside specialists seen: Cardiology- Dr. Powers [facility]- Dr. Scotty Jackson. Environmental Safety Specialist- Dr. Rafi Arshad - Dr. Soto Friend Pain management- Dr. Carter Medical/Family history review Reviewed and updated problem list, medical/surgical/family/social history, medications, and allergies. Opioid use review Opioid Medications (last 90 days) 01/16/2024 Opioid Medications hydrocodone/acetaminophen 1 tablet BID ORAL (5-325 mg tab) No sig buprenorphine 1 Patch 1/WK Per Dr. Carter TRANSDERM. (5 mcg/hour ptwk) No sig Details Medication marked as long-term Patient-reported medication Prescribed No opioid use on file in the last 90 days Does patient have risk factors for opioid abuse? No Pain overview Current pain concerns and treatment plan reviewed. Patient under the care of a specialist. Anxiety/Depression screening Recommendation: continuing current treatment plan Cognitive screening Cognitive screening reviewed and No further action needed (score 3-5). Functional Observation Was the patient's Timed Up & Go test unsteady or ? 12 seconds? No Advance Care Planning Patient did not wish or was not able to name a surrogate decision maker or provide an advance care plan Measurements BP 98/60 (BP Site: Left Arm, BP Position: Sitting, BP Cuff Size: Large Adult) Pulse 60 Temp 36.5 C (97.7 F) (Temporal) Resp 12 Ht 159 cm (5' 2.6) Wt 72.6 kg (160 lb 0.9 oz) BMI 28.72 kg/m Vision Screening: Follows with optometry/ophthalmology Right: 20/50 Left: 20/ 40 Both: 20/50 Assessment/Plan Medicare annual wellness visit, subsequent (Z00.00) - Counseled on healthy diet and regular exercise - Fall avoidance information provided - Personalized prevention plan provided - Vaccine recommended: Covid booster Shingrix administered at the [facility] x 1. documented in this encounterMer[facility]07-[facility]-2024 Telephone encounter Note * Telephone Encounter - Clive Johnson MA - 12/13/2023 2:22 PM EDT Faxed to number provided as requested. [facility] Miscellaneous Notes* Telephone Encounter - Clive Johnson MA - 12/13/2023 2:22 PM EDT Faxed to number provided as requested. * Telephone Encounter - Bernadette Lora LPN - 12/13/2023 1:27 PM EDT Patient uses 1-2 Depends daily. Bernadette Lora LPN * Telephone Encounter - Kayce Nix APRN.CNP - 12/13/2023 1:19 PM EDT I need to know approximately how many she uses a day Kayce Nix APRN.TECHNICAL SERVICES COORDINATOR * Telephone Encounter - Kenyatta Rolle RN - 12/13/2023 10:44 AM EDT Patient calls and states the assisted living she is living in needs orders for Shingrix vaccine as well as depends size medium. Patient asking if orders can be faxed to [facility] [phone]. Please review and advise, Kenyatta Rolle RN documented in this encounterMercy [facility]07-03-2024 Telephone encounter Note * Telephone Encounter - Bernadette Lora LPN - 12/13/2023 1:27 PM EDT Patient uses 1-2 Depends daily. Bernadette Lora LPN [facility]07-03-[facility] Telephone encounter Note* Telephone Encounter - Kayce Nix APRN.CNP - 12/13/2023 1:19 PM EDT I need to know approximately how many she uses a day Kayce Nix APRN.TECHNICAL SERVICES COORDINATOR [facility]-03-[facility] Telephone encounter Note* Telephone Encounter - Kenyatta Rolle RN - 12/13/2023 10:44 AM EDT Patient calls and states the assisted living she is living in needs orders for Shingrix vaccine as well as depends size medium. Patient asking if orders can be faxed to [facility] [phone]. Please review and advise, Kenyatta Rolle RN [facility]04-19-2024 Miscellaneous Notes* Telephone Encounter - Summer Hood LPN - 09/29/2023 11:48 AM EDT this has been faxed already on 09/22/23. It was faxed again today. Pt notified. * Telephone Encounter - Kenyatta Rolle RN - 09/28/2023 10:59 AM EDT Patient called and states that she had form to be completed at appointment last Monday. Patient asking if form was faxed to [facility]? Patient asking if it wasn't if it could be faxed to [phone]? Please review and advise, Kenyatta Rolle RN documented in this encounterMercy Health [facility] Hospital04-12-2024 History of Present illness Narrative* Dajuan Eric MD - 09/22/2023 11:52 AM EDT This note was created using Presstlerriter. Subjective Patient presents with: Physical: Assisted living admission forms. Dental Problem Ember Maldonado is a 73 year old female was here for above. She's also had increased pain and swelling ofher upper gums and dental caries. Review of Systems Constitutional: Positive for fatigue. Negative for fever. HENT: Positive for dental problem. Eyes: Negative for visual disturbance. Respiratory: Negative for cough, shortness of breath and wheezing. Cardiovascular: Negative for chest pain, palpitations and leg swelling. Gastrointestinal: Positive for constipation. Negative for abdominal pain and diarrhea. Genitourinary: Positive for urgency. Negative for dysuria. Musculoskeletal: Positive for arthralgias, back pain, gait problem and neck pain. Neurological: Positive for weakness. Negative for dizziness and headaches. Psychiatric/Behavioral: Positive for dysphoric mood. The patient is nervous/anxious. ACTIVE PROBLEM LIST Type 2 Diabetes Mellitus With Diabetic Neuropathy, Without Long-Term Current Use of Insulin ([facility]) Lumbar Radiculopathy Cervical Radiculopathy Dizziness, Nonspecific Falls Frequently Hypothyroidism Paf (Paroxysmal Atrial Fibrillation) ([facility]) Mixed Hyperlipidemia Chronic Diastolic Chf (Congestive Heart Failure) ([facility]) Mild Intermittent Asthma Without Complication Anxiety and Depression Alternating Constipation and Diarrhea Cognitive Decline PAST MEDICAL HISTORY Diagnosis Date ADD (attention deficit disorder) Alternating constipation and diarrhea 06/02/2022 Dr. Chantell Blas, [facility] Anticoagulant medication declined by patient Anxiety and depression At risk for stroke Atrial fibrillation ([facility]) 08/30 Cellulitis of lower extremity 2019 Chronic fatigue syndrome Dizziness, nonspecific 09/07/2021 Falls frequently 09/07/2021 Fibromyalgia Folic acid deficiency GERD (gastroesophageal reflux disease) Hypothyroidism Insomnia Intractable back pain Mild intermittent asthma without complication 10/05/2021 Osteopenia Type 2 diabetes mellitus without complication, without long-term current use of insulin ([facility]) 04/21/2021 PAST SURGICAL HISTORY Procedure Laterality Date APPENDECTOMY 1973 COLONOSCOPY SCREENING 08/2020, 08/2020 COLONOSCOPY SCREENING 08/07/2023 Dr. Blas. Recheck 5 years. No biopsy. EXTRACTION ERUPTED TOOTH/EXR 1973 HYSTERECTOMY HX 1989 Endometriosis. Adenomyosis. Total hysterectomy, BSO LAPAROSCOPIC CHOLECYSTECTOMY 1997 LIGATE FALLOPIAN TUBE Bilateral 1988 SHOULDER SURGERY HX Right 1983 right shoulder X 3. 1978,1980,1983 TONSILLECTOMY HX 1972 Social History Tobacco Use Smoking status: Former Packs/day: 2.00 Years: 12.00 Additional pack years: 0.00 Total pack years: 24.00 Types: Cigarettes Start date: 1977 Quit date: 12/10/1988 Years since quittin.8 Smokeless tobacco: Never Tobacco comments: from age 27 Substance Use Topics Alcohol use: Not Currently Comment: none since 1995 Drug use: Not Currently Types: Marijuana Comment: none since 1969 ALLERGIES Allergen Reactions Sulfa (Sulfonamide * Anaphylaxis Compazine [Prochlor* Mental Status Change Lyrica [Pregabalin] Mental Status Change Metformin GI Upset Severe stomach pain [place] Anaphylaxis Toradol [Ketorolac] Other: See Comments Causes pain Current Outpatient Medications Medication Sig apixaban (ELIQUIS) 5 mg tab(s) Take 1 tablet by mouth two times a day. [facility] albuterol HFA (PROVENTIL HFA, VENTOLIN HFA) 90 mcg/actuation inhaler Inhale as instructed. levomefolate (DEPLIN) 7.5 mg capsule Take 2 capsules by mouth once daily. potassium chloride ER (KLOR-CON) 20 mEq tablet Take 1 tablet by mouth once daily. furosemide (LASIX) 40 mg tablet Take 1 tablet by mouth once daily as needed. rosuvastatin (CRESTOR) 10 mg tablet Take 1 tablet by mouth daily at bedtime. gabapentin (NEURONTIN) 300 mg capsule Take 2 capsules by mouth three times a day AND 3 capsules daily at bedtime. Do all this for 90 days. PREDATOR CONTROL TRAPPER THYROID 60 mg tablet Take 1 tablet by mouth once daily. esomeprazole (NEXIUM) 20 mg capsule Take 20 mg by mouth daily at 6 am. metoprolol tartrate, short acting, (LOPRESSOR) 25 mg tablet Take 0.5 tablets by mouth two times a day. montelukast (SINGULAIR) 10 mg tablet Take 1 tablet by mouth daily at bedtime. tamsulosin (FLOMAX) 0.4 mg Take 1 capsule by mouth once daily. blood sugar diagnostic (BLOOD GLUCOSE TEST) test strip Test blood sugar(s) 1 times daily. Dx: Type 2 DM - Uncontrolled E11.65 Insulin: No dicyclomine (BENTYL) 20 mg tablet Take 1 tablet by mouth twice daily as needed. From [facility]. Cholecalciferol, Vitamin D3, 125 mcg (5,000 unit) cap Take by mouth. traZODone (DESYREL) 150 mg tablet Take 2 [...] by mouth at bedtime as needed (nausea). Wmjjodi-Xjgznymssgqyd-Vwynzgso (EXCEDRIN MIGRAINE) 250-250-65 mg per tablet Take 1 tablet by mouth every 6 hours as needed for pain. ascorbic acid, vitamin C, (VITAMIN C) 500 mg tablet Take 1 tablet by mouth once daily. selenium 200 mcg tablet Take 1 tablet by mouth once daily. No current facility-administered medications for this visit. Objective Blood Pressure 104/70 Pulse (Abnormal) 56 Temperature 36.3 C (97.4 F) Respiration 16 Pgzjcq11.1 kg (148 lb) Oxygen Saturation 94% Body Mass Index 25.90 kg/m Physical Exam Constitutional: General: She is not in acute distress. Appearance: She is not ill-appearing. HENT: Head: Normocephalic. Right Ear: External ear normal. Left Ear: External ear normal. Nose: Nose normal. Mouth/Throat: Comments: Gingival swelling upper mandible. Poor dentition. Cardiovascular: Rate and Rhythm: Regular rhythm. Bradycardia present. Heart sounds: No murmur heard. No gallop. Pulmonary: Effort: No respiratory distress. Breath sounds: No wheezing or rales. Abdominal: General: There is no distension. Palpations: Abdomen is soft. Tenderness: There is no abdominal tenderness. Musculoskeletal: Right lower leg: No edema. Left lower leg: No edema. Neurological: General: No focal deficit present. Mental Status: She is alert. Mental status is at baseline. Gait: Gait abnormal. Comments: Ambulatory with rollator walker. Psychiatric: Attention and Perception: Attention normal. Mood and Affect: Mood normal. Behavior: Behavior normal. Immunization History Administered Date(s) Administered COVID-19 original vaccine, booster dose, monovalent (MODERNA) 09/24/2020 10/22/2020 COVID-19 original vaccine, full dose, monovalent (MODERNA) 05/19/2021 COVID-19 vaccine, age 12+ yr, 2022- season (MODERNA) 04/13/2023 COVID-19 vaccine, age 12+ yr, bivalent (MODERNA) 03/09/2022 hepatitis B (HepB) vaccine, 3-dose series, age 20+ yr (ENGERIX-B, RECOMBIVAX HB) 02/04/1993 03/04/1993 07/30/1993 influenza (HD-IIV4) vaccine, age 65+ yr, high dose, quadrivalent, PF (FLUZONE HIGH-DOSE) 04/06/2022 04/21/2023 pneumococcal conjugate (PCV20) vaccine, 20 valent (PREVNAR 20) 04/06/2022 pneumococcal polysaccharide (PPV23) vaccine, 23 valent (PNEUMOVAX 23) 05/17/2000 respiratory syncytial virus (RSV) vaccine, bivalent (ABRYSVO) 05/18/2023 tetanus diphtheria (Td) vaccine, adult, unspecified formulation 03/12/1992 08/28/2001 tetanus diphtheria pertussis (Tdap) vaccine, age 7+ yr (ADACEL, BOOSTRIX) 10/13/2021 Assessment and Plan 1. Cognitive decline - ICD9: 294.9, ICD10: R41.89 (primary diagnosis) Form for assisted living signed. This note will be attached. 2. Falls frequently - ICD9: V15.88, ICD10: R29.6 Fall precautions. 3. Chronic diastolic CHF (congestive heart failure) (HCC) - ICD9: 428.32, 428.0, ICD10: I50.32 Stable. - FUROSEMIDE 40 MG TABLET 4. Type 2 diabetes mellitus with diabetic neuropathy, without long-term current use of insulin (HCC) - ICD9: 250.60, 357.2, ICD10: E11.40 - Controlled - Continue current medications 5. Dental infection - ICD9: 522.4, ICD10: K04.7 - See dentist. Discussed medication dosage, usage, goals of therapy, and side effects. - AMOXICILLIN 875 MG-POTASSIUM CLAVULANATE 125 MG TABLET Dajuan Eric MD documented [facility] Miscellaneous Notes* Telephone Encounter - Dana Abrams RN - 09/18/2023 12:42 PM EDT Pt called and is notified of providers message and instructions. Pt voices understanding. Dana Abrams RN * Telephone Encounter - Dajuan Eric MD - 09/18/2023 10:50 AM EDT CBC ordered. She can do this if she is still not better after seeing dentist. * Telephone Encounter - Liliana Leger RN - 09/18/2023 10:17 AM EDT Pt returned call and is notified of lab results. Pt is confused as she states she came in to see Dr. Eric for a sore throat this past Monday and he told her that he was going to check her white blood cell count to see if she had any infection going on. But she notes that wasn't ordered. Pt states that on Monday, she had some swelling of her upper gum in the front. It was so painful that she took her fingernails and scraped the area open. States she squeezed and squeezed the area until she got a bunch of black stuff out. Then states it bled and it took awhile before she got the bleeding to stop. Encouraged pt to follow up with a dentist. Pt denies fever over 100 although states hertemp is normally 97.4 and she was running 99s. Pt also still c/o sore throat. Offered appt today but she states she has a follow up with Dr. Eric on Monday and will go to the dentist or EC as needed prior to that. * Telephone Encounter - Anne Chavez LPN - 09/18/2023 8:02 AM EDT Left a message for pt to call the office and ask to speak to a nurse. Anne Chaevz LPN * Telephone Encounter - Anne Chavez LPN - 09/18/2023 8:01 AM EDT ----- Message from Dajuan Eric MD sent at 09/16/2023 11:02 AM EDT ----- Potassium normal. Diabetes controlled. documented in this encounterMer[facility]04-05-2024 History of Present illness Narrative* Dajuan Eric MD - 09/15/2023 10:01 AM EDT This note was created using Presstlerriter. Subjective Patient presents with: Acute Visit: Started on Monday with sore throat, cough, low grade temp; feeling better now except for headache and nausea Recheck: 3 month follow up Ember Maldonado is a 73 year old female. She was on the tail end of a viral upper respiratory infection that started Monday. She did not seek medical attention was much better. She had hypotension issues, so I stopped verapamil prescribed here, and her steak sauce maker stopped verapamil SR. Furosemide was changed to once daily prn edema. Her BP was now normal. PAF was controlled. Not listed was that she agreed to anticoagulation, and was now on apixiban. Diabetes was reportedly controlled. She had colonoscopy in July negative for polyps, positive for diverticulosis, and hemorrhoids. She was also found to have an anal fissure treated with botulinum toxin injection. She was increasingly finding it difficult to care for herself at home. She is working with her grain roaster to find an assisted living facility. Medicare Health Risk Assessment ADLs requiring help Grocery shopping; Taking medications; Cooking; Housework; Driving; Dressing Review of Systems Constitutional: Negative for chills, fatigue and fever. HENT: Negative for congestion, postnasal drip, sinus pain and sore throat. Cardiovascular: Negative for chest pain, palpitations and leg swelling. Gastrointestinal: Negative for abdominal pain, blood in stool, constipation and diarrhea. Musculoskeletal: Positive for gait problem. Neurological: Negative for dizziness, syncope and headaches. ACTIVE PROBLEM LIST Type 2 Diabetes Mellitus With Diabetic Neuropathy, Without Long-Term Current Use of Insulin ([facility]) Lumbar Radiculopathy Cervical Radiculopathy Dizziness, Nonspecific Falls Frequently Hypothyroidism Paf (Paroxysmal Atrial Fibrillation) ([facility]) Mixed Hyperlipidemia Chronic Diastolic Chf (Congestive Heart Failure) ([facility]) Mild Intermittent Asthma Without Complication Anxiety and Depression At Risk for Stroke Anticoagulant Medication Declined By Patient Alternating Constipation and Diarrhea Cognitive Decline PAST SURGICAL HISTORY Procedure Laterality Date APPENDECTOMY 1972 COLONOSCOPY SCREENING 08/2020, 08/2020 COLONOSCOPY SCREENING 08/07/2023 Dr. Blas. Recheck 5 years. No biopsy. EXTRACTION ERUPTED TOOTH/EXR 1972 HYSTERECTOMY HX 1989 Endometriosis. Adenomyosis. Total hysterectomy, BSO LAPAROSCOPIC CHOLECYSTECTOMY 1997 LIGATE FALLOPIAN TUBE Bilateral 1988 SHOULDER SURGERY HX Right 1984 right shoulder X 3. 1978,1980,1983 TONSILLECTOMY HX 1972 Social History Tobacco Use Smoking status: Former Packs/day: 2.00 Years: 12.00 Additional pack years: 0.00 Total pack years: 24.00 Types: Cigarettes Start date: 1977 Quit date: 12/10/1988 Years since quittin.7 Smokeless tobacco: Never Tobacco comments: from age 27 Substance Use Topics Alcohol use: Not Currently Comment: none since 1995 Drug use: Not Currently Types: Marijuana Comment: none since 1969 Current Outpatient Medications Medication Sig albuterol HFA (PROVENTIL HFA, VENTOLIN HFA) 90 mcg/actuation inhaler Inhale as instructed. rosuvastatin (CRESTOR) 10 mg tablet Take 1 tablet by mouth daily at bedtime. gabapentin (NEURONTIN) 300 mg capsule Take 2 capsules by mouth three times a day AND 3 capsules daily at bedtime. Do all this for 90 days. PREDATOR CONTROL TRAPPER THYROID 60 mg tablet Take 1 tablet by mouth once daily. esomeprazole (NEXIUM) 20 mg capsule Take 20 mg by mouth daily at 6 am. metoprolol tartrate, short acting, (LOPRESSOR) 25 mg tablet Take 0.5 tablets by mouth two times a day. montelukast (SINGULAIR) 10 mg tablet Take 1 tablet by mouth daily at bedtime. tamsulosin (FLOMAX) 0.4 mg Take 1 capsule by mouth once daily. blood sugar diagnostic (BLOOD GLUCOSE TEST) test strip Test blood sugar(s) 1 times daily. Dx: Type 2 DM - Uncontrolled E11.65 Insulin: No dicyclomine (BENTYL) 20 mg tablet Take 1 tablet by mouth twice daily as needed. From [facility]. Cholecalciferol, Vitamin D3, 125 mcg (5,000 unit) cap Take by mouth. traZODone (DESYREL) 150 mg tablet Take 2 [...] by mouth at bedtime as needed (nausea). Vdjnxsj-Quahmgblbhzvm-Mkqdiclm (EXCEDRIN MIGRAINE) 250-250-65 mg per tablet Take 1 tablet by mouth every 6 hours as needed for pain. ascorbic acid, vitamin C, (VITAMIN C) 500 mg tablet Take 1 tablet by mouth once daily. selenium 200 mcg tablet Take 1 tablet by mouth once daily. apixaban (ELIQUIS) 5 mg tab(s) Take 1 tablet by mouth two times a day. [facility] levomefolate (DEPLIN) 7.5 mg capsule Take 2 capsules by mouth once daily. potassium chloride ER (KLOR-CON) 20 mEq tablet Take 1 tablet by mouth once daily. furosemide (LASIX) 40 mg tablet Take 1 tablet by mouth once daily as needed. No current facility-administered medications for this visit. Objective Blood Pressure 128/78 Pulse (Abnormal) 57 Temperature 36.3 C (97.3 F) Respiration 16 [place]68.1 kg (148 lb) Oxygen Saturation 92% Body Mass Index 25.90 kg/m Physical Exam Constitutional: General: She is not in acute distress. Appearance: She is not ill-appearing. HENT: Head: Normocephalic. Nose: No congestion or rhinorrhea. Mouth/Throat: Mouth: Mucous membranes are moist. Pharynx: Oropharynx is clear. Eyes: Conjunctiva/sclera: Conjunctivae normal. Cardiovascular: Rate and Rhythm: Regular rhythm. Bradycardia present. Heart sounds: No murmur heard. No gallop. Pulmonary: Effort: No respiratory distress. Breath sounds: No wheezing or rales. Abdominal: General: There is no distension. Palpations: Abdomen is soft. Tenderness: There is no abdominal tenderness. Musculoskeletal: Right lower leg: No edema. Left lower leg: No edema. Neurological: General: No focal deficit present. Mental Status: She is alert and oriented to person, place, and time. Gait: Gait abnormal. Comments: Using a walker. Psychiatric: Mood and Affect: Mood normal. Behavior: Behavior normal. ASSESSMENT/PLAN: 1. Cognitive decline - ICD9: 294.9, ICD10: R41.89 (primary diagnosis) - She was looking for assisted living. Home Health assisting. 2. Falls frequently - ICD9: V15.88, ICD10: R29.6 - As above. Fall precautions. 3. Dizziness, nonspecific - ICD9: 780.4, ICD10: R42 - Improved. 4. Lumbar radiculopathy - ICD9: 724.4, ICD10: M54.16 Chronic low back pain - Continue per pain management. 5. Chronic diastolic CHF (congestive heart failure) (HCC) - ICD9: 428.32, 428.0, ICD10: I50.32 - HFpEF 50+ - Continue current medications 6. PAF (paroxysmal atrial fibrillation) ([facility]) - ICD9: 427.31, ICD10: I48.0 - DOAC prescribed by her steak sauce maker. - APIXABAN 5 MG TABLET 7. Type 2 diabetes mellitus with diabetic neuropathy, without long-term current use of insulin ([facility]) - ICD9: 250.60, 357.2, ICD10: E11.40 - Control TBD. No current medication. - BASIC METABOLIC PNL - HGB A1C Dajuan Eric MD documented in this encounterMer[facility]02-16-2024 Miscellaneous Notes* Telephone Encounter - Beryl Herrera LPN - 07/28/2023 10:07 AM EST Patient's request for medication is as follows: Requested Prescriptions Pending Prescriptions Disp Refills potassium chloride ER (KLOR-CON) 20 mEq tablet 90 tablet 0 Sig: Take 1 tablet by mouth once daily. Last seen 07/18/2022. Follow up appointment for 01/16/2023 Jackie was canceled. Prescription(s) as above. Please process accordingly. Beryl Herrera LPN documented in this encounterMer[facility]12-21-2023 Discharge summary Author [facility] June 01, 2023 3:23pm Note Date/Time June 01, 2023 11:16am [facility] Medical Records Department [address] [place] [id number] Emergency Department Summary 06/01/23 MR#: [id number] Acct: [id number] Name: EMBER MALDONADO Rep #:[id number] : 1950 73 From: [facility] PCP: Dr. Dajuan Eric MD Status:R EG ER Location: ED HPI History of Present Illness Chief Complaint: Upper Extremity Injury Informant: patient Narrative Narrative: Patient is a 73-year-old female presenting for evaluation of unknown right hand injury with subsequent bruising and pain. It occurred sometime yesterday. She was on her way here from her cardiology office when she started feel dizzy in the elevator. She states that is consistent for when she goes in A-fib RVR. She was noted to be in A-fib with RVR. She did not take her medicines like she normally does at 9 AM this morning. Patient notes that she is not on any blood thinners because she has chronic pain and receives injections. Has been compliant with her medications. Is not sure how she actually injured her hand but think she might of hit on something. She has more pain in her wrist area but has bruising over the dorsal aspect of her right hand in the center. She does last night she felt a crunching in her hands and had to use her left hand to eat. She also notes that she has been coughing more recently. She denies any fever or chills. No significant nasal congestion. No she was exposed to COVID within the last week through a friend. Denies feeling short of breath. States she does have obstructive sleep apnea and wears CPAP at night with oxygenbleed in. She states that she does not normally wear oxygen during the day but last time she had a cold she did have to wear some supplemental oxygen during the day until she got better. Denies any abdominal pain. No other complaints or concerns at this time. [facility] Medical History Acute sinusitis, unspecified ADD (attention deficit disorder) Arthritis Asthma Atrial fibrillation Chronic fatigue syndrome Essential hypertension Fibromyalgia Folic acid deficiency GERD (gastroesophageal reflux disease) Hypothyroidism IBS (irritable bowel syndrome) Insomnia Intractable back pain Osteopenia Paroxysmal atrial fibrillation SOB (shortness of breath) Type 2 diabetes mellitus without complication, with long-term current use of insulin Home Medications levomefolate calcium 7.5 mg tablet (L-Methylfolate) 7.5 mg PO DAILY 01/13/22 [History Last Taken Unknown] montelukast 10 mg tablet 10 mg PO QPM 01/13/22 [History Last Taken Unknown] potassium chloride 20 mEq tablet,extended release 20 meq PO DAILY 01/13/22 [History Last Taken Unknown] selenium 200 mcg tablet 200 mcg PO DAILY 01/13/22 [History Last Taken Unknown] spironolactone 25 mg tablet 25 mg PO DAILY 01/13/22 [History Last Taken Unknown] tamsulosin 0.4 mg capsule 0.4 mg PO DAILY 01/13/22 [History Last Taken Unknown] thyroid (pork) 60 mg tablet (PREDATOR CONTROL TRAPPER Thyroid) 60 mg PO DAILY 01/13/22 [History Last Taken Unknown] ascorbate calcium (vitamin C) 500 mg tablet 500 mg PO DAILY 09/15/22 [History Last Taken Unknown] bxhxigk-lnddhpdhhgnec-qbslxpwu 250 mg-250 mg-65 mg tablet (Excedrin Migraine) 1 tab PO Q6H PRN 09/15/22 [History Last Taken Unknown] buprenorphine 5 mcg/hour weekly transdermal patch 1 patch transdermal QWEEK 09/15/22 [History Last Taken Unknown] gabapentin 300 mg capsule 600 mg PO TID 09/15/22 [History Last Taken Unknown] gabapentin 300 mg capsule 900 mg PO QHS 09/15/22 [History Last Taken Unknown] hydrocodone-acetaminophen 5-325mg 5mg-325mg 1 tab PO BID 09/15/22 [History Last Taken Unknown] multivitamin-ferrous fumarate-folic acid 18 mg-400 mcg tablet (Centrum Women) 1 tab PO DAILY 09/15/22 [History Last Taken Unknown] nitroglycerin 0.4 mg sublingual tablet 0.4 mg sublingual Q5-15M PRN 09/15/22 [History Last Taken Unknown] rosuvastatin 10 mg tablet 10 mg PO DAILY 09/15/22 [History Last Taken Unknown] albuterol sulfate 90 mcg/actuation aerosol inhaler (Ventolin HFA) 2 puff inhalation Q4H PRN shortness of breath or wheezing #18 grams 09/19/22 [Rx Last Taken Unknown] calcium carbonate 600 mg-vitamin D3 25 mcg (1,000 unit) tablet 2 tab PO Q OTHER DAY 10/05/22 [History Last Taken Unknown] dimenhydrinate 50 mg tablet (Dramamine) 50 mg PO Q4H PRN nausea and vomiting 10/05/22 [History Last Taken Unknown] diphenhydramine HCl 25 mg capsule (Allergy (diphenhydramine)) 25 mg PO ONCE PRN 10/05/22 [History Last Taken Unknown] diphenoxylate-atropine 2.5 mg-0.025 mg tablet 1 tab PO 4XD PRN 10/05/22 [History Last Taken Unknown] esomeprazole magnesium 20 mg capsule,delayed release (Nexium) 20 mg PO DAILY 10/05/22 [History Last Taken Unknown] guaifenesin 600 mg tablet, extended release 12 hr (Mucinex) 600 mg PO BID 10/05/22 [History Last Taken Unknown] trazodone 150 mg tablet 150 mg PO QHS 10/05/22 [History Last Taken Unknown] vitamin B complex 1 cap PO DAILY 10/05/22 [History Last Taken Unknown] verapamil 120 mg tablet,extended release 120 mg PO QAM #90 tabs 11/21/22 [Rx Last Taken Unknown] verapamil 120 mg tablet 60 mg (1/2 x 120 mg) PO QPM #45 tabs 12/21/22 [Rx Last Taken Unknown] dicyclomine 20 mg tablet 20 mg PO BID #60 tabs 03/01/23 [Rx Last Taken Unknown] lactulose 10 gram/15 mL oral solution 15 ml PO QHS PRN constipation #473 mL 03/01/23 [Rx Last Taken Unknown] furosemide 40 mg tablet (Lasix) 40 mg PO DAILY #30 tabs 06/01/23 [Rx Last Taken Unknown] metoprolol tartrate 25 mg tablet 12.5 mg (1/2 x 25 mg) PO BID #30 tabs 06/01/23 [Rx Last Taken Unknown] ondansetron HCl 4 mg tablet 4 mg PO Q6H PRN 06/01/23 [History Last Taken Unknown] Allergy/AdvReac Type Severity Reaction Status Date / Time prochlorperazine Allergy Severe hallucinati Verified 06/01/23 09:46 [From Compazine] ons Sulfa (Sulfonamide Allergy Unknown unknown Verified 06/01/23 09:46 Antibiotics) ketorolac [From Toradol] Allergy Pain in Verified 06/01/23 09:46 joints Family History Other Cancer Diabetes Heart disease Surgical History H/O bilateral cataract extraction History of appendectomy History of cholecystectomy History of colonoscopy History of tonsillectomy History of total abdominal hysterectomy and bilateral salpingo-oophorectomy Hx of shoulder surgery Social History household members: none Smoking Status: Former smoker how long ago did patient quit smokin alcohol intake: former year quit: 1995 substance use type: former substance user Date of last use: 1969 ROS ROS ED Constitutional Constitutional ED: Reports other Details: + Dizziness ; Denies chills or fever(s) Eyes Eyes: Denies change in vision ENT ENT ED: Denies rhinorrhea or sore throat Cardiovascular Cardiovascular: Reports palpitations; Denies chest pain Respiratory/Chest Respiratory/Chest: Reports cough and dyspnea on exertion; Denies dyspnea Gastrointestinal Gastrointestinal: Denies abdominal pain, nausea or vomiting Musculoskeletal Musculoskeletal: Reports other Details: right hand/wrist pain ; Denies back pain or neck pain Integumentary Reports other Details: bruising to right hand Neurologic Neurologic: Denies headache(s), paresthesias or weakness Psychiatric Psychiatric: Denies anxiety Hematologic/Lymphatic Hematologic/Lymphatic: Denies easy bleeding or easy bruising EXAM Physical Exam Const Vital Signs: 06/01/23 09:35 06/01/23 10:56 Temperature 97.1 F L Temperature Source Temporal Pulse Rate 160 H 75 Respiratory Rate 16 11 L Blood Pressure 127/109 H Blood Pressure Mean 115 Pulse Ox 92 91 Oxygen Delivery Method Room Air Room Air Positive well nourished and well developed General Appearance ED: well developed and NAD HEENT Reports moist mucous membranes HEENT Narrative: Mild injection of the oropharynx with no exudate or tonsillar edema present. Normal phonation. Moist mucosal membranes. Eyes PERRL and EOMs intact bilaterally Neck full ROM and supple Neck Narrative: No JVD Chest Wall inspection of chest normal and palpation of chest normal Resp normal respiratory effort and clear to auscultation bilaterally Auscultation: Negative for rhonchi or wheezes Cardio regular rate, regular rhythm and no murmurs GI non-tender and non-distended Extremity normal to inspection and full ROM Extremity Narrative: No deformity. No pinpoint tenderness palpation and specifically of the right upper extremity. Normal range of motion of the hand. Patient does point to herright wrist and hand is a vague area of pain. Neuro oriented x3 and moves all extremities Sensorium / Orientation: alert Motor Exam: Negative for general weakness Psych mental status grossly normal Skin Skin Narrative: Approximately 3 cm circumferential area of ecchymosis noted to the dorsum of themid right hand. No hematoma or crepitus appreciated. No active bleeding or break in the skin appreciated. MDM MDM MDM Narrative Medical decision making narrative: Patient presents to the ER for evaluation of bruising to her right hand. She started feel dizzy on her way to the ER from her cardiology office and is noted to be in atrial fibrillation with RVR upon triage. Patient did have initial EKGwhich did effectual A-fib RVR but self converted to normal sinus rhythm by the time I saw her. Has had some very mild cough and questionable URI symptoms and was exposed to COVID and will be tested for COVID. Will perform cardiac workup as well as evaluation for her hand with an x-ray. Suspect she sustained a contusion at some time which is what caused what appears to be bruising to the back of her hand. Patient's lab work consistent with a mildly elevation of her hemoglobin of 15.2 question she is hemoconcentrated. Her creatinine is mildly elevated from her baseline at 1.2 however she does not have an HARJINDER. TSH is normal. High since hetroponin 6 and 7 respectively. X-ray of the hand as well as the chest reviewed by myself as well as radiology does not show any acute process. Patient's blood pressure is soft in the ER. She is able to walk to the bathroomhowever I do question if she could be intravascular depleted. She is given a 500 cc bolus and states she is feeling better. Blood pressures improved. Will discharge home. I also discussed the case with cardiology on-call given her transient episode of A-fib with RVR. He recommend starting the patient on metoprolol. Given her soft blood pressure will place her on 12.5 mg metoprolol tartrate twice daily. She is amenable to this. Again discussed with her risk and benefits of stroke and anticoagulation. She is more open to going on novel oral anticoagulation but is still concerned about bruising. Will discuss with her nurse practitioner. I did add on a BNP to her labs. I do have a page out to Karen, cardiology nurse practitioner. Patient encouraged to follow-up outpatient. She we will discuss stroke prevention with anticoagulation at her next appointment. Patient verbalized agreement understanding with this. Discharged home in stable and improved condition. After discussion with Karen, will decrease her Lasix to 40 mg daily. She will do blood pressure checks at home to keep a log and follow-up in 2 weeks for repeat check. Karen will also follow-up on the patient's BNP. Lab Data Attestation: I reviewed the patient's lab results. Lab results narrative: Laboratory Results - last 24 hr 06/01/23 06/01/23 10:12 12:55 WBC 9.1 RBC 5.10 Hgb 15.2 H Hct 46.7 MCV 91.6 MCH 29.8 MCHC 32.5 RDW Std Deviation 41.1 RDW Coeff of Dave 12.1 Plt Count 289 MPV 9.4 Immature Gran % (Auto) 0.300 Neut % (Auto) 67.1 Lymph % (Auto) 22.1 [place] % (Auto) 8.5 Eos % (Auto) 1.5 Baso % (Auto) 0.5 Absolute Neuts (auto) 6.1 Absolute Lymphs (auto) 2.02 Nucleated RBC % 0 Sodium 138 Potassium 4.2 Chloride 100 Carbon Dioxide 29.0 Anion Gap 9 BUN 19 H Creatinine 1.20 H Est GFR (MDRD) Af Amer 57 L Est GFR (MDRD) Non-Af 47 L BUN/Creatinine Ratio 15.8 Glucose 119 H Calcium 10.2 H Total Bilirubin 0.40 AST 31 ALT 25 Alkaline Phosphatase 112 Troponin I High Sens 6 7 Total Protein 8.1 Albumin 4.0 Globulin 4.1 Albumin/Globulin Ratio 1.0 TSH 1.74 Radiography Diagnostic Testing: Diagnostic Data Chest X-Ray 06/01/23 10:33 IMPRESSION: No acute abnormality is present. Electronically Signed: Gus Ragland MD at 11:33 EST , Hand X-Ray 06/01/23 11:02 IMPRESSION: Normal x-ray examination of the hand. Electronically Signed: Gus Ragland MD at 11:33 EST , Rhythm Strip Rhythm Strip: Sinus Rhythm Rate: 89 Ectopy: None EKG Initial EKG: Attestation: I personally reviewed and interpreted this EKG as follows: Interpretation: Atrial Fibrillation Comments: Atrial fibrillation with rapid ventricular response at a rate of153 bpm Normal axis Normal intervals Normal ST segments Compared to prior EKG on 10/15/2022 patient is now in A-fib with RVR compared to prior normal sinus rhythm Follow-up EKG: Attestation: I personally reviewed and interpreted this EKG as follows: Interpretation: Sinus Rhythm Comments: Normal sinus rhythm at a rate of 88 bpm Normal axis Normal intervals Normal ST segments Patient is no longer in atrial fibrillation compared to EKG obtained 20 minutes ago however compared to prior EKG from earlier this year, no acute changes Discharge Plan Triage Chief Complaint: Upper Extremity Injury ED Provider: Milli Jefferson Dx/Rx/DC Orders Clinical Impression: Contusion of dorsum of right hand, Paroxysmal atrial fibrillation Instructions: ED AFIB, ED Contusion, Upper Extremity Prescriptions: New metoprolol tartrate 25 mg tablet 12.5 mg PO BID Qty: 30 0RF furosemide [Lasix] 40 mg tablet 40 mg PO DAILY Qty: 30 0RF Discontinued furosemide 40 mg tablet 40 mg PO BID No Action tamsulosin 0.4 mg capsule 0.4 mg PO DAILY montelukast 10 mg tablet 10 mg PO QPM thyroid (pork) [PREDATOR CONTROL TRAPPER Thyroid] 60 mg tablet 60 mg PO DAILY spironolactone 25 mg tablet 25 mg PO DAILY selenium 200 mcg tablet 200 mcg PO DAILY levomefolate calcium [L-Methylfolate] 7.5 mg tablet 7.5 mg PO DAILY potassium chloride 20 mEq tablet extended release 20 meq PO DAILY gabapentin 300 mg capsule 600 mg PO TID gabapentin 300 mg capsule 900 mg PO QHS nitroglycerin 0.4 mg tablet, sublingual 0.4 mg sublingual Q5-15M PRN Rx Instructions: do not exceed 3 doses per episode rosuvastatin 10 mg tablet 10 mg PO DAILY Centrum Women 18-400 mg-mcg tablet 1 tab PO DAILY buprenorphine 5 mcg/hour patch weekly 1 patch transdermal QWEEK Patient Comments: APPLY 1 PATCH ONCE A WEEK FOR 4 WEEKS. hydrocodone-acetaminophen 5-325 mg tablet 1 tab PO BID Patient Comments: TAKE 1 TABLET BY MOUTH TWICE DAILY FOR 28 DAYS Excedrin Migraine 250-250-65 mg tablet 1 tab PO Q6H PRN ascorbate calcium (vitamin C) 500 mg tablet 500 mg PO DAILY diphenhydramine HCl [Allergy (diphenhydramine)] 25 mg capsule 25 mg PO ONCE PRN diphenoxylate-atropine 2.5-0.025 mg tablet 1 tab PO 4XD PRN dimenhydrinate [Dramamine] 50 mg tablet 50 mg PO Q4H PRN (Reason: nausea and vomiting) guaifenesin [Mucinex] 600 mg tablet extended release 12hr 600 mg PO BID esomeprazole magnesium [Nexium] 20 mg capsule,delayed release(DR/EC) 20 mg PO DAILY trazodone 150 mg tablet 150 mg PO QHS vitamin B complex Capsule 1 cap PO DAILY calcium carbonate-vitamin D3 600 mg-25 mcg (1,000 unit) tablet 2 tab PO Q OTHER DAY albuterol sulfate [Ventolin HFA] 90 mcg/actuation HFA aerosol inhaler 2 puff inhalation Q4H PRN (Reason: shortness of breath or wheezing) Qty: 18 6RF verapamil 120 mg tablet 60 mg PO QPM Qty: 45 3RF ondansetron HCl 4 mg tablet 4 mg PO Q6H PRN verapamil 120 mg tablet extended release 120 mg PO QAM Qty: 90 3RF lactulose 10 gram/15 mL solution 15 ml PO QHS PRN (Reason: constipation) Qty: 473 6RF dicyclomine 20 mg tablet 20 mg PO BID Qty: 60 6RF Primary Care Provider: Dajuan Eric Referrals: Gio Villalba MD [Med Staff - Active Staff] - 1-2 Weeks Dajuan Eric MD [Primary Care Provider] - Activity Restrictions/Additional Instructions: You do not need further labs done as they were all drawn here today. I spoke with Karen from the cardiology office. She would like to decrease her Lasix to 40 mg once a day. Please check your blood pressure at home and keep a log. Please follow-up with cardiology in 2 weeks. Please also discuss at your cardiology appointments anticoagulation for stroke prevention associated atrial fibrillation. If you have worsening symptoms please return to the emergency room. What to do if you have Problems For any increased pain, shortness of breath, bleeding, nausea or vomiting, chestpain, or any unexpected problems, contact your Primary Care Provider. Call [facility] ([phone]) or report to the closest Emergency Room. Call 911 if necessary. 06/01/23 1523 <Electronically signed by Milli Jefferson DO> Cosigner Signature (if applicable): CC: Dr. Dajuan Eric MD ~ Signed [facility] Work Phone: 1(902) 746-919512-07-2023 Miscellaneous Notes* Telephone Encounter - Ree Langston ROHIT - 05/18/2023 12:40 PM EST Patient calling from pharmacy, aware rx not sent as yet. Patient does not drive, has to get a ride.Aware PCP is seeing patients may not be done until later today. She will check again tomorrow. * Telephone Encounter - Clive Johnson Ma - 05/18/2023 8:21 AM EST GUNNAR: 01/24/2023 Last refill: 11/09/2022 QTY: 30 Refills: 5 * Telephone Encounter - Frances Corrales - 05/17/2023 4:46 PM EST Patient has been identified by name and date of : Yes Requested Prescriptions Pending Prescriptions Disp Refills montelukast (SINGULAIR) 10 mg tablet 30 tablet 5 Sig: Take 1 tablet by mouth daily at bedtime. RX INSTRUCTIONS: Patient requesting a call when RX is approved and sent to the pharmacy. Please call patient at: [phone] Frances Avery documented in this encounterMer[facility]11-27-2023 Miscellaneous Notes* Telephone Encounter - Bernadette Lora LPN - 05/08/2023 2:59 PM EST Patient has been identified by name and [...] Please advise. Thank you. Bernadette Lora LPN. * Telephone Encounter - Beryl Julien - 05/08/2023 2:49 PM EST Ember let her Jardiance script , because of cost. She was informed that she can get a card tohelp defray the cost and would like a new prescription sent in. * Telephone Encounter - Beryl Julien - 05/08/2023 2:48 PM EST Pharmacy verified in Epic Patient has been [...] (143 lb) Not applicable Please advise. Beryl [facility] documented in this encounterMer[facility]11-03-2023 Miscellaneous Notes* Telephone Encounter - Silvia Jimenez OCCA - 04/14/2023 7:33 AM EDT Patient has been identified by name and [...] Thank you. YONATHAN Pozo. documented in this encounterMercy [facility]10-26-2023 History of Present illness Narrative* Maryjo Yarbrough LPN - 04/06/2023 12:32 PM EDT Scan on 04/06/2023 10:00 AM by Provider, VIRGIL Fontaine: Bone Density Scan on 04/06/2023 11:04 AM by Provider, External, VIRGIL: Bone Density documented in this encounterMercy [facility] Hospital10-24-2023 Miscellaneous Notes* Telephone Encounter - Bernadette Lora LPN - 04/04/2023 3:32 PM EDT Printed Orders faxed to [phone]. Bernadette Lora LPN * Telephone Encounter - Ree Langston LPN - 03/31/2023 9:09 AM EDT Shweta from [facility] Scheduling dept calling patient has appt scheduled for Monday for mamm and bone density. They had the Mamm order but not correct, needs with micky order. And asking to have the bone density order and mamm both faxed to [phone]. Pending micky gera order needs filed and bone density order is in computer already. Please fax both when signed. Please advise documented in this encounterMercy [facility] Hospital09-18-2023 Miscellaneous Notes* Telephone Encounter - Bernadette Lora LPN - 02/27/2023 2:06 PM EDT Patient notified of below results, verbalized understanding. Bernadette Lora LPN * Telephone Encounter - Bernadette Lora LPN - 02/27/2023 2:05 PM EDT ----- Message from Kayce Jules APRN.CNP sent at 02/27/2023 2:01 PM EDT ----- HgbA1c 7.1, diabetes control slightly improved. The rest of her labs were normal Kayce Jules APRN.CNP documented in this encounterMercy Health [facility] Hospital09-15-2023 Miscellaneous Notes* Telephone Encounter - Radha Howard - 02/24/2023 11:32 AM EDT Patient given results and verbalized understanding of instructions given. Radha Howard * Telephone Encounter - Taylor Lala APRN.CNP - 02/24/2023 10:54 AM EDT Please let patient know that the wound culture revealed bacterial growth. Continue taking the antibiotic, as it is appropriate. Follow up with PCP documented in this encounterMercy Health [facility] Hospital09-13-2023 History of Present illness Narrative* Cindy Palmer APRN.CNP - 02/22/2023 9:56 AM EDT Images from the original note were not included. This note was created using Presstlerriter. Caitlin Maldonado is a 72 year old female. Patient presents with ulceration and skin irritation of the gricelda cleft for two weeks. Pain is 6/10and worse with extended periods of sitting. Patient has been using neosporin and hemorrhoid cream with no improvement of symptoms. She denies any fever, chills, or nausea. She reports that she had the same type of irritation 30 years ago that healed on its own with neosporin. She feels that today'spresentation is more severe than that was. The [...] kg (144 lb 3.2 oz) SpO2 96% BMI25.23 kg/m Physical Exam Vitals reviewed. Constitutional: General: [...] T14.8XXA - see above E Adrianna [employer] PERSONAL COUNSELOR Student Supervising therapist was present and guided the care of the patient for the entire session on thisdate. All documentation was reviewed and agreed upon. Cindy Plamer APRN.TECHNICAL SERVICES COORDINATOR documented in this encounterMercy Health Anderson Hospital08-15-2023 Instructions* Patient Instructions* Kayce Jules APRN.CNP - 01/24/2023 10:12 AM [...] review all the medicines you take, even ucnp-gll-wnxrhup medicines. As you get older, the way medicines work in your body can change. Some medicines, or combinations of medicines, can make you sleepy or dizzy andcan cause you to fall. 3. Have your [...] have certain medical conditions. documented in this encounterMercy Health Anderson Hospital08-15-2023 History of Present illness Narrative* Kayce Jules APRN.CNP - 01/24/2023 10:10 AM EDT Ember Maldonado is a 72 year old female here for a Medicare wellness visit. Health Risk Assessment In general, health is: Good Concerns with balance:More than half the days, ambulates with a walker Concerns with teeth or dentures:multiple missing teeth, issues with chewing Concerns with sexual function:prefers not to answer Jefferson anxious, stressed, angry, irritable, lonely, isolated, or [...] Current care team: Patient Care Team: Dajuan Eric MD as PCP - General (Internal Medicine) Outside specialists seen: Cardiology- Dr. Villalba [facility] Environmental Safety Specialist- Dr. Arshad GI- Dr. Blas Psychiatry- [facility] Pain management- Dr. Carter Medical/Family history [...] with patient, and I recommended no further interventionat this time. Cognitive screening Mini Cog Score: [...] Cologuard - Bone density testing (scheduled at [facility]) - Opioid prescription and treatment plan review 2. Lump of axilla, right - ICD9: 782.2, ICD10: R22.31 Patient scheduled for mamm screening at [facility], will change to diagnostic mammogram [...] Abnormal breast fingind See #2 Kayce Jules APRN.TECHNICAL SERVICES COORDINATOR documented in this encounterMercy Health [facility] Hospital07-28-2023 Miscellaneous Notes* Telephone Encounter - Dajuan Eric MD - 01/06/2023 12:45 PM EDT Patient's request for medication is as follows Requested Prescriptions Signed Prescriptions Disp Refills gabapentin (NEURONTIN) 300 mg capsule 270 capsule 2 Sig: Take 2 capsules by mouth three times daily AND 3 capsules daily at bedtime. Do all this for 90days. Authorizing Provider: DAJUAN ERIC MD * Telephone Encounter - Bernadette Lora LPN - 01/05/2023 3:50 PM EDT Patient has been identified by name and date of : Yes Patient phones for refill(s): Requested Prescriptions Pending Prescriptions Disp Refills gabapentin (NEURONTIN) 300 mg capsule 270 capsule 2 Sig: Take 2 capsules by mouth three times daily AND 3 capsules daily at bedtime. Do all this for 90days. Date of last office visit in primary care: 09/23/2022 Annual Medicare: 01/24/2023 Last 2 Encounter Wt Readings: Date: Wt: 12/26/2022 66.8 kg (147 lb 3.2 oz) 07/18/2022 75.8 kg (167 lb) Previous labs/tests for medication: Not applicable Please advise. Thank you. Bernadette Lora LPN documented in this encounterMercy Health [facility] Hospital07-17-2023 History of Present illness Narrative* Filippo Boggs MD - 12/26/2022 10:59 AM EDT Patient presents with: Nausea: Dizziness, fever, KAT, [...] constipation and diarrhea 06/02/2022 Dr. Chantell Blas, [facility] Anticoagulant medication declined by patient Anxiety and depression At risk for stroke Atrial fibrillation ([facility]) 08/30 Cellulitis of lower extremity 2019 Chronic fatigue syndrome Dizziness, nonspecific 09/07/2021 Falls frequently 09/07/2021 Fibromyalgia Folic acid deficiency GERD (gastroesophageal reflux disease) Hypothyroidism Insomnia Intractable back pain Mild intermittent asthma without complication 10/05/2021 Osteopenia Type 2 diabetes mellitus without complication, without long-term current use of insulin ([facility]) 04/21/2021 MEDICATIONS: Current Outpatient Medications Medication Sig [...] by mouth twice daily as needed. From [facility] lactulose 10 gram/15 mL (15 mL) soln Take 10 g by mouth daily at bedtime. [facility] rosuvastatin (CRESTOR) 10 mg tablet Take [...] Take 1 tablet by mouth once daily. PREDATOR CONTROL TRAPPER THYROID 60 mg tablet Take 1 tablet [...] Take 1,200 mg by mouth twice daily. Vwlezda-Whpxbobwwvklv-Lzpycaht (EXCEDRIN MIGRAINE) 250-250-65 mg per tablet Take [...] kg (147 lb 3.2 oz) SpO2 98% BMI26.08 kg/m PHYSICAL EXAM: GEN: mildly ill appearing [...] illness. Filippo Boggs MD documented in this encounterMercy Health [facility] Hospital05-30-2023 Miscellaneous Notes* Telephone Encounter - Clive Johnson Ma - 11/08/2022 1:59 PM EDT GUNNAR: 09/23/2022 Last refill: 05/13/2022 QTY: 30 Refills: 5 Patient's request for medication is as follows: Requested Prescriptions Pending Prescriptions Disp Refills montelukast (SINGULAIR) 10 mg tablet 30 tablet 5 Sig: Take 1 tablet by mouth daily at bedtime. Please approve the above prescription(s) to electronically send to pharmacy. Clive Johnson Ma * Telephone Encounter - Mahi Glynn - 11/08/2022 12:48 PM EDT Patient has been identified by name and date of : Yes Requested Prescriptions Pending Prescriptions Disp Refills montelukast (SINGULAIR) 10 mg tablet 30 tablet 5 Sig: Take 1 tablet by mouth daily at bedtime. RX INSTRUCTIONS: Patient aware RX will be sent to pharmacy. No need to notify patient. Mahi Glynn documented in this encounterMercy Health Anderson Hospital05-06-[address] [facility] October 15, 2022 5:29pm Note Date/Time October 15, 2022 2:44pm [facility] Medical Records Department [address] [place] [address] Emergency Department Summary 10/15/22 MR#: [id number] Acct: [id number] Name: EMBER MALDONADO Rep #:[id number] : 1950 72 From: Andrae Hitchcock PCP: Dr. Dajuan Eric MD Status:R EG ER Location: ED HPI History of Present Illness Chief Complaint: Chest Pain Onset/Context/Timing Onset: Today and Hours (2) Activity at onset: sudden Timing: Continuous Quality: Positive for Heaviness Location: Left Chest and - (Left arm) Worsened By: Nothing Relieved By: NTG Associated Symptoms: Positive for Dyspnea, Lightheadedness and Palpitations; Negative for Nausea, Vomiting, Diaphoresis, Cough, Fever or Acid Reflux Narrative Narrative: Patient presents with chest pain that began today approximately 2 hours prior toarrival. Patient states she was having heaviness over the left side of her chest and pain going down into her left arm. Patient states she took some nitroglycerin at home which improved her chest pain. Patient states she is still having arm pain. Patient states her blood pressure did drop after taking the nitroglycerin tablets. Patient states nothing makes her pain worse. Patient admits to some shortness of breath with the pain. Patient states she also got very dizzy with the pain. Patient also admits to some palpitations. Patient denies any nausea or vomiting. Patient denies any diaphoresis. CVD Risk Factors: Positive for Hypertension and Family History 1' </=55; Negative for Diabetes, Hypercholesterolemia or Smoking PE Risk Factors: Positive for Recent Travel/Surgery (Patient had recent cataractsurgery on her right eye.); Negative for Recent Immobilization, Prior DVT or PE,Cancer or OCP + Smoking + >/=35 PFSH PFSH Medical History ADD (attention deficit disorder) Arthritis Asthma Atrial fibrillation Chronic fatigue syndrome Essential hypertension Fibromyalgia Folic acid deficiency GERD (gastroesophageal reflux disease) Hypothyroidism IBS (irritable bowel syndrome) Insomnia Intractable back pain Osteopenia Paroxysmal atrial fibrillation SOB (shortness of breath) Type 2 diabetes mellitus without complication, with long-term current use of insulin Home Medications furosemide 40 mg tablet 40 mg PO BID 01/13/22 [History Last Taken Unknown] levomefolate calcium 7.5 mg tablet (L-Methylfolate) 7.5 mg PO DAILY 01/13/22 [History Last Taken Unknown] montelukast 10 mg tablet 10 mg PO QPM 01/13/22 [History Last Taken Unknown] potassium chloride 20 mEq tablet,extended release 20 meq PO DAILY 01/13/22 [History Last Taken Unknown] selenium 200 mcg tablet 200 mcg PO DAILY 01/13/22 [History Last Taken Unknown] spironolactone 25 mg tablet 25 mg PO DAILY 01/13/22 [History Last Taken Unknown] tamsulosin 0.4 mg capsule 0.4 mg PO DAILY 01/13/22 [History Last Taken Unknown] thyroid (pork) 60 mg tablet (PREDATOR CONTROL TRAPPER Thyroid) 60 mg PO DAILY 01/13/22 [History Last Taken Unknown] dicyclomine 20 mg tablet 20 mg PO BID #60 tabs 08/04/22 [Rx Last Taken Unknown] ascorbate calcium (vitamin C) 500 mg tablet 500 mg PO DAILY 09/15/22 [History Last Taken Unknown] uhjxddx-uitemvxwbljsu-nncblgjx 250 mg-250 mg-65 mg tablet (Excedrin Migraine) 1 tab PO Q6H PRN 09/15/22 [History Last Taken Unknown] buprenorphine 5 mcg/hour weekly transdermal patch 1 patch transdermal QWEEK 09/15/22 [History Last Taken Unknown] cyclobenzaprine 10 mg tablet 10 mg PO BID 09/15/22 [History Last Taken Unknown] empagliflozin 10 mg tablet (Jardiance) 10 mg PO QAM 09/15/22 [History Last Taken Unknown] gabapentin 300 mg capsule 600 mg PO TID 09/15/22 [History Last Taken Unknown] gabapentin 300 mg capsule 900 mg PO QHS 09/15/22 [History Last Taken Unknown] hydrocodone-acetaminophen 5-325mg 5mg-325mg 1 tab PO BID 09/15/22 [History Last Taken Unknown] multivitamin-ferrous fumarate-folic acid 18 mg-400 mcg tablet (Centrum Women) 1 tab PO DAILY 09/15/22 [History Last Taken Unknown] nitroglycerin 0.4 mg sublingual tablet 0.4 mg sublingual Q5-15M PRN 09/15/22 [History Last Taken Unknown] rosuvastatin 10 mg tablet 10 mg PO DAILY 09/15/22 [History Last Taken Unknown] verapamil 120 mg tablet 60 mg PO QPM 09/15/22 [History Last Taken Unknown] verapamil 120 mg tablet,extended release 120 mg PO QAM 09/15/22 [History Last Taken Unknown] albuterol sulfate 90 mcg/actuation aerosol inhaler (Ventolin HFA) 2 puff inhalation Q4H PRN shortness of breath or wheezing #18 grams 09/19/22 [Rx Last Taken Unknown] calcium carbonate 600 mg-vitamin D3 25 mcg (1,000 unit) tablet 2 tab PO Q OTHER DAY 10/05/22 [History Last Taken Unknown] dimenhydrinate 50 mg tablet (Dramamine) 50 mg PO Q4H PRN nausea and vomiting 10/05/22 [History Last Taken Unknown] diphenhydramine HCl 25 mg capsule (Allergy (diphenhydramine)) 25 mg PO ONCE PRN 10/05/22 [History Last Taken Unknown] diphenoxylate-atropine 2.5 mg-0.025 mg tablet 1 tab PO 4XD PRN 10/05/22 [History Last Taken Unknown] esomeprazole magnesium 20 mg capsule,delayed release (Nexium) 20 mg PO DAILY 10/05/22 [History Last Taken Unknown] guaifenesin 600 mg tablet, extended release 12 hr (Mucinex) 600 mg PO BID 10/05/22 [History Last Taken Unknown] lactulose 10 gram/15 mL oral solution 15 ml PO QHS 10/05/22 [History Last Taken Unknown] trazodone 150 mg tablet 150 mg PO QHS 10/05/22 [History Last Taken Unknown] vitamin B complex 1 cap PO DAILY 10/05/22 [History Last Taken Unknown] zinc sulfate 50 mg zinc (220 mg) tablet 50 mg PO DAILY 10/05/22 [History Last Taken Unknown] Allergy/AdvReac Type Severity Reaction Status Date / Time prochlorperazine Allergy Severe hallucinati Verified 10/15/22 14:18 [From Compazine] ons Sulfa (Sulfonamide Allergy Unknown unknown Verified 10/15/22 14:18 Antibiotics) Family History Other Cancer Diabetes Heart disease Surgical History History of appendectomy History of cholecystectomy History of colonoscopy History of tonsillectomy History of total abdominal hysterectomy and bilateral salpingo-oophorectomy Hx of shoulder surgery Social History household members: none Smoking Status: Former smoker how long ago did patient quit smokin alcohol intake: former year quit: 1995 substance use type: former substance user Date of last use: 1969 ROS ROS ED Constitutional Constitutional ED: Denies chills or fever(s) Eyes Eyes: Denies blurry vision or change in vision ENT ENT ED: Reports rhinorrhea; Denies sore throat Cardiovascular Cardiovascular: Reports chest pain and palpitations Respiratory/Chest Respiratory/Chest: Reports dyspnea; Denies cough Gastrointestinal Gastrointestinal: Denies abdominal pain, nausea or vomiting Genitourinary Genitourinary ED: Denies dysuria or hematuria Musculoskeletal Musculoskeletal: Reports neck pain; Denies back pain Integumentary Denies abscess or rash Neurologic Neurologic: Reports headache(s); Denies weakness Allergic/Immunologic Allergic/Immunologic ED: Denies mouth swelling or urticaria EXAM Physical Exam Const Vital Signs: 10/15/22 14:15 10/15/22 14:19 10/15/22 14:36 Temperature 97.5 F L Temperature Source Temporal Pulse Rate 66 Respiratory Rate 13 Respiratory Effort Normal Non-Labored Blood Pressure 98/58 L Blood Pressure Mean 71 Pulse Ox 96 Oxygen Delivery Method Room Air Room Air 10/15/22 15:33 Temperature Temperature Source Pulse Rate 71 Respiratory Rate 16 Respiratory Effort Blood Pressure 96/82 H Blood Pressure Mean 86 Pulse Ox 97 Oxygen Delivery Method Room Air Positive well nourished and well developed General Appearance ED: well developed and NAD HEENT normocephalic and atraumatic Neck supple and no JVD Chest Wall palpation of chest normal Resp normal respiratory effort and clear to auscultation bilaterally Effort and Inspection: Negative for respiratory distress Cardio regular rate, regular rhythm and no murmurs GI normal to inspection, nondistended, normoactive bowel sounds, soft to palpation,non-tender and non-distended Extremity normal to inspection General Extremety ED: Negative for edema or tenderness General Extremity: Negative for edema Neuro oriented x3, CN's II-XII intact bilaterally and no sensory deficits noted Sensorium / Orientation: awake and alert Motor Exam: strength 5/5 throughout Psych mental status grossly normal Heart Score History: Slightly/Non-Suspicious ECG: Normal Age: >/= 65 years Risk Factors: 1 or 2 Risk Factors Score: 3 MDM MDM MDM Narrative Medical decision making narrative: Differential diagnosis includes cardiac dysrhythmia, cardiac ischemia, pneumonia, pneumothorax, anxiety, electrolyte abnormality, and musculoskeletal pain. EKG will be obtained to assess for cardiac dysrhythmia and cardiac ischemia. Chest x-ray will be obtained to assess for pneumonia and pneumothorax. CBC will be obtained to assess for leukocytosis and anemia. Basic metabolic profile will be obtained to assess for electrolyte abnormality and renal function. High-sensitivity troponin will be obtained to assess for cardiac ischemia. 2-hour repeat high-sensitivity troponin will be obtained to assess for ongoing cardiac ischemia. Lab Data Attestation: I reviewed the patient's lab results. Lab results narrative: CBC was reviewed and was within normal limits. Basic metabolic profile was reviewed and was essentially within normal limits. High-sensitivity was reviewed and was normal at 3. Labs: Laboratory Results - last 24 hr 10/15/22 10/15/22 14:35 14:35 WBC 10.3 RBC 5.02 Hgb 14.5 Hct 44.8 MCV 89.2 MCH 28.9 MCHC 32.4 RDW Std Deviation 40.1 RDW Coeff of Dave 12.2 Plt Count 277 MPV 9.0 Immature Gran % (Auto) 0.100 Neut % (Auto) 73.5 H Lymph % (Auto) 16.7 L [place] % (Auto) 8.9 Eos % (Auto) 0.3 Baso % (Auto) 0.5 Absolute Neuts (auto) 7.6 Absolute Lymphs (auto) 1.71 Nucleated RBC % 0 Sodium 136 Potassium 4.4 Chloride 101 Carbon Dioxide 28.0 Anion Gap 7 BUN 18 Creatinine 0.93 Estim Creat Clear Calc 44.52 Est GFR (MDRD) Af Amer 77 Est GFR (MDRD) Non-Af 63 BUN/Creatinine Ratio 19.4 Glucose 122 H Calcium 9.5 Troponin I High Sens 3 Radiography Diagnostic Testing: Clinical Impression(s) from Imaging Studies Chest X-Ray 10/15/22 14:34 IMPRESSION: No acute cardiopulmonary abnormality. No interval change. Electronically Signed: Dylan Cantu MD at 15:25 EDT , Portable 1 view chest x-ray was obtained. On my independent interpretation, lung cunah are clear. There is normal cardiac silhouette. Bony thorax is normal. There is no acute process noted. Radiologist also interpreted the x-ray and agrees. EKG Initial EKG: Attestation: I personally reviewed and interpreted this EKG as follows: Interpretation: Sinus Rhythm (63) and No Acute Injury Pattern Prior EKG tracings: available for review Prior: Unchanged (10/05/2022) Treatment and Re-Evaluation :: Patient was given aspirin here. Patient was advised of her findings. Patient has a HEART score of 3. 2-hour repeat high-sensitivity troponin is pending. Care of the patient will be turned over to the oncoming physician pending results of this. If this is normal, I feel the patient could be safely discharged home. Patient was advised that she is low risk for acute cardiac event. Patient will be instructed to follow-up with her primary care physician in 5 to 7 days if her repeat troponin is normal. Patient understands and is agreeable with the plan. All questions were answered. Discharge Plan Triage Chief Complaint: Chest Pain ED Provider: Andrae Florez Dx/Rx/DC Orders Clinical Impression: Chest pain Instructions: ED Chest Pain, Uncertain Cause Prescriptions: No Action tamsulosin 0.4 mg capsule 0.4 mg PO DAILY montelukast 10 mg tablet 10 mg PO QPM thyroid (pork) [[facility] CONTR[employer] TRAPPER Thyroid] 60 mg tablet 60 mg PO DAILY furosemide 40 mg tablet 40 mg PO BID spironolactone 25 mg tablet 25 mg PO DAILY selenium 200 mcg tablet 200 mcg PO DAILY levomefolate calcium [L-Methylfolate] 7.5 mg tablet 7.5 mg PO DAILY potassium chloride 20 mEq tablet extended release 20 meq PO DAILY gabapentin 300 mg capsule 600 mg PO TID verapamil 120 mg tablet 60 mg PO QPM gabapentin 300 mg capsule 900 mg PO QHS cyclobenzaprine 10 mg tablet 10 mg PO BID nitroglycerin 0.4 mg tablet, sublingual 0.4 mg sublingual Q5-15M PRN Rx Instructions: do not exceed 3 doses per episode rosuvastatin 10 mg tablet 10 mg PO DAILY Centrum Women 18-400 mg-mcg tablet 1 tab PO DAILY buprenorphine 5 mcg/hour patch weekly 1 patch transdermal QWEEK Label Comments: APPLY 1 PATCH ONCE A WEEK FOR 4 WEEKS. hydrocodone-acetaminophen 5-325 mg tablet 1 tab PO BID Label Comments: TAKE 1 TABLET BY MOUTH TWICE DAILY FOR 28 DAYS Excedrin Migraine 250-250-65 mg tablet 1 tab PO Q6H PRN ascorbate calcium (vitamin C) 500 mg tablet 500 mg PO DAILY Jardiance 10 mg tablet 10 mg PO QAM Label Comments: TAKE 1 TABLET BY MOUTH ONCE DAILY WITH BREAKFAST verapamil 120 mg tablet extended release 120 mg PO QAM Label Comments: TAKE 1 TABLET BY MOUTH ONCE DAILY IN THE MORNING diphenhydramine HCl [Allergy (diphenhydramine)] 25 mg capsule 25 mg PO ONCE PRN diphenoxylate-atropine 2.5-0.025 mg tablet 1 tab PO 4XD PRN dimenhydrinate [Dramamine] 50 mg tablet 50 mg PO Q4H PRN (Reason: nausea and vomiting) guaifenesin [Mucinex] 600 mg tablet extended release 12hr 600 mg PO BID esomeprazole magnesium [Nexium] 20 mg capsule,delayed release(DR/EC) 20 mg PO DAILY trazodone 150 mg tablet 150 mg PO QHS vitamin B complex Capsule 1 cap PO DAILY zinc sulfate 50 mg zinc (220 mg) tablet 50 mg PO DAILY calcium carbonate-vitamin D3 600 mg-25 mcg (1,000 unit) tablet 2 tab PO Q OTHER DAY lactulose 10 gram/15 mL solution 15 ml PO QHS albuterol sulfate [Ventolin HFA] 90 mcg/actuation HFA aerosol inhaler 2 puff inhalation Q4H PRN (Reason: shortness of breath or wheezing) Qty: 18 6RF dicyclomine 20 mg tablet 20 mg PO BID Qty: 60 2RF Primary Care Provider: Dajuan Eric Referrals: Dajuan Eric MD [Primary Care Provider] - 5-7 Days What to do if you have Problems For any increased pain, shortness of breath, bleeding, nausea or vomiting, chestpain, or any unexpected problems, contact your Primary Care Provider. Call [facility] ([phone]) or report to the closest Emergency Room. Call 911 if necessary. 10/15/22 1556 <Electronically signed by Andrae Florez DO> Cosigner Signature (if applicable): CC: Dr. Dajuan Eric MD ~ Signed ADDENDUM by Dr. Italo Mendenhall MD on 10/15/22 at 1728 Patient was turned over to me pending repeat troponin. This came back at 4. Still negative. I went to talk to the patient. She feels well now. She statesshe did feel lightheaded after she took nitroglycerin at home. But we have manyblood pressures here that are running about 110/70. She feels better now. Her heart rate is about 60- 65 but this is likely due to being on verapamil. She states her steak sauce maker is going to try to get her off of this because she gets very weak and tired on it. But she did not tolerate beta-blockers either. But she would like to go home. She has no chest pain or dyspnea now. She feels back to normal. 10/15/22 [id number]<Electronically signed by Italo Mendenhall MD> Cosigner Signature (if applicable): cc: Dr. Dajuan Eric MD ~* Signed [facility] Work Phone: 1(288) 523-433305-01-2023 Miscellaneous Notes* Telephone Encounter - Summer Hood LPN - 10/10/2022 10:34 AM EDT Last seen pcp 09/23/22. Next appt with [facility] TRAPPER 01/25/23. * Telephone Encounter - Amber Gibson [facility] - 10/10/2022 10:16 AM EDT Patient has been identified by name and date of : Yes Requested Prescriptions Pending Prescriptions Disp Refills gabapentin (NEURONTIN) 300 mg capsule 270 capsule 2 Sig: Take 2 capsules by mouth three times daily AND 3 capsules daily at bedtime. Do all this for 90days. spironolactone (ALDACTONE) 25 mg tablet 90 tablet 0 Sig: Take 1 tablet by mouth once daily. RX INSTRUCTIONS: PLEASE send RX today for both of these as patient is completely out of this medication Please call patient to advise this has been sent to her pharmacy at [phone] [facility] Miscellaneous Notes* Addendum Note - Dajuan Eric MD - 09/23/2022 11:40 PM EDTAddended by: DAJUAN ERIC on: 09/23/2022 11:40 PM Modules accepted: Orders documented in this encounterMer[facility]04-14-2023 Instructions* Patient Instructions* Dajuan Eric MD - 09/23/2022 11:57 AM EDT Recombinant [...] fasting blood work today. documented in this [facility]Mer[facility]04-14-2023 History of Present illness Narrative* Dajuan Eric MD - 09/23/2022 11:43 AM EDT This note was created using Presstlerriter. Subjective Ember Maldonado is a 72 year old female. She transferred cardiology to Dr. Villalba. No new medications have been added to date. Her epistaxis resolved with cautery. She continued to decline anticoagulation. She sees Dr. Blas for constipation and diarrhea. There has been no discussion about colon cancer screening. Her dizziness stopped fora time but was recurring again. She preferred [...] Neuropathy, Without Long-Term Current Use of Insulin ([facility]) Lumbar Radiculopathy Cervical Radiculopathy Dizziness, Nonspecific Falls Frequently Hypothyroidism Paf (Paroxysmal Atrial Fibrillation) ([facility]) Mixed Hyperlipidemia Chronic Diastolic Chf (Congestive Heart Failure) ([facility]) Mild Intermittent Asthma Without Complication [...] Take 1 tablet by mouth once daily. PREDATOR CONTROL TRAPPER THYROID 60 mg tablet Take 1 tablet [...] Take 1,200 mg by mouth twice daily. Nwppuoc-Lbggaeklwlqlr-Pjmfaagn (EXCEDRIN MIGRAINE) 250-250-65 mg per tablet Take [...] by mouth twice daily as needed. From [facility]. lactulose 10 gram/15 mL (15 mL) soln Take 10 g by mouth daily at bedtime. [facility]. No current facility-administered medications for this [...] deformities, ulcers, calluses, normal distal pulses, and sensitiveto 10 gm monofilament Assessment and Plan 1. [...] V49.81, ICD10: Z78.0 - DXA-AXIAL SKELETON Dajuan Eric MD documented in [facility]Mer[facility]03-27-2023 Miscellaneous Notes* Telephone Encounter - Peggy Holcomb LPN - 09/05/2022 3:42 PM EDT Last office visit: 05/25/22 Next appointment scheduled: 09/23/22 Last labs: 11/17/21 last lipid panel * Telephone Encounter - Mahi Armstrongentine - 09/05/2022 10:54 AM EDT Patient has been identified by name and date of : Yes Requested Prescriptions Pending Prescriptions Disp Refills rosuvastatin (CRESTOR) 10 mg tablet 90 tablet 3 Sig: Take 1 tablet by mouth daily at bedtime. RX INSTRUCTIONS: Please send to [facility] Patient aware RX will be sent to pharmacy. No need to notify patient. Mahi Glynn documented in this encounterMer[facility]03-10-[address] Patel [facility] August 19, 2022 9:51pm Note Date/Time August 19, 2022 8:2 9pm [facility] Medical Records Department [address] [place] [address] Emergency Department Summary 08/19/22 MR#: [id number] Acct: [id number] Name: EMBER MALDONADO Rep #:[id number] : 1950 72 From: Rebeca ISBELL PCP: Dr. Dajuan Eric MD Status:R EG ER Location: ED HPI <SUKHI Quevedo - Last Filed: 08/19/22 20:49> HPI - Female History of Present Illness Chief Complaint: Complaint Narrative Narrative: 72-year-old female has had 5 days of frequency and hematuria. She developed suprapubic and bilateral low back pain today which prompted her to come in. No fever chills or nausea or vomiting. She does have remote history of kidney stones. She is on aspirin 81 mg, no blood thinners. PFSH <SUKHI Quevedo - Last Filed: 08/19/22 20:49> [facility] Medical History ADD (attention deficit disorder) Arthritis Asthma Atrial fibrillation Chronic fatigue syndrome Diabetes Fibromyalgia Folic acid deficiency GERD (gastroesophageal reflux disease) Hypertension Hypothyroidism IBS (irritable bowel syndrome) Insomnia Intractable back pain Osteopenia SOB (shortness of breath) Type 2 diabetes mellitus without complication, with long-term current use of insulin Home Medications aspirin 81 mg tablet,delayed release 81 mg PO DAILY 01/13/22 [History Last Taken Unknown] cholecalciferol (vitamin D3) 125 mcg (5,000 unit) capsule 125 mcg PO DAILY 01/13/22 [History Last Taken Unknown] diphenoxylate-atropine 2.5 mg-0.025 mg tablet (Lomotil) 1 tab PO QHS PRN 01/13/22 [History Last Taken Unknown] famotidine 20 mg tablet 20 mg PO BID 01/13/22 [History Last Taken Unknown] furosemide 40 mg tablet 40 mg PO BID 01/13/22 [History Last Taken Unknown] gabapentin 300 mg capsule 300 mg PO TID 01/13/22 [History Last Taken Unknown] levomefolate calcium 7.5 mg tablet (L-Methylfolate) 7.5 mg PO DAILY 01/13/22 [History Last Taken Unknown] methylphenidate HCl 20 mg tablet 20 mg PO DAILY 01/13/22 [History Last Taken Unknown] montelukast 10 mg tablet 10 mg PO QPM 01/13/22 [History Last Taken Unknown] potassium chloride 20 mEq tablet,extended release 20 meq PO DAILY 01/13/22 [History Last Taken Unknown] selenium 200 mcg tablet 200 mcg PO DAILY 01/13/22 [History Last Taken Unknown] spironolactone 25 mg tablet 25 mg PO DAILY 01/13/22 [History Last Taken Unknown] tamsulosin 0.4 mg capsule 0.4 mg PO DAILY 01/13/22 [History Last Taken Unknown] thyroid (pork) 60 mg tablet ([employer] TRAPPER Thyroid) 60 mg PO DAILY 01/13/22 [History Last Taken Unknown] tizanidine 2 mg tablet 2 mg PO Q6H PRN 01/13/22 [History Last Taken Unknown] trazodone 50 mg tablet 50 mg PO DAILY 01/13/22 [History Last Taken Unknown] verapamil 120 mg tablet 120 mg PO BID 01/13/22 [History Last Taken Unknown] [id number] 18 mg-10 mg-45 mg-5 mg-250 mg tablet (B Complex w-Vit C) 1 tab PO DAILY 01/13/22 [History Last Taken Unknown] naloxegol 25 mg tablet (Movantik) 25 mg PO QAM #30 tabs 06/09/22 [Rx Last Taken Unknown] dicyclomine 20 mg tablet 20 mg PO BID #60 tabs 08/04/22 [Rx Last Taken Unknown] nitrofurantoin monohydrate/macrocrystals 100 mg capsule 100 mg PO Q12 #10 CAPSULES 08/19/22 [Rx Last Taken Unknown] Allergy/AdvReac Type Severity Reaction Status Date / Time Sulfa (Sulfonamide Allergy Unknown unknown Verified 10/13/21 16:27 Antibiotics) Family History Other Cancer Diabetes Heart disease Surgical History Hx of hysterectomy Hx of shoulder surgery Social History household members: none Smoking Status: Former smoker alcohol intake: former substance use type: does not use ROS <SUKHI Quevedo - Last Filed: 08/19/22 20:49> ROS ED ROS Narrative Constitutional: Negative for fever, chills, malaise. CVS: Negative for palpitations, chest pain, syncope. Respiratory: Negative for shortness of breath, cough. GI: Positive for abdominal pain. Negative for nausea, vomiting. Diarrhea, constipation, melena, hematochezia. : Positive for hematuria or frequency. Skin: Negative for rash, abscess, or wound. Musc: Negative for joint pain, swelling, trauma. EXAM <SUKHI Quevedo - Last Filed: 08/19/22 20:49> Physical Exam Narrative Exam Narrative: CONST: Patient sitting in no acute distress. EYES: Normal inspection. NECK: Normal inspection. RESP: No respiratory distress, CTAB. CVS: Regular rate and rhythm, no murmur, no gallop. ABD: Soft with suprapubic tenderness, no guarding or rebound, nondistended, no hepatosplenomegaly. Back: Normal inspection, no CVA tenderness. SKIN: Color normal, no rash, warm, dry, intact. EXTREMITIES: Normal appearance, no pedal edema. NEURO: Oriented x4. PSYCH: Normal affect. Const Vital Signs: 08/19/22 20:20 08/19/22 20:22 Temperature 97.2 F L 97.2 F L Temperature Source Oral Oral Pulse Rate 89 89 Respiratory Rate 16 16 Blood Pressure 133/58 H 133/58 H Blood Pressure Mean 83 83 Pulse Ox 95 95 Oxygen Delivery Method Room Air Room Air <Dr. Alejandro Patel MD - Last Filed: 08/19/22 21:51> Physical Exam Const Vital Signs: 08/19/22 20:20 08/19/22 20:22 Temperature 97.2 F L 97.2 F L Temperature Source Oral Oral Pulse Rate 89 89 Respiratory Rate 16 16 Blood Pressure 133/58 H 133/58 H Blood Pressure Mean 83 83 Pulse Ox 95 95 Oxygen Delivery Method Room Air Room Air MDM <SUKHI Quevedo - Last Filed: 08/19/22 20:49> [facility] Narrative Medical decision making narrative: Patient is having frequency and hematuria and today developed suprapubic and bilateral low back pain. She appears well and nontoxic with normal vital signs. On exam heart is regular with no murmurs. Lungs clear. Abdominal exam remarkable for mild suprapubic tenderness but no peritoneal signs. She has no CVA tenderness. Urinalysis is pending and case was signed over to my attending. I have personally performed a face to face assessment of the patient and have reviewed the INOCENCIO Note. I performed a substantive portion of the visit including all aspects of the following. My fitzgerald findings include: History is remarkable for hematuria, discomfort with urination and bilateral lowback pain. She denies flank pain. She denies documented fever or subjective fever. She denies shaking chills. She denies nausea or vomiting. She does have history of diverticulosis and diverticulitis. She denies history of renal ureterolithiasis. Exam is patient appears in no distress. Vital signs reveal slight elevated blood pressure and temperature 97.2. HEENT was remarkable for poor dentition. Heart is regular. There is no murmur, gallop or rub. Lungs are clear auscultation. Abdomen reveals minimal tenderness suprapubic area. There is no right or left CVA tenderness. No dermatologic lesions noted. No evidence of abdominal wall trauma. Medical Decision Making patient presents with urinary tract symptoms. Will obtain UA. Patient did give a urine specimen. Urine has straw-colored appearance. Appears clear. Other additions or changes: [None] Lab Data Labs: Laboratory Results - last 24 hr 08/19/22 20:37 Urine Color Yellow Urine Clarity Clear Urine pH 7.0 Ur Specific [place] 1.010 Urine Protein 30 H Urine Glucose (UA) 1000 H Urine Ketones Negative Urine Occult Blood 250 H Urine Nitrite Negative Urine Bilirubin Negative Urine Urobilinogen Normal Ur Leukocyte Esterase 500 H Urine RBC 0-5 SEEN Urine WBC 0-5 SEEN Ur Squamous Epith Cells 0 SEEN Urine Bacteria RARE Urine Mucus 0 SEEN <Dr. Alejandro Patel MD - Last Filed: 08/19/22 21:51> MDM MDM Narrative Medical decision making narrative: AndPatient is having frequency and hematuria and today developed suprapubic and bilateral low back pain. She appears well and nontoxic with normal vital signs. On exam heart is regular with no murmurs. Lungs clear. Abdominal exam remarkable for mild suprapubic tenderness but no peritoneal signs. She has no CVA tenderness. Urinalysis is pending and case was signed over to my attending. I have personally performed a face to face assessment of the patient and have reviewed the INOCENCIO Note. I performed a substantive portion of the visit including all aspects of the following. My fitzgerald findings include: History is remarkable for hematuria, discomfort with urination and bilateral lowback pain. She denies flank pain. She denies documented fever or subjective fever. She denies shaking chills. She denies nausea or vomiting. She does have history of diverticulosis and diverticulitis. She denies history of renal ureterolithiasis. Exam is patient appears in no distress. Vital signs reveal slight elevated blood pressure and temperature 97.2. HEENT was remarkable for poor dentition. Heart is regular. There is no murmur, gallop or rub. Lungs are clear auscultation. Abdomen reveals minimal tenderness suprapubic area. There is no right or left CVA tenderness. No dermatologic lesions noted. No evidence of abdominal wall trauma. Medical Decision Making patient presents with urinary tract symptoms. Will obtain UA. Patient did give a urine specimen. Urine has straw-colored appearance. Appears clear. Urine is positive for blood, leukoesterase or nitrites. There is glucose. There is rare bacteria with 0-5 WBCs. Since patient has frequency this may result in a unimpressive urinalysis. Since patient has allergy to sulfa with normal renal function we will treat with Macrobid. Will assess BG T to determine if blood work is needed. Other additions or changes: [None] Lab Data Labs: Laboratory Results - last 24 hr 08/19/22 20:37 Urine Color Yellow Urine Clarity Clear Urine pH 7.0 Ur Specific [place] 1.010 Urine Protein 30 H Urine Glucose (UA) 1000 H Urine Ketones Negative Urine Occult Blood 250 H Urine Nitrite Negative Urine Bilirubin Negative Urine Urobilinogen Normal Ur Leukocyte Esterase 500 H Urine RBC 0-5 SEEN Urine WBC 0-5 SEEN Ur Squamous Epith Cells 0 SEEN Urine Bacteria RARE Urine Mucus 0 SEEN Discharge Plan Triage Chief Complaint: Complaint ED Midlevel Provider: Rebeca Prescott ED Provider: Alejandro Patel Dx/Rx/DC Orders Clinical Impression: Urinary tract infection, Hypertension, Hypothyroidism Instructions: ED Cystitis Female Adult Prescriptions: New nitrofurantoin monohyd/m-cryst [nitrofurantoin monohyd/m-cryst] 100 mg capsule 100 mg PO Q12 Qty: 10 0RF No Action trazodone 50 mg tablet 50 mg PO DAILY tamsulosin 0.4 mg capsule 0.4 mg PO DAILY montelukast 10 mg tablet 10 mg PO QPM thyroid (pork) [[employer]ED[employer] CONTROL TRAPPER Thyroid] 60 mg tablet 60 mg PO DAILY furosemide 40 mg tablet 40 mg PO BID spironolactone 25 mg tablet 25 mg PO DAILY tizanidine 2 mg tablet 2 mg PO Q6H PRN verapamil 120 mg tablet 120 mg PO BID diphenoxylate-atropine [Lomotil] 2.5-0.025 mg tablet 1 tab PO QHS PRN methylphenidate HCl 20 mg tablet 20 mg PO DAILY aspirin 81 mg tablet,delayed release (DR/EC) 81 mg PO DAILY cholecalciferol (vitamin D3) 125 mcg (5,000 unit) capsule 125 mcg PO DAILY selenium 200 mcg tablet 200 mcg PO DAILY famotidine 20 mg tablet 20 mg PO BID B Complex w-Vit C 36-80-95-5-250 mg tablet 1 tab PO DAILY levomefolate calcium [L-Methylfolate] 7.5 mg tablet 7.5 mg PO DAILY gabapentin 300 mg capsule 300 mg PO TID potassium chloride 20 mEq tablet extended release 20 meq PO DAILY Movantik 25 mg tablet 25 mg PO QAM Qty: 30 0RF Rx Instructions: must be taken on empty stomach; no food 1 hr after or 2-3 hrs before dose dicyclomine 20 mg tablet 20 mg PO BID Qty: 60 2RF Primary Care Provider: Dajuan Eric Referrals: Dajuan Eric MD [Primary Care Provider] - 3-5 Days if not improving Disposition Disposition: Home, Self Care What to do if you have Problems For any increased pain, shortness of breath, bleeding, nausea or vomiting, chestpain, or any unexpected problems, contact your Primary Care Provider. Call [facility] ([phone]) or report to the closest Emergency Room. Call 911 if necessary. 08/19/222048 <Electronically signed by Rebeca ISBELL> Cosigner Signature (if applicable): 08/19/222150 <Electronically signed by Gustavo WELSH> CC: Dr. Dajuan Eric MD ~ Signed [facility] Work Phone: 1(143) 820-185802-26-2023 History of Past illness Narrative* Problem Noted Date Diagnosed Date Resolved Date At risk for stroke 08/07/2022 4 Anticoagulant medication declined by patient 3 09/16/2023 documented as of this encounter (statuses as of 09/16/2023) [facility] History of Past illness Narrative* Problem Noted Date Diagnosed Date Resolved Date At risk for stroke 08/07/2022 4 Anticoagulant medication declined by patient 3 09/16/2023 documented as of this encounter (statuses as of 09/18/2023) [facility] History of Past illness Narrative* Problem Noted Date Diagnosed Date Resolved Date At risk for stroke 08/07/2022 4 Anticoagulant medication declined by patient 3 09/16/2023 documented as of this encounter (statuses as of 09/22/2023) [address]26-2023 History of Past illness Narrative* Problem Noted Date Diagnosed Date Resolved Date At risk for stroke 08/07/2022 4 Anticoagulant medication declined by patient 3 09/16/2023 documented as of this encounter (statuses as of 09/29/2023) [facility] Miscellaneous Notes* Telephone Encounter - Kayce Jules APRN.CNP - 07/18/2022 12:32 PM EST Refilled in another encounter Kayce Jules APRN.CNP * Telephone Encounter - Clive Johnson Ma - 07/18/2022 12:03 PM EST She would like to restart due to insurance change. * Telephone Encounter - Kayce Jules APRN.CNP - 07/18/2022 8:28 AM EST Patient had stopped Jardiance due to cost, noted in March. Is she going back on this? Kayce Jules APRN.CNP * Telephone Encounter - Clive Johnson Ma - 07/15/2022 10:12 AM EST Patient's request for medication is as follows: Requested Prescriptions Pending Prescriptions Disp Refills empagliflozin (JARDIANCE) 10 mg tablet 30 tablet 5 Sig: Take 1 tablet by mouth once daily. Take 1 tablet once daily in the morning Please approve the above prescription(s) to electronically send to pharmacy. Clive Johnson Ma * Telephone Encounter - Beryl Cooper Pss - 07/15/2022 9:32 AM EST empagliflozin (JARDIANCE) 10 mg tablet (Discontinued) 30 tablet 5 02/18/2022 04/06/2022 Sig: Take 1 tablet by mouth once daily. Take 1 tablet once daily in the morning Sent to pharmacy as: empagliflozin (JARDIANCE) 10 mg tablet Class: Normal Route: ORAL Patient has changed insurance and would like Jardiance prescribed for her again. Please send to the [facility] in [place]. documented in [facility] Miscellaneous Notes* Telephone Encounter - Bernadette Lora LPN - 07/14/2022 4:55 PM EST Patient has been identified by name and date of : Yes, Patient phones for refill(s): Requested Prescriptions Pending Prescriptions Disp Refills PREDATOR CONTROL TRAPPER THYROID 60 mg tablet 90 tablet 1 [...] Please advise. Thank you. Bernadette Lora LPN * Telephone Encounter - Adrianne Avery - 07/14/2022 2:45 PM EST Patient has been identified by name and date of : Yes Requested Prescriptions Pending Prescriptions Disp Refills PREDATOR CONTROL TRAPPER THYROID 60 mg tablet 90 tablet 1 Sig: Take 1 tablet by mouth once daily. RX INSTRUCTIONS: Patient aware RX will be sent to pharmacy. No need to notify patient. Adrianne Avery documented in this encounterMercy Health Anderson Hospital01-23-2023 Miscellaneous Notes* Telephone Encounter - Clive Johnson Ma - 07/04/2022 9:56 AM EST GUNNAR: 05/25/2022 Last refill: 03/25/2022 QTY: 270 Refills: 2 * Telephone Encounter - Camille Avery - 07/04/2022 8:57 AM EST Patient stated she is out of medication. Wants to know if rx can be sent today. * Telephone Encounter - Camille Avery - 07/04/2022 8:56 AM EST Patient has been identified by name and date of : Yes Requested Prescriptions Pending Prescriptions Disp Refills gabapentin (NEURONTIN) 300 mg capsule 270 capsule 2 Sig: Take 2 capsules by mouth three times daily AND 3 capsules daily at bedtime. Do all this for 90days. RX INSTRUCTIONS: Patient aware RX will be sent to pharmacy. No need to notify patient. Camille Cao Pss documented in this encounterMercy Health Anderson Hospital12-14-2022 Instructions* Patient Instructions* Dajuan Eric MD - 05/25/2022 11:44 AM EST BLOOD WORK TODAY. SEE JACKIE ENT. documented in this encounterMercy Health Anderson Hospital12-14-2022 History of Present illness Narrative* Dajuan Eric MD - 05/25/2022 11:19 AM EST This note was created using [employer]. Subjective Ember Maldonado is a 72 year old female. She's been having recurrent nosebleeds for the past month, associated with headaches. She did not go to the ER, but she reported seeing Dr. Rdz at some point whorecommended she increase fluids. She was here with [...] Hyperlipidemia Chronic Diastolic Chf (Congestive Heart Failure) ([facility]) Mild Intermittent Asthma Without Complication [...] the tongue every 5 minutes as needed. PREDATOR CONTROL TRAPPER THYROID 60 mg Take 1 tablet by [...] Take 1,200 mg by mouth twice daily. Iuguabg-Yveoahcncouhe-Zucyicjt (EXCEDRIN MIGRAINE) 250-250-65 mg per tablet Take [...] Take 1/2 tablet in the evening. Dajuan Eric MD documented in this encounterMercy Health Anderson Hospital12-02-2022 Miscellaneous Notes* Telephone Encounter - Clive Johnson Ma - 05/13/2022 1:01 PM EST GUNNAR: 04/06/2022 Last refill: 10/05/2021 QTY: 30 Refills: 5 Patient's request for medication is as follows: Requested Prescriptions Pending Prescriptions Disp Refills montelukast (SINGULAIR) 10 mg tablet 30 tablet 5 Sig: Take 1 tablet by mouth daily at bedtime. Please approve the above prescription(s) to electronically send to pharmacy. Clive Johnson Ma documented in this encounterMercy Health Anderson Hospital10-26-2022 History of Present illness Narrative* Dajuan Eric MD - 04/06/2022 9:29 AM EDT This note was created using [employer]. Subjective Ember Maldonado is a 71 year old female. She was monitoring her glucose which was more or less stable. She stopped Jardiance due to cost. She was taking Verapamil SR 120 mg one and one half tablet daily reportedly per cardiology TECHNICAL SERVICES COORDINATOR. Her hypertension was controlled. Her asthma was [...] Neuropathy, Without Long-Term Current Use of Insulin ([facility]) Lumbar Radiculopathy Cervical Radiculopathy Dizziness, Nonspecific Falls Frequently Hypothyroidism Paf (Paroxysmal Atrial Fibrillation) ([facility]) Mixed Hyperlipidemia Chronic Diastolic Chf (Congestive Heart Failure) ([facility]) Mild Intermittent Asthma Without Complication [...] the tongue every 5 minutes as needed. PREDATOR CONTROL TRAPPER THYROID 60 mg Take 1 tablet by [...] Take 1,200 mg by mouth twice daily. Egmocxl-Fgnbburhhlsli-Ioxxmrzf (EXCEDRIN MIGRAINE) 250-250-65 mg per tablet Take 1 tablet by mouth every 6 hours as needed for pain. traZODone (DESYREL) 100 mg tablet Take 150 mg by mouth daily at bedtime. 150- 200mg at bedtime diphenoxylate-atropine (LOMOTIL) 2.5-0.025 mg per tablet Take 1 tablet by mouth four times daily asneeded for diarrhea for up to 30 days. [...] F) Resp 14 Ht 160 cm (5' 2.99) Wt 69.9 kg (154 lb) BMI 27.29 [...] neuropathy, without long-term current use of insulin ([facility]) - ICD9: 250.60, 357.2, ICD10: E11.40 (primary diagnosis) Controlled. - HEMOGLOBIN A1C (POC) - BASIC METABOLIC PNL - HGB A1C 2. PAF (paroxysmal atrial fibrillation) ([facility]) - ICD9: 427.31, ICD10: I48.0 Medication list updated as patient is taking. - VERAPAMIL ER (SR) 120 MG TABLET,EXTENDED RELEASE - CBC 3. Chronic diastolic CHF (congestive heart failure) ([facility]) - ICD9: 428.32, 428.0, ICD10: I50.32 Stable. [...] ICD10: F41.9, F32.A [facility]. Dajuan Eric MD documented in this encounterMercy Health Anderson Hospital10-24-2022 Miscellaneous Notes* Telephone Encounter - Beryl Cooper [facility] - 04/04/2022 11:56 AM EDT Pharmacy verified in [facility] Patient has been identified by name [...] advise. Beryl Cooper Pss documented in this encounterMercy Health Anderson Hospital10-24-2022 Miscellaneous Notes* Telephone Encounter - Frances Chavez Pss - 04/04/2022 11:39 AM EDT Patient has been identified by name and date of : Yes Requested Prescriptions Pending Prescriptions Disp Refills tamsulosin (FLOMAX) 0.4 mg 90 capsule 3 Sig: Take 1 capsule by mouth once daily. RX INSTRUCTIONS: Patient aware RX will be sent to pharmacy. No need to notify patient. Frances Chavez Pss documented in this encounterMercy Health Anderson Hospital10-14-2022 Miscellaneous Notes* Telephone Encounter - Bernadette Lora LPN - 03/25/2022 3:41 PM EDT Patient has been identified by name and date of : Yes Patient phones for refill(s): Requested Prescriptions Pending Prescriptions Disp Refills gabapentin (NEURONTIN) 300 mg capsule 270 capsule 2 Sig: Take 2 capsules by mouth three times daily AND 3 capsules daily at bedtime. Do all this for 90days. Date of last office visit in primary care: 01/04/2022 6 month follow-up: 04/06/2022 Last 2 Encounter Wt Readings: Date: Wt: 01/04/2022 71.7 kg (158 lb) 10/23/2021 71.2 kg (157 lb) Previous labs/tests for medication: Not applicable Please advise. Thank you. Bernadette Lora LPN * Telephone Encounter - Beryl Aragon - 03/25/2022 3:15 PM EDT Patient has been identified by name and [...] daily at bedtime. Do all this for 90days. Please review and advise. Beryl Aragon documented in this encounterMercy Health Anderson Hospital09-15-2022 Miscellaneous Notes* Telephone Encounter - Bernadette Lora LPN - 02/24/2022 4:53 PM EDT Patient lost the bottle of Nitro in [...] Please advise. Thank you. Bernadette Lora LPN * Telephone Encounter - Amber Gibson [facility] - 02/24/2022 4:18 PM EDT Patient has been identified by name and date of : Yes Requested Prescriptions Pending Prescriptions Disp Refills nitroglycerin sublingual (NITROSTAT) 0.4 mg SL tablet 25 tablet 2 Sig: Dissolve 1 tablet under the tongue every 5 minutes as needed. RX INSTRUCTIONS: Patient aware RX will be sent to pharmacy. No need to notify patient. Amber Gibson [facility] documented in this encounterMercy Health Anderson Hospital09-15-2022 Miscellaneous Notes* Telephone Encounter - Amber Gibson [facility] - 02/24/2022 4:22 PM EDT Patient would like Dr. Eric know she can no longer afford JARDIANCE documented in this encounterMercy Health Anderson Hospital09-08-2022 Miscellaneous Notes* Telephone Encounter - Bernadette Lora LPN - 02/17/2022 2:33 PM EDT Patient has been identified by name and [...] you. Bernadette Lora LPN documented in this encounterMercy Health Anderson Hospital09-08-2022 Miscellaneous Notes* Telephone Encounter - Bernadette Lora LPN - 02/17/2022 2:28 PM EDT [facility] Nitro & test strips to Patient on 01/06/2022. Patient has refills on test strips. Patient has been identified by name and date of : Yes Patient phones for refill(s): Requested Prescriptions Pending Prescriptions Disp Refills PREDATOR CONTROL TRAPPER THYROID 60 mg 90 tablet 0 Sig: [...] you. Bernadette Lora LPN documented in this encounterMercy Health Anderson Hospital07-28-2022 Miscellaneous Notes* Telephone Encounter - Beryl Aragon - 01/06/2022 5:14 PM EDT Pt scheduled future appt in hopes to get moved up sooner. She said she sometimes feels as though her BP and heart rate go up and down a lot. She is fatigued a lot just getting out to an appt. She wants to be sure Taylor Alfonso was aware of how she has been feeling. documented in this encounterMercy Health Anderson Hospital07-26-2022 Instructions* Patient Instructions* Kayce Jules APRN.CNP - 01/04/2022 11:40 AM EDT Recombinant shingles vaccine (Shingrix) is recommended; 2 doses 2-6 months apart. Please read information, check with your insurance, and schedule vaccination at your local pharmacy. A prescription is not required. If you are certain you have coverage to receive this vaccine in the office, we can schedule this for you. documented in this encounterMercy Health Anderson Hospital07-26-2022 History of Present illness Narrative* Kayce Older, BAG WORKER.TECHNICAL SERVICES COORDINATOR - 01/04/2022 11:29 AM EDT CC: Patient presents with: Recheck: routine follow up HPI Ember Maldonado is a 71 year old female who presents today for above. Diabetes: worsening control. She is not on diabetic medications. Previously took Metformin but madeher very ill. Home blood sugar readings: patient does not have meter to check Reports increased thirst, urinary frequency, increased hunger and chronic numbness/tingling pain inBLE. Denies nocturia, fatigue, unintentional weight loss, blurred [...] complication, without long-term current use of insulin ([facility]) 04/21/2021 PAST SURGICAL HISTORY Procedure Laterality Date [...] 1 tablet by mouth daily at bedtime. PREDATOR CONTROL TRAPPER THYROID 60 mg Take 1 tablet by [...] Take 1,200 mg by mouth twice daily. Ifcndas-Timahsohkopgw-Chjtylhb (EXCEDRIN MIGRAINE) 250-250-65 mg per tablet Take 1 tablet by mouth every 6 hours as needed for pain. traZODone (DESYREL) 100 mg tablet Take 150 mg by mouth daily at bedtime. 150- 200mg at bedtime aspirin, enteric coated (ASPIRIN, ENTERIC [...] 2 Puffs as instructed every 6 hours asneeded for wheezing/shortness of breath. diphenoxylate-atropine (LOMOTIL) 2.5-0.025 mg per tablet Take 1 tablet by mouth four times daily asneeded for diarrhea for up to 30 days. [...] 88 Resp 16 Ht 160.7 cm (5' 3.25) Wt 71.7 kg (158 lb) BMI 27.77 [...] the short term and CKD in the remote computer terminal operator. Risks: Possible side effects were discussed including fungal infection and UTI. Possible interactions: n/a. Warnings: lower limb amputations.Approved use or off label use: n/a. Options: n/a. Cost: high, may be prohibitive. Prior approval may be needed. 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 - Blood glucose monitoring on a once a day schedule - Follow up in 3 months as scheduled, sooner should any other issues arise. - Discussed diabetic education issues of custodial diabetic complications, hypoglycemic symptoms, hyperglycemic symptoms, diet [...] plan. Kayce Jules APRN.GLO documented in this encounterMercy Health Anderson Hospital07-19-2022 Miscellaneous Notes* Telephone Encounter - Clive Johnson Ma - 12/28/2021 12:35 PM EDT GUNNAR: 10/23/2021 flomax Last refill: 09/29/2021 QTY: 90 Refills: 0 aldactone Last refill: 09/29/2021 QTY: 90 Refills: 0 documented in this encounterMercy Health Anderson Hospital07-06-2022 Miscellaneous Notes* Telephone Encounter - Maddison Blanc - 12/15/2021 2:19 PM EDT Spoke with patient who informed me that she had not been experiencing rectal bleeding. I informed her that there was also a consultation to speak with a hims clerk in her chart. The patient stated that she would prefer to speak with them instead of general surgery at this time. I informed her that [facility] no longer has gastro providers in the facility. The patient stated that she prefers to stay in [place] as she has to take public transportation. I informed her that I would send thereferral over to [facility]. The patient agreed and thanked me. Referral sent to [facility] * Telephone Encounter - Asim Emilie - 12/15/2021 1:27 PM EDT Patient is needing consult for rectal bleeding . Patient is not appropriate for open access. Pleaseschedule office consult Asim Phan documented in this encounterMercy Health Anderson Hospital06-09-2022 Miscellaneous Notes* Telephone Encounter - Anne Jones - 11/18/2021 8:54 AM EDT Pt. notified of test results as per doctors interpretation. Pt having stress test on 11/24 at [facility]. Await results. Anne Jones * Telephone Encounter - Anne Jones - 11/18/2021 8:52 AM EDT ----- Message from Taylor Alfonso APRN.CNP sent at 11/18/2021 8:03 AM EDT ----- Please call patient and notify them of results. Cholesterol with much better control LDL (bad cholesterol) 91 (previously 175). Kidney function, electrolytes and liver function are stable. Thank you! documented in this encounterMercy Health Anderson Hospital06-09-2022 Miscellaneous Notes* Result QuickNote - Taylor Alfonso APRN.CNP - 11/18/2021 8:03 AM EDT Please call patient and notify them of results. Cholesterol with much better control LDL (bad cholesterol) 91 (previously 175). Kidney function, electrolytes and liver function are stable. Thank you! documented in this encounterMercy Health Anderson Hospital05-19-2022 Miscellaneous Notes* Telephone Encounter - Ondina Matta LPN - 10/28/2021 1:14 PM EDT Images from the original note were not included. Iman Mendoza APRN.TECHNICAL SERVICES COORDINATOR You 42 minutes ago (12:30 PM) Patient had less that 1% burden of A. Fib on her recent monitor results. Stress Echo ordered due toongoing shortness of breath and fatigue for further ischemic and heart failure evaluation. Thanks, Iman Mendoza, JOURDAN.TECHNICAL SERVICES COORDINATOR Message text Called and gave Jaylin message, states that they will keep order as is and nurses will assess as test is done and notify of updates. Ondina Matta LPN * Telephone Encounter - Ondina Matta LPN - 10/28/2021 10:54 AM EDT Dana called to clarify diagnosis for stress echo. They are unable to do test with chronic a-fib but needs nuclear instead if chronic a-fib. Please advise. Ondina Matta LPN documented in this encounterMercy Health Anderson Hospital05-09-2022 Miscellaneous Notes* Telephone Encounter - Dajuan Eric MD - 10/18/2021 1:17 PM EDT ASSESSMENT/PLAN: 1. Screening for colon cancer - ICD9: V76.51, ICD10: Z12.11 - FECAL OCCULT BLOOD TEST Dajuan Eric MD * Telephone Encounter - Bernadette Lora LPN - 10/18/2021 12:29 PM EDT Patient dropped off iFobt sample, order pending. Bernadette Lora LPN documented in this encounterMercy Health Anderson Hospital05-09-2022 History of Present illness Narrative* Maci Alegria PA-C - 10/18/2021 12:34 PM EDT This note was created using [employer]. Subjective Ember Maldonado is a 71 year old female. HPI Patient presents with multiple complaints. First she would like her sutures located on her right lower leg. On October she was seen at [facility] and had sutures placed. She just 1to make sure it was not getting infected. [...] complication, without long-term current use of insulin ([facility]) 04/21/2021 Current Outpatient Medications Medication Sig Dispense Refill montelukast (SINGULAIR) 10 mg tablet Take 1 tablet by mouth daily at bedtime. 30 tablet 5 PREDATOR CONTROL TRAPPER THYROID 60 mg Take 1 tablet by mouth once daily. 90 tablet 0 spironolactone (ALDACTONE) 25 mg tablet Take 1 tablet by mouth once daily. 90 tablet 0 tamsulosin (FLOMAX) 0.4 mg Take 1 capsule by mouth once daily. 90 capsule 0 albuterol HFA (VENTOLIN HFA) 90 mcg/actuation inhaler Inhale 2 Puffs as instructed every 6 hours asneeded for wheezing/shortness of breath. 1 Each 2 [...] Take 1,200 mg by mouth twice daily. Agpljyu-Ufmtrkxipcqgj-Rfbfhddy (EXCEDRIN MIGRAINE) 250-250-65 mg per tablet Take 1 tablet by mouth every 6 hours as needed for pain. traZODone (DESYREL) 100 mg tablet Take 150 mg by mouth daily at bedtime. 150- 200mg at bedtime aspirin, enteric coated (ASPIRIN, ENTERIC [...] 1 tablet by mouth four times daily asneeded for diarrhea for up to 30 days. Cholecalciferol, Vitamin D3, 125 mcg (5,000 unit) cap Take 1 capsule by mouth once daily. (Patient not taking: Reported on 10/07/2021 ) Current Facility-Administered Medications Medication Dose Route Frequency Provider Last Rate Last Admin perflutren lipid microspheres 1.3 mL in NaCl (PF) 0.9% 10 mL injection (DEFINITY) INTRAVENOUS DIRECTED PRN Taylor Alfonso APRN.CNP sodium chloride 0.9 % (flush) 10 mL (BD POSIFLUSH) 10 mL INTRAVENOUS DIRECTED PRN Taylor Alfonso APRN.GLO PAST SURGICAL HISTORY Procedure Laterality Date APPENDECTOMY [...] kg (158 lb 12.8 oz) SpO2 98% BMI27.26 kg/m Physical Exam Vitals reviewed. Constitutional: Appearance: [...] with sutures present in the anterior mid malagon. No sign of infection. No redness or [...] removed. Maci Alegria PA-C documented in this encounterMercy Health Anderson Hospital05-09-2022 History of Present illness Narrative* Autumn Wall RT(R) - 10/18/2021 12:10 PM EDT Radiology Service Progress Note PATIENT NAME: Ember Maldonado DATE OF SERVICE: October 18, 2021 TIME: 12:04 PM PATIENT IDENTITY VERIFICATION COMPLETED USING TWO (2) IDENTIFIERS: Name and Date of confirmedby patient verbally. FALL SCREENING: Has the patient had 2 falls in the last year or 1 fall with injury or currently using an Ambulatory Assistive Device (Walker, Cane, Wheelchair, Crutches, etc.)? No PATIENT GENDER DATA: Female. status: : No status: NO. PATIENT RELEVANT IMPLANT DATA REVIEWED: Not Applicable RADIOLOGY DEPARTMENT: General X-ray: Exam(s) Completed: Upper Extremity X- Ray(s): Hand, left PERIPHERAL IV DATA: Not applicable SIGNED BY: RT Vasyl(R) October 18, 2021 12:04 PM documented in this encounterMercy Health Anderson Hospital05-03-2022 Miscellaneous Notes* Telephone Encounter - Honey Smith LPN - 10/12/2021 9:10 AM EDT Orders for Vestibular therapy Faxed to [facility] per patient request. Patient update via [employer]. Honey Smith LPN documented in this encounterMercy Health Anderson Hospital04-28-2022 History of Present illness Narrative* Judy Lu RT(R) - 10/07/2021 10:00 AM EDT Radiology Service Progress Note PATIENT NAME: Ember Maldonado DATE OF SERVICE: October 07, 2021 TIME: 9:59 AM PATIENT IDENTITY VERIFICATION COMPLETED USING TWO (2) IDENTIFIERS: Name and Date of confirmedby patient verbally. FALL SCREENING: Has the patient had 2 falls in the last year or 1 fall with injury or currently using an Ambulatory Assistive Device (Walker, Cane, Wheelchair, Crutches, etc.)? No PATIENT GENDER DATA: Female. status: : No status: NO. PATIENT RELEVANT IMPLANT DATA REVIEWED: Yes RADIOLOGY DEPARTMENT: General X-ray: Exam(s) Completed: Spine X-Ray(s): Cervical AP / LAT / OBL PERIPHERAL IV DATA: Not applicable SIGNED BY: RT Paulina(R) October 07, 2021 9:59 AM documented in this encounterMercy Health Anderson Hospital04-28-2022 History of Present illness Narrative* Emiliana Goldman APRN.TECHNICAL SERVICES COORDINATOR - 10/07/2021 9:00 AM EDT Images from the original note were not included. [facility] [place] New Patient visit New Patient Consultation October 07, 2021 HPI: Ms. Maldonado presents today secondary to issues of dizziness. [...] down or lay down. Occurs once to multipletimes per day. States it depends on how [...] with stability. This broke when moving to [place] from [place] and no longer uses. No workup for [...] on a table. She did go to [facility] ED. Had dizziness for a few weeks following concussion. Denies COVID or other infection at onset of dizziness. Has had two falls in the past two weeks due to the dizziness. States she got up quickly. Sometimes feels lightheaded but not all the time. Notes weakness to the left arm and leg. Reports difficulty with speech; states she will forget whatshe is talking about. Did have a period [...] deficit disorder) Anxiety and depression Atrial fibrillation ([facility]) 08/30 Cellulitis of lower extremity 2019 Chronic fatigue syndrome Dizziness, nonspecific 09/07/2021 Falls frequently 09/07/2021 Fibromyalgia Folic acid deficiency GERD (gastroesophageal reflux disease) Hypothyroidism Insomnia Intractable back pain Osteopenia Type 2 diabetes mellitus without complication, without long-term current use of insulin ([facility]) 04/21/2021 PAST SURGICAL HISTORY Procedure Laterality Date APPENDECTOMY 1973 COLONOSCOPY SCREENING 08/2020 EXTRACTION ERUPTED TOOTH/EXR 1973 HYSTERECTOMY HX 1989 Endometriosis. Adenomyosis. Total hysterectomy, BSO LAPAROSCOPIC CHOLECYSTECTOMY 1997 LIGATE FALLOPIAN TUBE Bilateral 1988 SHOULDER SURGERY HX Right 1983 right shoulder X 3. 1978,1980,1983 TONSILLECTOMY HX 1972 Current Outpatient Medications on File Prior to Visit Medication Sig albuterol HFA (VENTOLIN HFA) 90 mcg/actuation inhaler Inhale 2 Puffs as instructed every 6 hours asneeded for wheezing/shortness of breath. methylphenidate (RITALIN) 20 [...] Take 1 tablet by mouth once daily. PREDATOR CONTROL TRAPPER THYROID 60 mg Take 1 tablet by [...] Take 1,200 mg by mouth twice daily. Atwnjer-Yxahvwdhqpwpi-Fpwpxrhg (EXCEDRIN MIGRAINE) 250-250-65 mg per tablet Take 1 tablet by mouth every 6 hours as needed for pain. traZODone (DESYREL) 100 mg tablet Take 150 mg by mouth daily at bedtime. 150- 200mg at bedtime spironolactone (ALDACTONE) 25 mg tablet Take 1 tablet by mouth once daily. diphenoxylate-atropine (LOMOTIL) 2.5-0.025 mg per tablet Take 1 tablet by mouth four times daily asneeded for diarrhea for up to 30 days. [...] walking on heels and toes. Labs/studies: Outpatient Courtesy Car Driver 08/17/21: Patient had a min HR of [...] Abs Lymph 1.00 - 4.00 k/uL 1.82 [place]% % 7.6 Abs [place] <0.87 k/uL 0.82 Eosin% % 0.4 Abs [...] She also reports left UE and LE weaknessand speech disturbance as well as pressure in [...] dx at onset of symptoms as well asIAC abnormality given tinnitus, hearing loss, and fullness/pressure in the ears. - XR of cervical spine to evaluate for degree of degenerative changes (since previous imaging completed in 2019) possibly contributing to dizziness. - Vestibular therapy for possible improvement of symptoms. Note, she is currently taking gabapentin 2700mg daily, which can be used to improve vertigo sx, andat this time will not make any changes to medications. Will await above testing/interventions. If unremarkable, or no improvement after completion of vestibular therapy, will consider vestibular battery testing. Office Visit on 10/07/21 MRI BRAIN WO/W IVCON XR CERV OTHER 4V AP/LAT/OBL CONSULT TO VESTIBULAR REHAB PT Emiliana Goldman APRN.TECHNICAL SERVICES COORDINATOR I spent a total of 60 minutes on the date of the service which included preparing to see the patient, [id number] patient care, completing clinical documentation, obtaining and/or reviewing separately obtained history, performing a medically appropriate examination, counseling and educating the pat ient/family/caregiver and ordering medications, tests, or procedures. documented in this encounterMercy Health Anderson Hospital04-26-2022 History of Present illness Narrative* Dajuan Eric MD - 10/05/2021 11:31 AM EDT This note was created using [employer]. Subjective Ember Maldonado is a 71 year old female for [...] Falls Frequently Hypothyroidism Paf (Paroxysmal Atrial Fibrillation) ([facility]) Mixed Hyperlipidemia Chronic Diastolic Chf (Congestive Heart Failure) ([facility]) Current Outpatient Medications Medication Sig PREDATOR CONTROL TRAPPER THYROID 60 mg Take 1 tablet by mouth once daily. spironolactone (ALDACTONE) 25 mg tablet Take 1 tablet by mouth once daily. tamsulosin (FLOMAX) 0.4 mg Take 1 capsule by mouth once daily. albuterol HFA (VENTOLIN HFA) 90 mcg/actuation inhaler Inhale 2 Puffs as instructed every 6 hours asneeded for wheezing/shortness of breath. diphenhydrAMINE (BENADRYL) 25 [...] Take 1,200 mg by mouth twice daily. Erilfop-Mbujudtzuhhqc-Esrkatgq (EXCEDRIN MIGRAINE) 250-250-65 mg per tablet Take 1 tablet by mouth every 6 hours as needed for pain. traZODone (DESYREL) 100 mg tablet Take 150 mg by mouth daily at bedtime. 150- 200mg at bedtime diphenoxylate-atropine (LOMOTIL) 2.5-0.025 mg per tablet Take 1 tablet by mouth four times daily asneeded for diarrhea for up to 30 days. [...] mostly for discussion and care coordination. Dajuan Eric MD documented in this encounterMer[facility]04-20-2022 History of Present illness Narrative* RT Henrique(R) - 09/29/2021 10:10 AM EDT Radiology Service Progress Note PATIENT NAME: Ember Maldonado DATE OF SERVICE: September 29, 2021 TIME: 9:51 AM PATIENT IDENTITY VERIFICATION COMPLETED USING TWO (2) IDENTIFIERS: Name and Date of confirmedby patient verbally. FALL SCREENING: Has the patient [...] 29, 2021 9:51 AM documented in this encounterMercy [facility]04-19-2022 Miscellaneous Notes* Telephone Encounter - Summer Hood LPN - 09/28/2021 4:20 PM EDT Last appt with pcp 09/07/21. Next is 10/05/21 * Telephone Encounter - Camille Avery - 09/28/2021 2:27 PM EDT Patient is aware that there is an active script at [facility] for her spironolactone. She has requested for them to transfer it to [facility], but they haven't. [facility] has requested from [facility] as well, but they won't reply to request. Wants a new script sent to [facility] in [place]. * Telephone Encounter - Camille Avery - 09/28/2021 2:26 PM EDT Patient has been identified by name and date of : Yes Pending Prescriptions Disp Refills PREDATOR CONTROL TRAPPER THYROID 60 MG TABLET 30 tablet 0 [...] notify patient. Camille Avery documented in this encounterMercy [facility]04-18-2022 Instructions* Patient Instructions* Taylor Alfonso APRN.TECHNICAL SERVICES COORDINATOR - 09/27/2021 9:30 AM EDT Heart Disease in Women Is heart disease a problem for women? Heart disease is the leading cause of of [place] women. More women from heart disease than [...] vessel, which can cause a heart attack orstroke. In the first year after a heart attack, women have an increased risk of . In the first 6 yearsafter a heart attack, they also have a higher risk of a second heart attack. Women are at high riskoften because they are older at the time [...] it. Many women have chest pain or pressure,but sometimes symptoms in women are different from [...] right away if you have these symptoms. Donot drive yourself to the hospital. Immediate emergency [...] you are taking. If you decide you needto make changes in the way you live, you probably won't be able to turn your life around all at once. Try to develop healthy habits that incorporate your lifestyle goals. If you do, you will greatly decrease your chances for developing heart disease. You can get more information from: [place] [facility] Wlbkdpxctyv6-382-QLU-USA-1 ( )www.heart.org Developed by [employer]. Published by [employer]. Copyright 2014 [employer] and/or one of its subsidiaries. All rights reserved. documented in this encounterMercy Health Anderson Hospital04-18-2022 History of Present illness Narrative* Taylor Alfonso APRN.CNP - 09/27/2021 9:09 AM EDT Chief Complaint Patient presents with: 6 week follow up heart monitor History of Present Illness: Ember Maldonado is a 71 year old female who presents for routine follow up. She has a PMhx of chronic a-fib, fibromyalgia, hypothyroid, HTN, HLD. DM. She explains she has been moving her roommate out whichhas been physical and stressful. She continues to [...] results and risks benefits of OAC for strokereduction in the setting of a-fib. She is [...] 2 Puffs as instructed every 6 hours asneeded for wheezing/shortness of breath. methylphenidate (RITALIN) 20 [...] by mouth once daily. 90 tablet 0 [facility]ATOR [facility] THYROID 60 mg Take 1 tablet by [...] Take 1,200 mg by mouth twice daily. Axutfcx-Mfeablpxisvss-Vbevphhp (EXCEDRIN MIGRAINE) 250-250-65 mg per tablet Take 1 tablet by mouth every 6 hours as needed for pain. traZODone (DESYREL) 100 mg tablet Take 150 mg by mouth daily at bedtime. 150- 200mg at bedtime spironolactone (ALDACTONE) 25 mg tablet [...] 1 tablet by mouth four times daily asneeded for diarrhea for up to 30 days. Current Facility-Administered Medications Medication Dose Route Frequency Provider Last Rate Last Admin perflutren lipid microspheres 1.3 mL in NaCl (PF) 0.9% 10 mL injection (DEFINITY) INTRAVENOUS DIRECTED PRN Taylor Alfonso APRN.GLO sodium chloride 0.9 % (flush) 10 mL (BD POSIFLUSH) 10 mL INTRAVENOUS DIRECTED PRN Taylor Alfonso, BAG WORKER.TECHNICAL SERVICES COORDINATOR Review of Systems Constitutional: Positive for malaise/fatigue. [...] Atrial Fibrillation occurred (1% burden), ranging from 100- 233 bpm (avg of 168 bpm), the longest lasting 4 hours 35 mins with an avg rate of 168 bpm -verapamil increased from 120 to 180 mg -CHADSVASC elevated, reviewed the risks and benefits of OAC for stroke reduction in the setting of a-fib. She will consider eliquis after GI evaluation- continues to have bleeding. Reports a hx of GIbleeding as well. filled the toilet with blood [...] BNP 152 -obtain recent echocardiogram records from [facility] -lasix 40 mg, aldactone 25 mg -recommended [...] 27, 2021, 9:09 AM documented in this encounterMercy [facility] Hospital04-13-2022 Miscellaneous Notes* Telephone Encounter - Bernadette Lora LPN - 09/22/2021 11:13 AM EDT Patient has been identified by name and date of : Yes Patient phones for refill(s): Pending Prescriptions Disp Refills MONTELUKAST 10 MG TABLET 30 tablet 0 Sig: Take 1 tablet by mouth daily at bedtime. VENUTRA: No Date of last office visit in primary care: 09/07/2021 Hospital follow-up: 10/05/2021 Last 2 Encounter Wt Readings: Date: Wt: 09/07/2021 68.9 kg (152 lb) 08/27/2021 72.1 kg (159 lb) Previous labs/tests for medication: Not applicable Please advise. Thank you. Bernadette Lora LPN documented in this encounterMercy Health [facility] Hospital04-12-2022 History of Present illness Narrative* Theodora Rey OD - 09/21/2021 10:49 AM EDT 1. Type 2 diabetes mellitus without retinopathy (HCC) Risk of diabetic changes and vision loss can be minimized by tight control of blood sugar, blood pressure, and cholesterol levels. Educated patient to continue care with primary care doctor and/or certified registered locksmith to maintain optimum levels as they are [...] 21, 2021 10:49 AM documented in this encounterMercy Health [facility] Hospital04-12-2022 Instructions* Patient Instructions* Theodora Rey, OD - 09/21/2021 10:41 AM EDT Use Ocusoft or Systane lid wipes 1-2x daily -OR can use Ocusoft or alternative hypochlorous spray Use Systane or Refresh gel 2-3x daily in both eyes documented in this encounterMercy Health [facility] Hospital03-31-2022 Miscellaneous Notes* Telephone Encounter - Taylor March LPN - 09/09/2021 9:17 AM EDT [facility] pharmacy called back in and notified of Taylor's response. Pharmacist voiced understanding and will prepare script. Taylor March LPN * Telephone Encounter - Taylor March LPN - 09/09/2021 9:17 AM EDT Images from the original note were not included. Taylor Alfonso APRN.GLO Faye, RN 18 hours ago (2:43 PM) JN Ok thank you for the notification. She is on a lower dose of atorvastatin so we will continue with medication therapy Message text * Telephone Encounter - Camille Faye RN - 09/08/2021 1:22 PM EDT Received a call from pharmacist at [facility], atorvastatin sent to pharmacy today. Pharmacist indicates there is a drug interaction between atorvastatin and verapamil. Verapamil will increase the effects of atorvastatin. Camille Faye RN documented in this encounterMercy Health [facility] Hospital03-29-2022 History of Present illness Narrative* Dajuan Eric MD - 09/07/2021 11:41 AM EDT This note was created using Presstlerriter. Subjective Patient presents with: Establish Care: moved back from [place] last year Ember Maldonado was here to establish formally. She had been getting medication refills here thru the family practice [facility]. She moved here from [place] last March. Her records from [place] were requested previously but I did not find any scanned records. Electronic permissions have . She was seeing Dr. Carter for pain management. She sees J[facility] for mental health. She was being evaluated by cardiology here. Her medication list was updated. She was chronically on high doses of gabapentin. She was on armourthyroid on a chronic basis as synthetic synthroid [...] deficit disorder) Anxiety and depression Atrial fibrillation ([facility]) 08/30 Cellulitis of lower extremity 2019 Chronic fatigue syndrome Dizziness, nonspecific 09/07/2021 Falls frequently 09/07/2021 Fibromyalgia Folic acid deficiency GERD (gastroesophageal reflux disease) Hypothyroidism Insomnia Intractable back pain Osteopenia Type 2 diabetes mellitus without complication, without long-term current use of insulin ([facility]) 04/21/2021 PAST SURGICAL HISTORY Procedure Laterality Date [...] Take 1 tablet by mouth once daily. PREDATOR CONTROL TRAPPER THYROID 60 mg Take 1 tablet by [...] Take 1,200 mg by mouth twice daily. Yggqzed-Lxnuqfboqhjag-Gawagyan (EXCEDRIN MIGRAINE) 250-250-65 mg per tablet Take 1 tablet by mouth every 6 hours as needed for pain. traZODone (DESYREL) 100 mg tablet spironolactone (ALDACTONE) 25 mg tablet Take 1 tablet by mouth once daily. diphenoxylate-atropine (LOMOTIL) 2.5-0.025 mg per tablet Take 1 tablet by mouth four times daily asneeded for diarrhea for up to 30 days. [...] Artery) Resp 16 Ht 162.6 cm (5' 4) Wt 68.9 kg (152 lb) BMI 26.09 [...] ICD10: E11.40 The [place] new to [place]. - CONSULT TO OPHTHALMOLOGY 7. Encounter for screening mammogram for malignant neoplasm of breast - ICD9: V76.12, ICD10: Z12.31 - [facility] SCREENING Dajuan Eric MD documented in this encounterMercy [facility] Hospital11-10-2021 History of Present illness Narrative* Autumn Wall RT(R) - 04/21/2021 9:10 AM EST Radiology Service Progress Note PATIENT NAME: Ember Maldonado DATE OF SERVICE: April 21, 2021 TIME: 9:13 AM PATIENT IDENTITY VERIFICATION COMPLETED USING TWO (2) IDENTIFIERS: Name and Date of confirmedby patient verbally. FALL SCREENING: Has the patient had 2 falls in the last year or 1 fall with injury or currently using an Ambulatory Assistive Device (Walker, Cane, Wheelchair, Crutches, etc.)? No PATIENT GENDER DATA: Female. status: : No status: NO. PATIENT RELEVANT IMPLANT DATA REVIEWED: Not Applicable RADIOLOGY DEPARTMENT: General X-ray: Exam(s) Completed: Chest X-Ray PERIPHERAL IV DATA: Not applicable SIGNED BY: RT Vasyl(R) April 21, 2021 9:13 AM documented in this encounterUC [facility] note* Diagnosis Cervical radiculopathy- Primary Brachial neuritis or radiculitis nos Lumbar radiculopathy Thoracic or lumbosacral neuritis or radiculitis, unspecified Insomnia, unspecified type Dizziness, nonspecific Dizziness and giddiness Falls frequently Personal history of fall Type 2 diabetes mellitus with diabetic neuropathy, without long-term current use of insulin ([facility]) Encounter for screening mammogram for malignant neoplasm of breast Other screening mammogram [facility]* Diagnosis Type 2 diabetes mellitus without retinopathy ([facility])- Primary Type II or unspecified type diabetes mellitus without mention of complication, not stated as uncontrolled Squamous blepharitis of upper and lower eyelids of both eyes Punctate keratitis, bilateral Combined forms of age-related cataract of both eyes Other and combined forms of senile cataract documented in this encounter [facility] note* Diagnosis Mixed hyperlipidemia- Primary PAF (paroxysmal atrial fibrillation) ([facility]) Atrial fibrillation Leg swelling Swelling of limb Chronic diastolic CHF (congestive heart failure) ([facility]) Chronic diastolic heart failure Type 2 diabetes mellitus with diabetic neuropathy, without long-term current use of insulin ([facility]) [facility]* Diagnosis Hypothyroidism, acquired Unspecified hypothyroidism documented in this encounter [facility] note* Diagnosis Encounter for screening mammogram for malignant neoplasm of breast Other screening mammogram documented in this encounter [facility] note* Diagnosis Encounter for hepatitis C screening test for low risk patient- Primary Mild intermittent asthma without complication Unspecified asthma Type 2 diabetes mellitus with diabetic neuropathy, without long-term current use of insulin (HCC) documented in this encounter [facility] note* Diagnosis Vertigo- Primary Dizziness and giddiness Transient cerebral ischemia, unspecified type DDD (degenerative disc disease), cervical Degeneration of cervical intervertebral disc Dizziness Dizziness and giddiness documented in this encounter [facility] noteNo assessment information availableWDunlap [facility] Work Phone: [facility] note* Diagnosis Pelvic cramping- Primary Unspecified symptom associated with female genital organs Hand injury, left, initial encounter Visit for wound check Encounter for other specified aftercare documented in this encounter [facility] note* Diagnosis Screening for colon cancer- Primary Special screening for malignant neoplasms, colon documented in this encounter [facility] note* Diagnosis Mixed hyperlipidemia Type 2 diabetes mellitus with diabetic neuropathy, without long-term current use of insulin ([facility]) Encounter for hepatitis C screening test for low risk patient Combined forms of age-related cataract of both eyes Other and combined forms of senile cataract documented in this encounter [facility] note* Diagnosis Type 2 diabetes mellitus with diabetic neuropathy, without long-term current use of insulin (HCC)- Primary Screening for osteoporosis Special screening for osteoporosis Asymptomatic menopause documented in this encounter [facility] note* Diagnosis Hypothyroidism, acquired Unspecified hypothyroidism documented in this encounter [facility] note* Diagnosis Hypothyroidism, acquired Unspecified hypothyroidism documented in this encounter [facility] note* Diagnosis Cervical radiculopathy Brachial neuritis or radiculitis nos Lumbar radiculopathy Thoracic or lumbosacral neuritis or radiculitis, unspecified documented in this encounter [facility] note* Diagnosis Type 2 diabetes mellitus with [...] depression Dysthymic disorder documented in this encounter [facility] note* Diagnosis Mild intermittent asthma without complication Unspecified asthma documented in this encounter [facility] note* Diagnosis Epistaxis- Primary Cervical radiculopathy Brachial neuritis or radiculitis nos Lumbar radiculopathy Thoracic or lumbosacral neuritis or radiculitis, unspecified Acute nonintractable headache, unspecified headache type PAF (paroxysmal atrial fibrillation) ([facility]) Atrial fibrillation documented in this encounter [facility] note* Diagnosis Cervical radiculopathy Brachial neuritis or radiculitis nos Lumbar radiculopathy Thoracic or lumbosacral neuritis or radiculitis, unspecified documented in this encounter [facility] note* Diagnosis Hypothyroidism, acquired Unspecified hypothyroidism documented in this encounter [facility] note* Diagnosis Onset Date Resolution Status Alternating constipation and diarrhea [facility] Work Phone: Evaluation note* Diagnosis Onset Date Resolution Status Alternating constipation and diarrhea chronic Alternating constipation and diarrhea [facility] Work Phone: Evaluation note* Diagnosis Dizziness, nonspecific- Primary Dizziness and giddiness Anxiety and depression Dysthymic disorder Type 2 diabetes mellitus with diabetic neuropathy, without long-term current use of insulin ([facility]) Hypothyroidism, unspecified type Encounter for screening mammogram for malignant neoplasm of breast Other screening mammogram Encounter for screening for osteoporosis Special screening for osteoporosis Asymptomatic postmenopausal status Alternating constipation and diarrhea Other symptoms involving digestive system documented in this encounter [facility] note* Diagnosis Cervical radiculopathy Brachial neuritis or radiculitis nos Lumbar radiculopathy Thoracic or lumbosacral neuritis or radiculitis, unspecified PAF (paroxysmal atrial fibrillation) ([facility]) Atrial fibrillation [facility]* Diagnosis Onset Date Resolution Status Alternating constipation and diarrhea chronic BMI 27.0-27.9,adult chronic 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 Sleep apnea chronic Essential hypertension acute Paroxysmal atrial fibrillation acute Preop cardiovascular exam ac [place] [facility] Work Phone: Evaluation note* Diagnosis Mild intermittent asthma without complication Unspecified asthma documented in this encounter [facility] note* Diagnosis Acute non-recurrent sinusitis, unspecified location- Primary documented [facility] encounter [facility]* Diagnosis Onset Date Resolution Status Alternating constipation and diarrhea chronic BMI 27.0-27.9,adult chronic 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 Sleep apnea chronic Essential hypertension acute Paroxysmal atrial fibrillation acute Preop cardiovascular exam ac [place] Essential hypertension acute Paroxysmal atrial fibrillation acute Sleep apnea [facility] Work Phone: Evaluation note* Diagnosis Cervical radiculopathy Brachial neuritis or radiculitis nos Lumbar radiculopathy Thoracic or lumbosacral neuritis or radiculitis, unspecified documented in this encounter [facility]Evaluation [facility]* Diagnosis Medicare annual wellness visit, subsequent- Primary Routine general medical examination at a health care facility Lump of axilla, right Type 2 diabetes mellitus with diabetic neuropathy, without long-term current use of insulin (HCC) Mixed hyperlipidemia Colon cancer screening Special screening for malignant neoplasms, colon Hypothyroidism, unspecified type Abnormal breast finding Other abnormal clinical finding documented in this encounter [facility]* Diagnosis Onset Date Resolution Status Essential hypertension acute Paroxysmal atrial fibrillation acute Preop cardiovascular exam ac [place] Essential hypertension acute Paroxysmal atrial fibrillation acute Sleep apnea chronic Acute sinusitis, unspecified acute RIVKA (obstructive sleep apnea) [facility] Work Phone: Evaluation note* Diagnosis Skin infection- Primary Unspecified local infection of skin and subcutaneous tissue Abrasion Abrasion or friction burn of other, multiple, and unspecified sites, without mention of infection documented in this encounter [facility]* Diagnosis Screening mammogram for breast cancer- Primary documented [facility] encounter [facility]* Diagnosis Onset Date Resolution Status Essential hypertension acute Paroxysmal atrial fibrillation acute Sleep apnea chronic Acute sinusitis, unspecified acute RIVKA (obstructive sleep apnea) [facility] Work Phone: Evaluation note* Diagnosis PAF (paroxysmal atrial fibrillation) (HCC) Atrial fibrillation documented in this encounter [facility]Eval[facility]* Diagnosis Mild intermittent asthma without complication Unspecified asthma [facility] encounter [facility]* Diagnosis Onset Date Resolution Status SEYMOUR (dyspnea on exertion) ac [place] Essential hypertension acute Fatigue acute Paroxysmal atrial fibrillation acute Sleep apnea [facility] Work Phone: Evaluation note* Diagnosis Onset Date Resolution Status SEYMOUR (dyspnea on exertion) [place] Essential hypertension acute Fatigue acute Paroxysmal atrial fibrillation acute Sleep apnea chronic Lumbar scoliosis acute Thoracic kyphosis acute [facility] Work Phone: Evaluation note* Diagnosis Cognitive decline- Primary Unspecified persistent mental disorders due to conditions classified elsewhere Falls frequently Personal history of fall Dizziness, nonspecific Dizziness and giddiness Lumbar radiculopathy Thoracic or lumbosacral neuritis or radiculitis, unspecified Chronic diastolic CHF (congestive heart failure) (HCC) Chronic diastolic heart failure PAF (paroxysmal atrial fibrillation) (HCC) Atrial fibrillation Type 2 diabetes mellitus with diabetic neuropathy, without long-term current use of insulin ([facility]) [facility] encounter [facility]* Diagnosis Sorethroat- Primary Acute pharyngitis documented in this encounter [facility]* Diagnosis Cognitive decline- Primary Unspecified persistent mental disorders due to conditions classified elsewhere Falls frequently Personal history of fall Chronic diastolic CHF (congestive heart failure) (HCC) Chronic diastolic heart failure Type 2 diabetes mellitus with diabetic neuropathy, without long-term current use of insulin ([facility]) Dental infection Acute apical periodontitis of pulpal origin documented [facility] this encounter [facility]* Diagnosis Incontinence without sensory awareness- Primary documented [facility] this encounter [facility]* Diagnosis Medicare annual wellness visit, subsequent- Primary Routine general medical examination at a health care facility Type 2 diabetes mellitus with diabetic neuropathy, without long-term current use of insulin ([facility]) Hypothyroidism, unspecified type Mixed hyperlipidemia Chronic diastolic CHF (congestive heart failure) (HCC) Chronic diastolic heart failure Mild intermittent asthma without complication Unspecified asthma Need for COVID-19 vaccine Osteopenia, unspecified location documented [facility] this encounter [facility]* Diagnosis Sore throat- Primary Acute pharyngitis Generalized weakness Other malaise and fatigue Frequent falls Personal history of fall SOB (shortness of breath) Shortness of breath SEYMOUR (dyspnea on exertion) Other dyspnea and respiratory abnormality SOB (shortness of breath) Shortness of breath SEYMOUR (dyspnea on exertion) Other dyspnea and respiratory abnormality [facility] encounter [facility]* Diagnosis SEYMOUR (dyspnea on exertion)- Primary Other dyspnea and respiratory abnormality Sore throat Acute pharyngitis [facility]* Diagnosis SOB (shortness of breath) Shortness of breath SEYMOUR (dyspnea on exertion) Other dyspnea and respiratory abnormality [facility] encounter [facility]* Diagnosis Mild intermittent asthma without complication- Primary Unspecified asthma [facility] encounter [facility]* Diagnosis Vertigo Dizziness and giddiness DDD (degenerative disc disease), cervical Degeneration of cervical intervertebral disc [facility] encounter [facility]* Diagnosis Hand injury, left, initial encounter documented in this encounter [facility]* Diagnosis Weight loss Loss of weight documented in this encounter [facility] note* Diagnosis Encounter for screening mammogram for breast cancer documented in this [facility] Diagnosis Bacterial sinusitis- Primary Unspecified sinusitis (chronic) documented in this encounter [facility] note* Diagnosis Acute non-recurrent sinusitis, unspecified location- Primary Cervical radiculopathy Brachial neuritis or radiculitis nos Lumbar radiculopathy Thoracic or lumbosacral neuritis or radiculitis, unspecified Mixed incontinence Mixed incontinence urge and stress (male)(female) Need for influenza vaccination Need for prophylactic vaccination and inoculation against influenza [facility]* Diagnosis Type 2 diabetes mellitus with diabetic neuropathy, without long-term current use of insulin ([facility])- Primary documented in this encounter [facility]* Diagnosis Type 2 diabetes mellitus with diabetic neuropathy, without long-term current use of insulin ([facility])- Primary documented in this encounter [facility]* Diagnosis Mild intermittent asthma without complication- Primary Unspecified asthma Chronic diastolic CHF (congestive heart failure) (HCC) Chronic diastolic heart failure Mixed hyperlipidemia Type 2 diabetes mellitus with diabetic neuropathy, without long-term current use of insulin ([facility]) PAF (paroxysmal atrial fibrillation) ([facility]) Atrial fibrillation Dizziness, nonspecific Dizziness and giddiness Cervical radiculopathy Brachial neuritis or radiculitis nos Hypothyroidism, unspecified type Vitamin D deficiency Unspecified vitamin D deficiency Subacute sinusitis, unspecified location [facility] Diagnosis Foot pain, bilateral- Primary Pain in limb documented in this encounter [facility]* Diagnosis Atrial fibrillation with RVR ([facility])- Primary Atrial fibrillation PAF (paroxysmal atrial fibrillation) ([facility]) Atrial fibrillation Type 2 diabetes mellitus with diabetic neuropathy, without long-term current use of insulin ([facility]) Cervical radiculopathy Brachial neuritis or radiculitis nos Lumbar radiculopathy Thoracic or lumbosacral neuritis or radiculitis, unspecified Gastroesophageal reflux disease, unspecified whether esophagitis present Mild intermittent asthma without complication (HCC) Unspecified asthma [facility] Diagnosis Articulatory dyspraxia- Primary Other symbolic dysfunction Cervical radiculopathy Brachial neuritis or radiculitis nos Lumbar radiculopathy Thoracic or lumbosacral neuritis or radiculitis, unspecified Mild intermittent asthma without complication (HCC) Unspecified asthma Dizziness, nonspecific Dizziness and giddiness Acute non-recurrent maxillary sinusitis PAF (paroxysmal atrial fibrillation) (HCC) Atrial fibrillation [facility] Work Phone: Hospital Discharge instructions Additional Instructions You do not need further labs done as they were all drawn here today. I spoke with Karen from the cardiology office. She would like to decrease her Lasix to 40 mg once a day. Please check your blood pressure at home and keep a log. Please follow-up with cardiology in 2 weeks. Please also discuss at your cardiology appointments anticoagulation for stroke prevention associated atrial fibrillation. If you have worsening symptoms please return to the emergency room.[facility] Work Phone: Progress note Author Di Nina [facility] Note Date/Time December 04, 2024 9:[address] [facility] [address] [place] [address] OFFICE VISIT Date of Service: 12/04/24 MR#: [id number] Acct: [id number] Name: EMBER MALDONADO Rep #: [id number] : 1950 Provider: SUKHI Almeida Age/Sex: 74/F [place] [facility] [place] Status: Signed Intake Vital Signs 06/04/24 09:31 10/10/24 09:46 12/02/24 09:24 Height 5 ft 3 in 5 ft 3 in 5 ft 3 in Intake Visit Reasons: 6 M FU Chief Complaint: constipation Allergies Environmental Allergies: Uncoded Allergy (Severe, Verified 12/02/24 09:27) Anaphylaxis pregabalin (From Lyrica) Allergy (Severe, Verified 12/02/24 09:27) Suicidal ideations prochlorperazine (From Compazine) Allergy (Severe, Verified 12/02/24 09:27) hallucinations metformin Allergy (Unknown, Verified 12/02/24 09:27) stomach cramping Sulfa (Sulfonamide Antibiotics) Allergy (Unknown, Verified 12/02/24 09:27) unknown ketorolac (From Toradol) Allergy (Verified 12/02/24 09:27) Pain in joints doxycycline Adverse Reaction (Unknown, Verified 12/02/24 09:27) Nausea/Vom/Diarrhea Medications ?Medication ?Instructions ?Recorded ?Confirmed ?Type thyroid (pork) 60 mg tablet (PREDATOR CONTROL TRAPPER 60 mg PO DAILY thyroid 01/13/22 12/02/24 History Thyroid) joqwidn-xlbncfjkiawop-qruqgnaa 250 1 tab PO Q6H PRN pa in 09/15/22 12/02/24 History mg-250 mg-65 mg tablet (Excedrin Migraine) gabapentin 300 mg capsule 600 mg PO TID 09/15/2212/04 History gabapentin 300 mg capsule 900 mg PO QHS nerve pain 12/0212/04/24 History multivitamin-ferrous 1 tab PO 1700 Supplement 12/0212/02/24 History fumarate-folic acid 18 mg-400 mcg tablet (Centrum Women) albuterol sulfate 90 mcg/actuation 2 puff inhalation Q 4H PRN 09/19/22 12/02/24 Rx aerosol inhaler (Ventolin HFA) shortness of breath or wheezing #18 grams apixaban 5 mg tablet (Eliquis) 5 mg PO BID blood thinn er #60 tabs 06/23/23 12/04/24 Rx metoprolol tartrate 25 mg tablet 12.5 mg PO BID blood pressure 07/17/23 12/02/24 History dicyclomine 20 mg tablet 20 mg PO BID stomach #60 tab s 09/18/23 12/02/24 Rx acetaminophen 325 mg tablet 650 mg PO Q4H PRN fever or pain 06/04/24 12/02/24 History buprenorphine 10 mcg/hour weekly 1 patch topical QWEEK 06/04/24 12/02/24 History transdermal patch empagliflozin 25 mg tablet 25 mg PO QDAY diabetes 05/1312/04/24 History (Jardiance) furosemide 40 mg tablet (Lasix) 40 mg PO QDAY PRN SOB, Edema 06/04/24 12/04/24 History glipizide 2.5 mg tablet, extended 2.5 mg PO QDAY diabe bruno 06/04/24 12/04/24 History release 24 hr hydrocodone-acetaminophen 5-325mg 1 tab PO TID pain 12/02/24 History 5mg-325mg ipratropium 0.5 mg-albuterol 3 mg 3 ml inhalation Q6H PRN shortness 06/04/24 12/02/24 History (2.5 mg base)/3 mL nebulization of breath or wheezing soln levomefolate 7.5 mg-algal oil 1 cap PO QDAY 06/04/24 0 12/02/24 History 90.314 mg capsule (Deplin (algal oil)) magnesium oxide 400 mg PO QHS Supplement 12/04/24 History tizanidine 2 mg capsule 4 mg PO QHS muscle spasms 12/02/24 History trazodone 150 mg tablet 300 mg PO QHS sleep 06/04/24 12/02/24 History aluminum-mag hydroxide-simethicone 30 ml PO Q4H PRN dy spepsia 07/26/24 12/02/24 History 200 mg-200 mg-20 mg/5 mL oral susp dextrose 40 % oral gel (Glucose 10 g PO Q15M PRN hypog lycemia 07/26/24 12/02/24 History Gel) fluticasone furoate 200 1 inh inhalation Q24H #30 ea 07/26/24 12/04/24 Rx mcg/actuation blister powder for inhalation (Arnuity Ellipta) magnesium hydroxide 400 mg/5 mL 30 ml PO ONCE PRN stom ach upset 07/26/24 12/04/24 History oral suspension (Milk of Magnesia) ascorbic acid (vitamin C) 500 mg 1 g PO 1700 Supplemen t 09/05/24 12/02/24 History chewable tablet (Acerola C) diphenhydramine HCl 25 mg capsule 25 mg PO Q4H PRN all ergy symptoms 09/05/24 12/02/24 History (Allergy (diphenhydramine)) fluticasone furoate 200 1 inh inhalation DAILY breat melly 09/05/24 12/02/24 History mcg/actuation blister powder for inhalation montelukast 10 mg tablet 10 mg PO QHS allergies 09/0512/02/24 History (Singulair) ondansetron HCl 8 mg tablet 8 mg PO Q8H 09/05/2412/02 History potassium chloride 20 mEq 20 meq PO DAILY PRN suppleme nt 09/05/24 12/02/24 History tablet,extended release(part/cryst) (Klor-Con M) rosuvastatin 10 mg tablet (Crestor) 10 mg PO QHS trevor sterol 09/05/24 12/02/24 History tamsulosin 0.4 mg capsule (Flomax) 0.4 mg PO DAILY pro state 09/05/24 12/02/24 History esomeprazole magnesium 40 mg 40 mg PO DAILY Supplement 09/06/24 12/04/24 History capsule,delayed release lidocaine 4 % topical patch 1 patch topical QDAY 09/2012/04/24 History nitroglycerin 0.4 mg sublingual 0.4 mg sublingual Q5M PRN 09/20/24 12/02/24 History tablet amiodarone 200 mg tablet 100 mg (1/2 x 200 mg) PO QDA Y #15 09/26/24 12/02/24 Rx tabs bisacodyl 10 mg rectal suppository 10 mg UT QDAY PRN 0 10/10/24 12/02/24 History dimenhydrinate 50 mg tablet 50 mg PO .COMPLEX PRN naus ea and 10/10/24 12/04/24 History (Dramamine) vomiting meloxicam 7.5 mg tablet 7.5 mg PO QDAY PRN 10/10/24 12/02/24 History guaifenesin 1,200 mg tablet, 1,200 mg PO .QD #90 tabs 11/26/24 12/04/24 Rx extended release 12 hr (Mucinex) linaclotide 290 mcg capsule 290 mcg PO QAM stomach #90 caps 12/04/24 12/04/24 Rx (Linzess) simethicone 80 mg chewable tablet 80 mg PO 4-6XD PRN a bdominal 12/04/24 12/04/24 Rx (Gas Relief (simethicone)) distention #60 tabs Have you fallen in the past year?: Yes Nurse's Note: OV 12/04/24 Pt here for a f/u and reports nausea, diarrhea, constipation, abdominal pain, gas and bloating. [facility] Right shoulder pain Hyperlipidemia Costochondritis Chronic anticoagulation Atelectasis Wears glasses Depression Anxiety Easy bruising TIA (transient ischemic attack) Difficulty swallowing Chronic cough Former smoker CPAP (continuous positive airway pressure) dependence History of echocardiogram History of stress test Cardiology follow-up encounter Acute sinusitis, unspecified Paroxysmal atrial fibrillation Essential hypertension IBS (irritable bowel syndrome) Type 2 diabetes mellitus without complication, with long-term current use of insulin Osteopenia Intractable back pain Insomnia Hypothyroidism GERD (gastroesophageal reflux disease) Folic acid deficiency Fibromyalgia Chronic fatigue syndrome ADD (attention deficit disorder) SOB (shortness of breath) Arthritis Asthma Atrial fibrillation Surgical History H/O bilateral cataract extraction History of tonsillectomy History of total abdominal hysterectomy and bilateral salpingo-oophorectomy History of cholecystectomy History of colonoscopy History of appendectomy Hx of shoulder surgery Family History Other Cancer Diabetes Heart disease Social History household members: none Smoking Status: Former smoker how long ago did patient quit smokin alcohol intake: former year quit: 1995 substance use type: former substance user Date of last use: 1969 HPI HPI Chief Complaint: constipation Details: EMBER MALDONADO, is a 74 F who presents to the office today for f/u. PMH a-fib (baby aspirin); ADD; chronic fatigue; fibromyalgia; GERD; folic acid deficiency; hypothyroid; DMII; migraines. CT abd/pel for abdominal pain 06.16.21 with mild intrahepatic biliary ductal dilation. Diverticulosis without diverticulitis. Outside ED presentation 06.25.21 with generalized weakness for several week with nausea and emesis with weight loss and loose stools that are black and contain bright red blood with a history of a GIB s/p colonoscopy that she reported couldnot pass into her ?upper colon?. MRCP for Dilated bile duct 1.27.22 with mildly dilated intrahepatic biliary duct. *BGI established 06.02.22 with referral from PCP for evaluation of a GIB; deniesissue with GIB. Several times a week she will experience abdominal spasms with subsequent loose stools which relieves discomfort. When not having this she has hard stools that she then strains to produce which will the produce a ?fissure? and will have blood. Contact start Relistor 450mg QD; not covered by ins. Start Movantik 25mgQAM per formulary. Not started r/t cost. OV 09.02.22 continues to have symptoms as noted at initial consult. She recently had steroid injections and has had increased GERD following this; Nexium OTC previously helpful and is no longer as helpful following injections. Urine glucose H1000, leukocyte esterase H25 OV 07.05.23 since start of Eliquis she has been having blood in her stool. History of GIB. BM have improved to daily with incomplete evacuation with use ofstool to set feet upon; will have intermittent loose stools. Reports she ate an entire large cheese pizza yesterday and it will take until Monday for her bodyto digest this. Lactulose taken once or so a week. Colonoscopy 08.07.23 Anal fissure found on perianal exam. Diverticulosis in the recto-sigmoid colon and in the sigmoid colon. Anal fissure. Injected with botulinum toxin. Non-bleeding internal hemorrhoids. The examination was otherwise normal on direct and retroflexion views. No specimens collected. OV 6..24 pt reports continued constipation; denies blood in the stool. Pt reports that she has a bm every 4 days; normal bm followed by 2-3 days of diarrhea. Pt reports taking daily prune juice and once she feels she really needs to have a bm she will take 15mg bisacodyl. pt reports symptoms of abdominal pain, gas/bloating, and heartburn related to constipation. OV 10.30.24 Pt is here today for continued issues with constipation. She feels the Maktoob has stopped working over the past couple of months. She has bowel movements daily but they are hard and small. She feels very bloated. She has almost daily nausea that she feels is related to the greasy food at the assistedliving facility. SHe has been taking Dramamine but this is really trying out hermucosus membranes. *increase Linzess to 290 mcg daily *increase PPI 1.14.25 Pt has been doing well since last visit. She is now having a bm daily which is much improved. SHe is happy with the increased dose of Linzess. If she is constipated she takes milk of mag PRN. Her heartburn has decreased since increasing her PPI. She still has some nausea on occasion if the food she eats is greasy. OV 6.25.25 Pt doing well today. She feels the Linzess has helped with the constipation. She is having a bm daily to every three days. She does have intermittent diarrhea when she is constipated for a long time. ROS Const Constitutional: Positive for fatigue, frequent falls, weakness and weight change; No fever(s) ENT ENT: No difficulty swallowing Cardio Cardiology: Positive for leg pain with exertion Gastro GI: Positive for abdominal pain, bloating, constipation, diarrhea, excessive flatus and nausea/dyspepsia; No belching, change in bowel habits, change in stool character, coffee ground emesis, cramping, heartburn, difficulty swallowing, feeling full early, incontinent of stools, Vomiting blood/hematemesis, Blood in stool, loose stools,Black,tarry stools, pain with swallowing, vomiting or other Musc Musculoskeletal: Positive for abnormal gait, joint pain, back pain, joint swelling, muscle cramps, muscle weakness, numbness, stiffness, tingling, Arthritis, sciatica and leg pain with exertion Skin Skin: Positive for dry skin; No yellowing of the eye or itchy eyes Neuro Neurology: Positive for abnormal gait, abnormal movements, unsteady gait/balance, dizziness, weakness, frequent falls, lack of coordination, numbness, tingling, tremor(s) and seizures Psych Psychiatric: Positive for anxiety, Positive for depression, Positive for hyperactivity and Positive for inattentiveness Endo Endocrine: Positive for fatigue and weight change Aller/Imm Allergy/Immunologic: No itchy eyes Jose/Lymp Hematologic/Lymphatic: Positive for easy bruising; No easy bleeding Exam Const General: cooperative, healthy appearing and comfortable Nutritional Appearance: average body habitus [facility] Head: normal to inspection Eyes General: appearance normal, both eyes and all related structures Neck Neck: normal visual inspection Chest Chest palpation & inspection: normal inspection of the chest Resp Effort & Inspection: normal respiratory effort Cardio Rate: regular rate Rhythm: regular rhythm GI Inspection: normal to inspection Auscultation: normal bowel sounds Percussion: normal to percussion Assessment and Plan Assessment and Plan (1) GERD (gastroesophageal reflux disease): Status: Acute Plan: Ember is a 74 yo female pt here today for f/u regarding her constipation. She isfeeling well on Linzess 290 mcg daily. She has a bm every day to every 3 days. She has had a lot of flatulence lately and will take Gas-X as needed. Will continue these medications. She will f/u in 6 months. -Continue Linzess 290 mcg -Continue Gas-x -f/u in 6 months (2) Constipation: Status: Acute Medications: New simethicone (Gas Relief (simethicone)) 80 mg PO 4-6XD PRN 60 tabs 0RF abdominal distention Refilled linaclotide (Linzess) 290 mcg PO QAM 90 caps 3RF stomach Coding Level of Care Code Off vis,est,level 3 Diagnoses GERD (gastroesophageal reflux disease) K21.9 Constipation K59.00 Clinical Quality Measures Falls Risk Screening/Assistive Devices Have you fallen in the past year?: Yes 12/04/24 1872 <Electronically signed by Di ISBELL> Date _ Di ISBELL Cosigner Signature: Date (if applicable) CC: ~ [place] [employer] Work Phone: Reason for referral (narrative)* Diagnostic Procedure Only (Routine) - Closed Specialty Diagnoses / Procedures Referred By Lionel donovan Referred To Contact [facility] Diagnoses Encounter for screening mammogram for malignant neoplasm of breast Procedures GERA SCREENING SCREENING MAMMOGRAPHY BI 2-VIEW BREAST INC CAD Dajuan Eric MD [address] [place] [address] [facility] [address] [place] [address] Referral ID Status Reason Start Date Expiration Date V isits Requested Visits Authorized [id number] Closed Auto-Generate d Referral 09/07/2021 10/07/2022 1 1 [facility] for referral (narrative)* Diagnostic Procedure Only (Routine) - Closed Specialty Diagnoses / Procedures Referred By Contac t Referred To Contact XR IMAGING Diagnoses Vertigo DDD (degenerative disc disease), cervical Procedures XR CERV OTHER 4V AP/LAT/OBL RADEX SPINE CERVICAL 4 OR 5 VIEWS Emiliana Goldman APRN.TECHNICAL SERVICES COORDINATOR [address] [place] [address] Xr Imaging Referral ID Status Reason Start Date Expiration Date V isits Requested Visits Authorized [id number] Closed Auto-Generate d Referral 10/07/2021 11/06/2022 1 1 * MRI/CT (Routine) - Authorized Specialty Diagnoses / Procedures Referred By Contac t Referred To Contact MR IMAGING Diagnoses Transient cerebral ischemia, unspecified type Procedures MRI BRAIN WO/W IVCON MRI BRAIN BRAIN STEM W/O W/CONTRAST MATERIAL Emiliana Goldman APRN.TECHNICAL SERVICES COORDINATOR [address] [place] [address] Mr Imaging Referral ID Status Reason Start Date Expiration Date Visits Requested Visits Authorized [id number] Authorized Auto-Generat ed Referral 10/07/2021 11/06/2022 1 1 [facility] for referral (narrative)* Diagnostic Procedure Only (Urgent) - Closed Specialty Diagnoses / Procedures Referred By Contac t Referred To Contact XR IMAGING Diagnoses Hand injury, left, initial encounter Procedures XR HAND GENERAL 3V PA/LAT/OBL LEFT RADEX HAND MINIMUM 3 VIEWS Maci Alegria, PA-C [address] [place] [address] Xr Imaging Referral ID Status Reason Start Date Expiration Date V isits Requested Visits Authorized [id number] Closed Auto-Generate d Referral 10/18/2021 11/17/2022 1 1 [facility] for referral (narrative)* Outpatient Procedure (Routine) - Pending Review Specialty Diagnoses / Procedures Referred By Contac t Referred To Contact [facility] Diagnoses Mild intermittent asthma without complication Procedures LUNG VOLUMES Dajuan Eric MD [address] [place] [address] Respiratory [place] [id number] Referral ID Status Reason Start Date Expiration Date Visits Requested Visits Authorized [id number] Pending Review Auto-Generat ed Referral 2 05/06/2023 1 1 * Outpatient Procedure (Routine) - Pending Review Specialty Diagnoses / Procedures Referred By Contac t Referred To [facility] Diagnoses Mild intermittent asthma without complication Procedures SPIROMETRY - BASELINE AND POST DILATOR BRNCDILAT RSPSE SPMTRY PRE&POST-BRNCDILAT ADMN Dajuan Eric MD [address] [place] [address] [place] [address] [place] [address] Referral ID Status Reason Start Date Expiration Date Visits Requested Visits Authorized [id number] Pending Review Auto-Generat ed Referral 2 05/06/2023 1 1 [facility] for referral (narrative)* Diagnostic Procedure Only (Routine) - Pending Review Specialty Diagnoses / Procedures Referred By Contac t Referred To Contact [facility] Diagnoses Encounter for screening mammogram for malignant neoplasm of breast Procedures GERA SCREENING SCREENING MAMMOGRAPHY BI 2-VIEW BREAST INC CAD Dajuan Eric MD [address] [place] [address] [facility] [address] [place] [address] Referral ID Status Reason Start Date Expiration Date Visits Requested Visits Authorized [id number] Pending Review Auto-Generat ed Referral 09/23/2022 10/23/2023 1 1 [facility] for referral (narrative)* Diagnostic Procedure Only (Routine) - Pending Review Specialty Diagnoses / Procedures Referred By Angyac t Referred To Contact [facility] Diagnoses Lump of axilla, right Abnormal breast finding Procedures US BREAST LTD RIGHT US BREAST UNI REAL TIME WITH IMAGE LIMITED Kayce Jules APRN.TECHNICAL SERVICES COORDINATOR [address] [place] [address] [facility] [address] [place] [address] Referral ID Status Reason Start Date Expiration Date Visits Requested Visits Authorized [id number] Pending Review Auto-Generat ed Referral 01/24/2023 02/23/2024 1 1 * Diagnostic Procedure Only (Routine) - Pending Review Specialty Diagnoses / Procedures Referred By Lionel t Referred To Contact [facility] Diagnoses Lump of axilla, right Abnormal breast finding Procedures GERA DIAGNOSTIC BILATERAL DIAGNOSTIC MAMMOGRAPHY COMPUTER-AIDED DETCJ BI Kayce Jules APRN.TECHNICAL SERVICES COORDINATOR [address] [place] [address] [facility] [address] [place] [address] Referral ID Status Reason Start Date Expiration Date Visits Requested Visits Authorized [id number] Pending Review Auto-Generat ed Referral 01/24/2023 02/23/2024 1 1 [facility] for referral (narrative)* Diagnostic Procedure Only (Routine) - Pending Review Specialty Diagnoses / Procedures Referred By Lionel t Referred To Contact [facility] Diagnoses Screening mammogram for breast cancer Procedures GERA SCREENING W MICKY SCREENING DIGITAL BREAST TOMOSYNTHESIS BI SCREENING MAMMOGRAPHY BI 2-VIEW BREAST INC Kayce Rey APRN.TECHNICAL SERVICES COORDINATOR [address] [place] [address] [facility] [address] [place] [address] Referral ID Status Reason Start Date Expiration Date Visits Requested Visits Authorized [id number] Pending Review Auto-Generat ed Referral 04/29/2024 1 1 [facility] for referral (narrative)* Diagnostic Procedure Only (Routine) - Closed Specialty Diagnoses / Procedures Referred By Contac t Referred To Contact XR IMAGING Diagnoses Vertigo DDD (degenerative disc disease), cervical Procedures XR CERV OTHER 4V AP/LAT/OBL RADEX SPINE CERVICAL 4 OR 5 VIEWS Emiliana Goldman APRN.CNP [address] [place] [address] [place] [id number] Referral ID Status Reason Start Date Expiration Date V isits Requested Visits Authorized [id number] Closed Auto-Generate d Referral 10/07/2021 11/06/2022 1 1 [facility] for referral (narrative)* Diagnostic Procedure Only (Urgent) - Closed Specialty Diagnoses / Procedures Referred By Contac t Referred To Contact XR IMAGING Diagnoses Hand injury, left, initial encounter Procedures XR HAND GENERAL 3V PA/LAT/OBL LEFT RADEX HAND MINIMUM 3 VIEWS Maci Alegria PA-C [address] [place] [address] [place] [address] Referral ID Status Reason Start Date Expiration Date V isits Requested Visits Authorized [id number] Closed Auto-Generate d Referral 10/18/2021 11/17/2022 1 1 [facility] for referral (narrative)* Diagnostic Procedure Only (Routine) - New Request Specialty Diagnoses / Procedures Referred By Contac t Referred To Contact [facility] Diagnoses Encounter for screening mammogram for breast cancer Procedures GERA SCREENING W MICKY SCREENING DIGITAL BREAST TOMOSYNTHESIS BI SCREENING MAMMOGRAPHY BI 2-VIEW BREAST INC Dajuan Kwon MD [address] [place] [address] Br Imaging [address] [place] [address] Referral ID Status Reason Start Date Expiration Date Visits Requested Visits Authorized [id number] New Request Auto-Generat ed Referral 03/13/2024 04/12/2025 1 1 [facility] for referral (narrative)No reason for [facility]: Reason for visit Narrative* Diagnostic Procedure Only (Routine) - Closed Specialty Diagnoses / Procedures Referred By Lionel donovan Referred To Contact BR IMAGING Diagnoses Encounter for screening mammogram for malignant neoplasm of breast Procedures GERA SCREENING SCREENING MAMMOGRAPHY BI 2-VIEW BREAST INC Dajuan Kwon MD [address] [place] [address] Br Imaging [address] [place] [address] Referral ID Status Reason Start Date Expiration Date V isits Requested Visits Authorized [id number] Closed Auto-Generate d Referral 09/07/2021 10/07/2022 1 1 [facility] for visit Narrative* Diagnostic Procedure Only (Routine) - Closed Specialty Diagnoses / Procedures Referred By Lionel donovan Referred To Contact XR IMAGING Diagnoses Vertigo DDD (degenerative disc disease), cervical Procedures XR CERV OTHER 4V AP/LAT/OBL RADEX SPINE CERVICAL 4 OR 5 VIEWS Emiliana Goldman, BAG WORKER.TECHNICAL SERVICES COORDINATOR [address] [place] [address] [place] [address] Referral ID Status Reason Start Date Expiration Date V isits Requested Visits Authorized [id number] Closed Auto-Generate d Referral 10/07/2021 11/06/2022 1 1 [facility] for visit Narrative* Diagnostic Procedure Only (Urgent) - Closed Specialty Diagnoses / Procedures Referred By Contac t Referred To Contact XR IMAGING Diagnoses Hand injury, left, initial encounter Procedures XR HAND GENERAL 3V PA/LAT/OBL LEFT RADEX HAND MINIMUM 3 VIEWS Maci Alegria PA-C [address] [place] [address] [place] [address] Referral ID Status Reason Start Date Expiration Date V isits Requested Visits Authorized [id number] Closed Auto-Generate d Referral 10/18/2021 11/17/2022 1 1 [facility] Reason for Referral Specialty Diagnoses / Procedures Referred By Contac t Referred To Contact Ophthalmology Diagnoses Type 2 diabetes mellitus with diabetic neuropathy, without long-term current use of insulin (HCC) Procedures CONSULT TO OPHTHALMOLOGY OFFICE/OUTPATIENT NEW HIGH MDM 60-74 MINUTES Dajuan Eric MD [facility] [place] [id number] Referral ID Status Reason Start Date Expiration Date Visits Requested Visits Authorized [id number] Authorized PCP Requested Referral 09/07/2021 09/07/2022 1 1 Specialty Diagnoses / Procedures Referred By Contac t Referred To Contact BR IMAGING Diagnoses Encounter for screening mammogram for malignant neoplasm of breast Procedures GERA SCREENING SCREENING MAMMOGRAPHY BI 2-VIEW BREAST INC CAD Dajuan Eric MD [address] [place] [address] Br Imaging [address] [place] [address] Referral ID Status Reason Start Date Expiration Date Visits Requested Visits Authorized [id number] Pending Review Auto-Generat ed Referral 09/07/2021 10/07/2022 1 1 Specialty Diagnoses / Procedures Referred By Contac t Referred To Contact Ent - Otolaryngology Diagnoses Epistaxis Procedures CONSULT TO ENT Dajuan Eric MD [facility] [place] [address] Referral ID Status Reason Start Date Expiration Date Visits Requested Visits Authorized [id number] Ref Not Required PCP Requested Referral 2 05/25/2023 1 1 Summary Purpose Family History No Family History Records Found Relationship Condition Age at Onset Recorded Date/T ophelia Not Specified Diabetes mellitus Unknown Cardiac disease Unknown Malignant neoplasm Unknown Advance Directives No Advanced Directives Records Found Advance Directive Response Recorded Date/ Time Living Will No October 13, 2021 5: 12pm Power of Environmental Safety Specialist No October 13, 2021 5:12pm Advance Directive Response Recorded Date/ Time Living Will No August 19, 2022 8:26pm Power of Environmental Safety Specialist No August 19 8:26pm Advance Directive Response Recorded Date/ Time Living Will No August 19, 2022 9:26pm Power of Environmental Safety Specialist No August 19 9:26pm Advance Directive Response Recorded Date/ Time Living Will No October 15, 2022 2: 19pm Power of Environmental Safety Specialist No October 15, 2022 2:19pm Advance Directive Response Recorded Date/ Time Living Will No June 01 10:50am Power of Environmental Safety Specialist No June 01, 2023 10:50am Advance Directive Response Recorded Date/ Time Living Will No July 17 10:50am Do you have a Healthcare Power of Environmental Safety Specialist? No July 17, 2023 10:50am Advance Directive Response Recorded Date/ Time Living Will No July 17 10:50am Do you have a Healthcare Power of Environmental Safety Specialist? No July 17, 2023 10:50am Living Will No September 05, 2024 7:35pm Do you have a Healthcare Power of Environmental Safety Specialist? No September 05, 2024 7:35pm Advance Directive Response Recorded Date/ Time Living Will No July 17 10:50am Do you have a Healthcare Power of Environmental Safety Specialist? No July 17, 2023 10:50am Living Will No September 06, 2024 1:03am Do you have a Healthcare Power of Environmental Safety Specialist? No September 06, 2024 1:03am Advance Directive Response Recorded Date/ Time Living Will No September 06, 2024 1:03am Do you have a Healthcare Power of Environmental Safety Specialist? No September 06, 2024 1:03am Medications Administered Section Active Administered Medications - up to 3 most recent administrations Medication Order MAR Action Action Date Dose Rate Site fluorescein-benoxinate 0.25-0.4 % 1 Drop (FLURESS) 1 Drop, BOTH EYES, DIRECTED, Starting on Mon09/21/21 at 1000, Until Mon09/21/21 at 2159, Administer for applanation tonometry. In the event of a Fluress shortage, administer Kelsey-Fluor 1 drop into both eyes as directed [...] Given 09/21/2021 10:00 AM EDT 1 Drop Chief Complaint and Reason for Visit Chief Complaint n/v, headache, body aches fatigue BACK PAIN BACK/NECK PAIN. PT TO BRING RX GENERAL Chief Complaint BACK PAIN BACK/NECK PAIN. PT TO BRING RX GENERAL Chief Complaint BACK/NECK PAIN. PT T O BRING RX GENERAL VESTIBULAR/RX HERE AFIB Chief Complaint BACK/NECK PAIN. PT T O BRING RX GENERAL AFIB VESTIBULAR/RX HERE Chief Complaint AFIB VESTIBULAR/RX HERE Chief Complaint Consult hematuria Reason for Visit Alternating constipa tion and diarrhea Chief Complaint Consult hematuria 3 MO FU E-ORDER Reason for Visit Alternating constipa tion and diarrhea Alternating constipation and diarrhea Chief Complaint hematuria 3 MO FU E-ORDER Sleep apnea EST chest pain Reason for Visit Alternating constipa tion and diarrhea BMI 27.0-27.9,adult Exercise-induced asthma Sleep apnea Essential hypertension Paroxysmal atrial fibrillation Preop cardiovascular exam Chief Complaint hematuria 3 MO FU E-ORDER Sleep apnea EST chest pain RIVKA ARRHYTHMIA, PAF Reason for Visit Alternating constipa tion and diarrhea BMI 27.0-27.9,adult Exercise-induced asthma Sleep apnea Essential hypertension Paroxysmal atrial fibrillation Preop cardiovascular exam Chief Complaint 3 MO FU E-ORDER Sleep apnea EST chest pain RIVKA ARRHYTHMIA, PAF 3 M FU ATRIAL FIBRILLATION Reason for Visit Alternating constipa tion and diarrhea BMI 27.0-27.9,adult Exercise-induced asthma Sleep apnea Essential hypertension Paroxysmal atrial fibrillation Preop cardiovascular exam Essential hypertension Paroxysmal atrial fibrillation Sleep apnea Chief Complaint EST chest pain RIVKA ARRHYTHMIA, PAF 3 M FU ATRIAL FIBRILLATION SINUS INFECTION/COUGH, FEVER 2 M FU RIGHT LUMP OBSTRUCTIVE SLEEP APNEA Reason for Visit Essential hypertensi on Paroxysmal atrial fibrillation Preop cardiovascular exam Essential hypertension Paroxysmal atrial fibrillation Sleep apnea Acute sinusitis, unspecified RIVKA (obstructive sleep apnea) Chief Complaint 3 M FU ATRIAL FIBRILLATION SINUS INFECTION/COUGH, FEVER 2 M FU RIGHT LUMP OBSTRUCTIVE SLEEP APNEA Reason for Visit Essential hypertensi on Paroxysmal atrial fibrillation Sleep apnea Acute sinusitis, unspecified RIVKA (obstructive sleep apnea) Chief Complaint 5 m fu UPPER EXTREM Reason for Visit SEYMOUR (dyspnea on exer tion) Essential hypertension Fatigue Paroxysmal atrial fibrillation Sleep apnea Chief Complaint 5 m fu UPPER EXTREM LUMBAR SPINE room 2 Dizziness and giddiness Amb Documentation Amb Documentation Reason for Visit SEYMOUR (dyspnea on exer tion) Essential hypertension Fatigue Paroxysmal atrial fibrillation Sleep apnea Lumbar scoliosis Thoracic kyphosis Chief Complaint Admit Date INTERMEDIATE LAB WORK May 13, 2024 8:00pm 6 M FU June 04, 2024 8:39am DYSPNEA/SOB June 04, 2024 10:16am 3 M FU June 25, 2024 8 :42am CERVICAL SPINE July 08, 2024 1 :59pm RM 2 July 08, 2024 2 :18pm DYSPNEA/SOB July 23, 2024 12:54pm 1 Y FU July 26, 2024 8:31am 3 M FU August 27, 2024 11: 23am EORDER August 27, 2024 12: 22pm R05.9 - Cough, unspecified September 02, 8:02am Reason for Visit Admit Date Paroxysmal atrial fibrillation June 04, 2024 8:39am SEYMOUR (dyspnea on exertion) June 04, 2024 8:39am Essential hypertension June 04 8:39am Sleep apnea June 04, 2024 8:39am Constipation June 25, 2024 8 :42am GERD (gastroesophageal reflux disease) J anuary 2024 8:42am Cervical kyphosis July 08, 2024 1 :59pm Cervical myelopathy July 08, 2024 1 :59pm Cough July 26, 2024 8:31am RIVKA (obstructive sleep apnea) July 132024 8:31am Paroxysmal atrial fibrillation August 11:23am Essential hypertension August 27, 2024 11:23am Sleep apnea August 27, 2024 11: 23am Chief Complaint Admit Date INTERMEDIATE LAB WORK May 13, 2024 8:00pm 6 M FU June 04, 2024 8:39am DYSPNEA/SOB June 04, 2024 10:16am 3 M FU June 25, 2024 8 :42am CERVICAL SPINE July 08, 2024 1 :59pm RM 2 July 08, 2024 2 :18pm DYSPNEA/SOB July 23, 2024 12:54pm 1 Y FU July 26, 2024 8:31am 3 M FU August 27, 2024 11: 23am EORDER August 27, 2024 12: 22pm R05.9 - Cough, unspecified September 02 8:02am AFIB WITH RVR, RECURRENT & PAROXMYSMAL I N September 05, 2024 11:40pm Reason for Visit Admit Date Paroxysmal atrial fibrillation June 04, 2024 8:39am SEYMOUR (dyspnea on exertion) June 04, 2024 8:39am Essential hypertension June 04 8:39am Sleep apnea June 04, 2024 8:39am Constipation June 25, 2024 8 :42am GERD (gastroesophageal reflux disease) J anuary 2024 8:42am Cervical kyphosis July 08, 2024 1 :59pm Cervical myelopathy July 08, 2024 1 :59pm Cough July 26, 2024 8:31am RIVKA (obstructive sleep apnea) July 132024 8:31am Paroxysmal atrial fibrillation August 11:23am Essential hypertension August 27, 2024 11:23am Sleep apnea August 27, 2024 11: 23am Atrial fibrillation with rapid ventricul ar response September 05, 2024 11:40pm Chronic anticoagulation September 05, 2024 11:40pm Dyspnea on exertion September 05, 2024 11: 40pm Generalized weakness September 05, 2024 11 :40pm Essential hypertension September 05, 2024 11:40pm Chief Complaint Admit Date INTERMEDIATE LAB WORK May 13, 2024 8:00pm 6 M FU June 04, 2024 8:39am DYSPNEA/SOB June 04, 2024 10:16am 3 M FU June 25, 2024 8 :42am CERVICAL SPINE July 08, 2024 1 :59pm RM 2 July 08, 2024 2 :18pm DYSPNEA/SOB July 23, 2024 12:54pm 1 Y FU July 26, 2024 8:31am 3 M FU August 27, 2024 11: 23am EORDER August 27, 2024 12: 22pm R05.9 - Cough, unspecified September 02, 2 025 8:02am AFIB WITH RVR, RECURRENT & PAROXMYSMAL I N September 05, 2024 11:40pm AFIB WITH RVR, RECURRENT & PAROXMYSMAL I N September 06, 2024 1:33pm Chief Complaint Admit Date 3 M FU June 25, 2024 8 :42am CERVICAL SPINE July 08, 2024 1 :59pm RM 2 July 08, 2024 2 :18pm DYSPNEA/SOB July 23, 2024 12:54pm 1 Y FU July 26, 2024 8:31am 3 M FU August 27, 2024 11: 23am EORDER August 27, 2024 12: 22pm R05.9 - Cough, unspecified September 02, 2 025 8:02am INTERMEDIATE LAB WORK September 04, 2024 4 :47pm AFIB WITH RVR, RECURRENT & PAROXMYSMAL I N September 05, 2024 11:40pm AFIB WITH RVR, RECURRENT & PAROXMYSMAL I N September 06, 2024 9:05am AFIB WITH RVR, RECURRENT & PAROXMYSMAL I N September 06, 2024 1:33pm LABWORK September 17, 2024 10:4 5am 8 WK F/U September 20, 2024 12: 31pm S/P [facility] 09/05 AFIB RVR September 26, 2024 1 2:53pm Reason for Visit Admit Date Constipation June 25, 2024 8 :42am GERD (gastroesophageal reflux disease) J anuary 2024 8:42am Cervical kyphosis July 08, 2024 1 :59pm Cervical myelopathy July 08, 2024 1 :59pm Cough July 26, 2024 8:31am RIVKA (obstructive sleep apnea) July 132024 8:31am Paroxysmal atrial fibrillation August 11:23am Sleep apnea August 27, 2024 11: 23am Essential hypertension August 27, 2024 11:23am Atrial fibrillation with rapid ventricul ar response September 05, 2024 11:40pm Dyspnea on exertion September 05, 2024 11: 40pm Generalized weakness September 05, 2024 11 :40pm Chronic anticoagulation September 05, 2024 11:40pm Essential hypertension September 05, 2024 11:40pm Asthma September 20, 2024 12: 31pm RIVKA (obstructive sleep apnea) September 12:31pm Hyperlipidemia September 26, 2024 12: 53pm Paroxysmal atrial fibrillation September 12:53pm Sleep apnea September 26, 2024 12: 53pm Essential hypertension September 26, 2024 12:53pm Chief Complaint Admit Date 3 M FU August 27, 2024 11: 23am EORDER August 27, 2024 12: 22pm R05.9 - Cough, unspecified September 02, 2 025 8:02am R05.9 - Cough, unspecified September 02, 2 025 8:11am INTERMEDIATE LAB WORK September 04, 2024 4 :47pm AFIB WITH RVR, RECURRENT & PAROXMYSMAL I N September 05, 2024 11:40pm AFIB WITH RVR, RECURRENT & PAROXMYSMAL I N September 06, 2024 9:05am AFIB WITH RVR, RECURRENT & PAROXMYSMAL I N September 06, 2024 1:33pm LABWORK September 17, 2024 10:4 5am 8 WK F/U September 20, 2024 12: 31pm S/P [facility] 09/05 AFIB RVR September 26, 2024 1 2:53pm 2 WK FU October 10, 2024 9:14am RIGHT SHOULDER December 02, 2024 9:22 am Room 4 December 02, 2024 9:29 am Reason for Visit Admit Date Paroxysmal atrial fibrillation August 11:23am Sleep apnea August 27, 2024 11: 23am Essential hypertension August 27, 2024 11:23am Atrial fibrillation with rapid ventricul ar response September 05, 2024 11:40pm Dyspnea on exertion September 05, 2024 11: 40pm Generalized weakness September 05, 2024 11 :40pm Chronic anticoagulation September 05, 2024 11:40pm Essential hypertension September 05, 2024 11:40pm Asthma September 20, 2024 12: 31pm RIVKA (obstructive sleep apnea) September 12:31pm Hyperlipidemia September 26, 2024 12: 53pm Paroxysmal atrial fibrillation September 12:53pm Sleep apnea September 26, 2024 12: 53pm Essential hypertension September 26, 2024 12:53pm Hyperlipidemia October 10, 2024 9:14am Paroxysmal atrial fibrillation October 10, 2024 9:14am Sleep apnea October 10, 2024 9:14am Right shoulder pain December 02, 2024 9:22 am Chief Complaint Admit Date 3 M FU August 27, 2024 11: 23am EORDER August 27, 2024 12: 22pm R05.9 - Cough, unspecified September 02, 2 025 8:02am R05.9 - Cough, unspecified September 02, 2 025 8:11am INTERMEDIATE LAB WORK September 04, 2024 4 :47pm AFIB WITH RVR, RECURRENT & PAROXMYSMAL I N September 05, 2024 11:40pm AFIB WITH RVR, RECURRENT & PAROXMYSMAL I N September 06, 2024 9:05am AFIB WITH RVR, RECURRENT & PAROXMYSMAL I N September 06, 2024 1:33pm LABWORK September 17, 2024 10:4 5am 8 WK F/U September 20, 2024 12: 31pm S/P [facility] 09/05 AFIB RVR September 26, 2024 1 2:53pm 2 WK October 10, 2024 9:14am RIGHT SHOULDER December 02, 2024 9:22 am Room 4 December 02, 2024 9:29 am 6 M December 04, 2024 9:11 am Reason for Visit Admit Date Paroxysmal atrial fibrillation August 11:23am Sleep apnea August 27, 2024 11: 23am Essential hypertension August 27, 2024 11:23am Atrial fibrillation with rapid ventricul ar response September 05, 2024 11:40pm Dyspnea on exertion September 05, 2024 11: 40pm Generalized weakness September 05, 2024 11 :40pm Chronic anticoagulation September 05, 2024 11:40pm Essential hypertension September 05, 2024 11:40pm Asthma September 20, 2024 12: 31pm RIVKA (obstructive sleep apnea) September 12:31pm Hyperlipidemia September 26, 2024 12: 53pm Paroxysmal atrial fibrillation September 12:53pm Sleep apnea September 26, 2024 12: 53pm Essential hypertension September 26, 2024 12:53pm Hyperlipidemia October 10, 2024 9:14am Paroxysmal atrial fibrillation October 10, 2024 9:14am Sleep apnea October 10, 2024 9:14am Right shoulder pain December 02, 2024 9:22 am Constipation December 04, 2024 9:11 am GERD (gastroesophageal reflux disease) J [facility] 2024 9:11am Chief Complaint Admit Date 3 M FU August 27, 2024 11: 23am EORDER August 27, 2024 12: 22pm R05.9 - Cough, unspecified September 02, 2 025 8:02am R05.9 - Cough, unspecified September 02, 2 025 8:11am INTERMEDIATE LAB WORK September 04, 2024 4 :47pm AFIB WITH RVR, RECURRENT & PAROXMYSMAL I N September 05, 2024 11:40pm AFIB WITH RVR, RECURRENT & PAROXMYSMAL I N September 06, 2024 9:05am AFIB WITH RVR, RECURRENT & PAROXMYSMAL I N September 06, 2024 1:33pm LABWORK September 17, 2024 10:4 5am 8 WK F/U September 20, 2024 12: 31pm S/P [facility] 09/05 AFIB RVR September 26, 2024 1 2:53pm 2 WK FU October 10, 2024 9:14am RIGHT SHOULDER December 02, 2024 9:22 am Room 4 December 02, 2024 9:29 am 6 M FU December 04, 2024 9:11 am ARTICULATORY DYSPRAXIA December 18, 2024 7: 56am Chief Complaint Admit Date RIGHT SHOULDER December 02, 2024 9:22 am Room 4 December 02, 2024 9:29 am 6 M FU December 04, 2024 9:11 am ARTICULATORY DYSPRAXIA December 18, 2024 7: 56am 6 M FU February 27, 2025 8:46am Reason for Visit Admit Date Right shoulder pain December 02, 2024 9:22 am Constipation December 04, 2024 9:11 am GERD (gastroesophageal reflux disease) J [facility] 25th, 2025 9:11am Hyperlipidemia February 27, 2025 8:46am Paroxysmal atrial fibrillation February 27, 2025 8:46am Sleep apnea February 27, 2025 8:46am Additional Source Comments Source Comments (unrecognize d section and content) In the event this informatio n is protected by the Federal Confidentiality of Alcohol and Drug Abuse Patient Records regulations: The Federal rules restrict any use of the information to criminally investigate or prosecute any alcohol or drug abuse patient.[facility] the event this information is protected by the Federal Confidentiality of Alcohol and Drug Abuse Patient Records regulations: The Federal rules restrict any use of the information to criminally investigate or prosecute any alcohol or drug abuse patient.[facility] Hospital[facility] the event this information is protected by the Federal Confidentiality of Alcohol and Drug Abuse Patient Records regulations: The Federal rules restrict any use of the information to criminally investigate or prosecute any alcohol or drug abuse patient.[facility] HospitalIn the event this information is protected by the Federal Confidentiality of Alcohol and Drug Abuse Patient Records regulations: The Federal rules restrict any use of the information to criminally investigate or prosecute any alcohol or drug abuse patient.[facility] HospitalIn the event this information is protected by the Federal Confidentiality of Alcohol and Drug Abuse Patient Records regulations: The Federal rules restrict any use of the information to criminally investigate or prosecute any alcohol or drug abuse patient.[facility] HospitalIn the event this information is protected by the Federal Confidentiality of Alcohol and Drug Abuse Patient Records regulations: The Federal rules restrict any use of the information to criminally investigate or prosecute any alcohol or drug abuse patient.[facility] HospitalIn the event this information is protected by the Federal Confidentiality of Alcohol and Drug Abuse Patient Records regulations: The Federal rules restrict any use of the information to criminally investigate or prosecute any alcohol or drug abuse patient.[facility] HospitalIn the event this information is protected by the Federal Confidentiality of Alcohol and Drug Abuse Patient Records regulations: The Federal rules restrict any use of the information to criminally investigate or prosecute any alcohol or drug abuse patient.[facility] the event this information is protected by the Federal Confidentiality of Alcohol and Drug Abuse Patient Records regulations: The Federal rules restrict any use of the information to criminally investigate or prosecute any alcohol or drug abuse patient.[facility] HospitalIn the event this information is protected by the Federal Confidentiality of Alcohol and Drug Abuse Patient Records regulations: The Federal rules restrict any use of the information to criminally investigate or prosecute any alcohol or drug abuse patient.[facility] HospitalIn the event this information is protected by the Federal Confidentiality of Alcohol and Drug Abuse Patient Records regulations: The Federal rules restrict any use of the information to criminally investigate or prosecute any alcohol or drug abuse patient.[facility] Hospital[facility] the event this information is protected by the Federal Confidentiality of Alcohol and Drug Abuse Patient Records regulations: The Federal rules restrict any use of the information to criminally investigate or prosecute any alcohol or drug abuse patient.[facility] HospitalIn the event this information is protected by the Federal Confidentiality of Alcohol and Drug Abuse Patient Records regulations: The Federal rules restrict any use of the information to criminally investigate or prosecute any alcohol or drug abuse patient.[facility] HospitalIn the event this information is protected by the Federal Confidentiality of Alcohol and Drug Abuse Patient Records regulations: The Federal rules restrict any use of the information to criminally investigate or prosecute any alcohol or drug abuse patient.[facility] HospitalIn the event this information is protected by the Federal Confidentiality of Alcohol and Drug Abuse Patient Records regulations: The Federal rules restrict any use of the information to criminally investigate or prosecute any alcohol or drug abuse patient.[facility] HospitalIn the event this information is protected by the Federal Confidentiality of Alcohol and Drug Abuse Patient Records regulations: The Federal rules restrict any use of the information to criminally investigate or prosecute any alcohol or drug abuse patient.[facility] HospitalIn the event this information is protected by the Federal Confidentiality of Alcohol and Drug Abuse Patient Records regulations: The Federal rules restrict any use of the information to criminally investigate or prosecute any alcohol or drug abuse patient.[facility] HospitalIn the event this information is protected by the Federal Confidentiality of Alcohol and Drug Abuse Patient Records regulations: The Federal rules restrict any use of the information to criminally investigate or prosecute any alcohol or drug abuse patient.[facility] HospitalIn the event this information is protected by the Federal Confidentiality of Alcohol and Drug Abuse Patient Records regulations: The Federal rules restrict any use of the information to criminally investigate or prosecute any alcohol or drug abuse patient.[facility] HospitalIn the event this information is protected by the Federal Confidentiality of Alcohol and Drug Abuse Patient Records regulations: The Federal rules restrict any use of the information to criminally investigate or prosecute any alcohol or drug abuse patient.[facility] HospitalIn the event this information is protected by the Federal Confidentiality of Alcohol and Drug Abuse Patient Records regulations: The Federal rules restrict any use of the information to criminally investigate or prosecute any alcohol or drug abuse patient.[facility] HospitalIn the event this information is protected by the Federal Confidentiality of Alcohol and Drug Abuse Patient Records regulations: The Federal rules restrict any use of the information to criminally investigate or prosecute any alcohol or drug abuse patient.[facility] HospitalIn the event this information is protected by the Federal Confidentiality of Alcohol and Drug Abuse Patient Records regulations: The Federal rules restrict any use of the information to criminally investigate or prosecute any alcohol or drug abuse patient.[facility] HospitalIn the event this information is protected by the Federal Confidentiality of Alcohol and Drug Abuse Patient Records regulations: The Federal rules restrict any use of the information to criminally investigate or prosecute any alcohol or drug abuse patient.[facility] HospitalIn the event this information is protected by the Federal Confidentiality of Alcohol and Drug Abuse Patient Records regulations: The Federal rules restrict any use of the information to criminally investigate or prosecute any alcohol or drug abuse patient.[facility] HospitalIn the event this information is protected by the Federal Confidentiality of Alcohol and Drug Abuse Patient Records regulations: The Federal rules restrict any use of the information to criminally investigate or prosecute any alcohol or drug abuse patient.[facility] HospitalIn the event this information is protected by the Federal Confidentiality of Alcohol and Drug Abuse Patient Records regulations: The Federal rules restrict any use of the information to criminally investigate or prosecute any alcohol or drug abuse patient.[facility] HospitalIn the event this information is protected by the Federal Confidentiality of Alcohol and Drug Abuse Patient Records regulations: The Federal rules restrict any use of the information to criminally investigate or prosecute any alcohol or drug abuse patient.[facility] HospitalIn the event this information is protected by the Federal Confidentiality of Alcohol and Drug Abuse Patient Records regulations: The Federal rules restrict any use of the information to criminally investigate or prosecute any alcohol or drug abuse patient.[facility] HospitalIn the event this information is protected by the Federal Confidentiality of Alcohol and Drug Abuse Patient Records regulations: The Federal rules restrict any use of the information to criminally investigate or prosecute any alcohol or drug abuse patient.[facility] HospitalIn the event this information is protected by the Federal Confidentiality of Alcohol and Drug Abuse Patient Records regulations: The Federal rules restrict any use of the information to criminally investigate or prosecute any alcohol or drug abuse patient.[facility] HospitalIn the event this information is protected by the Federal Confidentiality of Alcohol and Drug Abuse Patient Records regulations: The Federal rules restrict any use of the information to criminally investigate or prosecute any alcohol or drug abuse patient.[facility] HospitalIn the event this information is protected by the Federal Confidentiality of Alcohol and Drug Abuse Patient Records regulations: The Federal rules restrict any use of the information to criminally investigate or prosecute any alcohol or drug abuse patient.[facility] HospitalIn the event this information is protected by the Federal Confidentiality of Alcohol and Drug Abuse Patient Records regulations: The Federal rules restrict any use of the information to criminally investigate or prosecute any alcohol or drug abuse patient.[facility] HospitalIn the event this information is protected by the Federal Confidentiality of Alcohol and Drug Abuse Patient Records regulations: The Federal rules restrict any use of the information to criminally investigate or prosecute any alcohol or drug abuse patient.[facility] HospitalIn the event this information is protected by the Federal Confidentiality of Alcohol and Drug Abuse Patient Records regulations: The Federal rules restrict any use of the information to criminally investigate or prosecute any alcohol or drug abuse patient.[facility] HospitalIn the event this information is protected by the Federal Confidentiality of Alcohol and Drug Abuse Patient Records regulations: The Federal rules restrict any use of the information to criminally investigate or prosecute any alcohol or drug abuse patient.[facility] HospitalIn the event this information is protected by the Federal Confidentiality of Alcohol and Drug Abuse Patient Records regulations: The Federal rules restrict any use of the information to criminally investigate or prosecute any alcohol or drug abuse patient.[facility] HospitalIn the event this information is protected by the Federal Confidentiality of Alcohol and Drug Abuse Patient Records regulations: The Federal rules restrict any use of the information to criminally investigate or prosecute any alcohol or drug abuse patient.[facility] HospitalIn the event this information is protected by the Federal Confidentiality of Alcohol and Drug Abuse Patient Records regulations: The Federal rules restrict any use of the information to criminally investigate or prosecute any alcohol or drug abuse patient.[facility] HospitalIn the event this information is protected by the Federal Confidentiality of Alcohol and Drug Abuse Patient Records regulations: The Federal rules restrict any use of the information to criminally investigate or prosecute any alcohol or drug abuse patient.[facility] HospitalIn the event this information is protected by the Federal Confidentiality of Alcohol and Drug Abuse Patient Records regulations: The Federal rules restrict any use of the information to criminally investigate or prosecute any alcohol or drug abuse patient.[facility] HospitalIn the event this information is protected by the Federal Confidentiality of Alcohol and Drug Abuse Patient Records regulations: The Federal rules restrict any use of the information to criminally investigate or prosecute any alcohol or drug abuse patient.[facility] HospitalIn the event this information is protected by the Federal Confidentiality of Alcohol and Drug Abuse Patient Records regulations: The Federal rules restrict any use of the information to criminally investigate or prosecute any alcohol or drug abuse patient.[facility] HospitalIn the event this information is protected by the Federal Confidentiality of Alcohol and Drug Abuse Patient Records regulations: The Federal rules restrict any use of the information to criminally investigate or prosecute any alcohol or drug abuse patient.[facility] HospitalIn the event this information is protected by the Federal Confidentiality of Alcohol and Drug Abuse Patient Records regulations: The Federal rules restrict any use of the information to criminally investigate or prosecute any alcohol or drug abuse patient.[facility] HospitalIn the event this information is protected by the Federal Confidentiality of Alcohol and Drug Abuse Patient Records regulations: The Federal rules restrict any use of the information to criminally investigate or prosecute any alcohol or drug abuse patient.[facility] HospitalIn the event this information is protected by the Federal Confidentiality of Alcohol and Drug Abuse Patient Records regulations: The Federal rules restrict any use of the information to criminally investigate or prosecute any alcohol or drug abuse patient.[facility] HospitalIn the event this information is protected by the Federal Confidentiality of Alcohol and Drug Abuse Patient Records regulations: The Federal rules restrict any use of the information to criminally investigate or prosecute any alcohol or drug abuse patient.[facility] HospitalIn the event this information is protected by the Federal Confidentiality of Alcohol and Drug Abuse Patient Records regulations: The Federal rules restrict any use of the information to criminally investigate or prosecute any alcohol or drug abuse patient.[facility] HospitalIn the event this information is protected by the Federal Confidentiality of Alcohol and Drug Abuse Patient Records regulations: The Federal rules restrict any use of the information to criminally investigate or prosecute any alcohol or drug abuse patient.[facility] HospitalIn the event this information is protected by the Federal Confidentiality of Alcohol and Drug Abuse Patient Records regulations: The Federal rules restrict any use of the information to criminally investigate or prosecute any alcohol or drug abuse patient.[facility] HospitalIn the event this information is protected by the Federal Confidentiality of Alcohol and Drug Abuse Patient Records regulations: The Federal rules restrict any use of the information to criminally investigate or prosecute any alcohol or drug abuse patient.[facility] HospitalIn the event this information is protected by the Federal Confidentiality of Alcohol and Drug Abuse Patient Records regulations: The Federal rules restrict any use of the information to criminally investigate or prosecute any alcohol or drug abuse patient.[facility] HospitalIn the event this information is protected by the Federal Confidentiality of Alcohol and Drug Abuse Patient Records regulations: The Federal rules restrict any use of the information to criminally investigate or prosecute any alcohol or drug abuse patient.[facility] HospitalIn the event this information is protected by the Federal Confidentiality of Alcohol and Drug Abuse Patient Records regulations: The Federal rules restrict any use of the information to criminally investigate or prosecute any alcohol or drug abuse patient.[facility] HospitalIn the event this information is protected by the Federal Confidentiality of Alcohol and Drug Abuse Patient Records regulations: The Federal rules restrict any use of the information to criminally investigate or prosecute any alcohol or drug abuse patient.[facility] HospitalIn the event this information is protected by the Federal Confidentiality of Alcohol and Drug Abuse Patient Records regulations: The Federal rules restrict any use of the information to criminally investigate or prosecute any alcohol or drug abuse patient.[facility] the event this information is protected by the Federal Confidentiality of Alcohol and Drug Abuse Patient Records regulations: The Federal rules restrict any use of the information to criminally investigate or prosecute any alcohol or drug abuse patient.[facility] HospitalIn the event this information is protected by the Federal Confidentiality of Alcohol and Drug Abuse Patient Records regulations: The Federal rules restrict any use of the information to criminally investigate or prosecute any alcohol or drug abuse patient.[facility] HospitalIn the event this information is protected by the Federal Confidentiality of Alcohol and Drug Abuse Patient Records regulations: The Federal rules restrict any use of the information to criminally investigate or prosecute any alcohol or drug abuse patient.[facility] HospitalIn the event this information is protected by the Federal Confidentiality of Alcohol and Drug Abuse Patient Records regulations: The Federal rules restrict any use of the information to criminally investigate or prosecute any alcohol or drug abuse patient.[facility] HospitalIn the event this information is protected by the Federal Confidentiality of Alcohol and Drug Abuse Patient Records regulations: The Federal rules restrict any use of the information to criminally investigate or prosecute any alcohol or drug abuse patient.[facility] HospitalIn the event this information is protected by the Federal Confidentiality of Alcohol and Drug Abuse Patient Records regulations: The Federal rules restrict any use of the information to criminally investigate or prosecute any alcohol or drug abuse patient.[facility] HospitalIn the event this information is protected by the Federal Confidentiality of Alcohol and Drug Abuse Patient Records regulations: The Federal rules restrict any use of the information to criminally investigate or prosecute any alcohol or drug abuse patient.[facility] HospitalIn the event this information is protected by the Federal Confidentiality of Alcohol and Drug Abuse Patient Records regulations: The Federal rules restrict any use of the information to criminally investigate or prosecute any alcohol or drug abuse patient.[facility] HospitalIn the event this information is protected by the Federal Confidentiality of Alcohol and Drug Abuse Patient Records regulations: The Federal rules restrict any use of the information to criminally investigate or prosecute any alcohol or drug abuse patient.[facility] HospitalIn the event this information is protected by the Federal Confidentiality of Alcohol and Drug Abuse Patient Records regulations: The Federal rules restrict any use of the information to criminally investigate or prosecute any alcohol or drug abuse patient.[facility] HospitalIn the event this information is protected by the Federal Confidentiality of Alcohol and Drug Abuse Patient Records regulations: The Federal rules restrict any use of the information to criminally investigate or prosecute any alcohol or drug abuse patient.[facility] HospitalIn the event this information is protected by the Federal Confidentiality of Alcohol and Drug Abuse Patient Records regulations: The Federal rules restrict any use of the information to criminally investigate or prosecute any alcohol or drug abuse patient.[facility] HospitalIn the event this information is protected by the Federal Confidentiality of Alcohol and Drug Abuse Patient Records regulations: The Federal rules restrict any use of the information to criminally investigate or prosecute any alcohol or drug abuse patient.[facility] HospitalIn the event this information is protected by the Federal Confidentiality of Alcohol and Drug Abuse Patient Records regulations: The Federal rules restrict any use of the information to criminally investigate or prosecute any alcohol or drug abuse patient.[facility] HospitalIn the event this information is protected by the Federal Confidentiality of Alcohol and Drug Abuse Patient Records regulations: The Federal rules restrict any use of the information to criminally investigate or prosecute any alcohol or drug abuse patient.[facility] HospitalIn the event this information is protected by the Federal Confidentiality of Alcohol and Drug Abuse Patient Records regulations: The Federal rules restrict any use of the information to criminally investigate or prosecute any alcohol or drug abuse patient.[facility] HospitalIn the event this information is protected by the Federal Confidentiality of Alcohol and Drug Abuse Patient Records regulations: The Federal rules restrict any use of the information to criminally investigate or prosecute any alcohol or drug abuse patient.[facility] HospitalIn the event this information is protected by the Federal Confidentiality of Alcohol and Drug Abuse Patient Records regulations: The Federal rules restrict any use of the information to criminally investigate or prosecute any alcohol or drug abuse patient.[facility] HospitalIn the event this information is protected by the Federal Confidentiality of Alcohol and Drug Abuse Patient Records regulations: The Federal rules restrict any use of the information to criminally investigate or prosecute any alcohol or drug abuse patient.[facility] HospitalIn the event this information is protected by the Federal Confidentiality of Alcohol and Drug Abuse Patient Records regulations: The Federal rules restrict any use of the information to criminally investigate or prosecute any alcohol or drug abuse patient.[facility] HospitalIn the event this information is protected by the Federal Confidentiality of Alcohol and Drug Abuse Patient Records regulations: The Federal rules restrict any use of the information to criminally investigate or prosecute any alcohol or drug abuse patient.[facility] HospitalIn the event this information is protected by the Federal Confidentiality of Alcohol and Drug Abuse Patient Records regulations: The Federal rules restrict any use of the information to criminally investigate or prosecute any alcohol or drug abuse patient.[facility] HospitalIn the event this information is protected by the Federal Confidentiality of Alcohol and Drug Abuse Patient Records regulations: The Federal rules restrict any use of the information to criminally investigate or prosecute any alcohol or drug abuse patient.[facility] HospitalIn the event this information is protected by the Federal Confidentiality of Alcohol and Drug Abuse Patient Records regulations: The Federal rules restrict any use of the information to criminally investigate or prosecute any alcohol or drug abuse patient.[facility] HospitalIn the event this information is protected by the Federal Confidentiality of Alcohol and Drug Abuse Patient Records regulations: The Federal rules restrict any use of the information to criminally investigate or prosecute any alcohol or drug abuse patient.[facility] HospitalIn the event this information is protected by the Federal Confidentiality of Alcohol and Drug Abuse Patient Records regulations: The Federal rules restrict any use of the information to criminally investigate or prosecute any alcohol or drug abuse patient.[facility] HospitalIn the event this information is protected by the Federal Confidentiality of Alcohol and Drug Abuse Patient Records regulations: The Federal rules restrict any use of the information to criminally investigate or prosecute any alcohol or drug abuse patient.[facility] Reason for Visit (unrecogniz ed section and content) Reason Comments Establish Care moved back from [facility] ast year Reason Comments Medication Problem Reason Comments Diabetes Specialty Diagnoses / Procedures Referred By Contac t Referred To Contact Ophthalmology Diagnoses Type 2 diabetes mellitus with diabetic neuropathy, without long-term current use of insulin (HCC) Procedures CONSULT TO OPHTHALMOLOGY OFFICE/OUTPATIENT NEW HIGH MDM 60-74 MINUTES Dajuan Eric MD [address] [place] [address] Referral ID Status Reason Start Date Expiration Date V isits Requested Visits Authorized [id number] Closed PCP Requested Referral 09/07/2021 09/07/2022 1 1 Reason Comments Prescription Refills Reason Comments 6 week follow up heart monitor Reason Onset Date Comments Opened In Error 09/28/2021 Reason Onset Date Comments Refill Request 09/28/2021 Reason Comments F/U 1 month Reason Comments New Neur OR Patient Consult for dizzines s Reason Comments Vestibular therapy Reason Comments UTI painful and frequent urination x 1 week Acute Visit left hand middle fin elida injury x 10 days Acute Visit check stitches on ri ght lower leg Reason Comments Lab Orders 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 Dental Problem Reason Comments Forms Reason Comments Orders Reason Comments Medicare Wellness Exam 4 month follow-up Reason Comments Sore Throat X 5 days falls More frequent fallsX 1 week Reason Comments Sinusitis Reason Comments Cough Cough, KAT, sinus, na usea x 2 weeks Reason Onset Date Comments Express Care follow-up Immunizations 04/09/2024 Flu vaccination Reason Onset Date Comments Refill Request 04/16/2024 Reason Comments F/U 6 months Reason Comments Pain (foot) DORIAN foot pain, troub le walking x 3-5 days Reason Comments Pre-Op Exam Reason Comments Hospital F/U Afib Reason Comments Dysuria Reason Comments Preop clearance Reason Comments Patient Question Care Teams (unrecognized sec tion and content) Furniture Repair Technician Relationship Specialty Start Date End Date Dajuan Eric MD [address] [place], [place] [id number] PCP - General Internal Medicine 09/07/21 Furniture Repair Technician Relationship Specialty Start Date End Date Dajuan Eric MD [address] [place], [place] [id number] PCP - General Internal Medicine 09/07/21 Furniture Repair Technician Relationship Specialty Start Date End Date Dajuan Eric MD [address] [place] [address] PCP - General Internal Medicine 09/07/21 Furniture Repair Technician Relationship Specialty Start Date End Date Dajuan Eric MD [address] [place] [address] PCP - General Internal Medicine 09/07/21 Furniture Repair Technician Relationship Specialty Start Date End Date Dajuan Eric MD [address] [place] [address] PCP - General Internal Medicine 09/07/21 Furniture Repair Technician Relationship Specialty Start Date End Date Dajuan Eric MD [address] [place] [address] PCP - General Internal Medicine 09/07/21 Furniture Repair Technician Relationship Specialty Start Date End Date Dajuan Eric MD [address] [place] [address] PCP - General Internal Medicine 09/07/21 Furniture Repair Technician Relationship Specialty Start Date End Date Dajuan Eric MD [address] [place] [address] PCP - General Internal Medicine 09/07/21 Furniture Repair Technician Relationship Specialty Start Date End Date Dajuan Eric MD [address] [place] [address] PCP - General Internal Medicine 09/07/21 Furniture Repair Technician Relationship Specialty Start Date End Date Dajuan Eric MD [address] [place] [address] PCP - General Internal Medicine 09/07/21 Furniture Repair Technician Relationship Specialty Start Date End Date Dajuan Eric MD [address] [place] [address] PCP - General Internal Medicine 09/07/21 Furniture Repair Technician Relationship Specialty Start Date End Date Dajuan Eric MD [address] [place] [address] PCP - General Internal Medicine 09/07/21 Furniture Repair Technician Relationship Specialty Start Date End Date Dajuan Eric MD [address] [place] [address] PCP - General Internal Medicine 09/07/21 Furniture Repair Technician Relationship Specialty Start Date End Date Dajuan Eric MD [address] [place] [address] PCP - General Internal Medicine 09/07/21 Furniture Repair Technician Relationship Specialty Start Date End Date Dajuan Eric MD [address] [place] [address] PCP - General Internal Medicine 09/07/21 Furniture Repair Technician Relationship Specialty Start Date End Date Dajuan Eric MD [address] [place] [address] PCP - General Internal Medicine 09/07/21 Furniture Repair Technician Relationship Specialty Start Date End Date Dajuan Eric MD [address] [place] [address] PCP - General Internal Medicine 09/07/21 Furniture Repair Technician Relationship Specialty Start Date End Date Dajuan Eric MD [address] [place] [address] PCP - General Internal Medicine 09/07/21 Furniture Repair Technician Relationship Specialty Start Date End Date Dajuan Eric MD [address] [place] [address] PCP - General Internal Medicine 09/07/21 Furniture Repair Technician Relationship Specialty Start Date End Date Dajuan Eric MD [address] [place] [address] PCP - General Internal Medicine 09/07/21 Team Status: Active Member Role Status Dates Dr. Dajuan Eric MD Primary Care Provider Active Team Status: Inactive Member Role Status Dates Dr. Dajuan Eric MD Primary Care Provider, Refer ring Provider Active Dr. Berry Blas DO Attending Provider Active Team Status: Inactive Member Role Status Dates Dr. Dajuan Eric MD Primary Care Provider Active Dr. Alejandro Patel MD Emergency Provider Active Furniture Repair Technician Relationship Specialty Start Date End Date Dajuan Eric MD [address] [place] [address] PCP - General Internal Medicine 09/07/21 Taylor Alfonso, BAG WORKER.TECHNICAL SERVICES COORDINATOR [address] [place] [address] Nurse Practitioner Cardiology 08/07/22 Team Status: Inactive Member Role Status Dates Dr. Dajuan Eric MD Primary Care Provider Active Dr. Alejandro Patel MD Attending Provider, Emergency Provi isabella Active Team Status: Inactive Member Role Status Dates Dr. Dajuan Eric MD Primary Care Provider Active Dr. Berry Blas DO Attending Provider, Referring Provider Active Furniture Repair Technician Relationship Specialty Start Date End Date Dajuan Eric MD [address] [place] [address] PCP - General Internal Medicine 09/07/21 Taylor Alfonso, BAG WORKER.TECHNICAL SERVICES COORDINATOR [address] [place] [address] Nurse Practitioner Cardiology 08/07/22 Furniture Repair Technician Relationship Specialty Start Date End Date Dajuan Eric MD [address] [place] [address] PCP - General Internal Medicine 09/07/21 Taylor Alfonso, BAG WORKER.TECHNICAL SERVICES COORDINATOR [address] [place] [address] Nurse Practitioner Cardiology 08/07/22 Team Status: Inactive Member Role Status Dates Dr. Dajuan Eric MD Primary Care Provider, Refer ring Provider Active Dr. Gio Villalba MD Attending Provider Active Team Status: Inactive Member Role Status Dates Dr. Dajuan Eric MD Primary Care Provider, Refer ring Provider Active Sheri Hernandez PREDATOR CONTROL TRAPPER, PREDATOR CONTROL TRAPPER-C Attending Provider Active Team Status: Inactive Member Role Status Dates Dr. Dajuan Eric MD Primary Care Provider Active Dr. Italo Mendenhall MD Emergency Provider Active Team Status: Active Member Role Status Dates Dr. Dajuan Eric MD Primary Care Provider Active Dr. Gio Villalba MD Attending Provider Active Team Status: Inactive Member Role Status Dates Dr. Dajuan Eric MD Primary Care Provider Active Sheri Hernandez PREDATOR CONTROL TRAPPER, PREDATOR CONTROL TRAPPER-C Attending Provider, Referrin g Provider Active Team Status: Active Member Role Status Dates Dr. Dajuan Eric MD Primary Care Provider Active Dr. Gio Villalba MD Attending Provider, Referring Pro vider Active Team Status: Inactive Member Role Status Dates Dr. Dajuan Eric MD Primary Care Provider Active Dr. Italo Mendenhall MD Attending Provider, Emergency Provider Active Team Status: Inactive Member Role Status Dates Dr. Dajuan Eric MD Primary Care Provider Active Dr. Gio Villalab MD Attending Provider, Referring Pro vider Active Furniture Repair Technician Relationship Specialty Start Date End Date Dajuan Eric MD [address] [place] [address] PCP - General Internal Medicine 09/07/21 Taylor Alfonso BAG WORKER.TECHNICAL SERVICES COORDINATOR [address] [phone] (Fax) Nurse Practitioner Cardiology 08/07/22 Furniture Repair Technician Relationship Specialty Start Date End Date Dajuan Eric MD [address] [place] [address] PCP - General Internal Medicine 09/07/21 Taylor Alfonso BAG WORKER.TECHNICAL SERVICES COORDINATOR [address] [place] [address] Nurse Practitioner Cardiology 08/07/22 Team Status: Inactive Member Role Status Dates Dr. Dajuan Eirc MD Primary Care Provider, Refer ring Provider Active Karen Song PREDATOR CONTROL TRAPPER, PREDATOR CONTROL TRAPPER-C Attending Provider Active Team Status: Inactive Member Role Status Dates Dr. Dajuan Eric MD Primary Care Provider Active Karen Song PREDATOR CONTROL TRAPPER, PREDATOR CONTROL TRAPPER-C Attending Provider, Referring Andrés vazquez Active Furniture Repair Technician Relationship Specialty Start Date End Date Dajuan Eric MD [address] [place] [address] PCP - General Internal Medicine 09/07/21 Taylor Alfonso BAG WORKER.TECHNICAL SERVICES COORDINATOR [address] [address] Nurse Practitioner Cardiology 08/07/22 Furniture Repair Technician Relationship Specialty Start Date End Date Dajuan Eric MD [address] [place] [address] PCP - General Internal Medicine 09/07/21 Taylor Alfonso, BAG WORKER.TECHNICAL SERVICES COORDINATOR [address] [phone] (Fax) Nurse Practitioner Cardiology 08/07/22 Furniture Repair Technician Relationship Specialty Start Date End Date Dajuan Eric MD [address] [place] [address] PCP - General Internal Medicine 09/07/21 Taylor Alfonso BAG WORKER.TECHNICAL SERVICES COORDINATOR [address] [address] Nurse Practitioner Cardiology 08/07/22 Team Status: Inactive Member Role Status Dates Dr. Dajuan Eric MD Primary Care Provider, Refer ring Provider Active Dr. Rafi Arshad , DO Attending Provider Active Team Status: Inactive Member Role Status Dates Dr. Dajuan Eric MD Primary Care Provider, Refer ring Provider Active Wade ISBELL, PA Attending Provider Active Team Status: Inactive Member Role Status Dates Dr. Dajuan Eric MD Primary Care Provider Active Kayce Older PREDATOR CONTROL TRAPPER, PREDATOR CONTROL TRAPPER-C Attending Provider, Referring Provi isabella Active Team Status: Active Member Role Status Dates Dr. Dajuan Eric MD Primary Care Provider Active Dr. Rafi Arhsad DO Attending Provider Active Furniture Repair Technician Relationship Specialty Start Date End Date Dajuan Eric MD [address] [place] [address] PCP - General Internal Medicine 09/07/21 Taylor Alfonso, BAG WORKER.TECHNICAL SERVICES COORDINATOR [address] [place] [address] Nurse Practitioner Cardiology 08/07/22 Furniture Repair Technician Relationship Specialty Start Date End Date Dajuan Eric MD [address] [place] [address] PCP - General Internal Medicine 09/07/21 Taylor Alfonso, BAG WORKER.TECHNICAL SERVICES COORDINATOR [address] [place] [phone] (Fax) Nurse Practitioner Cardiology 08/07/22 Furniture Repair Technician Relationship Specialty Start Date End Date Dajuan Eric MD [address] [place] [address] PCP - General Internal Medicine 09/07/21 Taylor Alfonso, BAG WORKER.TECHNICAL SERVICES COORDINATOR [address] [place] [address] Nurse Practitioner Cardiology 08/07/22 Furniture Repair Technician Relationship Specialty Start Date End Date Dajuan Eric MD [address] [place] [address] PCP - General Internal Medicine 09/07/21 Taylor Alfonso APRN.TECHNICAL SERVICES COORDINATOR [address] [place] [address] Nurse Practitioner Cardiology 08/07/22 Team Status: Inactive Member Role Status Dates Dr. Dajuan Eric MD Primary Care P rovider, Attending Provider, Referring Provider Active Team Status: Inactive Member Role Status Dates Dr. Dajuan Eric MD Primary Care Provider Active Dr. Rafi Arshad DO Attending Provider Active Furniture Repair Technician Relationship Specialty Start Date End Date Dajuan Eric MD [address] [place] [address] PCP - General Internal Medicine 09/07/21 Taylor Alfonso APRN.TECHNICAL SERVICES COORDINATOR [address] [place] [address] Nurse Practitioner Cardiology 08/07/22 Team Status: Inactive Member Role Status Dates Dr. Dajuan Eric MD Primary Care Provider Active Dr. Milli Jefferson DO Emergency Provider Active Team Status: Inactive Member Role Status Dates Dr. Dajuan Eric MD Primary Care Provider, Refer ring Provider Active Dr. Saji Parker MD Attending Provider Active Team Status: Inactive Member Role Status Dates Dr. Dajuan Eric MD Primary Care Provider Active Dr. Gio Villalba MD Attending Provider Active Team Status: Active Member Role Status Dates Dr. Dajuan Eric MD Primary Care Provider Active Dr. Andrae Seaman MD Attending Provider Active Team Status: Active Member Role Status Dates Dr. Dajuan Eric MD Primary Care Provider Active Karen Song PREDATOR CONTROL TRAPPER, PREDATOR CONTROL TRAPPER-C Attending Provider Active Team Status: Inactive Member Role Status Dates Dr. Dajuan Eric MD Primary Care Provider Active Dr. Milli Jefferson DO Attending Provider, Emergency P rovider Active Furniture Repair Technician Relationship Specialty Start Date End Date Dajuan Eric MD [address] [place] [address] PCP - General Internal Medicine 09/07/21 Taylor Alfonso, BAG WORKER.TECHNICAL SERVICES COORDINATOR [address] [place] [phone] (Fax) Nurse Practitioner Cardiology 08/07/22 Furniture Repair Technician Relationship Specialty Start Date End Date Dajuan Eric MD [address] [place] [address] PCP - General Internal Medicine 09/07/21 Taylor Alfonso, BAG WORKER.TECHNICAL SERVICES COORDINATOR [address] [place] [phone] (Fax) Nurse Practitioner Cardiology 08/07/22 Furniture Repair Technician Relationship Specialty Start Date End Date Dajuan Eric MD [address] [place] [address] PCP - General Internal Medicine 09/07/21 Taylor Alfonso, BAG WORKER.TECHNICAL SERVICES COORDINATOR [address] [place] [phone] (Fax) Nurse Practitioner Cardiology 08/07/22 Furniture Repair Technician Relationship Specialty Start Date End Date Dajuan Eric MD [address] [place] [address] PCP - General Internal Medicine 09/07/21 Taylor Alfonso, BAG WORKER.TECHNICAL SERVICES COORDINATOR [address] [place] [address] Nurse Practitioner Cardiology 08/07/22 Furniture Repair Technician Relationship Specialty Start Date End Date Dajuan Eric MD [address] [place] [address] PCP - General Internal Medicine 09/07/21 Taylor Alfonso, BAG WORKER.TECHNICAL SERVICES COORDINATOR [address] [place] [address] Nurse Practitioner Cardiology 08/07/22 Furniture Repair Technician Relationship Specialty Start Date End Date Dajuan Eric MD [address] [place] [address] PCP - General Internal Medicine 09/07/21 Taylor Alfonso BAG WORKER.TECHNICAL SERVICES COORDINATOR [address] [place] [address] Nurse Practitioner Cardiology 08/07/22 Furniture Repair Technician Relationship Specialty Start Date End Date Dajuan Eric MD [address] [place] [address] PCP - General Internal Medicine 09/07/21 Furniture Repair Technician Relationship Specialty Start Date End Date Dajuan Eric MD [address] [place] [address] PCP - General Internal Medicine 09/07/21 Furniture Repair Technician Relationship Specialty Start Date End Date Dajuan Eric MD [address] [place] [address] PCP - General Internal Medicine 09/07/21 Taylor Alfonso BAG WORKER.TECHNICAL SERVICES COORDINATOR [address] [place] [address] Nurse Practitioner Cardiology 08/07/22 Furniture Repair Technician Relationship Specialty Start Date End Date Dajuan Eric MD [address] [place] [address] PCP - General Internal Medicine 09/07/21 Taylor Alfonso, BAG WORKER.TECHNICAL SERVICES COORDINATOR [address] [phone] (Fax) Nurse Practitioner Cardiology 08/07/22 Furniture Repair Technician Relationship Specialty Start Date End Date Dajuan Eric MD [address] [place] [address] PCP - General Internal Medicine 09/07/21 Taylor Alfonso, BAG WORKER.TECHNICAL SERVICES COORDINATOR [address] [phone] (Fax) Nurse Practitioner Cardiology 08/07/22 Furniture Repair Technician Relationship Specialty Start Date End Date Dajuan Eric MD [address] [place] [address] PCP - General Internal Medicine 09/07/21 Taylor Alfonso, BAG WORKER.TECHNICAL SERVICES COORDINATOR [address] [phone] (Fax) Nurse Practitioner Cardiology 08/07/22 Furniture Repair Technician Relationship Specialty Start Date End Date Dajuan Eric MD [address] [place] [address] PCP - General Internal Medicine 09/07/21 Taylor Alfonso BAG WORKER.TECHNICAL SERVICES COORDINATOR [address] [address] Nurse Practitioner Cardiology 08/07/22 Furniture Repair Technician Relationship Specialty Start Date End Date Dajuan Eric MD [address] [place] [address] PCP - General Internal Medicine 09/07/21 Taylor Alfonso BAG WORKER.TECHNICAL SERVICES COORDINATOR [address] [place] [address] Nurse Practitioner Cardiology 08/07/22 Kayce Nix, BAG WORKER.TECHNICAL SERVICES COORDINATOR [address] [place] [address] Rerol[facility] Hand Internal Medicine 05/20/24 Furniture Repair Technician Relationship Specialty Start Date End Date Dajuan Eric MD [address] [place] [address] PCP - General Internal Medicine 09/07/21 Taylor Alfonso BAG WORKER.TECHNICAL SERVICES COORDINATOR [address] [address] Nurse Practitioner Cardiology 08/07/22 Kayce Nix, BAG WORKER.TECHNICAL SERVICES COORDINATOR [address] [place] [address] [facility] Internal Medicine 05/20/24 Furniture Repair Technician Relationship Specialty Start Date End Date Dajuan Eric MD [address] [place] [address] PCP - General Internal Medicine 09/07/21 Taylor Alfonso BAG WORKER.TECHNICAL SERVICES COORDINATOR [address] [address] Nurse Practitioner Cardiology 08/07/22 Kayce Nix, BAG WORKER.TECHNICAL SERVICES COORDINATOR [address] [place] [address] [facility] Internal Medicine 05/20/24 Furniture Repair Technician Relationship Specialty Start Date End Date Dajuan Eric MD [address] [place] [address] PCP - General Internal Medicine 09/07/21 Taylor Alfonso, BAG WORKER.TECHNICAL SERVICES COORDINATOR [address] [place] [address] Nurse Practitioner Cardiology 08/07/22 Kayce Nix, BAG WORKER.TECHNICAL SERVICES COORDINATOR [address] [place] [address] [facility] Internal Medicine 05/20/24 Team Status: Inactive Member Role Status Dates Dr. Dajuan Eric MD Primary Care Provider Active Start: May 13, 2024 End: May 13, 2024 Dajuan HALE MD Attending Provider Active Start: May 13, 2024 End: May 13, 2024 Team Status: Inactive Member Role Status Dates Dr. Dajuan Eric MD Primary Care Provider Active Start: June 04, 2024 End: June 04, 2024 Dr. Dajuan Eric MD Referring Provider Active Start: June 04, 2024 End: June 04, 2024 Anthony Juarez PREDATOR CONTROL TRAPPER, PREDATOR CONTROL TRAPPER-C Attending Provider Active S tart: June 04, 2024 End: June 04, 2024 Team Status: Inactive Member Role Status Dates Dr. Dajuan Eric MD Primary Care Provider Active Start: June 04, 2024 End: June 04, 2024 Anthony Juarez PREDATOR CONTROL TRAPPER, PREDATOR CONTROL TRAPPER-C Attending Provider Active S tart: June 04, 2024 End: June 04, 2024 Anthony Juarez PREDATOR CONTROL TRAPPER, PREDATOR CONTROL TRAPPER-C Referring Provider Active S tart: June 04, 2024 End: June 04, 2024 Team Status: Inactive Member Role Status Dates Dr. Dajuan Eric MD Primary Care Provider Active Start: June 25, 2024 End: June 25, 2024 Dr. Dajaun Eric MD Referring Provider Active Start: June 25, 2024 End: June 25, 2024 SUKHI Almeida Attending Provider Active Start: June 25, 2024 End: June 25, 2024 Team Status: Inactive Member Role Status Dates Dr. Dajuan Eric MD Primary Care Provider Active Start: July 08, 2024 End: July 08, 2024 Dr. Dajuan Eric MD Referring Provider Active Start: July 08, 2024 End: July 08, 2024 Dr. Saji Parker MD Attending Provider Active Start: July 08, 2024 End: July 08, 2024 Team Status: Inactive Member Role Status Dates Dr. Dajuan Eric MD Primary Care Provider Active Start: July 08, 2024 End: July 08, 2024 Dr. Gio Villalba MD Attending Provider Active S tart: July 08, 2024 End: July 08, 2024 Team Status: Inactive Member Role Status Dates Dr. Dajuan Eric MD Primary Care Provider Active Start: July 23, 2024 End: July 23, 2024 Anthony Juarez PREDATOR CONTROL TRAPPER, PREDATOR CONTROL TRAPPER-C Attending Provider Active S tart: July 23, 2024 End: July 23, 2024 Anthony Juarez PREDATOR CONTROL TRAPPER, PREDATOR CONTROL TRAPPER-C Referring Provider Active S tart: July 23, 2024 End: July 23, 2024 Team Status: Active Member Role Status Dates Dr. Dajuan Eric MD Primary Care Provider Active Start: July 23, 2024 Dr. Gio Villalba MD Attending Provider Active S tart: July 23, 2024 Team Status: Inactive Member Role Status Dates Dr. Dajuan Eric MD Primary Care Provider Active Start: July 26, 2024 End: July 26, 2024 Dr. Dajuan Eric MD Referring Provider Active Start: July 26, 2024 End: July 26, 2024 Chio Matthew NP-C Attending Provider Active Start: July 26, 2024 End: July 26, 2024 Team Status: Inactive Member Role Status Dates Dr. Dajuan Eric MD Primary Care Provider Active Start: August 27, 2024 End: August 27, 2024 Dr. Dajuan Eric MD Referring Provider Active Start: August 27, 2024 End: August 27, 2024 Anthony Juarez PREDATOR CONTROL TRAPPER, PREDATOR CONTROL TRAPPER-C Attending Provider Active S tart: August 27, 2024 End: August 27, 2024 Team Status: Inactive Member Role Status Dates Dr. Dajuan Eric MD Primary Care Provider Active Start: August 27, 2024 End: August 27, 2024 Anthoyn Juarez PREDATOR CONTROL TRAPPER, PREDATOR CONTROL TRAPPER-C Attending Provider Active S tart: August 27, 2024 End: August 27, 2024 Anthony Juarez PREDATOR CONTROL TRAPPER, PREDATOR CONTROL TRAPPER-C Referring Provider Active S tart: August 27, 2024 End: August 27, 2024 Team Status: Active Member Role Status Dates Dr. Dajuan Eric MD Primary Care Provider Active Start: September 02, 2024 Chio Matthew NP-C Attending Provider Active Start: September 02, 2024 Chio Matthew NP-C Referring Provider Active Start: September 02, 2024 Team Status: Active Member Role Status Dates Dr. Dajuan Eric MD Primary Care Provider Active Start: September 04, 2024 Dajuan HALE MD Attending Provider Active Start: September 04, 2024 Team Status: Active Member Role Status Dates Dr. Dajuan Eric MD Primary Care Provider Active Start: September 05, 2024 Dr. Nicolás Penn MD Emergency Provider Active S tart: September 05, 2024 Dr. Jairo Ram DO Admit Provider Active Start: September 05, 2024 Dr. Jairo Ram DO Attending Provider Active Start: September 05, 2024 Team Status: Inactive Member Role Status Dates Dr. Dajuan Eric MD Primary Care Provider Active Start: September 05, 2024 End: September 06, 2024 Dr. Nicolás Penn MD Emergency Provider Active S tart: September 05, 2024 End: September 06, 2024 Dr. Jairo Ram DO Admit Provider Active Start: September 05, 2024 End: September 06, 2024 Dr. Jairo Ram DO Other Provider Active Start: September 05, 2024 End: September 06, 2024 Dr. Karine Naranjo DO Attending Provider Active S tart: September 05, 2024 End: September 06, 2024 Dr. Morena Cruz MD Other Provider Active Start: September 05, 2024 End: September 06, 2024 Dr. Judd Higgins MD Other Provider Active St art: September 05, 2024 End: September 06, 2024 Dr. Dorita Mcmanus MD Other Provider Active Star t: September 05, 2024 End: September 06, 2024 Dr. Vidal Wang MD Other Provider Active Sta rt: September 05, 2024 End: September 06, 2024 Dr. Gio Villalba MD Other Provider Active Start : September 05, 2024 End: September 06, 2024 Dr. John Fofana MD Other Provider Active Star t: September 05, 2024 End: September 06, 2024 Dr. Donis Schmitz MD Other Provider Active St art: September 05, 2024 End: September 06, 2024 Dr. Sae Tam MD Other Provider Active Start: September 05, 2024 End: September 06, 2024 Dr. Harry Guzman MD Other Provider Active S tart: September 05, 2024 End: September 06, 2024 Dr. Kendall Jack MD Other Provider Active Start: September 05, 2024 End: September 06, 2024 Anthony Juarez PREDATOR CONTROL TRAPPER, PREDATOR CONTROL TRAPPER-C Other Provider Active Start : September 05, 2024 End: September 06, 2024 Jodie Whitaker PA, PA Other Provider Active Start: September 05, 2024 End: September 06, 2024 SUKHI Collins Other Provider Active Start: September 05, 2024 End: September 06, 2024 Team Status: Active Member Role Status Dates Dr. Dajuan Eric MD Primary Care Provider Active Start: September 06, 2024 Dr. Nicolás Penn MD Emergency Provider Active S tart: September 06, 2024 Dr. Jairo Ram , Admit Provider Active Start: September 06, 2024 Dr. Jairo Ram DO Other Provider Active Start: September 06, 2024 Dr. Karine Naranjo , Attending Provider Active S tart: September 06, 2024 Dr. Karine Naranjo DO Other Provider Active Start : September 06, 2024 Dr. Morena Cruz MD Other Provider Active Start: September 06, 2024 Dr. Judd Higgins MD Other Provider Active St art: September 06, 2024 Dr. Dorita Mcmanus MD Other Provider Active Star t: September 06, 2024 Dr. Vidal Wang MD Other Provider Active Sta rt: September 06, 2024 Dr. Gio Villalba MD Other Provider Active Start : September 06, 2024 Dr. John Fofana MD Other Provider Active Star t: September 06, 2024 Dr. Donis Schmitz MD Other Provider Active St art: September 06, 2024 Dr. Sae Tam MD Other Provider Active Start: September 06, 2024 Dr. Harry Guzman MD Other Provider Active S tart: September 06, 2024 Dr. Kendall Jack MD Other Provider Active Start: September 06, 2024 Anthony Juarez NP, PREDATOR CONTROL TRAPPER-C Other Provider Active Start : September 06, 2024 Jodie ISBELL, PA Other Provider Active Start: September 06, 2024 SUKHI Collins Other Provider Active Start: September 06, 2024 Team Status: Inactive Member Role Status Dates Dr. Dajuan Eric MD Primary Care Provider Active Start: September 02, 2024 End: September 02, 2024 BEATRIZ Torres Attending Provider Active Start: September 02, 2024 End: September 02, 2024 BEATRIZ Torres Referring Provider Active Start: September 02, 2024 End: September 02, 2024 Furniture Repair Technician Relationship Specialty Start Date End Date Dajuan Eric MD [address] [place] [address] PCP - General Internal Medicine 09/07/21 Taylor Alfonso BAG WORKER.TECHNICAL SERVICES COORDINATOR [address] [place] [address] Nurse Practitioner Cardiology 08/07/22 Kayce Nix, BAG WORKER.TECHNICAL SERVICES COORDINATOR [address] [place] [address] [facility] Internal Medicine 05/20/24 Furniture Repair Technician Relationship Specialty Start Date End Date Dajuan Eric MD [address] [place] [address] PCP - General Internal Medicine 09/07/21 Taylor Alfonso, BAG WORKER.TECHNICAL SERVICES COORDINATOR [address] [address] Nurse Practitioner Cardiology 08/07/22 Kayce Nix, BAG WORKER.TECHNICAL SERVICES COORDINATOR [address] [place] [address] [facility] Internal Medicine 05/20/24 Furniture Repair Technician Relationship Specialty Start Date End Date Dajuan Eric MD [address] [place] [address] PCP - General Internal Medicine 09/07/21 Taylor Alfonso, BAG WORKER.TECHNICAL SERVICES COORDINATOR [address] [address] Nurse Practitioner Cardiology 08/07/22 Kayce Nix, BAG WORKER.TECHNICAL SERVICES COORDINATOR [address] [place] [address] [facility] Internal Medicine 05/20/24 Team Status: Inactive Member Role Status Dates Dr. Dajuan Eric MD Primary Care Provider Active Start: September 04, 2024 End: September 04, 2024 Dajuan HALE MD Attending Provider Active Start: September 04, 2024 End: September 04, 2024 Dajuan HALE MD Referring Provider Active Start: September 04, 2024 End: September 04, 2024 Team Status: Active Member Role Status Dates Dr. Dajuan Eric MD Primary Care Provider Active Start: September 06, 2024 Dr. Nicolás Penn MD Emergency Provider Active S tart: September 06, 2024 Dr. Jairo Ram , Admit Provider Active Start: September 06, 2024 Dr. Jairo Ram DO Other Provider Active Start: September 06, 2024 Dr. Karine Naranjo DO Other Provider Active Start : September 06, 2024 Dr. Morena Cruz MD Other Provider Active Start: September 06, 2024 Dr. Judd Higgins MD Other Provider Active St art: September 06, 2024 Dr. Dorita Mcmanus MD Other Provider Active Star t: September 06, 2024 Dr. Vidal Wang MD Other Provider Active Sta rt: September 06, 2024 Dr. Gio Villalba MD Other Provider Active Start : September 06, 2024 Dr. John Fofana MD Attending Provider Active Start: September 06, 2024 Dr. John Fofana MD Other Provider Active Star t: September 06, 2024 Dr. Donis Schmitz MD Other Provider Active St art: September 06, 2024 Dr. Sae Tam MD Other Provider Active Start: September 06, 2024 Dr. Harry Guzman MD Other Provider Active S tart: September 06, 2024 Dr. Kendall Jack MD Other Provider Active Start: September 06, 2024 Anthony Juarez PREDATOR CONTROL TRAPPER, PREDATOR CONTROL TRAPPER-C Other Provider Active Start : September 06, 2024 Jodie Whitaker PA, PA Other Provider Active Start: September 06, 2024 SUKHI Collins Other Provider Active Start: September 06, 2024 Team Status: Active Member Role Status Dates Dr. Dajuan Eric MD Primary Care Provider Active Start: September 17, 2024 Dajuan HALE MD Attending Provider Active Start: September 17, 2024 Team Status: Inactive Member Role Status Dates Dr. Dajuan Eric MD Primary Care Provider Active Start: September 20, 2024 End: September 20, 2024 Dr. Dajuan Eric MD Referring Provider Active Start: September 20, 2024 End: September 20, 2024 Chio Matthew NP-C Attending Provider Active Start: September 20, 2024 End: September 20, 2024 Team Status: Inactive Member Role Status Dates Dr. Dajuan Eric MD Primary Care Provider Active Start: September 26, 2024 End: September 26, 2024 Dr. Dajuan Eric MD Referring Provider Active Start: September 26, 2024 End: September 26, 2024 Jodie Whitaker PA, PA Attending Provider Active Start: September 26, 2024 End: September 26, 2024 Team Status: Inactive Member Role Status Dates Dr. Dajuan Eric MD Primary Care Provider Active Start: October 03, 2024 End: October 03, 2024 Dr. Marisel Carter MD Attending Provider Active Start: October 03, 2024 End: October 03, 2024 Dr. Marisel Carter MD Referring Provider Active Start: October 03, 2024 End: October 03, 2024 Furniture Repair Technician Relationship Specialty Start Date End Date Dajuan Eric MD [address] [place] [address] PCP - General Internal Medicine 09/07/21 Taylor Alfonso, BAG WORKER.TECHNICAL SERVICES COORDINATOR [address] [address] Nurse Practitioner Cardiology 08/07/22 Kayce Nix, BAG WORKER.TECHNICAL SERVICES COORDINATOR [address] [place] [address] [facility] Medicine 05/20/24 Team Status: Active Member Role Status Dates Dr. Dajuan Eric MD Primary Care Provider Active Start: September 02, 2024 Dr. Rafi Arshad DO Attending Provider Active S tart: September 02, 2024 hCio Matthew , CARSON-C Referring Provider Active Start: September 02, 2024 Team Status: Inactive Member Role Status Dates Dr. Dajuan Eric MD Primary Care Provider Active Start: October 10, 2024 End: October 10, 2024 Dr. Dajuan Eric MD Referring Provider Active Start: October 10, 2024 End: October 10, 2024 Jodie ISBELL PA Attending Provider Active Start: October 10, 2024 End: October 10, 2024 Team Status: Active Member Role Status Dates Dr. Dajuan Eric MD Primary Care Provider Active Start: December 02, 2024 Dr. Dajuan Eric MD Referring Provider Active Start: December 02, 2024 Wallace Giles MD Attending Provider Active St art: December 02, 2024 Team Status: Inactive Member Role Status Dates Dr. Dajuan Eric MD Primary Care Provider Active Start: December 02, 2024 End: December 02, 2024 Dr. Gio Villalba MD Attending Provider Active S tart: December 02, 2024 End: December 02, 2024 Team Status: Inactive Member Role Status Dates Dr. Dajuan Eric MD Primary Care Provider Active Start: December 02, 2024 End: December 02, 2024 Dr. Dajuan Eric MD Referring Provider Active Start: December 02, 2024 End: December 02, 2024 Wallace Giles MD Attending Provider Active St art: December 02, 2024 End: December 02, 2024 Team Status: Inactive Member Role Status Dates Dr. Dajuan Eric MD Primary Care Provider Active Start: December 04, 2024 End: December 04, 2024 Dr. Dajuan Eric MD Referring Provider Active Start: December 04, 2024 End: December 04, 2024 SUKHI Almeida Attending Provider Active Start: December 04, 2024 End: December 04, 2024 Team Status: Active Member Role/Relationship Status Dates Dr. Dajuan Eric MD Primary Care Provider Active Team Status: Inactive Member Role/Relationship Status Dates Dr. Dajuan Eric MD Primary Care Provider Active Start: August 27, 2024 End: August 27, 2024 Dr. Dajuan Eric MD Referring Provider Active Start: August 27, 2024 End: August 27, 2024 Anthony Juarez PREDATOR CONTROL TRAPPER, PREDATOR CONTROL TRAPPER-C Attending Provider Active S tart: August 27, 2024 End: August 27, 2024 Team Status: Inactive Member Role/Relationship Status Dates Dr. Dajuan Eric MD Primary Care Provider Active Start: August 27, 2024 End: August 27, 2024 Anthony Juarez PREDATOR CONTROL TRAPPER, PREDATOR CONTROL TRAPPER-C Attending Provider Active S tart: August 27, 2024 End: August 27, 2024 Anthony Juarez PREDATOR CONTROL TRAPPER, PREDATOR CONTROL TRAPPER-C Referring Provider Active S tart: August 27, 2024 End: August 27, 2024 Team Status: Inactive Member Role/Relationship Status Dates Dr. Dajuan Eric MD Primary Care Provider Active Start: September 02, 2024 End: September 02, 2024 Chio Matthew NP-C Attending Provider Active Start: September 02, 2024 End: September 02, 2024 Chio Matthew NP-C Referring Provider Active Start: September 02, 2024 End: September 02, 2024 Team Status: Active Member Role/Relationship Status Dates Dr. Dajuan Eric MD Primary Care Provider Active Start: September 02, 2024 Dr. Rafi Arshad DO Attending Provider Active S tart: September 02, 2024 Chio Matthew NP-C Referring Provider Active Start: September 02, 2024 Team Status: Inactive Member Role/Relationship Status Dates Dr. Dajuan Eric MD Primary Care Provider Active Start: September 04, 2024 End: September 04, 2024 Dajuan HALE MD Attending Provider Active Start: September 04, 2024 End: September 04, 2024 Dajuan HALE MD Referring Provider Active Start: September 04, 2024 End: September 04, 2024 Team Status: Inactive Member Role/Relationship Status Dates Dr. Dajuan Eric MD Primary Care Provider Active Start: September 05, 2024 End: September 06, 2024 Dr. Nicolás Penn MD Emergency Provider Active S tart: September 05, 2024 End: September 06, 2024 Dr. Jairo Ram DO Admit Provider Active Start: September 05, 2024 End: September 06, 2024 Dr. Jairo Ram DO Other Provider Active Start: September 05, 2024 End: September 06, 2024 Dr. Karine Naranjo DO Attending Provider Active S tart: September 05, 2024 End: September 06, 2024 Dr. Morena Cruz MD Other Provider Active Start: September 05, 2024 End: September 06, 2024 Dr. Judd Higgins MD Other Provider Active St art: September 05, 2024 End: September 06, 2024 Dr. Dorita Mcmanus MD Other Provider Active Star t: September 05, 2024 End: September 06, 2024 Dr. Vidal Wang MD Other Provider Active Sta rt: September 05, 2024 End: September 06, 2024 Dr. Gio Villalba MD Other Provider Active Start : September 05, 2024 End: September 06, 2024 Dr. John Fofana MD Other Provider Active Star t: September 05, 2024 End: September 06, 2024 Dr. Donis Schmitz MD Other Provider Active St art: September 05, 2024 End: September 06, 2024 Dr. Sae Tam MD Other Provider Active Start: September 05, 2024 End: September 06, 2024 Dr. Harry Guzman MD Other Provider Active S tart: September 05, 2024 End: September 06, 2024 Dr. Kendall Jack MD Other Provider Active Start: September 05, 2024 End: September 06, 2024 Anthony Juarez PREDATOR CONTROL TRAPPER, PREDATOR CONTROL TRAPPER-C Other Provider Active Start : September 05, 2024 End: September 06, 2024 Jodie Whitaker PA, PA Other Provider Active Start: September 05, 2024 End: September 06, 2024 SUKHI Collins Other Provider Active Start: September 05, 2024 End: September 06, 2024 Team Status: Active Member Role/Relationship Status Dates Dr. Dajuan Eric MD Primary Care Provider Active Start: September 06, 2024 Dr. Nicolás Penn MD Emergency Provider Active S tart: September 06, 2024 Dr. Jairo Ram , Admit Provider Active Start: September 06, 2024 Dr. Jairo Ram , Other Provider Active Start: September 06, 2024 Dr. Karine Naranjo , Other Provider Active Start : September 06, 2024 Dr. Morena Cruz MD Other Provider Active Start: September 06, 2024 Dr. Judd Higgins MD Other Provider Active St art: September 06, 2024 Dr. Dorita Mcmanus MD Other Provider Active Star t: September 06, 2024 Dr. Vidal Wang MD Other Provider Active Sta rt: September 06, 2024 Dr. Gio Villalba MD Other Provider Active Start : September 06, 2024 Dr. John Fofana MD Attending Provider Active Start: September 06, 2024 Dr. John Fofana MD Other Provider Active Star t: September 06, 2024 Dr. Donis Schmitz MD Other Provider Active St art: September 06, 2024 Dr. aSe Tam MD Other Provider Active Start: September 06, 2024 Dr. Harry Guzman MD Other Provider Active S tart: September 06, 2024 Dr. Kendall Jack MD Other Provider Active Start: September 06, 2024 Anthony Juarez PREDATOR CONTROL TRAPPER, PREDATOR CONTROL TRAPPER-C Other Provider Active Start : September 06, 2024 Jodie ISBELL, PA Other Provider Active Start: September 06, 2024 SUKHI Collins Other Provider Active Start: September 06, 2024 Team Status: Active Member Role/Relationship Status Dates Dr. Dajuan Eric MD Primary Care Provider Active Start: September 06, 2024 Dr. Nicolás Penn MD Emergency Provider Active S tart: September 06, 2024 Dr. Jairo Ram DO Admit Provider Active Start: September 06, 2024 Dr. Jairo Ram DO Other Provider Active Start: September 06, 2024 Dr. Karine Naranjo DO Attending Provider Active S tart: September 06, 2024 Dr. Karine Naranjo DO Other Provider Active Start : September 06, 2024 Dr. Morena Cruz MD Other Provider Active Start: September 06, 2024 Dr. Judd Higgins MD Other Provider Active St art: September 06, 2024 Dr. Dorita Mcmanus MD Other Provider Active Star t: September 06, 2024 Dr. Vidal Wang MD Other Provider Active Sta rt: September 06, 2024 Dr. Gio Villalba MD Other Provider Active Start : September 06, 2024 Dr. John Fofana MD Other Provider Active Star t: September 06, 2024 Dr. Donis Schmitz MD Other Provider Active St art: September 06, 2024 Dr. Sae Tam MD Other Provider Active Start: September 06, 2024 Dr. Harry Guzman MD Other Provider Active S tart: September 06, 2024 Dr. Kendall Jack MD Other Provider Active Start: September 06, 2024 Anthony Juarez NP, PREDATOR CONTROL TRAPPER-C Other Provider Active Start : September 06, 2024 Jodie Whitaker PA, PA Other Provider Active Start: September 06, 2024 SUKHI Collins Other Provider Active Start: September 06, 2024 Team Status: Active Member Role/Relationship Status Dates Dr. Dajuan Eric MD Primary Care Provider Active Start: September 17, 2024 Dajuan HALE MD Attending Provider Active Start: September 17, 2024 Team Status: Inactive Member Role/Relationship Status Dates Dr. Dajuan Eric MD Primary Care Provider Active Start: September 20, 2024 End: September 20, 2024 Dr. Dajuan Eric MD Referring Provider Active Start: September 20, 2024 End: September 20, 2024 Chio Matthew NP-C Attending Provider Active Start: September 20, 2024 End: September 20, 2024 Team Status: Inactive Member Role/Relationship Status Dates Dr. Dajuan Eric MD Primary Care Provider Active Start: September 26, 2024 End: September 26, 2024 Dr. Dajuan Eric MD Referring Provider Active Start: September 26, 2024 End: September 26, 2024 Jodie Whitaker PA, PA Attending Provider Active Start: September 26, 2024 End: September 26, 2024 Team Status: Inactive Member Role/Relationship Status Dates Dr. Dajuan Eric MD Primary Care Provider Active Start: October 03, 2024 End: October 03, 2024 Dr. Marisel Carter MD Attending Provider Active Start: October 03, 2024 End: October 03, 2024 Dr. Marisel Carter MD Referring Provider Active Start: October 03, 2024 End: October 03, 2024 Team Status: Inactive Member Role/Relationship Status Dates Dr. Dajuan Eric MD Primary Care Provider Active Start: October 10, 2024 End: October 10, 2024 Dr. Dajuan Eric MD Referring Provider Active Start: October 10, 2024 End: October 10, 2024 Jodie ISBELL PA Attending Provider Active Start: October 10, 2024 End: October 10, 2024 Team Status: Inactive Member Role/Relationship Status Dates Dr. Dajuan Eric MD Primary Care Provider Active Start: December 02, 2024 End: December 02, 2024 Dr. Dajuan Eric MD Referring Provider Active Start: December 02, 2024 End: December 02, 2024 Wallace Giles MD Attending Provider Active St art: December 02, 2024 End: December 02, 2024 Team Status: Inactive Member Role/Relationship Status Dates Dr. Dajuan Eric MD Primary Care Provider Active Start: December 02, 2024 End: December 02, 2024 Dr. Gio Villalba MD Attending Provider Active S tart: December 02, 2024 End: December 02, 2024 Team Status: Inactive Member Role/Relationship Status Dates Dr. Dajuan Eric MD Primary Care Provider Active Start: December 04, 2024 End: December 04, 2024 Dr. Dajuan Eric MD Referring Provider Active Start: December 04, 2024 End: December 04, 2024 SUKHI Almeida Attending Provider Active Start: December 04, 2024 End: December 04, 2024 Team Status: Inactive Member Role/Relationship Status Dates Dr. Dajuan Eric MD Primary Care Provider Active Start: December 18, 2024 End: December 18, 2024 Dr. Dajuan Eric MD Attending Provider Active Start: December 18, 2024 End: December 18, 2024 Dr. Dajuan Eric MD Referring Provider Active Start: December 18, 2024 End: December 18, 2024 Furniture Repair Technician Relationship Specialty Start Date End Date Dajuan Eric MD [address] [place] [address] PCP - General Internal Medicine 09/07/21 Taylor Alfonso APRN.TECHNICAL SERVICES COORDINATOR [address] [place] [address] Nurse Practitioner Cardiology 08/07/22 Kayce Nix, JOURDAN.TECHNICAL SERVICES COORDINATOR [address] [place] [address] [facility] Internal Medicine 05/20/24 Team Status: Active Member Role/Relationship Status Dates Dr. Dajuan Eric MD Primary care physician Activ e Team Status: Inactive Member Role/Relationship Status Dates Dr. Dajuan Eric MD Primary care physician Activ e Start: December 02, 2024 End: December 02, 2024 Dr. Dajuan Eric MD Referring Provider Active Start: December 02, 2024 End: December 02, 2024 Wallace Giles MD Attending physician Active S tart: December 02, 2024 End: December 02, 2024 Team Status: Inactive Member Role/Relationship Status Dates Dr. Dajuan Eric MD Primary care physician Activ e Start: December 02, 2024 End: December 02, 2024 Dr. Gio Villalba MD Attending physician Active Start: December 02, 2024 End: December 02, 2024 Team Status: Inactive Member Role/Relationship Status Dates Dr. Dajuan Eric MD Primary care physician Activ e Start: December 04, 2024 End: December 04, 2024 Dr. Dajuan Eric MD Referring Provider Active Start: December 04, 2024 End: December 04, 2024 SUKHI Almeida Attending physician Active Start: December 04, 2024 End: December 04, 2024 Team Status: Inactive Member Role/Relationship Status Dates Dr. Dajuan Eric MD Primary care physician Activ e Start: December 18, 2024 End: December 18, 2024 Dr. Dajuan Eric MD Attending physician Active Start: December 18, 2024 End: December 18, 2024 Dr. Dajuan Eric MD Referring Provider Active Start: December 18, 2024 End: December 18, 2024 Team Status: Inactive Member Role/Relationship Status Dates Dr. Dajuan Eric MD Primary care physician Activ e Start: February 27, 2025 End: February 27, 2025 Dr. Dajuan Eric MD Referring Provider Active Start: February 27, 2025 End: February 27, 2025 Anthony Juarez PREDATOR CONTROL TRAPPER, PREDATOR CONTROL TRAPPER-C Attending physician Active Start: February 27, 2025 End: February 27, 2025 INFORMATION SOURCE (unrecogn ized section and content) DATE CREATED AUTHOR 09/11/2021 [facility] DATE CREATED AUTHOR AUTHOR'S ORGANIZ ATION 01/18/2025 [facility] DATE CREATED AUTHOR AUTHOR'S ORGANIZ ATION 03/07/2025 [facility] Goals (unrecognized section and content) Goals may be documented in a n alternate sectionGoals may be documented in an alternate sectionGoals may be documented in an alternate sectionGoals may be documented in an alternate sectionGoals may be documented in an alternate sectionGoals may be documented in an alternate sectionGoals may be documented in an alternate sectionGoals may be documented in an alternate sectionGoals may be documented in an alternate sectionGoals may be documented in an alternate sectionGoals may be documented in an alternate sectionGoals may be documented in an alternate sectionGoals may be documented in an alternate sectionGoals may be documented in an alternate sectionGoals may be documented in an alternate sectionGoals may be documented in an alternate sectionGoals may be documented in an alternate sectionGoals may be documented in an alternate sectionGoals may be documented in an alternate sectionGoals may be documented in an alternate sectionGoals may be documented in an alternate sectionGoals may be documented in an alternate sectionGoals may be documented in an alternate sectionGoals may be documented in an alternate sectionGoals may be documented in an alternate section FOR RECORDS PERTAINING TO PATIENTS WHO ARE [...] BE BASED ON THE PRIMARY CLINICAL RECORDS. [facility] [employer] [facility]. provides no warranty or guarantee of the accuracy or completeness of information in this document.
--- NOTE | 2025-03-14 01:04 | CT_ITS ---
PROCEDURE: BRAIN/HEAD WITHOUT CONTRAST 03/14/2025 REASON FOR EXAM: FALL TECHNIQUE: Procedure Code: CTBR Modality: CT Procedure: BRAIN/HEAD WITHOUT CONTRAST Coronal and Sagittal reconstruction series were provided. One or more dose reduction techniques were used (e.g., Automated exposure control, adjustment of the mA and/or kV according to patient size, use of iterative reconstruction technique. RADIATION DOSE SUMMARY: CTDlvol: 44.99 mGy DLP: 812.98 mGycm COMPARISON: 18-Dec-2024 FINDINGS: Accentuated bilateral cerebral periventricular deep white matter hypodensities denoting hypoperfusion. Sanchez-white matter differentiation is maintained. Normal CT appearance of the posterior fossa structures. No intracerebral or extra axial hemorrhage. Dilated ventricular system, cortical sulci and extra-axial CSF spaces. No definite calvarial fractures. No midline shifts or deformity. The osseous structures in the skull base are unremarkable. Paranasal sinuses are unremarkable. Vascular atheromatous calcifications. CT/Brain/Head without Contrast IMPRESSION: No acute cerebrovascular abnormalities. If clinical symptoms persist, further e valuation with MRI may be considered as clinically warranted. No intra or extra-axial acute hemorrhage. Bilateral cerebral microvascular ischemic changes with brain involutional jamil es. Stable. Reading Location[facility]
--- NOTE | 2025-03-14 01:10 | CT_ITS ---
PROCEDURE: CHEST WITHOUT CONTRAST 03/14/2025 REASON FOR EXAM: DORIAN RIB PAIN POST FALL TECHNIQUE: Chest CT without contrast. Coronal and Sagittal reconstruction series were provided. One or more dose reduction techniques were used (e.g., Automated exposure control, adjustment of the mA and/or kV according to patient size, use of iterative reconstruction technique RADIATION DOSE SUMMARY: CTDlvol: 13.46 mGy DLP: 516.4 mGycm COMPARISON: 05-Sep-2024 CR FINDINGS: Intact bony thoracic cage with no fractures or osseous destruction. The examined vertebrae showing preserved height with no fracture of dislocation. Thoracic spondylosis. No obvious pulmonary masses, consolidations or cavitary changes. Bilateral pulmonary atelectatic changes. The heart size is within normal. Vascular atheromatous calcifications No pleural or pericardial effusion. No pathologically enlarged lymph nodes are noted. No definite mass lesion in the chest wall. Scanned upper abdomen show cholecystectomy clips and bilateral perinephric fat stranding. CT/Chest without Contrast IMPRESSION: No acute cardiopulmonary abnormalities. Intact bony thoracic cage with no fractures or osseous destruction. No pneumothorax. No obvious pulmonary masses or consolidations. Reading Location[facility]
--- NOTE | 2025-03-14 01:10 | CT_ITS ---
PROCEDURE: SPINE CERVICAL WITHOUT CONTRAS 03/14/2025 REASON FOR EXAM: FALL TECHNIQUE: Procedure Code: CTSPC Modality: CT Procedure: SPINE CERVICAL WITHOUT CONTRAS Coronal and Sagittal reconstruction series were provided. One or more dose reduction techniques were used (e.g., Automated exposure control, adjustment of the mA and/or kV according to patient size, use of iterative reconstruction technique. RADIATION DOSE SUMMARY: CTDI Vol 32.56 mGy DLP :745.4 mGycm FINDINGS: Straightened cervical curve denoting myospasm. Mild C4 over C5 anterolithesis. The examined vertebral bodies show no structural collapse or posterior neural elements fractures. Intact atlanto-axial interval. Degenerative changes of the atlanto-odontoid articulation with related capsular calcifications. Cervical spondylodegenerative changes evident by marginal osteophytic lipping and multilevel subchondral sclerosis of the examined vertebral end plates with multilevel disc spaces narrowing with vacuum phenomenon. Multilevel degenerative unco-vertebral arthropathy with osteophytes formation seen encroaching upon the corresponding neural exit foramina. Multilevel degenerative facet arthropathy. Multilevel anterior longitudinal ligament calcifications. Multilevel diffuse disc bulges with posterior osteophytes and annular calcifications indenting the theca and encroaching upon the related neural exit foramina. No paraspinal masses. Carotid atheromatous calcifications. CT/Spine Cervical without Contras IMPRESSION: Straightened cervical curve denoting myospasm. No vertebral fractures, structural collapse or acute dislocation. 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 Reading Location: [facility]
[2025-03-14 01:28] LABS: Anion Gap 11 (5-15); BUN 13 mg/dL (4-19); BUN/Creat Ratio 16.8 RATIO (10-20); Calcium,Total 9.0 mg/dL (7.6-11.0); Carbon Dioxide 25.7 mmol/L (21.0-32.0); Chloride 103 mmol/L (98-108); Estimated Creatinine Clearance 57.88 ml/min (50-250); Glucose 152 mg/dL (70-99); Magnesium 2.1 mg/dL (1.5-2.2); Potassium 4.0 mmol/L (3.3-5.1)
--- NOTE | 2025-03-14 01:35 | RAD_ITS ---
PROCEDURE: WRIST MIN 3 VIEWS 03/14/2025 REASON FOR EXAM: PAIN TECHNIQUE: Procedure Code: RADWR Modality: DX Procedure: WRIST MIN 3 VIEWS Laterality: Right COMPARISON: None. FINDINGS: Chondrocalcinosis is noted. Mild osteopenia of the visualized bones. Degenerative joint disease. No fracture or dislocation is seen. No lytic or blastic bone lesion is noted. RAD/Wrist min 3 Views IMPRESSION: No evidence for acute abnormality. Reading Location[facility]
--- NOTE | 2025-03-14 01:35 | RAD_ITS ---
PROCEDURE: PELVIS 1 OR 2 VIEWS 03/13/2025 REASON FOR EXAM: FALL TECHNIQUE: Procedure Code: RADPEL Modality: DX Procedure: PELVIS 1 OR 2 VIEWS COMPARISON: None FINDINGS: No acute fracture or dislocations. [id number] degenerative changes bilateral hips and sacroiliac joints. No acute soft tissue abnormalities. No radiographic foreign body. RAD/Pelvis 1 or 2 Views IMPRESSION: No acute fracture or dislocations. [id number] degenerative changes bilate ral hips and sacroiliac joints. Reading Location: [id number]
--- NOTE | 2025-03-14 04:05 | EX.ED.DYSGE1 ---
HPI History of Present Illness Chief Complaint: Fall Informant: patient and EMS Narrative Narrative: Patient is a 74-year-old female with past medical history of hypertension fibromyalgia chronic pain and paroxysmal atrial fibrillation currently on Eliquis. She states her pain management doctor has recently decreased her [place] from 4 a day to 3-day but added a Butrans patch. She states this evening she stood up and was in the restroom when she felt lightheaded and passed out. She states that she fell and struck the edge of the tub/shower. She states that as she started to fall she regained consciousness. She reports pain in her right wrist and bilateral mid back region. She reports that she did not experience chest pain or palpitations prior to the event. As she is unsure what led to the bout of syncope and if there is any underlying trauma EMS was called and she was brought in for evaluation [facility] Medical History Right shoulder pain Hyperlipidemia Costochondritis Chronic anticoagulation Atelectasis Wears glasses Depression Anxiety Easy bruising TIA (transient ischemic attack) Difficulty swallowing Chronic cough Former smoker CPAP (continuous positive airway pressure) dependence History of echocardiogram History of stress test Cardiology follow-up encounter Acute sinusitis, unspecified Paroxysmal atrial fibrillation Essential hypertension IBS (irritable bowel syndrome) Type 2 diabetes mellitus without complication, with long-term current use of insulin Osteopenia Intractable back pain Insomnia Hypothyroidism GERD (gastroesophageal reflux disease) Folic acid deficiency Fibromyalgia Chronic fatigue syndrome ADD (attention deficit disorder) SOB (shortness of breath) Arthritis Asthma Atrial fibrillation Home Medications ?Medication ?Instructions ?Recorded ?Last Taken ?Type thyroid (pork) 60 mg tablet (MEETING FACILITATOR 60 mg PO DAILY thyroid 01/13/22 Unknown History Thyroid) wzmhkno-hdxbtouocsmvm-ftuwjogq 250 1 tab PO Q6H PRN pain 09/15/22 Unknown History mg-250 mg-65 mg tablet (Excedrin Migraine) gabapentin 300 mg capsule 600 mg PO Q8H nerve pain 09/15/22 09/05/24 History gabapentin 300 mg capsule 900 mg PO QHS 09/15/22 Unknown History multivitamin-ferrous 1 tab PO 1700 Supplement 09/15/22 07/16/23 History fumarate-folic acid 18 mg-400 mcg tablet (Centrum Women) albuterol sulfate 90 mcg/actuation 2 puff inhalation Q4H PRN 09/19/22 Unknown Rx aerosol inhaler (Ventolin HFA) shortness of breath or wheezing #18 grams apixaban 5 mg tablet (Eliquis) 5 mg PO BID blood thinner #60 tabs 06/23/23 08/03/23 Rx dicyclomine 20 mg tablet 20 mg PO BID stomach #60 tabs 09/18/23 Unknown Rx acetaminophen 325 mg tablet 650 mg PO Q4H PRN fever or pain 06/04/24 Unknown History empagliflozin 25 mg tablet 25 mg PO QDAY diabetes 06/04/24 Unknown History (Jardiance) furosemide 40 mg tablet (Lasix) 40 mg PO QDAY PRN SOB, Edema 06/04/24 Unknown History glipizide 2.5 mg tablet, extended 2.5 mg PO QDAY diabetes 06/04/24 09/05/24 History release 24 hr ipratropium 0.5 mg-albuterol 3 mg 3 ml inhalation Q6H PRN shortness 06/04/24 Unknown History (2.5 mg base)/3 mL nebulization of breath or wheezing soln magnesium oxide 400 mg PO QHS Supplement 06/04/24 Unknown History tizanidine 2 mg capsule 4 mg PO QHS muscle spasms 06/04/24 Unknown History trazodone 150 mg tablet 300 mg PO QHS sleep 06/04/24 Unknown History aluminum-mag hydroxide-simethicone 30 ml PO Q4H PRN dyspepsia 07/26/24 Unknown History 200 mg-200 mg-20 mg/5 mL oral susp dextrose 40 % oral gel (Glucose 10 g PO Q15M PRN hypoglycemia 07/26/24 Unknown History Gel) fluticasone furoate 200 1 inh inhalation Q24H #30 ea 07/26/24 Unknown Rx mcg/actuation blister powder for inhalation (Arnuity Ellipta) magnesium hydroxide 400 mg/5 mL 30 ml PO ONCE PRN stomach upset 07/26/24 Unknown History oral suspension (Milk of Magnesia) diphenhydramine HCl 25 mg capsule 25 mg PO Q4H PRN allergy symptoms 09/05/24 Unknown History (Allergy (diphenhydramine)) montelukast 10 mg tablet 10 mg PO QHS allergies 09/05/24 Unknown History (Singulair) potassium chloride 20 mEq 20 meq PO DAILY PRN supplement 09/05/24 Unknown History tablet,extended release(part/cryst) (Klor-Con M) rosuvastatin 10 mg tablet (Crestor) 10 mg PO QHS cholesterol 09/05/24 Unknown History tamsulosin 0.4 mg capsule (Flomax) 0.4 mg PO DAILY prostate 09/05/24 Unknown History esomeprazole magnesium 40 mg 40 mg PO DAILY Supplement 09/06/24 Unknown History capsule,delayed release lidocaine 4 % topical patch 1 patch topical QDAY 09/20/24 Unknown History nitroglycerin 0.4 mg sublingual 0.4 mg sublingual Q5M PRN 09/20/24 Unknown History tablet amiodarone 200 mg tablet 100 mg (1/2 x 200 mg) PO QDAY #15 09/26/24 Unknown Rx tabs bisacodyl 10 mg rectal suppository 10 mg [place] QDAY PRN constipation 10/10/24 Unknown History dimenhydrinate 50 mg tablet 50 mg PO .COMPLEX PRN nausea and 10/10/24 Unknown History (Dramamine) vomiting linaclotide 290 mcg capsule 290 mcg PO QAM stomach #90 caps 12/04/24 Unknown Rx (Linzess) simethicone 80 mg chewable tablet 80 mg PO 4-6XD PRN abdominal 12/04/24 Unknown Rx (Gas Relief (simethicone)) distention #60 tabs ascorbic acid (vitamin C) 500 mg 500 mg PO 1700 Supplement 02/27/25 Unknown History chewable tablet (Acerola C) guaifenesin 600 mg tablet, 600 mg PO BID 02/27/25 Unknown History extended release 12 hr (Mucinex) hydrocodone-acetaminophen 5-325mg 1 tab PO Q8H pain 02/27/25 Unknown History 5mg-325mg levomefolate 7.5 mg-algal oil 2 cap PO QDAY 02/27/25 Unknown History 90.314 mg capsule (Deplin (algal oil)) meloxicam 7.5 mg tablet 7.5 mg PO QDAY 02/27/25 Unknown History ondansetron HCl 4 mg tablet 4 mg PO Q8H PRN nausea and vomiting 02/27/25 Unknown History buprenorphine 5 mcg/hour weekly 1 patch transdermal Q7D 03/14/25 Unknown History transdermal patch (Butrans) Allergy/AdvReac Type Severity Reaction Status Date / Time Environmental Allergies: Allergy Severe Anaphylaxis Verified 03/14/25 00:07 Uncoded pregabalin (From Lyrica) Allergy Severe Suicidal Verified 03/14/25 00:07 ideations prochlorperazine (From Allergy Severe hallucinati Verified 03/14/25 00:07 Compazine) ons metformin Allergy Unknown stomach Verified 03/14/25 00:07 cramping Sulfa (Sulfonamide Allergy Unknown unknown Verified 03/14/25 00:07 Antibiotics) ketorolac (From Toradol) Allergy Pain in Verified 03/14/25 00:07 joints doxycycline AdvReac Unknown Nausea/Vom/ Verified 03/14/25 00:07 Diarrhea Family History Other Cancer Diabetes Heart disease Surgical History H/O bilateral cataract extraction History of tonsillectomy History of total abdominal hysterectomy and bilateral salpingo-oophorectomy History of cholecystectomy History of colonoscopy History of appendectomy Hx of shoulder surgery Social History household members: none Smoking Status: Former smoker how long ago did patient quit smokin alcohol intake: former year quit: 1995 substance use type: former substance user Date of last use: 1969 ROS ROS ED Constitutional Constitutional ED: Denies chills or fever(s) Eyes Eyes: Denies blurry vision or change in vision ENT ENT ED: Denies sore throat Cardiovascular Cardiovascular: Reports other Details: Positive syncope ; Denies chest pain, palpitations or racing heartbeat Respiratory/Chest Respiratory/Chest: Denies cough or dyspnea Gastrointestinal Gastrointestinal: Denies abdominal pain, diarrhea, nausea or vomiting Musculoskeletal Musculoskeletal: Reports back pain and neck pain Integumentary Denies Abrasions or rash Neurologic Neurologic: Denies headache(s) or paresthesias Hematologic/Lymphatic Hematologic/Lymphatic: Reports easy bleeding and easy bruising EXAM Physical Exam Const Vital Signs: 03/14/25 00:02 03/14/25 00:07 03/14/25 00:07 Temperature 97.8 F Temperature Source Oral Pulse Rate 84 Respiratory Rate 12 Respiratory Effort Normal Normal Respiratory Depth Normal Respiratory Pattern Normal Normal Blood Pressure 91/52 L Blood Pressure Mean 65 Pulse Ox 91 Oxygen Delivery Method Room Air Room Air 03/14/25 01:01 03/14/25 02:00 03/14/25 03:00 Temperature Temperature Source Pulse Rate 50 L 49 L 48 L Respiratory Rate 19 H 19 H 25 H Respiratory Effort Respiratory Depth Respiratory Pattern Blood Pressure 102/50 L 114/62 117/62 Blood Pressure Mean 67 79 80 Pulse Ox 97 92 99 Oxygen Delivery Method Room Air Room Air Room Air Positive well nourished and well developed General Appearance ED: well developed HEENT Reports dry mucous membranes HEENT Narrative: Normocephalic atraumatic; no signs of depressed or basilar skull fracture Mucous membranes are dry and tacky Mouth ED: Yes dry mucous membranes Mouth: dry mucous membranes Eyes PERRL and EOMs intact bilaterally General Eye ED: Negative for scleral icterus Neck Neck Narrative: C-collar in place No bony deformity or step-off of the cervical spine but there is midline pain on palpation Chest Wall Chest Narrative: No bony deformity or crepitance There is mild pain with palpation bilaterally of the lateral chest wall/rib regions 6-8. Resp normal respiratory effort and clear to auscultation bilaterally Resp Narrative: Breath sounds are diminished throughout but overall clear to auscultation without signs of respiratory distress Cardio regular rate and regular rhythm GI non-tender, non-distended and no masses GI Narrative: Soft nontender nondistended with hypoactive bowel sounds. No voluntary guarding or rigidity or pulsatile mass No overlying abrasions or ecchymosis Auscultation: hypoactive bowel sounds Palpation: soft Back/Spine Back/Spine Narrative: No bony deformity or step-off of the thoracic or lumbar spine No midline tenderness to palpation Extremity Extremity Narrative: Pelvis is stable and there is no shortening or external rotation of either lower extremity There is mild pain with palpation of the right wrist diffusely without bony deformity or joint effusion All compartments are soft and compressible going against compartment syndrome Neuro oriented x3, CN's II-XII intact bilaterally and no sensory deficits noted Sensorium / Orientation: alert Motor Exam: strength 5/5 throughout Psych mental status grossly normal Skin no rashes or lesions noted and No skin turgor normal Skin Narrative: Skin turgor is increased MDM MDM MDM Narrative Medical decision making narrative: Patient arrived to the ER awake and alert with no focal neurologic deficit. She reported a syncopal event while standing but states she had regained consciousness essentially right after the event occurred as she remembers striking the bathtub/shower. With her being on Eliquis there is concern for traumatic subarachnoid or subdural hemorrhage. Patient also could have a cervical compression fracture or rib fracture based on her location and report of trauma/pain. There is concern for long bone injury as well such as the pubic rami/femoral neck or the distal radius/ulna. In order to ensure she does not have acute blood loss anemia or acute kidney injury basic labs were obtained as well. Labs revealed no clinically significant findings. Imaging studies revealed no signs of underlying trauma. Patient's physical exam did show changes consistent with dehydration and based on her history I felt that this was most likely an orthostatic syncopal event versus a cardiac dysrhythmia. She was given IV fluid and the blood pressure improved. At the conclusion of her workup she was ambulated and could stand and ambulate with a steady gait. Therefore at this time with workup revealing no signs of acute trauma or other lab abnormality and the patient's symptoms have resolved with mild hydration there is no need for further intervention and she is otherwise safe for discharge. History & Record Review Discussion w/independent historian: EMS personnel and Patient Lab Data Attestation: I reviewed the patient's lab results. Labs: Laboratory Results - last 24 hr 03/14/25 00:03 WBC 7.9 RBC 4.24 Hgb 12.3 Hct 39.0 MCV 92.0 MCH 29.0 MCHC 31.5 L RDW Std Deviation 42.6 RDW Coeff of Dave 12.7 Plt Count 179 MPV 9.1 Immature Gran % (Auto) 0.400 Neut % (Auto) 69.7 Lymph % (Auto) 18.2 L King % (Auto) 10.7 H Eos % (Auto) 0.6 Baso % (Auto) 0.4 Absolute Neuts (auto) 5.5 Absolute Lymphs (auto) 1.43 Nucleated RBC % 0 Sodium 140 Potassium 4.0 Chloride 103 Carbon Dioxide 25.7 Anion Gap 11 BUN 13 Creatinine 0.79 Estim Creat Clear Calc 57.88 Est GFR (MDRD) Non-Af 79 BUN/Creatinine Ratio 16.8 Glucose 152 H Calcium 9.0 Magnesium 2.1 Radiography Diagnostic Testing: Clinical Impression(s) from Imaging Studies Brain CT 03/14/25 01:04 IMPRESSION: No acute cerebrovascular abnormalities. If clinical symptoms persist, further evaluation with MRI may be considered as clinically warranted. No intra or extra-axial acute hemorrhage. Bilateral cerebral microvascular ischemic changes with brain involutional changes. Stable. Reading Location: [facility] Cervical Spine CT 03/14/25 01:10 IMPRESSION: Straightened cervical curve denoting myospasm. No vertebral fractures, structural collapse or acute dislocation. Cervical spondylodegenerative changes with multilevel uncovertebral and facet arthropathy along with diffuse disc bulges inducing spinal canal and neural exit pathway compromise. Reading Location: [facility] Chest CT 03/14/25 01:10 IMPRESSION: No acute cardiopulmonary abnormalities. Intact bony thoracic cage with no fractures or osseous destruction. No pneumothorax. No obvious pulmonary masses or consolidations. [facility] Pelvis X-Ray 03/14/25 01:35 IMPRESSION: No acute fracture or dislocations. Xcnt-xo-lvurvheu degenerative changes bilateral hips and sacroiliac joints. Reading Location: [id number] Wrist X-Ray 03/14/25 01:35 IMPRESSION: No evidence for acute abnormality. [facility] Pelvis x-ray as interpreted by the emergency medicine physician reveals no acute fracture or dislocation Wrist x-ray as interpreted by the emergency medicine reveals no acute fracture dislocation or joint effusion Discharge Plan Triage Chief Complaint: Fall Other Complaint: Syncope ED Provider: Jorge Be Dx/Rx/DC Orders Clinical Impression: Syncope, Back contusion, Current use of group home anticoagulation, Dehydration, Paroxysmal atrial fibrillation Instructions: ED Back Contusion, ED Fainting, Uncertain Cause Prescriptions: No Action thyroid (pork) [MEETING FACILITATOR Thyroid] 60 mg tablet 60 mg PO DAILY gabapentin 300 mg capsule 900 mg PO QHS gabapentin 300 mg capsule 600 mg PO Q8H Centrum Women 18-400 mg-mcg tablet 1 tab PO 1700 Excedrin Migraine 250-250-65 mg tablet 1 tab PO Q6H PRN (Reason: pain) trazodone 150 mg tablet 300 mg PO QHS dimenhydrinate [Dramamine] 50 mg tablet 50 mg PO .COMPLEX PRN (Reason: nausea and vomiting) Rx Instructions: 50 mg orally Q18 hours PRN; hydrocodone-acetaminophen 5-325 mg tablet 1 tab PO Q8H Patient Comments: TAKE 1 TABLET BY MOUTH TWICE DAILY FOR 28 DAYS albuterol sulfate [Ventolin HFA] 90 mcg/actuation HFA aerosol inhaler 2 puff inhalation Q4H PRN (Reason: shortness of breath or wheezing) Qty: 18 6RF Eliquis 5 mg tablet 5 mg PO BID Qty: 60 11RF furosemide [Lasix] 40 mg tablet 40 mg PO QDAY PRN (Reason: SOB, Edema) dextrose [Glucose Gel] 40 % gel 10 g PO Q15M PRN (Reason: hypoglycemia) Rx Instructions: until symptoms of low blood sugar are controlled magnesium hydroxide [Milk of Magnesia] 400 mg/5 mL suspension 30 ml PO ONCE PRN (Reason: stomach upset) alum-mag hydroxide-simeth 200-200-20 mg/5 mL suspension 30 ml PO Q4H PRN (Reason: dyspepsia) Arnuity Ellipta 200 mcg/actuation blister with device 1 inh inhalation Q24H Qty: 30 5RF acetaminophen 325 mg tablet 650 mg PO Q4H PRN (Reason: fever or pain) glipizide 2.5 mg tablet extended release 24hr 2.5 mg PO QDAY ipratropium-albuterol 0.5 mg-3 mg(2.5 mg base)/3 mL solution for nebulization 3 ml inhalation Q6H PRN (Reason: shortness of breath or wheezing) Jardiance 25 mg tablet 25 mg PO QDAY magnesium oxide 400 mg magnesium tablet 400 mg PO QHS tizanidine 2 mg capsule 4 mg PO QHS Deplin (algal oil) 7.5-90.314 mg capsule 2 cap PO QDAY Linzess 290 mcg capsule 290 mcg PO QAM Qty: 90 3RF simethicone [Gas Relief (simethicone)] 80 mg tablet,chewable 80 mg PO 4-6XD PRN (Reason: abdominal distention) Qty: 60 0RF lidocaine 4 % adhesive patch,medicated 1 patch topical QDAY nitroglycerin 0.4 mg tablet, sublingual 0.4 mg sublingual Q5M PRN Rx Instructions: do not exceed 3 doses per episode guaifenesin [Mucinex] 600 mg tablet extended release 12hr 600 mg PO BID ondansetron HCl 4 mg tablet 4 mg PO Q8H PRN (Reason: nausea and vomiting) amiodarone 200 mg tablet 100 mg PO QDAY Qty: 15 11RF bisacodyl 10 mg suppository 10 mg [place] QDAY PRN (Reason: constipation) meloxicam 7.5 mg tablet 7.5 mg PO QDAY diphenhydramine HCl [Allergy (diphenhydramine)] 25 mg capsule 25 mg PO Q4H PRN (Reason: allergy symptoms) rosuvastatin [Crestor] 10 mg tablet 10 mg PO QHS tamsulosin [Flomax] 0.4 mg capsule 0.4 mg PO DAILY potassium chloride [Klor-Con M20] 20 mEq tablet,ER particles/crystals 20 meq PO DAILY PRN (Reason: supplement) Patient Comments: only when pt takes lasix. montelukast [Singulair] 10 mg tablet 10 mg PO QHS esomeprazole magnesium 40 mg capsule,delayed release(DR/EC) 40 mg PO DAILY ascorbic acid (vitamin C) [Acerola C] 500 mg tablet,chewable 500 mg PO 1700 buprenorphine [Butrans] 5 mcg/hour patch weekly 1 patch transdermal Q7D dicyclomine 20 mg tablet 20 mg PO BID Qty: 60 6RF Primary Care Provider: Dajuan Eric Referrals: Dajuan Eric MD [Primary Care Provider, Internal Medicine] Activity Restrictions/Additional Instructions: Your workup today revealed no signs of underlying trauma or clinically significant lab abnormality. Please keep yourself well-hydrated as your history and exam would indicate that mild dehydration was the cause of your event this evening/morning. Return to the ER should you have any further concerns Print Language: [place]ralt[place] Disposition Disposition: Home, Self Care
--- NOTE | 2025-03-14 05:56 | ED.RN ---
Spoke with the RN at [facility], no further questions at this time.
== END 2025-03-14 08:15 | disposition home or self-care (01) ==
PROVIDERS: Emergency Provider Emergency Medicine; PCP Internal Medicine; Visit Provider Emergency Medicine
DX: R55 Syncope and collapse (principal); I48.0 Paroxysmal atrial fibrillation; E11.9 Type 2 diabetes mellitus without complications; E86.0 Dehydration; Z87.891 Personal history of nicotine dependence; E78.5 Hyperlipidemia, unspecified; Z90.710 Acquired absence of both cervix and uterus; Z79.01 Long term (current) use of anticoagulants; I10 Essential (primary) hypertension; Z99.89 Dependence on other enabling machines and devices; W18.09XA Striking against other object with subsequent fall, initial encounter; Y92.012 Bathroom of single-family (private) house as the place of occurrence of the external cause; Z86.73 Personal history of transient ischemic attack (TIA), and cerebral infarction without residual deficits; K21.9 Gastro-esophageal reflux disease without esophagitis; E03.9 Hypothyroidism, unspecified; Z90.49 Acquired absence of other specified parts of digestive tract; S20.229A Contusion of unspecified back wall of thorax, initial encounter
CPT/HCPCS: 70450; 71250; 72125; 72170; 73110; 80048; 83735; 85025; 96360; 96361; 99285

== ENCOUNTER 2025-04-22 10:37 | Outpatient (CLI) | payer MEDICARE, MEDICAID, SELFPAY ==
[2025-04-22 15:07] LABS: Hematocrit 43.1 % (37-47); Hemoglobin 13.6 g/dL (12.0-15.0); Mean Corp Hgb Conc 31.6 g/dL (32-36); Mean Corpuscular Volume 94.7 fL (81-99); Mean Platelet Vol. 9.2 fl (6.2-12.0); Platelet Count 232 K/mm3 (150-450); RBC Distribution Width CV 12.4 % (11.6-14.6); RBC Distribution Width SD 43.2 fl (35.1-43.9); Red Blood Count 4.55 M/mm3 (4.2-5.4); White Blood Count 6.8 K/mm3 (4.4-11.0)
[2025-04-22 15:44] LABS: Ammonia 23.5 umol/L (11-51)
[2025-04-22 15:49] LABS: AST(SGOT) 26 U/L (<=31); Alanine Aminotransfer ALT/SGPT 23 U/L (<=34); Albumin, Serum 4.3 g/dL (3.4-4.8); Alkaline Phosphatase 93 U/L (35-104); Anion Gap 10 (5-15); BUN 14 mg/dL (4-19); BUN/Creat Ratio 17.2 RATIO (10-20); Calcium,Total 9.6 mg/dL (7.6-11.0); Carbon Dioxide 29.4 mmol/L (21.0-32.0); Chloride 104 mmol/L (98-108); Globulin 2.7 g/dL (2.2-4.2); Glucose 124 mg/dL (70-99); Magnesium 2.6 mg/dL (1.5-2.2); Potassium 4.2 mmol/L (3.3-5.1)
[2025-04-22 16:18] LABS: Vitamin B12 2624 pg/mL (180-914)
[2025-04-25 12:08] LABS: Vitamin D 1,25-Dihydroxy 47.3 pg/mL (24.8-81.5)
[2025-04-27 14:07] LABS: Folate, Hemolysate Test 595.0 ng/mL (Not Estab.); Folate, RBC (Hct) Test 43.2 % (34.0-46.6); Folates, RBC Test 1377 ng/mL (>498); VITAMIN B6 7.1 ug/L (3.4-65.2); Vitamin B1, Thiamine 173.0 nmol/L (66.5-200.0)
== END 2025-04-22 23:59 | disposition home or self-care (01) ==
LOC: MTLAB 10:38
PROVIDERS: PCP Internal Medicine; Referring Provider Psychiatry & Neurology Neurology; Visit Provider Psychiatry & Neurology Neurology
DX: G62.9 Polyneuropathy, unspecified (principal); I48.0 Paroxysmal atrial fibrillation; E03.9 Hypothyroidism, unspecified
CPT/HCPCS: 36415; 80053; 82140; 82607; 82652; 82747; 83735; 83883; 84207; 84425; 84439; 84443; 85014; 85027

== ENCOUNTER → 2025-05-13 | Outpatient (CLI) | payer MEDICARE, MEDICAID, SELFPAY ==
--- NOTE | 2025-05-13 08:37 | MRI_ITS ---
PROCEDURE: BRAIN W/WO CONTRAST 05/13/2025 REASON FOR EXAM: MIGRAINE HEADACHES TECHNIQUE: Procedure Code: [id number] Modality: MR Procedure: BRAIN W/WO CONTRAST Multiplanar and multisequence images were obtained. CONTRAST: Clariscan VOLUME: 14 mL COMPARISON: None available FINDINGS: No acute infarct or hemorrhage. Scattered nonspecific foci of periventricular and subcortical T2/FLAIR white matter hyperintensities in the cerebral hemispheres likely reflect chronic microvascular changes. There is no abnormal intracranial enhancement. No extra-axial fluid collection. No significant mass effect or herniation of the brain. The ventricular system and sulci/fissures are within expected limits of size and configuration for the patient's stated age. The basal cisterns are patent. The intracranial large vessel arterial flow voids are maintained. The mastoid air cells clear. There is scattered paranasal mucosal thickening. Bilateral ocular lens replacements. The calvarial bone marrow signal is within normal limits. MRI/Brain W/WO Contrast IMPRESSION: No acute infarct, hemorrhage, significant mass effect, or intracranial enhancin g lesion. Chronic microvascular ischemic changes. Reading Location: [id number]
--- NOTE | 2025-05-13 08:37 | MRI_ITS ---
PROCEDURE: SPINE CERVICAL (ROUTINE) 05/13/2025 REASON FOR EXAM: GAIT DISORDER, CERVICAL SPINAL STENOSIS; NECK PAIN TECHNIQUE: Procedure Code: MRISPC Modality: MR Procedure: SPINE CERVICAL (ROUTINE) Multiplanar and multisequence images were obtained without IV contrast administration. COMPARISON: MRI cervical spine 04/29/2024 FINDINGS: There is loss of the usual cervical lordosis at the lower portion of the cervical spine. The atlantooccipital and atlantoaxial joints appear normally aligned. The cervical vertebral bodies are normal in height. Stable C4-C5 anterolisthesis. The cervical bone marrow signal is within normal limits. Multilevel disc desiccation. There is no evidence of cervical spinal cord signal abnormality. C2-C3: No significant spinal canal stenosis or neural foraminal narrowing. C3-C4: Disc bulge, bilateral facet arthrosis, and uncovertebral spurring contribute to moderate spinal canal stenosis with flattening of the ventral cord. Moderate left neural foraminal narrowing. No significant right neural foraminal narrowing. C4-C5: Uncovering of the disc, left paracentral disc protrusion, bilateral facet arthrosis, and uncovertebral spurring. Bcum-xd-qydejnpv spinal canal stenosis with indentation of the ventral cord predominantly secondary to disc herniation. Moderate to severe left neural foraminal narrowing. No significant right neural foraminal narrowing. C5-C6: Posterior disc osteophyte complex, bilateral facet arthrosis, and uncovertebral spurring. Mild spinal canal stenosis. Moderate bilateral neural foraminal narrowing. C6-C7: Posterior disc osteophyte complex, bilateral facet arthrosis, and uncovertebral spurring. Mild spinal canal stenosis and flattening of the ventral cord. Mild right and zocvbchg-cu-qulbbw left neural foraminal narrowing. C7-T1: No significant spinal canal stenosis or neural foraminal narrowing. MRI/Spine Cervical (Routine) IMPRESSION: Compared to MRI of the cervical spine 04/29/2024, stable cervical spondylosis w ith multiple levels of [id number]-[id number]-[id number] neural foraminal stenosis. Additional details as discussed above. Reading Location: [id number]
--- NOTE | 2025-05-13 08:37 | MRI_ITS ---
PROCEDURE: SPINE LUMBAR (ROUTINE) 05/13/2025 REASON FOR EXAM: LOW BACK PAIN; GAIT DISORDER TECHNIQUE: Procedure Code: MRISPL Modality: MR Procedure: SPINE LUMBAR (ROUTINE) COMPARISON: MRI lumbar spine 06/26/2023. FINDINGS: For the purposes of this report, the most caudal rectangular vertebral body will be designated L5. The next most caudal trapezoidal shaped vertebral body will be designated S1. The intervening disc at the lumbosacral angle is designated L5-S1. The normal lumbar lordosis is maintained. Lumbar dextroscoliosis. The lumbar vertebral bodies are normal in height. Grade 1 L1-L2 and L2-L3 retrolisthesis. Well-circumscribed T1/T2 hyperintense lesion in the L2 vertebral body most compatible with osseous hemangioma. Multilevel disc desiccation and intervertebral disc space height loss. Scattered small Schmorl's nodes in the lumbar spine. There is no evidence of signal abnormality in the imaged distal spinal cord. The conus medullaris terminates at the level of L1. T12-L1: No significant spinal canal stenosis or neural foraminal narrowing. L1-L2: No significant spinal canal stenosis or neural foraminal narrowing. L2-L3: Disc bulge, bilateral facet arthrosis, and ligamentum flavum hypertrophy. Mild spinal canal stenosis. Mild bilateral neural foraminal narrowing. Type 1 Modic endplate changes. L3-L4: Disc bulge, bilateral facet arthrosis, and ligamentum flavum hypertrophy contribute to moderate spinal canal stenosis and subarticular zone narrowing. Mild right and egbywnxn-gw-efzmaa left neural foraminal narrowing. Type 2 Modic endplate changes. L4-L5: Disc bulge, bilateral facet arthrosis, and ligamentum flavum hypertrophy contribute to severe spinal canal stenosis. Moderate bilateral neural foraminal narrowing. L5-S1: Disc bulge, bilateral facet arthrosis, and ligamentum flavum hypertrophy contribute to mild spinal canal stenosis. Mild right neural foraminal narrowing. Intact left neural foramen. Fatty atrophy of the posterior paraspinal muscles. There is dilatation of the bilateral renal pelvises. MRI/Spine Lumbar (Routine) IMPRESSION: Overall stable lumbar spondylosis most marked at L4-L5 where there is severe sp inal canal stenosis. Reading Location: [id number]
== END | disposition home or self-care (01) ==
LOC: MRI 08:32
PROVIDERS: PCP Internal Medicine; Referring Provider Psychiatry & Neurology Neurology; Visit Provider Psychiatry & Neurology Neurology
DX: G43.009 Migraine without aura, not intractable, without status migrainosus (principal); M54.2 Cervicalgia; M48.02 Spinal stenosis, cervical region; R26.9 Unspecified abnormalities of gait and mobility; M54.50 Low back pain, unspecified
CPT/HCPCS: 70553; 72141; 72148; A9575

== ENCOUNTER 2025-05-15 09:47 | Emergency (ER) | payer MEDICARE, MEDICAID, SELFPAY ==
[2025-05-15 09:48] VITALS: BP 124/57; PULSE 76; RESP 18; TEMP 36.6; O2SAT 96
[2025-05-15 09:50] VITALS: BMI 29.1
--- NOTE | 2025-05-15 09:59 | EKG12_ITS ---
Test Reason : Blood Pressure : */* mmHG Vent. Rate : 63 BPM Atrial Rate : 63 BPM P-R Int : 162 ms QRS Dur : 92 ms QT Int : 406 ms P-R-T Axes : 24 -6 -4 degrees QTcB Int : 415 ms Normal sinus rhythm Nonspecific T wave abnormality Abnormal ECG Confirmed by SONI WELSH, RUMA ([id number]), publishing editor SAW TROY ([id number]) on 05/16/2025 9:14:36 AM Referred By: Confirmed By: RUMA SHAFER MD
--- NOTE | 2025-05-15 10:05 | EX.ED.DYSGE1 ---
HPI History of Present Illness Chief Complaint: Syncope Detail of Chief Complaint: Exertional dyspnea. Near syncope no loss of consciousness. Informant: patient Onset/Context/Timing Onset: Days Context: Gradual Onset Timing: Intermittent Current Severity: Mild Maximum Severity: Mild Narrative Narrative: 75-year-old female history of A-fib on Eliquis, hypertension and diabetes. Says since Monday she has had intermittent exertional shortness of breath not when she is supine. No chest pain. No fever or chills. No nausea, vomiting or diarrhea. No melena. She is on the blood thinner Eliquis due to her A-fib. Said recently she has had lower extremity swelling and her primary care physician's office did not a BNP that was elevated at 1100. She is currently on Lasix. Prior similar symptoms: Yes Recent Illness/Hospitalization: No PFSH PFSH Medical History Right shoulder pain Hyperlipidemia Costochondritis Chronic anticoagulation Atelectasis Wears glasses Depression Anxiety Easy bruising TIA (transient ischemic attack) Difficulty swallowing Chronic cough Former smoker CPAP (continuous positive airway pressure) dependence History of echocardiogram History of stress test Cardiology follow-up encounter Acute sinusitis, unspecified Paroxysmal atrial fibrillation Essential hypertension IBS (irritable bowel syndrome) Type 2 diabetes mellitus without complication, with long-term current use of insulin Osteopenia Intractable back pain Insomnia Hypothyroidism GERD (gastroesophageal reflux disease) Folic acid deficiency Fibromyalgia Chronic fatigue syndrome ADD (attention deficit disorder) SOB (shortness of breath) Arthritis Asthma Atrial fibrillation Home Medications ?Medication ?Instructions ?Recorded ?Last Taken ?Type thyroid (pork) 60 mg tablet (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 60 mg PO DAILY thyroid 01/13/22 Unknown History Thyroid) [id number]-[id number] 250 1 tab PO Q6H PRN pain 09/15/22 Unknown History mg-250 mg-65 mg tablet (Excedrin Migraine) gabapentin 300 mg capsule 600 mg PO Q8H nerve pain 09/15/22 09/05/24 History gabapentin 300 mg capsule 900 mg PO QHS 09/15/22 Unknown History multivitamin-ferrous 1 tab PO 1700 Supplement 09/15/22 07/16/23 History fumarate-folic acid 18 mg-400 mcg tablet (Centrum Women) albuterol sulfate 90 mcg/actuation 2 puff inhalation Q4H PRN 09/19/22 Unknown Rx aerosol inhaler (Ventolin HFA) shortness of breath or wheezing #18 grams apixaban 5 mg tablet (Eliquis) 5 mg PO BID blood thinner #60 tabs 06/23/23 08/03/23 Rx dicyclomine 20 mg tablet 20 mg PO BID stomach #60 tabs 09/18/23 Unknown Rx acetaminophen 325 mg tablet 650 mg PO Q4H PRN fever or pain 06/04/24 Unknown History empagliflozin 25 mg tablet 25 mg PO QDAY diabetes 06/04/24 Unknown History (Jardiance) furosemide 40 mg tablet (Lasix) 40 mg PO QDAY PRN SOB, Edema 06/04/24 Unknown History glipizide 2.5 mg tablet, extended 2.5 mg PO QDAY diabetes 06/04/24 09/05/24 History release 24 hr ipratropium 0.5 mg-albuterol 3 mg 3 ml inhalation Q6H PRN shortness 06/04/24 Unknown History (2.5 mg base)/3 mL nebulization of breath or wheezing soln magnesium oxide 400 mg PO QHS Supplement 06/04/24 Unknown History tizanidine 2 mg capsule 4 mg PO QHS muscle spasms 06/04/24 Unknown History trazodone 150 mg tablet 300 mg PO QHS sleep 06/04/24 Unknown History aluminum-mag hydroxide-simethicone 30 ml PO Q4H PRN dyspepsia 07/26/24 Unknown History 200 mg-200 mg-20 mg/5 mL oral susp dextrose 40 % oral gel (Glucose 10 g PO Q15M PRN hypoglycemia 07/26/24 Unknown History Gel) magnesium hydroxide 400 mg/5 mL 30 ml PO ONCE PRN stomach upset 07/26/24 Unknown History oral suspension (Milk of Magnesia) diphenhydramine HCl 25 mg capsule 25 mg PO Q4H PRN allergy symptoms 09/05/24 Unknown History (Allergy (diphenhydramine)) montelukast 10 mg tablet 10 mg PO QHS allergies 09/05/24 Unknown History (Singulair) potassium chloride 20 mEq 20 meq PO DAILY PRN supplement 09/05/24 Unknown History tablet,extended release(part/cryst) (Klor-Con M) rosuvastatin 10 mg tablet (Crestor) 10 mg PO QHS cholesterol 09/05/24 Unknown History tamsulosin 0.4 mg capsule (Flomax) 0.4 mg PO DAILY prostate 09/05/24 Unknown History esomeprazole magnesium 40 mg 40 mg PO DAILY Supplement 09/06/24 Unknown History capsule,delayed release lidocaine 4 % topical patch 1 patch topical QDAY 09/20/24 Unknown History nitroglycerin 0.4 mg sublingual 0.4 mg sublingual Q5M PRN 09/20/24 Unknown History tablet amiodarone 200 mg tablet 100 mg (1/2 x 200 mg) PO QDAY #15 09/26/24 Unknown Rx tabs dimenhydrinate 50 mg tablet 50 mg PO .COMPLEX PRN nausea and 10/10/24 Unknown History (Dramamine) vomiting linaclotide 290 mcg capsule 290 mcg PO QAM stomach #90 caps 12/04/24 Unknown Rx (Linzess) simethicone 80 mg chewable tablet 80 mg PO 4-6XD PRN abdominal 12/04/24 Unknown Rx (Gas Relief (simethicone)) distention #60 tabs ascorbic acid (vitamin C) 500 mg 500 mg PO 1700 Supplement 02/27/25 Unknown History chewable tablet (Acerola C) hydrocodone-acetaminophen 5-325mg 1 tab PO Q8H pain 02/27/25 Unknown History 5mg-325mg buprenorphine 5 mcg/hour weekly 1 patch transdermal Q7D 03/14/25 Unknown History transdermal patch (Butrans) fluticasone propionate 50 1 spray intranasal BID #16 grams 03/25/25 Unknown Rx mcg/actuation nasal spray,suspension (Flonase Allergy Relief) fludrocortisone 0.1 mg tablet 0.1 mg PO QAM #30 tabs 04/22/25 Unknown Rx Allergy/AdvReac Type Severity Reaction Status Date / Time Environmental Allergies: Allergy Severe Anaphylaxis Verified 05/15/25 09:50 Uncoded pregabalin (From Lyrica) Allergy Severe Suicidal Verified 04/22/25 08:59 ideations prochlorperazine (From Allergy Severe hallucinati Verified 05/15/25 09:50 Compazine) ons metformin Allergy Unknown stomach Verified 05/15/25 09:50 cramping Sulfa (Sulfonamide Allergy Unknown unknown Verified 05/15/25 09:50 Antibiotics) ketorolac (From Toradol) Allergy Pain in Verified 05/15/25 09:50 joints doxycycline AdvReac Unknown Nausea/Vom/ Verified 05/15/25 09:50 Diarrhea Family History Other Cancer Diabetes Heart disease Surgical History H/O bilateral cataract extraction History of tonsillectomy History of total abdominal hysterectomy and bilateral salpingo-oophorectomy History of cholecystectomy History of colonoscopy History of appendectomy Hx of shoulder surgery Social History household members: none Smoking Status: Former smoker how long ago did patient quit smokin alcohol intake: former year quit: 1995 substance use type: former substance user Date of last use: 1969 ROS ROS ED ROS Narrative Exertional dyspnea. Denies fever or chills. Denies cough. Denies chest pain. Denies nausea, vomiting, diarrhea or melena. Constitutional Constitutional ED: Denies chills or fever(s) Eyes Eyes: Denies blurry vision ENT ENT ED: Denies ear pain Cardiovascular Cardiovascular: Denies chest pain Respiratory/Chest Respiratory/Chest: Reports dyspnea and dyspnea on exertion; Denies cough Gastrointestinal Gastrointestinal: Denies abdominal pain Genitourinary Genitourinary ED: Denies dysuria or hematuria Musculoskeletal Musculoskeletal: Denies arthralgias or back pain Integumentary Denies abscess or Abrasions Neurologic Neurologic: Denies headache(s) Psychiatric Psychiatric: Denies anxiety Endocrine Endocrinology: Denies cold intolerance Hematologic/Lymphatic Hematologic/Lymphatic: Reports none Allergic/Immunologic Allergic/Immunologic ED: Denies mouth swelling, tongue swelling or urticaria EXAM Physical Exam Narrative Exam Narrative: Well-appearing 75-year-old female. Vital signs are stable afebrile. She is in no acute distress. Initial blood pressure 07/05/1954 heart rate 76 and pulse ox 96% on room air. She is in no respiratory distress. Does not seem short of breath. H EENT exam pupils round react light. Moist mucous membranes. Neck nontender no JVD. Back nontender. Lungs clear to auscultation bilaterally. Heart is a normal rhythm in the 70s no murmur. Chest wall ribs nontender. Abdomen soft nontender. Moving all 4 extremities. 5/5 field marketing director strength. Dorsi plantarflexion intact. Trace edema at her ankles. Calves are nontender without cords. Neurologically she is awake alert. Answering questions following commands. No focal motor deficits. Const Vital Signs: 05/15/25 09:48 05/15/25 09:50 05/15/25 10:14 Temperature 98 F Temperature Source Oral Pulse Rate 76 Respiratory Rate 18 Respiratory Effort Short of Breath Respiratory Pattern Normal Blood Pressure 124/57 H Blood Pressure Mean 79 Pulse Ox 96 Oxygen Delivery Method Room Air Room Air 05/15/25 11:02 05/15/25 12:00 05/15/25 13:01 Temperature Temperature Source Pulse Rate 92 64 61 Respiratory Rate 9 L 18 Respiratory Effort Respiratory Pattern Blood Pressure 129/70 H 129/72 H 137/67 H Blood Pressure Mean 89 91 90 Pulse Ox 93 98 Oxygen Delivery Method MDM MDM MDM Narrative Medical decision making narrative: 75-year-old female with exertional dyspnea had near syncope today she did not actually pass out. She undergo cardiac workup with a BNP. This could be CHF versus pleural effusions versus anemia versus cardiac disease versus other etiologies. Her exam is benign and she has a normal pulse ox. Repeat exam around 11:10 AM patient doing well she is sitting upright in bed she is in no distress appears comfortable. We discussed her test results. She will be given oral potassium for potassium of 3.0. She is on potassium at home. She will be ambulated make sure her pulse ox does not walk and we will check a second troponin. If those are okay she will be discharged to home. Currently there is no significant signs of congestive heart failure or pleural effusions or any other cause for shortness of breath. Patient ambulated off oxygen her pulse ox stayed 90 to 93%. No distress. She walked well. Repeat exam around 1:53 PM patient I went over her test results she clinically looks well. She will be discharged home with outpatient follow-up. She is comfortable with plan. History & Record Review Discussion w/independent historian: Patient Additional record(s) reviewed:: Prior outpatient record, Prior ED visit and Prior labs Lab Data Attestation: I reviewed the patient's lab results. Lab results narrative: CBC unremarkable. White count 8. H&H 13 and 43. Platelets 224. Chemistries show potassium of 3.0. Patient is on Lasix. Gap 11. BUN and creatinine are normal at 15 and 0.7. Glucose 162. Initial troponin is 21. 2-hour troponin 16. BNP is only mildly elevated at 368. D-dimer is normal at 0.37 Labs: Laboratory Results - last 24 hr 05/15/25 05/15/25 10:00 12:28 WBC 8.3 RBC 4.69 Hgb 13.9 Hct 43.8 MCV 93.4 MCH 29.6 MCHC 31.7 L RDW Std Deviation 42.4 RDW Coeff of Dave 12.3 Plt Count 224 MPV 9.1 Immature Gran % (Auto) 0.500 Neut % (Auto) 74.1 H Lymph % (Auto) 15.4 L [place] % (Auto) 8.9 Eos % (Auto) 0.5 Baso % (Auto) 0.6 Absolute Neuts (auto) 6.1 Absolute Lymphs (auto) 1.27 Nucleated RBC % 0 D-Dimer Quant (PE/DVT) 0.37 Sodium 142 Potassium 3.0 L Chloride 99 Carbon Dioxide 31.9 Anion Gap 11 BUN 15 Creatinine 0.77 Estim Creat Clear Calc 60.63 Est GFR (MDRD) Non-Af 81 BUN/Creatinine Ratio 18.9 Glucose 162 H Calcium 9.5 Troponin T High Sens 21 H D Troponin T Hi Sens 2 Hr 16 H NT pro BNP II 368 Radiography Chest X-Ray - ED: 2 View, Read by ED Physician, Heart, Lungs, Mediastinum, Bony Structures, No Acute Disease and Chronic Changes Diagnostic Testing: Clinical Impression(s) from Imaging Studies Chest X-Ray 05/15/25 10:14 IMPRESSION: Negative chest x-ray. Reading Location: [facility] Chest x-ray, 2 views, AP and lateral, interpreted by myself shows normal cardiac silhouette. Normal mediastinum. Normal lung cunha. No CHF. No pneumonia. No effusions. Rhythm Strip Rhythm Strip: Sinus Rhythm Rate: 73 Ectopy: None EKG Initial EKG: Attestation: I personally reviewed and interpreted this EKG as follows: Interpretation: Sinus Rhythm and No Acute Injury Pattern Comments: Normal sinus rhythm rate of 63 no acute signs of NC or ischemia. No dysrhythmia. Discharge Plan Triage Chief Complaint: Syncope ED Provider: Nicolás Penn Dx/Rx/DC Orders Clinical Impression: Near syncope, History of atrial fibrillation, Chronic anticoagulation, History of diabetes mellitus Instructions: ED Near-Fainting, Uncertain Cause Prescriptions: No Action thyroid (pork) [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 Thyroid] 60 mg tablet 60 mg PO DAILY gabapentin 300 mg capsule 900 mg PO QHS gabapentin 300 mg capsule 600 mg PO Q8H Centrum Women 18-400 mg-mcg tablet 1 tab PO 1700 Excedrin Migraine 250-250-65 mg tablet 1 tab PO Q6H PRN (Reason: pain) trazodone 150 mg tablet 300 mg PO QHS dimenhydrinate [Dramamine] 50 mg tablet 50 mg PO .COMPLEX PRN (Reason: nausea and vomiting) Rx Instructions: 50 mg orally Q18 hours PRN; hydrocodone-acetaminophen 5-325 mg tablet 1 tab PO Q8H Patient Comments: TAKE 1 TABLET BY MOUTH TWICE DAILY FOR 28 DAYS albuterol sulfate [Ventolin HFA] 90 mcg/actuation HFA aerosol inhaler 2 puff inhalation Q4H PRN (Reason: shortness of breath or wheezing) Qty: 18 6RF Eliquis 5 mg tablet 5 mg PO BID Qty: 60 11RF furosemide [Lasix] 40 mg tablet 40 mg PO QDAY PRN (Reason: SOB, Edema) dextrose [Glucose Gel] 40 % gel 10 g PO Q15M PRN (Reason: hypoglycemia) Rx Instructions: until symptoms of low blood sugar are controlled magnesium hydroxide [Milk of Magnesia] 400 mg/5 mL suspension 30 ml PO ONCE PRN (Reason: stomach upset) alum-mag hydroxide-simeth 200-200-20 mg/5 mL suspension 30 ml PO Q4H PRN (Reason: dyspepsia) acetaminophen 325 mg tablet 650 mg PO Q4H PRN (Reason: fever or pain) glipizide 2.5 mg tablet extended release 24hr 2.5 mg PO QDAY ipratropium-albuterol 0.5 mg-3 mg(2.5 mg base)/3 mL solution for nebulization 3 ml inhalation Q6H PRN (Reason: shortness of breath or wheezing) Jardiance 25 mg tablet 25 mg PO QDAY magnesium oxide 400 mg magnesium tablet 400 mg PO QHS tizanidine 2 mg capsule 4 mg PO QHS Linzess 290 mcg capsule 290 mcg PO QAM Qty: 90 3RF simethicone [Gas Relief (simethicone)] 80 mg tablet,chewable 80 mg PO 4-6XD PRN (Reason: abdominal distention) Qty: 60 0RF lidocaine 4 % adhesive patch,medicated 1 patch topical QDAY nitroglycerin 0.4 mg tablet, sublingual 0.4 mg sublingual Q5M PRN Rx Instructions: do not exceed 3 doses per episode amiodarone 200 mg tablet 100 mg PO QDAY Qty: 15 11RF fludrocortisone 0.1 mg tablet 0.1 mg PO QAM Qty: 30 4RF fluticasone propionate [Flonase Allergy Relief] 50 mcg/actuation spray,suspension 1 spray intranasal BID Qty: 16 11RF Rx Instructions: administer into each nostril diphenhydramine HCl [Allergy (diphenhydramine)] 25 mg capsule 25 mg PO Q4H PRN (Reason: allergy symptoms) rosuvastatin [Crestor] 10 mg tablet 10 mg PO QHS tamsulosin [Flomax] 0.4 mg capsule 0.4 mg PO DAILY potassium chloride [Klor-Con M20] 20 mEq tablet,ER particles/crystals 20 meq PO DAILY PRN (Reason: supplement) Patient Comments: only when pt takes lasix. montelukast [Singulair] 10 mg tablet 10 mg PO QHS esomeprazole magnesium 40 mg capsule,delayed release(DR/EC) 40 mg PO DAILY ascorbic acid (vitamin C) [Acerola C] 500 mg tablet,chewable 500 mg PO 1700 buprenorphine [Butrans] 5 mcg/hour patch weekly 1 patch transdermal Q7D dicyclomine 20 mg tablet 20 mg PO BID Qty: 60 6RF Primary Care Provider: Dajuan Eric Referrals: Dajuan Eric MD [Primary Care Provider, Internal Medicine] - 3-5 Days Activity Restrictions/Additional Instructions: Your test look good. I do not have a specific cause for your symptoms. Call and follow-up with your primary care physician if not improving. Return if feeling worse. Print Language: Kyrgyz Disposition Disposition: Home, Self Care
[2025-05-15 10:13] LABS: Hematocrit 43.8 % (37-47); Hemoglobin 13.9 g/dL (12.0-15.0); Immature Granulocytes Count 0.040 X10^3/uL (0.0-0.0); Mean Corp Hgb Conc 31.7 g/dL (32-36); Mean Corpuscular Volume 93.4 fL (81-99); Mean Platelet Vol. 9.1 fl (6.2-12.0); NRBC Flagged by Analyzer 0 % (0-5); Platelet Count 224 K/mm3 (150-450); RBC Distribution Width CV 12.3 % (11.6-14.6); RBC Distribution Width SD 42.4 fl (35.1-43.9); Red Blood Count 4.69 M/mm3 (4.2-5.4); White Blood Count 8.3 K/mm3 (4.4-11.0)
--- NOTE | 2025-05-15 10:14 | RAD_ITS ---
PROCEDURE: CHEST PA AND LATERAL 05/15/2025 REASON FOR EXAM: CHEST PAIN TECHNIQUE: Procedure Code: RADCXR Modality: DX Procedure: CHEST PA AND LATERAL COMPARISON: None. FINDINGS: Hardware: Monitor electrodes overlie the chest. Heart: No cardiomegaly. Mediastinum: Unremarkable. Lungs: Clear. Bones: No acute bony abnormalities. RAD/Chest PA and Lateral IMPRESSION: Negative chest x-ray. Reading Location: [id number]
[2025-05-15 10:38] LABS: Anion Gap 11 (5-15); BUN 15 mg/dL (4-19); BUN/Creat Ratio 18.9 RATIO (10-20); Calcium,Total 9.5 mg/dL (7.6-11.0); Carbon Dioxide 31.9 mmol/L (21.0-32.0); Chloride 99 mmol/L (98-108); Estimated Creatinine Clearance 60.63 ml/min (50-250); Glucose 162 mg/dL (70-99); Potassium 3.0 mmol/L (3.3-5.1); Pro- Brain NATRIURETIC PEPTIDE 368 pg/mL (<=900); Troponin T High Sensitivity 21 ng/L (<=14)
[2025-05-15 11:02] VITALS: BP 129/70; PULSE 92; RESP 9; O2SAT 93
[2025-05-15 11:28] VITALS: O2SAT 93
[2025-05-15 12:00] VITALS: BP 129/72; PULSE 64; RESP 18
[2025-05-15 12:06] LABS: D-Dimer Quantitative (DVT/PE) 0.37 FEU/ug/m (0.27-0.49)
[2025-05-15 13:01] VITALS: BP 137/67; PULSE 61; O2SAT 98
[2025-05-15 13:11] LABS: Troponin T High Sens 2 HR 16 ng/L (<=14)
[2025-05-15 14:00] VITALS: BP 124/78; PULSE 78; RESP 18; TEMP 36.6; O2SAT 99
== END 2025-05-15 14:13 | disposition home or self-care (01) ==
PROVIDERS: Emergency Provider Emergency Medicine; PCP Internal Medicine; Visit Provider Emergency Medicine
DX: R55 Syncope and collapse (principal); I48.91 Unspecified atrial fibrillation; E11.9 Type 2 diabetes mellitus without complications; Z83.3 Family history of diabetes mellitus; I10 Essential (primary) hypertension; E78.5 Hyperlipidemia, unspecified; Z87.891 Personal history of nicotine dependence; Z90.710 Acquired absence of both cervix and uterus; Z90.49 Acquired absence of other specified parts of digestive tract; R06.00 Dyspnea, unspecified; Z79.01 Long term (current) use of anticoagulants; K21.9 Gastro-esophageal reflux disease without esophagitis; E03.9 Hypothyroidism, unspecified; Z99.89 Dependence on other enabling machines and devices; Z86.73 Personal history of transient ischemic attack (TIA), and cerebral infarction without residual deficits
CPT/HCPCS: 71046; 80048; 83880; 84484; 85025; 85379; 93005; 99284; A4216

== ENCOUNTER → 2025-05-21 | Outpatient (CLI) | payer MEDICARE, MEDICAID, SELFPAY ==
--- NOTE | 2025-05-21 12:40 | NEURO ---
NCS and/or EMG Patient Report Ordering Doctor: John Mills DATE OF SERVICE: 05/21/25 Ember presents with complaints of numbness and tingling in the feet. She reports a history of diabetes. Electrodiagnostic findings: Right peroneal motor nerve demonstrates normal distal latency with normal amplitude and conduction velocity. Left peroneal motor nerve demonstrates normal distal latency with borderline reduced amplitude and normal conduction velocity. Tibial motor response is within normal limits bilaterally. Normal peroneal and tibial F?waves. Normal H-reflex bilaterally. Sensory responses are within normal limits. Needle EMG testing was performed the lower limbs. All muscles tested showed no evidence of denervation with normal motor unit action potentials. Electrodiagnostic impression: This is a normal electrodiagnostic study of the lower limbs. There is no electrodiagnostic evidence for peripheral polyneuropathy or lumbosacral radiculopathy. Multi Select Codes Neurology Neurology Interp Codes: 71402-03 Musc test done w/n test comp (interp) (2) and 83238-61 Nrv cndj test 9-10 studies (interp)
== END | disposition home or self-care (01) ==
LOC: PSN 08:17
PROVIDERS: PCP Internal Medicine; Referring Provider Psychiatry & Neurology Neurology; Visit Provider Psychiatry & Neurology Neurology
DX: G57.93 Unspecified mononeuropathy of bilateral lower limbs (principal); G62.9 Polyneuropathy, unspecified
CPT/HCPCS: 95886; 95911